=== PATIENT | male | born 1955 | race Caucasian/White ===

== ENCOUNTER 2023-04-18 01:59 | Emergency (ER) | payer MEDICARE, BC, SELFPAY ==
[2023-04-18] VITALS (46 sets, daily range): BP systolic 96–263; BP diastolic 54–153; PULSE 64–107; RESP 8–27; TEMP 36.2; O2SAT 81–100
--- NOTE | 2023-04-18 01:45 | RT.EKG_ITS ---
APPROVED REPORT Exam: Resting ECG Reason for Exam: vomiting Patient Location: E HR:101 bpm ECG Measurements Heart Rate 101 AXIS MN 156 P -4 QRSd 182 QRS -51 QT 424 T -24 QTc 551 Conclusion Sinus tachycardia...rate> 99 Probable left atrial enlargement...P >50mS, <-0.10mV V1 RBBB and LAFB...QRSd >120mS, axis(-40,240) Inferior infarct, old...Q >35mS, II III aVF No ST segment or T wave abnormalities to suggest occlusive FL
[2023-04-18] MEDS: Labetalol 100 MG/20 ML VIAL 10 MG IVP ×2 (02:15→02:25)
--- NOTE | 2023-04-18 02:21 | W.ED.GENAD ---
Discharge Plan Disposition Patient Disposition: Transfer-Acute Inpatient Care Specific Acute Inpt Facility: [facility] Condition: Critical Discharge Details Clinical Impression: Hypertensive emergency, Endotracheally intubated, Vertigo, Intracranial bleed Primary Care Provider: None,None ED Provider: Nayana Garnica General Mode of arrival: ambulatory. Date/Time Provider Initiated Documentation: 04/18/23 02:10. Limitations to Documentation: no limitations. Information obtained by: patient and EMS. HPI Narrative: 67yo M denies prior medical history has not seen a doctor in years present via EMS for nausea, vomiting and vertigo. Normal when he went to bed. Woke up with the room spinning, vomiting, unable to walk. Mild headache. No chest pain, shortness of breath, LE edema, numbness, tingling, weakness, or other concerns. Related Data Allergies Allergy/AdvReac Type Severity Reaction Status Date / Time No Known Allergies Allergy Unverified 04/18/23 03:23 General Stated Complaint: Dizzy/Sync BRYN: 2 Review of Systems Narrative: see HPI Exam Narrative Exam Narrative: General: Alert, vomiting. Head: Normocephalic, atraumatic Neck: Trachea midline, ?Neck supple. ENT: ?MMM.? Cardiac: ?RRR, no murmurs appreciated Resp: No respiratory distress. CTAB. Abd: ?Soft, non-distended, nontender Extremities: ?No deformities.? No peripheral edema. Neuro: ? GCS 15.? PERRL.? EOMI. + nystagums. ? Fluent speech, no dysarthria. Motor- 5/5 strength symmetric bilateral upper extremities. 5/5 RLE. 3/5 LLE. Sensation- ?Intact to light touch and symmetric multiple dermatomes including upper and lower extremities Coordination- + dysmetria on finger to nose on right. CRANIAL NERVES: II: Pupils equal and reactive, III, IV, : EOM intact, no gaze preference or deviation, + nystagmus. V: normal sensation in V1, V2, and V3 segments bilaterally VII: no asymmetry, no nasolabial fold flattening VIII: normal hearing to speech IX, X: normal palatal elevation, no uvular deviation XI: 5/5 head turn and 5/5 shoulder shrug bilaterally XII: midline tongue protrusion Course Vital Signs Vital signs: Vital Signs Temperature 36.2 C L 04/18/23 02:09 Pulse 100 H 04/18/23 02:09 Respiratory Rate 20 04/18/23 02:09 Blood Pressure 230/140 H 04/18/23 02:09 Pulse Oximetry 100 04/18/23 02:09 Temperature 36.2 C L 04/18/23 02:09 Pulse 100 H 04/18/23 02:09 Respiratory Rate 20 04/18/23 02:09 Respiratory Effort Normal, Non-Labored 04/18/23 02:15 Blood Pressure 230/140 H 04/18/23 02:09 Pulse Oximetry 100 04/18/23 02:09 Oxygen Delivery Method Room Air 04/18/23 02:09 Oxygen Flow Rate 0 04/18/23 02:09 Procedures Intubation Time out performed: Yes sedative: other (propofol) Mg Given: 200 paralytic: Succinylcholine Mg Given: 150 Laryngoscope: fiberoptic video scope ET Tube Size: 8 Tube Secured Depth (cm): 22 Tube Secured Location: teeth Tube Placement Confirmation: visualized tube passing through cords, equal breath sounds bilaterally, no breath sounds over epigastrum and confirmation by capnometry Patient Tolerated Procedure: well Intubation Complications: hypoxia Additional Comments: 100mcg fentanyl and 150mg lidocaine given 3 minutes prior to intubation Medical Decision Making 67yo M denies prior medical history has not seen a doctor in years present via EMS for nausea, vomiting and vertigo. Normal when he went to bed at 9pm, no recent trauma. Neuro exam performed while nursing obtained IV access. Markedly hypertensive on arrival 230/140, dysmteria on right on exam with LLE weakness (patient reports this leg is weaker at baseline). High suspicion for posterior stroke; stroke alert activated. No CI for TPA aside from BP; given 10mg IV labatelol and taken to CT with 15 minutes of arrival accompanied by this physician. Plan to start cardene drip if necessary upon completion of CT. Non-con CT with large intracranial hemmoraghe on my view. Given additional 10mg IV labatelol while in CT. Imaging pushed to [facility] and [facility] consult called prior to CTA; pt then completed CTA within 30 minutes of arrival. BP remained unacceptably high, given 20mg IV nicardipene and started on gtt with good effect, BP subsequently at goal SBP <140. HOB maintained at [address] non-con discussed with [facility] reading radiologist; right cerebellar bleed, into ventricle causing moderate hydrocephalus. -Labs reviewed as below, CBC with no actionable abnormalities, CMP with K of 2.6 (IV repletion ordered), hyperglycemia with glucose 197 (suspect undiagnosed DM). Tropoonin 87. -EKG on arrival, no ST segment or T wave abnormalities to suggest occlusive FL. -Repeat neuro exam stable, continued dysmetria, remains alert. -CTA discussed with reading [facility] radiologist; no clear aneurysm identified. -Called [facility] to verify imaging successfully transferred, awaiting consult. 0330 Patient more somnolent but arousable to touch, follows commands, slightly slurred speech. GCS 13 (E3 V4 M6). PERRL. O2 sat high 80's on room air, placed on 2L NC with improvement to mid 90's/ 0340 Awaiting callback from [facility]; imaging pushed to [facility] and [facility] consult placed; awaiting callback. 0350 Discussed with neuro ICU and neurosurgery at [facility]; accepted. [facility] not flying 2/t wind; [facility] ground not available. [facility] agreed to take patient via ground. On reassessment patient more confused, does follow commands with much prompting (asking loudly 5-6 times) no longer oriented. GCS remains 13 however given clinical deterioration concerning for further worsening en route. I am concerned that he may require intubation en route; much safer to perform under controlled conditions in the ED. I do not believe he is stable for transport without intubation at this time; discussed with family at bedside and decision made to intubate. Pre-intubation neuro exam patient follow commands with aggressive prompting, confused, mildly agitated, PERRL, moving all 4 extremities. Lidocaine/fentanyl 3 minutes prior to intubation. Propofol/sux for induction, propofol post sedation. Brief desat to 78% during intubation, increased to 90+% within one minute. Post intubation CXR reviewed, appropriately placed ETT on my view. Initial vent settings 100%FIO2, PIP 22 PEEP 5 RR 12. Weaned off nicardipne and maintained BP & sedation with propofol. [facility] regarding change in [facility] condition[facility]. I discussed with at bedside severity of patient's condition, guarded prognoisis, and potential for deterioration, , and permanent deficits should he survive. Transported to [facility] via [employer]. Lab Data Lab results reviewed: Yes I reviewed the patient's lab results. Labs: Laboratory Tests Range/Units 04/18/23 02:10 WBC (4.4-10.8) 10^3/uL 12.53 H RBC (4.36-5.78) 10^6/uL 5.16 Hgb (13.5-17.5) g/dL 15.6 Hct (40.0-50.0) % 46.5 MCV (80-95) fL 90 MCH (27.0-33.0) pg 30.2 MCHC (32.0-36.0) % 33.5 RDW (11.8-14.1) % 13.2 Plt Count (130-400) 10^3/uL 215 MPV (8.0-11.0) fL 10.4 Immature Gran % 0.4 Neutrophils % 73.0 Lymphocytes % 16.4 Monocytes % 7.9 Eosinophils % 1.6 Basophils % 0.7 Nucleated RBC % (0.0-0.3) % 0.0 Absolute Neutrophils (1.2-6.7) 10^3/uL 9.15 H Absolute Lymphocytes (1.2-3.4) 10^3/uL 2.05 Absolute Monocytes (0.1-0.8) 10^3/uL 0.99 H Absolute Eosinophils (0.0-0.7) 10^3/uL 0.20 Absolute Basophils (0.0-0.2) 10^3/uL 0.09 APTT (23.6-32.8) sec 27.4 Sodium (136-145) mmol/L 138 Potassium (3.5-5.1) mmol/L 2.6 L* Chloride (98-107) mmol/L 98 Carbon Dioxide (21.0-32.0) mmol/L 28.0 Anion Gap (3-11) mmol/L 12.0 H BUN (7-18) mg/dL 14 Creatinine (0.70-1.30) mg/dL 1.2 Est GFR (CKD-EPI 2020) (mL/min/1.73m2) 67.11 Glucose (74-106) mg/dL 197 H Calcium (8.5-10.1) mg/dL 9.6 Total Bilirubin (0.2-1.0) mg/dL 0.5 AST (15-37) U/L 35 ALT (16-63) U/L 34 Alkaline Phosphatase (46-116) U/L 83 Total Protein (6.4-8.2) g/dL 9.5 H Albumin (3.4-5.0) g/dL 3.6 Ethyl Alcohol (<10) mg/dL 3.1 Quality:SDPA Health Related Social Needs: No Data to Display Critical Care Time Critical Care Time Critical Care Time: Yes Total Critical Care Time: 90 Attestation: Due to a high probability of clinically significant, life threatening deterioration, the patient required my highest level of preparedness to intervene emergently and I personally spent this critical care time directly and personally managing the patient. This critical care time included obtaining a history; examining the patient; pulse oximetry; ordering and review of studies; arranging urgent treatment with development of a management plan; evaluation of patient's response to treatment; frequent reassessment; and, discussions with other providers. This critical care time was performed to assess and manage the high probability of imminent, life-threatening deterioration that could result in multi-organ failure. It was exclusive of separately billable procedures [facility] All Active Problems (Updated 04/18/23 @ 05:25 by Nayana Garnica MD) Intracranial bleed (Acute) Vertigo (Acute) Endotracheally intubated (Acute) Hypertensive emergency (Acute) Social History Smoking/Tobacco Use Status: Never Smoking risk assessment performed?: Yes Alcohol Intake: current Alcohol Intake frequency: 3 or more drinks per day Alcohol type: beer and hard liquor Substance use type: does not use Housing: house
[2023-04-18 02:29] LABS: Abs Immature Grans 0.05 10^3/uL (0.0-0.06); Absolute Basophil Count 0.09 10^3/uL (0.0-0.2); Absolute Lymphocyte Count 2.05 10^3/uL (1.2-3.4); Absolute Monocyte Count 0.99 10^3/uL (0.1-0.8); Absolute Neutrophil Count 9.15 10^3/uL (1.2-6.7); Basophils % 0.7; Eosinophils % 1.6; HCT 46.5 % (40.0-50.0); HGB 15.6 g/dL (13.5-17.5); Immature Grans % 0.4; Lymphocytes % 16.4; MCH 30.2 pg (27.0-33.0); MCHC 33.5 % (32.0-36.0); MCV 90 fL (80-95); MPV 10.4 fL (8.0-11.0); Monocytes % 7.9; Platelet Count 215 10^3/uL (130-400); RBC 5.16 10^6/uL (4.36-5.78); RDW 13.2 % (11.8-14.1); WBC 12.53 10^3/uL (4.4-10.8)
[2023-04-18 02:34] LABS: ETHANOL BLOOD 3.1 mg/dL (<10)
[2023-04-18 02:37] LABS: ALT 34 U/L (16-63); AST 35 U/L (15-37); Albumin 3.6 g/dL (3.4-5.0); Alkaline Phosphatase 83 U/L (46-116); BUN 14 mg/dL (7-18); Bilirubin, Total 0.5 mg/dL (0.2-1.0); CREATININE 1.2 mg/dL (0.70-1.30); Calcium 9.6 mg/dL (8.5-10.1); Chloride 98 mmol/L (98-107); Estimated GFR 67.11 (mL/min/1.73m2); Glucose 197 mg/dL (74-106); Sodium 138 mmol/L (136-145); Total Protein 9.5 g/dL (6.4-8.2)
[2023-04-18 02:38] LABS: Potassium 2.6 mmol/L (3.5-5.1)
[2023-04-18 02:40] LABS: PTT Activated 27.4 sec (23.6-32.8)
[2023-04-18] MEDS: niCARdipine 25 MG in Normal Saline 240 ML 50 MG IV (02:45)
--- NOTE | 2023-04-18 02:50 | DI.[facility]AD_ITS ---
Addendum created by Kb Roach MD on 04/18/2023 2:51:30 AM EDT: THIS REPORT CONTAINS FINDINGS THAT MAY BE CRITICAL TO PATIENT CARE. The findings were verbally communicated via telephone conference with DOLORES BLACKWOOD at 2:51 AM EDT on 04/18/2023. The findings were acknowledged and understood. Initial report created on 04/18/2023 2:50:40 AM EDT: PROCEDURE INFORMATION: Exam: CT Head Without Contrast Exam date and time: 04/18/2023 2:18 AM Age: 67 years old Clinical indication: Stroke-like symptoms; Other: Veritgo n/v dysmetria lle weakness; Additional info: Patient moved during exam, best images possible TECHNIQUE: Imaging protocol: Computed tomography of the head without contrast. Radiation optimization: All CT scans at this facility use at least one of these dose optimization techniques: automated exposure control; mA and/or kV adjustment per patient size (includes targeted exams where dose is matched to clinical indication); or iterative reconstruction. Other technique: STROKE PROTOCOL was implemented. COMPARISON: No relevant prior studies available. FINDINGS: Brain: 2.5 cm acute intraparenchymal hematoma centered over the mid right cerebellar hemisphere. Moderate degree of acute intraventricular hemorrhage and acute hydrocephalus. No midline shift. Foster-white matter differentiation is preserved. Cerebral ventricles: See Brain finding. Paranasal sinuses: Unremarkable. No fluid levels. Mastoid air cells: Unremarkable. Bones/joints: No acute calvarial fracture. Soft tissues: Scalp soft tissues are unremarkable. IMPRESSION: 1. 2.5 cm acute intraparenchymal hematoma centered over the mid right cerebellar hemisphere. Recommend neurosurgery consultation. 2. Moderate degree of acute intraventricular hemorrhage and acute hydrocephalus. Dictated and Authenticated by: Kb Roach MD. Ordering:ANN MARIE Kraus MD
[2023-04-18] MEDS: Omnipaque 350 MG/ML 100 ML BTL IJ (02:56)
[2023-04-18] MEDS: POTASSIUM CHLORIDE 20 MEQ/100 ML BAG 50 MEQ IVPB (02:59)
[2023-04-18] MEDS: Normal Saline - Diluent 50 ML VIAL IJ (03:01)
[2023-04-18] MEDS: Normal Saline Flush 10 ML SYR IVP (03:03)
--- NOTE | 2023-04-18 03:04 | DI.CT_ITS ---
Exam(s) CT BRAIN NECK CTA EXAM: CT BRAIN NECK CTA CLINICAL HISTORY: veritgo N/V dysmetria LLE weakness. TECHNIQUE: Imaging Protocol: Axial CT angiography was performed with multi-slice acquisition and mu lti-planar and/or 3D reconstructions. CONTRAST MATERIAL: Intravenous: Omnipaque 350 Contrast volume:structured data in ml COMPARISON: No exams were available for comparison FINDINGS: CTA Neck W: Submitted images are of limited exam with inadequate arterial phase enhancement of the arteries. Del ayed phase acquisition was obtained. Interpretation below is therefore from delayed images Aortic arch anatomy: Cannot comment Anterior circulation: Cannot comment Posterior circulation: Can not comment on the vertebral arteries in the lower neck Both vertebral arteries appear to contribute to the formation of the basilar artery at the skull base . CTA Brain W: Anterior circulation: Both internal carotid arteries are patent in the skull base-carotid canals as well as within the cave rnous sinuses. The supraclinoid aspects of the ICAs are patent. Both A1 segments are patent as are the anterior cer ebral arteries and there is no evidence of obvious aneurysm at the level of the anterior communicatin g artery. Both middle cerebral arteries are patent with no evidence of significant stenosis nor intraluminal th rombus. There also no obvious aneurysms of these vessels. Posterior circulation: Basilar artery ascends with normal luminal diameter. Distally it terminates as patent posterior cerebral arteries. There is no evidence of obvious aneurysm at the tip of the basilar artery. CT BRAIN: As described on the noninfused study there is a 2.5 x 2.5 cm acute intracranial hemorrhage in the med ial aspect of the right cerebellar hemisphere with dissection of blood into the 4th ventricle, aquedu ct of Sylvius, 3rd ventricle, through the foramina of Monro and into the frontal horns of the lateral ventricles. There is symmetrical hydrocephalus. No shift of midline structures.. There are no ring enhancing lesions in the brain. There is no obvious vascular malformation. IMPRESSION: 1. Limited study due to suboptimal arterial bolus timing. 2. Acute right-sided cerebellar hemorrhage with dissection into the ventricular system and hydroceph alus 3. No obvious intracranial aneurysm nor obvious intracranial vascular malformation evident. First read by [facility]. RADIATION DOSE DELIVERED: Total DLP DATA REPOSITORY: All CT scans at this facility are submitted to the National Radiology Data Registry (NRDR) Dose Index Registry (DIR) with the [employer] (ACR). RADIATION OPTIMIZATION: All CT scans at this facility use at least one of these dose optimization te chniques: automated exposure control; mA and/or kV adjustment per patient size (includes targeted exa ms where dose is matched to clinical indication); or iterative reconstruction.
--- NOTE | 2023-04-18 03:05 | DI.CT_ITS ---
Exam(s) CT HEAD - STROKE PROTOCOL EXAM: CT HEAD - STROKE PROTOCOL CLINICAL HISTORY: veritgo N/V dysmetria LLE weakness. TECHNIQUE: Imaging Protocol: Axial computed tomography images with coronal and sagittal reformatted images were created and reviewed COMPARISON: No exams were available for comparison FINDINGS: There are no skull fractures. There is no significant fluid in the visualized paranasal sinuses. There is an area of acute hemorrhage in the medial aspect of the right cerebellar hemisphere which me asures 0.5 by 2.4 x 2.5 cm and which dissects into the adjacent 4th ventricle and is also seen within the aqueduct of Sylvius, 3rd ventricle and both lateral ventricles. There is mild symmetrical hydro cephalus. No shift of midline structures. IMPRESSION: Acute intra-axial hemorrhage in the right cerebellar hemisphere with dissection of blood into the ilsa tricular system with moderate amount of acute intraventricular hemorrhage and symmetrical hydrocephal us. First read by [facility]. RADIATION DOSE DELIVERED: Total DLP DATA REPOSITORY: All CT scans at this facility are submitted to the National Radiology Data Registry (NRDR) Dose Index Registry (DIR) with the [employer] (ACR). RADIATION OPTIMIZATION: All CT scans at this facility use at least one of these dose optimization te chniques: automated exposure control; mA and/or kV adjustment per patient size (includes targeted exa ms where dose is matched to clinical indication); or iterative reconstruction.
--- NOTE | 2023-04-18 03:40 | DI.VRAD_ITS ---
Addendum created by Bentley Panchal MD on 04/18/2023 3:39:57 AM EDT: THIS REPORT CONTAINS FINDINGS THAT MAY BE CRITICAL TO PATIENT CARE. The findings were verbally communicated via telephone conference with DOLORES BLACKWOOD at 3:28 AM EDT on 04/18/2023. The findings were acknowledged and understood. Initial report created on 04/18/2023 3:39:28 AM EDT: PROCEDURE INFORMATION: Exam: CTA Head Without And With Contrast, Arteriography Exam date and time: 04/18/2023 2:24 AM Age: 67 years old Clinical indication: Stroke-like symptoms; Other: Veritgo n/v dysmetria lle weakness; Additional info: Redid non con head under cta order due to motion on first non con per doctors request TECHNIQUE: Imaging protocol: Computed tomographic angiography of the head without and with contrast. Exam focused on the arteries. 3D rendering (Not supervised by radiologist): MIP and/or 3D reconstructed images were created by the technologist. Radiation optimization: All CT scans at this facility use at least one of these dose optimization techniques: automated exposure control; mA and/or kV adjustment per patient size (includes targeted exams where dose is matched to clinical indication); or iterative reconstruction. Contrast material: [id number]; Contrast volume: 85 ml; Contrast route: INTRAVENOUS (IV); Other technique: STROKE PROTOCOL was implemented. COMPARISON: CT HEAD - STROKE PROTOCOL 04/18/2023 2:18 AM FINDINGS: The anticipated arterial phase acquisition is limited, without early contrast opacification of the arteries. A prompt delayed phase acquisition is obtained, with some diagnostic information about the arteries available. An aneurysm is not observed. The anterior communicating artery site is well-visualized on coronal image 42 series 25, and is distant from the intracranial hemorrhage. There is no aneurysm identified at this site. The internal carotid artery termini appear intact, and no aneurysms are observed in the anterior circulation. Moderate plaque is observed in the distal internal carotid arteries. The basilar terminus appears intact, as visualized. The basilar terminus is from the hemorrhage in the 3rd ventricle/hypothalamus. See sales representative leather goods delayed coronal image 51 series 25. Moderate calcifications are present in the distal vertebral arteries bilaterally, and intracranial stenosis is likely. There is no evidence of aneurysm in the posterior circulation on the limited exam. Acute intracranial hemorrhage is present. The hemorrhage is similar to the earlier noncontrast head CT. The hemorrhage is primarily intraventricular, greatest in the 3rd and 4th ventricles, extending into the frontal horns of the lateral ventricles. There is minimal hemorrhage in the occipital horns of the lateral ventricles. The lateral ventricles are mildly distended. The hemorrhage involves the right cerebellar hemisphere; see axial image 43 series 19. Hemorrhage extends through the foramina of Luschka bilaterally. There is minimal subarachnoid hemorrhage. No hemorrhage is appreciated in the interpeduncular cistern. IMPRESSION: 1. Limited exam. 2. Acute intraventricular hemorrhage. 3. Hemorrhage involves the right cerebellum. 4. Early obstructive hydrocephalus. 5. Minimal subarachnoid hemorrhage. 6. No intracranial aneurysm observed. ASSESSMENT: ASPECTS (Isabel Stroke Program Early CT Score) is 10. PROCEDURE INFORMATION: Exam: CTA Neck Without And With Contrast Exam date and time: 04/18/2023 2:24 AM Age: 67 years old Clinical indication: Stroke-like symptoms; Other: Veritgo n/v dysmetria lle weakness; Additional info: Redid non con head under cta order due to motion on first non con per doctors request TECHNIQUE: Imaging protocol: Computed tomographic angiography of the neck without and with contrast. Exam focused on the cervical segments of the vasculature. 3D rendering (Not supervised by radiologist): MIP and/or 3D reconstructed images were created by the technologist. Radiation optimization: All CT scans at this facility use at least one of these dose optimization techniques: automated exposure control; mA and/or kV adjustment per patient size (includes targeted exams where dose is matched to clinical indication); or iterative reconstruction. Contrast material: [id number]; Contrast volume: 85 ml; Contrast route: INTRAVENOUS (IV); COMPARISON: CT HEAD - STROKE PROTOCOL 04/18/2023 2:18 AM FINDINGS: There is minimal arterial contrast, limiting evaluation of the carotid and vertebral arteries. Contrast reflux into the left internal and external jugular veins is observed. Severe stenosis at the left brachiocephalic vein is observed. The aortic arch is mildly aneurysmal, 4.9 cm. Moderate degenerative changes are present in the cervical spine. There is no anterolisthesis or retrolisthesis in the cervical spine. IMPRESSION: 1. Limited evaluation of the carotid and vertebral arteries in the neck. 2. Aneurysmal thoracic aorta. REFERENCES: NASCET CRITERIA. The degree of stenosis in the cervical segment of the internal carotid artery is based on NASCET criteria. Normal is no stenosis. Mild is less than 50% stenosis. Moderate is 50-69% stenosis. Severe is 70% to 99% stenosis. Total occlusion is no detectable patent lumen. Dictated and Authenticated by: Bentley Panchal MD. Ordering:ANN MARIE Kraus MD
[2023-04-18 03:42] LABS: Source Nasopharynx
[2023-04-18 03:53] LABS: Troponin I 87 ng/L (< or =60)
[2023-04-18 04:14] LABS: COVID-19 PCR Negative (Negative)
[2023-04-18] MEDS: fentaNYL 250 MCG/5 ML VIAL (04:15)
[2023-04-18] MEDS: Succinylcholine 100 MG/5 ML SYR 150 MG (04:18)
[2023-04-18] MEDS: Propofol 200 MG/20 ML VIAL (04:18)
[2023-04-18] MEDS: PROPOFOL 1,000 MG/100 ML BTL 10 MG (04:25)
[2023-04-18] MEDS: PROPOFOL 1,000 MG/100 ML BTL 15 MG (04:45)
--- NOTE | 2023-04-18 04:48 | DI.RAD_ITS ---
Exam(s) XR PORTABLE CHEST AP EXAM: XR PORTABLE CHEST AP CLINICAL HISTORY: post line. TECHNIQUE: 2D digital imaging was performed. COMPARISON: No exams were available for comparison FINDINGS: Single AP portable view. The distal tip of the endotracheal tube is above the nichole in satisfactory position. Heart size is upper normal. The mediastinum is not widened. There is infiltrate in left lower lobe-retrocardiac region. Platelike atelectasis in the mid right l ravin. No obvious pleural effusions.. IMPRESSION: Significant left lower lobe infiltrate. ET tube is in satisfactory position. DATA REPOSITORY: RADIATION DOSE DELIVERED:
--- NOTE | 2023-04-18 06:29 | DI.VRAD_ITS ---
PROCEDURE INFORMATION: Exam: XR Chest Exam date and time: 04/18/2023 4:41 AM Age: 67 years old Clinical indication: Device placement; Patient HX: Post line intubation TECHNIQUE: Imaging protocol: Radiologic exam of the chest. Views: 1 view. COMPARISON: No relevant prior studies are available for comparison. FINDINGS: Tubes, catheters and devices: Endotracheal tube terminates approximately 1.5 cm above the nichole. Lungs: Mild pulmonary vascular congestion. Low lung volumes with areas of atelectasis. Left retrocardiac opacity. Pleural spaces: No large pleural effusion seen. Heart/Mediastinum: Enlarged cardiac silhouette. Bones/joints: Grossly unremarkable. IMPRESSION: 1. Endotracheal tube as above. 2. Left retrocardiac opacity, may reflect atelectasis or infection. Follow-up as clinically warranted. 3. Additional findings as above. Dictated and Authenticated by: Yoly Ley MD. Ordering:ANN MARIE Kraus MD
--- NOTE | 2023-04-18 07:51 | NUR.NOTE ---
Accessed pt chart to check his medication orders for the Pharmacy. Nursing Note:
--- NOTE | 2023-04-18 08:35 | NUR.NOTE ---
Pt suffering a hemorrhagic stroke and deteriorating, RSI was requested and initiated by the provider, verbal orders given for Nicardipine boluses as well as Fentanyl Lidocaine propofol and succinylcholine, upon return from [place] [facility] the medication orders were not placedand can not be documented at this time, TICO
== END 2023-04-18 05:09 | disposition short-term general hospital (02) ==
PROVIDERS: Emergency Provider Student in an Organized Health Care Education/Training Program
DX: I16.1 Hypertensive emergency (principal); I10 Essential (primary) hypertension; I61.9 Nontraumatic intracerebral hemorrhage, unspecified; G91.8 Other hydrocephalus; R42 Dizziness and giddiness; Z11.52 Encounter for screening for COVID-19
CPT/HCPCS: 31500; 70496; 70498; 80053; 82962; 87635; 93005; 96365; 96366; 96375; 96376; 99291; 70450; 71045; 80320; 84484; 85025; 85730; 93010; J0330; J1920; J2003; J2404; J2704; J3010; J3480; J3490

== ENCOUNTER → 2023-06-28 10:00 | Outpatient (BNVA) | payer MEDICARE, BC, SELFPAY | PROVIDERS: PCP Student in an Organized Health Care Education/Training Program; Referring Provider Student in an Organized Health Care Education/Training Program; Visit Provider Nurse Practitioner Gerontology | DX: R33.8 Other retention of urine (principal) | CPT/HCPCS: 99215 ==

== ENCOUNTER → 2023-07-17 13:55 | Outpatient (BNVA) | payer MEDICARE, BC, SELFPAY | PROVIDERS: PCP Student in an Organized Health Care Education/Training Program; Referring Provider Student in an Organized Health Care Education/Training Program; Visit Provider Urology | DX: Z46.6 Encounter for fitting and adjustment of urinary device (principal); R33.8 Other retention of urine | CPT/HCPCS: 51702 ==

== ENCOUNTER 2023-08-11 14:19 | Emergency (ER) | payer MEDICARE, BC, SELFPAY ==
[2023-08-11 14:23] VITALS: BP 139/96; PULSE 95; RESP 18; TEMP 37; O2SAT 98
--- NOTE | 2023-08-11 14:45 | RT.EKG_ITS ---
APPROVED REPORT Exam: Resting ECG Reason for Exam: Agitation Patient Location: E HR:72 bpm ECG Measurements Heart Rate 72 AXIS DE 223 P -13 QRSd 172 QRS -5 QT 452 T -10 QTc 496 Conclusion Sinus rhythm...normal P axis, V-rate 60- 99 Prolonged DE interval...DE >220, V-rate 50- 90 Right bundle branch block...QRSd>120, terminal axis(90,270) Inferior infarct, old...Q >35mS, II III aVF normal sinus rhythm at a rate of 72 with right bundle branch block and left axis deviation?bifas cicular block. Left chest wall T wave inversions appear similar to prior dated earlier this year. N o acute injury pattern.
--- NOTE | 2023-08-11 14:53 | ED.GENADUL_ITS ---
Discharge Plan Disposition Patient Disposition: Home Discharge Details Clinical Impression: Agitation, Acute UTI Primary Care Provider: Brien Phillips ED Provider: Narciso Abraham Home Meds and New Rx's Prescriptions: New cefpodoxime 200 mg tablet 200 mg PO Q12H 10 Days Qty: 20 0RF Rx Instructions: must administer with a meal/food Continued meclizine 12.5 mg tablet 12.5 mg PO TID PRN melatonin 3 mg capsule 3 mg PO HS PRN trazodone 50 mg tablet 50 mg PO DAILY bisacodyl 10 mg suppository 10 mg IA DAILY PRN amlodipine 10 mg tablet 10 mg PO DAILY thiamine HCl (vitamin B1) 100 mg tablet 100 mg PO DAILY clonidine HCl 0.2 mg tablet 0.2 mg PO TID polyethylene glycol 3350 [Miralax] 17 gram/dose powder 17 g PO DAILY sennosides-docusate sodium [Senna with Docusate Sodium] 8.6-50 mg tablet 1 tab-cap PO BID aspirin [Adult Low Dose Aspirin] 81 mg tablet,delayed release (DR/EC) 81 mg PO DAILY fluoxetine 20 mg capsule 20 mg PO DAILY terazosin 1 mg capsule 1 mg PO BID ergocalciferol (vitamin D2) 1,250 mcg (50,000 unit) capsule 1,250 mcg PO QWEEK oxybutynin chloride 5 mg tablet 5 - 10 mg PO TID PRN (Reason: bladder spasms) Qty: 60 0RF Discharge Instructions Instructions: Urinary Tract Infection, Adult ED Additional Instructions: You were seen in the emergency department for your increased agitation. You are receiving a prescription for antibiotics that you should take as you are found to have a urinary tract infection. If you develop increased agitation fevers or if you have any other concerns please return to the emergency department. Otherwise please follow-up with your primary care provider. Discharge Data Discharge Date/Time-TO BE ENTERED AT DEPARTURE: 08/11/23 19:55 HPI General Date/Time Provider Initiated Documentation: 08/11/23 14:40 . HPI Narrative: MDM This is an agitated altered 67-year-old DNI DNR male with history of right cerebral intraparenchymal hemorrhage and descending aortic aneurysm concerning for recurrent intraparenchymal hemorrhage versus dissection versus arrhythmia. Will also assess for UTI with urinalysis. Patient's vitals are not consistent with sepsis so I did not order blood cultures check a lactate nor treat empirically with broad-spectrum antibiotics. UTI it is certainly a possibility so we will obtain urinalysis. No fevers to suggest encephalitis. No nuchal rigidity to suggest meningitis I do not feel that the patient requires a lumbar puncture. No tonic-clonic activity to suggest CVA. No vomiting to suggest acute electrolyte abnormalities. Patient is not currently drinking so my suspicion is low for Warnicke's encephalopathy. Not tachycardic nor hypotensive to suggest tamponade. Patient was markedly agitated at the time of his arrival in the emergency department. He received 5 mg of intramuscular haloperidol and 2 mg of intramuscular midazolam to facilitate evaluation. I had previously attempted to give him oral lorazepam which he spit out. He is on outpatient quetiapine. Patient became more calm and ECG was able to be obtained. 4:34 PM Patient metabolic panel showing OVI. No anion gap normal bicarbonate??not consistent with DKA. CBC with mild normocytic anemia. No leukocytosis. No thrombocytopenia negative troponin. Urinalysis with positive nitrites small leuk esterase consistent with UTI for which patient will receive 1 g of ceftriaxone. Creatinine from [facility] [place] July 31, 2023 was 1.72. As a result I am not concerned for OVI. I ordered the patient's quetiapine. 7:20 PM I spoke with Dr. Humble Gaviria from vascular at [facility]. She reviewed the patient's CT scan and reported that looked similar to prior. Neurology advised management of UTI. I met with the patient and his . reported that he was more calm and that she and he both wanted to be discharged. I advised that I spoke with Dr. Serrato who agreed to accept the patient for hospitalization. Patient and his withdrew consent for care and requested to be discharged. Patient had received her vaccine in the emergency department. Will provide 1 p.o. tablet of cefpodoxime for tomorrow and send with a prescription of cefpodoxime for 10 days. I advised patient and his to return for any fevers syncope or increased aggressive behavior. Patient was calm cooperative and reportedly at baseline per on reassessment. Chronic conditions affecting the care of the patient: Altered mental status History obtained from an outside historian: Patient's External record review: [facility] E[place] Diagnostic interpretations performed by me: Per my independent interpretation chest x-ray shows: Per my independent interpretation EKG shows: normal sinus rhythm at a rate of 72 with right bundle branch block and left axis deviation??bifascicular block. Left chest wall T wave inversions appear similar to prior dated earlier this year. No acute injury pattern. ]Medications: Haloperidol midazolam Social determinants of health affecting disposition: N/A Management discussed with: Dr. Serrato, vascular Treatment/interventions considered: Hospitalization but deferred based on patient preference Response to therapies provided: Improved agitation in the ED HPI This is a 67-year-old male with history of descending aortic aneurysm and intraparenchymal hemorrhage prior UTIs arrived to the emergency department with his via private vehicle in the setting of behavioral changes. Patient was hospitalized for 30 days this spring at [facility]. He has been home for approximately 1 month. In the past 4 days she has been increasingly agitated. He became delirious intermittently at [facility]. He takes 25 mg outpatient qu etiapine. His Rebolledo is due to be changed in 6 days. He does not participate in history gathering. reports that he generally is not aware of the year. Exam General: Chronically ill-appearing in no acute distress speaking in complete sentences. Head: Normocephalic, atraumatic. Eye:[Pupils equal, round reactive to light.] Extraocular eye movements intact. No conjunctival injection. No scleral icterus. Ear, nose, mouth, throat: Grossly normal inspection. Normal voice, handling secretions normally. Neck: Trachea midline. Cardiovascular: Well-perfused distal extremities. Respiratory: Nonlabored respiration. Gastrointestinal: Nondistended abdomen. Musculoskeletal: No edema. Moving all 4 extremities spontaneously. Skin: Normal for age and race, grossly normal temperature and turgor. No acute rash. Neurologic: Alert to person but not place or time. Does not participate in neurological assessment. Psychiatric: Intermittently agitated. Not cooperative with care. Related Data Home Medications Medication Instructions Recorded Confirmed amlodipine 10 mg tablet 10 mg PO DAILY 06/22/23 08/11/23 aspirin 81 mg tablet,delayed 81 mg PO DAILY 06/22/23 08/11/23 release (Adult Low Dose Aspirin) bisacodyl 10 mg rectal suppository 10 mg IA DAILY PRN 06/22/23 08/11/23 clonidine HCl 0.2 mg tablet 0.2 mg PO TID 06/22/23 08/11/23 ergocalciferol (vitamin D2) 1,250 1,250 mcg PO QWEEK 06/22/23 08/11/23 mcg (50,000 unit) capsule fluoxetine 20 mg capsule 20 mg PO DAILY 06/22/23 08/11/23 polyethylene glycol 3350 17 17 g PO DAILY 06/22/23 08/11/23 gram/dose oral powder (Miralax) sennosides 8.6 mg-docusate sodium 1 tab-cap PO BID 06/22/23 08/11/23 50 mg tablet (Senna with Docusate Sodium) terazosin 1 mg capsule 1 mg PO BID 06/22/23 08/11/23 thiamine HCl (vitamin B1) 100 mg 100 mg PO DAILY 06/22/23 08/11/23 tablet meclizine 12.5 mg tablet 12.5 mg PO TID PRN 06/28/23 08/11/23 melatonin 3 mg capsule 3 mg PO HS PRN 06/28/23 08/11/23 trazodone 50 mg tablet 50 mg PO DAILY 06/28/23 08/11/23 oxybutynin chloride 5 mg tablet 5 - 10 mg (1 - 2 x 5 mg) PO TID 07/28/23 08/11/23 PRN bladder spasms #60 tabs cefpodoxime 200 mg tablet 200 mg PO Q12H 10 days #20 tabs 08/11/23 Previous Rx's Medication Instructions Recorded oxybutynin chloride 5 mg tablet 5 - 10 mg (1 - 2 x 5 mg) PO TID 07/28/23 PRN bladder spasms #60 tabs cefpodoxime 200 mg tablet 200 mg PO Q12H 10 days #20 tabs 08/11/23 Allergies Allergy/AdvReac Type Severity Reaction Status Date / Time No Known Allergies Allergy Unverified 08/11/23 14:26 General Stated Complaint: Urinary BRYN: 3 Course Vital Signs Vital signs: Vital Signs Temperature 37.0 C 08/11/23 14:23 Pulse 95 H 08/11/23 14:23 Respiratory Rate 18 08/11/23 14:23 Blood Pressure 139/96 H 08/11/23 14:23 Pulse Oximetry 98 08/11/23 14:23 Temperature 37.0 C 08/11/23 14:23 Temperature Source Skin 08/11/23 14:23 Pulse 95 H 08/11/23 14:23 Respiratory Rate 18 08/11/23 14:23 Respiratory Effort Normal 08/11/23 14:26 Blood Pressure 139/96 H 08/11/23 14:23 Blood Pressure Position Sitting 08/11/23 14:23 Pulse Oximetry 98 08/11/23 14:23 Oxygen Delivery Method Room Air 08/11/23 14:23 Oxygen Flow Rate 0 08/11/23 14:23 Medical Decision Making Quality:SDOH Health Related Social Needs: No Data to Display PFSH All Active Problems (Updated 08/11/23 @ 19:41 by Brandon Serrato) CVA (cerebral vascular accident) (Chronic) Acute dehydration (Acute) Dementia with behavioral disturbance (Chronic) Acute UTI (Acute) Agitation (Acute) Urinary retention (Chronic) Social History Smoking/Tobacco Use Status: Never Smoking risk assessment performed?: Yes Alcohol Intake: current Alcohol Intake frequency: 3 or more drinks per day Alcohol type: beer and hard liquor Substance use type: does not use Housing: house
[2023-08-11] MEDS: Haloperidol 5 MG/ML VIAL IM (15:22)
[2023-08-11] MEDS: Midazolam 2 MG/2 ML VIAL IM (15:22)
[2023-08-11 15:46] VITALS: BP 139/96; PULSE 95; RESP 18; TEMP 37; O2SAT 98
[2023-08-11 15:59] LABS: Abs Immature Grans 0.02 10^3/uL (0.0-0.06); Absolute Basophil Count 0.05 10^3/uL (0.0-0.2); Absolute Eosinophil Count 0.22 10^3/uL (0.0-0.7); Absolute Lymphocyte Count 0.91 10^3/uL (1.2-3.4); Absolute Monocyte Count 0.77 10^3/uL (0.1-0.8); Absolute Neutrophil Count 4.51 10^3/uL (1.2-6.7); Basophils % 0.8 %; Eosinophils % 3.4 %; HCT 32.7 % (40.0-50.0); HGB 11.1 g/dL (13.5-17.5); Immature Grans % 0.3 %; MCH 31.4 pg (27.0-33.0); MCHC 33.9 % (32.0-36.0); MCV 92 fL (80-95); MPV 10.4 fL (8.0-11.0); Monocytes % 11.9 %; Neutrophils % 69.6 %; Platelet Count 206 10^3/uL (130-400); RBC 3.54 10^6/uL (4.36-5.78); RDW 12.9 % (11.8-14.1); RDW-SD 43.8 fL; WBC 6.48 10^3/uL (4.4-10.8)
[2023-08-11 16:09] LABS: Anion Gap 10.9 mmol/L (3-11); BUN 12 mg/dL (7-18); CO2 24.1 mmol/L (21.0-32.0); CREATININE 1.9 mg/dL (0.70-1.30); Calcium 9.3 mg/dL (8.5-10.1); Chloride 97 mmol/L (98-107); Estimated GFR 38.66 (mL/min/1.73m2); Glucose 108 mg/dL (74-106); Sodium 132 mmol/L (136-145)
[2023-08-11 16:20] LABS: Troponin I < 50 ng/L (< or =60)
[2023-08-11 16:31] LABS: Bilirubin Negative (Negative); Blood Trace-intact (Negative); Clarity Clear (Clear); Glucose Negative (Negative); Ketones Trace mg/dL (Negative); Leukocyte Esterase Small (Negative); Nitrite Positive (Negative); Specific Gravity 1.015 (1.005-1.025); Urobilinogen 0.2 mg/dL (Up to 0.2)
[2023-08-11 16:46] LABS: C & S Indicated? Yes; WBC >50 HPF (0-5)
[2023-08-11] MEDS: Omnipaque 350 MG/ML 100 ML BTL IJ (16:49)
[2023-08-11] MEDS: Normal Saline - Diluent 50 ML VIAL IJ (16:50)
--- NOTE | 2023-08-11 16:51 | DI.CT_ITS ---
Exam(s) CT HEAD WO EXAM: CT HEAD WO CLINICAL HISTORY: Agitation confusion. TECHNIQUE: Imaging Protocol: Axial computed tomography images with coronal and sagittal reformatted images were created and reviewed COMPARISON: CT CT HEAD - STROKE PROTOCOL from 04/18/[address] BRAIN NECK CTA from 04/18/2023 FINDINGS: Ventricles and Extra axial spaces: Normal in size and morphology for the patient's age. Hemorrhage: There has been complete resolution of the patient's prior intracranial hemorrhage. No ac [place] hemorrhage is identified. Cerebral parenchyma: There is an area of decreased attenuation in the high left parietal lobe in the midline. This may represent an area of encephalomalacia. There is no mass effect. Possibility of a n acute infarct should be considered. There are areas of decreased attenuation in the white matter c onsistent with chronic microvascular ischemic disease. Midline shift: None. Brainstem/Cerebellum: Normal. Calvarium: Normal. There is a right frontal madeline hole. Visualized Paranasal sinuses/Mastoids: There is a fluid level in the left maxillary sinus. There is a small fluid level in the right sphenoid sinus. There is opacification of a few ethmoid air cells. Soft Tissues: Unremarkable. IMPRESSION: 1. New area of decreased attenuation along the midline in the high posterior left parietal lobe. Thi s may represent an area of an acute infarct. MRI should be considered for further evaluation. 2. Areas of decreased attenuation in the white matter consistent with chronic microvascular ischemic disease. 3. Complete resolution of the patient's prior intracranial hemorrhage. There is a right frontal madeline hole in place. No acute hemorrhage is identified. 4. Fluid levels in the visualized paranasal sinuses suggesting acute sinusitis. Please correlate cli nically. RADIATION DOSE DELIVERED: 808.01mGy.cm Total DLP DATA REPOSITORY: All CT scans at this facility are submitted to the National Radiology Data Registry (NRDR) Dose Index Registry (DIR) with the [employer] (ACR). RADIATION OPTIMIZATION: All CT scans at this facility use at least one of these dose optimization te chniques: automated exposure control; mA and/or kV adjustment per patient size (includes targeted exa ms where dose is matched to clinical indication); or iterative reconstruction.
--- NOTE | 2023-08-11 16:53 | DI.CT_ITS ---
Exam(s) CT THORAX ABD/PEL CTA EXAM: CT THORAX ABD/PEL CTA CLINICAL HISTORY: History of dissection. TECHNIQUE: Imaging Protocol: Axial CT angiography was performed with multi-slice acquisition and m ulti-planar and/or 3D reconstructions. CONTRAST MATERIAL: Intravenous: Omnipaque 350 contrast volume:100 mL Oral: No COMPARISON: CT CT BRAIN NECK CTA from 04/18/2023 FINDINGS: The examination is limited due to patient motion artifact. CHEST: Tracheobronchial tree: Patent where visualized. Pulmonary parenchyma: No consolidation or dominant measurable mass. Atelectatic changes are seen in t he lung bases. No focal consolidating infiltrates are present. Pulmonary Arteries: Due to patient motion, segmental and subsegmental pulmonary artery opacification is compromised. No large central pulmonary embolism is seen. Mediastinum and Liset: No dominant adenopathy or fluid collection. The esophagus is unremarkable. Visualized thyroid: Unremarkable. Pleura: No effusion or pneumothorax. Heart: Cardiomegaly. Mild coronary artery calcification is present. No pericardial effusion. Aorta: There is a dissection beginning in the mid descending thoracic aorta and extending into the co mmon iliac arteries. The celiac axis, superior mesenteric artery and right renal arteries arise from the true lumen. The left renal artery arises from the false lumen. Distally the dissection extends into the proximal right external iliac artery. Likewise,, on the left, the dissection extends into the left external iliac artery. Soft Tissues: Unremarkable. Bones: Within normal limits for the patient's age. ABDOMEN AND PELVIS: Abdomen: Celiac axis/mesenteric arteries: No evidence of occlusion or significant stenosis. Renal Arteries: No evidence of occlusion or significant stenosis. The left renal artery arises from the false lumen of the dissection as described above. Aorta: There is a continuation of the dissection from the distal descending thoracic aorta extending inferiorly into the iliac arteries as described above. The infrarenal abdominal aorta measures 3 x 2.9 cm. Pelvis: Iliac Arteries: The dissection extends into the iliac arteries as described above. It extends into both external iliac arteries. There is 50 percent narrowing of the left external iliac artery. Common Femoral Arteries: No evidence of occlusion or significant stenosis. Atherosclerotic calcific ation is present. ABDOMEN: Liver: Normal density. No measurable mass. Gallbladder and Biliary Tract: No radiodense calculus or dilation. Pancreas: Normal density, no abnormal calcifications or inflammatory process. Spleen: Normal. Adrenals: No masses seen. Kidneys: Normal size, contour and axis. No radiodense stones or obstructive uropathy. There are bilat eral renal cysts. No follow-up is recommended. Bowel: No obstruction or bowel wall thickening. There is a moderate amount of stool in the colon sugg esting constipation. No evidence of appendicitis. Peritoneal Cavity: No ascites, collection or mesenteric inflammatory response. No free air. Lymph Nodes: Within normal limits. Bones: Within normal limits for the patient's age. There is L5 spondylolysis and grade 1 spondylolis thesis of L5 on S1. Soft Tissues: Unremarkable. PELVIS: Bladder: Diffuse thickening of the wall of the urinary bladder. There is a catheter in place. There is a small focus of air in the urinary bladder likely reflecting recent catheterization. Reproductive Organs: Unremarkable as visualized. Lymph Nodes: Within normal limits. Bones: Within normal limits for the patient's age. IMPRESSION: 1. 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 The left renal artery arises from the false lumen. The re is 50 percent narrowing of the lumen of the left external iliac artery. 2. Within the limits of the examination, there is no evidence of a pulmonary embolism. 3. Diffuse thickening of the wall of the urinary bladder. This may be due to cystitis, chronic bladd er outlet obstruction or neurogenic bladder. There is a Rebolledo catheter in place. This likely accoun ts for the small focus of air within the urinary bladder. 4. The findings were discussed with Georges Reed at 5:15 p.m. on 08/11/2023. RADIATION DOSE DELIVERED: 1,380.24mGy.cm Total DLP DATA REPOSITORY: All CT scans at this facility are submitted to the National Radiology Data Registry (NRDR) Dose Index Registry (DIR) with the [employer] (ACR). RADIATION OPTIMIZATION: All CT scans at this facility use at least one of these dose optimization te chniques: automated exposure control; mA and/or kV adjustment per patient size (includes targeted exa ms where dose is matched to clinical indication); or iterative reconstruction.
[2023-08-11] MEDS: cefTRIAXone 1 GM/50 ML BAG IVPB (17:11)
[2023-08-11] MEDS: QUEtiapine 25 MG TAB PO (17:49)
--- NOTE | 2023-08-11 19:30 | HPE_ITS ---
Date of service: 08/11/23 Time of Service: 19:30 Assessment and Plan Assessment and plan (1) Acute UTI: Start date: 08/11/23 Status: Acute (2) Dementia with behavioral disturbance: Status: Chronic (3) Urinary retention: Status: Chronic (4) Acute dehydration: Start date: 08/11/23 Status: Acute (5) CVA (cerebral vascular accident): Status: Chronic Qualifiers: CVA mechanism: occlusion Precerebral and cerebral artery: posterior cerebral artery Laterality of affected vessel: left Qualified Code(s): I63.532 - Cerebral infarction due to unspecified occlusion or stenosis of left posterior cerebral artery History of Present Illness History of Present Illness Chief Complaint: Increased confusion and agitation with chronic dementia Narrative: This is a 67-year-old male patient lives with his brought him to the ED because of increased agitation with dementia and multiple vascular medical problems which appear to be stable. He does not appear to be having seizures but is slightly dehydrated with creatinine elevated from his baseline. He did respond to alcohol and Versed on presentation for his acute agitation and chronically does take Seroquel. He does have a probable acute UTI by urinalysis and cultures have been performed with patient receiving IV Rocephin. He also is on IV hydration and will be kept overnight for evaluation and follow-up on abnormal labs as well as urine culture with antibiotics to be adjusted infection. He may need to increase Seroquel for his agitation or the elbow take oral therapy. He is a DNR/DNI. [facility] All Active Problems (Updated 08/11/23 @ 19:41 by Brandon Serrato) CVA (cerebral vascular accident) (Chronic) Acute dehydration (Acute) Dementia with behavioral disturbance (Chronic) Acute UTI (Acute) Agitation (Acute) Urinary retention (Chronic) Social History Smoking/Tobacco Use Status: Never Smoking risk assessment performed?: Yes Alcohol Intake: current Alcohol Intake frequency: 3 or more drinks per day Alcohol type: beer and hard liquor Substance use type: does not use Housing: house Meds Allergies and Home Medications Allergies Allergy/AdvReac Type Severity Reaction Status Date / Time No Known Allergies Allergy Unverified 08/11/23 14:26 Home Medications Medication Instructions Recorded Confirmed Type amlodipine 10 mg tablet 10 mg PO DAILY 06/22/23 08/11/23 History aspirin 81 mg tablet,delayed 81 mg PO DAILY 06/22/23 08/11/23 History release (Adult Low Dose Aspirin) bisacodyl 10 mg rectal suppository 10 mg MA DAILY PRN 06/22/23 08/11/23 History clonidine HCl 0.2 mg tablet 0.2 mg PO TID 06/22/23 08/11/23 History ergocalciferol (vitamin D2) 1,250 1,250 mcg PO QWEEK 06/22/23 08/11/23 History mcg (50,000 unit) capsule fluoxetine 20 mg capsule 20 mg PO DAILY 06/22/23 08/11/23 History polyethylene glycol 3350 17 17 g PO DAILY 06/22/23 08/11/23 History gram/dose oral powder (Miralax) sennosides 8.6 mg-docusate sodium 1 tab-cap PO BID 06/22/23 08/11/23 History 50 mg tablet (Senna with Docusate Sodium) terazosin 1 mg capsule 1 mg PO BID 06/22/23 08/11/23 History thiamine HCl (vitamin B1) 100 mg 100 mg PO DAILY 06/22/23 08/11/23 History tablet meclizine 12.5 mg tablet 12.5 mg PO TID PRN 06/28/23 08/11/23 History melatonin 3 mg capsule 3 mg PO HS PRN 06/28/23 08/11/23 History trazodone 50 mg tablet 50 mg PO DAILY 06/28/23 08/11/23 History oxybutynin chloride 5 mg tablet 5 - 10 mg (1 - 2 x 5 mg) PO TID 07/28/23 08/11/23 Rx PRN bladder spasms #60 tabs Results Imaging Imaging Studies: EXAM: CT THORAX ABD/PEL CTA CLINICAL HISTORY: History of dissection. TECHNIQUE: Imaging Protocol: Axial CT angiography was performed with multi- slice acquisition and multi-planar and/or 3D reconstructions. CONTRAST MATERIAL: Intravenous: Omnipaque 350 contrast volume:100 mL Oral: No COMPARISON: CT CT BRAIN NECK CTA from 04/18/2023 FINDINGS: The examination is limited due to patient motion artifact. CHEST: Tracheobronchial tree: Patent where visualized. Pulmonary parenchyma: No consolidation or dominant measurable mass. Atelectatic changes are seen in the lung bases. No focal consolidating infiltrates are present. Pulmonary Arteries: Due to patient motion, segmental and subsegmental pulmonary artery opacification is compromised. No large central pulmonary embolism is seen. Mediastinum and Liset: No dominant adenopathy or fluid collection. The esophagus is unremarkable. Visualized thyroid: Unremarkable. Pleura: No effusion or pneumothorax. Heart: Cardiomegaly. Mild coronary artery calcification is present. No pericardial effusion. Aorta: There is a dissection beginning in the mid descending thoracic aorta and extending into the common iliac arteries. The celiac axis, superior mesenteric artery and right renal arteries arise from the true lumen. The left renal artery arises from the false lumen. Distally the dissection extends into the proximal right external iliac artery. Likewise,, on the left, the dissection extends into the left external iliac artery. Soft Tissues: Unremarkable. Bones: Within normal limits for the patient's age. ABDOMEN AND PELVIS: Abdomen: Celiac axis/mesenteric arteries: No evidence of occlusion or significant stenosis. Renal Arteries: No evidence of occlusion or significant stenosis. The left renal artery arises from the false lumen of the dissection as described above. Aorta: There is a continuation of the dissection from the distal descending thoracic aorta extending inferiorly into the iliac arteries as described above. The infrarenal abdominal aorta measures 3 x 2.9 cm. Pelvis: Iliac Arteries: The dissection extends into the iliac arteries as described above. It extends into both external iliac arteries. There is 50 percent narrowing of the left external iliac artery. Common Femoral Arteries: No evidence of occlusion or significant stenosis. Atherosclerotic calcification is present. ABDOMEN: Liver: Normal density. No measurable mass. Gallbladder and Biliary Tract: No radiodense calculus or dilation. Pancreas: Normal density, no abnormal calcifications or inflammatory process. Spleen: Normal. Adrenals: No masses seen. Kidneys: Normal size, contour and axis. No radiodense stones or obstructive uropathy. There are bilateral renal cysts. No follow-up is recommended. Bowel: No obstruction or bowel wall thickening. There is a moderate amount of stool in the colon suggesting constipation. No evidence of appendicitis. Peritoneal Cavity: No ascites, collection or mesenteric inflammatory response. No free air. Lymph Nodes: Within normal limits. Bones: Within normal limits for the patient's age. There is L5 spondylolysis and grade 1 spondylolisthesis of L5 on S1. Soft Tissues: Unremarkable. PELVIS: Bladder: Diffuse thickening of the wall of the urinary bladder. There is a catheter in place. There is a small focus of air in the urinary bladder likely reflecting recent catheterization. Reproductive Organs: Unremarkable as visualized. Lymph Nodes: Within normal limits. Bones: Within normal limits for the patient's age. IMPRESSION: 1. 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 The left renal artery arises from the false lumen. There is 50 percent narrowing of the lumen of the left external iliac artery. 2. Within the limits of the examination, there is no evidence of a pulmonary embolism. 3. Diffuse thickening of the wall of the urinary bladder. This may be due to cystitis, chronic bladder outlet obstruction or neurogenic bladder. There is a Rebolledo catheter in place. This likely accounts for the small focus of air within the urinary bladder. EXAM: CT HEAD WO CLINICAL HISTORY: Agitation confusion. TECHNIQUE: Imaging Protocol: Axial computed tomography images with coronal and sagittal reformatted images were created and reviewed COMPARISON: CT CT HEAD - STROKE PROTOCOL from 04/18/[address] BRAIN NECK CTA from 04/18/2023 FINDINGS: Ventricles and Extra axial spaces: Normal in size and morphology for the patient's age. Hemorrhage: There has been complete resolution of the patient's prior intracranial hemorrhage. No acute hemorrhage is identified. Cerebral parenchyma: There is an area of decreased attenuation in the high left parietal lobe in the midline. This may represent an area of encephalomalacia. There is no mass effect. Possibility of an acute infarct should be considered. There are areas of decreased attenuation in the white matter consistent with chronic microvascular ischemic disease. Midline shift: None. Brainstem/Cerebellum: Normal. Calvarium: Normal. There is a right frontal madeline hole. Visualized Paranasal sinuses/Mastoids: There is a fluid level in the left maxillary sinus. There is a small fluid level in the right sphenoid sinus. There is opacification of a few ethmoid air cells. Soft Tissues: Unremarkable. IMPRESSION: 1. New area of decreased attenuation along the midline in the high posterior left parietal lobe. This may represent an area of an acute infarct. MRI should be considered for further evaluation. 2. Areas of decreased attenuation in the white matter consistent with chronic microvascular ischemic disease. 3. Complete resolution of the patient's prior intracranial hemorrhage. There is a right frontal madeline hole in place. No acute hemorrhage is identified. 4. Fluid levels in the visualized paranasal sinuses suggesting acute sinusitis. Please correlate clinically. Labs 08/11/23 15:55 08/11/23 15:55 Labs: Laboratory Results - last 24 hr 08/11/23 08/11/23 15:55 16:15 WBC 6.48 RBC 3.54 L Hgb 11.1 L Hct 32.7 L MCV 92 MCH 31.4 MCHC 33.9 RDW 12.9 Plt Count 206 MPV 10.4 Immature Gran % 0.3 Neutrophils % 69.6 Lymphocytes % 14.0 Monocytes % 11.9 Eosinophils % 3.4 Basophils % 0.8 Nucleated RBC % 0.0 Absolute Neutrophils 4.51 Absolute Lymphocytes 0.91 L Absolute Monocytes 0.77 Absolute Eosinophils 0.22 Absolute Basophils 0.05 Sodium 132 L Potassium 4.0 Chloride 97 L Carbon Dioxide 24.1 Anion Gap 10.9 BUN 12 Creatinine 1.9 H Est GFR (CKD-EPI 2020) 38.66 Glucose 108 H Calcium 9.3 Troponin I < 50 Urine Color Yellow Urine Clarity Clear Urine pH 6.0 Ur Specific Johnson 1.015 Urine Protein Trace Urine Ketones Trace H Urine Blood Trace-intact H Urine Nitrite Positive H Urine Bilirubin Negative Urine Urobilinogen 0.2 Ur Leukocyte Esterase Small H Urine RBC Not Applicable Urine WBC >50 H Ur Epithelial Cells Not Applicable Urine Crystals Not Applicable Urine Bacteria Not Applicable Urine Mucus Not Applicable Ur Culture Indicated? Yes Urine Glucose Negative Last Vital Signs Temp 37.0 C 08/11/23 15:46 Pulse 95 H 08/11/23 15:46 Resp 18 08/11/23 15:46 BP 139/96 H 08/11/23 15:46 Pulse Ox 98 08/11/23 15:46
[2023-08-11] MEDS: Cefpodoxime 200 MG TAB PO (19:54)
[2023-08-11 19:55] VITALS: BP 139/96; PULSE 95; RESP 18; TEMP 37; O2SAT 98
[2023-08-11 20:18] LABS: TSH (W/Ref FT4) 2.42 uIU/mL (0.36-3.74)
--- NOTE | 2023-08-14 08:17 | PT.INNT ---
PT Notes Visit Reasons: Possible UTI Patient admitted to the ED night of 08/11/2023 and was discharged same night. NO PT services were rendered during this episode of care.
== END 2023-08-11 19:55 | disposition home or self-care (01) ==
PROVIDERS: Family Medicine; Emergency Provider Emergency Medicine; PCP Student in an Organized Health Care Education/Training Program
DX: N39.0 Urinary tract infection, site not specified (principal); R41.82 Altered mental status, unspecified; R45.1 Restlessness and agitation; Z66 Do not resuscitate; Z86.73 Personal history of transient ischemic attack (TIA), and cerebral infarction without residual deficits
CPT/HCPCS: 36415; 71275; 80048; 87077; 93005; 96365; 96372; 99285; 70450; 74174; 81003; 81015; 84443; 84484; 85025; 87086; 87186; 93010; J0696; J1630; J2250; J3490

== ENCOUNTER → 2023-08-24 13:28 | Outpatient (BNVA) | payer MEDICARE, BC, SELFPAY | PROVIDERS: PCP Student in an Organized Health Care Education/Training Program; Visit Provider Urology | DX: Z46.6 Encounter for fitting and adjustment of urinary device (principal); R33.8 Other retention of urine | CPT/HCPCS: 51702 ==

== ENCOUNTER → 2023-09-25 09:58 | Outpatient (BNVA) | payer MEDICARE, BC, SELFPAY | PROVIDERS: PCP Student in an Organized Health Care Education/Training Program; Visit Provider Nurse Practitioner Gerontology | DX: R33.8 Other retention of urine (principal) | CPT/HCPCS: 51702 ==

== ENCOUNTER 2023-09-25 16:21 | Outpatient (REF) | payer MEDICARE, SELFPAY ==
[2023-09-25 16:20] LABS: Bilirubin Negative (Negative); Blood Moderate (Negative); Clarity Turbid (Clear); Glucose Negative (Negative); Ketones Negative (Negative); Leukocyte Esterase Small (Negative); Nitrite Positive (Negative); Specific Gravity 1.025 (1.005-1.025); Urobilinogen 0.2 mg/dL (Up to 0.2)
--- OUTSIDE RECORDS SUMMARY | 2023-09-25 16:23 | XMS_ITS | Encounter Summary ---
[place] [address] Care Team Providers Care Finisher Fine Diamond Dies Name Role Phone Brien Phillips Primary Care Provider + Reason for Referral * Consultation (Routine) - Denied Specialty Diagnoses / Procedures Referred By Contgaviota t Referred To [facility] Diagnoses Unilateral primary osteoarthritis, left hip Brien Phillips PA [address] [place] [address] [facility] [place] [address] Referral ID Status Reason Start Date Expiration Date V isits Requested Visits Authorized [id number] Denied Consult, Test & Treat PCP Updated and/or Approved 08/22/2023 08/20/2024 6 0 Encounter Details Date Type Department Care Team (Late st Contact Info) Description 08/31/2023 Transcribe Orders eDH Incoming Referrals [phone] Brien Phillips PA [address] [place], [place] [id number] Unilateral primary osteoarthritis, left hip Social History Tobacco Use Types Packs/Day Years Used Date Smoking Tobacco: Unknown Alcohol Use Standard Drinks/Week Comments Defer 0 (1 standard drink = 0.6 oz pur e alcohol) [facility] Utilities Answer Date Recorded In the past 12 months has th e electric, gas, oil, or water company threatened to shut off services in your home? No 04/20/2023 Hunger Vital Sign Answer Date Recorded Within the past 12 months, y ou worried that your food would run out before you got the money to buy more. Never true 04/20/19 24 Within the past 12 months, t he food you bought just didn't last and you didn't have money to get more. Never true 04/20/2023 PRAPARE - Transportation Answer Date Re corded In the past 12 months, has l ack of transportation kept you from medical appointments or from getting medications? No 04/06 In the past 12 months, has l ack of transportation kept you from meetings, work, or from getting things needed for daily living? No 04/20/2023 Housing Stability Vital Sign Answer Sloan e Recorded In the last 12 months, was t here a time when you were not able to pay the mortgage or rent on time? No 04/20/2023 Number of Places Lived in the Last Year Not on f ile 04/20/2023 In the last 12 months, was t here a time when you did not have a steady place to sleep or slept in a longterm (including now)? No 04/20/2023 Sex and Gender Information Value Date Recorded Sex Assigned at Not on file Gender Identity Not on file Sexual Orientation Not on file documented as of this encounter Plan of Treatment Upcoming Encounters Date Type Department Care Team (Late st Contact Info) Description 10/11/2023 8:00 AM EDT [place] [address] Edna Byrd, [facility] [place] [address] 10/25/2023 11:20 AM EDT Office [place] [phone] Priscilla Blackwell, [facility] [place] [address] Scheduled Referrals Name Type Priority Associated Diagnoses Order Schedule Referral to Pain Management Outpatient Referral Routine Unilateral primary osteoarthritis, left hip Ordered: 08/31/2023 documented as of this encounter Visit Diagnoses Diagnosis Unilateral primary osteoarthritis, left hip documented in this encounter Care Teams Finisher Fine Diamond Dies Relationship Specialty Start Date End Date Brien Phillips PA [address] [place] [address] PCP - General Internal Medicine 08/31/23 documented as of this encounter
--- OUTSIDE RECORDS SUMMARY | 2023-09-25 16:23 | XMS_ITS | Encounter Summary ---
Author Organization [facility] [place] [address] Care Team Providers Care Pediatric Physical Therapist Name Role Phone Fransico Remy MD Primary Care Provider [phone] Encounter Details Date Type Department Care Team (Late st Contact Info) Description 06/21/2023 Orders [place] [phone] Delilah Lyons, RN Dissection of thoracoabdominal aortic aneurysm (TAAA) Social History Tobacco Use Types Packs/Day Years Used Date Smoking Tobacco: Unknown Alcohol Use Standard Drinks/Week Comments Defer 0 (1 standard drink = 0.6 oz pur e alcohol) [facility] Utilities Answer Date Recorded In the [...] place to sleep or slept in a prison (including now)? No 04/20/2023 Sex and Gender Information Value Date Recorded Sex Assigned at Not on file Gender Identity Not on file Sexual Orientation Not on file documented as of this encounter Plan of Treatment Upcoming Encounters Date Type Department Care Team (Late st Contact Info) Description 10/11/2023 8:00 AM EDT [place] [phone] Edna Byrd, [facility] [place] [address] 10/25/2023 11:20 AM EDT Office [place] [phone] Priscilla Blackwell, [facility] [place] [address] documented as of this encounter Results * (ABNORMAL) Creatinine (07/31/2023 1:08 PM EDT) Creatinine 1.72(H) 0.80 - 1.50 mg/dL [facility] Est Glomerular Filtration Rate 44(L) >=60 mL/min/1. 73 m?? [facility] Comment: This patient's estimated GFR was calculated using the 2020 CKD-EPI equation. The estimated GFR can vary from the measured GFR by up to 30% in the absence of rapidly changing kidney function. Assessment of the estimated GFR is not appropriate when creatinine concentrations are rapidly changing. For clinical situations in which a more precise estimate of GFR is necessary, consider alternative methods of GFR estimation such as a 24-hour urine creatinine clearance. Assignment of CKD stage 1-5 for patients with an eGFR near the transition point between stages may be based on clinical assessment of muscle mass and symptoms in addition to eGFR. Blood 07/31/2023 1:08 PM EDT 07/31/2023 1:25 PM EDT Narrative Resulting Agency Comment Spec In Lab Arina Segovia APRN CHEMISTRY ORDERABLES [facility] [place] [address] documented in this encounter Visit Diagnoses Diagnosis Dissection of thoracoabdominal aortic aneurysm (TAAA) documented in this encounter Care Teams Pediatric Physical Therapist Relationship Specialty Start Date End Date Fransico Remy MD [address] [place] [address] PCP - General Emergency Medicine 04/18/23 08/30/23 documented as of this encounter
--- OUTSIDE RECORDS SUMMARY | 2023-09-25 16:23 | XMS_ITS | Encounter Summary ---
Author Organization [facility] [place] [address] Care Team Providers Care Chamber Worker Name Role Phone Fransico Remy MD Primary Care Provider [phone] Encounter Details Date Type Department Care Team (Latest Contact Info) Description 07/31/2023 1:15 PM EDT Laboratory Appointment Lab [address] [place] [phone] Dissection of thoracoabdominal aortic aneurysm (TAAA) Social History Tobacco Use Types Packs/Day Years Used Date Smoking Tobacco: Unknown Alcohol Use Standard Drinks/Week Comments Defer 0 (1 standard drink = 0.6 oz pur e alcohol) [facility] Utilities Answer Date Recorded In the past 12 months has e electric, gas, oil, or water company [...] place to sleep or slept in a assisted (including now)? No 04/20/2023 Sex and Gender Information Value Date Recorded Sex Assigned at Not on file Gender Identity Not on file Sexual Orientation Not on file documented as of this encounter Plan of Treatment Upcoming Encounters Date Type Department Care Team (Late st Contact Info) Description 10/11/2023 8:00 AM EDT Office [place] [phone] Edna Byrd, [facility] [place] [address] 10/25/2023 11:20 AM EDT Office [place] [phone] Priscilla Blackwell, [facility] [place] [address] documented as of this encounter Procedures Procedure Name Priority Date/Time Associated Diagnosis Comments CREATININE STAT 07/31/2023 1:08 PM EDT Dissection of thoracoabdominal aortic aneurysm (TAAA) documented in this encounter Results * (ABNORMAL) Creatinine (07/31/2023 [...] APRN CHEMISTRY ORDERABLES [facility] [place] [address] documented in this encounter Visit Diagnoses Diagnosis Dissection of thoracoabdominal aortic aneurysm (TAAA) documented in this encounter Care Teams Chamber Worker Relationship Specialty Start Date End Date Fransico Remy MD [address] [place] [id number] PCP - General Emergency Medicine 04/18/23 08/30/23 documented as of this encounter
--- OUTSIDE RECORDS SUMMARY | 2023-09-25 16:23 | XMS_ITS | Continuity of Care Document ---
Author Organization [facility] Address [address] [place] [id number] Care Team Providers Care Family Support Worker Name Role Phone JEAN BORJA Primary Care Physician Encounter [facility] NBR [id number] Date(s): 09/14/23 - 09/14/[address] [address] [place] Encounter Diagnosis Pain in left knee(Final) - Discharge Disposition: Home or Self Care Attending Physician: JEAN BORJA Admitting Physician: JEAN BORJA Referring Physician: JEAN BORJA Results Radiology Reports * Exam Date Time Procedure Performing Provider Status 09/14/23 8:35 AM XR Knee 3 Views Left [facility] Notes: (XR Knee 3 Views Left) Reason For Exam: pain in left knee XR Knee 3 Views Left EXAM DESCRIPTION: XR Knee 3 Views Left 09/14/2023 INDICATION: PAIN IN LEFT KNEE COMPARISON: None IMPRESSION: No acute fracture or dislocation No significant arthritic changes. Joint spaces are relatively well maintained No focal lytic or sclerotic lesion. JOB #: [id number] Final Signed by: Mick Farrar MD Signed (Electronic Signature): 09/14/2023 8:49 am Patient Care team information Care Team Personnel Name: JEAN BORJA Position: No Access Member Role: Primary Care Physician Address: Address: [address] [address]
--- OUTSIDE RECORDS SUMMARY | 2023-09-25 16:23 | XMS_ITS | Encounter Summary ---
Author Organization [facility] Address [facility] [place] [address] Care Team Providers Care Medical Physics Teacher Name Role Phone Fransico Remy MD Primary Care Provider [phone] Encounter Details Date Type Department Care Team (Late st Contact Info) Description 07/06/2023 Telephone [place] [phone] Gail Singh MD [facility] [address] Social History Tobacco Use Types Packs/Day Years Used Date Smoking Tobacco: Unknown Alcohol Use Standard Drinks/Week Comments Defer 0 (1 standard drink = 0.6 oz pur e alcohol) [facility] Utilities Answer Date Recorded In the past 12 months has e [employer], gas, oil, or water [employer] threatened to shut off services in your [...] place to sleep or slept in a residential (including now)? No 04/20/2023 Sex and Gender Information Value Date Recorded Sex Assigned at Not on file Gender Identity Not on file Sexual Orientation Not on file documented as of this encounter Miscellaneous Notes * Telephone Encounter - Michelle Rabago COT - 07/06/2023 9:27 AM EDT called back and pt has an appt with Dr Szymanski on 07/09 and asked that we fax note to [phone] Faxed * Telephone Encounter - Michelle Rabago COT - 07/06/2023 8:46 AM EDT Called to let patient know that BBS is sick and cannot see today. Offered to reschedule or advised they could be seen by local eye provider. stated pt has not seen an eye provider in 20+ yrs. was told by DOMINICK that pt needed to see specialist BBS before seeing reg eye provider. Explained that BBS is an tailer out and can recommend prisms but cannot write rx so Melania would needto see eye provider in order to get glasses. Suggested they reach out to [facility] to establish care and we would keep appt with BBS for 07/12 in case they wanted him seen here and/or if they cannot see soon. /pt will call and advise if they want notes faxed to office once they have made an appt. documented in this encounter Plan of Treatment Upcoming Encounters Date Type Department Care Team (Late st Contact Info) Description 10/11/2023 8:00 AM EDT Office [place] [address] Edna Byrd, [facility] [address] 10/25/2023 11:20 AM EDT Office [place] [phone] Priscilla Blackwell, [facility] [place] [address] documented as of this encounter Visit Diagnoses Not on filedocumented in this encounter Care Teams Medical Physics Teacher Relationship Specialty Start Date End Date Fransico Remy MD [address] [place] [address] PCP - General Emergency Medicine 04/18/23 08/30/23 documented as of this encounter
--- OUTSIDE RECORDS SUMMARY | 2023-09-25 16:23 | XMS_ITS | Encounter Summary ---
Author Organization [facility] Address [facility] [place] [address] Care Team Providers Care Coffee Roaster Name Role Phone Fransico Remy MD Primary Care Provider [phone] Reason for Referral * Diagnostic Test (Routine) - Closed Specialty Diagnoses / Procedures Referred By Contac t Referred To Contact Radiology Diagnoses Dissection of aorta, unspecified portion of aorta Procedures CT Angiogram Chest Abdomen Pelvis w Contrast Narayan Alvarez MD [facility] [place] [address] [facility] [place] [address] Referral ID Status Reason Start Date Expiration Date V isits Requested Visits Authorized [id number] Closed Specialty Service Requested 04/25/2023 10/25/2024 1 1 Reason for Visit * Diagnostic Test (Routine) - Closed Specialty Diagnoses / Procedures Referred By Contac t Referred To Contact Radiology Diagnoses Dissection of aorta, unspecified portion of aorta Procedures CT Angiogram Chest Abdomen Pelvis w Contrast Narayan Alvarez MD [facility] [place] [address] [facility] [place] [address] Referral ID Status Reason Start Date Expiration Date V isits Requested Visits Authorized [id number] Closed Specialty Service Requested 04/25/2023 10/25/2024 1 1 Encounter Details Date Type Department Care Team (Latest Contact Info) Description 07/31/2023 2:35 PM EDT - 07/31/2023 11:59 PM EDT Hospital Encounter CT Scan at [facility] [place] [address] Georges Jacob MD [facility] [place] [address] Dissection of aorta, unspecified portion of aorta Discharge Disposition: Home Social History Tobacco Use Types Packs/Day Years Used Date Smoking Tobacco: Unknown Alcohol Use Standard Drinks/Week Comments Defer 0 (1 standard drink = 0.6 oz pur e alcohol) [facility] Utilities Answer Date Recorded In [...] place to sleep or slept in a care home (including now)? No 04/20/2023 Sex and Gender Information Value Date Recorded Sex Assigned at Not on file Gender Identity Not on file Sexual Orientation Not on file documented as of this encounter Medications at Time of Discharge Medication Sig Dispensed Refills Start Date End Date acetaminophen (Tylenol) 325 mg tablet Take 3 tablets by mouth every 6 hours as needed for Pain or Fever. 06/02/2023 amLODIPine (Norvasc) 10 mg tablet Take 1 tablet by mouth daily. 06/02/2023 carboxymethylcellulose (Refresh Plus) 0.5 % Dropperette Place 1 drop into both eyes 3 times daily as needed. 06/02/2023 camphor-methyl salicyl-menthoL (Bengay Ultra Strength) Cream Apply topically 2 times daily as needed (hip pain). 06/02/2023 aspirin 81 mg chewable tablet Take 81 mg by mouth daily. 06/02/2023 chlorthalidone (Hygroton) 25 mg tablet Take 1 tablet by mouth nightly. 06/02/2023 cloNIDine (Catapres) 0.2 mg tablet Take 1 tablet by mouth 3 times daily. 06/02/2023 enoxaparin (Lovenox) 40 mg/0.4 mL Syringe Inject 0.4 mLs subcutaneously nightly. 06/02/2023 ergocalciferoL, vitamin D2, (vitamin D2) 200 mcg/mL (8,000 unit/mL) Drops Take 6.25 mLs by mouth once a week. 06/05/2023 FLUoxetine (PROzac) 20 mg capsule Take 1 capsule by mouth daily. 06/02/2023 ipratropium-albuteroL (Duoneb) 0.5 mg-3 mg(2.5 mg base)/3 mL Solution for Nebulization Take 0.5 mg by nebulization every 4 hours as needed. 06/02/2023 lisinopriL (Zestril) 40 mg tablet Take 1 tablet by mouth daily. 06/02/2023 bisacodyL (Dulcolax) [address] 1 suppository rectally daily as needed. 06/02/2023 bisacodyl EC (Dulcolax) 5 mg Tablet, Delayed Release (E.C.) Take 2 tablets by mouth 2 times daily as needed for Constipation. 06/02/2023 lactulose (Chronulac) 20 gram/30 mL Solution Take 30 mLs by mouth daily as needed. 06/02/2023 polyethylene glycoL (Miralax) 17 gram oral powder packet Take 17 g by mouth daily. 06/02/2023 QUEtiapine (SEROquel) 25 mg tablet Take 3 tablets by mouth nightly. 06/02/2023 senna-docusate (Pericolace) 8.6-50 mg Tablet Take 2 tablets by mouth 2 times daily as needed for Constipation. 06/02/2023 simethicone (Mylicon) 40 mg/0.6 mL Drops, Suspension Take 0.6 mLs by mouth every 6 hours as needed. 06/02/2023 sodium chloride (NebuSal) 3 % Solution for Nebulization Take 4 mLs by nebulization every 4 hours as needed for Cough. 06/02/2023 tamsulosin (Flomax) 0.4 mg capsule Take 1 capsule by mouth daily. 06/02/2023 terazosin (Hytrin) 1 mg capsule Take 1 capsule by mouth 2 times daily. 06/02/2023 documented as of this encounter Plan of Treatment Upcoming Encounters Date Type Department Care Team (Late st Contact Info) Description 10/11/2023 8:00 AM EDT [place] [address] Edna Byrd, [facility] [place] [address] 10/25/2023 11:20 AM EDT Office [place] [address] Priscilla Blackwell, [facility] [place] [address] documented as of this encounter Procedures Procedure Name Priority Date/Time Associated Diagnosis Comments CT ANGIOGRAM CHEST ABDOMEN PELVIS W CONTRAST Routine 07/31/2023 3:45 PM EDT Dissection of aorta, unspecified portion of aorta documented in this encounter Results * CT Angiogram Chest Abdomen Pelvis w Contrast (07/31/2023 3:45 PM EDT) [employer] WORKSTATION ID [id number] RAD Anatomical Region Laterality Modality Abdomen, Chest Computed Tomogra phy Impressions 08/01/2023 9:39 AM EDT 1. ??Unchanged appearance and extent of the known [place] B dissection extending from the origin of the left subclavian to the right common iliac and left common femoral arteries. Maximal diameter of the involved thoracic aorta of 42 mm, similar to prior. 2. ??False lumen continues to supply the two left renal arteries and BRIAN, no interval signs of ischemia. 3. ??New trace pericardial effusion. 4. ??Intermediate attenuation right renal cyst, possibly artifact. Consider renal ultrasound for further evaluation. I have personally reviewed the image(s) and the resident's interpretation and agree with the findings, Nicolette Cuevas MD at 08/01/2023 9:39 AM Thank you for letting us participate in the care of this patient. ??If you are a health care provider and have any questions regarding this report, please contact the number below. ??For patients who have questions please contact the health point of care specialist that requested your imaging first. ? 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 Administered 97.0 ml of OMNIPAQUE 350.00 mg/ml. Maximum intensity projection (MIP) were reformatted. 3-D images were generated on an independent workstation. COMPARISON: CTA chest abdomen and pelvis 05/16/2023, 04/22/2023 FINDINGS: Assessment of the mid ascending aorta is limited by motion. Maximum diameters of the aorta were measured at the following levels on center line reformatted images: * ??Sinuses of Valsalva: 34.5 x 43.0 mm * ??Sinotubular junction: 25.4 x 38.9 mm * ??Mid ascending aorta: 41.9 x 46.5 mm * ??Proximal aortic arch: 38.9 x 42.2 mm * ??Mid aortic arch: 29.9 x 32.9 mm * ??Proximal descending thoracic aorta: 36.9 x 42.0 mm * ??Mid descending aorta: 34.5 x 40.7 mm * ??Aorta at diaphragm: 29.7 x 33.5 mm * ??Abdominal aorta at celiac axis origin: 28.4 x 33.2 mm VASCULAR FINDINGS Heart: Left ventricular hypertrophy. New trace pericardial effusion. No intracardiac filling defect. Severe coronary artery calcifications. Thoracic/abdominal aorta: Stable 46 mm fusiform dilation of the ascending thoracic aorta. Unchanged extent of the known [place] type B dissection extending from the origin of the left subclavian artery through the right common iliac and left common femoral arteries. Interval thrombosis of the proximal-most aspect. Maximal caliber of the involved aorta of 42 mm (descending aorta) similar to prior (44 mm on 05/16/2023). The false lumen continues to supply the two left renal arteries and inferior mesenteric artery. Arch branch vessel origins: Widely patent. Pulmonary arteries: Poorly opacified. Celiac: Widely patent. Dissection flap minimally involves the left ostium, unchanged. Superior mesenteric artery: Widely patent. Right renal artery: Dual right renal arteries, an anatomic variant. Patent. Left renal artery: Dual left renal arteries, an anatomic variant. Supplied by false lumen and patent. Inferior mesenteric artery: Supplied by false lumen, patent. Right: Common iliac artery: Unchanged involvement by dissection, patent true and false lumens. Internal iliac artery: Supplied by true lumen, patent. External iliac artery: Unchanged extension of dissection to the origin, otherwise patent. Common femoral artery: Patent. Left: Common iliac artery: Unchanged involvement by dissection, patent true and false lumens. Internal iliac artery: Supplied by the true lumen, patent. External iliac artery: Unchanged involvement by dissection, patent true and false lumens, though poor opacification of the false lumen present with stenosis of the true lumen, as before. Common femoral artery: Proximally involved by dissection, unchanged. Distally patent. NON-VASCULAR FINDINGS Lungs and large airways: Large airways are patent. No airspace opacity or suspicious pulmonary nodule. Pleura: No pneumothorax or effusion. Mediastinum and jenise: No lymphadenopathy. Chest wall: Unremarkable. Liver: Normal size and attenuation without lesions. Bile ducts: Nondilated. Gallbladder: No calcified gallstones. Normal caliber wall. Pancreas: Normal attenuation without ductal dilatation. Spleen: Normal. Adrenals: Normal. Kidneys: Symmetric nephrograms. No hydronephrosis. Left simple cyst. Intermediate attenuation right 2.0 cm renal lesion. Urinary Bladder: Rebolledo catheter in situ. Lymph Nodes: Left, retroperitoneal periaortic lymph nodes are mildly prominent, stable and likely reactive. Bowel: Nondilated, no wall thickening. Normal appendix. ?? Peritoneum and retroperitoneum: No hemorrhage. No pneumoperitoneum. No fluid collection or mesenteric inflammation. Abdominal wall: Scattered subcutaneous nodules, routinely seen in the setting of medication administration. Reproductive organs: Normal contours. Osseous structures: No acute osseous abnormality. Severe left hip arthropathy. Bilateral L5 pars defects with similar grade 1 anterolisthesis of L5 on S1. 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 Administered 97.0 ml of OZSBAKTDL921.00 mg/ml. Maximum intensity projection (MIP) were reformatted. 3-D imageswere generated on an independent workstation. COMPARISON: CTA chest abdomen and pelvis 05/16/2023, 04/22/2023 FINDINGS: Assessment of the mid ascending aorta is limited by motion. Maximumdiameters of the aorta were measured at the following levels on center linereformatted images: * Sinuses of Valsalva: 34.5 x 43.0 mm * Sinotubular junction: 25.4 x 38.9 mm * Mid ascending aorta: 41.9 x 46.5 mm * Proximal aortic arch: 38.9 x 42.2 mm * Mid aortic arch: 29.9 x 32.9 mm * Proximal descending thoracic aorta: 36.9 x 42.0 mm * Mid descending aorta: 34.5 x 40.7 mm * Aorta at diaphragm: 29.7 x 33.5 mm * Abdominal aorta at celiac axis origin: 28.4 x 33.2 mm VASCULAR FINDINGS Heart: Left ventricular hypertrophy. New trace pericardial effusion. No intracardiac filling defect. Severe coronary artery calcifications. Thoracic/abdominal aorta: Stable 46 mm fusiform dilation of theascending thoracic aorta. Unchanged extent of the known [place] type B dissection extending from the origin of the left subclavian artery through the rightcommon iliac and left common femoral arteries. Interval thrombosis of theproximal-most aspect. Maximal caliber of the involved aorta of 42 mm (descendingaorta) similar to prior (44 mm on 05/16/2023). The false lumen continues to supplythe two left renal arteries and inferior mesenteric artery. Arch branch vessel origins: Widely patent. Pulmonary arteries: Poorly opacified. Celiac: Widely patent. Dissection flap minimally involves the leftostium, unchanged. Superior mesenteric artery: Widely patent. Right renal artery: Dual right renal arteries, an anatomic variant.Patent. Left renal artery: Dual left renal arteries, an anatomic variant. Suppliedby false lumen and patent. Inferior mesenteric artery: Supplied by false lumen, patent. Right: Common iliac artery: Unchanged involvement by dissection, patent true andfalse lumens. Internal iliac artery: Supplied by true lumen, patent. External iliac artery: Unchanged extension of dissection to the origin, otherwise patent. Common femoral artery: Patent. Left: Common iliac artery: Unchanged involvement by dissection, patent true andfalse lumens. Internal iliac artery: Supplied by the true lumen, patent. External iliac artery: Unchanged involvement by dissection, patent trueand false lumens, though poor opacification of the false lumen present withstenosis of the true lumen, as before. Common femoral artery: Proximally involved by dissection, unchanged.Distally patent. NON-VASCULAR FINDINGS Lungs and large airways: Large airways are patent. No airspace opacityor suspicious pulmonary nodule. Pleura: No pneumothorax or effusion. Mediastinum and jenise: No lymphadenopathy. Chest wall: Unremarkable. Liver: Normal size and attenuation without lesions. Bile ducts: Nondilated. Gallbladder: No calcified gallstones. Normal caliber wall. Pancreas: Normal attenuation without ductal dilatation. Spleen: Normal. Adrenals: Normal. Kidneys: Symmetric nephrograms. No hydronephrosis. Left simple cyst. Intermediate attenuation right 2.0 cm renal lesion. Urinary Bladder: Rebolledo catheter in situ. Lymph Nodes: Left, retroperitoneal periaortic lymph nodes are mildlyprominent, stable and likely reactive. Bowel: Nondilated, no wall thickening. Normal appendix. Peritoneum and retroperitoneum: No hemorrhage. No pneumoperitoneum. Nofluid collection or mesenteric inflammation. Abdominal wall: Scattered subcutaneous nodules, routinely seen in thesetting of medication administration. Reproductive organs: Normal contours. Osseous structures: No acute osseous abnormality. Severe left hiparthropathy. Bilateral L5 pars defects with similar grade 1 anterolisthesis of L5 onS1. IMPRESSION 1. Unchanged appearance and extent of the known [place] B dissectionextending from the origin of the left subclavian to the right common iliac and leftcommon femoral arteries. Maximal diameter of the involved thoracic aorta of 42mm, similar to prior. 2. False lumen continues to supply the two left renal arteries and BRIAN,no interval signs of ischemia. 3. New trace pericardial effusion. 4. Intermediate attenuation right renal cyst, possibly artifact. Considerrenal ultrasound for further evaluation. I have personally reviewed the image(s) and the resident's interpretationand agree with the findings, Nicolette Cuevas MD at 08/01/2023 9:39 AM Thank you for letting us participate in the care of this patient. If youare a health care provider and have any questions regarding this report,please contact the number below. For patients who have questions please contactthe health point of care specialist that requested your imaging first. Georges Jacob MD IMG CT ORDERABLES documented in this encounter Visit Diagnoses Diagnosis Dissection of aorta, unspecified portion of aorta documented in this encounter Administered Medications Inactive Administered Medications - up to 3 most recent administrations Medication Order MAR Action Action Date Dose Rate Site iodixanoL (Visipaque) (320 mg/mL) injection solution 0-200 mL 0-200 mL, Intravenous, ONCE PRN, 1 dose, Starting on Mon07/31/23 at 1545, Until Mon07/31/23 at 1545, Per Protocol, Radiology Contrast, Routine Given 07/31/2023 3:45 PM EDT 97 mLs documented in this encounter Care Teams Coffee Roaster Relationship Specialty Start Date End Date Fransico Remy MD [address] [place] [address] PCP - General Emergency Medicine 04/18/23 08/30/23 documented as of this encounter
--- OUTSIDE RECORDS SUMMARY | 2023-09-25 16:23 | XMS_ITS | Encounter Summary ---
Author Organization [facility] [place] [address] Care Team Providers Care Tabular Typist Name Role Phone Fransico Remy MD Primary Care Provider [phone] Encounter Details Date Type Department Care Team (Latest Contact Info) Description 07/30/2023 Travel Social History Tobacco Use Types Packs/Day Years Used Date Smoking Tobacco: Unknown Alcohol Use Standard Drinks/Week Comments Defer 0 (1 standard drink = 0.6 oz pur e alcohol) [facility] Utilities Answer Date Recorded In [...] 8:00 AM EDT [place] [address] Edna Byrd, [facility] [place] [address] 10/25/2023 11:20 AM EDT Office [place] [address] Priscilla Blackwell, [facility] [place] [address] documented as of this encounter Visit Diagnoses Not on filedocumented in this encounter Care Teams Tabular Typist Relationship Specialty Start Date End Date Fransico Remy MD [address] [place] [address] PCP - General Emergency Medicine 04/18/23 08/30/23 documented as of this encounter
--- OUTSIDE RECORDS SUMMARY | 2023-09-25 16:23 | XMS_ITS | Encounter Summary ---
Author Organization [facility] Address [facility] [place] [address] Care Team Providers Care Camera Prototyping Engineer Name Role Phone Fransico Remy MD Primary Care Provider [phone] Encounter Details Date Type Department Care Team (Late st Contact Info) Description 08/11/2023 7:00 PM EDT Ancillary Procedure [place] [address] Tiarra Meredith MD [facility] [place] [address] Social History Tobacco Use Types Packs/Day Years Used Date Smoking Tobacco: Unknown Alcohol Use Standard Drinks/Week Comments Defer 0 (1 standard drink = 0.6 oz pur e alcohol) [facility] Utilities Answer Date Recorded In the past 12 months has [employer], [employer], oil, or water [employer] threatened to shut off services in your [...] medical appointments or from getting medications? No 03/1 05/2023 In the past 12 months, has l [...] place to sleep or slept in a detention (including now)? No 04/20/2023 Sex and Gender Information Value Date Recorded Sex Assigned at Not on file Gender Identity Not on file Sexual Orientation Not on file documented as of this encounter Plan of Treatment Upcoming Encounters Date Type Department Care Team (Late st Contact Info) Description 10/11/2023 8:00 AM EDT [place] [address] Edna Byrd, [facility] [place] [address] 10/25/2023 11:20 AM EDT Office [place] [address] Priscilla Blackwell, [facility] [place] [address] documented as of this encounter Procedures Procedure Name Priority Date/Time Associated Diagnosis Comments FILM LIBRARY STORAGE ONLY CT CHEST ABDOMEN PELVIS Routine 08/11/2023 6:55 PM EDT documented in this encounter Results * Film Library- Storage Only CT Chest Abdomen Pelvis (08/11/2023 6:55 PM EDT) Narrative DAMION - 08/11/2023 6:55 PM EDT This exam is auto-finalizing. It's purpose is for storage only. Tiarra AKINS FILM LIBRARY ORD ERABLES [facility] [place], [place] documented in this encounter Visit Diagnoses Not on filedocumented in this encounter Care Teams Camera Prototyping Engineer Relationship Specialty Start Date End Date Fransico Remy MD [address] [place] [address] PCP - General Emergency Medicine 04/18/23 08/30/23 documented as of this encounter
--- OUTSIDE RECORDS SUMMARY | 2023-09-25 16:23 | XMS_ITS | Encounter Summary ---
Author Organization [facility] [place] [address] Care Team Providers Care Gastroenterology Physician Name Role Phone Fransico Remy MD Primary Care Provider [phone] Encounter Details Date Type Department Care Team (Late st Contact Info) Description 06/22/2023 Telephone [place] [phone] Nahum Sepulveda [facility] [place] [address] Social History Tobacco Use Types Packs/Day Years Used Date Smoking Tobacco: Unknown Alcohol Use Standard Drinks/Week Comments Defer 0 (1 standard drink = 0.6 oz pur e alcohol) [facility] Utilities Answer Date Recorded In the past 12 months has [employer], gas, oil, or water [employer] threatened to shut off services in your [...] encounter Miscellaneous Notes * Telephone Encounter - [place] [facility] - 06/22/2023 3:26 PM EDT Pt's , Tete called in about appt with Yocasta on 08/03/2023. Pt was seen as an in pt bedside by DOC after stroke. Pt is currently patching for diplopia. Tete was asking about a sooner appt so I resched pt to 07/06/2023. I asked her to bring in any glasses that pt uses for distance and/or near so that Yocasta could apply fresnel prism to them as needed. She noted understanding and was happy with sooner appt. documented in this encounter Plan of Treatment Upcoming Encounters Date Type Department Care Team (Late st Contact Info) Description 10/11/2023 8:00 AM EDT [place] [address] [facility] [place] [address] 10/25/2023 11:20 AM EDT Office [place] [phone] [facility] [place] [address] documented as of this encounter Visit Diagnoses Not on filedocumented in this encounter Care Teams Gastroenterology Physician Relationship Specialty Start Date End Date Fransico Remy MD [address] [place] [address] PCP - General Emergency Medicine 04/18/23 08/30/23 documented as of this encounter
--- OUTSIDE RECORDS SUMMARY | 2023-09-25 16:23 | XMS_ITS | Clinical Summary ---
Author Organization [facility] Address [facility] [place] [address] Care Team Providers Care Psychometric Examiner Name Role Phone Brien Phillips Primary Care Provider + Allergies No known active allergies Medications Medication Sig Dispensed Refills Start Date End Date Status acetaminophen (Tylenol) 325 mg tablet Take 3 tablets by mouth every 6 hours as needed for Pain or Fever. 06/02/2023 Active amLODIPine (Norvasc) 10 mg tablet Take 1 tablet by mouth daily. 06/02/2023 Active carboxymethylcellul ose (Refresh Plus) 0.5 % Dropperette Place 1 drop into both eyes 3 times daily as needed. 06/02/2023 Active camphor-methyl salicyl-menthoL (Bengay Ultra Strength) Cream Apply topically 2 times daily as needed (hip pain). 06/02/2023 Active aspirin 81 mg chewable tablet Take 81 mg by mouth daily. 06/02/2023 Active chlorthalidone (Hygroton) 25 mg tablet Take 1 tablet by mouth nightly. 06/02/2023 Active cloNIDine (Catapres) 0.2 mg tablet Take 1 tablet by mouth 3 times daily. 06/02/2023 Active enoxaparin (Lovenox) 40 mg/0.4 mL Syringe Inject 0.4 mLs subcutaneously nightly. 06/02/2023 Active ergocalciferoL, vitamin D2, (vitamin D2) 200 mcg/mL (8,000 unit/mL) Drops Take 6.25 mLs by mouth once a week. 06/05/2023 Active FLUoxetine (PROzac) 20 mg capsule Take 1 capsule by mouth daily. 06/02/2023 Active ipratropium-albuter oL (Duoneb) 0.5 mg-3 mg(2.5 mg base)/3 mL Solution for Nebulization Take 0.5 mg by nebulization every 4 hours as needed. 06/02/2023 Active lisinopriL (Zestril) 40 mg tablet Take 1 tablet by mouth daily. 06/02/2023 Active bisacodyL (Dulcolax) [address] 1 suppository rectally daily as needed. 06/02/2023 Active bisacodyl EC (Dulcolax) 5 mg Tablet, Delayed Release (E.C.) Take 2 tablets by mouth 2 times daily as needed for Constipation. 06/02/2023 Active lactulose (Chronulac) 20 gram/30 mL Solution Take 30 mLs by mouth daily as needed. 06/02/2023 Active polyethylene glycoL (Miralax) 17 gram oral powder packet Take 17 g by mouth daily. 06/02/2023 Active QUEtiapine (SEROquel) 25 mg tablet Take 3 tablets by mouth nightly. 06/02/2023 Active senna-docusate (Pericolace) 8.6-50 mg Tablet Take 2 tablets by mouth 2 times daily as needed for Constipation. 06/02/2023 Active simethicone (Mylicon) 40 mg/0.6 mL Drops, Suspension Take 0.6 mLs by mouth every 6 hours as needed. 06/02/2023 Active sodium chloride (NebuSal) 3 % Solution for Nebulization Take 4 mLs by nebulization every 4 hours as needed for Cough. 06/02/2023 Active tamsulosin (Flomax) 0.4 mg capsule Take 1 capsule by mouth daily. 06/02/2023 Active terazosin (Hytrin) 1 mg capsule Take 1 capsule by mouth 2 times daily. 06/02/2023 Active Active Problems Problem Noted Date Diagnosed Date ICH (intracerebral hemorrhage) 04/18/2023 Overview (05/21/2023): Right cerebellar hemorrhage s/p EVD placement Admitted 04/18/2023 Dx: Antithrombotic stroke prevention Statin therapy Lipid Panel Lab Results Component Value Date CHLPL 220 04/19/2023 HDL 86 04/19/2023 CHOLHDL 2.6 04/19/2023 TRIG 194 05/07/2023 LDLDIRECT 129 04/19/2023 Blood Pressure goals/control Rx SBP> Ideally: Glycemic control Lab Results Component Value Date HA1C 6.0 (H) 04/19/2023 Smoking/tobacco Social History Tobacco Use Smoking Status Unknown Smokeless Tobacco Not on file VTE ppx Fluids Nutrition Puree diet Discharge barriers (eg., guardianship, advance directive, insurance) Meds reconciled? NIHSS (need approx 36 hour post t-PA and intervention) NIH Stroke Scale (from Navigator) NIH Stroke Scale Date 04/18/23 NIH Stroke Scale Time 1050 Level of Consciousness 1 LOC Questions 2 LOC Commands 0 Best Gaze 1 Vision 0 Facial Palsy 0 Motor Arm, Left 0 Motor Arm, Right 0 Motor Leg, Left 0 Motor Leg, Right 0 Limb Ataxia (UT) Sensory (UT) Best Language 3 (intubated) Dysarthria 0 Extinction and Inattention: 0 (UT) NIH Total Score Encounters Date Type Department Care Team Description 09/07/2023 Telephone [place] [phone] Steve Carmona 08/31/2023 Transcribe Orders eDH Incoming Referrals [phone] Brien Phillips PA Unilateral primary osteoarthritis, left hip 08/11/2023 7:05 PM EDT Ancillary [place] [phone] Tiarra Meredith MD 08/11/2023 7:00 PM EDT Ancillary [place] [phone] Tiarra Meredith MD 08/11/2023 6:35 PM EDT Telehealth notes [place] [address] Telehealth, Neurology 08/11/2023 Telephone [place] [phone] Humble Gaviria MD 07/31/2023 4:00 PM EDT Office Visit Vascular Surgery at [place] [phone] Dhaval Kidd MD 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) 07/31/2023 2:35 PM EDT - 07/31/2023 11:59 PM EDT Hospital Encounter CT Scan at [place] [phone] Georges Jacob MD Dissection of aorta, unspecified portion of aorta Discharge Disposition: Home 07/31/2023 1:15 PM EDT Laboratory Appointment Lab [address] [place] [address] Dissection of thoracoabdominal aortic aneurysm (TAAA) 07/30/2023 Travel 07/27/2023 9:25 AM EDT Ancillary Procedure Radiology Library at [place] [phone] Rick Shaw MD 07/27/2023 Interpretation Only Radiology Library at [place] [phone] Rick Shaw MD 07/06/2023 Telephone Ophthalmology at [place] [phone] Gail Singh MD from Last 3 Months Social History Tobacco Use Types Packs/Day Years Used Date Smoking Tobacco: Unknown Tobacco Cessation:Counseling Given: Not Answered Alcohol Use Standard Drinks/Week Comments Defer 0 (1 standard drink = 0.6 oz pur e alcohol) [facility] Utilities Answer Date Recorded In the past 12 months has e electric, gas, oil, or water company threatened to shut off services in your home? No 04/20/2023 Hunger Vital Sign Answer Date Recorded Within the past 12 months, y ou worried that your food would run out before you got the money to buy more. Never true 04/20/19 Within the past 12 months, t he [...] place to sleep or slept in a custodial (including now)? No 04/20/2023 Sex and Gender Information Value Date Recorded Sex Assigned at Not on file Gender Identity Not on file Sexual Orientation Not on file Last Filed Vital Signs Vital Sign Reading Time Taken Comments Blood Pressure 121/82 07/31/2023 3:54 PM EDT Pulse 73 07/31/2023 3:54 PM EDT Temperature 36.6 ??C (97.9 ??F) 06/02/2023 7:48 AM ED T Respiratory Rate 18 06/02/2023 7:48 AM EDT Oxygen Saturation 95% 06/02/2023 7:48 AM EDT Inhaled Oxygen Concentration - - Weight 105.2 kg (232 lb) 07/31/2023 3:54 PM EDT Height 175.3 cm (5' 9) 07/31/2023 3:54 PM EDT Body Mass Index 34.26 07/31/2023 3:54 PM EDT Plan of Treatment Upcoming Encounters Date Type Department Care Team (Late st Contact Info) Description 10/11/2023 8:00 AM EDT [place] [address] Edna Byrd, ALARM INVESTIGATOR [facility] [place] [address] 10/25/2023 11:20 AM EDT Office [place] [address] Priscilla Blackwell APRN [facility] [place] [address] Health Maintenance Due Date Last Done Comments CT Colonography 1957 Colonoscopy 1957 Colorectal Cancer Screening 1957 FIT DNA 1957 FIT 1957 Sigmoidoscopy (10 year) with FIT yearly 1957 Sigmoidoscopy 1957 HIV screen 10/21/1975 Tdap adult 1976 Tetanus vaccine 1976 Zoster vaccine (1 of 2) 10/21/2007 Covid-19 Vaccine ( - 2022-2 4 season) 2022 Pneumoccocal Vaccine: 65+ (1 of 1 - PCV) 2022 Influenza (Flu) vaccine (1 o f 1 - Influenza standard series) 10/08/2023 Diabetes Screening (HgbA1C o r Glucose) 06/01/2026 06/02/2023, 06/01/2023, 05/31/2023, Additional history exists Lipid Screening 04/18/2028 04/19/2023 Hepatitis C Screening Completed 04/28/2023 Procedures Procedure Name Priority Date/Time Associated Diagnosis Comments FILM LIBRARY STORAGE ONLY CT HEAD Routine 08/11/2023 6:55 PM EDT FILM LIBRARY STORAGE ONLY CT CHEST ABDOMEN PELVIS Routine 08/11/2023 6:[address] ANGIOGRAM CHEST ABDOMEN PELVIS W CONTRAST Routine 07/31/2023 3:45 PM EDT Dissection of aorta, unspecified portion of aorta CREATININE STAT 07/31/2023 1:08 PM EDT Dissection of thoracoabdominal aortic aneurysm (TAAA) FILM LIBRARY STORAGE ONLY DX HIP Routine 07/27/2023 9:25 AM EDT DIAGNOSTIC RADIOLOGY SCAN 07/27/2023 12:00 AM EDT DIAGNOSTIC RADIOLOGY SCAN 07/27/2023 12:00 AM EDT BASIC METABOLIC PANEL Routine 06/02/2023 12:59 AM EDT HEPATITIS C ANTIBODY Routine 04/28/2023 6:11 PM EDT HDL/CHOL PROFILE Routine 04/19/2023 12:3 5 AM EDT from Last 3 Months or Most Recently Relevant to Health Maintenance Results * Film Library- Storage Only CT Head (08/11/2023 6:55 PM EDT) Narrative [facility] - 08/11/2023 6:55 PM EDT This exam is auto-finalizing. It's purpose is for storage only. Tiarra Meredith MD [facility] FILM LIBRARY ORD ERABLES Performing Organization Address [facility] de Phone Number [place], [place] * Film Library- Storage Only CT Chest Abdomen Pelvis (08/11/2023 6:55 PM EDT) Narrative [facility] - 08/11/2023 6:55 PM EDT This exam is auto-finalizing. It's purpose is for storage only. Tiarra Meredith MD [facility] FILM LIBRARY ORD ERABLES Performing Organization Address [facility] de Phone Number [place], [place] * CT Angiogram Chest Abdomen Pelvis w Contrast (07/31/2023 3:45 PM EDT) WORKSTATION ID [id number] [facility] Anatomical Region Laterality Modality Abdomen, Chest Computed Tomogra phy Impressions 08/01/2023 9:39 AM EDT 1. ??Unchanged appearance and extent of the known [place] B dissection extending from the origin of [...] who have questions please contact the health acute care occupational therapist that requested your imaging first. ? Electronically signed by: Nicolette Cuevas MD, [facility] ??([phone]), at 08/01/2023 9:39 AM Narrative 08/01/2023 9:39 AM EDT EXAMINATION: CT [...] thoracic aorta. Unchanged extent of the known [place] type B dissection extending from the origin [...] administration of contrast. Administered 97.0 ml of [id number] mg/ml. Maximum intensity projection (MIP) were reformatted. [...] thoracic aorta. Unchanged extent of the known [place] type B dissection extending from the origin [...] patients who have questions please contactthe health acute care occupational therapist that requested your imaging first. Electronically signed by: Nicolette Cuevas MD, [facility]([phone]), at 08/01/2023 9:39 AM Georges Jacob MD IMG CT ORDERABLES * (ABNORMAL) Creatinine (07/31/2023 1:08 PM EDT) Creatinine 1.72(H) 0.80 - 1.50 mg/dL [facility] Est Glomerular Filtration Rate 44(L) >=60 mL/min/1. 73 m?? [facility] Comment: This patient's estimated GFR [...] In Lab Arina Segovia APRN CHEMISTRY ORDERABLES Performing Organization Address City/[facility]/ZIP Co de Phone Number [facility] [place] [place] [address] * Film Library- Storage Only DX Hip (07/27/2023 9:25 AM EDT) 09/20/2023 6:15 AM EDT Narrative [facility] 09/20/2023 6:15 AM EDT This exam is auto-finalizing. It's purpose is for storage only. Rick Shaw MD IMG FILM LIBRARY OR DERABLES Performing Organization Address [facility] de Phone Number [place], [place] * Scan Doc: Diagnostic Radiology (07/27/2023 12:00 AM EDT) Only the most recent of2 resultswithin the time period is included. Anatomical Region Laterality Modality Other Narrative 07/27/2023 12:00 AM EDT Ordered by an unspecified provider. Scanning Provider MEDIA MGR SCAN EXT O RDR/RSLT * (ABNORMAL) Basic Metabolic Panel (non-fasting) (06/02/2023 12:59 AM EDT) Glucose 112 65 - 199 mg/dL [facility] Comment:Diabetes: >=200 mg/d L plus symptoms Blood Urea Nitrogen 36(H) 10 - 20 mg/dL [facility] Creatinine 1.94(H) 0.80 - 1.50 mg/dL [facility] Sodium 139 135 - 145 mmol/L [facility] Potassium 4.0 3.5 - 5.0 mmol/L [facility] Comment: Please note: ??Patients with WBC >100,000 may have falsely elevated Potassium levels. ??For accurate Potassium quantification in these patients send serum separator tube (gold top) for subsequent determinations. ??Contact the Clinical Chemistry Laboratory if there are any questions. Chloride 105 98 - 107 mmol/L [facility] Carbon Dioxide 21(L) 22 - 31 mmol/L [facility] Anion Gap 13 5 - 15 mmol/L [facility] Calcium 9.8 8.5 - 10.5 mg/dL [facility] Est Glomerular Filtration Rate 38(L) >=60 mL/min/1. 73 m?? [facility] Comment: This patient's estimated GFR [...] and symptoms in addition to eGFR. Blood 06/02/2023 12:5 9 AM EDT 06/02/2023 1:07 AM EDT Narrative Resulting Agency Comment Spec In Lab Edna Byrd ALARM INVESTIGATOR CHEMISTRY ORDERABLE S [facility] [place] [place] [address] * Hepatitis C Antibody (04/28/2023 6:11 PM EDT) Hepatitis C Antibody Negative Negative [facility] Blood 04/28/2023 6:11 PM EDT 04/28/2023 6:20 PM EDT Narrative Resulting Agency Comment Spec In Lab Angy Sainz ALARM INVESTIGATOR CHEMISTRY ORDERABLES [facility] [place] [address] * HDL/Cholesterol Profile (04/19/2023 12:35 AM EDT) Cholesterol, Total 220 mg/dL [facility] Comment: Desirable: ? <200 mg/dL Borderline High: 200-239 mg/dL Higher: ?>lh=634 mg/dL HDL Cholesterol 86 mg/dL [facility] Comment: Females: High Risk: <50 mg/dL Males: High Risk: <40 mg/dL Cholesterol/HDL Ratio 2.6 ratio [facility] Lipid Interpretation See Note [facility] Comment: It is important to review the results of ??your lipid panel with your health care provider. You can compare your lipid results to the ranges below and whether they are in the desirable range. These ranges are only meant to be used for people without known cardiac disease, history of stroke, or peripheral vascular disease (blockages in the leg arteries or diabetes). If ??you have one of these conditions, your desirable LDL-C (bad cholesterol) will likely be even lower. ACC/AHA Guidelines (most recently Toni et al. JACC 11/09/21): ?? For individuals with atherosclerotic cardiovascular disease (ASCVD)or LDL >ck=500 mg/dL, use a high-intensity statin (40-80 mg atorvastatin or 20-40 mg rosuvastatin with goal >or=50% LDL reduction) ?? For individuals with diabetes, age 40-75 without ASCVD, moderate-intensity statin (goal 30-49% LDL reduction); consider high intensity statin for those with increased risk. ?? For adults without diabetes or ASCVD, aged 40-75 with LDL 70-189 mg/dL, estimate 10 year ASCVD risk with smarphrase .ASCVDRISK or Dynamed Decisions. If 10 year risk is 7.5%-19.9% (intermediate risk), consider moderate intensity statin based on risk enhancers and patient preference. Consider coronary artery calcium test (CT) if there is concern regarding the benefit of a statin. If ten year risk is >or=20%, initiate high-intensity statin. ?? Evaluate for secondary causes of triglycerides >500 mg/dL or LDL >190 mg/dL. ?? Lifestyle modification is a critical component of ASCVD risk reduction. ?? If not reaching LDL goals on maximally tolerated statin, consider ezetimibe and/or a PCSK9 inhibitor: ?? Target for primary prevention: LDL<100 ?? Target for those with ASCVD or diabetes and 10-year risk >or=20%: LDL<70 ?? Target for thos with very high risk ASCVD: LDL<55 (Very high risk being the presence of 2 or more of: recent acute coronary syndrome, past myocardial infarction, ischemic stroke, symptomatic peripheral artery disease) Blood 04/19/2023 12:3 5 AM EDT 04/19/2023 12:45 AM EDT Narrative Resulting Agency Comment Spec In Lab Nilda Jeronimo ALARM INVESTIGATOR CHEMISTRY ORDERABL ES [facility] [place] [phone] from Last 3 Months or Most Recently Relevant to Health Maintenance Advance Directives Documents on File Type Date Recorded Patient Guidance Services Coordinator Expl anation Advance Directives and Livin g Will 05/29/2023 4:11 PM * Do NOT Attempt CPR - Inpatient (Latest Code Status on File) Date Activated Date Inactivated Comments 05/20/2023 5:31 PM 06/02/2023 2:53 PM Question Answer Comments Code Status decision made by: Healthcare Agent ( DPOA) Name (and relationship if needed): , tete Content of discussion: No escalation of care Independent of Code Status d ecision, are there any PRE Arrest limitations (Intubation, Pressors, Cardioversion / Pacing, etc)? Yes PRE Arrest Intubation Permitted? No * Do NOT Attempt CPR - Inpatient Date Activated Date Inactivated Comments 05/15/2023 9:40 AM 05/20/2023 5:31 PM Question Answer Comments Code Status decision made by: Healthcare Agent ( DPOA) Name (and relationship if needed): , tete Independent of Code Status d ecision, are there any PRE Arrest limitations (Intubation, Pressors, Cardioversion / Pacing, etc)? Yes PRE Arrest Intubation Permitted? No * Attempt Cardiopulmonary Resuscitation - Inpatient Date Activated Date Inactivated Comments 04/18/2023 4:08 AM 05/15/2023 9:40 AM Question Answer Comments Code Status decision made by: Patient Content of discussion: Will verify on arrival Care Teams Psychometric Examiner Relationship Specialty Start Date End Date Brien Phillips [place] [address] PCP - General Internal Medicine 08/31/23
--- OUTSIDE RECORDS SUMMARY | 2023-09-25 16:23 | XMS_ITS | Encounter Summary ---
Author Organization [facility] Address [facility] [place] [address] Care Team Providers Care Cycle Manager Name Role Phone Fransico Remy MD Primary Care Provider Encounter Details Date Type Department Care Team (Late st Contact Info) Description 07/27/2023 9:25 AM EDT Ancillary Procedure [place] [address] Rick Shaw MD [facility] [place] [address] Social History Tobacco Use Types Packs/Day Years Used Date Smoking Tobacco: Unknown Alcohol Use Standard Drinks/Week Comments Defer 0 (1 standard drink = 0.6 oz pur e alcohol) [facility] Utilities Answer Date Recorded In the past 12 months has [facility] [facility], gas, oil, or water [employer] threatened to shut off services in your [...] place to sleep or slept in a halfway (including now)? No 04/20/2023 Sex and Gender Information Value Date Recorded Sex Assigned at Not on file Gender Identity Not on file Sexual Orientation Not on file documented as of this encounter Plan of Treatment Upcoming Encounters Date Type Department Care Team (Late st Contact Info) Description 10/11/2023 8:00 AM EDT [place] [address] Edna Byrd, [facility] [address] 10/25/2023 11:20 AM EDT Office [place] [phone] Priscilla Blackwell, [facility] [place] [address] documented as of this encounter Procedures Procedure Name Priority Date/Time Associated Diagnosis Comments FILM LIBRARY STORAGE ONLY DX HIP Routine 07/27/2023 9:25 AM EDT documented in this encounter Results * Film Library- Storage Only DX Hip (07/27/2023 9:25 AM EDT) 09/20/2023 6:15 AM EDT Narrative RAD - 09/20/2023 6:15 AM EDT This exam is auto-finalizing. It's purpose is for storage only. Rick Shaw MD IMG FILM LIBRARY OR DERABLES [facility] [place], [place] documented in this encounter Visit Diagnoses Not on filedocumented in this encounter Care Teams Cycle Manager Relationship Specialty Start Date End Date Fransico Remy MD [address] [place] [id number] PCP - General Emergency Medicine 04/18/23 08/30/23 documented as of this encounter
--- OUTSIDE RECORDS SUMMARY | 2023-09-25 16:23 | XMS_ITS | Encounter Summary ---
Author Organization [facility] [place] [address] Care Team Providers Care Campus Safety Officer Name Role Phone Fransico Remy MD Primary Care Provider [phone] Reason for Referral * Diagnostic Test (Routine) - New Request Specialty Diagnoses / Procedures Referred By Dannie lozano Referred To Contact Radiology Diagnoses Dissection of thoracoabdominal aortic aneurysm (TAAA) Procedures CT Angiogram Chest Abdomen Pelvis w Contrast Dhaval Kidd MD [facility] [place] [address] [facility] [place] [address] Referral ID Status Reason Start Date Expiration Date Visits Requested Visits Authorized [id number] New Request Specialty Service Requested 07/31/2023 01/29/2025 1 1 Encounter Details Date Type Department Care Team (Latest Contact Info) Description 07/31/2023 4:00 PM EDT Office Visit [place] [address] Dhaval Kidd MD [facility] [place] [address] 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) Social History Tobacco Use Types Packs/Day Years Used Date Smoking Tobacco: Unknown Alcohol Use Standard Drinks/Week Comments Defer 0 (1 standard drink = 0.6 oz pur e alcohol) [facility] Utilities Answer Date Recorded In the [...] place to sleep or slept in a penitentiary (including now)? No 04/20/2023 Sex and Gender Information Value Date Recorded Sex Assigned at Not on file Gender Identity Not on file Sexual Orientation Not on file documented as of this encounter Last Filed Vital Signs Vital Sign Reading Time Taken Comments Blood Pressure 121/82 07/31/2023 3:54 PM EDT Pulse 73 07/31/2023 3:54 PM EDT Temperature - - Respiratory Rate - - Oxygen Saturation - - Inhaled Oxygen Concentration - - Weight 105.2 kg (232 lb) 07/31/2023 3:54 PM EDT Height 175.3 cm (5' 9) 07/31/2023 3:54 PM EDT Body Mass Index 34.26 07/31/2023 3:54 PM EDT documented in this encounter Progress Notes * Dhaval Kidd MD - 07/31/2023 4:00 PM EDT OUTPATIENT VASCULAR SURGERY CONSULTATION Reason for Visit: History of Present Illness: Bello 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 Atherosclerotic Risk Factors: (n) DM (n) HTN (n) CAD (n) CHF (n) Hyperlipidemia (y) CVA has no history on file for tobacco use. Patient Active Problem List Diagnosis Code ICH (intracerebral hemorrhage) I61.9 Current Outpatient Medications: acetaminophen (Tylenol) 325 mg tablet, Take 3 tablets by mouth every 6 hours as needed for Pain or Fever., Disp: , Rfl: amLODIPine (Norvasc) 10 mg tablet, Take 1 tablet by mouth daily., Disp: , Rfl: carboxymethylcellulose (Refresh Plus) 0.5 % Dropperette, Place 1 drop into both eyes 3 times daily as needed., Disp: , Rfl: camphor-methyl salicyl-menthoL (Bengay Ultra Strength) Cream, Apply topically 2 times daily as needed (hip pain)., Disp: , Rfl: aspirin 81 mg chewable tablet, Take 81 mg by mouth daily., Disp: , Rfl: chlorthalidone (Hygroton) 25 mg tablet, Take 1 tablet by mouth nightly., Disp: , Rfl: cloNIDine (Catapres) 0.2 mg tablet, Take 1 tablet by mouth 3 times daily., Disp: , Rfl: enoxaparin (Lovenox) 40 mg/0.4 mL Syringe, Inject 0.4 mLs subcutaneously nightly., Disp: , Rfl: ergocalciferoL, vitamin D2, (vitamin D2) 200 mcg/mL (8,000 unit/mL) Drops, Take 6.25 mLs by mouth once a week., Disp: , Rfl: FLUoxetine (PROzac) 20 mg capsule, Take 1 capsule by mouth daily., Disp: , Rfl: ipratropium-albuteroL (Duoneb) 0.5 mg-3 mg(2.5 mg base)/3 mL Solution for Nebulization, Take 0.5 mgby nebulization every 4 hours as needed., Disp: , Rfl: lisinopriL (Zestril) 40 mg tablet, Take 1 tablet by mouth daily., Disp: , Rfl: bisacodyL (Dulcolax) 10 mg Suppository, Place 1 suppository rectally daily as needed., Disp: , Rfl: bisacodyl EC (Dulcolax) 5 mg Tablet, Delayed Release (E.C.), Take 2 tablets by mouth 2 times daily as needed for Constipation., Disp: , Rfl: lactulose (Chronulac) 20 gram/30 mL Solution, Take 30 mLs by mouth daily as needed., Disp: , Rfl: polyethylene glycoL (Miralax) 17 gram oral powder packet, Take 17 g by mouth daily., Disp: , Rfl: QUEtiapine (SEROquel) 25 mg tablet, Take 3 tablets by mouth nightly., Disp: , Rfl: senna-docusate (Pericolace) 8.6-50 mg Tablet, Take 2 tablets by mouth 2 times daily as needed for Constipation., Disp: , Rfl: simethicone (Mylicon) 40 mg/0.6 mL Drops, Suspension, Take 0.6 mLs by mouth every 6 hours as needed., Disp: , Rfl: sodium chloride (NebuSal) 3 % Solution for Nebulization, Take 4 mLs by nebulization every 4 hours as needed for Cough., Disp: , Rfl: tamsulosin (Flomax) 0.4 mg capsule, Take 1 capsule by mouth daily., Disp: , Rfl: terazosin (Hytrin) 1 mg capsule, Take 1 capsule by mouth 2 times daily., Disp: , Rfl: No current facility-administered medications for this visit. No Known Allergies Physical Exam: BP 121/82 (BP Location (NBP): Right arm, Patient Position: Sitting, BP Cuff Sizes: Adult (25-34 cm)) Pulse 73 Ht 175.3 cm (5' 9) Wt 105.2 kg (232 lb) BMI 34.26 kg/m?? General - NAD, appears stated age, R eye patch Neuro - Alert and Oriented, Motor Sensory grossly intact Skin - No prominent markings or lesions Ear, Nose, Throat - No masses, No lesions Cardiac - RRR, no murmurs Lungs - Clear Abd - Soft, NT, ND, No palpable pulsatile masses Musculoskeletal- full ROM upper and lower extremities Psych- alert oriented X3 Extremities - Warm, pink, no edema, brisk capillary refill Labs: Recent Results (from the past 72 hour(s)) Creatinine Result Value Ref Range Creatinine 1.72 (H) 0.80 - 1.50 mg/dL Estimated GFR 44 (L) >=60 mL/min/1.73 m?? Studies: CTA IMPRESSION 1. 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 Maximal diameter of the involved thoracic aorta of 42 mm, similar to prior. 2. False lumen continues to supply the two left renal arteries and BRIAN, no interval signs of ischemia. 3. New trace pericardial effusion. 4. Intermediate attenuation right renal cyst, possibly artifact. Consider renal ultrasound for further evaluation. 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 F/u CTA CAP in 1 year documented in this encounter Plan of Treatment Upcoming Encounters Date Type Department Care Team (Late st Contact Info) Description 10/11/2023 8:00 AM EDT Office [place] [address] Edna Byrd, [facility] [place] [place] [address] 10/25/2023 11:20 AM EDT Office [place] [address] Priscilla Blackwell, [facility] [place] [address] Scheduled Orders Name Type Priority Associated Diagnoses Orde r Schedule Creatinine Lab Routine Dissection of thoracoabdominal aortic aneurysm (TAAA) Expected: 07/30/2024, Expires: 01/29/2025 CT Angiogram Chest Abdomen Pelvis w Contrast Imaging Routine Dissection of thoracoabdominal aortic aneurysm (TAAA) Expected: 07/30/2024, Expires: 01/29/2025 documented as of this encounter Visit Diagnoses Diagnosis Dissection of thoracoabdominal aortic aneurysm (TAAA)- Primary documented in this encounter Care Teams Campus Safety Officer Relationship Specialty Start Date End Date Fransico Remy MD [address] [place] [address] PCP - General Emergency Medicine 04/18/23 08/30/23 documented as of this encounter
--- OUTSIDE RECORDS SUMMARY | 2023-09-25 16:23 | XMS_ITS | Encounter Summary ---
Author Organization [facility] Address [facility] [place] [address] Care Team Providers Care Flight Crew Time Clerk Name Role Phone Fransico Remy MD Primary Care Provider [phone] Encounter Details Date Type Department Care Team (Late st Contact Info) Description 08/11/2023 6:35 PM EDT Telehealth notes only TeleHealth [facility] [place] [address] Telehealth, Neurology None Social History Tobacco Use Types Packs/Day Years Used Date Smoking Tobacco: Unknown Alcohol Use Standard Drinks/Week Comments Defer 0 (1 standard drink = 0.6 oz pur e alcohol) [facility] Utilities Answer Date Recorded In the [...] place to sleep or slept in a senior living (including now)? No 04/20/2023 Sex and Gender Information Value Date Recorded Sex Assigned at Not on file Gender Identity Not on file Sexual Orientation Not on file documented as of this encounter Plan of Treatment Upcoming Encounters Date Type Department Care Team (Late st Contact Info) Description 10/11/2023 8:00 AM EDT Office [place] [phone] Edna Byrd, [facility] [place] [address] 10/25/2023 11:20 AM EDT Office [place] [address] Priscilla Blackwell, [facility] [place] [address] documented as of this encounter Visit Diagnoses Not on filedocumented in this encounter Care Teams Flight Crew Time Clerk Relationship Specialty Start Date End Date Fransico Remy MD [address] [place] [address] PCP - General Emergency Medicine 04/18/23 08/30/23 documented as of this encounter
--- OUTSIDE RECORDS SUMMARY | 2023-09-25 16:23 | XMS_ITS | Encounter Summary ---
Author Organization [facility] Address [facility] [place] [address] Care Team Providers Care Machine Lay Out Worker Name Role Phone Brien Phillips Primary Care Provider + Encounter Details Date Type Department Care Team (Late st Contact Info) Description 07/27/2023 Interpretation Only [place] [address] Rick Shaw MD [facility] [place] [address] Social History Tobacco Use Types Packs/Day Years Used Date Smoking Tobacco: Unknown Alcohol Use Standard Drinks/Week Comments Defer 0 (1 standard drink = 0.6 oz pur e alcohol) [facility] Utilities Answer Date Recorded In the past 12 months has [employer], gas, oil, or water [employer] threatened to shut off services in your [...] place to sleep or slept in a retirement (including now)? No 04/20/2023 Sex and Gender Information Value Date Recorded Sex Assigned at Not on file Gender Identity Not on file Sexual Orientation Not on file documented as of this encounter Plan of Treatment Upcoming Encounters Date Type Department Care Team (Late st Contact Info) Description 10/11/2023 8:00 AM EDT [place] [address] Edna Byrd, [facility] [place] [address] 10/25/2023 11:20 AM EDT Office [place] [address] Priscilla Blackwell, [facility] [place] [address] documented as of this encounter Procedures Procedure Name Priority Date/Time Associated Diagnosis Comments FILM LIBRARY STORAGE ONLY DX HIP Routine 07/27/2023 9:25 AM EDT documented in this encounter Results * Film Library- Storage Only DX Hip (07/27/2023 9:25 AM EDT) 09/20/2023 6:15 AM EDT Narrative [facility] - 09/20/2023 6:15 AM EDT This exam is auto-finalizing. It's purpose is for storage only. Rick Shaw MD IMG FILM LIBRARY OR DERABLES [facility] RAD [place], [place] documented in this encounter Visit Diagnoses Not on filedocumented in this encounter Care Teams Machine Lay Out Worker Relationship Specialty Start Date End Date Brien Phillips PA [facility] [place] [address] PCP - General Internal Medicine 08/31/23 documented as of this encounter
--- OUTSIDE RECORDS SUMMARY | 2023-09-25 16:23 | XMS_ITS | Encounter Summary ---
Author Organization [facility] Address [facility] [place] [address] Care Team Providers Care Mask Design Engineer Name Role Phone Fransico Rmey MD Primary Care Provider [phone] Encounter Details Date Type Department Care Team (Late st Contact Info) Description 08/11/2023 Telephone [place] [phone] Humble Gaviria MD [facility] [place] [address] Social History Tobacco Use Types Packs/Day Years Used Date Smoking Tobacco: Unknown Alcohol Use Standard Drinks/Week Comments Defer 0 (1 standard drink = 0.6 oz pur e alcohol) [facility] Utilities Answer Date Recorded In the past 12 months has [employer], gas, oil, or water [email or web address] threatened to shut off services in your [...] No 04/20/2023 Housing Stability Vital Sign Answer Lsoan e Recorded In the last 12 months, [...] place to sleep or slept in a [place] facility (including now)? No 04/20/2023 Sex and Gender Information Value Date Recorded Sex Assigned at Not on file Gender Identity Not on file Sexual Orientation Not on file documented as of this encounter Miscellaneous Notes * Telephone Encounter - Humble Gaviria MD - 08/11/2023 7:16 PM EDT Was paged by the transfer center regarding Bello Acosta who presented there with agitation. A CTA was performed which showed a stable type B dissection. The OSH just wanted to compare to our images and I told them it was similar. He will follow up as regularly scheduled. Humble Gaviria MD Vascular Fellow PGY6, pager [phone] documented in this encounter Plan of Treatment Upcoming Encounters Date Type Department Care Team (Late st Contact Info) Description 10/11/2023 8:00 AM EDT [place] [phone] Edna Byrd [facility] [place] [address] 10/25/2023 11:20 AM EDT Office [place] [phone] Priscilla Blackwell [facility] [place] [address] documented as of this encounter Visit Diagnoses Not on filedocumented in this encounter Care Teams Mask Design Engineer Relationship Specialty Start Date End Date Fransico Remy MD [address] [place] [address] PCP - General Emergency Medicine 04/18/23 08/30/23 documented as of this encounter
--- OUTSIDE RECORDS SUMMARY | 2023-09-25 16:23 | XMS_ITS | Encounter Summary ---
Author Organization [facility] Address [facility] [place] [address] Care Team Providers Care Registered Respiratory Technician Name Role Phone Fransico Remy MD Primary Care Provider [phone] Encounter Details Date Type Department Care Team (Late st Contact Info) Description 08/11/2023 7:05 PM EDT Ancillary Procedure [place] [address] Tiarra Meredith MD [facility] [place] [address] Social History Tobacco Use Types Packs/Day Years Used Date Smoking Tobacco: Unknown Alcohol Use Standard Drinks/Week Comments Defer 0 (1 standard drink = 0.6 oz pur e alcohol) [facility] Utilities Answer Date Recorded In the past 12 months has [employer], [employer], oil, or water [employer] threatened to shut off services in your [...] 8:00 AM EDT [place] [address] Edna Byrd, [facility] [place] [address] 10/25/2023 11:20 AM EDT Office [place] [address] Priscilla Blackwell, [facility] [place] [address] documented as of this encounter Procedures Procedure Name Priority Date/Time Associated Diagnosis Comments FILM LIBRARY STORAGE ONLY CT HEAD Routine 08/11/2023 6:55 PM EDT documented in this encounter Results * Film Library- Storage Only CT Head (08/11/2023 6:55 PM EDT) Narrative [facility] - 08/11/2023 6:55 PM EDT This exam is auto-finalizing. It's purpose is for storage only. Tiarra AKINS FILM LIBRARY ORD ERABLES [place], [place] documented in this encounter Visit Diagnoses Not on filedocumented in this encounter Care Teams Registered Respiratory Technician Relationship Specialty Start Date End Date Fransico Remy MD [address] [place] [address] PCP - General Emergency Medicine 04/18/23 08/30/23 documented as of this encounter
--- OUTSIDE RECORDS SUMMARY | 2023-09-25 16:23 | XMS_ITS | Encounter Summary ---
Author Organization [facility] Address [place] [address] Care Team Providers Care Rod Machine Operator Name Role Phone Brien Phillips Primary Care Provider + Encounter Details Date Type Department Care Team (Late st Contact Info) Description 09/07/2023 Telephone [facility] [place] [phone] Steve Carmona Social History Tobacco Use Types Packs/Day Years Used Date Smoking Tobacco: Unknown Alcohol Use Standard Drinks/Week Comments Defer 0 (1 standard drink = 0.6 oz pur e alcohol) [facility] Utilities Answer Date Recorded In the [...] encounter Miscellaneous Notes * Telephone Encounter - Steve Carmona - 09/07/2023 1:49 PM EDT Incoming call from Bello's spouse in regards to a recent referral we received. I sent a secure chatto Smiley to advise. documented in this encounter Plan of Treatment Upcoming Encounters Date Type Department Care Team (Late st Contact Info) Description 10/11/2023 8:00 AM EDT Office Visit [place] [address] Edna Byrd, [facility] [place] [address] 10/25/2023 11:20 AM EDT Office Visit [place] [address] Priscilla Blackwell [facility] [place] [address] documented as of this encounter Visit Diagnoses Not on filedocumented in this encounter Care Teams Rod Machine Operator Relationship Specialty Start Date End Date [place] [address] PCP - General Internal Medicine 08/31/23 documented as of this encounter
--- OUTSIDE RECORDS SUMMARY | 2023-09-25 16:24 | XMS_ITS | Encounter Summary ---
Author Organization [facility] Address [facility] [place] [address] Care Team Providers Care Bench Examiner Name Role Phone Fransico Remy MD Primary Care Provider [phone] Reason for Visit * Auth/Cert (Routine) Specialty Diagnoses / Procedures Referred By Dannie lozano Referred To Contact Diagnoses ICH (intracerebral hemorrhage) ICH Hellen Smith MD [facility] [place] [address] [facility] Referral ID Status Reason Start Date Expiration Date Visits Re quested Visits Authorized [id number] 1 1 Encounter Details Date Type Department Care Team (Late st Contact Info) Description 04/20/2023 3:37 AM EDT Anesthesia Event XRay at [address] [place] [address] Dorina Card MD [facility] [place] [address] Anesthesia Record Procedure Summary Procedure Name Responsible Anesthesiologist Anesthesia Start Time Anesthesia Stop Time XR CHEST ONE VIEW Events Date Time Event Comment 04/20/2023 0327 AN Verify Meds Name Total Propofol 200 mg rocuronium 100 mg * Agents No agents on file. * Blood No blood administrations on file. Lines, Drains, and Airways Type Details Placement Removal External Catheter 05/31/23; 1400; exte rnal catheter applied 05/31/23 1400 by Flakito, Lj S, RN documented in this encounter Social History Tobacco Use Types Packs/Day Years Used Date Smoking Tobacco: Unknown Alcohol Use Standard Drinks/Week Comments Defer 0 (1 standard drink = 0.6 oz pur e alcohol) [facility] Utilities Answer Date Recorded In [...] place to sleep or slept in a group home (including now)? No 04/20/2023 Sex and Gender Information Value Date Recorded Sex Assigned at Not on file Gender Identity Not on file Sexual Orientation Not on file documented as of this encounter OR Notes * Anesthesia Procedure Notes - Dorina Card MD - 04/20/2023 3:39 AM EDT Associated Order(s): Emergent Intubation Emergent Intubation Date/Time: 04/20/2023 3:35 AM Urgency: emergent Reason for Intubation: Procedure Diagnosis: hypoxemia General Information and Staff Patient location during procedure: NSCU Performed by: Resident/DIPPER OPERATOR: Dorina Card MD Other anesthesia staff: Satish Jasso MD Authorized by: Fransico Macdonald MD Pre-Intubation Assessment and Preparation: Time Out Performed: Yes Preoxygenated: yes Sedation Provided: anesthesia Muscle Relaxant Used: Muscle relaxant Cervical Spine Precautions: No Cricoid Pressure Applied: No Mask difficulty assessment: 0 - Not Attempted Airway Instrumentation Bag/Mask (Kheterpal) Classification: 0 - Not Attempted Oral AIrway Used? No Nasal Airway Used? No Number of attempts: 1 Airway not difficult Airway Details Final airway type: endotracheal tube Successful airway: ETT Cuffed: yes Successful intubation technique: video laryngoscopy Endotracheal tube insertion site: oral Blade: Indirect VIDEO Blade size: D-blade. ETT size (mm): 8.0 Placement verified by: chest auscultation and capnometry Measured from: teeth ETT to teeth (cm): 26 Additional Comments 200mg propofol and 100mg rocuronium documented in this encounter Plan of Treatment Upcoming Encounters Date Type Department Care Team (Late st Contact Info) Description 10/11/2023 8:00 AM EDT Office [place] [address] [address]na [address] [facility] [place] [address] 10/25/2023 11:20 AM EDT Office Visit Orthopaedics at [place] [phone] Priscilla Blackwell [facility] [place] [address] documented as of this encounter Procedures Procedure Name Priority Date/Time Associated Diagnosis Comments INTUBATION - ANES ONLY Routine 04/20/2023 3:35 AM EDT documented in this encounter Results * INTUBATION - ANES ONLY (04/20/2023 3:35 AM EDT) Narrative Fransico Macdonald MD - 04/20/2023 3:35 AM EDT Dorina Card MD ? 04/20/2023 ??3:42 AM Emergent Intubation Date/Time: 04/20/2023 3:35 AM Urgency: emergent Reason for Intubation: ?? Procedure Diagnosis: ??hypoxemia General Information and Staff Patient location during procedure: ?? NSCU Performed by: Resident/DIPPER OPERATOR: Dorina Card MD Other anesthesia staff: Satish Jasso MD Authorized by: Fransico Macdonald MD ?? Pre-Intubation Assessment and Preparation: Time Out Performed: ??Yes Preoxygenated: yes Sedation Provided: anesthesia Muscle Relaxant Used: ??Muscle relaxant Cervical Spine Precautions: ??No Cricoid Pressure Applied: ??No Mask difficulty assessment: 0 - Not Attempted Airway Instrumentation Bag/Mask (Kheterpal) Classification: ??0 - Not Attempted Oral AIrway Used? ??No Nasal Airway Used? ??No Number of attempts: 1 Airway not difficult Airway Details Final airway type: endotracheal tube Successful airway: ETT Cuffed: yes Successful intubation technique: video laryngoscopy Endotracheal tube insertion site: oral Blade: Indirect VIDEO Blade size: D-blade. ETT size (mm): 8.0 Placement verified by: chest auscultation and capnometry Measured from: teeth ETT to teeth (cm): 26 Additional Comments 200mg propofol and 100mg rocuronium Franisco Macdonald MD ANES INPUT W LINKED [facility] documented in this encounter Visit Diagnoses Not on filedocumented in this encounter Administered Medications Inactive Administered Medications - up to 3 most recent administrations Medication Order MAR Action Action Date Dose Rate Site propofoL (Diprivan) 10 mg/mL bolus injection (Anesthesia) Intravenous, PRN, Starting on Stacie 04/20/23 at 0334, Until 04/21/23 at 1541, Anesthesia Intra-op Given 04/20/2023 3:34 AM EDT 200 mg rocuronium (Zemuron) (10 mg/mL) multi-dose injection Intravenous, PRN, Starting on Stacie 04/20/23 at 0334, Until 05/20/23 at 0610, Anesthesia Intra-op, Routine Given 04/20/2023 3:34 AM EDT 100 mg documented in this encounter Care Teams Bench Examiner Relationship Specialty Start Date End Date Fransico Remy MD [address] [place] [address] PCP - General Emergency Medicine 04/18/23 08/30/23 documented as of this encounter
--- OUTSIDE RECORDS SUMMARY | 2023-09-25 16:24 | XMS_ITS | Encounter Summary ---
Author Organization [place] [address] Care Team Providers Care Forestry Patrolman Name Role Phone Fransico Remy MD Primary Care Provider [phone] Encounter Details Date Type Department Care Team (Late st Contact Info) Description 04/18/2023 5:45 AM EDT Ancillary Procedure [place] [phone] Nayana Barker MD [facility] [place] [address] Social History Tobacco Use Types Packs/Day Years Used Date Smoking Tobacco: Unknown Alcohol Use Standard Drinks/Week Comments Defer 0 (1 standard drink = 0.6 oz pur e alcohol) Sex and Gender Information Value Date Recorded Sex Assigned at Not on file Gender Identity Not on file Sexual Orientation Not on file documented as of this encounter Plan of Treatment Upcoming Encounters Date Type Department Care Team (Late st Contact Info) Description 10/11/2023 8:00 AM EDT [place] [phone] Edna Byrd APRN [facility] [place] [address] 10/25/2023 11:20 AM EDT Office [place] [phone] Priscilla Blackwell APRN [facility] [place] [address] documented as of this encounter Procedures Procedure Name Priority Date/Time Associated Diagnosis Comments FILM LIBRARY STORAGE ONLY DX CHEST Routine 04/18/2023 5:42 AM EDT documented in this encounter Results * Film Library- Storage Only DX Chest (04/18/2023 5:42 AM EDT) Narrative [facility] - 04/18/2023 5:42 AM EDT This exam is auto-finalizing. It's purpose is for storage only. Nayana Barker MD G FILM LIBRARY ORD ERABLES [place], [place] documented in this encounter Visit Diagnoses Not on filedocumented in this encounter Care Teams Forestry Patrolman Relationship Specialty Start Date End Date Fransico Remy MD [address] [place] [address] PCP - General Emergency Medicine 04/18/23 08/30/23 documented as of this encounter
--- OUTSIDE RECORDS SUMMARY | 2023-09-25 16:24 | XMS_ITS | Encounter Summary ---
Author Organization [facility] Address [facility] [place] [address] Care Team Providers Care Senior Network Administrator Name Role Phone Fransico Remy MD Primary Care Provider [phone] Encounter Details Date Type Department Care Team (Late st Contact Info) Description 04/18/2023 [place] [phone] Chinyere Cruz MD [facility] [place] [address] Social History Tobacco Use Types Packs/Day Years Used Date Smoking Tobacco: Unknown Alcohol Use Standard Drinks/Week Comments Defer 0 (1 standard drink = 0.6 oz pur e alcohol) Sex and Gender Information Value Date Recorded Sex Assigned at Not on file Gender Identity Not on file Sexual Orientation Not on file documented as of this encounter Miscellaneous Notes * Telephone Encounter - Chinyere Cruz MD - 04/18/2023 3:49 AM EDT 67M, undoctored on no medications, presenting to OSH after waking from sleep this morning abruptly with vertigo and emesis. 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 Will be transferred to for further care. documented in this encounter Plan of Treatment Upcoming Encounters Date Type Department Care Team (Late st Contact Info) Description 10/11/2023 8:00 AM EDT [place] [address] Edna Byrd, [facility] [place] [address] 10/25/2023 11:20 AM EDT Office [place] [address] Priscilla Blackwell, [facility] [place] [address] documented as of this encounter Visit Diagnoses Not on filedocumented in this encounter Care Teams Senior Network Administrator Relationship Specialty Start Date End Date Fransico Remy MD [address] [place] [address] PCP - General Emergency Medicine 04/18/23 08/30/23 documented as of this encounter
--- OUTSIDE RECORDS SUMMARY | 2023-09-25 16:24 | XMS_ITS | Encounter Summary ---
Author Organization [facility] [place] [address] Care Team Providers Care Whitewater Rafting Guide Name Role Phone Fransico Remy MD Primary Care Provider [phone] Encounter Details Date Type Department Care Team (Late st Contact Info) Description 04/18/2023 3:05 AM EDT Ancillary Procedure [place] [phone] Nayana Barker MD [facility] [place] [address] Social History Tobacco Use Types Packs/Day Years [...] 8:00 AM EDT Office [place] [phone] Edna Byrd APRN [facility] [place] [address] 10/25/2023 11:20 AM EDT Office [place] [phone] Priscilla Blackwell APRN [facility] DR [place] [address] documented as of this encounter Procedures Procedure Name Priority Date/Time Associated Diagnosis Comments FILM LIBRARY STORAGE ONLY CT HEAD Routine 04/18/2023 3:03 AM EDT documented in this encounter Results * Film Library- Storage Only CT Head (04/18/2023 3:03 AM EDT) Narrative [facility] - 04/18/2023 3:03 AM EDT This exam is auto-finalizing. It's purpose is for storage only. Nayana Barker MD G FILM LIBRARY ORD ERABLES [place], [place] documented in this encounter Visit Diagnoses Not on filedocumented in this encounter Care Teams Whitewater Rafting Guide Relationship Specialty Start Date End Date Fransico Remy MD [address] [place] [address] PCP - General Emergency Medicine 04/18/23 08/30/23 documented as of this encounter
--- OUTSIDE RECORDS SUMMARY | 2023-09-25 16:24 | XMS_ITS | Encounter Summary ---
Author Organization [facility] [place] [address] Care Team Providers Care Track Repair Supervisor Name Role Phone Fransico Remy MD Primary Care Provider [phone] Encounter Details Date Type Department Care Team (Late st Contact Info) Description 05/29/2023 Ophth [place] [address] Nahum Sepulveda [facility] [place] [address] Social History Tobacco Use Types Packs/Day Years Used Date Smoking Tobacco: Unknown Alcohol Use Standard Drinks/Week Comments Defer 0 (1 standard drink = 0.6 oz pur e alcohol) [facility] Utilities Answer Date Recorded In the past 12 months has e [employer], gas, oil, or water [employer] threatened to shut off services in your [...] 8:00 AM EDT Office Visit Neurology at [place] [phone] Edna Byrd, [facility] [address] 10/25/2023 11:20 AM EDT Office [place] [address] Priscilla Blackwell, [facility] [place] [address] documented as of this encounter Visit Diagnoses Not on filedocumented in this encounter Care Teams Track Repair Supervisor Relationship Specialty Start Date End Date Fransico Remy MD [address] [place] [address] PCP - General Emergency Medicine 04/18/23 08/30/23 documented as of this encounter
--- OUTSIDE RECORDS SUMMARY | 2023-09-25 16:24 | XMS_ITS | Encounter Summary ---
Author Organization [facility] [place] [address] Care Team Providers Care Hockey Scout Name Role Phone Fransico Remy MD Primary Care Provider [phone] Encounter Details Date Type Department Care Team (Late st Contact Info) Description 04/18/2023 3:10 AM EDT Ancillary Procedure [place] [phone] Nayana Barker MD [facility] [place] [address] Social History Tobacco Use Types Packs/Day Years [...] 8:00 AM EDT [place] [phone] Edna Byrd APRN [facility] [place] [address] 10/25/2023 11:20 AM EDT Office [place] [phone] Priscilla Blackwell APRN [facility] [place] [address] documented as of this encounter Procedures Procedure Name Priority Date/Time Associated Diagnosis Comments FILM LIBRARY STORAGE ONLY CT HEAD AND SPINE Routine 04/18/2023 3:06 AM EDT documented in this encounter Results * Film Library- Storage Only CT Head And Spine (04/18/2023 3:06 AM EDT) Narrative [facility] - 04/18/2023 3:06 AM EDT This exam is auto-finalizing. It's purpose is for storage only. Nayana Barker MD G FILM LIBRARY ORD ERABLES [place], [place] documented in this encounter Visit Diagnoses Not on filedocumented in this encounter Care Teams Hockey Scout Relationship Specialty Start Date End Date Fransico Remy MD [address] [place] [address] PCP - General Emergency Medicine 04/18/23 08/30/23 documented as of this encounter
--- OUTSIDE RECORDS SUMMARY | 2023-09-25 16:24 | XMS_ITS | Encounter Summary ---
Author Organization [place] [address] Care Team Providers Care Duct Maker Name Role Phone Fransico Remy MD Primary Care Provider [phone] Encounter Details Date Type Department Care Team (Late st Contact Info) Description 04/18/2023 External [place] [phone] Social History Tobacco Use Types Packs/Day Years Used Date Smoking Tobacco: Unknown Alcohol Use Standard Drinks/Week Comments Defer 0 (1 standard drink = 0.6 oz pur e alcohol) [facility] Utilities Answer Date Recorded In the past 12 months has th e electric, gas, oil, or water [employer] threatened to shut off services in your [...] place to sleep or slept in a skilled nursing (including now)? No 04/20/2023 Sex and Gender Information Value Date Recorded Sex Assigned at Not on file Gender Identity Not on file Sexual Orientation Not on file documented as of this encounter Plan of Treatment Upcoming Encounters Date Type Department Care Team (Late st Contact Info) Description 10/11/2023 8:00 AM EDT Office [place] [address] Edna Byrd, [facility] [place] [address] 10/25/2023 11:20 AM EDT Office [place] [phone] Priscilla Blackwell, [facility] [place] [address] documented as of this encounter Procedures Procedure Name Priority Date/Time Associated Diagnosis Comments ECG SCAN Routine 04/18/2023 3:30 AM EDT documented in this encounter Results * Scan Doc: ECG (04/18/2023 3:30 AM EDT) Historical Provider MEDIA MGR SCAN EX T ORDR/RSLT documented in this encounter Visit Diagnoses Not on filedocumented in this encounter Care Teams Duct Maker Relationship Specialty Start Date End Date Fransico Remy MD [address] [place] [address] PCP - General Emergency Medicine 04/18/23 08/30/23 documented as of this encounter
[2023-09-25 16:40] LABS: C & S Indicated? C&S Done As Ordered; WBC >50 HPF (0-5)
== END 2023-09-25 16:22 | disposition home or self-care (01) ==
LOC: LBN 16:21
PROVIDERS: PCP Student in an Organized Health Care Education/Training Program; Visit Provider Urology
DX: N39.0 Urinary tract infection, site not specified (principal); R33.9 Retention of urine, unspecified
CPT/HCPCS: 87077; 81003; 81015; 87086; 87186

== ENCOUNTER → 2023-10-05 15:09 | Outpatient (BNVA) | payer MEDICARE, BC, SELFPAY | PROVIDERS: PCP Student in an Organized Health Care Education/Training Program; Referring Provider Student in an Organized Health Care Education/Training Program; Visit Provider Nurse Practitioner Gerontology | DX: R33.8 Other retention of urine (principal); F03.918 Unspecified dementia, unspecified severity, with other behavioral disturbance | CPT/HCPCS: 99443 ==

== ENCOUNTER 2023-10-19 16:45 | Outpatient (REF) | payer MEDICARE, BC, SELFPAY ==
[2023-10-19 16:43] LABS: Abs Immature Grans 0.01 10^3/uL (0.0-0.06); Absolute Basophil Count 0.05 10^3/uL (0.0-0.2); Absolute Eosinophil Count 0.26 10^3/uL (0.0-0.7); Absolute Lymphocyte Count 0.97 10^3/uL (1.2-3.4); Absolute Monocyte Count 0.69 10^3/uL (0.1-0.8); Absolute Neutrophil Count 3.71 10^3/uL (1.2-6.7); Basophils % 0.9 %; Eosinophils % 4.6 %; HCT 35.4 % (40.0-50.0); HGB 11.7 g/dL (13.5-17.5); Immature Grans % 0.2 %; MCH 30.2 pg (27.0-33.0); MCHC 33.1 % (32.0-36.0); MCV 92 fL (80-95); MPV 11.7 fL (8.0-11.0); Monocytes % 12.1 %; Neutrophils % 65.2 %; Platelet Count 204 10^3/uL (130-400); RBC 3.87 10^6/uL (4.36-5.78); RDW 12.9 % (11.8-14.1); RDW-SD 42.4 fL; WBC 5.69 10^3/uL (4.4-10.8)
--- OUTSIDE RECORDS SUMMARY | 2023-10-19 16:51 | XMS_ITS | Encounter Summary ---
Author Organization [facility] Address [facility] [place] [address] Care Team Providers Care Canoe Maker Name Role Phone Brien Phillips Primary Care Provider + Reason for Visit * Reason Onset Date Comments Appointment 10/16/2023 Encounter Details Date Type Department Care Team (Late st Contact Info) Description 10/16/2023 [place] [address] Edna Byrd APRN [facility] [place] [address] Appointment Social History Tobacco Use Types Packs/Day Years Used Date Smoking Tobacco: Unknown Alcohol Use Standard Drinks/Week Comments Defer 0 (1 standard drink = 0.6 oz pur e alcohol) [facility] Utilities Answer Date Recorded In the past 12 months has [employer], gas, oil, or water [employer] threatened to shut off services in your [...] encounter Miscellaneous Notes * Telephone Encounter - Aminata Holman - 10/16/2023 4:32 PM EDT Auto-booked to next available within the preferred appointment times. * Telephone Encounter - Aminata Holman - 10/16/2023 4:30 PM EDT Copied from CRM #[id number]. Topic: Specialty Dept CRMs - Appointment Needed >> Oct 05, 2023 11:11 AM Ivy Johnson wrote: Appt Needed Specialist Edna Byrd APRN Relationship (if other than patient-full name): Tete Acosta - Appt. Type Needed: Other Reason for Visit: HCK - canceled appointment on 10/11/23 due to appointment being too early to make. States they need an appointment between 11am-2pm. documented in this encounter Plan of Treatment Upcoming Encounters Date Type Department Care Team (Late st Contact Info) Description 10/25/2023 11:20 AM EDT Office [place] [address] Priscilla Blackwell APRN [facility] [place] [address] 04/16/2024 11:00 AM EDT Office [place] [address] Edna Byrd, [facility] [place] [address] documented as of this encounter Visit Diagnoses Not on filedocumented in this encounter Care Teams Canoe Maker Relationship Specialty Start Date End Date Brien Phillips PA [facility] [place] [address] PCP - General Internal Medicine 08/31/23 documented as of this encounter
--- OUTSIDE RECORDS SUMMARY | 2023-10-19 16:51 | XMS_ITS | Encounter Summary ---
Author Organization [facility] Address [facility] [place] [address] Care Team Providers Care Cancellation Clerk Name Role Phone Fransico Remy MD Primary Care Provider [phone] Encounter Details Date Type Department Care Team (Late st Contact Info) Description 07/27/2023 9:25 AM EDT Ancillary Procedure [place] [address] Rick Shaw MD [facility] [place] [address] Social History Tobacco Use Types Packs/Day Years Used Date Smoking Tobacco: Unknown Alcohol Use Standard Drinks/Week Comments Defer 0 (1 standard drink = 0.6 oz pur e alcohol) [facility] Utilities Answer Date Recorded In the past 12 months has [employer], gas, oil, or water [employer] threatened to shut off services in your [...] place to sleep or slept in a alf (including now)? No 04/20/2023 Sex and Gender Information Value Date Recorded Sex Assigned at Not on file Gender Identity Not on file Sexual Orientation Not on file documented as of this encounter Plan of Treatment Upcoming Encounters Date Type Department Care Team (Late st Contact Info) Description 10/25/2023 11:20 AM EDT [place] [address] Priscilla Blackwell, [facility] [place] [address] 04/16/2024 11:00 AM EDT [place] [address] Edna Byrd, [facility] [place] [address] documented as of this encounter Procedures Procedure [...] MD IMG FILM LIBRARY OR DERABLES [facility] [place], [place] documented in this encounter Visit Diagnoses Not on filedocumented in this encounter Care Teams Cancellation Clerk Relationship Specialty Start Date End Date Fransico Remy MD [address] [place] [address] PCP - General Emergency Medicine 04/18/23 08/30/23 documented as of this encounter
--- OUTSIDE RECORDS SUMMARY | 2023-10-19 16:51 | XMS_ITS | Encounter Summary ---
Author Organization [facility] Address [facility] [place] [address] Care Team Providers Care Tax Commissioner Name Role Phone Fransico Remy MD Primary Care Provider [phone] Encounter Details Date Type Department Care Team (Late st Contact Info) Description 08/11/2023 Telephone [place] [address] Humble Gaviria MD [facility] [place] [address] Social History Tobacco Use Types Packs/Day Years Used Date Smoking Tobacco: Unknown Alcohol Use Standard Drinks/Week Comments Defer 0 (1 standard drink = 0.6 oz pur e alcohol) [facility] Utilities Answer Date Recorded In the past 12 months has [employer], gas, oil, or water [employer] threatened to shut off services in [...] place to sleep or slept in a snf (including now)? No 04/20/2023 Sex and Gender [...] Humble Gaviria MD Vascular Fellow PGY6, pager [phone] documented in this encounter Plan of Treatment Upcoming Encounters Date Type Department Care Team (Late st Contact Info) Description 10/25/2023 11:20 AM EDT Office [place] [phone] Priscilla Blackwell [facility] [place] [address] 04/16/2024 11:00 AM EDT Office [place] [address] Edna Byrd [facility] [place] [address] documented as of this encounter Visit Diagnoses Not on filedocumented in this encounter Care Teams Tax Commissioner Relationship Specialty Start Date End Date Fransico Remy MD [address] [place] [address] PCP - General Emergency Medicine 04/18/23 08/30/23 documented as of this encounter
--- OUTSIDE RECORDS SUMMARY | 2023-10-19 16:51 | XMS_ITS | Encounter Summary ---
Author Organization [facility] Address [facility] [place] [address] Care Team Providers Care Trailer Truck Driver Name Role Phone Fransico Remy MD Primary Care Provider [phone] Reason for Referral * Diagnostic Test (Routine) - Closed Specialty Diagnoses / Procedures Referred By Contac t Referred To Contact Radiology Diagnoses Dissection of aorta, unspecified portion of aorta Procedures CT Angiogram Chest Abdomen Pelvis w Contrast Narayan Alvarez MD [facility] [place] [address] [facility] [place] [address] Referral ID Status Reason Start Date Expiration Date V isits Requested Visits Authorized [id number] Closed Specialty Service Requested 04/25/2023 10/25/2024 1 1 Reason for Visit * Diagnostic Test (Routine) - Closed Specialty Diagnoses / Procedures Referred By Contac t Referred To Contact Radiology Diagnoses Dissection of aorta, unspecified portion of aorta Procedures CT Angiogram Chest Abdomen Pelvis w Contrast Narayan Alvarez MD [facility] [place] [address] [facility] [place] [address] Referral ID Status Reason Start Date Expiration Date V isits Requested Visits Authorized [id number] Closed Specialty Service Requested 04/25/2023 10/25/2024 1 1 Encounter Details Date Type Department Care Team (Latest Contact Info) Description 07/31/2023 2:35 PM EDT - 07/31/2023 11:59 PM EDT Hospital Encounter CT Scan at [facility] [place] [address] Georges Jacob MD [facility] [place] [address] Dissection of aorta, unspecified portion of aorta Discharge Disposition: Home Social History Tobacco Use Types Packs/Day Years Used Date Smoking Tobacco: Unknown Alcohol Use Standard Drinks/Week Comments Defer 0 (1 standard drink = 0.6 oz pur e alcohol) [facility] Utilities Answer Date Recorded In the [...] 11:20 AM EDT Office [place] [address] Priscilla Blackwell, [facility] [place] [address] 04/16/2024 11:00 AM EDT Office [place] [address] Edna Byrd, [facility] [place] [address] documented as of this encounter Procedures Procedure Name Priority Date/Time Associated Diagnosis Comments CT ANGIOGRAM CHEST ABDOMEN PELVIS W CONTRAST Routine 07/31/2023 3:45 PM EDT Dissection of aorta, unspecified portion of aorta documented in this encounter Results * CT Angiogram Chest Abdomen Pelvis w Contrast (07/31/2023 3:45 PM EDT) [employer] WORKSTATION ID [id number] RAD Anatomical Region Laterality Modality Abdomen, Chest Computed Tomogra phy Impressions 08/01/2023 9:39 AM EDT 1. ??Unchanged appearance and extent of the known [place] B dissection extending from the origin of [...] who have questions please contact the health home health care physician that requested your imaging first. ? Electronically signed by: Nicolette Cuevas MD, [facility] ??([phone]), at 08/01/2023 9:39 AM Narrative 08/01/2023 9:39 [...] thoracic aorta. Unchanged extent of the known [place] type B dissection extending from the origin [...] administration of contrast. Administered 97.0 ml of [id number] mg/ml. Maximum intensity projection (MIP) were reformatted. [...] thoracic aorta. Unchanged extent of the known [place] type B dissection extending from the origin [...] Unchanged appearance and extent of the known [place] B dissectionextending from the origin of the [...] patients who have questions please contactthe health home health care physician that requested your imaging first. Electronically signed by: Nicolette Cuevas MD, [facility]([phone]), at 08/01/2023 9:39 AM Georges Jacob MD IMG CT ORDERABLES documented [...] mLs documented in this encounter Care Teams Trailer Truck Driver Relationship Specialty Start Date End Date Fransico Remy MD [address] [place] [address] PCP - General Emergency Medicine 04/18/23 08/30/23 documented as of this encounter
--- OUTSIDE RECORDS SUMMARY | 2023-10-19 16:51 | XMS_ITS | Encounter Summary ---
Author Organization [facility] [place] [address] Care Team Providers Care Pulmonary Disease Specialist Name Role Phone Fransico Remy MD Primary Care Provider [phone] Reason for Referral * Diagnostic Test (Routine) - New Request Specialty Diagnoses / Procedures Referred By Dannie lozano Referred To Contact Radiology Diagnoses Dissection of thoracoabdominal aortic aneurysm (TAAA) Procedures CT Angiogram Chest Abdomen Pelvis w Contrast Dhaval Kidd MD [facility] [address] [facility] [place] [address] Referral ID Status Reason Start Date Expiration Date Visits Requested Visits Authorized [id number] New Request Specialty Service Requested 07/31/2023 01/29/2025 1 1 Encounter Details Date Type Department Care Team (Latest Contact Info) Description 07/31/2023 4:00 PM EDT Office Visit [place] [address] Dhaval Kidd MD [facility] [address] 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) Social History Tobacco Use Types Packs/Day Years Used Date Smoking Tobacco: Unknown Alcohol Use Standard Drinks/Week Comments Defer 0 (1 standard drink = 0.6 oz pur e alcohol) [facility] Utilities Answer Date Recorded In the past [...] place to sleep or slept in a mcfp (including now)? No 04/20/2023 Sex and Gender [...] 11:20 AM EDT Office [place] [address] Priscilla Blackwell, [facility] [place] [address] 04/16/2024 11:00 AM EDT Office [place] [address] Edna Byrd, [facility] [place] [address] Scheduled Orders Name Type Priority Associated Diagnoses Orde r Schedule Creatinine Lab Routine Dissection of thoracoabdominal aortic aneurysm (TAAA) Expected: 07/30/2024, Expires: 01/29/2025 CT Angiogram Chest Abdomen Pelvis w Contrast Imaging Routine Dissection of thoracoabdominal aortic aneurysm (TAAA) Expected: 07/30/2024, Expires: 01/29/2025 documented as of this encounter Visit Diagnoses Diagnosis Dissection of thoracoabdominal aortic aneurysm (TAAA)- Primary documented in this encounter Care Teams Pulmonary Disease Specialist Relationship Specialty Start Date End Date Fransico Remy MD [address] [place] [address] PCP - General Emergency Medicine 04/18/23 08/30/23 documented as of this encounter
--- OUTSIDE RECORDS SUMMARY | 2023-10-19 16:51 | XMS_ITS | Encounter Summary ---
Author Organization [place] [address] Care Team Providers Care Fire Captain Name Role Phone Fransico Remy MD Primary Care Provider [phone] Encounter Details Date Type Department Care Team (Latest Contact Info) Description 07/30/2023 Travel Social History Tobacco Use Types Packs/Day Years Used Date Smoking Tobacco: Unknown Alcohol Use Standard Drinks/Week Comments Defer 0 (1 standard drink = 0.6 oz pur e alcohol) [facility] Utilities Answer Date Recorded In the [...] 11:20 AM EDT Office [place] [address] Priscilla Blackwell, [facility] [place] [address] 04/16/2024 11:00 AM EDT [place] [phone] Edna Byrd, [facility] [place] [address] documented as of this encounter Visit Diagnoses Not on filedocumented in this encounter Care Teams Fire Captain Relationship Specialty Start Date End Date Fransico Remy MD [address] [place] [address] PCP - General Emergency Medicine 04/18/23 08/30/23 documented as of this encounter
--- OUTSIDE RECORDS SUMMARY | 2023-10-19 16:51 | XMS_ITS | Encounter Summary ---
Author Organization [facility] Address [facility] [place] [address] Care Team Providers Care Buggy Man Name Role Phone Fransico Remy MD Primary Care Provider [phone] Encounter Details Date Type Department Care Team (Late st Contact Info) Description 08/11/2023 6:35 PM EDT Telehealth notes only TeleHealth [facility] [place] [address] Telehealth, Neurology None Social History Tobacco Use Types Packs/Day Years Used Date Smoking Tobacco: Unknown Alcohol Use Standard Drinks/Week Comments Defer 0 (1 standard drink = 0.6 oz pur e alcohol) [facility] Utilities Answer Date Recorded In [...] place to sleep or slept in a long-term (including now)? No 04/20/2023 Sex and Gender Information Value Date Recorded Sex Assigned at Not on file Gender Identity Not on file Sexual Orientation Not on file documented as of this encounter Plan of Treatment Upcoming Encounters Date Type Department Care Team (Late st Contact Info) Description 10/25/2023 11:20 AM EDT Office [place] [address] Priscilla Blackwell, [facility] [place] [address] 04/16/2024 11:00 AM EDT [place] [address] Edna Byrd, [facility] [place] [address] documented as of this encounter Visit Diagnoses Not on filedocumented in this encounter Care Teams Buggy Man Relationship Specialty Start Date End Date Fransico Remy MD [address] [place] [address] PCP - General Emergency Medicine 04/18/23 08/30/23 documented as of this encounter
--- OUTSIDE RECORDS SUMMARY | 2023-10-19 16:51 | XMS_ITS | Encounter Summary ---
Author Organization [facility] Address [facility] [place] [address] Care Team Providers Care Gps Field Data Collector Name Role Phone Brien Phillips Primary Care Provider + Encounter Details Date Type Department Care Team (Late st Contact Info) Description 07/27/2023 Interpretation [place] [address] Rick Shaw MD [facility] [place] [address] Social History Tobacco Use Types Packs/Day Years Used Date Smoking Tobacco: Unknown Alcohol Use Standard Drinks/Week Comments Defer 0 (1 standard drink = 0.6 oz pur e alcohol) [facility] Utilities Answer Date Recorded In the past 12 months has [employer], gas, oil, or water [employer] threatened to shut off services in your [...] to sleep or slept in a senior care (including now)? No 04/20/2023 Sex and Gender Information Value Date Recorded Sex Assigned at Not on file Gender Identity Not on file Sexual Orientation Not on file documented as of this encounter Plan of Treatment Upcoming Encounters Date Type Department Care Team (Late st Contact Info) Description 10/25/2023 11:20 AM EDT Office [place] [address] Priscilla Blackwell, [facility] [place] [address] 04/16/2024 11:00 AM EDT [place] [address] Edna Byrd, [facility] [place] [address] documented as of this encounter Procedures Procedure [...] IMG FILM LIBRARY OR DERABLES [facility] [place], [place] documented in this encounter Visit Diagnoses Not on filedocumented in this encounter Care Teams Gps Field Data Collector Relationship Specialty Start Date End Date Brien Phillips PA [facility] [place] [address] PCP - General Internal Medicine 08/31/23 documented as of this encounter
--- OUTSIDE RECORDS SUMMARY | 2023-10-19 16:51 | XMS_ITS | Encounter Summary ---
Author Organization [facility] Address [facility] [place] [address] Care Team Providers Care Corporate Development Analyst Name Role Phone Fransico Remy MD Primary Care Provider [phone] Encounter Details Date Type Department Care Team (Late st Contact Info) Description 06/21/2023 Orders Only Vascular [place] [phone] Delilah Lyons, RN Dissection of thoracoabdominal aortic aneurysm (TAAA) Social History Tobacco Use Types Packs/Day Years Used Date Smoking Tobacco: Unknown Alcohol Use Standard Drinks/Week Comments Defer 0 (1 standard drink = 0.6 oz pur e alcohol) [facility] Utilities Answer Date Recorded In the [...] place to sleep or slept in a chcf (including now)? No 04/20/2023 Sex and Gender Information Value Date Recorded Sex Assigned at Not on file Gender Identity Not on file Sexual Orientation Not on file documented as of this encounter Plan of Treatment Upcoming Encounters Date Type Department Care Team (Late st Contact Info) Description 10/25/2023 11:20 AM EDT Office Visit [place] [phone] Priscilla Blackwell, [facility] [place] [address] 04/16/2024 11:00 AM EDT Office Visit [place] [address] Edna Byrd, [facility] [address] documented as of this encounter Results * (ABNORMAL) Creatinine (07/31/2023 1:08 PM EDT) Creatinine 1.72(H) 0.80 - 1.50 mg/dL [facility] Est Glomerular Filtration Rate 44(L) >=60 mL/min/1. 73 m?? [facility] Comment: This patient's estimated GFR [...] In Lab Arina Segovia APRN CHEMISTRY ORDERABLES [facility] [place] [address] documented in this encounter Visit Diagnoses Diagnosis Dissection of thoracoabdominal aortic aneurysm (TAAA) documented in this encounter Care Teams Corporate Development Analyst Relationship Specialty Start Date End Date Fransico Remy MD [address] [place] [address] PCP - General Emergency Medicine 04/18/23 08/30/23 documented as of this encounter
--- OUTSIDE RECORDS SUMMARY | 2023-10-19 16:51 | XMS_ITS | Encounter Summary ---
Author Organization [facility] Address [facility] [place] [address] Care Team Providers Care Sole Leveling Machine Operator Name Role Phone Fransico Remy MD Primary Care Provider [phone] Encounter Details Date Type Department Care Team (Late st Contact Info) Description 08/11/2023 7:05 PM EDT Ancillary Procedure [place] [address] Tiarra Meredith MD [facility] [place] [address] Social History Tobacco Use Types Packs/Day Years Used Date Smoking Tobacco: Unknown Alcohol Use Standard Drinks/Week Comments Defer 0 (1 standard drink = 0.6 oz pur e alcohol) [facility] Utilities Answer Date Recorded In the past 12 months has [employer], [employer], oil, or water [employer] threatened to shut off services in your [...] 11:20 AM EDT Office [place] [address] Priscilla Blackwell, [facility] [address] [place] [address] 04/16/2024 11:00 AM EDT [place] [address] Edna Byrd, [facility] [place] [address] documented as of this encounter Procedures Procedure Name Priority Date/Time Associated Diagnosis Comments FILM LIBRARY STORAGE ONLY CT HEAD Routine 08/11/2023 6:55 PM EDT documented in this encounter Results * Film Library- Storage Only CT Head (08/11/2023 6:55 PM EDT) Narrative [facility] - 08/11/2023 6:55 PM EDT This exam is auto-finalizing. It's purpose is for storage only. Tiarra AKINS FILM LIBRARY ORD ERABLES [place], [place] documented in this encounter Visit Diagnoses Not on filedocumented in this encounter Care Teams Sole Leveling Machine Operator Relationship Specialty Start Date End Date Fransico Remy MD [address] [place] [address] PCP - General Emergency Medicine 04/18/23 08/30/23 documented as of this encounter
--- OUTSIDE RECORDS SUMMARY | 2023-10-19 16:51 | XMS_ITS | Encounter Summary ---
Author Organization [facility] [place] [address] Care Team Providers Care Installment Dealer Name Role Phone Fransico Remy MD Primary Care Provider [phone] Encounter Details Date Type Department Care Team (Latest Contact Info) Description 07/31/2023 1:15 PM EDT Laboratory Appointment Lab [address] [place] [phone] Dissection of thoracoabdominal aortic aneurysm (TAAA) Social History Tobacco Use Types Packs/Day Years Used Date Smoking Tobacco: Unknown Alcohol Use Standard Drinks/Week Comments Defer 0 (1 standard drink = 0.6 oz pur e alcohol) [facility] Utilities Answer Date Recorded In the past [...] 11:20 AM EDT Office [place] [address] Priscilla Blackwell, [facility] [place] [address] 04/16/2024 11:00 AM EDT Office [place] [address] Edna Byrd, [facility] [place] [address] documented as of this encounter Procedures Procedure Name Priority Date/Time Associated Diagnosis Comments CREATININE STAT 07/31/2023 1:08 PM EDT Dissection of thoracoabdominal aortic aneurysm (TAAA) documented in this encounter Results * (ABNORMAL) Creatinine (07/31/2023 1:08 PM EDT) Creatinine 1.72(H) 0.80 - 1.50 mg/dL [facility] Est Glomerular Filtration Rate 44(L) >=60 mL/min/1. 73 m?? [facility] Comment: This patient's estimated GFR [...] In Lab Arina Segovia APRN CHEMISTRY ORDERABLES [facility] [place] [address] documented in this encounter Visit Diagnoses Diagnosis Dissection of thoracoabdominal aortic aneurysm (TAAA) documented in this encounter Care Teams Installment Dealer Relationship Specialty Start Date End Date Fransico Remy MD [address] [place] [address] PCP - General Emergency Medicine 04/18/23 08/30/23 documented as of this encounter
--- OUTSIDE RECORDS SUMMARY | 2023-10-19 16:51 | XMS_ITS | Clinical Summary ---
Author Organization [facility] Address [facility] [place] [address] Care Team Providers Care Cleaner And Polisher Name Role Phone Brien Phillips Primary Care [...] Encounters Date Type Department Care Team Description 10/16/2023 Telephone Neurology at [place] [phone] Edna Byrd, DRAFTER AUTOMOTIVE DESIGN Appointment 09/07/2023 Telephone [facility] at [place] [phone] Steve Carmona 08/31/2023 Transcribe Orders eDH Incoming Referrals [phone] Brien Phillips PA Unilateral primary osteoarthritis, left hip 08/11/2023 7:05 PM EDT Ancillary Procedure [place] [address] Tiarra Meredith MD 08/11/2023 7:00 PM EDT Ancillary Procedure [place] [address] Tiarra Meredith MD 08/11/2023 6:35 PM EDT Telehealth [place] [address] Telehealth, Neurology 08/11/2023 Telephone Vascular Surgery [place] [phone] Humble Gaviria MD 07/31/2023 4:00 PM EDT Office Visit Vascular Surgery at [place] [phone] Dhaval Kidd MD 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) 07/31/2023 2:35 PM EDT - 07/31/2023 11:59 PM EDT Hospital Encounter CT Scan at [place] [phone] Georges Jacob MD Dissection of aorta, unspecified portion of aorta Discharge Disposition: Home 07/31/2023 1:15 PM EDT Laboratory Appointment Lab [address] [place], [place] [phone] Dissection of thoracoabdominal aortic aneurysm (TAAA) 07/30/2023 Travel 07/27/2023 9:25 AM EDT Ancillary Procedure [place] [address] Rick Shaw MD 07/27/2023 Interpretation [place] [address] Rick Shaw MD from Last 3 Months Social History Tobacco Use Types Packs/Day Years Used Date Smoking Tobacco: Unknown Tobacco Cessation:Counseling Given: Not Answered Alcohol Use Standard Drinks/Week Comments Defer 0 (1 standard drink = 0.6 oz pur e alcohol) [facility] Utilities Answer Date Recorded In the past 12 months has [facility] [employer], gas, oil, or water [employer] threatened to shut off services in your [...] 11:20 AM EDT [place] [address] Priscilla Blackwell APRN [facility] [place] [address] 04/16/2024 11:00 AM EDT [place] [address] Edna Byrd, DRAFTER AUTOMOTIVE DESIGN [facility] [place] [address] Health Maintenance Due Date Last Done Comments CT Colonography 1957 Colonoscopy 1957 Colorectal Cancer Screening 1957 FIT DNA 1957 FIT 1957 Sigmoidoscopy (10 year) with FIT yearly 1957 Sigmoidoscopy 1957 HIV screen 10/21/1975 Tdap adult 1976 Tetanus vaccine 1976 Zoster vaccine (1 of 2) 10/21/2007 Pneumoccocal Vaccine: 65+ (1 of 1 - PCV) 2022 Covid-19 Vaccine (1 - 2022-2 4 season) 2023 Influenza (Flu) vaccine (1 o f 1 [...] CT Head (08/11/2023 6:55 PM EDT) Narrative [facility] - 08/11/2023 6:55 PM EDT This exam is auto-finalizing. It's purpose is for storage only. Tiarra Meredith MD [facility] FILM LIBRARY ORD ERABLES Performing Organization Address [facility] de Phone Number [place], [place] * Film Library- Storage Only CT Chest Abdomen Pelvis (08/11/2023 6:55 PM EDT) Narrative [facility] - 08/11/2023 6:55 PM EDT This exam is auto-finalizing. It's purpose is for storage only. Tiarra Meredith MD [facility] FILM LIBRARY ORD ERABLES Performing Organization Address [facility] de Phone Number [place], [place] * CT Angiogram Chest Abdomen Pelvis w Contrast (07/31/2023 3:45 PM EDT) WORKSTATION ID [id number] [facility] Anatomical Region Laterality Modality Abdomen, Chest Computed Tomogra phy Impressions 08/01/2023 9:39 AM EDT 1. ??Unchanged appearance and extent of the known Ammon [...] who have questions please contact the health life care planner that requested your imaging first. ? Electronically signed by: Nicolette Cuevas MD, [facility] ??([phone]), at 08/01/2023 9:39 AM Narrative 08/01/2023 9:39 [...] thoracic aorta. 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 Urinary Bladder: Rbeolledo catheter in situ. Lymph Nodes: Left, retroperitoneal [...] administration of contrast. Administered 97.0 ml of OCFLSWHJC392.00 mg/ml. Maximum intensity projection (MIP) were reformatted. [...] patients who have questions please contactthe health life care planner that requested your imaging first. Electronically signed by: Nicolette Cuevas MD, [facility]([phone]), at 08/01/2023 9:39 AM Georges Jacob MD IMG CT ORDERABLES * (ABNORMAL) Creatinine (07/31/2023 1:08 PM EDT) Creatinine 1.72(H) 0.80 - 1.50 mg/dL [facility] Est Glomerular Filtration Rate 44(L) >=60 mL/min/1. 73 m?? [facility] Comment: This patient's estimated GFR was [...] Segovia APRN CHEMISTRY ORDERABLES Performing Organization Address City/[facility]/ZIP Co de Phone Number [facility] [place] [place] [address] * Film Library- Storage Only DX Hip (07/27/2023 9:25 AM EDT) 09/20/2023 6:15 AM EDT Narrative [facility] 09/20/2023 6:15 AM EDT This exam is auto-finalizing. It's purpose is for storage only. Rick Shaw MD IMG FILM LIBRARY OR DERABLES Performing Organization Address [facility] Co de Phone Number [place], [place] * Scan Doc: Diagnostic Radiology (07/27/2023 12:00 AM EDT) Only the most recent of2 resultswithin the time period is included. Anatomical Region Laterality Modality Other Narrative 07/27/2023 12:00 AM EDT Ordered by an unspecified provider. Scanning Provider MEDIA MGR SCAN EXT O RDR/RSLT * (ABNORMAL) Basic Metabolic Panel (non-fasting) (06/02/2023 12:59 AM EDT) Glucose 112 65 - 199 mg/dL [facility] Comment:Diabetes: >=200 mg/d L plus symptoms Blood Urea Nitrogen 36(H) 10 - 20 mg/dL [facility] Creatinine 1.94(H) 0.80 - 1.50 mg/dL [facility] Sodium 139 135 - 145 mmol/L [facility] Potassium 4.0 3.5 - 5.0 mmol/L [facility] Comment: Please note: ??Patients with WBC >100,000 may have falsely elevated Potassium levels. ??For accurate Potassium quantification in these patients send serum separator tube (gold top) for subsequent determinations. ??Contact the Clinical Chemistry Laboratory if there are any questions. Chloride 105 98 - 107 mmol/L [facility] Carbon Dioxide 21(L) 22 - 31 mmol/L [facility] Anion Gap 13 5 - 15 mmol/L [facility] Calcium 9.8 8.5 - 10.5 mg/dL [facility] Est Glomerular Filtration Rate 38(L) >=60 mL/min/1. 73 m?? [facility] Comment: This patient's estimated GFR was [...] Agency Comment Spec In Lab Edna Byrd DRAFTER AUTOMOTIVE DESIGN CHEMISTRY ORDERABLE S [facility] [place] [address] * Hepatitis C Antibody (04/28/2023 6:11 PM EDT) Hepatitis C Antibody Negative Negative [facility] Blood 04/28/2023 6:11 PM EDT 04/28/2023 6:20 PM EDT Narrative Resulting Agency Comment Spec In Lab Angy Sainz DRAFTER AUTOMOTIVE DESIGN CHEMISTRY ORDERABLES [facility] [place] [address] * HDL/Cholesterol Profile (04/19/2023 12:35 AM EDT) Cholesterol, Total 220 mg/dL [facility] Comment: Desirable: ? <200 mg/dL Borderline High: 200-239 mg/dL Higher: ?>hz=740 mg/dL HDL Cholesterol 86 mg/dL [facility] Comment: Females: High Risk: <50 mg/dL Males: High Risk: <40 mg/dL Cholesterol/HDL Ratio 2.6 ratio [facility] Lipid Interpretation See Note [facility] Comment: It is important to [...] individuals with atherosclerotic cardiovascular disease (ASCVD)or LDL >gf=563 mg/dL, use a high-intensity statin (40-80 mg [...] Agency Comment Spec In Lab Nilda Jeronimo DRAFTER AUTOMOTIVE DESIGN CHEMISTRY ORDERABL ES [place] [phone] from Last 3 Months or Most Recently Relevant to Health Maintenance Advance Directives Documents on File Type Date Recorded Patient Machine Operations Supervisor Expl anation Advance Directives and Livin g [...] discussion: Will verify on arrival Care Teams Cleaner And Polisher Relationship Specialty Start Date End Date Brien Phillips [place] [address] PCP - General Internal Medicine 08/31/23
--- OUTSIDE RECORDS SUMMARY | 2023-10-19 16:51 | XMS_ITS | Encounter Summary ---
Author Organization [facility] Address [facility] [place] [address] Care Team Providers Care Track Machine Operator Repairer Name Role Phone Fransico Remy MD Primary Care Provider [phone] Encounter Details Date Type Department Care Team (Late st Contact Info) Description 08/11/2023 7:00 PM EDT Ancillary Procedure [place] [address] Tiarra Meredith MD [facility] [place] [address] Social History Tobacco Use Types Packs/Day Years Used Date Smoking Tobacco: Unknown Alcohol Use Standard Drinks/Week Comments Defer 0 (1 standard drink = 0.6 oz pur e alcohol) [facility] Utilities Answer Date Recorded In the past 12 months has [employer], [employer], oil, or water [employer] threatened to shut off services in your [...] 11:20 AM EDT [place] [address] Priscilla Blackwell, [facility] [place] [address] 04/16/2024 11:00 AM EDT [place] [address] Edna Byrd, [facility] [address] documented as of this encounter Procedures Procedure [...] Tiarra AKINS FILM LIBRARY ORD ERABLES [facility] [place], [place] documented in this encounter Visit Diagnoses Not on filedocumented in this encounter Care Teams Track Machine Operator Repairer Relationship Specialty Start Date End Date Fransico Remy MD [address] [place] [address] PCP - General Emergency Medicine 04/18/23 08/30/23 documented as of this encounter
--- OUTSIDE RECORDS SUMMARY | 2023-10-19 16:51 | XMS_ITS | Encounter Summary ---
Author Organization [facility] [place] [address] Care Team Providers Care Therapeutic Strategy Lead Name Role Phone Fransico Remy MD Primary Care Provider [phone] Encounter Details Date Type Department Care Team (Late st Contact Info) Description 06/22/2023 Telephone [place] [address] Nahum Sepulveda [facility] [place] [address] Social History Tobacco Use Types Packs/Day Years Used Date Smoking Tobacco: Unknown Alcohol Use Standard Drinks/Week Comments Defer 0 (1 standard drink = 0.6 oz pur e alcohol) [facility] Utilities Answer Date Recorded In the past 12 months has e [employer], gas, oil, or water [employer] threatened to shut off services in your [...] 11:20 AM EDT Office [place] [address] Priscilla Blackwell [facility] [place] [address] 04/16/2024 11:00 AM EDT Office [place] [address] Edna Byrd, [facility] [place] [address] documented as of this encounter Visit Diagnoses Not on filedocumented in this encounter Care Teams Therapeutic Strategy Lead Relationship Specialty Start Date End Date Fransico Remy MD [address] [place] [address] PCP - General Emergency Medicine 04/18/23 08/30/23 documented as of this encounter
--- OUTSIDE RECORDS SUMMARY | 2023-10-19 16:51 | XMS_ITS | Encounter Summary ---
Author Organization [facility] Address [facility] [place] [address] Care Team Providers Care Advanced Manufacturing Engineer Name Role Phone Brien Phillips Primary Care Provider + Encounter Details Date Type Department Care Team (Late st Contact Info) Description 09/07/2023 Telephone [facility] [place] [phone] Steve Carmona Social History Tobacco Use Types Packs/Day Years Used Date Smoking Tobacco: Unknown Alcohol Use Standard Drinks/Week Comments Defer 0 (1 standard drink = 0.6 oz pur e alcohol) [facility] Utilities Answer Date Recorded In the past [...] place to sleep or slept in a correction (including now)? No 04/20/2023 Sex and Gender [...] 11:20 AM EDT Office Visit Orthopaedics at [place] [phone] Priscilla Blackwell, [facility] [place] [address] 04/16/2024 11:00 AM EDT [place] [address] Edna Byrd [facility] [place] [address] documented as of this encounter Visit Diagnoses Not on filedocumented in this encounter Care Teams Advanced Manufacturing Engineer Relationship Specialty Start Date End Date Brien Phillips [place] [facility] [place] [address] PCP - General Internal Medicine 08/31/23 documented as of this encounter
--- OUTSIDE RECORDS SUMMARY | 2023-10-19 16:51 | XMS_ITS | Encounter Summary ---
Author Organization [facility] Address [facility] [place] [address] Care Team Providers Care Healthcare Associate Name Role Phone Fransico Remy MD Primary Care Provider [phone] Encounter Details Date Type Department Care Team (Late st Contact Info) Description 07/06/2023 Telephone [place] [phone] Gail Singh MD [facility] [place] [address] Social History Tobacco Use Types Packs/Day Years Used Date Smoking Tobacco: Unknown Alcohol Use Standard Drinks/Week Comments Defer 0 (1 standard drink = 0.6 oz pur e alcohol) [facility] Utilities Answer Date Recorded In the past 12 months has e [employer], gas, oil, or water [employer] threatened to shut off services in your [...] and asked that we fax note to [phone] Faxed * Telephone Encounter - Michelle Rabago [...] eye provider. Explained that BBS is an subsurface augmentee operator and can recommend prisms but cannot write rx so Melania would needto see eye provider in order to get glasses. Suggested they reach out to [facility] to establish care and we [...] 11:20 AM EDT Office [place] [address] Priscilla Blackwell, [facility] [address] 04/16/2024 11:00 AM EDT [place] [address] Edna Byrd, [facility] [place] [address] documented as of this encounter Visit Diagnoses Not on filedocumented in this encounter Care Teams Healthcare Associate Relationship Specialty Start Date End Date Fransico Remy MD [address] [place] [address] PCP - General Emergency Medicine 04/18/23 08/30/23 documented as of this encounter
--- OUTSIDE RECORDS SUMMARY | 2023-10-19 16:51 | XMS_ITS | Encounter Summary ---
[place] [address] Care Team Providers Care Label Stamper Name Role Phone Brien Phillips Primary Care Provider + Reason for Referral * Consultation (Routine) - Denied Specialty Diagnoses / Procedures Referred By Contgaviota t Referred To Contact [facility] Diagnoses Unilateral primary osteoarthritis, left hip Brien Phillips PA [address] [place] [address] [facility] [place] [place] [address] Referral ID Status Reason Start Date Expiration Date V isits Requested Visits Authorized [id number] Denied Consult, Test & Treat PCP Updated and/or Approved 08/22/2023 08/20/2024 6 0 Encounter Details Date Type Department Care Team (Late st Contact Info) Description 08/31/2023 Transcribe Orders eDH Incoming Referrals [phone] Brien Phillips PA [address] [place], [place] [id number] Unilateral primary osteoarthritis, left hip Social History Tobacco Use Types Packs/Day Years Used Date Smoking Tobacco: Unknown Alcohol Use Standard Drinks/Week Comments Defer 0 (1 standard drink = 0.6 oz pur e alcohol) [facility] Utilities Answer Date Recorded In the [...] 11:20 AM EDT Office [place] [phone] Priscilla Blackwell, [facility] [place] [address] 04/16/2024 11:00 AM EDT [place] [phone] Edna Byrd, [facility] [place] [address] Scheduled Referrals Name Type Priority Associated Diagnoses Order Schedule Referral to Pain Management Outpatient Referral Routine Unilateral primary osteoarthritis, left hip Ordered: 08/31/2023 documented as of this encounter Visit Diagnoses Diagnosis Unilateral primary osteoarthritis, left hip documented in this encounter Care Teams Label Stamper Relationship Specialty Start Date End Date Brien Phillips PA [address] [place] [address] PCP - General Internal Medicine 08/31/23 documented as of this encounter
--- OUTSIDE RECORDS SUMMARY | 2023-10-19 16:52 | XMS_ITS | Encounter Summary ---
Author Organization [facility] [place] [address] Care Team Providers Care Internal Grinding Machine Operator Name Role Phone Fransico Remy MD Primary Care Provider [phone] Encounter Details Date Type Department Care Team (Late st Contact Info) Description 04/18/2023 5:45 AM EDT Ancillary Procedure [place] [phone] Nayana Barker MD [facility] [place] [address] Social History Tobacco Use Types Packs/Day Years [...] 11:20 AM EDT Office [place] [address] Priscilla Blackwell APRN [facility] ORTHOPAEDIC SURGERY [place], [place] [id number] 04/16/2024 11:00 AM EDT [place] [address] Edna Byrd, ZEESHAN [facility] [place] [address] documented as of this encounter Procedures Procedure Name Priority Date/Time Associated Diagnosis Comments FILM LIBRARY STORAGE ONLY DX CHEST Routine 04/18/2023 5:42 AM EDT documented in this encounter Results * Film Library- Storage Only DX Chest (04/18/2023 5:42 AM EDT) Narrative [facility] - 04/18/2023 5:42 AM EDT This exam is auto-finalizing. It's purpose is for storage only. Nayana Barker MD G FILM LIBRARY ORD ERABLES [place], [place] documented in this encounter Visit Diagnoses Not on filedocumented in this encounter Care Teams Internal Grinding Machine Operator Relationship Specialty Start Date End Date Fransico Remy MD [address] [place] [address] PCP - General Emergency Medicine 04/18/23 08/30/23 documented as of this encounter
--- OUTSIDE RECORDS SUMMARY | 2023-10-19 16:52 | XMS_ITS | Encounter Summary ---
Author Organization [facility] [place] [address] Care Team Providers Care Carbon Paper Coating Machine Setter Name Role Phone Fransico Remy MD Primary Care Provider [phone] Encounter Details Date Type Department Care Team (Late st Contact Info) Description 04/18/2023 External [place] [address] Social History Tobacco Use Types Packs/Day Years Used Date Smoking Tobacco: Unknown Alcohol Use Standard Drinks/Week Comments Defer 0 (1 standard drink = 0.6 oz pur e alcohol) [facility] Utilities Answer Date Recorded In [...] 11:20 AM EDT [place] [address] Priscilla Blackwell, [facility] [place] [address] 04/16/2024 11:00 AM EDT [place] [address] Edna Byrd, [facility] [place] [address] documented as of this encounter Procedures Procedure Name Priority Date/Time Associated Diagnosis Comments ECG SCAN Routine 04/18/2023 3:30 AM EDT documented in this encounter Results * Scan Doc: ECG (04/18/2023 3:30 AM EDT) Historical Provider MEDIA MGR SCAN EX T ORDR/RSLT documented in this encounter Visit Diagnoses Not on filedocumented in this encounter Care Teams Carbon Paper Coating Machine Setter Relationship Specialty Start Date End Date Fransico Remy MD [address] [place] [address] PCP - General Emergency Medicine 04/18/23 08/30/23 documented as of this encounter
--- OUTSIDE RECORDS SUMMARY | 2023-10-19 16:52 | XMS_ITS | Encounter Summary ---
Author Organization [facility] [place] [address] Care Team Providers Care Plastic Tubing Insulation Supervisor Name Role Phone Fransico Remy MD Primary Care Provider [phone] Encounter Details Date Type Department Care Team (Late st Contact Info) Description 05/29/2023 Ophth [place] [address] Nahum Sepulveda [facility] [place] [place] [address] Social History Tobacco Use Types Packs/Day Years Used Date Smoking Tobacco: Unknown Alcohol Use Standard Drinks/Week Comments Defer 0 (1 standard drink = 0.6 oz pur e alcohol) [facility] Utilities Answer Date Recorded In the past 12 months has e [employer], gas, oil, or water [employer] threatened to shut off services in your [...] 11:20 AM EDT Office [place] [address] Priscilla Blackwell, [facility] [place] [address] 04/16/2024 11:00 AM EDT [place] [address] Edna Byrd, [facility] [place] [address] documented as of this encounter Visit Diagnoses Not on filedocumented in this encounter Care Teams Plastic Tubing Insulation Supervisor Relationship Specialty Start Date End Date Fransico Remy MD [address] [place] [address] PCP - General Emergency Medicine 04/18/23 08/30/23 documented as of this encounter
--- OUTSIDE RECORDS SUMMARY | 2023-10-19 16:52 | XMS_ITS | Encounter Summary ---
Author Organization [place] [address] Care Team Providers Care Geological Science Teacher Name Role Phone Fransico Remy MD Primary Care Provider [phone] Encounter Details Date Type Department Care Team (Late st Contact Info) Description 04/18/2023 3:05 AM EDT Ancillary Procedure [place] [phone] Nayana Barker MD [facility] [place] [address] Social History Tobacco Use Types [...] 11:20 AM EDT Office [place] [address] Priscilla Blackwell APRN [facility] ORTHOPAEDIC SURGERY [place], [place] [address] 04/16/2024 11:00 AM EDT [place] [address] Edna Byrd, ZEESHAN [facility] [place] [address] documented as of this encounter Procedures Procedure Name Priority Date/Time Associated Diagnosis Comments FILM LIBRARY STORAGE ONLY CT HEAD Routine 04/18/2023 3:03 AM EDT documented in this encounter Results * Film Library- Storage Only CT Head (04/18/2023 3:03 AM EDT) Narrative [facility] - 04/18/2023 3:03 AM EDT This exam is auto-finalizing. It's purpose is for storage only. Nayana Barker MD [facility] FILM LIBRARY ORD ERABLES [place], [place] documented in this encounter Visit Diagnoses Not on filedocumented in this encounter Care Teams Geological Science Teacher Relationship Specialty Start Date End Date Fransico Remy MD [address] [place] [address] PCP - General Emergency Medicine 04/18/23 08/30/23 documented as of this encounter
--- OUTSIDE RECORDS SUMMARY | 2023-10-19 16:52 | XMS_ITS | Encounter Summary ---
Author Organization [facility] Address [facility] [place] [address] Care Team Providers Care Associate Web Developer Name Role Phone Fransico Remy MD Primary Care Provider [phone] Reason for Visit * Auth/Cert (Routine) Specialty Diagnoses / Procedures Referred By Dannie lozano Referred To Contact Diagnoses ICH (intracerebral hemorrhage) ICH Hellen Smith MD [facility] [place] [address] [facility] Referral ID Status Reason Start Date Expiration Date Visits Re quested Visits Authorized [id number] 1 1 Encounter Details Date Type Department Care Team (Late st Contact Info) Description 04/20/2023 3:37 AM EDT Anesthesia Event XRay at [address] [place] [address] Dorina Card MD [facility] [place] [address] Anesthesia Record Procedure Summary Procedure Name Responsible [...] 0.6 oz pur e alcohol) [facility] Utilities Answer Date Recorded In [...] place to sleep or slept in a half-way (including now)? No 04/20/2023 Sex and Gender [...] Patient location during procedure: NSCU Performed by: Resident/COMMERCIAL ART INSTRUCTOR: Dorina Card MD Other anesthesia staff: Satish [...] 11:20 AM EDT Office Visit Orthopaedics at [address] [facility] [place] [address] 04/16/2024 11:00 AM EDT Office Visit Neurology at [place] [phone] [facility] [place] [place] [address] documented as of this encounter Procedures Procedure [...] location during procedure: ?? NSCU Performed by: Resident/COMMERCIAL ART INSTRUCTOR: Dorina Card MD Other anesthesia staff: Satish [...] Additional Comments 200mg propofol and 100mg rocuronium Fransico Macdonald MD ANES INPUT W LINKED CHGS [...] mg documented in this encounter Care Teams Associate Web Developer Relationship Specialty Start Date End Date Fransico Remy MD [address] [place] [address] PCP - General Emergency Medicine 04/18/23 08/30/23 documented as of this encounter
--- OUTSIDE RECORDS SUMMARY | 2023-10-19 16:52 | XMS_ITS | Encounter Summary ---
Author Organization [facility] Address [facility]in [facility] [place] [address] Care Team Providers Care Ship Superintendent Name Role Phone Fransico Remy MD Primary Care Provider [phone] Encounter Details Date Type Department Care Team (Late st Contact Info) Description 04/18/2023 Telephone [place] [phone] Chinyere Cruz MD [facility] [place] [address] Social History Tobacco Use Types Packs/Day Years [...] 11:20 AM EDT Office Visit [place] [address] Priscilla Blackwell, [facility] [place] [address] 04/16/2024 11:00 AM EDT Office [place] [address] Edna Byrd, [facility] [address] documented as of this encounter Visit Diagnoses Not on filedocumented in this encounter Care Teams Ship Superintendent Relationship Specialty Start Date End Date Fransico Remy MD [address] [place] [address] PCP - General Emergency Medicine 04/18/23 08/30/23 documented as of this encounter
--- OUTSIDE RECORDS SUMMARY | 2023-10-19 16:52 | XMS_ITS | Encounter Summary ---
Author Organization [facility] [place] [address] Care Team Providers Care Special Effects Specialist Name Role Phone Fransico Remy MD Primary Care Provider [phone] Encounter Details Date Type Department Care Team (Late st Contact Info) Description 04/18/2023 3:10 AM EDT Ancillary Procedure [place] [address] Nayana Barker MD [facility] [place] [address] Social History Tobacco Use Types [...] 11:20 AM EDT Office [place] [address] Priscilla Blackwell APRN [facility] ORTHOPAEDIC SURGERY [place], [place] [address] 04/16/2024 11:00 AM EDT [place] [address] Edna Byrd, ZEESHAN [facility] [place] [address] documented as of this encounter Procedures Procedure [...] Barker MD G FILM LIBRARY ORD ERABLES Performing Organization Address City/State/[facility] Co de Phone Number [place], [place] documented in this encounter Visit Diagnoses Not on filedocumented in this encounter Care Teams Special Effects Specialist Relationship Specialty Start Date End Date Fransico Remy MD [address] [place] [address] PCP - General Emergency Medicine 04/18/23 08/30/23 documented as of this encounter
[2023-10-19 16:53] LABS: ALT 21 U/L (16-63); AST 19 U/L (15-37); Albumin 3.4 g/dL (3.4-5.0); Alkaline Phosphatase 73 U/L (46-116); Anion Gap 7.2 mmol/L (3-11); BUN 16 mg/dL (7-18); CO2 26.8 mmol/L (21.0-32.0); CREATININE 2.1 mg/dL (0.70-1.30); Calcium 9.1 mg/dL (8.5-10.1); Calculated LDL 144 mg/dL (<100); Chloride 100 mmol/L (98-107); Cholesterol 211 mg/dL (<200); Estimated GFR 34.29 (mL/min/1.73m2); Glucose 92 mg/dL (74-106); HDL Cholesterol 45 mg/dL (40-60); Potassium 4.1 mmol/L (3.5-5.1); Sodium 134 mmol/L (136-145); Total Protein 7.5 g/dL (6.4-8.2); Triglyceride 111 mg/dL (<150)
[2023-10-19 17:29] LABS: Hemoglobin A1C 5.8 % (<5.7)
== END 2023-10-19 16:46 | disposition home or self-care (01) ==
LOC: NCHCN 16:45
PROVIDERS: PCP Student in an Organized Health Care Education/Training Program; Visit Provider Student in an Organized Health Care Education/Training Program
DX: Z13.220 Encounter for screening for lipoid disorders (principal); R73.03 Prediabetes
CPT/HCPCS: 80053; 80061; 83036; 85025

== ENCOUNTER → 2023-10-24 09:30 | Outpatient (BNVA) | payer MEDICARE, BC, SELFPAY | PROVIDERS: PCP Student in an Organized Health Care Education/Training Program; Visit Provider Nurse Practitioner Gerontology | DX: R33.8 Other retention of urine (principal) | CPT/HCPCS: 51702 ==

== ENCOUNTER → 2023-11-23 15:22 | Outpatient (BNVA) | payer MEDICARE, BC, SELFPAY | PROVIDERS: PCP Student in an Organized Health Care Education/Training Program; Visit Provider Urology | DX: R33.9 Retention of urine, unspecified (principal); Z86.73 Personal history of transient ischemic attack (TIA), and cerebral infarction without residual deficits | CPT/HCPCS: 51705 ==

== ENCOUNTER → 2023-12-19 07:59 | Outpatient (BNVA) | payer MEDICARE, BC, SELFPAY | PROVIDERS: PCP Student in an Organized Health Care Education/Training Program; Visit Provider Nurse Practitioner Gerontology | DX: Z46.6 Encounter for fitting and adjustment of urinary device (principal); R33.8 Other retention of urine | CPT/HCPCS: 51702 ==

== ENCOUNTER → 2024-01-16 15:22 | Outpatient (BNVA) | payer MEDICARE, BC, MEDICAID, SELFPAY | PROVIDERS: PCP Student in an Organized Health Care Education/Training Program; Visit Provider Nurse Practitioner Gerontology | DX: R33.8 Other retention of urine (principal) | CPT/HCPCS: 51702 ==

== ENCOUNTER → 2024-02-14 08:00 | Outpatient (BNVA) | payer MEDICARE, BC, MEDICAID, SELFPAY | PROVIDERS: PCP Student in an Organized Health Care Education/Training Program; Referring Provider Student in an Organized Health Care Education/Training Program; Visit Provider Nurse Practitioner Gerontology | DX: R33.8 Other retention of urine (principal) | CPT/HCPCS: 51702; 99213 ==

== ENCOUNTER 2024-02-28 13:26 | Outpatient (REF) | payer MEDICARE, SELFPAY ==
--- OUTSIDE RECORDS SUMMARY | 2024-02-28 13:40 | XMS_ITS | Encounter Summary ---
Author Organization [facility] Address [facility] [place] [address] Care Team Providers Care Drainman Name Role Phone Brien Phillips Primary Care Provider + Encounter Details Date Type Department Care Team (Latest Contact Info) Description 10/23/2023 Travel Social History Tobacco Use Types Packs/Day [...] Care Team (Late st Contact Info) Description 04/16/2024 11:00 AM EDT Office [place] [address] Joie Motley PA [facility] [place] [address] documented as of this encounter Visit Diagnoses Not on filedocumented in this encounter Care Teams Drainman Relationship Specialty Start Date End Date Brien Phillips PA [facility] [address] PCP - General Internal Medicine 08/31/23 documented as of this encounter
--- OUTSIDE RECORDS SUMMARY | 2024-02-28 13:40 | XMS_ITS | Encounter Summary ---
Author Organization [facility] Address [facility] [place] [address] Care Team Providers Care Smoking Tobacco Cutter Operator Name Role Phone Fransico Remy MD Primary Care Provider [phone] Encounter Details Date Type Department Care Team (Late st Contact Info) Description 08/11/2023 7:05 PM EDT Ancillary Procedure Radiology Library at [facility] [place] [address] Tiarra Meredith MD [facility] [place] [address] Social History Tobacco Use Types Packs/Day Years Used Date Smoking Tobacco: Unknown Alcohol Use Standard Drinks/Week Comments Defer 0 (1 standard drink = 0.6 oz pur e alcohol) [facility] Utilities Answer Date Recorded In the past 12 months has e [employer], gas, oil, or water [employer] threatened to shut off services in your [...] 11:00 AM EDT [place] [address] Joie Motley PA [facility] [place] [address] documented as of this encounter Procedures Procedure Name Priority Date/Time Associated Diagnosis Comments FILM LIBRARY STORAGE ONLY CT HEAD Routine 08/11/2023 6:55 PM EDT documented in this encounter Results * Film Library- Storage Only CT Head (08/11/2023 6:55 PM EDT) Narrative [facility] - 08/11/2023 6:55 PM EDT This exam is auto-finalizing. It's purpose is for storage only. Tiarra Meredith MD IM[facility] FILM LIBRARY ORD ERABLES [place], [place] documented in this encounter Visit Diagnoses Not on filedocumented in this encounter Care Teams Smoking Tobacco Cutter Operator Relationship Specialty Start Date End Date Fransico Remy MD [address] [place] [address] PCP - General Emergency Medicine 04/18/23 08/30/23 documented as of this encounter
--- OUTSIDE RECORDS SUMMARY | 2024-02-28 13:40 | XMS_ITS | Encounter Summary ---
Author Organization [facility] Address [facility] [place] [address] Care Team Providers Care Medical Economics Consultant Name Role Phone Brien Phillips Primary Care Provider + Encounter Details Date Type Department Care Team (Late st Contact Info) Description 2023 Orders Only [place] [address] Priscilla Blackwell, ZE[facility]AN [facility] [place] [address] Chronic left hip pain Social History Tobacco Use Types Packs/Day Years Used Date Smoking Tobacco: Unknown Alcohol Use Standard Drinks/Week Comments Defer 0 (1 standard drink = 0.6 oz pur e alcohol) [facility] Utilities Answer Date Recorded In the past 12 months has [employer], gas, oil, or water [employer] threatened to shut off services in your [...] on file documented as of this encounter Progress Notes * Priscilla Blackwell APRN - 2023 4:34 PM EDT Based on my personal review of the patients chart, medical history, available documents and currentimaging it is my assessment the new images will need to be obtained for appropriate clinical decision making. documented in this encounter Plan of Treatment Upcoming Encounters Date Type Department Care Team (Late st Contact Info) Description 04/16/2024 11:00 AM EDT Office [place] [address] Joie Motley PA [facility] [place] [address] Scheduled Orders Name Type Priority Associated Diagnoses Orde r Schedule XR Pelvis and Hip 2 Views Left Imaging Routine Chronic left hip pain Expected: 10/22/2023, Expires: 04/18/2025 documented as of this encounter Visit Diagnoses Diagnosis Chronic left hip pain Pain in joint, pelvic region and thigh documented in this encounter Care Teams Medical Economics Consultant Relationship Specialty Start Date End Date Brien Phillips PA [facility] [place] [address] PCP - General Internal Medicine 08/31/23 documented as of this encounter
--- OUTSIDE RECORDS SUMMARY | 2024-02-28 13:40 | XMS_ITS | Encounter Summary ---
Author Organization [facility] Address [facility] [place] [address] Care Team Providers Care Rehab Aid Name Role Phone Fransico Remy MD Primary Care Provider [phone] Encounter Details Date Type Department Care Team (Late st Contact Info) Description 08/11/2023 Telephone Vascular [place] [address] Humble Gaviria MD [facility] [place] [address] Social History Tobacco Use Types Packs/Day Years Used Date Smoking Tobacco: Unknown Alcohol Use Standard Drinks/Week Comments Defer 0 (1 standard drink = 0.6 oz pur e alcohol) [facility] Utilities Answer Date Recorded In the past 12 months has e [employer], gas, oil, or water [employer] threatened to shut off services in your [...] Humble Gaviria MD Vascular Fellow PGY6, pager [phone] documented in this encounter Plan of Treatment Upcoming Encounters Date Type Department Care Team (Late st Contact Info) Description 04/16/2024 11:00 AM EDT Office [place] [address] Joie Motley PA [facility] [place] [address] documented as of this encounter Visit Diagnoses Not on filedocumented in this encounter Care Teams Rehab Aid Relationship Specialty Start Date End Date Fransico Remy MD [address] [place] [address] PCP - General Emergency Medicine 04/18/23 08/30/23 documented as of this encounter
--- OUTSIDE RECORDS SUMMARY | 2024-02-28 13:40 | XMS_ITS | Encounter Summary ---
Author Organization [facility] Address [facility] [address] Care Team Providers Care Director Cpg Name Role Phone Brien Phillips Primary Care Provider + Encounter Details Date Type Department Care Team (Latest Contact Info) Description 10/25/2023 Travel Social History Tobacco Use Types Packs/Day Years Used Date Smoking Tobacco: Never Alcohol Use Standard Drinks/Week Comments Defer 0 (1 standard drink = 0.6 oz pur e alcohol) [facility] Utilities Answer Date Recorded In [...] 11:00 AM EDT [place] [address] Joie Motley PA [facility] [place] [address] documented as of this encounter Visit Diagnoses Not on filedocumented in this encounter Care Teams Director Cpg Relationship Specialty Start Date End Date Brien Phillips PA [address] [facility] [place] [address] PCP - General Internal Medicine 08/31/23 documented as of this encounter
--- OUTSIDE RECORDS SUMMARY | 2024-02-28 13:40 | XMS_ITS | Clinical Summary ---
Author Organization [facility] Address [facility] [place] [address] Care Team Providers Care Sugar Cane Grower Name Role Phone Brien Phillips Primary Care Provider + Allergies No known active allergies Medications Medication Sig Dispensed Refills Start Date End Date Status acetaminophen (Tylenol) 325 mg tablet Take 3 tablets by mouth every 6 hours as needed for Pain or Fever. 06/02/2023 Active amLODIPine (Norvasc) 10 mg tablet Take 1 tablet by mouth daily. 06/02/2023 Active camphor-methyl salicyl-menthoL (Bengay Ultra Strength) Cream Apply topically 2 times daily as needed (hip pain). 06/02/2023 Active aspirin 81 mg chewable tablet Take 81 mg by mouth daily. 06/02/2023 Active chlorthalidone (Hygroton) 25 mg tablet Take 1 tablet by mouth nightly. 06/02/2023 Active cloNIDine (Catapres) 0.2 mg tablet Take 1 tablet by mouth 3 times daily. 06/02/2023 Active Additional Information Patient taking differently: 0.1 mgOral 3 TIMES DAILY, Reported on 10/25/2023 polyethylene glycoL (Miralax) 17 gram oral powder packet Take 17 g by mouth daily. 06/02/2023 Active QUEtiapine (SEROquel) 25 mg tablet Take 3 tablets by mouth nightly. 06/02/2023 Active Additional Information Patient taking differently: 25 mgOral NIGHTLY, Reported on 10/25/2023 terazosin (Hytrin) 1 mg capsule Take 1 capsule by mouth 2 times daily. 06/02/2023 Active ondansetron (Zofran) 4 mg/5 mL Solution Take 4 mg by mouth 3 times daily. Active meclizine (Antivert) 12.5 mg tablet Take 12.5 mg by mouth 3 times daily. Active DULoxetine [address] (Cymbalta) [address] capsule Take 30 mg by mouth 2 times daily. Active traZODone (Desyrel) 50 mg tablet Take 100 mg by mouth nightly. Active melatonin 5 mg tablet Take 5 mg by mouth daily. Active Active Problems Problem Noted Date Diagnosed Date Hypertension 10/25/2023 Prediabetes 10/25/2023 h/o anemia 10/25/2023 H/O: alcohol abuse 10/25/2023 Primary osteoarthritis of left hip 10/25/2023 ICH (intracerebral hemorrhage) 04/18/2023 Overview (05/21/2023): Right [...] and Inattention: 0 ([place]) NIH Total Score Family History Medical History Relation Comments Diabetes Neg Hx Social History Tobacco Use Types Packs/Day Years Used Date Smoking Tobacco: Never Tobacco Cessation:Counseling Given: Not Answered Alcohol Use Standard Drinks/Week Comments Defer 0 (1 standard drink = 0.6 oz pur e alcohol) [facility] Utilities Answer Date Recorded In [...] - - Weight 105.2 kg (232 lb) 10/25/2023 11:29 AM EDT Height 175.3 cm (5' 9) 10/25/2023 11:29 AM EDT Body Mass Index 34.26 10/25/2023 11:29 AM EDT Plan of Treatment Upcoming Encounters Date Type Department Care Team (Late st Contact Info) Description 04/16/2024 11:00 AM EDT Office [place] [address] Joie Motley PA [facility] [place] [address] Health Maintenance Due Date Last Done Comments CT Colonography 1957 Colonoscopy 1957 Colorectal Cancer Screening 1957 FIT DNA 1957 FIT 1957 Sigmoidoscopy (10 year) with FIT yearly 1957 Sigmoidoscopy 1957 Tetanus/Diphtheria/Pertussis Vaccines (1 - Tdap) 1976 Pneumoccocal Vaccine: 50+ (1 of 1 - PCV) 10/21/2007 Zoster vaccine (1 of 2) 10/21/2007 Covid-19 Vaccine ( - 2023-2 5 season) 2023 Influenza (Flu) vaccine (1 o f 1 - Influenza standard series) 10/08/2023 Pre-DM monitoring (HgbA1C or FBG) 06/01/2024 06/02/2023, 06/01/2023, 05/31/2023, Additional history exists Lipid Screening 04/18/2028 04/19/2023 Hepatitis C Screening Completed 04/28/2023 Diabetes Screening (HgbA1C o r Glucose) Discontinued 06/02/2023, 06/01/2023, 05/31/2023, Additional history exists Procedures Procedure Name Priority Date/Time Associated Diagnosis Comments BASIC METABOLIC PANEL Routine 06/02/2023 12:59 AM EDT HEPATITIS C ANTIBODY Routine 04/28/2023 6:11 PM EDT HDL/CHOL PROFILE Routine 04/19/2023 12:3 5 AM EDT from Last 3 Months or Most Recently Relevant to Health Maintenance Results * (ABNORMAL) Basic Metabolic Panel (non-fasting) (06/02/2023 12:59 AM EDT) Glucose 112 65 - 199 mg/dL [facility] Comment:Diabetes: >=200 mg/d L plus symptoms Blood Urea Nitrogen 36(H) 10 - 20 mg/dL [facility] Creatinine 1.94(H) 0.80 - 1.50 mg/dL [facility] Sodium 139 135 - 145 mmol/L [facility] Potassium 4.0 3.5 - 5.0 mmol/L [facility] Comment: Please note: ??Patients with WBC >100,000 may have falsely elevated Potassium levels. ??For accurate Potassium quantification in these patients send serum separator tube (gold top) for subsequent determinations. ??Contact the Clinical Chemistry Laboratory if there are any questions. Chloride 105 98 - 107 mmol/L [facility] Carbon Dioxide 21(L) 22 - 31 mmol/L [facility] Anion Gap 13 5 - 15 mmol/L [facility] Calcium 9.8 8.5 - 10.5 mg/dL [facility] Est Glomerular Filtration Rate 38(L) >=60 mL/min/1. 73 m?? [facility] [...] Agency Comment Spec In Lab Edna Byrd ENVIRONMENTAL TECHNICIAN CHEMISTRY ORDERABLE S [facility] [place] [address] * Hepatitis C Antibody (04/28/2023 6:11 PM EDT) Hepatitis C Antibody Negative Negative [facility] Blood 04/28/2023 6:11 PM EDT 04/28/2023 6:20 PM EDT Narrative Resulting Agency Comment Spec In Lab Angy Sainz APRN CHEMISTRY ORDERABLES [facility] [place] [address] * HDL/Cholesterol Profile (04/19/2023 12:35 AM EDT) Cholesterol, Total 220 mg/dL [facility] Comment: Desirable: ? <200 mg/dL Borderline High: 200-239 mg/dL Higher: ?>zt=054 mg/dL HDL Cholesterol 86 mg/dL [facility] Comment: Females: High Risk: <50 mg/dL Males: High Risk: <40 mg/dL Cholesterol/HDL Ratio 2.6 ratio [facility] Lipid Interpretation See Note [facility] Comment: It is important to [...] individuals with atherosclerotic cardiovascular disease (ASCVD)or LDL >ul=950 mg/dL, use a high-intensity statin (40-80 mg [...] Agency Comment Spec In Lab Nilda Jeronimo APRN CHEMISTRY ORDERABL ES [facility] [address] from Last 3 Months or Most Recently Relevant to Health Maintenance Advance Directives Documents on File Type Date Recorded Patient Cogeneration Technician Expl anation Advance Directives and Livin g Will 05/29/2023 4:11 PM * Do NOT Attempt CPR - Inpatient (Latest Code Status on File) Date Activated Date Inactivated Comments 05/20/2023 5:31 PM 06/02/2023 2:53 PM Question Answer Comments Code Status decision made by: Healthcare Agent ( DPOA) Name (and relationship if needed): tete pollard Content of discussion: No escalation of care [...] ( DPOA) Name (and relationship if needed): tete pollard Independent of Code Status d ecision, are there any PRE Arrest limitations (Intubation, Pressors, Cardioversion / Pacing, etc)? Yes PRE Arrest Intubation Permitted? No * Attempt Cardiopulmonary Resuscitation - Inpatient Date Activated Date Inactivated Comments 04/18/2023 4:08 AM 05/15/2023 9:40 AM Question Answer Comments Code Status decision made by: Patient Content of discussion: Will verify on arrival Care Teams Sugar Cane Grower Relationship Specialty Start Date End Date [place] [address] [place] [address] PCP - General Internal Medicine 08/31/23
--- OUTSIDE RECORDS SUMMARY | 2024-02-28 13:40 | XMS_ITS | Encounter Summary ---
[place] [address] Care Team Providers Care Gum Mixer Name Role Phone Brien Phillips Primary Care Provider + Reason for Referral * Consultation (Routine) - Denied Specialty Diagnoses / Procedures Referred By Contgaviota t Referred To Contact [facility] Diagnoses Unilateral primary osteoarthritis, left hip Brien Phillips PA [address] [place] [address] [facility] [place] [place] [address] Referral ID Status Reason Start Date Expiration Date V isits Requested Visits Authorized [id number] Denied Consult, Test & Treat PCP Updated and/or Approved 08/22/2023 08/20/2024 6 0 Encounter Details Date Type Department Care Team (Late st Contact Info) Description 08/31/2023 Transcribe Orders eD Incoming Referrals [phone] Brien Phillips PA [address] [place], [place] [id number] Unilateral primary osteoarthritis, left hip Social History Tobacco Use Types Packs/Day Years Used Date Smoking Tobacco: Unknown Alcohol Use Standard Drinks/Week Comments Defer 0 (1 standard drink = 0.6 oz pur e alcohol) [facility] Utilities Answer Date Recorded In the [...] 11:00 AM EDT Office [place] [address] Joie Motley PA [facility] [place] [address] Scheduled Referrals Name Type Priority Associated Diagnoses Order Schedule Referral to Pain Management Outpatient Referral Routine Unilateral primary osteoarthritis, left hip Ordered: 08/31/2023 documented as of this encounter Visit Diagnoses Diagnosis Unilateral primary osteoarthritis, left hip documented in this encounter Care Teams Gum Mixer Relationship Specialty Start Date End Date Brien Phillips PA [address] [place] [address] PCP - General Internal Medicine 08/31/23 documented as of this encounter
--- OUTSIDE RECORDS SUMMARY | 2024-02-28 13:40 | XMS_ITS | Encounter Summary ---
Author Organization [facility] Address [facility] [place] [address] Care Team Providers Care Home Health Lvn Name Role Phone Brien Phillips Primary Care Provider + Reason for Visit * Reason Onset Date Comments Appointment 10/16/2023 Encounter Details Date Type Department Care Team (Late st Contact Info) Description 10/16/2023 [place] [address] Edna Byrd, [facility] [place] [address] Appointment Social History Tobacco Use Types Packs/Day Years Used Date Smoking Tobacco: Unknown Alcohol Use Standard Drinks/Week Comments Defer 0 (1 standard drink = 0.6 oz pur e alcohol) [facility] Utilities Answer Date Recorded In the past 12 months has e [employer], gas, oil, or water [employer] threatened to shut off services in your [...] place to sleep or slept in a usp (including now)? No 04/20/2023 Sex and Gender [...] - 10/16/2023 4:30 PM EDT Copied from [facility] #[id number]. Topic: Specialty Dept CRMs - Appointment Needed [...] 11:00 AM EDT [place] [address] Joie Motley, PA [facility] [place] [address] documented as of this encounter Visit Diagnoses Not on filedocumented in this encounter Care Teams Home Health Lvn Relationship Specialty Start Date End Date [place] [address] PCP - General Internal Medicine 08/31/23 documented as of this encounter
--- OUTSIDE RECORDS SUMMARY | 2024-02-28 13:40 | XMS_ITS | Encounter Summary ---
Author Organization [facility] Address [facility] [place] [address] Care Team Providers Care Bottled Beverage Inspector Name Role Phone Brien Phillips Primary Care Provider + Encounter Details Date Type Department Care Team (Late st Contact Info) Description 09/07/2023 Telephone [facility] [place] [phone] Steve Carmona Social History Tobacco Use Types Packs/Day Years Used Date Smoking Tobacco: Unknown Alcohol Use Standard Drinks/Week Comments Defer 0 (1 standard drink = 0.6 oz pur e alcohol) [facility] Utilities Answer Date Recorded In the [...] 11:00 AM EDT [place] [address] Joie Motley PA [facility] [address] [place] [address] documented as of this encounter Visit Diagnoses Not on filedocumented in this encounter Care Teams Bottled Beverage Inspector Relationship Specialty Start Date End Date Brien Phillips [place] [address] PCP - General Internal Medicine 08/31/23 documented as of this encounter
--- OUTSIDE RECORDS SUMMARY | 2024-02-28 13:40 | XMS_ITS | Encounter Summary ---
Author Organization [facility] [place] [address] Care Team Providers Care Credit Portfolio Manager Name Role Phone Brien Phillips Primary Care Provider + Reason for Referral * Physical Therapy (Routine) - Authorized Specialty Diagnoses / Procedures Referred By Dannie lozano Referred To Contact Physical Therapy Diagnoses Primary osteoarthritis of left hip Physical deconditioning Priscilla Blackwell APRN [facility] [place] [address] Physical Therapy, Brenton Majano RUDDY TRUJILLO,[facility] [address] [place] [address] Referral ID Status Reason Start Date Expiration Date Visits Requested Visits Authorized [id number] Authorized Evaluate and Treat 10/25/2023 04/22/2024 24 24 Reason for Visit * Reason Comments Establish Care L HIP PAIN * Consultation (Routine) - Closed Specialty Diagnoses / Procedures Referred By Dannie lozano Referred To Contact Orthopaedics Diagnoses Unilateral primary osteoarthritis, left hip L Hip Pain Brien Phillips PA [address] [place] [address] [facility] [address] [place] [phone] Referral ID Status Reason Start Date Expiration Date V isits Requested Visits Authorized [id number] Closed Consult, Test & Treat PCP Updated and/or Approved 09/19/2023 09/18/2024 1 1 Encounter Details Date Type Department Care Team (Latest Contact Info) Description 10/25/2023 11:20 AM EDT Office [place] [address] Priscilla Blackwell APRN [facility] [place] [address] Primary osteoarthritis of left hip (Primary Dx); Physical deconditioning Social History Tobacco Use Types Packs/Day Years Used Date Smoking Tobacco: Never Tobacco Cessation:Counseling Given: Not Answered Alcohol Use Standard Drinks/Week Comments Defer 0 (1 standard drink = 0.6 oz pur e alcohol) [facility] Utilities Answer Date Recorded In the past 12 months has th e [employer], gas, oil, or water [employer] threatened to shut off services in your [...] Sign Reading Time Taken Comments Blood Pressure - - Pulse - - Temperature - - Respiratory Rate - - Oxygen Saturation - - Inhaled Oxygen Concentration - - Weight 105.2 kg (232 lb) 10/25/2023 11:29 AM EDT Height 175.3 cm (5' 9) 10/25/2023 11:29 AM EDT Body Mass Index 34.26 10/25/2023 11:29 AM EDT documented in this encounter Progress Notes * Priscilla Blackwell, CHARGE MASTER ANALYST - 10/25/2023 11:20 AM EDT Images from the original note were not included. Arthroplasty History/Previous Hip Surgery: none Chief Complaint: Chief Complaint Patient presents with Establish Care L HIP PAIN This patient was referred from Self mail I.D.: Bello Acosta is a 68 y.o. year old male hx of HTN, hx of (ICH) hemorrhagic stroke, spastic bladder, ataxia, aortic dissection, pre-diabetes (hemoglobin A1c 6.April) who is being seen todayto discuss his left hip. His history and physical exam were reviewed in detail. He states the hip has been symptomatic for chronic duration. Hx of severe hip pain prior to his stroke per PT and report. Pain is too bad now . There was no inciting trauma/injury. Hx of heavyalcohol use by historical medical records yet no report of AVN. He does describe hip pain, does report groin pain, does endorse thigh pain and does feel as if he walks with a limp. There is Some radiation of the pain not below his knee. Aggravating factors include start up can be painful. Yet, he is able to sleep ok. Again, prior to CVA pain was difficult to manage. He reportedly had severe pain while in REHAB for his stroke as he was trying to undergo PT for his CVA. Alleviating factors include relative rest, avoidance of painfulactivity. He can walk short distances and does use assistive devices. He has no stairs in his home.Single level and able to ambulate with assistive device and transfer to bed. He does have difficulty with forward motions with the hip. He can sit comfortably in a chair. He has not had tried injections into the joint. He has tried OTC analgesics. No topical analgesics. Mr. Acosta denies no fevers/chills/headache/chest pain/shortness of breath/abdominal pain/nausea or vomiting/weight changes. + current indwelling catheter due to bladder spasms. Hx of very recent UTI 3 times over the summer most recently early October. He does not endorse a history of DVT/PE or clotting disorder associated with surgery. ASSOCIATED DIAGNOSES: He does not reports problems with the contralateral hip, does report problems with the ipsilateral knee and does not have a history of spine or back issues. ALLERGIES No Known Allergies Allergies to metals: none reported. SOCIAL HISTORY: Alcohol use questions deferred to the physician. Drug use questions deferred to thephysician. 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 SIGNIFICANT MEDICAL CO MORBIDITIES: Patient Active Problem List Diagnosis Code ICH (intracerebral hemorrhage) I61.9 Hypertension I10 Prediabetes R73.03 No surgical history to report. VITALS: BP Readings from Last 1 Encounters: 07/31/23 121/82 Pulse Readings from Last 1 Encounters: 07/31/23 73 There is no height or weight on file to calculate BMI. PHYSICAL EXAM: Constitution: Patient sits in the clinic today in no apparent distress. The patient is alert and oriented x 3. Appearance is age-appropriate, affect is similarly appropriate. Head, ears, eyes, nose, throat: grossly normal. Anicteric, no apparent lymphadenopathy. Chest: Normal chest expansion with re gular inspiratory effort. No audible wheezing with regularly inspiratory effort. Knee exam: mild LEFT knee pain. No effusion. SLR capability intact. I have made the following determinations: Hip Exam: Left Prior surgery on this joint:No Leg Length: Longer leg: right Limb Length discrepancy: 1cm Motion: Total degrees of Flexion: 90 Total degrees of Abduction: 20 Total degrees of Ext Rotation: 20 Total degrees of Internal Rotation: 0 Skin Integrity: Normal Motor/Sensory: Left Distal Motor: Normal Distal Sensory: Normal Hip Abductors: 5 Radiographic evidence of joint damage:[0= normal; 1=minimal ; 2= some osteophytes , some narrowing ; 3= moderate osteophytes, significant narrowing, mild deformity; 4= large osteophytes, marked narrowing, obvious deformity]: 4= large ostophytes, marked narrowing, obvious deformity Questionnaire Responses: 10/23/2023 General Health, Prior Treatments, Preexisting Condition, Health Habits, About You PROMIS-10 General Health Poor PROMIS-10 Quality of Life Poor PROMIS-10 Physical Health Poor PROMIS-10 Mental Health Poor PROMIS-10 Social Activity Poor PROMIS-10 Everyday Activities A little PROMIS-10 Pain 7 PROMIS-10 Fatigue Moderate PROMIS-10 Social Roles Poor PROMIS-10 Anxious or Depressed Often PROMIS PHYSICAL SCORE (range 16-68) 29.6 PROMIS MENTAL SCORE (range 21-68) 25.1 HOOS JR Scores 20.81 PHILOMENA Grade 4 Alzheimer's or dementia No Cirrhosis or liver disease No HIV/AIDS No Pain in more than one joint in legs Yes Back or neck pain No Heart attack No Heart failure No Unclog/bypass leg arteries No Stroke, blood clot, TIA Yes Difficulty moving arm/leg Yes Asthma No Emphysema, chronic bronchitis, or COPD No Stomach ulcers/peptic ulcer disease No Diabetes No Poor kidney function Yes Dialysis No Kidney transplant No Rheumatic conditions Yes Take medications for rheumatic conditions No Cancer No Height (feet) 5 feet Height (Inches) 10 BMI Incomplete Ever used tobacco products No Ever used alcoholic beverages Yes Alcohol frequency Never WHO - Alcohol Advice 0 (You are at low risk of health and other problems from your current pattern of use.) Live Alone No Marital situation Schooling High school graduate or GED # People Supported 2 Bolivian, , No, not Bolivian// Race White Health Literacy Not at all Currently working No Not working because: Retired 10/23/2023 [facility] Response HOOS JR Scores 20.81 10/23/2023 [facility] Response HOOS JR Scores 20.81 ASSESSMENT AND PLAN: Mr. Acosta is a 68 y.o. year old male hx of HTN, hx of (ICH) hemorrhagic stroke, spastic bladder,ataxia, aortic dissection, pre-diabetes (hemoglobin A1c 6.April) Pain is mild at this time with severe physical deconditioning. We reviewed the multiple treatment options available to him for this condition. Both operative and non operative options were discussed as well as the pure elective nature of each. I reviewed the concept of the arthritis ladder with its step-louise approach, rising in invasiveness based on either previous response or symptom severity/impact on lifestyle. Considering the apparent impact on his lifestyle and having explored non- operative treatment options, I indicated that in my opinion, the treatment most likely to restore a more normal, pain-free level of function would be to consider a LEFT hip joint replacement. I discussed how Dr. Donahue would perform the procedure and all of their questions were answered. However, at this time, he feels that his pain is not too bad. Additionally, given his multiple medical co morbidities and physical deconditioning from recent stroke, we agreed to trial a course of PT closer to home Brenton Majano PT. The patient indicates understanding of these issues and agrees withthe plan. PT orders faxed today. OTC APAP, cool packs, topical analgesics topical PRN. Assistive devices as necessary. We agree to be in touch in a few months. If pain changes in quality or character, we can try a fluoro guided steroid injection. If pain persists despite conservative management consider joint arthroplasty. Yet, given medical comorbidities, he would be at higher risk for complications. He would need pre-op clearance from his PCP, and risk stratification with our Hospitalist team. He would benefit from either post op rehab and or in home rehab services that can be coordinated with our Joint Arthroplasty team. In addition, the following is relevant to their care: BMI under 7.0 Non-smoker Hemoglobin A1C ~ 6.0 Mr. Acosta and his are appreciative of our consult today and comfortable with this approach.Based on my personal review of the patients chart, medical history, available documents and currentimaging it is my assessment the new images will need to be obtained for appropriate clinical decision making. F.u by My in a few months with a progress report. PT orders faxed to Brenton Majano and Carolyn. I have already ordered this as a future order in the computer. documented in this encounter Plan of Treatment Upcoming Encounters Date Type Department Care Team (Late st Contact Info) Description 04/16/2024 11:00 AM EDT [place] [address] Joie Motley PA [facility] [place] [address] Scheduled Referrals Name Type Priority Associated Diagnoses Orde r Schedule Referral to Physical Therapy Outpatient Referral Routine Primary osteoarthritis of left hip Physical deconditioning Ordered: 10/25/2023 documented as of this encounter Visit Diagnoses Diagnosis Primary osteoarthritis of left hip- Primary Primary localized osteoarthrosis, pelvic region and thigh Physical deconditioning Debility, unspecified documented in this encounter Care Teams Credit Portfolio Manager Relationship Specialty Start Date End Date Brien Phillips PA [facility] [address] [address] PCP - General Internal Medicine 08/31/23 documented as of this encounter
--- OUTSIDE RECORDS SUMMARY | 2024-02-28 13:41 | XMS_ITS | Encounter Summary ---
[place] [address] Care Team Providers Care Executive Secretary Name Role Phone Fransico Remy MD Primary Care Provider [phone] Encounter Details Date Type Department Care Team (Latest Contact Info) Description 07/31/2023 1:15 PM EDT Laboratory Appointment Lab [address] [place] [phone] Dissection of thoracoabdominal aortic aneurysm (TAAA) Social History Tobacco Use Types Packs/Day Years Used Date Smoking Tobacco: Unknown Alcohol Use Standard Drinks/Week Comments Defer 0 (1 standard drink = 0.6 oz pur e alcohol) [facility] Utilities Answer Date Recorded In [...] 11:00 AM EDT Office [place] [address] Joie Motley PA [facility] [address] [place] [address] documented as of this encounter Procedures Procedure Name Priority Date/Time Associated Diagnosis Comments CREATININE STAT 07/31/2023 1:08 PM EDT Dissection of thoracoabdominal aortic aneurysm (TAAA) documented in this encounter Results * (ABNORMAL) Creatinine (07/31/2023 1:08 PM EDT) Creatinine 1.72(H) 0.80 - 1.50 mg/dL [facility] Est Glomerular Filtration Rate 44(L) >=60 mL/min/1. 73 m?? [facility] Comment: This patient's estimated [...] In Lab Arina Segovia APRN CHEMISTRY ORDERABLES [facility] [place] [address] documented in this encounter Visit Diagnoses Diagnosis Dissection of thoracoabdominal aortic aneurysm (TAAA) documented in this encounter Care Teams Executive Secretary Relationship Specialty Start Date End Date Fransico Remy MD [address] [place] [address] PCP - General Emergency Medicine 04/18/23 08/30/23 documented as of this encounter
--- OUTSIDE RECORDS SUMMARY | 2024-02-28 13:41 | XMS_ITS | Encounter Summary ---
Author Organization [facility] Address [facility] [place] [address] Care Team Providers Care Laser Engineer Name Role Phone Fransico Remy MD Primary Care Provider [phone] Encounter Details Date Type Department Care Team (Late st Contact Info) Description 06/21/2023 Orders Only [place] [phone] EloyDelilah, RN Dissection of thoracoabdominal aortic aneurysm (TAAA) Social History Tobacco Use Types Packs/Day Years Used Date Smoking Tobacco: Unknown Alcohol Use Standard Drinks/Week Comments Defer 0 (1 standard drink = 0.6 oz pur e alcohol) [facility] Utilities Answer Date Recorded In the [...] 11:00 AM EDT Office [place] [phone] Joie Motley PA [facility] [place] [address] documented as of this encounter Results * (ABNORMAL) Creatinine (07/31/2023 1:08 PM EDT) Creatinine 1.72(H) 0.80 - 1.50 mg/dL [facility] Est Glomerular Filtration Rate 44(L) >=60 mL/min/1. 73 m?? [facility] Comment: This patient's estimated GFR [...] In Lab Arina Segovia APRN CHEMISTRY ORDERABLES [facility] [place] [address] documented in this encounter Visit Diagnoses Diagnosis Dissection of thoracoabdominal aortic aneurysm (TAAA) documented in this encounter Care Teams Laser Engineer Relationship Specialty Start Date End Date Fransico Remy MD [address] [place] [address] PCP - General Emergency Medicine 04/18/23 08/30/23 documented as of this encounter
--- OUTSIDE RECORDS SUMMARY | 2024-02-28 13:41 | XMS_ITS | Encounter Summary ---
Author Organization [facility] [place] [address] Care Team Providers Care Game Technician Name Role Phone Fransico Remy MD Primary Care Provider [phone] Encounter Details Date Type Department Care Team (Late st Contact Info) Description 06/22/2023 Telephone [place] [phone] Nahum Sepulveda [facility] [place] [address] Social History Tobacco Use Types Packs/Day Years Used Date Smoking Tobacco: Unknown Alcohol Use Standard Drinks/Week Comments Defer 0 (1 standard drink = 0.6 oz pur e alcohol) [facility] Utilities Answer Date Recorded In the past 12 months has e [employer], gas, oil, or water [employer] threatened to shut off services in your [...] 11:00 AM EDT Office [place] [address] Joie Motley PA [facility] [place] [address] documented as of this encounter Visit Diagnoses Not on filedocumented in this encounter Care Teams Game Technician Relationship Specialty Start Date End Date Fransico Remy MD [address] [place] [address] PCP - General Emergency Medicine 04/18/23 08/30/23 documented as of this encounter
--- OUTSIDE RECORDS SUMMARY | 2024-02-28 13:41 | XMS_ITS | Encounter Summary ---
Author Organization [facility] Address [facility] [place] [address] Care Team Providers Care Logistics Lead Name Role Phone Fransico Remy MD Primary Care Provider [phone] Encounter Details Date Type Department Care Team (Late st Contact Info) Description 08/11/2023 6:35 PM EDT Telehealth notes only TeleHealth [facility] [place] [address] Telehealth, Neurology None Social History Tobacco Use Types Packs/Day Years Used Date Smoking Tobacco: Unknown Alcohol Use Standard Drinks/Week Comments Defer 0 (1 standard drink = 0.6 oz pur e alcohol) [facility] Utilities Answer Date Recorded In the [...] 11:00 AM EDT Office [place] [address] Joie Motley PA [facility] [place] [address] documented as of this encounter Visit Diagnoses Not on filedocumented in this encounter Care Teams Logistics Lead Relationship Specialty Start Date End Date Fransico Remy MD [address] [place] [address] PCP - General Emergency Medicine 04/18/23 08/30/23 documented as of this encounter
--- OUTSIDE RECORDS SUMMARY | 2024-02-28 13:41 | XMS_ITS | Encounter Summary ---
Author Organization [facility] Address [facility] [place] [address] Care Team Providers Care Life Skills Teacher Name Role Phone Fransico Remy MD Primary Care Provider [phone] Reason for Referral * Diagnostic Test (Routine) - Closed Specialty Diagnoses / Procedures Referred By Contac t Referred To Contact Radiology Diagnoses Dissection of aorta, unspecified portion of aorta Procedures CT Angiogram Chest Abdomen Pelvis w Contrast Narayan Alvarez MD [facility] [place] [address] [facility] [place] [address] Referral ID Status Reason Start Date Expiration Date V isits Requested Visits Authorized [id number] Closed Specialty Service Requested 04/25/2023 10/25/2024 1 1 Reason for Visit * Diagnostic Test (Routine) - Closed Specialty Diagnoses / Procedures Referred By Contac t Referred To Contact Radiology Diagnoses Dissection of aorta, unspecified portion of aorta Procedures CT Angiogram Chest Abdomen Pelvis w Contrast Narayan Alvarez MD [facility] [place] [address] [facility] [place] [address] Referral ID Status Reason Start Date Expiration Date V isits Requested Visits Authorized [id number] Closed Specialty Service Requested 04/25/2023 10/25/2024 1 1 Encounter Details Date Type Department Care Team (Latest Contact Info) Description 07/31/2023 2:35 PM EDT - 07/31/2023 11:59 PM EDT Hospital Encounter CT Scan at [facility] [place] [address] Georges Jacob MD [facility] [place] [address] Dissection of aorta, unspecified portion of aorta Discharge Disposition: Home Social History Tobacco Use Types Packs/Day Years Used Date Smoking Tobacco: Unknown Alcohol Use Standard Drinks/Week Comments Defer 0 (1 standard drink = 0.6 oz pur e alcohol) [facility] Utilities Answer Date Recorded In the past [...] Take 1 tablet by mouth daily. 06/02/2023 camphor-methyl salicyl-menthoL (Bengay Ultra Strength) Cream Apply topically 2 times daily as needed (hip pain). 06/02/2023 aspirin 81 mg chewable tablet Take 81 mg by mouth daily. 06/02/2023 chlorthalidone (Hygroton) 25 mg tablet Take 1 tablet by mouth nightly. 06/02/2023 cloNIDine (Catapres) 0.2 mg tablet Take 1 tablet by mouth 3 times daily. 06/02/2023 polyethylene glycoL (Miralax) 17 gram oral powder packet Take 17 g by mouth daily. 06/02/2023 QUEtiapine (SEROquel) 25 mg tablet Take 3 tablets by mouth nightly. 06/02/2023 terazosin (Hytrin) 1 mg capsule Take 1 capsule by mouth 2 times daily. 06/02/2023 carboxymethylcellulose (Refresh Plus) 0.5 % Dropperette Place 1 drop into both eyes 3 times daily as needed. 06/02/2023 10/25/2023 enoxaparin (Lovenox) 40 mg/0.4 mL Syringe Inject 0.4 mLs subcutaneously nightly. 06/02/2023 10/25/19 ergocalciferoL, vitamin D2, (vitamin D2) 200 mcg/mL (8,000 unit/mL) Drops Take 6.25 mLs by mouth once a week. 06/05/2023 10/25/2023 FLUoxetine (PROzac) 20 mg capsule Take 1 capsule by mouth daily. 06/02/2023 10/25/2023 ipratropium-albuteroL (Duoneb) 0.5 mg-3 mg(2.5 mg base)/3 mL Solution for Nebulization Take 0.5 mg by nebulization every 4 hours as needed. 06/02/2023 10/25/2023 lisinopriL (Zestril) 40 mg tablet Take 1 tablet by mouth daily. 06/02/2023 10/25/2023 bisacodyL (Dulcolax) [address] 1 suppository rectally daily as needed. 06/02/2023 10/25/2023 bisacodyl EC (Dulcolax) 5 mg Tablet, Delayed Release (E.C.) Take 2 tablets by mouth 2 times daily as needed for Constipation. 06/02/2023 10/25/2023 lactulose (Chronulac) 20 gram/30 mL Solution Take 30 mLs by mouth daily as needed. 06/02/2023 10/25/2023 senna-docusate (Pericolace) 8.6-50 mg Tablet Take 2 tablets by mouth 2 times daily as needed for Constipation. 06/02/2023 10/25/2023 simethicone (Mylicon) 40 mg/0.6 mL Drops, Suspension Take 0.6 mLs by mouth every 6 hours as needed. 06/02/2023 10/25/2023 sodium chloride (NebuSal) 3 % Solution for Nebulization Take 4 mLs by nebulization every 4 hours as needed for Cough. 06/02/2023 10/25/2023 tamsulosin (Flomax) 0.4 mg capsule Take 1 capsule by mouth daily. 06/02/2023 10/25/2023 documented as of this encounter Plan of Treatment Upcoming Encounters Date Type Department Care Team (Late st Contact Info) Description 04/16/2024 11:00 AM EDT [place] [address] Joie Motley PA [facility] [place] [address] documented as of this encounter Procedures Procedure Name Priority Date/Time Associated Diagnosis Comments CT ANGIOGRAM CHEST ABDOMEN PELVIS W CONTRAST Routine 07/31/2023 3:45 PM EDT Dissection of aorta, unspecified portion of aorta documented in this encounter Results * CT Angiogram Chest Abdomen Pelvis w Contrast (07/31/2023 3:45 PM EDT) [employer] WORKSTATION ID [id number] RAD Anatomical Region Laterality Modality Abdomen, Chest Computed Tomogra phy Impressions 08/01/2023 9:39 AM EDT 1. 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 ? Electronically signed by: Nicolette Cuevas MD, [facility] ??([phone]), at 08/01/2023 9:39 AM Narrative 08/01/2023 9:39 [...] administration of contrast. Administered 97.0 ml of [id number] mg/ml. Maximum intensity projection (MIP) were reformatted. [...] Unchanged appearance and extent of the known Wool[place] B dissectionextending from the origin of the [...] have questions please contactthe health acute care registered nurse that requested your imaging first. Electronically signed by: Nicolette Cuevas MD, [facility]([phone]), at 08/01/2023 9:39 AM Georges Jacob MD [...] mLs documented in this encounter Care Teams Life Skills Teacher Relationship Specialty Start Date End Date Fransico Remy MD [address] [place] [address] PCP - General Emergency Medicine 04/18/23 08/30/23 documented as of this encounter
--- OUTSIDE RECORDS SUMMARY | 2024-02-28 13:41 | XMS_ITS | Encounter Summary ---
[place] [address] Care Team Providers Care Multiple Sclerosis Nurse Name Role Phone Fransico Remy MD Primary Care Provider [phone] Reason for Referral * Diagnostic Test (Routine) - New Request Specialty Diagnoses / Procedures Referred By Dannie lozano Referred To Contact Radiology Diagnoses Dissection of thoracoabdominal aortic aneurysm (TAAA) Procedures CT Angiogram Chest Abdomen Pelvis w Contrast Dhaval Kidd MD [facility] [place] [address] [facility] [place] [address] Referral ID Status Reason Start Date Expiration Date Visits Requested Visits Authorized [id number] New Request Specialty Service Requested 07/31/2023 01/29/2025 1 1 Encounter Details Date Type Department Care Team (Latest Contact Info) Description 07/31/2023 4:00 PM EDT Office Visit [place] [address] Dhaval Kidd MD [facility] [address] 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) Social History Tobacco Use Types Packs/Day Years Used Date Smoking Tobacco: Unknown Alcohol Use Standard Drinks/Week Comments Defer 0 (1 standard drink = 0.6 oz pur e alcohol) [facility] Utilities Answer Date Recorded In the [...] 11:00 AM EDT Office [place] [address] Joie Motley PA [facility] [place] [address] Scheduled Orders Name Type Priority Associated Diagnoses Orde r Schedule Creatinine Lab Routine Dissection of thoracoabdominal aortic aneurysm (TAAA) Expected: 07/30/2024, Expires: 01/29/2025 CT Angiogram Chest Abdomen Pelvis w Contrast Imaging Routine Dissection of thoracoabdominal aortic aneurysm (TAAA) Expected: 07/30/2024, Expires: 01/29/2025 documented as of this encounter Visit Diagnoses Diagnosis Dissection of thoracoabdominal aortic aneurysm (TAAA)- Primary documented in this encounter Care Teams Multiple Sclerosis Nurse Relationship Specialty Start Date End Date Fransico Remy MD [address] [place] [address] PCP - General Emergency Medicine 04/18/23 08/30/23 documented as of this encounter
--- OUTSIDE RECORDS SUMMARY | 2024-02-28 13:41 | XMS_ITS | Encounter Summary ---
Author Organization [facility] Address [facility] [place] [address] Care Team Providers Care Shoe Sticks Repairer Name Role Phone Fransico Remy MD Primary Care Provider [phone] Encounter Details Date Type Department Care Team (Late st Contact Info) Description 08/11/2023 7:00 PM EDT Ancillary Procedure Radiology Library at [facility] [place] [address] Tiarra Meredith MD [facility] [place] [address] Social History Tobacco Use Types Packs/Day Years Used Date Smoking Tobacco: Unknown Alcohol Use Standard Drinks/Week Comments Defer 0 (1 standard drink = 0.6 oz pur e alcohol) [facility] Utilities Answer Date Recorded In the past 12 months has e [employer], gas, oil, or water [employer] threatened to shut off services in your [...] place to sleep or slept in a fdc (including now)? No 04/20/2023 Sex and Gender Information Value Date Recorded Sex Assigned at Not on file Gender Identity Not on file Sexual Orientation Not on file documented as of this encounter Plan of Treatment Upcoming Encounters Date Type Department Care Team (Late st Contact Info) Description 04/16/2024 11:00 AM EDT [place] [address] Joie Moltey PA [facility] [place] [address] documented as of this encounter Procedures Procedure Name Priority Date/Time Associated Diagnosis Comments FILM LIBRARY STORAGE ONLY CT CHEST ABDOMEN PELVIS Routine 08/11/2023 6:55 PM EDT documented in this encounter Results * Film Library- Storage Only CT Chest Abdomen Pelvis (08/11/2023 6:55 PM EDT) Narrative [facility] - 08/11/2023 6:55 PM EDT This exam is auto-finalizing. It's purpose is for storage only. Tiarra Meredith MD IMG FILM LIBRARY ORD ERABLES [place], [place] documented in this encounter Visit Diagnoses Not on filedocumented in this encounter Care Teams Shoe Sticks Repairer Relationship Specialty Start Date End Date Fransico Remy MD [address] [place] [address] PCP - General Emergency Medicine 04/18/23 08/30/23 documented as of this encounter
--- OUTSIDE RECORDS SUMMARY | 2024-02-28 13:41 | XMS_ITS | Encounter Summary ---
Author Organization [facility] Address [facility] [place] [address] Care Team Providers Care Ui Architect Name Role Phone Fransico Remy MD Primary Care Provider [phone] Encounter Details Date Type Department Care Team (Latest Contact Info) Description 07/30/2023 Travel Social History Tobacco Use Types Packs/Day Years Used Date Smoking Tobacco: Unknown Alcohol Use Standard Drinks/Week Comments Defer 0 (1 standard drink = 0.6 oz pur e alcohol) [facility] Utilities Answer Date Recorded In the past [...] 11:00 AM EDT Office [place] [address] Joie Motley PA [facility] [address] [address] documented as of this encounter Visit Diagnoses Not on filedocumented in this encounter Care Teams Ui Architect Relationship Specialty Start Date End Date Fransico Remy MD [address] [place] [address] PCP - General Emergency Medicine 04/18/23 08/30/23 documented as of this encounter
--- OUTSIDE RECORDS SUMMARY | 2024-02-28 13:41 | XMS_ITS | Encounter Summary ---
Author Organization [facility] Address [facility] [place] [address] Care Team Providers Care Web Solutions Architect Name Role Phone Fransico Remy MD Primary Care Provider [phone] Encounter Details Date Type Department Care Team (Late st Contact Info) Description 07/06/2023 Telephone [place] [phone] Gail Singh MD [facility] [place] [address] Social History Tobacco Use Types Packs/Day Years Used Date Smoking Tobacco: Unknown Alcohol Use Standard Drinks/Week Comments Defer 0 (1 standard drink = 0.6 oz pur e alcohol) [facility] Utilities Answer Date Recorded In the past 12 months has e [employer], gas, oil, or water [employer] threatened to shut off services in your [...] and asked that we fax note to [phone] Faxed * Telephone Encounter - Michelle Rabago [...] eye provider. 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 Suggested they reach out to [facility] to establish care and we would keep appt with BBS for 07/12 in case they wanted him seen here and/or if they cannot see soon. /pt will call and advise if they want notes faxed to office once they have made an appt. documented in this encounter Plan of Treatment Upcoming Encounters Date Type Department Care Team (Anh Contact Info) Description 04/16/2024 11:00 AM EDT Office [place] [address] oJie Motley PA [facility] [address] [place] [address] documented as of this encounter Visit Diagnoses Not on filedocumented in this encounter Care Teams Web Solutions Architect Relationship Specialty Start Date End Date Fransico Remy MD [address] [place] [address] PCP - General Emergency Medicine 04/18/23 08/30/23 documented as of this encounter
--- OUTSIDE RECORDS SUMMARY | 2024-02-28 13:41 | XMS_ITS | Encounter Summary ---
Author Organization [facility] Address [facility] [place] [address] Care Team Providers Care Continuous Improvement Coach Name Role Phone Fransico Remy MD Primary Care Provider [phone] Encounter Details Date Type Department Care Team (Late st Contact Info) Description 07/27/2023 9:25 AM EDT Ancillary Procedure Radiology Library at [facility] [address] Rick Shaw MD [facility] [place] [address] Social History Tobacco Use Types Packs/Day Years Used Date Smoking Tobacco: Unknown Alcohol Use Standard Drinks/Week Comments Defer 0 (1 standard drink = 0.6 oz pur e alcohol) [facility] Utilities Answer Date Recorded In the past 12 months has e [employer], gas, oil, or water [employer] threatened to shut off services in your [...] place to sleep or slept in a nursing home (including now)? No 04/20/2023 Sex and Gender Information Value Date Recorded Sex Assigned at Not on file Gender Identity Not on file Sexual Orientation Not on file documented as of this encounter Plan of Treatment Upcoming Encounters Date Type Department Care Team (Late st Contact Info) Description 04/16/2024 11:00 AM EDT [place] [address] Joie Motley PA [facility] [address] [place] [address] documented as of this encounter Procedures Procedure Name Priority Date/Time Associated Diagnosis Comments FILM LIBRARY STORAGE ONLY DX HIP Routine 07/27/2023 9:25 AM EDT documented in this encounter Results * Film Library- Storage Only DX Hip (07/27/2023 9:25 AM EDT) 09/20/2023 6:15 AM EDT Narrative [facility] 09/20/2023 6:15 AM EDT This exam is auto-finalizing. It's purpose is for storage only. Rick Shaw MD IMG FILM LIBRARY OR DERABLES [place], [place] documented in this encounter Visit Diagnoses Not on filedocumented in this encounter Care Teams Continuous Improvement Coach Relationship Specialty Start Date End Date Fransico Remy MD [address] [place] [address] PCP - General Emergency Medicine 04/18/23 08/30/23 documented as of this encounter
--- OUTSIDE RECORDS SUMMARY | 2024-02-28 13:41 | XMS_ITS | Encounter Summary ---
Author Organization [facility] Address [facility] [place] [address] Care Team Providers Care Manager Garage Name Role Phone Brien Phillips Primary Care Provider + Encounter Details Date Type Department Care Team (Late st Contact Info) Description 07/27/2023 Interpretation Only Radiology Library at [facility] [place] [address] Rick Shaw MD [facility] [place] [address] Social History Tobacco Use Types Packs/Day Years Used Date Smoking Tobacco: Unknown Alcohol Use Standard Drinks/Week Comments Defer 0 (1 standard drink = 0.6 oz pur e alcohol) [facility] Utilities Answer Date Recorded In the past 12 months has e [employer], gas, oil, or water [employer] threatened to shut off services in your [...] place to sleep or slept in a fci (including now)? No 04/20/2023 Sex and Gender Information Value Date Recorded Sex Assigned at Not on file Gender Identity Not on file Sexual Orientation Not on file documented as of this encounter Plan of Treatment Upcoming Encounters Date Type Department Care Team (Late st Contact Info) Description 04/16/2024 11:00 AM EDT [place] [address] Joie Motley PA [facility] [place] [address] documented as of this encounter Procedures Procedure Name Priority Date/Time Associated Diagnosis Comments FILM LIBRARY STORAGE ONLY DX HIP Routine 07/27/2023 9:25 AM EDT documented in this encounter Results * Film Library- Storage Only DX Hip (07/27/2023 9:25 AM EDT) 09/20/2023 6:15 AM EDT Narrative [facility] 09/20/2023 6:15 AM EDT This exam is auto-finalizing. It's purpose is for storage only. Rick Shaw MD IMG FILM LIBRARY OR DERABLES [place], [place] documented in this encounter Visit Diagnoses Not on filedocumented in this encounter Care Teams Manager Garage Relationship Specialty Start Date End Date Brien [place] [address] PCP - General Internal Medicine 08/31/23 documented as of this encounter
--- OUTSIDE RECORDS SUMMARY | 2024-02-28 13:45 | XMS_ITS | Encounter Summary ---
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 Name Role Phone Fransico Remy MD Primary Care Provider [phone] Reason for Referral * Diagnostic Test (Routine) - Closed Specialty Diagnoses / Procedures Referred By Dannie lozano Referred To Contact Radiology Diagnoses Dissection of aorta, unspecified portion of aorta Procedures CT Angiogram Chest Abdomen Pelvis w Contrast Narayan Alvarez MD [facility] [place] [address] [facility] [place] [address] Referral ID Status Reason Start Date Expiration Date V isits Requested Visits Authorized [id number] Closed Specialty Service Requested 04/25/2023 10/25/2024 1 1 Reason for Visit * Auth/Cert (Routine) Specialty Diagnoses / Procedures Referred By Dannie lozano Referred To Contact Diagnoses ICH (intracerebral hemorrhage) ICH Tana Smith MD [facility] [place] [address] [facility] Referral ID Status Reason Start Date Expiration Date Visits Re quested Visits Authorized [id number] 1 1 Encounter Details Date Type Department Care Team (Late st Contact Info) Description 04/18/2023 6:34 AM EDT - 06/02/2023 12:47 PM EDT Hospital Encounter Neuro Special Care Unit Level 3 [place] [address] Tana Smith MD [facility] [place] [address] Georges Jacob MD [facility] [place] [address] Edis Skaggs MD [facility] [address] Crystal Mckenna MD [facility] [place] [address] Andi Abbott MD [facility] [place] [address] Nontraumatic intracerebral hemorrhage of cerebellum, unspecified laterality; 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; Dissection of aorta, unspecified portion of aorta; Deep vein thrombosis (DVT) of brachial vein of right upper extremity, unspecified chronicity; Agitation; Hyperkalemia; Cardiorenal syndrome with renal failure; SVT (supraventricular tachycardia) Discharge Disposition: Rehab Center in a Facility Social History Tobacco Use Types Packs/Day Years Used Date Smoking Tobacco: Unknown Tobacco Cessation:Counseling Given: Not Answered Alcohol Use Standard Drinks/Week Comments Defer 0 (1 standard drink = 0.6 oz pur e alcohol) [facility] Utilities Answer Date Recorded In the past 12 months has e [employer], gas, oil, or water [employer] threatened to shut off services in your [...] Sign Reading Time Taken Comments Blood Pressure 114/74 06/02/2023 9:18 AM EDT Pulse 91 06/02/2023 7:48 AM EDT Temperature 36.6 ??C (97.9 ??F) 06/02/2023 7:48 AM ED T Respiratory Rate 18 06/02/2023 7:48 AM EDT Oxygen Saturation 95% 06/02/2023 7:48 AM EDT Inhaled Oxygen Concentration - - Weight 106.8 kg (235 lb 7.2 oz) 06/02/2023 5:53 AM EDT Height 174 cm (5' 8.5) 04/18/2023 12:0 0 PM EDT Body Mass Index 35.28 04/18/2023 12:00 PM EDT documented in this encounter Discharge Summaries * Agustina Garg MD - 06/02/2023 10:23 AM EDT Images from the original note were not included. Discharge Summary Patient Name: Myla Acosta Patient Age: 67 y.o. Language: Telugu Admit date: 04/18/2023 Discharge date and time: 06/01/2409:20 AM Attending Physician: Andi Abbott MD Discharge Physician: Andi Abbott MD Follow-up Recommendations for Providers: - Patient discharged on multidrug hypertensive regimen for blood pressure control in the setting ofhemorrhagic stroke as well as extensive Type B dissection for SBP goal of less than 160. Chlorthalidone 25mg Amlodipine 10mg Lisinopril 40mg Terazosin 1mg BID Tamsulosin 0.4mg daily - Bun and creatinine continued to fluctuate throughout hospital stay most likely in the setting of pre-renal OVI. Please continue to encourage adequate fluid intake with goal of euvolemia. -Follow up with Ophthalmology in 2-3 months with Director Of Teacher Education at -Patient being discharged with Rebolledo catheter in place as he has continued to retain urine on multiple voiding trials. Current rebolledo was placed at 05/30, recommend repeat voiding trial or replacement of rebolledo in 7 days approximately on 06/06.He was also started onTamsulosin 0.4mg which may assist in successful voiding trial on next attempt. -Vascular surgery to arrange 3 month follow up with interval CTA. (~ 07/26/23). -Follow up with Neurology requested day of discharge Modifiable Risk Factors in Secondary Stroke Prevention Risk Factor Treatment Goals Hypertension Neurologically stable patients with cerebrovascular disease benefit from a BP goal of <130/80 mm?Hg Dyslipidemia Atherosclerotic stroke or TIA: low-density lipoprotein (LDL) cholesterol level <70 mg/dl or 50% reduction in LDL cholesterol level from baseline Nonatherosclerotic stroke or TIA: per National Cholesterol Education Program (NCEP) Adult TreatmentPanel III (ATP-III) goals Diabetes Mellitus HgA1c level <7% Cigarette Smoking Complete cessation Alcohol Consumption Men: two or fewer drinks per day Non woman: one or fewer drinks per day Physical Activity At least 30 minutes of moderate intensity physical exercise 1- 3 times per week Diet Low-fat, low-sodium, and Mediterranean or Dietary Approaches to Stop Hypertension diets (diabetic diet when applicable) Obesity Goal body mass index of 18.5-25 kg/m2 Inpatient Provider Contact Information: For questions regarding this document or issues related to this hospitalization on the Neurology Service, please contact . Discharge Diagnoses: Intracerebral hemorrhage Active Hospital Problems Diagnosis ICH (intracerebral hemorrhage) Past medical History: No past medical history on file. Active Non Hospital Problems: There are no active non-hospital problems to display for this patient. History of Presentation: HPI: Myla 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 He is s/p EVD placement on 04/17 and removal on 05/01. 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 He is surrounded by family including his . He is sleepy but arouses quickly to voice. He is joking with family at times but also drifts off to sleep. He appears slightly agitated when awakened but again closes his eyesand quickly falls back asleep. He is moving all extremities. Can not assess him for mental status as he is not responding to my questioning and due to current agitation when awakened, will defer mental status exam to a later time. 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 R frontal EVD placed by NSGY 04/17. HCT and CTA were performedwhich confirmed stability of the bleed and no vascular malformations suggesting that this was a primarily HTN bleed. A posterior medial LEFT parietal lobe infarct was noted on CTH and then verified via MRI. This was thought to be provoked by 3rd ventricle hydrocephalus compressing the VALUE STREAM COACH which resulted in the infarct. EVD removed 05/01. 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 A follow up CTA chest and abdomen further delineated a Hay type B dissection extending from the LEFT subclavian artery to the bilateral external iliac arteries. Tight BP < 120 mm Hg and HR control (< 60 bpm) was initiated pharmacologically and Vascular Surgery was consulted, relaxed to SBP < 140 on 05/09. In addition to pulse pressure control ASA was recommended once safe. There is no surgical intervention unless signs and symptoms of active bleeding are noted. ASA started post EVD removal. Repeat imaging per vascular surgery in 3 months (~ 07/26/23). Unfortunately, on 05/13, pt started to have episodes of profound bradycardia that did evolve at timesinto asystole (~12-14 seconds) with spontaneous resolution. Diltiazem and carvedilol were d/c'd perVascular Medicine. In conversation with at bedside, she has requested to speak with Palliative; family meeting now scheduled for 05/15 at 1:30pm. Pt is also now DNR/DNI. After share decision making meeting with family due to difficulty meeting blood pressure and heart rate goals, elected to repeat imagining which showed stable dissection . Due to this, liberalized blood pressure goals to less than 160mgHG in attempts to get patient off continuous IV infusions to allow his ICU delirium improve to better assess likely rehabilitation potential. # Acute hypoxic respiratory failure # Fluid overload Patient was tolerating minimal ventilatory settings and initially extubated on 04/18. Required diuresis post-extubation given volume status. Night of 04/18, Myla had a hypoxic event as well as c/f Fab was re-intubated. Neurological exam was stable pre- and post-intubation. Given his likely bulbar dysfunction, highest suspicion was for a mucous plugging event which was also noted on CXR. He underwent a diagnostic/therapeutic bronch on 04/19 which showed thick copious secretions mainly in the DAVID and L lingula which was sent for cultures after a BAL was performed. Initial gram stain was negative. BAL with normal upper respiratory pascual. On 04/29, sputum culture was sent as part of fever workup with GPCs/GNRs, decision made given clinical scenario to continue zosyn x 7 days. Pt continued toimprove with decreased support required from vent, and was extubated on 05/04 to 3L NC. He has intermittently tolerated CPAP at night. # Dysphagia TREASURY CONSULTANT following for speech assessment. Pt tolerating Tfs via NGT and modified sips and chips diet when mental status appropriate. Modified Barium Swallow pending clinical stability. # OVI, likely d/t [place], resolved Intermittent Cr elevations # Hyperactive Agitated Delirium # Alcohol Abuse Pt completed phenobarbital taper early on in hospital course. Agitation currently well managed withseroquel, with dosing limitations per QTC. Admission NIH Stroke Scale: NIH Stroke Scale Date 04/18/23 NIH Stroke Scale Time 1050 Level of Consciousness 1 LOC Questions 2 LOC Commands 0 Best Gaze 1 Vision 0 Facial Palsy 0 Motor Arm, Left 0 Motor Arm, Right 0 Motor Leg, Left 0 Motor Leg, Right 0 Limb Ataxia (UT) Sensory (UT) Best Language 3 (intubated) Dysarthria 0 Extinction and Inattention: 0 (UT) NIH Total Score 4 Hospital Course: Myla 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 male who was admitted to the neurology service for further evaluationof cerebellar IPH with ANIL. He is s/p EVD placement on 04/17 and removal on 05/01. # RIGHT Cerebellar IPH with VE Neurological examination on admission was limited as patient was intubated, was withdrawing LUE, LLE, RLE to pain and localizing on the RUE. Patient was monitored with frequent checks of vitals and neurological status. Telemetry monitoring showed NSR. SBP goal was initially set as <140 though remained difficult to maintain. MRI demonstrated recent infarct in posterior medial left parietal as well as right cerebellar intraparenchymal hemorrhage with ANIL. Vascular imaging showed no evidence ofaneurysm or vascular malformation. TTE revealed EF of 74%, moderate increase in LV wall thickness as well as aortic root dilation as well as dilation of ascending aorta. See detailed reports as below. Most likely etiology of stroke was uncontrolled hypertension. #Type B descending aortic dissection As part of the posterior medial LEFT parietal lobe infarct work up a CTA Head and neck was obtainedwhich had an incidental finding which was concerning for descending thoracic aortic dissection. A follow up CTA chest and abdomen further delineated a Hay type B dissection extending from the LEFT subclavian artery to the bilateral external iliac arteries. Tight BP < 120 mm Hg and HR control (< 60 bpm) was initiated pharmacologically and Vascular Surgery was consulted, relaxed to SBP < 140 on 05/09 and further increased to <160 in the following days. In addition to pulse pressurecontrol ASA was recommended once safe. There is no surgical intervention unless signs and symptoms of active bleeding are noted. ASA started post EVD removal. Repeat imaging per vascular surgery in 3months (~ 07/26/23). #Poorly controlled hypertension Patient was found to have symptomatic pauses on carvedilol and Cardiology advised NOT to start betablocker in the future. Patient was on Hydralazine 200mg TID and experienced rebound tachycardia andwe have been slowly been decreasing dose with the goal of complete discontinuation. He was started on amlodipine 10mg and then chlorthalidone 25mg was added per Cardiology recommendation and could increase to 50mg as needed. If patient was to continue to have elevated blood pressures after Chlorthalidone at 50mg, could restart Spironolactone again. # Acute hypoxic respiratory failure # Fluid overload Patient was tolerating minimal ventilatory settings and initially extubated on 04/18. Required diuresis post-extubation given volume status. Night of 04/18, Myla had a hypoxic event as well as c/f Fab was re-intubated. Neurological exam was stable pre- and post-intubation. Given his likely bulbar dysfunction, highest suspicion was for a mucous plugging event which was also noted on CXR. He underwent a diagnostic/therapeutic bronch on 04/19 which showed thick copious secretions mainly in the DAVID and L lingula which was sent for cultures after a BAL was performed. Initial gram stain was negative. BAL with normal upper respiratory pascual. On 04/29, sputum culture was sent as part of fever workup with GPCs/GNRs, decision made given clinical scenario to continue zosyn x 7 days. Pt continued toimprove with decreased support required from vent, and was extubated on 05/04 to 3L NC. He has intermittently tolerated CPAP at night. He was subsequently downgraded to Vascular neurology service. Oneday after downgrade, he developed worsening respiratory status requiring high flow oxygen. After sev eral hours he was placed back on nasal cannula and back to room air. 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 Such an intermittent exodeviation at near (not at distance) may be seen with brain injuries. Recovery dependent on any rebound of brain injury. Otherwise, no gross limitations in EOM's and excellent vision (20/20 OD, 20/25 OS). Ophthalmology recommend continuing monocular patching as needed if subjectively helping. Magnitude of current deviation is too large for prism in glasses and may change. Discussed that diplopia may improve somewhat over the following weeks to months. If so, prism in glasses may be helpful. Patient was evaluated by rehabilitation services and deemed appropriate for acute rehab. Operations & Procedures: EVD placement EVD placed on 04/17 and removed 05/01 Consultations: 1. PT/OT/SL 2. Nephrology 3. Pastoral Care 4. Wound Care 5. Ophthalmology 6. Cardiology 7. Palliative Care 8. Neurosurgery 9. Vascular Surgery Diagnostic Tests & Neuroimaging: Study Results ECG Component Ref Range & Units 12 d ago 13 d ago Ventricular rate BPM 76 72 Atrial Rate BPM 76 72 P-R Interval ms 204 214 QRS Duration ms 166 166 Q-T Interval ms 422 466 QTC Calculated (Bezet) ms 474 510 Calculated P [place] degrees 33 39 Calculated R [place] degrees -25 -37 Calculated T [place] degrees 19 35 INTERPRETATION Normal sinus rhythm Right bundle branch block Abnormal ECG When compared with ECG of 19-MAY-2023 05:28, Normal ECG Confirmed by MD LAN, MARICARMEN ([id number]) on 05/21/2023 12:45:05 PM Sinus rhythm with 1st degree A-V block Left axis deviation Right bundle branch block Septal infarct , age undetermined Abnormal ECG When compared with ECG of 18-MAY-2023 10:20, (unconfirmed) Septal infarct is now Present Confirmed by MD Boo, Dakota ([id number]) on 05/22/2023 1:31:39 PM CXR XR Chest One View Result Date: 05/20/2023 1. Ill-defined left retrocardiac opacity could represent atelectasis, aspiration, or developing infection. 2. Pulmonary vascular congestion with an enlarged cardiac silhouette. Thank you for letting us participate in the care of this patient. If you are a health care provider and have any questionsregarding this report, please contact the number below. For patients who have questions please contact the health manager managed care that requested your imaging first. Electronically signed by: Aileen Ireland MD, [facility] ([phone]), at 05/20/2023 5:43 PM XR Chest One View Result Date: 05/04/2023 Persistently low lung volumes. Continued left lower lobe consolidation consistent with atelectasis.Superimposed infection or inflammation is not excluded. I have personally reviewed the image(s) andthe resident's interpretation and agree with the findings, Meet Anton MD at 05/04/2023 1:54 PM Thank you for letting us participate in the care of this patient. If you are a health care provider andhave any questions regarding this report, please contact the number below. For patients who have questions please contact the health manager managed care that requested your imaging first. Head CT Head wo Contrast (Generic) Result Date: 05/20/2023 1. Interval removal of ventricular catheter. Reduced hyperattenuating blood products layering in the occipital horns No change in ventricular caliber. 2. Evolution of recent right anterior cerebellarhemorrhage without evidence for new bleeding at this location. I have personally reviewed the image(s) and the resident's interpretation and agree with the findings, Michelle Munoz at 05/20/2023 10:31 AM Thank you for letting us participate in the care of this patient. If you are a health care provider and have any questions regarding this report, please contact the number below. For patients who have questions please contact the health manager managed care that requested your imaging first. Head and Neck No results found. MRI BRAIN No results found. CTA Carotids/[place] of [place] No results found. TTE Interpretation Summary Moderate increased LV wall thickness (1.5 cm, mostly concentric) with hyperdynamic systolic function. The LVEF is estimated at 74% using a Hester's biplane. There are no regional wall motion abnormalities. Normal biatrial size. No significant valvular abnormalities. The aortic root is dilated (4.1 cm). The ascending aorta is dilated (4.8 cm). Other details as below. As compared to the prior echo report from 04/19/2023, there is no significant change (prior report estimated the aortic root at 4.2 cm and ascending aorta at 4.5 cm which likely represents minor differences in measurement methods - consider further evaluation with a CT or MRI if clinically indicated). Procedure Limited - 38721. Color Doppler - 61201. Doppler - 76012. Image enhancement Optison was used for both Doppler and ventricular definition. Suboptimal quality. There is sinus tachycardia. Left Ventricle Left ventricle is of normal size. Wall thickness is moderately increased. Left ventricular systolic function is normal. The left ventricular ejection fraction is 74% by Hester's biplane. There are no segmental wall motion abnormalities. Right Ventricle The right ventricle is not well visualized. The right ventricle is probably normal in size. Right ventricular function is probably normal. Left Atrium The left atrium is normal. The interatrial septum is not well visualized. Right Atrium The right atrium is normal. Aortic Valve The aortic valve is not well visualized. The aortic valve is probably trileaflet. The aortic valve is mildly thickened. There is no aortic stenosis. There is no aortic regurgitation. Mitral Valve The mitral valve leaflets are thickened. There is no mitral stenosis. There is trace mitral regurgitation. Tricuspid Valve The tricuspid valve is not well visualized. There is no tricuspid stenosis. The severity of tricuspid regurgitation cannot be determined from the available data. Pulmonic Valve The pulmonic valve appears to be structurally and functionally normal. There is no pulmonic valve regurgitation. Great Arteries The aortic root is dilated. The diameter at the level of the sinuses of Valsalva is 4.1 cm. The ascending aorta is dilated. The maximum diameter of the proximal ascending aorta is 4.8 cm. The main pulmonary artery is not well visualized. Venous Inferior vena cava is not well visualized. Pericardium/Pleural There is no pericardial effusion. Labs: Lipid Panel Lab Results Component Value Date CHLPL 220 04/19/2023 HDL 86 04/19/2023 CHOLHDL 2.6 04/19/2023 TRIG 194 05/07/2023 LDLDIRECT 129 04/19/2023 Lab Results Component Value Date HA1C 6.0 (H) 04/19/2023 Last 3 wbc, hgb, hct plt Recent Labs 06/02/23 0100 06/01/23 0107 05/31/23 0133 WBC 5.9 5.9 5.3 HGB 10.2* 10.2* 9.5* HCT 30.7* 31.2* 29.0* PLATELET 227 221 222 Last 3 Lytes Recent Labs 06/02/23 0059 06/01/23 0106 05/31/23 0133 NA 139 134* 137 K 4.0 4.0 3.7 CL 105 102 104 CO2 21* 20* 21* BUN 36* 36* 34* CREATININE 1.94* 2.02* 1.79* Last 3 LFTs Recent Labs 05/21/23 1027 04/28/23 0120 04/23/23 0024 04/19/23 0035 AST 17 26 28 22 ALT 30 38 26 19 ALKPHOS 94 61 64 66 BILITOT 0.4 0.5 0.4 0.3 BILIDIR -- 0.3 0.2 0.1 Last Ca, Mg, Phos Recent Labs 06/02/23 0059 CALCIUM 9.8 PHOS 3.5 MAGNESIUM 0.79 Last 3 Coags No results for input(s): PT, INR, PTT in the last 168 hours. Last 3 ProBNP, Trop, CK No results for input(s): CK, TROPONINT, PROBNP in the last 168 hours. Last 3 TFT Recent Labs 04/19/23 0035 TSH 0.74 Last 3 Lipids Recent Labs 05/07/23 0110 05/06/23 1050 05/06/23 0030 04/20/23 0110 04/19/23 0035 CHLPL -- -- -- -- 220 HDL -- -- -- -- 86 LDLDIRECT -- -- -- -- 129 TRIG 194 292 1,032 < > 78 < > = values in this interval not displayed. Last 3 HgbA1C Recent Labs 04/19/23 0035 HA1C 6.0* Last CRP, SEDRATENo results for input(s): CRP, SEDRATE in the last 7068 hours. Pending Studies and Lab Data: No current labs PT Eval: AM-PAC Mobility 6 Click Completed?: Yes Turning from your back to your side while in a flat bed w/o using handrails?: 3 - A Little Standing up from a chair using your arms (e.g. wheelchair, or bedside commode)?: 3 - A Little Moving from lying on your back to sitting on the side of a flat bed w/o using bedrails?: 3 - A Little Moving to and from a bed to a chair (including a wheelchair): 3 - A Little To walk in hospital room?: 3 - A Little Climbing 3-5 steps with a railing?*: 1 - Total Anticipated Discharge Disposition (PT): acute rehabilitation facility OT Eval: How much help from another person does the patient currently need putting on and taking off regularlower body clothing?: 2 - A Lot How much help from another person does the patient currently need with bathing (including washing, rinsing, drying)?: 2 - A Lot How much help from another person does the patient currently need with toileting, which includes using toilet, bedpan or urinal?: 2 - A Lot How much help from another person does the patient currently need putting on and taking off regularupper body clothing?: 2 - A Lot How much help from another person does the patient currently need taking care of personal grooming such as brushing teeth?: 2 - A Lot How much help from another person does the patient currently need eathing meals?: 3 - A Little Anticipated Discharge Disposition (OT): acute rehabilitation facility TREASURY CONSULTANT: Diagnosis: Oral and suspected pharyngeal dysphagia 2/2 post-stroke weakness, generalized deconditioning, and altered mental status (improving) Recommendations: Diet: Regular solids, thin liquids PO Medications: whole with liquid Aspiration Precautions: Sit upright for all PO intake Reduce environmental distractions Slow rate; small bites and sips Patient will require feeding assistance and/or cues at mealtimes Excellent oral care to reduce risk of aspiration pneumonia Delirium Precautions: Orientation: Provide visual and hearing aids Utilize cues such as calendars and clocks Encourage communication and reorient patient repeatedly Have familiar objects from patient's home in room Attempt consistency in nursing staff Allow television during the day with daily news Environment: Sleep hygiene (dim light at nighttime, bright during the day) Limit excess noise (staff, equipment, visitors at night) Ambulate or mobilize patient early and often Vital Signs at Discharge: BP: 114/74, Heart Rate: 91, Temp: 36.6 ??C (97.9 ??F), Resp: 18, Height: 174 cm (5' 8.5) (04/18/23 1200) Weight: 106.8 kg (235 lb 7.2 oz) (06/02/23 0553) Physical Exam at Discharge: Gen: Patient of apparent stated age, awake, alert, NAD Neuro Exam: MS: Awake, alert, up in chair. Oriented to person, not place or time. Able to follow simple commands stick out your tongue, show me your thumb. Able to follow cross body command right thumb to left ear. CN: PERRL, no eye patch on today, glasses on No apparent facial asymmetry Hearing intact to voice Motor: RUE/RLE: 5/5 LUE: 4/5 able to sustain antigravity for 10 seconds LLE: 4/5: able to sustain against gravity Sensation: equal sensation in extremities Cerebellum: FTN with dysmetria bilaterally. HTS intact on BLE Discharge NIH Stroke Scale NIH Stroke Scale Date 06/02/23 NIH Stroke Scale Time 0830 Level of Consciousness 0 LOC Questions 2 LOC Commands 0 Best Gaze 0 Vision 0 Facial Palsy 0 Motor Arm, Left 0 Motor Arm, Right 0 Motor Leg, Left 0 Motor Leg, Right 0 Limb Ataxia 2 (may be confounded by vision) Sensory 0 Best Language 0 Dysarthria 0 Extinction and Inattention: 0 NIH Total Score 4 Discharge to: Rehab Updated Allergies/ADRs: No Known Allergies Immunizations Given this Hospitalization: There is no immunization history on file for this patient. Discharge Medications: Your Medications New Medications Dose Details acetaminophen 325 mg tablet Commonly known as: Tylenol Take 3 tablets by mouth every 6 hours as needed for Pain or Fever. 975 mg Refills: 0 amLODIPine 10 mg tablet Commonly known as: Norvasc Take 1 tablet by mouth daily. 10 mg Refills: 0 aspirin 81 mg chewable tablet Take 81 mg by mouth daily. 81 mg Refills: 0 * bisacodyL 10 mg Suppository Commonly known as: Dulcolax Place 1 suppository rectally daily as needed. 10 mg Refills: 0 * bisacodyl EC 5 mg Tablet, Delayed Release (E.C.) Commonly known as: Dulcolax Take 2 tablets by mouth 2 times daily as needed for Constipation. 10 mg Refills: 0 camphor-methyl salicyl-menthoL Cream Commonly known as: Bengay Ultra Strength Apply topically 2 times daily as needed (hip pain). Refills: 0 carboxymethylcellulose 0.5 % Dropperette Commonly known as: Refresh Plus Place 1 drop into both eyes 3 times daily as needed. 1 drop Refills: 0 chlorthalidone 25 mg tablet Commonly known as: Hygroton Take 1 tablet by mouth nightly. 25 mg Refills: 0 cloNIDine 0.2 mg tablet Commonly known as: Catapres Take 1 tablet by mouth 3 times daily. 0.2 mg Refills: 0 enoxaparin 40 mg/0.4 mL Syringe Commonly known as: Lovenox Inject 0.4 mLs subcutaneously nightly. 40 mg Refills: 0 ergocalciferoL (vitamin D2) 200 mcg/mL (8,000 unit/mL) Drops Commonly known as: vitamin D2 Take 6.25 mLs by mouth once a week. Start taking on: June 05, 2023 50,000 Units Refills: 0 FLUoxetine 20 mg capsule Commonly known as: PROzac Take 1 capsule by mouth daily. 20 mg Refills: 0 ipratropium-albuteroL 0.5 mg-3 mg(2.5 mg base)/3 mL Solution for Nebulization Commonly known as: Duoneb Take 0.5 mg by nebulization every 4 hours as needed. 3 mL Refills: 0 lactulose 20 gram/30 mL Solution Commonly known as: Chronulac Take 30 mLs by mouth daily as needed. 20 g Refills: 0 lisinopriL 40 mg tablet Commonly known as: Zestril Take 1 tablet by mouth daily. 40 mg Refills: 0 polyethylene glycoL 17 gram oral powder packet Commonly known as: Miralax Take 17 g by mouth daily. 17 g Refills: 0 QUEtiapine 25 mg tablet Commonly known as: SEROquel Take 3 tablets by mouth nightly. 75 mg Refills: 0 senna-docusate 8.6-50 mg Tablet Commonly known as: Pericolace Take 2 tablets by mouth 2 times daily as needed for Constipation. 2 tablet Refills: 0 simethicone 40 mg/0.6 mL Drops, Suspension Commonly known as: Mylicon Take 0.6 mLs by mouth every 6 hours as needed. 40 mg Refills: 0 sodium chloride 3 % Solution for Nebulization Commonly known as: NebuSal Take 4 mLs by nebulization every 4 hours as needed for Cough. 4 mL Refills: 0 tamsulosin 0.4 mg capsule Commonly known as: Flomax Take 1 capsule by mouth daily. 0.4 mg Refills: 0 terazosin 1 mg capsule Commonly known as: Hytrin Take 1 capsule by mouth 2 times daily. 1 mg Refills: 0 * This list has 2 medication(s) that are the same as other medications prescribed for you. Read thedirections carefully, and ask your doctor or other care provider to review them with you. SECONDARY STROKE PREVENTION: Preventative measure Antithrombotic Therapy Administered within 2 days of admission?: No Reason for not administering Antithrombotic Therapy by end of Day 2:: Patient is high-risk for bleeding Was antithrombotic therapy prescribed at discharge?: Yes Anticoagulation Therapy Prescribed at Discharge?: No Reason not given (anticoagulant):: Therapy not indicated Was statin medication prescribed at discharge?: No Was Guideline Recommended Statin Dose Prescribed at Discharge?: No Has patient had a cigarette within the last 365 days?: Yes Education: Patient/caregiver received written stroke discharge instructions/information?Yes The patient/caregiver accepted education on stroke warning signs and symptoms, personal modifiable stroke risk factors, activation of emergency medical systems for stroke, medications prescribed at discharge for stroke, and education on stroke follow-up. Modified [place] Score (MRS) on discharge Score Description 0 No symptoms at all 1 No significant disability despite symptoms; able to carry out all usual duties and activities 2 Slight disability; unable to carry out all previous activities, but able to look after own affairs without assistance 3 Moderate disability; requiring some help, but able to walk without assistance 4 Moderately severe disability; unable to walk without assistance 5 Severe disability; bedridden, incontinent and requiring constant nursing care and attention 6 Total Score: 4 Instructions Given to Patient at Discharge: There are no outpatient Patient Instructions on file for this admission. General Instructions None Future Appointments and Orders Future Appointments and Orders Future Appointments Provider Department Dept Phone 10/11/2023 8:00 AM Edna Byrd APRN Neurology at [facility] Arrive at: Director Of Cloud Services Area [phone] Future Orders Complete By Expires CT Angiogram Chest Abdomen Pelvis w Contrast [[id number] Custom] 07/26/2023 01/25/2024 Process Instructions: Scheduling Instructions: Questions: Creatinine to be performed prior to the study?: Hydration prep required?: Contrast allergy prep required?: Where will study be performed?: [facility] Radiology Primary Care Provider: Fransico Remy MD [address] [facility] [id number] Discharge References/Attachments None documented in this encounter Medications at Time of Discharge [...] 06/02/2023 10/25/2023 documented as of this encounter Progress Notes * Fransico Marie RN - 06/02/2023 12:46 PM EDT Myla Sinhabasilialupe discharged to [facility] via ambulance. All belongings sent with patient. JONATHAN removed, skin free from pressure ulcers. Report called to [facility] @ . Patient instructed to call with concerns. * Tiarra Vasquez TREASURY CONSULTANT - 06/02/2023 10:48 AM EDT Speech Pathology Contact Note Chart reviewed. Patient is currently preparing for discharge to rehab. Spoke with patient, his , and RN who all reported good tolerance of a regular diet. Overall, dysphagia symptoms appear to have resolved with improvements in mental status. No further TREASURY CONSULTANT services are indicated at this level of care. If willing to participate, patient would benefit from a course of TREASURY CONSULTANT services at the discharge location targeting cognition. Otherwise, we will sign off. Thanks for the opportunity to contribute to Myla' care. Tiarra Vasquez MS, [facility]-TREASURY CONSULTANT Speech-Language Pathologist Inpatient Rehabilitation Pager # [phone] * Agustina Garg MD - 06/02/2023 7:44 AM EDT Images from the original note were not included. Neurology Progress Note Patient name: Myla Acosta Date of : 1955 PCP: Fransico Remy MD CC: R cerebellar IPH with VE HPI: Myla 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 He is s/p EVD placement on 04/17 and removal on 05/01. 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 24 hour / interval Hx: - NAOE, BP significantly improved to BP: (104-142)/(63-82) - Bun and Creatinine slightly improved this morning. Will continue to encourage oral intake. - Last Bowel Movement: 05/30/23 - Current hypertension regimen: Chlorthalidone 25mg Hydralazine 50mg TID Amlodipine 10mg Lisinopril 40mg Terazosin 1mg BID Tamsulosin 0.4mg daily Current Medications: Scheduled Meds: hydrALAZINE 50 mg Oral TID QUEtiapine 75 mg Oral Nightly bisacodyL 10 mg Rectal Daily chlorthalidone 25 mg Oral Nightly cefTRIAXone 1 g Intravenous Q24H amLODIPine 10 mg Oral Daily tamsulosin 0.4 mg Oral Daily thiamine 100 mg Intravenous Daily lisinopriL 40 mg Oral Daily cloNIDine 0.2 mg Oral TID enoxaparin 40 mg Subcutaneous Nightly polyethylene glycoL (MIRALAX) oral powder 17 g Oral Daily senna-docusate 1 tablet Oral BID aspirin 300 mg Rectal Daily Or aspirin 81 mg Oral Daily FLUoxetine 20 mg Oral Daily terazosin 1 mg Oral BID ergocalciferoL (vitamin D2) 50,000 Units Oral Weekly Physical Exam: Vitals: Temp: [36.5 ??C (97.7 ??F)-36.7 ??C (98.1 ??F)] Heart Rate: [84-107] Resp: [16-25] BP: (104-142)/(63-82) SpO2: [92 %-96 %] Heart Rate from SpO2: [84 bpm-107 bpm] Gen: Patient of apparent stated age, awake, alert, NAD Neuro Exam: MS: Awake, alert, up in chair, garbled speech. Able to follow simple commands stick out your tongue, show me your thumb. Able to follow cross body command right thumb to left ear. CN: PERRL, no eye patch on today, glasses on No apparent facial asymmetry Hearing intact to voice Motor: RUE/RLE: 5/5 LUE: 4/5 able to sustain antigravity for 10 seconds LLE: 4/5: able to sustain against gravity Sensation: decreased sensation in LEFT hemibody Cerebellum: FTN intact on RUE. HTS intact on RLE. Labs: Last 3 wbc, hgb, hct plt Recent Labs 06/02/23 0100 06/01/23 0107 05/31/23 0133 WBC 5.9 5.9 5.3 HGB 10.2* 10.2* 9.5* HCT 30.7* 31.2* 29.0* PLATELET 227 221 222 Last 3 Lytes Recent Labs 06/02/23 0059 06/01/23 0106 05/31/23 0133 NA 139 134* 137 K 4.0 4.0 3.7 CL 105 102 104 CO2 21* 20* 21* BUN 36* 36* 34* CREATININE 1.94* 2.02* 1.79* Last 3 LFTs Recent Labs 05/21/23 1027 04/28/23 0120 04/23/23 0024 04/19/23 0035 AST 17 26 28 22 ALT 30 38 26 19 ALKPHOS 94 61 64 66 BILITOT 0.4 0.5 0.4 0.3 BILIDIR -- 0.3 0.2 0.1 Last Ca, Mg, Phos Recent Labs 06/02/23 0059 CALCIUM 9.8 PHOS 3.5 MAGNESIUM 0.79 Last 3 TFT Recent Labs 04/19/23 0035 TSH 0.74 Last 3 Lipids Recent Labs 05/07/23 0110 05/06/23 1050 05/06/23 0030 04/20/23 0110 04/19/23 0035 CHLPL -- -- -- -- 220 HDL -- -- -- -- 86 LDLDIRECT -- -- -- -- 129 TRIG 194 292 1,032 < > 78 < > = values in this interval not displayed. Last 3 HgbA1C Recent Labs 04/19/23 0035 HA1C 6.0* Last CRP, SEDRATENo results for input(s): CRP, SEDRATE in the last 7068 hours. Radiology: CT Head 05/01 No change in ventricular caliber, intraventricular hemorrhage or right cerebellar hemorrhage with moderate surrounding edema. MRI Brain wwo 04/19 Recent infarct involving the posterior medial LEFT parietal lobe. Unchanged size of RIGHT cerebellar intraparenchymal hemorrhage with unchanged volume of intraventricular blood products. Vasogenic edema tracks along the superior right cerebellar peduncle into the right midbrain. Unchanged ventricular caliber with some hyperintense signal along the ventricular surface suggesting some transependymal CSF flow. No abnormal brain parenchymal or meningeal enhancement to suggest underlying malignancy. Small foci of susceptibility related signal loss separate from the areas of hemorrhage, which couldrepresent sequela of small vessel disease versus cerebral amyloid angiopathy. CTA COW 04/17 No evidence of aneurysm or vascular malformation. Bilateral Renal Artery Duplex 04/27 Comment: Limited exam due to time of day (study started at 1600), overlying bowel gas, patient positioning and patient body habitus. Right: Unable to study kidney, renal artery, and renal vein due to limitations listed above. Unableto determine patency. Left: Patent distal main renal artery with no evidence of hemodynamically significant stenosis. Patent main renal vein. Due to limitations listed above unable to study origin and proximal to mid renal artery; cannot exclude higher velocities/ stenosis here. EKG 04/26: TTE 04/18: There is severe concentric left ventricular hypertrophy. Left ventricular systolic function is normal. The left ventricular ejection fraction is 70% by Hester's biplane. There are no segmental wall motion abnormalities. The right ventricle is probably normal in size. Right ventricular function is probably normal. No significant valve disease. The aortic root is dilated. The diameter at the level of the sinuses of Valsalva is 4.2 cm. The ascending aorta is dilated. The maximum diameter of the proximal ascending aorta is 4.5 cm. No comparison study is available. Assessment and Plan: Myla 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 He is s/p EVD placement on 04/17 and removal on 05/01. 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 Pt has required copious anti-hypertensive agents in order to achieve adequate BP control; unfortunately this has been complicated by profound bradycardiaand, at times, episodes of brief asystole (05/13-05/14). Per family request, Palliative has been consulted and family meeting on 05/15. Pt is now DNR/DNI. He was downgraded to step down level to the vascular neurology service on 05/18 for further management of IVH as well as aortic dissection and other medical conditions as below. 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 Per discussion with , reinitiate medical management but without escalation of care. Goals of care have been discussed with the patient's , and she confirms that she would not want intubation or dialysis and further states that she would not want him to return to the ICU under any circumstances. Today's plan: Myla Acosta remains neurologically stable. Discontinuing ceftriaxone for UTI as he has received 7 days of therapy.. Encouraging patient to hydrate with oral hydration. Blood pressure and heart rate have improved significantly. Patient was seen by ophthalmology and did not find any intralocularreasons for his double vision/visual distortion. Continuing to monitor kidney function. Blood pressure within goal, will discontinue Hydralazine. 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 # concern for mediastinal hematoma # HFpEF - maintain SBP < 160mmHg, HR < 80bpm - current anti-hypertensive regimen: - --> d/c'd 2/2 asystole (05/13) - --> d/c'd 2/2 asystole (05/14) - lisinopril 40mg daily-->discontinued 05/19 (OVI)-> restarted at 20mg (05/23) -> increasedto 40mg (05/24) - terazosin 1mg BID - hydralazine 200mg q8h--> 100mg TID (05/27) --> 50mgTID (05/31) --> discontinued 06/01 - -->discontinued on 05/19 (relative hypotension) - aldactone 100mg daily (05/15) - decrease clonidine to 0.2mg q8h (05/14) - Amlodipine 10mg daily 05/25 - Severe bradycardia, prolonged pauses (starting 05/13); likely medication-induced - prefer anticholinergics over pacing - events seemed to have improved throughout today with holding diltiazem and carvedilol - ASA 81mg daily resumed on 05/02 - Discussed metanephrine level with endocrinology - not concerned given barely elevated - Renin:aldosterone ratio #Respiratory failure #Respiratory acidosis 05/19 - extubated 04/18, re-intubated 04/19 d/t agitation/hypoxia, extubated 04/21 , re- intubated 04/26 d/t mental status, now extubated and doing well (05/04) - does not want pt re-intubated under any circumstances or care escalated to ICU - underwent bronch 04/19 with suctioning of mucous plugs L>R - goal O2 sats > 92% - CPAP QHS as tolerated (tolerating 4h QHS) - airway clearance, 3% neb Q4H, Duonebs PRN as per RT # urinary retention # total body fluid overload # hyponatremia, likely diuresis-induced # Concern for ATN iso recent asystole and contrast # UTI, unable to determine if related to f/c - salt tab 3g TID --> decreased to 2g TID --> decreased to 1g TID (05/21) -> discontinued 05/22 - use saline flushes with enteral meds instead of water flushes - Vit D2 50,000 units weekly on Sundays - s/p 500 cc fluid bolus and mIVF, as well as FWB (200 cc TID was ordered) on 05/19; however discontinued fluids per medicine recs given concern for ATN with oliguria and fluid overload - Tamsulosin 0.4mg (05/24) - Voiding trial - 05/29 - failed rebolledo replaced on 05/30 - s/p Ceftriaxone for UTI 05/25-06/01 # right brachial DVT - daily CBC - DVT ppx: SCDs, Lovenox 40mg # right wrist pressure injury - followed by Wound Care # Supportive care - Dysphagia soft -Tylenol PRN -Last Bowel Movement: 05/30/23 # DNR/DNI # NO ESCALATION OF CARE TO ICU Agustina Garg MD Neurology Vascular Neurology Pager [phone] Associated attestation - Andi Abbott MD - 06/02/2023 11:04 AM EDT Neurology Attending Attestation I evaluated the patient with the neurology resident. I have reviewed the medical records and patient's history, as well as the resident???s history and examination findings, and I agree with the details as written. My neurologic examination confirms the resident???s findings. We formulated the assessment and plan after a detailed discussion as documented. Andi Abbott MD Attending Neurologist * Timbo Bunch - 06/01/2023 2:18 PM EDT Office of Care Management/Reed Maker Patient Name: Myla Acosta : 1955 Patient has been offered an acute rehab bed at [facility] for tomorrow, 06/02/23 [facility] arranged for a 1300 transport. Ambulance will need: Medicare ambulance form completed and signed (MD or Advanced Practice Rn RN/HOSPITAL MEDICINE DIRECTOR) Copy of patient demographics [place] or [place] Out of Hospital DNR/DNI order, if active No MD to MD report necessary Please call Nursing Report to , ask for carpenter repair. Info to accompany patient: Copies of Medication Administration Records and IV sheets for past 10 days. Plan: Reed Maker will be available to the patient and Advanced Practice Rn-RN and/or Social Workerfor further assistance. Patient will be discharged to: [facility] Reed Maker * Agustina Garg MD - 06/01/2023 10:56 AM EDT Images from the original note were not included. Neurology Progress Note Patient name: Myla Acosta Date of : 1955 PCP: Fransico Remy MD CC: R cerebellar IPH with VE HPI: Myla 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 He is s/p EVD placement on 04/17 and removal on 05/01. 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 24 hour / interval Hx: - NAOE, BP significantly improved to BP: (97-135)/(62-76) - Bun and Creatinine increased slightly this morning. Will continue to encourage oral intake. - Last Bowel Movement: 05/30/23 - Current hypertension regimen: Chlorthalidone 25mg Hydralazine 50mg TID Amlodipine 10mg Lisinopril 40mg Terazosin 1mg BID Tamsulosin 0.4mg daily Current Medications: Scheduled Meds: QUEtiapine 75 mg Oral Nightly bisacodyL 10 mg Rectal Daily chlorthalidone 25 mg Oral Nightly hydrALAZINE 100 mg Oral TID cefTRIAXone 1 g Intravenous Q24H amLODIPine 10 mg Oral Daily tamsulosin 0.4 mg Oral Daily thiamine 100 mg Intravenous Daily lisinopriL 40 mg Oral Daily cloNIDine 0.2 mg Oral TID enoxaparin 40 mg Subcutaneous Nightly polyethylene glycoL (MIRALAX) oral powder 17 g Oral Daily senna-docusate 1 tablet Oral BID aspirin 300 mg Rectal Daily Or aspirin 81 mg Oral Daily FLUoxetine 20 mg Oral Daily terazosin 1 mg Oral BID ergocalciferoL (vitamin D2) 50,000 Units Oral Weekly Physical Exam: Vitals: Temp: [36.3 ??C (97.3 ??F)-36.8 ??C (98.2 ??F)] Heart Rate: [78-97] Resp: [10-30] BP: (97-135)/(62-76) SpO2: [92 %-97 %] Heart Rate from SpO2: [77 bpm-97 bpm] Gen: Patient of apparent stated age, awake, alert, NAD Neuro Exam: MS: Awake, alert, up in chair, garbled speech. Able to follow simple commands stick out your tongue, show me your thumb. Able to follow cross body command right thumb to left ear. CN: PERRL, no eye patch on today, glasses on No apparent facial asymmetry Hearing intact to voice Motor: RUE/RLE: 06/10 LUE: 4/ able to sustain antigravity for 10 seconds LLE: 04/10: drifts down to bed before 5 seconds Sensation: decreased sensation in LEFT hemibody Cerebellum: FTN intact on RUE. HTS intact on RLE. Labs: Last 3 wbc, hgb, hct plt Recent Labs 06/01/23 0107 05/31/23 0133 05/30/23 0500 WBC 5.9 5.3 6.0 HGB 10.2* 9.5* 9.7* HCT 31.2* 29.0* 29.9* PLATELET 221 222 204 Last 3 Lytes Recent Labs 06/01/23 0106 05/31/23 0133 05/30/23 0501 NA 134* 137 135 K 4.0 3.7 3.7 CL 102 104 102 CO2 20* 21* 21* BUN 36* 34* 34* CREATININE 2.02* 1.79* 1.89* Last 3 LFTs Recent Labs 05/21/23 1027 04/28/23 0120 04/23/23 0024 04/19/23 0035 AST 17 26 28 22 ALT 30 38 26 19 ALKPHOS 94 61 64 66 BILITOT 0.4 0.5 0.4 0.3 BILIDIR -- 0.3 0.2 0.1 Last Ca, Mg, Phos Recent Labs 06/01/23 0106 CALCIUM 9.5 PHOS 3.8 MAGNESIUM 0.78 Last 3 TFT Recent Labs 04/19/23 0035 TSH 0.74 Last 3 Lipids Recent Labs 05/07/23 0110 05/06/23 1050 05/06/23 0030 04/20/23 0110 04/19/23 0035 CHLPL -- -- -- -- 220 HDL -- -- -- -- 86 LDLDIRECT -- -- -- -- 129 TRIG 194 292 1,032 < > 78 < > = values in this interval not displayed. Last 3 HgbA1C Recent Labs 04/19/23 0035 HA1C 6.0* Last CRP, SEDRATENo results for input(s): CRP, SEDRATE in the last 7068 hours. Radiology: CT Head 05/01 No change in ventricular caliber, intraventricular hemorrhage or right cerebellar hemorrhage with moderate surrounding edema. MRI Brain wwo 04/19 Recent infarct involving the posterior medial LEFT parietal lobe. Unchanged size of RIGHT cerebellar intraparenchymal hemorrhage with unchanged volume of intraventricular blood products. Vasogenic edema tracks along the superior right cerebellar peduncle into the right midbrain. Unchanged ventricular caliber with some hyperintense signal along the ventricular surface suggesting some transependymal CSF flow. No abnormal brain parenchymal or meningeal enhancement to suggest underlying malignancy. Small foci of susceptibility related signal loss separate from the areas of hemorrhage, which couldrepresent sequela of small vessel disease versus cerebral amyloid angiopathy. CTA COW 04/17 No evidence of aneurysm or vascular malformation. Bilateral Renal Artery Duplex 04/27 Comment: Limited exam due to time of day (study started at 1600), overlying bowel gas, patient positioning and patient body habitus. Right: Unable to study kidney, renal artery, and renal vein due to limitations listed above. Unableto determine patency. Left: Patent distal main renal artery with no evidence of hemodynamically significant stenosis. Patent main renal vein. Due to limitations listed above unable to study origin and proximal to mid renal artery; cannot exclude higher velocities/ stenosis here. EKG 04/26: TTE 04/18: There is severe concentric left ventricular hypertrophy. Left ventricular systolic function is normal. The left ventricular ejection fraction is 70% by Hester's biplane. There are no segmental wall motion abnormalities. The right ventricle is probably normal in size. Right ventricular function is probably normal. No significant valve disease. The aortic root is dilated. The diameter at the level of the sinuses of Valsalva is 4.2 cm. The ascending aorta is dilated. The maximum diameter of the proximal ascending aorta is 4.5 cm. No comparison study is available. Assessment and Plan: Myla 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 He is s/p EVD placement on 04/17 and removal on 05/01. 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 Pt has required copious anti-hypertensive agents in order to achieve adequate BP control; unfortunately this has been complicated by profound bradycardiaand, at times, episodes of brief asystole (05/13-05/14). Per family request, Palliative has been consulted and family meeting on 05/15. Pt is now DNR/DNI. He was downgraded to step down level to the vascular neurology service on 05/18 for further management of IVH as well as aortic dissection and other medical conditions as below. 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 Per discussion with , reinitiate medical management but without escalation of care. Goals of care have been discussed with the patient's , and she confirms that she would not want intubation or dialysis and further states that she would not want him to return to the ICU under any circumstances. Today's plan: Myla Acosta remains neurologically stable. Continuing ceftriaxone for UTI. Encouraging patientto hydrate with oral hydration. Blood pressure and heart rate have improved significantly. Patient was seen by ophthalmology and did not find any intralocular reasons for his double vision/visual distortion. Was also seen by nephrology for concern of OVI in the setting of known dissection, they osmany mmended continued monitoring of kidney function and fluid intake as this may be as an affect of Lisinopril in conjugation with decreased fluid intake. Continuing to monitor kidney function. Blood pressure within goal, will decrease hydralazine further to 50mg q8h. 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 # concern for mediastinal hematoma # HFpEF - maintain SBP < 160mmHg, HR < 80bpm - current anti-hypertensive regimen: - --> d/c'd 2/2 asystole (05/13) - --> d/c'd /2 asystole (05/14) - lisinopril 40mg daily-->discontinued 05/19 (OVI)-> restarted at 20mg (05/23) -> increasedto 40mg (05/24) - terazosin 1mg BID - hydralazine 200mg q8h--> 100mg TID (05/27) --> 50mgTID (05/31) - -->discontinued on 05/19 (relative hypotension) - aldactone 100mg daily (05/15) - decrease clonidine to 0.2mg q8h (05/14) - Amlodipine 10mg daily 05/25 - Severe bradycardia, prolonged pauses (starting 05/13); likely medication-induced - prefer anticholinergics over pacing - events seemed to have improved throughout today with holding diltiazem and carvedilol - ASA 81mg daily resumed on 05/02 - Discussed metanephrine level with endocrinology - not concerned given barely elevated - Renin:aldosterone ratio #Respiratory failure #Respiratory acidosis 05/19 - extubated 04/18, re-intubated 04/19 d/t agitation/hypoxia, extubated 04/21 , re- intubated 04/26 d/t mental status, now extubated and doing well (05/04) - does not want pt re-intubated under any circumstances or care escalated to ICU - underwent bronch 04/19 with suctioning of mucous plugs L>R - goal O2 sats > 92% - CPAP QHS as tolerated (tolerating 4h QHS) - airway clearance, 3% neb Q4H, Duonebs PRN as per RT # urinary retention # total body fluid overload # hyponatremia, likely diuresis-induced # Concern for ATN iso recent asystole and contrast - salt tab 3g TID --> decreased to 2g TID --> decreased to 1g TID (05/21) -> discontinued 05/22 - use saline flushes with enteral meds instead of water flushes - Vit D2 50,000 units weekly on Sundays - s/p 500 cc fluid bolus and mIVF, as well as FWB (200 cc TID was ordered) on 05/19; however discontinued fluids per medicine recs given concern for ATN with oliguria and fluid overload - Tamsulosin 0.4mg (05/24) - Voiding trial - 05/29 # right brachial DVT - daily CBC - DVT ppx: SCDs, Lovenox 40mg # right wrist pressure injury - followed by Wound Care # Supportive care - Dysphagia soft -Tylenol PRN -Last Bowel Movement: 05/30/23 # DNR/DNI # NO ESCALATION OF CARE TO ICU Agustina Garg MD Neurology Vascular Neurology Pager [phone] Associated attestation - Andi Abbott MD - 06/01/2023 11:06 AM EDT Neurology Attending Attestation I evaluated the patient with the neurology resident. I have reviewed the medical records and patient's history, as well as the resident???s history and examination findings, and I agree with the details as written. My neurologic examination confirms the resident???s findings. We formulated the assessment and plan after a detailed discussion as documented. Andi Abbott MD Attending Neurologist * Qi Dixon, PT - 05/31/2023 4:40 PM EDT Physical Therapy Intervention Note Treatment Number PT: 11 Total duration of encounter: 43 days Patient profile: Myla Acosta is a 67 year old male with unknown pmhx (per chart review, does notappear to have a PCP or follow up within the [facility] system) who presents as a transfer from an OSH for evaluation of a right cerebellar IPH. Per report, he woke up 04/17/23 with c/o vertigo and nausea/vomiting. Subsequent imaging studies revealed a right cerebellar IPH with ANIL. Initial Bps were noted to be in the 200s. Was started on a nicard gtt for BP control. Was subsequently intubated at the OSH for airway protection given worsening somnolence. Presented to [facility] where he was intubated. Brainstem reflexes were preserved. Decision was made to place EVD with NSG. Imaging of carotids and [place] of nugent reveal unexpected finding of type B aortic dissection. CTACA with type B dissection extending from subclav to external iliac. Vascular surgery was consulted.Pt was extubated on 04/23, but has been on the CIWA protocol. 04/18/23 EVD placed-removed on 05/01 & CTH demonstrated improved hydrocephalus 04/19/23 extubated, required reintubation,extubated on 05/04 to 4L NC. Per discussion with , changed from HOSE SUSPENDER CUTTER to reinitiate medical management but without escalation of care. DNR/DNI. Goals of care have been discussed with the patient's , and she confirms that she would not wantintubation or dialysis and further states that she would not want him to return to the ICU under any circumstances. Interval Events: Per Neurology Service: - NAOE, BP significantly improved - Bun and Creatinine improving - Voiding trial - Current hypertension regimen: Chlorthalidone 25mg Hydralazine 100mg TID Amlodipine 10mg Lisinopril 40mg Terazosin 1mg BID Tamsulosin 0.4mg daily Social History: Patient lives with spouse in a single level home, 1 STEP to enter/exit. Walk in shower with grab bars. Spouse works daytime babysitter. 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 Normally independent. Bilateral hip OA/pain butno device used normally. Independent ADLs and shared IADLs. Precautions/Special Considerations: DNR/DNI, SBP <160. Up with assistance Regular diet Mobility and Positioning Recommendations: Pt. to utilize bed/chair positioning with nursing. Pt able to stand-pivot bed>< chair with walker & 2 person assist. Encourage OOB daily; avoid delirium. Subjective: ???I feeling like I'll vomit Objective: Seen in conjunction OT for functional mobility, he demonstrates following: Pain:no c/o's Vital Signs: HR=98 @ rest; 122 w/ gait SpO2=99% RA BP= 135/69(88) Behavior / Mood: Alert, following commands, cooperative but can easily become frustrated/agitated so best if only 1 person speaks. Vision: I can't see; OT tried tape on glasses lens to see affect w/ mob Bed Mobility: Supine > sit: Min A towards L Balance: Static sitting : improving but still leans to R slightly, able to correct to midline when he leans forwards and puts hands on his knee's. Standing: leans to R, gt belt & walker and 2 assist. Transfer: Sit > < stand: Min A x 2 with gait belt from elevated bed to walker. Sat in recliner. Gait: Amb with FWW and Min A x 2 with gait belt as he leans to R and progressed forwards away from bed ~5 ft then sat in recliner (mob tech following with chair). Agreeable to walk again and went another 5 ft before needing to sit d/t nausea. Agreeable to stay up in chair. Gait limited by nausea. He's able to lift both feet. Exercise: Reminded to keep exercising legs in chair: LAQ sitting, marching, ankle pumps. Education: patient reminded of Safety, but with staff assistance, continue to be OOB. Pt left in chair sitting upright at end of session with all needs met, with call hurley in reach, bedalarm active, in room. Assessment: [facility] day #43 s/p right cerebellar IPH. Patient's BP's under bettercontrol, he seems less confused, not agitated today, following simple directions, with encouragement was able to do more than he gave himself credit. He's frustrated by double vision and had nausea today. did state he ate last evening meal & breakfast, first time he's eaten well most of this admit. Generalize weakness in all limbs, weaker R side, falls slightly R/dec postural control/ balance. Tolerated walking today with walker, not far distance before nausea but seated rest able to walk again. Improving strength to help more with sit >< stand. Positioned in recliner @ end of session. present today and supportive. Pt will benefit from skilled therapy services throughout hospitalization to promote safety, independence, and provide developmental support/caregiver education. He is functioning well below his baseline level and would benefit from stay @ rehab facility. Discharge Recommendations: Based on the current findings, Anticipated Discharge Disposition (PT): acute rehabilitation facility when medically ready for hospital discharge. Consult Recommendations: No other consults recommended at this time. Equipment Needs: Anticipated Equipment Needs at Discharge (PT): to be determined (currently using FWW) Inpatient/Acute Care PT Plan: Therapy Frequency (PT): 2-4 times/wk for therapy. Goals: To be achieved by 06/16/23: ONGOING Pt. to consistently perform supine to/from sitting EOB with min A x1 Pt. to perform sit to/from stand transfers with min A x2 and LRAD Pt stand-step transfer bed >< chair with walker & Min A x 1. Pt. to ambulate 10 feet with min A x1 and least restrictive assistive device Pt to sit at EOB, participating in functional task for >5 minutes without LOB, with CG assistance Pt to tolerate use of overhead lift for OOB transfers MET 4/3 Pt to tolerate upright positioning with consistently stable vital signs. Time IN / OUT: 13:40-14:10 Total Minutes, Physical Therapy: 30 (TE-F x 2) Thank you for this consult. QI DIXON, PT Pager: [phone] Physical Therapy Inpatient Rehabilitation Department * Salma Love, OT - 05/31/2023 2:36 PM EDT Occupational Therapy Treatment Note Treatment Number OT: 7 Patient profile: Myla 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 male admitted on 04/18/2023 for R cerebellar hemorrhage with IVH. EVD was placed for hydrocephalus. Pt was intubated at OSH for airway protection. Imaging of carotids and [place] reveal unexpected finding of type B aortic dissection. CTA CA with type B dissection extending from subclav to external iliac. Vascular surgery was consulted. Pt wasextubated on 04/23, but has been on the CIWA protocol. Social History: Patient lives in [place], [place] with his , Tiffany, who still works. They have 2 children 10 and 30 mins away. Home Setup: 1 PATRICIA, 1 level, small thressholds in the house, has a large walk-in shower w/ no seat but grab bar. Per his , he built the house. DME: grab bar, Baseline ADL/Mobility: Pt was independent w/ ADL's. He was somewhat limited because of arthritis inhis hips, but he ambulated w/o a device and his denies h/o falls. He was driving. They share cooking, but Tiffany does most other solderer electronic. 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 He enjoys woodworking and puttering. Hospital Events: 04/18/23: cerebellar hemorrhage and Type B aortic dissection; respiratory failure resulting in intubation and EVD placement 04/19/23; extubation 04/20/23:reintubation 04/22/23: extubation 04/27/23: reintubation 04/30/23: VAP 05/05/23: extubated Precautions/Special Considerations: DNI/DNR; at risk to fall, NGT, SBP< 160, HR<80, R UE PICC, risk for delirium Interval History: non-significant S: I am so nausea Pt reporting when standing O: Patient seen for skilled OT treatment. Pt's Gina was present during session. Pt demonstrated the following: Self-care: Mod A for combing hair while seated in recliner chair Functional Mobility: Received in bed, awake with visiting Supine to sit with min A towards the L with SYSTEM CONFIGURATION SPECIALIST for RUE Pt sat with CGA; noted with occasional lean to the R, but improved seated balance from prior sessions Pt then participated in sit<>stand transfer to FWW from elevated bed, min Ax2 with gait belt FWW noted to be too high Pt sat with min A FWW adjusted Pt then max A for threading underwear in sitting, able to reach for underwear once donned to hike them and then dependent to don once standing Pt reported continued diplopia and difficulty with vision and therapist placed partial occlusion onglasses to assist with decreasing diplopia Pt ambulated ~5 ft and then sat with min Ax2 with FWW and chair follow Pt then ambulated an additional 5 ft and then sat in chair with min Ax2 for hand placement Left up in recliner chair with all needs within reach and chair alarm active Cognition: Behavior / Mood: alert, cooperative, confused, and impaired task initiation; intermittent frustration Alert and oriented to: person, did not formally assess Follows commands: 1-2 step, 100% of the time, requires increased time, and requires repetition Attention: distractible, difficulty attending to task / directions, and requires cues to redirect Safety awareness: decreased insight into deficits and moderate impairment Communication: difficult to understand, mumbling/dysarthric Vision: Pt reporting diplopia at ~1 ft away Pt reporting vertical and horizontal diplopia Pt unable to accurately read clock, but was able to read letters on therapist badge Pt able to track in all planes; glasses 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 Nurse Midwife/Clinical Instructor appointment Endurance: Requires frequent rest breaks Vital Signs: With Activity BP (MAP) Within parameters HR 90-117 bpm Strength/ROM: moving all extremities against gravity Pain: no overt c/o pain this session Education: Pt/family/caregiver education ongoing regarding: Role of occupational therapy/rehabilitation, Transfers, ADL, Exercise, Breathing exercises, Positioning, Safety, Precautions/Protocol, Functional Mobility, Activity pacing/Energy conservation, Balance, Recommendations, Family training, and Discharge planning. Staff Communication: Patient status, treatment, and mobility recommendations discussed with nursing/other staff. ASSESSMENT: Myla was seen for progression of OT per plan of care in conjunction with PT to advancemobility. Pt noted with less confusion today. He is following most simple commands, benefits from less stimulating environment and one person communicating at a time. He was able to ambulate this date. Continue to be at high risk for hospital acquired delirium. Myla will benefit from ongoing therap eutic interventions to achieve pt's and therapy goals Equipment needs at discharge: to be determined Anticipated Discharge Disposition: acute rehabilitation facility Daily schedule / Staff Recommendations: Open shades and turn on lights during the day/lights off at night, Set-up patient with ADL tasks, allow patient to complete ADL tasks as independently as possible Provide choices as able, encourage safe coping skills (such as music, reading, coloring, word search, journaling) Have patient sit up in recliner via lift or bed in chair position during the day as much as possible Sit upright for all meals/meal times Goals: To be achieved within 2 weeks, by 06/16/23: Patient will consistently follow simple one-step commands. Inconsistent each session Patient will consistently be oriented x 4 and CAM (-). Patient will be complete grooming tasks in supported sitting w/ min A. Patient will be mod A with LB dressing. Patient will transfer to the commode with Mod A and least restrictive assistive device. Patient will be mod A w/ a sponge bath in supported sitting. Patient will participate in further vision evaluation. Therapy Frequency (OT): 2-4 times/wk Total Minutes, Occupational Therapy: 30 (1 SC and 1 TEF) Pager: [phone] Salma Love, OT 05/31/2023 Occupational Therapy Rehabilitation Department * Alfred Smiley Diane, OPERATIONS INTERN - 05/31/2023 1:29 PM EDT PATIENT: Myla Acosta : 1955 NEPHROLOGY PROGRESS NOTE Myla 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 male with OVI. Interval History: - No acute events overnight. - Patient seen and evaluated in person at bedside. - Lab and metabolic parameters reviewed. - Without complaints. PE: General: Alert, comfortable. Cooperative with exam. HEENT: Sclera white. Mucous membranes moist. No lymphadenopathy. CV: S1 and S2. HR regular. Resp: Lungs clear anteriorly. Respirations non labored. Abd: Soft. + BS. No bruit. Non tender. Ext: Warm. No cyanosis. No edema. Skin: Warm and dry to touch. No rash. Neuro: Alert and oriented Psych: Mood appropriate Assessment and Recommendations: Myla 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 male OVI. His vision continues to be frustrating for him, no other complaints. Denies pain, shortness of breath, N/V. Creatinine trending down 2.06 > 1.89 > 1.79. HE does not appear volume overloaded. Recommend aiming for slightly positive fluid balance and that he is not retaining urine. MEDICATIONS: QUEtiapine 75 mg Oral Nightly bisacodyL 10 mg Rectal Daily chlorthalidone 25 mg Oral Nightly hydrALAZINE 100 mg Oral TID cefTRIAXone 1 g Intravenous Q24H amLODIPine 10 mg Oral Daily tamsulosin 0.4 mg Oral Daily thiamine 100 mg Intravenous Daily lisinopriL 40 mg Oral Daily cloNIDine 0.2 mg Oral TID enoxaparin 40 mg Subcutaneous Nightly polyethylene glycoL (MIRALAX) oral powder 17 g Oral Daily senna-docusate 1 tablet Oral BID aspirin 300 mg Rectal Daily Or aspirin 81 mg Oral Daily FLUoxetine 20 mg Oral Daily terazosin 1 mg Oral BID ergocalciferoL (vitamin D2) 50,000 Units Oral Weekly No Known Allergies PHYSICAL EXAM: Last value Temperature Temp: 36.8 ??C (98.2 ??F) Heart Rate Heart Rate: 97 Blood Pressure BP: 115/69 Respiratory Rate Resp: 30 SpO2 SpO2: 95 % STUDIES: Labs: CBC: Recent Labs 05/31/23 0133 05/30/23 0500 05/29/23 0410 WBC 5.3 6.0 5.8 HGB 9.5* 9.7* 9.8* PLATELET 222 204 233 Chemistry: Recent Labs 05/31/23 0133 05/30/23 0501 05/29/23 1455 05/29/23 0411 NA 137 135 136 138 K 3.7 3.7 -- 3.9 CL 104 102 -- 103 CO2 21* 21* -- 22 BUN 34* 34* -- 34* CREATININE 1.79* 1.89* -- 2.06* GLUCOSE 95 93 -- 101 Recent Labs 05/31/23 0133 05/30/23 0501 05/29/23 0411 CALCIUM 9.5 9.7 9.9 MAGNESIUM 0.79 0.84 0.86 PHOS 3.4 4.1 4.8* LFT's: Recent Labs 05/21/23 1027 04/28/23 0120 04/23/23 0024 04/19/23 0035 BILITOT 0.4 0.5 0.4 0.3 BILIDIR -- 0.3 0.2 0.1 ALBUMIN 3.9 3.1* 3.5 3.9 ALKPHOS 94 61 64 66 ALT 30 38 26 19 AST 17 26 28 22 Smiley Simon APRN Section of Nephrology Pager [phone] Associated attestation - Costa Tariq MD - 05/31/2023 2:43 PM EDT I saw and discussed the patient with the OPERATIONS INTERN and I agree with the assessment and plan in her note.Creatinine continues to trend down and believes that we are mainly seeing hemodynamic fluctuation at this point. As such would continue to target slightly positive fluid balance as tolerated by cardiopulmonary standpoint and maintain current antihypertensive regimen as directed by cardiology. Renalservice will peripherally follow please call with questions * Tiarra Vasquez SLP - 05/31/2023 10:32 AM EDT Speech Pathology Contact Note Chart reviewed. Spoke with patient and his who reported good PO intake with dinner last night and with breakfast this morning (100%). They denied swallow- specific concerns. We will continue to follow for cognition and dysphagia management. Please secure chat with questions, thanks! Tiarra Vasquez, MS, [facility]-TREASURY CONSULTANT Speech-Language Pathologist Inpatient Rehabilitation Pager # [phone] * Agustina Garg MD - 05/31/2023 8:03 AM EDT Images from the original note were not included. Neurology Progress Note Patient name: Myla Acosta Date of : 1955 PCP: Fransico Remy MD CC: R cerebellar IPH with VE HPI: Myla 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 He is s/p EVD placement on 04/17 and removal on 05/01. 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 24 hour / interval Hx: - NAOE, BP significantly improved to BP: (104-143)/(58-94) - Bun and Creatinine improving - Last Bowel Movement: 05/30/23 - Current hypertension regimen: Chlorthalidone 25mg Hydralazine 100mg TID Amlodipine 10mg Lisinopril 40mg Terazosin 1mg BID Tamsulosin 0.4mg daily - Voiding trial yesterday - Changed to med/surg status with decreased vital checks in order to limit distruptions. Current Medications: Scheduled Meds: QUEtiapine 75 mg Oral Nightly bisacodyL 10 mg Rectal Daily chlorthalidone 25 mg Oral Nightly hydrALAZINE 100 mg Oral TID cefTRIAXone 1 g Intravenous Q24H amLODIPine 10 mg Oral Daily tamsulosin 0.4 mg Oral Daily thiamine 100 mg Intravenous Daily lisinopriL 40 mg Oral Daily cloNIDine 0.2 mg Oral TID enoxaparin 40 mg Subcutaneous Nightly polyethylene glycoL (MIRALAX) oral powder 17 g Oral Daily senna-docusate 1 tablet Oral BID aspirin 300 mg Rectal Daily Or aspirin 81 mg Oral Daily FLUoxetine 20 mg Oral Daily terazosin 1 mg Oral BID ergocalciferoL (vitamin D2) 50,000 Units Oral Weekly Physical Exam: Vitals: Temp: [36.3 ??C (97.3 ??F)-37.3 ??C (99.1 ??F)] Heart Rate: [81-116] Resp: [18-24] BP: (104-143)/(58-94) SpO2: [91 %-98 %] Heart Rate from SpO2: [80 bpm-117 bpm] Gen: Patient of apparent stated age, awake, alert, NAD Neuro Exam: MS: Awake, alert, up in chair, garbled speech. Able to follow simple commands stick out your tongue, show me your thumb. Able to follow cross body command right thumb to left ear. CN: PERRL, no eye patch on today, glasses on No apparent facial asymmetry Hearing intact to voice Motor: RUE/RLE: 5/5 LUE: 4/5 able to sustain antigravity for 10 seconds LLE: 3/5: drifts down to bed before 5 seconds Sensation: decreased sensation in LEFT hemibody Cerebellum: FTN intact on RUE. HTS intact on RLE. Labs: Last 3 wbc, hgb, hct plt Recent Labs 05/31/23 0133 05/30/23 0500 05/29/23 0410 WBC 5.3 6.0 5.8 HGB 9.5* 9.7* 9.8* HCT 29.0* 29.9* 30.2* PLATELET 222 204 233 Last 3 Lytes Recent Labs 05/31/23 0133 05/30/23 0501 05/29/23 1455 05/29/23 0411 NA 137 135 136 138 K 3.7 3.7 -- 3.9 CL 104 102 -- 103 CO2 21* 21* -- 22 BUN 34* 34* -- 34* CREATININE 1.79* 1.89* -- 2.06* Last 3 LFTs Recent Labs 05/21/23 1027 04/28/23 0120 04/23/23 0024 04/19/23 0035 AST 17 26 28 22 ALT 30 38 26 19 ALKPHOS 94 61 64 66 BILITOT 0.4 0.5 0.4 0.3 BILIDIR -- 0.3 0.2 0.1 Last Ca, Mg, Phos Recent Labs 05/31/23 0133 CALCIUM 9.5 PHOS 3.4 MAGNESIUM 0.79 Last 3 TFT Recent Labs 04/19/23 0035 TSH 0.74 Last 3 Lipids Recent Labs 05/07/23 0110 05/06/23 1050 05/06/23 0030 04/20/23 0110 04/19/23 0035 CHLPL -- -- -- -- 220 HDL -- -- -- -- 86 LDLDIRECT -- -- -- -- 129 TRIG 194 292 1,032 < > 78 < > = values in this interval not displayed. Last 3 HgbA1C Recent Labs 04/19/23 0035 HA1C 6.0* Last CRP, SEDRATENo results for input(s): CRP, SEDRATE in the last 7068 hours. Radiology: CT Head 05/01 No change in ventricular caliber, intraventricular hemorrhage or right cerebellar hemorrhage with moderate surrounding edema. MRI Brain wwo 04/19 Recent infarct involving the posterior medial LEFT parietal lobe. Unchanged size of RIGHT cerebellar intraparenchymal hemorrhage with unchanged volume of intraventricular blood products. Vasogenic edema tracks along the superior right cerebellar peduncle into the right midbrain. Unchanged ventricular caliber with some hyperintense signal along the ventricular surface suggesting some transependymal CSF flow. No abnormal brain parenchymal or meningeal enhancement to suggest underlying malignancy. Small foci of susceptibility related signal loss separate from the areas of hemorrhage, which couldrepresent sequela of small vessel disease versus cerebral amyloid angiopathy. CTA COW 04/17 No evidence of aneurysm or vascular malformation. Bilateral Renal Artery Duplex 04/27 Comment: Limited exam due to time of day (study started at 1600), overlying bowel gas, patient positioning and patient body habitus. Right: Unable to study kidney, renal artery, and renal vein due to limitations listed above. Unableto determine patency. Left: Patent distal main renal artery with no evidence of hemodynamically significant stenosis. Patent main renal vein. Due to limitations listed above unable to study origin and proximal to mid renal artery; cannot exclude higher velocities/ stenosis here. EKG 04/26: TTE 04/18: There is severe concentric left ventricular hypertrophy. Left ventricular systolic function is normal. The left ventricular ejection fraction is 70% by Hester's biplane. There are no segmental wall motion abnormalities. The right ventricle is probably normal in size. Right ventricular function is probably normal. No significant valve disease. The aortic root is dilated. The diameter at the level of the sinuses of Valsalva is 4.2 cm. The ascending aorta is dilated. The maximum diameter of the proximal ascending aorta is 4.5 cm. No comparison study is available. Assessment and Plan: Myla 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 He is s/p EVD placement on 04/17 and removal on 05/01. 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 Pt has required copious anti-hypertensive agents in order to achieve adequate BP control; unfortunately this has been complicated by profound bradycardiaand, at times, episodes of brief asystole (05/13-05/14). Per family request, Palliative has been consulted and family meeting on 05/15. Pt is now DNR/DNI. He was downgraded to step down level to the vascular neurology service on 05/18 for further management of IVH as well as aortic dissection and other medical conditions as below. 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 Per discussion with , reinitiate medical management but without escalation of care. Goals of care have been discussed with the patient's , and she confirms that she would not want intubation or dialysis and further states that she would not want him to return to the ICU under any circumstances. Today's plan: Myla Acosta remains neurologically stable. Continuing ceftriaxone for UTI. Encouraging patientto hydrate with oral hydration. Blood pressure and heart rate have improved significantly. Patient was seen by ophthalmology and did not find any intralocular reasons for his double vision/visual distortion. Was also seen by nephrology for concern of OVI in the setting of known dissection, they osmany mmended continued monitoring of kidney function and fluid intake as this may be as an affect of Lisinopril in conjugation with decreased fluid intake. Continuing to monitor kidney function which is improving. Voiding trial started yesterday. Will continue to monitor. 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 # concern for mediastinal hematoma # HFpEF - maintain SBP < 160mmHg, HR < 80bpm - current anti-hypertensive regimen: - --> d/c'd 2/2 asystole (05/13) - --> d/c'd 2/2 asystole (05/14) - lisinopril 40mg daily-->discontinued 05/19 (OVI)-> restarted at 20mg (05/23) -> increasedto 40mg (05/24) - terazosin 1mg BID - hydralazine 200mg q8h--> 100mg TID (05/27) - -->discontinued on 05/19 (relative hypotension) - aldactone 100mg daily (05/15) - decrease clonidine to 0.2mg q8h (05/14) - Amlodipine 10mg daily 05/25 - Severe bradycardia, prolonged pauses (starting 05/13); likely medication-induced - prefer anticholinergics over pacing - events seemed to have improved throughout today with holding diltiazem and carvedilol - ASA 81mg daily resumed on 05/02 - Discussed metanephrine level with endocrinology - not concerned given barely elevated - Renin:aldosterone ratio #Respiratory failure #Respiratory acidosis 05/19 - extubated 04/18, re-intubated 04/19 d/t agitation/hypoxia, extubated 04/21 , re- intubated 04/26 d/t mental status, now extubated and doing well (05/04) - does not want pt re-intubated under any circumstances or care escalated to ICU - underwent bronch 04/19 with suctioning of mucous plugs L>R - goal O2 sats > 92% - CPAP QHS as tolerated (tolerating 4h QHS) - airway clearance, 3% neb Q4H, Duonebs PRN as per RT # urinary retention # total body fluid overload # hyponatremia, likely diuresis-induced # Concern for ATN iso recent asystole and contrast - salt tab 3g TID --> decreased to 2g TID --> decreased to 1g TID (05/21) -> discontinued 05/22 - use saline flushes with enteral meds instead of water flushes - Vit D2 50,000 units weekly on Sundays - s/p 500 cc fluid bolus and mIVF, as well as FWB (200 cc TID was ordered) on 05/19; however discontinued fluids per medicine recs given concern for ATN with oliguria and fluid overload - Tamsulosin 0.4mg (05/24) - Voiding trial - 05/29 # right brachial DVT - daily CBC - DVT ppx: SCDs, Lovenox 40mg # right wrist pressure injury - followed by Wound Care # Supportive care - Dysphagia soft -Tylenol PRN -Last Bowel Movement: 05/30/23 # DNR/DNI # NO ESCALATION OF CARE TO ICU Agustina Garg MD Neurology Vascular Neurology Pager [phone] Associated attestation - Andi Abbott MD - 05/31/2023 2:05 PM EDT Neurology Attending Attestation I evaluated the patient with the neurology resident. I have reviewed the medical records and patient's history, as well as the resident???s history and examination findings, and I agree with the details as written. My neurologic examination confirms the resident???s findings. We formulated the assessment and plan after a detailed discussion as documented. Andi Abbott MD Attending Neurologist * Azul Pizano RN - 05/31/2023 5:03 AM EDT Patient awake, alert and oriented to self and place this morning. Went in to bladder scan him around 0400 and he complained of numbness in both of his hands and his fingers, and also his left foot. This is a change from the previous assessment done at midnight in which he denied any numbness of tingling in his extremities. Paged neurology and spoke to the doctor covering for the team. He explained that to his knowledge, the patient has always had numbness and he didn't think this was new symptoms. He advised that in the absence of other symptoms we should continue to monitor, and if other symptoms start to call back. Also, had to perform an intermittent catheterization x1 for bladder scan volume of 457 and inability to void. 630 Ml output noted. The patient had a fairly good night and is resting quietly in bed. Will continue to monitor. 0600: Patient reassessed. Now denies numbness/tingling. States I don't have numbness or tingling anywhere. States he had a good nap and feels awesome this morning. * Maria Pineda - 05/30/2023 4:00 PM EDT Pouch Maker Encounter Note Patient Name: Myla Acosta : [id number] MR#: [id number] Admit Date: 04/18/2023 6:34 AM Hospital Day 42 days Narrative: Follow up visit. The patient's Tete was with him. Assessment: The patient was much more alert and talking more than the last time I saw him. He is discouraged about his continuing vision problems. Intervention and Outcome: Affirmed that the patient had made a lot of progress since I last saw him. Talked about how he still has a sense of humor and how this is helpful. Wished them well going forward for things getting better little by little. The patient thanked me for coming which I said also showed how he has come quite a ways. Follow-up: Will plan to follow up for continued support. Time in Direct Care: 10 minutes. Maria Pineda 05/30/2023 * Smiley Simon APRN - 05/30/2023 1:02 PM EDT PATIENT: Myla Acosta : 1955 NEPHROLOGY PROGRESS NOTE Myla 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 male seen for OVI. Interval History: - No acute events overnight. - Patient seen and evaluated in person at bedside. - Lab and metabolic parameters reviewed. - Complaining of nausea this morning. PE: General: Alert. Cooperative with exam. HEENT: Sclera white. Mucous membranes moist. CV: S1 and S2. HR regular. Resp: Lungs clear anteriorly. Respirations non labored. Abd: Soft. + BS. Non tender. Ext: Warm. No cyanosis. No edema. Skin: Warm and dry to touch. No rash. Neuro: Alert and oriented x4. Psych: Mood appropriate. Assessment and Recommendations: Myla 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 male with OVI. Complaining of nausea, because of this, currently taking anything by mouth. Creatinine trending down from yesterday. He remains nonoliguric, however urine output is slightly down. He does not show signs of fluid overload. His po intake is limited by his nausea today. Recommend continuing to target slightly positive fluid balance. MEDICATIONS: bisacodyl EC 10 mg Oral BID bisacodyL 10 mg Rectal Daily chlorthalidone 25 mg Oral Nightly hydrALAZINE 100 mg Oral TID cefTRIAXone 1 g Intravenous Q24H amLODIPine 10 mg Oral Daily tamsulosin 0.4 mg Oral Daily thiamine 100 mg Intravenous Daily lisinopriL 40 mg Oral Daily cloNIDine 0.2 mg Oral TID enoxaparin 40 mg Subcutaneous Nightly polyethylene glycoL (MIRALAX) oral powder 17 g Oral Daily senna-docusate 1 tablet Oral BID aspirin 300 mg Rectal Daily Or aspirin 81 mg Oral Daily FLUoxetine 20 mg Oral Daily QUEtiapine 100 mg Oral Nightly terazosin 1 mg Oral BID ergocalciferoL (vitamin D2) 50,000 Units Oral Weekly No Known Allergies PHYSICAL EXAM: Last value Temperature Temp: 36.4 ??C (97.6 ??F) Heart Rate Heart Rate: 91 Blood Pressure BP: 125/76 Respiratory Rate Resp: 22 SpO2 SpO2: 98 % STUDIES: Labs: CBC: Recent Labs 05/30/23 0500 05/29/23 0410 05/28/23 0512 WBC 6.0 5.8 6.9 HGB 9.7* 9.8* 10.3* PLATELET 204 233 234 Chemistry: Recent Labs 05/30/23 0501 05/29/23 1455 05/29/23 0411 05/28/23 0510 NA 135 136 138 137 K 3.7 -- 3.9 3.6 CL 102 -- 103 103 CO2 21* -- 22 20* BUN 34* -- 34* 28* CREATININE 1.89* -- 2.06* 1.53* GLUCOSE 93 -- 101 102 Recent Labs 05/30/23 0501 05/29/23 0411 05/28/23 0510 CALCIUM 9.7 9.9 9.7 MAGNESIUM 0.84 0.86 0.78 PHOS 4.1 4.8* 3.4 LFT's: Recent Labs 05/21/23 1027 04/28/23 0120 04/23/23 0024 04/19/23 0035 BILITOT 0.4 0.5 0.4 0.3 BILIDIR -- 0.3 0.2 0.1 ALBUMIN 3.9 3.1* 3.5 3.9 ALKPHOS 94 61 64 66 ALT 30 38 26 19 AST 17 26 28 22 Smiley Simon APRN Section of Nephrology Pager [phone] Associated attestation - Costa Tariq MD - 05/30/2023 1:30 PM EDT I saw and discussed the patient with the OPERATIONS INTERN and agree with the assessment and plan in his note. Encouraged by downtrending creatinine likely signifies that fluctuation was hemodynamic in nature with reintroduction of antihypertensive regimen plus being slightly behind on fluids. We continue to defer to cardiology for antihypertensive management and recommend targeting even to slightly positive fluid balance as well as ensuring patient not retaining urine. Renal service will continue to peripherally follow in the coming days please call with questions * Agustina Garg MD - 05/30/2023 12:06 PM EDT Images from the original note were not included. Neurology Progress Note Patient name: Myla Acosta Date of : 1955 PCP: Fransico Remy MD CC: R cerebellar IPH with VE HPI: Myla 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 He is s/p EVD placement on 04/17 and removal on 05/01. 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 24 hour / interval Hx: - NAOE, BP significantly improved to BP: (106-152)/(62-76) - Bun and Creatinine improving - Last Bowel Movement: 05/30/23 - Current hypertension regimen: Chlorthalidone 25mg Hydralazine 100mg TID Amlodipine 10mg Lisinopril 40mg Terazosin 1mg BID Tamsulosin 0.4mg daily - Spouse is concerned for ongoing sedation Current Medications: Scheduled Meds: bisacodyl EC 10 mg Oral BID bisacodyL 10 mg Rectal Daily chlorthalidone 25 mg Oral Nightly hydrALAZINE 100 mg Oral TID cefTRIAXone 1 g Intravenous Q24H amLODIPine 10 mg Oral Daily tamsulosin 0.4 mg Oral Daily thiamine 100 mg Intravenous Daily lisinopriL 40 mg Oral Daily cloNIDine 0.2 mg Oral TID enoxaparin 40 mg Subcutaneous Nightly polyethylene glycoL (MIRALAX) oral powder 17 g Oral Daily senna-docusate 1 tablet Oral BID aspirin 300 mg Rectal Daily Or aspirin 81 mg Oral Daily FLUoxetine 20 mg Oral Daily QUEtiapine 100 mg Oral Nightly terazosin 1 mg Oral BID ergocalciferoL (vitamin D2) 50,000 Units Oral Weekly Physical Exam: Vitals: Temp: [36.3 ??C (97.3 ??F)-37.2 ??C (98.9 ??F)] Heart Rate: [84-95] Resp: [13-25] BP: (106-152)/(62-76) SpO2: [86 %-98 %] Heart Rate from SpO2: [84 bpm-95 bpm] Gen: Patient of apparent stated age, awake, alert, NAD Neuro Exam: MS: Awake, alert, up in chair, garbled speech. Able to follow simple commands stick out your tongue, show me your thumb. Able to follow cross body command right thumb to left ear. CN: PERRL, no eye patch on today, glasses on No apparent facial asymmetry Hearing intact to voice Motor: RUE/RLE: 5/5 LUE: 4/5 able to sustain antigravity for 10 seconds LLE: 3/5: drifts down to bed before 5 seconds Sensation: decreased sensation in LEFT hemibody Cerebellum: FTN intact on RUE. HTS intact on RLE. Labs: Last 3 wbc, hgb, hct plt Recent Labs 05/30/23 0500 05/29/23 0410 05/28/23 0512 WBC 6.0 5.8 6.9 HGB 9.7* 9.8* 10.3* HCT 29.9* 30.2* 31.5* PLATELET 204 233 234 Last 3 Lytes Recent Labs 05/30/23 0501 05/29/23 1455 05/29/23 0411 05/28/23 0510 NA 135 136 138 137 K 3.7 -- 3.9 3.6 CL 102 -- 103 103 CO2 21* -- 22 20* BUN 34* -- 34* 28* CREATININE 1.89* -- 2.06* 1.53* Last 3 LFTs Recent Labs 05/21/23 1027 04/28/23 0120 04/23/23 0024 04/19/23 0035 AST 17 26 28 22 ALT 30 38 26 19 ALKPHOS 94 61 64 66 BILITOT 0.4 0.5 0.4 0.3 BILIDIR -- 0.3 0.2 0.1 Last Ca, Mg, Phos Recent Labs 05/30/23 0501 CALCIUM 9.7 PHOS 4.1 MAGNESIUM 0.84 Last 3 TFT Recent Labs 04/19/23 0035 TSH 0.74 Last 3 Lipids Recent Labs 05/07/23 0110 05/06/23 1050 05/06/23 0030 04/20/23 0110 04/19/23 0035 CHLPL -- -- -- -- 220 HDL -- -- -- -- 86 LDLDIRECT -- -- -- -- 129 TRIG 194 292 1,032 < > 78 < > = values in this interval not displayed. Last 3 HgbA1C Recent Labs 04/19/23 0035 HA1C 6.0* Last CRP, SEDRATENo results for input(s): CRP, SEDRATE in the last 7068 hours. Radiology: CT Head 05/01 No change in ventricular caliber, intraventricular hemorrhage or right cerebellar hemorrhage with moderate surrounding edema. MRI Brain wwo 04/19 Recent infarct involving the posterior medial LEFT parietal lobe. Unchanged size of RIGHT cerebellar intraparenchymal hemorrhage with unchanged volume of intraventricular blood products. Vasogenic edema tracks along the superior right cerebellar peduncle into the right midbrain. Unchanged ventricular caliber with some hyperintense signal along the ventricular surface suggesting some transependymal CSF flow. No abnormal brain parenchymal or meningeal enhancement to suggest underlying malignancy. Small foci of susceptibility related signal loss separate from the areas of hemorrhage, which couldrepresent sequela of small vessel disease versus cerebral amyloid angiopathy. CTA COW 04/17 No evidence of aneurysm or vascular malformation. Bilateral Renal Artery Duplex 04/27 Comment: Limited exam due to time of day (study started at 1600), overlying bowel gas, patient positioning and patient body habitus. Right: Unable to study kidney, renal artery, and renal vein due to limitations listed above. Unableto determine patency. Left: Patent distal main renal artery with no evidence of hemodynamically significant stenosis. Patent main renal vein. Due to limitations listed above unable to study origin and proximal to mid renal artery; cannot exclude higher velocities/ stenosis here. EKG 04/26: TTE 04/18: There is severe concentric left ventricular hypertrophy. Left ventricular systolic function is normal. The left ventricular ejection fraction is 70% by Hester's biplane. There are no segmental wall motion abnormalities. The right ventricle is probably normal in size. Right ventricular function is probably normal. No significant valve disease. The aortic root is dilated. The diameter at the level of the sinuses of Valsalva is 4.2 cm. The ascending aorta is dilated. The maximum diameter of the proximal ascending aorta is 4.5 cm. No comparison study is available. Assessment and Plan: Myla 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 He is s/p EVD placement on 04/17 and removal on 05/01. 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 Pt has required copious anti-hypertensive agents in order to achieve adequate BP control; unfortunately this has been complicated by profound bradycardiaand, at times, episodes of brief asystole (05/13-05/14). Per family request, Palliative has been consulted and family meeting on 05/15. Pt is now DNR/DNI. He was downgraded to step down level to the vascular neurology service on 05/18 for further management of IVH as well as aortic dissection and other medical conditions as below. 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 Per discussion with , reinitiate medical management but without escalation of care. Goals of care have been discussed with the patient's , and she confirms that she would not want intubation or dialysis and further states that she would not want him to return to the ICU under any circumstances. Today's plan: Myla Acosta remains neurologically stable. Patient reported visual distortion previously and EEG completed and no discrete seizures, epileptiform discharges, rhythmic or periodic patterns were seen. Continuing ceftriaxone for UTI. Encouraging patient to hydrate with oral hydration. Blood pressure and heart rate have improved significantly. Patient was seen by ophthalmology yesterday and did not find any intralocular reasons for his double vision/visual distortion. Was also seen by nephrology for concern of OVI in the setting of known dissection, they recommended continued monitoring of kidney function and fluid intake as this may be as an affect of Lisinopril in conjugation with decreased fluid intake. 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 # concern for mediastinal hematoma # HFpEF - maintain SBP < 160mmHg, HR < 80bpm - current anti-hypertensive regimen: - --> d/c'd 2/2 asystole (05/13) - --> d/c'd 2/2 asystole (05/14) - lisinopril 40mg daily-->discontinued 05/19 ([facility])-> restarted at 20mg (05/23) -> increasedto 40mg (05/24) - terazosin 1mg BID - hydralazine 200mg q8h--> 150mg TID (05/27) - -->discontinued on 05/19 (relative hypotension) - aldactone 100mg daily (05/15) - decrease clonidine to 0.2mg q8h (05/14) --> held afternoon dose on 05/19 -Amlodipine 10mg daily 05/25 - Severe bradycardia, prolonged pauses (starting 05/13); likely medication-induced - prefer anticholinergics over pacing - events seemed to have improved throughout today with holding diltiazem and carvedilol - ASA 81mg daily resumed on 05/02 - Re-engage cardiology for BP management - Discuss metanephrine level with endocrinology - Renin:aldosterone ratio pending #Respiratory failure #Respiratory acidosis 05/19 - extubated 04/18, re-intubated 04/19 d/t agitation/hypoxia, extubated 04/21 , re- intubated 04/26 d/t mental status, now extubated and doing well (05/04) - does not want pt re-intubated under any circumstances or care escalated to ICU - underwent bronch 04/19 with suctioning of mucous plugs L>R - goal O2 sats > 92% - CPAP QHS as tolerated (tolerating 4h QHS) - airway clearance, 3% neb Q4H, Duonebs PRN as per RT # urinary retention # total body fluid overload # hyponatremia, likely diuresis-induced # Concern for ATN iso recent asystole and contrast - salt tab 3g TID --> decreased to 2g TID --> decreased to 1g TID (05/21) -> discontinued 05/22 - use saline flushes with enteral meds instead of water flushes - Vit D2 50,000 units weekly on Sundays - s/p 500 cc fluid bolus and mIVF, as well as FWB (200 cc TID was ordered) on 05/19; however discontinued fluids per medicine recs given concern for ATN with oliguria and fluid overload - Tamsulosin 0.4mg (05/24) # right brachial DVT - daily CBC - DVT ppx: SCDs, Lovenox 40mg # right wrist pressure injury - followed by Wound Care # Supportive care - Dysphagia soft -Tylenol PRN -Last Bowel Movement: 05/30/23 # DNR/DNI # NO ESCALATION OF CARE TO ICU Agustina Garg MD Neurology Vascular Neurology Pager [phone] Associated attestation - Andi Abbott MD - 05/30/2023 2:43 PM EDT Neurology Attending Attestation I evaluated the patient with the neurology resident. I have reviewed the medical records and patient's history, as well as the resident???s history and examination findings, and I agree with the details as written. My neurologic examination confirms the resident???s findings. We formulated the assessment and plan after a detailed discussion as documented. Andi Abbott MD Attending Neurologist * Malissa Campa, RD - 05/30/2023 11:37 AM EDT Nutrition Progress Note Myla 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 male with unknown pmhx (no PCP or listed medications) who presents asa transfer from an OSH for evaluation of a right cerebellar IPH. Now s/p R EVD placement 04/17 givenhydrocephalus. Reason for Assessment: Follow-up Nutrition Recommendations: Diet advanced to Dysphagia Soft on 05/21. TREASURY CONSULTANT recommends advancement to Regular to broaden food choices. - PO intake/appetite remains poor. Continue [place] Instant Breakfast shakes TID to meals. Tube feeds discontinued on 05/19. Pt/family decline replacement of NGT. Current Nutrition Regimen: Active Orders Diet Regular diet Frequency: Effective Now Number of Occurrences: Until Specified Assessment: Lab Results Component Value Date NA 135 05/30/2023 K 3.7 05/30/2023 CL 102 05/30/2023 CO2 21 (L) 05/30/2023 BUN 34 (H) 05/30/2023 CREATININE 1.89 (H) 05/30/2023 ESTGFR 39 (L) 05/30/2023 MAGNESIUM 0.84 05/30/2023 CALCIUM 9.7 05/30/2023 PHOS 4.1 05/30/2023 AST 17 05/21/2023 ALT 30 05/21/2023 ALKPHOS 94 05/21/2023 BILITOT 0.4 05/21/2023 BILIDIR 0.3 04/28/2023 TRIG 194 05/07/2023 HA1C 6.0 (H) 04/19/2023 [id number] 606 05/22/2023 25OHVITD 13 (L) 04/29/2023 SFOLATE 15.1 05/22/2023 IRON 25 (L) 04/29/2023 No results found for: POCGLU Patient Lines/Drains/Airways Status Active Nutritional LDAs Name Placement date Placement time Site Days PIV 05/25/23 1257 22 gauge;1.75 in length cephalic vein (lateral side of arm), left 05/25/23 1257 -- 5 Urethral Catheter 05/24/231914 14 10 05/24/231914 -- 6 Pressure Injury 05/02/23 other (see comments) Stage 1 05/02/23 -- -- 28 Pressure Injury 05/09/23 other (see comments) suspected deep tissue injury 05/09/23 -- -- 21 Oxygen Therapy / Airway Device: Nasal cannula Shift Pressure Injury Prevention Occiput: No Injury Thoracic Spine: No Injury Sacral: No Injury Ischial - left: No Injury Ischial - right: No Injury Heel - left: No Injury Heel - right: No Injury Elbow - left: No Injury Elbow - right: No Injury Device Sites: BP Cuff, ECG Leads, IV sites, O2 sat monitor Other Sites: ID band Last Bowel Movement: 05/30/23 Intake/Output Summary (Last 24 hours) at 05/30/2023 1137 Last data filed at 05/30/2023 1005 Gross per 24 hour Intake 570 ml Output 1600 ml Net -1030 ml Relevant medications: vitamin D2 50,000 U/week, pericolace, thiamine Anthropometrics: Admit Weight: 111.8 kg Estimated body mass index is 34.98 kg/m?? as calculated from the following: Height as of this encounter: 174 cm (5' 8.5). Weight as of this encounter: 105.9 kg (233 lb 7.5 oz). [place] Body Weight (IBW) (kg): 71.37 Wt Readings from Last 10 Encounters: 05/30/23 105.9 kg (233 lb 7.5 oz) Patient Vitals for the past 168 hrs: Weight 05/30/23 0900 105.9 kg (233 lb 7.5 oz) 05/30/23 0600 105.9 kg (233 lb 7.5 oz) 05/29/23 0534 107.6 kg (237 lb 3.4 oz) 05/26/23 0600 110.7 kg (244 lb 0.8 oz) 05/25/23 0600 112.5 kg (248 lb 0.3 oz) Weight Source: Bed Estimated / Assessed Needs: Fluid Requirements: Estimated Fluid Requirement Method: Weight Based Method Weight Based Method: 30 Weight Based Calculation: 2142 mL Metabolic cart study: 1820 kcals Kcal / K - 1785 Kcal (20 Kcal/Kg - 25 Kcal/Kg) Estimated Protein Needs: 86 g - 107 g (1.2 g/Kg - 1.5 g/Kg) Nutrition intake and intake history / interview: 05/29: Appetite and PO intake remain poor. TREASURY CONSULTANT recommending diet upgrade to regular to allow more food choices. Pt asking for coffee ice cream, however we do not have coffee ice cream anymore. Will offer coffee flavored CIB shake instead. 05/24: Pt refusing a lot of PO. Per chart review, plan remains no escalation of care and no plans for NGT replacement. Will continue to offer oral nutrition supplements and encouragement for PO intake. Weight appears stable. 05/21: Team consulted nutrition for concentrated renal feeds over the weekend, however, patient thenwent HOSE SUSPENDER CUTTER, had NGT removed, then HOSE SUSPENDER CUTTER status was reversed over the weekend. Pt on Puree diet and planis keep NGT out for now and see how patient does with PO intake. 05/18: TF continues at goal. Wt slowly trending down per documentation, receiving lasix prn. Will continue to monitor volume status and adjust TF accordingly. LBM 05/18. 05/14: TF at goal. Sips and chips (give meds) per TREASURY CONSULTANT recs, possible MBS today. Pt tolerating feeds per nsg, no s/s of discomfort. Per palliative note (05/14), does not feel pt would want prolonged feeding tube, possibly considering a comfort-focused approach. LBM 05/15. 05/11: TF at goal. Na wnl today. Continues NPO per TREASURY CONSULTANT recs, has been on TF since 04/18 and has [place] sump in place. 05/09: TF now at goal. Hyponatremic today and volume status trending down. Team requesting to switch to more concentrated TF formula. 05/07: TF switched to trickle today. Per team, c/f aspiration with pt sliding down in bed - requesting to trial intermittent TF. Will increase kcal from TF now that propofol d/c. 05/04: Propofol off. TF at goal. Hyponatremic. Extubated again today. 05/02: Propofol rate decreasing, will increase kcal from TF. 04/30: TF on APR hold. Propofol went up quite a bit. 04/27: Extubated and re-intubated. TF presently off. On small amt of propofol and javon. Multiple BM yesterday. Lasix drip. GFR <60. Met cart study 1820 kcals. 04/25: TF was off/on hold this morning due to TF formula not being available per flowsheet - checkedunit storage - plenty of Pep AF in top drawer. Pt back from CT scan and TF reportedly restarted. NoBM since 04/21. Phos and Na slightly low. 04/23: Consulted again for TF. Prior goal remains appropriate for now - advance to goal. Off propofol. Has small bore feeding tube. Needs to move bowels. NPO per TREASURY CONSULTANT. 04/19: Re-intubated. TF at 25 mL/hr today. On low dose propofol. No BM this admission. 04/17: Consulted for TF recommendations. May extubate tomorrow. On some propofol. On alcohol withdrawal protocol - thiamine, folic acid and Thera M ordered. Nutrition Focused Physical Exam: Not performed Reason NFPE Not Performed: Not indicated. Malnutrition Diagnosis: Not identified (BETHANY Hagen J Parenteral Enteral Nutr. 2011; 36(3): 273-83) Nutrition to continue to follow up while inpatient * Tiarra Vasquez SLP - 05/30/2023 10:36 AM EDT Speech Therapy Note Patient Profile: Myla 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 He was intubated at OSH for airway protection given worsening somnolence and transferred to [facility] on 04/18/2023. Hospital course has been complicated by hypoxic respiratory failure requiring multiple intubations (04/17-04/18, 04/18-04/21, 04/26-05/04; 12 days total). TREASURY CONSULTANT has been following since 04/23 for cognition and dysphagia management. Interval History: Frustrated with vision changes Recent Imaging: XR Abdomen (05/28/2023) IMPRESSION Cannot distinguish ileus from early small bowel obstruction. No perforation. Subjective: Patient was irritable but accepted a bonnie cracker given encouragement. His , Tete, was at the bedside and reported poor appetite and depression leading to minimal PO intake. Objective: Patient seen for dysphagia management and demonstrated the following: Pain: No acute signs of discomfort; reports nausea previously Respiratory Status: Room air, satting 95% Current Diet: Dysphagia soft Feeding / Oral Care Status: Patient requires cues and/or assistance due to a combination of post-stroke visual impairment and altered mental status Cognitive-Linguistic Status: Awake and alert Reduced attention span Easily frustrated Poor memory for recent events Limited insight into functional status Positioning: Pt up to chair Oral Motor Examination: No significant changes Bolus Presentations: Regular solid Oral Preparatory Phase Mastication: Sluggish Oral transit: Sluggish Oral containment: Complete, no anterior loss Oral stasis: Not visualized Pharyngeal Phase Swallow initiation: Appears timely Vocal quality change: None Cough / throat clear: None Pt complaint of food getting stuck: None Fatigue across trials: None Respiratory rate and respiratory swallow pattern: Unlabored and coordinated Esophageal Observations No overt signs of esophageal dysphagia noted. Education: Briefly discussed status and recommendations with patient and his . Patient status and swallow recommendations were discussed with nursing. Paged the primary team re: updated diet recommendations. Assessment: Myla was seen today for dysphagia management. He was awake, alert, and irritable but accepted minimal PO intake when provided space and independence. He seems to be tolerating limited intake well from a swallowing standpoint but frequently refuses to eat, likely related to a combination of poor appetite, nausea, limited food options, and post-stroke cognitive impairment. Recommend upgrading to a regular diet to broaden food choices. Continue providing oral supplements to optimize nutrition. Myla will continue to require physical assistance and/or cues for self-feeding due to post-stroke visual and motor impairments. We will continue to follow. Diagnosis: Oral and suspected pharyngeal dysphagia 2/2 post-stroke weakness, generalized deconditioning, and altered mental status (improving) Recommendations: Diet: Regular solids, thin liquids PO Medications: whole with liquid Aspiration Precautions: Sit upright for all PO intake Reduce environmental distractions Slow rate; small bites and sips Patient will require feeding assistance and/or cues at mealtimes Excellent oral care to reduce risk of aspiration pneumonia Delirium Precautions: Orientation: Provide visual and hearing aids Utilize cues such as calendars and clocks Encourage communication and reorient patient repeatedly Have familiar objects from patient's home in room Attempt consistency in nursing staff Allow television during the day with daily news Environment: Sleep hygiene (dim light at nighttime, bright during the day) Limit excess noise (staff, equipment, visitors at night) Ambulate or mobilize patient early and often Speech Therapy Goals: Pt will tolerate least restrictive diet without further respiratory decompensation. ONGOING Caregiver will be independent with aspiration precautions. ONGOING Pt will maintain hydration / nutrition with optimal safety and efficiency. ONGOING Caregiver will follow anti-delirium precautions with assist from staff as needed. ONGOING Plan: Therapy Frequency (TREASURY CONSULTANT Eval): 2-3 times/wk Patient's is in agreement with the plan of care. Total Minutes (Speech Language Pathology): 15 Tiarra Vasquez MS, [facility]-TREASURY CONSULTANT Speech-Language Pathologist Inpatient Rehabilitation Pager # [phone] * Salma Love, OT - 05/29/2023 1:21 PM EDT Occupational Therapy Treatment Note Treatment Number OT: 6 Patient profile: Myla 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 male admitted on 04/18/2023 for R cerebellar hemorrhage with IVH. EVD was placed for hydrocephalus. Pt was intubated at OSH for airway protection. Imaging of carotids and [place] reveal unexpected finding of type B aortic dissection. CTA CA with type B dissection extending from subclav to external iliac. Vascular surgery was consulted. Pt wasextubated on 04/23, but has been on the CIWA protocol. Social History: Patient lives in [place], [place] with his , Tiffany, who still works. They have 2 children 10 and 30 mins away. Home Setup: 1 PATRICIA, 1 level, small thressholds in the house, has a large walk-in shower w/ no seat but grab bar. Per his , he built the house. DME: grab bar, Baseline ADL/Mobility: Pt was independent w/ ADL's. He was somewhat limited because of arthritis inhis hips, but he ambulated w/o a device and his denies h/o falls. He was driving. They share cooking, but Tiffany does most other solderer electronic. 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 He enjoys woodworking and puttering. Hospital Events: 04/18/23: cerebellar hemorrhage and Type B aortic dissection; respiratory failure resulting in intubation and EVD placement 04/19/23; extubation 04/20/23:reintubation 04/22/23: extubation 04/27/23: reintubation 04/30/23: VAP 05/05/23: extubated Precautions/Special Considerations: DNI/DNR; at risk to fall, NGT, SBP< 160, HR<80, R UE PICC, supplemental 02, rebolledo; risk for delirium Interval History: Per 05/28: - NAOE, BP significantly improved to BP: (104-143)/(51-115) - Bun and Creatinine increased to 43 and 2.06 from 28 and 1.53 - Last Bowel Movement: 05/28/23 - Current hypertension regimen: Chlorthalidone 25mg Hydralazine 100mg TID Amlodipine 10mg Lisinopril 40mg Terazosin 1mg BID Tamsulosin 0.4mg daily S: I will stand one more time Pt reports when therapist prompted Pt to attempt an additional stand after Pt reported fatigue O: Patient seen for skilled OT treatment. Pt's Gina was present during session. Pt demonstrated the following: Self-care: Mod A for combing hair while seated in recliner chair Functional Mobility: Received in recliner chair Chair positioned facing bed rail Pt then participated in 3 sit<>stand transfers, standing for 1-2 minutes each time Pt sat on commode to attempt toileting routine Pt unable to void and requested to return to bed Pt able to perform 3 side steps towards R towards HOB Pt then perform turn with min A x2 towards the L Pt then stood from elevated bed to FWW, noted with R lateral lean Pt min A for sit to supine Pt then min A for boosting Pt left sidelying in bed with all needs within reach . Cognition: Behavior / Mood: alert, cooperative, confused, and impaired task initiation; intermittent frustration Alert and oriented to: person, did not formally assess Follows commands: 1-2 step, 100% of the time, requires increased time, and requires repetition Attention: distractible, difficulty attending to task / directions, and requires cues to redirect Safety awareness: decreased insight into deficits and moderate impairment Communication: difficult to understand, mumbling/dysarthric Vision: Pt reporting diplopia at ~1 ft away Pt reporting vertical and horizontal diplopia Pt unable to accurately read clock, but was able to read letters on therapist badge Will continue to assess Pt able to track in all planes; 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 Staff Communication: Patient status, treatment, and mobility recommendations discussed with nursing/other staff. ASSESSMENT: Myla was seen for progression of OT per plan of care. Pt noted with less confusion today. He is following most simple commands. He was able to perform transfers and grooming tasks. Continue to be at high risk for hospital acquired delirium. Myla will benefit from ongoing therapeutic interventions to achieve pt's and therapy goals Equipment needs at discharge: to be determined Anticipated Discharge Disposition: swing bed rehabilitation facility Daily schedule / Staff Recommendations: Open shades and turn on lights during the day/lights off at night, Set-up patient with ADL tasks, allow patient to complete ADL tasks as independently as possible Provide choices as able, encourage safe coping skills (such as music, reading, coloring, word search, journaling) Have patient sit up in recliner via lift or bed in chair position during the day as much as possible Sit upright for all meals/meal times Goals: To be achieved within 2 weeks, by 05/31/23: Patient will consistently follow simple one-step commands. Inconsistent each session Patient will consistently be oriented x 4 and CAM (-). Patient will be complete grooming tasks in supported sitting w/ min A. Patient will be mod A with LB dressing. Patient will transfer to the commode with Mod A and least restrictive assistive device. Patient will be mod A w/ a sponge bath in supported sitting. Patient will participate in further vision evaluation. Therapy Frequency (OT): 2-4 times/wk Total Minutes, Occupational Therapy: 30 ([id number]) Pager: [phone] Salma Love, JEAN 05/29/2023 Occupational Therapy Rehabilitation Department * Qi Dixon, PT - 05/29/2023 11:48 AM EDT Physical Therapy Intervention Note Treatment Number PT: 10 Total duration of encounter: 41 days Patient profile: Myla Acosta is a 67 year old male with unknown pmhx (per chart review, does notappear to have a PCP or follow up within the [facility] system) who presents as a transfer from an OSH for evaluation of a right cerebellar IPH. Per report, he woke up 04/17/23 with c/o vertigo and nausea/vomiting. Subsequent imaging studies revealed a right cerebellar IPH with ANIL. Initial Bps were noted to be in the 200s. Was started on a nicard gtt for BP control. Was subsequently intubated at the OSH for airway protection given worsening somnolence. Presented to [facility] where he was intubated. Brainstem reflexes were preserved. Decision was made to place EVD with NSG. Imaging of carotids and [place] reveal unexpected finding of type B aortic dissection. CTACA with type B dissection extending from subclav to external iliac. Vascular surgery was consulted.Pt was extubated on 04/23, but has been on the CIWA protocol. 04/18/23 EVD placed-removed on 05/01 & [facility] demonstrated improved hydrocephalus 04/19/23 extubated, required reintubation,extubated on 05/04 to 4L NC. Per discussion with , changed from HOSE SUSPENDER CUTTER to reinitiate medical management but without escalation of care. DNR/DNI. Goals of care have been discussed with the patient's , and she confirms that she would not wantintubation or dialysis and further states that she would not want him to return to the ICU under any circumstances. Interval Events: Per Neurology Service: - NAOE, BP significantly improved to BP: (104-143)/(51-115) - Bun and Creatinine increased to 43 and 2.06 from 28 and 1.53 -Continuing ceftriaxone for UTI. - Current hypertension regimen: Chlorthalidone 25mg Hydralazine 100mg TID Amlodipine 10mg Lisinopril 40mg Terazosin 1mg BID Tamsulosin 0.4mg daily Social History: Patient lives with spouse in a single level home, 1 STEP to enter/exit. Walk in shower with grab bars. Spouse works daytime babysitter. 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 Normally independent. Bilateral hip OA/pain butno device used normally. Independent ADLs and shared IADLs. Precautions/Special Considerations: DNR/DNI, HOB > 30 deg, SBP <160, HR <80, rebolledo catheter. Mobility and Positioning Recommendations: Pt. to utilize bed/chair positioning with nursing. Pt able to stand-pivot bed>< chair with 2 person assist. Encourage OOB daily; avoid delirium. Recommend fidget devices to occupy hands and avoid pulling lines/tubes without restraints Subjective: ???I guess I could stand again. Yes I feel myself leaning. Objective: Pt seen in conjunction with RN and OT for functional mobility & transfer out of chair back to bed to rest; been in chair several hours; initially worked on standing and marching in place. Pain: L hip arthritis. Prior to admit has L hip pain shorter, no shoe lifts. Reports nausea. Vital Signs: HR=87 @ rest in chair SpO2=97% RA BP= 115/58 (75) Behavior / Mood: Alert, following commands, cooperative. Vision: glasses, trialing eye patch R eye for double vision, OT cleared with team to use eye patch (alternate eyes). Bed Mobility: Sit > supine: returned to bed with Min A x 2 Rolling: rolled to L side to position with pillows Min A. Sitting balance: Static : improving but still leans to R slightly, able to correct to midline when cues given. Min Afor safety. Transfer: Sit > < stand: Min A x 2 with gait belt from recliner with bed railing to pull on. Sat on commode and stood from this with 2 assist. Stood few times and marched in placed holding bed rail. Gait: Marched in place twice. Step transfer, side stepped along bed in order to lower bed railing and step turn sat on bed with Mod A x 2 and gait belt, pt holding bed railings (initially lower bed rail and then upper bed rail). Exercise: LAQ sitting, reaching to bed railings, in bed SLR to place pillows, functional activity, rolling in bed. Education: patient reminded of Safety, role of PT, participation, bed mobility, functional activity as exercise and way to strengthen but only with staff assistance. Pt in bed L sidelying w/ pillow supports at end of session with all needs met, with call hurley in reach, bed alarm active. had stepped out for therapy session. Assessment: [facility] day #41 s/p right cerebellar IPH. Patient's vitals under better control (HR & BP), he seems less confused, not agitated like on weekend, able to follow directions to participate with encouragement able to push to get more activity from him. Generalize weakness in all limbs, weaker R side, sitting balance improved but still a challenge for him to maintain midline, falls towards his R. Tolerated standing holding bed railing to march in place. Sat to rest on commode. Positioned back in bed as he'd been in recliner chair for at least 3 hours. He is agreeable to DC to a rehab facility : I know I need to get stronger; acknowledged he feels weak & needs to walk before returning home. Pt will benefit from skilled therapy services throughout hospitalization to promote safety, independence, and provide developmental support/caregiver education. He is functioning well below his baseline level and would benefit from stay @ rehab facility. Discharge Recommendations: Based on the current findings, Anticipated Discharge Disposition (PT): acute rehabilitation facility when medically ready for hospital discharge. Consult Recommendations: No other consults recommended at this time. Equipment Needs: Anticipated Equipment Needs at Discharge (PT): to be determined Inpatient/Acute Care PT Plan: Therapy Frequency (PT): 2-4 times/wk for therapy. Goals: To be achieved by 06/16/23: ONGOING Pt. to consistently perform supine to/from sitting EOB with min A x1 Pt. to perform sit to/from stand transfers with min A x2 and LRAD Pt stand-step transfer bed >< chair with walker & Min A x 1. Pt. to ambulate 10 feet with min A x1 and least restrictive assistive device Pt to sit at EOB, participating in functional task for >5 minutes without LOB, with CG assistance Pt to tolerate use of overhead lift for OOB transfers MET 4/3 Pt to tolerate upright positioning with consistently stable vital signs. Time IN / OUT: 11:17-11:47 Total Minutes, Physical Therapy: 30 (TE-F x 2) Thank you for this consult. QI DIXON, PT Pager: [phone] Physical Therapy Inpatient Rehabilitation Department * Agustina Garg MD - 05/29/2023 7:24 AM EDT Neurology Progress Note Patient name: Myla Acosta Date of : 1955 PCP: Fransico Remy MD CC: R cerebellar IPH with VE HPI: Myla 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 He is s/p EVD placement on 04/17 and removal on 05/01. 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 24 hour / interval Hx: - NAOE, BP significantly improved to BP: (104-143)/(51-115) - Bun and Creatinine increased to 43 and 2.06 from 28 and 1.53 - Last Bowel Movement: 05/28/23 - Current hypertension regimen: Chlorthalidone 25mg Hydralazine 100mg TID Amlodipine 10mg Lisinopril 40mg Terazosin 1mg BID Tamsulosin 0.4mg daily Current Medications: Scheduled Meds: chlorthalidone 25 mg Oral Nightly hydrALAZINE 100 mg Oral TID cefTRIAXone 1 g Intravenous Q24H amLODIPine 10 mg Oral Daily tamsulosin 0.4 mg Oral Daily thiamine 100 mg Intravenous Daily lisinopriL 40 mg Oral Daily cloNIDine 0.2 mg Oral TID enoxaparin 40 mg Subcutaneous Nightly polyethylene glycoL (MIRALAX) oral powder 17 g Oral Daily senna-docusate 1 tablet Oral BID aspirin 300 mg Rectal Daily Or aspirin 81 mg Oral Daily FLUoxetine 20 mg Oral Daily QUEtiapine 100 mg Oral Nightly terazosin 1 mg Oral BID ergocalciferoL (vitamin D2) 50,000 Units Oral Weekly Physical Exam: Vitals: Temp: [36.4 ??C (97.6 ??F)-36.9 ??C (98.5 ??F)] Heart Rate: [82-112] Resp: [15-25] BP: (104-147)/(51-115) SpO2: [84 %-97 %] Heart Rate from SpO2: [78 bpm-114 bpm] Gen: Patient of apparent stated age, awake, alert, NAD Neuro Exam: MS: Awake, alert, up in chair, garbled speech. Able to follow simple commands stick out your tongue, show me your thumb. Able to follow cross body command right thumb to left ear. CN: PERRL, no eye patch on today, glasses on No apparent facial asymmetry Hearing intact to voice Motor: RUE/RLE: 5/5 LUE: 4/5 able to sustain antigravity for 10 seconds LLE: 3/5: drifts down to bed before 5 seconds Sensation: decreased sensation in LEFT hemibody Cerebellum: FTN intact on RUE. HTS intact on RLE. Labs: Last 3 wbc, hgb, hct plt Recent Labs 05/29/23 0410 05/28/23 0512 05/27/23 0620 WBC 5.8 6.9 7.6 HGB 9.8* 10.3* 9.9* HCT 30.2* 31.5* 30.1* PLATELET 233 234 232 Last 3 Lytes Recent Labs 05/29/23 0411 05/28/23 0510 05/27/23 0620 NA 138 137 137 K 3.9 3.6 4.0 CL 103 103 101 CO2 22 20* 23 BUN 34* 28* 27* CREATININE 2.06* 1.53* 1.84* Last 3 LFTs Recent Labs 05/21/23 1027 04/28/23 0120 04/23/23 0024 04/19/23 0035 AST 17 26 28 22 ALT 30 38 26 19 ALKPHOS 94 61 64 66 BILITOT 0.4 0.5 0.4 0.3 BILIDIR -- 0.3 0.2 0.1 Last Ca, Mg, Phos Recent Labs 05/29/23 0411 CALCIUM 9.9 PHOS 4.8* MAGNESIUM 0.86 Last 3 TFT Recent Labs 04/19/23 0035 TSH 0.74 Last 3 Lipids Recent Labs 05/07/23 0110 05/06/23 1050 05/06/23 0030 04/20/23 0110 04/19/23 0035 CHLPL -- -- -- -- 220 HDL -- -- -- -- 86 LDLDIRECT -- -- -- -- 129 TRIG 194 292 1,032 < > 78 < > = values in this interval not displayed. Last 3 HgbA1C Recent Labs 04/19/23 003 HA1C 6.0* Last CRP, SEDRATENo results for input(s): CRP, SEDRATE in the last 7068 hours. Radiology: CT Head 05/01 No change in ventricular caliber, intraventricular hemorrhage or right cerebellar hemorrhage with moderate surrounding edema. MRI Brain wwo 04/19 Recent infarct involving the posterior medial LEFT parietal lobe. Unchanged size of RIGHT cerebellar intraparenchymal hemorrhage with unchanged volume of intraventricular blood products. Vasogenic edema tracks along the superior right cerebellar peduncle into the right midbrain. Unchanged ventricular caliber with some hyperintense signal along the ventricular surface suggesting some transependymal CSF flow. No abnormal brain parenchymal or meningeal enhancement to suggest underlying malignancy. Small foci of susceptibility related signal loss separate from the areas of hemorrhage, which couldrepresent sequela of small vessel disease versus cerebral amyloid angiopathy. CTA COW 04/17 No evidence of aneurysm or vascular malformation. Bilateral Renal Artery Duplex 04/27 Comment: Limited exam due to time of day (study started at 1600), overlying bowel gas, patient positioning and patient body habitus. Right: Unable to study kidney, renal artery, and renal vein due to limitations listed above. Unableto determine patency. Left: Patent distal main renal artery with no evidence of hemodynamically significant stenosis. Patent main renal vein. Due to limitations listed above unable to study origin and proximal to mid renal artery; cannot exclude higher velocities/ stenosis here. EKG 04/26: TTE 04/18: There is severe concentric left ventricular hypertrophy. Left ventricular systolic function is normal. The left ventricular ejection fraction is 70% by Hester's biplane. There are no segmental wall motion abnormalities. The right ventricle is probably normal in size. Right ventricular function is probably normal. No significant valve disease. The aortic root is dilated. The diameter at the level of the sinuses of Valsalva is 4.2 cm. The ascending aorta is dilated. The maximum diameter of the proximal ascending aorta is 4.5 cm. No comparison study is available. Assessment and Plan: Myla 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 He is s/p EVD placement on 04/17 and removal on 05/01. 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 Pt has required copious anti-hypertensive agents in order to achieve adequate BP control; unfortunately this has been complicated by profound bradycardiaand, at times, episodes of brief asystole (05/13-05/14). Per family request, Palliative has been consulted and family meeting on 05/15. Pt is now DNR/DNI. He was downgraded to step down level to the vascular neurology service on 05/18 for further management of IVH as well as aortic dissection and other medical conditions as below. 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 Per discussion with , reinitiate medical management but without escalation of care. Goals of care have been discussed with the patient's , and she confirms that she would not want intubation or dialysis and further states that she would not want him to return to the ICU under any circumstances. Today's plan: Myla Acosta remains neurologically stable. Patient reported visual distortion previously and EEG completed and no discrete seizures, epileptiform discharges, rhythmic or periodic patterns were seen. Continuing ceftriaxone for UTI. Encouraging patient to hydrate with oral hydration. Blood pressure and heart rate have improved significantly since the medication changes made over the weekend. Patient is also continuing to have distorted vision that he has difficulty describing. Will reach out to our ophthalmology colleagues for a possible bedside evaluation. Will also reach out to our nephrology colleagues given the rise in BUN and Creatinine. 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 # concern for mediastinal hematoma # HFpEF - maintain SBP < 160mmHg, HR < 80bpm - current anti-hypertensive regimen: - --> d/c'd 2/2 asystole (05/13) - --> d/c'd 2/2 asystole (05/14) - lisinopril 40mg daily-->discontinued 05/19 (OVI)-> restarted at 20mg (05/23) -> increasedto 40mg (05/24) - terazosin 1mg BID - hydralazine 200mg q8h--> 150mg TID (05/27) - -->discontinued on 05/19 (relative hypotension) - aldactone 100mg daily (05/15) - decrease clonidine to 0.2mg q8h (05/14) --> held afternoon dose on 05/19 -Amlodipine 10mg daily 05/25 - Severe bradycardia, prolonged pauses (starting 05/13); likely medication-induced - prefer anticholinergics over pacing - events seemed to have improved throughout today with holding diltiazem and carvedilol - ASA 81mg daily resumed on 05/02 - Re-engage cardiology for BP management - Discuss metanephrine level with endocrinology - Renin:aldosterone ratio pending #Respiratory failure #Respiratory acidosis 05/19 - extubated 04/18, re-intubated 04/19 d/t agitation/hypoxia, extubated 04/21 , re- intubated 04/26 d/t mental status, now extubated and doing well (05/04) - does not want pt re-intubated under any circumstances or care escalated to ICU - underwent bronch 04/19 with suctioning of mucous plugs L>R - goal O2 sats > 92% - CPAP QHS as tolerated (tolerating 4h QHS) - airway clearance, 3% neb Q4H, Duonebs PRN as per RT # urinary retention # total body fluid overload # hyponatremia, likely diuresis-induced # Concern for ATN iso recent asystole and contrast - salt tab 3g TID --> decreased to 2g TID --> decreased to 1g TID (05/21) -> discontinued 05/22 - use saline flushes with enteral meds instead of water flushes - Vit D2 50,000 units weekly on Sundays - s/p 500 cc fluid bolus and mIVF, as well as FWB (200 cc TID was ordered) on 05/19; however discontinued fluids per medicine recs given concern for ATN with oliguria and fluid overload - Tamsulosin 0.4mg (05/24) # right brachial DVT - daily CBC - DVT ppx: SCDs, Lovenox 40mg # right wrist pressure injury - followed by Wound Care # Supportive care - Dysphagia soft -Tylenol PRN -Last Bowel Movement: 05/28/23 # DNR/DNI # NO ESCALATION OF CARE TO ICU Agustina Garg MD Neurology Vascular Neurology Pager [phone] Associated attestation - Andi Abbott MD - 05/29/2023 12:16 PM EDT Neurology Attending Attestation I evaluated the patient with the neurology resident. I have reviewed the medical records and patient's history, as well as the resident???s history and examination findings, and I agree with the details as written. My neurologic examination confirms the resident???s findings. We formulated the assessment and plan after a detailed discussion as documented. Andi Abbott MD Attending Neurologist * Edna Byrd, ZEESHAN - 05/28/2023 11:37 AM EDT Images from the original note were not included. Neurology Progress Note Patient name: Myla Acosta Date of : 1955 PCP: Fransico Remy MD CC: R cerebellar IPH with VE HPI: Myla 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 He is s/p EVD placement on 04/17 and removal on 05/01. 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 24 hour / interval Hx: - NAOE, continue to be tachycardic overnight - Improved creatinine and BUN --Encourage PO oral hydration -Episode of emesis -Last Bowel Movement: (S) 05/20/23 ---scheduled and PRN medications available -Up in the chair this morning Home Medications: No current facility-administered medications on file prior to encounter. No current outpatient medications on file prior to encounter. Current Medications: Scheduled Meds: hydrALAZINE 150 mg Oral TID cefTRIAXone 1 g Intravenous Q24H amLODIPine 10 mg Oral Daily tamsulosin 0.4 mg Oral Daily thiamine 100 mg Intravenous Daily lisinopriL 40 mg Oral Daily cloNIDine 0.2 mg Oral TID enoxaparin 40 mg Subcutaneous Nightly polyethylene glycoL (MIRALAX) oral powder 17 g Oral Daily senna-docusate 1 tablet Oral BID aspirin 300 mg Rectal Daily Or aspirin 81 mg Oral Daily FLUoxetine 20 mg Oral Daily QUEtiapine 100 mg Oral Nightly terazosin 1 mg Oral BID ergocalciferoL (vitamin D2) 50,000 Units Oral Weekly Physical Exam: Vitals: Temp: [36.4 ??C (97.6 ??F)-36.7 ??C (98.1 ??F)] Heart Rate: [85-134] Resp: [18-20] BP: (114-156)/(59-94) SpO2: [92 %-96 %] Heart Rate from SpO2: [86 bpm-108 bpm] Gen: Patient of apparent stated age, awake, alert, NAD Neuro Exam: MS: Awake, alert, up in chair, garbled speech. Able to follow simple commands stick out your tongue, show me your thumb. Able to follow cross body command right thumb to left ear. CN: PERRL, no eye patch on today, glasses on No apparent facial asymmetry Hearing intact to voice Motor: RUE/RLE: 06/10 LUE: 05/11 able to sustain antigravity for 10 seconds LLE: 04/10: drifts down to bed before 5 seconds Sensation: decreased sensation in LEFT hemibody Cerebellum: FTN intact on RUE. HTS intact on RLE. Labs: Last 3 wbc, hgb, hct plt Recent Labs 05/28/23 0512 05/27/23 0620 05/26/23 0250 WBC 6.9 7.6 6.6 HGB 10.3* 9.9* 9.9* HCT 31.5* 30.1* 30.1* PLATELET 234 232 204 Last 3 Lytes Recent Labs 05/28/23 0510 05/27/23 0620 05/26/23 0249 NA 137 137 138 K 3.6 4.0 3.6 CL 103 101 103 CO2 20* 23 24 BUN 28* 27* 18 CREATININE 1.53* 1.84* 1.37 Last 3 LFTs Recent Labs 05/21/23 1027 04/28/23 0120 04/23/23 0024 04/19/23 0035 AST 17 26 28 22 ALT 30 38 26 19 ALKPHOS 94 61 64 66 BILITOT 0.4 0.5 0.4 0.3 BILIDIR -- 0.3 0.2 0.1 Last Ca, Mg, Phos Recent Labs 05/28/23 0510 CALCIUM 9.7 PHOS 3.4 MAGNESIUM 0.78 Last 3 TFT Recent Labs 04/19/23 0035 TSH 0.74 Last 3 Lipids Recent Labs 05/07/23 0110 05/06/23 1050 05/06/23 0030 04/20/23 0110 04/19/23 0035 CHLPL -- -- -- -- 220 HDL -- -- -- -- 86 LDLDIRECT -- -- -- -- 129 TRIG 194 292 1,032 < > 78 < > = values in this interval not displayed. Last 3 HgbA1C Recent Labs 04/19/23 0035 HA1C 6.0* Last CRP, SEDRATENo results for input(s): CRP, SEDRATE in the last 7068 hours. Radiology: CT Head 05/01 No change in ventricular caliber, intraventricular hemorrhage or right cerebellar hemorrhage with moderate surrounding edema. MRI Brain wwo 04/19 Recent infarct involving the posterior medial LEFT parietal lobe. Unchanged size of RIGHT cerebellar intraparenchymal hemorrhage with unchanged volume of intraventricular blood products. Vasogenic edema tracks along the superior right cerebellar peduncle into the right midbrain. Unchanged ventricular caliber with some hyperintense signal along the ventricular surface suggesting some transependymal CSF flow. No abnormal brain parenchymal or meningeal enhancement to suggest underlying malignancy. Small foci of susceptibility related signal loss separate from the areas of hemorrhage, which couldrepresent sequela of small vessel disease versus cerebral amyloid angiopathy. CTA COW 04/17 No evidence of aneurysm or vascular malformation. Bilateral Renal Artery Duplex 04/27 Comment: Limited exam due to time of day (study started at 1600), overlying bowel gas, patient positioning and patient body habitus. Right: Unable to study kidney, renal artery, and renal vein due to limitations listed above. Unableto determine patency. Left: Patent distal main renal artery with no evidence of hemodynamically significant stenosis. Patent main renal vein. Due to limitations listed above unable to study origin and proximal to mid renal artery; cannot exclude higher velocities/ stenosis here. EKG 04/26: TTE 04/18: There is severe concentric left ventricular hypertrophy. Left ventricular systolic function is normal. The left ventricular ejection fraction is 70% by Hester's biplane. There are no segmental wall motion abnormalities. The right ventricle is probably normal in size. Right ventricular function is probably normal. No significant valve disease. The aortic root is dilated. The diameter at the level of the sinuses of Valsalva is 4.2 cm. The ascending aorta is dilated. The maximum diameter of the proximal ascending aorta is 4.5 cm. No comparison study is available. Assessment and Plan: Myla 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 He is s/p EVD placement on 04/17 and removal on 05/01. 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 Pt has required copious anti-hypertensive agents in order to achieve adequate BP control; unfortunately this has been complicated by profound bradycardiaand, at times, episodes of brief asystole (05/13-05/14). Per family request, Palliative has been consulted and family meeting on 05/15. Pt is now DNR/DNI. He was downgraded to step down level to the vascular neurology service on 05/18 for further management of IVH as well as aortic dissection and other medical conditions as below. 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 Per discussion with , reinitiate medical management but without escalation of care. Goals of care have been discussed with the patient's , and she confirms that she would not want intubation or dialysis and further states that she would not want him to return to the ICU under any circumstances. Today's plan: Myla Acosta remains neurologically stable. Patient reported visual distortion previously and EEG completed and no discrete seizures, epileptiform discharges, rhythmic or periodic patterns were seen. Continuing ceftriaxone for UTI. Encouraging patient to hydrate with oral hydration. Patient is due for a bowel movement as last BM several days ago. He has both scheduled and PRN medications available that need to be given today and discussed with primary RN. Patient had episode of emesis today. Will obtain abdominal xray. Continuing to optimize management of patient's blood pressure and HR with the assistance of Cardiology. His HR continues to be above Cardiology's goal, decreased hydralazi ne today as this can drive tachycardia. Patient is not medically ready at this time. 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 # concern for mediastinal hematoma # HFpEF - maintain SBP < 160mmHg, HR < 80bpm - current anti-hypertensive regimen: - --> d/c'd 2/2 asystole (05/13) - --> d/c'd 2/2 asystole (05/14) - lisinopril 40mg daily-->discontinued 05/19 (OVI)-> restarted at 20mg (05/23) -> increasedto 40mg (05/24) - terazosin 1mg BID - hydralazine 200mg q8h--> 150mg TID (05/27) - -->discontinued on 05/19 (relative hypotension) - aldactone 100mg daily (05/15) - decrease clonidine to 0.2mg q8h (05/14) --> held afternoon dose on 05/19 -Amlodipine 10mg daily 05/25 - Severe bradycardia, prolonged pauses (starting 05/13); likely medication-induced - prefer anticholinergics over pacing - events seemed to have improved throughout today with holding diltiazem and carvedilol - ASA 81mg daily resumed on 05/02 - Re-engage cardiology for BP management - Discuss metanephrine level with endocrinology - Renin:aldosterone ratio pending #Respiratory failure #Respiratory acidosis 05/19 - extubated 04/18, re-intubated 04/19 d/t agitation/hypoxia, extubated 04/21 , re- intubated 04/26 d/t mental status, now extubated and doing well (05/04) - does not want pt re-intubated under any circumstances or care escalated to ICU - underwent bronch 04/19 with suctioning of mucous plugs L>R - goal O2 sats > 92% - CPAP QHS as tolerated (tolerating 4h QHS) - airway clearance, 3% neb Q4H, Duonebs PRN as per RT # urinary retention # total body fluid overload # hyponatremia, likely diuresis-induced # Concern for ATN iso recent asystole and contrast - salt tab 3g TID --> decreased to 2g TID --> decreased to 1g TID (05/21) -> discontinued 05/22 - use saline flushes with enteral meds instead of water flushes - Vit D2 50,000 units weekly on Sundays - s/p 500 cc fluid bolus and mIVF, as well as FWB (200 cc TID was ordered) on 05/19; however discontinued fluids per medicine recs given concern for ATN with oliguria and fluid overload - Tamsulosin 0.4mg (05/24) # right brachial DVT - daily CBC - DVT ppx: SCDs, Lovenox 40mg # right wrist pressure injury - followed by Wound Care # Supportive care - Dysphagia soft -Tylenol PRN -Last Bowel Movement: (S) 05/20/23 # DNR/DNI # NO ESCALATION OF CARE TO ICU Edna Byrd, ZEESHAN Neurology Vascular Neurology Pager [phone] * Ronnie Paulino RN - 05/28/2023 12:25 AM EDT Page Sent Successfully Page Confirmation To Pager number: [phone] From Submitter: Ronnie Paulino Urgency Level: Callback Number: [phone] The following Message was sent: [] - Callback:[phone] [id number] Bussiere: Notifying per order, HR 96-116, not a change, order to notify >80 - Ronnie Paulino The following status was returned from the piano mechanic apprentice: Page for [phone] successfully sent to [phone] having status of Available. * Kiesha Donaldson PTA - 05/27/2023 3:29 PM EDT Physical Therapy Note: Attempted to see patient this afternoon and he was very angry and agitated. Patient adamantly declined therapy. He was focused on his vision and how he could not see anything correctly. PT will continue to follow and see as appropriate. Kiesha Donaldson PTA Pager #[phone] * Edna Byrd APRN - 05/27/2023 8:44 AM EDT Images from the original note were not included. Neurology Progress Note Patient name: Myla Acosta Date of : 1955 PCP: Fransico Remy MD CC: R cerebellar IPH with VE HPI: Myla 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 He is s/p EVD placement on 04/17 and removal on 05/01. 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 - Increased creatinine and BUN --Encourage PO oral hydration - Started on Ceftriaxone yesterday for UTI -Last Bowel Movement: (S) 05/20/23 ---scheduled and PRN medications available Home Medications: No current facility-administered medications on file prior to encounter. No current outpatient medications on file prior to encounter. Current Medications: Scheduled Meds: cefTRIAXone 1 g Intravenous Q24H amLODIPine 10 mg Oral Daily tamsulosin 0.4 mg Oral Daily thiamine 100 mg Intravenous Daily lisinopriL 40 mg Oral Daily cloNIDine 0.2 mg Oral TID enoxaparin 40 mg Subcutaneous Nightly polyethylene glycoL (MIRALAX) oral powder 17 g Oral Daily senna-docusate 1 tablet Oral BID hydrALAZINE 200 mg Oral TID aspirin 300 mg Rectal Daily Or aspirin 81 mg Oral Daily FLUoxetine 20 mg Oral Daily QUEtiapine 100 mg Oral Nightly terazosin 1 mg Oral BID ergocalciferoL (vitamin D2) 50,000 Units Oral Weekly Physical Exam: Vitals: Temp: [36.4 ??C (97.6 ??F)-36.8 ??C (98.2 ??F)] Heart Rate: [85-117] Resp: -- BP: (100-176)/(58-92) SpO2: [86 %-98 %] Heart Rate from SpO2: [86 bpm-118 bpm] Gen: Patient of apparent stated age, awake, alert, NAD Neuro Exam: MS: Awake, alert, garbled speech. Able to follow simple commands stick out your tongue, show me your thumb. Able to follow cross body command right thumb to left ear. CN: Eye patch over right eye No apparent facial asymmetry Hearing intact to voice Motor: RUE/RLE: 5/5 LUE: 4/5 able to sustain antigravity for 10 seconds LLE: 3/5: drifts down to bed before 5 seconds Sensation: decreased sensation in LEFT hemibody Cerebellum: FTN intact on RUE. HTS intact on RLE. Labs: Last 3 wbc, hgb, hct plt Recent Labs 05/27/23 0620 05/26/23 0250 05/25/23 0047 WBC 7.6 6.6 6.4 HGB 9.9* 9.9* 10.1* HCT 30.1* 30.1* 30.0* PLATELET 232 204 209 Last 3 Lytes Recent Labs 05/27/23 0620 05/26/23 0249 05/25/23 0047 NA 137 138 137 K 4.0 3.6 3.7 CL 101 103 102 CO2 23 24 25 BUN 27* 18 18 CREATININE 1.84* 1.37 1.20 Last 3 LFTs Recent Labs 05/21/23 1027 04/28/23 0120 04/23/23 0024 04/19/23 0035 AST 17 26 28 22 ALT 30 38 26 19 ALKPHOS 94 61 64 66 BILITOT 0.4 0.5 0.4 0.3 BILIDIR -- 0.3 0.2 0.1 Last Ca, Mg, Phos Recent Labs 05/27/23 0620 CALCIUM 9.7 PHOS 4.5 MAGNESIUM 0.86 Last 3 TFT Recent Labs 04/19/23 0035 TSH 0.74 Last 3 Lipids Recent Labs 05/07/23 0110 05/06/23 1050 05/06/23 0030 04/20/23 0110 04/19/23 0035 CHLPL -- -- -- -- 220 HDL -- -- -- -- 86 LDLDIRECT -- -- -- -- 129 TRIG 194 292 1,032 < > 78 < > = values in this interval not displayed. Last 3 HgbA1C Recent Labs 04/19/23 003 HA1C 6.0* Last CRP, SEDRATENo results for input(s): CRP, SEDRATE in the last 7068 hours. Radiology: CT Head 05/01 No change in ventricular caliber, intraventricular hemorrhage or right cerebellar hemorrhage with moderate surrounding edema. MRI Brain wwo 04/19 Recent infarct involving the posterior medial LEFT parietal lobe. Unchanged size of RIGHT cerebellar intraparenchymal hemorrhage with unchanged volume of intraventricular blood products. Vasogenic edema tracks along the superior right cerebellar peduncle into the right midbrain. Unchanged ventricular caliber with some hyperintense signal along the ventricular surface suggesting some transependymal CSF flow. No abnormal brain parenchymal or meningeal enhancement to suggest underlying malignancy. Small foci of susceptibility related signal loss separate from the areas of hemorrhage, which couldrepresent sequela of small vessel disease versus cerebral amyloid angiopathy. CTA COW 04/17 No evidence of aneurysm or vascular malformation. Bilateral Renal Artery Duplex 04/27 Comment: Limited exam due to time of day (study started at 1600), overlying bowel gas, patient positioning and patient body habitus. Right: Unable to study kidney, renal artery, and renal vein due to limitations listed above. Unableto determine patency. Left: Patent distal main renal artery with no evidence of hemodynamically significant stenosis. Patent main renal vein. Due to limitations listed above unable to study origin and proximal to mid renal artery; cannot exclude higher velocities/ stenosis here. EKG 04/26: TTE 04/18: There is severe concentric left ventricular hypertrophy. Left ventricular systolic function is normal. The left ventricular ejection fraction is 70% by Hester's biplane. There are no segmental wall motion abnormalities. The right ventricle is probably normal in size. Right ventricular function is probably normal. No significant valve disease. The aortic root is dilated. The diameter at the level of the sinuses of Valsalva is 4.2 cm. The ascending aorta is dilated. The maximum diameter of the proximal ascending aorta is 4.5 cm. No comparison study is available. Assessment and Plan: Myla 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 He is s/p EVD placement on 04/17 and removal on 05/01. 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 Pt has required copious anti-hypertensive agents in order to achieve adequate BP control; unfortunately this has been complicated by profound bradycardiaand, at times, episodes of brief asystole (05/13-05/14). Per family request, Palliative has been consulted and family meeting on 05/15. Pt is now DNR/DNI. He was downgraded to step down level to the vascular neurology service on 05/18 for further management of IVH as well as aortic dissection and other medical conditions as below. 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 Per discussion with , reinitiate medical management but without escalation of care. Goals of care have been discussed with the patient's , and she confirms that she would not want intubation or dialysis and further states that she would not want him to return to the ICU under any circumstances. Today's plan: Myla Acosta remains neurologically stable. Patient reported visual distortion yesterday and EEG was completed yesterday and no discrete seizures, epileptiform discharges, rhythmic or periodic patterns were seen. Reassuringly, patient denies any recurrent diplopia or visual changes today duringassessment. He was started on ceftriaxone for UTI yesterday and is tolerating well. Encouraging patient to hydrate with oral hydration. Patient is due for a bowel movement as last BM several days ago. He has both scheduled and PRN medications available that need to be given today and discussed withprimary RN. Continuing to optimize management of patient's blood pressure with the assistance of Car diology. Patient is not medically ready at this time. 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 # concern for mediastinal hematoma # HFpEF - maintain SBP < 160mmHg, HR < 80bpm - current anti-hypertensive regimen: - --> d/c'd 2/2 asystole (05/13) - --> d/c'd 2/2 asystole (05/14) - lisinopril 40mg daily-->discontinued 05/19 (OVI)-> restarted at 20mg (05/23) -> increasedto 40mg (05/24) - terazosin 1mg BID - hydralazine 200mg q8h - -->discontinued on 05/19 (relative hypotension) - aldactone 100mg daily (05/15) - decrease clonidine to 0.2mg q8h (05/14) --> held afternoon dose on 05/19 -Amlodipine 10mg daily 05/25 - Severe bradycardia, prolonged pauses (starting 05/13); likely medication-induced - prefer anticholinergics over pacing - events seemed to have improved throughout today with holding diltiazem and carvedilol - ASA 81mg daily resumed on 05/02 - Re-engage cardiology for BP management - Discuss metanephrine level with endocrinology - Renin:aldosterone ratio pending #Respiratory failure #Respiratory acidosis 05/19 - extubated 04/18, re-intubated 04/19 d/t agitation/hypoxia, extubated 04/21 , re- intubated 04/26 d/t mental status, now extubated and doing well (05/04) - does not want pt re-intubated under any circumstances or care escalated to ICU - underwent bronch 04/19 with suctioning of mucous plugs L>R - goal O2 sats > 92% - CPAP QHS as tolerated (tolerating 4h QHS) - airway clearance, 3% neb Q4H, Duonebs PRN as per RT # urinary retention # total body fluid overload # hyponatremia, likely diuresis-induced # Concern for ATN iso recent asystole and contrast - salt tab 3g TID --> decreased to 2g TID --> decreased to 1g TID (05/21) -> discontinued 05/22 - use saline flushes with enteral meds instead of water flushes - Vit D2 50,000 units weekly on Sundays - s/p 500 cc fluid bolus and mIVF, as well as FWB (200 cc TID was ordered) on 05/19; however discontinued fluids per medicine recs given concern for ATN with oliguria and fluid overload - Tamsulosin 0.4mg (05/24) # right brachial DVT - daily CBC - DVT ppx: SCDs, Lovenox 40mg # right wrist pressure injury - followed by Wound Care # Supportive care - Dysphagia soft -Tylenol PRN -Last Bowel Movement: (S) 05/20/23 # DNR/DNI # NO ESCALATION OF CARE TO ICU Edna Byrd APRN Neurology Vascular Neurology Pager [phone] * Ronnie Paulino RN - 05/26/2023 9:00 PM EDT Page Sent Successfully Page Confirmation To Pager number: [phone] From Submitter: Ronnie Paulino Urgency Level: FYI Callback Number: [phone] The following Message was sent: [] - Callback:[phone] [id number] [place]ussiere: Pt in and out of trigem, cards involved w/care, HR 95 as well - Ronnie Paulino The following status was returned from the piano mechanic apprentice: Page for [phone] successfully sent to [phone] having status of Available. * Agustina Garg MD - 05/26/2023 11:21 AM EDT Images from the original note were not included. Neurology Progress Note Patient name: Myla Acosta Date of : 1955 PCP: Fransico Remy MD CC: R cerebellar IPH with VE HPI: Myla 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 He is s/p EVD placement on 04/17 and removal on 05/01. 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 - BP: (127-160)/(70-98) - Labs largely unremarkable. - Found to have UTI on UA yesterday - Continuing to complain of distorted vision Home Medications: No current facility-administered medications on file prior to encounter. No current outpatient medications on file prior to encounter. Current Medications: Scheduled Meds: cefTRIAXone 1 g Intravenous Q24H tamsulosin 0.4 mg Oral Daily thiamine 100 mg Intravenous Daily lisinopriL 40 mg Oral Daily cloNIDine 0.2 mg Oral TID enoxaparin 40 mg Subcutaneous Nightly polyethylene glycoL (MIRALAX) oral powder 17 g Oral Daily senna-docusate 1 tablet Oral BID hydrALAZINE 200 mg Oral TID aspirin 300 mg Rectal Daily Or aspirin 81 mg Oral Daily FLUoxetine 20 mg Oral Daily QUEtiapine 100 mg Oral Nightly terazosin 1 mg Oral BID ergocalciferoL (vitamin D2) 50,000 Units Oral Weekly Physical Exam: Vitals: Temp: [36.4 ??C (97.6 ??F)-37.3 ??C (99.1 ??F)] Heart Rate: [95-151] Resp: [30] BP: (127-160)/(70-98) SpO2: [86 %-98 %] Heart Rate from SpO2: [95 bpm-138 bpm] Gen: Patient of apparent stated age, awake, alert, NAD Neuro Exam: MS: Awake, alert, garbled speech but comprehensible at times (states , 's name correctly). Disoriented to time, location, age, reason for hospitalization. Unable to identify that he is in a hospital when given choices. Intermittently following simple commands. CN: PERRL, VOR Intact No apparent facial asymmetry Hearing intact to voice Motor: Purposeful antigravity movement in all 4 extremities Sensation: AVI due to patient being easily distracted; deferred noxious stimuli due to patient previously striking out at staff when agitated Labs: Last 3 wbc, hgb, hct plt Recent Labs 05/26/23 0250 05/25/23 0047 05/24/23 0512 WBC 6.6 6.4 7.4 HGB 9.9* 10.1* 9.7* HCT 30.1* 30.0* 29.1* PLATELET 204 209 218 Last 3 Lytes Recent Labs 05/26/23 0249 05/25/23 0047 05/24/23 0512 NA 138 137 138 K 3.6 3.7 4.0 CL 103 102 102 CO2 24 25 26 BUN 18 18 18 CREATININE 1.37 1.20 1.19 Last 3 LFTs Recent Labs 05/21/23 1027 04/28/23 0120 04/23/23 0024 04/19/23 0035 AST 17 26 28 22 ALT 30 38 26 19 ALKPHOS 94 61 64 66 BILITOT 0.4 0.5 0.4 0.3 BILIDIR -- 0.3 0.2 0.1 Last Ca, Mg, Phos Recent Labs 05/26/23 0249 CALCIUM 9.4 PHOS 3.8 MAGNESIUM 0.81 Last 3 TFT Recent Labs 04/19/23 0035 TSH 0.74 Last 3 Lipids Recent Labs 05/07/23 0110 05/06/23 1050 05/06/23 0030 04/20/23 0110 04/19/23 0035 CHLPL -- -- -- -- 220 HDL -- -- -- -- 86 LDLDIRECT -- -- -- -- 129 TRIG 194 292 1,032 < > 78 < > = values in this interval not displayed. Last 3 HgbA1C Recent Labs 04/19/23 003 HA1C 6.0* Last CRP, SEDRATENo results for input(s): CRP, SEDRATE in the last 7068 hours. Radiology: CT Head 05/01 No change in ventricular caliber, intraventricular hemorrhage or right cerebellar hemorrhage with moderate surrounding edema. MRI Brain wwo 04/19 Recent infarct involving the posterior medial LEFT parietal lobe. Unchanged size of RIGHT cerebellar intraparenchymal hemorrhage with unchanged volume of intraventricular blood products. Vasogenic edema tracks along the superior right cerebellar peduncle into the right midbrain. Unchanged ventricular caliber with some hyperintense signal along the ventricular surface suggesting some transependymal CSF flow. No abnormal brain parenchymal or meningeal enhancement to suggest underlying malignancy. Small foci of susceptibility related signal loss separate from the areas of hemorrhage, which couldrepresent sequela of small vessel disease versus cerebral amyloid angiopathy. CTA COW 04/17 No evidence of aneurysm or vascular malformation. Bilateral Renal Artery Duplex 04/27 Comment: Limited exam due to time of day (study started at 1600), overlying bowel gas, patient positioning and patient body habitus. Right: Unable to study kidney, renal artery, and renal vein due to limitations listed above. Unableto determine patency. Left: Patent distal main renal artery with no evidence of hemodynamically significant stenosis. Patent main renal vein. Due to limitations listed above unable to study origin and proximal to mid renal artery; cannot exclude higher velocities/ stenosis here. EKG 04/26: TTE 04/18: There is severe concentric left ventricular hypertrophy. Left ventricular systolic function is normal. The left ventricular ejection fraction is 70% by Hester's biplane. There are no segmental wall motion abnormalities. The right ventricle is probably normal in size. Right ventricular function is probably normal. No significant valve disease. The aortic root is dilated. The diameter at the level of the sinuses of Valsalva is 4.2 cm. The ascending aorta is dilated. The maximum diameter of the proximal ascending aorta is 4.5 cm. No comparison study is available. Assessment and Plan: Myla 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 He is s/p EVD placement on 04/17 and removal on 05/01. 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 Pt has required copious anti-hypertensive agents in order to achieve adequate BP control; unfortunately this has been complicated by profound bradycardiaand, at times, episodes of brief asystole (05/13-05/14). Per family request, Palliative has been consulted and family meeting on 05/15. Pt is now DNR/DNI. He was downgraded to step down level to the vascular neurology service on 05/18 for further management of IVH as well as aortic dissection and other medical conditions as below. 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 Per discussion with , reinitiate medical management but without escalation of care. Goals of care have been discussed with the patient's , and she confirms that she would not want intubation or dialysis and further states that she would not want him to return to the ICU under any circumstances. No escalation of care, but plan to continue management with conservative measures as able in stepdown. Today's plan: Will continue to monitor blood pressure while aiming for euvolemiua with occasional fluid boluses. Will engage our cardiology colleagues regarding recommendations for blood pressure control given he continues to need high doses of antihypertensives. Will also discuss the significance if elevated met anephrines with out endocrinology colleagues and see if any further workup is recommended. He was also found to have a UTI on UA yesterday. Rebolledo was exchanged and he is being started on Ceftriaxone. Regarding his visual complaints of visual distortion versus double vision, we are obtaining an EEG as he does have prior diffusion restriction in the left occipital lobe. 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 # concern for mediastinal hematoma # HFpEF - maintain SBP < 160mmHg, HR < 80bpm - current anti-hypertensive regimen: - --> d/c'd 2/2 asystole (05/13) - --> d/c'd 2/2 asystole (05/14) - lisinopril 40mg daily-->discontinued 05/19 (OVI)-> restarted at 20mg (05/23) -> increasedto 40mg (05/24) - terazosin 1mg BID - hydralazine 200mg q8h - -->discontinued on 05/19 (relative hypotension) - aldactone 100mg daily (05/15) - decrease clonidine to 0.2mg q8h (05/14) --> held afternoon dose on 05/19 - Severe bradycardia, prolonged pauses (starting 05/13); likely medication-induced - prefer anticholinergics over pacing - events seemed to have improved throughout today with holding diltiazem and carvedilol - ASA 81mg daily resumed on 05/02 - Re-engage cardiology for BP management - Discuss metanephrine level with endocrinology - Renin:aldosterone ratio pending #Respiratory failure #Respiratory acidosis 05/19 - extubated 04/18, re-intubated 04/19 d/t agitation/hypoxia, extubated 04/21 , re- intubated 04/26 d/t mental status, now extubated and doing well (05/04) - does not want pt re-intubated under any circumstances or care escalated to ICU - underwent bronch 04/19 with suctioning of mucous plugs L>R - goal O2 sats > 92% - CPAP QHS as tolerated (tolerating 4h QHS) - airway clearance, 3% neb Q4H, Duonebs PRN as per RT # urinary retention # total body fluid overload # hyponatremia, likely diuresis-induced # Concern for ATN iso recent asystole and contrast - salt tab 3g TID --> decreased to 2g TID --> decreased to 1g TID (05/21) -> discontinued 05/22 - use saline flushes with enteral meds instead of water flushes - Vit D2 50,000 units weekly on Sundays - s/p 500 cc fluid bolus and mIVF, as well as FWB (200 cc TID was ordered) on 05/19; however discontinued fluids per medicine recs given concern for ATN with oliguria and fluid overload - Tamsulosin 0.4mg (05/24) # right brachial DVT - daily CBC - DVT ppx: SCDs, SQH # right wrist pressure injury - followed by Wound Care # Prophylaxis heparin 5000units SC Q8H # Supportive care - Dysphagia soft -Tylenol PRN # DNR/DNI # NO ESCALATION OF CARE TO ICU Agustina Garg MD Neurology Vascular Neurology Pager [phone] Associated attestation - Adni Abbott MD - 05/26/2023 3:21 PM EDT Neurology Attending Attestation I evaluated the patient with the neurology resident. I have reviewed the medical records and patient's history, as well as the resident???s history and examination findings, and I agree with the details as written. My neurologic examination confirms the resident???s findings. We formulated the assessment and plan after a detailed discussion as documented. Andi Abbott MD Attending Neurologist * Floyd Hartley - 05/26/2023 12:33 AM EDT Tech spoke to patient regarding EEG, patient declined twice with the second time becoming agitated. * Tiffany French RN - 05/25/2023 6:42 PM EDT Hrs sustaining 110-119s while resting. Order parameter to page provider for HR >80. paged back. EKG obtained. Waiting for trops to result. * Tiffany French RN - 05/25/2023 5:56 PM EDT 05/25/23 1615 Vital Signs Temp 37.3 ??C (99.1 ??F) Temp src Axillary Heart Rate from SpO2 (!) 123 bpm Heart Rate (!) 119 Heart Rate Source Monitor Cardiac Rhythm ST BP Monitoring Non-Invasive BP 137/86 MAP (NBP) 100 mmHg BP Method Automatic BP Location (NBP) Left arm Patient Position Sitting Resp 30 SpO2 97 % Pulse Oximetry Probe Reposition Probe Placed On (Pulse Ox) Left:;toe Provider was notified of ST-SVT HR 120-155s QTC 600s sustaining for 20minutes while working with PT. Sinus tach was captured on EKG, elevated T wave abnormality. Pt vomitted x2 after therapy session and c/o dizziness. Plan: 1G mag given Trending trops Renin activity and aldosterone labs EKG obtained Zofran given Pt responded well to zofran. Lab Coordinator inquired about changing HR parameters since resting HR is typically 90-100s. Awaiting response. ST-SVT now resolved. HR 98-101, BP 135/84. * Qi Dixon, PT - 05/25/2023 4:28 PM EDT Physical Therapy Intervention Note Treatment Number PT: 9 Total duration of encounter: 37 days Patient profile: Myla Acosta is a 67 year old male with unknown pmhx (per chart review, does notappear to have a PCP or follow up within the [facility] system) who presents as a transfer from an OSH for evaluation of a right cerebellar IPH. Per report, he woke up 04/17/23 with c/o vertigo and nausea/vomiting. Subsequent imaging studies revealed a right cerebellar IPH with ANIL. Initial Bps were noted to be in the 200s. Was started on a nicard gtt for BP control. Was subsequently intubated at the OSH for airway protection given worsening somnolence. Presented to [facility] where he was intubated. Brainstem reflexes were preserved. Decision was made to place EVD with NSG. Imaging of carotids and [place] of nugent reveal unexpected finding of type B aortic dissection. CTACA with type B dissection extending from subclav to external iliac. Vascular surgery was consulted.Pt was extubated on 04/23, but has been on the CIWA protocol. 04/18/23 EVD placed-removed on 05/01 & CTH demonstrated improved hydrocephalus 04/19/23 extubated, required reintubation,extubated on 05/04 to 4L NC. Per discussion with , changed from HOSE SUSPENDER CUTTER to reinitiate medical management but without escalation of care. DNR/DNI. Goals of care have been discussed with the patient's , and she confirms that she would not wantintubation or dialysis and further states that she would not want him to return to the ICU under any circumstances. Interval Events: Per Neurology Service: -NAOE, sleeping comfortably this morning. - started Tamsulosin for urinary retention in hopes of getting his rebolledo out. -Increasing Lisinopril to 40mg. -episodes of tachycardia-Telemetry, 12 lead EKG Per CM note: referral to [facility] Social History: Patient lives with spouse in a single level home, 1 STEP to enter/exit. Walk in shower with grab bars. Spouse works daytime babysitter. 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 Normally independent. Bilateral hip OA/pain butno device used normally. Independent ADLs and shared IADLs. Precautions/Special Considerations: DNR/DNI, HOB > 30 deg, SBP <160, HR <80, rebolledo catheter, PICC in R UE - risk for delirium. Mobility and Positioning Recommendations: Pt. to utilize bed/chair positioning with nursing. Recommend fidget devices to occupy hands and avoid pulling lines/tubes without restraints EPM Level 2: Bed-Chair position, Mechanically lift to chair. Lift to chair daily please Subjective: ???I feel myself leaning that way. I know, I'm trying, give me a minute. I just hadsurgery yesterday right? Objective: Pt seen for with support from his spouse Tete & in conjunction with mobility techfor functional mobility & use of Barivest Pain: L hip arthritis. Reports nausea. Notified RN as HR high as well during activity. Vital Signs: HR=98-152 once with ambulation SpO2=95% RA BP= 137/86 (100) Behavior / Mood: Alert, following commands with extra time to perform, doesn't like to be hurried. Disoriented to time. He's not fully aware of his health for this admission and deficits but with reminders says O not my heart, I had a drain for my brain. Vision: glasses, trialed eye patch R eye for double vision, OT cleared with team to use. Bed Mobility: Assist to don pants in supine, then bridged to help lift pants over hips. Bridged to place Donald-vest and fastened in supine. Sit > supine: HOB raised 20* - moved to L side, mod A but had vest on, leaning to R once sittingwith min A. Sitting balance: Once scooted to edge worked on maintaining midline; R lean and he sates he could feel but seated onair mattress also. Attached donald-vest to overhead lift and encouraged him to do work of standing. Transfer: Sit > stand: from EOB to walker with person each side, lean towards his R, donald- vest accompaniedto stand and until encouraged to get stance of balance on walker. Lowered to sit EOB to rest half way and walked 2nd time to chair. Gait: Amb in donald-vest with FWW forward about 6' then turned and 6' back to sit EOB, staff each side, cues to stay in close to walker, cues to concentrate on placement of R LE, R LE flexed some stepsso donald-vest helping quite a lot. After seated rest, amb another 6' over to recliner chair, high HR so RN came in to get 12 lead EKG. Exercise: Supported sitting in chair he could perform LAQ, ankle circles, & reminded to performas he can while seated. Education: patient reminded of Safety, use of Donald-vest for everyone's safety and allowing him to stand to walk, role of PT, participation, bed mobility, lines/tubes, and plan of care, with reminders. Pt left seated in recliner chair at end of session with all needs met, with call hurley in reach, withseat alarm active,& drinks & needs on bedside table in reach to his R, in room. Nursing can use split-leg sling to lift back to bed later. Assessment: Myla [facility] day #37 s/p right cerebellar IPH. Patient more alert yet confused but able to participate with explanation and encouragement; support of spouse in room which assures him. Cooperative and following simple one step commands, moving all limbs, weaker R side. Tolerated Donald-vest well and helpful to allow him to stand and focus on his steps and balance with use ofwalker. Unfortunately HR high so didn't do more walking. Positioned upright & supported sittingin chair, improved sitting balance, and able to perform LE exercise. He is agreeable to more rehab I know I need more rehab; acknowledged he feels weak. Pt will benefit from skilled therapy services throughout hospitalization to promote safety, independence, and provide developmental support/caregiver education. He is functioning well below his baseline level and would benefit from stay @ rehab facility. Discharge Recommendations: Based on the current findings, Anticipated Discharge Disposition (PT): acute rehabilitation facility when medically ready for hospital discharge. Consult Recommendations: No other consults recommended at this time. Equipment Needs: Anticipated Equipment Needs at Discharge (PT): to be determined Inpatient/Acute Care PT Plan: Therapy Frequency (PT): 2-4 times/wk for therapy. Goals: To be achieved by 06/06/23: ONGOING Pt. to consistently perform supine to/from sitting EOB with min A x1 Pt. to perform sit to/from stand transfers with min A x2 and LRAD Pt. to ambulate 10 feet with min A x1 and least restrictive assistive device Pt to sit at EOB, participating in functional task for >5 minutes without LOB, with CG assistance Pt to tolerate use of overhead lift for OOB transfers MET 4/3 Pt to tolerate upright positioning with consistently stable vital signs. Time IN / OUT: 15:24-16:15 Total Minutes, Physical Therapy: 51 (TE-F x 3) Thank you for this consult. QI DIXON, PT Pager: [phone] Physical Therapy Inpatient Rehabilitation Department * Malissa Campa, RD - 05/25/2023 9:16 AM EDT Nutrition Progress Note Myla 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 male with unknown pmhx (no PCP or listed medications) who presents asa transfer from an OSH for evaluation of a right cerebellar IPH. Now s/p R EVD placement 04/17 givenhydrocephalus. Reason for Assessment: Follow-up Nutrition Recommendations: Diet advanced to Dysphagia Soft on 05/21. Continue [place] Instant Breakfast shakes TID to meals. Tube feeds discontinued on 05/19. Pt/family decline replacement of NGT. Current Nutrition Regimen: Active Orders Diet Dysphagia Soft Diet Frequency: Effective Now Number of Occurrences: Until Specified Assessment: Lab Results Component Value Date NA 137 05/25/2023 K 3.7 05/25/2023 CL 102 05/25/2023 CO2 25 05/25/2023 BUN 18 05/25/2023 CREATININE 1.20 05/25/2023 ESTGFR 67 05/25/2023 MAGNESIUM 0.71 05/25/2023 CALCIUM 9.9 05/25/2023 PHOS 3.6 05/25/2023 AST 17 05/21/2023 ALT 30 05/21/2023 ALKPHOS 94 05/21/2023 BILITOT 0.4 05/21/2023 BILIDIR 0.3 04/28/2023 TRIG 194 05/07/2023 HA1C 6.0 (H) 04/19/2023 [id number] 606 05/22/2023 25OHVITD 13 (L) 04/29/2023 SFOLATE 15.1 05/22/2023 IRON 25 (L) 04/29/2023 Lab Results Component Value Date POCGLU 103 05/25/2023 POCGLU 107 05/24/2023 POCGLU 136 05/24/2023 POCGLU 107 05/24/2023 Patient Lines/Drains/Airways Status Active Nutritional LDAs Name Placement date Placement time Site Days PICC Line 04/20/23 1410 Triple Lumen 5 Fr brachial vein, right 04/20/23 1410 -- 35 Urethral Catheter 05/19/23 1025 10 10 05/19/23 1025 -- 6 Pressure Injury 05/02/23 other (see comments) Stage 1 05/02/23 -- -- 23 Pressure Injury 05/09/23 other (see comments) suspected deep tissue injury 05/09/23 -- -- 16 Oxygen Therapy / Airway Device: None (Room air) Shift Pressure Injury Prevention Occiput: No Injury Thoracic Spine: No Injury Sacral: No Injury Ischial - left: No Injury Ischial - right: No Injury Heel - left: No Injury Heel - right: No Injury Elbow - left: No Injury Elbow - right: No Injury Device Sites: BP Cuff, EEG Leads, IV sites, O2 sat monitor Other Sites: ID band Last Bowel Movement: 05/20/23 Intake/Output Summary (Last 24 hours) at 05/25/2023 0916 Last data filed at 05/25/2023 0800 Gross per 24 hour Intake 720 ml Output 1675 ml Net -955 ml Relevant medications: vitamin D2 50,000 U/week, pericolace Anthropometrics: Admit Weight: 111.8 kg Estimated body mass index is 37.16 kg/m?? as calculated from the following: Height as of this encounter: 174 cm (5' 8.5). Weight as of this encounter: 112.5 kg (248 lb 0.3 oz). [place] Body Weight (IBW) (kg): 71.37 Wt Readings from Last 10 Encounters: 05/25/23 112.5 kg (248 lb 0.3 oz) Patient Vitals for the past 168 hrs: Weight 05/25/23 0600 112.5 kg (248 lb 0.3 oz) 05/23/23 0553 113.6 kg (250 lb 7.1 oz) 05/22/23 0511 114 kg (251 lb 5.2 oz) 05/19/23 0400 113.5 kg (250 lb 3.6 oz) Weight Source: Bed Estimated / Assessed Needs: Fluid Requirements: Estimated Fluid Requirement Method: Weight Based Method Weight Based Method: 30 Weight Based Calculation: 2142 mL Metabolic cart study: 1820 kcals Kcal / K - 1785 Kcal (20 Kcal/Kg - 25 Kcal/Kg) Estimated Protein Needs: 86 g - 107 g (1.2 g/Kg - 1.5 g/Kg) Nutrition intake and intake history / interview: 05/24: Pt refusing a lot of PO. Per chart review, plan remains no escalation of care and no plans for NGT replacement. Will continue to offer oral nutrition supplements and encouragement for PO intake. Weight appears stable. 05/21: Team consulted nutrition for concentrated renal feeds over the weekend, however, patient thenwent HOSE SUSPENDER CUTTER, had NGT removed, then HOSE SUSPENDER CUTTER status was reversed over the weekend. Pt on Puree diet and planis keep NGT out for now and see how patient does with PO intake. 05/18: TF continues at goal. Wt slowly trending down per documentation, receiving lasix prn. Will continue to monitor volume status and adjust TF accordingly. LBM 05/18. 05/14: TF at goal. Sips and chips (give meds) per TREASURY CONSULTANT recs, possible MBS today. Pt tolerating feeds per nsg, no s/s of discomfort. Per palliative note (05/14), does not feel pt would want prolonged feeding tube, possibly considering a comfort-focused approach. LBM 05/15. 05/11: TF at goal. Na wnl today. Continues NPO per TREASURY CONSULTANT recs, has been on TF since 04/18 and has sal[place] sump in place. 05/09: TF now at goal. Hyponatremic today and volume status trending down. Team requesting to switch to more concentrated TF formula. 05/07: TF switched to trickle today. Per team, c/f aspiration with pt sliding down in bed - requesting to trial intermittent TF. Will increase kcal from TF now that propofol d/c. 05/04: Propofol off. TF at goal. Hyponatremic. Extubated again today. 05/02: Propofol rate decreasing, will increase kcal from TF. 04/30: TF on APR hold. Propofol went up quite a bit. 04/27: Extubated and re-intubated. TF presently off. On small amt of propofol and javon. Multiple BM yesterday. Lasix drip. GFR <60. Met cart study 1820 kcals. 04/25: TF was off/on hold this morning due to TF formula not being available per flowsheet - checkedunit storage - plenty of Pep AF in top drawer. Pt back from CT scan and TF reportedly restarted. NoBM since 04/21. Phos and Na slightly low. 04/23: Consulted again for TF. Prior goal remains appropriate for now - advance to goal. Off propofol. Has small bore feeding tube. Needs to move bowels. NPO per TREASURY CONSULTANT. 04/19: Re-intubated. TF at 25 mL/hr today. On low dose propofol. No BM this admission. 04/17: Consulted for TF recommendations. May extubate tomorrow. On some propofol. On alcohol withdrawal protocol - thiamine, folic acid and Thera M ordered. Nutrition Focused Physical Exam: Not performed Reason NFPE Not Performed: Not indicated. Malnutrition Diagnosis: Not identified (BETHANY Hagen J Parenteral Enteral Nutr. 2011; 36(3): 273-83) Nutrition to continue to follow up while inpatient * Agustina Garg MD - 05/25/2023 9:01 AM EDT Images from the original note were not included. Neurology Progress Note Patient name: Myla Acosta Date of : 1955 PCP: Fransico Remy MD CC: R cerebellar IPH with VE HPI: Myla 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 He is s/p EVD placement on 04/17 and removal on 05/01. Was also found to have Hay B dissection with extension L SCV into bilateral external iliac 24 hour / interval Hx: - NAOE, sleeping comfortably this morning. - Overnight blood pressures with single reading of 177/94. Sating well on RA. - 340 am noted to be too drowsy to take night time meds. - Labs largely unremarkable. - Last seen by PT on 05/23 - recommend acute rehab Home Medications: No current facility-administered medications on file prior to encounter. No current outpatient medications on file prior to encounter. Current Medications: Scheduled Meds: lisinopriL 20 mg Oral Daily polyethylene glycoL (MIRALAX) oral powder 17 g Oral Daily senna-docusate 1 tablet Oral BID hydrALAZINE 200 mg Oral TID heparin (porcine) 5,000 Units Subcutaneous Q8H YUSUF insulin lispro 1-4 Units Subcutaneous TID AC aspirin 300 mg Rectal Daily Or aspirin 81 mg Oral Daily cloNIDine 0.2 mg Oral Q8H FLUoxetine 20 mg Oral Daily QUEtiapine 100 mg Oral Nightly simethicone 40 mg Oral 4 Times Daily terazosin 1 mg Oral BID traMADoL 50 mg Oral Q8H ergocalciferoL (vitamin D2) 50,000 Units Oral Weekly camphor-methyl salicyl-menthoL Topical (Top) BID Physical Exam: Vitals: Temp: [36.6 ??C (97.8 ??F)-37.4 ??C (99.3 ??F)] Heart Rate: [75-112] Resp: [18-22] BP: (124-183)/(77-118) SpO2: [94 %-98 %] Heart Rate from SpO2: [73 bpm-112 bpm] Gen: Patient of apparent stated age, awake, alert, NAD Neuro Exam: MS: Awake, alert, garbled speech but comprehensible at times (states , 's name correctly). Disoriented to time, location, age, reason for hospitalization. Unable to identify that he is in a hospital when given choices. Intermittently following simple commands. CN: PERRL, VOR Intact No apparent facial asymmetry Hearing intact to voice Motor: Purposeful antigravity movement in all 4 extremities Sensation: AVI due to patient being easily distracted; deferred noxious stimuli due to patient previously striking out at staff when agitated Labs: Last 3 wbc, hgb, hct plt Recent Labs 05/25/23 0047 05/24/23 0512 05/23/23 0051 WBC 6.4 7.4 6.1 HGB 10.1* 9.7* 9.6* HCT 30.0* 29.1* 29.4* PLATELET 209 218 204 Last 3 Lytes Recent Labs 05/25/23 0047 05/24/23 0512 05/23/23 0048 NA 137 138 142 K 3.7 4.0 4.2 CL 102 102 106 CO2 25 26 27 BUN 18 18 22* CREATININE 1.20 1.19 1.17 Last 3 LFTs Recent Labs 05/21/23 1027 04/28/23 0120 04/23/23 0024 04/19/23 0035 AST 17 26 28 22 ALT 30 38 26 19 ALKPHOS 94 61 64 66 BILITOT 0.4 0.5 0.4 0.3 BILIDIR -- 0.3 0.2 0.1 Last Ca, Mg, Phos Recent Labs 05/25/23 0047 CALCIUM 9.9 PHOS 3.6 MAGNESIUM 0.71 Last 3 TFT Recent Labs 04/19/23 0035 TSH 0.74 Last 3 Lipids Recent Labs 05/07/23 0110 05/06/23 1050 05/06/23 0030 04/20/23 0110 04/19/23 0035 CHLPL -- -- -- -- 220 HDL -- -- -- -- 86 LDLDIRECT -- -- -- -- 129 TRIG 194 292 1,032 < > 78 < > = values in this interval not displayed. Last 3 HgbA1C Recent Labs 04/19/23 0035 HA1C 6.0* Last CRP, SEDRATENo results for input(s): CRP, SEDRATE in the last 7068 hours. Radiology: CT Head 05/01 No change in ventricular caliber, intraventricular hemorrhage or right cerebellar hemorrhage with moderate surrounding edema. MRI Brain wwo 04/19 Recent infarct involving the posterior medial LEFT parietal lobe. Unchanged size of RIGHT cerebellar intraparenchymal hemorrhage with unchanged volume of intraventricular blood products. Vasogenic edema tracks along the superior right cerebellar peduncle into the right midbrain. Unchanged ventricular caliber with some hyperintense signal along the ventricular surface suggesting some transependymal CSF flow. No abnormal brain parenchymal or meningeal enhancement to suggest underlying malignancy. Small foci of susceptibility related signal loss separate from the areas of hemorrhage, which couldrepresent sequela of small vessel disease versus cerebral amyloid angiopathy. CTA COW 04/17 No evidence of aneurysm or vascular malformation. Bilateral Renal Artery Duplex 04/27 Comment: Limited exam due to time of day (study started at 1600), overlying bowel gas, patient positioning and patient body habitus. Right: Unable to study kidney, renal artery, and renal vein due to limitations listed above. Unableto determine patency. Left: Patent distal main renal artery with no evidence of hemodynamically significant stenosis. Patent main renal vein. Due to limitations listed above unable to study origin and proximal to mid renal artery; cannot exclude higher velocities/ stenosis here. EKG 04/26: TTE 04/18: There is severe concentric left ventricular hypertrophy. Left ventricular systolic function is normal. The left ventricular ejection fraction is 70% by Hester's biplane. There are no segmental wall motion abnormalities. The right ventricle is probably normal in size. Right ventricular function is probably normal. No significant valve disease. The aortic root is dilated. The diameter at the level of the sinuses of Valsalva is 4.2 cm. The ascending aorta is dilated. The maximum diameter of the proximal ascending aorta is 4.5 cm. No comparison study is available. Assessment and Plan: Myla 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 He is s/p EVD placement on 04/17 and removal on 05/01. 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 Pt has required copious anti-hypertensive agents in order to achieve adequate BP control; unfortunately this has been complicated by profound bradycardiaand, at times, episodes of brief asystole (05/13-05/14). Per family request, Palliative has been consulted and family meeting on 05/15. Pt is now DNR/DNI. He was downgraded to step down level to the vascular neurology service on 05/18 for further management of IVH as well as aortic dissection and other medical conditions as below. 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 Per discussion with , reinitiate medical management but without escalation of care. Goals of care have been discussed with the patient's , and she confirms that she would not want intubation or dialysis and further states that she would not want him to return to the ICU under any circumstances. No escalation of care, but plan to continue management with conservative measures as able in stepdown. Today's plan: Will continue to monitor blood pressure while aiming for euvolemiua with occasional fluid boluses. Increasing Lisinopril to 40mg . Will also start peripheral line in hopes of removing PICC line. Alsostarted IV thiamine and checking UA as is concerned about the sediment in his urine. We also st arted Tamsulosin for urinary retention in hopes of getting his rebolledo out. 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 # concern for mediastinal hematoma # HFpEF - maintain SBP < 160mmHg, HR < 80bpm - current anti-hypertensive regimen: - --> d/c'd 2/2 asystole (05/13) - --> d/c'd 2/2 asystole (05/14) - lisinopril 40mg daily-->discontinued 05/19 (OVI)-> restarted at 20mg (05/23) -> increasedto 40mg (05/24) - terazosin 1mg BID - hydralazine 200mg q8h - -->discontinued on 05/19 (relative hypotension) - aldactone 100mg daily (05/15) - decrease clonidine to 0.2mg q8h (05/14) --> held afternoon dose on 05/19 - Severe bradycardia, prolonged pauses (starting 05/13); likely medication-induced - prefer anticholinergics over pacing - events seemed to have improved throughout today with holding diltiazem and carvedilol - ASA 81mg daily resumed on 05/02 #Respiratory failure #Respiratory acidosis 05/19 - extubated 04/18, re-intubated 04/19 d/t agitation/hypoxia, extubated 04/21 , re- intubated 04/26 d/t mental status, now extubated and doing well (05/04) - does not want pt re-intubated under any circumstances or care escalated to ICU - underwent bronch 04/19 with suctioning of mucous plugs L>R - goal O2 sats > 92% - CPAP QHS as tolerated (tolerating 4h QHS) - airway clearance, 3% neb Q4H, Duonebs PRN as per RT # urinary retention # total body fluid overload # hyponatremia, likely diuresis-induced # Concern for ATN iso recent asystole and contrast - salt tab 3g TID --> decreased to 2g TID --> decreased to 1g TID (05/21) -> discontinued 05/22 - use saline flushes with enteral meds instead of water flushes - Vit D2 50,000 units weekly on Sundays - s/p 500 cc fluid bolus and mIVF, as well as FWB (200 cc TID was ordered) on 05/19; however discontinued fluids per medicine recs given concern for ATN with oliguria and fluid overload - Tamsulosin 0.4mg (05/24) # right brachial DVT - daily CBC - DVT ppx: SCDs, SQH # right wrist pressure injury - followed by Wound Care # Prophylaxis heparin 5000units SC Q8H # Supportive care - Dysphagia soft -Tylenol PRN # DNR/DNI # NO ESCALATION OF CARE TO ICU Agustina Garg MD Neurology Vascular Neurology Pager [phone] Associated attestation - Andi Abbott MD - 05/25/2023 12:33 PM EDT Neurology Attending Attestation I evaluated the patient with the neurology resident. I have reviewed the medical records and patient's history, as well as the resident???s history and examination findings, and I agree with the details as written. My neurologic examination confirms the resident???s findings. We formulated the assessment and plan after a detailed discussion as documented. Andi Abbott MD Attending Neurologist * Ronnie Paulino RN - 05/25/2023 3:40 AM EDT Page Sent Successfully Page Confirmation To Pager number: [phone] From Submitter: Ronnie Paulino Urgency Level: FYI Callback Number: [phone] The following Message was sent: [FYI] - Callback:[phone] [id number] [place]: Pt too drowsy to safely take BP and pain pills at this time. - Ronnie Paulino The following status was returned from the piano mechanic apprentice: Page for [phone] successfully sent to [phone] having status of Available. * Ronnie Paulino RN - 05/24/2023 10:17 PM EDT Page Sent Successfully Page Confirmation To Pager number: [phone] From Submitter: Ronnie Paulino Urgency Level: Call Me Callback Number: [phone] The following Message was sent: [Call Me] - Callback:[phone] [id number] [id number] [place]: HR elevated, BP elevated, labetalol question. - Ronnie Paulino The following status was returned from the piano mechanic apprentice: Page for [phone] successfully sent to [phone] having status of Available. * Qi Dixon, PT - 05/24/2023 3:16 PM EDT Physical Therapy Intervention Note Treatment Number PT: 8 Total duration of encounter: 36 days Patient profile: Myla Acosta is a 67 year old male with unknown pmhx (per chart review, does notappear to have a PCP or follow up within the [facility] system) who presents as a transfer from an OSH for evaluation of a right cerebellar IPH. Per report, he woke up 04/17/23 with c/o vertigo and nausea/vomiting. Subsequent imaging studies revealed a right cerebellar IPH with ANIL. Initial Bps were noted to be in the 200s. Was started on a nicard gtt for BP control. Was subsequently intubated at the OSH for airway protection given worsening somnolence. Presented to [facility] where he was intubated. Brainstem reflexes were preserved. Decision was made to place EVD with NSG. Imaging of carotids and [place] of nugent reveal unexpected finding of type B aortic dissection. CTACA with type B dissection extending from subclav to external iliac. Vascular surgery was consulted.Pt was extubated on 04/23, but has been on the CIWA protocol. 04/18/23 EVD placed-removed on 05/01 & CTH demonstrated improved hydrocephalus 04/19/23 extubated, required reintubation,extubated on 05/04 to 4L NC. Interval Events: transitioned to HOSE SUSPENDER CUTTER but now significant improvement from days prior. Per discussion with , changed from HOSE SUSPENDER CUTTER to reinitiate medical management but without escalation of care. DNR/DNI. Goals of care have been discussed with the patient's , and she confirms that she would not wantintubation or dialysis and further states that she would not want him to return to the ICU under any circumstances. Social History: Patient lives with spouse in a single level home, 1 STEP to enter/exit. Walk in shower with grab bars. Spouse works daytime babysitter. 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 Normally independent. Bilateral hip OA/pain butno device used normally. Independent ADLs and shared IADLs. Precautions/Special Considerations: DNR/DNI, HOB > 30 deg, SBP <160, HR <80, rebolledo catheter, PICC in R UE - risk for delirium. Mobility and Positioning Recommendations: Pt. to utilize bed/chair positioning with nursing. Recommend fidget devices to occupy hands and avoid pulling lines/tubes without restraints EPM Level 2: Bed-Chair position, Mechanically lift to chair. Lift to chair daily please Subjective: ???I know I need rehab (soft spoken and difficult to understand). Give me a minute Don't sotelo me. Objective: Pt seen for with support from his spouse Tete & in conjunction with OT for functional mobility and presented as follows: Pain: L hip but reports he had this limitation prior to hospitalization she guesses from arthritis. Vital Signs: HR=88 SpO2=95% RA BP= 156/89 (109) Behavior / Mood: Alert, following commands with extra time to perform, doesn't like to be rushed. Eyes open 100% of the time during activity. He seems annoyed by all the wires/lines/ constantly triesto move them. He's aware he's in hospital and it's May 2023. He's not fully aware of his health and deficits from this admission as he declined his medications earlier with RN and once therapists explained that he has parameters and we can't work with him until he has his medications, then willing to have RN pass med's for him to take. Vision: glasses worn, reports double vision, OT mentioned she's get him a patch to alternate over eyes. Bed Mobility: Sit > supine: HOB raised moved to L side, given time, Min A, falling backwards or to his R. Sitting balance: Propped with pillows and support behind is back initially, max A. Once scooted to edge and no back support falling towards his R with Mod A to maintain midline. Transfer: Sit > stand: gait belt from EOB to walker with Mod A x 2, heavily lean towards his R as he triedto move feet requiring him to sit EOB. Bed > chair: Lift pad placed while seated EOB and used overhead lift to move to recliner chair. He was able to scoot hips back in seat of chair. Exercise: Supported sitting in chair he could maintain midline posture to perform LAQ, ankle circles, and hip flexion although L hip pain and mentioned his hips not level before coming here; Lhip pain probably arthritis she felt, he'd limp when pain was bad but didn't use any AD to walk. Education: patient reminded of role of PT, participation, safety, bed mobility, lines/tubes, and plan of care,with reminders. Pt left seated in recliner chair at end of session with all needs met, with call hurley in reach, withseat alarm active,& drinks & needs on bedside table in reach to his R, in room. Assessment: Myla Beatty [facility] hospital day #36 s/p right cerebellar IPH. Patient more alert yet confused but able to participate with explanation and support of in room. Cooperative and followingsimple one step commands slow to respond & didn't want to be rushed, give me a minute. Workedon functional activity - bed mobility, sitting balance, standing, combing hair, reaching for drinks.Able to perform bed mobility almost completely on his own except help for sitting balance. Worked on standing from EOB to walker with gait belt but when tried to step leaned significantly to his R and has to sit back on bed for transfer to chair by mechanical lift. Positioned upright & supported sitting in chair then able to stay midline and perform ADL activities and LE ex's sitting. He is ag reeable to more rehab I know I need more rehab; acknowledged he feels weak. Pt will benefit from skilled therapy services throughout hospitalization to promote safety, independence, and provide developmental support/caregiver education. He is functioning well below his baseline level and would benefit from stay @ rehab facility. Discharge Recommendations: Based on the current findings, Anticipated Discharge Disposition (PT): acute rehabilitation facility when medically ready for hospital discharge. Consult Recommendations: No other consults recommended at this time. Equipment Needs: Anticipated Equipment Needs at Discharge (PT): to be determined Inpatient/Acute Care PT Plan: Therapy Frequency (PT): 2-4 times/wk for therapy. Goals: To be achieved by 06/06/23: ONGOING Pt. to consistently perform supine to/from sitting EOB with min A x1 Pt. to perform sit to/from stand transfers with min A x2 and LRAD Pt. to ambulate 10 feet with min A x1 and least restrictive assistive device Pt to sit at EOB, participating in functional task for >5 minutes without LOB, with CG assistance Pt to tolerate use of overhead lift for OOB transfers MET 4/3 Pt to tolerate upright positioning with consistently stable vital signs. Time IN / OUT: 10:54-11:34 Total Minutes, Physical Therapy: 40 (TE-F x 3) Thank you for this consult. QI DIXON, PT Pager: [phone] Physical Therapy Inpatient Rehabilitation Department * Salma Love, OT - 05/24/2023 1:33 PM EDT Occupational Therapy Treatment Note Treatment Number OT: 5 Patient profile: Myla 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 male admitted on 04/18/2023 for R cerebellar hemorrhage with IVH. EVD was placed for hydrocephalus. Pt was intubated at OSH for airway protection. Imaging of carotids and [place] of nugent reveal unexpected finding of type B aortic dissection. CTA CA with type B dissection extending from subclav to external iliac. Vascular surgery was consulted. Pt wasextubated on 04/23, but has been on the CISC protocol. Social History: Patient lives in [place], [place] with his , Tiffany, who still works. They have 2 children 10 and 30 mins away. Home Setup: 1 PATRICIA, 1 level, small thressholds in the house, has a large walk-in shower w/ no seat but grab bar. Per his , he built the house. DME: grab bar, Baseline ADL/Mobility: Pt was independent w/ ADL's. He was somewhat limited because of arthritis inhis hips, but he ambulated w/o a device and his denies h/o falls. He was driving. They share cooking, but Tiffany does most other solderer electronic. 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 He enjoys woodworking and [employer]. Hospital Events: 04/18/23: cerebellar hemorrhage and Type B aortic dissection; respiratory failure resulting in intubation and EVD placement 04/19/23; extubation 04/20/23:reintubation 04/22/23: extubation 04/27/23: reintubation 04/30/23: VAP 05/05/23: extubated Precautions/Special Considerations: DNI/DNR; at risk to fall, NGT, SBP< 160, HR<80, R UE PICC, supplemental 02, rebolledo; risk for delirium Interval History: Per MD 05/23 - NARPANAY, noted to be agitated several times overnight. BP overnight up to 188/99 - Resting in bed, on the phone at the time of my assessment.in no acute distress. - during group rounds patient was being evaluated by PT. Afterwards he was speaking in full sentences and was oriented to person, place, time and situation. His overall mental status seemed much improved and he was expressing concerns regarding inability to get enough PT while in the hospital. S: I don't know Pt noted with increased confusion from prior session regarding reason for admission O: Patient seen for skilled OT treatment. Pt's Gina was present during session. Pt demonstrated the following: Self-care: Mod A for combing hair while seated in recliner chair Dependent for donning socks; issued sock aid (per Pt made one at home and uses it daily) Functional Mobility: Received supine in bed with visiting; Pt RN reported that he had declined medications earlier;educated Pt on importance of maintaining BP within parameters of recommendations and Pt was grosslyagreeable. RN provided medications due to elevated BP and therapist left and returned later. Pt min A for supine to sit EOB with HOB elevated Pt with significant posterior lean; required max A - CGA for balance; primarily requiring max A; noted with R lateral lean Pt performed sit<>stand to FWW with two person mod assistance Pt noted with R lateral lean and requiring assistance for walker management; Pt unable to take steps Sling pad placed under Pt and he sat with min Ax2 back to the bed Pt mechanically lifted OOB to recliner chair Pt participated in combing hair; supervision Pt left sitting in recliner with spouse present, RN updated. Cognition: Behavior / Mood: alert, cooperative, confused, and impaired task initiation; intermittent frustration Alert and oriented to: person, did not formally assess Follows commands: 1-2 step, 100% of the time, requires increased time, and requires repetition Attention: distractible, difficulty attending to task / directions, and requires cues to redirect Safety awareness: decreased insight into deficits and moderate impairment Communication: difficult to understand, mumbling/dysarthric Vision: Pt reporting diplopia at ~1 ft away Pt reporting vertical and horizontal diplopia Pt unable to accurately read clock, but was able to read letters on therapist badge Will continue to assess Pt able to track in all planes; 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 Spot patch. Awaiting response. Endurance: Requires frequent rest breaks Vital Signs: With Activity BP (MAP) 156/89 HR 87 bpm Strength/ROM: moving all extremities against gravity Pain: no overt c/o pain this session Education: Pt/family/caregiver education ongoing regarding: Role of occupational therapy/rehabilitation, Transfers, ADL, Exercise, Breathing exercises, Positioning, Safety, Precautions/Protocol, Functional Mobility, Activity pacing/Energy conservation, Balance, Recommendations, Family training, and Discharge planning. Staff Communication: Patient status, treatment, and mobility recommendations discussed with nursing/other staff. ASSESSMENT: Myla was seen for progression of OT per plan of care. Pt noted with increased confusion today. He is following most simple commands. He was able to perform transfers and grooming tasks. Continue to be at high risk for hospital acquired delirium. Myla will benefit from ongoing therapeutic interventions to achieve pt's and therapy goals Equipment needs at discharge: to be determined Anticipated Discharge Disposition: detention facility Daily schedule / Staff Recommendations: Open shades and turn on lights during the day/lights off at night, Set-up patient with ADL tasks, allow patient to complete ADL tasks as independently as possible Provide choices as able, encourage safe coping skills (such as music, reading, coloring, word search, journaling) Have patient sit up in recliner via lift or bed in chair position during the day as much as possible Sit upright for all meals/meal times Goals: To be achieved within 2 weeks, by 05/31/23: Patient will consistently follow simple one-step commands. Inconsistent each session Patient will consistently be oriented x 4 and CAM (-). Patient will be complete grooming tasks in supported sitting w/ min A. Patient will be mod A with LB dressing. Patient will transfer to the commode with Mod A and least restrictive assistive device. Patient will be mod A w/ a sponge bath in supported sitting. Patient will participate in further vision evaluation. Therapy Frequency (OT): 2-4 times/wk Total Minutes, Occupational Therapy: 46 (1 SC) Pager: [phone] Salma oLve OT 05/24/2023 Occupational Therapy Rehabilitation Department * Tiarra Vasquez, TREASURY CONSULTANT - 05/24/2023 12:36 PM EDT Speech Therapy Note Patient Profile: Myla 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 He was intubated at OSH for airway protection given worsening somnolence and transferred to [facility] on 04/18/2023. Hospital course has been complicated by hypoxic respiratory failure requiring multiple intubations (04/17-04/18, 04/18-04/21, 04/26-05/04; 12 days total). TREASURY CONSULTANT has been following since 04/23 for cognition and dysphagia management. Interval History: Intermittent agitation Refusing meds this morning Recent Imaging: No new imaging on file. Subjective: Patient was irritable and declined most PO intake. Eventually visualized PO intake fromoutside the room. Objective: Patient seen for dysphagia management and demonstrated the following: Pain: No acute signs of discomfort Respiratory Status: Room air, satting 97% Current Diet: Dysphagia soft Feeding / Oral Care Status: Patient requires cues and/or assistance due to a combination of post-stroke motor limitations (?ataxia), suspected visual impairment, and altered mental status Cognitive-Linguistic Status: Awake and alert Reduced attention span Easily frustrated Poor memory for recent events Limited insight into functional status Positioning: Pt up to chair Oral Motor Examination: No significant changes Bolus Presentations: Thin liquid via straw Soft solid Oral Preparatory Phase Mastication: N/A Oral transit: Sluggish Oral containment: Complete, no anterior loss Oral stasis: Not assessed (seen from outside of room) Pharyngeal Phase Swallow initiation: Appears timely Vocal quality change: None Cough / throat clear: None Pt complaint of food getting stuck: None Fatigue across trials: None Respiratory rate and respiratory swallow pattern: Unlabored and coordinated Esophageal Observations No overt signs of esophageal dysphagia noted. Education: Briefly discussed status and recommendations with patient and his . Patient status and swallow recommendations were discussed with nursing. Paged the primary team with request to cancel MBS order. Assessment: Myla was seen today for dysphagia management. He was awake, alert, and irritable requiring consistent cues to engage in even minimal PO intake. He seems to be tolerating limited intake well from a swallowing standpoint but frequently refuses to eat or take PO medications. He has mostlybeen accepting soda and milk. Given ongoing improvements and family refusal of DHT replacement, recommend continuing present managements including oral supplements to optimize nutrition. Myla will continue to require physical assistance and/or cues for self-feeding due to a combination of suspected visual and motor impairment. We will continue to follow. Diagnosis: Oral and suspected pharyngeal dysphagia 2/2 post-stroke weakness, generalized deconditioning, and altered mental status Recommendations: Diet: Dysphagia soft, thin liquids PO Medications: whole with liquid Aspiration Precautions: Sit upright for all PO intake Reduce environmental distractions Slow rate; small bites and sips Patient will require feeding assistance and/or cues at mealtimes Excellent oral care to reduce risk of aspiration pneumonia Delirium Precautions: Orientation: Provide visual and hearing aids Utilize cues such as calendars and clocks Encourage communication and reorient patient repeatedly Have familiar objects from patient's home in room Attempt consistency in nursing staff Allow television during the day with daily news Environment: Sleep hygiene (dim light at nighttime, bright during the day) Limit excess noise (staff, equipment, visitors at night) Ambulate or mobilize patient early and often Speech Therapy Goals: Pt will tolerate least restrictive diet without further respiratory decompensation. ONGOING Caregiver will be independent with aspiration precautions. ONGOING Pt will maintain hydration / nutrition with optimal safety and efficiency. ONGOING Caregiver will follow anti-delirium precautions with assist from staff as needed. ONGOING Plan: Therapy Frequency (TREASURY CONSULTANT Eval): 2-3 times/wk (decreased from 2-4x due to increased stability) Patient's is in agreement with the plan of care. Total Minutes (Speech Language Pathology): 8 Tiarra Vasquez MS, [facility]-TREASURY CONSULTANT Speech-Language Pathologist Inpatient Rehabilitation Pager # [phone] * Yemi Mckenna RN - 05/24/2023 9:09 AM EDT Pt restless at this time. States that he wants to go home. Refusing to take any PO meds at this time. en route. Will attmept to pass morning meds including anti hypertensive meds when spouse arrives * Tiarra Vasquez SLP - 05/24/2023 8:36 AM EDT Speech Pathology Contact Note Chart reviewed. RN requesting to defer session due to patient agitation, denies swallowing difficulty when patient is accepting of PO. We will continue to follow. Tiarra Vasquez MS, [facility]-TREASURY CONSULTANT Speech-Language Pathologist Inpatient Rehabilitation Pager # [phone] * Agustina Garg MD - 05/24/2023 8:31 AM EDT Images from the original note were not included. Neurology Progress Note Patient name: Myla Acosta Date of : 1955 PCP: Fransico Remy MD CC: R cerebellar IPH with VE HPI: Myla 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 He is s/p EVD placement on 04/17 and removal on 05/01. Was also found to have Hay B dissection with extension L SCV into bilateral external iliac 24 hour / interval Hx: - NAOE, noted to be agitated several times overnight. BP overnight up to 188/99 - Resting in bed, on the phone at the time of my assessment.in no acute distress. - during group rounds patient was being evaluated by PT. Afterwards he was speaking in full sentences and was oriented to person, place, time and situation. His overall mental status seemed much improved and he was expressing concerns regarding inability to get enough PT while in the hospital. Home Medications: No current facility-administered medications on file prior to encounter. No current outpatient medications on file prior to encounter. Current Medications: Scheduled Meds: lisinopriL 20 mg Oral Daily polyethylene glycoL (MIRALAX) oral powder 17 g Oral Daily senna-docusate 1 tablet Oral BID hydrALAZINE 200 mg Oral TID heparin (porcine) 5,000 Units Subcutaneous Q8H [facility] insulin lispro 1-4 Units Subcutaneous TID AC aspirin 300 mg Rectal Daily Or aspirin 81 mg Oral Daily cloNIDine 0.2 mg Oral Q8H FLUoxetine 20 mg Oral Daily QUEtiapine 100 mg Oral Nightly simethicone 40 mg Oral 4 Times Daily terazosin 1 mg Oral BID traMADoL 50 mg Oral Q8H ergocalciferoL (vitamin D2) 50,000 Units Oral Weekly camphor-methyl salicyl-menthoL Topical (Top) BID Physical Exam: Vitals: Temp: [36.4 ??C (97.5 ??F)-37.4 ??C (99.3 ??F)] Heart Rate: [62-98] Resp: [16-20] BP: (130-188)/(70-123) SpO2: [93 %-96 %] Heart Rate from SpO2: [60 bpm-99 bpm] Gen: Patient of apparent stated age, awake, alert, NAD Neuro Exam: MS: Awake, alert, garbled speech but comprehensible at times (states , 's name correctly). Disoriented to time, location, age, reason for hospitalization. Unable to identify that he is in a hospital when given choices. Intermittently following simple commands. CN: PERRL, VOR Intact No apparent facial asymmetry Hearing intact to voice Motor: Purposeful antigravity movement in all 4 extremities Sensation: AVI due to patient being easily distracted; deferred noxious stimuli due to patient previously striking out at staff when agitated Labs: Last 3 wbc, hgb, hct plt Recent Labs 05/24/23 0512 05/23/23 0051 05/22/23 0035 WBC 7.4 6.1 6.7 HGB 9.7* 9.6* 8.9* HCT 29.1* 29.4* 27.2* PLATELET 218 204 190 Last 3 Lytes Recent Labs 05/24/23 0512 05/23/23 0048 05/22/23 0031 NA 138 142 145 K 4.0 4.2 4.0 CL 102 106 108* CO2 26 27 27 BUN 18 22* 28* CREATININE 1.19 1.17 1.20 Last 3 LFTs Recent Labs 05/21/23 1027 04/28/23 0120 04/23/23 0024 04/19/23 0035 AST 17 26 28 22 ALT 30 38 26 19 ALKPHOS 94 61 64 66 BILITOT 0.4 0.5 0.4 0.3 BILIDIR -- 0.3 0.2 0.1 Last Ca, Mg, Phos Recent Labs 05/24/23 0512 CALCIUM 9.8 PHOS 3.9 MAGNESIUM 0.73 Last 3 TFT Recent Labs 04/19/23 0035 TSH 0.74 Last 3 Lipids Recent Labs 05/07/23 0110 05/06/23 1050 05/06/23 0030 04/20/23 0110 04/19/23 0035 CHLPL -- -- -- -- 220 HDL -- -- -- -- 86 LDLDIRECT -- -- -- -- 129 TRIG 194 292 1,032 < > 78 < > = values in this interval not displayed. Last 3 HgbA1C Recent Labs 04/19/23 0035 HA1C 6.0* Last CRP, SEDRATENo results for input(s): CRP, SEDRATE in the last 7068 hours. Radiology: CT Head 05/01 No change in ventricular caliber, intraventricular hemorrhage or right cerebellar hemorrhage with moderate surrounding edema. MRI Brain wwo 04/19 Recent infarct involving the posterior medial LEFT parietal lobe. Unchanged size of RIGHT cerebellar intraparenchymal hemorrhage with unchanged volume of intraventricular blood products. Vasogenic edema tracks along the superior right cerebellar peduncle into the right midbrain. Unchanged ventricular caliber with some hyperintense signal along the ventricular surface suggesting some transependymal CSF flow. No abnormal brain parenchymal or meningeal enhancement to suggest underlying malignancy. Small foci of susceptibility related signal loss separate from the areas of hemorrhage, which couldrepresent sequela of small vessel disease versus cerebral amyloid angiopathy. CTA COW 04/17 No evidence of aneurysm or vascular malformation. Bilateral Renal Artery Duplex 04/27 Comment: Limited exam due to time of day (study started at 1600), overlying bowel gas, patient positioning and patient body habitus. Right: Unable to study kidney, renal artery, and renal vein due to limitations listed above. Unableto determine patency. Left: Patent distal main renal artery with no evidence of hemodynamically significant stenosis. Patent main renal vein. Due to limitations listed above unable to study origin and proximal to mid renal artery; cannot exclude higher velocities/ stenosis here. EKG 04/26: TTE 04/18: There is severe concentric left ventricular hypertrophy. Left ventricular systolic function is normal. The left ventricular ejection fraction is 70% by Hester's biplane. There are no segmental wall motion abnormalities. The right ventricle is probably normal in size. Right ventricular function is probably normal. No significant valve disease. The aortic root is dilated. The diameter at the level of the sinuses of Valsalva is 4.2 cm. The ascending aorta is dilated. The maximum diameter of the proximal ascending aorta is 4.5 cm. No comparison study is available. Assessment and Plan: Myla 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 He is s/p EVD placement on 04/17 and removal on 05/01. 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 Pt has required copious anti-hypertensive agents in order to achieve adequate BP control; unfortunately this has been complicated by profound bradycardiaand, at times, episodes of brief asystole (05/13-05/14). Per family request, Palliative has been consulted and family meeting on 05/15. Pt is now DNR/DNI. He was downgraded to step down level to the vascular neurology service on 05/18 for further management of IVH as well as aortic dissection and other medical conditions as below. 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 Per discussion with , reinitiate medical management but without escalation of care. Goals of care have been discussed with the patient's , and she confirms that she would not want intubation or dialysis and further states that she would not want him to return to the ICU under any circumstances. No escalation of care, but plan to continue management with conservative measures as able in stepdown. Today's plan: Will continue to monitor blood pressure while aiming for euvolemiua with occasional fluid boluses. Adding half dose of Lisinopril at 20mg daily for further blood pressure control. OVI is improving, will continue to monitor. This morning patient's mental status is significantly improved as he is engaging in conversation appropriately and is showing good insight into his current condition and is eager to work with PT/OT in hopes of further improvement. He is oriented to person, place and situation. 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 # concern for mediastinal hematoma # HFpEF - maintain SBP < 160mmHg, HR < 80bpm - current anti-hypertensive regimen: - --> d/c'd 2/2 asystole (05/13) - --> d/c'd 2/2 asystole (05/14) - lisinopril 40mg daily-->discontinued 05/19 (OVI)-> restarted at 20mg (05/23) - terazosin 1mg BID - hydralazine 200mg q8h - -->discontinued on 05/19 (relative hypotension) - aldactone 100mg daily (05/15) - decrease clonidine to 0.2mg q8h (05/14) --> held afternoon dose on 05/19 - Severe bradycardia, prolonged pauses (starting 05/13); likely medication-induced - prefer anticholinergics over pacing - events seemed to have improved throughout today with holding diltiazem and carvedilol - ASA 81mg daily resumed on 05/02 #Respiratory failure #Respiratory acidosis 05/19 - extubated 04/18, re-intubated 04/19 d/t agitation/hypoxia, extubated 04/21 , re- intubated 04/26 d/t mental status, now extubated and doing well (05/04) - does not want pt re-intubated under any circumstances or care escalated to ICU - underwent bronch 04/19 with suctioning of mucous plugs L>R - goal O2 sats > 92% - CPAP QHS as tolerated (tolerating 4h QHS) - airway clearance, 3% neb Q4H, Duonebs PRN as per RT # urinary retention # total body fluid overload # hyponatremia, likely diuresis-induced # Concern for ATN iso recent asystole and contrast - salt tab 3g TID --> decreased to 2g TID --> decreased to 1g TID (05/21) -> discontinued 05/22 - use saline flushes with enteral meds instead of water flushes - Vit D2 50,000 units weekly on Sundays - s/p 500 cc fluid bolus and mIVF, as well as FWB (200 cc TID was ordered) on 05/19; however discontinued fluids per medicine recs given concern for ATN with oliguria and fluid overload # right brachial DVT - daily CBC - DVT ppx: SCDs, SQH # right wrist pressure injury - followed by Wound Care # Prophylaxis heparin 5000units SC Q8H # Supportive care - Dysphagia soft -Tylenol PRN # DNR/DNI # NO ESCALATION OF CARE TO ICU Agustina Garg MD Neurology Vascular Neurology Pager [phone] Associated attestation - Andi Abbott MD - 05/24/2023 2:43 PM EDT Neurology Attending Attestation I evaluated the patient with the neurology resident. I have reviewed the medical records and patient's history, as well as the resident???s history and examination findings, and I agree with the details as written. My neurologic examination confirms the resident???s findings. We formulated the assessment and plan after a detailed discussion as documented. Andi Abbott MD Attending Neurologist * Tiarra Vasquez, ASMITA - 05/23/2023 1:35 PM EDT Speech Pathology Contact Note Chart reviewed. Session deferred as patient had family visiting. Briefly spoke with patient's and RN who both reported good tolerance of PO intake. Patient has been refusing lunch (does not eat lunch at home per ) but participates in breakfast and dinner with encouragement. We will continue to follow. Tiarra Vasquez MS, CCC-TREASURY CONSULTANT Speech-Language Pathologist Inpatient Rehabilitation Pager # [phone] * Agustina Garg MD - 05/23/2023 7:21 AM EDT Images from the original note were not included. Neurology Progress Note Patient name: Myla Acosta Date of : 1955 PCP: Fransico Remy MD CC: R cerebellar IPH with VE HPI: Myla 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 He is s/p EVD placement on 04/17 and removal on 05/01. Was also found to have Hay B dissection with extension L SCV into bilateral external iliac 24 hour / interval Hx: - NAOE, VSS, BP: (129-182)/(60-162) - Hemoglobin 9.6 - This morning he is less talkative, though responding to questions. Not oriented to place or time. - Resting in bed, in no acute distress. Home Medications: No current facility-administered medications on file prior to encounter. No current outpatient medications on file prior to encounter. Current Medications: Scheduled Meds: polyethylene glycoL (MIRALAX) oral powder 17 g Oral Daily senna-docusate 1 tablet Oral BID hydrALAZINE 200 mg Oral TID sodium chloride 0.9% 500 mL IV bolus Intravenous Once heparin (porcine) 5,000 Units Subcutaneous Q8H YUSUF insulin lispro 1-4 Units Subcutaneous TID AC aspirin 300 mg Rectal Daily Or aspirin 81 mg Oral Daily cloNIDine 0.2 mg Oral Q8H FLUoxetine 20 mg Oral Daily QUEtiapine 100 mg Oral Nightly simethicone 40 mg Oral 4 Times Daily terazosin 1 mg Oral BID traMADoL 50 mg Oral Q8H ergocalciferoL (vitamin D2) 50,000 Units Oral Weekly camphor-methyl salicyl-menthoL Topical (Top) BID Past Medical & Surgical History: No past medical history on file. No past surgical history on file. Allergy: No Known Allergies Family History: No family history on file. Social History Socioeconomic History Marital status: Spouse name: Not on file Number of children: Not on file Years of education: Not on file Highest education level: Not on file Occupational History Not on file Tobacco Use Smoking status: Unknown Smokeless tobacco: Not on file Substance and Sexual Activity Alcohol use: Defer Drug use: Defer Sexual activity: Defer Other Topics Concern Not on file Social History Narrative to Tete X 44 years. They have 3 children: all in their 20s. 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 He has a significant alcohol abuse history with daily drinking. Was never one to go to get medical care. Social Determinants of Health Financial Resource Strain: Not on file Food Insecurity: No Food Insecurity (04/20/2023) Hunger Vital Sign Worried About Running Out of Food in the Last Year: Never true Ran Out of Food in the Last Year: Never true Transportation Needs: No Transportation Needs (04/20/2023) PRAPARE - Transportation Lack of Transportation (Medical): No Lack of Transportation (Non-Medical): No Physical Activity: Not on file Intimate Partner Violence: Not on file Housing Stability: Unknown (04/20/2023) Housing Stability Vital Sign Unable to Pay for Housing in the Last Year: No Number of Places Lived in the Last Year: Not on file Unstable Housing in the Last Year: No Physical Exam: Vitals: Temp: [36.6 ??C (97.9 ??F)-36.8 ??C (98.2 ??F)] Heart Rate: [58-98] Resp: [18] BP: (129-182)/(60-162) SpO2: [90 %-97 %] Heart Rate from SpO2: [57 bpm-99 bpm] Gen: Patient of apparent stated age, awake, alert, NAD Neuro Exam: MS: Awake, alert, garbled speech but comprehensible at times (states , 's name correctly). Disoriented to time, location, age, reason for hospitalization. Unable to identify that he is in a hospital when given choices. Intermittently following simple commands. CN: PERRL, VOR Intact No apparent facial asymmetry Hearing intact to voice Motor: Purposeful antigravity movement in all 4 extremities Sensation: AVI due to patient being easily distracted; deferred noxious stimuli due to patient previously striking out at staff when agitated Labs: Last 3 wbc, hgb, hct plt Recent Labs 05/23/23 0051 05/22/23 0035 05/21/23 1027 WBC 6.1 6.7 6.4 HGB 9.6* 8.9* 8.8* HCT 29.4* 27.2* 28.2* PLATELET 204 190 192 Last 3 Lytes Recent Labs 05/23/23 0048 05/22/23 0031 05/21/23 1027 NA 142 145 145 K 4.2 4.0 4.2 CL 106 108* 107 CO2 27 27 29 BUN 22* 28* 38* CREATININE 1.17 1.20 1.81* Last 3 LFTs Recent Labs 05/21/23 1027 04/28/23 0120 04/23/23 0024 04/19/23 0035 AST 17 26 28 22 ALT 30 38 26 19 ALKPHOS 94 61 64 66 BILITOT 0.4 0.5 0.4 0.3 BILIDIR -- 0.3 0.2 0.1 Last Ca, Mg, Phos Recent Labs 05/23/23 0048 CALCIUM 9.6 PHOS 3.6 MAGNESIUM 0.76 Last 3 TFT Recent Labs 04/19/23 0035 TSH 0.74 Last 3 Lipids Recent Labs 05/07/23 0110 05/06/23 1050 05/06/23 0030 04/20/23 0110 04/19/23 0035 CHLPL -- -- -- -- 220 HDL -- -- -- -- 86 LDLDIRECT -- -- -- -- 129 TRIG 194 292 1,032 < > 78 < > = values in this interval not displayed. Last 3 HgbA1C Recent Labs 04/19/23 003 HA1C 6.0* Last CRP, SEDRATENo results for input(s): CRP, SEDRATE in the last 7068 hours. Radiology: CT Head 05/01 No change in ventricular caliber, intraventricular hemorrhage or right cerebellar hemorrhage with moderate surrounding edema. MRI Brain wwo 04/19 Recent infarct involving the posterior medial LEFT parietal lobe. Unchanged size of RIGHT cerebellar intraparenchymal hemorrhage with unchanged volume of intraventricular blood products. Vasogenic edema tracks along the superior right cerebellar peduncle into the right midbrain. Unchanged ventricular caliber with some hyperintense signal along the ventricular surface suggesting some transependymal CSF flow. No abnormal brain parenchymal or meningeal enhancement to suggest underlying malignancy. Small foci of susceptibility related signal loss separate from the areas of hemorrhage, which couldrepresent sequela of small vessel disease versus cerebral amyloid angiopathy. CTA COW 04/17 No evidence of aneurysm or vascular malformation. Bilateral Renal Artery Duplex 04/27 Comment: Limited exam due to time of day (study started at 1600), overlying bowel gas, patient positioning and patient body habitus. Right: Unable to study kidney, renal artery, and renal vein due to limitations listed above. Unableto determine patency. Left: Patent distal main renal artery with no evidence of hemodynamically significant stenosis. Patent main renal vein. Due to limitations listed above unable to study origin and proximal to mid renal artery; cannot exclude higher velocities/ stenosis here. EKG 04/26: TTE 04/18: There is severe concentric left ventricular hypertrophy. Left ventricular systolic function is normal. The left ventricular ejection fraction is 70% by Hester's biplane. There are no segmental wall motion abnormalities. The right ventricle is probably normal in size. Right ventricular function is probably normal. No significant valve disease. The aortic root is dilated. The diameter at the level of the sinuses of Valsalva is 4.2 cm. The ascending aorta is dilated. The maximum diameter of the proximal ascending aorta is 4.5 cm. No comparison study is available. Assessment and Plan: Myla 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 He is s/p EVD placement on 04/17 and removal on 05/01. 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 Pt has required copious anti-hypertensive agents in order to achieve adequate BP control; unfortunately this has been complicated by profound bradycardiaand, at times, episodes of brief asystole (05/13-05/14). Per family request, Palliative has been consulted and family meeting on 05/15. Pt is now DNR/DNI. He was downgraded to step down level to the vascular neurology service on 05/18 for further management of IVH as well as aortic dissection and other medical conditions as below. 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 05/23/2023 Per discussion with , reinitiate medical management but without escalation of care. Declines DHT replacement today. Goals of care have been discussed with the patient's , and she confirms that she would not want intubation or dialysis and further states that she would not want him to returnto the ICU under any circumstances. No escalation of care, but plan to continue management with conservative measures as able in stepdown. Today's plan: Will continue to monitor blood pressure while aiming for euvolemiua with occasional fluid boluses. Hydralazine increased to prior dose if 200mg q8h. No other changes to medication at this time. OVI is improving, will continue to monitor. 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 # concern for mediastinal hematoma # HFpEF - maintain SBP < 160mmHg, HR < 80bpm - current anti-hypertensive regimen: - --> d/c'd 2/2 asystole (05/13) - --> d/c'd 2/2 asystole (05/14) - -->discontinued 05/19 (OVI) - terazosin 1mg BID - hydralazine 200mg q8h - -->discontinued on 05/19 (relative hypotension) - aldactone 100mg daily (05/15) - decrease clonidine to 0.2mg q8h (05/14) --> held afternoon dose on 05/19 - Severe bradycardia, prolonged pauses (starting 05/13); likely medication-induced - prefer anticholinergics over pacing - events seemed to have improved throughout today with holding diltiazem and carvedilol - ASA 81mg daily resumed on 05/02 #Respiratory failure #Respiratory acidosis 05/19 - extubated 04/18, re-intubated 04/19 d/t agitation/hypoxia, extubated 04/21 , re- intubated 04/26 d/t mental status, now extubated and doing well (05/04) - does not want pt re-intubated under any circumstances or care escalated to ICU - underwent bronch 04/19 with suctioning of mucous plugs L>R - goal O2 sats > 92% - CPAP QHS as tolerated (tolerating 4h QHS) - airway clearance, 3% neb Q4H, Duonebs PRN as per RT # urinary retention # total body fluid overload # hyponatremia, likely diuresis-induced # Concern for ATN iso recent asystole and contrast - salt tab 3g TID --> decreased to 2g TID --> decreased to 1g TID (05/21) - use saline flushes with enteral meds instead of water flushes - Vit D2 50,000 units weekly on Sundays - s/p 500 cc fluid bolus and mIVF, as well as FWB (200 cc TID was ordered) on 05/19; however discontinued fluids per medicine recs given concern for ATN with oliguria and fluid overload # right brachial DVT - daily CBC - DVT ppx: SCDs, SQH # right wrist pressure injury - followed by Wound Care # Prophylaxis heparin 5000units SC Q8H # Supportive care - Dysphagia soft -Tylenol PRN # DNR/DNI # NO ESCALATION OF CARE TO ICU Agustina Garg MD Neurology Vascular Neurology Pager [phone] Associated attestation - Crystal Mckenna MD - 05/23/2023 10:59 PM EDT Neurology Staff Note I have reviewed the resident's history during the visit and I agree with the details as written. Myphysical examination confirms the resident's findings. The assessment and plan were formulated in discussion with me at the time of the visit and I agree with them as documented. Reporting diplopia that he didn't discuss before but reluctant to wear a patch. More alert but still is somewhat irritated and mumbling at times. SBP was in the 130s this AM so are carefully adjusting his oral medications now off nicardipine. Can add lisinopril back if needed tomorrow. Will try to match Is/Os for now. Will consider having him assign a DPOA in the near future if able * Tiarra Vasquez, ASMITA - 05/22/2023 2:32 PM EDT Speech Therapy Note Patient Profile: Myla 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 He was intubated at OSH for airway protection given worsening somnolence and transferred to [facility] on 04/18/2023. Hospital course has been complicated by hypoxic respiratory failure requiring multiple intubations (04/17-04/18, 04/18-04/21, 04/26-05/04; 12 days total). TREASURY CONSULTANT has been following since 04/23 for cognition and dysphagia management. Interval History: Intermittent agitation Family declined DHT replacement for now Recent Imaging: XR Chest (05/20/2023) IMPRESSION 1. Ill-defined left retrocardiac opacity could represent atelectasis, aspiration, or developing infection. 2. Pulmonary vascular congestion with an enlarged cardiac silhouette. Subjective: Patient was irritable and declined most PO intake. Objective: Patient seen for dysphagia management and demonstrated the following: Pain: No acute signs of discomfort Respiratory Status: Room air, satting 94% Current Diet: Puree Feeding / Oral Care Status: Patient requires cues and/or assistance due to a combination of post-stroke motor limitations (?ataxia), suspected visual impairment, and altered mental status. Today, he self-administered 100% of trials given verbal, visual, and tactile cues. Cognitive-Linguistic Status: Awake and alert Reduced attention span Responds to simple questions appropriately Follows simple commands with repetition Reports ongoing visual impairment (?double vision) Positioning: Pt up to chair Oral Motor Examination: No significant changes Bolus Presentations: Thin liquid via straw Puree Oral Preparatory Phase Mastication: N/A Oral transit: Sluggish with periodic oral holding Oral containment: Complete, no anterior loss Oral stasis: None post-swallow, occasionally needs cues to swallow what is in his mouth Pharyngeal Phase Swallow initiation: Appears timely Vocal quality change: None Cough / throat clear: None Pt complaint of food getting stuck: None Fatigue across trials: None Respiratory rate and respiratory swallow pattern: Unlabored and coordinated Esophageal Observations No overt signs of esophageal dysphagia noted. Education: Discussed status and recommendations with patient and his . Patient's has declined DHT replacement at this time and would like to see how patient does with more advanced consistencies given his frequent refusal of purees. Agreed that this would be a reasonable next step based onhis current presentation. Also informed patient and family that MBS would NOT be completed at this time given improvements in clinical status and tolerance of PO intake but may be completed in the future should new dysphagia symptoms arise. Patient status and swallow recommendations were discussed with nursing. Paged the primary team with updated diet recommendations and secure chatted RD re: oral supplements. Assessment: Myla was seen today for dysphagia management. He was awake, alert, and irritable requiring consistent cues to engage in even minimal PO intake. He seems to be tolerating limited intake well from a swallowing standpoint but frequently refuses purees. He has mostly been accepting soda and milk. Given ongoing improvements in clinical status and family refusal of DHT replacement, recommend slight upgrade to a dysphagia soft diet to hopefully increase PO intake along with addition of oral supplements for nutrition. Myla will continue to require physical assistance and/or cues for self-feeding due to a combination of suspected visual and motor impairment. We will continue to follow. Diagnosis: Oral and suspected pharyngeal dysphagia 2/2 post-stroke weakness, generalized deconditioning, and altered mental status Recommendations: Diet: Dysphagia soft, thin liquids PO Medications: whole in puree Aspiration Precautions: Sit upright for all PO intake Reduce environmental distractions Slow rate; small bites and sips Patient will require feeding assistance and/or cues at mealtimes Excellent oral care to reduce risk of aspiration pneumonia Delirium Precautions: Orientation: Provide visual and hearing aids Utilize cues such as calendars and clocks Encourage communication and reorient patient repeatedly Have familiar objects from patient's home in room Attempt consistency in nursing staff Allow television during the day with daily news Environment: Sleep hygiene (dim light at nighttime, bright during the day) Limit excess noise (staff, equipment, visitors at night) Ambulate or mobilize patient early and often Speech Therapy Goals: Pt will tolerate least restrictive diet without further respiratory decompensation. ONGOING Caregiver will be independent with aspiration precautions. ONGOING Pt will maintain hydration / nutrition with optimal safety and efficiency. ONGOING Caregiver will follow anti-delirium precautions with assist from staff as needed. ONGOING Plan: Therapy Frequency (TREASURY CONSULTANT Eval): 2-4 times/wk Patient's is in agreement with the plan of care. Total Minutes (Speech Language Pathology): 20 Tiarra Vasquez MS, [facility]-TREASURY CONSULTANT Speech-Language Pathologist Inpatient Rehabilitation Pager # [phone] * Coleman Lemus, PT - 05/22/2023 2:30 PM EDT Physical Therapy Intervention Note Treatment Number PT: 7 Total duration of encounter: 34 days Patient profile: Myla Acosta is a 67 year old male with unknown pmhx (per chart review, does notappear to have a PCP or follow up within the [facility] [facility]) who presents as a transfer from an OSH for evaluation of a right cerebellar IPH. Per report, he woke up 04/17/23 with c/o vertigo and nausea/vomiting. Subsequent imaging studies revealed a right cerebellar IPH with ANIL. Initial Bps were noted to be in the 200s. Was started on a nicard gtt for BP control. Was subsequently intubated at the OSH for airway protection given worsening somnolence. Presented to [facility] where he was intubated. Brainstem reflexes were preserved. Decision was made to place EVD with NSG. Imaging of carotids and [place] of nugent reveal unexpected finding of type B aortic dissection. CTACA with type B dissection extending from subclav to external iliac. Vascular surgery was consulted.Pt was extubated on 04/23, but has been on the CIWA protocol. 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 Vascular surgery was consulted and patient remained under strict BP and HR paraemters (SBP <120, HR <60) -Patient was started on aspirin -Due to difficulty controlling BP nephrology was consulted and patient was started on labetalol, hydralazine, clonidine, lisinopril diltiazem, terazosin, and still required clevidipine gtt and nitro.Urine metanephrines sent abnd pending -Patient had been extubated on 04/18 but required reintubation after a hypoxic event and AMS. He wasextubated on 05/04 to 4L NC and remained on CPAP. -made HOSE SUSPENDER CUTTER 05/21/23 secondary to worsening medical status and reversed later in the day as he improved. Social History: Patient lives with spouse in a single level home, [address]. Walk in shower with grab bars. Spouse works daytime babysitter. 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 Normally independent. Bilateral hip OA/pain but no device usednormally. Independent ADLs and shared IADLs. Precautions/Special Considerations: Code limitations DNR/DNI, HOB > 30 deg, SBP <160, HR <80, rebolledo catheter, PICC - nicardipine, goal spO2 >92%, restraints Mobility and Positioning Recommendations: Pt. to utilize bed/chair positioning with nursing. Recommend fidget devices to occupy hands and avoid pulling lines/tubes without restraints EPM Level 2: Bed-Chair position, Mechanically lift to chair. Lift to chair daily please Subjective: ???I had a drink. Asking for drink on his bedside table. Not much. When asked if he ate lunch. Objective: Pt seen for physical therapy treatment today with support from his spouse Tete and Blurr and presented as follows: Pain: none reported Vital Signs: At Rest Post session SpO2 RA 95% 92% BP (MAP) 131/60 mmHg Behavior / Mood: lethargic, followed commands 100% of the time once awake. Eyes open 100% of the time during activity. Oriented to: person, location, spouse Follows commands: 2 step and 100% of the time Vision: glasses worn, reaches for cloth with R UE with accuracy, wipes face with accuracy, re-dons glasses with accuracy Bed Mobility: sit to supine - supervised, pt self initiated and asked before transitioning Boosting, bridging, scooting in bed - supervised, verbal cues to complete Transfers: Sit to Stand: min A x2 from low recliner chair height, gait belt, up to hand holds Stand to Sit: CGA from standing, reaches back and visualizes chair behind him before sitting Bed to Chair: stand step, min A x2 with increased effort, some antalgia and R leaning, gait belt, verbal cues for technique, minimal repeat cues and directions required to achieve sitting edge of bed Scooting: laterally along edge of bed, supervised, to the L, verbal cues to complete Pre-Gait: Weightshifting R and L in standing with B UE supports, gait belt Stairs: AVI Balance: Sitting Static: good - able to maintain with unilateral UE support, CGA Sitting Dynamic: good - able to maintain with unilateral UE support, CGA Standing Static: fair Standing Dynamic / Gait: fair, requires UE supports Education: patient educated on role of PT, orientation, participation, safety, bed mobility, lines/tubes, and plan of care, with guarded understanding/demonstration. Patient status, treatment, and mobility recommendations discussed with nursing. Pt left seated in bed at end of session with HOB 30 degrees with all needs met, with call hurley in reach, with bed alarm active, restraints off as they were found. Assessment: Myla Acosta was seen today for physical therapy intervention. Patient somewhat lethargic today limiting his session. Effortful to wake from his nap to participate. Cooperative and following multi-step commands without repetition this visit. Slow to respond. Able to stand and transfer with less assistance than previously. This date he tolerated 2 separate therapy sessions (OT in the AM and PT in the PM). Goals updated. Pt will benefit from skilled therapy services throughout hospitalization to promote safety, independence, and provide developmental support/caregiver education. Discharge Recommendations: Based on the current findings, Anticipated Discharge Disposition (PT): other (see comments) (rehab facility) when medically ready for hospital discharge. Acute versus SNF dependent upon command following, cognitive status, and ability to tolerate 3 hours of therapy per day. Consult Recommendations: No other consults recommended at this time. Equipment Needs: Anticipated Equipment Needs at Discharge (PT): to be determined Inpatient/Acute Care PT Plan: Therapy Frequency (PT): 2-4 times/wk for therapy. Goals: To be achieved by 06/01/23: Pt. to consistently perform supine to/from sitting EOB with min A x1 Pt. to perform sit to/from stand transfers with min A x2 and LRAD Pt. to ambulate 10 feet with min A x1 and least restrictive assistive device Pt to sit at EOB, participating in functional task for >5 minutes without LOB, with CG assistance Pt to tolerate use of overhead lift for OOB transfers MET 4/3 Pt to tolerate upright positioning with consistently stable vital signs. Time IN / OUT: 4419-2058 Total Minutes, Physical Therapy: 25 Billing Code: x2 TEF Thank you for this consult. COLEMAN LEMUS, PT Pager: [phone] Physical Therapy Inpatient Rehabilitation Department * Coleman Forbes HOSPITAL MEDICINE DIRECTOR - 05/22/2023 1:29 PM EDT Initial visit or follow-up visit? 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 PALLIATIVE CARE HOSPITAL MEDICINE DIRECTOR ASSESSMENT: HOSPITAL MEDICINE DIRECTOR visited Myla along with palliative care team members. Tete is at bedside. Per Tete,this weekend was a roller coaster of emotions- and Myla more of himself today. Family elected to reverse the HOSE SUSPENDER CUTTER and to see where his body takes him. Palliative will continue to follow Myla. PLAN/RECOMMENDATIONS: HOSPITAL MEDICINE DIRECTOR will continue following for coping support. Palliative continuity provider(s): Coleman Forbes, [facility], pager #[phone] * Ivan Salma Diane, OT - 05/22/2023 12:58 PM EDT Occupational Therapy Treatment Note Treatment Number OT: 5 Patient profile: Myla 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 male admitted on 04/18/2023 for R cerebellar hemorrhage with IVH. EVD was placed for hydrocephalus. Pt was intubated at OSH for airway protection. Imaging of carotids and [place]ug[place] reveal unexpected finding of type B aortic dissection. CTA CA with type B dissection extending from subclav to external iliac. Vascular surgery was consulted. Pt wasextubated on 04/23, but has been on the CIWA protocol. Social History: Patient lives in [place], [place] with his , Tiffany, who still works. They have 2 children 10 and 30 mins away. Home Setup: [address], 1 level, small thressholds in the house, has a large walk-in shower w/ no seat but grab bar. Per his , he built the house. DME: grab bar, Baseline ADL/Mobility: Pt was independent w/ ADL's. He was somewhat limited because of arthritis inhis hips, but he ambulated w/o a device and his denies h/o falls. He was driving. They share cooking, but Tiffayn does most other solderer electronic. 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 He enjoys woodworking and [employer] Hospital Events: 04/18/23: cerebellar hemorrhage and Type B aortic dissection; respiratory failure resulting in intubation and EVD placement 04/19/23; extubation 04/20/23:reintubation 04/22/23: extubation 04/27/23: reintubation 04/30/23: VAP 05/05/23: extubated Precautions/Special Considerations: DNI/DNR; at risk to fall, NGT, SBP< 160, HR<80, R UE PICC, supplemental 02, rebolledo; risk for delirium Interval History: Per 05/21 - NAOE, VSS, BP: (140-203)/(63-118) - Hemoglobin 8.9 from 9.1 - Transitioned to HOSE SUSPENDER CUTTER Monday but reversed yesterday. Now awake, alert, following simple commands. - This morning he continues to appear agitated, though responding to questions. Not oriented to place or time. - Remains in bilateral upper extremity restraints. S: I see two of you Pt reporting diplopia O: Patient seen for skilled OT treatment. Pt's Gina was present during session. Pt demonstrated the following: Self-care: Mod A for combing hair while seated in recliner chair Dependent for donning socks; issued sock aid (per Pt made one at home and uses it daily) Functional Mobility: Received supine in bed; asleep. Pt awoke to auditory stimulus. Boosted with max Ax2 Pt mod A for rolling L and R with mod A,mechanical lift sling placed Pt then mechanically lifted to EOB Once EOB, Pt reported feeling lightheaded and dizzy, therapist elevated legs, BP stable Pt sat with varying levels of assistance at EOB, at times able to sit unsupported Pt mechanically lifted OOB to recliner chair Pt participated in combing hair; min A due to snarls Washed face with RUE without assistance Pt left sitting in recliner with spouse present, R jenaro rosales. RN updated. Cognition: Behavior / Mood: alert, cooperative, confused, and impaired task initiation; intermittent frustration Alert and oriented to: person, did not formally assess Follows commands: 1-2 step, 100% of the time, requires increased time, and requires repetition Attention: distractible, difficulty attending to task / directions, and requires cues to redirect Safety awareness: decreased insight into deficits and moderate impairment Communication: difficult to understand, mumbling/dysarthric Vision: Pt reporting diplopia at ~1 ft away Pt reporting vertical and horizontal diplopia Pt unable to accurately read clock, but was able to read letters on therapist badge Will continue to assess Pt able to track in all planes; 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 Staff Communication: Patient status, treatment, and mobility recommendations discussed with nursing/other staff. ASSESSMENT: Myla was seen for progression of OT per plan of care. He demonstrates good arousal andparticipation with frequent rest breaks. He is following most simple commands. He was able to perform grooming tasks and participate in seated balance tasks. Myla will benefit from ongoing therapeutic interventions to achieve pt's and therapy goals Equipment needs at discharge: to be determined Anticipated Discharge Disposition: detention facility Daily schedule / Staff Recommendations: Open shades and turn on lights during the day/lights off at night, Set-up patient with ADL tasks, allow patient to complete ADL tasks as independently as possible Provide choices as able, encourage safe coping skills (such as music, reading, coloring, word search, journaling) Have patient sit up in recliner via lift or bed in chair position during the day as much as possible Sit upright for all meals/meal times Goals: To be achieved within 2 weeks, by 05/31/23: Patient will consistently follow simple one-step commands. Inconsistent each session Patient will consistently be oriented x 4 and CAM (-). Patient will be complete grooming tasks in supported sitting w/ min A. Patient will be mod A with LB dressing. Patient will transfer to the commode with Mod A and least restrictive assistive device. Patient will be mod A w/ a sponge bath in supported sitting. Patient will participate in further vision evaluation. Therapy Frequency (OT): 2-4 times/wk Total Minutes, Occupational Therapy: 49 (2 TEF 1 SC) Pager: [phone] Salma Love OT 05/22/2023 Occupational Therapy Rehabilitation Department * Timbo Dubose RN - 05/22/2023 12:50 PM EDT Images from the original note were not included. Picc line routine assessment shows slight redness around the insertion site. There is no drainage present, pain or swelling noted. * Malissa Campa, RD - 05/22/2023 12:47 PM EDT Nutrition Progress Note Myla 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 male with unknown pmhx (no PCP or listed medications) who presents asa transfer from an OSH for evaluation of a right cerebellar IPH. Now s/p R EVD placement 04/17 givenhydrocephalus. Reason for Assessment: Follow-up Nutrition Recommendations: Diet advanced to Puree on 05/20. Will add [place] Instant Breakfast shakes TID to meals. Tube feeds discontinued on 05/19. Pt was made NPO and NGT removed. HOSE SUSPENDER CUTTER status reversed yesterday after improvement in status. Per team, no plans to replace DHT at this time, will see how patient does with PO intake. I was able to discuss with MICHELET Peters. Current Nutrition Regimen: Active Orders Diet Puree diet Frequency: Effective Now Number of Occurrences: Until Specified Assessment: Lab Results Component Value Date NA 145 05/22/2023 K 4.0 05/22/2023 CL 108 (H) 05/22/2023 CO2 27 05/22/2023 BUN 28 (H) 05/22/2023 CREATININE 1.20 05/22/2023 ESTGFR 67 05/22/2023 MAGNESIUM 0.73 05/22/2023 CALCIUM 9.4 05/22/2023 PHOS 2.4 (L) 05/22/2023 AST 17 05/21/2023 ALT 30 05/21/2023 ALKPHOS 94 05/21/2023 BILITOT 0.4 05/21/2023 BILIDIR 0.3 04/28/2023 TRIG 194 05/07/2023 HA1C 6.0 (H) 04/19/2023 [id number] 606 05/22/2023 25OHVITD 13 (L) 04/29/2023 SFOLATE 15.1 05/22/2023 IRON 25 (L) 04/29/2023 Lab Results Component Value Date POCGLU 139 05/22/2023 POCGLU 152 05/22/2023 POCGLU 119 05/22/2023 POCGLU 108 05/22/2023 POCGLU 150 05/21/2023 POCGLU 105 05/21/2023 Patient Lines/Drains/Airways Status Active Nutritional LDAs Name Placement date Placement time Site Days PICC Line 04/20/23 1410 Triple Lumen 5 Fr brachial vein, right 04/20/23 1410 -- 32 Urethral Catheter 05/19/23 1025 10 10 05/19/23 1025 -- 3 Pressure Injury 05/02/23 other (see comments) Stage 1 05/02/23 -- -- 20 Pressure Injury 05/09/23 other (see comments) suspected deep tissue injury 05/09/23 -- -- 13 Oxygen Therapy / Airway Device: None (Room air) Shift Pressure Injury Prevention Occiput: No Injury Thoracic Spine: No Injury Sacral: No Injury Ischial - left: No Injury Ischial - right: No Injury Heel - left: No Injury Heel - right: No Injury Elbow - left: No Injury Elbow - right: No Injury Device Sites: BP Cuff, ECG Leads, rebolledo, IV sites, O2 sat monitor, SCD's / venodynes Other Sites: ID band Last Bowel Movement: 05/20/23 Intake/Output Summary (Last 24 hours) at 05/22/2023 1247 Last data filed at 05/22/2023 1149 Gross per 24 hour Intake 1005.46 ml Output 2765 ml Net -1759.54 ml Relevant medications: vitamin D2 50,000 U/week, NaCl TID Anthropometrics: Admit Weight: 111.8 kg Estimated body mass index is 37.65 kg/m?? as calculated from the following: Height as of this encounter: 174 cm (5' 8.5). Weight as of this encounter: 114 kg (251 lb 5.2 oz). [place] Body Weight (IBW) (kg): 71.37 Wt Readings from Last 10 Encounters: 05/22/23 114 kg (251 lb 5.2 oz) Patient Vitals for the past 168 hrs: Weight 05/22/23 0511 114 kg (251 lb 5.2 oz) 05/19/23 0400 113.5 kg (250 lb 3.6 oz) 05/18/23 0600 113 kg (249 lb 1.9 oz) 05/17/23 0600 114.5 kg (252 lb 6.8 oz) 05/16/23 0000 114.2 kg (251 lb 12.3 oz) Weight Source: Bed Estimated / Assessed Needs: Fluid Requirements: Estimated Fluid Requirement Method: Weight Based Method Weight Based Method: 30 Weight Based Calculation: 2142 mL Metabolic cart study: 1820 kcals Kcal / K - 1785 Kcal (20 Kcal/Kg - 25 Kcal/Kg) Estimated Protein Needs: 86 g - 107 g (1.2 g/Kg - 1.5 g/Kg) Nutrition intake and intake history / interview: 05/21: Team consulted nutrition for concentrated renal feeds over the weekend, however, patient thenwent HOSE SUSPENDER CUTTER, had NGT removed, then HOSE SUSPENDER CUTTER status was reversed over the weekend. Pt on Puree diet and planis keep NGT out for now and see how patient does with PO intake. 05/18: TF continues at goal. Wt slowly trending down per documentation, receiving lasix prn. Will continue to monitor volume status and adjust TF accordingly. LBM 05/18. 05/14: TF at goal. Sips and chips (give meds) per TREASURY CONSULTANT recs, possible MBS today. Pt tolerating feeds per nsg, no s/s of discomfort. Per palliative note (05/14), does not feel pt would want prolonged feeding tube, possibly considering a comfort-focused approach. LBM 05/15. 05/11: TF at goal. Na wnl today. Continues NPO per TREASURY CONSULTANT recs, has been on TF since 04/18 and has [place] sump in place. 05/09: TF now at goal. Hyponatremic today and volume status trending down. Team requesting to switch to more concentrated TF formula. 05/07: TF switched to trickle today. Per team, c/f aspiration with pt sliding down in bed - requesting to trial intermittent TF. Will increase kcal from TF now that propofol d/c. 05/04: Propofol off. TF at goal. Hyponatremic. Extubated again today. 05/02: Propofol rate decreasing, will increase kcal from TF. 04/30: TF on APR hold. Propofol went up quite a bit. 04/27: Extubated and re-intubated. TF presently off. On small amt of propofol and javon. Multiple BM yesterday. Lasix drip. GFR <60. Met cart study 1820 kcals. 04/25: TF was off/on hold this morning due to TF formula not being available per flowsheet - checkedunit storage - plenty of Pep AF in top drawer. Pt back from CT scan and TF reportedly restarted. NoBM since 04/21. Phos and Na slightly low. 04/23: Consulted again for TF. Prior goal remains appropriate for now - advance to goal. Off propofol. Has small bore feeding tube. Needs to move bowels. NPO per TREASURY CONSULTANT. 04/19: Re-intubated. TF at 25 mL/hr today. On low dose propofol. No BM this admission. 04/17: Consulted for TF recommendations. May extubate tomorrow. On some propofol. On alcohol withdrawal protocol - thiamine, folic acid and Thera M ordered. Nutrition Focused Physical Exam: Not performed Reason NFPE Not Performed: Not indicated. Malnutrition Diagnosis: Not identified (Hieu, JPEN J Parenteral Enteral Nutr. 2011; 36(3): 273-83) Nutrition to continue to follow up while inpatient * Costa Mendoza MD - 05/22/2023 11:36 AM EDT Images from the original note were not included. Palliative Care Daily Progress Note NAME: Myla Acosta Encounter Date: 05/22/2023 Inpatient Attending: Crystal Mckenna MD PCP: Fransico Remy MD Hospital day: Hospital Day 34 days ID: Myla 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 male with right cerebellar hemorrhage, found also to have quite extensive aortic dissection (subclavian to iliac) who continues to be followed by the Palliative Careservice for goals of care, medical decision making and understanding of illness. Interval History: -a bit of a roller coaster this weekend -was much more delirious on the weekend to the point that family had thought it best to focus on Myla' comfort. Tete at bedside. -Today however, Myla is a bit more himself. He is not able to hold conversation, but is not in distress. Given this, Family elected to give him a bit more time to see where his body takes him -We met latrice Epstein at bedside and assured her of our support and acknowledged the challenging situation and that she is no matter what, obviously making loving decisions for Myla in this journey -Myla/Tete salvadorjulius 2 kids Royal Motta (his Tori) -Myla was a fiercely independent man who didn't like to seek medical attention if at all possible -We continue to see what is possible and Myla is protected from massive interventions if he crashes (Dnr/DNI); full supportive care otherwise at this time. Physical symptoms/ROS: confused, but awake/alert Emotional/coping/counseling: as above Were goals of care discussed?: Yes Counseling /recommendations made: Advance Care Planning: Current code status: Do NOT Attempt CPR - Inpatient Was an advance directive document completed during visit?: Not completed and none already present. Was one discussed? Was not discussed Does the patient have a completed POLST/MOLST?: No POLST/COLST on file. If not, was a POLST/MOLST completed?: No If neither, was the completion of a POLST/MOLST discussed?: No Relevant Palliative Care Medications: Scheduled: hydrALAZINE 100 mg Oral TID sodium chloride 1 g Oral TID heparin (porcine) 5,000 Units Subcutaneous Q8H YUSUF insulin lispro 1-4 Units Subcutaneous TID AC aspirin 300 mg Rectal Daily Or aspirin 81 mg Oral Daily cloNIDine 0.2 mg Oral Q8H FLUoxetine 20 mg Oral Daily QUEtiapine 100 mg Oral Nightly simethicone 40 mg Oral 4 Times Daily terazosin 1 mg Oral BID traMADoL 50 mg Oral Q8H ergocalciferoL (vitamin D2) 50,000 Units Oral Weekly camphor-methyl salicyl-menthoL Topical (Top) BID PRNs (including 24 hour usage): reviewed Social History/Context: Reviewed. No relevant changes Tete, son Royal/Tori, dtr Ángela Physical Examination: Patient Vitals for the past 8 hrs (Last 2 readings): Temp BP 05/22/23 0339 36.6 ??C (97.9 ??F) 162/69 Lying in bed, Awake, alert, confused, answering in very short words Respirations are non labored Extremities ar warm Labs/Radiology: relevant interval data reviewed, pertinent results include: Reviewed Palliative Care Assessment: Myla 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 male with right cerebellar hemorrhage, found also to have quite extensive aortic dissection (subclavian to iliac) who continues to be followed by the Palliative Care service for goals of care, medical decision making and understanding of illness. Plan/Recommendations: -a bit of a roller coaster this weekend -was much more delirious on the weekend to the point that family had thought it best to focus on Myla' comfort. Tete at bedside. -Today however, Myla is a bit more himself. He is not able to hold conversation, but is not in distress. Given this, Family elected to give him a bit more time to see where his body takes him -We met Tete at bedside and assured her of our support and acknowledged the challenging situation and that she is no matter what, obviously making loving decisions for Myla in this journey -Myla/Tete hae 2 kids Ángela Royal (his Tori) -Myla was a fiercely independent man who didn't like to seek medical attention if at all possible -We continue to see what is possible and Myla is protected from massive interventions if he crashes (Dnr/DNI); full supportive care otherwise at this time. Palliative Care follow-up plan: Medical team Nursing team Psychosocial Support Inpatient XXX Outpatient Explicitly offered follow-up?: tbd Follow-up needs?: Time frame for follow-up?: HOSPITAL MEDICINE DIRECTOR joint/separate?: 25 minutes were spent over the course of the day on this patient encounter including time spent in chart review, assessment of and counseling with the patient, counseling with the patient's childcare attendant(s), coordination with the consulting service, coordination with palliative IDT members and in doc umentation. Costa Mendoza MD Palliative care team pager #[phone] * Bentley Riley MD - 05/22/2023 10:26 AM EDT Internal Medicine Inpatient Consult Progress Note Myla 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 Medicine consulted for oliguric OVI. 24 Hour Events: - continues on RA - blood pressure under better control after multiple PRNs (olanzapine, haloperidol, enalaprit, labetalol) and initiation of nicardipine gtt, currently at 7.5 mg/hour - Cr normalized this AM and significant UOP (2.6 L) despite no diuresis Subjective: - seen this AM by this author ( Tete at bedside) - patient calm and OOB to chair - denies any complaints Objective: Vitals: Last value 24hr range T 36.6 ??C (97.9 ??F) Temp: [36.4 ??C (97.5 ??F)-36.8 ??C (98.2 ??F)] HR 76 Heart Rate: [66-91] BP 162/69 BP: (140-203)/(63-118) RR 20 Resp: [20-22] SpO2 96 % SpO2: [93 %-97 %] Physical Exam: General: alert, appropriate, in NAD. HEENT: EOMI, nonicteric. Oropharynx clear w/o erythema, plaques or exudates. No thrush; MMMs Neck: JVD appears normal Cardiac: Normal S1 and S2, Regular rate and rhythm; Systolic murmur best appreciate in the RUSB Respiratory: Nonlabored. Clear to auscultation bilaterally; No wheezes or crackles Abd: + BS; soft, non-tender, non-distended, no masses, no HSM appreciated Ext: No edema, cyanosis, clubbing, Radial and distal pedal pulses 2+ bilaterally Neuro: II-XII grossly intact. Alert and orientated, no-focal deficits Skin: No rashes, lesions or petechiae noted on limited exam Labs: Last 3 Lytes Recent Labs 05/22/23 0031 05/21/23 1027 05/20/23 1800 NA 145 145 149* K 4.0 4.2 5.4* CL 108* 107 111* CO2 27 29 27 BUN 28* 38* 39* CREATININE 1.20 1.81* 2.55* Last 3 LFTs Recent Labs 05/21/23 1027 04/28/23 0120 04/23/23 0024 04/19/23 0035 AST 17 26 28 22 ALT 30 38 26 19 ALKPHOS 94 61 64 66 BILITOT 0.4 0.5 0.4 0.3 BILIDIR -- 0.3 0.2 0.1 Last CBC Lab Results Component Value Date WBC 6.7 05/22/2023 RBC 2.80 (L) 05/22/2023 HGB 8.9 (L) 05/22/2023 HCT 27.2 (L) 05/22/2023 MCV 97.1 (H) 05/22/2023 MCH 31.8 05/22/2023 MCHC 32.7 05/22/2023 PLATELET 190 05/22/2023 RDWCV 14.6 (H) 05/22/2023 Assessment: 67 y.o. 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 Medicine consultedfor oliguric OVI. Patient likely now entering the polyuric phase of ATN recovery and close monitoring of intake/output is necessary to avoid hypovolemia. Patient may also have had cardiorenal syndrome and responded well to diuretics. Would obtain a TTE to help clarify. Recommendations: #Acute renal failure-suspect oliguric transitioning to polyuric phase of acute tubular necrosis caused by asystole and subsequent contrast - at risk for hypovolemia with polyuric phase of ATN - maintain net even intake and output (patientmay need IVF) - start half dose lisinopril 20 mg QD (home dose 40 mg) tomorrow - BMP, mag, phos QD, unless patient experiences respiratory decompensation or other change in status #Acute hypoxic and hypercapneic respiratory failure #Acute Respiratory acidosis with inadequate compensatory metabolic alkalosis - if respiratory decompensation, obtain CXR and consider repeat bolus of furosemide IV if signs of pulmonary vascular congestion #Type B Aortic Dissection - Continue with liberalized BP goals of SBP 160, but consider escalation of care to achieve better blood pressure control - TTE Recommendations conveyed to primary team. Patient was seen and discussed with Dr. Mtz. Consult service will continue to follow patient. x Recommendations are above, please page if further consultation required. Bentley Riley MD Internal Medicine, PGY3 Pager: [phone] Associated attestation - Nir Mtz MD - 05/22/2023 4:53 PM EDT Attending Staff Consult Documentation Please see Dr. Riley' note for details of the patient history of presentation and data. I have discussed, reviewed and agree with the documented history with ROS, social and family history, medication list, physical findings, labs/studies, Assessment and Plan of care. I have examined the patient myself and reviewed all labs and studies personally. Additions to the history, physical, assessment and plan include the following: Issues Acute kidney injury related to recent sinus pauses and contrast exposure, possibly with cardiorenalcomponent Has had a robust recovery in recent days. Would monitor for polyuria and aim for net even fluid balance in coming days, with IVF support as necessary. If renal function remains stable/continues to improve tomorrow, reasonable to re- introduce ALAN-i at decreased dose. Nir Mtz MD [facility] 05/22/2023 * Agustina Garg MD - 05/22/2023 7:16 AM EDT Images from the original note were not included. Neurology Progress Note Patient name: Myla Acosta Date of : 1955 PCP: Fransico Remy MD CC: R cerebellar IPH with VE HPI: Myla 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 He is s/p EVD placement on 04/17 and removal on 05/01. Was also found to have Hay B dissection with extension L SCV into bilateral external iliac 24 hour / interval Hx: - NAOE, VSS, BP: (140-203)/(63-118) - Hemoglobin 8.9 from 9.1 - Transitioned to HOSE SUSPENDER CUTTER Monday but reversed yesterday. Now awake, alert, following simple commands. - This morning he continues to appear agitated, though responding to questions. Not oriented to place or time. - Remains in bilateral upper extremity restraints. Home Medications: No current facility-administered medications on file prior to encounter. No current outpatient medications on file prior to encounter. Current Medications: Scheduled Meds: heparin (porcine) 5,000 Units Subcutaneous Q8H YUSUF insulin lispro 1-4 Units Subcutaneous TID AC aspirin 300 mg Rectal Daily Or aspirin 81 mg Oral Daily cloNIDine 0.2 mg Oral Q8H FLUoxetine 20 mg Oral Daily QUEtiapine 100 mg Oral Nightly simethicone 40 mg Oral 4 Times Daily sodium chloride 2 g Oral TID terazosin 1 mg Oral BID traMADoL 50 mg Oral Q8H hydrALAZINE 10 mg Intravenous Q4H ergocalciferoL (vitamin D2) 50,000 Units Oral Weekly camphor-methyl salicyl-menthoL Topical (Top) BID Past Medical & Surgical History: No past medical history on file. No past surgical history on file. Allergy: No Known Allergies Family History: No family history on file. Social History Socioeconomic History Marital status: Spouse name: Not on file Number of children: Not on file Years of education: Not on file Highest education level: Not on file Occupational History Not on file Tobacco Use Smoking status: Unknown Smokeless tobacco: Not on file Substance and Sexual Activity Alcohol use: Defer Drug use: Defer Sexual activity: Defer Other Topics Concern Not on file Social History Narrative to Kyra X 44 years. They have 3 children: all in their 20s. 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 He has a significant alcohol abuse history with daily drinking. Was never one to go to get medical care. Social Determinants of Health Financial Resource Strain: Not on file Food Insecurity: No Food Insecurity (04/20/2023) Hunger Vital Sign Worried About Running Out of Food in the Last Year: Never true Ran Out of Food in the Last Year: Never true Transportation Needs: No Transportation Needs (04/20/2023) PRAPARE - Transportation Lack of Transportation (Medical): No Lack of Transportation (Non-Medical): No Physical Activity: Not on file Intimate Partner Violence: Not on file Housing Stability: Unknown (04/20/2023) Housing Stability Vital Sign Unable to Pay for Housing in the Last Year: No Number of Places Lived in the Last Year: Not on file Unstable Housing in the Last Year: No Physical Exam: Vitals: Temp: [36.4 ??C (97.5 ??F)-36.8 ??C (98.2 ??F)] Heart Rate: [66-91] Resp: [20-22] BP: (140-203)/(63-118) SpO2: [93 %-97 %] Heart Rate from SpO2: [65 bpm-95 bpm] Gen: Patient of apparent stated age, awake, alert, NAD Neuro Exam: MS: Awake, alert, garbled speech but comprehensible at times (states , 's name correctly). Disoriented to time, location, age, reason for hospitalization. Unable to identify that he is in a hospital when given choices. Intermittently following simple commands. CN: PERRL, VOR Intact No apparent facial asymmetry Hearing intact to voice Motor: Purposeful antigravity movement in all 4 extremities Sensation: AVI due to patient being easily distracted; deferred noxious stimuli due to patient previously striking out at staff when agitated Labs: Last 3 wbc, hgb, hct plt Recent Labs 05/22/23 0035 05/21/23 1027 05/20/23 0342 WBC 6.7 6.4 6.7 HGB 8.9* 8.8* 9.1* HCT 27.2* 28.2* 29.8* PLATELET 190 192 209 Last 3 Lytes Recent Labs 05/22/23 0031 05/21/23 1027 05/20/23 1800 NA 145 145 149* K 4.0 4.2 5.4* CL 108* 107 111* CO2 27 29 27 BUN 28* 38* 39* CREATININE 1.20 1.81* 2.55* Last 3 LFTs Recent Labs 05/21/23 1027 04/28/23 0120 04/23/23 0024 04/19/23 0035 AST 17 26 28 22 ALT 30 38 26 19 ALKPHOS 94 61 64 66 BILITOT 0.4 0.5 0.4 0.3 BILIDIR -- 0.3 0.2 0.1 Last Ca, Mg, Phos Recent Labs 05/22/23 0031 CALCIUM 9.4 PHOS 2.4* MAGNESIUM 0.73 Last 3 TFT Recent Labs 04/19/23 0035 TSH 0.74 Last 3 Lipids Recent Labs 05/07/23 0110 05/06/23 1050 05/06/23 0030 04/20/23 0110 04/19/23 0035 CHLPL -- -- -- -- 220 HDL -- -- -- -- 86 LDLDIRECT -- -- -- -- 129 TRIG 194 292 1,032 < > 78 < > = values in this interval not displayed. Last 3 HgbA1C Recent Labs 04/19/23 0035 HA1C 6.0* Last CRP, SEDRATENo results for input(s): CRP, SEDRATE in the last 7068 hours. Radiology: CT Head 05/01 No change in ventricular caliber, intraventricular hemorrhage or right cerebellar hemorrhage with moderate surrounding edema. MRI Brain wwo 04/19 Recent infarct involving the posterior medial LEFT parietal lobe. Unchanged size of RIGHT cerebellar intraparenchymal hemorrhage with unchanged volume of intraventricular blood products. Vasogenic edema tracks along the superior right cerebellar peduncle into the right midbrain. Unchanged ventricular caliber with some hyperintense signal along the ventricular surface suggesting some transependymal CSF flow. No abnormal brain parenchymal or meningeal enhancement to suggest underlying malignancy. Small foci of susceptibility related signal loss separate from the areas of hemorrhage, which couldrepresent sequela of small vessel disease versus cerebral amyloid angiopathy. CTA COW 04/17 No evidence of aneurysm or vascular malformation. Bilateral Renal Artery Duplex 04/27 Comment: Limited exam due to time of day (study started at 1600), overlying bowel gas, patient positioning and patient body habitus. Right: Unable to study kidney, renal artery, and renal vein due to limitations listed above. Unableto determine patency. Left: Patent distal main renal artery with no evidence of hemodynamically significant stenosis. Patent main renal vein. Due to limitations listed above unable to study origin and proximal to mid renal artery; cannot exclude higher velocities/ stenosis here. EKG 04/26: TTE 04/18: There is severe concentric left ventricular hypertrophy. Left ventricular systolic function is normal. The left ventricular ejection fraction is 70% by Hester's biplane. There are no segmental wall motion abnormalities. The right ventricle is probably normal in size. Right ventricular function is probably normal. No significant valve disease. The aortic root is dilated. The diameter at the level of the sinuses of Valsalva is 4.2 cm. The ascending aorta is dilated. The maximum diameter of the proximal ascending aorta is 4.5 cm. No comparison study is available. Assessment and Plan: Myla 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 He is s/p EVD placement on 04/17 and removal on 05/01. 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 Pt has required copious anti-hypertensive agents in order to achieve adequate BP control; unfortunately this has been complicated by profound bradycardiaand, at times, episodes of brief asystole (05/13-05/14). Per family request, Palliative has been consulted and family meeting on 05/15. Pt is now DNR/DNI. He was downgraded to step down level to the vascular neurology service on 05/18 for further management of IVH as well as aortic dissection and other medical conditions as below. 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 05/22/2023 Per discussion with , reinitiate medical management but without escalation of care. Declines DHT replacement today. Goals of care have been discussed with the patient's , and she confirms that she would not want intubation or dialysis and further states that she would not want him to returnto the ICU under any circumstances. No escalation of care, but plan to continue management with conservative measures as able in stepdown. Medicine team engaged, appreciate recs. Patient has DHT out, has been taking meds PO today. Restarted oral Hydralazine with goal of stopping IV antihypertensives. 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 # concern for mediastinal hematoma # HFpEF - maintain SBP < 160mmHg, HR < 80bpm - current anti-hypertensive regimen: - --> d/c'd 2/2 asystole (05/13) - --> d/c'd /2 asystole (05/14) - -->discontinued 05/19 (OVI) - terazosin 1mg BID - hydralazine 200mg q6h-->reduced to 100 mg q6h on 05/19 (relative hypotension) - -->discontinued on 05/19 (relative hypotension) - aldactone 100mg daily (05/15) - decrease clonidine to 0.2mg q8h (05/14) --> held afternoon dose on 05/19 - severe bradycardia, prolonged pauses (starting 05/13); likely medication-induced - prefer anticholinergics over pacing - events seemed to have improved throughout today with holding diltiazem and carvedilol - ASA 81mg daily resumed on 05/02 #Respiratory failure #Respiratory acidosis 05/19 - extubated 04/18, re-intubated 04/19 d/t agitation/hypoxia, extubated 04/21 , re- intubated 04/26 d/t mental status, now extubated and doing well (05/04) - does not want pt re-intubated under any circumstances or care escalated to ICU - underwent bronch 04/19 with suctioning of mucous plugs L>R - goal O2 sats > 92% - CPAP QHS as tolerated (tolerating 4h QHS) - airway clearance, 3% neb Q4H, Duonebs PRN as per RT # urinary retention # total body fluid overload # hyponatremia, likely diuresis-induced # Concern for ATN iso recent asystole and contrast - salt tab 3g TID --> decreased to 2g TID --> decreased to 1g TID (05/21) - use saline flushes with enteral meds instead of water flushes - Vit D2 50,000 units weekly on Sundays - s/p 500 cc fluid bolus and mIVF, as well as FWB (200 cc TID was ordered) on 05/19; however discontinued fluids per medicine recs given concern for ATN with oliguria and fluid overload # right brachial DVT - daily CBC - DVT ppx: SCDs, SQH # right wrist pressure injury - followed by Wound Care # Prophylaxis heparin 5000units SC Q8H # Supportive care -full liquid diet (NPO if obtunded) -Tylenol PRN # DNR/DNI # NO ESCALATION OF CARE TO ICU Agustina Garg MD Neurology Vascular Neurology Pager [phone] Associated attestation - rCystal Mckenna MD - 05/22/2023 1:58 PM EDT Neurology Staff Note I have reviewed the resident's history during the visit and I agree with the details as written. Myphysical examination confirms the resident's findings. The assessment and plan were formulated in discussion with me at the time of the visit and I agree with them as documented. at bedside and he is drinking some coke. Monitoring BP as we raise his hydralazine. Would keepI/Os close and use intermittent IVFs as needed Resume rehab therapy. Avoid replacing DHT for now, his may agree to this in the future. * Lj Fraga RN - 05/21/2023 5:10 PM EDT Pt family has left bedside. Family understands need for restraints to prevent removal of devices/lines. Restraints applied per provider order. * Tanja-Kianna Tucker, ASMITA - 05/21/2023 3:24 PM EDT Speech Therapy Progress Note Patient Profile: Myla 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 male Myla 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 male with limited known medical history who initially presented to [facility] with nausea and vomiting and was found to have a right cerebellar IPH. He was intubated at OSH for airway protection given worsening somnolence and transferred to [facility] on 04/18/2023. Hospital course has been complicated by hypoxic respiratory failure requiring multiple intubations (04/17-04/18, 04/18-04/21, 04/26-05/04; 12 days total). TREASURY CONSULTANT has been following since 04/23 for cognition anddysphagia management. Interval History: BP 200/100 currently. Starting drip to control. Subjective: Family present and supportive, trying to encourage him to eat. Pt eating a few bites pudding, mostly drinking soda. No DHT in place. Family has refused restraints at this time, understanding and accepting concerns for pulling out lines and pt/staff safety. Objective: Pt seen for dysphagia management today. Pain: Patient in no acute observed discomfort. Respiratory Status: Room air saturating at 95%. Current Diet: Full Liquid Feeding and Oral Care: Pt is dependent Cognitive-Linguistic Status: alert, easily distracted, restless Positioning: HOB at 70 degrees, pt refusing higher Oral Motor Exam: Based on observation during talking and eating, did not formally assess due to AMS. WFL Impaired Comments STRUCTURES Facial Symmetry X Lips X Tongue X Jaw X Palate/Velum Unable to assess Dentition OTHER Phonation X Intelligibility X Volitional Cough Did not participate Sensation X Secretion Management X Bolus Presentation(s) Tested Comments Thin liquids X By by straw [place] thick liquids Honey thick liquids Pureed solids X By spoon Dysphagia soft Mechanical soft Regular solids Pills Other Oral Preparatory Phase Mastication: NA Oral Transit: holding in mouth at times Bolus Cohesion: reduced but adequate for purees Oral Containment: adequate lip seal on straw and spoon Oral Stasis: at times pt needs to be cued to swallow what is in his mouth Pharyngeal Phase Laryngeal Elevation: intermittently delayed Vocal quality change: not noted Cough / throat clear: not noted Pt. complaint of food getting stuck: not noted, though pt's self awareness is limited Fatigue across trials: not noted at this time Respiratory rate and respiratory swallow pattern: no changes noted Esophageal Phase Insufficient trial volume to meaningfully comment. Compensatory Techniques: Pt was unable to return demonstrate use of strategies secondary to current mental status. Education: Patient, Family educated on role of the TREASURY CONSULTANT, findings and plan of care, and aspiration precautions. Patient status, treatment and swallow recommendations were discussed with nursing. Assessment: MD contacted this TREASURY CONSULTANT mid morning, pt no longer HOSE SUSPENDER CUTTER, up w/ family eating ice cream. Requested new order to see pt, as orders were cancelled when pt went HOSE SUSPENDER CUTTER. Order received later in day and pt seen. Family present and supportive, attempting to get pt to eat and drink more. Mostly soda and pudding. RN noting pt will spit out meds if crushed at this point, though in past, pt has also spit out whole meds at times. Family requesting wider variety of foods, agreeable to items like mashedpotatoes and gravies. Pt tolerating puddings and applesauce at this time so cleared for pureed dietand regular liquids. Agree w/ primary TREASURY CONSULTANT who notes that pt's dysphagia is likely multi-factorial, but safety and ability to take adequate intake is highly variable and dependent on his fluctuations in mental status. Diagnosis: oral and suspected pharyngeal dysphagia, AMS Recommendations: Diet: Puree, Thin liquids PO medications: whole in bite of pudding or applesauce Aspiration precautions: One to one direct supervision during all PO intake to ensure feeding strategies are followed Feed only when alert Reduce environmental distractions Needs verbal cues to use recommended strategies Upright position during meals and for at least 30 mins following Small sips and bites while eating Slow rate; swallow between bites Check oral cavity frequently for pocketing Pt will require feeding assistance at meal times Excellent oral care x2/day recommended to prevent oral bacterial growth, oral built up of dried secretions and reduce risk for aspiration pneumonia Pt will benefit from continued TREASURY CONSULTANT services while hospitalized Speech Therapy Goals: (To be met by discharge) Pt will tolerate least restrictive diet without evidence of dysphagia / aspiration. ONGOING Pt / caregiver will be independent with aspiration precautions, diet modifications, and safe swallowing strategies. ONGOING Pt will maintain hydration / nutrition with optimal safety and efficiency. ONGOING Pt will participate in ongoing cognitive-linguistic evaluation/intervention as indicated. ONGOING Pt/caregivers will follow anti-delirium precautions independently with assist from staff as needed ONGOING Plan: Therapy Frequency (TREASURY CONSULTANT Eval): 2-4 times/wk Pt unable to give informed agreement with plan at this time due to decreased MS. Family in agreement. Total Minutes (Speech Language Pathology): 25 Kianna Avery MA, [facility]-TREASURY CONSULTANT Pager: [phone] Speech-Language Pathology Inpatient Rehabilitation Medicine * Lj Fraga RN - 05/21/2023 2:01 PM EDT Call from provider. Advised of hypertension, all PRN BP meds given. Per provider give Zyprexa PRN and continue to monitor BP. * Lj Fraga RN - 05/21/2023 11:09 AM EDT RN to put restraints on as pt agitated and attempting to pull at lines/tubes. Family refuses restraints. told 2x RN's that she would assume responsibility for patient's behavior and potential injury from behaviors. Charge nurse notified and charge nurse verified assuming responsibility. Jere pardo informed family that if pt pulls lines/tubes out he would need to be reassessed for restraints. Family understands. * Bentley Riley MD - 05/21/2023 10:56 AM EDT Internal Medicine Inpatient Consult Progress Note Myla 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 Medicine consulted for oliguric OVI. 24 Hour Events: - received furosemide 120 mg IV at 1633 yesterday with robust UOP (2 L) -decision made yesterday evening to pursue HOSE SUSPENDER CUTTER, but reversed this AM after clinical improvement (awake, alert and on room air) and medicine re-engaged by neurology Subjective: - seen this PM by this author ( Tete at bedside), but patient acutely agitated and history limited apart from patient reporting some difficulty breathing Objective: Vitals: Last value 24hr range T 36.4 ??C (97.5 ??F) Temp: [36.4 ??C (97.5 ??F)-37.8 ??C (100 ??F)] HR 83 Heart Rate: [77-87] BP 188/86 BP: (115-203)/(70-113) RR 22 Resp: [19-22] SpO2 95 % SpO2: [93 %-100 %] Physical Exam: Limited secondary to acute agitation (was taking swings at ) Gen: Acutely agitated Pulm: Breathing comfortably on RA Labs: Last 3 Lytes Recent Labs 05/21/23 1027 05/20/23 1800 05/20/23 1136 NA 145 149* 145 K 4.2 5.4* 4.9 CL 107 111* 113* CO2 29 27 27 BUN 38* 39* 36* CREATININE 1.81* 2.55* 2.55* Last 3 LFTs Recent Labs 05/21/23 1027 04/28/23 0120 04/23/23 0024 04/19/23 0035 AST 17 26 28 22 ALT 30 38 26 19 ALKPHOS 94 61 64 66 BILITOT 0.4 0.5 0.4 0.3 BILIDIR -- 0.3 0.2 0.1 Last CBC Lab Results Component Value Date WBC 6.4 05/21/2023 RBC 2.81 (L) 05/21/2023 HGB 8.8 (L) 05/21/2023 HCT 28.2 (L) 05/21/2023 MCV 100.4 (H) 05/21/2023 MCH 31.3 05/21/2023 MCHC 31.2 (L) 05/21/2023 PLATELET 192 05/21/2023 RDWCV 14.9 (H) 05/21/2023 Other Labs/Studies: 05/20: VBG 7.38/49 Assessment: 67 y.o. 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 Medicine consultedfor oliguric OVI. Patient likely now entering the polyuric phase of ATN recovery and close monitoring of intake/output is necessary to avoid hypovolemia. Patient may also have had cardiorenal syndrome and responded well to diuretics. Would obtain a TTE (not urgent, can obtain tomorrow). If patient has worsened respiratory status, can consider re-dosing furosemide, but would obtain chest x-ray prior. Patient will severely elevated blood pressures and if treatment of agitation does not reduce, would consider escalation of care for delirium and BP management to avoid worsening of dissection. Rest per below Recommendations: #Acute renal failure-suspect oliguric transitioning to polyuric phase of acute tubular necrosis caused by asystole and subsequent contrast - at risk for hypovolemia with polyuric phase of ATN - maintain net even intake and output (patientmay need IVF) - hold lisinopril - stop Sevelamer TID - BMP, mag, phos QD, unless patient experiences respiratory decompensation or other change in status #Acute hypoxic and hypercapneic respiratory failure #Acute Respiratory acidosis with inadequate compensatory metabolic alkalosis - if respiratory decompensation, obtain CXR and consider repeat bolus of furosemide 120 mg IV if signs of pulmonary vascular congestion #Type B Aortic Dissection - Continue with liberalized BP goals of SBP 160, but consider escalation of care to achieve better blood pressure control - TTE Recommendations conveyed to primary team. Patient was seen and discussed with Dr. Mtz. x Consult service will continue to follow patient. Recommendations are above, please page if further consultation required. Bentley Riley MD Internal Medicine, PGY3 Pager: [phone] Associated attestation - Nir Mtz MD - 05/21/2023 2:58 PM EDT Attending Staff Consult Documentation Please see Dr. Riley' note for details of the patient history of presentation and data. I have discussed, reviewed and agree with the documented history with ROS, social and family history, medication list, physical findings, labs/studies, Assessment and Plan of care. I have examined the patient myself and reviewed all labs and studies personally. Additions to the history, physical, assessment and plan include the following: Issues Oliguric acute kidney injury suspect related to sinus pauses and contrast exposure, with possible cardiorenal component Had excellent response to IV diuresis yesterday with subsequent improving renal function on labs today and self-weaned off supplemental oxygen, with blood gas appearing well compensated as well. Would aim for net even fluid balance today, obtain repeat TTE. Continue to hold lisinopril for today, may need IV/drip medications for impulse control in the setting of type B dissection. Nir Mtz MD Hospital Medicine 05/21/2023 * Nayana Mcginnis Diane, OPERATIONS INTERN - 05/21/2023 8:18 AM EDT Images from the original note were not included. Neurology Progress Note Patient name: Myla Acosta Date of : 1955 PCP: Fransico Remy MD CC: R cerebellar IPH with VE HPI: Myla 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 He is s/p EVD placement on 04/17 and removal on 05/01. Was also found to have Hay B dissection with extension L SCV into bilateral external iliac 24 hour / interval Hx: - Transitioned to HOSE SUSPENDER CUTTER overnight. Now awake, alert, following simple commands. - Last Bowel Movement: 05/20/23 Home Medications: No current facility-administered medications on file prior to encounter. No current outpatient medications on file prior to encounter. Current Medications: Scheduled Meds: heparin (porcine) 5,000 Units Subcutaneous Q8H YUSUF insulin lispro 1-4 Units Subcutaneous TID AC aspirin 300 mg Rectal Daily Or aspirin 81 mg Oral Daily cloNIDine 0.2 mg Oral Q8H [START ON 05/24/2023] ergocalciferoL (vitamin D2) 50,000 Units Oral Weekly FLUoxetine 20 mg Oral Daily QUEtiapine 100 mg Oral Nightly simethicone 40 mg Oral 4 Times Daily sodium chloride 2 g Oral TID terazosin 1 mg Oral BID traMADoL 50 mg Oral Q8H hydrALAZINE 10 mg Intravenous Q4H camphor-methyl salicyl-menthoL Topical (Top) BID Past Medical & Surgical History: No past medical history on file. No past surgical history on file. Allergy: No Known Allergies Family History: No family history on file. Social History Socioeconomic History Marital status: Spouse name: Not on file Number of children: Not on file Years of education: Not on file Highest education level: Not on file Occupational History Not on file Tobacco Use Smoking status: Unknown Smokeless tobacco: Not on file Substance and Sexual Activity Alcohol use: Defer Drug use: Defer Sexual activity: Defer Other Topics Concern Not on file Social History Narrative to Kyra X 44 years. They have 3 children: all in their 20s. 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 He has a significant alcohol abuse history with daily drinking. Was never one to go to get medical care. Social Determinants of Health Financial Resource Strain: Not on file Food Insecurity: No Food Insecurity (04/20/2023) Hunger Vital Sign Worried About Running Out of Food in the Last Year: Never true Ran Out of Food in the Last Year: Never true Transportation Needs: No Transportation Needs (04/20/2023) PRAPARE - Transportation Lack of Transportation (Medical): No Lack of Transportation (Non-Medical): No Physical Activity: Not on file Intimate Partner Violence: Not on file Housing Stability: Unknown (04/20/2023) Housing Stability Vital Sign Unable to Pay for Housing in the Last Year: No Number of Places Lived in the Last Year: Not on file Unstable Housing in the Last Year: No Physical Exam: Vitals: Temp: [36.4 ??C (97.5 ??F)-37.4 ??C (99.3 ??F)] Heart Rate: [76-91] Resp: [20-22] BP: (142-203)/(63-118) SpO2: [93 %-96 %] Heart Rate from SpO2: [77 bpm-95 bpm] Gen: Patient of apparent stated age, awake, alert, NAD Neuro Exam: MS: Awake, alert, garbled speech but comprehensible at times (states , 's name correctly). Disoriented to time, location, age, reason for hospitalization. Unable to identify that he is in a hospital when given choices. Intermittently following simple commands. CN: PERRL, VOR Intact No apparent facial asymmetry Hearing intact to voice Motor: Purposeful antigravity movement in all 4 extremities Sensation: AVI due to patient being easily distracted; deferred noxious stimuli due to patient previously striking out at staff when agitated Labs: Last 3 wbc, hgb, hct plt Recent Labs 05/21/23 1027 05/20/23 0342 05/18/23 0037 WBC 6.4 6.7 7.0 HGB 8.8* 9.1* 9.3* HCT 28.2* 29.8* 28.9* PLATELET 192 209 209 Last 3 Lytes Recent Labs 05/21/23 1027 05/20/23 1800 05/20/23 1136 NA 145 149* 145 K 4.2 5.4* 4.9 CL 107 111* 113* CO2 29 27 27 BUN 38* 39* 36* CREATININE 1.81* 2.55* 2.55* Last 3 LFTs Recent Labs 05/21/23 1027 04/28/23 0120 04/23/23 0024 04/19/23 0035 AST 17 26 28 22 ALT 30 38 26 19 ALKPHOS 94 61 64 66 BILITOT 0.4 0.5 0.4 0.3 BILIDIR -- 0.3 0.2 0.1 Last Ca, Mg, Phos Recent Labs 05/21/23 1027 CALCIUM 9.9 PHOS 3.1 MAGNESIUM 0.87 Last 3 TFT Recent Labs 04/19/23 0035 TSH 0.74 Last 3 Lipids Recent Labs 05/07/23 0110 05/06/23 1050 05/06/23 0030 04/20/23 0110 04/19/23 0035 CHLPL -- -- -- -- 220 HDL -- -- -- -- 86 LDLDIRECT -- -- -- -- 129 TRIG 194 292 1,032 < > 78 < > = values in this interval not displayed. Last 3 HgbA1C Recent Labs 04/19/23 0035 HA1C 6.0* Last CRP, SEDRATENo results for input(s): CRP, SEDRATE in the last 7068 hours. Radiology: CT Head 05/01 No change in ventricular caliber, intraventricular hemorrhage or right cerebellar hemorrhage with moderate surrounding edema. MRI Brain wwo 04/19 Recent infarct involving the posterior medial LEFT parietal lobe. Unchanged size of RIGHT cerebellar intraparenchymal hemorrhage with unchanged volume of intraventricular blood products. Vasogenic edema tracks along the superior right cerebellar peduncle into the right midbrain. Unchanged ventricular caliber with some hyperintense signal along the ventricular surface suggesting some transependymal CSF flow. No abnormal brain parenchymal or meningeal enhancement to suggest underlying malignancy. Small foci of susceptibility related signal loss separate from the areas of hemorrhage, which couldrepresent sequela of small vessel disease versus cerebral amyloid angiopathy. CTA COW 04/17 No evidence of aneurysm or vascular malformation. Bilateral Renal Artery Duplex 04/27 Comment: Limited exam due to time of day (study started at 1600), overlying bowel gas, patient positioning and patient body habitus. Right: Unable to study kidney, renal artery, and renal vein due to limitations listed above. Unableto determine patency. Left: Patent distal main renal artery with no evidence of hemodynamically significant stenosis. Patent main renal vein. Due to limitations listed above unable to study origin and proximal to mid renal artery; cannot exclude higher velocities/ stenosis here. EKG 04/26: TTE 04/18: There is severe concentric left ventricular hypertrophy. Left ventricular systolic function is normal. The left ventricular ejection fraction is 70% by Hester's biplane. There are no segmental wall motion abnormalities. The right ventricle is probably normal in size. Right ventricular function is probably normal. No significant valve disease. The aortic root is dilated. The diameter at the level of the sinuses of Valsalva is 4.2 cm. The ascending aorta is dilated. The maximum diameter of the proximal ascending aorta is 4.5 cm. No comparison study is available. Assessment and Plan: Myla 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 He is s/p EVD placement on 04/17 and removal on 05/01. 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 Pt has required copious anti-hypertensive agents in order to achieve adequate BP control; unfortunately this has been complicated by profound bradycardiaand, at times, episodes of brief asystole (05/13-05/14). Per family request, Palliative has been consulted and family meeting on 05/15. Pt is now DNR/DNI. He was downgraded to step down level to the vascular neurology service on 05/18 for further management of IVH as well as aortic dissection and other medical conditions as below. 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 Per discussion with , reinitiate medical management but without escalation of care. Declines DHT replacement today. Goals of care have been discussed with the patient's , and she confirms that she would not want intubation or dialysis and further states that she would not want him to returnto the ICU under any circumstances. No escalation of care, but plan to continue management with conservative measures as able in stepdown. Medicine team engaged, appreciate recs. Patient has DHT out, refusing meds this afternoon. TREASURY CONSULTANT team reengaged for recs. PRN BP meds added. 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 # concern for mediastinal hematoma # HFpEF - maintain SBP < 160mmHg, HR < 80bpm - current anti-hypertensive regimen: - --> d/c'd 2/2 asystole (05/13) - --> d/c'd 2/2 asystole (05/14) - -->discontinued 05/19 (OVI) - terazosin 1mg BID - hydralazine 200mg q6h-->reduced to 100 mg q6h on 05/19 (relative hypotension) - -->discontinued on 05/19 (relative hypotension) - aldactone 100mg daily (05/15) - decrease clonidine to 0.2mg q8h (05/14) --> held afternoon dose on 05/19 - severe bradycardia, prolonged pauses (starting 05/13); likely medication-induced - prefer anticholinergics over pacing - events seemed to have improved throughout today with holding diltiazem and carvedilol - ASA 81mg daily resumed on 05/02 #Respiratory failure #Respiratory acidosis 05/19 - extubated 04/18, re-intubated 04/19 d/t agitation/hypoxia, extubated 04/21 , re- intubated 04/26 d/t mental status, now extubated and doing well (05/04) - does not want pt re-intubated under any circumstances or care escalated to ICU - underwent bronch 04/19 with suctioning of mucous plugs L>R - goal O2 sats > 92% - CPAP QHS as tolerated (tolerating 4h QHS) - airway clearance, 3% neb Q4H, Duonebs PRN as per RT # urinary retention # total body fluid overload # hyponatremia, likely diuresis-induced # Concern for ATN iso recent asystole and contrast - salt tab 3g TID --> decreased to 2g TID - use saline flushes with enteral meds instead of water flushes - Vit D2 50,000 units weekly on Sundays - s/p 500 cc fluid bolus and mIVF, as well as FWB (200 cc TID was ordered) on 05/19; however discontinued fluids per medicine recs given concern for ATN with oliguria and fluid overload # right brachial DVT - daily CBC - DVT ppx: SCDs, SQH # right wrist pressure injury - followed by Wound Care # Prophylaxis heparin 5000units SC Q8H # Supportive care -full liquid diet (NPO if obtunded) -Tylenol PRN # DNR/DNI # NO ESCALATION OF CARE TO ICU Nayana Mcginnis APRN Neurology Vascular Neurology Pager [phone] Associated attestation - Crystal Mckenna MD - 05/22/2023 1:54 PM EDT Images from the original note were not included. Neurology Staff Note R cerebellar hemorrhage 04/17 s/p EVD placement and removal Overall stable, urine outpt good so far today. Eating ice cream Monitoring BP as we resume and raise his hydralazine and can resume his spironolactone but depends on his willingingness to take orally. Using haldol and zyprexa if not aking seroqel Resume rehab therapy and efforts to move eventually to a facility for inpt rehab This patient was seen in conjunction with our associate provider. I performed the majority of this shared visit based on medical decision making.. I independently evaluated the patient. I reviewed the vital signs and the I/Os. Patient Vitals for the past 8 hrs: BP Pulse SpO2 05/22/23 1149 135/73 -- -- 05/22/23 1015 -- 77 96 % Intake/Output Summary (Last 24 hours) at 05/22/2023 1316 Last data filed at 05/22/2023 1149 Gross per 24 hour Intake 965.21 ml Output 2765 ml Net -1799.79 ml Exam findings: Resting now, breathing comfortably. I completed all the Medical Decision Making on this date including:, All problems addressed at the visit and the status of problems, and Reviewed and ordered or supervised ordering of lab /radiology/other tests * Kianna Avery SLP - 05/21/2023 8:13 AM EDT Speech-Language Pathology Consult Note TREASURY CONSULTANT team has been following pt for dysphagia. Pt has now been made HOSE SUSPENDER CUTTER. Liberalize diet as tolerated in accordance w/ pt comfort and family wishes. TREASURY CONSULTANT team will sign off. Please contact us w/ any concerns or questions if needed. Kianna Avery MA [facility]-TREASURY CONSULTANT Inpatient Rehabilitation Medicine pager:# [phone] * Cooper Ferrera DO - 05/20/2023 5:[address] Ashford and myself spoke with the patient's Tete this evening. She confirmed that the patient was not to escalate care to the ICU for any circumstance. If the patient required ICU level care, he would transition to a comfort focused approach. 7:37 PM ADDENDUM: The patient remains encephalopathic and VBG continues to show respiratory acidosis despite a trial of BiPAP. Continued use of BiPAP to correct his acidosis would require ICU level care, and this is confirmed to be against the patient's goals of care. I spoke with Tete and confirmed that the patient would transition to comfort measures only at this time. Palliative care was paged to be aware of this change. HOSE SUSPENDER CUTTER order set was placed. Noninvasive ventilation and enteric tube will be discontinued. All medications that were not for the purposes of comfort were discontinued. Tete will return to bedside early in the morning unless this author is made aware of a clinical deterioration. Overnight nursing staff aware and will page me with any decline. Cooper Ferrera, DO Neurology PGY3 05/20/2023 * Ned Fuentes, RT - 05/20/2023 3:03 PM EDT Respiratory Therapy Heated Humidified High Flow INDICATIONS: Work of breathing HIGH FLOW SETTINGS: Interface: (S) High flow nasal cannula (Per VBG / provider) Flow: 40 L/min FiO2: 40 % VITAL SIGNS: HR: 80 RR: 19 SpO2: 98 % SKIN ASSESSMENT: NIV Skin Assessment WDL: WDL Mepilex Applied: Yes Nares Assessment WDL: WDL CURRENT MEDICATIONS: Duoneb Q4 PRN 3% Hypertonic Saline Q4 PRN BREATH SOUNDS: Diminished bibasilar ASSESSMENT: Received patient on 3L NC, patient obtunded, marlene marie breathing pattern and not following commands. 1143: VBG 7./60/39/23.4 1202: Per VBG / provider, placed on HFNC 40L 40%. 1310: VBG 7./55/38/22.5 1649: Per plan / VBG, placed on Bipap 18/8 21%. Sitter at bedside. Life safety and crit care aware. 1806: VBG 7.23/61/48/25 Patient remained stable on HFNC t/o the afternoon. PLAN: Continue to support patient on HFNC / Bipap. Plausible HOSE SUSPENDER CUTTER. Ned Fuentes RT * Lj Fraga RN - 05/20/2023 9:32 AM EDTSummary: Crit Lab K 6.2 Team paged * Bharathi Ashford DO - 05/20/2023 9:14 AM EDT Images from the original note were not included. Neurology Progress Note Patient name: Myla Acosta Date of : 1955 PCP: Fransico Remy MD Stroke Assessment: Date last well known:: 04/17/23 Time last well known:: 2100 Date of discovery of symptoms:: 04/18/23 Time of discovery of symptoms:: 0000 The time difference from patients last known well to ED arrival OR inpatient stroke alert was (choose one): Greater than 4.5 hours Date acute stroke team was at bedside:: 04/18/23 Time acute stroke team was at bedside:: 1050 CT interpretation date: 04/18/23 CT interpretation time:: 0300 Was dysphagia screen performed?: Yes Did patient pass dysphagia screen?: No Date of Dysphagia Screen: 04/18/23 Time of Dysphagia Screen: 1050 CC: R cerebellar IPH with VE 24 hour / interval Hx: - afebrile, HR in the 70's-80's, O2 sats stable on 2-3L NC, Systolic (24hrs), Av , Min:102 , Max:160 - CBC stable (MCV uptrending, ordered B12/folate), potassium 5.8, BUN / Cr 1.99, phos 5.7 - ordered repeat K+ level and EKG - on exam this AM, appears encephalopathic. Eyes are open spontaneously, PERRLA, not responding to questions or following any commands. Grimaces and withdraws from noxious stim in all 4 extremities HPI: Myla 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 He is s/p EVD placement on 04/17 and removal on 05/01. 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 He is surrounded by family including his . He is sleepy but arouses quickly to voice. He is joking with family at times but also drifts off to sleep. He appears slightly agitated when awakened but again closes his eyesand quickly falls back asleep. He is moving all extremities. Can not assess him for mental status as he is not responding to my questioning and due to current agitation when awakened, will defer mental status exam to a later time. 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 R frontal EVD placed by NSGY 04/17. HCT and CTA were performedwhich confirmed stability of the bleed and no vascular malformations suggesting that this was a primarily HTN bleed. A posterior medial LEFT parietal lobe infarct was noted on CTH and then verified via MRI. This was thought to be provoked by 3rd ventricle hydrocephalus compressing the VALUE STREAM COACH which resulted in the infarct. EVD removed 05/01. 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 A follow up CTA chest and abdomen further delineated a Hay type B dissection extending from the LEFT subclavian artery to the bilateral external iliac arteries. Tight BP < 120 mm Hg and HR control (< 60 bpm) was initiated pharmacologically and Vascular Surgery was consulted, relaxed to SBP < 140 on 05/09. In addition to pulse pressure control ASA was recommended once safe. There is no surgical intervention unless signs and symptoms of active bleeding are noted. ASA started post EVD removal. Repeat imaging per vascular surgery in 3 months (~ 07/26/23). Unfortunately, on 05/13, pt started to have episodes of profound bradycardia that did evolve at timesinto asystole (~12-14 seconds) with spontaneous resolution. Diltiazem and carvedilol were d/c'd perVascular Medicine. In conversation with at bedside, she has requested to speak with Palliative; family meeting now scheduled for 05/15 at 1:30pm. Pt is also now DNR/DNI. After share decision making meeting with family due to difficulty meeting blood pressure and heart rate goals, elected to repeat imagining which showed stable dissection . Due to this, liberalized blood pressure goals to less than 160mgHG in attempts to get patient off continuous IV infusions to allow his ICU delirium improve to better assess likely rehabilitation potential. # Acute hypoxic respiratory failure # Fluid overload Patient was tolerating minimal ventilatory settings and initially extubated on 04/18. Required diuresis post-extubation given volume status. Night of 04/18, Myla had a hypoxic event as well as c/f AMSand was re-intubated. Neurological exam was stable pre- and post-intubation. Given his likely bulbar dysfunction, highest suspicion was for a mucous plugging event which was also noted on CXR. He underwent a diagnostic/therapeutic bronch on 04/19 which showed thick copious secretions mainly in the DAVID and L lingula which was sent for cultures after a BAL was performed. Initial gram stain was negative. BAL with normal upper respiratory pascual. On 04/29, sputum culture was sent as part of fever workup with GPCs/GNRs, decision made given clinical scenario to continue zosyn x 7 days. Pt continued toimprove with decreased support required from vent, and was extubated on 05/04 to 3L NC. He has intermittently tolerated CPAP at night. # Dysphagia TREASURY CONSULTANT following for speech assessment. Pt tolerating Tfs via NGT and modified sips and chips diet when mental status appropriate. Modified Barium Swallow pending clinical stability. # OVI, likely d/t MADISON, resolved Intermittent Cr elevations # Hyperactive Agitated Delirium # Alcohol Abuse Pt completed phenobarbital taper early on in hospital course. Agitation currently well managed withseroquel, with dosing limitations per QTC. Home Medications: No current facility-administered medications on file prior to encounter. No current outpatient medications on file prior to encounter. Current Medications: Scheduled Meds: labetaloL 800 mg Per NG tube Q6H spironolactone (Aldactone) 100 mg in sterile water 10 mL custom oral liquid 100 mg Per NG tube Daily cloNIDine 0.2 mg Per NG tube Q8H sodium chloride 2 g Per NG tube TID QUEtiapine 100 mg Per NG tube Nightly insulin lispro 1-4 Units Subcutaneous Q4H [facility] tube feeding diet 230 mL Per NG tube 4 Times Daily simethicone 40 mg Per NG tube 4 Times Daily hydrALAZINE 200 mg Per NG tube Q6H terazosin 1 mg Per NG tube BID traMADoL 50 mg Per NG tube Q8H FLUoxetine 20 mg Per NG tube Daily aspirin 81 mg Per NG tube Daily lisinopriL 40 mg Per NG tube Daily ergocalciferoL (vitamin D2) 50,000 Units Per NG tube Weekly heparin (porcine) 5,000 Units Subcutaneous Q8H YUSUF camphor-methyl salicyl-menthoL Topical (Top) BID Past Medical & Surgical History: No past medical history on file. No past surgical history on file. Allergy: No Known Allergies Family History: No family history on file. Social History Socioeconomic History Marital status: Spouse name: Not on file Number of children: Not on file Years of education: Not on file Highest education level: Not on file Occupational History Not on file Tobacco Use Smoking status: Unknown Smokeless tobacco: Not on file Substance and Sexual Activity Alcohol use: Defer Drug use: Defer Sexual activity: Defer Other Topics Concern Not on file Social History Narrative to Kyra X 44 years. They have 3 children: all in their 20s. 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 He has a significant alcohol abuse history with daily drinking. Was never one to go to get medical care. Social Determinants of Health Financial Resource Strain: Not on file Food Insecurity: No Food Insecurity (04/20/2023) Hunger Vital Sign Worried About Running Out of Food in the Last Year: Never true Ran Out of Food in the Last Year: Never true Transportation Needs: No Transportation Needs (04/20/2023) PRAPARE - Transportation Lack of Transportation (Medical): No Lack of Transportation (Non-Medical): No Physical Activity: Not on file Intimate Partner Violence: Not on file Housing Stability: Unknown (04/20/2023) Housing Stability Vital Sign Unable to Pay for Housing in the Last Year: No Number of Places Lived in the Last Year: Not on file Unstable Housing in the Last Year: No Review of systems: Neuro: See HPI [x] Review of systems otherwise negative Physical Exam: GCS Scale Vitals: Temp: [36.5 ??C (97.7 ??F)-37.2 ??C (99 ??F)] Heart Rate: [54-78] Resp: [12-28] BP: (102-153)/(52-95) SpO2: [86 %-98 %] Heart Rate from SpO2: [53 bpm-78 bpm] Gen: Patient of apparent stated age, awake, alert, NAD Neuro Exam: MS: Appears obtunded, opens eyes briefly to loud voice but quickly drifts back to sleep. Not following any commands. CN: PERRL, VOR Intact no apparent facial asymmetry Hearing intact to voice Motor: withdraws from noxious stim in all 4 Sensation: AVI NIH Stroke Scale NIH Stroke Scale Date 04/18/23 NIH Stroke Scale Time 1050 Level of Consciousness 1 LOC Questions 2 LOC Commands 0 Best Gaze 1 Vision 0 Facial Palsy 0 Motor Arm, Left 0 Motor Arm, Right 0 Motor Leg, Left 0 Motor Leg, Right 0 Limb Ataxia (UT) Sensory (UT) Best Language 3 (intubated) Dysarthria 0 Extinction and Inattention: 0 (UT) NIH Total Score Your Prescription is Ready Labs: Last 3 wbc, hgb, hct plt Recent Labs 05/18/23 0037 05/16/23 0042 05/15/23 0035 WBC 7.0 7.6 7.6 HGB 9.3* 9.4* 9.4* HCT 28.9* 29.7* 29.2* PLATELET 209 223 206 Last 3 Lytes Recent Labs 05/19/23 0033 05/18/23 0037 05/17/23 0047 NA 142 137 135 K 4.5 4.1 4.2 CL 103 98 99 CO2 28 30 29 BUN 33* 29* 29* CREATININE 1.82* 1.61* 1.41 Last 3 LFTs Recent Labs 04/28/23 0120 04/23/23 0024 04/19/23 0035 AST 26 28 22 ALT 38 26 19 ALKPHOS 61 64 66 BILITOT 0.5 0.4 0.3 BILIDIR 0.3 0.2 0.1 Last Ca, Mg, Phos Recent Labs 05/19/23 003 CALCIUM 9.4 PHOS 4.6* MAGNESIUM 1.02 Last 3 TFT Recent Labs 04/19/23 003 TSH 0.74 Last 3 Lipids Recent Labs 05/07/23 0110 05/06/23 1050 05/06/23 0030 04/20/23 0110 04/19/23 0035 CHLPL -- -- -- -- 220 HDL -- -- -- -- 86 LDLDIRECT -- -- -- -- 129 TRIG 194 292 1,032 < > 78 < > = values in this interval not displayed. Last 3 HgbA1C Recent Labs 04/19/2334 HA1C 6.0* Last CRP, SEDRATENo results for input(s): CRP, SEDRATE in the last 7068 hours. Radiology: CT Head 05/01 No change in ventricular caliber, intraventricular hemorrhage or right cerebellar hemorrhage with moderate surrounding edema. MRI Brain wwo 04/19 Recent infarct involving the posterior medial LEFT parietal lobe. Unchanged size of RIGHT cerebellar intraparenchymal hemorrhage with unchanged volume of intraventricular blood products. Vasogenic edema tracks along the superior right cerebellar peduncle into the right midbrain. Unchanged ventricular caliber with some hyperintense signal along the ventricular surface suggesting some transependymal CSF flow. No abnormal brain parenchymal or meningeal enhancement to suggest underlying malignancy. Small foci of susceptibility related signal loss separate from the areas of hemorrhage, which couldrepresent sequela of small vessel disease versus cerebral amyloid angiopathy. CTA COW 04/17 No evidence of aneurysm or vascular malformation. Bilateral Renal Artery Duplex 04/27 Comment: Limited exam due to time of day (study started at 1600), overlying bowel gas, patient positioning and patient body habitus. Right: Unable to study kidney, renal artery, and renal vein due to limitations listed above. Unableto determine patency. Left: Patent distal main renal artery with no evidence of hemodynamically significant stenosis. Patent main renal vein. Due to limitations listed above unable to study origin and proximal to mid renal artery; cannot exclude higher velocities/ stenosis here. EKG 04/26: TTE 04/18: There is severe concentric left ventricular hypertrophy. Left ventricular systolic function is normal. The left ventricular ejection fraction is 70% by Hester's biplane. There are no segmental wall motion abnormalities. The right ventricle is probably normal in size. Right ventricular function is probably normal. No significant valve disease. The aortic root is dilated. The diameter at the level of the sinuses of Valsalva is 4.2 cm. The ascending aorta is dilated. The maximum diameter of the proximal ascending aorta is 4.5 cm. No comparison study is available. Assessment and Plan: Myla 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 He is s/p EVD placement on 04/17 and removal on 05/01. 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 Pt has required copious anti-hypertensive agents in order to achieve adequate BP control; unfortunately this has been complicated by profound bradycardiaand, at times, episodes of brief asystole (05/13-05/14). Per family request, Palliative has been consulted and plan for family meeting on 05/15. Pt is now DNR/DNI. He was downgraded to step down level to the vascular neurology service on 05/18 for further management of IVH as well as aortic dissection and other medical conditions as below. On presentation today,the patient appears obtunded and is unable to follow any commands. While patient was minimally participatory in exam previously, he was able to direct his attention to the examiner and would verbalize occasionally follow some commands. He was sent for a stat CT head which showed evolution of the recent right anterior cerebellar hemorrhage with no evidence of new bleeding and overall appeared stable. He was noted to have hyperkalemia on labs this morning as well as a worsening OVI. Initially treated with 500 cc fluid bolus and put on maintenance IV fluids in hopes to correct OVI. A VBG was also obtained which showed a pH of 7.2, pCO2 of 60, pO2 of 39, and bicarb of 23 concerning for respiratory acidosis. Also of note, his blood pressures this morning were relatively softer compared to priors and on review of hospital course it appears that patient has had some decompensations with lower blood pressures in the past. As such, discontinued his labetalol and reduced the scheduled hydralazine. His afternoon clonidine was also held. A BMP was repeated this afternoon which showed some improvement of the hyperkalemia, however continued to show worsening of the OVI with a creatinine of 2.55. Repeat VBG continue to show pH of 7.2 and pCO2 of 55. Hospital medicine was engaged for further recommendations on management of his OVI and respiratory acidosis. Hospital medicine feels that his OVI is likely secondary to ATN in the setting of recent asystole events and recent contrast exposure, and that his low urine output this morning is likely in the setting of oliguric phase of ATN. They re commended discontinuing lisinopril, discontinuing free water bolus and further IV hydration given evidence of pulmonary edema on the chest x-ray to avoid fluid overload in the setting of oliguria, giving 120 mg IV Lasix to encourage urine output, addition of Phos binder, and monitoring potassium trend with every 6 hours BMPs. Addition of potassium binder (ie Lokelma) if return of hyperkalemia on recheck. They also recommended a trial of BiPAP and obtain repeat blood gas to monitor pCO2 response. Given his obtundation, a sitter was ordered so that patient could be placed on BiPAP. Goals of care were further discussed with the patient's this evening, and she confirms that she would not want intubation or dialysis, and further states that she would not want him to return to the ICU under any circumstances. Will place no escalation of care order, and continue to manage with conservative measures as able in stepdown. Further, his tube feeds are being held and NG tube set to suction for decompression as necessary for BiPAP. Nutrition consult has been placed for updated TF recommendations given renal injury / hyperkalemia. Rest as below. 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 # concern for mediastinal hematoma # HFpEF - maintain SBP < 160mmHg, HR < 80bpm - current anti-hypertensive regimen: - --> d/c'd 2/2 asystole (05/13) - --> d/c'd 2/2 asystole (05/14) - -->discontinued 05/19 (OVI) - terazosin 1mg BID - hydralazine 200mg q6h-->reduced to 100 mg q6h on 05/19 (relative hypotension) - -->discontinued on 05/19 (relative hypotension) - aldactone 100mg daily (05/15) - decrease clonidine to 0.2mg q8h (05/14) --> held afternoon dose on 05/19 - severe bradycardia, prolonged pauses (starting 05/13); likely medication-induced - prefer anticholinergics over pacing - events seemed to have improved throughout today with holding diltiazem and carvedilol - ASA 81mg daily resumed on 05/02 #Respiratory failure #Respiratory acidosis 05/19 - extubated 04/18, re-intubated 04/19 d/t agitation/hypoxia, extubated 04/21 , re- intubated 04/26 d/t mental status, now extubated and doing well (05/04) - does not want pt re-intubated under any circumstances or care escalated to ICU - trial of BiPAP in the step-down unit for now for management of respiratory acidosis - underwent bronch 04/19 with suctioning of mucous plugs L>R - goal O2 sats > 92% - CPAP QHS as tolerated (tolerating 4h QHS) - airway clearance, 3% neb Q4H, Duonebs PRN as per RT # urinary retention # total body fluid overload # hyponatremia, likely diuresis-induced # Concern for ATN iso recent asystole and contrast - salt tab 3g TID --> decreased to 2g TID - use saline flushes with enteral meds instead of water flushes - Vit D2 50,000 units weekly on Sundays - s/p 500 cc fluid bolus and mIVF, as well as FWB (200 cc TID was ordered) on 05/19; however discontinued fluids per medicine recs given concern for ATN with oliguria and fluid overload # right brachial DVT - daily CBC - DVT ppx: SCDs, SQH # right wrist pressure injury - followed by Wound Care # Prophylaxis heparin 5000units SC Q8H # Supportive care -full liquid diet (NPO if obtunded) -Tylenol PRN # DNR/DNI # NO ESCALATION OF CARE TO ICU Bharathi Ashford DO Neurology Resident, PGY-3 Vascular Neurology Pager [phone] Standard [facility] Swallow Screen: This screen is to be used to document a Swallow Screen prior to ingestion of water and /or oral medications for patients with possible stroke (Ischemic or Hemorrhagic). Exclusion Criteria: A swallow screen is not to be performed on patients who: have a decreased level of consciousness. are not able to follow simple commands. are hypoxic, or have increasing O2 needs or may need to be intubated. have a G/J tube for nutrition. have a recent history of a swallowing disorder *These patients should remain NPO (HOLD MEDS) and the physician notified for further orders. Swallow Screen Using Water: None of the Exclusion Criteria as mentioned above is present? Patient is alert and sitting upright? Able to close lips and tongue is midline? Able to cough, manage oral secretions with dry voice? ONLY IF ABOVE ALL YES, Able to swallow 30 ml of water without coughing, displaying a wet voice or choking? Repeat Twice. If YES to all responses, proceed with water and oral medications as well as diet as medical provider deems appropriate. Consider TREASURY CONSULTANT consult for full evaluation and diet recommendations. If NO to any of the responses, stop immediately, keep patient NPO and notify physician. Associated attestation - Crystal Mckenna MD - 05/20/2023 6:13 PM EDT Neurology Staff Note I have reviewed the resident's history during the visit and I agree with the details as written. Myphysical examination confirms the resident's findings. The assessment and plan were formulated in discussion with me at the time of the visit and I agree with them as documented. CT head today showed no concerning findings. Reviewed findings and plans with his . Hyperkalemia has improved. I believe he was somewhat volume depleted but Medicine was consulted and is helping with complex medical management including ATNand hypoxemia. * Azul Pizano RN - 05/20/2023 7:24 AM EDT Patient drowsy, lethargic most of shift, slept thru. Wakes up to voice and then drifts back to sleep immediately. Low grade temp overnight. Treated with tylenol. Multiple medication ordered and givento maintain SBP < 160 and HR <80. Team was paged once for HR of 88 that sustained for about an hour more or less. PRN medication ordered was discontinued because HR normalized before med could b e given. All other vital signs remain within limits. * Crystal Mckenna MD - 05/19/2023 2:28 PM EDT Neurology Staff Note I have reviewed the resident's history during the visit and I agree with the details as written. Myphysical examination confirms the resident's findings. The assessment and plan were formulated in discussion with me at the time of the visit and I agree with them as documented. I saw him today and spoke to his in the room and reviewed with the NCC team. He is eating someand has a DHT in place. Will need inpt rehab, I see that his has spoken with CM today. * Tiarra Vasquez SLP - 05/19/2023 1:19 PM EDT Speech Pathology Contact Note Upgraded patient to a full liquid diet to trial a full meal at lunchtime. However, upon arrival he was asleep and did not rouse to voice or gentle tactile stimulation. Per RN, he did not sleep well last night and recently experienced O2 desaturation requiring 3L O2 via NC. We will defer our session. Over the weekend: Please maintain diet order but hold PO unless patient is awake, alert, and able to safely participate in the meal. Monitor closely for signs of aspiration (coughing, O2 desaturation, increased RR, wet vocal quality) and maintain a low threshold for return to NPO status. Page the weekend TREASURY CONSULTANT with concerns. We will continue to follow. Tiarra Vasquez MS, CCC-TREASURY CONSULTANT Speech-Language Pathologist Inpatient Rehabilitation Pager # [phone] * Mando Duncan PA - 05/19/2023 12:26 PM EDT Images from the original note were not included. NEUROCRITICAL CARE TRANSFER NOTE 05/19/2023 1:12 PM Date of Admission: 04/18/2023 6:34 AM LOS: 31 ICU LOS: 31d 5h HPI: Myla Acosta is a 67 year old male with unknown pmhx (per chart review, does not appear to have a PCP or follow up within the [facility] system, not on AC/AP) who presented from OSH for evaluation of stroke symptoms, found to have a right cerebellar IPH with ANIL. 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 R frontal EVD placed by NSGY 04/17. HCT and CTA were performedwhich confirmed stability of the bleed and no vascular malformations suggesting that this was a primarily HTN bleed. A posterior medial LEFT parietal lobe infarct was noted on CTH and then verified via MRI. This was thought to be provoked by 3rd ventricle hydrocephalus compressing the VALUE STREAM COACH which resulted in the infarct. EVD removed 05/01. TREASURY CONSULTANT following for post-stroke dysphagia. Pt tolerated TFs via NGT and modified sips and chips diet when mental status appropriate. Modified Barium Swallow recommended, pending clinical ability to participate. Palliative care was engaged for goals of care discussion and complex decision making in setting of ongoing ICU needs with intractable HTN requiring multiple oral and IV medications. They felt Myla would continue to go through this hospitalization if there was hope that he could eventually get home. They feel he would not wish CPR or mechanical ventilation. Tete and family feel that a fdc feeding tube, such as a PEG, would not be something Myla would want. He would accept a time limited trial for now and they wish to await the outcome of the MBS test. # Hyperactive Agitated Delirium # Alcohol Abuse Pt completed phenobarbital taper early on in hospital course. He demonstrated altered mental statusand disorientation through-out his hospital course requiring medication and soft limb restraints. Agitation currently well managed with seroquel 100mg QPM, with dosing limitations per QTC. # Hay type B dissection extending from the L SCV into the BL external iliac arteries, wo bleeding, incidental finding, likely chronic in nature # HTN As part of the posterior medial LEFT parietal lobe infarct work up a CTA Head and neck was obtainedwhich had an incidental finding which was concerning for descending thoracic aortic dissection. A follow up CTA chest and abdomen further delineated a Hay type B dissection extending from the LEFT subclavian artery to the bilateral external iliac arteries. Tight BP < 120 mm Hg and HR control (< 60 bpm) was initiated pharmacologically and Vascular Surgery was consulted. He was not a candidate for surgical intervention. BP control was extremely difficult to maintain to target requiringmultiple agents. He remained clinically stable and SBP target was relaxed to SBP < 140 on 05/09 but continued to require multiple agents to control. ASA started post EVD removal. Unfortunately, on 05/13, pt started to have episodes of profound bradycardia that did evolve at timesinto asystole (~12-14 seconds) with spontaneous resolution. There did not appear to be any block aside from first degree heart block. There are no signs of ischemia with a low/flat troponin and nonischemic EKG. He did have ventricular ectopy including NSVT in the setting of Mg of 0.6. Mg now normalized with improvement of ectopy. Diltiazem and carvedilol were d/c'd per Cardiology Vascular Medicine and episodes did not recur. After shared decision making meeting with family due to difficulty meeting blood pressure and heartrate goals, elected to repeat imagining which showed stable dissection. Due to this, liberalized blood pressure goals to less than 160mgHG in attempts to get patient off continuous IV infusions to allow his ICU delirium improve to better assess likely rehabilitation potential. He was able to be weaned off nitroglycerin gtt on 05/16 and clevidipine gtt on 05/17. Blood pressure remain at target on scheduled meds (See plan below) without the need for prn antihypertensives (prn vasotec, hydralazine available). Per vascular surgery, follow-up plan for aortic dissection is repeat imaging in 3 months (~ 07/26/23). #acute urinary retention Failed multiple voiding trials, most recently 05/17. He required SC x3 with >500mL drained each time # Acute hypoxic respiratory failure # Fluid overload Patient was tolerating minimal ventilatory settings and initially extubated on 04/18. Required diuresis post-extubation given volume status. Night of 04/18, Myla had a hypoxic event as well as c/f AMSand was re-intubated. Neurological exam was stable pre- and post-intubation. Given his likely bulbar dysfunction, highest suspicion was for a mucous plugging event which was also noted on CXR. He underwent a diagnostic/therapeutic bronch on 04/19 which showed thick copious secretions mainly in the DAVID and L lingula which was sent for cultures after a BAL was performed. Initial gram stain was negative. BAL with normal upper respiratory pascual. On 04/29, sputum culture was sent as part of fever workup with GPCs/GNRs, decision made given clinical scenario to continue zosyn x 7 days. Pt continued toimprove with decreased support required from vent, and was extubated on 05/04 to 3L NC. He has intermittently tolerated CPAP at night. # OVI, likely d/t MADISON, resolved Intermittent Cr elevations, presumed due to perfusion fluctuations I/s/o blood pressure control. Active Medications: labetaloL 800 mg Per NG tube Q6H spironolactone (Aldactone) 100 mg in sterile water 10 mL custom oral liquid 100 mg Per NG tube Daily cloNIDine 0.2 mg Per NG tube Q8H sodium chloride 2 g Per NG tube TID QUEtiapine 100 mg Per NG tube Nightly insulin lispro 1-4 Units Subcutaneous Q4H YUSUF tube feeding diet 230 mL Per NG tube 4 Times Daily simethicone 40 mg Per NG tube 4 Times Daily hydrALAZINE 200 mg Per NG tube Q6H terazosin 1 mg Per NG tube BID traMADoL 50 mg Per NG tube Q8H FLUoxetine 20 mg Per NG tube Daily aspirin 81 mg Per NG tube Daily lisinopriL 40 mg Per NG tube Daily ergocalciferoL (vitamin D2) 50,000 Units Per NG tube Weekly heparin (porcine) 5,000 Units Subcutaneous Q8H [facility] camphor-methyl salicyl-menthoL Topical (Top) BID ondansetron, QUEtiapine, carboxymethylcellulose, hydrALAZINE, glucose 40% oral geL OR dextrose OR glucagon, senna-docusate, ipratropium-albuteroL, sodium chloride, oxyCODONE, [id number] DR AND sodium bicarbonate, polyethylene glycoL (MIRALAX) oral powder AND bisacodyL AND bisacodyl EC AND lactulose AND lactulose AND magnesium citrate AND Tap water enema, acetaminophen, potassium chloride ER OR potassium chloride ER, enalaprilat Vital Sign Ranges: Last value Range last 24 hrs Temperature Temp: 37 ??C (98.6 ??F) Temp: [36.3 ??C (97.3 ??F)-37.2 ??C (99 ??F)] Heart Rate Heart Rate: 64 Heart Rate: [54-78] Blood Pressure BP: 120/60 BP: (114-153)/(57-95) Respiratory Rate Resp: 22 Resp: [12-31] SpO2 SpO2: 94 % SpO2: [91 %-98 %] Art BP BP (Arterial Line): 107/51 BP (Arterial Line): -- Intake/Output: I/O 05/15 0705/16 07 P.O. 0 0 75 0 I.V. (mL/kg/hr) 1840.3 (0.7) 1266.4 (0.5) 30 (0) Blood 0 0 0 Other 0 0 0 NG/GT 7279 943 4322 350 IV Piggyback Irrigation 130 260 510 60 Total Intake(mL/kg) 3100.3 (27.1) 2506.4 (22.2) 2144 (18.9) 410 (3.6) Urine (mL/kg/hr) 1855 (0.7) 3270 (1.2) 1300 (0.5) 685 (1.1) Emesis/NG output 0 0 0 Other 0 0 Stool 0 0 0 0 Blood 0 0 Urine/Stool Mixed 0 0 Total Output(mL/kg) 1855 (16.2) 3270 (28.9) 1300 (11.5) 685 (6) Net +1245.3 -763.6 +844 -275 Unmeasured Urine Occurrence 0 x Stool Occurrence 2 x 1 x 2 x 2 x Emesis Occurrence 0 x 0 x 0 x Last BM: Stool Occurrence Min: 0 Max: 2 Last Bowel Movement: 05/19/23 Current Diet: Full Liquid Labs: Recent Results (from the past 24 hour(s)) POCT Glucose Result Value Ref Range POC Glucose 161 65 - 199 mg/dL POCT Glucose Result Value Ref Range POC Glucose 116 65 - 199 mg/dL POCT Glucose Result Value Ref Range POC Glucose 109 65 - 199 mg/dL Basic Metabolic Panel (non-fasting) Result Value Ref Range Glucose Lvl 105 65 - 199 mg/dL BUN 33 (H) 10 - 20 mg/dL Creatinine 1.82 (H) 0.80 - 1.50 mg/dL Sodium 142 135 - 145 mmol/L Potassium 4.5 3.5 - 5.0 mmol/L Chloride 103 98 - 107 mmol/L CO2 28 22 - 31 mmol/L Anion Gap 11 5 - 15 mmol/L Calcium 9.4 8.5 - 10.5 mg/dL Estimated GFR 41 (L) >=60 mL/min/1.73 m?? Magnesium Result Value Ref Range Magnesium 1.02 0.69 - 1.07 mmol/L Phosphorus Result Value Ref Range Phosphorus 4.6 (H) 2.5 - 4.5 mg/dL POCT Glucose Result Value Ref Range POC Glucose 109 65 - 199 mg/dL POCT Glucose Result Value Ref Range POC Glucose 110 65 - 199 mg/dL POCT Glucose Result Value Ref Range POC Glucose 112 65 - 199 mg/dL Imaging: CT Head 05/01 No change in ventricular caliber, intraventricular hemorrhage or right cerebellar hemorrhage with moderate surrounding edema. MRI Brain wwo 04/19 Recent infarct involving the posterior medial LEFT parietal lobe. Unchanged size of RIGHT cerebellar intraparenchymal hemorrhage with unchanged volume of intraventricular blood products. Vasogenic edema tracks along the superior right cerebellar peduncle into the right midbrain. Unchanged ventricular caliber with some hyperintense signal along the ventricular surface suggesting some transependymal CSF flow. No abnormal brain parenchymal or meningeal enhancement to suggest underlying malignancy. Small foci of susceptibility related signal loss separate from the areas of hemorrhage, which couldrepresent sequela of small vessel disease versus cerebral amyloid angiopathy. CTA COW 04/17 No evidence of aneurysm or vascular malformation. Bilateral Renal Artery Duplex 04/27 Comment: Limited exam due to time of day (study started at 1600), overlying bowel gas, patient positioning and patient body habitus. Right: Unable to study kidney, renal artery, and renal vein due to limitations listed above. Unableto determine patency. Left: Patent distal main renal artery with no evidence of hemodynamically significant stenosis. Patent main renal vein. Due to limitations listed above unable to study origin and proximal to mid renal artery; cannot exclude higher velocities/ stenosis here. EKG 04/26: TTE 04/18: There is severe concentric left ventricular hypertrophy. Left ventricular systolic function is normal. The left ventricular ejection fraction is 70% by Hester's biplane. There are no segmental wall motion abnormalities. The right ventricle is probably normal in size. Right ventricular function is probably normal. No significant valve disease. The aortic root is dilated. The diameter at the level of the sinuses of Valsalva is 4.2 cm. The ascending aorta is dilated. The maximum diameter of the proximal ascending aorta is 4.5 cm. No comparison study is available. Physical Exam: GCS 14, alert to self only, hypophonic, speech clear, follows simple commands Opens eyes spontaneously, tracks, PERRL 4mm brisk, EOMI, tongue midline, refuses to smile, sensation intact to light touch on the face, hearing intact to voice BUE 4/5, BLE 4/5 Sensation intact to light touch throughout LS coarse, minimal secretions RRR, S1, S2 Abd distended, soft, no rigidity, hypoactive BS ASSESSMENT & PLAN: Myla Acosta is a 67 year old male with unknown pmhx (no PCP or listed medications) who presents as a transfer from an OSH for evaluation of a right cerebellar IPH s/p EVD placement, removed 05/01. 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 > concern for mediastinal hematoma > HFpEF - maintain SBP < 140mmHg, HR < 80bpm for impulse control per Vascular Surgery - per Vascular Neurology: safe to anticoagulate once repeat CTH, as long as tight BP control, SBP < 140 (for possible dissection repair) - current anti-hypertensive regimen: - --> d/c'd 2/2 asystole (05/13) - --> d/c'd 2/2 asystole (05/14) - lisinopril 40mg daily - terazosin 1mg BID - hydralazine 200mg q6h - Labetolol 800mg q 6 hr (increased 05/17) - aldactone 100mg daily (05/15) - decreased clonidine to 0.2mg q8h (05/14) severe bradycardia, prolonged pauses (starting 05/13); likely medication-induced per Vascular Medicine - prefer anticholinergics over pacing per Vascular Medicine - events seemed to have improved throughout today with holding diltiazem and carvedilol - out of abundance of caution --> d/c'd lidocaine patches - ASA 81mg daily resumed on 05/02 # Pulm - > extubated 04/18, re-intubated 04/19 d/t agitation/hypoxia, extubated 04/21 , re- intubated 04/26 d/t mental status, now extubated and doing well (05/04) > underwent bronch 04/19 with suctioning of mucous plugs L>R - goal O2 sats > 92% - CPAP QHS as tolerated (tolerating 4h QHS) - airway clearance, 3% neb Q4H, Duonebs PRN as per RT # GI - - Full Liquid, bolus TFs 230mL QID - NGT - MBS pending when able to participate - maintain bowel reg, Last Bowel Movement: 05/19/23 # FEN/ - > urinary retention > total body fluid overload > Vit D deficiency > hyponatremia, likely diuresis-induced - daily Mg, PO4 - Q12H BMP - failed multiple voiding trials, 05/17 SC x3, replace rebolledo 05/18 - Nephrology previously consulted, signed off on 05/04 - salt tab 3g TID --> decreased to 2g TID -> wean further per labs - use saline flushes with enteral meds instead of water flushes - Vit D2 50,000 units weekly on Sundays - ICU lyte replacement protocol -Lasix prn for euvolemia # Heme - > right brachial DVT - daily CBC - DVT ppx: SCDs, SQH # Endo - - goal glucose > 180 # Integumentary - > right wrist pressure injury - followed by Wound Care # ID - > presumed VAP now s/p Zosyn x 7 days (04/29-05/06) - noble-culture for temp > 38.3C - Tylenol PRN Code Status: Do NOT Attempt CPR - Inpatient Pending guardianship with (05/07) --> Dispo: [facility] [place] 05/19/2023 [facility] pager [phone] * Erika Lawrence - 05/19/2023 8:31 AM EDT Nutrition Progress Note Myla Aocsta is a 67 y.o. male with unknown pmhx (no PCP or listed medications) who presents asa transfer from an OSH for evaluation of a right cerebellar IPH. Now s/p R EVD placement 04/17 givenhydrocephalus. Reason for Assessment: ICU Tube Feeding, Follow-up Nutrition Recommendations: Full liquid Recommend continuing TF until at least 50% of needs met through PO intake Continue Nutren 2.0 with a goal of 230 mL x 4 daily Monitor hydration status on above TFs as they are concentrated. Pt may need additional fluids depending on IVFs, med flushes, p.o. Intake, etc. Mg and phos with daily labs Monitor BM - goal of 1 [id number] while on TF Monitor BG - goal of 140-180 Daily weights Current Nutrition Regimen: Active Orders Diet Full Liquid Frequency: Effective Now Number of Occurrences: Until Specified All Active TF Orders: Nutren 2.0 with a goal of 230 mL x 4 daily At goal, this will provide 920 mL formula, 1840 calories, 77 grams protein, 637 mL water from formula, and 100% of the RDI's for vitamin and minerals. Average tube feeding provision over the past 2 days; 4 bolus vs daily goal volume of 4 bolus (100% of goal) Tolerance or barriers to meeting needs: none Assessment: Lab Results Component Value Date NA 142 05/19/2023 K 4.5 05/19/2023 CL 103 05/19/2023 CO2 28 05/19/2023 BUN 33 (H) 05/19/2023 CREATININE 1.82 (H) 05/19/2023 ESTGFR 41 (L) 05/19/2023 MAGNESIUM 1.02 05/19/2023 CALCIUM 9.4 05/19/2023 PHOS 4.6 (H) 05/19/2023 AST 26 04/28/2023 ALT 38 04/28/2023 ALKPHOS 61 04/28/2023 BILITOT 0.5 04/28/2023 BILIDIR 0.3 04/28/2023 TRIG 194 05/07/2023 HA1C 6.0 (H) 04/19/2023 25OHVITD 13 (L) 04/29/2023 IRON 25 (L) 04/29/2023 Lab Results Component Value Date POCGLU 112 05/19/2023 POCGLU 110 05/19/2023 POCGLU 109 05/19/2023 POCGLU 109 05/19/2023 POCGLU 116 05/18/2023 POCGLU 161 05/18/2023 Patient Lines/Drains/Airways Status Active Nutritional LDAs Name Placement date Placement time Site Days Naso/Oral Tube 05/17/232242 nasogastric right nostril 04/10/24 2243 right nostril 2 PICC Line 04/20/23 1410 Triple Lumen 5 Fr brachial vein, right 04/20/23 1410 -- 29 Urethral Catheter 05/19/23 1025 10 10 05/19/23 1025 -- less than 1 Pressure Injury 05/02/23 other (see comments) Stage 1 05/02/23 -- -- 17 Pressure Injury 05/09/23 other (see comments) suspected deep tissue injury 05/09/23 -- -- 10 Oxygen Therapy / Airway Device: Nasal cannula Shift Pressure Injury Prevention Occiput: No Injury Thoracic Spine: No Injury Sacral: No Injury Ischial - left: No Injury Ischial - right: No Injury Heel - left: No Injury Heel - right: No Injury Elbow - left: No Injury Elbow - right: No Injury Device Sites: NGT, BP Cuff, ECG Leads, IV sites, SCD's / venodynes, rebolledo, O2 sat monitor, wrist restraints Other Sites: ID band Last Bowel Movement: 05/19/23 Intake/Output Summary (Last 24 hours) at 05/19/2023 1244 Last data filed at 05/19/2023 1200 Gross per 24 hour Intake 1865 ml Output 1760 ml Net 105 ml Continuous Scheduled labetaloL 800 mg Per NG tube Q6H spironolactone (Aldactone) 100 mg in sterile water 10 mL custom oral liquid 100 mg Per NG tube Daily cloNIDine 0.2 mg Per NG tube Q8H sodium chloride 2 g Per NG tube TID QUEtiapine 100 mg Per NG tube Nightly insulin lispro 1-4 Units Subcutaneous Q4H [facility] tube feeding diet 230 mL Per NG tube 4 Times Daily simethicone 40 mg Per NG tube 4 Times Daily hydrALAZINE 200 mg Per NG tube Q6H terazosin 1 mg Per NG tube BID traMADoL 50 mg Per NG tube Q8H FLUoxetine 20 mg Per NG tube Daily aspirin 81 mg Per NG tube Daily lisinopriL 40 mg Per NG tube Daily ergocalciferoL (vitamin D2) 50,000 Units Per NG tube Weekly heparin (porcine) 5,000 Units Subcutaneous Q8H [facility] camphor-methyl salicyl-menthoL Topical (Top) BID PRN ondansetron, QUEtiapine, carboxymethylcellulose, hydrALAZINE, glucose 40% oral geL OR dextrose OR glucagon, senna-docusate, ipratropium-albuteroL, sodium chloride, oxyCODONE, [id number]-[id number] DR AND sodium bicarbonate, polyethylene glycoL (MIRALAX) oral powder AND bisacodyL AND bisacodyl EC AND lactulose AND lactulose AND magnesium citrate AND Tap water enema, acetaminophen, potassium chloride ER OR potassium chloride ER, enalaprilat Anthropometrics: Admit Weight: 111.8 kg Estimated body mass index is 37.49 kg/m?? as calculated from the following: Height as of this encounter: 174 cm (5' 8.5). Weight as of this encounter: 113.5 kg (250 lb 3.6 oz). [place] Body Weight (IBW) (kg): 71.37 Wt Readings from Last 10 Encounters: 05/19/23 113.5 kg (250 lb 3.6 oz) Patient Vitals for the past 168 hrs: Weight 05/19/23 0400 113.5 kg (250 lb 3.6 oz) 05/18/23 0600 113 kg (249 lb 1.9 oz) 05/17/23 0600 114.5 kg (252 lb 6.8 oz) 05/16/23 0000 114.2 kg (251 lb 12.3 oz) 05/15/23 0600 116 kg (255 lb 11.7 oz) 05/14/23 0600 116 kg (255 lb 11.7 oz) Weight Source: Bed Estimated / Assessed Needs: Fluid Requirements: Estimated Fluid Requirement Method: Weight Based Method Weight Based Method: 30 Weight Based Calculation: 2142 mL Metabolic cart study: 1820 kcals Kcal / K - 1785 Kcal (20 Kcal/Kg - 25 Kcal/Kg) Estimated Protein Needs: 86 g - 107 g (1.2 g/Kg - 1.5 g/Kg) Nutrition intake and intake history / interview: 05/18: TF continues at goal. Wt slowly trending down per documentation, receiving lasix prn. Will continue to monitor volume status and adjust TF accordingly. LBM 05/18. 05/14: TF at goal. Sips and chips (give meds) per TREASURY CONSULTANT recs, possible MBS today. Pt tolerating feeds per nsg, no s/s of discomfort. Per palliative note (05/14), does not feel pt would want prolonged feeding tube, possibly considering a comfort-focused approach. LBM 05/15. 05/11: TF at goal. Na wnl today. Continues NPO per TREASURY CONSULTANT recs, has been on TF since 04/18 and has [place] sump in place. 05/09: TF now at goal. Hyponatremic today and volume status trending down. Team requesting to switch to more concentrated TF formula. 05/07: TF switched to trickle today. Per team, c/f aspiration with pt sliding down in bed - requesting to trial intermittent TF. Will increase kcal from TF now that propofol d/c. 05/04: Propofol off. TF at goal. Hyponatremic. Extubated again today. 05/02: Propofol rate decreasing, will increase kcal from TF. 04/30: TF on APR hold. Propofol went up quite a bit. 04/27: Extubated and re-intubated. TF presently off. On small amt of propofol and javon. Multiple BM yesterday. Lasix drip. GFR <60. Met cart study 1820 kcals. 04/25: TF was off/on hold this morning due to TF formula not being available per flowsheet - checkedunit storage - plenty of Pep AF in top drawer. Pt back from CT scan and TF reportedly restarted. NoBM since 04/21. Phos and Na slightly low. 04/23: Consulted again for TF. Prior goal remains appropriate for now - advance to goal. Off propofol. Has small bore feeding tube. Needs to move bowels. NPO per TREASURY CONSULTANT. 04/19: Re-intubated. TF at 25 mL/hr today. On low dose propofol. No BM this admission. 04/17: Consulted for TF recommendations. May extubate tomorrow. On some propofol. On alcohol withdrawal protocol - thiamine, folic acid and Thera M ordered. Nutrition Focused Physical Exam: Not performed Reason NFPE Not Performed: Not indicated. Malnutrition Diagnosis: Not identified (BETHANY Hagen J Parenteral Enteral Nutr. 2011; 36(3): 273-83) Nutrition to continue to follow up while inpatient Thank you, Erika Lawrence Gas Welding Machine Operator * Tiarra Vasquez, ASMITA - 05/18/2023 3:55 PM EDT Speech Therapy Note Patient Profile: Myla 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 He was intubated at OSH for airway protection given worsening somnolence and transferred to [facility] on 04/18/2023. Hospital course has been complicated by hypoxic respiratory failure requiring multiple intubations (04/17-04/18, 04/18-04/21, 04/26-05/04; 12 days total). TREASURY CONSULTANT has been following since 04/23 for cognition and dysphagia management. Interval History: Agitated overnight, removed NGT Recent Imaging: No new imaging on file. Subjective: Patient was in fair spirits with his brother and at the bedside. He reported having double vision, remarking, How many of you are there? Objective: Patient seen for dysphagia management and demonstrated the following: Pain: No acute signs of discomfort Respiratory Status: Room air, satting 90-93% Current Diet: Sips and Chips (Give Meds) Feeding / Oral Care Status: Patient requires cues and/or assistance due to a combination of post-stroke motor limitations (?ataxia), suspected visual impairment, and altered mental status. Today, he self-administered 100% of trials given multimodal cues. He struggled to find my hand to take the spoon from me and benefited from tactile cues (touching his hand with mine) to accept objects. Cognitive-Linguistic Status: Awake and alert Reduced attention span In fair spirits, joking with his brother and Responds to simple questions appropriately Follows simple commands with repetition Reports visual impairments (?double vision), identified correct number of fingers in 2/3 trials Positioning: Pt up to chair Oral Motor Examination: No significant changes Bolus Presentations: Water via straw Puree Soft solids Oral Preparatory Phase Mastication: Sluggish and disorganized Oral transit: Sluggish and disorganized (solids>other) Oral containment: Complete, no anterior loss Oral stasis: None Pharyngeal Phase Swallow initiation: Sluggish Vocal quality change: None Cough / throat clear: Coughing episode x1 with water, x1 delayed with puree Pt complaint of food getting stuck: None Fatigue across trials: None Respiratory rate and respiratory swallow pattern: Unlabored and coordinated Esophageal Observations No overt signs of esophageal dysphagia noted. Education: Discussed patient status and recommendations, including frequent practice with ice chipsand small amounts of water while awake alongside trials of more advanced consistencies during TREASURY CONSULTANT sessions. Explained that patient's frequent fluctuations in behavior and alertness continue to pose abarrier to scheduling and completing a modified barium swallow, and agreed to continue frequent clinical reassessment while awaiting an appropriate window. Patient's asking about timeline for NGT removal; advised her that we would need to see more consistent wakefulness and engagement along with improvements in swallow function prior to discontinuing enteral nutrition. Patient status and swallow recommendations were discussed with nursing and the primary team. Assessment: Myla was seen today for dysphagia management. He was awake, alert, and in fair spiritsthough he continues to present with altered mental status vs. delirium characterized by inattention, disorientation, memory impairment, and executive dysfunction. Myla completed PO trials of thin liquid, puree, and soft solids. His oral phase remains sluggish and disorganized, primarily with solids. He presented with inconsistent signs of aspiration with a large sip of water and one spoonful of puree. His respiratory status remained largely stable throughout the session (slight desaturation from 93 to 90%). Myla continues to require physical assistance and/or cues for self-feeding due to a combination of suspected visual and motor impairment. Suspect dysphagia is multifactorial in the setting of post-stroke motor impairment, generalized deconditioning, and delirium, and will likely continue to evolve with progression of neurological symptoms. Myla's fluctuating mentation and agitation have made it challenging to find an appropriate window to complete a modified barium swallow. We will continue attempts to schedule a study but will also plan for frequent clinical reassessment. If Myla can tolerate PO trials of more advanced consistencies at the bedside without overt signs of aspiration, we will consider starting a diet without the MBS. However, I remain concerned about his ability to take in enough nutrition by mouth to meet his needs given his fluctuating mental status. For now, continue sips and chips for practice when patient is alert and accepting. Please provide frequent oral care (at least 2x/daily) to reduce risk of developing aspiration pneumonia. We will continue to follow. Diagnosis: Oral and suspected pharyngeal dysphagia 2/2 post-stroke weakness, generalized deconditioning, and altered mental status Recommendations: Diet: Sips and chips PO Medications: IV or other alternative means only Aspiration Precautions: Sit upright for all PO intake Slow rate; single ice chips and small sips of water Excellent oral care to reduce risk of aspiration pneumonia Delirium Precautions: Orientation: Provide visual and hearing aids Utilize cues such as calendars and clocks Encourage communication and reorient patient repeatedly Have familiar objects from patient's home in room Attempt consistency in nursing staff Allow television during the day with daily news Environment: Sleep hygiene (dim light at nighttime, bright during the day) Limit excess noise (staff, equipment, visitors at night) Ambulate or mobilize patient early and often Speech Therapy Goals: Pt will tolerate least restrictive diet without further respiratory decompensation. Caregiver will be independent with aspiration precautions. Pt will maintain hydration / nutrition with optimal safety and efficiency. Caregiver will follow anti-delirium precautions with assist from staff as needed. Plan: Therapy Frequency (TREASURY CONSULTANT Eval): 3-5 times/wk Patient's is in agreement with the plan of care. Total Minutes (Speech Language Pathology): 40 Tiarra Vasquez MS, CCC-TREASURY CONSULTANT Speech-Language Pathologist Inpatient Rehabilitation Pager # [phone] * [place] Leal, PT - 05/18/2023 2:02 PM EDT Physical Therapy Intervention Note Treatment Number PT: 6 Total duration of encounter: 30 days Patient profile: Myla Acosta is a 67 year old male with unknown pmhx (per chart review, does notappear to have a PCP or follow up within the [facility] system) who presents as a transfer from an OSH for evaluation of a right cerebellar IPH. Per report, LKN was 04/17/23 at 2100, he woke up c/o vertigo and nausea/vomiting. Subsequent imaging studies revealed a right cerebellar IPH with ANIL. Initial Bps were noted to be in the 200s. Was started on a nicard gtt for BP control. Was subsequently intubated at the OSH for airway protection given worsening somnolence. Presented to [facility] where he was intubated. Brainstem reflexes were preserved. Decision was made to place EVD with NSG. Imaging of carotids and [place] of [place] reveal unexpected finding of type B aortic dissection. CTACA with type B dissection extending from subclav to external iliac. Vascular surgery was consulted.Pt was extubated on 04/23, but has been on the CIWA protocol. 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 Vascular surgery was consulted and patient remained under strict BP and HR paraemters (SBP <120, HR <60) -Patient was started on aspirin -Due to difficulty controlling BP nephrology was consulted and patient was started on labetalol, hydralazine, clonidine, lisinopril diltiazem, terazosin, and still required clevidipine gtt and nitro.Urine metanephrines sent abnd pending -Patient had been extubated on 04/18 but required reintubation after a hypoxic event and AMS. He wasextubated on 05/04 to 4L NC and remained on CPAP 24-hour Events: family GOC given unchanged dissection would be to liberalize SBP goals to get off drips with the goal of leaving ICU to potentially improve ICU delirium Social History: Patient lives with spouse in a [place] level home, [address]. Walk in shower with Gbs. Spouse works fulltime. 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 Normally independent. Bilateral hip OA/pain but no device used normally. Independent ADLs and shared IADLs Precautions/Special Considerations: Code limitations DNR/DNI, HOB > 30 deg, SBP <160, HR <80, rebolledo catheter, PICC, DHT, goal spO2 >92%, supplemental O2 via NC, agitation, restraints Mobility and Positioning Recommendations: Pt. to utilize bed/chair positioning with nursing. Recommend fidget devices to occupy hands and avoid pulling lines/tubes without restraints EPM Level 2: Bed-Chair position, Mechanically lift to chair, Participate in self care Lift to chair daily please Subjective: ???stop running your mouth! Objective: Pt seen for physical therapy treatment today and presented as follows: Pain: No pain endorsed throughout session - generally uncomfortable and restless Vital Signs: At Rest With Activity SpO2 (2LNC -->RA) 93% 92% BP (MAP) 112/81 (89)mmHg HR 70sbpm 70s-80sbpm Behavior / Mood: alert, confused, impaired task initiation, irritable, combative, oppositional, generally frustrated, constantly fidgeting with lines/tubes. Able to re-direct with constant cuing and supervision Oriented to: person. Follows commands: 1 step and 75% of the time, needs repeated verbal and tactile cuing, visual cues helpful Attention: difficulty attending to task/directions, verbal and tactile cuing, distractible Safety awareness: impulsive and bilateral wrist and mitt restraints. Constantly attempting to get restraints off and pull at lines/tubes, combative. Agitated RASS: +1/+2 CAM: N/A Communication: verbal, garbled/mumbled speech at times Vision: glasses worn, appearing WFL Skin: intact but at risk for breakdown Musculoskeletal: ROM: full AROM and PROM appreciated UE and LE based on observation Sensation: AVI Tone: normal Strength: very strong 5/5 bilateral UE attempting to remove restraints and lines/tubes, highly resistance, bilateral LE at least 3/5 Coordination: -difficulty with holding hands together at midline Bed Mobility: Supine to Sit: to R side EOB, x1 mod A, able to initiate and bring LE to EOB with verbal cues, mod A for trunk and positioning in midline Sit to Supine: N/A - left OOB to chair Other: N/A Transfers: Sit to Stand: attempted - x2 max A with FWW but unable to achieve full upright Stand to Sit: AVI Bed to Chair: mechanical lift, dependent, split leg sling Other: N/A Gait: AVI Stairs: AVI Balance: Sitting Static: fair - able to maintain with bilateral UE support, LOB posteriorly after 15 seconds, CGA Sitting Dynamic: poor, without UE support LOB posteriorly, x1 mod A with fatigue and LOB, VC to achieve midline posture Standing Static: AVI Standing Dynamic / Gait: AVI Education: patient educated on role of PT, orientation, participation, safety, bed mobility, lines/tubes, and plan of care, with guarded understanding/demonstration. Patient status, treatment, and mobility recommendations discussed with nursing. Pt left seated in bedside recliner chair, with all needs met, with call hurley in reach, with chair alarm active, restraints re-secured, and lift pad underneath following visit. Team Communication: communication with nursing staff pre/post session regarding readiness and response to therapy intervention. Assessment: Myla Acosta was seen today for physical therapy intervention. Pt continues to be confused, irritable, and with poor command following. More agitated and oppositional today, with decreased participation in activity. Assisted in bed mobility and seated balance, which was slightly worse than previous session. Unable to stand today, therefore lifted out of bed to chair. Pt's cognition continues to be large barrier to progress. VS more stable this date. Based on current presentation, current trajectory remains DC to subacute rehab facility. Pt will benefit from skilled therapy services throughout hospitalization to promote safety, independence, and provide developmental support/caregiver education. Discharge Recommendations: Based on the current findings, Anticipated Discharge Disposition (PT): detention facility, extended care facility / ICF when medically ready for hospital discharge. Discharge recommendation is based on the patient's current physical impairments, prior functional status, potential to return to prior level of function, patient motivation, reported home support, potential for functional gains, current level of endurance, reported home environment and anticipated trajectory of progress and may change based on patient progress during this hospitalization. Consult Recommendations: No other consults recommended at this time. Equipment Needs: Anticipated Equipment Needs at Discharge (PT): to be determined Inpatient/Acute Care PT Plan: Therapy Frequency (PT): 2-4 times/wk for therapy. x Consult service will continue to follow patient. PT signing off. Recommendations above, page if further consultation required. Goals: Goals ongoing as of 05/18/23 unless otherwise noted Goals: To be achieved by 05/25/23: Pt. to demonstrate knowledge of safety limitations and precautions Pt. to demonstrate understanding of appropriate exercises. Pt. to perform supine to/from sitting EOB with mod A x2 MET 10 --> updated to min A x1 with LRAD Pt. to perform sit to/from stand transfers with mod A x2 and LRAD Pt. to ambulate 10 feet with mod A and least restrictive assistive device Pt. to propel WC x50 feet with min A Pt to sit at EOB, participating in functional task for >5 minutes without LOB, with CG assistance Pt to tolerate use of overhead lift for OOB transfers MET 4/3 Pt to tolerate upright positioning with VSS Time IN / OUT: 9896-1662 Total Minutes, Physical Therapy: 26 Billing Code: x2 TEF Thank you for this consult. [place] Leal, PT Pager: [phone] Physical Therapy Inpatient Rehabilitation Department * Tiarra Vasquez, TREASURY CONSULTANT - 05/18/2023 10:51 AM EDT Speech Pathology Contact Note Chart reviewed. Attempted to see patient for dysphagia management; however, he was too lethargic tomeaningfully participate. Will try again in the afternoon. Please secure chat with questions, thanks! Tiarra Vasquez, MS, [facility]-TREASURY CONSULTANT Speech-Language Pathologist Inpatient Rehabilitation Pager # [phone] * Georges Jacob MD - 05/18/2023 9:22 AM EDT Images from the original note were not included. NEUROCRITICAL CARE PROGRESS NOTE Date of Admission: 04/18/2023 6:34 AM LOS: 30 ICU LOS: 30d 2h 24 Hour Events: Total 120 lasix given Agitated overnight, removed NGT, given 25 seroquel, 2 ativan Cleviprex 4 Net -800 Active Medications: clevidipine 6 mg/hr (05/18/23 0644) labetaloL 600 mg Per NG tube Q6H spironolactone (Aldactone) 100 mg in sterile water 10 mL custom oral liquid 100 mg Per NG tube Daily cloNIDine 0.2 mg Per NG tube Q8H sodium chloride 2 g Per NG tube TID QUEtiapine 100 mg Per NG tube Nightly insulin lispro 1-4 Units Subcutaneous Q4H [facility] tube feeding diet 230 mL Per NG tube 4 Times Daily simethicone 40 mg Per NG tube 4 Times Daily hydrALAZINE 200 mg Per NG tube Q6H terazosin 1 mg Per NG tube BID traMADoL 50 mg Per NG tube Q8H FLUoxetine 20 mg Per NG tube Daily aspirin 81 mg Per NG tube Daily lisinopriL 40 mg Per NG tube Daily ergocalciferoL (vitamin D2) 50,000 Units Per NG tube Weekly heparin (porcine) 5,000 Units Subcutaneous Q8H YUSUF camphor-methyl salicyl-menthoL Topical (Top) BID QUEtiapine, carboxymethylcellulose, hydrALAZINE, glucose 40% oral geL OR dextrose OR glucagon, senna-docusate, ipratropium-albuteroL, sodium chloride, oxyCODONE, mzzlvg-rvyzcgiy-jaajnlz DR AND sodium bicarbonate, polyethylene glycoL (MIRALAX) oral powder AND bisacodyL AND bisacodyl EC AND lactulose AND lactulose AND magnesium citrate AND Tap water enema, acetaminophen, potassium chloride ER OR potassium chloride ER, enalaprilat Vitals: Vital Sign Ranges: Last value Range last 24 hrs Temperature Temp: 37.2 ??C (99 ??F) Temp: [36.7 ??C (98.1 ??F)-37.2 ??C (99 ??F)] Heart Rate Heart Rate: 68 Heart Rate: [61-90] Blood Pressure BP: 144/66 BP: (108-160)/(49-77) Respiratory Rate Resp: 23 Resp: [11-29] SpO2 SpO2: 93 % SpO2: [86 %-98 %] Art BP BP (Arterial Line): 107/51 BP (Arterial Line): -- Intake/Output: I/O / 0701 / 0700 05/15 0701 05/16 0700 05/16 0701 05/17 0700 05/17 0701 05/18 0700 P.O. 0 0 I.V. (mL/kg/hr) 3094.9 (1.1) 1840.3 (0.7) 1266.4 (0.5) Blood 0 0 Other 0 0 NG/GT 940 1130 980 IV Piggyback 0.5 Irrigation 260 130 260 Total Intake(mL/kg) 4295.4 (37.6) 3100.3 (27.1) 2506.4 (22.2) Urine (mL/kg/hr) 1765 (0.6) 1855 (0.7) 3270 (1.2) Emesis/NG output 0 0 0 Other 120 0 Stool 20 0 0 Blood 0 Urine/Stool Mixed 0 Total Output(mL/kg) 1905 (16.7) 1855 (16.2) 3270 (28.9) Net +2390.4 +1245.3 -763.6 Stool Occurrence 0 x 2 x 1 x Emesis Occurrence 0 x 0 x 0 x Lines/Drains/Airways: PICC Line 04/20/23 1410 Triple Lumen 5 Fr brachial vein, right (Active) External Catheter Length (cm) 1 05/12/23 1124 Indication/Daily Review of Necessity Medications known to cause phlebitis (vasopressors, concentrated electrolytes, TPN, chemotherapy) 05/16/231999 Site Preparation/Maintenance dressing: dry and intact 05/17/23599 Dressing change due 05/19/23 05/16/231999 Needleless Connector change due 05/21/23 05/16/231999 Securement catheter stabilization device, secured with 05/17/23 0400 Distal (Foster) Patency/Maintenance flushed without difficulty;alcohol impregnated cap applied 05/17/23 0400 Medial (White) Patency/Maintenance flushed without difficulty;alcohol impregnated cap applied 05/17/23 0400 Proximal (Red) Patency/Maintenance flushed without difficulty;infusing 05/17/23 0400 Phlebitis 0-->no symptoms 05/17/23599 Infiltration 0-->no symptoms 05/17/23599 Site Signs/Symptoms no redness;no swelling;no warmth;no pain 05/17/23599 Arm Circumference [place] Between Insertion & Axilla (cm) 35 05/12/23 1124 Interventions other (see comments) 05/01/23 0916 Urethral Catheter 04/24/23 1401 (Active) Indication/Necessity Acute urinary retention or obstruction 05/17/23 08 Securement secured to upper leg with adhesive device 05/17/23 08 Maintenance Closed system maintained;Collection bag maintained below the bladder;Catheter secured to leg;Urine flow is unobstructed;Hand hygiene performed before and after touching catheter and collection system;Collection bag emptied when half full or at least every 4 hours using a separate container for this patient, drainage spigot not allowed to touch container 05/17/23 08 Foreskin circumcised 05/14/23 08 Tolerance no signs/symptoms of discomfort 05/17/23799 Urine Characteristics yellow 05/17/23799 Irrigation/Flush (mL) 0 (mL) 05/16/23 1800 Urine Output (mL) 150 05/17/23 08 Net Catheter Output (mL) 300 (mL) 05/16/23 1800 Naso/Oral Tube 05/14/23 1720 right nostril (Active) Tube Advanced (cm) 65 05/15/23 08 Placement Check Methods distal length tube measured 05/17/23799 Catheter Depth (cm) 65 cm 05/17/23 08 Tolerance no adverse signs/symptoms 05/17/23 08 Securement taped to nostril center 05/17/23799 Clamp Status/Tolerance clamped;no abdominal discomfort;no abdominal distention 05/17/23799 Flush/Irrigation flushed with;water 05/17/23799 Irrigation/Flush (mL) 30 (mL) 05/17/23799 Tube Intake (mL) 30 05/16/23 1800 General Output (mL) 120 05/15/23 08 Net Naso/Oral Volume (mL) 30 (mL) 05/17/23 0800 Pressure Injury 05/02/23 other (see comments) Stage 1 (Active) Dressing Appearance dry;intact 05/16/231999 Pressure Injury Appearance dry;black eschar 05/16/23 1100 Area dry 05/16/23 1100 Wound Length (cm) 0.9 cm 05/09/23 1459 Wound Width (cm) 0.6 cm 05/09/23 1459 Wound Surface Area (cm^2) 0.54 cm^2 05/09/23 1459 Edges fixed 05/11/231999 Stage Stage 2 05/09/23 1459 Drainage Amount none 05/16/231999 Wound Cleaning cleansed with;sterile normal saline 05/10/23 1300 Wound Interventions Dressing changed 05/10/23 1300 Dressing foam 05/16/231999 Output (mL) 0 05/10/23 0800 Wound Image 05/16/23 1100 Pressure Injury 05/09/23 other (see comments) suspected deep tissue injury (Active) Dressing Appearance dry;intact 05/16/231999 Pressure Injury Appearance dry 05/16/23 1101 Area dry 05/16/23 1101 Stage suspected deep tissue injury 05/09/23 1458 Drainage Amount none 05/16/231999 Dressing foam 05/16/231999 Wound Image 05/16/23 1101 Labs: No results found for: PHART, PO2ART, [id number] Recent Labs 05/18/23 0037 WBC 7.0 RBC 2.97* HGB 9.3* HCT 28.9* MCV 97.3* MCH 31.3 MCHC 32.2 PLATELET 209 RDWCV 14.4* Recent Labs 05/18/23 0037 NA 137 K 4.1 CL 98 CO2 30 BUN 29* CREATININE 1.61* GLUCOSE 108 Cr 1.6 from 1.4 Imaging: Physical Exam: NAD, Somnolent more so than yesterday CTAB with tachypnea improved from yesterday, mild suprasternal retractions, moderate air movement, no rales RRR no mgr Neuro: Mumbles in responses to question, occasionally appropriate States no when asked to FC Withdraws to pain x 4 brisk ASSESSMENT & PLAN: 67M R cerebellar hemorrhage with IVH and Type B aortic dissection Neuro: cerebellar hemorrhage s/p EVD CV: Type B aortic dissection - HR <70 - holding coreg and dilt per cards recs for ~ 10 second pauses (some of which have had situational vagal triggers) - SBP < 160 - con't lisinopril 40, aldactone 100, hydral 200 q6h, clonidine 0.2 q8h - labetalol 800 q6h - vascular surgery following, 3 month followup imaging ordered by vascular - ASA - con't seroquel / fluoxetine; seroquel 12.5 prn Pulm: 3 L NC requirement when sleeping only FEN/Renal: - TF - pending MBS - rebolledo for retention 04/23, trial removal - lasix prn euvolemia (trial 40, would give 80 if no response) GI: no acute ID: no acute Endo: no acute Heme: no acute PPx: SQH Tubes/Lines/Drains: PICC 04/19 Code Status: DNR/DNI per discussion with - family GOC given unchanged dissection would be to liberalize SBP goals to get off drips with the goal of leaving ICU to potentially improve ICU delirium; family is well aware after extensive discussion with me on 05/15 that risk of progression of dissection or is higher with this strategy but they are currently prioritizing minimizing intensity of care to limit possible deliriogenic effects Dispo: ICU for hemodynamic management //////////////////////////////////////////////////////////////////////////////// //// Attestation: * Delaney Gray, OT - 05/17/2023 1:24 PM EDT Occupational Therapy Treatment Note Treatment Number OT: 4 Patient profile: Myla 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 male admitted on 04/18/2023 for R cerebellar hemorrhage with IVH. EVD was placed for hydrocephalus. Pt was intubated at OSH for airway protection. Imaging of carotids and [place] reveal unexpected finding of type B aortic dissection. CTA CA with type B dissection extending from subclav to external iliac. Vascular surgery was consulted. Pt wasextubated on 04/23, but has been on the CIWA protocol. Social History: Patient lives in [place], [place] with his , Tiffany, who still works. They have 2 children 10 and 30 mins away. Home Setup: [address], 1 level, small thressholds in the house, has a large walk-in shower w/ no seat but grab bar. Per his , he built the house. DME: grab bar, Baseline ADL/Mobility: Pt was independent w/ ADL's. He was somewhat limited because of arthritis inhis hips, but he ambulated w/o a device and his denies h/o falls. He was driving. They share cooking, but Tiffany does most other solderer electronic. 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 He enjoys woodworking and puttering. Hospital Events: 04/18/23: cerebellar hemorrhage and Type B aortic dissection; respiratory failure resulting in intubation and EVD placement 04/19/23; extubation 04/20/23:reintubation 04/22/23: extubation 04/27/23: reintubation 04/30/23: VAP 05/05/23: extubated Precautions/Special Considerations: DNI/DNR; at risk to fall, NGT, SBP< 120, HR<80, R UE PICC, supplemental 02, rebolledo; risk for delirium Interval History: EVD removed; extubated 05/04 S: What do I have to do? O: Patient seen for skilled OT treatment. Pt's Gina was present during session. Pt demonstrated the following: Self-care: Mod A and brys-iset-[id number] to brush teeth/mouth with suction toothbrush as well as Mod VCs for sequencing; with R hand Same with using washcloth Max A and iesm-snxt-cfeg to hold cup in R hand and bring to mouth as well as bring spoon to mouth with pudding TREASURY CONSULTANT present to assess swallowing and attention Functional Mobility: Received sitting in recliner with R mitt. Boosted back in chair with Mod A and Mod VCs, able to lean forward using arm rests safely and with CGA Pt left sitting in recliner with spouse present, Ko rosales. RN updated. Cognition: Behavior / Mood: alert, cooperative, confused, and impaired task initiation; intermittent frustration Alert and oriented to: person, did not formally assess Follows commands: 1 step, 75% of the time, requires increased time, and requires repetition Attention: distractible, difficulty attending to task / directions, and requires cues to redirect Safety awareness: decreased insight into deficits and moderate impairment (reaching toward nose butnot attempting to pull NGT) Communication: difficult to understand, mumbling/dysarthric Vision: eyes open most of session, tracking to speaker; when cued to visualy track, able to follow speaker to R and L; when shown fingers, appeared to report seeing appropriately (no diplopia noted);will continue to assess; demonstrates poor depth perception when reaching for items. Spouse stated that glasses are a weaker prescription as his other ones are crooked. Endurance: Requires frequent rest breaks Vital Signs: 3L via NC With Activity SpO2 87-92% BP (MAP) 134/71 (87) HR 87 bpm Strength/ROM: moving all extremities against gravity but weak and edematous UE's Pain: no overt c/o pain this session Education: Pt/family/caregiver education ongoing regarding: Role of occupational therapy/rehabilitation, Transfers, ADL, Exercise, Breathing exercises, Positioning, Safety, Precautions/Protocol, Functional Mobility, Activity pacing/Energy conservation, Balance, Recommendations, Family training, and Discharge planning. Staff Communication: Patient status, treatment, and mobility recommendations discussed with nursing/other staff. ASSESSMENT: Myla was seen for progression of OT per plan of care. He demonstrates good arousal andparticipation with frequent rest breaks. He is following most simple commands. Pt was able to brushteeth and wipe his face with Mod A and wzzr-iyke-jhil using R hand for support. Mod A and qggk-hrtf-nswf to hold a cup and spoon to bring to his mouth. Myla will benefit from ongoing therapeutic interventions to achieve pt's and therapy goals Equipment needs at discharge: to be determined Anticipated Discharge Disposition: detention facility Daily schedule / Staff Recommendations: Open shades and turn on lights during the day/lights off at night, Set-up patient with ADL tasks, allow patient to complete ADL tasks as independently as possible Provide choices as able, encourage safe coping skills (such as music, reading, coloring, word search, journaling) Have patient sit up in recliner via lift or bed in chair position during the day as much as possible Sit upright for all meals/meal times Goals: To be achieved within 2 weeks, by 05/31/23: Patient will consistently follow simple one-step commands. Inconsistent each session Patient will consistently be oriented x 4 and CAM (-). Patient will be complete grooming tasks in supported sitting w/ min A. Patient will be mod A with LB dressing. Patient will transfer to the commode with Mod A and least restrictive assistive device. Patient will be mod A w/ a sponge bath in supported sitting. Patient will participate in further vision evaluation. Therapy Frequency (OT): 2-4 times/wk Total Minutes, Occupational Therapy: 19 ([phone] (self care x1)) Pager: [phone] Delaney Gray OT 05/17/2023 Occupational Therapy Rehabilitation Department * Tiarra Vasquez, TREASURY CONSULTANT - 05/17/2023 12:41 PM EDT Speech Therapy Note Patient Profile: Myla 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 He was intubated at OSH for airway protection given worsening somnolence and transferred to [facility] on 04/18/2023. Hospital course has been complicated by hypoxic respiratory failure requiring multiple intubations (04/17-04/18, 04/18-04/21, 04/26-05/04; 12 days total). TREASURY CONSULTANT has been following since 04/23 for cognition and dysphagia management. Interval History: Agitated overnight Recent Imaging: CT Angiogram Chest, Abdomen, & Pelvis (05/16/2023) IMPRESSION 1. Unchanged extent of the Ammon B aortic dissection from the left subclavian artery origin through the external iliac arteries. Unchanged 4.7 cm caliber of the proximal descending thoracic aorta. 2. 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 Remaining vessels arise off the true lumen. 3. Ascending aortic dilation to 4.6 cm. 4. No left renal ischemia, however, a left interpole cyst appears to health partially ruptured in the interim. High density of the lesion can also be seen with solid neoplasm. Nonemergent multiphase CT or MRI is recommended as an outpatient for cyst confirmation. 5. Cardiomegaly with biatrial enlargement and myocardial hypertrophy of the left ventricle. Consider cardiology evaluation. Subjective: Patient seen in conjunction with OT. He was alert and easily frustrated but cooperated with minimal cues. Objective: Patient seen for dysphagia management and demonstrated the following: Pain: No acute signs of discomfort Respiratory Status: Nasal canula 3 L/min, satting 92-94% Current Diet: Sips and Chips (Give Meds) Feeding / Oral Care Status: Patient requires cues and/or assistance due to a combination of post-stroke weakness, generalized deconditioning, and altered mental status. Today, he assisted with superficial oral care (100% assist for thorough cleaning) and self-administered approximately 50% of trials with dakk-oebhi-fgoh assistance. Cognitive-Linguistic Status: Awake and alert Oriented to self only; reports that we are at [facility] Provided frequent reorientation Responding to simple, subjective questions appropriately, though frequently shrugs or says I don'tknow Positioning: Pt up to chair Oral Motor Examination: No significant changes Bolus Presentations: Water via straw x1 Puree via tsp x3 Regular solid (toast; 1 bite) Oral Preparatory Phase Mastication: Minimal attempts with regular, dry solids Oral transit: Sluggish and disorganized with regular solids; patient ultimately spit out the majority of his toast. Subjectively timelier with puree. Bolus cohesion: Suspect reduced Oral containment: Complete, no anterior loss Oral stasis: Diffuse residue with regular solids which patient ultimately spit out Pharyngeal Phase Swallow initiation: Sluggish Vocal quality change: None Cough / throat clear: Extended coughing episode following a liquid wash to clear solids from the oral cavity Pt complaint of food getting stuck: Reports oral stasis with regular solids Fatigue across trials: None Respiratory rate and respiratory swallow pattern: Unlabored and coordinated Esophageal Observations No overt signs of esophageal dysphagia noted. Education: Discussed patient status and recommendations, including frequent practice with ice chipsand small amounts of water while awake alongside trials of more advanced consistencies during TREASURY CONSULTANT sessions. Explained that patient's frequent fluctuations in behavior and alertness have posed a barrier to scheduling and completing a modified barium swallow, and agreed to continue frequent clinical reassessment while awaiting an appropriate window. Patient's asking about timeline for NGT removal; advised her that we would need to see more consistent wakefulness and engagement along with improvements in swallow function prior to discontinuing enteral nutrition. Patient status and swallow recommendations were discussed with nursing and the primary team. Assessment: Myla was seen today for dysphagia management. He was awake, alert, and easily frustrated but redirectable with cues. He responded to simple questions and followed simple commands appropriately. Myla completed PO trials of water, pudding, and a small piece of toast to assess tolerance of solids. His oral phase was sluggish and he ultimately spit out the toast, suspect due to trouble manipulating and swallowing a dry solid. He presented with overt signs of aspiration with a liquid wash. Myla seemed to tolerate small volumes of puree well from a respiratory standpoint. Suspect dysphagia is multifactorial in the setting of post-stroke weakness, generalized deconditioning, and delirium, and will likely continue to evolve with progression of neurological symptoms. Myla's fluctuating mentation and agitation have made it challenging to find an appropriate window to complete a modified barium swallow. We will continue attempts to schedule a study but will also plan for frequent clinical reassessment. If Myla can tolerate PO trials of more advanced consistencies at the bedside without overt signs of aspiration, we will consider starting a diet without the MBS. However, I remain concerned about his ability to take in enough nutrition by mouth to meet his needs given his fluctuating mental status. For now, continue sips and chips for practice when patient is alert and accepting. Please provide frequent oral care (at least 2x/daily) to reduce risk of developing aspiration pneumonia. We will continue to follow. Diagnosis: Oral and suspected pharyngeal dysphagia 2/2 post-stroke weakness, generalized deconditioning, and altered mental status Recommendations: Diet: Sips and chips PO Medications: IV or other alternative means only Aspiration Precautions: Sit upright for all PO intake Slow rate; single ice chips and small sips of water Excellent oral care to reduce risk of aspiration pneumonia Delirium Precautions: Orientation: Provide visual and hearing aids Utilize cues such as calendars and clocks Encourage communication and reorient patient repeatedly Have familiar objects from patient's home in room Attempt consistency in nursing staff Allow television during the day with daily news Environment: Sleep hygiene (dim light at nighttime, bright during the day) Limit excess noise (staff, equipment, visitors at night) Ambulate or mobilize patient early and often Speech Therapy Goals: Pt will tolerate least restrictive diet without further respiratory decompensation. Caregiver will be independent with aspiration precautions. Pt will maintain hydration / nutrition with optimal safety and efficiency. Caregiver will follow anti-delirium precautions with assist from staff as needed. Plan: Therapy Frequency (TREASURY CONSULTANT Eval): 3-5 times/wk Patient's is in agreement with the plan of care. Total Minutes (Speech Language Pathology): 15 Tiarra Vasquez MS, [facility]-TREASURY CONSULTANT Speech-Language Pathologist Inpatient Rehabilitation Pager # [phone] * Maria Pineda - 05/17/2023 11:25 AM EDT Annette Encounter Note Patient Name: Myla Acosta : [id number] MR#: [id number] Admit Date: 04/18/2023 6:34 AM Hospital Day 29 days Narrative: Follow up visit. The patient's Tete was at bedside. He was sitting up in his chair. Assessment: The patient was awake and able to converse a bit. His is doing the best she can to cope. She said she never knows what to expect each day in terms of how the patient is doing. Intervention and Outcome: Provided empathetic listening. Acknowledged that all the ups and downs are like a roller coaster. Told them I would be thinking of them. The patient's expressed thanks. Follow-up: Pouch Maker available for continued support. Time in Direct Care: 10 minutes. Maria Pineda 05/17/2023 * [place] Leal, PT - 05/17/2023 10:15 AM EDT Physical Therapy Intervention Note Treatment Number PT: 5 Total duration of encounter: 29 days Patient profile: Myla Acosta is a 67 year old male with unknown pmhx (per chart review, does notappear to have a PCP or follow up within the [facility] system) who presents as a transfer from an OSH for evaluation of a right cerebellar IPH. Per report, LKN was 04/17/23 at 2100, he woke up c/o vertigo and nausea/vomiting. Subsequent imaging studies revealed a right cerebellar IPH with ANIL. Initial Bps were noted to be in the 200s. Was started on a nicard gtt for BP control. Was subsequently intubated at the OSH for airway protection given worsening somnolence. Presented to [facility] where he was intubated. Brainstem reflexes were preserved. Decision was made to place EVD with NSG. Imaging of carotids and [place] of [place] reveal unexpected finding of type B aortic dissection. CTACA with type B dissection extending from subclav to external iliac. Vascular surgery was consulted.Pt was extubated on 04/23, but has been on the CIWA protocol. 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 Vascular surgery was consulted and patient remained under strict BP and HR paraemters (SBP <120, HR <60) -Patient was started on aspirin -Due to difficulty controlling BP nephrology was consulted and patient was started on labetalol, hydralazine, clonidine, lisinopril diltiazem, terazosin, and still required clevidipine gtt and nitro.Urine metanephrines sent abnd pending -Patient had been extubated on 04/18 but required reintubation after a hypoxic event and AMS. He wasextubated on 05/04 to 4L NC and remained on CPAP 24-hour Events: exploring potential transition to more comfort based care, palliative involved Social History: Patient lives with spouse in a [place] level home, [address]. Walk in shower with Gbs. Spouse works fulltime. 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 Normally independent. Bilateral hip OA/pain but no device used normally. Independent ADLs and shared IADLs Precautions/Special Considerations: HOB > 30 deg, SBP <140, HR <80, rebolledo catheter, PICC, DHT, goal spO2 >92%, supplementalO2 via NC, agitation, restraints Mobility and Positioning Recommendations: Pt. to utilize bed/chair positioning with nursing. Recommend fidget devices to occupy hands and avoid pulling lines/tubes without restraints EP Level 2: Bed-Chair position, Mechanically lift to chair, Participate in self care Lift to chair daily please Subjective: ???you want me to sit here but now want me to sit there??? - pt getting frustrated Objective: Pt seen for physical therapy treatment today and presented as follows: Pain: No pain endorsed throughout session - generally uncomfortable and restless Vital Signs: At Rest With Activity SpO2 (RA) 88-89% 95-97% BP (MAP) 161/59 (89)mmHg 165/65 (93) SBP mmHg RN aware and present to re-assess and medicate HR 70sbpm 70sbpm Behavior / Mood: alert, confused, impaired task initiation, irritable, combative, oppositional, generally frustrated, constantly fidgeting with lines/tubes. Able to re-direct with constant cuing and supervision Oriented to: person. Follows commands: 1 step and 75% of the time, needs repeated verbal and tactile cuing, visual cues helpful Attention: difficulty attending to task/directions, verbal and tactile cuing, distractible Safety awareness: impulsive and bilateral wrist and mitt restraints. Constantly attempting to get restraints off and pull at lines/tubes, combative. Agitated RASS: +1/+2 CAM: N/A Communication: verbal, garbled/mumbled speech at times Vision: glasses worn, appearing WFL Skin: intact but at risk for breakdown Musculoskeletal: ROM: full AROM and PROM appreciated UE and LE based on observation Sensation: AVI Tone: normal Strength: very strong 5/5 bilateral UE attempting to remove restraints and lines/tubes, highly resistance, bilateral LE at least 3/5 Coordination: Ball toss/catch at EOB in sitting - CGA/min A for posterior trunk, poor coordination of bilateral Ue in midline to catch ball - unsuccessful in attempts to catch using bilateral UE, able to with single UE. Able to toss/throw back with fair accuracy Bed Mobility: Supine to Sit: to R side EOB, x1 min A, verbal cues for positioning Sit to Supine: N/A - left OOB to chair Other: N/A Transfers: Sit to Stand: mod A x2 from EOB with walker, cues for task initiation, need for walker and general safety Stand to Sit: mod A x2, poor eccentric control, cuing for positioning and safety Bed to Chair: stand step with mod A x2, third person to stabilize chair and walker, stand step, agitated, decr command following Other: N/A Gait: AVI Stairs: AVI Balance: Sitting Static:good - once cued for midline able to maintain without UE support, SBA Sitting Dynamic: fair - CGA at EOB, posterior lean, min use of UE Standing Static: poor/fair- x2 min A with walker Standing Dynamic / Gait: poor - mod A x2 with walker Interventions: seated balance with head nods horizontally and vertically with SBA. Alternating overhead arm reaches with SBA and verbal cuing for midline. Ball toss and catch at EOB with min A for trunk at times Education: patient educated on role of PT, orientation, participation, safety, bed mobility, transfers, use ofwalker, lines/tubes, and plan of care, with guarded understanding/demonstration. Patient status, treatment, and mobility recommendations discussed with nursing. Pt left seated in bedside recliner chair, with all needs met, with call hurley in reach, with chair alarm active, restraints re-secured, and with family at the bedside following visit. Team Communication: communication with nursing staff pre/post session regarding readiness and response to therapy intervention. Assessment: Myla Acosta was seen today for physical therapy intervention. Pt much more alert and interactive today. Remains irritable and agitated, but more easily re-directable today. Assisted in bed mobility with much improved seated balance and ability to maintain midline posture. Demonstrated improved LE strength, command following and use of bilateral extremities at midline. Continues to have poor coordination as noted with ball toss/catch. Still, able to progress to standing and taking a few steps to chair but needing significant cuing and education for safe use of assistive device. Based on current presentation, current trajectory remains DC to subacute rehab facility. Pt will benefit from skilled therapy services throughout hospitalization to promote safety, independence, and provide developmental support/caregiver education. Discharge Recommendations: Based on the current findings, Anticipated Discharge Disposition (PT): detention facility when medically ready for hospital discharge. Discharge recommendation is based on the patient's current physical impairments, prior functional status, potential to return to prior level of function, patient motivation, reported home support, potential for functional gains, current level of endurance, reported home environment and anticipated trajectory of progress and may change based on patient progress during this hospitalization. Consult Recommendations: No other consults recommended at this time. Equipment Needs: Anticipated Equipment Needs at Discharge (PT): to be determined Inpatient/Acute Care PT Plan: Therapy Frequency (PT): 2-4 times/wk for therapy. x Consult service will continue to follow patient. PT signing off. Recommendations above, page if further consultation required. Goals: Goals ongoing as of 05/17/23 unless otherwise noted Goals: To be achieved by 05/25/23: Pt. to demonstrate knowledge of safety limitations and precautions Pt. to demonstrate understanding of appropriate exercises. Pt. to perform supine to/from sitting EOB with mod A x2 MET 05/16 --> updated to min A x1 with LRAD Pt. to perform sit to/from stand transfers with mod A x2 and LRAD Pt. to ambulate 10 feet with mod A and least restrictive assistive device Pt. to propel WC x50 feet with min A Pt to sit at EOB, participating in functional task for >5 minutes without LOB, with CG assistance Pt to tolerate use of overhead lift for OOB transfers MET 4/3 Pt to tolerate upright positioning with VSS Time IN / OUT: 5175-6236 Total Minutes, Physical Therapy: 28 Billing Code: x2 TEF Thank you for this consult. [place] Leal, PT Pager: [phone] Physical Therapy Inpatient Rehabilitation Department * Georges Jacob MD - 05/17/2023 9:42 AM EDT Images from the original note were not included. NEUROCRITICAL CARE PROGRESS NOTE Date of Admission: 04/18/2023 6:34 AM LOS: 29 ICU LOS: 29d 3h 24 Hour Events: Cleviprex 16 NTG 100 removed restraints without staff knowledge, patient swatted at per staff, staff provided appropriate redirection to ensure safety of both patient and Active Medications: clevidipine 16 mg/hr (05/17/23 0911) nitroGLYcerin 100 mcg/min (05/17/23 0800) spironolactone (Aldactone) 100 mg in sterile water 10 mL custom oral liquid 100 mg Per NG tube Daily labetaloL 300 mg Per NG tube Q8H cloNIDine 0.2 mg Per NG tube Q8H sodium chloride 2 g Per NG tube TID QUEtiapine 100 mg Per NG tube Nightly insulin lispro 1-4 Units Subcutaneous Q4H [facility] tube feeding diet 230 mL Per NG tube 4 Times Daily simethicone 40 mg Per NG tube 4 Times Daily hydrALAZINE 200 mg Per NG tube Q6H terazosin 1 mg Per NG tube BID traMADoL 50 mg Per NG tube Q8H FLUoxetine 20 mg Per NG tube Daily aspirin 81 mg Per NG tube Daily lisinopriL 40 mg Per NG tube Daily ergocalciferoL (vitamin D2) 50,000 Units Per NG tube Weekly heparin (porcine) 5,000 Units Subcutaneous Q8H [facility] camphor-methyl salicyl-menthoL Topical (Top) BID carboxymethylcellulose, hydrALAZINE, glucose 40% oral geL OR dextrose OR glucagon, senna-docusate, ipratropium-albuteroL, sodium chloride, oxyCODONE, woazxw-aruglcou-daatrcn DR AND sodiumbicarbonate, polyethylene glycoL (MIRALAX) oral powder AND bisacodyL AND bisacodyl EC AND lactulose AND lactulose AND magnesium citrate AND Tap water enema, acetaminophen, potassium chloride ER OR potassium chloride ER, enalaprilat Vitals: Vital Sign Ranges: Last value Range last 24 hrs Temperature Temp: 37 ??C (98.6 ??F) Temp: [36.6 ??C (97.8 ??F)-37.1 ??C (98.8 ??F)] Heart Rate Heart Rate: 81 Heart Rate: [64-92] Blood Pressure BP: 151/57 BP: (101-151)/(39-109) Respiratory Rate Resp: 24 Resp: [15-29] SpO2 SpO2: 93 % SpO2: [93 %-100 %] Art BP BP (Arterial Line): 107/51 BP (Arterial Line): -- Intake/Output: I/O 05/13 0705/14 0705/14 0705/16 0705/17 07 P.O. 0 0 0 I.V. (mL/kg/hr) 904 (0.3) 3094.9 (1.1) 1840.3 (0.7) 124 (0.4) Blood 0 0 Other 0 NG/GT 8370 672 3971 0 IV Piggyback 0.5 Irrigation 160 260 130 30 Total Intake(mL/kg) 2064 (17.8) 4295.4 (37.6) 3100.3 (27.1) 154 (1.3) Urine (mL/kg/hr) 2835 (1) 1765 (0.6) 1855 (0.7) 150 (0.5) Emesis/NG output 0 0 0 0 Other 120 0 Stool 0 20 0 0 Blood 0 Urine/Stool Mixed 0 Total Output(mL/kg) 2835 (24.4) 1905 (16.7) 1855 (16.2) 150 (1.3) Net -771 +2390.4 +1245.3 +4 Stool Occurrence 0 x 2 x 0 x Emesis Occurrence 0 x 0 x 0 x 0 x Lines/Drains/Airways: PICC Line 04/20/23 1410 Triple Lumen 5 Fr brachial vein, right (Active) External Catheter Length (cm) 1 05/12/23 1124 Indication/Daily Review of Necessity Medications known to cause phlebitis (vasopressors, concentrated electrolytes, TPN, chemotherapy) 05/16/231999 Site Preparation/Maintenance dressing: dry and intact 05/17/23599 Dressing change due 05/19/23 05/16/231999 Needleless Connector change due 05/21/23 05/16/231999 Securement catheter stabilization device, secured with 05/17/23399 Distal (Foster) Patency/Maintenance flushed without difficulty;alcohol impregnated cap applied 05/17/23399 Medial (White) Patency/Maintenance flushed without difficulty;alcohol impregnated cap applied 05/17/23399 Proximal (Red) Patency/Maintenance flushed without difficulty;infusing 05/17/23399 Phlebitis 0-->no symptoms 05/17/23599 Infiltration 0-->no symptoms 05/17/23599 Site Signs/Symptoms no redness;no swelling;no warmth;no pain 05/17/23599 Arm Circumference [place] Between Insertion & Axilla (cm) 35 05/12/23 1124 Interventions other (see comments) 05/01/23 0916 Urethral Catheter 04/24/23 1401 (Active) Indication/Necessity Acute urinary retention or obstruction 05/17/23799 Securement secured to upper leg with adhesive device 05/17/23799 Maintenance Closed system maintained;Collection bag maintained below the bladder;Catheter secured to leg;Urine flow is unobstructed;Hand hygiene performed before and after touching catheter and collection system;Collection bag emptied when half full or at least every 4 hours using a separate container for this patient, drainage spigot not allowed to touch container 05/17/23799 Foreskin circumcised 05/14/23 08 Tolerance no signs/symptoms of discomfort 05/17/23799 Urine Characteristics yellow 05/17/23799 Irrigation/Flush (mL) 0 (mL) 05/16/23 1800 Urine Output (mL) 150 05/17/23799 Net Catheter Output (mL) 300 (mL) 05/16/23 1800 Naso/Oral Tube 05/14/23 1720 right nostril (Active) Tube Advanced (cm) 65 05/15/23799 Placement Check Methods distal length tube measured 05/17/23799 Catheter Depth (cm) 65 cm 05/17/23799 Tolerance no adverse signs/symptoms 05/17/23799 Securement taped to nostril center 05/17/23 0800 Clamp Status/Tolerance clamped;no abdominal discomfort;no abdominal distention 05/17/23 08 Flush/Irrigation flushed with;water 05/17/23 0800 Irrigation/Flush (mL) 30 (mL) 05/17/23 0800 Tube Intake (mL) 30 05/16/23 1800 General Output (mL) 120 05/15/23 0800 Net Naso/Oral Volume (mL) 30 (mL) 05/17/23 0800 Pressure Injury 05/02/23 other (see comments) Stage 1 (Active) Dressing Appearance dry;intact 05/16/231999 Pressure Injury Appearance dry;black eschar 05/16/23 1100 Area dry 05/16/23 1100 Wound Length (cm) 0.9 cm 05/09/23 1459 Wound Width (cm) 0.6 cm 05/09/23 145 Wound Surface Area (cm^2) 0.54 cm^2 05/09/23 1459 Edges fixed 05/11/231999 Stage Stage 2 05/09/23 1459 Drainage Amount none 05/16/231999 Wound Cleaning cleansed with;sterile normal saline 05/10/23 1300 Wound Interventions Dressing changed 05/10/23 1300 Dressing foam 05/16/23 2000 Output (mL) 0 05/10/23 0800 Wound Image 05/16/23 1100 Pressure Injury 05/09/23 other (see comments) suspected deep tissue injury (Active) Dressing Appearance dry;intact 05/16/231999 Pressure Injury Appearance dry 05/16/23 1101 Area dry 05/16/23 1101 Stage suspected deep tissue injury 05/09/23 1458 Drainage Amount none 05/16/23 2000 Dressing foam 05/16/231999 Wound Image 05/16/23 1101 Labs: No results found for: PHART, PO2ART, [id number] Recent Labs 05/16/23 0042 WBC 7.6 RBC 3.01* HGB 9.4* HCT 29.7* MCV 98.7* MCH 31.2 MCHC 31.6* PLATELET 223 RDWCV 14.4* Recent Labs 05/17/23 0047 NA 135 K 4.2 CL 99 CO2 29 BUN 29* CREATININE 1.41 GLUCOSE 152 Imaging: CTA unchanged dissection, cardiomegaly noted and cards workup suggested - already performed echo 04/2023, will defer repeat Physical Exam: NAD Mild bilat wheezing and tachypnea, good air movement, no rales, no accessory muscle use RRR no mgr Neuro: Awake/alert, much more alert than yesterday Moderate RUE ataxia similar to prior LUE refuses FTN BUE FC with relatively equal handgrip Moves toes bilat to command Overall much more alert than yesterday ASSESSMENT & PLAN: 67M R cerebellar hemorrhage with IVH and Type B aortic dissection Neuro: cerebellar hemorrhage s/p EVD CV: Type B aortic dissection - HR <70 - holding coreg and dilt per cards recs for ~ 10 second pauses (some of which have had situational vagal triggers) - SBP < 160 - con't lisinopril 40, aldactone 100, hydral 200 q6h, clonidine 0.2 q8h - labetalol 600 q6h - cleviprex prn, nitro gtt prn - vascular surgery following, 3 month followup imaging ordered by vascular - ASA - con't seroquel / fluoxetine; add seroquel Pulm: no acute FEN/Renal: - TF - pending MBS - rebolledo for retention 04/23, voiding trial when hemodynamics/asystolic periods stabilized - lasix prn euvolemia (trial 40, would give 80 if no response) GI: no acute ID: no acute Endo: no acute Heme: no acute PPx: SQH Tubes/Lines/Drains: PICC 04/19 Code Status: DNR/DNI per discussion with - family GOC given unchanged dissection would be to liberalize SBP goals to get off drips with the goal of leaving ICU to potentially improve ICU delirium; family is well aware after extensive discussion with me on 05/15 that risk of progression of dissection or is higher with this strategy but they are currently prioritizing minimizing intensity of care to limit possible deliriogenic effects Dispo: ICU for hemodynamic management //////////////////////////////////////////////////////////////////////////////// //// Attestation: * Tiarra Vasquez TREASURY CONSULTANT - 05/17/2023 8:57 AM EDT Speech Pathology Contact Note Radiologist confirmed availability for 11am MBS today. Per RN, patient has been agitated and combative this morning and is not appropriate for safe transfer to radiology. We will continue to monitor patient status and provide further recommendations as indicated. Tiarra Vasquez MS, CCC-TREASURY CONSULTANT Speech-Language Pathologist Inpatient Rehabilitation Pager # [phone] * Coleman Forbes MSW - 05/16/2023 4:43 PM EDT Initial visit or follow-up visit? (select one) Initial Visit Visit with (select all that apply): Patient Reason for visit (select all that apply): Care coordination, Coping related to serious illness, and Grief and bereavement support Patient: Myla Acosta : 1955 Encounter Date: 05/16/2023 Myla Acosta continues to be followed by the Palliative Care service for coping support, goals of care, and medical decision making. PALLIATIVE CARE HOSPITAL MEDICINE DIRECTOR ASSESSMENT: HOSPITAL MEDICINE DIRECTOR joined complex care/family meeting as a support to family and palliative care freight team associate Eugenia Andrade APRN. Myla's family (spouse Tete, son Royal, daughter Ángela, sister Meeta and HELENA Lisa) were present. Neuro team offered updates on Myla's condition, and particularly on his delirium.Processed goals of care, and offered support around family's emotional roller coaster of feelings as Myla's mental status waxes and wanes. Plan is to continue taking things a day at a time with the goal of stepping down from the NCCU. Tete processed that Myla was fiercely independent and tough, and would not want aggressive care. Visited Myla in his room. He was awake and alert, but not orie nted to time or location. Plan is to meet with consulting teams as well. PLAN/RECOMMENDATIONS: HOSPITAL MEDICINE DIRECTOR is available for ongoing emotional support to patient and family. Palliative continuity provider(s): Coleman Forbes, [facility], pager #[phone] * Eugenia Andrade, OPERATIONS INTERN - 05/16/2023 1:30 PM EDT Palliative Care Daily Progress Note NAME: Myla Acosta Encounter Date: 05/16/2023 Inpatient Attending: Georges Jacob MD PCP: Fransico Remy MD Hospital day: Hospital Day 28 days ID: Myla 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 male from [place], [place] who never sought much medical care and who presented 27 days ago initially with a right cerebellar IPH. Subsequent imaging studies revealed aright cerebellar IPH with ANIL. He is s/p EVD and a course complicated by a incidental finding of a large type B Aortic dissection, intractable HTN requiring multiple oral and IV medications and agitated delirium who continues to be followed by the Palliative Care service for goals of care, decisionsupport. Interval History: - Myla remains confused and in restraints. - Ongoing need for NCCU care in the setting intractable HTN requiring multiple oral and IV agents. Physical symptoms/ROS: Patient is awake, confused, disoriented. Denies pain at the time of my visits. Emotional/coping/counseling: Family meeting held today with the NCCU team (Dr. Jacob, Dr. Godoy), Dr. Parsons, LUCIO Smith and I from palliative care, [facility] and Terrell RN Student. From family: , Tete, [id number]: Meeta and Lisa and son, Royal and his S.O., Juanita and daughter, Ángela. Dr. Jacob gave a medical update on Myla' course to date and current medical issues with HTN requiring ICU admission and delirium. He discussed the stroke, the aortic dissection and the delirium. Hediscussed that surgery is not recommended for this type of dissection and medical management is recommended. He discussed the delirium and contributing factors, more likely his environment and current condition than the stroke. He discussed that his prognosis could be good from the stroke if the delirium clears. Family had an opportunity to ask many questions. They discussed Myla as a person and trade offs. They felt Myla would continue to go through this hospitalization if there was hope that he could eventually get home. They feel he would not wish CPR or mechanical ventilation. Tete asked about theidea of tolerating a higher blood pressure so that we can get Myla out of the ICU and moving toward a path of getting out of the hospital. They agreed with the idea of CT scan to see if the dissection has remained stable prior to making changes with the antihypertensive meds. Tete and family feel that a fdc feeding tube, such as a PEG, would not be something Myla would want. He would accept a time limited trial for now and they wish to await the outcome of the MBS test. Were goals of care discussed?: Yes Advance Care Planning: Current code status: Do NOT Attempt CPR - Inpatient Was an advance directive document completed during visit?: Not completed and none already present. Was one discussed? Was not discussed Does the patient have a completed POLST/MOLST?: No POLST/COLST on file. If not, was a POLST/MOLST completed?: No If neither, was the completion of a POLST/MOLST discussed?: No Physical Examination: VSS Frail, elderly man in NAD Lying in bed, restraints :opal and wrist in place. Resp: no increased work of breathing. Skin: warm and dry Neuro: disoriented to person and place. Palliative Care Assessment: 67 y.o. male from [place], [place] who never sought much medical care and who presented 27 days ago initially with a right cerebellar IPH. Subsequent imaging studies revealed a right cerebellar IPH withIVE. He is s/p EVD and a course complicated by a incidental finding of a large type B Aortic dissection, intractable HTN requiring multiple oral and IV medications and agitated delirium who continuesto be followed by the Palliative Care service for goals of care, decision support. Plan/Recommendations: Goals of care and achievability: Continue with DNAR orders and no pre-arrest intubation. Family wish to get Myla the CT scan and if dissection is stable, consider tolerating a higher BP, knowing the risks with the goal of getting him out of the ICU. Understanding of illness and prognostic awareness: Good prognostic and illness awareness. Recommended changes to the care plan: Yes, see above: begin to wean IV antihypertensive meds to facility liberation from the ICU if dissection is stable on CT scan. Minimize sedative medications Ongoing delirium precautions. Palliative Care follow-up plan: Medical team Nursing team Psychosocial Support Inpatient As needed for decision support Outpatient Explicitly offered follow-up?: NO Time-based: 50 minutes were spent over the course of the day on this patient encounter including time spent in chart review, assessment of and counseling with the patient, counseling with the patient's childcare attendant(s), coordination with the consulting service, coordination with palliative IDT members and in doc umentation. EUGENIA ANDRADE APRN Palliative care team pager #[phone] * Tiarra Vasquez SLP - 05/16/2023 12:44 PM EDT Speech Therapy Note Patient Profile: Myla 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 He was intubated at OSH for airway protection given worsening somnolence and transferred to [facility] on 04/18/2023. Hospital course has been complicated by hypoxic respiratory failure requiring multiple intubations (04/17-04/18, 04/18-04/21, 04/26-05/04; 12 days total). TREASURY CONSULTANT has been following since 04/23 for cognition and dysphagia management. Interval History: Family meeting completed today Recent Imaging: No new imaging on file. Subjective: Patient was alert and confused but engaged with care. Objective: Patient seen for dysphagia management and demonstrated the following: Pain: No acute signs of discomfort Respiratory Status: Nasal canula 3 L/min, satting 97-99% Current Diet: Sips and Chips (Give Meds) Feeding / Oral Care Status: Patient requires cues and/or assistance due to a combination of post-stroke weakness, generalized deconditioning, and altered mental status. Today, he assisted with superficial oral care (100% assist for thorough cleaning) and self-administered approximately 50% of trials with efbx-qbsar-[id number] assistance. Cognitive-Linguistic Status: Awake and alert Vaguely oriented to location (A surgical place) Provided frequent reorientation Responding to simple, subjective questions appropriately, though frequently shrugs or says I don'tknow Positioning: HOB at 50 degrees Oral Motor Examination: Provided thorough oral care to remove thick dried secretions from the lips,tongue, teeth, and hard palate. Otherwise, no significant changes. Bolus Presentations: Ice chips x3 Water via teaspoon x3 Ice cream via tsp x4 Oral Preparatory Phase Mastication: N/A Oral transit: Sluggish; brief oral holding with liquids Bolus cohesion: Suspect reduced Oral containment: Complete, no anterior loss Oral stasis: None with small volumes Pharyngeal Phase Swallow initiation: Sluggish Vocal quality change: None Cough / throat clear: None Pt complaint of food getting stuck: None Fatigue across trials: None Respiratory rate and respiratory swallow pattern: Unlabored and coordinated Esophageal Observations No overt signs of esophageal dysphagia noted. Education: Discussed patient status and recommendations, including modified barium swallow scheduled for 1530 today. Returned later to confirm that patient was still appropriate for MBS; however, patient was ultimately unable to complete the study due to needing a CT scan at the same time. Radiology did not have availability to complete MBS afterwards. Patient status and swallow recommendations were discussed with nursing and the primary team. Assessment: Myla was seen today for dysphagia management. He demonstrated interval improvements inmentation from previous observations, maintaining adequate alertness to participate in a 20-minute session with minimal cues. He responded to simple questions and followed simple commands appropriately. Myla completed PO trials of ice chips, water, and ice cream. His swallow was sluggish but he did not present with overt signs of aspiration across trials. He also demonstrated subjectively improved activity tolerance compared to previous observations. Suspect dysphagia is multifactorial in the setting of post-stroke weakness, generalized deconditioning, and delirium, and will likely continue to evolve with progression of neurological symptoms. MBSwas scheduled for today at 1530; however, patient was ultimately unable to complete the study for logistical reasons (arrived late for CT and radiology was unable to accommodate a later slot for MBS). Radiology does not currently have availability for tomorrow but we will reach out in the morning to inquire about any cancellations. In the meantime, continue sips and chips for practice when patient is alert and accepting. Please provide frequent oral care (at least 2x/daily) to reduce risk of developing aspiration pneumonia. We will continue to follow. Diagnosis: Oral and suspected pharyngeal dysphagia 2/2 post-stroke weakness, generalized deconditioning, and altered mental status Recommendations: Diet: Sips and chips PO Medications: IV or other alternative means only Aspiration Precautions: Sit upright for all PO intake Slow rate; single ice chips and small sips of water Excellent oral care to reduce risk of aspiration pneumonia Delirium Precautions: Orientation: Provide visual and hearing aids Utilize cues such as calendars and clocks Encourage communication and reorient patient repeatedly Have familiar objects from patient's home in room Attempt consistency in nursing staff Allow television during the day with daily news Environment: Sleep hygiene (dim light at nighttime, bright during the day) Limit excess noise (staff, equipment, visitors at night) Ambulate or mobilize patient early and often Speech Therapy Goals: Pt will tolerate least restrictive diet without further respiratory decompensation. Caregiver will be independent with aspiration precautions. Pt will maintain hydration / nutrition with optimal safety and efficiency. Caregiver will follow anti-delirium precautions with assist from staff as needed. Plan: Therapy Frequency (TREASURY CONSULTANT Eval): 3-5 times/wk Patient's is in agreement with the plan of care. Total Minutes (Speech Language Pathology): 20 Tiarra Vasquez MS, [facility]TRE[facility] CONSULTANT Speech-Language Pathologist Inpatient Rehabilitation Pager # [phone] * Erika Lawrence - 05/16/2023 11:45 AM EDT Nutrition Progress Note Myla 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 male with unknown pmhx (no PCP or listed medications) who presents asa transfer from an OSH for evaluation of a right cerebellar IPH. Now s/p R EVD placement 04/17 givenhydrocephalus. Reason for Assessment: ICU Tube Feeding, Follow-up Nutrition Recommendations: Sips/chips per TREASURY CONSULTANT recs 4/5 Continue Nutren 2.0 with a goal of 230 mL x 4 daily Monitor hydration status on above TFs as they are concentrated. Pt may need additional fluids depending on IVFs, med flushes, p.o. Intake, etc. Mg and phos with daily labs Monitor BM - goal of 1 s80-40dug while on TF Monitor BG - goal of 140-180 Daily weights I was able to discuss plan with provider [place] [id number] team . Current Nutrition Regimen: Active Orders Diet Sips and Chips (Give Meds) Frequency: Effective Now Number of Occurrences: Until Specified All Active TF Orders: Nutren 2.0 with a goal of 230 mL x 4 daily At goal, this will provide 920 mL formula, 1840 calories, 77 grams protein, 637 mL water from formula, and 100% of the RDI's for vitamin and minerals. Average tube feeding provision over the past 2 days; 4 bolus vs daily goal volume of 4 bolus (100% of goal) Tolerance or barriers to meeting needs: none Assessment: Lab Results Component Value Date NA 139 05/16/2023 K 4.4 05/16/2023 CL 103 05/16/2023 CO2 28 05/16/2023 BUN 26 (H) 05/16/2023 CREATININE 1.23 05/16/2023 ESTGFR 65 05/16/2023 MAGNESIUM 0.87 05/16/2023 CALCIUM 9.6 05/16/2023 PHOS 3.5 05/16/2023 AST 26 04/28/2023 ALT 38 04/28/2023 ALKPHOS 61 04/28/2023 BILITOT 0.5 04/28/2023 BILIDIR 0.3 04/28/2023 TRIG 194 05/07/2023 HA1C 6.0 (H) 04/19/2023 25OHVITD 13 (L) 04/29/2023 IRON 25 (L) 04/29/2023 Lab Results Component Value Date POCGLU 178 05/16/2023 POCGLU 121 05/16/2023 POCGLU 116 05/16/2023 POCGLU 119 05/16/2023 POCGLU 203 (H) 05/15/2023 POCGLU 186 05/15/2023 POCGLU 133 05/15/2023 Patient Lines/Drains/Airways Status Active Nutritional LDAs Name Placement date Placement time Site Days Naso/Oral Tube 05/14/23 1720 right nostril 05/14/23 1720 right nostril 2 PICC Line 04/20/23 1410 Triple Lumen 5 Fr brachial vein, right 04/20/23 1410 -- 26 Urethral Catheter 04/24/23 1401 04/24/23 1401 -- 22 Pressure Injury 05/02/23 other (see comments) Stage 1 05/02/23 -- -- 14 Pressure Injury 04/02/24 other (see comments) suspected deep tissue injury 05/09/23 -- -- 7 Oxygen Therapy / Airway Device: Nasal cannula Shift Pressure Injury Prevention Occiput: No Injury Thoracic Spine: No Injury Sacral: No Injury Ischial - left: No Injury Ischial - right: No Injury Heel - left: No Injury Heel - right: No Injury Elbow - left: No Injury Elbow - right: No Injury Device Sites: BP Cuff, ECG Leads, rebolledo, IV sites, NGT, O2 sat monitor, oxygen tubing, SCD's / venodynes Other Sites: IDB Last Bowel Movement: 05/16/23 Intake/Output Summary (Last 24 hours) at 05/16/2023 1145 Last data filed at 05/16/2023 1000 Gross per 24 hour Intake 3531.5 ml Output 1910 ml Net 1621.5 ml Relevant medications: vitamin D2, lispro (not requiring), simethicone Anthropometrics: Admit Weight: 111.8 kg Estimated body mass index is 37.72 kg/m?? as calculated from the following: Height as of this encounter: 174 cm (5' 8.5). Weight as of this encounter: 114.2 kg (251 lb 12.3 oz). [place] Body Weight (IBW) (kg): 71.37 Wt Readings from Last 10 Encounters: 05/16/23 114.2 kg (251 lb 12.3 oz) Patient Vitals for the past 168 hrs: Weight 05/16/23 0000 114.2 kg (251 lb 12.3 oz) 05/15/23 0600 116 kg (255 lb 11.7 oz) 05/14/23 0600 116 kg (255 lb 11.7 oz) 05/12/23 0600 114.8 kg (253 lb 1.4 oz) 05/11/23 06 116.1 kg (255 lb 15.3 oz) 05/10/23 06 118.9 kg (262 lb 2 oz) Weight Source: Bed Estimated / Assessed Needs: Fluid Requirements: Estimated Fluid Requirement Method: Weight Based Method Weight Based Method: 30 Weight Based Calculation: 2142 mL Metabolic cart study: 1820 kcals Kcal / K - 1785 Kcal (20 Kcal/Kg - 25 Kcal/Kg) Estimated Protein Needs: 86 g - 107 g (1.2 g/Kg - 1.5 g/Kg) Nutrition intake and intake history / interview: 05/14: TF at goal. Sips and chips (give meds) per TREASURY CONSULTANT recs, possible MBS today. Pt tolerating feeds per nsg, no s/s of discomfort. Per palliative note (05/14), does not feel pt would want prolonged feeding tube, possibly considering a comfort-focused approach. LBM 05/15. 05/11: TF at goal. Na wnl today. Continues NPO per TREASURY CONSULTANT recs, has been on TF since 04/18 and has [place] sump in place. 05/09: TF now at goal. Hyponatremic today and volume status trending down. Team requesting to switch to more concentrated TF formula. 05/07: TF switched to trickle today. Per team, c/f aspiration with pt sliding down in bed - requesting to trial intermittent TF. Will increase kcal from TF now that propofol d/c. 05/04: Propofol off. TF at goal. Hyponatremic. Extubated again today. 05/02: Propofol rate decreasing, will increase kcal from TF. 04/30: TF on APR hold. Propofol went up quite a bit. 04/27: Extubated and re-intubated. TF presently off. On small amt of propofol and javon. Multiple BM yesterday. Lasix drip. GFR <60. Met cart study 1820 kcals. 04/25: TF was off/on hold this morning due to TF formula not being available per flowsheet - checkedunit storage - plenty of Pep AF in top drawer. Pt back from CT scan and TF reportedly restarted. NoBM since 04/21. Phos and Na slightly low. 04/23: Consulted again for TF. Prior goal remains appropriate for now - advance to goal. Off propofol. Has small bore feeding tube. Needs to move bowels. NPO per TREASURY CONSULTANT. 04/19: Re-intubated. TF at 25 mL/hr today. On low dose propofol. No BM this admission. 04/17: Consulted for TF recommendations. May extubate tomorrow. On some propofol. On alcohol withdrawal protocol - thiamine, folic acid and Thera M ordered. Nutrition Focused Physical Exam: Not performed Reason NFPE Not Performed: Not indicated. Malnutrition Diagnosis: Not identified (Hieu, JPEN J Parenteral Enteral Nutr. 2012 June; 36(3): 273-83) Nutrition to continue to follow up while inpatient Thank you, Erika Lawrence Gas Welding Machine Operator * Georges Jacob MD - 05/16/2023 10:20 AM EDT Images from the original note were not included. NEUROCRITICAL CARE PROGRESS NOTE Date of Admission: 04/18/2023 6:34 AM LOS: 28 ICU LOS: 28d 3h 24 Hour Events: Net + 1.5L Cleviprex restarted, max SBP 160 Active Medications: clevidipine 16 mg/hr (05/16/23851) nitroGLYcerin 200 mcg/min (05/16/23933) cloNIDine 0.2 mg Per NG tube Q8H sodium chloride 2 g Per NG tube TID QUEtiapine 100 mg Per NG tube Nightly spironolactone (Aldactone) 50 mg in sterile water 10 mL custom oral liquid 50 mg Per NG tube Daily insulin lispro 1-4 Units Subcutaneous Q4H [facility] tube feeding diet 230 mL Per NG tube 4 Times Daily simethicone 40 mg Per NG tube 4 Times Daily hydrALAZINE 200 mg Per NG tube Q6H terazosin 1 mg Per NG tube BID traMADoL 50 mg Per NG tube Q8H FLUoxetine 20 mg Per NG tube Daily aspirin 81 mg Per NG tube Daily lisinopriL 40 mg Per NG tube Daily ergocalciferoL (vitamin D2) 50,000 Units Per NG tube Weekly heparin (porcine) 5,000 Units Subcutaneous Q8H [facility] camphor-methyl salicyl-menthoL Topical (Top) BID carboxymethylcellulose, hydrALAZINE, glucose 40% oral geL OR dextrose OR glucagon, senna-docusate, ipratropium-albuteroL, sodium chloride, oxyCODONE, xudovf-vgyygfws-ovcqexq DR AND sodiumbicarbonate, polyethylene glycoL (MIRALAX) oral powder AND bisacodyL AND bisacodyl EC AND lactulose AND lactulose AND magnesium citrate AND Tap water enema, acetaminophen, potassium chloride ER OR potassium chloride ER, enalaprilat Vitals: Vital Sign Ranges: Last value Range last 24 hrs Temperature Temp: 37.1 ??C (98.7 ??F) Temp: [36.8 ??C (98.2 ??F)-37.1 ??C (98.7 ??F)] Heart Rate Heart Rate: 84 Heart Rate: [69-97] Blood Pressure BP: 161/76 BP: (121-169)/(49-91) Respiratory Rate Resp: 29 Resp: [17-29] SpO2 SpO2: 97 % SpO2: [97 %-99 %] Art BP BP (Arterial Line): 107/51 BP (Arterial Line): -- Intake/Output: I/O 05/12 0701 / 0700 05/13 0701 05/14 0700 05/14 0701 05/15 0700 05/15 0701 05/16 0700 P.O. 30 0 0 I.V. (mL/kg/hr) 1151.6 (0.4) 904 (0.3) 3094.9 (1.1) 179.7 (0.5) Blood 0 Other 0 NG/GT 670 1000 940 IV Piggyback 0.5 Irrigation 400 160 260 Total Intake(mL/kg) 2251.6 (19.4) 2064 (17.8) 4295.4 (37.6) 179.7 (1.6) Urine (mL/kg/hr) 3135 (1.1) 2835 (1) 1765 (0.6) 250 (0.7) Emesis/NG output 0 0 0 0 Other 120 Stool 345 0 20 0 Total Output(mL/kg) 3480 (30) 2835 (24.4) 1905 (16.7) 250 (2.2) Net -1228.4 -771 +2390.4 -70.3 Stool Occurrence 0 x 0 x Emesis Occurrence 0 x 0 x 0 x 0 x Lines/Drains/Airways: PICC Line 04/20/23 1410 Triple Lumen 5 Fr brachial vein, right (Active) External Catheter Length (cm) 1 05/12/23 1124 Indication/Daily Review of Necessity Medications known to cause phlebitis (vasopressors, concentrated electrolytes, TPN, chemotherapy) 05/16/23899 Site Preparation/Maintenance dressing: dry and intact 05/16/23941 Dressing change due 05/19/23 05/16/23899 Needleless Connector change due 05/21/23 05/16/23899 Securement catheter stabilization device, secured with 05/16/23899 Distal (Foster) Patency/Maintenance flushed without difficulty;alcohol impregnated cap applied 05/16/23399 Medial (White) Patency/Maintenance flushed without difficulty;alcohol impregnated cap applied 05/16/23399 Proximal (Red) Patency/Maintenance flushed without difficulty;infusing 05/16/23399 Phlebitis 0-->no symptoms 05/16/23941 Infiltration 0-->no symptoms 05/16/23941 Site Signs/Symptoms no redness;no swelling;no warmth;no pain 05/16/23399 Arm Circumference [place] Between Insertion & Axilla (cm) 35 05/12/23 1124 Interventions other (see comments) 05/01/23915 Urethral Catheter 04/24/23 1401 (Active) Indication/Necessity Q1-2hr UOP in ICU patient without alternative 05/16/23899 Securement secured to upper leg with adhesive device 05/16/23899 Maintenance Closed system maintained;Catheter secured to leg;Collection bag maintained below the bladder;Urine flow is unobstructed;Collection bag emptied when half full or at least every 4 hours using a separate container for this patient, drainage spigot not allowed to touch container;Hand hygiene performed before and after touching catheter and collection system 05/16/23899 Foreskin circumcised 05/14/23799 Tolerance no signs/symptoms of discomfort 05/16/23399 Urine Characteristics yellow 05/16/23799 Irrigation/Flush (mL) 0 (mL) 05/12/23 1800 Urine Output (mL) 250 05/16/23799 Net Catheter Output (mL) 150 (mL) 05/12/23 1800 Naso/Oral Tube 05/14/23 1720 right nostril (Active) Tube Advanced (cm) 65 05/15/23799 Placement Check Methods distal length tube measured 04/09/24 0400 Catheter Depth (cm) 65 cm 05/16/23 0400 Tolerance no adverse signs/symptoms 05/16/23 09 Securement anchored to nostril center with adhesive device 05/16/23899 Clamp Status/Tolerance clamped;no abdominal discomfort;no abdominal distention 05/16/23 040 Flush/Irrigation flushed with;water 05/16/23 0400 Irrigation/Flush (mL) 30 (mL) 05/16/23 0400 Tube Intake (mL) 60 05/15/23 2200 General Output (mL) 120 05/15/23 0800 Net Naso/Oral Volume (mL) 30 (mL) 05/16/23 0400 Pressure Injury 05/02/23 other (see comments) Stage 1 (Active) Dressing Appearance dry;intact 05/16/23 08 Pressure Injury Appearance dressing in place 05/16/23 08 Area dry 05/16/23 08 Wound Length (cm) 0.9 cm 05/09/23 1459 Wound Width (cm) 0.6 cm 05/09/23 1459 Wound Surface Area (cm^2) 0.54 cm^2 05/09/23 1459 Edges fixed 05/11/23 2000 Stage Stage 2 05/09/23 1459 Drainage Amount none 05/16/23 0400 Wound Cleaning cleansed with;sterile normal saline 05/10/23 1300 Wound Interventions Dressing changed 05/10/23 1300 Dressing open to air 05/16/23 0400 Output (mL) 0 05/10/23 0800 Wound Image 05/09/23 1459 Pressure Injury 05/09/23 other (see comments) suspected deep tissue injury (Active) Dressing Appearance dry;intact 05/16/23 08 Pressure Injury Appearance dressing in place 05/16/23 0800 Area dry 05/16/23 0800 Stage suspected deep tissue injury 05/09/23 1458 Drainage Amount none 05/16/23 0400 Dressing open to air 05/16/23 0400 Wound Image 05/09/23 1458 Labs: No results found for: PHART, PO2ART, [id number] Recent Labs 05/16/23 0042 WBC 7.6 RBC 3.01* HGB 9.4* HCT 29.7* MCV 98.7* MCH 31.2 MCHC 31.6* PLATELET 223 RDWCV 14.4* Recent Labs 05/16/23 0042 NA 139 K 4.4 CL 103 CO2 28 BUN 26* CREATININE 1.23 GLUCOSE 121 24h urinary metanephrines with 1/3 mildly elevated for hypertensive reference range, two others wnl; overall inconsistent with diagnosis of pheo Imaging: Physical Exam: NAD Remains moderately delirious MMM CTAB, tachypneic, minimally increased WOB RRR no mgr ASSESSMENT & PLAN: 67M R cerebellar hemorrhage with IVH and Type B aortic dissection Neuro: cerebellar hemorrhage s/p EVD CV: Type B aortic dissection - HR <70 - holding coreg and dilt per cards recs for ~ 10 second pauses (some of which have had situational vagal triggers) - SBP < 120 - con't lisinopril 40, aldactone 100, hydral 200 q6h, clonidine 0.2 q8h, max nitro gtt - labetalol 300 q8h - cleviprex prn - vascular surgery following, 3 month followup imaging ordered by vascular - ASA - con't seroquel / fluoxetine Pulm: no acute FEN/Renal: - TF - rebolledo for retention 04/23, voiding trial when hemodynamics/asystolic periods stabilized GI: no acute ID: no acute Endo: no acute Heme: no acute PPx: SQH Tubes/Lines/Drains: PICC 04/19, likely replace annie after GOC are clarified given ongoing significant hemodynamic requirements Code Status: DNR/DNI per discussion with - family meeting today 1:30p with NCC, palliative, possibly cardiology Dispo: ICU for hemodynamic management //////////////////////////////////////////////////////////////////////////////// //// Attestation: IS PATIENT CRITICALLY ILL ? Is there a high potential of sudden, clinically significant, or life threatening deterioration? YES Is there a need for direct personal assessment and management to treat/prevent multiple vital organfailure/deterioration? YES If this patient is not critically ill, the reason for continued hospitalization is n/a. PATIENT IS CRITICALLY ILL WITH THESE DIAGNOSES BEING MANAGED BY CCS TEAM: Cerebellar hemorrhage HTN Aortic dissection I personally performed 35 minutes of aggregate critical care time exclusive of procedures and teaching. This includes time spent during direct patient evaluation and reassessment, interpreting diagnostic tests, directing life and/or organ supporting interventions and documentation on the unit. * Zarina Herrera OT - 05/15/2023 2:30 PM EDT OT contact note 05/15/23 2620 Evaluation & Treatment Document Type contact Total Minutes, Occupational Therapy 0 Comment, Session Not Performed Per PT, pt was not appropriate for therapy today secondary to cardiac events then agitation. OT will conitnue to follow and intervene as appropriate. ZARINA HERRERA OT [id number] * Jamaica Leal, PT - 05/15/2023 12:53 PM EDT Physical Therapy Contact Note Attempted to visit patient for follow up physical therapy and progression of functional mobility, however per RN patient with multiple episodes of pauses in sinus rhythm - now transitioned to DNR/DNI. Remains agitated and not appropriate for PT interventions this date. Will continue to follow up as appropriate and able during hospital course. Please page with any questions or concerns. Jamaica Leal PT, DPT Pager: [phone] 05/15/23 Inpatient Rehabilitation Department * Tiarra Vasquez SLP - 05/15/2023 11:39 AM EDT Speech Pathology Contact Note Chart reviewed. Patient had two periods of asystole overnight and is now DNR/DNI. Palliative Care has been consulted and plans to speak with patient's today. Deferred TREASURY CONSULTANT intervention per discussion with RN. Patient remains scheduled for an MBS tomorrow at 3:30pm; we will keep this appointmentfor now and continue to monitor for changes in status. Please secure chat with questions, thanks! Tiarra Vasquez, MS, CCC-TREASURY CONSULTANT Speech-Language Pathologist Inpatient Rehabilitation Pager # [phone] * Eugenia Andrade APRN - 05/15/2023 11:00 AM EDT Palliative Care Consult Received. I met briefly with , Tete. Full consult note to follow. In brief, Myla Acosta is a 67 year old man who has not sought much medical care and who presented 27 days ago initially with a right cerebellar IPH. Subsequent imaging studies revealed a right cerebellar IPH with ANIL. He is s/p EVD and a course complicated by a incidental finding of a large typeB Aortic dissection, intractable HTN requiring multiple oral and IV medications and agitated delirium. He has an NG in for feeding and meds and pulled this out recently, now in restraints as he has been aggressive as well. We are asked to meet with his as she is expressing concerns that Myla may not want ongoing aggressive care. I met with his and we discussed Myla as a person. Myla did not seek medical care and was a tough matthew. Myla is a strong and a very intelligent man. He did have a significant alcohol abuse history as well. They have 3 adult children and the 2 oldest are local and close with Myla and Tete. Tete worries that she didn't advocate for Myla sooner. We discussed how she made the best decisions with the information she had at the time. She feels Myla would not want a prolonged feeding tube or mechanical intubation again. He would not want CPR in the event of an arrest. She wonders about transitioning to a more comfort focused approach. Today, I provided emotional and suggested a family meeting tomorrow with the consulting teams if possible (vascular and cards) and the Neuro Critical Care Team to review expectations. We will try to arrange for . Discussed with NCC Team. Eugenia Andrade APRN * Georges Jacob MD - 05/15/2023 9:28 AM EDT Images from the original note were not included. NEUROCRITICAL CARE PROGRESS NOTE Date of Admission: 04/18/2023 6:34 AM LOS: 27 ICU LOS: 27d 2h 24 Hour Events: Weaned off all AVNB agents due to ~ 10 second pause NTG 200 Active Medications: nitroGLYcerin 200 mcg/min (05/15/23 0913) sodium chloride 3 g Per NG tube TID QUEtiapine 100 mg Per NG tube Nightly spironolactone (Aldactone) 50 mg in sterile water 10 mL custom oral liquid 50 mg Per NG tube Daily insulin lispro 1-4 Units Subcutaneous Q4H [facility] tube feeding diet 230 mL Per NG tube 4 Times Daily simethicone 40 mg Per NG tube 4 Times Daily hydrALAZINE 200 mg Per NG tube Q6H terazosin 1 mg Per NG tube BID cloNIDine 0.3 mg Per NG tube Q8H traMADoL 50 mg Per NG tube Q8H FLUoxetine 20 mg Per NG tube Daily aspirin 81 mg Per NG tube Daily lisinopriL 40 mg Per NG tube Daily ergocalciferoL (vitamin D2) 50,000 Units Per NG tube Weekly heparin (porcine) 5,000 Units Subcutaneous Q8H [facility] camphor-methyl salicyl-menthoL Topical (Top) BID carboxymethylcellulose, hydrALAZINE, glucose 40% oral geL OR dextrose OR glucagon, QUEtiapine, senna-docusate, ipratropium-albuteroL, sodium chloride, oxyCODONE, asyjql-jusntufv-dgljzof DR AND sodium bicarbonate, polyethylene glycoL (MIRALAX) oral powder AND bisacodyL AND bisacodyl EC AND lactulose AND lactulose AND magnesium citrate AND Tap water enema, acetaminophen, potassium chloride ER OR potassium chloride ER, enalaprilat Vitals: Vital Sign Ranges: Last value Range last 24 hrs Temperature Temp: 36.9 ??C (98.5 ??F) Temp: [36.4 ??C (97.6 ??F)-37.7 ??C (99.9 ??F)] Heart Rate Heart Rate: (!) 102 Heart Rate: [39-111] Blood Pressure BP: 139/76 BP: (111-161)/(46-108) Respiratory Rate Resp: 25 Resp: [11-29] SpO2 SpO2: 93 % SpO2: [88 %-97 %] Art BP BP (Arterial Line): 107/51 BP (Arterial Line): -- Intake/Output: I/O 05/11 0705/1201 05/13 0705/13 07 P.O. 120 30 0 I.V. (mL/kg/hr) 1858.3 (0.7) 1151.6 (0.4) 904 (0.3) 870.3 (3.1) Blood 0 NG/GT 275 361 0427 260 Irrigation 120 400 160 Total Intake(mL/kg) 2978.3 (25.9) 2251.6 (19.4) 2064 (17.8) 1130.3 (9.7) Urine (mL/kg/hr) 2075 (0.8) 3135 (1.1) 2835 (1) 175 (0.6) Emesis/NG output 0 0 0 0 Other 0 120 Stool 100 345 0 0 Total Output(mL/kg) 2175 (18.9) 3480 (30) 2835 (24.4) 295 (2.5) Net +803.3 -1228.4 -771 +835.3 Stool Occurrence 0 x Emesis Occurrence 0 x 0 x 0 x 0 x Lines/Drains/Airways: PICC Line 04/20/23 1410 Triple Lumen 5 Fr brachial vein, right (Active) External Catheter Length (cm) 1 05/12/23 1124 Indication/Daily Review of Necessity Medications known to cause phlebitis (vasopressors, concentrated electrolytes, TPN, chemotherapy) 05/15/23 08 Site Preparation/Maintenance dressing: dry and intact 05/15/23799 Dressing change due 05/19/23 05/15/23799 Needleless Connector change due 05/19/23 05/15/23799 Securement catheter stabilization device, secured with 05/15/23799 Distal (Foster) Patency/Maintenance needleless connector changed 05/15/23 0200 Medial (White) Patency/Maintenance needleless connector changed 05/15/23 0200 Proximal (Red) Patency/Maintenance needleless connector changed 05/15/23 0200 Phlebitis 0-->no symptoms 05/15/23799 Infiltration 0-->no symptoms 05/15/23799 Site Signs/Symptoms no redness;no swelling;no warmth;no pain 05/14/23 2000 Arm Circumference [place] Between Insertion & Axilla (cm) 35 05/12/23 1124 Interventions other (see comments) 05/01/23 0916 Rectal Tube 05/10/23 1430 fecal management system (Active) Balloon Inflation Volume (mL) 45 05/15/23 08 Reposition taped to right buttock 05/15/23799 Outcome gas expelled 05/15/23799 Tolerance no signs/symptoms of discomfort 05/15/23799 Irrigation/Flush (mL) 0 (mL) 05/14/23 1202 Stool Output (mL) 0 05/15/23799 Net Rectal Tube Output (mL) 0 05/14/23 1202 Urethral Catheter 04/24/23 1401 (Active) Indication/Necessity Q1-2hr UOP in ICU patient without alternative 05/15/23 08 Securement secured to upper leg with adhesive device 05/15/23799 Maintenance Closed system maintained;Collection bag maintained below the bladder;Catheter secured to leg;Urine flow is unobstructed;Hand hygiene performed before and after touching catheter and collection system;Collection bag emptied when half full or at least every 4 hours using a separate container for this patient, drainage spigot not allowed to touch container 05/15/23799 Foreskin circumcised 05/14/23 08 Tolerance no signs/symptoms of discomfort 05/15/23 0000 Urine Characteristics yellow 05/15/23799 Irrigation/Flush (mL) 0 (mL) 05/12/23 1800 Urine Output (mL) 175 05/15/23 08 Net Catheter Output (mL) 150 (mL) 05/12/23 1800 Naso/Oral Tube 05/14/23 1720 right nostril (Active) Tube Advanced (cm) 65 05/15/23799 Placement Check Methods x-ray confirmation;distal length tube measured 05/15/23799 Catheter Depth (cm) 65 cm 05/15/23 0400 Tolerance no adverse signs/symptoms 05/15/23799 Securement taped to nostril center 05/15/23 0800 Clamp Status/Tolerance clamped;no abdominal discomfort;no abdominal distention 05/15/23 040 Flush/Irrigation flushed with;water 05/15/23 0400 Irrigation/Flush (mL) 40 (mL) 05/15/23 0400 Tube Intake (mL) 30 05/15/23 0800 General Output (mL) 120 05/15/23 0800 Net Naso/Oral Volume (mL) -90 (mL) 05/15/23 08 Pressure Injury 05/02/23 other (see comments) Stage 1 (Active) Dressing Appearance dry;intact 05/15/23 08 Pressure Injury Appearance dressing in place 05/14/23 0730 Area dry 05/11/231999 Wound Length (cm) 0.9 cm 05/09/23 145 Wound Width (cm) 0.6 cm 05/09/231458 Wound Surface Area (cm^2) 0.54 cm^2 05/09/23 1459 Edges fixed 05/11/231999 Stage Stage 2 05/09/23 1459 Drainage Amount none 05/15/23 0000 Wound Cleaning cleansed with;sterile normal saline 05/10/23 1300 Wound Interventions Dressing changed 05/10/23 1300 Dressing foam 05/15/23 0800 Output (mL) 0 05/10/23 08 Wound Image 05/09/23 1459 Pressure Injury 05/09/23 other (see comments) suspected deep tissue injury (Active) Dressing Appearance dry;intact 05/15/23 08 Pressure Injury Appearance dressing in place 05/14/23 0730 Area dry 05/12/231999 Stage suspected deep tissue injury 05/09/23 1458 Drainage Amount none 05/15/23 0000 Dressing foam 05/15/23 0800 Wound Image 05/09/23 1458 Labs: No results found for: PHART, PO2ART, [id number] Recent Labs 05/15/23 0035 WBC 7.6 RBC 3.03* HGB 9.4* HCT 29.2* MCV 96.4* MCH 31.0 MCHC 32.2 PLATELET 206 RDWCV 14.6* Recent Labs 05/15/23 0035 NA 141 K 4.3 CL 103 CO2 29 BUN 25* CREATININE 1.16 GLUCOSE 132 Imaging: Physical Exam: Mild agitation/moderate delirium CTAB RRR no mgr appreciated FC x 4 ASSESSMENT & PLAN: 67M R cerebellar hemorrhage with IVH and Type B aortic dissection Neuro: cerebellar hemorrhage s/p EVD CV: Type B aortic dissection - HR <70 - holding coreg and dilt per cards recs for ~ 10 second pauses (some of which have had situational vagal triggers) - SBP < 120 - con't lisinopril, aldactone 50, 40 hydral 200 q6h, clonidine 0.3 q8h, max nitro gtt - cleviprex prn - vascular surgery following, 3 month followup imaging ordered by vascular - ASA - con't seroquel / fluoxetine Pulm: no acute FEN/Renal: - TF - rebolledo for retention 04/23, voiding trial when hemodynamics stabilized GI: no acute ID: no acute Endo: no acute Heme: no acute PPx: SQH Tubes/Lines/Drains: PICC 04/19 Code Status: DNR/DNI per discussion with - palliative consult per discussion with Dispo: ICU for hemodynamic management //////////////////////////////////////////////////////////////////////////////// //// Attestation: IS PATIENT CRITICALLY ILL ? Is there a high potential of sudden, clinically significant, or life threatening deterioration? YES Is there a need for direct personal assessment and management to treat/prevent multiple vital organfailure/deterioration? YES If this patient is not critically ill, the reason for continued hospitalization is n/a. PATIENT IS CRITICALLY ILL WITH THESE DIAGNOSES BEING MANAGED BY CCS TEAM: Type B aortic dissection Hypertension Cerebellar hemorrhage ICU delirium I personally performed 35 minutes of aggregate critical care time exclusive of procedures and teaching. This includes time spent during direct patient evaluation and reassessment, interpreting diagnostic tests, directing life and/or organ supporting interventions and documentation on the unit. * Edis Skaggs MD - 05/14/2023 9:19 AM EDT STAFF PROGRESS NOTE Neurocritical Care Author: EDIS SKAGGS MD Patient seen and examined on neurocritical care rounds. Myla 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 male with the following active issues:: 04/18/23: cerebellar hemorrhage and Type B aortic dissection; respiratory failure resulting in intubation and EVD placement 04/19/23; extubation 04/20/23: reintubation 04/22/23: extubation 04/27/23: reintubation 04/30/23: VAP 05/03/23: EVD removed 05/05/23: extubation ASSESSMENT, MANAGEMENT, and DECISION MAKING: Neuro: PBD 26; delirium continues to be challenging received scheduled seroquel Hemodynamics: SBP goal being met but has had some episodes of bradycardia; cardilogy input appreciated; will hold diltiazem and increase spirololactone; remains on NTG; coreg lisinopril, terazosin, hyralalizine, clonidine Pulmonary: 1L by NC with satisfactory saturation Renal: Na+ 139, Cr stable, net diuresis 2L yesterday GI: TF and sips and chips Heme: SQ heparin Endo:glucose control acceptable ID: no issues EXAM: Physical Exam Awake, says a few words, follows some commands Lungs: clear anteriorly Heart: RRR Abdomen: soft Ext: mild edema Last value Range last 24 hrs Temperature Temp: 36.4 ??C (97.5 ??F) Temp: [36.2 ??C (97.2 ??F)-37.2 ??C (98.9 ??F)] Heart Rate Heart Rate: 62 Heart Rate: [42-87] Blood Pressure BP: 113/65 BP: (98-166)/(39-143) Respiratory Rate Resp: 23 Resp: [12-30] SpO2 SpO2: 93 % SpO2: [92 %-98 %] Art BP BP (Arterial Line): 107/51 BP (Arterial Line): -- Last Ht 04/18/23 174 cm (5' 8.5) Last Wt 05/14/23 116 kg (255 lb 11.7 oz) Body mass index is 38.31 kg/m??. IS PATIENT CRITICALLY ILL ? Is there a high potential of sudden, clinically significant, or life threatening deterioration? No Is there a need for direct personal assessment and management to treat/prevent multiple vital organfailure/deterioration? No EDIS SKAGGS MD 05/14/2023 * Steve Gurrola, RN - 05/13/2023 7:39 PM EDT Pt lethargic most of day. When awake confused, not combative. Reoriented as needed. Able to wean cleviprex off, nitro remains on. Weaned to 2L NC. NAD noted. * Edis Skaggs MD - 05/13/2023 9:49 AM EDT STAFF PROGRESS NOTE Neurocritical Care Author: EDIS SKAGGS MD Patient seen and examined on neurocritical care rounds. Myla 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 male with the following active issues:: 04/18/23: cerebellar hemorrhage and Type B aortic dissection; respiratory failure resulting in intubation and EVD placement 04/19/23; extubation 04/20/23: reintubation 04/22/23: extubation 04/27/23: reintubation 04/30/23: VAP 05/03/23: EVD removed 05/05/23: extubation ASSESSMENT, MANAGEMENT, and DECISION MAKING: Neuro: agitation problematic again and seroquel increased Hemodynamics: cardiology input appreciated plan to increase spironolactone dose; requiring cleviprex and NTG infusions; will ask cardiology to review metanephrine results Pulmonary: 3L by NC and not required CPAP Renal:Cr stable, Na+ 137 Heme:SQ heparin and SCD's Endo:glucose control acceptable ID: no issues EXAM: Physical Exam Eyes open, intermittently fixes gaze, says a few words, inconsistently follows commands Lungs: coarse breath sounds Heart: RRR Abdomen: soft Last value Range last 24 hrs Temperature Temp: 37.2 ??C (98.9 ??F) Temp: [36.6 ??C (97.8 ??F)-37.3 ??C (99.2 ??F)] Heart Rate Heart Rate: 64 Heart Rate: [58-88] Blood Pressure BP: 133/60 BP: (105-166)/(42-88) Respiratory Rate Resp: 16 Resp: [16-29] SpO2 SpO2: 93 % SpO2: [93 %-97 %] Art BP BP (Arterial Line): 107/51 BP (Arterial Line): -- Last Ht 04/18/23 174 cm (5' 8.5) Last Wt 05/12/23 114.8 kg (253 lb 1.4 oz) Body mass index is 37.92 kg/m??. IS PATIENT CRITICALLY ILL ? Is there a high potential of sudden, clinically significant, or life threatening deterioration? No Is there a need for direct personal assessment and management to treat/prevent multiple vital organfailure/deterioration? No EDIS SKAGGS MD 05/13/2023 * Franchesca Osorio RN - 05/13/2023 1:24 AM EDT OUTCOME EVALUATION NOTE: OUTCOME SUMMARY: Received patient awake and restless, oriented to self, disoriented to place, date/time and situation. Noted with visual and auditory hallucinations. B/L mittens in place. As the night progressed, patient became more delirious and hallucinating, attempting to hit RN and kicking, talking to someone not present in room. Patient was reoriented. B/L wrist restraints applied. PRN haldol and scheduled nightly Seroquel dose administered, with minimal to no effect. Safety maintained. Blood pressure elevated- Titrated Clevidipine and Nitro drip to max dose with PRN BP meds(refer to APR). PLAN MOVING FORWARD: Neuro Checks Q shift V/S Q1H I&O Q 4H Accuchecks Q4H SBP goal <140 HR goal <80 INDIVIDUALIZED FALL PREVENTION INTERVENTIONS: Patient-specific fall risk factors per assessment: [current deficits]: Cognitively impaired. Poor safety awareness Assistance [level of assistance required for transfers and ambulation]: Dependent Supervision [direct monitoring required during toileting and ADLs]: Direct supervision Surveillance [continuous indirect monitoring]: ICU monitoring Patient-specific fall prevention interventions for sensory deficits provided, if applicable: [X] N/A * Tiarra Vasquez SLP - 05/12/2023 9:57 AM EDT Speech Therapy Note Patient Profile: Myla 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 He was intubated at OSH for airway protection given worsening somnolence and transferred to [facility] on 04/18/2023. Hospital course has been complicated by hypoxic respiratory failure requiring multiple intubations (04/17-04/18, 04/18-04/21, 04/26-05/04; 12 days total). TREASURY CONSULTANT has been following since 04/23 for cognition and dysphagia management. Interval History: Mentation improved Recent Imaging: No new imaging on file. Subjective: Patient was awake and sluggish but cooperative with care. Objective: Patient seen for dysphagia management and demonstrated the following: Pain: Discomfort with NGT movement Respiratory Status: Nasal canula 3 L/min, satting 93-95% Current Diet: Sips and Chips (Give Meds) Feeding / Oral Care Status: Patient requires cues and/or assistance due to a combination of post-stroke weakness, generalized deconditioning, and altered mental status. Today, he brushed his teeth and self-administered approximately 50% of trials with uplc-oypaw-vtrb assistance. Cognitive-Linguistic Status: Awake and alert Sluggish verbal and motor responses Responding to simple questions appropriately Following simple commands Positioning: HOB at 50 degrees Oral Motor Examination: No significant changes Bolus Presentations: Ice chips x1 Water via straw x5 Ice cream via tsp x4 Oral Preparatory Phase Mastication: N/A Oral transit: Sluggish and disorganized; brief oral holding with liquids Bolus cohesion: Suspect reduced Oral containment: Complete, no anterior loss Oral stasis: None with small volumes Pharyngeal Phase Swallow initiation: Sluggish Vocal quality change: None Cough / throat clear: Intermittent throat clearing after large sips of water Pt complaint of food getting stuck: None Fatigue across trials: Yes, benefited from rest breaks Respiratory rate and respiratory swallow pattern: Shortness of breath and intermittent bradycardia post-swallow Esophageal Observations Intermittent belching post-trials Education: Discussed patient status and recommendations, including frequent practice with ice chipsand small sips of water while awake as well as the need for a modified barium swallow to more objectively characterize post-stroke swallow function and inform further recommendations. Patient's asking about timeline for NGT removal; advised her that we would need to see more consistent wakefulness and engagement along with improvements in swallow function prior to discontinuing enteral nutrition. Patient status and swallow recommendations were discussed with nursing and the primary team. Assessment: Myla was seen today for dysphagia management. He demonstrated interval improvements inmentation from previous observations, maintaining adequate arousal to participate in a 25-minute session with minimal cues. He responded to simple questions and followed simple commands appropriately. Myla completed PO trials of ice chips, water, and ice cream. His swallow was sluggish with intermittent signs of aspiration (increased shortness of breath, intermittent throat clearing) when takinglarge sips of water. He seemed to tolerate ice chips and ice cream well from a respiratory standpoint. Myla presented with decreased activity tolerance and benefited from frequent rest breaks between trials to mitigate fatigue and shortness of breath. Suspect dysphagia is multifactorial in the setting of post-stroke weakness, generalized deconditioning, altered mental status, and potentially delirium, and will likely continue to evolve with progression of neurological symptoms. We have scheduled a modified barium swallow for 05/15 at 3:30pm to more objectively characterize swallow function and inform further recommendations. In the meantime, given improvements in mentation, recommend starting sips and chips for practice when patient is alert and accepting. Continue frequent oral care (at least 2x/daily) to reduce risk of developing aspiration pneumonia. We will continue to follow. Diagnosis: Oral and suspected pharyngeal dysphagia 2/2 post-stroke weakness, generalized deconditioning, and altered mental status Recommendations: Diet: Sips and chips PO Medications: IV or other alternative means only Aspiration Precautions: Sit upright for all PO intake Slow rate; single ice chips and small sips of water Excellent oral care to reduce risk of aspiration pneumonia Delirium Precautions: Orientation: Provide visual and hearing aids Utilize cues such as calendars and clocks Encourage communication and reorient patient repeatedly Have familiar objects from patient's home in room Attempt consistency in nursing staff Allow television during the day with daily news Environment: Sleep hygiene (dim light at nighttime, bright during the day) Limit excess noise (staff, equipment, visitors at night) Ambulate or mobilize patient early and often Speech Therapy Goals: Pt will tolerate least restrictive diet without further respiratory decompensation. Caregiver will be independent with aspiration precautions. Pt will maintain hydration / nutrition with optimal safety and efficiency. Caregiver will follow anti-delirium precautions with assist from staff as needed. Plan: Therapy Frequency (TREASURY CONSULTANT Eval): 3-5 times/wk Patient's is in agreement with the plan of care. Total Minutes (Speech Language Pathology): 25 Tiarra Vasquez MS, CCC-TREASURY CONSULTANT Speech-Language Pathologist Inpatient Rehabilitation Pager # [phone] * Unique Mcghee, RD - 05/12/2023 8:59 AM EDT Nutrition Progress Note Myla 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 male with unknown pmhx (no PCP or listed medications) who presents asa transfer from an OSH for evaluation of a right cerebellar IPH. Now s/p R EVD placement 04/17 givenhydrocephalus. Reason for Assessment: ICU Tube Feeding, Follow-up Nutrition Recommendations: Sips/chips per TREASURY CONSULTANT recs 4/5 If anticipate pt will require nutrition support for >4 weeks consider longer term enteral access Continue Nutren 2.0 with a goal of 230 mL x 4 daily Monitor hydration status on above TFs as they are concentrated. Pt may need additional fluids depending on IVFs, med flushes, p.o. Intake, etc. Mg and phos with daily labs Monitor BM - goal of 1 [id number] while on TF Monitor BG - goal of 140-180 Daily weights I was able to discuss plan with provider [place] [id number] team . Current Nutrition Regimen: Active Orders Diet NPO diet (Give Meds) Frequency: Effective Now Number of Occurrences: Until Specified All Active TF Orders: Nutren 2.0 with a goal of 230 mL x 4 daily At goal, this will provide 920 mL formula, 1840 calories, 77 grams protein, 637 mL water from formula, and 100% of the RDI's for vitamin and minerals. Average tube feeding provision over the past 2 days; 3.5 bolus vs daily goal volume of 4 bolus (88%of goal) Tolerance or barriers to meeting needs: tolerating so far Assessment: Lab Results Component Value Date NA 140 05/12/2023 K 4.2 05/12/2023 CL 104 05/12/2023 CO2 27 05/12/2023 BUN 22 (H) 05/12/2023 CREATININE 1.48 05/12/2023 ESTGFR 52 (L) 05/12/2023 MAGNESIUM 1.04 05/12/2023 CALCIUM 9.4 05/12/2023 PHOS 3.5 05/12/2023 AST 26 04/28/2023 ALT 38 04/28/2023 ALKPHOS 61 04/28/2023 BILITOT 0.5 04/28/2023 BILIDIR 0.3 04/28/2023 TRIG 194 05/07/2023 HA1C 6.0 (H) 04/19/2023 25OHVITD 13 (L) 04/29/2023 IRON 25 (L) 04/29/2023 Lab Results Component Value Date POCGLU 133 05/12/2023 POCGLU 106 05/12/2023 POCGLU 121 05/12/2023 POCGLU 122 05/11/2023 POCGLU 116 05/11/2023 POCGLU 136 05/11/2023 Patient Lines/Drains/Airways Status Active Nutritional LDAs Name Placement date Placement time Site Days Naso/Oral Tube 05/06/23 0318 Falun sump right nostril 05/06/23 0318 right nostril 6 PICC Line 04/20/23 1410 Triple Lumen 5 Fr brachial vein, right 04/20/23 1410 -- 22 Rectal Tube 05/10/23 1430 fecal management system 05/10/23 1430 -- 2 Urethral Catheter 04/24/23 1401 04/24/23 1401 -- 18 Pressure Injury 05/02/23 other (see comments) Stage 1 05/02/23 -- -- 10 Pressure Injury 05/09/23 other (see comments) suspected deep tissue injury 05/09/23 -- -- 3 Oxygen Therapy / Airway Device: Nasal cannula Shift Pressure Injury Prevention Occiput: No Injury Thoracic Spine: No Injury Sacral: No Injury Ischial - left: No Injury Ischial - right: No Injury Heel - left: No Injury Heel - right: No Injury Elbow - left: No Injury Elbow - right: No Injury Device Sites: BP Cuff, ECG Leads, flexiseal, rebolledo, IV sites, O2 sat monitor, oxygen tubing, SCD's / venodynes Other Sites: ID Bands, NGT Last Bowel Movement: 05/11/23 Intake/Output Summary (Last 24 hours) at 05/12/2023 0859 Last data filed at 05/12/2023 0603 Gross per 24 hour Intake 3032 ml Output 5305 ml Net -2273 ml Relevant medications: vitamin D2, lispro (not requiring), simethicone Anthropometrics: Admit Weight: 111.8 kg Estimated body mass index is 37.92 kg/m?? as calculated from the following: Height as of this encounter: 174 cm (5' 8.5). Weight as of this encounter: 114.8 kg (253 lb 1.4 oz). [place] Body Weight (IBW) (kg): 71.37 Wt Readings from Last 10 Encounters: 05/12/23 114.8 kg (253 lb 1.4 oz) Patient Vitals for the past 168 hrs: Weight 05/12/23 0600 114.8 kg (253 lb 1.4 oz) 05/11/23 0600 116.1 kg (255 lb 15.3 oz) 05/10/23 0600 118.9 kg (262 lb 2 oz) 05/09/23 0600 117 kg (257 lb 15 oz) 05/08/23 0542 117.1 kg (258 lb 2.5 oz) 05/07/23 1650 116.4 kg (256 lb 9.9 oz) Weight Source: Bed Estimated / Assessed Needs: Fluid Requirements: Estimated Fluid Requirement Method: Weight Based Method Weight Based Method: 30 Weight Based Calculation: 2142 mL Metabolic cart study: 1820 kcals Kcal / K - 1785 Kcal (20 Kcal/Kg - 25 Kcal/Kg) Estimated Protein Needs: 86 g - 107 g (1.2 g/Kg - 1.5 g/Kg) Nutrition intake and intake history / interview: 05/11: TF at goal. Na wnl today. Continues NPO per TREASURY CONSULTANT recs, has been on TF since 04/18 and has [place] sump in place. 05/09: TF now at goal. Hyponatremic today and volume status trending down. Team requesting to switch to more concentrated TF formula. 05/07: TF switched to trickle today. Per team, c/f aspiration with pt sliding down in bed - requesting to trial intermittent TF. Will increase kcal from TF now that propofol d/c. 05/04: Propofol off. TF at goal. Hyponatremic. Extubated again today. 05/02: Propofol rate decreasing, will increase kcal from TF. 04/30: TF on MAR hold. Propofol went up quite a bit. 04/27: Extubated and re-intubated. TF presently off. On small amt of propofol and javon. Multiple BM yesterday. Lasix drip. GFR <60. Met cart study 1820 kcals. 04/25: TF was off/on hold this morning due to TF formula not being available per flowsheet - checkedunit storage - plenty of Pep AF in top drawer. Pt back from CT scan and TF reportedly restarted. NoBM since 04/21. Phos and Na slightly low. 04/23: Consulted again for TF. Prior goal remains appropriate for now - advance to goal. Off propofol. Has small bore feeding tube. Needs to move bowels. NPO per TREASURY CONSULTANT. 04/19: Re-intubated. TF at 25 mL/hr today. On low dose propofol. No BM this admission. 04/17: Consulted for TF recommendations. May extubate tomorrow. On some propofol. On alcohol withdrawal protocol - thiamine, folic acid and Thera M ordered. Nutrition Focused Physical Exam: Not performed Reason NFPE Not Performed: Not indicated. Malnutrition Diagnosis: Not identified (BETHANY Hagen J Parenteral Enteral Nutr. 2011; 36(3): 273-83) Nutrition to continue to follow up while inpatient Thank you, Unique Mcghee, MS, RD, CNSC, LD Clinical Nutrition * Edis Skaggs MD - 05/12/2023 8:55 AM EDT STAFF PROGRESS NOTE Neurocritical Care Author: EDIS SKAGGS MD Patient seen and examined on neurocritical care rounds. Myla 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 male with the following active issues:: 04/18/23: cerebellar hemorrhage and Type B aortic dissection; respiratory failure resulting in intubation and EVD placement 04/19/23; extubation 04/20/23: reintubation 04/22/23: extubation 04/27/23: reintubation 04/30/23: VAP 05/03/23: EVD removed 05/05/23: extubation ASSESSMENT, MANAGEMENT, and DECISION MAKING: Neuro: delirium is improving on scheduled seroquel and haldol prn Hemodynamics: was off NTG overnight but needed to be restarted this AM; remains on hydralazine, coreg, terazosin, clonidine, diltiazem, spironolactone, lisinopril Pulmonary: 3L by NC with stable saturations Renal: Cr stable; net diuresis 3L/24 GI: TF Heme: SQ heparin Endo: glucose control acceptable ID: no issues EXAM: Physical Exam Eyes open, fixes gaze, says a few words, follows simple commands Lungs: coarse breath sounds Heart: RRR Abdomen: soft Ext: mild edema Last value Range last 24 hrs Temperature Temp: 37.2 ??C (98.9 ??F) Temp: [37 ??C (98.6 ??F)-37.3 ??C (99.2 ??F)] Heart Rate Heart Rate: 52 Heart Rate: [52-83] Blood Pressure BP: 162/76 BP: (99-169)/(53-111) Respiratory Rate Resp: 19 Resp: [16-27] SpO2 SpO2: 95 % SpO2: [88 %-97 %] Art BP BP (Arterial Line): 107/51 BP (Arterial Line): -- Last Ht 04/18/23 174 cm (5' 8.5) Last Wt 05/12/23 114.8 kg (253 lb 1.4 oz) Body mass index is 37.92 kg/m??. IS PATIENT CRITICALLY ILL ? Is there a high potential of sudden, clinically significant, or life threatening deterioration? No Is there a need for direct personal assessment and management to treat/prevent multiple vital organfailure/deterioration? Yes EDIS SKAGGS MD 05/12/2023 * Franchesca Sheehan RN - 05/12/2023 6:30 AM EDT OUTCOME EVALUATION NOTE: OUTCOME SUMMARY: Oriented to person and place at best. Progressed to oriented to self only overnight. Intermittent delirium and hallucinations (reaching for things not present). Appropriately redirectable to situation and maintained safety through the night w/o restraints. Patient's , son and daughter were called and were able to speak with the patient prior to bed. PRN dose of Seroquel x2 administered. Nitroinfusion titrated to off over the shift with intermittent PRNs necessary. Flexiseal, rebolledo, PICC and NGT remain in place. 2 episodes of arrhythmias at the start of the shift with self resolution. Patient complained of a feeling of going to pass out. Vitals signs assessed and stable. No loss of consciousness. OvernightAPRN notified, serum magnesium checked, replacements administered. No further episodes occurred. PLAN MOVING FORWARD: Q shift neuro exam Heart rate <80 SBP <140 Ongoing fluid diuresis by primary team INDIVIDUALIZED FALL PREVENTION INTERVENTIONS: Patient-specific fall risk factors per assessment: [current deficits]: delirium, generalized weakness, lack of safety awareness at times Assistance [level of assistance required for transfers and ambulation]: 2 person assist with turning/repositioning Supervision [direct monitoring required during toileting and ADLs]: Full supervision required for patient activities Surveillance [continuous indirect monitoring]: ICU level monitoring Patient-specific fall prevention interventions for sensory deficits provided, if applicable: [X] Yes CPG GOAL OUTCOME EVALUATION: See documented care plan * Steve Gurrola RN - 05/11/2023 6:15 PM EDT OUTCOME EVALUATION NOTE: OUTCOME SUMMARY: Pt received somnolent and oriented only to self. Awoke in the afternoon, remains confused but calm s/p one prn dose of Seroquel for restlessness and attempting to pull lines out. Spoke with on phone. Able to wean down Nitro to off but had to restart for HTN when patient awake. Denying pain andcalm. Team aware and PRNs given as well. PLAN MOVING FORWARD: Q Shift Neuro SBP <140 Wean gtts as tolerated. Promote sleep Seroquel prn for agitation * Tiarra Vasquez TREASURY CONSULTANT - 05/11/2023 1:46 PM EDT Speech Pathology Contact Note Chart reviewed. Attempted to see patient for cognition and dysphagia management; however, he was too lethargic to participate. We will continue to follow. Please secure chat with questions, thanks! Tiarra Vasquez, MS, [facility]TREASURY CONSULTANT Speech-Language Pathologist Inpatient Rehabilitation Pager # [phone] * Edis Skaggs MD - 05/11/2023 10:07 AM EDT STAFF PROGRESS NOTE Critical Care Medicine Author: EDIS SKAGGS MD Patient seen and examined on critical care rounds. Myla 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 male with the following active issues:: 04/18/23: cerebellar hemorrhage and Type B aortic dissection; respiratory failure resulting in intubation and EVD placement 04/19/23; extubation 04/20/23: reintubation 04/22/23: extubation 04/27/23: reintubation 04/30/23: VAP 05/03/23: EVD removed 05/05/23: extubation ASSESSMENT, MANAGEMENT, and DECISION MAKING: Neuro: agitation and delirium seems better Hemodynamics: self-limited brief run of wide complex tachycardia overnight; will check troponins; new SBP goal of <140; weaned off clevidipine, NTG decreasing dose; remains on spironolactone, terazosin, diltiazem, coreg, lisinopril, hydralazine, clonidine Pulmonary: 3L by NC Renal: Cr stable,will aim for ~1L diuresis per day with lasix GI: TF Heme: SQ heparin Endo: glucose control acceptable ID: no issues EXAM: Physical Exam Eyes closed, attempts to open to voice, says a few words and follows some simple commands, pupils reactive Lungs: coarse breath sounds Heart: RRR Abdomen: soft Ext: mild edems Last value Range last 24 hrs Temperature Temp: 37.2 ??C (99 ??F) Temp: [36.6 ??C (97.9 ??F)-37.2 ??C (99 ??F)] Heart Rate Heart Rate: 57 Heart Rate: [57-87] Blood Pressure BP: 108/55 BP: (88-172)/(50-142) Respiratory Rate Resp: 17 Resp: [14-33] SpO2 SpO2: 98 % SpO2: [91 %-99 %] Art BP BP (Arterial Line): 107/51 BP (Arterial Line): -- Last Ht 04/18/23 174 cm (5' 8.5) Last Wt 05/11/23 116.1 kg (255 lb 15.3 oz) Body mass index is 38.35 kg/m??. IS PATIENT CRITICALLY ILL ? Is there a high potential of sudden, clinically significant, or life threatening deterioration? Yes Is there a need for direct personal assessment and management to treat/prevent multiple vital organfailure/deterioration? Yes PATIENT IS CRITICALLY ILL WITH THESE DIAGNOSES BEING MANAGED BY CCS TEAM: Aortic dissection with hypertension I personally performed 30 minutes of aggregate critical care time exclusive of procedures and teaching. This includes time spent during direct patient evaluation and reassessment, interpreting diagnostic tests, directing life and/or organ supporting interventions and documentation on the unit. EDIS SKAGGS MD 05/11/2023 * Sanjay Arvizu RN - 05/11/2023 3:47 AM EDT 05/11/23 0335 Vital Signs Heart Rate from SpO2 76 bpm Heart Rate 74 BP 109/80 MAP (NBP) 90 mmHg Resp 21 SpO2 99 % Notified ZEESHAN [place], of run of VT. Pt recovered independently, no neuro change. Electrolyte replacement to be ordered. BP stable, no hemodynamic instabilities. * [place] Leal, PT - 05/10/2023 3:10 PM EDT Physical Therapy Intervention Note Treatment Number PT: 4 Total duration of encounter: 22 days Patient profile: Myla Acosta is a 67 year old male with unknown pmhx (per chart review, does notappear to have a PCP or follow up within the [facility] system) who presents as a transfer from an OSH for evaluation of a right cerebellar IPH. Per report, LKN was 04/17/23 at 2100, he woke up c/o vertigo and nausea/vomiting. Subsequent imaging studies revealed a right cerebellar IPH with ANIL. Initial Bps were noted to be in the 200s. Was started on a nicard gtt for BP control. Was subsequently intubated at the OSH for airway protection given worsening somnolence. Presented to [facility] where he was intubated. Brainstem reflexes were preserved. Decision was made to place EVD with NSG. Imaging of carotids and [place] of [place] reveal unexpected finding of type B aortic dissection. CTACA with type B dissection extending from subclav to external iliac. Vascular surgery was consulted.Pt was extubated on 04/23, but has been on the CIWA protocol. 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 Vascular surgery was consulted and patient remained under strict BP and HR paraemters (SBP <120, HR <60) -Patient was started on aspirin -Due to difficulty controlling BP nephrology was consulted and patient was started on labetalol, hydralazine, clonidine, lisinopril diltiazem, terazosin, and still required clevidipine gtt and nitro.Urine metanephrines sent abnd pending -Patient had been extubated on 04/18 but required reintubation after a hypoxic event and AMS. He wasextubated on 05/04 to 4L NC and remained on CPAP 24-hour Events: -HR goal liberalized to <140 SBP Social History: Patient lives with spouse in a [place] level home, [address]. Walk in shower with Gbs. Spouse works fulltime. 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 Normally independent. Bilateral hip OA/pain but no device used normally. Independent ADLs and shared IADLs Precautions/Special Considerations: HOB > 30 deg, SBP <140, HR <80, rebolledo catheter, new flexi seal, PICC, DHT, NPO diet, goal spO2 >92%, supplemental O2 via NC Mobility and Positioning Recommendations: Pt. to utilize bed/chair positioning with nursing. Please encourage up to chair for meal times as able. EPM Level 2: Bed-Chair position, Mechanically lift to chair, Participate in self care Subjective: ???just leave it be, let me sit?? Objective: Pt seen for physical therapy treatment today and presented as follows: Pain: No pain endorsed throughout session - generally uncomfortable and restless Vital Signs: At Rest With Activity SpO2 (3LNC) 96% 95% BP (MAP) Lower leg 131/54 (79)mmHg 160s SBP mmHg RN aware and present to re-assess and medicate HR 70sbpm 80sbpm Behavior / Mood: alert, confused, impaired task initiation, irritable, combative, oppositional, Oriented to: person. Unable/unwilling to answer further orientation questions Follows commands: 1 step and <25% of the time, needs repeated verbal and tactile cuing, visual cues helpful Attention: difficulty attending to task/directions, verbal and tactile cuing Safety awareness: impulsive and bilateral wrist and mitt restraints. Constantly attempting to get restraints off and pull at lines/tubes, combative. Agitated RASS: +1/+2 CAM: N/A Communication: verbal, garbled/mumbled speech at times Vision: glasses worn, appears to have double vision, previous session unable to read whiteboard or correctly state number of fingers (stated double the amount at times). Able to determine color of gloves etc accurately Skin: intact but at risk for breakdown Musculoskeletal: ROM: full AROM and PROM appreciated UE and LE based on observation Sensation: AVI Tone: normal Strength: very strong 5/5 bilateral UE attempting to remove restraints and lines/tubes, highly resistance, bilateral LE at least 3/5 Coordination: N/A this date Bed Mobility: Supine to Sit: dependent via mechanical lift up to chair Sit to Supine: N/A Other: rolled bilaterally for incontinence care, changing linen, placing lift pad, and assisting RNto place rectal tube, with x2 Max A due to agitation, mild combativeness and decr ability to followcommands Transfers: Sit to Stand: unable Stand to Sit: unable Bed to Chair: dependent with mechanical lift full body sling. Other: N/A Gait: AVI Stairs: AVI Balance: Sitting Static: poor - unable to maintain midline posture in bed or chair without external supports Sitting Dynamic: AVI Standing Static: AVI Standing Dynamic / Gait: AVI Education: patient educated on role of PT, orientation, participation, safety, bed mobility and plan of care, with guarded understanding/demonstration. Patient status, treatment, and mobility recommendations discussed with nursing. Pt left seated in bedside recliner chair, with all needs met, with call hurley in reach, with chair alarm active, restraints re-secured, and with family at the bedside following visit. Team Communication: communication with nursing staff pre/post session regarding readiness and response to therapy intervention. Assessment: Myla Acosta was seen today for physical therapy intervention. Pt much more agitated and irritable this date. Reduced ability to follow commands and worsened safety awareness/insight.Pt quite oppositional, making for a challenging therapy session. Overall, assisted in bed mobility,hygiene, and use of mechanical lift to mobilize out of bed. BP continues to be elevated at rest andwith movement intermittently, requiring medication management. Anticipate once cognitively improved, pt mobility will also improve due to current high levels of strength appreciated. Still, expect impaired coordination, balance, and gait due to cerebellar injury. Unfortunately, based on today's session, do not expect pt will be able to tolerate acute level of therapy. Current trajectory is for [facility] subacute rehab facility. Pt will benefit from skilled therapy services throughout hospitalization to promote safety, independence, and provide developmental support/caregiver education. Discharge Recommendations: Based on the current findings, Anticipated Discharge Disposition (PT): detention facility, swing bed rehabilitation facility when medically ready for hospital discharge. Discharge recommendation is based on the patient's current physical impairments, prior functional status, potential to return to prior level of function, patient motivation, reported home support, potential for functional gains, current level of endurance, reported home environment and anticipated trajectory of progress and may change based on patient progress during this hospitalization. Consult Recommendations: No other consults recommended at this time. Equipment Needs: Anticipated Equipment Needs at Discharge (PT): to be determined Inpatient/Acute Care PT Plan: Therapy Frequency (PT): 2-4 times/wk for therapy. x Consult service will continue to follow patient. PT signing off. Recommendations above, page if further consultation required. Goals: Goals ongoing as of 05/10/23 unless otherwise noted Goals: To be achieved by 05/25/23: Pt. to demonstrate knowledge of safety limitations and precautions Pt. to demonstrate understanding of appropriate exercises. Pt. to perform supine to/from sitting EOB with mod A x2 Pt. to perform sit to/from stand transfers with mod A x2 and LRAD Pt. to ambulate 10 feet with mod A and least restrictive assistive device Pt. to propel WC x50 feet with min A Pt to sit at EOB, participating in functional task for >5 minutes without LOB, with CG assistance Pt to tolerate use of overhead lift for OOB transfers MET 4/3 Pt to tolerate upright positioning with VSS Time IN / OUT: 4054-8115 Total Minutes, Physical Therapy: 50 Billing Code: x4 TEF Thank you for this consult. [place] Leal, PT Pager: [phone] Physical Therapy Inpatient Rehabilitation Department * Edis Skaggs MD - 05/10/2023 9:35 AM EDT STAFF PROGRESS NOTE Neurocritical Care Author: EDIS SKAGGS MD Patient seen and examined on neurocritical care rounds. Myla 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 male with the following active issues:: 04/18/23: cerebellar hemorrhage and Type B aortic dissection; respiratory failure resulting in intubation and EVD placement 04/19/23; extubation 04/20/23: reintubation 04/22/23: extubation 04/27/23: reintubation 04/30/23: VAP 05/05/23: extubation ASSESSMENT, MANAGEMENT, and DECISION MAKING: Neuro: halodol and seroquel for agitation Hemodynamics: cardiology input appreciated; joint decision with vascular surgery to liberalize BP goal to <140; will try to titrate clevidipine and NTG; continue with terazosin, diltiazem, coreg, lisinopril, hyralazine, spironolactone and clonidine Pulmonary: overnight on CPAP briefly, now on 3L by NC Renal: Na+ 132; check urine lytes and serum osmolarity; minimal result to Lasix; will try to keep fluid balance at least even GI:TF Heme:ASA, SQ heparin and SCD's Endo: glucose control acceptable ID; no issues EXAM: Physical Exam Awake, intermittently fixes gaze, says a few barely comprehensible words Lungs: clear Heart: RRR Abdomen: soft Ext: moderate edema Last value Range last 24 hrs Temperature Temp: 37.1 ??C (98.7 ??F) Temp: [36.9 ??C (98.4 ??F)-37.7 ??C (99.8 ??F)] Heart Rate Heart Rate: 61 Heart Rate: [60-82] Blood Pressure BP: 115/49 BP: (99-152)/(48-126) Respiratory Rate Resp: 19 Resp: [13-28] SpO2 SpO2: 95 % SpO2: [91 %-98 %] Art BP BP (Arterial Line): 107/51 BP (Arterial Line): -- Last Ht 04/18/23 174 cm (5' 8.5) Last Wt 05/10/23 118.9 kg (262 lb 2 oz) Body mass index is 39.27 kg/m??. IS PATIENT CRITICALLY ILL ? Is there a high potential of sudden, clinically significant, or life threatening deterioration? Yes Is there a need for direct personal assessment and management to treat/prevent multiple vital organfailure/deterioration? Yes PATIENT IS CRITICALLY ILL WITH THESE DIAGNOSES BEING MANAGED BY CCS TEAM: Aortic dissection with hypertension requiring blood pressure control I personally performed 30 minutes of aggregate critical care time exclusive of procedures and teaching. This includes time spent during direct patient evaluation and reassessment, interpreting diagnostic tests, directing life and/or organ supporting interventions and documentation on the unit. EDIS SKAGGS MD 05/10/2023 * Unique Mcghee, RD - 05/10/2023 9:09 AM EDT Nutrition Progress Note Myla 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 male with unknown pmhx (no PCP or listed medications) who presents asa transfer from an OSH for evaluation of a right cerebellar IPH. Now s/p R EVD placement 04/17 givenhydrocephalus. Reason for Assessment: ICU Tube Feeding, Follow-up Nutrition Recommendations: NPO per TREASURY CONSULTANT recs 05/09 Nutren 2.0 with a goal of 230 mL x 4 daily At goal, this will provide 920 mL formula, 1840 calories, 77 grams protein, 637 mL water from formula, and 100% of the RDI's for vitamin and minerals. Monitor hydration status on above TFs as they are concentrated. Pt may need additional fluids depending on IVFs, med flushes, p.o. Intake, etc. Mg and phos with daily labs Monitor BM - goal of 1 t92-77her while on TF Monitor BG - goal of 140-180 Daily weights I was able to discuss plan with provider [place] [id number] team . Current Nutrition Regimen: Active Orders Diet NPO diet (Give Meds) Frequency: Effective Now Number of Occurrences: Until Specified All Active TF Orders: Peptamen 1.5 with a goal of 250 mL x 5 daily At goal, this will provide 1250 mL formula, 1875 calories, 85 grams protein, 965 mL water from formula, and 100% of the RDI's for vitamin and minerals. Average tube feeding provision over the past 2 days; 4.5 bolus vs daily goal volume of 5 bolus (90%of goal) Tolerance or barriers to meeting needs: tolerating so far Assessment: Lab Results Component Value Date NA 132 (L) 05/10/2023 K 4.3 05/10/2023 CL 98 05/10/2023 CO2 22 05/10/2023 BUN 17 05/10/2023 CREATININE 1.74 (H) 05/10/2023 ESTGFR 43 (L) 05/10/2023 MAGNESIUM 0.75 05/10/2023 CALCIUM 9.2 05/10/2023 PHOS 4.0 05/10/2023 AST 26 04/28/2023 ALT 38 04/28/2023 ALKPHOS 61 04/28/2023 BILITOT 0.5 04/28/2023 BILIDIR 0.3 04/28/2023 TRIG 194 05/07/2023 HA1C 6.0 (H) 04/19/2023 25OHVITD 13 (L) 04/29/2023 IRON 25 (L) 04/29/2023 No results found for: POCGLU Patient Lines/Drains/Airways Status Active Nutritional LDAs Name Placement date Placement time Site Days Naso/Oral Tube 05/06/23317 Fal[place] sump right nostril 05/06/23317 right nostril 4 PICC Line 04/20/23 1410 Triple Lumen 5 Fr brachial vein, right 04/20/23 1410 -- 20 Urethral Catheter 04/24/23 1401 04/24/23 1401 -- 16 Pressure Injury 05/02/23 other (see comments) Stage 1 05/02/23 -- -- 8 Pressure Injury 05/09/23 other (see comments) suspected deep tissue injury 05/09/23 -- -- 1 Oxygen Therapy / Airway Device: Nasal cannula Shift Pressure Injury Prevention Occiput: No Injury Thoracic Spine: No Injury Sacral: No Injury Ischial - left: No Injury Ischial - right: No Injury Heel - left: No Injury Heel - right: No Injury Elbow - left: No Injury Elbow - right: No Injury Device Sites: BP Cuff, ECG Leads, rebolledo, IV sites, NGT, O2 sat monitor, oxygen tubing, SCD's / venodynes Other Sites: ID Bands, NGT Last Bowel Movement: 05/10/23 Intake/Output Summary (Last 24 hours) at 05/10/2023 0909 Last data filed at 05/10/2023 0600 Gross per 24 hour Intake 5078.87 ml Output 2075 ml Net 3003.87 ml Relevant medications: Continuous clevidipine 21 mg/hr (05/10/23 0652) nitroGLYcerin 200 mcg/min (05/10/23 0334) Scheduled spironolactone 25 mg Per NG tube Daily QUEtiapine 50 mg Per NG tube Q8H simethicone 40 mg Per NG tube 4 Times Daily hydrALAZINE 200 mg Per NG tube Q6H terazosin 1 mg Per NG tube BID tube feeding diet 250 mL Per NG tube 5 Times Daily carvediloL 50 mg Per NG tube BID cloNIDine 0.3 mg Per NG tube Q8H lidocaine 2 patch Transdermal Q24H traMADoL 50 mg Per NG tube Q8H FLUoxetine 20 mg Per NG tube Daily aspirin 81 mg Per NG tube Daily senna-docusate 2 tablet Per NG tube BID dilTIAZem 120 mg Per NG tube Q6H YUSUF lisinopriL 40 mg Per NG tube Daily ergocalciferoL (vitamin D2) 50,000 Units Per NG tube Weekly heparin (porcine) 5,000 Units Subcutaneous Q8H YUSUF camphor-methyl salicyl-menthoL Topical (Top) BID PRN QUEtiapine, ipratropium-albuteroL, sodium chloride, oxyCODONE, tfcoba-kotyosie-qbxirtb AND sodium bicarbonate, potassium chloride in water OR potassium chloride in water OR potassium chloride in water, haloperidol lactate, polyethylene glycoL (MIRALAX) oral powder AND bisacodyL AND bisacodyl EC AND lactulose AND lactulose AND magnesium citrate AND Tap water enema, acetaminophen, potassium chloride ER OR potassium chloride ER, labetaloL, enalaprilat, glucose 40% oral geL OR dextrose OR glucagon Anthropometrics: Admit Weight: 111.8 kg Estimated body mass index is 39.27 kg/m?? as calculated from the following: Height as of this encounter: 174 cm (5' 8.5). Weight as of this encounter: 118.9 kg (262 lb 2 oz). [place] Body Weight (IBW) (kg): 71.37 Wt Readings from Last 10 Encounters: 05/10/23 118.9 kg (262 lb 2 oz) Patient Vitals for the past 168 hrs: Weight 05/10/23 0600 118.9 kg (262 lb 2 oz) 05/09/23 0600 117 kg (257 lb 15 oz) 05/08/23 0542 117.1 kg (258 lb 2.5 oz) 05/07/23 1650 116.4 kg (256 lb 9.9 oz) Weight Source: Bed Estimated / Assessed Needs: Fluid Requirements: Estimated Fluid Requirement Method: Weight Based Method Weight Based Method: 30 Weight Based Calculation: 2142 mL Metabolic cart study: 1820 kcals Kcal / K - 1785 Kcal (20 Kcal/Kg - 25 Kcal/Kg) Estimated Protein Needs: 86 g - 107 g (1.2 g/Kg - 1.5 g/Kg) Nutrition intake and intake history / interview: 05/09: TF now at goal. Hyponatremic today and volume status trending down. Team requesting to switch to more concentrated TF formula. 05/07: TF switched to trickle today. Per team, c/f aspiration with pt sliding down in bed - requesting to trial intermittent TF. Will increase kcal from TF now that propofol d/c. 05/04: Propofol off. TF at goal. Hyponatremic. Extubated again today. 3/27: Propofol rate decreasing, will increase kcal from TF. 04/30: TF on APR hold. Propofol went up quite a bit. 04/27: Extubated and re-intubated. TF presently off. On small amt of propofol and javon. Multiple BM yesterday. Lasix drip. GFR <60. Met cart study 1820 kcals. 04/25: TF was off/on hold this morning due to TF formula not being available per flowsheet - checkedunit storage - plenty of Pep AF in top drawer. Pt back from CT scan and TF reportedly restarted. NoBM since 04/21. Phos and Na slightly low. 04/23: Consulted again for TF. Prior goal remains appropriate for now - advance to goal. Off propofol. Has small bore feeding tube. Needs to move bowels. NPO per TREASURY CONSULTANT. 04/19: Re-intubated. TF at 25 mL/hr today. On low dose propofol. No BM this admission. 04/17: Consulted for TF recommendations. May extubate tomorrow. On some propofol. On alcohol withdrawal protocol - thiamine, folic acid and Thera M ordered. Nutrition Focused Physical Exam: Not performed Reason NFPE Not Performed: Not indicated. Malnutrition Diagnosis: Not identified (Hieu, JPAMILCAR J Parenteral Enteral Nutr. 2011; 36(3): 273-83) Nutrition to continue to follow up while inpatient Thank you, Unique Mcghee, MS, RD, CNSC, LD Clinical Nutrition * Maynor Loco RN - 05/10/2023 9:07 AM EDTSummary: ROUTINE Images from the original note were not included. VAS Routine rounding assessment done 05/10/23 @ 0900. PICC intact and patent (see flowsheet and imageattached). * Tiarra Vasquez SLP - 05/10/2023 9:02 AM EDT Speech Therapy Note Patient Profile: Myla 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 He was intubated at OSH for airway protection given worsening somnolence and transferred to [facility] on 04/18/2023. Hospital course has been complicated by hypoxic respiratory failure requiring multiple intubations (04/17-04/18, 04/18-04/21, 04/26-05/04; 12 days total). TREASURY CONSULTANT has been following since 04/23 for cognition and dysphagia management. Interval History: Fluctuating mentation Received PRN Seroquel x2, Haldol x1 overnight Recent Imaging: No new imaging on file. Subjective: Patient was lethargic and consisently opened his eyes to command but was otherwise minimally engaged with care. Objective: Patient seen for dysphagia management and demonstrated the following: Pain: No acute signs of discomfort Respiratory Status: Room air, satting 95% Current Diet: NPO diet (Give Meds) Feeding / Oral Care Status: Patient is dependent due to a combination of post- stroke weakness, generalized deconditioning, and altered mental status Cognitive-Linguistic Status: Lethargic with brief periods of eye opening to multimodal stimulation Occasionally mumbling in response to questions or comments Limited command following Positioning: HOB at 50 degrees Oral Motor Examination: No significant changes Bolus Presentations: Ice cream via / tsp x1 Refused all other trials (closed mouth, turned away) Oral Preparatory Phase Mastication: N/A Oral transit: No clear attempts at oral manipulation despite commands Bolus cohesion: N/A Oral containment: N/A Oral stasis: Unable to visualize; limited return on oral suction Pharyngeal Phase Swallow initiation: No clear initiation attempts Vocal quality change: N/A Cough / throat clear: N/A Pt complaint of food getting stuck: N/A Fatigue across trials: Yes Respiratory rate and respiratory swallow pattern: Unlabored and coordinated Esophageal Observations Unable to comment meaningfully with limited observations Education: Deferred direct education due to patient's current mental status. Patient status and swallow recommendations were discussed with nursing. Assessment: Myla was seen today for dysphagia management. He had again received a PRN dose of Seroquel approximately 3 hours prior to our session and was lethargic with altered mental status characterized by poor arousal, inattention, and disorientation. He occasionally mumbled in response to questions or comments but was otherwise minimally engaged with care. PO trials were limited by patient arousal and participation. Myla presented with minimal oral manipulation and no discernable swallow initiation despite verbal, visual, tactile, and thermal cues. He refused all other trials, closing his lips and turning away from the spoon. Suspect dysphagia is currently multifactorial in the setting of post-stroke weakness, generalized deconditioning, altered mental status, and potentially delirium, and will likely continue to evolve with progression of neurological symptoms. For now, recommend continuing NPO status with frequent reassessment for changes in status. Depending on his clinical trajectory, Myla may benefit from further discussions re: longer-term enteral access if aligned with his goals of care. Diagnosis: Oral and suspected pharyngeal dysphagia 2/2 post-stroke weakness, generalized deconditioning, and altered mental status Recommendations: Diet: NPO; may have small amounts of water via swab for comfort and swallow stimulation when alert and accepting PO Medications: IV or other alternative means only Aspiration Precautions: Excellent oral care to reduce risk of aspiration pneumonia Delirium Precautions: Orientation: Provide visual and hearing aids Utilize cues such as calendars and clocks Encourage communication and reorient patient repeatedly Have familiar objects from patient's home in room Attempt consistency in nursing staff Allow television during the day with daily news Environment: Sleep hygiene (dim light at nighttime, bright during the day) Limit excess noise (staff, equipment, visitors at night) Ambulate or mobilize patient early and often Speech Therapy Goals: Pt will tolerate least restrictive diet without further respiratory decompensation. Caregiver will be independent with aspiration precautions. Pt will maintain hydration / nutrition with optimal safety and efficiency. Caregiver will follow anti-delirium precautions with assist from staff as needed. Plan: Therapy Frequency (TREASURY CONSULTANT Eval): 2-4 times/wk Patient unable to indicate agreement with the plan of care due to decreased mental status. Total Minutes (Speech Language Pathology): 8 Tiarra Vasquez MS, [facility]TREASURY CONSULTANT Speech-Language Pathologist Inpatient Rehabilitation Pager # [phone] * Tiarra Vasquez SLP - 05/09/2023 12:15 PM EDT Speech Therapy Clinical Swallow Evaluation Patient Profile: Myla 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 He was intubated at OSH for airway protection given worsening somnolence and transferred to [facility] on 04/18/2023. Hospital course has been complicated by hypoxic respiratory failure requiring multiple intubations (04/17-04/18, 04/18-04/21, 04/26-05/04; 12 days total). TREASURY CONSULTANT has been following since 04/23 for cognition and dysphagia management, now completing a repeat post-extubation swallow evaluation. Prior Level of Function: WNL Relevant Imaging: XR Chest (05/04/2023) IMPRESSION Persistently low lung volumes. Continued left lower lobe consolidation consistent with atelectasis.Superimposed infection or inflammation is not excluded. CT Head (05/02/2023) IMPRESSION No change in ventricular caliber, intraventricular hemorrhage or right cerebellar hemorrhage with moderate surrounding edema. Subjective: Patient was lethargic with intermittent brief eye opening to multimodal stimulation. Per RN, he received an additional dose of Seroquel overnight for agitation. Objective: Patient seen for evaluation today. Pain: No acute signs of discomfort Respiratory Status: Nasal canula 3 L/min, satting 93-95% Vision: aided with glasses Hearing: Functional for evaluation Current Diet: NPO diet (Give Meds) Feeding and Oral Care: Patient is dependent due to a combination of post-stroke weakness, generalized deconditioning, and altered mental status requiring bilateral wrist restraints. Cognitive-Linguistic Status: Lethargic with brief periods of eye opening to multimodal stimulation No clear communication attempts Limited command following Positioning: In bed-chair Oral Motor Examination: Unable to assess due to limited participation in exam. Suspect generalized weakness based on overall presentation. Patient vocalized once with good intensity. Provided oral care for removal of thick secretions from the tongue and palate. Bolus Presentation(s) Ice chips x2 Oral Preparatory Phase Mastication: N/A Oral transit: Limited oral manipulation despite commands; minimal to no response to thermal stimulation Bolus cohesion: Reduced Oral containment: Reduced Oral stasis: Unable to visualize Pharyngeal Phase Swallow initiation: No clear initiation attempts Vocal quality change: N/A Cough / throat clear: N/A Pt complaint of food getting stuck: N/A Fatigue across trials: Yes Respiratory rate and respiratory swallow pattern: Unlabored and coordinated Esophageal Phase Unable to comment meaningfully with limited observations Compensatory Techniques: Patient was unable to return demonstrate effective use of strategies due to current mental status RISK FACTORS FOR ASPIRATION PNEUMONIA X Stroke or other neurological disease + number decayed teeth, poor oral hygiene COPD, CHF X Dependency for oral care and/or feeding GI disease, especially esophageal dysmotility X Reduced mobility, bed bound Active tobacco use X Use of tube feed, especially via NGT/DHT Immunocompromised HOB below 30 degrees X Use of sedating medications or PPI UTI X Reduced level of alertness and/or delirium X Advanced age Education: Discussed effects of weakness, sedation, and altered mental status on swallow function with patient's , Gina, who verbalized understanding. Reviewed plan for continued reassessment and potential for diet advancement as tolerated. Patient status and swallow recommendations were discussed with nursing. Briefly discussed plan for reassessment with the primary team. Assessment: Myla was seen for a clinical swallow evaluation. He was extubated on 05/04 following an8-day intubation for hypoxic respiratory failure. Myla had received a dose of Seroquel approximately 3 hours prior to our session and was lethargic with altered mental status characterized by poor arousal, disorientation, and limited communication attempts. Oral motor examination was limited by patient participation with informal observations revealing generalized weakness and strong vocal quality despite repeated intubations. PO trials were similarly limited. Myla presented with minimal oralmanipulation and no discernable swallow initiation despite verbal, visual, tactile, and thermal cues. Suspect dysphagia is currently multifactorial in the setting of post-stroke weakness, generalized deconditioning, altered mental status, and potentially delirium, and will likely continue to evolve with progression of neurological symptoms. For now, recommend continuing NPO status with frequent reassessment for changes in status. Depending on his clinical trajectory, Myla may benefit from further discussions re: longer-term enteral access if aligned with his goals of care. Diagnosis: Oral and suspected pharyngeal dysphagia 2/2 post-stroke weakness, generalized deconditioning, and altered mental status Recommendations: Diet: NPO; may have small amounts of water via swab for comfort and swallow stimulation when alert and accepting PO Medications: IV or other alternative means only Aspiration Precautions: Excellent oral care to reduce risk of aspiration pneumonia Delirium Precautions: Orientation: Provide visual and hearing aids Utilize cues such as calendars and clocks Encourage communication and reorient patient repeatedly Have familiar objects from patient's home in room Attempt consistency in nursing staff Allow television during the day with daily news Environment: Sleep hygiene (dim light at nighttime, bright during the day) Limit excess noise (staff, equipment, visitors at night) Ambulate or mobilize patient early and often Pt will benefit from continued TREASURY CONSULTANT services while hospitalized. Speech Therapy Goals: (To be met by discharge) Pt will tolerate least restrictive diet without further respiratory decompensation. Caregiver will be independent with aspiration precautions. Pt will maintain hydration / nutrition with optimal safety and efficiency. Caregiver will follow anti-delirium precautions with assist from staff as needed. Plan: Therapy Frequency (TREASURY CONSULTANT Eval): 2-4 times/wk Patient's is in agreement with the plan of care. Total Minutes (Speech Language Pathology): 20 Tiarra Vasquez MS, [facility]TREASURY CONSULTANT Speech-Language Pathologist Inpatient Rehabilitation Pager # [phone] * Edis Skaggs MD - 05/09/2023 10:10 AM EDT STAFF PROGRESS NOTE Neurocritical Care Author: EDIS SKAGGS MD Patient seen and examined on neurocritical care rounds. Myla 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 male with the following active issues:: 04/18/23: cerebellar hemorrhage and Type B aortic dissection; respiratory failure resulting in intubation and EVD placement 04/19/23; extubation 04/20/23: reintubation 04/22/23: extubation 04/27/23: reintubation 04/30/23: VAP 05/05/23: extubated ASSESSMENT, MANAGEMENT, and DECISION MAKING: Neuro: sedation regimen seroquel, tramadol, prozac, given one dose phenobarb yesterday and appears to be less agitated Hemodynamics: impulse control remains a challenge and cardiology input appreciated; clevidipine andnitroglycerine infusions, hydralazine, lisinopril, terazosin, carvedilol, diltiazem, clonidine; following Qtc Pulmonary: CPAP for four hours overnight Renal:Cr stable will aim for diuresis 1-2L/ 24 hours Heme: SCD's, SQ heparin Endo:glucose control acceptable ID: no current issues EXAM: Physical Exam Eyes closed, does not open to voice, pupils reactive, minimal movement in extremities to stimulation Lungs: clear Heart: RRR Abdomen: soft Ext: moderate edema Last value Range last 24 hrs Temperature Temp: 37.6 ??C (99.6 ??F) Temp: [36.5 ??C (97.7 ??F)-37.6 ??C (99.6 ??F)] Heart Rate Heart Rate: 74 Heart Rate: [56-89] Blood Pressure BP: 138/57 BP: (102-163)/(51-101) Respiratory Rate Resp: 17 Resp: [16-30] SpO2 SpO2: 92 % SpO2: [91 %-99 %] Art BP BP (Arterial Line): 107/51 BP (Arterial Line): -- Last Ht 04/18/23 174 cm (5' 8.5) Last Wt 05/09/23 117 kg (257 lb 15 oz) Body mass index is 38.64 kg/m??. IS PATIENT CRITICALLY ILL ? Is there a high potential of sudden, clinically significant, or life threatening deterioration? Yes Is there a need for direct personal assessment and management to treat/prevent multiple vital organfailure/deterioration? Yes PATIENT IS CRITICALLY ILL WITH THESE DIAGNOSES BEING MANAGED BY [facility] TEAM: Aortic dissection with hypertension I personally performed 30 minutes of aggregate critical care time exclusive of procedures and teaching. This includes time spent during direct patient evaluation and reassessment, interpreting diagnostic tests, directing life and/or organ supporting interventions and documentation on the unit. EDIS SKAGGS MD 05/09/2023 * Jamaica Leal, PT - 05/08/2023 6:48 PM EDT Physical Therapy Intervention Note Treatment Number PT: 3 Total duration of encounter: 20 days Patient profile: Myla Acosta is a 67 year old male with unknown pmhx (per chart review, does notappear to have a PCP or follow up within the [facility] system) who presents as a transfer from an OSH for evaluation of a right cerebellar IPH. Per report, LKN was 04/17/23 at 2100, he woke up c/o vertigo and nausea/vomiting. Subsequent imaging studies revealed a right cerebellar IPH with ANIL. Initial Bps were noted to be in the 200s. Was started on a nicard gtt for BP control. Was subsequently intubated at the OSH for airway protection given worsening somnolence. Presented to [facility] where he was intubated. Brainstem reflexes were preserved. Decision was made to place EVD with NSG. Imaging of carotids and [place] reveal unexpected finding of type B aortic dissection. CTACA with type B dissection extending from subclav to external iliac. Vascular surgery was consulted.Pt was extubated on 04/23, but has been on the CIWA protocol. INTERVAL HX/ROS: course c/b failed extubation 2/2 aspiration x 2, fluid overload. EVD removed. Extubated again 05/04. Social History: Patient lives with spouse in a [place] home, [address]. Walk in shower with Gbs. Spouse works fulltime. 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 Normally independent. Bilateral hip OA/pain but no device used normally. Independent ADLs and shared IADLs Precautions/Special Considerations: HOB > 30 deg, SBP <120, HR <80, rebolledo catheter, PICC, DHT, NPO diet, goal spO2 >92%, supplemental O2 via NC Mobility and Positioning Recommendations: Pt. to utilize bed/chair positioning with nursing. Please encourage up to chair for meal times as able. EP Level 2: Bed-Chair position, Mechanically lift to chair, Participate in self care Subjective: ???just leave it be, let me sit?? Objective: Pt seen for physical therapy treatment today and presented as follows: Pain: No pain endorsed throughout session Vital Signs: At Rest With Activity SpO2 (4LNC) 95% 93% BP (MAP) Lower leg 122/85 (97)mmHg 150/64 (86)mmHg RN aware HR 60sbpm 70sbpm Behavior / Mood: alert, confused, impaired task initiation Oriented to: person. Disoriented to situation, place, time. Unable to recall time/date even after re-oriented Follows commands: 1 step and 75% of the time, needs repeated verbal and tactile cuing, visual cues helpful Attention: difficulty attending to task/directions, verbal and tactile cuing Safety awareness: impulsive and bilateral wrist restraints. Cuing and assist needed occasionally due to pulling at lines/tubes RASS: -1/0 CAM: N/A Communication: verbal, garbled/mumbled speech at times Vision: glasses worn, appears to have double vision, unable to read whiteboard or correctly state number of fingers (stated double the amount at times). Able to determine color of gloves etc. Accurately Skin: intact but at risk for breakdown Musculoskeletal: ROM: full AROM and PROM appreciated UE and LE based on observation Sensation: AVI Tone: normal Strength: at least 3/5 bilateral LE Coordination: Significantly impaired - worked on ball toss/pillow toss and catching using bilateral UE in midline(in bed with full back support). Working on clapping hands at midline. Bed Mobility: Supine to Sit: max Ax2 to R side EOB, HOB elevated. Poor task initiation, needing tactile and verbal cues for LE movement Sit to Supine: max A x2 Other: boosted and rolled with x3A and heavy reliance on bed features Able to perform DL bridge with tactile and verbal cuing Transfers: Sit to Stand: max A x2 from elevated bed height, blocking bilateral knees, heavy cuing and assist due to R sided lean, spouse present to offer visual input for midline standing posture. Stood x2 fromhigh surface of bed maintaining static standing <10 seconds Stand to Sit: max A x2 Bed to Chair: dependent with bed features into bed chair positioning; needs mechanical lift to mobilize OOB Other: N/A Gait: AVI Stairs: AVI Balance: Sitting Static: poor - R sided lean, posterior lean and LOB. With use of LUE on bed rail able to maintain balance with CGA. Verbal and visual cuing for midline posture - leans to R side. Improved static sitting balance with visual input - may benefit from mirror therapy Sitting Dynamic: poor LOB posteriorly and to R without constant cuing and without UE support Standing Static: poor - x2 max A Standing Dynamic / Gait: AVI Education: patient educated on role of PT, orientation, participation, safety, bed mobility ,sitting balance, posture, and plan of care, with guarded understanding/demonstration. Patient status, treatment, and mobility recommendations discussed with nursing. Pt left supine in bed, with all needs met, with call hurley in reach, with bed alarm active, and withfamily at the bedside following visit. Team Communication: communication with nursing staff pre/post session regarding readiness and response to therapy intervention. Assessment: Myla Acosta was seen today for physical therapy intervention. Pt with improved affect, participation in therapy, and overall tolerance to activity. Able to partake in bed mobility, with interventions focusing on seated balance at EOB. Pt with poor awareness and insight into deficits, resulting in impaired sense of midline. Benefiting from visual feedback and cues for posture. Briefly attempted standing, but significant assistance needed due to impaired strength and again impaired sense of midline. Continues to be limited by HTN during activity, above parameters. Based on current presentation, anticipate pt would be able to tolerate acute vs swing level of rehab once discharged from hospital care setting. Pt will benefit from skilled therapy services throughout hospitalization to promote safety, independence, and provide developmental support/caregiver education. Discharge Recommendations: Based on the current findings, Anticipated Discharge Disposition (PT): acute rehabilitation facility, swing bed rehabilitation facility when medically ready for hospital discharge. Discharge recommendation is based on the patient's current physical impairments, prior functional status, potential to return to prior level of function, patient motivation, reported home support, potential for functional gains, current level of endurance, reported home environment and anticipated trajectory of progress and may change based on patient progress during this hospitalization. Consult Recommendations: No other consults recommended at this time. Equipment Needs: Anticipated Equipment Needs at Discharge (PT): to be determined Inpatient/Acute Care PT Plan: Therapy Frequency (PT): 2-4 times/wk for therapy. x Consult service will continue to follow patient. PT signing off. Recommendations above, page if further consultation required. Goals: Goals ongoing as of 05/08/23 unless otherwise noted Goals: To be achieved by 05/25/23: Pt. to demonstrate knowledge of safety limitations and precautions Pt. to demonstrate understanding of appropriate exercises. Pt. to perform supine to/from sitting EOB with mod A x2 Pt. to perform sit to/from stand transfers with mod A x2 and LRAD Pt. to ambulate 10 feet with mod A and least restrictive assistive device Pt. to propel WC x50 feet with min A Pt to sit at EOB, participating in functional task for >5 minutes without LOB, with CG assistance Pt to tolerate use of overhead lift for OOB transfers Pt to tolerate upright positioning with VSS Time IN / OUT: 4817-8485 Total Minutes, Physical Therapy: 46 Billing Code: x3 TEF Thank you for this consult. [place] Leal, PT Pager: [phone] Physical Therapy Inpatient Rehabilitation Department * Zarina Herrera, OT - 05/08/2023 6:41 PM EDT Occupational Therapy Treatment Note Treatment Number OT: 3 Patient profile: Myla 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 male admitted on 04/18/2023 for R cerebellar hemorrhage with IVH. EVD was placed for hydrocephalus. Pt was intubated at OSH for airway protection. Imaging of carotids and [place] reveal unexpected finding of type B aortic dissection. CTA CA with type B dissection extending from subclav to external iliac. Vascular surgery was consulted. Pt wasextubated on 04/23, but has been on the CIWA protocol. Social History: Patient lives in [place], [place] with his , Tiffany, who still works. They have 2 children 10 and 30 mins away. Home Setup: 1 PATRICIA, 1 level, small thressholds in the house, has a large walk-in shower w/ no seat but grab bar. Per his , he built the house. DME: grab bar, Baseline ADL/Mobility: Pt was independent w/ ADL's. He was somewhat limited because of arthritis inhis hips, but he ambulated w/o a device and his denies h/o falls. He was driving. They share cooking, but Tiffany does most other solderer electronic. 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 He enjoys woodworking and puttering. Hospital Events: 04/18/23: cerebellar hemorrhage and Type B aortic dissection; respiratory failure resulting in intubation and EVD placement 04/19/23; extubation 04/20/23:reintubation 04/22/23: extubation 04/27/23: reintubation 04/30/23: VAP 05/05/23: extubated Precautions/Special Considerations: at risk to fall, NGT, SBP< 120, HR<80, R UE PICC, supplemental 02, rebolledo Interval History: EVD removed; extubated 05/04 S:6 when shown 3 fingers O: Patient seen for skilled OT treatment. Pt's Gina was present during session. Pt demonstrated the following: Self-care: Able to kick LE's to have socks donned for him sitting EOB (dependent) Remains dependent for self-care tasks Dependent for toileting hygiene Functional Mobility: Supine to Sit: max-dependent x2 A to R side EOB, HOB elevated Sitting EOB: Max A, tending to lean heavily to his right and posteriorly Worked on static sitting balance w/ midline visual targets and max cues--able to adjust his position for brief intervals (~45 seconds) and hold himself for ~20 seconds Sit to stand: attempted x 1 w/ max A x 2; difficulty achieving full upright position but cleared bed; unable to initiate steps/shift weight Sit to Supine: dependent - x3 assist Boosted and rolled with 2 assist for linen change, hygiene and positioning Bed to Chair: dependent with bed features into bed chair positioning Cognition: Behavior / Mood: alert, cooperative, confused, and impaired task initiation Alert and oriented to: person, [facility], not month or year (thought December x despite reorientation) Follows commands: 1 step, 75% of the time, requires increased time, and requires repetition Attention: distractible, difficulty attending to task / directions, and requires cues to redirect Safety awareness: decreased insight into deficits and moderate impairment (reaching toward nose butnot attempting to pull NGT) Communication: difficult to understand, mumbling/dysarthric Vision: eyes open most of session, tracking to speaker inconsistently; when cued to visualy track, able to follow speaker to R and L with increased effort; when shown fingers, appeared to report seeing double; will continue to assess; able to read OT on name badge, but unable to read the whiteboard at ~15' Endurance: poor Vitals: At rest: 95% on 4 L NC BP: 122/85 (97) mmHg HR 62 With activity: 93% on 4 L NC BP: 150/654 (86)* RN aware and increased Nitro HR 70's Strength/ROM: moving all extremities against gravity but weak and edematous UE's Therex: AAROM shoulder flex to visual targets x 5 each side; worked on clapping his hands and clapping his knees in supported sitting; also had him practice throwing/catching a pillow then a mitt (more difficulty w/ mitt); kicked LE's when sitting EOB Pain: no overt c/o pain this session Education: Pt/family/caregiver education ongoing regarding: Role of occupational therapy/rehabilitation, Transfers, ADL, Exercise, Breathing exercises, Positioning, Safety, Precautions/Protocol, Functional Mobility, Activity pacing/Energy conservation, Balance, Recommendations, Family training, and Discharge planning. Staff Communication: Patient status, treatment, and mobility recommendations discussed with nursing/other staff. ASSESSMENT: Myla was seen for progression of OT per plan of care. Since prior OT session, Myla was re-intubated, now extubated with removal of EVD. He demonstrates improved arousal and participation compared to prior session. He is following most simple commands, though remains very deconditionedwith poor balance, variable initiation, and impaired motor control/coordination. He was able to siton the edge of the bed w/ variable sitting balance (CGA to max A ) and stood with max a x 2 (unableto take steps/shift weight or transfer). His HR remained within parameters but he was hypertensive requiring medication titration by RN. He was able to participate in some unilateral and bimanual coor dination activities. Myla will benefit from ongoing therapeutic interventions to achieve pt's and therapy goals Equipment needs at discharge: to be determined Anticipated Discharge Disposition: detention facility, acute rehabilitation facility Daily schedule / Staff Recommendations: Open shades and turn on lights during the day/lights off at night, Set-up patient with ADL tasks, allow patient to complete ADL tasks as independently as possible Provide choices as able, encourage safe coping skills (such as music, reading, coloring, word search, journaling) Have patient sit up in recliner via lift or bed in chair position during the day as much as possible Sit upright for all meals/meal times Goals: To be achieved within 2 weeks, by 05/08/23: extended to 05/17/23 because of medical setbacks Patient will consistently follow simple one-step commands. Patient will consistently be oriented x 4 and CAM (-). Patient will be complete grooming tasks in supported sitting w/ min A. Patient will be mod A with LB dressing. Patient will be mod A toileting. Patient will be mod A w/ a sponge bath in supported sitting. Patient will participate in further vision evaluation. Therapy Frequency (OT): 2-4 times/wk Total Minutes, Occupational Therapy: 46 Pager: [phone] ZARINA HERRERA OT 05/08/2023 Occupational Therapy Rehabilitation Department * Unique Mcghee, RD - 05/08/2023 11:21 AM EDT Nutrition Progress Note Myla 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 male with unknown pmhx (no PCP or listed medications) who presents asa transfer from an OSH for evaluation of a right cerebellar IPH. Now s/p R EVD placement 04/17 givenhydrocephalus. Reason for Assessment: ICU Tube Feeding, Follow-up Nutrition Recommendations: Peptamen 1.5 with a goal of 250 mL x 5 daily At goal, this will provide 1250 mL formula, 1875 calories, 85 grams protein, 965 mL water from formula, and 100% of the RDI's for vitamin and minerals. For intermittent feeds, initiate slowly giving 150 mL over 45-60 minutes and increasing by 50 ml per feed as tolerated until able to reach goal of 250 ml of Peptamen 1.5, 5 times per day. Flush with 60 ml water before and after each feed to maintain patency and for hydration. D/c protein powder Monitor hydration status on above TFs as they are concentrated. Pt may need additional fluids depending on IVFs, med flushes, p.o. Intake, etc. Mg and phos with daily labs Monitor BM - goal of 1 [id number] while on TF Monitor BG - goal of 140-180 Daily weights I was able to discuss plan with provider [place] [id number] team . Current Nutrition Regimen: Active Orders Diet NPO diet (Give Meds) Frequency: Effective Now Number of Occurrences: Until Specified All Active TF Orders: Peptamen 1.5 with a goal rate of 50 mL per hour plus 3 scoop(s) protein powder daily. This rate is calculated to compensate for unplanned time off feedings due to potential procedures, etc. At goal, this will provide 1000 mL formula, 1575 calories, 86 grams protein, 772 mL water from formula + 150 mL water from protein powder administration, and 100% of the RDI's for vitamin and minerals. Average tube feeding provision over the past 3 days; 276mL vs daily goal volume of 1000mL formula (28% of goal) Average protein powder provision over the past 3 days; 2 scoops vs daily goal of 3 scoops (66% of goal) Tolerance or barriers to meeting needs: at [facility] Assessment: Lab Results Component Value Date NA 141 05/08/2023 K 3.8 05/08/2023 CL 108 (H) 05/08/2023 CO2 23 05/08/2023 BUN 21 (H) 05/08/2023 CREATININE 1.43 05/08/2023 ESTGFR 54 (L) 05/08/2023 MAGNESIUM 0.72 05/08/2023 CALCIUM 10.0 05/08/2023 PHOS 3.1 05/08/2023 AST 26 04/28/2023 ALT 38 04/28/2023 ALKPHOS 61 04/28/2023 BILITOT 0.5 04/28/2023 BILIDIR 0.3 04/28/2023 TRIG 194 05/07/2023 HA1C 6.0 (H) 04/19/2023 25OHVITD 13 (L) 04/29/2023 IRON 25 (L) 04/29/2023 No results found for: POCGLU Patient Lines/Drains/Airways Status Active Nutritional LDAs Name Placement date Placement time Site Days Naso/Oral Tube 05/06/23 0318 [place] sump right nostril 05/06/23 0318 right nostril 2 PICC Line 04/20/23 1410 Triple Lumen 5 Fr brachial vein, right 04/20/23 1410 -- 18 Urethral Catheter 04/24/23 1401 04/24/23 1401 -- 14 Pressure Injury 05/02/23 other (see comments) Stage 1 05/02/23 -- -- 6 Oxygen Therapy / Airway Device: Nasal cannula Shift Pressure Injury Prevention Occiput: No Injury Thoracic Spine: No Injury Sacral: No Injury Ischial - left: No Injury Ischial - right: No Injury Heel - left: No Injury Heel - right: No Injury Elbow - left: No Injury Elbow - right: No Injury Device Sites: BP Cuff, ECG Leads, rebolledo, IV sites, NGT, oxygen tubing, SCD's / venodynes, wrist restraints Other Sites: DHT Last Bowel Movement: 05/07/23 Intake/Output Summary (Last 24 hours) at 05/08/2023 1121 Last data filed at 05/08/2023 1040 Gross per 24 hour Intake 3446.8 ml Output 5570 ml Net -2123.2 ml Relevant medications: Continuous tube feeding diet 10 mL/hr at 05/08/23 1040 clevidipine 16 mg/hr (05/08/23 1040) nitroGLYcerin 100 mcg/min (05/08/23 1040) Scheduled simethicone 40 mg Per NG tube 4 Times Daily hydrALAZINE 200 mg Per NG tube Q6H carvediloL 25 mg Per NG tube BID QUEtiapine 100 mg Per NG tube Nightly QUEtiapine 50 mg Per NG tube Daily terazosin 1 mg Per NG tube BID cloNIDine 0.3 mg Per NG tube Q8H lidocaine 2 patch Transdermal Q24H traMADoL 50 mg Per NG tube Q8H FLUoxetine 20 mg Per NG tube Daily aspirin 81 mg Per NG tube Daily senna-docusate 2 tablet Per NG tube BID dilTIAZem 120 mg Per NG tube Q6H YUSUF lisinopriL 40 mg Per NG tube Daily protein powder 1 Scoop Per NG tube TID ergocalciferoL (vitamin D2) 50,000 Units Per NG tube Weekly ipratropium-albuteroL 3 mL Nebulization Q4H sodium chloride 4 mL Nebulization Q4H heparin (porcine) 5,000 Units Subcutaneous Q8H YUSUF camphor-methyl salicyl-menthoL Topical (Top) BID PRN QUEtiapine, oxyCODONE, rxuvip-gwooarmj-sfemhzu DR AND sodium bicarbonate, potassium chloride in water OR potassium chloride in water OR potassium chloride in water, haloperidol lactate, polyethylene glycoL (MIRALAX) oral powder AND bisacodyL AND bisacodyl EC AND lactulose AND lactulose AND magnesium citrate AND Tap water enema, acetaminophen, potassium chloride ER OR potassium chloride ER, labetaloL, enalaprilat, glucose 40% oral geL OR dextrose OR glucagon Anthropometrics: Admit Weight: 111.8 kg Estimated body mass index is 38.68 kg/m?? as calculated from the following: Height as of this encounter: 174 cm (5' 8.5). Weight as of this encounter: 117.1 kg (258 lb 2.5 oz). [place] Body Weight (IBW) (kg): 71.37 Wt Readings from Last 10 Encounters: 05/08/23 117.1 kg (258 lb 2.5 oz) Patient Vitals for the past 168 hrs: Weight 05/08/23 0542 117.1 kg (258 lb 2.5 oz) 05/07/23 1650 116.4 kg (256 lb 9.9 oz) 05/03/23 0600 125.4 kg (276 lb 7.3 oz) 05/02/23 0600 126.3 kg (278 lb 7.1 oz) Weight Source: Bed Estimated / Assessed Needs: Fluid Requirements: Estimated Fluid Requirement Method: Weight Based Method Weight Based Method: 30 Weight Based Calculation: 2142 mL Metabolic cart study: 1820 kcals Kcal / K - 1785 Kcal (20 Kcal/Kg - 25 Kcal/Kg) Estimated Protein Needs: 86 g - 107 g (1.2 g/Kg - 1.5 g/Kg) Nutrition intake and intake history / interview: 05/07: TF switched to trickle today. Per team, c/f aspiration with pt sliding down in bed - requesting to trial intermittent TF. Will increase kcal from TF now that propofol d/c. 05/04: Propofol off. TF at goal. Hyponatremic. Extubated again today. 05/02: Propofol rate decreasing, will increase kcal from TF. 04/30: TF on APR hold. Propofol went up quite a bit. 04/27: Extubated and re-intubated. TF presently off. On small amt of propofol and javon. Multiple BM yesterday. Lasix drip. GFR <60. Met cart study 1820 kcals. 04/25: TF was off/on hold this morning due to TF formula not being available per flowsheet - checkedunit storage - plenty of Pep AF in top drawer. Pt back from CT scan and TF reportedly restarted. NoBM since 04/21. Phos and Na slightly low. 04/23: Consulted again for TF. Prior goal remains appropriate for now - advance to goal. Off propofol. Has small bore feeding tube. Needs to move bowels. NPO per TREASURY CONSULTANT. 04/19: Re-intubated. TF at 25 mL/hr today. On low dose propofol. No BM this admission. 04/17: Consulted for TF recommendations. May extubate tomorrow. On some propofol. On alcohol withdrawal protocol - thiamine, folic acid and Thera M ordered. Nutrition Focused Physical Exam: Not performed Reason NFPE Not Performed: Not indicated. Malnutrition Diagnosis: Not identified (BETHANY Hagen J Parenteral Enteral Nutr. 2011; 36(3): 273-83) Nutrition to continue to follow up while inpatient Thank you, Unique Beatty. Taz, , RD, CNSC, LD Clinical Nutrition * Edis Skaggs MD - 05/08/2023 9:00 AM EDT STAFF PROGRESS NOTE Neurocritical Care Author: EDIS SKAGGS MD Patient seen and examined on neurocritical care rounds. Myla 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 male with the following active issues:: 04/18/23: cerebellar hemorrhage and Type B aortic dissection; respiratory failure resulting in intubation and EVD placement 04/19/23; extubation 04/20/23:reintubation 04/22/23: extubation 04/27/23: reintubation 04/30/23: VAP 05/05/23: extubated ASSESSMENT, MANAGEMENT, and DECISION MAKING: Neuro: challenges remain with agitation;on seroquel, precedex; clonidine, tramadol, oxycodone, tylenol; prozac Hemodynamics: cardiology input appreciated; as noted impulse control remains challenging but vascular surgery continues to recommend goal of SBP <120 and HR <80; currently using clevidipine, nitoglycerine, terazosin, diltiazem, coreg, lisinopril, hydralazine, and clonidine Pulmonary: extubated 05/04 and appears to be tolerating with CPAP at night Renal: Cr continues to trend down c/w resolving OVI GI: TF Heme: SCD, SQ heparin Endo: glucose control acceptable ID: completed course of Zosyn for presumed VAP EXAM: Physical Exam Eyes open, roving eye movements, occasionally fixes gaze, says a few words, does not reliably follow commands Lungs: clear Heart: RRR Abdomen:soft Last value Range last 24 hrs Temperature Temp: 36.8 ??C (98.3 ??F) Temp: [36.8 ??C (98.2 ??F)-37.1 ??C (98.8 ??F)] Heart Rate Heart Rate: 80 Heart Rate: [60-81] Blood Pressure BP: 118/86 BP: (90-172)/(50-133) Respiratory Rate Resp: 27 Resp: [14-31] SpO2 SpO2: 95 % SpO2: [89 %-100 %] Art BP BP (Arterial Line): 107/51 BP (Arterial Line): -- Last Ht 04/18/23 174 cm (5' 8.5) Last Wt 05/08/23 117.1 kg (258 lb 2.5 oz) Body mass index is 38.68 kg/m??. IS PATIENT CRITICALLY ILL ? Is there a high potential of sudden, clinically significant, or life threatening deterioration? Yes Is there a need for direct personal assessment and management to treat/prevent multiple vital organfailure/deterioration? Yes PATIENT IS CRITICALLY ILL WITH THESE DIAGNOSES BEING MANAGED BY CCS TEAM: Aortic dissection requiring impulse control with multiple agents I personally performed 30 minutes of aggregate critical care time exclusive of procedures and teaching. This includes time spent during direct patient evaluation and reassessment, interpreting diagnostic tests, directing life and/or organ supporting interventions and documentation on the unit. EDIS SKAGGS MD 05/08/2023 * Beto Bravo RCP - 05/07/2023 4:57 PM EDT 05/07/23 1544 Oxygen Therapy O2 Device NC O2 Flow Rate (L/min) 4 L/min SpO2 96 % Resp 22 Pt on 4L laurie well Pt wore 10Cpap & 40% overnite Pt receiing duoneb & 3% saline q 4 B/S diminished Treatments laurie well Will continue to monitor pt * Nayana Prakash MSW - 05/07/2023 2:32 PM EDTSummary: unable to complete AD HOSPITAL MEDICINE DIRECTOR unable to obtain AD due to patient's AMS. * Yemi Mckenna RN - 05/07/2023 12:32 PM EDT 24 hr urine collection sent to lab via tranport * Tana Smith MD - 05/07/2023 9:36 AM EDT ICU PROGRESS NOTE DOA: 04/18/2023 Room: [address] [place] [address] Length of Stay: 19 ICU Length of Stay 19d 3h Myla Acosta ( ) is a 67 y.o. male with h/o etoh use, undoctored p/w R cerebellar hemorrhage with intraventricular extension, acute obstructive hydrocephalus s/p EVD placement, course c/b failed extubation 2/2 aspiration x 2, fluid overload. 24hr events: Agitation improved with higher dose Medications: Scheduled Meds: cloNIDine 0.3 mg Per NG tube Q8H oxyCODONE 5 mg Per NG tube Q6H YUSUF labetaloL 800 mg Per NG tube Q8H QUEtiapine 75 mg Per NG tube Nightly QUEtiapine 25 mg Oral Daily hydrALAZINE 100 mg Oral Q6H aspirin 81 mg Per NG tube Daily senna-docusate 2 tablet Per NG tube BID dilTIAZem 120 mg Per NG tube Q6H YUSUF simethicone 40 mg Oral 4 Times Daily terazosin 1 mg Per NG tube Nightly lisinopriL 40 mg Per NG tube Daily protein powder 1 Scoop Per NG tube TID piperacillin-tazobactam 3.375 g Intravenous Q8H ergocalciferoL (vitamin D2) 50,000 Units Per NG tube Weekly ipratropium-albuteroL 3 mL Nebulization Q4H sodium chloride 4 mL Nebulization Q4H heparin (porcine) 5,000 Units Subcutaneous Q8H [facility] lidocaine 1 patch Transdermal Q24H camphor-methyl salicyl-menthoL Topical (Top) BID Continuous Infusions: tube feeding diet 10 mL/hr at 05/07/23 0800 clevidipine 12 mg/hr (05/07/23 0800) dexmedeTOMIDine 1 mcg/kg/hr (05/07/23 0801) nitroGLYcerin 100 mcg/min (05/07/23 0900) PRN Meds:.iokfyn-ydohrzmw-nhcuujj DR AND sodium bicarbonate, potassium chloride in water ORpotassium chloride in water OR potassium chloride in water, haloperidol lactate, QUEtiapine, polyethylene glycoL (MIRALAX) oral powder AND bisacodyL AND bisacodyl EC AND lactulose AND lactulose AND magnesium citrate AND Tap water enema, fentaNYL (PF), acetaminophen, potassium chloride ER OR potassium chloride ER, labetaloL, enalaprilat, glucose 40% oral geL OR dextrose OR glucagon Vitals: Temp: [36.3 ??C (97.3 ??F)-37.5 ??C (99.5 ??F)] Heart Rate: [60-100] Resp: [15-24] BP: (89-154)/(58-103) SpO2: [92 %-100 %] Heart Rate from SpO2: [61 bpm-99 bpm] Physical Exam: Cons: NAD Cardiac: RRR S1S2 Pulm: CTAB, no W/R/R GI: Protuberant but soft, BS+ MSK: WWP, no C/C/E Neuro Exam: MS: AA, disoriented to place and year, language is fluent but confused CN: PERRL, EOMI, blink to threat bilaterally, FS, TM Motor: Normal bulk and tone throughout, 5/5 throughout I/Os: Intake/Output Summary (Last 24 hours) at 05/07/2023 0936 Last data filed at 05/07/2023 0800 Gross per 24 hour Intake 2756.8 ml Output 3900 ml Net -1143.2 ml Labs: Last 3 wbc, hgb, hct plt Recent Labs 05/07/23 0110 05/06/23 0030 05/05/23 0035 WBC 6.4 6.8 7.3 HGB 9.2* 9.6* 9.5* HCT 28.3* 26.3* 26.1* PLATELET 298 263 255 Last 3 Lytes Recent Labs 05/07/23 0110 05/06/23 1444 05/06/23 0030 05/05/23 1340 05/05/23 0525 05/05/23 0035 NA 142 -- 134* -- 130* 131* K 4.0 4.1 3.3* < > 3.3* 3.2* CL 109* -- 100 -- -- 100 CO2 22 -- 18* -- -- 17* BUN 33* -- 51* -- -- 63* CREATININE 1.85* -- 2.16* -- -- 2.56* < > = values in this interval not displayed. Last 3 LFTs Recent Labs 04/28/23 0120 04/23/23 0024 04/19/23 0035 AST 26 28 22 ALT 38 26 19 ALKPHOS 61 64 66 BILITOT 0.5 0.4 0.3 BILIDIR 0.3 0.2 0.1 Last Ca, Mg, Phos Recent Labs 05/07/23 0110 CALCIUM 9.8 PHOS 4.2 MAGNESIUM 0.84 Last 3 TFT Recent Labs 04/19/23 0035 TSH 0.74 Last 3 Lipids Recent Labs 05/07/23 0110 05/06/23 1050 05/06/23 0030 04/20/23 0110 04/19/23 0035 CHLPL -- -- -- -- 220 HDL -- -- -- -- 86 LDLDIRECT -- -- -- -- 129 TRIG 194 292 1,032 < > 78 < > = values in this interval not displayed. Last 3 HgbA1C Recent Labs 04/19/23 003 HA1C 6.0* Micro: - 04/29: Scx NRF Imaging/Studies: - I have reviewed all imaging for this admission. Assessment/Plan: Neuro - R cerebellar hemorrhage, likely HTNive, acute obstructive hydrocephalus s/p R frontal EVD placement now out, etoh use disorder. 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 Schedule 25mg qAM and 75mg qPM - Wean Precedex as tolerated - Tramadol scheduled, Oxy PRN for breakthrough - Fluoxetine 20mg daily CV - Aortic root dilation (4.5cm), aortic dissection uncertain if acute or chronic, resistant HTN - Vascular consult appreciated: strict impulse control for HR < 80, SBP < 120 - Diltiazem 120mg q6, Labetalol 800mg q8, lisinopril 40mg, terazosyn 1mg, Hydralazine uptitrate to 200mg q6. Add clonidine 0.3mg q8. - OP follow-up for aortic root dilation - Aspirin 81mg q12 - RA US negative bilaterally, urine metanephrines Pulm - 4L NC - Goal PaO2 > 60, paCO2 35-45, O2 sats > 92% - Ventilator liberation protocol - VAP precautions - CPAP at night GI - Dysphagia, diarrhea - Advance TF to goal - Resume bowel regimen - GI ppx with H2B FEN/ - Prerenal/MADISON OVI improving - Goal +/- 1L - Goal Na 135-145, K > 4, Mg > 1 - ICU potassium repletion protocol - Rebolledo for retention Heme - - goal Hgb > 7, INR < 1.5, Platelets > 10k - SCDs, SQH - RUE PICC-related thrombosis, repeat RUE duplex in 7 days Endo - - goal glucose 120-180 --> Accuchecks and ISS - A1C 6 - Urine metanephrines ID - afebrile, no leukocytosis - Zosyn day 7 renally dosed. - Reculture q72hr for temp > 101F --> UA, blood cx, sputum cx, CSF cx, CXR - acetaminophen PRN Core: Code status: FULL Dispo - ICU //////////////////////////////////////////////////////////////////////////////// //// Attestation: IS PATIENT CRITICALLY ILL ? Is there a high potential of sudden, clinically significant, or life threatening deterioration? No Is there a need for direct personal assessment and management to treat/prevent multiple vital organfailure/deterioration? No If this patient is not critically ill, the reason for continued hospitalization is n/a Tana Smith MD 05/07/2023 9:36 AM * Hua Hoang, MILLER APPRENTICE - 05/07/2023 5:59 AM EDT Respiratory Therapy NIV Note NIV Settings: NIV Mode: CPAP EPAP (cmH20): 10 PEEP/CPAP (cm H2O): 10 cm H20 FiO2 (%): 40 % O2 Bleed In (LPM): 0 L/min NIV Measurements: Resp: 16 Mve: 10.9 Leak (L/min): 1 L/min Vte: 647 SpO2: 98 % Laboratory: Lab Results Component Value Date/Time PHART 7.36 05/03/2023 12:28 PM HAH1WFA 29 (L) 05/03/2023 12:28 PM PO2ART 62 (L) 05/03/2023 12:28 PM [id number] 16.2 (L) 05/03/2023 12:28 PM BEART -9.2 (L) 05/03/2023 12:28 PM Last Chest X-ray: Results for orders placed during the hospital encounter of 04/18/23 XR Chest One View Narrative EXAMINATION: XR CHEST ONE VIEW CLINICAL HISTORY: volume assessment, considering extubation TECHNIQUE: 1 view of the chest COMPARISON: Chest radiograph 05/02/2023 FINDINGS: Support devices: * Endotracheal tube tip 4 cm from the nichole. * Right upper extremity PICC with tip projecting over the mid SVC. * Enteric tube tip is partially visualized, projecting over the gastric antrum. Persistently low lung volumes. Persistent left lower lobe consolidation. The lungs are otherwise clear. No pneumothorax. No large pleural effusion. Cardiomediastinal contours are largely obscured though appear stable. No interval osseous change. Impression Persistently low lung volumes. Continued left lower lobe consolidation consistent with atelectasis. Superimposed infection or inflammation is not excluded. I have personally reviewed the image(s) and the resident's interpretation and agree with the findings, Meet Anton MD at 05/04/2023 1:54 PM Thank you for letting us participate in the care of this patient. If you are a health care provider and have any questions regarding this report, please contact the number below. For patients who have questions please contact the health manager managed care that requested your imaging first. Current Medications: , Nebulized Medications: Albuterol & Ipratroprium, 3% Hypertonic Saline Skin Assessment: NIV Skin Assessment WDL: WDL Mepilex Applied: No Nares Assessment WDL: WDL Plan: Patient wore CPAP with minimal issues from ~2230 to 0515. Hua Hoang RCP * Beto Bravo RCP - 05/06/2023 4:50 PM EDT 05/06/23 1543 Oxygen Therapy O2 Device NC O2 Flow Rate (L/min) 4 L/min SpO2 96 % Resp 15 Pt on 4L laurie well Pt receives duoneb & 3%saline q4 B/S diminished Treatments laurie well Will continue to monitor pt 05/03 cxr IMPRESSION Persistently low lung volumes. Continued left lower lobe consolidation consistent with atelectasis. Superimposed infection or inflammation is not excluded. * Tana Smith MD - 05/06/2023 10:29 AM EDT ICU PROGRESS NOTE DOA: 04/18/2023 Room: [address] [place] [address] Length of Stay: 18 ICU Length of Stay 18d 3h Myla Acosta ( ) is a 67 y.o. male with h/o etoh use, undoctored p/w R cerebellar hemorrhage with intraventricular extension, acute obstructive hydrocephalus s/p EVD placement, course c/b failed extubation 2/2 aspiration x 2, fluid overload. 24hr events: Continued with agitation and difficulty controlling BP. Agitation improved with oxycodone. Medications: Scheduled Meds: hydrALAZINE 25 mg Per NG tube TID oxyCODONE 5 mg Per NG tube Q6H YUSUF labetaloL 800 mg Per NG tube Q8H QUEtiapine 25 mg Per NG tube Nightly aspirin 81 mg Per NG tube Daily senna-docusate 2 tablet Per NG tube BID dilTIAZem 120 mg Per NG tube Q6H YUSUF simethicone 40 mg Oral 4 Times Daily terazosin 1 mg Per NG tube Nightly lisinopriL 40 mg Per NG tube Daily protein powder 1 Scoop Per NG tube TID piperacillin-tazobactam 3.375 g Intravenous Q8H ergocalciferoL (vitamin D2) 50,000 Units Per NG tube Weekly ipratropium-albuteroL 3 mL Nebulization Q4H sodium chloride 4 mL Nebulization Q4H heparin (porcine) 5,000 Units Subcutaneous Q8H [facility] lidocaine 1 patch Transdermal Q24H camphor-methyl salicyl-menthoL Topical (Top) BID Continuous Infusions: clevidipine 16 mg/hr (05/06/23 1020) tube feeding diet Stopped (05/05/23 0330) dexmedeTOMIDine 0.5 mcg/kg/hr (05/06/23 1000) nitroGLYcerin 200 mcg/min (05/06/23 1000) PRN Meds:.yxpcgx-vjxnwzdr-vvfeiks DR AND sodium bicarbonate, fentaNYL (PF), potassium chloride in water OR potassium chloride in water OR potassium chloride in water, haloperidol lactate,QUEtiapine, polyethylene glycoL (MIRALAX) oral powder AND bisacodyL AND bisacodyl EC AND lactulose AND lactulose AND magnesium citrate AND Tap water enema, fentaNYL (PF), acetaminophen, potassium chloride ER OR potassium chloride ER, labetaloL, enalaprilat, glucose 40% oral geL OR dextrose OR glucagon Vitals: Temp: [36.7 ??C (98.1 ??F)-37.5 ??C (99.5 ??F)] Heart Rate: [60-87] Resp: [17-30] BP: (100-175)/(56-118) SpO2: [92 %-100 %] Heart Rate from SpO2: [60 bpm-86 bpm] Physical Exam: Cons: NAD Cardiac: RRR S1S2 Pulm: CTAB, no W/R/R GI: Protuberant but soft, BS+ MSK: WWP, no C/C/E Neuro Exam: MS: AA, disoriented to place and year, language is fluent but confused CN: PERRL, EOMI, blink to threat bilaterally, FS, TM Motor: Normal bulk and tone throughout, 5/5 throughout I/Os: Intake/Output Summary (Last 24 hours) at 05/06/2023 1029 Last data filed at 05/06/2023 1000 Gross per 24 hour Intake 3446.81 ml Output 9275 ml Net -5828.19 ml Labs: Last 3 wbc, hgb, hct plt Recent Labs 05/06/23 0030 05/05/23 0035 05/04/23 0200 WBC 6.8 7.3 8.2 HGB 9.6* 9.5* 8.6* HCT 26.3* 26.1* 26.3* PLATELET 263 255 238 Last 3 Lytes Recent Labs 05/06/23 0030 05/05/23 1340 05/05/23 0525 05/05/23 0035 05/04/23 0200 NA 134* -- 130* 131* 135 K 3.3* 3.7 3.3* 3.2* 3.6 CL 100 -- -- 100 103 CO2 18* -- -- 17* 18* BUN 51* -- -- 63* 71* CREATININE 2.16* -- -- 2.56* 2.94* Last 3 LFTs Recent Labs 04/28/23 0120 04/23/23 0024 04/19/23 0035 AST 26 28 22 ALT 38 26 19 ALKPHOS 61 64 66 BILITOT 0.5 0.4 0.3 BILIDIR 0.3 0.2 0.1 Last Ca, Mg, Phos Recent Labs 05/06/23 0030 CALCIUM 8.6 PHOS 4.5 MAGNESIUM 0.85 Last 3 TFT Recent Labs 04/19/23 0035 TSH 0.74 Last 3 Lipids Recent Labs 05/06/23 0030 05/03/23 0106 05/01/23 0040 04/20/23 0110 04/19/23 003 CHLPL -- -- -- -- 220 HDL -- -- -- -- 86 LDLDIRECT -- -- -- -- 129 TRIG 1,032 184 184 < > 78 < > = values in this interval not displayed. Last 3 HgbA1C Recent Labs 04/19/23 003 HA1C 6.0* Micro: - 04/29: Scx NRF Imaging/Studies: - I have reviewed all imaging for this admission. Assessment/Plan: Neuro - R cerebellar hemorrhage, likely HTNive, acute obstructive hydrocephalus s/p R frontal EVD placement now out, etoh use disorder. 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 Schedule 25mg qAM and 75mg qPM CV - Aortic root dilation (4.5cm), aortic dissection uncertain if acute or chronic, resistant HTN - Vascular consult appreciated: strict impulse control for HR < 80, SBP < 120 - Diltiazem 120mg q6, Labetalol 800mg q8, lisinopril 40mg, terazosyn, Hydralazine uptitrate to 100mg q8. Add clonidine 0.2mg q8. - OP follow-up for aortic root dilation - Aspirin 81ng q12 - RA US negative bilaterally Pulm - 4L NC - Goal PaO2 > 60, paCO2 35-45, O2 sats > 92% - Ventilator liberation protocol - VAP precautions GI - Dysphagia, diarrhea, elevated triglycerides may be spurious, repeat. Check lipase - TF at goal - Resume bowel regimen, add simethicone - GI ppx with H2B FEN/ - Prerenal/MADISON OVI improving - Goal net negative - Goal Na 135-145, K > 4, Mg > 1 - ICU potassium repletion protocol - Rebolledo for retention Heme - - goal Hgb > 7, INR < 1.5, Platelets > 10k - SCDs, SQH - RUE PICC-related thrombosis, repeat RUE duplex in 7 days Endo - - goal glucose 120-180 --> Accuchecks and ISS - A1C 6 - Urine metanephrines ID - afebrile, no leukocytosis - Zosyn day 6 renally dosed. - Reculture q72hr for temp > 101F --> UA, blood cx, sputum cx, CSF cx, CXR - acetaminophen PRN Core: Code status: FULL Dispo - ICU //////////////////////////////////////////////////////////////////////////////// //// Attestation: IS PATIENT CRITICALLY ILL ? Is there a high potential of sudden, clinically significant, or life threatening deterioration? YES Is there a need for direct personal assessment and management to treat/prevent multiple vital organfailure/deterioration? YES If this patient is not critically ill, the reason for continued hospitalization is n/a. PATIENT IS CRITICALLY ILL WITH THESE DIAGNOSES BEING MANAGED BY CCS TEAM: Mechanical ventilation I personally performed 30 minutes of aggregate critical care time exclusive of procedures and teaching. This includes time spent during direct patient evaluation and reassessment, interpreting diagnostic tests, directing life and/or organ supporting interventions and documentation on the unit. Tana Smith MD 05/06/2023 10:29 AM * Yemi Lora RCP - 05/06/2023 6:23 AM EDT Respiratory Care Non-Invasive Ventilation Note Indication: Other: Multiple failed extubations, keep pt recruited NIV Protocol: Yes NIV Settings: NIV Mode: CPAP EPAP (cmH20): 10 FiO2 (%): 40 % Interface: Mask: Face Mask Size: Large Skin Integrity: WDL Mepilex: No NIV Measurements: Resp: 26 Vte: 903 Mve: 15.9 Leak (L/min): 16 L/min SpO2: 96 % Lung sounds: Coarse Inhaled Medications: Duoneb Q4 3 % Q4 Assessment: PT received on NC 4 L/min, pt extubated during day, Pt compliant with NIV starting @ ~2300 and wore until ~0200. PT awake and on NC remainder of night. * Jaylin Turner RCP - 05/05/2023 3:20 PM EDT Respiratory Care Non-Invasive Ventilation Note Indication: Other: 2 failed extubations; Team wanted to encourage success. NIV Protocol: N/A NIV Settings: NIV Mode: CPAP FiO2 (%): 40 % Interface: Mask: Face Mask Size: Large Skin Integrity: WDL Mepilex: Yes NIV Measurements: Resp: 26 Vte: 463 Leak (L/min): 43 L/min SpO2: 92 % Lung sounds: Rhonchi and Coarse Inhaled Medications: Duoneb/ 3% Assessment: Myla Acotsa was extubated today after passing a modified SBT with a PEEP of 8. Initially extubated Directly to CPAP of 10 and 40%. He has a strong cough and copious secretions. Spenta few hours on CPAP then removed for a procedure. Patient did well on 2 liters oxygen. Is currentlyoff cpap but is ordered to wear it nocturnally to keep up lung recruitment. Patient can be very combative when irritated. Plan: Place on v60 cpap of 10 at night, titrate oxygen to patients needs. Respiratory Pager# [phone] * Angelia Paulino RD - 05/05/2023 3:15 PM EDT Nutrition Progress Note Myla 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 male with unknown pmhx (no PCP or listed medications) who presents asa transfer from an OSH for evaluation of a right cerebellar IPH. Now s/p R EVD placement 04/17 givenhydrocephalus. Reason for Assessment: ICU Tube Feeding, Follow-up Nutrition Recommendations: Peptamen 1.5 with a goal rate of 50 ml per hour plus 3 scoops of protein powder daily. This rate is calculated to compensate for unplanned time off feedings due to potential procedures, etc. At goal, this will provide: Peptamen 1.5 Total Volume Per Day: 1000 mL Scoops of Protein: 3 Calories per Day: 1575 Protein per Day: 86 g Free Water mL per Day: 922 % RDI: 100 % Monitor hydration status on above TFs as they are concentrated. Pt may need additional fluids depending on IVFs, med flushes, p.o. Intake, etc. Daily weights. Mag and Phos on daily labs. BG goal 140-180 in critical care. I was able to discuss plan with provider [place] [id number] team . Current Nutrition Regimen: Active Orders Diet NPO diet (Give Meds) Frequency: Effective Now Number of Occurrences: Until Specified All Active TF Orders: Tubefeeding Orders (From admission, onward) Start Dose/Rate Route Frequency Ordered Stop 05/04/23 1215 tube feeding diet 1,000 mL Small Bore, Weighted Tube CONTINUOUS 05/04/23 1127 Average tube feeding provision over the past 2 days; 868 mL vs daily goal volume of 1000 mL formula(86% of goal) Average protein powder provision over the past 2 days; 3 scoops vs daily goal of 3 scoops (100% of goal) Tolerance or barriers to meeting needs: hyponatremic. Otherwise tolerating fair- good. Held today for extubation Assessment: Lab Results Component Value Date NA 130 (L) 05/05/2023 K 3.7 05/05/2023 CL 100 05/05/2023 CO2 17 (L) 05/05/2023 BUN 63 (H) 05/05/2023 CREATININE 2.56 (H) 05/05/2023 ESTGFR 27 (L) 05/05/2023 MAGNESIUM 0.93 05/05/2023 CALCIUM 8.2 (L) 05/05/2023 PHOS 4.1 05/05/2023 AST 26 04/28/2023 ALT 38 04/28/2023 ALKPHOS 61 04/28/2023 BILITOT 0.5 04/28/2023 BILIDIR 0.3 04/28/2023 TRIG 184 05/03/2023 HA1C 6.0 (H) 04/19/2023 25OHVITD 13 (L) 04/29/2023 IRON 25 (L) 04/29/2023 No results found for: POCGLU Patient Lines/Drains/Airways Status Active Nutritional LDAs Name Placement date Placement time Site Days Naso/Oral Tube 04/23/23 1559 small bore weighted ([place]) right nostril 04/23/23 1559 right nostril 12 PIV 05/02/232053 20 gauge metacarpal vein (top of hand), left 05/02/232053 -- 3 PICC Line 04/20/23 1410 Triple Lumen 5 Fr brachial vein, right 04/20/23 1410 -- 15 Urethral Catheter 04/24/23 1401 04/24/23 1401 -- 11 Pressure Injury 05/02/23 other (see comments) Stage 1 05/02/23 -- -- 3 Oxygen Therapy / Airway Device: Nasal cannula Shift Pressure Injury Prevention Occiput: No Injury Thoracic Spine: No Injury Sacral: No Injury Ischial - left: No Injury Ischial - right: No Injury Heel - left: No Injury Heel - right: No Injury Elbow - left: No Injury Elbow - right: No Injury Device Sites: BP Cuff, ECG Leads, ETT, rebolledo, IV sites, O2 sat monitor, oxygen tubing, SCD's / venodynes, wrist restraints Other Sites: DHT Last Bowel Movement: 05/04/23 Intake/Output Summary (Last 24 hours) at 05/05/2023 1515 Last data filed at 05/05/2023 1400 Gross per 24 hour Intake 4310.88 ml Output 4575 ml Net -264.12 ml Relevant medications: Continuous tube feeding diet Stopped (05/05/23 0330) dexmedeTOMIDine 1.4 mcg/kg/hr (05/05/23 1442) nitroGLYcerin 200 mcg/min (05/05/23 1433) Scheduled aspirin 81 mg Per NG tube Daily QUEtiapine 12.5 mg Per NG tube Nightly senna-docusate 2 tablet Per NG tube BID dilTIAZem 120 mg Per NG tube Q6H YUSUF simethicone 40 mg Oral 4 Times Daily terazosin 1 mg Per NG tube Nightly metoproloL tartrate 50 mg Oral Q6H YUSUF lisinopriL 40 mg Per NG tube Daily protein powder 1 Scoop Per NG tube TID piperacillin-tazobactam 3.375 g Intravenous Q8H ergocalciferoL (vitamin D2) 50,000 Units Per NG tube Weekly ipratropium-albuteroL 3 mL Nebulization Q4H sodium chloride 4 mL Nebulization Q4H heparin (porcine) 5,000 Units Subcutaneous Q8H YUSUF lidocaine 1 patch Transdermal Q24H camphor-methyl salicyl-menthoL Topical (Top) BID PRN QUEtiapine, polyethylene glycoL (MIRALAX) oral powder AND bisacodyL AND bisacodyl EC AND lactulose AND lactulose AND magnesium citrate AND Tap water enema, fentaNYL (PF), acetaminophen, potassium chloride ER OR potassium chloride ER, labetaloL, enalaprilat, glucose 40% oral geL OR dextrose OR glucagon Anthropometrics: Admit Weight: 111.8 kg Estimated body mass index is 41.42 kg/m?? as calculated from the following: Height as of this encounter: 174 cm (5' 8.5). Weight as of this encounter: 125.4 kg (276 lb 7.3 oz). [place] Body Weight (IBW) (kg): 71.37 Wt Readings from Last 10 Encounters: 05/03/23 125.4 kg (276 lb 7.3 oz) Patient Vitals for the past 168 hrs: Weight 05/03/23 0600 125.4 kg (276 lb 7.3 oz) 05/02/23 0600 126.3 kg (278 lb 7.1 oz) 05/01/23 0500 122.7 kg (270 lb 8.1 oz) 04/29/23 0523 118.8 kg (261 lb 14.5 oz) Weight Source: Bed Estimated / Assessed Needs: Fluid Requirements: Estimated Fluid Requirement Method: Weight Based Method Weight Based Method: 30 Weight Based Calculation: 2142 mL Metabolic cart study: 1820 kcals Kcal / K - 1785 Kcal (20 Kcal/Kg - 25 Kcal/Kg) Estimated Protein Needs: 86 g - 107 g (1.2 g/Kg - 1.5 g/Kg) Nutrition intake and intake history / interview: 05/04: Propofol off. TF at goal. Hyponatremic. Extubated again today. 05/02: Propofol rate decreasing, will increase kcal from TF. 04/30: TF on APR hold. Propofol went up quite a bit. 04/27: Extubated and re-intubated. TF presently off. On small amt of propofol and javon. Multiple BM yesterday. Lasix drip. GFR <60. Met cart study 1820 kcals. 04/25: TF was off/on hold this morning due to TF formula not being available per flowsheet - checkedunit storage - plenty of Pep AF in top drawer. Pt back from CT scan and TF reportedly restarted. NoBM since 04/21. Phos and Na slightly low. 04/23: Consulted again for TF. Prior goal remains appropriate for now - advance to goal. Off propofol. Has small bore feeding tube. Needs to move bowels. NPO per TREASURY CONSULTANT. 04/19: Re-intubated. TF at 25 mL/hr today. On low dose propofol. No BM this admission. 04/17: Consulted for TF recommendations. May extubate tomorrow. On some propofol. On alcohol withdrawal protocol - thiamine, folic acid and Thera M ordered. Nutrition Focused Physical Exam: Not performed Reason NFPE Not Performed: Not indicated. Malnutrition Diagnosis: Not identified (Lauryn et al, JPEN J Parenteral Enteral Nutr. 2012 June; 36(3): 273-83) Nutrition to continue to follow up while inpatient Thank you, Angelia Paulino RDN, CNSC, LD Clinical Nutrition * Tana Smith MD - 05/05/2023 11:09 AM EDT ICU PROGRESS NOTE DOA: 04/18/2023 Room: [address] [place] [address]A Length of Stay: 17 ICU Length of Stay 17d 4h Myla Acosta ( ) is a 67 y.o. male with h/o etoh use, undoctored p/w R cerebellar hemorrhage with intraventricular extension, acute obstructive hydrocephalus s/p EVD placement, course c/b failed extubation 2/2 aspiration x 2, fluid overload. 24hr events: Received extra Seroquel for agitation. Medications: Scheduled Meds: aspirin 81 mg Per NG tube Daily QUEtiapine 12.5 mg Per NG tube Nightly senna-docusate 2 tablet Per NG tube BID dilTIAZem 120 mg Per NG tube Q6H YUSUF simethicone 40 mg Oral 4 Times Daily terazosin 1 mg Per NG tube Nightly metoproloL tartrate 50 mg Oral Q6H YUSUF lisinopriL 40 mg Per NG tube Daily protein powder 1 Scoop Per NG tube TID piperacillin-tazobactam 3.375 g Intravenous Q8H ergocalciferoL (vitamin D2) 50,000 Units Per NG tube Weekly ipratropium-albuteroL 3 mL Nebulization Q4H chlorhexidine 15 mL Oral BID famotidine 20 mg Per NG tube BID sodium chloride 4 mL Nebulization Q4H heparin (porcine) 5,000 Units Subcutaneous Q8H YUSUF lidocaine 1 patch Transdermal Q24H camphor-methyl salicyl-menthoL Topical (Top) BID Continuous Infusions: tube feeding diet Stopped (05/05/23 0330) dexmedeTOMIDine 1.7 mcg/kg/hr (05/05/23 1013) nitroGLYcerin 200 mcg/min (05/05/23 1013) propofoL Stopped (05/04/23 0556) PRN Meds:.QUEtiapine, polyethylene glycoL (MIRALAX) oral powder AND bisacodyL AND bisacodylEC AND lactulose AND lactulose AND magnesium citrate AND Tap water enema, fentaNYL (PF), acetaminophen, propofoL AND propofoL, potassium chloride ER OR potassium chloride ER, l abetaloL, enalaprilat, glucose 40% oral geL OR dextrose OR glucagon Vitals: Temp: [37 ??C (98.6 ??F)-37.4 ??C (99.3 ??F)] Heart Rate: [54-83] Resp: [16-29] BP: (105-142)/(55-105) SpO2: [90 %-98 %] Heart Rate from SpO2: [48 bpm-82 bpm] Physical Exam: Cons: NAD, Cardiac: RRR S1S2 Pulm: CTAB, no W/R/R GI: S/NT/ND, BS+ MSK: WWP, no C/C/E Neuro Exam: MS: Eyes open to voice, following commands CN: PERRL, EOMI, blink to threat bilaterally, +c/+g Motor: Normal bulk and tone throughout, 5/5 throughout I/Os: Intake/Output Summary (Last 24 hours) at 05/05/2023 1109 Last data filed at 05/05/2023 1022 Gross per 24 hour Intake 4441.88 ml Output 3200 ml Net 1241.88 ml Labs: Last 3 wbc, hgb, hct plt Recent Labs 05/05/23 0035 05/04/23 0200 05/03/23 0106 WBC 7.3 8.2 9.9* HGB 9.5* 8.6* 9.2* HCT 26.1* 26.3* 27.4* PLATELET 255 238 277 Last 3 Lytes Recent Labs 05/05/23 0525 05/05/23 0035 05/04/23 0200 05/03/23 0106 NA 130* 131* 135 135 K 3.3* 3.2* 3.6 4.4 CL -- 100 103 105 CO2 -- 17* 18* 17* BUN -- 63* 71* 67* CREATININE -- 2.56* 2.94* 2.64* Last 3 LFTs Recent Labs 04/28/23 0120 04/23/23 0024 04/19/23 0035 AST 26 28 22 ALT 38 26 19 ALKPHOS 61 64 66 BILITOT 0.5 0.4 0.3 BILIDIR 0.3 0.2 0.1 Last Ca, Mg, Phos Recent Labs 05/05/23 0035 CALCIUM 8.2* PHOS 4.1 MAGNESIUM 0.93 Last 3 ProBNP, Trop, CK Recent Labs 04/28/23 1811 CK 74 Last 3 TFT Recent Labs 04/19/23 0035 TSH 0.74 Last 3 Lipids Recent Labs 05/03/23 0106 05/01/23 0040 04/28/23 0120 04/20/23 0110 04/19/23 0035 CHLPL -- -- -- -- 220 HDL -- -- -- -- 86 LDLDIRECT -- -- -- -- 129 TRIG 184 184 126 < > 78 < > = values in this interval not displayed. Last 3 HgbA1C Recent Labs 04/19/23 0035 HA1C 6.0* Ventilator settings: PS 5/8 40% Micro: - 04/29: Scx NRF Imaging/Studies: - I have reviewed all imaging for this admission. Assessment/Plan: Neuro - R cerebellar hemorrhage, likely HTNive, acute obstructive hydrocephalus s/p R frontal EVD placement now out, etoh use disorder. 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 Schedule 12.5 seroquel for agitation, PRN 25mg. CV - Aortic root dilation (4.5cm), aortic dissection uncertain if acute or chronic - Vascular consult appreciated: strict impulse control for HR < 80, SBP < 120 - Diltiazem 90mg q6, metoprolol 50mg q6, lisinopril 40mg, terazosyn - OP follow-up for aortic root dilation - Aspirin 81ng q12 Pulm - Re-intubated for hypoxemic respiratory failure, total body fliud overload - Goal PaO2 > 60, paCO2 35-45, O2 sats > 92% - Ventilator liberation protocol - VAP precautions GI - Dysphagia, diarrhea, gaseous distention - TF at goal - Resume bowel regimen, add simethicone - GI ppx with H2B - Pull flexiseal when output < 250cc in 24 hrs FEN/ - Prerenal/[place] OVI improving - Goal net negative - Goal Na 135-145, K > 4, Mg > 1 - ICU potassium repletion protocol - Rebolledo for retention Heme - - goal Hgb > 7, INR < 1.5, Platelets > 10k - SCDs, SQH - RUE duplex for concern for PICC-related thrombosis Endo - - goal glucose 120-180 --> Accuchecks and ISS - A1C 6 ID - afebrile, no leukocytosis - Zosyn day 5 renally dosed. - Reculture q72hr for temp > 101F --> UA, blood cx, sputum cx, CSF cx, CXR - acetaminophen PRN Core: Code status: FULL Dispo - ICU //////////////////////////////////////////////////////////////////////////////// //// Attestation: IS PATIENT CRITICALLY ILL ? Is there a high potential of sudden, clinically significant, or life threatening deterioration? YES Is there a need for direct personal assessment and management to treat/prevent multiple vital organfailure/deterioration? YES If this patient is not critically ill, the reason for continued hospitalization is n/a. PATIENT IS CRITICALLY ILL WITH THESE DIAGNOSES BEING MANAGED BY CCS TEAM: Mechanical ventilation I personally performed 30 minutes of aggregate critical care time exclusive of procedures and teaching. This includes time spent during direct patient evaluation and reassessment, interpreting diagnostic tests, directing life and/or organ supporting interventions and documentation on the unit. Tana Smith MD 05/05/2023 11:09 AM * Chantal Davis RT - 05/04/2023 10:04 PM EDT AMV Protocol: Yes SBT Protocol: Yes SBT: Modified SBT 0/8 (team aware) Vent Settings: Ventilator Mode: PS/CPAP PEEP Set: 8 FiO2: 40 % PSV: (S) 5 Ventilator Measurements: Resp: 23 Vt Spontaneous: 339 Ve: 14.2 SpO2: 94 % EtCO2: 27 mmHg Airway: 8.0 @ 22 cm at the Teeth. Skin Integrity: WDL Nebulized Medications: Albuterol & Ipratroprium, 3% Hypertonic Saline Breath Sounds: Coarse Secretions: Small clear/ pale thin Assessment / Events / Plan of the Day: Received patient intubated and mechanically ventilated on PS8/8 40%. IPV was performed once. Patient was agitated and kept moving head side to side disconnecting IPV. A modified SBT 0/8 was performed and passed. Patient was placed back into settings noted above. Plan: Continue to support patient in AMV protocol. RT José Miguel * Marion Vitale MD - 05/04/2023 1:26 PM EDT Hypertension-Nephrology Inpatient Follow-up Myla Acosta [id number] 1955 ID: 67 y.o. old male seen for OVI. Per Primary team Attending, Dr Tana Smith, BP management will be deferred to vascular surgery and cardiology in setting of his recent aortic dissection. Nephrology to sign off as discussed with Dr. Smith This case was staffed with Dr. Brett Vitale MD Nephrology & Hypertension Fellow * Jaylin Turner, [facility] - 05/04/2023 11:29 AM EDT Respiratory Care Mechanical Ventilation Note Protocol: AMV SBT: Yes Modified SBT Peep 8 Per MD Verbal order. SPO2 Goal: Saturation Goal: > 92% Vent Mode: Pressure Support Circuit: HEATED Vent Mode: Settings: Set PEEP (cm H2O): (S) 8 IP 8 Fi02: 40% Measurements: Tidal Volume Measured Exp.: 406 Mean Airway Pressure (cm H2O): 9.4 Minute Ventilation Total Exhaled(L/min): 10.4 Resp: 24 SpO2: 93 % ETCO2 (mmHg): 30 mmHg Airway: Size: 8.0 ETT Depth: 22 cm @ teeth/gums. Cuff Pressure: MOV mmHg Medications: Duoneb Hypertonic 3% Lung sounds: Clear and Diminished intermittent rhonchi Secretions: Small amount of Thin Clear and White. 24 hr Events: SBT Modified with 0/8, Passed today. Assessment: Myla Acosta has an improved mental status. His oxygenation has been weaned and hasimproved. Weaned from the morning 60% Fi02 and 10 of PEEP to 8 and 40%. IPV performed x2. 3% given with treatments. Myla Acosta demonstrates strong cough. Diuresing him has much improved his oxygenation needs. Plan: if improvements are maintained extubation tomorrow, possibly onto NIV BIPAP. Respiratory Pager# [phone] * Tana Smith MD - 05/04/2023 10:42 AM EDT ICU PROGRESS NOTE DOA: 04/18/2023 Room: [address] [place] [address] Length of Stay: 16 ICU Length of Stay 16d 4h Myla Acosta ( ) is a 67 y.o. male with h/o etoh use, undoctored p/w R cerebellar hemorrhage with intraventricular extension, acute obstructive hydrocephalus s/p EVD placement, course c/b failed extubation 2/2 aspiration x 2, fluid overload. 24hr events: Antihypertensives adjusted per cardiovascular medicine. Medications: Scheduled Meds: simethicone 40 mg Oral 4 Times Daily metOLazone 10 mg Oral Q12H terazosin 1 mg Per NG tube Nightly metoproloL tartrate 50 mg Oral Q6H YUSUF dilTIAZem 90 mg Per NG tube Q6H YUSUF lisinopriL 40 mg Per NG tube Daily aspirin 81 mg Oral Daily protein powder 1 Scoop Per NG tube TID piperacillin-tazobactam 3.375 g Intravenous Q8H ergocalciferoL (vitamin D2) 50,000 Units Per NG tube Weekly ipratropium-albuteroL 3 mL Nebulization Q4H chlorhexidine 15 mL Oral BID famotidine 20 mg Per NG tube BID tamsulosin 0.4 mg Oral Daily sodium chloride 4 mL Nebulization Q4H heparin (porcine) 5,000 Units Subcutaneous Q8H YUSUF lidocaine 1 patch Transdermal Q24H camphor-methyl salicyl-menthoL Topical (Top) BID Continuous Infusions: tube feeding diet 50 mL/hr at 05/04/23 0600 clevidipine 16 mg/hr (05/04/23 0901) dexmedeTOMIDine 1.4 mcg/kg/hr (05/04/23 1009) nitroGLYcerin 50 mcg/min (05/04/23 1023) propofoL Stopped (05/04/23 0556) PRN Meds:.senna-docusate, polyethylene glycoL (MIRALAX) oral powder AND bisacodyL AND bisacodyl EC AND lactulose AND lactulose AND magnesium citrate AND Tap water enema, fentaNYL (PF), acetaminophen, QUEtiapine, propofoL AND propofoL, potassium chloride ER OR potassium chloride ER, labetaloL, enalaprilat, glucose 40% oral geL OR dextrose OR glucagon Vitals: Temp: [37 ??C (98.6 ??F)-37.7 ??C (99.8 ??F)] Heart Rate: [49-66] Resp: [13-25] BP: (98-176)/(49-160) SpO2: [91 %-98 %] Heart Rate from SpO2: [49 bpm-66 bpm] Physical Exam: Cons: NAD, Cardiac: RRR S1S2 Pulm: CTAB, no W/R/R GI: S/NT/ND, BS+ MSK: WWP, no C/C/E Neuro Exam: MS: Eyes open to voice, following commands CN: PERRL, EOMI, blink to threat bilaterally, +c/+g Motor: Normal bulk and tone throughout, 5/5 throughout I/Os: Intake/Output Summary (Last 24 hours) at 05/04/2023 1044 Last data filed at 05/04/2023 1000 Gross per 24 hour Intake 3194.68 ml Output 2900 ml Net 294.68 ml Labs: Last 3 wbc, hgb, hct plt Recent Labs 05/04/23 0200 05/03/23 0106 05/02/23 0105 WBC 8.2 9.9* 8.0 HGB 8.6* 9.2* 9.9* HCT 26.3* 27.4* 30.5* PLATELET 238 277 240 Last 3 Lytes Recent Labs 05/04/23 0200 05/03/23 0106 05/02/23 0105 NA 135 135 137 K 3.6 4.4 4.2 CL 103 105 107 CO2 18* 17* 20* BUN 71* 67* 63* CREATININE 2.94* 2.64* 2.69* Last 3 LFTs Recent Labs 04/28/23 0120 04/23/23 0024 04/19/23 0035 AST 26 28 22 ALT 38 26 19 ALKPHOS 61 64 66 BILITOT 0.5 0.4 0.3 BILIDIR 0.3 0.2 0.1 Last Ca, Mg, Phos Recent Labs 05/04/23 0200 CALCIUM 8.4* PHOS 4.8* MAGNESIUM 1.01 Last 3 ProBNP, Trop, CK Recent Labs 04/28/23 1811 CK 74 Last 3 TFT Recent Labs 04/19/23 0035 TSH 0.74 Last 3 Lipids Recent Labs 05/03/23 0106 05/01/23 0040 04/28/23 0120 04/20/23 0110 04/19/23 0035 CHLPL -- -- -- -- 220 HDL -- -- -- -- 86 LDLDIRECT -- -- -- -- 129 TRIG 184 184 126 < > 78 < > = values in this interval not displayed. Last 3 HgbA1C Recent Labs 04/19/23 0035 HA1C 6.0* Ventilator settings: PS 10/8 45% Micro: - 04/29: Scx NRF Imaging/Studies: - I have reviewed all imaging for this admission. Assessment/Plan: Neuro - R cerebellar hemorrhage, likely HTNive, acute obstructive hydrocephalus s/p R frontal EVD placement now out, etoh use disorder. 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 Schedule 12.5 seroquel for agitation, PRN 25mg. CV - Aortic root dilation (4.5cm), aortic dissection uncertain if acute or chronic - Vascular consult appreciated: strict impulse control for HR < 80, SBP < 120 - Diltiazem 90mg q6, metoprolol 50mg q6, lisinopril 40mg, terazosyn - OP follow-up for aortic root dilation - Aspirin 81ng q12 Pulm - Re-intubated for hypoxemic respiratory failure, total body fliud overload - Goal PaO2 > 60, paCO2 35-45, O2 sats > 92% - Ventilator liberation protocol - VAP precautions GI - Dysphagia, diarrhea, gaseous distention - TF at goal - Resume bowel regimen, add simethicone - GI ppx with H2B - Pull flexiseal when output < 250cc in 24 hrs FEN/ - Prerenal/MADISON OVI improving - Goal net negative - Goal Na 135-145, K > 4, Mg > 1 - ICU potassium repletion protocol - Nephrology consult appreciated Heme - - goal Hgb > 7, INR < 1.5, Platelets > 10k - SCDs, SQH Endo - - goal glucose 120-180 --> Accuchecks and ISS - A1C 6 ID - afebrile, no leukocytosis - Zosyn day 4 renally dosed. - Reculture q72hr for temp > 101F --> UA, blood cx, sputum cx, CSF cx, CXR - acetaminophen PRN Core: Code status: FULL Dispo - ICU //////////////////////////////////////////////////////////////////////////////// //// Attestation: IS PATIENT CRITICALLY ILL ? Is there a high potential of sudden, clinically significant, or life threatening deterioration? YES Is there a need for direct personal assessment and management to treat/prevent multiple vital organfailure/deterioration? YES If this patient is not critically ill, the reason for continued hospitalization is n/a. PATIENT IS CRITICALLY ILL WITH THESE DIAGNOSES BEING MANAGED BY [facility] TEAM: Mechanical ventilation I personally performed 30 minutes of aggregate critical care time exclusive of procedures and teaching. This includes time spent during direct patient evaluation and reassessment, interpreting diagnostic tests, directing life and/or organ supporting interventions and documentation on the unit. Tana Smith MD 05/04/2023 10:44 AM * Franchesca Osorio RN - 05/04/2023 4:07 AM EDT OUTCOME EVALUATION NOTE: OUTCOME SUMMARY: Patient intubated/ sedated. Propofol at 10mcg, Dex at 1mcg/kg/min. Alert, tracking, uncooperative, appears restless and attempting to hit RN. B/L wrist restraints maintained. Flexiseal not draining properly. On assessment, rectal tube dislodged and unable to stay in place, likely d/t patient straining. Rectal tube removed. Incontinence pad in place. Dexmedetomidine dose titrated up as needed. PRNSeroquel and enalapril administered overnight. PLAN MOVING FORWARD: Neuro checks Q4H SBP goal 90-120 VS q 1H Pulse checks Q4hrs INDIVIDUALIZED FALL PREVENTION INTERVENTIONS: Patient-specific fall risk factors per assessment: [current deficits]: Lines/drains/cognitively impaired on IV sedation Assistance [level of assistance required for transfers and ambulation]: Dependent/Bedrest Supervision [direct monitoring required during toileting and ADLs]: Direct supervision Surveillance [continuous indirect monitoring]: ICU monitoring Patient-specific fall prevention interventions for sensory deficits provided, if applicable: [X] N/A * Chantal Davis RT - 05/03/2023 11:18 PM EDT AMV Protocol: Yes SBT Protocol: Yes SBT: Not performed - PEEP 10 Vent Settings: Ventilator Mode: PS/CPAP PEEP Set: 10 FiO2: 59 % PSV: 12 Ventilator Measurements: Resp: 18 Vt Spontaneous: 439 Ve: 10.1 SpO2: 96 % EtCO2: 31 mmHg Airway: 8.0 @ 22 cm at the Teeth. Skin Integrity: WDL Nebulized Medications: Albuterol & Ipratroprium, 3% Hypertonic Saline Breath Sounds: Clear Assessment / Events / Plan of the Day: Received patient intubated and mechanically ventilated on PS12/10 60%. No vent changes were made during this shift. Plan: Continue to support patient in AMV protocol. Wean as tolerated. Airway clearance as needed RT José Miguel * Shawn Joshi MD - 05/03/2023 6:02 PM EDT Images from the original note were not included. CARDIOVASCULAR MEDICINE PROGRESS NOTE Primary Care Provider: Fransico Remy MD Referring: Nayana Blackwood MD [address] [place] [address] [place] [address] Myla 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 male who is here for ICH initally found to have type B dissection on headand neck CTA as an unexpected finding on CT scan. His course has been complicated by acute obstructive hydrocephalus status post EVD placement (removed 05/02/2023). Failed extubation due to aspiration x 2, and acute kidney injury. Given his type B aortic dissection extending from his subclavicular to external iliac of unknown chronicity vascular surgery has recommended a heart rate under 80 bpm and systolic blood pressure under 120 mmHg. Currently the patient is on amlodipine 10 mg daily, diltiazem 60 mg every 6 hours, Ivabradine 7.5 mg twice daily, lisinopril 40 mg daily, Flomax 0.4 mg daily, Lasix 120 mg IV given x 2 today, metolazone 10 mg twice daily and his first dose of carvedilol at 25 mg twice daily was started at noon. He remains on propofol and Precedex. Clevidipine at 16 mg/hr (as of 11:20 am today) Since midnight his systolic blood pressure has ranged from 96-125. His heart rate range has been 55-65 in sinus rhythm with no overt arrhythmias detected. Currently intubated and sedated with his at bedside MEDICATIONS: Scheduled Meds: amLODIPine 10 mg Per NG tube Daily carvediloL 25 mg Per NG tube Q12H simethicone 40 mg Oral 4 Times Daily metOLazone 10 mg Oral Q12H lisinopriL 40 mg Per NG tube Daily dilTIAZem 60 mg Per NG tube Q6H YUSUF aspirin 81 mg Oral Daily protein powder 1 Scoop Per NG tube TID piperacillin-tazobactam 3.375 g Intravenous Q8H ivabradine 7.5 mg Oral BID ergocalciferoL (vitamin D2) 50,000 Units Per NG tube Weekly ipratropium-albuteroL 3 mL Nebulization Q4H chlorhexidine 15 mL Oral BID famotidine 20 mg Per NG tube BID tamsulosin 0.4 mg Oral Daily sodium chloride 4 mL Nebulization Q4H heparin (porcine) 5,000 Units Subcutaneous Q8H YUSUF lidocaine 1 patch Transdermal Q24H camphor-methyl salicyl-menthoL Topical (Top) BID Continuous Infusions: clevidipine 16 mg/hr (05/03/23 1000) dexmedeTOMIDine 1 mcg/kg/hr (05/03/23 1000) nitroGLYcerin Stopped (05/03/23 0945) tube feeding diet 46 mL/hr at 05/03/23 0600 propofoL 30 mcg/kg/min (05/03/23 1000) PRN Meds:.senna-docusate, polyethylene glycoL (MIRALAX) oral powder AND bisacodyL AND bisacodyl EC AND lactulose AND lactulose AND magnesium citrate AND Tap water enema, fentaNYL (PF), acetaminophen, QUEtiapine, propofoL AND propofoL, potassium chloride ER OR potassium chloride ER, labetaloL, enalaprilat, glucose 40% oral geL OR dextrose OR glucagon EXAMINATION: Last value Range last 24 hrs Temperature Temp: 37.4 ??C (99.3 ??F) Temp: [37 ??C (98.6 ??F)-37.4 ??C (99.4 ??F)] Heart Rate Heart Rate: 58 Heart Rate: [54-67] Blood Pressure BP: 124/55 BP: (102-124)/(49-77) Respiratory Rate Resp: 23 Resp: [12-26] SpO2 SpO2: 93 % SpO2: [88 %-98 %] Ill appearing, intubated, Dobbhoff tube in place Skin: warm and dry. HEENT: benign Neck: Carotid upstrokes and amplitudes normal. No JVD. Chest: Coarse Cor: Normal S1 and S2. No murmurs, gallops, rubs, thrills, lifts, heaves. Abdomen: distended, hypoactive bowel sounds Extremities: 2+ bilateral edema. Warm bilaterally. 2+ pedal pulses on right, trace pedal pulse on left observed--dopplerable per nursing this morning. Neuro: sedated, responsive to pain LABS: Lab Results Component Value Date WBC 9.9 (H) 05/03/2023 HGB 9.2 (L) 05/03/2023 HCT 27.4 (L) 05/03/2023 PLATELET 277 05/03/2023 CHLPL 220 04/19/2023 TRIG 184 05/03/2023 HDL 86 04/19/2023 LDLDIRECT 129 04/19/2023 ALT 38 04/28/2023 AST 26 04/28/2023 NA 135 05/03/2023 K 4.4 05/03/2023 CL 105 05/03/2023 CREATININE 2.64 (H) 05/03/2023 BUN 67 (H) 05/03/2023 CO2 17 (L) 05/03/2023 TSH 0.74 04/19/2023 INR 1.1 04/23/2023 GLUCFASTING 125 (H) 04/19/2023 HA1C 6.0 (H) 04/19/2023 MICROALBUR <3.0 04/29/2023 CTA Chest, abdomen, pelvis 04/22/23: IMPRESSION 1. 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 2. No active extravasation, however , there is some apparent high density within a trace left pleural fluid collection possibly hemothorax and raises concern for early aneurysm leak/rupture into the pleural space. 3. Fusiform dilatation of the descending thoracic aorta measuring up to 4.7-4.8 cm. In maximal diameter IMPRESSION: 1. Type B aortic dissection 2. Hypertension and tachycardia--requiring multiple agents for control 3. Thoracic aortic dilation. Otherwise structurally normal heart. 4. Longstanding hypertension given LVH seen on echo PLAN: - Agree with nephrology recommendation to discontinue the amlodipine - Stop the Clevidipine and use diltiazem alone (as too many calcium channel blockers are in use), keep diltiazem and titrate up as needed for HR/BP control within the parameters of SBP under 120 mmHgand HR under 80 bpm. - Change from coreg to metoprolol which will have less alpha antagonist effect, start with metoprolol 50 mg q 6 hours (ok to start at midnight given last dose of coreg was at noon) -Stop Ivabradine (prefer to acheve HR control with metoprolol) - Agree with ongoing diuresis with a goal of being net negative. This patient was seen and examined with Dr. Joshi as a cardiovascular medicine consult. The cardiology consult service will continue to follow. Sarah Beth Hartmann APRN 05/03/2023 Cardiovascular Attending Note I shared this visit with Sarah Beth Hartmann APRN. I performed and supplemented the history, physical examination, and interval ROS with my own assessment and plan of care. My role was to review and update the management of the active cardiovascular issues and to engage the patient in the medical decision-making. I constructed the plan of care, as detailed in the note and addressed the patient's questions. Shawn Joshi M.D. * Marion Vitale MD - 05/03/2023 3:20 PM EDT Hypertension-Nephrology Inpatient Follow-up Myla Acosta [id number] 1955 ID: 67 y.o. old male seen for OVI. Interval History: Patient intubated and sedated in the ICU with at bedside. Today, pt's kidney function remains stable, his urine output is adequate reflecting signs of renal recovery. Patient was started on Clevidipine drip yesterday by primary team and nitro drip was dced and metolazone was resumed. As he is on too many CCB now, we suggested to discontinue norvas and start him onterazosin instead. In setting of worsening acidosis, we suggested repeat VBG Physical Examination: Last value 24 Hour Temperature Range Temp: [37 ??C (98.6 ??F)-37.4 ??C (99.4 ??F)] 12 Hour Heart Rate Range Heart Rate: [49-59] 24 Hour Blood Pressure Range BP: (102-124)/(49-77) Respiratory Rate Resp: 20 SpO2 SpO2: 91 % Body mass index is 41.42 kg/m??. General: Critically ill in ICU. CV: S1 and S2 regular. Faint. Resp: Coarse lung sounds. Intubated. Abd: Distended. Unable to assess for pain. Ext: 2+ edema in the lower extremities/hips. Skin: No rashes or lesions on the exposed skin. Neuro/psych: Sedated, not responsive today. carvediloL 25 mg Per NG tube Q12H simethicone 40 mg Oral 4 Times Daily metOLazone 10 mg Oral Q12H terazosin 1 mg Per NG tube Nightly lisinopriL 40 mg Per NG tube Daily dilTIAZem 60 mg Per NG tube Q6H YUSUF aspirin 81 mg Oral Daily protein powder 1 Scoop Per NG tube TID piperacillin-tazobactam 3.375 g Intravenous Q8H ivabradine 7.5 mg Oral BID ergocalciferoL (vitamin D2) 50,000 Units Per NG tube Weekly ipratropium-albuteroL 3 mL Nebulization Q4H chlorhexidine 15 mL Oral BID famotidine 20 mg Per NG tube BID tamsulosin 0.4 mg Oral Daily sodium chloride 4 mL Nebulization Q4H heparin (porcine) 5,000 Units Subcutaneous Q8H [facility] lidocaine 1 patch Transdermal Q24H camphor-methyl salicyl-menthoL Topical (Top) BID Lab Results Component Value Date CREATININE 2.64 (H) 05/03/2023 CREATININE 2.69 (H) 05/02/2023 CREATININE 3.33 (H) 05/01/2023 CREATININE 3.51 (H) 04/30/2023 CREATININE 3.36 (H) 04/29/2023 ESTGFR 26 (L) 05/03/2023 ESTGFR 25 (L) 05/02/2023 ESTGFR 20 (L) 05/01/2023 ESTGFR 19 (L) 04/30/2023 ESTGFR 20 (L) 04/29/2023 NA 135 05/03/2023 NA 137 05/02/2023 NA 138 05/01/2023 K 4.4 05/03/2023 K 4.2 05/02/2023 K 4.1 05/01/2023 CO2 17 (L) 05/03/2023 CO2 20 (L) 05/02/2023 CO2 20 (L) 05/01/2023 Lab Results Component Value Date CALCIUM 8.7 05/03/2023 CALCIUM 8.9 05/02/2023 CALCIUM 8.8 05/01/2023 PHOS 4.2 05/03/2023 PHOS 4.3 05/02/2023 PHOS 4.0 05/01/2023 PTH 54 04/29/2023 25OHVITD 13 (L) 04/29/2023 TSH 0.74 04/19/2023 CK 74 04/28/2023 LDH 199 04/28/2023 Lab Results Component Value Date HGB 9.2 (L) 05/03/2023 HGB 9.9 (L) 05/02/2023 HGB 10.3 (L) 05/01/2023 FERRITIN 355 04/29/2023 IRONSAT 13 (L) 04/29/2023 Lab Results Component Value Date UMICALBCALC Not Calculated 04/29/2023 UPROTCREAT 0.2 04/29/2023 ALBUMIN 3.1 (L) 04/28/2023 ALBUMIN 3.5 04/23/2023 ALBUMIN 3.9 04/19/2023 Renal duplex 04/27, unable to see right kidney in the setting of bowel gas/positioning. No stenosis in the distal left renal artery but unable to rule out stenosis in the proximal to mid left renal artery. Right kidney adjacent to the true lumen, suggesting it is probably perfused. Urine sediment 04/28 remarkable for granular debris, suggestive of acute tubular damage. Assessment & Plan: Myla 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 male admitted in the setting of type B aortic dissection being seen for evaluation of concomitant OVI. Medical comorbidities include EtOH use disorder. He is s/p contrast with imaging performed on 04/24, urine sediment remarkable for granular debris which might fit withcontrast or hemodynamic injury. OVI like due to MADISON-improving Type B Aortic Dissection Intracranial Hemorrhage Vitamin D deficiency Iron deficiency anemia -Patient showing signs of renal recovery, no urgent need for dialysis -DC Norvasc -Start Terazosin 1 mg QHS -c/w metolazone -c/w lisinopril 40 mg daily -c/w Carvedilol 6.25 BID -VBG for further characterization of metabolic acidosis -Continue ergocalciferol 50,000 units weekly -IV iron sucrose 300 mg every other day x 3 for the iron deficiency anemia. -Please avoid NSAIDs, contrast, nephrotoxins and dose adjust renally toxic medications as able. This case was staffed with Dr. Brett Vitale MD Nephrology & Hypertension Fellow Associated attestation - Quinn West MD - 05/03/2023 4:09 PM EDT Patient was seen and examined in person with the renal fellow Dr. Vitale. Assessment and plan were formulated after discussion with me and I agree with them. Please see her notes for details. Recommend stopping amlodipine that she has been started on Clevidipine. Continue diuretics that he is volume overloaded,and part of his blood pressure is volume mediated. Recommend starting terazosin 1 to 2 mg tonight. * Jaylin Turner, [facility] - 05/03/2023 9:43 AM EDT Respiratory Care Mechanical Ventilation Note Protocol: AMV SBT: Yes SPO2 Goal: Saturation Goal: > 92% Vent Mode: Pressure Support Circuit: HEATED Vent Mode: Settings: Set PEEP (cm H2O): 10 Set FiO2: 40 % Measurements: Tidal Volume Measured Exp.: 559 Mean Airway Pressure (cm H2O): 14 Minute Ventilation Total Exhaled (L/min): 13.1 Resp: 23 SpO2: 93 % ETCO2 (mmHg): 30 mmHg Airway: Size: 8.0 ETT Depth: 22 cm @ teeth/gums. Cuff Pressure: 28 mmHg Medications: Duoneb Lung sounds: Clear and Diminished Secretions: Small amount of Thin Clear and White. Assessment: Weaned Vent settings; Failed SBT because of increased RR more than 33 and low tidal volumes. High RR correlating with Metabolic acidosis shown in recent ABG. Fully compensating. Plan: Wean as tolerated Respiratory Pager# [phone] * Tana Smith MD - 05/03/2023 9:36 AM EDT ICU PROGRESS NOTE DOA: 04/18/2023 Room: [address] [place] [address] Length of Stay: 15 ICU Length of Stay 15d 3h Myla Acosta ( ) is a 67 y.o. male with h/o etoh use, undoctored p/w R cerebellar hemorrhage with intraventricular extension, acute obstructive hydrocephalus s/p EVD placement, course c/b failed extubation 2/2 aspiration x 2, fluid overload. 24hr events: Vancomycin DC'd. Started aspirin. Medications: Scheduled Meds: amLODIPine 10 mg Per NG tube Daily carvediloL 12.5 mg Per NG tube Q12H lisinopriL 40 mg Per NG tube Daily dilTIAZem 60 mg Per NG tube Q6H YUSUF aspirin 81 mg Oral Daily protein powder 1 Scoop Per NG tube TID piperacillin-tazobactam 3.375 g Intravenous Q8H ivabradine 7.5 mg Oral BID ergocalciferoL (vitamin D2) 50,000 Units Per NG tube Weekly iron sucrose 300 mg Intravenous Every Other Day ipratropium-albuteroL 3 mL Nebulization Q4H chlorhexidine 15 mL Oral BID famotidine 20 mg Per NG tube BID tamsulosin 0.4 mg Oral Daily sodium chloride 4 mL Nebulization Q4H heparin (porcine) 5,000 Units Subcutaneous Q8H YUSUF lidocaine 1 patch Transdermal Q24H camphor-methyl salicyl-menthoL Topical (Top) BID Continuous Infusions: clevidipine 16 mg/hr (05/03/23 0854) dexmedeTOMIDine 1 mcg/kg/hr (05/03/23 0744) nitroGLYcerin 25 mcg/min (05/03/23 0928) tube feeding diet 46 mL/hr at 05/03/23 0600 propofoL 30 mcg/kg/min (05/03/23 0823) PRN Meds:.fentaNYL (PF), acetaminophen, QUEtiapine, propofoL AND propofoL, potassium chloride ER OR potassium chloride ER, labetaloL, enalaprilat, glucose 40% oral geL OR dextrose OR glucagon Vitals: Temp: [37 ??C (98.6 ??F)-37.4 ??C (99.4 ??F)] Heart Rate: [54-67] Resp: [12-26] BP: (102-124)/(49-77) SpO2: [86 %-98 %] Heart Rate from SpO2: [54 bpm-67 bpm] Physical Exam: Cons: NAD, Cardiac: RRR S1S2 Pulm: CTAB, no W/R/R GI: S/NT/ND, BS+ MSK: WWP, no C/C/E Neuro Exam: MS: Eyes open to voice, following commands CN: PERRL, EOMI, blink to threat bilaterally, +c/+g Motor: Normal bulk and tone throughout, 5/5 throughout I/Os: Intake/Output Summary (Last 24 hours) at 05/03/2023 0938 Last data filed at 05/03/2023 0600 Gross per 24 hour Intake 3696.27 ml Output 1820 ml Net 1876.27 ml Labs: Last 3 wbc, hgb, hct plt Recent Labs 05/03/23 0106 05/02/23 0105 05/01/23 0040 WBC 9.9* 8.0 9.6* HGB 9.2* 9.9* 10.3* HCT 27.4* 30.5* 31.7* PLATELET 277 240 269 Last 3 Lytes Recent Labs 05/03/23 0106 05/02/23 0105 05/01/23 0040 NA 135 137 138 K 4.4 4.2 4.1 CL 105 107 106 CO2 17* 20* 20* BUN 67* 63* 64* CREATININE 2.64* 2.69* 3.33* Last 3 LFTs Recent Labs 04/28/23 0120 04/23/23 0024 04/19/23 0035 AST 26 28 22 ALT 38 26 19 ALKPHOS 61 64 66 BILITOT 0.5 0.4 0.3 BILIDIR 0.3 0.2 0.1 Last Ca, Mg, Phos Recent Labs 05/03/23 0106 CALCIUM 8.7 PHOS 4.2 MAGNESIUM 1.06 Last 3 ProBNP, Trop, CK Recent Labs 04/28/23 1811 CK 74 Last 3 TFT Recent Labs 04/19/23 0035 TSH 0.74 Last 3 Lipids Recent Labs 05/03/23 0106 05/01/23 0040 04/28/23 0120 04/20/23 0110 04/19/23 0035 CHLPL -- -- -- -- 220 HDL -- -- -- -- 86 LDLDIRECT -- -- -- -- 129 TRIG 184 184 126 < > 78 < > = values in this interval not displayed. Last 3 HgbA1C Recent Labs 04/19/23 0035 HA1C 6.0* Ventilator settings: PS 10/10 40% Micro: - 04/29: Scx GPC/GNR Imaging/Studies: - I have reviewed all imaging for this admission. Assessment/Plan: Neuro - R cerebellar hemorrhage, likely HTNive, acute obstructive hydrocephalus s/p R frontal EVD placement now out, etoh use disorder. 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 PRN seroquel for agitation. CV - Aortic root dilation (4.5cm), aortic dissection uncertain if acute or chronic - Vascular consult appreciated: strict impulse control for HR < 80, SBP < 120 - Ivabradine, diltiazem 60mg q6, lisinopril 40mg daily. Increase coreg to 25mg q12. Start amlodipine. - OP follow-up for aortic root dilation Pulm - Re-intubated for hypoxemic respiratory failure, total body fliud overload - Goal PaO2 > 60, paCO2 35-45, O2 sats > 92% - Ventilator liberation protocol - VAP precautions GI - Dysphagia, diarrhea, gaseous distention - TF at goal - Resume bowel regimen, add simethicone - GI ppx with H2B - Pull flexiseal when output < 250 in 24 hrs FEN/ - Prerenal/MADISON OVI improving - Goal net negative - Goal Na 135-145, K > 4, Mg > 1 - ICU potassium repletion protocol - Nephrology consult appreciated, lasix + metolazone q6 - Flomax Heme - - goal Hgb > 7, INR < 1.5, Platelets > 10k - SCDs, SQH Endo - - goal glucose 120-180 --> Accuchecks and ISS - A1C 6 ID - afebrile, improving leukocytosis - Zosyn day 3 renally dosed. - Reculture q72hr for temp > 101F --> UA, blood cx, sputum cx, CSF cx, CXR - acetaminophen PRN Core: Code status: FULL Dispo - ICU //////////////////////////////////////////////////////////////////////////////// //// Attestation: IS PATIENT CRITICALLY ILL ? Is there a high potential of sudden, clinically significant, or life threatening deterioration? YES Is there a need for direct personal assessment and management to treat/prevent multiple vital organfailure/deterioration? YES If this patient is not critically ill, the reason for continued hospitalization is n/a. PATIENT IS CRITICALLY ILL WITH THESE DIAGNOSES BEING MANAGED BY CCS TEAM: Mechanical ventilation I personally performed 30 minutes of aggregate critical care time exclusive of procedures and teaching. This includes time spent during direct patient evaluation and reassessment, interpreting diagnostic tests, directing life and/or organ supporting interventions and documentation on the unit. Tana Smith MD 05/03/2023 9:38 AM * Unique Mcghee, RD - 05/03/2023 8:44 AM EDT Nutrition Progress Note Myla 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 male with unknown pmhx (no PCP or listed medications) who presents asa transfer from an OSH for evaluation of a right cerebellar IPH. Now s/p R EVD placement 04/17 givenhydrocephalus. Reason for Assessment: ICU Tube Feeding, Follow-up Nutrition Recommendations: Change TF to: Peptamen 1.5 with a goal rate of 50 ml per hour plus 3 scoops of protein powder daily. This rate is calculated to compensate for unplanned time off feedings due to potential procedures, etc. At goal, this will provide: Peptamen 1.5 Total Volume Per Day: 1000 mL Scoops of Protein: 3 Calories per Day: 1575 Protein per Day: 86 g Free Water mL per Day: 922 % RDI: 100 % Propofol at current rate will provide 288 calories from lipid daily, or about 26 grams of fat/day. Monitor TG while on Propofol. Mag and Phos with daily BMP or CMP labs; replenish as indicated. Daily weights. Monitor BG goal 140-180 in ICU. I was able to discuss plan with provider [place] [id number] team . Current Nutrition Regimen: Active Orders Diet NPO diet (Give Meds) Frequency: Effective Now Number of Occurrences: Until Specified All Active TF Orders: Tubefeeding Orders (From admission, onward) Start Dose/Rate Route Frequency Ordered Stop 05/02/23 0030 tube feeding diet 920 mL 46 mL/hr Per NG tube CONTINUOUS 05/01/23 2334 Average tube feeding provision over the past 2 days; 867mL vs daily goal volume of 920mL formula (94% of goal) Average protein powder provision over the past 2 days; 2.5 scoops vs daily goal of 3 scoops (83% ofgoal) Tolerance or barriers to meeting needs: tolerating so far Assessment: Lab Results Component Value Date NA 135 05/03/2023 K 4.4 05/03/2023 CL 105 05/03/2023 CO2 17 (L) 05/03/2023 BUN 67 (H) 05/03/2023 CREATININE 2.64 (H) 05/03/2023 ESTGFR 26 (L) 05/03/2023 MAGNESIUM 1.06 05/03/2023 CALCIUM 8.7 05/03/2023 PHOS 4.2 05/03/2023 AST 26 04/28/2023 ALT 38 04/28/2023 ALKPHOS 61 04/28/2023 BILITOT 0.5 04/28/2023 BILIDIR 0.3 04/28/2023 TRIG 184 05/03/2023 HA1C 6.0 (H) 04/19/2023 25OHVITD 13 (L) 04/29/2023 IRON 25 (L) 04/29/2023 No results found for: POCGLU Patient Lines/Drains/Airways Status Active Nutritional LDAs Name Placement date Placement time Site Days Naso/Oral Tube 04/23/23 1559 small bore weighted ([place]) right nostril 04/23/23 155 right nostril 10 PIV 05/02/232053 20 gauge metacarpal vein (top of hand), left 05/02/232053 -- 1 PICC Line 04/20/23 1410 Triple Lumen 5 Fr brachial vein, right 04/20/23 1410 -- 13 Urethral Catheter 04/24/23 1401 04/24/23 1401 -- 9 Fecal Incontinence Insurance Counselor 05/01/23 0330 05/01/23 0330 -- 2 Pressure Injury 05/02/23 other (see comments) Stage 1 05/02/23 -- -- 1 Oxygen Therapy / Airway Device: Ventilator Shift Pressure Injury Prevention Occiput: No Injury Thoracic Spine: No Injury Sacral: No Injury Ischial - left: No Injury Ischial - right: No Injury Heel - left: No Injury Heel - right: No Injury Elbow - left: No Injury Elbow - right: No Injury Device Sites: A line sites - tubing, A line Board, ECG Leads, IV sites Other Sites: EVD Last Bowel Movement: 05/02/23 Intake/Output Summary (Last 24 hours) at 05/03/2023 1010 Last data filed at 05/03/2023 0800 Gross per 24 hour Intake 3696.27 ml Output 1820 ml Net 1876.27 ml Relevant medications: Continuous clevidipine 16 mg/hr (05/03/23 0854) dexmedeTOMIDine 1 mcg/kg/hr (05/03/23 0744) nitroGLYcerin Stopped (05/03/23 0945) tube feeding diet 46 mL/hr at 05/03/23 0600 propofoL 30 mcg/kg/min (05/03/23 0823) Scheduled amLODIPine 10 mg Per NG tube Daily carvediloL 25 mg Per NG tube Q12H simethicone 40 mg Oral 4 Times Daily metOLazone 10 mg Oral Q12H lisinopriL 40 mg Per NG tube Daily dilTIAZem 60 mg Per NG tube Q6H YUSUF aspirin 81 mg Oral Daily protein powder 1 Scoop Per NG tube TID piperacillin-tazobactam 3.375 g Intravenous Q8H ivabradine 7.5 mg Oral BID ergocalciferoL (vitamin D2) 50,000 Units Per NG tube Weekly iron sucrose 300 mg Intravenous Every Other Day ipratropium-albuteroL 3 mL Nebulization Q4H chlorhexidine 15 mL Oral BID famotidine 20 mg Per NG tube BID tamsulosin 0.4 mg Oral Daily sodium chloride 4 mL Nebulization Q4H heparin (porcine) 5,000 Units Subcutaneous Q8H YUSUF lidocaine 1 patch Transdermal Q24H camphor-methyl salicyl-menthoL Topical (Top) BID PRN senna-docusate, polyethylene glycoL (MIRALAX) oral powder AND bisacodyL AND bisacodyl EC AND lactulose AND lactulose AND magnesium citrate AND Tap water enema, fentaNYL (PF), acetaminophen, QUEtiapine, propofoL AND propofoL, potassium chloride ER OR potassium chloride ER, labetaloL, enalaprilat, glucose 40% oral geL OR dextrose OR glucagon Anthropometrics: Admit Weight: 111.8 kg Estimated body mass index is 41.42 kg/m?? as calculated from the following: Height as of this encounter: 174 cm (5' 8.5). Weight as of this encounter: 125.4 kg (276 lb 7.3 oz). [place] Body Weight (IBW) (kg): 71.37 Wt Readings from Last 10 Encounters: 05/03/23 125.4 kg (276 lb 7.3 oz) Patient Vitals for the past 168 hrs: Weight 05/03/23 0600 125.4 kg (276 lb 7.3 oz) 05/02/23 0600 126.3 kg (278 lb 7.1 oz) 05/01/23 0500 122.7 kg (270 lb 8.1 oz) 04/29/23 0523 118.8 kg (261 lb 14.5 oz) 04/28/23 0530 123.5 kg (272 lb 4.3 oz) 04/27/23 0600 122.7 kg (270 lb 8.1 oz) Weight Source: Bed Estimated / Assessed Needs: Fluid Requirements: Estimated Fluid Requirement Method: Weight Based Method Weight Based Method: 30 Weight Based Calculation: 2142 mL Metabolic cart study: 1820 kcals Kcal / K - 1785 Kcal (20 Kcal/Kg - 25 Kcal/Kg) Estimated Protein Needs: 86 g - 107 g (1.2 g/Kg - 1.5 g/Kg) Nutrition intake and intake history / interview: 05/02: Propofol rate decreasing, will increase kcal from TF. 04/30: TF on APR hold. Propofol went up quite a bit. 04/27: Extubated and re-intubated. TF presently off. On small amt of propofol and javon. Multiple BM yesterday. Lasix drip. GFR <60. Met cart study 1820 kcals. 04/25: TF was off/on hold this morning due to TF formula not being available per flowsheet - checkedunit storage - plenty of Pep AF in top drawer. Pt back from CT scan and TF reportedly restarted. NoBM since 04/21. Phos and Na slightly low. 04/23: Consulted again for TF. Prior goal remains appropriate for now - advance to goal. Off propofol. Has small bore feeding tube. Needs to move bowels. NPO per TREASURY CONSULTANT. 04/19: Re-intubated. TF at 25 mL/hr today. On low dose propofol. No BM this admission. 04/17: Consulted for TF recommendations. May extubate tomorrow. On some propofol. On alcohol withdrawal protocol - thiamine, folic acid and Thera M ordered. Nutrition Focused Physical Exam: Not performed Reason NFPE Not Performed: Not indicated. Malnutrition Diagnosis: Not identified (BETHANY Hagen J Parenteral Enteral Nutr. 2011; 36(3): 273-83) Nutrition to continue to follow up while inpatient Thank you, Unique Mcghee, MS, RD, CNSC, LD Clinical Nutrition * Franchesca Osorio RN - 05/03/2023 7:31 AM EDT OUTCOME EVALUATION NOTE: OUTCOME SUMMARY: Received patient intubated/sedated on propofol and dex. Dex titrated down, patient bradycardic in the 50's. Clevidipine and Nitro drip infusing. Nitro titrated down. SBP goal maintained 90-120. Neuro: PERRLA, follows commands, opens eyes spontaneously. Moving all four extremities. Soft restraints on for safety. Resp: Lungs course, diminished bases. Moderate amount of thick secretions from ETT and mouth. Oral care q2hrs. : Rebolledo in place for 1-2hr output monitoring. Positive fluid status. Lasix x1 dose of 40mg, then 120mg dose x2, Metolazone 10mg administered overnight. Refer to flowsheet for UOP trend. GI: Flexiseal in place, popped out. Replaced and now draining. PLAN MOVING FORWARD: Neuro Q4hrs SBP goal 90-120 VS q 1H Pulse checks q 4hrs INDIVIDUALIZED FALL PREVENTION INTERVENTIONS: Patient-specific fall risk factors per assessment: [current deficits]: Lines/ drains/ sedation on going Assistance [level of assistance required for transfers and ambulation]: Dependent Supervision [direct monitoring required during toileting and ADLs]: Direct supervision Surveillance [continuous indirect monitoring]: ICU monitoring Patient-specific fall prevention interventions for sensory deficits provided, if applicable: [X] N/A * Jovita Douglas MD - 05/03/2023 5:54 AM EDT NEUROSURGERY PROGRESS NOTE ID: Myla 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 male largely without routine medical care and not on any medications, presenting in transfer from OSH for R cerebellar IPH and intraventricular extension. S/p R EVD placement for hydrocephalous HD# 16 POD # INTERVAL HX/ROS: -EVD removed. No concerns for hydrocephalus. MEDICATIONS: Scheduled Meds: simethicone 40 mg Oral 4 Times Daily metOLazone 10 mg Oral Q12H terazosin 1 mg Per NG tube Nightly metoproloL tartrate 50 mg Oral Q6H YUSUF dilTIAZem 90 mg Per NG tube Q6H YUSUF lisinopriL 40 mg Per NG tube Daily aspirin 81 mg Oral Daily protein powder 1 Scoop Per NG tube TID piperacillin-tazobactam 3.375 g Intravenous Q8H ergocalciferoL (vitamin D2) 50,000 Units Per NG tube Weekly ipratropium-albuteroL 3 mL Nebulization Q4H chlorhexidine 15 mL Oral BID famotidine 20 mg Per NG tube BID tamsulosin 0.4 mg Oral Daily sodium chloride 4 mL Nebulization Q4H heparin (porcine) 5,000 Units Subcutaneous Q8H YUSUF lidocaine 1 patch Transdermal Q24H camphor-methyl salicyl-menthoL Topical (Top) BID Continuous Infusions: tube feeding diet 1,000 mL Small Bore, Weighted Tube Continuous ### clevidipine (Cleviprex) (0.5 mg/mL) infusion 0-16 mg/hr Intravenous Continuous ### dexmedeTOMIDine (Precedex) (4 mcg/mL) in sodium chloride 0.9% 100 mL infusion 0- 1.7 mcg/kg/hr (Adjusted) Intravenous Continuous ### nitroGLYcerin (200 mcg/mL) in dextrose 5% 250 mL infusion 0-200 mcg/min Intravenous Continuous ### propofoL (Diprivan) (10 mg/mL) infusion 0-50 mcg/kg/min (Adjusted) Intravenous Continuous ### PRN Meds: senna-docusate, polyethylene glycoL (MIRALAX) oral powder AND bisacodyL AND bisacodyl EC AND lactulose AND lactulose AND magnesium citrate AND Tap water enema, fentaNYL (PF), acetaminophen, QUEtiapine, propofoL AND propofoL, potassium chloride ER OR potassium chloride ER, labetaloL, enalaprilat, glucose 40% oral geL OR dextrose OR glucagon EXAM: Vitals: Temp: [37 ??C (98.6 ??F)-37.7 ??C (99.8 ??F)] Heart Rate: [49-66] Resp: [13-26] BP: (98-176)/(53-160) SpO2: [91 %-98 %] Heart Rate from SpO2: [49 bpm-66 bpm] BMI: Weight: 125.4 kg (276 lb 7.3 oz) (05/03/23 0600) I/O: I/O last 3 completed shifts: In: 5325.2 [I.V.:3460.9; NG/GT:1614.4; IV Piggyback:150] Out: 4010 [Urine:3910; Stool:100] EVD clamped GEN: NEURO: Eyes open to stimulation PERRL, EOMI Intubated No facial asymmetry MOTOR: RUE: Following commands - thumbs up LUE: Following commands - thumbs up RLE: Following commands - Toe wiggle LLE: Following commands - Toe wiggle EVD site CDI LABS: Recent Labs 05/04/23 0200 05/03/23 0106 05/02/23 0105 WBC 8.2 9.9* 8.0 HGB 8.6* 9.2* 9.9* PLATELET 238 277 240 Recent Labs 05/04/23 0200 05/03/23 0106 05/02/23 0105 NA 135 135 137 K 3.6 4.4 4.2 CL 103 105 107 CO2 18* 17* 20* BUN 71* 67* 63* CREATININE 2.94* 2.64* 2.69* No results for input(s): PT, INR in the last 72 hours. IMAGING: CTH 04/26: IMPRESSION Slightly increased intraventricular hemorrhage. No additional significant change. CTH 04/25: IMPRESSION Decreasing volume and density of intraventricular hemorrhage. Decreasing size of ventricular system. Additional findings noted above without acute interval changes. Assessment: Myla 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 male largely without routine medical care and not on any medications, presenting in transfer from OSH for R cerebellar IPH and intraventricular extension. S/p R EVD placement for hydrocephalus. Doing well from neurologic standpoint, MRI done with no evidence of mass lesion. EVD out. No concerns for hydro. Problem List: IPH IVH Hydrocephalous Plan: - Q2HNC for 24 hours then defer to primary team - Pain control - Imaging: No further imaging needed unless there is an exam change. - SBP<160 - EVD removed - DVT ppx: SCDs, please hold SQH. Ok for ASA now that EVD is out. - Current Diet: NPO diet (Give Meds) - Further care per [facility] Neurosurgery will sign off at this time. Please do not hesitate to reach back out with further questions or concerns. PLEASE PAGE [phone] WITH QUESTIONS Active Hospital Problems Diagnosis ICH (intracerebral hemorrhage) Resolved Hospital Problems No resolved problems to display. There are no active non-hospital problems to display for this patient. Jovita Douglas MD 05/04/2023 * Chantal Davis RT - 05/02/2023 11:12 PM EDT AMV Protocol: Yes SBT Protocol: Yes SBT: Not performed/Excluded: PEEP greater than 10 cmH2O Vent Settings: Ventilator Mode: PS/CPAP PEEP Set: 10 FiO2: 61 % PSV: 12 Ventilator Measurements: Resp: 14 Vt Spontaneous: 458 Ve: 13.5 SpO2: 96 % EtCO2: 34 mmHg Airway: 8.0 @ 22 cm at the Teeth. Skin Integrity: WDL Nebulized Medications: Albuterol & Ipratroprium, 3% Hypertonic Saline Breath Sounds: Coarse crackles/ diminished Secretions: Small clear thin Assessment / Events / Plan of the Day: Received patient intubated and mechanically ventilated on PS12/10 70%. Fio2 weaned to 60%. No other changes made during this shift. Plan: Continue to support patient in AMV protocol. Wean as tolerated. RT José Miguel * Beto Bravo, [facility] - 05/02/2023 5:12 PM EDT AMV Protocol: Yes SBT Protocol: Yes SBT: Vent Settings: Ventilator Mode: PS/CPAP PEEP Set: 10 FiO2: 70 % PSV: 12 Ventilator Measurements: Resp: 17 Vt Spontaneous: 563 Ve: 8.8 SpO2: 98 % EtCO2: 30 mmHg Airway: 8.0 @ 22 cm at the Teeth. Skin Integrity: WDL Nebulized Medications: Albuterol & Ipratroprium & 3% saline q4 IPV 3 x d Breath Sounds: diminished Secretions: small creamy Assessment / Events / Plan of the Day: pt required increase in Oxygen to 70% Pt to receive diuresis Treatments given, IPV x 2 Will continue to monitor pt 04/29 cxr IMPRESSION * Right arm PICC terminates in the right atrium. Consider slight retraction. * Apparent widening of the mediastinal silhouette may be artifactual/projectional, however, possibility of a mediastinal hematoma should be considered. Repeat radiograph with better inspiration is recommended. * Mild central pulmonary vascular congestion. * Hazy retrocardiac opacity: Atelectasis versus infiltrate. * Trace left pleural effusion. 05/[address] IMPRESSION No change in ventricular caliber, intraventricular hemorrhage or right cerebellar hemorrhage with moderate surrounding edema. BETO BRAVO RCP * Marion Vitale MD - 05/02/2023 2:36 PM EDT Hypertension-Nephrology Inpatient Follow-up Myla Acosta [id number] ID: 67 y.o. old male seen for OVI. Interval History: Patient intubated and sedated in the ICU with at bedside. Today, pt's kidney function continues to improve, Cr continues down trending, his urine output is adequate reflecting signs of renal recovery. We discussed BP management with his primary team, he still has not reached a target BP of <120 ,we suggested stopping his metolazone and starting patient on lisinopril 40 mg PO daily and carvedilol while weaning him down from his nicardipine drip. Physical Examination: Last value 24 Hour Temperature Range Temp: [36.9 ??C (98.4 ??F)-37.7 ??C (99.8 ??F)] 12 Hour Heart Rate Range Heart Rate: [60-65] 24 Hour Blood Pressure Range BP: -- Respiratory Rate Resp: 17 SpO2 SpO2: 96 % Body mass index is 41.72 kg/m??. General: Critically ill in ICU. CV: S1 and S2 regular. Faint. Resp: Coarse lung sounds. Intubated. Abd: Distended. Unable to assess for pain. Ext: 2+ edema in the lower extremities/hips. Skin: No rashes or lesions on the exposed skin. Neuro/psych: Sedated, not responsive today. vancomycin 1.5 g Intravenous Once carvediloL 12.5 mg Per NG tube Q12H lisinopriL 40 mg Per NG tube Daily protein powder 1 Scoop Per NG tube TID piperacillin-tazobactam 3.375 g Intravenous Q8H ivabradine 7.5 mg Oral BID dilTIAZem 30 mg Per NG tube Q6H YUSUF ergocalciferoL (vitamin D2) 50,000 Units Per NG tube Weekly iron sucrose 300 mg Intravenous Every Other Day ipratropium-albuteroL 3 mL Nebulization Q4H chlorhexidine 15 mL Oral BID famotidine 20 mg Per NG tube BID tamsulosin 0.4 mg Oral Daily sodium chloride 4 mL Nebulization Q4H heparin (porcine) 5,000 Units Subcutaneous Q8H YUSUF lidocaine 1 patch Transdermal Q24H camphor-methyl salicyl-menthoL Topical (Top) BID Lab Results Component Value Date CREATININE 2.69 (H) 05/02/2023 CREATININE 3.33 (H) 05/01/2023 CREATININE 3.51 (H) 04/30/2023 CREATININE 3.36 (H) 04/29/2023 CREATININE 3.19 (H) 04/29/2023 ESTGFR 25 (L) 05/02/2023 ESTGFR 20 (L) 05/01/2023 ESTGFR 19 (L) 04/30/2023 ESTGFR 20 (L) 04/29/2023 ESTGFR 21 (L) 04/29/2023 NA 137 05/02/2023 NA 138 05/01/2023 NA 133 (L) 04/30/2023 K 4.2 05/02/2023 K 4.1 05/01/2023 K 4.2 04/30/2023 CO2 20 (L) 05/02/2023 CO2 20 (L) 05/01/2023 CO2 19 (L) 04/30/2023 Lab Results Component Value Date CALCIUM 8.9 05/02/2023 CALCIUM 8.8 05/01/2023 CALCIUM 8.8 04/30/2023 PHOS 4.3 05/02/2023 PHOS 4.0 05/01/2023 PHOS 5.4 (H) 04/30/2023 PTH 54 04/29/2023 25OHVITD 13 (L) 04/29/2023 TSH 0.74 04/19/2023 CK 74 04/28/2023 LDH 199 04/28/2023 Lab Results Component Value Date HGB 9.9 (L) 05/02/2023 HGB 10.3 (L) 05/01/2023 HGB 11.0 (L) 04/29/2023 FERRITIN 355 04/29/2023 IRONSAT 13 (L) 04/29/2023 Lab Results Component Value Date UMICALBCALC Not Calculated 04/29/2023 UPROTCREAT 0.2 04/29/2023 ALBUMIN 3.1 (L) 04/28/2023 ALBUMIN 3.5 04/23/2023 ALBUMIN 3.9 04/19/2023 Renal duplex 04/27, unable to see right kidney in the setting of bowel gas/positioning. No stenosis in the distal left renal artery but unable to rule out stenosis in the proximal to mid left renal artery. Right kidney adjacent to the true lumen, suggesting it is probably perfused. Urine sediment 04/28 remarkable for granular debris, suggestive of acute tubular damage. Assessment & Plan: Myla 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 male admitted in the setting of type B aortic dissection being seen for evaluation of concomitant OVI. Medical comorbidities include EtOH use disorder. He is s/p contrast with imaging performed on 04/24, urine sediment remarkable for granular debris which might fit withcontrast or hemodynamic injury. OVI like due to [place]ISON-improving Type B Aortic Dissection Intracranial Hemorrhage Vitamin D deficiency Iron deficiency anemia -Patient showing signs of renal recovery, no urgent need for dialysis -Start lisinopril 40 mg daily -Start Carvedilol 6.25 BID -DC Metolazone as pt is in negative balance -Continue ergocalciferol 50,000 units weekly -Agree with IV iron sucrose 300 mg every other day x 3 for the iron deficiency anemia. -Please avoid NSAIDs, contrast, nephrotoxins and dose adjust renally toxic medications as able. This case was staffed with Dr. Brett Vitale MD Nephrology & Hypertension Fellow Associated attestation - Quinn West MD - 05/03/2023 9:24 AM EDT Patient was seen and examined in person with the renal fellow Dr. Vitale. Assessment and plan were formulated after discussion with me and I agree with them. Please see her notes for details. Myla 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 male with right cerebellar hemorrhage with intraventricular extension, and obstructive hydrocephalus status post EVD placement, had OVI in the setting of contrast, with patent lesional arteries even though he has type B aortic dissection. recommend beta-blockade in the setting of aortic dissection and ascending aortic aneurysm. Is reasonable to start lisinopril that his creatinine is improving and is making good urine, and titrate down nicardipine drip. Will continue to follow. * Tana Smith MD - 05/02/2023 10:58 AM EDT ICU PROGRESS NOTE DOA: 04/18/2023 Room: [address] [place] [address] Length of Stay: 14 ICU Length of Stay 14d 4h Myla Acosta ( ) is a 67 y.o. male with h/o etoh use, undoctored p/w R cerebellar hemorrhage with intraventricular extension, acute obstructive hydrocephalus s/p EVD placement, course c/b failed extubation 2/2 aspiration x 2, fluid overload. 24hr events: CTH stable, EVD removed. Nitroglycerin gtt started. Medications: Scheduled Meds: vancomycin 1.5 g Intravenous Once fentaNYL (PF) 50 mcg Intravenous Once protein powder 1 Scoop Per NG tube TID polyethylene glycoL (MIRALAX) oral powder 17 g Per NG tube BID piperacillin-tazobactam 3.375 g Intravenous Q8H ivabradine 7.5 mg Oral BID metOLazone 10 mg Per NG tube Daily dilTIAZem 30 mg Per NG tube Q6H YUSUF ergocalciferoL (vitamin D2) 50,000 Units Per NG tube Weekly iron sucrose 300 mg Intravenous Every Other Day ipratropium-albuteroL 3 mL Nebulization Q4H chlorhexidine 15 mL Oral BID famotidine 20 mg Per NG tube BID tamsulosin 0.4 mg Oral Daily sodium chloride 4 mL Nebulization Q4H heparin (porcine) 5,000 Units Subcutaneous Q8H YUSUF lidocaine 1 patch Transdermal Q24H camphor-methyl salicyl-menthoL Topical (Top) BID Continuous Infusions: niCARdipine 5 mg/hr (05/02/23 1038) dexmedeTOMIDine 1.6 mcg/kg/hr (05/02/23 0942) nitroGLYcerin 200 mcg/min (05/02/23 0838) tube feeding diet 46 mL/hr at 05/02/23 0655 propofoL 30 mcg/kg/min (05/02/23 1100) PRN Meds:.fentaNYL (PF), vancomycin- intermittent dosing per levels, QUEtiapine, [DISCONTINUED] bisacodyl EC AND [DISCONTINUED] lactulose AND [DISCONTINUED] lactulose AND magnesium citrate AND Tap water enema, propofoL AND propofoL, potassium chloride ER OR potassium chloride ER, acetaminophen, labetaloL, enalaprilat, bisacodyL, glucose 40% oral geL OR dextrose OR glucagon Vitals: Temp: [36.7 ??C (98.1 ??F)-37.7 ??C (99.8 ??F)] Heart Rate: [54-68] Resp: [12-22] BP: -- SpO2: [92 %-99 %] Heart Rate from SpO2: [53 bpm-68 bpm] Physical Exam: Cons: NAD, Cardiac: RRR S1S2 Pulm: CTAB, no W/R/R GI: S/NT/ND, BS+ MSK: WWP, no C/C/E Neuro Exam: MS: Eyes open to voice, not CN: PERRL, EOMI, blink to threat bilaterally, +c/g Motor: Normal bulk and tone throughout, 5/5 throughout I/Os: Intake/Output Summary (Last 24 hours) at 05/02/2023 1106 Last data filed at 05/02/2023 1016 Gross per 24 hour Intake 3923.08 ml Output 4589 ml Net -665.92 ml Labs: Last 3 wbc, hgb, hct plt Recent Labs 05/02/23 0105 05/01/23 0040 04/29/23 2315 WBC 8.0 9.6* 10.8* HGB 9.9* 10.3* 11.0* HCT 30.5* 31.7* 33.7* PLATELET 240 269 257 Last 3 Lytes Recent Labs 05/02/23 0105 05/01/23 0040 04/30/23 0515 NA 137 138 133* K 4.2 4.1 4.2 CL 107 106 101 CO2 20* 20* 19* BUN 63* 64* 61* CREATININE 2.69* 3.33* 3.51* Last 3 LFTs Recent Labs 04/28/23 0120 04/23/23 0024 04/19/23 0035 AST 26 28 22 ALT 38 26 19 ALKPHOS 61 64 66 BILITOT 0.5 0.4 0.3 BILIDIR 0.3 0.2 0.1 Last Ca, Mg, Phos Recent Labs 05/02/23 010 CALCIUM 8.9 PHOS 4.3 MAGNESIUM 1.06 Last 3 ProBNP, Trop, CK Recent Labs 04/28/23 1811 CK 74 Last 3 TFT Recent Labs 04/19/23 0035 TSH 0.74 Last 3 Lipids Recent Labs 05/01/23 0040 04/28/23 0120 04/23/23 0024 04/20/23 0110 04/19/23 0035 CHLPL -- -- -- -- 220 HDL -- -- -- -- 86 LDLDIRECT -- -- -- -- 129 TRIG 184 126 144 < > 78 < > = values in this interval not displayed. Last 3 HgbA1C Recent Labs 04/19/2334 HA1C 6.0* Ventilator settings: VC 16 550 60% 10 Micro: - 04/29: Scx GPC/GNR Imaging/Studies: - I have reviewed all imaging for this admission. Assessment/Plan: Neuro - R cerebellar hemorrhage, likely HTNive, acute obstructive hydrocephalus s/p R frontal EVD placement now out, etoh use disorder. 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 PRN seroquel for agitation. CV - Aortic root dilation (4.5cm), aortic dissection uncertain if acute or chronic - Vascular consult appreciated: strict impulse control for HR < 80, SBP < 120 - Ivabradine, diltiazem. Vascular medicine help appreciated for BP management. F/U CTA in 3 months - Aspirin 81mg tomorrow - OP follow-up for aortic root dilation Pulm - Re-intubated for hypoxemic respiratory failure, - Goal PaO2 > 60, paCO2 35-45, O2 sats > 92% - Ventilator liberation protocol - VAP precautions GI - Dysphagia, Diarrhea - Resume TF - Flexiseal - Hold bowel regimen - GI ppx with H2B FEN/ - Prerenal OVI improving - maintain euvolemia, I=O - Goal Na 135-145, K > 4, Mg > 1 - ICU potassium repletion protocol - Continue metolazone, nephrology consult appreciated - Flomax Heme - - goal Hgb > 7, INR < 1.5, Platelets > 10k - SCDs, SQH Endo - - goal glucose 120-180 --> Accuchecks and ISS - A1C 6 ID - afebrile, improving leukocytosis - Vanc/zosyn day 2 renally dosed. Send MRSA PCR - Reculture q72hr for temp > 101F --> UA, blood cx, sputum cx, CSF cx, CXR - acetaminophen PRN Core: Code status: FULL Dispo - ICU //////////////////////////////////////////////////////////////////////////////// //// Attestation: IS PATIENT CRITICALLY ILL ? Is there a high potential of sudden, clinically significant, or life threatening deterioration? YES Is there a need for direct personal assessment and management to treat/prevent multiple vital organfailure/deterioration? YES If this patient is not critically ill, the reason for continued hospitalization is n/a. PATIENT IS CRITICALLY ILL WITH THESE DIAGNOSES BEING MANAGED BY CCS TEAM: Mechanical ventilation I personally performed 30 minutes of aggregate critical care time exclusive of procedures and teaching. This includes time spent during direct patient evaluation and reassessment, interpreting diagnostic tests, directing life and/or organ supporting interventions and documentation on the unit. Tana Smith MD 05/02/2023 11:06 AM * Maria Pineda - 05/02/2023 10:21 AM EDT Pouch Maker Encounter Note Patient Name: Myla Acosta : [id number] MR#: [id number] Admit Date: 04/18/2023 6:34 AM Hospital Day 14 days Narrative: Follow up visit. The patient was not responsive. The patient's Gina was at bedside. Assessment: The patient's was tearful and is doing the best she can to get through each day. Intervention and Outcome: Checked in with the patient's to provide emotional/spiritual support. Acknowledged that it hasbeen a long haul. Encouraged her to take care of herself. She expressed thanks for the visit. Follow-up: Will plan to follow up for continued support. Time in Direct Care: 10 minutes. Maria Pineda 05/02/2023 * Jovita Douglas MD - 05/02/2023 7:44 AM EDT NEUROSURGERY PROGRESS NOTE ID: Myla 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 male largely without routine medical care and not on any medications, presenting in transfer from OSH for R cerebellar IPH and intraventricular extension. S/p R EVD placement for hydrocephalous HD# 14 POD # INTERVAL HX/ROS: -No neurosurgical issues overnight. EVD clamped. Some documented elevated ICPs that self resolved and were thought to be agitation related as sedation was being weaned throughout the day. -head CT this morning demonstrated no significant change from yesterday before EVD clamped. Will follow up final read. MEDICATIONS: Scheduled Meds: lidocaine 10 mL Subcutaneous Once protein powder 1 Scoop Per NG tube TID polyethylene glycoL (MIRALAX) oral powder 17 g Per NG tube BID piperacillin-tazobactam 3.375 g Intravenous Q8H ivabradine 7.5 mg Oral BID metOLazone 10 mg Per NG tube Daily dilTIAZem 30 mg Per NG tube Q6H YUSUF magnesium hydroxide 30 mL Per NG tube Daily ergocalciferoL (vitamin D2) 50,000 Units Per NG tube Weekly iron sucrose 300 mg Intravenous Every Other Day senna-docusate 2 tablet Per NG tube BID ipratropium-albuteroL 3 mL Nebulization Q4H chlorhexidine 15 mL Oral BID famotidine 20 mg Per NG tube BID tamsulosin 0.4 mg Oral Daily sodium chloride 4 mL Nebulization Q4H heparin (porcine) 5,000 Units Subcutaneous Q8H YUSUF lidocaine 1 patch Transdermal Q24H camphor-methyl salicyl-menthoL Topical (Top) BID Continuous Infusions: dexmedeTOMIDine (Precedex) (4 mcg/mL) in sodium chloride 0.9% 100 mL infusion 0- 1.7 mcg/kg/hr (Adjusted) Intravenous Continuous ### nitroGLYcerin (200 mcg/mL) in dextrose 5% 250 mL infusion 0-200 mcg/min Intravenous Continuous ### tube feeding diet 920 mL Per NG tube Continuous ### propofoL (Diprivan) (10 mg/mL) infusion 0-50 mcg/kg/min (Adjusted) Intravenous Continuous ### PRN Meds: fentaNYL (PF), vancomycin- intermittent dosing per levels, QUEtiapine, [DISCONTINUED] bisacodyl EC AND [DISCONTINUED] lactulose AND [DISCONTINUED] lactulose AND magnesium citrate AND Tap water enema, propofoL AND propofoL, potassium chloride ER OR potassium chloride ER, acetaminophen, labetaloL, enalaprilat, bisacodyL, glucose 40% oral geL OR dextrose OR glucagon EXAM: Vitals: Temp: [36.7 ??C (98.1 ??F)-37.7 ??C (99.8 ??F)] Heart Rate: [54-68] Resp: [12-22] BP: -- SpO2: [92 %-99 %] Heart Rate from SpO2: [53 bpm-68 bpm] BMI: Weight: 126.3 kg (278 lb 7.1 oz) (05/02/23 0600) I/O: I/O last 3 completed shifts: In: 4954.7 [I.V.:2905.7; NG/GT:1799; IV Piggyback:100] Out: 6288 [Urine:4560; Other:103; Stool:1625] EVD clamped GEN: NEURO: Eyes open to stimulation PERRL, EOMI Intubated No facial asymmetry MOTOR: RUE: Following commands - thumbs up LUE: Following commands - thumbs up RLE: Following commands - Toe wiggle LLE: Following commands - Toe wiggle EVD site CDI LABS: Recent Labs 05/02/23 0105 05/01/23 0040 04/29/23 2315 WBC 8.0 9.6* 10.8* HGB 9.9* 10.3* 11.0* PLATELET 240 269 257 Recent Labs 05/02/23 0105 05/01/23 0040 04/30/23 0515 NA 137 138 133* K 4.2 4.1 4.2 CL 107 106 101 CO2 20* 20* 19* BUN 63* 64* 61* CREATININE 2.69* 3.33* 3.51* No results for input(s): PT, INR in the last 72 hours. IMAGING: CTH 04/26: IMPRESSION Slightly increased intraventricular hemorrhage. No additional significant change. CTH 04/25: IMPRESSION Decreasing volume and density of intraventricular hemorrhage. Decreasing size of ventricular system. Additional findings noted above without acute interval changes. Assessment: Myla 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 male largely without routine medical care and not on any medications, presenting in transfer from OSH for R cerebellar IPH and intraventricular extension. S/p R EVD placement for hydrocephalus. Doing well from neurologic standpoint, MRI done with no evidence of mass lesion. Likely will DC EVD today pending head CT final read. Once EVD removed, ok for ASA to start 24 hoursafterwards. Problem List: IPH IVH Hydrocephalous Plan: - Q2HNC - Pain control - Imaging: CTH this morning was appropriate. No further imaging needed unless there is an exam change. - SBP<160 - Monitor EVD/ICP per protocol, clamped - DVT ppx: SCDs, please hold SQH. Hold ASA for now - Current Diet: NPO diet (Give Meds) - Further care per NCCU PLEASE PAGE [phone] WITH QUESTIONS Active Hospital Problems Diagnosis ICH (intracerebral hemorrhage) Resolved Hospital Problems No resolved problems to display. There are no active non-hospital problems to display for this patient. Jovita Douglas MD 05/02/2023 Associated attestation - Nayana Barker MD - 05/03/2023 4:49 PM EDT I was the attending physician supervising the resident in the above care. For the purposes of billing, the resident provided the care. * Hua Hoang RCP - 05/02/2023 5:06 AM EDT AMV Protocol: Yes SBT Protocol: Yes SBT: Fail: RR > 35, Vt < 5 mL/kg Vent Settings: CPAP 10, PS 12, FIO2 50 Airway: 8.0 @ 22 cm at the Teeth. Skin Integrity: WDL Nebulized Medications: Albuterol & Ipratroprium Breath Sounds: Coarse Secretions: Moderate clear thin Assessment / Events / Plan of the Day: [facility] Tolerating above settings well. Hua Hoang RCP * Marion Vitale MD - 05/01/2023 3:10 PM EDT Hypertension-Nephrology Inpatient Follow-up Myla Acosta [id number] ID: 67 y.o. old male seen for OVI. Interval History: Overnight pt spiked a fever Patient intubated and sedated in the ICU with at bedside. discussed how dialysis was initially proposed but happy that he did not need it eventually as she was told his kidney function is improving. He remains quite edematous and his blood pressure seems to be very labile. He dropped to asystolic BP of 80 this morning following precedex administration. Today, pt's kidney function continues to improve, Cr continues down trending, his urine output is adequate reflecting signs of renal recovery. Physical Examination: Last value 24 Hour Temperature Range Temp: [36.7 ??C (98.1 ??F)-38.1 ??C (100.6 ??F)] 12 Hour Heart Rate Range Heart Rate: [54-67] 24 Hour Blood Pressure Range BP: -- Respiratory Rate Resp: 16 SpO2 SpO2: 94 % Body mass index is 40.53 kg/m??. General: Critically ill in ICU. CV: S1 and S2 regular. Faint. Resp: Coarse lung sounds. Intubated. Abd: Distended. Unable to assess for pain. Ext: 2+ edema in the lower extremities/hips. Skin: No rashes or lesions on the exposed skin. Neuro/psych: Sedated, not responsive today. protein powder 1 Scoop Per NG tube TID polyethylene glycoL (MIRALAX) oral powder 17 g Per NG tube BID piperacillin-tazobactam 3.375 g Intravenous Q8H ivabradine 7.5 mg Oral BID metOLazone 10 mg Per NG tube Daily dilTIAZem 30 mg Per NG tube Q6H YUSUF magnesium hydroxide 30 mL Per NG tube Daily ergocalciferoL (vitamin D2) 50,000 Units Per NG tube Weekly iron sucrose 300 mg Intravenous Every Other Day senna-docusate 2 tablet Per NG tube BID ipratropium-albuteroL 3 mL Nebulization Q4H chlorhexidine 15 mL Oral BID famotidine 20 mg Per NG tube BID tamsulosin 0.4 mg Oral Daily sodium chloride 4 mL Nebulization Q4H heparin (porcine) 5,000 Units Subcutaneous Q8H YUSUF lidocaine 1 patch Transdermal Q24H camphor-methyl salicyl-menthoL Topical (Top) BID Lab Results Component Value Date CREATININE 3.33 (H) 05/01/2023 CREATININE 3.51 (H) 04/30/2023 CREATININE 3.36 (H) 04/29/2023 CREATININE 3.19 (H) 04/29/2023 CREATININE 2.73 (H) 04/29/2023 ESTGFR 20 (L) 05/01/2023 ESTGFR 19 (L) 04/30/2023 ESTGFR 20 (L) 04/29/2023 ESTGFR 21 (L) 04/29/2023 ESTGFR 25 (L) 04/29/2023 NA 138 05/01/2023 NA 133 (L) 04/30/2023 NA 136 04/29/2023 K 4.1 05/01/2023 K 4.2 04/30/2023 K 4.0 04/29/2023 CO2 20 (L) 05/01/2023 CO2 19 (L) 04/30/2023 CO2 20 (L) 04/29/2023 Lab Results Component Value Date CALCIUM 8.8 05/01/2023 CALCIUM 8.8 04/30/2023 CALCIUM 8.7 04/29/2023 PHOS 4.0 05/01/2023 PHOS 5.4 (H) 04/30/2023 PHOS 5.0 (H) 04/29/2023 PTH 54 04/29/2023 25OHVITD 13 (L) 04/29/2023 TSH 0.74 04/19/2023 CK 74 04/28/2023 LDH 199 04/28/2023 Lab Results Component Value Date HGB 10.3 (L) 05/01/2023 HGB 11.0 (L) 04/29/2023 HGB 11.4 (L) 04/29/2023 FERRITIN 355 04/29/2023 IRONSAT 13 (L) 04/29/2023 Lab Results Component Value Date UMICALBCALC Not Calculated 04/29/2023 UPROTCREAT 0.2 04/29/2023 ALBUMIN 3.1 (L) 04/28/2023 ALBUMIN 3.5 04/23/2023 ALBUMIN 3.9 04/19/2023 Renal duplex 04/27, unable to see right kidney in the setting of bowel gas/positioning. No stenosis in the distal left renal artery but unable to rule out stenosis in the proximal to mid left renal artery. Right kidney adjacent to the true lumen, suggesting it is probably perfused. Urine sediment 04/28 remarkable for granular debris, suggestive of acute tubular damage. Assessment & Plan: Myla 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 male admitted in the setting of type B aortic dissection being seen for evaluation of concomitant OVI. Medical comorbidities include EtOH use disorder. He is s/p contrast with imaging performed on 04/24, urine sediment remarkable for granular debris which might fit withcontrast or hemodynamic injury. OVI like due to [place]-improving Type B Aortic Dissection Intracranial Hemorrhage Vitamin D deficiency Iron deficiency anemia -Patient showing signs of renal recovery, no urgent need for dialysis -Continue ergocalciferol 50,000 units weekly -Agree with IV iron sucrose 300 mg every other day x 3 for the iron deficiency anemia. -Please avoid NSAIDs, contrast, nephrotoxins and dose adjust renally toxic medications as able. This case was staffed with Dr. Brett Vitale MD Nephrology & Hypertension Fellow Associated attestation - Quinn West MD - 05/01/2023 11:34 PM EDT Patient was seen and examined in person with the renal fellow Dr. Vitale. Assessment and plan were formulated after discussion with me and I agree with them. Please see her notes for details. * Hanna Vela RCP - 05/01/2023 2:37 PM EDT AMV Protocol: Yes SBT Protocol: Yes Vent Settings: Ventilator Mode: VC Tidal Volume Set: 550 Resp Rate Set: 16 PEEP Set: 10 FiO2: 60 % Ventilator Measurements: Resp: 20 Vt Exhaled: 570 PIP: 26 MAP: 13.4 Plateau Press: 23 Ve: 9.2 PEEP: 10 cmH20 SpO2: 94 % EtCO2: 30 mmHg Airway: 8.0 @ 22 cm at the Teeth. Skin Integrity: WDL Nebulized Medications: 3% Hypertonic Saline Breath Sounds: Coarse. Secretions: Mod clear/white thin. Assessment / Events / Plan of the Day: Pt receive on the above VCV settings. No changes made today and will continue to wean per protocol and monitor closely. Hanna Vela RCP * Tana Smith MD - 05/01/2023 10:48 AM EDT ICU PROGRESS NOTE DOA: 04/18/2023 Room: [address] [place] [address]A Length of Stay: 13 ICU Length of Stay 13d 5h Myla Acosta ( ) is a 67 y.o. male with h/o etoh use, undoctored p/w R cerebellar hemorrhage with intraventricular extension, acute obstructive hydrocephalus s/p EVD placement, course c/b failed extubation 2/2 aspiration x 2, fluid overload. 24hr events: EVD clamped. EVD output: 226, ICP: 8-18. Medications: Scheduled Meds: vancomycin 1.5 g Intravenous Once polyethylene glycoL (MIRALAX) oral powder 17 g Per NG tube BID piperacillin-tazobactam 3.375 g Intravenous Q8H sodium chloride 2 g Per NG tube TID ivabradine 7.5 mg Oral BID metOLazone 10 mg Per NG tube Daily dilTIAZem 30 mg Per NG tube Q6H YUSUF magnesium hydroxide 30 mL Per NG tube Daily simethicone 40 mg Per NG tube Q6H ergocalciferoL (vitamin D2) 50,000 Units Per NG tube Weekly iron sucrose 300 mg Intravenous Every Other Day senna-docusate 2 tablet Per NG tube BID ipratropium-albuteroL 3 mL Nebulization Q4H chlorhexidine 15 mL Oral BID famotidine 20 mg Per NG tube BID shift total and Settings verification 1 each Intravenous 2 Times Daily - Shift Total tamsulosin 0.4 mg Oral Daily sodium chloride 4 mL Nebulization Q4H heparin (porcine) 5,000 Units Subcutaneous Q8H YUSUF lidocaine 1 patch Transdermal Q24H camphor-methyl salicyl-menthoL Topical (Top) BID thiamine 100 mg Intravenous Daily folic acid 1,000 mcg Per NG tube Daily multivitamin with minerals 1 tablet Per NG tube Daily Continuous Infusions: [MAR Hold] tube feeding diet Stopped (05/01/23 0006) PHENYLephrine Stopped (04/30/23 2154) propofoL 40 mcg/kg/min (05/01/23 1130) fentaNYL 25 mcg/hr (05/01/23 1000) PRN Meds:.vancomycin- intermittent dosing per levels, QUEtiapine, [DISCONTINUED] bisacodyl EC AND [DISCONTINUED] lactulose AND [DISCONTINUED] lactulose AND magnesium citrate AND Tap water enema, propofoL AND propofoL, fentaNYL AND [COMPLETED] fentaNYL AND fentaNYL AND shift total and Settings verification AND Assess, potassium chloride ER OR potassium chloride ER, acetaminophen, labetaloL, enalaprilat, bisacodyL, glucose 40% oral geL OR dextrose OR glucagon Vitals: Temp: [36.8 ??C (98.2 ??F)-38.1 ??C (100.6 ??F)] Heart Rate: [57-74] Resp: [15-22] BP: -- SpO2: [92 %-98 %] Heart Rate from SpO2: [57 bpm-74 bpm] Physical Exam: Cons: NAD, Cardiac: RRR S1S2 Pulm: CTAB, no W/R/R GI: S/NT/ND, BS+ MSK: WWP, no C/C/E Neuro Exam: MS: Eyes open to voice, tracking, following commands, disoriented to place and circumstances CN: PERRL, EOMI, blink to threat bilaterally, +c/g Motor: Normal bulk and tone throughout, 5/5 throughout Coord: RUE dysmetria I/Os: Intake/Output Summary (Last 24 hours) at 05/01/2023 1152 Last data filed at 05/01/2023 1000 Gross per 24 hour Intake 2738.21 ml Output 2508 ml Net 230.21 ml Labs: Last 3 wbc, hgb, hct plt Recent Labs 05/01/23 0040 04/29/23 2315 04/29/23 0105 WBC 9.6* 10.8* 11.4* HGB 10.3* 11.0* 11.4* HCT 31.7* 33.7* 34.1* PLATELET 269 257 229 Last 3 Lytes Recent Labs 05/01/23 0040 04/30/23 0515 04/29/23 2315 NA 138 133* 136 K 4.1 4.2 4.0 CL 106 101 103 CO2 20* 19* 20* BUN 64* 61* 58* CREATININE 3.33* 3.51* 3.36* Last 3 LFTs Recent Labs 04/28/23 0120 04/23/23 0024 04/19/23 0035 AST 26 28 22 ALT 38 26 19 ALKPHOS 61 64 66 BILITOT 0.5 0.4 0.3 BILIDIR 0.3 0.2 0.1 Last Ca, Mg, Phos Recent Labs 05/01/23 0040 CALCIUM 8.8 PHOS 4.0 MAGNESIUM 1.07 Last 3 Coags No results for input(s): PT, INR, PTT in the last 168 hours. Last 3 ProBNP, Trop, CK Recent Labs 04/28/23 1811 CK 74 Last 3 TFT Recent Labs 04/19/23 0035 TSH 0.74 Last 3 Lipids Recent Labs 05/01/23 0040 04/28/23 0120 04/23/23 0024 04/20/23 0110 04/19/23 0035 CHLPL -- -- -- -- 220 HDL -- -- -- -- 86 LDLDIRECT -- -- -- -- 129 TRIG 184 126 144 < > 78 < > = values in this interval not displayed. Last 3 HgbA1C Recent Labs 04/19/23 0035 HA1C 6.0* Ventilator settings: VC 16 550 60% 10 Micro: - 04/29: Scx NGTD Imaging/Studies: - I have reviewed all imaging for this admission. Assessment/Plan: Neuro - R cerebellar hemorrhage, likely HTNive, acute obstructive hydrocephalus s/p R frontal EVD placement, etoh use disorder. 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 CTH in AM - Analgesia: Tylenol - Precedex for agitation, wean as tolerated. PRN seroquel for agitation. CV - Aortic root dilation (4.5cm), aortic dissection uncertain if acute or chronic - Vascular consult appreciated: strict impulse control for HR < 80, SBP < 120 - Ivabradine, diltiazem. Vascular medicine help appreciated for BP management - Aspirin 81mg once EVD comes out - OP follow-up for aortic root dilation Pulm - Re-intubated for hypoxemic respiratory failure - Goal PaO2 > 60, paCO2 35-45, O2 sats > 92% - Ventilator liberation protocol - VAP precautions - WTE GI - Dysphagia - Resume TF - GI ppx with H2B FEN/ - Prerenal OVI - maintain euvolemia, I=O - Goal Na 135-145, K > 4, Mg > 1 - ICU potassium repletion protocol - Continue metolazone, nephrology consult appreciated - Flomax Heme - - goal Hgb > 7, INR < 1.5, Platelets > 10k - SCDs, SQH Endo - - goal glucose 120-180 --> Accuchecks and ISS - A1C 6 ID - afebrile, improving leukocytosis - Vanc/zosyn day 1 renally dosed - Reculture q72hr for temp > 101F --> UA, blood cx, sputum cx, CSF cx, CXR - acetaminophen PRN Core: Code status: FULL Dispo - ICU //////////////////////////////////////////////////////////////////////////////// //// Attestation: IS PATIENT CRITICALLY ILL ? Is there a high potential of sudden, clinically significant, or life threatening deterioration? YES Is there a need for direct personal assessment and management to treat/prevent multiple vital organfailure/deterioration? YES If this patient is not critically ill, the reason for continued hospitalization is n/a. PATIENT IS CRITICALLY ILL WITH THESE DIAGNOSES BEING MANAGED BY CCS TEAM: Mechanical ventilation I personally performed 30 minutes of aggregate critical care time exclusive of procedures and teaching. This includes time spent during direct patient evaluation and reassessment, interpreting diagnostic tests, directing life and/or organ supporting interventions and documentation on the unit. Tana Smith MD 05/01/2023 3:47 PM * Angelia Paulino, RD - 05/01/2023 10:06 AM EDT Nutrition Progress Note Myla 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 male with unknown pmhx (no PCP or listed medications) who presents asa transfer from an OSH for evaluation of a right cerebellar IPH. Now s/p R EVD placement 04/17 givenhydrocephalus. Reason for Assessment: ICU Tube Feeding, Follow-up Nutrition Recommendations: Adjust TF rate to compensate for propofol calories. Enteral Nutrition: Peptamen AF with a goal rate of 46 ml per hour plus 3 scoops protein powder daily. This rate is calculated to compensate for unplanned time off feedings due to potential procedures, etc. At goal, this will provide: Peptamen AF Total Volume Per Day: 920 mL Scoops of Protein: 3 Calories per Day: 1179 Protein per Day: 88 g Free Water mL per Day: 897 % RDI: 74 % Monitor hydration status on above TFs as they are concentrated. Pt may need additional fluids depending on IVFs, med flushes, etc. Mag and Phos with daily BMP or CMP labs; replenish as indicated. Daily weights. BG goal 140-180 in ICU. Propofol at current rate will provide 718 calories from lipid daily, or about 65 grams of fat/day. Monitor TG while on Propofol. VDE score <12, low risk for vasopressor related TF intolerance. I was able to discuss plan with provider [place] [id number] team . Current Nutrition Regimen: Active Orders Diet NPO diet (Give Meds) Frequency: Effective Now Number of Occurrences: Until Specified All Active TF Orders: Tubefeeding Orders (From admission, onward) Start Dose/Rate Route Frequency Ordered Stop 04/29/23 1115 [MAR Hold] tube feeding diet (MAR Hold since Mon05/01/2023 at 0007 by Eulalia Blakely RN.) 1,400 mL Per NG tube CONTINUOUS 04/29/23 1028 Average tube feeding provision over past 2 days; 1051 mL vs daily goal volume of 1400 mL formula (75% of goal) Tolerance or barriers to meeting needs: Holds Assessment: Lab Results Component Value Date NA 138 05/01/2023 K 4.1 05/01/2023 CL 106 05/01/2023 CO2 20 (L) 05/01/2023 BUN 64 (H) 05/01/2023 CREATININE 3.33 (H) 05/01/2023 ESTGFR 20 (L) 05/01/2023 MAGNESIUM 1.07 05/01/2023 CALCIUM 8.8 05/01/2023 PHOS 4.0 05/01/2023 AST 26 04/28/2023 ALT 38 04/28/2023 ALKPHOS 61 04/28/2023 BILITOT 0.5 04/28/2023 BILIDIR 0.3 04/28/2023 TRIG 126 04/28/2023 HA1C 6.0 (H) 04/19/2023 25OHVITD 13 (L) 04/29/2023 IRON 25 (L) 04/29/2023 No results found for: POCGLU Patient Lines/Drains/Airways Status Active Nutritional LDAs Name Placement date Placement time Site Days Naso/Oral Tube 04/23/23 1559 small bore weighted ([place]) right nostril 04/23/23 1559 right nostril 8 PIV 04/19/23 1416 20 gauge;1.75 in length cephalic vein (lateral side of arm), left 04/19/23 1416 -- 12 PICC Line 04/20/23 1410 Triple Lumen 5 Fr brachial vein, right 04/20/23 1410 -- 11 Urethral Catheter 04/24/23 1401 04/24/23 1401 -- 7 EVD (External Ventricular Drain) 04/18/23 0730 04/18/23 0730 -- 13 Fecal Incontinence Insurance Counselor 05/01/23 0330 05/01/23 0330 -- less than 1 Oxygen Therapy / Airway Device: Ventilator Shift Pressure Injury Prevention Occiput: No Injury Thoracic Spine: No Injury Sacral: No Injury Ischial - left: No Injury Ischial - right: No Injury Heel - left: No Injury Heel - right: No Injury Elbow - left: No Injury Elbow - right: No Injury Device Sites: BP Cuff, ECG Leads, rebolledo, IV sites, NGT, O2 sat monitor, SCD's / venodynes, wrist restraints Other Sites: EVD Last Bowel Movement: 05/01/23 Intake/Output Summary (Last 24 hours) at 05/01/2023 1057 Last data filed at 05/01/2023 1000 Gross per 24 hour Intake 2801.71 ml Output 2648 ml Net 153.71 ml Relevant medications: Continuous [MAR Hold] tube feeding diet Stopped (05/01/23 0006) PHENYLephrine Stopped (04/30/23 2154) propofoL 50 mcg/kg/min (05/01/23 1000) fentaNYL 25 mcg/hr (05/01/23 1000) Scheduled vancomycin 1.5 g Intravenous Once polyethylene glycoL (MIRALAX) oral powder 17 g Per NG tube BID piperacillin-tazobactam 3.375 g Intravenous Q8H sodium chloride 2 g Per NG tube TID ivabradine 7.5 mg Oral BID metOLazone 10 mg Per NG tube Daily dilTIAZem 30 mg Per NG tube Q6H YUSUF magnesium hydroxide 30 mL Per NG tube Daily simethicone 40 mg Per NG tube Q6H ergocalciferoL (vitamin D2) 50,000 Units Per NG tube Weekly iron sucrose 300 mg Intravenous Every Other Day senna-docusate 2 tablet Per NG tube BID ipratropium-albuteroL 3 mL Nebulization Q4H chlorhexidine 15 mL Oral BID famotidine 20 mg Per NG tube BID shift total and Settings verification 1 each Intravenous 2 Times Daily - Shift Total tamsulosin 0.4 mg Oral Daily sodium chloride 4 mL Nebulization Q4H heparin (porcine) 5,000 Units Subcutaneous Q8H YUSUF lidocaine 1 patch Transdermal Q24H camphor-methyl salicyl-menthoL Topical (Top) BID thiamine 100 mg Intravenous Daily folic acid 1,000 mcg Per NG tube Daily multivitamin with minerals 1 tablet Per NG tube Daily PRN vancomycin- intermittent dosing per levels, QUEtiapine, [DISCONTINUED] bisacodyl EC AND [DISCONTINUED] lactulose AND [DISCONTINUED] lactulose AND magnesium citrate AND Tap water enema, propofoL AND propofoL, fentaNYL AND [COMPLETED] fentaNYL AND fentaNYL AND shift total and Settings verification AND Assess, potassium chloride ER OR potassium chloride ER, acetaminophen, labetaloL, enalaprilat, bisacodyL, glucose 40% oral geL OR dextrose OR glucagon Anthropometrics: Admit Weight: 111.8 kg Estimated body mass index is 40.53 kg/m?? as calculated from the following: Height as of this encounter: 174 cm (5' 8.5). Weight as of this encounter: 122.7 kg (270 lb 8.1 oz). [place] Body Weight (IBW) (kg): 71.37 Wt Readings from Last 10 Encounters: 05/01/23 122.7 kg (270 lb 8.1 oz) Patient Vitals for the past 168 hrs: Weight 05/01/23 0500 122.7 kg (270 lb 8.1 oz) 04/29/23 0523 118.8 kg (261 lb 14.5 oz) 04/28/23 0530 123.5 kg (272 lb 4.3 oz) 04/27/23 0600 122.7 kg (270 lb 8.1 oz) 04/26/23 0300 121.8 kg (268 lb 8.3 oz) 04/25/23 0600 119.9 kg (264 lb 5.3 oz) Weight Source: Bed Estimated / Assessed Needs: Fluid Requirements: Estimated Fluid Requirement Method: Weight Based Method Weight Based Method: 30 Weight Based Calculation: 2142 mL Metabolic cart study: 1820 kcals Kcal / K - 1785 Kcal (20 Kcal/Kg - 25 Kcal/Kg) Estimated Protein Needs: 86 g - 107 g (1.2 g/Kg - 1.5 g/Kg) Nutrition intake and intake history / interview: 04/30: TF on APR hold. Propofol went up quite a bit. 04/27: Extubated and re-intubated. TF presently off. On small amt of propofol and javon. Multiple BM yesterday. Lasix drip. GFR <60. Met cart study 1820 kcals. 04/25: TF was off/on hold this morning due to TF formula not being available per flowsheet - checkedunit storage - plenty of Pep AF in top drawer. Pt back from CT scan and TF reportedly restarted. NoBM since 04/21. Phos and Na slightly low. 04/23: Consulted again for TF. Prior goal remains appropriate for now - advance to goal. Off propofol. Has small bore feeding tube. Needs to move bowels. NPO per TREASURY CONSULTANT. 04/19: Re-intubated. TF at 25 mL/hr today. On low dose propofol. No BM this admission. 04/17: Consulted for TF recommendations. May extubate tomorrow. On some propofol. On alcohol withdrawal protocol - thiamine, folic acid and Thera M ordered. Nutrition Focused Physical Exam: Not performed Reason NFPE Not Performed: Not indicated. Malnutrition Diagnosis: Not identified (Hieu, BETHANY J Parenteral Enteral Nutr. 2011; 36(3): 273-83) Nutrition to continue to follow up while inpatient Thank you, Angelia Paulino RDN, CNSC, LD Clinical Nutrition * Jovita Douglas MD - 05/01/2023 7:42 AM EDT NEUROSURGERY PROGRESS NOTE ID: Myla 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 male largely without routine medical care and not on any medications, presenting in transfer from OSH for R cerebellar IPH and intraventricular extension. S/p R EVD placement for hydrocephalous HD# 14 POD # INTERVAL HX/ROS: -No neurosurgical issues overnight. EVD remains open at 20. No ICP issues. -head CT this morning completed for baseline. Shows improvement in IVH burden. -Sedation being weaned as able per primary team. MEDICATIONS: Scheduled Meds: lidocaine 10 mL Subcutaneous Once protein powder 1 Scoop Per NG tube TID polyethylene glycoL (MIRALAX) oral powder 17 g Per NG tube BID piperacillin-tazobactam 3.375 g Intravenous Q8H ivabradine 7.5 mg Oral BID metOLazone 10 mg Per NG tube Daily dilTIAZem 30 mg Per NG tube Q6H YUSUF magnesium hydroxide 30 mL Per NG tube Daily ergocalciferoL (vitamin D2) 50,000 Units Per NG tube Weekly iron sucrose 300 mg Intravenous Every Other Day senna-docusate 2 tablet Per NG tube BID ipratropium-albuteroL 3 mL Nebulization Q4H chlorhexidine 15 mL Oral BID famotidine 20 mg Per NG tube BID tamsulosin 0.4 mg Oral Daily sodium chloride 4 mL Nebulization Q4H heparin (porcine) 5,000 Units Subcutaneous Q8H YUSUF lidocaine 1 patch Transdermal Q24H camphor-methyl salicyl-menthoL Topical (Top) BID Continuous Infusions: dexmedeTOMIDine (Precedex) (4 mcg/mL) in sodium chloride 0.9% 100 mL infusion 0- 1.7 mcg/kg/hr (Adjusted) Intravenous Continuous ### nitroGLYcerin (200 mcg/mL) in dextrose 5% 250 mL infusion 0-200 mcg/min Intravenous Continuous ### tube feeding diet 920 mL Per NG tube Continuous ### propofoL (Diprivan) (10 mg/mL) infusion 0-50 mcg/kg/min (Adjusted) Intravenous Continuous ### PRN Meds: fentaNYL (PF), vancomycin- intermittent dosing per levels, QUEtiapine, [DISCONTINUED] bisacodyl EC AND [DISCONTINUED] lactulose AND [DISCONTINUED] lactulose AND magnesium citrate AND Tap water enema, propofoL AND propofoL, potassium chloride ER OR potassium chloride ER, acetaminophen, labetaloL, enalaprilat, bisacodyL, glucose 40% oral geL OR dextrose OR glucagon EXAM: Vitals: Temp: [36.7 ??C (98.1 ??F)-37.7 ??C (99.8 ??F)] Heart Rate: [54-68] Resp: [12-22] BP: -- SpO2: [92 %-99 %] Heart Rate from SpO2: [53 bpm-68 bpm] BMI: Weight: 126.3 kg (278 lb 7.1 oz) (05/02/23 0600) I/O: I/O last 3 completed shifts: In: 4954.7 [I.V.:2905.7; NG/GT:1799; IV Piggyback:100] Out: 6288 [Urine:4560; Other:103; Stool:1625] EVD @ 01rmL7V, ICP WNL GEN: NEURO: Eyes open to stimulation PERRL, gaze conjugate Intubated, on prop 50 MOTOR: RUE: localizing LUE: localizing RLE: withdraw LLE: withdraw EVD site CDI LABS: Recent Labs 05/02/23 0105 05/01/23 0040 04/29/23 2315 WBC 8.0 9.6* 10.8* HGB 9.9* 10.3* 11.0* PLATELET 240 269 257 Recent Labs 05/02/23 0105 05/01/23 0040 04/30/23 0515 NA 137 138 133* K 4.2 4.1 4.2 CL 107 106 101 CO2 20* 20* 19* BUN 63* 64* 61* CREATININE 2.69* 3.33* 3.51* No results for input(s): PT, INR in the last 72 hours. IMAGING: CTH 04/26: IMPRESSION Slightly increased intraventricular hemorrhage. No additional significant change. CTH 04/25: IMPRESSION Decreasing volume and density of intraventricular hemorrhage. Decreasing size of ventricular system. Additional findings noted above without acute interval changes. Assessment: Myla 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 male largely without routine medical care and not on any medications, presenting in transfer from OSH for R cerebellar IPH and intraventricular extension. S/p R EVD placement for hydrocephalus. Doing well from neurologic standpoint, MRI done with no evidence of mass lesion. Weaning EVD as safely able. Head CT this morning complete, demonstrating improvement in IVH. Will clamp EVD and plan for repeat head CT tomorrow morning. Please hold [facility] in anticipation of EVD removal tomorrow. Problem List: IPH IVH Hydrocephalous Plan: - Q2HNC - Pain control - Imaging: CTH tomorrow morning - SBP<160 - Monitor EVD/ICP per protocol, clamped - DVT ppx: SCDs, please hold SQH. Hold ASA for now - Current Diet: NPO diet (Give Meds) - Further care per NCCU PLEASE PAGE [phone] WITH QUESTIONS Active Hospital Problems Diagnosis ICH (intracerebral hemorrhage) Resolved Hospital Problems No resolved problems to display. There are no active non-hospital problems to display for this patient. Jovita Douglas MD 05/02/2023 * Hua Hoang RCP - 05/01/2023 5:29 AM EDT AMV Protocol: Yes SBT Protocol: Yes SBT: Not performed/Excluded: PEEP greater than 10 cmH2O Vent Settings: AC 16, Vt 550, FiO2 60, +10 Airway: 8.0 @ 22 cm at the Teeth. Skin Integrity: WDL Nebulized Medications: Albuterol & Ipratroprium, 3% Hypertonic Saline Breath Sounds: Coarse Secretions: Copious thick yellowish white Assessment / Events / Plan of the Day: Patient currently on above ventilator settings. SPO2 96% at this time but told to wean FiO2 slowly. With turns (with left side up), patient known to desaturate. Hua Hoang RCP * Eliana Townsend RN - 04/30/2023 7:11 PM EDT OUTCOME EVALUATION NOTE: OUTCOME SUMMARY: Pt sedated, Propofol at 50mcg/kg/hr, intermittently follows commands. EVD in place @ 20 cmH2O, withlight pink drainage. Fent 50mcg/ml IV drip, Pt with ETT size 8, 22 at teeth, on ACVC 16/550/75/10 .Pt on NSR with 1 degree heart block, on Javon 25mcg/min. Last BM 04/27/23. Rebolledo in place with AUOP. PLAN MOVING FORWARD: Neuro checks q 4 VS/ICP q 1 EVD at [id number] SBP goal <120 HR goal<80 MAP>65 BLE NV assess Q4 Hold TF at midnight for CTH at 4am CPG GOAL OUTCOME EVALUATION: Problem: Restraint, Nonbehavioral (Nonviolent) Goal: Discontinuation Criteria Achieved 04/30/20231426 by Eliana Townsend, CARSON Outcome: Ongoing (Interventions Implemented as Appropriate) 04/30/2023 142 by Eliana Townsend, RN Outcome: Ongoing (Interventions Implemented as Appropriate) Problem: Adjustment to Illness (Stroke, Hemorrhagic) Goal: Optimal Coping 04/30/2023 142 by Eliana Townsend, RN Outcome: Ongoing (Interventions Implemented as Appropriate) 04/30/2023 142 by Eliana Townsend, RN Outcome: Ongoing (Interventions Implemented as Appropriate) Problem: Bowel Elimination Impaired (Stroke, Hemorrhagic) Goal: Effective Bowel Elimination 04/30/2023 142 by Eliana Townsend, CARSON Outcome: Ongoing (Interventions Implemented as Appropriate) 04/30/2023 142 by Eliana Townsend, RN Outcome: Ongoing (Interventions Implemented as Appropriate) Problem: Cerebral Tissue Perfusion (Stroke, Hemorrhagic) Goal: Optimal Cerebral Tissue Perfusion 04/30/2023 142 by Eliana Townsend, CARSON Outcome: Ongoing (Interventions Implemented as Appropriate) 04/30/2023 142 by Eliana Townsend, RN Outcome: Ongoing (Interventions Implemented as Appropriate) Problem: Cognitive Impairment (Stroke, Hemorrhagic) Goal: Optimal Cognitive Function 04/30/20231426 by Eliana Townsend, CARSON Outcome: Ongoing (Interventions Implemented as Appropriate) 04/30/2023 142 by Eliana Townsend, RN Outcome: Ongoing (Interventions Implemented as Appropriate) Problem: Communication Impairment (Stroke, Hemorrhagic) Goal: Effective Communication Skills 04/30/20231426 by Eliana Townsend, CARSON Outcome: Ongoing (Interventions Implemented as Appropriate) 04/30/2023 142 by Eliana Townsend, CARSON Outcome: Ongoing (Interventions Implemented as Appropriate) Problem: Functional Ability Impaired (Stroke, Hemorrhagic) Goal: Optimal Functional Ability 04/30/20231426 by Eliana Townsend, CARSON Outcome: Ongoing (Interventions Implemented as Appropriate) 04/30/2023 1427 by Eliana Townsend, CARSON Outcome: Ongoing (Interventions Implemented as Appropriate) Problem: Pain (Stroke, Hemorrhagic) Goal: Acceptable Pain Control 04/30/2023 1427 by Eliana Townsend, RN Outcome: Ongoing (Interventions Implemented as Appropriate) 04/30/2023 1427 by Eliana Townsend, RN Outcome: Ongoing (Interventions Implemented as Appropriate) Problem: Respiratory Compromise (Stroke, Hemorrhagic) Goal: Effective Oxygenation and Ventilation 04/30/2023 142 by Eliana Townsend, RN Outcome: Ongoing (Interventions Implemented as Appropriate) 04/30/2023 142 by Eliana Townsend, RN Outcome: Ongoing (Interventions Implemented as Appropriate) Problem: Sensorimotor Impairment (Stroke, Hemorrhagic) Goal: Improved Sensorimotor Function 04/30/2023 1427 by Eliana Townsend, RN Outcome: Ongoing (Interventions Implemented as Appropriate) 04/30/2023 1427 by Eliana Townsend, RN Outcome: Ongoing (Interventions Implemented as Appropriate) Problem: Swallowing Impairment (Stroke, Hemorrhagic) Goal: Oral Intake without Aspiration 04/30/2023 1427 by Eliana Townsend, CARSON Outcome: Ongoing (Interventions Implemented as Appropriate) 04/30/2023 1427 by Eliana Townsend, RN Outcome: Ongoing (Interventions Implemented as Appropriate) Problem: Urinary Elimination Impaired (Stroke, Hemorrhagic) Goal: Effective Urinary Elimination 04/30/2023 1427 by Eliana Townsend, RN Outcome: Ongoing (Interventions Implemented as Appropriate) 04/30/2023 1427 by Eliana Townsend, RN Outcome: Ongoing (Interventions Implemented as Appropriate) Problem: Fall Injury Risk Goal: Absence of Fall and Fall-Related Injury 04/30/2023 142 by Eliana Townsend, RN Outcome: Ongoing (Interventions Implemented as Appropriate) 04/30/2023 142 by Eliana Townsend, RN Outcome: Ongoing (Interventions Implemented as Appropriate) Problem: Adult Inpatient Plan of Care Goal: Plan of Care Review 04/30/2023 1427 by Eliana Townsend RN Outcome: Ongoing (Interventions Implemented as Appropriate) 04/30/2023 1427 by Eliana Townsend RN Outcome: Ongoing (Interventions Implemented as Appropriate) Goal: Patient-Specific Goal (Individualized) 04/30/2023 1427 by Eliana Townsend, CARSON Outcome: Ongoing (Interventions Implemented as Appropriate) 04/30/2023 1427 by Eliana Townsend, RN Outcome: Ongoing (Interventions Implemented as Appropriate) Goal: Absence of Hospital-Acquired Illness or Injury 04/30/2023 1427 by Eliana Townsend, RN Outcome: Ongoing (Interventions Implemented as Appropriate) 04/30/2023 1427 by Eliana Townsend RN Outcome: Ongoing (Interventions Implemented as Appropriate) Goal: Optimal Comfort and Wellbeing 04/30/2023 142 by Eliana Townsend RN Outcome: Ongoing (Interventions Implemented as Appropriate) 04/30/2023 1427 by Eliana Townsend RN Outcome: Ongoing (Interventions Implemented as Appropriate) Goal: Readiness for Transition of Care 04/30/2023 1427 by Eliana Townsend RN Outcome: Ongoing (Interventions Implemented as Appropriate) 04/30/2023 1427 by Eliana Townsend RN Outcome: Ongoing (Interventions Implemented as Appropriate) * Beto Bravo [facility] - 04/30/2023 4:56 PM EDT AMV Protocol: Yes SBT Protocol: Yes SBT: Vent Settings: Ventilator Mode: VC Tidal Volume Set: 550 Resp Rate Set: 16 PEEP Set: 10 FiO2: 75 % Ventilator Measurements: Resp: 21 Vt Exhaled: 556 PIP: 33 MAP: 15 Plateau Press: 27 Ve: 9.2 PEEP: 10 cmH20 SpO2: 95 % EtCO2:34 mmHg Airway: 8.0 @ 22 cm at the Teeth. Skin Integrity: WDL Nebulized Medications: Albuterol & Ipratropriumq4 3% saline q 4 IPV 3 x d Breath Sounds: coarse Secretions: large pale yellow Assessment / Events / Plan of the Day: pt remains in VC laurie well Pt still requiring high O2 Treatments given ET armstrong changed Sputem sample sent Will continue to monitor pt 04/29 sputem Value Gram Stain Abnormal Many Neutrophils seen No squamous epithelial cells seen Many Gram Positive Cocci seen 04/29 cxr IMPRESSION * Right arm PICC terminates in the right atrium. Consider slight retraction. * Apparent widening of the mediastinal silhouette may be artifactual/projectional, however, possibility of a mediastinal hematoma should be considered. Repeat radiograph with better inspiration is recommended. * Mild central pulmonary vascular congestion. * Hazy retrocardiac opacity: Atelectasis versus infiltrate. * Trace left pleural effusion. BETO BRAVO RCP * Edis Skaggs MD - 04/30/2023 9:50 AM EDT STAFF PROGRESS NOTE Neurocritical Care Author: EDIS SKAGGS MD Patient seen and examined on neurocritical care rounds. Myla 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 male with the following active issues:: Cerebellar hemorrhage Aortic dissection Respiratory failure ASSESSMENT, MANAGEMENT, and DECISION MAKING: Neuro: propofol for sedation and fentanyl for pain Hemodynamics: cardiology input appreciated; management of impulse control while maintaining perfusion remains challenging; on ivabradine, metoprolol and javon Pulmonary: desaturation episode with turning; has required increase in level of support; CXR with retrocardiac haziness will send sputum for culture Renal:Na+ 133; Cr increasing but urine output ~30cc/H; GI: TF at goal Heme: SQ heparin Endo:glucose control acceptable ID: await sputum Gr stain and culture EXAM: Physical Exam Eyes open, appears to fix gaze, does not reliably follow commands Lungs: coarse breath sounds Heart: RRR Abdomen: distended Ext: moderate edema Last value Range last 24 hrs Temperature Temp: 37.4 ??C (99.3 ??F) Temp: [37.4 ??C (99.3 ??F)-37.5 ??C (99.5 ??F)] Heart Rate Heart Rate: 73 Heart Rate: [57-73] Blood Pressure BP: (S) 108/61 BP: (102-108)/(48-61) Respiratory Rate Resp: 19 Resp: [11-21] SpO2 SpO2: 96 % SpO2: [92 %-96 %] Art BP BP (Arterial Line): 105/40 BP (Arterial Line): (93-121)/(35-56) Last Ht 04/18/23 174 cm (5' 8.5) Last Wt 04/29/23 118.8 kg (261 lb 14.5 oz) Body mass index is 39.24 kg/m??. IS PATIENT CRITICALLY ILL ? Is there a high potential of sudden, clinically significant, or life threatening deterioration? Yes Is there a need for direct personal assessment and management to treat/prevent multiple vital organfailure/deterioration? Yes PATIENT IS CRITICALLY ILL WITH THESE DIAGNOSES BEING MANAGED BY CCS TEAM: Hypoxemic respiratory failure Aortic dissection I personally performed 30 minutes of aggregate critical care time exclusive of procedures and teaching. This includes time spent during direct patient evaluation and reassessment, interpreting diagnostic tests, directing life and/or organ supporting interventions and documentation on the unit. EDIS SKAGGS MD 04/30/2023 * Jovita Douglas MD - 04/30/2023 9:30 AM EDT NEUROSURGERY PROGRESS NOTE ID: Myla 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 male largely without routine medical care and not on any medications, presenting in transfer from OSH for R cerebellar IPH and intraventricular extension. S/p R EVD placement for hydrocephalous HD# 12 POD # INTERVAL HX/ROS: -No neurosurgical issues overnight. EVD remains open at 20. No ICP issues. MEDICATIONS: Scheduled Meds: sodium chloride 2 g Per NG tube TID ivabradine 7.5 mg Oral BID metOLazone 10 mg Per NG tube Daily dilTIAZem 30 mg Per NG tube Q6H YUSUF magnesium hydroxide 30 mL Per NG tube Daily polyethylene glycoL (MIRALAX) oral powder 17 g Per NG tube Daily simethicone 40 mg Per NG tube Q6H ergocalciferoL (vitamin D2) 50,000 Units Per NG tube Weekly iron sucrose 300 mg Intravenous Every Other Day senna-docusate 2 tablet Per NG tube BID ipratropium-albuteroL 3 mL Nebulization Q4H chlorhexidine 15 mL Oral BID famotidine 20 mg Per NG tube BID shift total and Settings verification 1 each Intravenous 2 Times Daily - Shift Total tamsulosin 0.4 mg Oral Daily sodium chloride 4 mL Nebulization Q4H heparin (porcine) 5,000 Units Subcutaneous Q8H YUSUF lidocaine 1 patch Transdermal Q24H camphor-methyl salicyl-menthoL Topical (Top) BID thiamine 100 mg Intravenous Daily folic acid 1,000 mcg Per NG tube Daily multivitamin with minerals 1 tablet Per NG tube Daily Continuous Infusions: tube feeding diet 1,400 mL Per NG tube Continuous ### PHENYLephrine (Javon-Synephrine) (80 mcg/mL) in sodium chloride 0.9% 250 mL infusion 0-180 mcg/min Intravenous Continuous ### propofoL (Diprivan) (10 mg/mL) infusion 0-50 mcg/kg/min (Adjusted) Intravenous Continuous ### fentaNYL (PF) (50 mcg/mL) infusion syringe 50 mL 0-100 mcg/hr Intravenous Continuous ### PRN Meds: QUEtiapine, [DISCONTINUED] bisacodyl EC AND lactulose AND lactulose AND magnesium citrate AND Tap water enema, propofoL AND propofoL, fentaNYL AND [COMPLETED] fentaNYL AND fentaNYL AND shift total and Settings verification AND Assess, potassium chlorideER OR potassium chloride ER, acetaminophen, labetaloL, enalaprilat, bisacodyL, glucose 40% oralgeL OR dextrose OR glucagon EXAM: Vitals: Temp: [37.4 ??C (99.3 ??F)-37.5 ??C (99.5 ??F)] Heart Rate: [57-73] Resp: [11-21] BP: (102-108)/(48-61) SpO2: [92 %-96 %] Heart Rate from SpO2: [57 bpm-73 bpm] BMI: Weight: 118.8 kg (261 lb 14.5 oz) (04/29/23522) I/O: I/O last 3 completed shifts: In: 6289.8 [I.V.:3755.8; NG/GT:2339; IV Piggyback:115] Out: 2706 [Urine:2424; Other:282] EVD @ 34xgP5X, ICP WNL GEN: NEURO: Eyes open to stimulation PERRL, gaze conjugate Does not answer orientation questions, but yells when stimulated No facial asymmetry Very [place] MOTOR: RUE: M5 LUE: M5 RLE: Wiggles toes to command LLE: Wiggles toes to command EVD site CDI LABS: Recent Labs 04/29/23 2315 04/29/23 0105 04/28/23 0120 WBC 10.8* 11.4* 11.7* HGB 11.0* 11.4* 11.5* PLATELET 257 229 244 Recent Labs 04/30/23 0515 04/29/23 2315 04/29/23 1750 NA 133* 136 137 K 4.2 4.0 4.1 CL 101 103 104 CO2 19* 20* 20* BUN 61* 58* 56* CREATININE 3.51* 3.36* 3.19* No results for input(s): PT, INR in the last 72 hours. IMAGING: CTH 04/26: IMPRESSION Slightly increased intraventricular hemorrhage. No additional significant change. CTH 04/25: IMPRESSION Decreasing volume and density of intraventricular hemorrhage. Decreasing size of ventricular system. Additional findings noted above without acute interval changes. Assessment: Myla 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 male largely without routine medical care and not on any medications, presenting in transfer from OSH for R cerebellar IPH and intraventricular extension. S/p R EVD placement for hydrocephalus. Doing well from neurologic standpoint, MRI done with no evidence of mass lesion. Weaning EVD as safely able. Will plan to get a repeat head CT tomorrow and consideration of reattempting clamp trial. If dialysis needs to be initiated from the cardiorenal standpoint, just recommendno heparin boluses. Problem List: IPH IVH Hydrocephalous Plan: - Q2HNC - Pain control - Imaging: CTH Monday AM - SBP<160 - Monitor EVD/ICP per protocol, open at 20, - DVT ppx: SCDs, Ok SQH. Hold ASA for now - Current Diet: NPO diet (Give Meds) - Further care per NCCU PLEASE PAGE [phone] WITH QUESTIONS Active Hospital Problems Diagnosis ICH (intracerebral hemorrhage) Resolved Hospital Problems No resolved problems to display. There are no active non-hospital problems to display for this patient. Jovita Douglas MD 04/30/2023 * Peewee Chu MD - 04/30/2023 7:20 AM EDT Hypertension-Nephrology Inpatient Follow-up Myla Acosta [id number] 1955 ID: 67 y.o. old male seen for OVI. Interval History: Remains in ICU, intubated, not responsive. Abdomen subjectively more distended today. Bladder pressure overnight was 16. Not responsive to voice. Urine output dropped over the past 24 hours, creatinine continues to uptrend. Physical Examination: Last value 24 Hour Temperature Range Temp: [37.4 ??C (99.3 ??F)-37.8 ??C (100 ??F)] 12 Hour Heart Rate Range Heart Rate: [60-70] 24 Hour Blood Pressure Range BP: (102-108)/(48-61) Respiratory Rate Resp: 16 SpO2 SpO2: 93 % Body mass index is 39.24 kg/m??. General: Critically ill in ICU. CV: S1 and S2 regular. Faint. Resp: Coarse lung sounds. Intubated. Abd: Distended. Unable to assess for pain. Ext: 2+ edema in the lower extremities/hips. Skin: No rashes or lesions on the exposed skin. Neuro/psych: Sedated, not responsive today. sodium chloride 2 g Per NG tube TID ivabradine 7.5 mg Oral BID metOLazone 10 mg Per NG tube Daily dilTIAZem 30 mg Per NG tube Q6H [facility] magnesium hydroxide 30 mL Per NG tube Daily polyethylene glycoL (MIRALAX) oral powder 17 g Per NG tube Daily simethicone 40 mg Per NG tube Q6H ergocalciferoL (vitamin D2) 50,000 Units Per NG tube Weekly iron sucrose 300 mg Intravenous Every Other Day senna-docusate 2 tablet Per NG tube BID ipratropium-albuteroL 3 mL Nebulization Q4H chlorhexidine 15 mL Oral BID famotidine 20 mg Per NG tube BID shift total and Settings verification 1 each Intravenous 2 Times Daily - Shift Total tamsulosin 0.4 mg Oral Daily sodium chloride 4 mL Nebulization Q4H heparin (porcine) 5,000 Units Subcutaneous Q8H YUSUF lidocaine 1 patch Transdermal Q24H camphor-methyl salicyl-menthoL Topical (Top) BID thiamine 100 mg Intravenous Daily folic acid 1,000 mcg Per NG tube Daily multivitamin with minerals 1 tablet Per NG tube Daily Lab Results Component Value Date CREATININE 3.51 (H) 04/30/2023 CREATININE 3.36 (H) 04/29/2023 CREATININE 3.19 (H) 04/29/2023 CREATININE 2.73 (H) 04/29/2023 CREATININE 2.30 (H) 04/29/2023 ESTGFR 19 (L) 04/30/2023 ESTGFR 20 (L) 04/29/2023 ESTGFR 21 (L) 04/29/2023 ESTGFR 25 (L) 04/29/2023 ESTGFR 31 (L) 04/29/2023 NA 133 (L) 04/30/2023 NA 136 04/29/2023 NA 137 04/29/2023 K 4.2 04/30/2023 K 4.0 04/29/2023 K 4.1 04/29/2023 CO2 19 (L) 04/30/2023 CO2 20 (L) 04/29/2023 CO2 20 (L) 04/29/2023 Lab Results Component Value Date CALCIUM 8.8 04/30/2023 CALCIUM 8.7 04/29/2023 CALCIUM 8.7 04/29/2023 PHOS 5.4 (H) 04/30/2023 PHOS 5.0 (H) 04/29/2023 PHOS 4.8 (H) 04/29/2023 PTH 54 04/29/2023 25OHVITD 13 (L) 04/29/2023 TSH 0.74 04/19/2023 CK 74 04/28/2023 LDH 199 04/28/2023 Lab Results Component Value Date HGB 11.0 (L) 04/29/2023 HGB 11.4 (L) 04/29/2023 HGB 11.5 (L) 04/28/2023 FERRITIN 355 04/29/2023 IRONSAT 13 (L) 04/29/2023 Lab Results Component Value Date UMICALBCALC Not Calculated 04/29/2023 UPROTCREAT 0.2 04/29/2023 ALBUMIN 3.1 (L) 04/28/2023 ALBUMIN 3.5 04/23/2023 ALBUMIN 3.9 04/19/2023 Renal duplex 04/27, unable to see right kidney in the setting of bowel gas/positioning. No stenosis in the distal left renal artery but unable to rule out stenosis in the proximal to mid left renal artery. Right kidney adjacent to the true lumen, suggesting it is probably perfused. Urine sediment 04/28 remarkable for granular debris, suggestive of acute tubular damage. Assessment & Plan: Myla 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 male admitted in the setting of type B aortic dissection being seen for evaluation of concomitant OVI. Medical comorbidities include EtOH use disorder. He is s/p contrast with imaging performed on 04/24, urine sediment remarkable for granular debris which might fit withcontrast or hemodynamic injury. Uptrending creatinine today fits with the timeline for either. Remains oliguric, creatinine increasing, net +7.2 L this admission. No urgent need indication for renal replacement therapy, though we suspect renal function may get worse before it gets better. Discussed possibility of CVVH in the coming days with primary team today. They will bring this possibility up again with family, as it is unclear if they want to consent to this if it were needed. OVI Type B Aortic Dissection Intracranial Hemorrhage Vitamin D deficiency Iron deficiency anemia -Recommend repeat bladder pressure today if able. -Continue ergocalciferol 50,000 units weekly -Agree with IV iron sucrose 300 mg every other day x 3 for the iron deficiency anemia. Please avoid NSAIDs, contrast, nephrotoxins and dose adjust renally toxic medications as able. This case was staffed with Dr. Snyder and discussed with primary team. We will continue to follow closely. Peewee Chu MD Nephrology & Hypertension Fellow Associated attestation - Ekaterina Snyder MD - 04/30/2023 7:26 PM EDT I have seen and examined M , reviewed the relevant clinical and laboratory data and images, and discussed the case with Dr Chu. His note accurately reflects our jointly formulated assessment and recommendations for management. I agree that there is no clinical or metabolic indication for urgent or emergent renal replacement therapy at this time Next planned dialysis treatment tomorrow. I have seen and examined Teetee on CRRT and discussed the case with Dr Chu and the [facility] team. The CRRT orders, data, and labs were reviewed. Tolerating CRRT with net ultrafiltration ml/hour. No current access or filter issues. Electrolytes, acid/base, calcium, and phophate reviewed: No changes made to current CRRT orders. I have seen and examined Mr Acosta on hemodialysis in the acute dialysis unit, reviewed the relevant clinical and laboratory data and images and discussed the case with Dr Chu. 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 Oligoanuric acute kidney injury likely hemodynamic. Renal duplex shows patent right renal artery, left could not be visualized. I agree multiple indications for initiation of continuous renal replacement therapy including hemodynamic instability, volume overload, +12.4 L since admission, metabolic acidosis, and rising serum BUN and creatinine Thank you for this consult. We will continue to follow. * Hua Hoang RCP - 04/30/2023 3:57 AM EDT AMV Protocol: Yes SBT Protocol: Yes SBT: Fail: RR > 35, Vt < 5 mL /kg Vent Settings: AC 16, Vt 550, FiO2 75, PEEP 10 Airway: 8.0 @ 22 cm at the Teeth. Skin Integrity: WDL Nebulized Medications: 3% Hypertonic Saline, Albuterol & Ipratroprium Breath Sounds: Coarse Secretions: Moderate thick white Assessment / Events / Plan of the Day: Patient tolerated settings CPAP 10, PS 15 50% all night until ~550. After a patient turn, SPO2 decreased to 86%. Increased FIO2 to 75. PA aware. Hua Hoang RCP * Toribio Shen RCP - 04/29/2023 6:10 PM EDT AMV Protocol: Yes SBT Protocol: Yes Vent Settings: Ventilator Mode: PS/CPAP Tidal Volume Set: 550 Resp Rate Set: 14 PEEP Set: 10 FiO2: 56 % Ventilator Measurements: Resp: 15 Vt Exhaled: 509 PIP: 26 MAP: 15.1 Plateau Press: 21 Ve: 6.4 PEEP: 8 cmH20 SpO2: 94 % EtCO2: 37 mmHg Airway: 8.0 @ 22 cm at the Teeth. Skin Integrity: WDL Nebulized Medications: 3% Hypertonic Saline Breath Sounds: Coarse/Diminished bilaterally Secretions: Moderate clear/white with red streaks, thick Assessment / Events / Plan of the Day: PS increased to 16 due to low tidal volumes on PSV. ABG on settings: 7.32/38/69/19. Treatments remain duoneb/3% Q4 Toribio Shen RCP * Maliha Bennett MD - 04/29/2023 9:44 AM EDT NEUROSURGERY PROGRESS NOTE ID: Myla 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 male largely without routine medical care and not on any medications, presenting in transfer from OSH for R cerebellar IPH and intraventricular extension. S/p R EVD placement for hydrocephalous HD# 11 POD # INTERVAL HX/ROS: -No neurological issues -EVD remains at 20 -Intubated MEDICATIONS: Scheduled Meds: sodium chloride 2 g Per NG tube TID ergocalciferoL (vitamin D2) 800 Units Oral Daily ivabradine 7.5 mg Oral BID dilTIAZem 60 mg Per NG tube Q6H [facility] metOLazone 10 mg Per NG tube Daily ivabradine 2.5 mg Oral Once carvediloL 6.25 mg Per NG tube Q12H senna-docusate 2 tablet Per NG tube BID ipratropium-albuteroL 3 mL Nebulization Q4H chlorhexidine 15 mL Oral BID famotidine 20 mg Per NG tube BID shift total and Settings verification 1 each Intravenous 2 Times Daily - Shift Total magnesium hydroxide 30 mL Oral Daily tamsulosin 0.4 mg Oral Daily polyethylene glycoL (MIRALAX) oral powder 17 g Oral Daily sodium chloride 4 mL Nebulization Q4H heparin (porcine) 5,000 Units Subcutaneous Q8H YUSUF lidocaine 1 patch Transdermal Q24H camphor-methyl salicyl-menthoL Topical (Top) BID thiamine 100 mg Intravenous Daily folic acid 1,000 mcg Per NG tube Daily multivitamin with minerals 1 tablet Per NG tube Daily Continuous Infusions: tube feeding diet 1,400 mL Per NG tube Continuous ### furosemide (Lasix) (1 mg/mL) infusion 100 mg vial attached to sodium chloride 0.9% 100 mL Mini-Bag Plus 20 mg/hr Intravenous Continuous ### PHENYLephrine (Javon-Synephrine) (80 mcg/mL) in sodium chloride 0.9% 250 mL infusion 0-180 mcg/min Intravenous Continuous ### propofoL (Diprivan) (10 mg/mL) infusion 0-50 mcg/kg/min (Adjusted) Intravenous Continuous ### fentaNYL (PF) (50 mcg/mL) infusion syringe 50 mL 0-100 mcg/hr Intravenous Continuous ### PRN Meds: [DISCONTINUED] bisacodyl EC AND lactulose AND lactulose AND magnesium citrateAND Tap water enema, propofoL AND propofoL, fentaNYL AND [COMPLETED] fentaNYL AND fentaNYL AND shift total and Settings verification AND Assess, potassium chloride ER OR potassium chloride ER, QUEtiapine, acetaminophen, labetaloL, enalaprilat, bisacodyL, glucose 40% oralgeL OR dextrose OR glucagon EXAM: Vitals: Temp: [37.2 ??C (98.9 ??F)-37.9 ??C (100.2 ??F)] Heart Rate: [54-77] Resp: [12-23] BP: (105-120)/(40-63) SpO2: [90 %-98 %] Heart Rate from SpO2: [49 bpm-75 bpm] BMI: Weight: 118.8 kg (261 lb 14.5 oz) (04/29/23 2567) I/O: I/O last 3 completed shifts: In: 5155.1 [I.V.:3786.1; NG/GT:1339] Out: 5252 [Urine:4983; Other:269] EVD @ 10zoA5E, ICP WNL GEN: NEURO: Eyes open to stimulation PERRL, gaze conjugate Does not answer orientation questions, but yells when stimulated No facial asymmetry Very [employer] [employer]: RUE: M5 LUE: M5 RLE: Wiggles toes to command LLE: Wiggles toes to command EVD site CDI LABS: Recent Labs 04/29/23 0105 04/28/23 0120 WBC 11.4* 11.7* HGB 11.4* 11.5* PLATELET 229 244 Recent Labs 04/29/23 0507 04/29/23 0105 04/28/23 1811 NA 134* 136 134* K 3.8 3.7 3.7 CL 101 102 101 CO2 20* 21* 20* BUN 49* 45* 41* CREATININE 2.30* 2.16* 1.93* No results for input(s): PT, INR in the last 72 hours. IMAGING: CTH 04/26: IMPRESSION Slightly increased intraventricular hemorrhage. No additional significant change. CTH 04/25: IMPRESSION Decreasing volume and density of intraventricular hemorrhage. Decreasing size of ventricular system. Additional findings noted above without acute interval changes. Assessment: Myla 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 male largely without routine medical care and not on any medications, presenting in transfer from OSH for R cerebellar IPH and intraventricular extension. S/p R EVD placement for hydrocephalus. Doing well from neurologic standpoint, MRI done with no evidence of mass lesion. Weaning EVD as safely able. Plan for CTH on Monday and will discuss clamp trial at that point. Problem List: IPH IVH Hydrocephalous Plan: - Q2HNC - Pain control - Imaging: CTH Monday AM - SBP<160 - Monitor EVD/ICP per protocol, open at 20, - DVT ppx: SCDs, Ok SQH. Hold ASA for now - Current Diet: NPO diet (Give Meds) - Further care per NCCU PLEASE PAGE [phone] WITH QUESTIONS Active Hospital Problems Diagnosis ICH (intracerebral hemorrhage) Resolved Hospital Problems No resolved problems to display. There are no active non-hospital problems to display for this patient. Maliha Bennett MD 04/29/2023 Associated attestation - Nayana Barker MD - 05/03/2023 4:47 PM EDT I was the attending physician supervising the resident in the above care. For the purposes of billing, the resident provided the care. * Edis Skaggs MD - 04/29/2023 9:35 AM EDT STAFF PROGRESS NOTE Neurocritical Care Author: EDIS SKAGGS MD Patient seen and examined on neurocritical care rounds. Myla 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 male with the following active issues:: Cerebellar hemorrhage Respiratory failure ASSESSMENT, MANAGEMENT, and DECISION MAKING: Neuro: PBD 11; EVD at 10 with 180 cc/24 hours; propofol for sedation and fentalnyl for pain Hemodynamics: managing impulse control has been challenging; vascular surgery and cardiology input appreciated; goals of SBP< 120 and HR <80 Pulmonary: has failed two extubation trials; FIO2 55% and increase in PEEP to 10 PSV 16 Renal: nephrology input appreciated; net 1L diuresis yesterday with Lasix; metolazone; BUN and Cr continue to increase GI: TF Heme: SQ heparin Endo: no issues ID: WBC stable, afebrile EXAM: Physical Exam Intubated, opens eyes to voice, follows some simple commands Lungs: clear Heart: RRR Abdomen: soft Ext: moderate edema Last value Range last 24 hrs Temperature Temp: 37.9 ??C (100.2 ??F) Temp: [37.2 ??C (98.9 ??F)-37.9 ??C (100.2 ??F)] Heart Rate Heart Rate: 66 Heart Rate: [54-77] Blood Pressure BP: 106/53 BP: (105-120)/(40-63) Respiratory Rate Resp: 19 Resp: [12-23] SpO2 SpO2: 93 % SpO2: [90 %-98 %] Art BP BP (Arterial Line): 100/50 BP (Arterial Line): (89-157)/(35-110) Last Ht 04/18/23 174 cm (5' 8.5) Last Wt 04/29/23 118.8 kg (261 lb 14.5 oz) Body mass index is 39.24 kg/m??. IS PATIENT CRITICALLY ILL ? Is there a high potential of sudden, clinically significant, or life threatening deterioration? Yes Is there a need for direct personal assessment and management to treat/prevent multiple vital organfailure/deterioration? Yes PATIENT IS CRITICALLY ILL WITH THESE DIAGNOSES BEING MANAGED BY CCS TEAM: Cerebellar hemorrhage Hypoxemic Respiratory failure I personally performed 30 minutes of aggregate critical care time exclusive of procedures and teaching. This includes time spent during direct patient evaluation and reassessment, interpreting diagnostic tests, directing life and/or organ supporting interventions and documentation on the unit. EDIS SKAGGS MD 04/29/2023 * Trang Echeverria MD - 04/29/2023 8:02 AM EDT CARDIOVASCULAR MEDICINE PROGRESS NOTE Primary Care Provider: Fransico Remy MD Referring: Nayana Blackwood MD [address] [place] [address] [place] [address] Myla 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 male who is here for ICH found to have type B dissection. HR goal <60 initially achieved on ivabradine. BP <120 achieved but on phenylephrine still . Over the past day, he has had no chest pain, dyspnea, orthopnea, or PND. There have been no significant new findings on telemetry. MEDICATIONS: Scheduled Meds: sodium chloride 2 g Per NG tube TID ergocalciferoL (vitamin D2) 800 Units Oral Daily dilTIAZem 90 mg Per NG tube Q6H YUSUF metOLazone 10 mg Per NG tube Daily carvediloL 6.25 mg Per NG tube Q12H senna-docusate 2 tablet Per NG tube BID ipratropium-albuteroL 3 mL Nebulization Q4H chlorhexidine 15 mL Oral BID famotidine 20 mg Per NG tube BID shift total and Settings verification 1 each Intravenous 2 Times Daily - Shift Total ivabradine 5 mg Oral BID magnesium hydroxide 30 mL Oral Daily tamsulosin 0.4 mg Oral Daily polyethylene glycoL (MIRALAX) oral powder 17 g Oral Daily sodium chloride 4 mL Nebulization Q4H heparin (porcine) 5,000 Units Subcutaneous Q8H YUSUF lidocaine 1 patch Transdermal Q24H camphor-methyl salicyl-menthoL Topical (Top) BID thiamine 100 mg Intravenous Daily folic acid 1,000 mcg Per NG tube Daily multivitamin with minerals 1 tablet Per NG tube Daily Continuous Infusions: tube feeding diet furosemide 20 mg/hr (04/29/23 0652) PHENYLephrine 125 mcg/min (04/29/23 0745) propofoL 30 mcg/kg/min (04/29/23 0200) fentaNYL 25 mcg/hr (04/29/23 0100) PRN Meds:.[DISCONTINUED] bisacodyl EC AND lactulose AND lactulose AND magnesium citrateAND Tap water enema, propofoL AND propofoL, fentaNYL AND [COMPLETED] fentaNYL AND fentaNYL AND shift total and Settings verification AND Assess, potassium chloride ER OR potassium chloride ER, QUEtiapine, acetaminophen, labetaloL, enalaprilat, bisacodyL, glucose 40% oralgeL OR dextrose OR glucagon EXAMINATION: Last value Range last 24 hrs Temperature Temp: 37.9 ??C (100.2 ??F) Temp: [37.2 ??C (98.9 ??F)-37.9 ??C (100.2 ??F)] Heart Rate Heart Rate: 63 Heart Rate: [54-77] Blood Pressure BP: 119/63 BP: (105-120)/(40-63) Respiratory Rate Resp: 21 Resp: [12-21] SpO2 SpO2: 93 % SpO2: [90 %-98 %] Ill appearing, nasal cannula, NGT, EVT Skin: warm and dry. HEENT: benign Neck: Carotid upstrokes and amplitudes normal. No JVD. Chest: Coarse Cor: Normal S1 and S2. No murmurs, gallops, rubs, thrills, lifts, heaves. Abdomen: distended, hypoactive bowel sounds Extremities: 1+ bilateral edema. Warm. Neuro: grossly nonfocal. LABS: Lab Results Component Value Date WBC 11.4 (H) 04/29/2023 HGB 11.4 (L) 04/29/2023 HCT 34.1 (L) 04/29/2023 PLATELET 229 04/29/2023 CHLPL 220 04/19/2023 TRIG 126 04/28/2023 HDL 86 04/19/2023 LDLDIRECT 129 04/19/2023 ALT 38 04/28/2023 AST 26 04/28/2023 NA 134 (L) 04/29/2023 K 3.8 04/29/2023 CL 101 04/29/2023 CREATININE 2.30 (H) 04/29/2023 BUN 49 (H) 04/29/2023 CO2 20 (L) 04/29/2023 TSH 0.74 04/19/2023 INR 1.1 04/23/2023 GLUCFASTING 125 (H) 04/19/2023 HA1C 6.0 (H) 04/19/2023 MICROALBUR <3.0 04/29/2023 IMPRESSION: 1. Type B aortic dissection and ICH 2. Hypertension and tachycardia 3. Thoracic aortic dilation. Otherwise structurally normal heart. PLAN: - Increase ivabradine to 7.5mg and decrease diltiazem to 60mg q6hr for this morning. If still requiring phenylephrine and HR <60bpm decrease phenylephrine today. - Downtitrate diltiazem as needed to wean phenylephrine while maintain MAP goal. Can downtitrate diltiazem to 30mg q6hr later today. - Continue co-reg 6.25mg BID while downtitrating diltiazem but if maintains a need for phenylephrine for augmentation of BP while on rate controlling agents that affect the blood pressure consider decrease of co-reg to 3.125mg BID later today as well. -I/O goal negative -monitor for infection given phenylephrine requirement and rising WBC count/Cr. LFTs being normal suggests against hypoperfusion. Abdominal exam noted to be distended and primary team working on bowel regimen. . * Franchesca Sheehan RN - 04/29/2023 7:32 AM EDT OUTCOME EVALUATION NOTE: OUTCOME SUMMARY: Fluctuating vasopressor needs over night to maintain hemodynamic status. Stable neuro exam with EVD+20. ETT suction requirements approximately every 4 hours with shirley secretions. TF at goal. Rebolledo catheter maintained for hourly I/O. Lasix infusion continued. Q6 hour labs continued with PRN potassium chloride replacements as needed per order. Propofol and fentanyl infusions continued for restlessness. Restraints continue to be required. Mildly decreased left pedal pulse on doppler audible. NCCU overnight provider aware. PLAN MOVING FORWARD: Q4 hour NC Q1 hour I/O MAP >60 SBP <120 Heart rate <70 Q6 hour electrolytes w/ potassium replacements * Peewee Chu MD - 04/29/2023 7:02 AM EDT Hypertension-Nephrology Inpatient Follow-up Myla Acosta [id number] 1955 ID: 67 y.o. old male seen for OVI. Interval History: Remains in ICU, intubated, not responsive. at bedside. I was able to answer questions this morning. Physical Examination: Last value 24 Hour Temperature Range Temp: [37.2 ??C (99 ??F)-37.9 ??C (100.2 ??F)] 12 Hour Heart Rate Range Heart Rate: [57-71] 24 Hour Blood Pressure Range BP: (102-120)/(40-63) Respiratory Rate Resp: 17 SpO2 SpO2: 94 % Body mass index is 39.24 kg/m??. General: Critically ill in ICU. CV: S1 and S2 regular. Faint. Resp: Coarse lung sounds. Intubated. Abd: Distended. Unable to assess for pain. Ext: 1+ edema in the lower extremities/hips. Skin: No rashes or lesions on the exposed skin. Neuro/psych: Sedated, not responsive today. sodium chloride 2 g Per NG tube TID ergocalciferoL (vitamin D2) 800 Units Oral Daily ivabradine 7.5 mg Oral BID metOLazone 10 mg Per NG tube Daily dilTIAZem 30 mg Per NG tube Q6H YUSUF [START ON 04/30/2023] magnesium hydroxide 30 mL Per NG tube Daily [START ON 04/30/2023] polyethylene glycoL (MIRALAX) oral powder 17 g Per NG tube Daily senna-docusate 2 tablet Per NG tube BID ipratropium-albuteroL 3 mL Nebulization Q4H chlorhexidine 15 mL Oral BID famotidine 20 mg Per NG tube BID shift total and Settings verification 1 each Intravenous 2 Times Daily - Shift Total tamsulosin 0.4 mg Oral Daily sodium chloride 4 mL Nebulization Q4H heparin (porcine) 5,000 Units Subcutaneous Q8H YUSUF lidocaine 1 patch Transdermal Q24H camphor-methyl salicyl-menthoL Topical (Top) BID thiamine 100 mg Intravenous Daily folic acid 1,000 mcg Per NG tube Daily multivitamin with minerals 1 tablet Per NG tube Daily Lab Results Component Value Date CREATININE 2.73 (H) 04/29/2023 CREATININE 2.30 (H) 04/29/2023 CREATININE 2.16 (H) 04/29/2023 CREATININE 1.93 (H) 04/28/2023 CREATININE 1.77 (H) 04/28/2023 ESTGFR 25 (L) 04/29/2023 ESTGFR 31 (L) 04/29/2023 ESTGFR 33 (L) 04/29/2023 ESTGFR 38 (L) 04/28/2023 ESTGFR 42 (L) 04/28/2023 NA 135 04/29/2023 NA 134 (L) 04/29/2023 NA 136 04/29/2023 K 4.2 04/29/2023 K 3.8 04/29/2023 K 3.7 04/29/2023 CO2 20 (L) 04/29/2023 CO2 20 (L) 04/29/2023 CO2 21 (L) 04/29/2023 Lab Results Component Value Date CALCIUM 8.8 04/29/2023 CALCIUM 9.1 04/29/2023 CALCIUM 8.7 04/29/2023 PHOS 4.3 04/29/2023 PHOS 4.0 04/29/2023 PHOS 4.2 04/29/2023 PTH 54 04/29/2023 25OHVITD 13 (L) 04/29/2023 TSH 0.74 04/19/2023 CK 74 04/28/2023 LDH 199 04/28/2023 Lab Results Component Value Date HGB 11.4 (L) 04/29/2023 HGB 11.5 (L) 04/28/2023 HGB 12.2 (L) 04/26/2023 FERRITIN 355 04/29/2023 IRONSAT 13 (L) 04/29/2023 Lab Results Component Value Date UMICALBCALC Not Calculated 04/29/2023 UPROTCREAT 0.2 04/29/2023 ALBUMIN 3.1 (L) 04/28/2023 ALBUMIN 3.5 04/23/2023 ALBUMIN 3.9 04/19/2023 Renal duplex 04/27, unable to see right kidney in the setting of bowel gas/positioning. No stenosis in the distal left renal artery but unable to rule out stenosis in the proximal to mid left renal artery. Urine sediment 04/28 remarkable for granular debris, suggestive of acute tubular damage. Assessment & Plan: Myla 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 male admitted in the setting of type B aortic dissection being seen for evaluation of concomitant OVI. Medical comorbidities include EtOH use disorder. He is s/p contrast with imaging performed on 04/24, urine sediment remarkable for granular debris which might fit withcontrast or hemodynamic injury. Uptrending creatinine today fits with the timeline for either. Diuresed yesterday, UOP now dropping off this morning despite the furosemide infusion, which we would expect with ATN or compromised renal perfusion. Difficult to say at this time with certainty whatthe cause of his OVI is, but agree with vascular surgery that we would not pursue additional imaging with contrast without intervention in mind we will to offer. OVI Type B Aortic Dissection Intracranial Hemorrhage Vitamin D deficiency Iron deficiency anemia -Recommend stopping furosemide infusion today and watching UOP/labs. -Recommend obtaining bladder pressure if able given the abdominal distention today given concern for abdominal compartment syndrome. -Please increase dose of ergocalciferol to 50,000 units weekly given the severity of vitamin D deficiency. -Recommend IV iron sucrose 300 mg every other day x 3 for the iron deficiency anemia. Please avoid NSAIDs, contrast, nephrotoxins and dose adjust renally toxic medications as able. This case was staffed with Dr. Snyder. Please contact me at phone: [phone] or pager: [phone] with any questions. Peewee Chu MD Nephrology & Hypertension Fellow Associated attestation - Ekaterina Snyder MD - 04/30/2023 6:09 AM EDT I have seen and examined Mr Karla, reviewed the relevant clinical and laboratory data and images, and discussed the case with the primary team and with Dr Chu. His note accurately reflects our jointly formulated assessment and recommendations for management. Oligoanuric acute kidney injury in the setting of type B aortic dissection complicated by intracranial hemorrhage, hypertension.. At this time unclear whether OVI is secondary to ATN or to interrupted renal perfusion. Urine microscopy in 2M renal lab is consistent with acute tubular injury but doesnot identify an etiology. Renal duplex is equivocal. Agree with recommendation to discontinue diuretics at this time I agree that there is no clinical or metabolic indication for urgent or emergent renal replacement therapy currently, however he likely will require initiation of CRRT within the next 24 to 48 hours Thank you for this consult. We will continue to follow. * Hua Hoang RCP - 04/29/2023 5:14 AM EDT AMV Protocol: Yes SBT Protocol: Yes SBT: Not performed/Excluded: Predefined weaning plan Vent Settings: CPAP 10, PS 14, FiO2 55% Airway: 8.0 @ 22 cm at the Teeth. Skin Integrity: WDL Nebulized Medications: 3% Hypertonic Saline, Albuterol & Ipratroprium Breath Sounds: Rhonchi Secretions: Moderate thick white Assessment / Events / Plan of the Day: Patient started shift on CPAP 8, PS 14, FIO2 35%. Periodically during the night, SPO2 decreased to 86%. Required gradual increase in FiO2 to 55% and PEEP to 10. Hua Hoang RCP * Georges Jacob MD - 04/28/2023 10:03 AM EDT NEUROCRITICAL CARE PROGRESS NOTE Date of Admission: 04/18/2023 6:34 AM LOS: 10 ICU LOS: 10d 3h 24 Hour Events: Lasix gtt 20 1 mg bumex UOP 2L / 24h Net + 2L Javon 100 EVD 20: 208 out over 24h PSV 14/8/30% Active Medications: furosemide 20 mg/hr (04/28/23 0914) clevidipine Stopped (04/27/23 1150) PHENYLephrine 100 mcg/min (04/28/23 0947) propofoL 20 mcg/kg/min (04/28/23 0800) esmoloL in sodium chloride 0.9% Stopped (04/27/23 2246) fentaNYL 25 mcg/hr (04/28/23 0700) tube feeding diet Stopped (04/27/23 1150) carvediloL 25 mg Per NG tube Q12H senna-docusate 2 tablet Per NG tube BID ipratropium-albuteroL 3 mL Nebulization Q4H chlorhexidine 15 mL Oral BID famotidine 20 mg Per NG tube BID shift total and Settings verification 1 each Intravenous 2 Times Daily - Shift Total ivabradine 5 mg Oral BID magnesium hydroxide 30 mL Oral Daily dilTIAZem 120 mg Per NG tube Q6H YUSUF tamsulosin 0.4 mg Oral Daily polyethylene glycoL (MIRALAX) oral powder 17 g Oral Daily sodium chloride 4 mL Nebulization Q4H heparin (porcine) 5,000 Units Subcutaneous Q8H YUSUF lidocaine 1 patch Transdermal Q24H camphor-methyl salicyl-menthoL Topical (Top) BID thiamine 100 mg Intravenous Daily folic acid 1,000 mcg Per NG tube Daily multivitamin with minerals 1 tablet Per NG tube Daily [DISCONTINUED] bisacodyl EC AND lactulose AND lactulose AND magnesium citrate AND Tap water enema, propofoL AND propofoL, fentaNYL AND [COMPLETED] fentaNYL AND fentaNYL AND shift total and Settings verification AND Assess, potassium chloride ER OR potassium chloride ER, QUEtiapine, acetaminophen, labetaloL, enalaprilat, bisacodyL, glucose 40% oral geL OR dextrose OR glucagon Vitals: Vital Sign Ranges: Last value Range last 24 hrs Temperature Temp: 37.1 ??C (98.7 ??F) Temp: [36.6 ??C (97.8 ??F)-37.2 ??C (99 ??F)] Heart Rate Heart Rate: 54 Heart Rate: [43-74] Blood Pressure BP: 107/50 BP: (107)/(50) Respiratory Rate Resp: 12 Resp: [11-30] SpO2 SpO2: 95 % SpO2: [88 %-100 %] Art BP BP (Arterial Line): 96/39 BP (Arterial Line): (92-126)/(38-61) Intake/Output: I/O 04/24 0704/25 0704/25 0704/26 0704/26 0704/27 0704/27 0704/28 07 P.O. 0 0 0 I.V. (mL/kg/hr) 3183.6 (1.1) 3069.5 (1) 3371.3 (1.1) 134.5 (0.4) Blood 0 Other 0 NG/GT 2171 2339 811 150 Irrigation 150 30 Total Intake(mL/kg) 5504.6 (45.2) 5408.5 (44.1) 4212.3 (34.1) 284.5 (2.3) Urine (mL/kg/hr) 3980 (1.4) 4170 (1.4) 2073 (0.7) 225 (0.6) Emesis/NG output 0 0 0 0 Other 261 230 208 38 Stool 0 0 0 0 Total Output(mL/kg) 4241 (34.8) 4400 (35.9) 2281 (18.5) 263 (2.1) Net +1263.6 +1008.5 +1931.3 +21.5 Stool Occurrence 0 x 0 x 1 x 0 x Emesis Occurrence 0 x 0 x 0 x 0 x Lines/Drains/Airways: PICC Line 04/20/23 1410 Triple Lumen 5 Fr brachial vein, right (Active) External Catheter Length (cm) 0 04/27/23 0928 Indication/Daily Review of Necessity Medications known to cause phlebitis (vasopressors, concentrated electrolytes, TPN, chemotherapy) 04/28/23 08 Site Preparation/Maintenance dressing: dry and intact 04/28/23799 Dressing change due 05/04/23 04/27/232099 Needleless Connector change due 04/30/23 04/27/232099 Securement catheter stabilization device, secured with 04/28/23 08 Distal (Foster) Patency/Maintenance flushed without difficulty;blood return, able to obtain;infusing 04/28/23799 Medial (White) Patency/Maintenance flushed without difficulty;blood return, able to obtain;[id number]/22/24 08 Proximal (Red) Patency/Maintenance flushed without difficulty;blood return, able to obtain;[id number] Phlebitis 0-->no symptoms 04/28/23799 Infiltration 0-->no symptoms 04/28/23799 Site Signs/Symptoms no drainage;no streak formation;no palpable cord;no pain;no warmth;no swelling;no redness 04/28/23799 Arm Circumference [place] Between Insertion & Axilla (cm) 37 04/27/23 0928 PIV 04/19/23 1416 20 gauge;1.75 in length cephalic vein (lateral side of arm), left (Active) Indication/Daily Review of Necessity fluid therapy intermittent;medication therapy intermittent 04/28/23799 Site Preparation/Maintenance dressing: dry and intact 04/28/23799 Securement catheter stabilization device, secured with 04/28/23799 Patency/Maintenance flushed without difficulty;blood return, unable to obtain 04/28/23799 Dressing change due 04/26/23 04/25/23 2200 Phlebitis 0-->no symptoms 04/28/23799 Infiltration 0-->no symptoms 04/28/23799 Site Signs/Symptoms no drainage;no streak formation;no palpable cord;no pain;no warmth;no swelling;no redness 04/28/23799 Urethral Catheter 04/24/23 1401 (Active) Indication/Necessity Acute urinary retention or obstruction 04/28/23799 Securement secured to upper leg with adhesive device 04/28/23799 Maintenance Closed system maintained;Catheter secured to leg;Collection bag maintained below the bladder;Urine flow is unobstructed;Collection bag emptied when half full or at least every 4 hours using a separate container for this patient, drainage spigot not allowed to touch container;Hand hygiene performed before and after touching catheter and collection system 04/28/23799 Foreskin circumcised 04/28/23799 Tolerance no signs/symptoms of discomfort 04/28/23799 Urine Characteristics yellow 04/28/23799 Urine Output (mL) 225 04/28/23799 Naso/Oral Tube 04/23/23 1559 small bore weighted (Dobhoff) right nostril (Active) Placement Check Methods distal length tube measured 04/28/23799 Catheter Depth (cm) 70 cm 04/28/23 08 Tolerance no adverse signs/symptoms 04/28/23799 Securement taped to nostril center 04/28/23799 Clamp Status/Tolerance clamped 04/28/23 08 Insertion Site Appearance no skin breakdown;no tenderness;no warmth;no redness 04/28/23799 Flush/Irrigation flushed with;water;flushed with ease 04/28/23 08 Tubing Change 04/24/23 04/24/23 2200 Irrigation/Flush (mL) 30 (mL) 04/27/231999 Tube Intake (mL) 150 04/28/23 08 Net Naso/Oral Volume (mL) 150 (mL) 04/28/23 08 EVD (External Ventricular Drain) 04/18/23 0730 (Active) Distance Above Site (cm H2O) 0.2 m (7.87) 04/28/23799 Ventricular Drainage clear 04/28/23799 Insertion Site dressing dry and intact 04/28/23799 Insertion Site Drainage none 04/28/23 08 Interventions open 04/28/23799 General Output (mL) 38 04/28/23 08 ETT Airway 04/27/23 1320 (Active) Airway Size Verification 8 mm 04/28/23 08 Site Changed to: left side of mouth 04/28/23 08 Appearance clean;dry 04/28/23813 Tube Securement endotracheal (ET) tube armstrong 04/28/23813 Tube Reference Point teeth 04/28/23813 Airway Tube Secured At (cm) 22 04/28/23 08 Cuff Pressure (cm H2O/mLH2O) 30 04/28/23 08 Tube Securement Date 04/27/23 04/28/23 08 Bite Block none 04/28/23813 Manual Resuscitator at bedside Yes 04/28/23 08 Arterial Line 04/22/23 2100 radial artery, right (Active) Daily Review Of Necessity completed 04/28/23 08 Dressing dressing dry and intact 04/28/23799 Arterial Catheter Securement arm board 04/28/23799 Lumen Patency/Care flushed without difficulty;blood return present 04/28/23 0800 Waveform normal 04/28/23 08 Phlebitis 0-->no symptoms 04/28/23 0800 Infiltration 0-->no symptoms 04/28/23 08 Site Signs/Symptoms no drainage;no streak formation;no palpable cord;no pain;no warmth;no swelling 04/28/23 08 Pressure Catheter Interventions system flushed;line leveled/zeroed 04/28/23 08 Labs: Lab Results Component Value Date pH Art 7.28 (CRIT) 04/27/2023 pH Art 7.29 (CRIT) 04/27/2023 pO2 Art 68 (L) 04/27/2023 pO2 Art 88 04/27/2023 pCO2 Art 45 04/27/2023 pCO2 Art 42 04/27/2023 Recent Labs 04/28/23 0120 WBC 11.7* RBC 3.64* HGB 11.5* HCT 34.9* MCV 95.9* MCH 31.6 MCHC 33.0 PLATELET 244 RDWCV 13.8 Recent Labs 04/28/23 0512 NA 134* K 3.8 CL 103 CO2 19* BUN 37* CREATININE 1.74* GLUCOSE 113 Cr 1.74 from 1.33 Imaging: CT slightly increased IVH without increased cerebellar hemorrhage or hydrocephalus Physical Exam: NAD Diminished bilat breath sounds, no rales RRR no mgr 1+ BLE edema ASSESSMENT & PLAN: 67M R cerebellar hemorrhage with IVH and Type B aortic dissection Neuro: cerebellar hemorrhage s/p EVD - EVD @ 20 - prop/fent prn - DDx decreasing alertness includes increasing clonidine, edema from hyponatremia, ICU delirium CV: Type B aortic dissection - HR < 60 on esmolol; d/w pharmacy in [place] to limit hyponatremia - enteral dilt 90 q6h - con't carvedilol 12.5 bid - (both decreased to limit hypotension as ivabridine has been quite effective) - ivabridine per cards rec - SBP < 120, MAP > 65 - javon prn - vascular surgery following - images reviewed and L renal artery appears to originate from false lumen, given difficulty diuresing will discuss with vascular to see if any intervention may be possible - repeat imaging in 3 months per vascular / already ordered by vascular - ASA once EVD removed Pulm: reintubated 04/26 for airway protection given worsening mental status and acute hypoxic respiratory failure attributed to volume overload - PSV as tolerated FEN/Renal: - TF - rebolledo for retention 04/23, I&O - lasix gtt for goal net net 1L/24h - add metolazone 5 daily GI: no acute ID: no acute Endo: no acute Heme: no acute PPx: SQH Tubes/Lines/Drains: a-line 04/21, PICC 04/19 Code Status: Attempt Cardiopulmonary Resuscitation - Inpatient Dispo: ICU for EVD wean and hemodynamic management //////////////////////////////////////////////////////////////////////////////// //// Attestation: IS PATIENT CRITICALLY ILL ? Is there a high potential of sudden, clinically significant, or life threatening deterioration? YES Is there a need for direct personal assessment and management to treat/prevent multiple vital organfailure/deterioration? YES If this patient is not critically ill, the reason for continued hospitalization is n/a. PATIENT IS CRITICALLY ILL WITH THESE DIAGNOSES BEING MANAGED BY [facility] TEAM: Type B aortic dissection OVI Volume overload Cerebellar hemorrhage IVH Obstructive hydrocephalus HTN I personally performed 40 minutes of aggregate critical care time exclusive of procedures and teaching. This includes time spent during direct patient evaluation and reassessment, interpreting diagnostic tests, directing life and/or organ supporting interventions and documentation on the unit. * Angelia Paulino RD - 04/28/2023 8:49 AM EDT Nutrition Progress Note Myla 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 male with unknown pmhx (no PCP or listed medications) who presents asa transfer from an OSH for evaluation of a right cerebellar IPH. Now s/p R EVD placement 04/17 givenhydrocephalus. Reason for Assessment: ICU Tube Feeding, Follow-up Nutrition Recommendations: Enteral Nutrition: Metabolic cart study 04/27: 1820 kcals - adjust TF Peptamen AF with a goal rate of 70 ml per hour This rate is calculated to compensate for unplanned time off feedings due to potential procedures, etc. At goal, this will provide: Peptamen AF Total Volume Per Day: 1400 mL Scoops of Protein: 0 Calories per Day: 1680 Protein per Day: 106 g Free Water mL per Day: 1137 % RDI: 112 % Monitor hydration status on above TFs as they are concentrated. Pt may need additional fluids depending on IVFs, med flushes, etc. Mag and Phos with daily BMP or CMP labs; replenish as indicated. Daily weights. BG goal 140-180 in ICU. Propofol at current rate will provide 287 calories from lipid daily, or about 26 grams of fat/day. Monitor TG while on Propofol. VDE score <12, low risk for vasopressor related TF intolerance. I was able to discuss plan with provider [place] [id number] team . Current Nutrition Regimen: Active Orders Diet NPO diet (Give Meds) Frequency: Effective Now Number of Occurrences: Until Specified All Active TF Orders: Tubefeeding Orders (From admission, onward) Start Dose/Rate Route Frequency Ordered Stop 04/24/23 1030 tube feeding diet 1,300 mL Per NG tube CONTINUOUS 04/24/23 0941 Average tube feeding provision over past 3 days; 1060 mL vs daily goal volume of 1300 mL formula (81% of goal) Tolerance or barriers to meeting needs: Holds, extubation/reintubation Assessment: Lab Results Component Value Date NA 135 04/28/2023 K 3.9 04/28/2023 CL 103 04/28/2023 CO2 20 (L) 04/28/2023 BUN 39 (H) 04/28/2023 CREATININE 1.77 (H) 04/28/2023 ESTGFR 42 (L) 04/28/2023 MAGNESIUM 0.93 04/28/2023 CALCIUM 8.7 04/28/2023 PHOS 5.1 (H) 04/28/2023 AST 26 04/28/2023 ALT 38 04/28/2023 ALKPHOS 61 04/28/2023 BILITOT 0.5 04/28/2023 BILIDIR 0.3 04/28/2023 TRIG 126 04/28/2023 HA1C 6.0 (H) 04/19/2023 No results found for: POCGLU Patient Lines/Drains/Airways Status Active Nutritional LDAs Name Placement date Placement time Site Days Naso/Oral Tube 04/23/23 1559 small bore weighted (Dobhoff) right nostril 04/23/23 1559 right nostril 5 PIV 04/19/23 1416 20 gauge;1.75 in length cephalic vein (lateral side of arm), left 04/19/23 1416 -- 9 PICC Line 04/20/23 1410 Triple Lumen 5 Fr brachial vein, right 04/20/23 1410 -- 8 Urethral Catheter 04/24/23 1401 04/24/23 1401 -- 4 EVD (External Ventricular Drain) 04/18/23 0730 04/18/23 0730 -- 10 Oxygen Therapy / Airway Device: Ventilator Shift Pressure Injury Prevention Occiput: No Injury Thoracic Spine: No Injury Sacral: No Injury Ischial - left: No Injury Ischial - right: No Injury Heel - left: No Injury Heel - right: No Injury Elbow - left: No Injury Elbow - right: No Injury Device Sites: A line sites - tubing, A line Board, BP Cuff, ECG Leads, rebolledo, IV sites, O2 sat monitor, SCD's / venodynes, wrist restraints Other Sites: EVD Last Bowel Movement: 04/27/23 Intake/Output Summary (Last 24 hours) at 04/28/2023 1511 Last data filed at 04/28/2023 1400 Gross per 24 hour Intake 3268.51 ml Output 2415 ml Net 853.51 ml Relevant medications: Continuous furosemide 20 mg/hr (04/28/23 1421) clevidipine Stopped (04/27/23 1150) PHENYLephrine 50 mcg/min (04/28/23 1400) propofoL 20 mcg/kg/min (04/28/23 1200) esmoloL in sodium chloride 0.9% Stopped (04/27/23 2246) fentaNYL 25 mcg/hr (04/28/23 0700) tube feeding diet Stopped (04/27/23 1150) Scheduled dilTIAZem 90 mg Per NG tube Q6H YUSUF carvediloL 12.5 mg Per NG tube Q12H sodium chloride 1 g Per NG tube TID metOLazone 5 mg Oral Once senna-docusate 2 tablet Per NG tube BID ipratropium-albuteroL 3 mL Nebulization Q4H chlorhexidine 15 mL Oral BID famotidine 20 mg Per NG tube BID shift total and Settings verification 1 each Intravenous 2 Times Daily - Shift Total ivabradine 5 mg Oral BID magnesium hydroxide 30 mL Oral Daily tamsulosin 0.4 mg Oral Daily polyethylene glycoL (MIRALAX) oral powder 17 g Oral Daily sodium chloride 4 mL Nebulization Q4H heparin (porcine) 5,000 Units Subcutaneous Q8H YUSUF lidocaine 1 patch Transdermal Q24H camphor-methyl salicyl-menthoL Topical (Top) BID thiamine 100 mg Intravenous Daily folic acid 1,000 mcg Per NG tube Daily multivitamin with minerals 1 tablet Per NG tube Daily PRN [DISCONTINUED] bisacodyl EC AND lactulose AND lactulose AND magnesium citrate AND Tap water enema, propofoL AND propofoL, fentaNYL AND [COMPLETED] fentaNYL AND fentaNYL AND shift total and Settings verification AND Assess, potassium chloride ER OR potassium chloride ER, QUEtiapine, acetaminophen, labetaloL, enalaprilat, bisacodyL, glucose 40% oral geL OR dextrose OR glucagon Anthropometrics: Admit Weight: 111.8 kg Estimated body mass index is 40.79 kg/m?? as calculated from the following: Height as of this encounter: 174 cm (5' 8.5). Weight as of this encounter: 123.5 kg (272 lb 4.3 oz). [place] Body Weight (IBW) (kg): 71.37 Wt Readings from Last 10 Encounters: 04/28/23 123.5 kg (272 lb 4.3 oz) Patient Vitals for the past 168 hrs: Weight 04/28/23 0530 123.5 kg (272 lb 4.3 oz) 04/27/23 0600 122.7 kg (270 lb 8.1 oz) 04/26/23 0300 121.8 kg (268 lb 8.3 oz) 04/25/23 0600 119.9 kg (264 lb 5.3 oz) 04/23/23 0154 112 kg (246 lb 14.6 oz) Weight Source: Bed Estimated / Assessed Needs: Fluid Requirements: Estimated Fluid Requirement Method: Weight Based Method Weight Based Method: 30 Weight Based Calculation: 2142 mL Metabolic cart study: 1820 kcals Kcal / K - 1785 Kcal (20 Kcal/Kg - 25 Kcal/Kg) Estimated Protein Needs: 86 g - 107 g (1.2 g/Kg - 1.5 g/Kg) Nutrition intake and intake history / interview: 04/27: Extubated and re-intubated. TF presently off. On small amt of propofol and javon. Multiple BM yesterday. Lasix drip. GFR <60. Met cart study 1820 kcals. 04/25: TF was off/on hold this morning due to TF formula not being available per flowsheet - checkedunit storage - plenty of Pep AF in top drawer. Pt back from CT scan and TF reportedly restarted. NoBM since 04/21. Phos and Na slightly low. 04/23: Consulted again for TF. Prior goal remains appropriate for now - advance to goal. Off propofol. Has small bore feeding tube. Needs to move bowels. NPO per T[employer]ASURY CONSULTANT. 04/19: Re-intubated. TF at 25 mL/hr today. On low dose propofol. No BM this admission. 04/17: Consulted for TF recommendations. May extubate tomorrow. On some propofol. On alcohol withdrawal protocol - thiamine, folic acid and Thera M ordered. Nutrition Focused Physical Exam: Not performed Reason NFPE Not Performed: Not indicated. Malnutrition Diagnosis: Not identified (BETHANY Hagen J Parenteral Enteral Nutr. 2011; 36(3): 273-83) Nutrition to continue to follow up while inpatient Thank you, Angelia Paulino RDN, CNSC, LD Clinical Nutrition * Senthil Kulkarni MD - 04/28/2023 8:37 AM EDT CARDIOLOGY CONSULT NOTE Patient Name: Myla Acosta Service: Neuro ICU Team Responsible Attending: Georges Jacob MD PCP: Fransico Remy MD PCP phone #: [phone] ID/Chief Complaint: Myla 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 male with a limited pmhx due to lack of contact with medical system and no active outpatient medications who is presenting for R cerebellar IPH and intraventricular extension s/p R EVD placement on 04/17 who on CTA 04/21 was incidentally noted to have Type B aortic dissection. Medical Co-morbidities: R cerebellar IPH Type B aortic dissection (L subclavian to b/l external iliac) Interval events: - Intubated yesterday for worsening hypoxic respiratory failure - Started on Ivabradine 5 mg BID - HR range 43-55 s/p first dose ivabradine - Esmolol and Clevidipine titrated off - Net+ 2 L past 24 hours - Creatinine 1.33->1.54->1.75 - failed SBT this AM 03/10 poor tidal volumes Meds: Scheduled Meds: carvediloL 25 mg Per NG tube Q12H senna-docusate 2 tablet Per NG tube BID ipratropium-albuteroL 3 mL Nebulization Q4H chlorhexidine 15 mL Oral BID famotidine 20 mg Per NG tube BID shift total and Settings verification 1 each Intravenous 2 Times Daily - Shift Total ivabradine 5 mg Oral BID magnesium hydroxide 30 mL Oral Daily dilTIAZem 120 mg Per NG tube Q6H YUSUF tamsulosin 0.4 mg Oral Daily polyethylene glycoL (MIRALAX) oral powder 17 g Oral Daily sodium chloride 4 mL Nebulization Q4H heparin (porcine) 5,000 Units Subcutaneous Q8H YUSUF lidocaine 1 patch Transdermal Q24H camphor-methyl salicyl-menthoL Topical (Top) BID thiamine 100 mg Intravenous Daily folic acid 1,000 mcg Per NG tube Daily multivitamin with minerals 1 tablet Per NG tube Daily Continuous Infusions: furosemide 20 mg/hr (04/28/23 0700) clevidipine Stopped (04/27/23 1150) PHENYLephrine 50 mcg/min (04/28/23 0730) propofoL 20 mcg/kg/min (04/28/23 0700) esmoloL in sodium chloride 0.9% Stopped (04/27/23 2246) fentaNYL 25 mcg/hr (04/28/23 0700) tube feeding diet Stopped (04/27/23 1150) PRN Meds:.[DISCONTINUED] bisacodyl EC AND lactulose AND lactulose AND magnesium citrateAND Tap water enema, propofoL AND propofoL, fentaNYL AND [COMPLETED] fentaNYL AND fentaNYL AND shift total and Settings verification AND Assess, potassium chloride ER OR potassium chloride ER, QUEtiapine, acetaminophen, labetaloL, enalaprilat, bisacodyL, glucose 40% oralgeL OR dextrose OR glucagon Allergies: No Known Allergies Vitals: Last value Range last 24 hrs Temperature Temp: 37.1 ??C (98.8 ??F) Temp: [36.6 ??C (97.8 ??F)-37.2 ??C (99 ??F)] Heart Rate Heart Rate: 55 Heart Rate: [43-74] Blood Pressure BP: 107/50 BP: (107)/(50) Respiratory Rate Resp: 13 Resp: [11-30] SpO2 SpO2: 95 % SpO2: [88 %-100 %] Examination: General - Intubated and sedated, Comfortable, following commands HEENT - EOMI not assessed. No scleral icterus. Noninjected. Moist membranes. Respiratory: Labored respirations, on ventilator (FiO2 30%, PEEP 7.5) Cardiac - bradycardic, regular rhythm, normal S1/S2, no audible murmur, gallop or rubs. No JVD. No KATIE. Abdomen - Soft, nontender/nondistended Extremities - Warm. No clubbing or cyanosis. Edematous UE and LE. Radial Pulses: 2+ b/l Laboratory: CBC: Recent Labs 04/28/23 0120 04/26/23 0020 04/25/23 0110 WBC 11.7* 6.5 6.8 HGB 11.5* 12.2* 12.3* PLATELET 244 186 184 Chemistry: Recent Labs 04/28/23 0512 04/27/23 2300 04/27/23 1621 NA 134* 134* 132* K 3.8 3.8 4.2 CL 103 103 101 CO2 19* 21* 21* BUN 37* 35* 33* CREATININE 1.74* 1.54* 1.33 GLUCOSE 113 114 135 Recent Labs 04/28/23 0512 04/28/23 0120 04/27/23 2300 04/27/23 1621 04/26/23 1250 04/26/23 0020 04/25/23 0110 CALCIUM 8.6 -- 8.4* 8.6 -- 8.4* 8.6 MAGNESIUM 0.92 -- 0.90 0.95 < > 0.71 0.75 PHOS -- 5.0* -- -- -- 2.4* 2.6 < > = values in this interval not displayed. LFT's: Recent Labs 04/28/23 0120 04/23/23 0024 04/19/23 0035 BILITOT 0.5 0.4 0.3 BILIDIR 0.3 0.2 0.1 ALBUMIN 3.1* 3.5 3.9 ALKPHOS 61 64 66 ALT 38 26 19 AST 26 28 22 Coags: Recent Labs 04/23/23 0024 PT 12.7* INR 1.1 PTT 36 Most Recent TTE 04/19/23 TTE 04/19/23 Interpretation Summary -There is severe concentric left ventricular hypertrophy. Left ventricular systolic function is normal. The left ventricular ejection fraction is 70% by Hester's biplane. There are no segmental wall motion abnormalities. -The right ventricle is probably normal in size. Right ventricular function is probably normal. -No significant valve disease. -The aortic root is dilated. The diameter at the level of the sinuses of Valsalva is 4.2 cm. The ascending aorta is dilated. The maximum diameter of the proximal ascending aorta is 4.5 cm. -No comparison study is available. CTA 04/22/23 IMPRESSION 1. 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 2. No active extravasation, however , there is some apparent high density within a trace left pleural fluid collection possibly hemothorax and raises concern for early aneurysm leak/rupture into the pleural space. 3. Fusiform dilatation of the descending thoracic aorta measuring up to 4.7-4.8 cm. In maximal diameter ASSESSMENT: Myla 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 male with a limited pmhx due to lack of contact with medical system and no active outpatient medications who is presenting for R cerebellar IPH and intraventricular extension s/p R EVD placement on 04/17 who on CTA 04/21 was incidentally noted to have Type B aortic dissection. Ivabradine started 04/26 for SA elpidio blockade with notable drop in HR as low as 43 bpm overnight. Esmolol and clevidipine titrated off. Phenylephrine on since yesterday for BP control. Intubated yesterday iso worsening respiratory status. Likely 2/2 volume overload from IV medications. Worsening creatinine is likely cardiorenal from volume overload. Would continue ivabradine at 5 mg BID. Given concurrent beta marty and phenylephrine use, would wean carvedilol as tolerated to decrease use of phenylephrine for hypotension. Cardiology will continue to follow. Recommendations - Ivabradine 5 mg BID, for SA elpidio blockade - Target systolic BP <120, HR <60 iso Type B dissection - continue lasix gtt for management of volume overload and suspected cardiorenal OVI - Wean carvedilol to 6.25 mg BID this afternoon and continue as tolerated until off of phenylephrine. Senthil Kulkarni MD Internal Medicine, PGY-1 04/28/2023 Associated attestation - Trang Echeverria MD - 04/28/2023 2:19 PM EDT Cardiology Attending Addendum: I have personally interviewed and examined the patient and reviewed appropriate data, including labs, ECGs and other diagnostic studies. I agree with the principal findings documented herein. The assessment and plan were formulated in discussion with me. Cardiology consulted for assistance with HR and BP control iso type B aortic dissection and intracranial hemorrhage. Robust response to ivabradine. Now off esmolol and clevidipine. Phenylephrine initiation noted. Plan: -ivabradine 5mg BID for heart rate -carvedilol and diltiazem can both be weaned if ivabradine alone is managing the heart rate to allow this patient to come off of phenylephrine -continue lasix gtt for volume overload -Wean carvedilol to 6.25mg in the afternoon and again tomorrow AM to 3.125mg as tolerated to allow this patient to come off the phenylephrine. * Royal Rothman MD - 04/28/2023 8:01 AM EDT NEUROSURGERY PROGRESS NOTE ID: Myla 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 male largely without routine medical care and not on any medications, presenting in transfer from OSH for R cerebellar IPH and intraventricular extension. S/p R EVD placement for hydrocephalous HD# 10 POD # INTERVAL HX/ROS: Re intubated for respiratory decline RCTH stable No ICP issues MEDICATIONS: Scheduled Meds: carvediloL 25 mg Per NG tube Q12H senna-docusate 2 tablet Per NG tube BID ipratropium-albuteroL 3 mL Nebulization Q4H chlorhexidine 15 mL Oral BID famotidine 20 mg Per NG tube BID shift total and Settings verification 1 each Intravenous 2 Times Daily - Shift Total ivabradine 5 mg Oral BID magnesium hydroxide 30 mL Oral Daily dilTIAZem 120 mg Per NG tube Q6H YUSUF tamsulosin 0.4 mg Oral Daily polyethylene glycoL (MIRALAX) oral powder 17 g Oral Daily sodium chloride 4 mL Nebulization Q4H heparin (porcine) 5,000 Units Subcutaneous Q8H YUSUF lidocaine 1 patch Transdermal Q24H camphor-methyl salicyl-menthoL Topical (Top) BID thiamine 100 mg Intravenous Daily folic acid 1,000 mcg Per NG tube Daily multivitamin with minerals 1 tablet Per NG tube Daily Continuous Infusions: furosemide (Lasix) (1 mg/mL) infusion 100 mg vial attached to sodium chloride 0.9% 100 mL Mini-Bag Plus 20 mg/hr Intravenous Continuous ### clevidipine (Cleviprex) (0.5 mg/mL) infusion 0-16 mg/hr Intravenous Continuous ### PHENYLephrine (Javon-Synephrine) (80 mcg/mL) in sodium chloride 0.9% 250 mL infusion 0-180 mcg/min Intravenous Continuous ### propofoL (Diprivan) (10 mg/mL) infusion 0-50 mcg/kg/min (Adjusted) Intravenous Continuous ### esmoloL 10 mg/mL (Brevibloc) in sodium chloride 0.9% 250 mL infusion 0-200 mcg/kg/min Intravenous Continuous ### fentaNYL (PF) (50 mcg/mL) infusion syringe 50 mL 0-100 mcg/hr Intravenous Continuous ### tube feeding diet 1,300 mL Per NG tube Continuous ### PRN Meds: [DISCONTINUED] bisacodyl EC AND lactulose AND lactulose AND magnesium citrateAND Tap water enema, propofoL AND propofoL, fentaNYL AND [COMPLETED] fentaNYL AND fentaNYL AND shift total and Settings verification AND Assess, potassium chloride ER OR potassium chloride ER, QUEtiapine, acetaminophen, labetaloL, enalaprilat, bisacodyL, glucose 40% oralgeL OR dextrose OR glucagon EXAM: Vitals: Temp: [36.6 ??C (97.8 ??F)-37.2 ??C (99 ??F)] Heart Rate: [43-74] Resp: [11-30] BP: -- SpO2: [88 %-100 %] Heart Rate from SpO2: [43 bpm-74 bpm] BMI: Weight: 123.5 kg (272 lb 4.3 oz) (04/28/23 05) I/O: I/O last 3 completed shifts: In: 6904.3 [I.V.:5016.3; NG/GT:1858] Out: 4336 [Urine:3993; Other:343] EVD @ 20H2O =208cc output, ICP 12-17 GEN: NEURO:GCS [id number] Does not participate in EOM exam pupils 5mm and reactive No facial asymmetry Very [employer] [employer]: RUE:Loc LUE: Loc RLE: wiggles toes to command LLE: wiggles toes to command LABS: Recent Labs 04/28/23 0120 04/26/23 0020 WBC 11.7* 6.5 HGB 11.5* 12.2* PLATELET 244 186 Recent Labs 04/28/23 0512 04/27/23 2300 04/27/23 1621 NA 134* 134* 132* K 3.8 3.8 4.2 CL 103 103 101 CO2 19* 21* 21* BUN 37* 35* 33* CREATININE 1.74* 1.54* 1.33 No results for input(s): PT, INR in the last 72 hours. IMAGING: CTH 04/26: IMPRESSION Slightly increased intraventricular hemorrhage. No additional significant change. CTH 04/25: IMPRESSION Decreasing volume and density of intraventricular hemorrhage. Decreasing size of ventricular system. Additional findings noted above without acute interval changes. Assessment: Myla 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 male largely without routine medical care and not on any medications, presenting in transfer from OSH for R cerebellar IPH and intraventricular extension. S/p R EVD placement for hydrocephalus. Doing well from neurologic standpoint, MRI done with no evidence of mass lesion. Hemorrhagic strokeworkup per NCCU/Neurology. Problem List: IPH IVH Hydrocephalous Plan: - Q2HNC - Pain control - Imaging: CTH complete - SBP<160 - Monitor EVD/ICP per protocol, open at 20, - DVT ppx: SCDs, Ok SQH. Hold ASA for now - Current Diet: NPO diet (Give Meds) - Further care per NCCU PLEASE PAGE [phone] WITH QUESTIONS Active Hospital Problems Diagnosis ICH (intracerebral hemorrhage) Resolved Hospital Problems No resolved problems to display. There are no active non-hospital problems to display for this patient. Royal Rothman MD 04/28/2023 * Rg Hayes RCP - 04/28/2023 2:41 AM EDT RT Ventilation Progress Report: Ventilator settings: PS Above PEEP (cm H2O): 14 Set PEEP (cm H2O): 8 Set FiO2: 30 % Ventilator measurements: Resp: 13 Tidal Volume Measured Exp.: 491 Minute Ventilation Total Exhaled (L/min): 7.2 Assessment: Re-intubated yesterday 04/26 for general respiratory decline. Requiring moderate amountsof PS to keep tidal volumes in normal range (7-9/kg) and actively weaning O2. Down to 30% at time of this note, although, unable to wean PS without marked loss of Vt. ETT Airway 04/27/23 1320 (Active) Airway Size Verification 8 mm 04/28/23 0018 Site Changed to: center of mouth 04/28/23 0018 Appearance clean 04/28/23 0018 Tube Securement endotracheal (ET) tube armstrong 04/28/23 001 Tube Reference Point teeth 04/28/23 0018 Airway Tube Secured At (cm) 22 04/28/23 0018 Tube Securement Date 04/27/23 04/27/23 1336 Bite Block none 04/27/23 1336 Manual Resuscitator at bedside Yes 04/28/23 0018 * Toribio Shen RCP - 04/27/2023 4:45 PM EDT AMV Protocol: Yes SBT Protocol: Yes Vent Settings: Ventilator Mode: (S) PS/CPAP PEEP Set: 8 FiO2: (S) 40 % Ventilator Measurements: Resp: 16 Vt Exhaled: 393 PIP: 23 MAP: 11.8 Plateau Press: 21 Ve: 7.6 PEEP: 8 cmH20 SpO2: 98 % EtCO2: 36 mmHg Airway: 8.0 @ 22 cm at the Gum. Skin Integrity: WDL Nebulized Medications: 3% Hypertonic Saline and Duoneb Q4 Breath Sounds: Diminished Bilaterally Secretions: Moderate clear/white Assessment / Events / Plan of the Day: Pt was placed on NIV due to being obtunded with hypotension.Bilevel attempted at first, then CPAP. No change in patient respiratory status with NIV lead to patient being intubated for airway protection. Intubated with 8.0 at 24 (gum) without complication and placed on AMV protocol. Taken to CT scan and returned without issue. Upon return, placed on PSV, patient had a desaturation episode to 70's at which point Fio2 increased to 50 and PEEP increased to 8.Vent circuit changed to heated circuit in order to deliver scheduled nebs via aerogen. Toribio Shen RCP * Jamaica Leal PT - 04/27/2023 2:00 PM EDT Physical Therapy Contact Note Patient re-intubated for airway protection this date. Not appropriate for PT interventions at this time. Will continue to monitor and follow up as appropriate during hospital course. Please page with any questions or concerns. Jamaica Leal PT, DPT Pager: [phone] 04/27/23 Inpatient Rehabilitation Department * Tiarra Vasquez TREASURY CONSULTANT - 04/27/2023 1:41 PM EDT Speech Pathology Contact Note Chart reviewed. Attempted to see patient for cognition and dysphagia management; however, he was being re-intubated for airway protection. We will place patient on our monitor list and reassess upon extubation. Please secure chat with questions, thanks! Tiarra Vasquez, MS, CCC-TREASURY CONSULTANT Speech-Language Pathologist Inpatient Rehabilitation Pager # [phone] * Georges Jacob MD - 04/27/2023 10:28 AM EDT NEUROCRITICAL CARE PROGRESS NOTE Date of Admission: 04/18/2023 6:34 AM LOS: 9 ICU LOS: 9d 3h 24 Hour Events: Increased agitation, precedex increased Coreg to 25 bid Started lasix gtt 3am for net positive Afebrile Net + 1L SBP well-controlled off cleviprex ICP 12-16, 230 cc out over 24h, EVD @ 20 Active Medications: furosemide 5 mg/hr (04/27/23 0800) esmoloL 150 mcg/kg/min (04/27/23 1024) tube feeding diet 65 mL/hr at 04/27/23 0800 clevidipine Stopped (04/26/23 2131) dexmedeTOMIDine Stopped (04/27/23 1015) cloNIDine 0.3 mg Per G Tube Q8H YUSUF carvediloL 25 mg Per NG tube Q12H magnesium hydroxide 30 mL Oral Daily QUEtiapine 12.5 mg Per NG tube BID dilTIAZem 120 mg Per NG tube Q6H YUSUF tamsulosin 0.4 mg Oral Daily polyethylene glycoL (MIRALAX) oral powder 17 g Oral Daily sodium chloride 4 mL Nebulization Q4H heparin (porcine) 5,000 Units Subcutaneous Q8H YUSUF lidocaine 1 patch Transdermal Q24H camphor-methyl salicyl-menthoL Topical (Top) BID senna-docusate 2 tablet Per NG tube BID thiamine 100 mg Intravenous Daily folic acid 1,000 mcg Per NG tube Daily multivitamin with minerals 1 tablet Per NG tube Daily potassium chloride ER OR potassium chloride ER, QUEtiapine, LORazepam OR LORazepam OR LORazepam OR LORazepam OR LORazepam OR LORazepam OR LORazepam OR LORazepam ORLORazepam, fentaNYL (PF), acetaminophen, labetaloL, enalaprilat, bisacodyL, glucose 40% oral geL OR dextrose OR glucagon Vitals: Vital Sign Ranges: Last value Range last 24 hrs Temperature Temp: 37.1 ??C (98.8 ??F) Temp: [36.8 ??C (98.3 ??F)-37.4 ??C (99.4 ??F)] Heart Rate Heart Rate: 72 Heart Rate: [54-79] Blood Pressure BP: 106/55 BP: (91-126)/(43-55) Respiratory Rate Resp: 28 Resp: [19-31] SpO2 SpO2: 94 % SpO2: [88 %-100 %] Art BP BP (Arterial Line): 101/45 BP (Arterial Line): (86-128)/(43-66) Intake/Output: I/O 04/23 0701 04/24 0700 04/24 0701 04/25 0700 04/25 0701 04/26 0700 04/26 0701 / 0700 P.O. 30 0 0 I.V. (mL/kg/hr) 4586.2 (1.6) 3183.6 (1.1) 3069.5 (1) 549.3 (1.3) NG/GT 1859.8 2171 2339 511.8 Irrigation 100 150 Total Intake(mL/kg) 6576.1 (54.8) 5504.6 (45.2) 5408.5 (44.1) 1061.1 (8.6) Urine (mL/kg/hr) 3695 (1.3) 3980 (1.4) 4170 (1.4) 450 (1.1) Emesis/NG output 0 0 0 0 Other 367 261 230 55 Stool 0 0 0 Total Output(mL/kg) 4062 (33.9) 4241 (34.8) 4400 (35.9) 505 (4.1) Net +2514.1 +1263.6 +1008.5 +556.1 Stool Occurrence 0 x 0 x 0 x Emesis Occurrence 0 x 0 x 0 x 0 x Lines/Drains/Airways: PICC Line 04/20/23 1410 Triple Lumen 5 Fr brachial vein, right (Active) External Catheter Length (cm) 0 04/27/23 0928 Indication/Daily Review of Necessity Inadequate peripheral IV access (see comment) 04/27/23 0800 Site Preparation/Maintenance dressing: dry and intact 04/27/23 1000 Dressing change due 04/27/23 04/26/23 2100 Needleless Connector change due 04/30/23 04/27/23 0000 Securement catheter stabilization device, secured with 04/27/23927 Distal (Foster) Patency/Maintenance infusing 04/27/23927 Medial (White) Patency/Maintenance infusing 04/27/23927 Proximal (Red) Patency/Maintenance flushed without difficulty;blood return, able to obtain;alcohol impregnated cap applied 04/27/23927 Phlebitis 0-->no symptoms 04/27/23 1000 Infiltration 0-->no symptoms 04/27/23 1000 Site Signs/Symptoms no redness;no swelling;no warmth;no pain;no palpable cord;no streak formation 04/27/23927 Arm Circumference [place] Between Insertion & Axilla (cm) 37 04/27/23 0928 PIV 04/19/23 1416 20 gauge;1.75 in length cephalic vein (lateral side of arm), left (Active) Indication/Daily Review of Necessity medication therapy intermittent 04/27/23 08 Site Preparation/Maintenance dressing: dry and intact 04/27/23 1000 Securement catheter stabilization device, secured with 04/27/23 08 Patency/Maintenance flushed without difficulty;alcohol impregnated cap applied 04/27/23 08 Dressing change due 04/26/23 04/25/23 2200 Phlebitis 0-->no symptoms 04/27/23 1000 Infiltration 0-->no symptoms 04/27/23 1000 Site Signs/Symptoms no redness;no swelling;no warmth;no pain;no palpable cord;no streak formation;no drainage 04/27/23 08 Urethral Catheter 04/24/23 1401 (Active) Indication/Necessity Acute urinary retention or obstruction 04/27/23 08 Securement secured to upper leg with adhesive device 04/27/23 08 Maintenance Closed system maintained;Catheter secured to leg;Collection bag maintained below the bladder;Urine flow is unobstructed;Collection bag emptied when half full or at least every 4 hours using a separate container for this patient, drainage spigot not allowed to touch container;Hand hygiene performed before and after touching catheter and collection system 04/27/23 08 Foreskin circumcised 04/27/23 08 Tolerance no signs/symptoms of discomfort 04/27/23 08 Urine Characteristics clear yellow 04/27/23 1000 Urine Output (mL) 300 04/27/23 1000 Naso/Oral Tube 04/23/23 1559 small bore weighted (Dobhoff) right nostril (Active) Placement Check Methods distal length tube measured 04/27/23799 Catheter Depth (cm) 70 cm 04/27/23799 Tolerance no adverse signs/symptoms 04/27/23799 Securement taped to nostril center 04/27/23799 Clamp Status/Tolerance unclamped;no abdominal discomfort;no emesis;no nausea;no residual;no restlessness 04/27/23799 Insertion Site Appearance no redness;no warmth;no tenderness;no skin breakdown;no drainage 800 Flush/Irrigation flushed with ease;water 04/27/23 08 Tubing Change 04/24/23 04/24/23 2200 Irrigation/Flush (mL) 50 (mL) 04/25/23 1800 Tube Intake (mL) 65 04/26/23 0700 Net Naso/Oral Volume (mL) 65 (mL) 04/26/23 0700 EVD (External Ventricular Drain) 04/18/23 0730 (Active) Distance Above Site (cm H2O) 0.2 m (7.87) 04/27/23 1003 Ventricular Drainage clear;pink 04/27/23 1003 Insertion Site dressing dry and intact 04/27/23 1003 Insertion Site Drainage none 04/27/23 1003 Interventions open 04/27/23 1003 General Output (mL) 35 04/27/23 1003 Arterial Line 04/22/23 2100 radial artery, right (Active) Daily Review Of Necessity completed 04/27/23 08 Dressing dressing dry and intact 04/27/23 1000 Arterial Catheter Securement catheter securement device utilized;hand board utilized;secured with sterile tape strips 04/27/23799 Lumen Patency/Care flushed without difficulty;blood return present 04/27/23 0800 Waveform normal 04/27/23 0800 Phlebitis 0-->no symptoms 04/27/23 1000 Infiltration 0-->no symptoms 04/27/23 1000 Site Signs/Symptoms no redness;no swelling;no warmth;no pain;no palpable cord;no streak formation;no drainage 04/27/23 0800 Pressure Catheter Interventions line leveled/zeroed;system flushed 04/27/23 08 Labs: No results found for: PHART, PO2ART, HXQ4TBL Recent Labs 04/26/23 0020 WBC 6.5 RBC 3.87* HGB 12.2* HCT 36.3* MCV 93.8* MCH 31.5 MCHC 33.6 PLATELET 186 RDWCV 13.0 Recent Labs 04/27/23 0557 04/26/23 0626 04/26/23 0020 NA 129* < > 134* K 4.2 < > 4.2 CL 100 < > 103 CO2 20* < > 23 BUN -- -- 24* CREATININE -- -- 1.07 GLUCOSE -- -- 149 < > = values in this interval not displayed. Na 129 from 134 Imaging: Physical Exam: NAD, mildly labored breathing, denies dyspnea Answers questions at times, largely unintelligible Much more sluggish and weak to FC BUE and will not FC BLE CTAB but tachypneic and mildly labored RRR no mgr Tense, distended, no rigid, no tenderness ASSESSMENT & PLAN: 67M R cerebellar hemorrhage with IVH and Type B aortic dissection Neuro: cerebellar hemorrhage s/p EVD - EVD @ 20 - CIWA/ativan prn w/d - precedex prn - seroquel 12.5 bid - clonidine 0.3 q8h - DDx decreasing alertness includes increasing clonidine, edema from hyponatremia, ICU delirium - 3% for eunatremia and will discuss higher HR goal with vascular surgery to limit systemic complications of high dose esmolol therapy - CT exclude worsening infratentorial space occupying lesion CV: Type B aortic dissection - HR < 60 on esmolol; d/w pharmacy in [place] to limit hyponatremia - enteral dilt 120 q6h limit total volume load of esmolol in - SBP < 120 on cleviprex - con't carvedilol 25 bid - d/w cardiovascular medicine for additional vs alternate AVNB agents - vascular surgery following - repeat imaging in 3 months per vascular / already ordered by vascular - ASA once EVD removed Pulm: 1 L NC requirement likely residual atelectasis vs mild volume overload; wean as tolerated FEN/Renal: - TF - rebolledo for retention 04/23, I&O - lasix gtt for goal net net 1L/24h - anticipate possible need for diamox addition if developing contraction alkalosis GI: no acute ID: no acute Endo: no acute Heme: no acute PPx: SQH Tubes/Lines/Drains: a-line 04/21, PICC 04/19 Code Status: Attempt Cardiopulmonary Resuscitation - Inpatient Dispo: ICU for EVD wean and hemodynamic management //////////////////////////////////////////////////////////////////////////////// //// Attestation: IS PATIENT CRITICALLY ILL ? Is there a high potential of sudden, clinically significant, or life threatening deterioration? YES Is there a need for direct personal assessment and management to treat/prevent multiple vital organfailure/deterioration? YES If this patient is not critically ill, the reason for continued hospitalization is n/a. PATIENT IS CRITICALLY ILL WITH THESE DIAGNOSES BEING MANAGED BY [facility] TEAM: Cerebellar hemorrhage Obstructive hydrocephalus IVH Volume overload Hyponatremia Type B dissection HTN I personally performed 30 minutes of aggregate critical care time exclusive of procedures and teaching. This includes time spent during direct patient evaluation and reassessment, interpreting diagnostic tests, directing life and/or organ supporting interventions and documentation on the unit. Addendum: Patient developed worsening mental status and escalating respiratory support needs. Given 100 iv lasix without about 40 cc out over next 30 minutes. Requiring 6 L NC for SaO2 low 90s. Supervised trial of BiPAP initiated and multiple ABGs demonstrated not hypercarbic either during or after this trial. Lasix + NIPPV resulted in hypotension with MAP mid 50s and therefore esmolol was held with HR 70 and MAP 75, SBP 122. Mental status continued to decline and in the absence of any overtly reversiblecause patient was intubated for airway protection pending CT scan to exclude worsening posterior fossa edema (although supratentorial ICP remained wnl this does not adequately exclude worsening infratentorial space-occupying lesion. Procedure note: Critical Care Time Due to ongoing life-th decompensation of neurological, cardiovascular, and respiratory systems, this patient required an additional 50 minutes of my undivided attention. This included continuous bedside presence, adjusting lasix dosing, interpretation of multiple arterial blood gasses, NIPPV management including transition from BiPAP to CPAP to facilitate more stable mean airway pressures (highs were causing hypotension and lows pulmonary edema), chest x-ray interpretation, and frequent reevaluations of mental status and work of breathing. This was exclusive of separately billable procedures and teaching time. * Royal Rothman MD - 04/27/2023 7:05 AM EDT NEUROSURGERY PROGRESS NOTE ID: Myla 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 male largely without routine medical care and not on any medications, presenting in transfer from OSH for R cerebellar IPH and intraventricular extension. S/p R EVD placement for hydrocephalous HD# 9 POD # INTERVAL HX/ROS: Neuro stable (encephalopathic) CTH demonstrates continued hemorrhage burden with interval evolution No ICP issues MEDICATIONS: Scheduled Meds: metoprolol 5 mg Intravenous Once cloNIDine 0.3 mg Per G Tube Q8H YUSUF carvediloL 25 mg Per NG tube Q12H magnesium hydroxide 30 mL Oral Daily QUEtiapine 12.5 mg Per NG tube BID dilTIAZem 120 mg Per NG tube Q6H YUSUF tamsulosin 0.4 mg Oral Daily polyethylene glycoL (MIRALAX) oral powder 17 g Oral Daily sodium chloride 4 mL Nebulization Q4H heparin (porcine) 5,000 Units Subcutaneous Q8H YUSUF lidocaine 1 patch Transdermal Q24H camphor-methyl salicyl-menthoL Topical (Top) BID senna-docusate 2 tablet Per NG tube BID thiamine 100 mg Intravenous Daily folic acid 1,000 mcg Per NG tube Daily multivitamin with minerals 1 tablet Per NG tube Daily Continuous Infusions: furosemide (Lasix) (1 mg/mL) infusion 100 mg vial attached to sodium chloride 0.9% 100 mL Mini-Bag Plus 5 mg/hr Intravenous Continuous ### esmoloL (Brevibloc) (10 mg/mL) in sterile water 250 mL infusion 0-200 mcg/kg/min Intravenous Continuous ### tube feeding diet 1,300 mL Per NG tube Continuous ### clevidipine (Cleviprex) (0.5 mg/mL) infusion 1-16 mg/hr Intravenous Continuous ### dexmedeTOMIDine (Precedex) (4 mcg/mL) in sodium chloride 0.9% 100 mL infusion 0- 1.7 mcg/kg/hr (Adjusted) Intravenous Continuous ### PRN Meds: potassium chloride ER OR potassium chloride ER, QUEtiapine, LORazepam OR LORazepam OR LORazepam OR LORazepam OR LORazepam OR LORazepam OR LORazepam OR LORazepam OR LORazepam, fentaNYL (PF), acetaminophen, labetaloL, enalaprilat, bisacodyL, glucose 40% oral geL OR dextrose OR glucagon EXAM: Vitals: Temp: [36.5 ??C (97.7 ??F)-37.4 ??C (99.4 ??F)] Heart Rate: [54-79] Resp: [16-31] BP: (91-126)/(43-61) SpO2: [88 %-99 %] Heart Rate from SpO2: [51 bpm-78 bpm] BMI: Weight: 122.7 kg (270 lb 8.1 oz) (04/27/23 0600) I/O: I/O last 3 completed shifts: In: 8241.3 [I.V.:4342.3; NG/GT:3899] Out: 6846 [Urine:6500; Other:346] EVD @ 20H2O =230cc output, ICP 12-16 GEN: NEURO:GCS E2V1M5 Ox0 Does not participate in EOM exam pupils 5mm and reactive No facial asymmetry Very [employer] [employer]: RUE:Loc LUE: Loc RLE: withdraw LLE: withdraw LABS: Recent Labs 04/26/23 0020 04/25/23 0110 WBC 6.5 6.8 HGB 12.2* 12.3* PLATELET 186 184 Recent Labs 04/27/23 0557 04/27/23 0045 04/26/23 1830 04/26/23 0626 04/26/23 0020 04/25/23 1221 04/25/23 0110 NA 129* 133* 135 < > 134* < > 136 K 4.2 3.8 4.1 < > 4.2 < > 4.1 CL 100 102 104 < > 103 < > 105 CO2 20* 22 21* < > 23 < > 23 BUN -- -- -- -- 24* -- 17 CREATININE -- -- -- -- 1.07 -- 0.93 < > = values in this interval not displayed. No results for input(s): PT, INR in the last 72 hours. IMAGING: CTH 04/25: IMPRESSION Decreasing volume and density of intraventricular hemorrhage. Decreasing size of ventricular system. Additional findings noted above without acute interval changes. Assessment: Myla 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 male largely without routine medical care and not on any medications, presenting in transfer from OSH for R cerebellar IPH and intraventricular extension. S/p R EVD placement for hydrocephalus. Doing well from neurologic standpoint, MRI done with no evidence of mass lesion. Hemorrhagic strokeworkup per NCCU/Neurology. Problem List: IPH IVH Hydrocephalous Plan: - Q2HNC - Pain control - Imaging: CTH complete - SBP<160 - Monitor EVD/ICP per protocol, open at 20, - DVT ppx: SCDs, Ok SQH. Hold ASA for now - Current Diet: Sips and Chips (Give Meds) - Further care per NCCU PLEASE PAGE [phone] WITH QUESTIONS Active Hospital Problems Diagnosis ICH (intracerebral hemorrhage) Resolved Hospital Problems No resolved problems to display. There are no active non-hospital problems to display for this patient. Royal Rothman MD 04/27/2023 Associated attestation - Nayana Barker MD - 05/03/2023 4:46 PM EDT I was the attending physician supervising the resident in the above care. For the purposes of billing, the resident provided the care. * Franchesca Sheehan, RN - 04/27/2023 6:48 AM EDT Junior TAFOYA aware unable to maintain CPP goal due to tight heart rate and SBP goals. Plan to continuing to monitor neuro exam and ICP. Per NCCU team request during change of shift report, decrease precedex infusion by 25% with each clonidine administration. After discussion with Junior TAFOYA, PRN daily seroquel okay to be administeredafter scheduled dose administered to facilitate wean. If unable to wean infusion, okay to maintain.Unable to wean infusion due to increased agitation which also increased heart rate/BP. Infusion titrated back up to facilitate medical management of goals throughout rest of shift. Difficult achieving heart rate goal despite scheduled medications. Additional coreg dose given and scheduled dose increased. Cardizem noted to be effective at getting closer to heart rate goal, but decreases BP significantly. Discussed with MICHELET Bustos possibility of splitting dose to be administered more frequently. 60 mg IV lasix administered for a net negative 1L fluid goal. Difficult to achieve with continuous medication infusions. Lasix infusion later ordered. Potassium replaced on midnight check. Continuing Q6 hour electrolyte panel. Akash TAFOYA notified on day shift 04/26 of temp 99.4 axillary. Continue to monitor. Also notifiedof down titration of esmolol due to SBP and MAP below goals even though heart rate not within goal.Okay to down titrate to for MAP >/= 60. Rediscuss with team if heart rate hits 70. * Tiarra Vasquez SLP - 04/26/2023 2:45 PM EDT Speech Therapy Note Patient Profile: Myla 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 He was intubated at OSH for airway protection given worsening somnolence and transferred to [facility] on 04/18/2023. Patient was extubated on 04/18 and then re-intubated later that day for hypoxic respiratory failure with secretion involvement (extubated successfully on 04/21; 4 days total). TREASURY CONSULTANT has been following since 04/22 for cognition and dysphagia management. Interval History: Fluctuating arousal Recent Imaging: No new imaging on file. Subjective: Patient was lethargic, requiring continuous encouragement to participate. Objective: Patient seen for dysphagia management and demonstrated the following: Pain: No acute signs of discomfort Respiratory Status: Nasal canula 1 L/min, satting 93-96% Current Diet: Sips and Chips (Give Meds) Feeding / Oral Care Status: Patient is dependent due to a combination of post- stroke weakness, generalized deconditioning, and altered mental status requiring bilateral wrist restraints. He was intermittently receptive to feeding attempts from his and the clinician. Cognitive-Linguistic Status: Lethargic Reduced attention span Poor initiation requiring consistent cues Intermittently frustrated but easily redirected Minimal communication attempts Confusion Assessment Method (CAM) Adapted from Shannan et al., 1990 Acute Onset: Yes Inattention: Did the patient have difficulty focusing attention?: Present at some time during interview, in marked form (If present or abnormal) Did this behavior fluctuate during the interview?: No (If present or abnormal) Please describe this behavior: Fluctuating arousal, poor focus requiring cues to attend to speaker Disorganized Thinking: Yes (Rambling or irrelevant conversation, unclear or illogical flow of ideas, or unpredictable, switching from subject to subject) Altered Level of Consciousness: Lethargic (drowsy, easily aroused) Scoring For diagnosis of delirium, Pt must display: Presence of acute onset and fluctuating discourse AND 2. Inattention AND EITHER 3. Disorganized thinking OR 4. Altered level of consciousness [x] [x] [x] [x] Additional/Supplemental Scoring: Disorientation: Yes Memory Impairment: Yes Perceptual Disturbances: Uncertain (Hallucinations, illusions or misinterpretations). Psychomotor Agitation: No (Restlessness, picking at bedclothes, tapping fingers or making frequent, sudden changes in position). Psychomotor Slowing: Yes (Sluggishness, staring into space, staying in one position for a long time, or moving very slowly?) Altered Sleep-Wake Cycle: Yes (Excessive daytime sleepiness with insomnia at night) Command Following: Does not follow commands accurately Positioning: HOB at 50 degrees (RN adjusted EVD) Oral Motor Examination: Unable to assess due to limited command following. Suspect generalized weakness based on overall presentation. Provided oral care for removal of thick secretions from the anterior oral cavity, teeth, tongue, and palate. Bolus Presentations: Ice chips x3 Water via straw x1 Jello via 1/2 tsp x3 Oral Preparatory Phase Mastication: Minimal attempts with ice chips Oral transit: Sluggish and disorganized, typically required cues to initiate Bolus cohesion: Reduced Oral containment: Reduced; patient spit out 2/3 ice chips and 1/3 spoonfuls of Jell-O Oral stasis: None post-swallow Pharyngeal Phase Swallow initiation: Sluggish, delay suspected Vocal quality change: None Cough / throat clear: None Pt complaint of food getting stuck: N/A Fatigue across trials: Yes Respiratory rate and respiratory swallow pattern: Intermittently increased WOB between trials, benefited from rest breaks Esophageal Observations Unable to comment meaningfully with limited trials Education: Provided patient's with ongoing education re: ICU delirium, including a written handout. Discussed strategies for mitigating delirium such as playing preferred music and bringing in familiar objects. Patient's verbalized understanding and appreciation for this information. Patient status and swallow recommendations were discussed with nursing. Assessment: Myla was seen today for cognition and dysphagia management. His overall presentation was largely unchanged from previous observations with altered mental status characterized by fluctuating arousal, inattention, disorientation, poor initiation, and limited insight into his functional status. Limited oral motor examination revealed a moderate amount of dried secretions within the oralcavity which required moistening to clear. Completed PO trials of single ice chips, a sip of water,and half teaspoons of Jell-O. Patient required consistent encouragement to participate and often spit out foods that he did not want. When accepting of PO, yMla presented with sluggish and disorganized oral manipulation and subjectively delayed swallow initiation. He seemed to tolerate ice chips and small volumes of water well from a respiratory standpoint. Suspect dysphagia is currently multifactorial in the setting of post-stroke weakness, generalized deconditioning, altered mental status, and potentially delirium, and will likely continue to evolve with progression of neurological symptoms. For now, recommend continuing sips and chips when patient is alert and accepting with consistent use of aspiration precautions below. Myla will continue to require alternative nutrition via DHT. We will continue to follow for frequent reassessment. Diagnosis: Oral and suspected pharyngeal dysphagia 2/2 post-stroke weakness, generalized deconditioning, and altered mental status Recommendations: Diet: Sips / chips (only when alert and accepting) PO Medications: IV or other alternative means only Aspiration Precautions: Sit upright for PO intake Small sips, single ice chips Excellent oral care to reduce risk of aspiration pneumonia Delirium Precautions: Orientation: Provide visual and hearing aids Utilize cues such as calendars and clocks Encourage communication and reorient patient repeatedly Have familiar objects from patient's home in room Attempt consistency in nursing staff Allow television during the day with daily news Environment: Sleep hygiene (dim light at nighttime, bright during the day) Limit excess noise (staff, equipment, visitors at night) Ambulate or mobilize patient early and often Speech Therapy Goals: Pt will tolerate least restrictive diet without further respiratory decompensation. Caregiver will be independent with aspiration precautions. Pt will maintain hydration / nutrition with optimal safety and efficiency. Caregiver will follow anti-delirium precautions with assist from staff as needed. Plan: Therapy Frequency (TREASURY CONSULTANT Eval): 3-5 times/wk Patient's is in agreement with the plan of care. Total Minutes (Speech Language Pathology): 30 Tiarra Vasquez MS, CCC-TREASURY CONSULTANT Speech-Language Pathologist Inpatient Rehabilitation Pager # [phone] * [place] Leal, PT - 04/26/2023 11:45 AM EDT Physical Therapy Intervention Note Treatment Number PT: 2 Total duration of encounter: 8 days Patient profile: Myla Acosta is a 67 year old male with unknown pmhx (per chart review, does notappear to have a PCP or follow up within the [facility] system) who presents as a transfer from an OSH for evaluation of a right cerebellar IPH. Per report, LKN was 04/17/23 at 2100, he woke up c/o vertigo and nausea/vomiting. Subsequent imaging studies revealed a right cerebellar IPH with ANIL. Initial Bps were noted to be in the 200s. Was started on a nicard gtt for BP control. Was subsequently intubated at the OSH for airway protection given worsening somnolence. Presented to [facility] where he was intubated. Brainstem reflexes were preserved. Decision was made to place EVD with NSG. Imaging of carotids and [place] of nugent reveal unexpected finding of type B aortic dissection. CTACA with type B dissection extending from subclav to external iliac. Vascular surgery was consulted.Pt was extubated on 04/23, but has been on the CIWA protocol. INTERVAL HX/ROS: per neurosurgery Remains extubated Neuro stable Failed flat trial again for CTH Social History: Patient lives with spouse in a [place]le level home, [address]. Walk in shower with Gbs. Spouse works fulltime. 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 Normally independent. Bilateral hip OA/pain but no device used normally. Independent ADLs and shared IADLs Precautions/Special Considerations: HOB > 30 deg, SBP <120, HR <60, R EVD can be clamped x15 mins, rebolledo catheter, PICC, arterial line, DHT, sips and chips diet, goal spO2 >92%, supplemental O2, bilateral wrist restraints Mobility and Positioning Recommendations: Pt. to utilize bed/chair positioning with nursing. Please encourage up to chair for meal times as able. [facility] Level 2: Bed-Chair position, Mechanically lift to chair, Participate in self care Subjective: ???just leave it be, let me sit?? Objective: Pt seen for physical therapy treatment today and presented as follows: Pain: Number Location At rest FACES 0 With activity FACES 5 ow When sat up EOB - unable to specify where pain was located - stated everywhere when asked Vital Signs: At Rest With Activity SpO2 (1LNC) 94% 96% BP (MAP) 100s/50s (60s)mmHg 100s/50s (70s)mmHg HR 51bpm 57bpm Behavior / Mood: agitated, irritable, oppositional, confused, impaired task initiation, and lethargic Oriented to: person, not month or date when given choices. State February and thought [place] was [place] Follows commands: 1 step and 25% of the time, needs repeated verbal and tactile cuing Attention: difficulty attending to task/directions, verbal and tactile cuing to maintain arousal/participation Safety awareness: impulsive and bilateral wrist restraints. Cuing and assist needed constantly due to pt frequently pulling at lines/tubes RASS: -1 --> +1 CAM: N/A Communication: verbal, garbled/mumbled speech at times Vision: glasses worn Skin: intact but at risk for breakdown. Some pressure from glasses on nasal bridge L > R Musculoskeletal: ROM: full AROM and PROM appreciated UE and LE based on observation Sensation: AVI Tone: normal Strength: at least 3/5 bilateral LE but unable to participate in formal MMT due to irritability when requested Bed Mobility: Supine to Sit: max-dependent x2 A to R side EOB, HOB elevated Sit to Supine: dependent - x3 A from EOB Other: boosted and rolled with x3-4A and heavy reliance on bed features Transfers: Sit to Stand: unable Stand to Sit: unable Bed to Chair: dependent with bed features into bed chair positioning Other: N/A Gait: AVI Stairs: AVI Balance: Sitting Static: poor - R sided lean, posterior lean and LOB. Unable to maintain midline and uprightwithout max A x1 for posterior trunk. Able to use LUE to hold bed rail intermittently when cued/assisted Sitting Dynamic: very poor Standing Static: AVI Standing Dynamic / Gait: AVI Education: patient educated on role of PT, orientation, participation, safety, and plan of care, with poor/guarded understanding/demonstration. Patient status, treatment, and mobility recommendations discussed with nursing. Pt left supine in bed, with all needs met, with call hurley in reach, with bed alarm active, with restraints secured, and with family at the bedside following visit. Team Communication: communication with nursing staff pre/post session regarding readiness and response to therapy intervention. Assessment: Myla Acosta was seen today for physical therapy intervention. Pt with much better BP and HR control this date, allowing for increased activity. Assisted in bed mobility and sitting at EOB, however pt with poor sense of midline, requiring heavy assistance to maintain upright. Able to follow more commands and participate more in exam today. Continues to demonstrate adequate strength to all extremities. Remains easily irritated and agitated, with impaired cognition/orientation. Based on current presentation, anticipate pt would be able to tolerate acute vs swing level of rehab once discharged from hospital care setting. Pt will benefit from skilled therapy services throughout hospitalization to promote safety, independence, and provide developmental support/caregiver education. Discharge Recommendations: Based on the current findings, Anticipated Discharge Disposition (PT): acute rehabilitation facility, swing bed rehabilitation facility when medically ready for hospital discharge. Discharge recommendation is based on the patient's current physical impairments, prior functional status, potential to return to prior level of function, patient motivation, reported home support, potential for functional gains, current level of endurance, reported home environment and anticipated trajectory of progress and may change based on patient progress during this hospitalization. Consult Recommendations: No other consults recommended at this time. Equipment Needs: Anticipated Equipment Needs at Discharge (PT): to be determined Inpatient/Acute Care PT Plan: Therapy Frequency (PT): 2-4 times/wk for therapy. x Consult service will continue to follow patient. PT signing off. Recommendations above, page if further consultation required. Goals: Goals ongoing as of 04/26/23 unless otherwise noted Goals: To be achieved by 05/25/23: Pt. to demonstrate knowledge of safety limitations and precautions Pt. to demonstrate understanding of appropriate exercises. Pt. to perform supine to/from sitting EOB with mod A x2 Pt. to perform sit to/from stand transfers with mod A x2 and LRAD Pt. to ambulate 10 feet with mod A and least restrictive assistive device Pt. to propel WC x50 feet with min A Pt to sit at EOB, participating in functional task for >5 minutes without LOB, with CG assistance Pt to tolerate use of overhead lift for OOB transfers Pt to tolerate upright positioning with VSS Time IN / OUT: 9996-2990 Total Minutes, Physical Therapy: 28 Billing Code: x2 TEF Thank you for this consult. [place] Leal, PT Pager: [phone] Physical Therapy Inpatient Rehabilitation Department * Angelia Paulino, RD - 04/26/2023 11:12 AM EDT Nutrition Progress Note Myla 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 male with unknown pmhx (no PCP or listed medications) who presents asa transfer from an OSH for evaluation of a right cerebellar IPH. Now s/p R EVD placement 04/17 givenhydrocephalus. Reason for Assessment: ICU Tube Feeding, Follow-up Nutrition Recommendations: Enteral Nutrition: Average tube feeding provision over past 3 days; 890 mL vs daily goal volume of 1300 mL formula (68% of goal) Goal below remains appropriate Monitor BM - goal of one every 24-48 hrs while on TF - last BM 04/21 - adjust bowel meds. Peptamen AF with a goal rate of 65 ml per hour plus 0 scoops of protein powder daily. This rate is calculated to compensate for unplanned time off feedings due to potential procedures, etc. At goal, this will provide: Peptamen AF Total Volume Per Day: 1300 mL Scoops of Protein: 0 Calories per Day: 1560 Protein per Day: 99 g Free Water mL per Day: 1056 % RDI: 104 % Monitor hydration status on above TFs as they are concentrated. Pt may need additional fluids depending on IVFs, med flushes, p.o. Intake, etc. Mag and Phos with daily BMP or CMP labs; replenish as indicated. Daily weights. BG goal 140-180 in ICU. I was able to discuss plan with provider [place] [id number] team . Current Nutrition Regimen: Active Orders Diet Sips and Chips (Give Meds) Frequency: Effective Now Number of Occurrences: Until Specified All Active TF Orders: Tubefeeding Orders (From admission, onward) Start Dose/Rate Route Frequency Ordered Stop 04/24/23 1030 tube feeding diet 1,300 mL Per NG tube CONTINUOUS 04/24/23 0941 Average tube feeding provision over past 3 days; 890 mL vs daily goal volume of 1300 mL formula (68% of goal) Tolerance or barriers to meeting needs: Holds - constipation, etc. Assessment: Lab Results Component Value Date NA 135 04/26/2023 K 3.8 04/26/2023 CL 103 04/26/2023 CO2 23 04/26/2023 BUN 24 (H) 04/26/2023 CREATININE 1.07 04/26/2023 ESTGFR 77 04/26/2023 MAGNESIUM 0.71 04/26/2023 CALCIUM 8.4 (L) 04/26/2023 PHOS 2.4 (L) 04/26/2023 AST 28 04/23/2023 ALT 26 04/23/2023 ALKPHOS 64 04/23/2023 BILITOT 0.4 04/23/2023 BILIDIR 0.2 04/23/2023 TRIG 144 04/23/2023 HA1C 6.0 (H) 04/19/2023 Lab Results Component Value Date POCGLU 126 04/26/2023 POCGLU 124 04/26/2023 POCGLU 145 04/26/2023 POCGLU 126 04/25/2023 POCGLU 132 04/25/2023 POCGLU 131 04/25/2023 Patient Lines/Drains/Airways Status Active Nutritional LDAs Name Placement date Placement time Site Days Naso/Oral Tube 04/23/23 1559 small bore weighted ([place]) right nostril 04/23/23 1559 right nostril 3 PIV 04/19/23 1416 20 gauge;1.75 in length cephalic vein (lateral side of arm), left 04/19/23 1416 -- 7 PICC Line 04/20/23 1410 Triple Lumen 5 Fr brachial vein, right 04/20/23 1410 -- 6 Urethral Catheter 04/24/23 1401 04/24/23 1401 -- 2 EVD (External Ventricular Drain) 04/18/23 0730 04/18/23 0730 -- 8 Oxygen Therapy / Airway Device: Nasal cannula Shift Pressure Injury Prevention Occiput: No Injury Thoracic Spine: No Injury Sacral: No Injury Ischial - left: No Injury Ischial - right: No Injury Heel - left: No Injury Heel - right: No Injury Elbow - left: No Injury Elbow - right: No Injury Device Sites: A line sites - tubing, A line Board, BP Cuff, ECG Leads, rebolledo, IV sites, NGT, O2 satmonitor, oxygen tubing, SCD's / venodynes, wrist restraints Other Sites: IDB, EVD, Ext cath Last Bowel Movement: 04/22/23 Intake/Output Summary (Last 24 hours) at 04/26/2023 1112 Last data filed at 04/26/2023 0953 Gross per 24 hour Intake 5180.3 ml Output 4819 ml Net 361.3 ml Relevant medications: Continuous esmoloL 50 mcg/kg/min (04/26/23 1046) furosemide tube feeding diet 0 mL (04/26/23 0830) clevidipine 2 mg/hr (04/26/23 1045) dexmedeTOMIDine 1.2 mcg/kg/hr (04/26/23 1000) Scheduled cloNIDine 0.2 mg Per G Tube Q8H YUSUF magnesium hydroxide 30 mL Oral Daily QUEtiapine 12.5 mg Per NG tube BID dilTIAZem 120 mg Per NG tube Q6H YUSUF carvediloL 12.5 mg Per NG tube BID tamsulosin 0.4 mg Oral Daily polyethylene glycoL (MIRALAX) oral powder 17 g Oral Daily sodium chloride 4 mL Nebulization Q4H heparin (porcine) 5,000 Units Subcutaneous Q8H YUSUF lidocaine 1 patch Transdermal Q24H camphor-methyl salicyl-menthoL Topical (Top) BID senna-docusate 2 tablet Per NG tube BID thiamine 100 mg Intravenous Daily folic acid 1,000 mcg Per NG tube Daily multivitamin with minerals 1 tablet Per NG tube Daily PRN QUEtiapine, potassium chloride in water OR potassium chloride in water OR potassium chloride in water, LORazepam OR LORazepam OR LORazepam OR LORazepam OR LORazepam ORLORazepam OR LORazepam OR LORazepam OR LORazepam, fentaNYL (PF), acetaminophen, labetaloL, enalaprilat, bisacodyL, glucose 40% oral geL OR dextrose OR glucagon Anthropometrics: Admit Weight: 111.8 kg Estimated body mass index is 40.23 kg/m?? as calculated from the following: Height as of this encounter: 174 cm (5' 8.5). Weight as of this encounter: 121.8 kg (268 lb 8.3 oz). [place] Body Weight (IBW) (kg): 71.37 Wt Readings from Last 10 Encounters: 04/26/23 (S) 121.8 kg (268 lb 8.3 oz) Patient Vitals for the past 168 hrs: Weight 04/26/23 0300 121.8 kg (268 lb 8.3 oz) 04/25/23 0600 119.9 kg (264 lb 5.3 oz) 04/23/23 0154 112 kg (246 lb 14.6 oz) 04/21/23 0000 115.3 kg (254 lb 3.1 oz) 04/20/23 0600 117.2 kg (258 lb 6.1 oz) Weight Source: (S) Bed Estimated / Assessed Needs: Fluid Requirements: Estimated Fluid Requirement Method: Weight Based Method Weight Based Method: 30 Weight Based Calculation: 2142 mL Kcal / K - 1785 Kcal (20 Kcal/Kg - 25 Kcal/Kg) Estimated Protein Needs: 86 g - 107 g (1.2 g/Kg - 1.5 g/Kg) Nutrition intake and intake history / interview: 04/25: TF was off/on hold this morning due to TF formula not being available per flowsheet - checkedunit storage - plenty of Pep AF in top drawer. Pt back from CT scan and TF reportedly restarted. NoBM since 04/21. Phos and Na slightly low. 04/23: Consulted again for TF. Prior goal remains appropriate for now - advance to goal. Off propofol. Has small bore feeding tube. Needs to move bowels. NPO per TREASURY CONSULTANT. 04/19: Re-intubated. TF at 25 mL/hr today. On low dose propofol. No BM this admission. 04/17: Consulted for TF recommendations. May extubate tomorrow. On some propofol. On alcohol withdrawal protocol - thiamine, folic acid and Thera M ordered. Nutrition Focused Physical Exam: Not performed Reason NFPE Not Performed: Not indicated. Malnutrition Diagnosis: Not identified (Lauryn et al, JPEN J Parenteral Enteral Nutr. 2011; 36(3): 273-83) Nutrition to continue to follow up while inpatient Thank you, Angelia Paulino RDN, CNSC, LD Clinical Nutrition * Delaney Gray OT - 04/26/2023 11:06 AM EDT Occupational Therapy Treatment Note Treatment Number OT: 2 Patient profile: Myla 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 male admitted on 04/18/2023 for R cerebellar hemorrhage with IVH. EVD was placed for hydrocephalus. Pt was intubated at OSH for airway protection. Imaging of carotids and [place] of [place] reveal unexpected finding of type B aortic dissection. CTA CA with type B dissection extending from subclav to external iliac. Vascular surgery was consulted. Pt wasextubated on 04/23, but has been on the CIWA protocol. Social History: Patient lives in [place], [place] with his , Tiffany, who still works. They have 2 children 10 and 30 mins away. Home Setup: 1 [address], 1 level, small thressholds in the house, has a large walk-in shower w/ no seat but grab bar. Per his , he built the house. DME: grab bar, Baseline ADL/Mobility: Pt was independent w/ ADL's. He was somewhat limited because of arthritis inhis hips, but he ambulated w/o a device and his denies h/o falls. He was driving. They share cooking, but Tiffany does most other solderer electronic. 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 He enjoys woodworking and puttering. Precautions/Special Considerations: at risk to fall, EVD (RN must clamp EVD to change position of head, can be clamped x15 mins), DHT, SBP< 120, sips n chips, HR<60, R UE PICC, R radial a-line,Sp02>92%, supplemental 02 Interval History: EVD continues to be present S: Just let me be. O: Patient seen for skilled OT treatment, and demonstrated the following: Self-care: Max VCs and CGA to wash face sitting EOB, pt attempting to pull on NG tube Dependent to don socks Functional Mobility: Supine to Sit: max-dependent x2 A to R side EOB, HOB elevated Sitting EOB: Max A with R-sided and posterior Sit to Supine: dependent - x3 A from EOB Boosted and rolled with x3-4A and heavy reliance on bed features Sit to Stand: unable Stand to Sit: unable Bed to Chair: dependent with bed features into bed chair positioning Cognition: Behavior / Mood: cooperative, agitated, impaired task initiation, and lethargic Alert and oriented to: person, [place], reoriented to place, time and situation Follows commands: 1 step, requires increased time, and requires repetition Attention: distractible, difficulty attending to task / directions, and requires cues to redirect Safety awareness: decreased insight into deficits and severe impairment [place] Vision: Mod VCs to open eyes, able to track, attends with Min VCs Endurance: poor, limited by EVD clamping of 15 minutes Vitals: At rest: O2 on 1L- 94% BP: 101/50 HR 56 With activity: O2 on 1L- 97% BP: 105/53 HR 56 Strength/ROM: grossly weak, able to complete gross grasp with each hand Pain: it all hurts Education: Pt/family/caregiver education ongoing regarding: Role of occupational therapy/rehabilitation, Transfers, ADL, Exercise, Breathing exercises, Positioning, Safety, Precautions/Protocol, Functional Mobility, Activity pacing/Energy conservation, Balance, Recommendations, Family training, and Discharge planning. Staff Communication: Patient status, treatment, and mobility recommendations discussed with nursing/other staff. ASSESSMENT: Myla was seen for progression for OT. Max A x2 to transfer from supine to sit and Max A to stay sitting EOB. Patient required Max VCs for safety and sequencing. CGA and Max VCs to wash face with pt requiring VCs to not pull on lines. Pt will benefit from ongoing therapeutic interventions to achieve pt's and therapy goals Equipment needs at discharge: to be determined Anticipated Discharge Disposition: acute rehabilitation facility Daily schedule / Staff Recommendations: Open shades and turn on lights during the day/lights off at night, Set-up patient with ADL tasks, allow patient to complete ADL tasks as independently as possible Provide choices as able, encourage safe coping skills (such as music, reading, coloring, word search, journaling) Have patient sit up in recliner via lift or bed in chair position during the day as much as possible Sit upright for all meals/meal times Goals: To be achieved within 2 weeks, by 05/08/23: Patient will consistently follow simple one-step commands. Patient will consistently be oriented x 4 and CAM (-). Patient will be complete grooming tasks in supported sitting w/ min A. Patient will be mod A with LB dressing. Patient will be mod A toileting. Patient will be mod A w/ a sponge bath in supported sitting. Patient will participate in further vision evaluation. Therapy Frequency (OT): 2-4 times/wk Total Minutes, Occupational Therapy: 19 ([phone] (self care x1)) Pager: [phone] Delaney Gray OT 04/26/2023 Occupational Therapy Rehabilitation Department * Georges Jacob MD - 04/26/2023 10:44 AM EDT NEUROCRITICAL CARE PROGRESS NOTE Date of Admission: 04/18/2023 6:34 AM LOS: 8 ICU LOS: 8d 4h 24 Hour Events: Net + 1.2L ICP 15-23, > 200 cc/24h out EVD Active Medications: esmoloL 100 mcg/kg/min (04/26/23 1031) tube feeding diet Stopped (04/26/23 0830) clevidipine 4 mg/hr (04/26/23 1027) dexmedeTOMIDine 1.7 mcg/kg/hr (04/26/23 0936) magnesium hydroxide 30 mL Oral Daily QUEtiapine 12.5 mg Per NG tube BID dilTIAZem 120 mg Per NG tube Q6H YUSUF carvediloL 12.5 mg Per NG tube BID tamsulosin 0.4 mg Oral Daily furosemide 40 mg Intravenous Q6H polyethylene glycoL (MIRALAX) oral powder 17 g Oral Daily sodium chloride 4 mL Nebulization Q4H heparin (porcine) 5,000 Units Subcutaneous Q8H YUSUF lisinopriL 40 mg Per NG tube Daily lidocaine 1 patch Transdermal Q24H camphor-methyl salicyl-menthoL Topical (Top) BID insulin lispro 1-6 Units Subcutaneous Q4H YUSFU senna-docusate 2 tablet Per NG tube BID thiamine 100 mg Intravenous Daily folic acid 1,000 mcg Per NG tube Daily multivitamin with minerals 1 tablet Per NG tube Daily QUEtiapine, potassium chloride in water OR potassium chloride in water OR potassium chloride in water, LORazepam OR LORazepam OR LORazepam OR LORazepam OR LORazepam OR LORazepam OR LORazepam OR LORazepam OR LORazepam, fentaNYL (PF), acetaminophen, labetaloL, e nalaprilat, bisacodyL, glucose 40% oral geL OR dextrose OR glucagon Vitals: Vital Sign Ranges: Last value Range last 24 hrs Temperature Temp: 36.6 ??C (97.8 ??F) Temp: [36.5 ??C (97.7 ??F)-37.6 ??C (99.6 ??F)] Heart Rate Heart Rate: 61 Heart Rate: [53-83] Blood Pressure BP: 119/61 BP: (102-126)/(51-61) Respiratory Rate Resp: 26 Resp: [16-28] SpO2 SpO2: 97 % SpO2: [92 %-100 %] Art BP BP (Arterial Line): 100/54 BP (Arterial Line): (94-130)/(52-73) Intake/Output: I/O 04/22 0701 04/23 0700 04/23 0701 04/24 0704/24 0704/25 0704/25 0701 03/21 0700 P.O. 0 30 0 I.V. (mL/kg/hr) 5633 (2.1) 4586.2 (1.6) 3164 (1.1) 227.8 (0.5) Blood NG/GT 239 1859.8 2171 142 Irrigation 160 100 150 Total Intake(mL/kg) 6032 (53.9) 6576.1 (54.8) 5485 (45) 369.8 (3) Urine (mL/kg/hr) 1680 (0.6) 3695 (1.3) 3980 (1.4) 1150 (2.5) Emesis/NG output 0 0 0 Other 254 367 261 23 Stool 0 0 0 Total Output(mL/kg) 1934 (17.3) 4062 (33.9) 4241 (34.8) 1173 (9.6) Net +4098 +2514.1 +1244 -803.2 Unmeasured Urine Occurrence 0 x Stool Occurrence 0 x 0 x 0 x Emesis Occurrence 0 x 0 x 0 x Lines/Drains/Airways: PICC Line 04/20/23 1410 Triple Lumen 5 Fr brachial vein, right (Active) External Catheter Length (cm) 0 04/25/23 1300 Indication/Daily Review of Necessity Medications known to cause phlebitis (vasopressors, concentrated electrolytes, TPN, chemotherapy) 04/26/23 08 Site Preparation/Maintenance dressing: dry and intact 04/26/23 08 Dressing change due 04/27/23 04/26/23 0400 Needleless Connector change due 04/24/23 04/25/23 2100 Securement catheter stabilization device, secured with 04/26/23799 Distal (Foster) Patency/Maintenance flushed without difficulty 04/26/23 08 Medial (White) Patency/Maintenance flushed without difficulty 04/26/23 08 Proximal (Red) Patency/Maintenance flushed without difficulty 04/26/23 08 Phlebitis 0-->no symptoms 04/26/23 08 Infiltration 0-->no symptoms 04/26/23 08 Site Signs/Symptoms no redness;no swelling;no warmth;no pain;no palpable cord;no streak formation;no drainage 04/26/23 08 Arm Circumference [place] Between Insertion & Axilla (cm) 38 04/25/23 1300 PIV 04/19/23 1416 20 gauge;1.75 in length cephalic vein (lateral side of arm), left (Active) Indication/Daily Review of Necessity medication therapy continuous 04/25/23 2100 Site Preparation/Maintenance dressing: dry and intact 04/26/23 06 Securement catheter stabilization device, secured with 04/26/23 0400 Patency/Maintenance flushed without difficulty 04/25/23 220 Dressing change due 04/26/23 04/25/23 220 Phlebitis 0-->no symptoms 04/26/23 06 Infiltration 0-->no symptoms 04/26/23 06 Site Signs/Symptoms no redness;no swelling;no warmth;no pain 04/26/23 040 Urethral Catheter 04/24/23 1401 (Active) Indication/Necessity Acute urinary retention or obstruction 04/26/23 075 Securement secured to upper leg with adhesive device 04/26/23 075 Maintenance Closed system maintained;Catheter secured to leg;Collection bag maintained below the bladder;Urine flow is unobstructed;Collection bag emptied when half full or at least every 4 hours using a separate container for this patient, drainage spigot not allowed to touch container;Hand hygiene performed before and after touching catheter and collection system 04/26/23 075 Foreskin circumcised 04/25/23 08 Tolerance no signs/symptoms of discomfort 04/26/23 075 Urine Characteristics clear yellow 04/26/23 0953 Urine Output (mL) 550 04/26/23 0953 Naso/Oral Tube 04/23/23 1559 small bore weighted (Dobhoff) right nostril (Active) Placement Check Methods distal length tube measured 04/26/23 0753 Catheter Depth (cm) 70 cm 04/26/23 0753 Tolerance no adverse signs/symptoms 04/26/23 075 Securement taped to nostril center 04/26/23 075 Clamp Status/Tolerance unclamped;no abdominal discomfort;no abdominal distention;no emesis;no nausea;no residual;no restlessness 04/26/23 075 Insertion Site Appearance no tenderness;no redness 04/24/23 08 Flush/Irrigation flushed with;water 04/25/232199 Tubing Change 04/24/23 04/24/23 220 Irrigation/Flush (mL) 50 (mL) 04/25/23 1800 Tube Intake (mL) 65 04/26/23 0700 Net Naso/Oral Volume (mL) 65 (mL) 04/26/23 0700 EVD (External Ventricular Drain) 04/18/23 0730 (Active) Distance Above Site (cm H2O) 0.2 m (7.87) 04/26/23 0949 Ventricular Drainage pink 04/26/23 0949 Insertion Site dressing dry and intact 04/26/23 09 Insertion Site Drainage none 04/26/23 0949 Interventions open 04/26/23 09 General Output (mL) 15 04/26/23 0949 Arterial Line 04/22/23 2100 radial artery, right (Active) Daily Review Of Necessity completed 04/26/23 08 Dressing dressing dry and intact 04/26/23 08 Arterial Catheter Securement catheter securement device utilized;arm board 04/26/23 08 Lumen Patency/Care flushed without difficulty;blood return present 04/26/23 08 Waveform normal 04/26/23799 Phlebitis 0-->no symptoms 04/26/23 08 Infiltration 0-->no symptoms 04/26/23 08 Site Signs/Symptoms no redness;no swelling;no warmth;no pain;no streak formation;no drainage;no palpable cord 04/26/23 08 Pressure Catheter Interventions line leveled/zeroed;system flushed 04/26/23 08 Labs: No results found for: PHART, PO2ART, [id number] Recent Labs 04/26/23 0020 WBC 6.5 RBC 3.87* HGB 12.2* HCT 36.3* MCV 93.8* MCH 31.5 MCHC 33.6 PLATELET 186 RDWCV 13.0 Recent Labs 04/26/23 0626 04/26/23 0020 NA 135 134* K 3.8 4.2 CL 103 103 CO2 23 23 BUN -- 24* CREATININE -- 1.07 GLUCOSE -- 149 Imaging: Physical Exam: Somnolent (EVD just clamped for CT, appeared much more alert prior to this) Eyes to voice FC at times, moderate to severe RUE ataxia, ? RUE weakness vs poor effort Answers some questions appropriately Minimal diffuse rhonchi Bradycardic, regular, no mgr 1+ peripheral edema ASSESSMENT & PLAN: 67M R cerebellar hemorrhage with IVH and Type B aortic dissection Neuro: cerebellar hemorrhage s/p EVD - EVD @ 20 - CIWA/ativan prn w/d - precedex prn - seroquel 12.5 bid - clonidine 0.2 q8h CV: Type B aortic dissection - HR < 60 on esmolol - enteral dilt 120 q6h limit total volume load of esmolol in - SBP < 120 on cleviprex - con't carvedilol 12.5 - vascular surgery following - repeat imaging in 3 months per vascular / already ordered by vascular - ASA once EVD removed Pulm: 1 L NC requirement likely residual atelectasis vs mild volume overload; wean as tolerated FEN/Renal: - TF - rebolledo for retention 04/23 - lasix gtt 10/hr and titrate for goal net negative -50 cc/hr; anticipate possible need for diamox addition if developing contraction alkalosis GI: no acute ID: no acute Endo: no acute Heme: no acute PPx: SQH Tubes/Lines/Drains: a-line 04/21, PICC 04/19 Code Status: Attempt Cardiopulmonary Resuscitation - Inpatient Dispo: ICU for EVD wean and hemodynamic management //////////////////////////////////////////////////////////////////////////////// //// Attestation: IS PATIENT CRITICALLY ILL ? Is there a high potential of sudden, clinically significant, or life threatening deterioration? YES Is there a need for direct personal assessment and management to treat/prevent multiple vital organfailure/deterioration? YES If this patient is not critically ill, the reason for continued hospitalization is n/a. PATIENT IS CRITICALLY ILL WITH THESE DIAGNOSES BEING MANAGED BY [facility] TEAM: Type B aortic dissection Cerebellar hemorrhage IVH Obstructive hydrocephalus HTN Volume overload I personally performed 35 minutes of aggregate critical care time exclusive of procedures and teaching. This includes time spent during direct patient evaluation and reassessment, interpreting diagnostic tests, directing life and/or organ supporting interventions and documentation on the unit. * Royal Rothman MD - 04/26/2023 6:57 AM EDT NEUROSURGERY PROGRESS NOTE ID: Myla 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 male largely without routine medical care and not on any medications, presenting in transfer from OSH for R cerebellar IPH and intraventricular extension. S/p R EVD placement for hydrocephalous HD# 8 POD # INTERVAL HX/ROS: Remains extubated Neuro stable Failed flat trial again for CTH MEDICATIONS: Scheduled Meds: QUEtiapine 12.5 mg Per NG tube BID dilTIAZem 120 mg Per NG tube Q6H YUSUF carvediloL 12.5 mg Per NG tube BID tamsulosin 0.4 mg Oral Daily furosemide 40 mg Intravenous Q6H polyethylene glycoL (MIRALAX) oral powder 17 g Oral Daily sodium chloride 4 mL Nebulization Q4H heparin (porcine) 5,000 Units Subcutaneous Q8H YUSUF lisinopriL 40 mg Per NG tube Daily lidocaine 1 patch Transdermal Q24H camphor-methyl salicyl-menthoL Topical (Top) BID insulin lispro 1-6 Units Subcutaneous Q4H YUSUF senna-docusate 2 tablet Per NG tube BID thiamine 100 mg Intravenous Daily folic acid 1,000 mcg Per NG tube Daily multivitamin with minerals 1 tablet Per NG tube Daily Continuous Infusions: tube feeding diet 1,300 mL Per NG tube Continuous ### esmoloL (Brevibloc) (10 mg/mL) in sterile water 250 mL infusion 0-200 mcg/kg/min Intravenous Continuous ### clevidipine (Cleviprex) (0.5 mg/mL) infusion 1-16 mg/hr Intravenous Continuous ### dexmedeTOMIDine (Precedex) (4 mcg/mL) in sodium chloride 0.9% 100 mL infusion 0- 1.7 mcg/kg/hr (Adjusted) Intravenous Continuous ### PRN Meds: QUEtiapine, potassium chloride in water OR potassium chloride in water OR potassium chloride in water, LORazepam OR LORazepam OR LORazepam OR LORazepam OR LORazepam OR LORazepam OR LORazepam OR LORazepam OR LORazepam, fentaNYL (PF), acetaminophen, labetaloL, enalaprilat, bisacodyL, magnesium hydroxide, glucose 40% oral geL OR dextrose OR glucagon EXAM: Vitals: Temp: [36.6 ??C (97.9 ??F)-37.6 ??C (99.6 ??F)] Heart Rate: [53-83] Resp: [16-30] BP: (102-126)/(51-60) SpO2: [92 %-100 %] Heart Rate from SpO2: [53 bpm-73 bpm] BMI: Weight: (S) 121.8 kg (268 lb 8.3 oz) (04/26/23 0300) I/O: I/O last 3 completed shifts: In: 9248 [P.O.:30; I.V.:6497.1; NG/GT:2470.8] Out: 5857 [Urine:5345; Other:512] EVD @ 20H2O =261cc output, ICP 15-23 (nonsustained) GEN: NEURO:GCS [id number] Ox0 Does not participate in EOM exam pupils 5mm and reactive No facial asymmetry Very [place] [employer]: RUE:Loc LUE: Loc RLE: withdraw LLE: withdraw LABS: Recent Labs 04/26/23 0020 04/25/23 0110 04/24/23 0020 WBC 6.5 6.8 7.7 HGB 12.2* 12.3* 12.3* PLATELET 186 184 181 Recent Labs 04/26/23 0020 04/25/23 1839 04/25/23 1221 04/25/23 0110 04/24/23 0020 NA 134* 131* 133* 136 139 K 4.2 4.0 3.9 4.1 4.5 CL 103 102 102 105 107 CO2 23 22 22 23 21* BUN 24* -- -- 17 24* CREATININE 1.07 -- -- 0.93 0.93 No results for input(s): PT, INR in the last 72 hours. IMAGING: -None new Assessment: Myla 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 male largely without routine medical care and not on any medications, presenting in transfer from OSH for R cerebellar IPH and intraventricular extension. S/p R EVD placement for hydrocephalus. Doing well from neurologic standpoint, MRI done with no evidence of mass lesion. Hemorrhagic strokeworkup per [facility]/Neurology. Problem List: IPH IVH Hydrocephalous Plan: - Q1HNC - Pain control - Imaging: CTH when able to assess hemorrhage burden - SBP<160 - Monitor EVD/ICP per protocol, open at 20, - DVT ppx: SCDs, Ok SQH. Hold ASA for now - Current Diet: Sips and Chips (Give Meds) - Further care per [facility] PLEASE PAGE [phone] WITH QUESTIONS Active Hospital Problems Diagnosis ICH (intracerebral hemorrhage) Resolved Hospital Problems No resolved problems to display. There are no active non-hospital problems to display for this patient. Royal Rothman MD 04/26/2023 Associated attestation - Nayana Barker MD - 05/03/2023 4:44 PM EDT I was the attending physician supervising the resident in the above care. For the purposes of billing, the resident provided the care. * Eliana Townsend RN - 04/25/2023 6:42 PM EDT OUTCOME EVALUATION NOTE: OUTCOME SUMMARY: Pt currently oriented to self only, follows commands. EVD in place @ [id number], with pink drainage. Precedex currently at 1.7mcg/kg/hr, Fent 75mcg IV push given x 1. Pt on 1L NC. Pt on NSR with 1 degree heart block, on Cleviprex 16mg/hr, Esmolol 200mcg/hr. Last BM 04/22/23.Re[address] in place with AUOP. Lasix 40mg given x 2. PLAN MOVING FORWARD: VS q 1 Neuro checks q 4 Neurovascular checks q 4H SBP goal <120 HR goal<60 Lytes q 6H Problem: Restraint, Nonbehavioral (Nonviolent) Goal: Discontinuation Criteria Achieved Outcome: Ongoing (Interventions Implemented as Appropriate) Problem: Adjustment to Illness (Stroke, Hemorrhagic) Goal: Optimal Coping Outcome: Ongoing (Interventions Implemented as Appropriate) Problem: Bowel Elimination Impaired (Stroke, Hemorrhagic) Goal: Effective Bowel Elimination Outcome: Ongoing (Interventions Implemented as Appropriate) Problem: Cerebral Tissue Perfusion (Stroke, Hemorrhagic) Goal: Optimal Cerebral Tissue Perfusion Outcome: Ongoing (Interventions Implemented as Appropriate) Problem: Cognitive Impairment (Stroke, Hemorrhagic) Goal: Optimal Cognitive Function Outcome: Ongoing (Interventions Implemented as Appropriate) Problem: Communication Impairment (Stroke, Hemorrhagic) Goal: Effective Communication Skills Outcome: Ongoing (Interventions Implemented as Appropriate) Problem: Functional Ability Impaired (Stroke, Hemorrhagic) Goal: Optimal Functional Ability Outcome: Ongoing (Interventions Implemented as Appropriate) Problem: Pain (Stroke, Hemorrhagic) Goal: Acceptable Pain Control Outcome: Ongoing (Interventions Implemented as Appropriate) Problem: Respiratory Compromise (Stroke, Hemorrhagic) Goal: Effective Oxygenation and Ventilation Outcome: Ongoing (Interventions Implemented as Appropriate) Problem: Sensorimotor Impairment (Stroke, Hemorrhagic) Goal: Improved Sensorimotor Function Outcome: Ongoing (Interventions Implemented as Appropriate) Problem: Swallowing Impairment (Stroke, Hemorrhagic) Goal: Oral Intake without Aspiration Outcome: Ongoing (Interventions Implemented as Appropriate) Problem: Urinary Elimination Impaired (Stroke, Hemorrhagic) Goal: Effective Urinary Elimination Outcome: Ongoing (Interventions Implemented as Appropriate) Problem: Fall Injury Risk Goal: Absence of Fall and Fall-Related Injury Outcome: Ongoing (Interventions Implemented as Appropriate) Problem: Adult Inpatient Plan of Care Goal: Plan of Care Review Outcome: Ongoing (Interventions Implemented as Appropriate) Goal: Patient-Specific Goal (Individualized) Outcome: Ongoing (Interventions Implemented as Appropriate) Goal: Absence of Hospital-Acquired Illness or Injury Outcome: Ongoing (Interventions Implemented as Appropriate) Goal: Optimal Comfort and Wellbeing Outcome: Ongoing (Interventions Implemented as Appropriate) Goal: Readiness for Transition of Care Outcome: Ongoing (Interventions Implemented as Appropriate) * Tiarra Vasquez SLP - 04/25/2023 2:17 PM EDT Speech Therapy Note Patient Profile: Myla 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 He was intubated at OSH for airway protection given worsening somnolence and transferred to [facility] on 04/18/2023. Patient was extubated on 04/18 and then re-intubated later that day for hypoxic respiratory failure with secretion involvement (extubated successfully on 04/21; 4 days total). TREASURY CONSULTANT has been following since 04/22 for cognition and dysphagia management. Interval History: EVD clamp trial failed Somnolent this morning Recent Imaging: No new imaging on file. Subjective: Patient was lethargic but participated for approximately 20 minutes with consistent encouragement before falling asleep. Objective: Patient seen for dysphagia management and demonstrated the following: Pain: Reports headache Respiratory Status: Nasal canula 1 L/min, satting 93-96% Current Diet: Sips and Chips (Give Meds) Feeding / Oral Care Status: Patient is dependent due to a combination of post- stroke weakness, generalized deconditioning, and altered mental status requiring bilateral wrist restraints. He toleratedfeeding attempts well today. Cognitive-Linguistic Status: Lethargic Reduced attention span Intermittently frustrated but easily redirected Minimal communication attempts Command Following: Unable to / difficult to assess at this time due to lethargy Positioning: HOB at 50 degrees (RN adjusted EVD), listing to the right requiring frequent repositioning Oral Motor Examination: Unable to assess due to limited command following. Suspect generalized weakness based on overall presentation. Provided oral care for removal of thick secretions from the anterior oral cavity, tongue, and palate. Bolus Presentations: Ice chips x3 Water via straw x3 Oral Preparatory Phase Mastication: Minimal attempts with ice chips Oral transit: Sluggish and disorganized with frequent pauses Bolus cohesion: Reduced Oral containment: Reduced with right-sided anterior loss of water Oral stasis: Some pooling in the R buccal cavity which cleared with suction Pharyngeal Phase Swallow initiation: Sluggish, delay suspected Vocal quality change: Briefly wet following coughing episode Cough / throat clear: Cough x1 with water Pt complaint of food getting stuck: N/A Fatigue across trials: Yes Respiratory rate and respiratory swallow pattern: Unlabored and coordinated with slow rate Esophageal Observations Unable to comment meaningfully with limited trials Education: Discussed effects of weakness, sedation, and altered mental status on swallow function with patient's , Gina, who verbalized understanding. Reviewed plan for continued reassessment and potential for diet advancement as tolerated. Patient status and swallow recommendations were discussed with nursing. Assessment: Myla was seen today for cognition and dysphagia management. He continues to present with altered mental status characterized by fluctuating arousal, inattention, disorientation, and poorinsight into his functional limitations. Limited oral motor examination revealed a moderate amount of dried secretions within the oral cavity which required moistening to clear. PO trials were limited to single ice chips and small sips of water due to lethargy. Myla presented with sluggish and disorganized oral manipulation, reduced oral containment, and inconsistent signs of aspiration with water. He seemed to tolerate ice chips well from a respiratory standpoint. Suspect dysphagia is currently multifactorial in the setting of post-stroke weakness, generalized deconditioning, altered mental status, and potentially delirium, and will likely continue to evolve with progression of neurological symptoms. For now, recommend continuing sips and chips when patient is alert and accepting with consistent use of aspiration precautions below. Myla will continue to require alternative nutrition via DHT. We will continue to follow for frequent reassessment. Diagnosis: Oral and suspected pharyngeal dysphagia 2/2 post-stroke weakness, generalized deconditioning, and altered mental status Recommendations: Diet: Sips / chips (only when alert and accepting) PO Medications: IV or other alternative means only Aspiration Precautions: Sit upright for PO intake Small sips, single ice chips Excellent oral care to reduce risk of aspiration pneumonia Delirium Precautions: Orientation: Provide visual and hearing aids Utilize cues such as calendars and clocks Encourage communication and reorient patient repeatedly Have familiar objects from patient's home in room Attempt consistency in nursing staff Allow television during the day with daily news Environment: Sleep hygiene (dim light at nighttime, bright during the day) Limit excess noise (staff, equipment, visitors at night) Ambulate or mobilize patient early and often Speech Therapy Goals: Pt will tolerate least restrictive diet without further respiratory decompensation. Caregiver will be independent with aspiration precautions. Pt will maintain hydration / nutrition with optimal safety and efficiency. Caregiver will follow anti-delirium precautions with assist from staff as needed. Plan: Therapy Frequency (TREASURY CONSULTANT Eval): 3-5 times/wk Patient's is in agreement with the plan of care. Total Minutes (Speech Language Pathology): 25 Tiarra Vasquez MS, [facility]-TREASURY CONSULTANT Speech-Language Pathologist Inpatient Rehabilitation Pager # [phone] * Georges Jacob MD - 04/25/2023 11:04 AM EDT NEUROCRITICAL CARE PROGRESS NOTE Date of Admission: 04/18/2023 6:34 AM LOS: 7 ICU LOS: 7d 4h 24 Hour Events: Net + 2.5 L/day EVD clamp trial failed Active Medications: tube feeding diet 65 mL/hr at 04/25/23 0945 esmoloL 200 mcg/kg/min (04/25/23 1043) clevidipine 4 mg/hr (04/25/23 1043) dexmedeTOMIDine 0.8 mcg/kg/hr (04/25/23 1054) QUEtiapine 12.5 mg Per NG tube BID dilTIAZem 120 mg Per NG tube Q6H YUSUF polyethylene glycoL (MIRALAX) oral powder 17 g Oral Daily carvediloL 6.25 mg Per NG tube BID sodium chloride 4 mL Nebulization Q4H heparin (porcine) 5,000 Units Subcutaneous Q8H YUSUF lisinopriL 40 mg Per NG tube Daily lidocaine 1 patch Transdermal Q24H camphor-methyl salicyl-menthoL Topical (Top) BID insulin lispro 1-6 Units Subcutaneous Q4H YUSUF senna-docusate 2 tablet Per NG tube BID thiamine 100 mg Intravenous Daily folic acid 1,000 mcg Per NG tube Daily multivitamin with minerals 1 tablet Per NG tube Daily QUEtiapine, potassium chloride in water OR potassium chloride in water OR potassium chloride in water, LORazepam OR LORazepam OR LORazepam OR LORazepam OR LORazepam OR LORazepam OR LORazepam OR LORazepam OR LORazepam, fentaNYL (PF), acetaminophen, labetaloL, e nalaprilat, bisacodyL, magnesium hydroxide, glucose 40% oral geL OR dextrose OR glucagon Vitals: Vital Sign Ranges: Last value Range last 24 hrs Temperature Temp: 37.1 ??C (98.8 ??F) Temp: [36.8 ??C (98.2 ??F)-37.2 ??C (98.9 ??F)] Heart Rate Heart Rate: 61 Heart Rate: [57-69] Blood Pressure BP: 111/58 BP: (110-125)/(58-67) Respiratory Rate Resp: 23 Resp: [19-33] SpO2 SpO2: 94 % SpO2: [90 %-99 %] Art BP BP (Arterial Line): 112/65 BP (Arterial Line): (89-133)/(54-81) Intake/Output: I/O 04/21 0704/22 0704/22 0704/23 0704/23 0701 04/24 0704/24 0704/25 0700 P.O. 0 0 30 I.V. (mL/kg/hr) 3912.2 (1.5) 5633 (2.1) 4586.2 (1.6) 462.5 (0.9) Blood 0 NG/GT 072 787 8723.8 162 IV Piggyback Irrigation 30 160 100 Total Intake(mL/kg) 4262.2 (38.1) 6032 (53.9) 6576.1 (54.8) 624.5 (5.2) Urine (mL/kg/hr) 3995 (1.5) 1680 (0.6) 3695 (1.3) 550 (1.1) Emesis/NG output 0 0 0 0 Other 293 254 367 45 Stool 0 0 0 0 Total Output(mL/kg) 4288 (38.3) 1934 (17.3) 4062 (33.9) 595 (5) Net -25.8 +4098 +2514.1 +29.5 Unmeasured Urine Occurrence 0 x Stool Occurrence 1 x 0 x 0 x 0 x Emesis Occurrence 0 x 0 x 0 x 0 x Lines/Drains/Airways: PICC Line 04/20/23 1410 Triple Lumen 5 Fr brachial vein, right (Active) External Catheter Length (cm) 0 04/20/23 1415 Indication/Daily Review of Necessity Medications known to cause phlebitis (vasopressors, concentrated electrolytes, TPN, chemotherapy) 04/25/23 0600 Site Preparation/Maintenance dressing: dry and intact 04/25/23 06 Dressing change due 04/27/23 04/25/23 0000 Needleless Connector change due 04/24/23 04/24/23 2100 Securement catheter stabilization device, secured with 04/25/23 0600 Distal (Foster) Patency/Maintenance flushed without difficulty 04/25/23 0400 Medial (White) Patency/Maintenance flushed without difficulty 04/25/23 0400 Proximal (Red) Patency/Maintenance infusing 04/25/23599 Phlebitis 0-->no symptoms 04/25/23599 Infiltration 0-->no symptoms 04/25/23599 Site Signs/Symptoms no redness;no swelling;no warmth;no pain 04/25/23599 Arm Circumference [place] Between Insertion & Axilla (cm) 37 04/20/23 1415 PIV 04/19/23 1416 20 gauge;1.75 in length cephalic vein (lateral side of arm), left (Active) Indication/Daily Review of Necessity fluid therapy intermittent;medication therapy continuous 04/24/232099 Site Preparation/Maintenance dressing: dry and intact 04/25/23599 Securement catheter stabilization device, secured with 04/25/23599 Patency/Maintenance flushed without difficulty 04/25/23599 Dressing change due 04/26/23 04/22/231999 Phlebitis 0-->no symptoms 04/25/23599 Infiltration 0-->no symptoms 04/25/23599 Site Signs/Symptoms no redness;no swelling;no warmth;no pain 04/25/23599 Urethral Catheter 04/24/23 140 (Active) Indication/Necessity Acute urinary retention or obstruction;Q1-2hr UOP in ICU patient without alternative 04/25/23599 Securement secured to upper leg with adhesive device 04/25/23599 Maintenance Collection bag maintained below the bladder 04/25/23599 Foreskin circumcised 04/24/23 1401 Tolerance no signs/symptoms of discomfort 04/24/23 1401 Urine Characteristics clear yellow 04/25/23 0945 Urine Output (mL) 325 04/25/23 0945 Naso/Oral Tube 04/23/23 1559 small bore weighted (Dobhoff) right nostril (Active) Placement Check Methods distal length tube measured 04/24/23799 Catheter Depth (cm) 70 cm 04/25/23599 Tolerance no adverse signs/symptoms 04/25/23599 Securement taped to nostril center 04/25/23599 Clamp Status/Tolerance unclamped;no abdominal discomfort;no emesis;no nausea;no residual;no restlessness 04/25/23599 Insertion Site Appearance no tenderness;no redness 03/18/24 0800 Flush/Irrigation flushed with;water 04/24/23 1736 Tubing Change 04/24/23 04/24/23 2200 Irrigation/Flush (mL) 50 (mL) 04/24/23 1736 Tube Intake (mL) 65 04/25/23 0700 Net Naso/Oral Volume (mL) 65 (mL) 04/25/23 0700 EVD (External Ventricular Drain) 04/18/23 0730 (Active) Distance Above Site (cm H2O) 0.2 m (7.87) 04/25/23 0945 Ventricular Drainage pink 04/25/23 0945 Insertion Site dressing dry and intact 04/25/23944 Insertion Site Drainage none 04/25/23944 Interventions open 04/25/23944 General Output (mL) 31 04/25/23 0945 Arterial Line 04/22/23 2100 radial artery, right (Active) Daily Review Of Necessity completed 04/24/23 2100 Dressing dressing dry and intact 04/25/23 06 Arterial Catheter Securement arm board;catheter securement device utilized 04/25/23 06 Lumen Patency/Care flushed without difficulty;blood return present 04/24/23 220 Waveform normal 04/25/23 06 Phlebitis 0-->no symptoms 04/25/23599 Infiltration 0-->no symptoms 04/25/23 06 Site Signs/Symptoms no redness;no swelling;no warmth;no pain 04/25/23 06 Pressure Catheter Interventions line leveled/zeroed;system flushed 04/24/23 0800 Labs: No results found for: PHART, PO2ART, SBH0BLC Recent Labs 04/25/23 0110 WBC 6.8 RBC 3.95* HGB 12.3* HCT 37.0* MCV 93.7* MCH 31.1 MCHC 33.2 PLATELET 184 RDWCV 13.0 Recent Labs 04/25/23 0110 NA 136 K 4.1 CL 105 CO2 23 BUN 17 CREATININE 0.93 GLUCOSE 142 Imaging: Physical Exam: NAD, more somnolent than yesterday, awakens to voice but quickly drifts back to sleep Anicteric/noninjected, gaze midline, will not follow for EOMs Dry MM CTAB RRR no mgr Soft, distended, nontender 1+ BLE pulses, 1+ BLE edema Neuro: FC BUE, sluggish BLE w/d briskly Not alert enough for ataxia testing ASSESSMENT & PLAN: 67M R cerebellar hemorrhage with IVH and Type B aortic dissection Neuro: cerebellar hemorrhage s/p EVD - EVD @ 20 - CIWA/ativan prn w/d - precedex 1.7 - seroquel 12.5 bid CV: Type B aortic dissection - HR < 60 on esmolol - add enteral dilt 120 q6h limit total volume load of esmolol in - SBP < 120 on cleviprex - con't carvedilol 12.5, lisinopril 40 - vascular surgery following - repeat imaging in 3 months per vascular / already ordered by vascular - ASA once EVD removed Pulm: 1 L NC requirement likely residual atelectasis vs mild volume overload; wean as tolerated FEN/Renal: - TF - rebolledo for retention 04/23 - diuresis for goal net even (trail 40 q6h and f/u I&Os) GI: no acute ID: no acute Endo: SSI until TF at goal Heme: no acute PPx: SQH Tubes/Lines/Drains: a-line 04/21, PICC 04/19 Code Status: Attempt Cardiopulmonary Resuscitation - Inpatient Dispo: ICU for EVD wean and hemodynamic management //////////////////////////////////////////////////////////////////////////////// //// Attestation: IS PATIENT CRITICALLY ILL ? Is there a high potential of sudden, clinically significant, or life threatening deterioration? YES Is there a need for direct personal assessment and management to treat/prevent multiple vital organfailure/deterioration? YES If this patient is not critically ill, the reason for continued hospitalization is n/a. PATIENT IS CRITICALLY ILL WITH THESE DIAGNOSES BEING MANAGED BY [facility] TEAM: ICH Obstructive hydrocephalus Type B aortic dissection Volume overload I personally performed 30 minutes of aggregate critical care time exclusive of procedures and teaching. This includes time spent during direct patient evaluation and reassessment, interpreting diagnostic tests, directing life and/or organ supporting interventions and documentation on the unit. * Maria Pineda - 04/25/2023 11:01 AM EDT Annette Encounter Note Patient Name: Myla Acosta : [id number] MR#: [id number] Admit Date: 04/18/2023 6:34 AM Hospital Day 7 days Narrative: Visited with patient's Gina on unit rounds. The patient was sleeping. Assessment: The patient's is doing the best she can to cope with the situation. She said that she feels better today than she did yesterday. They have been for 44 years and last night was the first time she has been alone. She said that patient has not taken care of his health and she plans to be insistent about this in the future. 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 They have three children, two of whom live in the area, and many friends who are supportive. Gina said they have joy--they were Anabaptist--and many people are praying for them. Intervention and Outcome: Provided emotional/spiritual support. Explored what helps the patient's cope. Acknowledged thedifficulty of the situation and how this came out of nowhere. Told her I would keep them in my prayers. The patient's thanked me for coming by. Follow-up: Will plan to follow up for continued support. Time in Direct Care: 15 minutes. Maria Pineda 04/25/2023 * Tiarra Vasquez SLP - 04/25/2023 10:23 AM EDT Speech Pathology Contact Note Chart reviewed. Patient was lethargic this morning due to recent adjustments in sedating medications. We will plan to follow up this afternoon in the hopes that patient will be more awake and able toparticipate. Please secure chat with questions, thanks! Tiarra Vasquez, MS, CCC-TREASURY CONSULTANT Speech-Language Pathologist Inpatient Rehabilitation Pager # [phone] * Royal Rothman MD - 04/25/2023 6:39 AM EDT NEUROSURGERY PROGRESS NOTE ID: Myla 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 male largely without routine medical care and not on any medications, presenting in transfer from OSH for R cerebellar IPH and intraventricular extension. S/p R EVD placement for hydrocephalous HD# 7 POD # INTERVAL HX/ROS: Remains extubated Neuro stable Failed flat trial for CTH MEDICATIONS: Scheduled Meds: dilTIAZem 90 mg Per NG tube Q6H YUSUF polyethylene glycoL (MIRALAX) oral powder 17 g Oral Daily carvediloL 6.25 mg Per NG tube BID sodium chloride 4 mL Nebulization Q4H heparin (porcine) 5,000 Units Subcutaneous Q8H YUSUF lisinopriL 40 mg Per NG tube Daily lidocaine 1 patch Transdermal Q24H camphor-methyl salicyl-menthoL Topical (Top) BID insulin lispro 1-6 Units Subcutaneous Q4H YUSUF senna-docusate 2 tablet Per NG tube BID thiamine 100 mg Intravenous Daily folic acid 1,000 mcg Per NG tube Daily multivitamin with minerals 1 tablet Per NG tube Daily Continuous Infusions: tube feeding diet 1,300 mL Per NG tube Continuous ### esmoloL (Brevibloc) (10 mg/mL) in sterile water 250 mL infusion 0-200 mcg/kg/min Intravenous Continuous ### clevidipine (Cleviprex) (0.5 mg/mL) infusion 1-16 mg/hr Intravenous Continuous ### dexmedeTOMIDine (Precedex) (4 mcg/mL) in sodium chloride 0.9% 100 mL infusion 0- 1.7 mcg/kg/hr (Adjusted) Intravenous Continuous ### PRN Meds: QUEtiapine, potassium chloride in water OR potassium chloride in water OR potassium chloride in water, LORazepam OR LORazepam OR LORazepam OR LORazepam OR LORazepam OR LORazepam OR LORazepam OR LORazepam OR LORazepam, fentaNYL (PF), acetaminophen, labetaloL, enalaprilat, bisacodyL, magnesium hydroxide, glucose 40% oral geL OR dextrose OR glucagon EXAM: Vitals: Temp: [36.6 ??C (97.8 ??F)-37.2 ??C (98.9 ??F)] Heart Rate: [57-69] Resp: [17-33] BP: (110-125)/(58-67) SpO2: [90 %-99 %] Heart Rate from SpO2: [57 bpm-69 bpm] BMI: Weight: 119.9 kg (264 lb 5.3 oz) (04/25/23 0600) I/O: I/O last 3 completed shifts: In: 8637.4 [P.O.:30; I.V.:7692.6; NG/GT:654.8] Out: 4046 [Urine:3605; Other:441] EVD @ 20H2O =342cc output, ICP 16-22 GEN: NEURO:GCS E2V1M6 Ox0 Does not aprticipate in EOM exam pupils 5mm and reactive No facial asymmetry Very [place] [employer]OR: RUE:Loc LUE: Loc RLE: withdraw LLE: withdraw LABS: Recent Labs 04/25/23 0110 04/24/23 0020 04/23/23 0024 WBC 6.8 7.7 8.4 HGB 12.3* 12.3* 13.0* PLATELET 184 181 190 Recent Labs 04/25/23 0110 04/24/23 0020 04/23/23 0024 NA 136 139 142 K 4.1 4.5 3.8 CL 105 107 106 CO2 23 21* 25 BUN 17 24* 29* CREATININE 0.93 0.93 1.04 Recent Labs 04/23/23 0024 PT 12.7* INR 1.1 IMAGING: -None new Assessment: Myla 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 male largely without routine medical care and not on any medications, presenting in transfer from OSH for R cerebellar IPH and intraventricular extension. S/p R EVD placement for hydrocephalus. Doing well from neurologic standpoint, MRI done with no evidence of mass lesion. Hemorrhagic strokeworkup per [facility]/Neurology. Problem List: IPH IVH Hydrocephalous Plan: - Q1HNC - Pain control - Imaging: CTH when able to assess hemorrhage burden - SBP<160 - Monitor EVD/ICP per protocol, open at 20, - DVT ppx: SCDs, Ok SQH. Hold ASA for now - Current Diet: Sips and Chips (Give Meds) - Further care per [facility] PLEASE PAGE [phone] WITH QUESTIONS Active Hospital Problems Diagnosis ICH (intracerebral hemorrhage) Resolved Hospital Problems No resolved problems to display. There are no active non-hospital problems to display for this patient. Royal Rothman MD 04/25/2023 * Eliana Townsend RN - 04/24/2023 6:32 PM EDT OUTCOME EVALUATION NOTE: OUTCOME SUMMARY: Pt currently oriented to self only, follows commands. EVD in place @ 68jbS2P, with pink drainage, Precedex at 1.4mcg/kg/hr. Pt on 2L NC. Pt on NSR with 1 degree heart block, on Cleviprex 2mg/hr, Esmolol 200mcg/hr. Last BM 04/22/23. Reinserted rebolledo around 1400 for urinary retention, Lasix 20mg givenx 1. PLAN MOVING FORWARD: VS q 1 Neuro checks q 2 Neurovascular checks q 4H SBP goal <120 HR goal<60 Increase TF at 2100 CPG GOAL OUTCOME EVALUATION: roblem: Restraint, Nonbehavioral (Nonviolent) Goal: Discontinuation Criteria Achieved Outcome: Ongoing (Interventions Implemented as Appropriate) Problem: Adjustment to Illness (Stroke, Hemorrhagic) Goal: Optimal Coping Outcome: Ongoing (Interventions Implemented as Appropriate) Problem: Bowel Elimination Impaired (Stroke, Hemorrhagic) Goal: Effective Bowel Elimination Outcome: Ongoing (Interventions Implemented as Appropriate) Problem: Cerebral Tissue Perfusion (Stroke, Hemorrhagic) Goal: Optimal Cerebral Tissue Perfusion Outcome: Ongoing (Interventions Implemented as Appropriate) Problem: Cognitive Impairment (Stroke, Hemorrhagic) Goal: Optimal Cognitive Function Outcome: Ongoing (Interventions Implemented as Appropriate) Problem: Communication Impairment (Stroke, Hemorrhagic) Goal: Effective Communication Skills Outcome: Ongoing (Interventions Implemented as Appropriate) Problem: Functional Ability Impaired (Stroke, Hemorrhagic) Goal: Optimal Functional Ability Outcome: Ongoing (Interventions Implemented as Appropriate) Problem: Pain (Stroke, Hemorrhagic) Goal: Acceptable Pain Control Outcome: Ongoing (Interventions Implemented as Appropriate) Problem: Respiratory Compromise (Stroke, Hemorrhagic) Goal: Effective Oxygenation and Ventilation Outcome: Ongoing (Interventions Implemented as Appropriate) Problem: Sensorimotor Impairment (Stroke, Hemorrhagic) Goal: Improved Sensorimotor Function Outcome: Ongoing (Interventions Implemented as Appropriate) Problem: Swallowing Impairment (Stroke, Hemorrhagic) Goal: Oral Intake without Aspiration Outcome: Ongoing (Interventions Implemented as Appropriate) Problem: Urinary Elimination Impaired (Stroke, Hemorrhagic) Goal: Effective Urinary Elimination Outcome: Ongoing (Interventions Implemented as Appropriate) Problem: Fall Injury Risk Goal: Absence of Fall and Fall-Related Injury Outcome: Ongoing (Interventions Implemented as Appropriate) Problem: Adult Inpatient Plan of Care Goal: Plan of Care Review Outcome: Ongoing (Interventions Implemented as Appropriate) Goal: Patient-Specific Goal (Individualized) Outcome: Ongoing (Interventions Implemented as Appropriate) Goal: Absence of Hospital-Acquired Illness or Injury Outcome: Ongoing (Interventions Implemented as Appropriate) Goal: Optimal Comfort and Wellbeing Outcome: Ongoing (Interventions Implemented as Appropriate) Goal: Readiness for Transition of Care Outcome: Ongoing (Interventions Implemented as Appropriate) * Zarina Herrera OT - 04/24/2023 1:58 PM EDT Occupational Therapy Evaluation Patient profile: Myla 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 male admitted on 04/18/2023 for R cerebellar hemorrhage with IVH. EVD was placed for hydrocephalus. Pt was intubated at OSH for airway protection. Imaging of carotids and [place] reveal unexpected finding of type B aortic dissection. CTA CA with type B dissection extending from subclav to external iliac. Vascular surgery was consulted. Pt wasextubated on 04/23, but has been on the CIWA protocol. No past medical history on file. No past surgical history on file. Social History: Patient lives in [place], [place] with his , Tiffany, who still works. They have 2 children 10 and 30 mins away. Home Setup: 1 PATRICIA, 1 level, small thressholds in the house, has a large walk-in shower w/ no seat but grab bar. Per his , he built the house. DME: grab bar, Baseline ADL/Mobility: Pt was independent w/ ADL's. He was somewhat limited because of arthritis inhis hips, but he ambulated w/o a device and his denies h/o falls. He was driving. They share cooking, but Tiffany does most other solderer electronic. 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 He enjoys woodworking and puttering. Precautions/Special Considerations: at risk to fall, EVD (RN must clamp EVD to change position of head, can be clamped x15 mins), DHT, SBP< 120, sips n chips, HR<60, R UE PICC, R radial a-line,Sp02>92%, supplemental 02 Subjective: Will you stop? Objective: Seen today for OT evaluation in collaboration with PT. Pt's Tiffany was present. 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 Left inattention/right gaze preference; able to accurately ID # fingers to the R and midline, butnot to the L this session Able to recognize his Communication: dysarthria, garbled, unclear consistent understanding Range of motion, strength, coordination: Hand dominance: left UE status: moving UE's spontaneously, but inconsistently to command, antigravity movement observed bilaterally, but poor sustained attention LE limitations: moving spontaneously and inconsistently to command, appears grossly intact but may be symmetrically weak Sensation: unable to assess Activities of Daily Living: Self-feeding: sips and chips-not obseved this session (too lethargic) Grooming: max A, poor attention to task Dressing: dependent Bathing: dependent Toileting: dependent Functional Mobility: RN clamped EVD Gradually progressed to upright position w/ bed chair Pulled forward w/ max A x 2 (able to welding tester bed rails briefly) Allowed for active and AAROM of UE's and LE's Wrist restraints applied at end of session. Pt was left in partial upright chair position. RN re-opened the EVD Balance: Sitting balance: poor Standing balance:unable Vitals: HR: 62, Sp02: 97% on 2 L NC, BP: 121/66 (81), 112/63 (79) Pain: reports hip pain from arthrits, difficult to assess this session Education: patient and his were educated on Role of occupational therapy/rehabilitation, Exercise, Positioning, Safety, Precautions/Protocol, Functional Mobility, Balance, Recommendations, and Discharge planning and pt needs reinforcement. His verbalized understanding. Patient status, treatment, and mobility recommendations discussed with nursing. Assessment: Pt was seen for occupational therapy evaluation. Myla Acosta presents with the following performance skill deficits and client factors: decreased activity tolerance, decreased flexibility/ROM, decreased strength, decreased sitting balance, hemodynamic instability with tight parameters, visual deficits with poor visual attention/fixation, cognitive deficits with poor sustained attention and impaired ability to consistently follow commands, communication deficits, decreased motorcontrol, decreased postural control, and compromised mobility status. Pt was receiving Precedex forintermittent agitation/restlessness. Progressed to upright position and attempted to engage in functional tasks and movement, though was limited by tolerance, participation and attention. He is moving all extremities antigravity, though does appear diffusely weak with poor sustained muscular endurance. At this time, anticipate he will benefit from rehab when medically cleared. Pt will benefit from further inpatient OT interventions to address performance deficits and maximize participation and independence with occupations of daily living. Equipment Recommendations: Equipment Needs Upon Discharge (OT): to be determined Anticipated Discharge Disposition (OT): acute rehabilitation facility EP Level 2: Bed-Chair position, Mechanically lift to chair, Participate in self care Other Recommendations: Utilize upright chair position using bed features or transfer to recliner chair as appropriate withmechanical lift. Encourage participation in ADL's by providing set up A on tray table and physical assist only as needed. Other Recommendations: Social Work consult-support for his Goals: To be achieved within 2 weeks, by 05/08/23: Patient will consistently follow simple one-step commands. Patient will consistently be oriented x 4 and CAM (-). Patient will be complete grooming tasks in supported sitting w/ min A. Patient will be mod A with LB dressing. Patient will be mod A toileting. Patient will be mod A w/ a sponge bath in supported sitting. Patient will participate in further vision evaluation. Plan: OT: Therapy Frequency (OT): 2-4 times/wk Planned OT interventions: Role of occupational therapy/rehabilitation, Transfers, ADL, Exercise, Breathing exercises, Positioning, Safety, Precautions/Protocol, Functional Mobility, Activity pacing/Energy conservation, Balance, Recommendations, Family training, and Discharge planning. Total Minutes, Occupational Therapy: 27 (initial evaluation, 13:58-14:25) OT Evaluation Code Rationale: Diagnosis & Pertinent Co-Morbidities affecting Plan of Care: see PMHx Occupational Profile & Client History: Brief Expanded Extensive x Assessment of Occupational Performance: 1-3 performance deficits 3-5 performance deficits 5 + performance deficits x Clinical Decision Making: Low Moderate High x Clinical decision making of high complexity using standardized patient assessment instrument and measurable assessment of functional outcome. Pager: [phone] ZARINA HERRERA OT 04/24/2023 Occupational Therapy Rehabilitation Department * Georges Jacob MD - 04/24/2023 10:38 AM EDT NEUROCRITICAL CARE PROGRESS NOTE Date of Admission: 04/18/2023 6:34 AM LOS: 6 ICU LOS: 6d 4h 24 Hour Events: Net + 4L yesterday EVD 20, 254/24h Denies CP, SALVADOR, n/v Active Medications: tube feeding diet 1,300 mL (04/24/23 1000) esmoloL 200 mcg/kg/min (04/24/23 0955) clevidipine 6 mg/hr (04/24/23 0952) dexmedeTOMIDine 1.7 mcg/kg/hr (04/24/23 0952) carvediloL 6.25 mg Per NG tube BID sodium chloride 4 mL Nebulization Q4H heparin (porcine) 5,000 Units Subcutaneous Q8H YUSUF lisinopriL 40 mg Per NG tube Daily amLODIPine 10 mg Per NG tube Daily lidocaine 1 patch Transdermal Q24H camphor-methyl salicyl-menthoL Topical (Top) BID insulin lispro 1-6 Units Subcutaneous Q4H YUSUF senna-docusate 2 tablet Per NG tube BID thiamine 100 mg Intravenous Daily folic acid 1,000 mcg Per NG tube Daily multivitamin with minerals 1 tablet Per NG tube Daily potassium chloride in water OR potassium chloride in water OR potassium chloride in water, LORazepam OR LORazepam OR LORazepam OR LORazepam OR LORazepam OR LORazepam OR LORazepam OR LORazepam OR LORazepam, fentaNYL (PF), acetaminophen, labetaloL, enalaprilat,bisacodyL, magnesium hydroxide, glucose 40% oral geL OR dextrose OR glucagon, polyethylene glycoL (MIRALAX) oral powder Vitals: Vital Sign Ranges: Last value Range last 24 hrs Temperature Temp: 36.6 ??C (97.8 ??F) Temp: [36.5 ??C (97.7 ??F)-37.1 ??C (98.8 ??F)] Heart Rate Heart Rate: 63 Heart Rate: [60-68] Blood Pressure BP: 115/53 BP: -- Respiratory Rate Resp: 25 Resp: [14-30] SpO2 SpO2: 93 % SpO2: [92 %-100 %] Art BP BP (Arterial Line): 113/66 BP (Arterial Line): (93-122)/(49-66) Intake/Output: I/O / 0701 /16 0700 /16 0701 / 0700 / 0701 /18 0700 /18 0701 / 0700 P.O. 0 0 0 30 I.V. (mL/kg/hr) 538.4 (0.2) 3912.2 (1.5) 5633 (2.1) 646 (1.6) Blood 0 NG/GT 1341 320 239 187.3 IV Piggyback 100 Irrigation 30 30 160 Total Intake(mL/kg) 2009.4 (17.4) 4262.2 (38.1) 6032 (53.9) 863.3 (7.7) Urine (mL/kg/hr) 3335 (1.2) 3995 (1.5) 1680 (0.6) 0 (0) Emesis/NG output 0 0 0 Other 294 293 254 54 Stool 0 0 0 Total Output(mL/kg) 3629 (31.5) 4288 (38.3) 1934 (17.3) 54 (0.5) Net -1619.6 -25.8 +4098 +809.3 Unmeasured Urine Occurrence 0 x Stool Occurrence 1 x 0 x 0 x Emesis Occurrence 0 x 0 x 0 x Lines/Drains/Airways: PICC Line 04/20/23 1410 Triple Lumen 5 Fr brachial vein, right (Active) External Catheter Length (cm) 0 04/20/23 1415 Indication/Daily Review of Necessity Inadequate peripheral IV access (see comment) 04/23/231999 Site Preparation/Maintenance dressing: dry and intact 04/24/23799 Dressing change due 04/27/23 04/23/231999 Needleless Connector change due 04/24/23 04/23/231999 Securement catheter stabilization device, secured with 04/24/23799 Distal (Foster) Patency/Maintenance flushed without difficulty;blood return, able to obtain 04/24/23 0800 Medial (White) Patency/Maintenance flushed without difficulty;blood return, able to obtain Proximal (Red) Patency/Maintenance flushed without difficulty;blood return, able to obtain [id number] Phlebitis 0-->no symptoms 04/24/23799 Infiltration 0-->no symptoms 04/24/23799 Site Signs/Symptoms no redness;no swelling;no pain 04/24/23799 Arm Circumference [place] Between Insertion & Axilla (cm) 37 04/20/23 1415 PIV 04/19/23 1416 20 gauge;1.75 in length cephalic vein (lateral side of arm), left (Active) Indication/Daily Review of Necessity medication therapy continuous 04/23/231999 Site Preparation/Maintenance dressing: dry and intact 04/24/23799 Securement catheter stabilization device, secured with 04/24/23799 Patency/Maintenance flushed without difficulty 04/24/23799 Dressing change due 04/26/23 04/22/231999 Phlebitis 0-->no symptoms 04/24/23 08 Infiltration 0-->no symptoms 04/24/23799 Site Signs/Symptoms no swelling;no redness;no warmth;no pain 03/18/24 0800 External Catheter 04/23/23 1700 (Active) Securement secured to upper leg with adhesive device 04/24/23 1000 Skin no redness;no breakdown 04/24/23 1000 Tolerance no signs/symptoms of discomfort 04/24/23 1000 Urine Output (mL) 0 04/24/23 1000 Naso/Oral Tube 04/23/23 1559 small bore weighted (Dobhoff) right nostril (Active) Placement Check Methods x-ray confirmation 04/23/231999 Catheter Depth (cm) 70 cm 04/24/23799 Tolerance no adverse signs/symptoms 04/24/23799 Securement taped to nostril center 04/24/23799 Clamp Status/Tolerance unclamped;no abdominal distention;no abdominal discomfort;no emesis 800 Insertion Site Appearance no tenderness;no redness 04/24/23799 Flush/Irrigation flushed with;water 04/24/23799 Irrigation/Flush (mL) 30 (mL) 04/24/23 0400 Tube Intake (mL) 30 04/24/23 0955 Net Naso/Oral Volume (mL) 30 (mL) 04/24/23 0955 EVD (External Ventricular Drain) 04/18/23 0730 (Active) Distance Above Site (cm H2O) 0.2 m (7.87) 04/24/23 0952 Ventricular Drainage pink 04/24/23 0952 Insertion Site dressing dry and intact 04/24/23 0952 Insertion Site Drainage none 04/24/23 0952 Interventions open 04/24/23 0952 General Output (mL) 18 04/24/23 0952 Arterial Line 04/22/23 2100 radial artery, right (Active) Daily Review Of Necessity completed 04/24/23799 Dressing dressing dry and intact 04/24/23799 Arterial Catheter Securement arm board;catheter securement device utilized 04/24/23799 Lumen Patency/Care flushed without difficulty;blood return present 04/24/23799 Waveform normal 04/24/23799 Phlebitis 0-->no symptoms 04/24/23799 Infiltration 0-->no symptoms 04/24/23799 Site Signs/Symptoms no redness;no swelling;no pain;no palpable cord 04/24/23799 Pressure Catheter Interventions line leveled/zeroed;system flushed 04/24/23 0800 Labs: No results found for: PHART, PO2ART, UNS7IHE Recent Labs 04/24/23 0020 WBC 7.7 RBC 3.93* HGB 12.3* HCT 37.0* MCV 94.1* MCH 31.3 MCHC 33.2 PLATELET 181 RDWCV 13.2 Recent Labs 04/24/23 0020 NA 139 K 4.5 CL 107 CO2 21* BUN 24* CREATININE 0.93 GLUCOSE 124 Imaging: Physical Exam: NAD, not currently agitated PERRL, moves up and right without nystagmus, will not look to left to command or following fingers MMM CTAB RRR no mgr Soft NT mild distension NABS 1+ BLE edema Neuro: RUE severe ataxia although difficult as relatively inattentive to exam and requiring multiple prompts LUE not adequately reaching finger but smooth motions No overt motor deficits x 4 but very poor attention/effort diffusely ASSESSMENT & PLAN: 67M R cerebellar hemorrhage with IVH and Type B aortic dissection Neuro: cerebellar hemorrhage s/p EVD - EVD @ 20 - CIWA/ativan prn w/d - precedex 1.7 - seroquel trial CV: Type B aortic dissection - HR < 60 on esmolol - add enteral dilt 90 q6h limit total volume load of esmolol in - SBP < 120 on cleviprex - con't carvedilol 6.25, lisinopril 40 - vascular surgery following - ASA once EVD removed Pulm: 2 L NC requirement likely residual atelectasis vs mild volume overload; wean as tolerated FEN/Renal: - TF - bladder scan and likely will require rebolledo for retention - begin gentle diuresis GI: no acute ID: no acute Endo: SSI until TF at goal Heme: no acute PPx: SQH Tubes/Lines/Drains: a-line 04/21, PICC 04/19 Code Status: Attempt Cardiopulmonary Resuscitation - Inpatient Dispo: ICU for EVD wean and hemodynamic management //////////////////////////////////////////////////////////////////////////////// //// Attestation: IS PATIENT CRITICALLY ILL ? Is there a high potential of sudden, clinically significant, or life threatening deterioration? YES Is there a need for direct personal assessment and management to treat/prevent multiple vital organfailure/deterioration? YES If this patient is not critically ill, the reason for continued hospitalization is n/a. PATIENT IS CRITICALLY ILL WITH THESE DIAGNOSES BEING MANAGED BY [facility] TEAM: Type B aortic dissection Cerebellar IPH IVH Obstructive hydrocephalus HTN Agitation requiring sedation protocol I personally performed 35 minutes of aggregate critical care time exclusive of procedures and teaching. This includes time spent during direct patient evaluation and reassessment, interpreting diagnostic tests, directing life and/or organ supporting interventions and documentation on the unit. * Angelia Paulino, RD - 04/24/2023 9:25 AM EDT Nutrition Progress Note Myla 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 male with unknown pmhx (no PCP or listed medications) who presents asa transfer from an OSH for evaluation of a right cerebellar IPH. Now s/p R EVD placement 04/17 givenhydrocephalus. Reason for Assessment: ICU Tube Feeding, Follow-up Nutrition Recommendations: Enteral Nutrition: Goal below remains appropriate - advance to goal. Monitor BM - goal of one every 24-48 hrs while on TF - last BM 04/21 - adjust bowel meds. Peptamen AF with a goal rate of 65 ml per hour plus 0 scoops of protein powder daily. This rate is calculated to compensate for unplanned time off feedings due to potential procedures, etc. At goal, this will provide: Peptamen AF Total Volume Per Day: 1300 mL Scoops of Protein: 0 Calories per Day: 1560 Protein per Day: 99 g Free Water mL per Day: 1056 % RDI: 104 % Monitor hydration status on above TFs as they are concentrated. Pt may need additional fluids depending on IVFs, med flushes, p.o. Intake, etc. Mag and Phos with daily BMP or CMP labs; replenish as indicated. Daily weights. BG goal 140-180 in ICU. I was able to discuss plan with provider [place] [id number] team . Current Nutrition Regimen: Active Orders Diet NPO diet (Give Meds) Frequency: Effective Now Number of Occurrences: Until Specified All Active TF Orders: Tubefeeding Orders (From admission, onward) Start Dose/Rate Route Frequency Ordered Stop 04/23/232029 tube feeding diet 1,000 mL Per NG tube CONTINUOUS 04/23/231943 Average tube feeding provision over past 3 days; 580 mL vs daily goal volume of 1300 mL formula (44% of goal) Tolerance or barriers to meeting needs: Holds - constipation, extubation, etc. Assessment: Lab Results Component Value Date NA 139 04/24/2023 K 4.5 04/24/2023 CL 107 04/24/2023 CO2 21 (L) 04/24/2023 BUN 24 (H) 04/24/2023 CREATININE 0.93 04/24/2023 ESTGFR 91 04/24/2023 MAGNESIUM 0.75 04/24/2023 CALCIUM 8.4 (L) 04/24/2023 PHOS 3.0 04/24/2023 AST 28 04/23/2023 ALT 26 04/23/2023 ALKPHOS 64 04/23/2023 BILITOT 0.4 04/23/2023 BILIDIR 0.2 04/23/2023 TRIG 144 04/23/2023 HA1C 6.0 (H) 04/19/2023 Lab Results Component Value Date POCGLU 117 04/24/2023 POCGLU 122 04/24/2023 POCGLU 126 04/24/2023 POCGLU 105 04/23/2023 POCGLU 112 04/23/2023 POCGLU 119 04/23/2023 Patient Lines/Drains/Airways Status Active Nutritional LDAs Name Placement date Placement time Site Days Naso/Oral Tube 04/23/23 1559 small bore weighted (Dobhoff) right nostril 04/23/23 1559 right nostril 1 PIV 04/19/23 1416 20 gauge;1.75 in length cephalic vein (lateral side of arm), left 04/19/23 1416 -- 5 PICC Line 04/20/23 1410 Triple Lumen 5 Fr brachial vein, right 04/20/23 1410 -- 4 External Catheter 04/23/23 1700 04/23/23 1700 -- 1 EVD (External Ventricular Drain) 04/18/23 0730 04/18/23 0730 -- 6 Oxygen Therapy / Airway Device: Nasal cannula Shift Pressure Injury Prevention Occiput: No Injury Thoracic Spine: No Injury Sacral: No Injury Ischial - left: No Injury Ischial - right: No Injury Heel - left: No Injury Heel - right: No Injury Elbow - left: No Injury Elbow - right: No Injury Device Sites: A line sites - tubing, A line Board, ECG Leads, IV sites, NGT, O2 sat monitor, oxygentubing, SCD's / venodynes, wrist restraints Other Sites: IDB, EVD, Ext cath Last Bowel Movement: 04/22/23 Intake/Output Summary (Last 24 hours) at 04/24/2023 0926 Last data filed at 04/24/2023 0800 Gross per 24 hour Intake 6106.6 ml Output 1880 ml Net 4226.6 ml Relevant medications: Continuous tube feeding diet 20 mL/hr at 04/23/232029 esmoloL 200 mcg/kg/min (04/24/23 0600) clevidipine 4 mg/hr (04/24/23 0830) dexmedeTOMIDine 1.7 mcg/kg/hr (04/24/23 0817) Scheduled carvediloL 6.25 mg Per NG tube BID sodium chloride 4 mL Nebulization Q4H heparin (porcine) 5,000 Units Subcutaneous Q8H YUSUF lisinopriL 40 mg Per NG tube Daily amLODIPine 10 mg Per NG tube Daily lidocaine 1 patch Transdermal Q24H camphor-methyl salicyl-menthoL Topical (Top) BID insulin lispro 1-6 Units Subcutaneous Q4H YUSUF senna-docusate 2 tablet Per NG tube BID thiamine 100 mg Intravenous Daily folic acid 1,000 mcg Per NG tube Daily multivitamin with minerals 1 tablet Per NG tube Daily PRN potassium chloride in water OR potassium chloride in water OR potassium chloride in water, LORazepam OR LORazepam OR LORazepam OR LORazepam OR LORazepam OR LORazepam OR LORazepam OR LORazepam OR LORazepam, fentaNYL (PF), acetaminophen, labetaloL, enalaprilat, bisacodyL, magnesium hydroxide, glucose 40% oral geL OR dextrose OR glucagon, polyethylene glycoL (MIRALAX) oral powder Anthropometrics: Admit Weight: 111.8 kg Estimated body mass index is 36.99 kg/m?? as calculated from the following: Height as of this encounter: 174 cm (5' 8.5). Weight as of this encounter: 112 kg (246 lb 14.6 oz). [place] Body Weight (IBW) (kg): 71.37 Wt Readings from Last 10 Encounters: 04/23/23 (S) 112 kg (246 lb 14.6 oz) Patient Vitals for the past 168 hrs: Weight 04/23/23 0154 112 kg (246 lb 14.6 oz) 04/21/23 0000 115.3 kg (254 lb 3.1 oz) 04/20/23 0600 117.2 kg (258 lb 6.1 oz) 04/19/23 0600 116.7 kg (257 lb 4.4 oz) 04/18/23 0645 111.8 kg (246 lb 7.6 oz) Weight Source: Bed Estimated / Assessed Needs: Fluid Requirements: Estimated Fluid Requirement Method: Weight Based Method Weight Based Method: 30 Weight Based Calculation: 2142 mL Kcal / K - 1785 Kcal (20 Kcal/Kg - 25 Kcal/Kg) Estimated Protein Needs: 86 g - 107 g (1.2 g/Kg - 1.5 g/Kg) Nutrition intake and intake history / interview: 04/23: Consulted again for TF. Prior goal remains appropriate for now - advance to goal. Off propofol. Has small bore feeding tube. Needs to move bowels. NPO per [employer]. 04/19: Re-intubated. TF at 25 mL/hr today. On low dose propofol. No BM this admission. 04/17: Consulted for TF recommendations. May extubate tomorrow. On some propofol. On alcohol withdrawal protocol - thiamine, folic acid and Thera M ordered. Nutrition Focused Physical Exam: Not performed Reason NFPE Not Performed: Not indicated. Malnutrition Diagnosis: Not identified (BETHANY Hagen J Parenteral Enteral Nutr. 2011; 36(3): 273-83) Nutrition to continue to follow up while inpatient Thank you, Angelia Paulino RDN, CNSC, LD Clinical Nutrition * [place] Leal Jennifer, PT - 04/24/2023 7:33 AM EDT Physical Therapy Evaluation Total duration of encounter: 6 days Patient profile: Myla Acosta is a 67 year old male with unknown pmhx (per chart review, does notappear to have a PCP or follow up within the [facility] system) who presents as a transfer from an OSH for evaluation of a right cerebellar IPH. Per report, LKN was 04/17/23 at 2100, he woke up c/o vertigo and nausea/vomiting. Subsequent imaging studies revealed a right cerebellar IPH with ANIL. Initial Bps were noted to be in the 200s. Was started on a nicard gtt for BP control. Was subsequently intubated at the OSH for airway protection given worsening somnolence. Presented to [facility] where he was intubated. Brainstem reflexes were preserved. Decision was made to place EVD with NSG. Imaging of carotids and [place] reveal unexpected finding of type B aortic dissection. CTACA with type B dissection extending from subclav to external iliac. Vascular surgery was consulted.Pt was extubated on 04/23, but has been on the CIWA protocol. Patient with the following active problems: No past medical history on file. No past surgical history on file. Social History: Patient lives with spouse in a [place] level home, 1 [address]. Walk in shower with Gbs. Spouse works fulltime. 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 Normally independent. Bilateral hip OA/pain but no device used normally. Independent ADLs and shared IADLs Precautions/Special Considerations: HOB > 30 deg, SBP <120, HR <60, R EVD can be clamped x15 mins, rebolledo catheter, PICC, arterial line, DHT, NPO, goal spO2 >92%, supplemental O2 Mobility and Positioning Recommendations: Pt. to utilize bed/chair positioning with nursing. Please encourage up to chair for meal times as able. EPM Level 2: Bed-Chair position, Mechanically lift to chair, Participate in self care Subjective: ???will you stop?? - otherwise patient with mostly garbled speech Objective: Pt seen for initial evaluation today. Pain: Number Location At rest FACES 0 With activity FACES 6 With pulling forward into long sit - unable to state exact location Vital Signs: At Rest With Activity SpO2 (2LNC) 97% 94% BP (MAP) 110S/60s(80s)mmHg 120s/60s (80s)mmHg HR 61bpm 63bpm Behavior / Mood: agitated, confused, impaired task initiation, and lethargic Oriented to: person - responsive to date. Otherwise unable to answer orientation questions Follows commands: 1 step and 25% of the time, needs repeated cuing to maintain eyes open and arousal during commands Attention: difficulty attending to task/directions and fatigued, verbal and tactile cuing to maintain arousal/participation Safety awareness: impulsive and bilateral wrist restraints RASS: -2/-1 (per RN has been difficult fluctuating between sedated and agitated) CAM: N/A Vision: glasses worn Skin: intact but at risk for breakdown Musculoskeletal: ROM: moving bilateral UE and LE against gravity with full appearing ROM but unable to formally assess due to reduced command following Sensation: unable to assess Tone: appearing normal Strength: at least 3/5 bilateral LE and UE with repeated commands and stimulation. Unable to apply resistance due to reduced command following and understanding of directions Bed Mobility: Supine to Sit: dependent with bed features Sit to Supine: dependent Transfers: Sit to Stand: unable Stand to Sit: unable Bed to Chair: dependent with bed features into bed chair positioning Other: pulling forward using bed rails in bed into long sitting - > max A x2 but able to hold rails Gait: AVI Stairs: AVI Balance: Sitting Static: AVI - difficulty maintaining midline sitting posture with back support of bed Sitting Dynamic: AVI Standing Static: AVI Standing Dynamic / Gait: AVI Self Care: N/A Education: patient educated on role of PT, orientation, participation, safety, and plan of care, with poor/guarded understanding/demonstration. Patient status, treatment, and mobility recommendations discussed with nursing. Assessment: Myla Acosta was seen today for physical therapy evaluation. Pt presented with impairments of cognition, communication, participation, activity tolerance, strength, and arousal, whichare currently contributing to functional limitations. Pt lethargic, needing constant verbal and tactile cuing to maintain level of arousal for command following. Still, only able to follow ~25% of sim ple, one-step commands. Irritated after prolonged activity and command requests. Assisted in modified bed chair position, with vital signs remaining below parameters. Session overall limited by current lethargy and mental status. Expect he will have some apraxia, ataxia, and/or balance impairment but unable to appreciate at this time due to inability to achieve full upright positioning. Anticipate pt will need acute inpatient rehab at time of discharge from hospital setting. Pt will benefit from skilled therapy services throughout hospitalization to promote safety, independence, and provide developmental support/caregiver education. Discharge Recommendations: Based on the current findings, Anticipated Discharge Disposition (PT): acute rehabilitation facility when medically ready for hospital discharge. Discharge recommendation is based on the patient's current physical impairments, prior functional status, potential to return to prior level of function, patient motivation, reported home support, potential for functional gains, current level of endurance, reported home environment and anticipated trajectory of progress and may change based on patient progress during this hospitalization. Consult Recommendations: No other consults recommended at this time. Equipment Needs: Anticipated Equipment Needs at Discharge (PT): to be determined Inpatient/Acute Care PT Plan: Therapy Frequency (PT): 2-4 times/wk for therapy including balance training, bed mobility training, gait training, home exercise program, neuromuscular re-education, patient/family education, range of motion, stair training, strengthening, transfer training, and wheelchair managment/propulsion training. X Consult service will continue to follow patient. PT signing off. Recommendations above, page if further consultation required. Goals: To be achieved by 05/25/23: Pt. to demonstrate knowledge of safety limitations and precautions Pt. to demonstrate understanding of appropriate exercises. Pt. to perform supine to/from sitting EOB with mod A x2 Pt. to perform sit to/from stand transfers with mod A x2 and LRAD Pt. to ambulate 10 feet with mod A and least restrictive assistive device Pt. to propel WC x50 feet with min A Pt to sit at EOB, participating in functional task for >5 minutes without LOB, with CG assistance Pt to tolerate use of overhead lift for OOB transfers Pt to tolerate upright positioning with VSS 2017 PT Evaluation Code Rationale: Diagnosis & Pertinent Co-Morbidities, personal factors, and present illness affecting Plan of Care: (see above); Additional personal factors or co- morbidities that impact plan: Total # of Factors: 0 1-2 3+ x Examination of body system impairments, functional limitations and behaviors, and/or participation restrictions. Addressing 1-2 elements Addressing 3 + elements Addressing 4 + elements x Clinical presentation: See assessment above. Stable/Uncomplicated Evolving/Fluctuating Symptoms Unstable/Unpredictable x Clinical decision making of high complexity based on pt's functional performance as outlined in this evaluation. Time IN / OUT: 9598-0217 Total Minutes, Physical Therapy: 30 Billing Code: x1 high eval Thank you for this consult. [place] Leal, PT Pager: [phone] Physical Therapy Inpatient Rehabilitation Department * Royal Rothman MD - 04/24/2023 6:53 AM EDT NEUROSURGERY PROGRESS NOTE ID: Myla 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 male largely without routine medical care and not on any medications, presenting in transfer from OSH for R cerebellar IPH and intraventricular extension. S/p R EVD placement for hydrocephalous HD# 6 POD # INTERVAL HX/ROS: Remains extubated Neuro stable MEDICATIONS: Scheduled Meds: carvediloL 6.25 mg Per NG tube BID sodium chloride 4 mL Nebulization Q4H heparin (porcine) 5,000 Units Subcutaneous Q8H YUSUF lisinopriL 40 mg Per NG tube Daily amLODIPine 10 mg Per NG tube Daily lidocaine 1 patch Transdermal Q24H camphor-methyl salicyl-menthoL Topical (Top) BID insulin lispro 1-6 Units Subcutaneous Q4H YUSUF senna-docusate 2 tablet Per NG tube BID thiamine 100 mg Intravenous Daily folic acid 1,000 mcg Per NG tube Daily multivitamin with minerals 1 tablet Per NG tube Daily Continuous Infusions: tube feeding diet 1,000 mL Per NG tube Continuous ### esmoloL (Brevibloc) (10 mg/mL) in sterile water 250 mL infusion 0-200 mcg/kg/min Intravenous Continuous ### clevidipine (Cleviprex) (0.5 mg/mL) infusion 1-16 mg/hr Intravenous Continuous ### dexmedeTOMIDine (Precedex) (4 mcg/mL) in sodium chloride 0.9% 100 mL infusion 0- 1.7 mcg/kg/hr (Adjusted) Intravenous Continuous ### PRN Meds: potassium chloride in water OR potassium chloride in water OR potassium chloride in water, LORazepam OR LORazepam OR LORazepam OR LORazepam OR LORazepam OR LORazepam OR LORazepam OR LORazepam OR LORazepam, fentaNYL (PF), acetaminophen, labetaloL, enalaprilat, bisacodyL, magnesium hydroxide, glucose 40% oral geL OR dextrose OR glucagon, polyethylene glycoL (MIRALAX) oral powder EXAM: Vitals: Temp: [36.6 ??C (97.9 ??F)-37.1 ??C (98.8 ??F)] Heart Rate: [60-68] Resp: [14-30] BP: -- SpO2: [93 %-100 %] Heart Rate from SpO2: [60 bpm-105 bpm] BMI: Weight: (S) 112 kg (246 lb 14.6 oz) (04/23/23 0154) I/O: I/O last 3 completed shifts: In: 7234.2 [I.V.:6834.2; NG/GT:370] Out: 4966 [Urine:4550; Other:416] EVD @ 20H2O =235cc output, ICP 10-16 GEN: NEURO:GCS E2V1M6 Ox0 Does not aprticipate in EOM exam pupils 5mm and reactive No facial asymmetry Very [place] [employer]: RUE:FC thumbs up LUE: FC thumbs up RLE: wiggles toes LLE: wiggles toes LABS: Recent Labs 04/24/23 0020 04/23/23 0024 04/22/23 0139 WBC 7.7 8.4 8.1 HGB 12.3* 13.0* 12.5* PLATELET 181 190 170 Recent Labs 04/24/23 0020 04/23/23 0024 04/22/23 0300 04/22/23 0139 NA 139 142 -- 140 K 4.5 3.8 4.4 Not Perf CL 107 106 -- 107 CO2 21* 25 -- 25 BUN 24* 29* -- 27* CREATININE 0.93 1.04 -- 1.06 Recent Labs 04/23/23 0024 PT 12.7* INR 1.1 IMAGING: -None new Assessment: Myla 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 male largely without routine medical care and not on any medications, presenting in transfer from OSH for R cerebellar IPH and intraventricular extension. S/p R EVD placement for hydrocephalus. Doing well from neurologic standpoint, MRI done with no evidence of mass lesion. Hemorrhagic strokeworkup per [facility]/Neurology. Problem List: IPH IVH Hydrocephalous Plan: - Q1HNC - Pain control - Imaging: complete - SBP<160 - Monitor EVD/ICP per protocol, open at 20, possible clamp trial today - DVT ppx: SCDs, Ok SQH. Hold ASA for now\ - Current Diet: NPO diet (Give Meds) - Further care per [facility] PLEASE PAGE [phone] WITH QUESTIONS Active Hospital Problems Diagnosis ICH (intracerebral hemorrhage) Resolved Hospital Problems No resolved problems to display. There are no active non-hospital problems to display for this patient. Royal Rothman MD 04/24/2023 * Eliana Townsend RN - 04/23/2023 7:07 PM EDT OUTCOME EVALUATION NOTE: OUTCOME SUMMARY: Pt currently oriented to self only, follows commands. EVD in place now @ [id number], with pink drainage, Precedex at 1.7mcg/kg/hr, restraint in place. Pt on 3L NC. Pt on NSR with 1 degree heart block, on Cleviprex 6mg/hr, Esmolol 200mcg/hr. Last BM 04/22/23. Rebolledo out around 1630. PLAN MOVING FORWARD: VS q 1 Neuro checks q 2 Neurovascular checks q 4H SBP goal <120 HR goal<60 due to void at 20:30 CPG GOAL OUTCOME EVALUATION: roblem: Restraint, Nonbehavioral (Nonviolent) Goal: Discontinuation Criteria Achieved Outcome: Ongoing (Interventions Implemented as Appropriate) Problem: Adjustment to Illness (Stroke, Hemorrhagic) Goal: Optimal Coping Outcome: Ongoing (Interventions Implemented as Appropriate) Problem: Bowel Elimination Impaired (Stroke, Hemorrhagic) Goal: Effective Bowel Elimination Outcome: Ongoing (Interventions Implemented as Appropriate) Problem: Cerebral Tissue Perfusion (Stroke, Hemorrhagic) Goal: Optimal Cerebral Tissue Perfusion Outcome: Ongoing (Interventions Implemented as Appropriate) Problem: Cognitive Impairment (Stroke, Hemorrhagic) Goal: Optimal Cognitive Function Outcome: Ongoing (Interventions Implemented as Appropriate) Problem: Communication Impairment (Stroke, Hemorrhagic) Goal: Effective Communication Skills Outcome: Ongoing (Interventions Implemented as Appropriate) Problem: Functional Ability Impaired (Stroke, Hemorrhagic) Goal: Optimal Functional Ability Outcome: Ongoing (Interventions Implemented as Appropriate) Problem: Pain (Stroke, Hemorrhagic) Goal: Acceptable Pain Control Outcome: Ongoing (Interventions Implemented as Appropriate) Problem: Respiratory Compromise (Stroke, Hemorrhagic) Goal: Effective Oxygenation and Ventilation Outcome: Ongoing (Interventions Implemented as Appropriate) Problem: Sensorimotor Impairment (Stroke, Hemorrhagic) Goal: Improved Sensorimotor Function Outcome: Ongoing (Interventions Implemented as Appropriate) Problem: Swallowing Impairment (Stroke, Hemorrhagic) Goal: Oral Intake without Aspiration Outcome: Ongoing (Interventions Implemented as Appropriate) Problem: Urinary Elimination Impaired (Stroke, Hemorrhagic) Goal: Effective Urinary Elimination Outcome: Ongoing (Interventions Implemented as Appropriate) Problem: Fall Injury Risk Goal: Absence of Fall and Fall-Related Injury Outcome: Ongoing (Interventions Implemented as Appropriate) Problem: Adult Inpatient Plan of Care Goal: Plan of Care Review Outcome: Ongoing (Interventions Implemented as Appropriate) Goal: Patient-Specific Goal (Individualized) Outcome: Ongoing (Interventions Implemented as Appropriate) Goal: Absence of Hospital-Acquired Illness or Injury Outcome: Ongoing (Interventions Implemented as Appropriate) Goal: Optimal Comfort and Wellbeing Outcome: Ongoing (Interventions Implemented as Appropriate) Goal: Readiness for Transition of Care Outcome: Ongoing (Interventions Implemented as Appropriate) * Tana Smith MD - 04/23/2023 10:50 AM EDT ICU PROGRESS NOTE DOA: 04/18/2023 Room: [facility] Length of Stay: 5 ICU Length of Stay 5d 7h Myla Acosta ( ) is a 67 y.o. male with h/o etoh use, undoctored p/w R cerebellar hemorrhage with intraventricular extension, acute obstructive hydrocephalus s/p EVD placement, course c/b failed extubation 2/2 aspiration. 24hr events: No events. ICP 7-13 output 293cc. Ativan x 2 over night for agitation. Medications: Scheduled Meds: lidocaine Topical (Top) Once carvediloL 6.25 mg Per NG tube BID potassium, sodium phosphates 3 g Per NG tube 4 Times Daily sodium chloride 4 mL Nebulization Q4H heparin (porcine) 5,000 Units Subcutaneous Q8H YUSUF lisinopriL 40 mg Per NG tube Daily amLODIPine 10 mg Per NG tube Daily lidocaine 1 patch Transdermal Q24H camphor-methyl salicyl-menthoL Topical (Top) BID insulin lispro 1-6 Units Subcutaneous Q4H [facility] senna-docusate 2 tablet Per NG tube BID thiamine 100 mg Intravenous Daily folic acid 1,000 mcg Per NG tube Daily multivitamin with minerals 1 tablet Per NG tube Daily Continuous Infusions: sodium chloride 0.9% 100 mL/hr (04/23/23 133) esmoloL 200 mcg/kg/min (04/23/23 1356) clevidipine 5 mg/hr (04/23/23 133) dexmedeTOMIDine 1.7 mcg/kg/hr (04/23/231335) PRN Meds:.LORazepam OR LORazepam OR LORazepam OR LORazepam OR LORazepam OR LORazepam OR LORazepam OR LORazepam OR LORazepam, potassium chloride ER, fentaNYL (PF), acetaminophen, labetaloL, enalaprilat, bisacodyL, magnesium hydroxide, glucose 40% oral geL OR dextrose OR glucagon, polyethylene glycoL (MIRALAX) oral powder Vitals: Temp: [36.5 ??C (97.7 ??F)-37.4 ??C (99.3 ??F)] Heart Rate: [61-85] Resp: [15-32] BP: (113-183)/(51-116) SpO2: [90 %-99 %] Heart Rate from SpO2: [61 bpm-85 bpm] Physical Exam: Cons: NAD, Cardiac: RRR S1S2 Pulm: CTAB, no W/R/R GI: S/NT/ND, BS+ MSK: WWP, no C/C/E Neuro Exam: MS: Eyes open to voice, tracking, following commands, disoriented to place and circumstances CN: PERRL, EOMI, blink to threat bilaterally, +c/g Motor: Normal bulk and tone throughout, 5/5 throughout Coord: RUE dysmetria I/Os: Intake/Output Summary (Last 24 hours) at 04/23/2023 1412 Last data filed at 04/23/2023 1336 Gross per 24 hour Intake 5411.67 ml Output 4154 ml Net 1257.67 ml Labs: Last 3 wbc, hgb, hct plt Recent Labs 04/23/23 0024 04/22/23 0139 04/21/23 003 WBC 8.4 8.1 10.3* HGB 13.0* 12.5* 13.5* HCT 39.7* 37.9* 40.5 PLATELET 190 170 174 Last 3 Lytes Recent Labs 04/23/23 0024 04/22/23 0300 04/22/239 04/21/23 0520 04/21/23 0036 NA 142 -- 140 -- 141 K 3.8 4.4 Not Perf < > 3.6 CL 106 -- 107 -- 104 CO2 25 -- 25 -- 26 BUN 29* -- 27* -- 26* CREATININE 1.04 -- 1.06 -- 1.28 < > = values in this interval not displayed. Last 3 LFTs Recent Labs 04/23/23 0024 04/19/23 0035 04/18/23 0650 AST 28 22 32 ALT 26 19 26 ALKPHOS 64 66 74 BILITOT 0.4 0.3 0.5 BILIDIR 0.2 0.1 -- Last Ca, Mg, Phos Recent Labs 04/23/2323 CALCIUM 8.7 PHOS 3.2 MAGNESIUM 0.80 Last 3 Coags Recent Labs 04/23/23 0024 04/19/23 0035 04/18/23 0650 PT 12.7* 12.2 12.4 INR 1.1 1.1 1.1 PTT 36 -- 38* Last 3 ProBNP, Trop, CK No results for input(s): CK, TROPONINT, PROBNP in the last 168 hours. Last 3 TFT Recent Labs 04/19/2334 TSH 0.74 Last 3 Lipids Recent Labs 04/23/23 0024 04/20/23 0110 04/19/2334 CHLPL -- -- 220 HDL -- -- 86 LDLDIRECT -- -- 129 TRIG 144 82 78 Last 3 HgbA1C Recent Labs 03/13/24 0035 HA1C 6.0* Micro: - 04/19: BAL NRF Imaging/Studies: - I have reviewed all imaging for this admission. Assessment/Plan: Neuro - R cerebellar hemorrhage, likely HTNive, acute obstructive hydrocephalus s/p R frontal EVD placement, etoh use disorder. 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 Start carvedilol 6.25 q12 - Wean cleviprex and esmolol as tolerated - OP follow-up for aortic root dilation Pulm - 4L NC - Goal PaO2 > 60, paCO2 35-45, O2 sats > 92% - Wean O2 as tolerated GI - Constipation, dysphagia - Coughing with bedside dysphagia; T[employer]ULTANT eval, NPO except meds, place DHT - Escalate bowel reg - GI ppx with H2B FEN/ - - maintain euvolemia, I=O - Goal Na 135-145, K > 4, Mg > 1 - ICU potassium repletion protocol - DC Rebolledo Heme - - goal Hgb > 7, INR < 1.5, Platelets > 10k - SCDs, SQH Endo - - goal glucose 120-180 --> Accuchecks and ISS - A1C 6 ID - afebrile, no leukocytosis - Monitor off antibiotics - Reculture q72hr for temp > 101F --> UA, blood cx, sputum cx, CSF cx, CXR - acetaminophen PRN Core: Code status: FULL Dispo - ICU //////////////////////////////////////////////////////////////////////////////// //////////////////// /////////////////////////////////////////////////Attestation: IS PATIENT CRITICALLY ILL ? Is there a high potential of sudden, clinically significant, or life threatening deterioration? No Is there a need for direct personal assessment and management to treat/prevent multiple vital organfailure/deterioration? No If this patient is not critically ill, the reason for continued hospitalization is EVD wean, rehab placement. Tana Smith MD 04/23/2023 2:12 PM * Royal Rothman MD - 04/23/2023 7:17 AM EDT NEUROSURGERY PROGRESS NOTE ID: Myla 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 male largely without routine medical care and not on any medications, presenting in transfer from OSH for R cerebellar IPH and intraventricular extension. S/p R EVD placement for hydrocephalous HD# 5 POD # INTERVAL HX/ROS: Now extubated Neuro stable Large aortic dissection discovered on vascular imaging. Vascular surgery recommending BP/HR controland ASA when able MEDICATIONS: Scheduled Meds: metoprolol 10 mg Intravenous Q6H potassium, sodium phosphates 3 g Per NG tube 4 Times Daily lidocaine 5 mL Subcutaneous Once sodium chloride 4 mL Nebulization Q4H heparin (porcine) 5,000 Units Subcutaneous Q8H YUSUF lisinopriL 40 mg Per NG tube Daily amLODIPine 10 mg Per NG tube Daily lidocaine 1 patch Transdermal Q24H camphor-methyl salicyl-menthoL Topical (Top) BID insulin lispro 1-6 Units Subcutaneous Q4H YUSUF senna-docusate 2 tablet Per NG tube BID thiamine 100 mg Intravenous Daily folic acid 1,000 mcg Per NG tube Daily multivitamin with minerals 1 tablet Per NG tube Daily Continuous Infusions: tube feeding diet 1,300 mL Per NG tube Continuous ### esmoloL (Brevibloc) (10 mg/mL) in sterile water 250 mL infusion 0-200 mcg/kg/min Intravenous Continuous ### clevidipine (Cleviprex) (0.5 mg/mL) infusion 1-16 mg/hr Intravenous Continuous ### dexmedeTOMIDine (Precedex) (4 mcg/mL) in sodium chloride 0.9% 100 mL infusion 0- 1.7 mcg/kg/hr (Adjusted) Intravenous Continuous ### PRN Meds: LORazepam OR LORazepam OR LORazepam OR LORazepam OR LORazepam OR LORazepam OR LORazepam OR LORazepam OR LORazepam, potassium chloride ER, fentaNYL (PF), acetaminophen, labetaloL, enalaprilat, bisacodyL, magnesium hydroxide, glucose 40% oral geL OR dextrose OR glucagon, polyethylene glycoL (MIRALAX) oral powder EXAM: Vitals: Temp: [36.5 ??C (97.7 ??F)-37.5 ??C (99.5 ??F)] Heart Rate: [63-85] Resp: [15-32] BP: (113-183)/(51-116) SpO2: [90 %-98 %] Heart Rate from SpO2: [61 bpm-85 bpm] BMI: Weight: (S) 112 kg (246 lb 14.6 oz) (04/23/23 0154) I/O: I/O last 3 completed shifts: In: 5562.7 [I.V.:4252.7; NG/GT:1150; IV Piggyback:100] Out: 5235 [Urine:4820; Other:415] EVD @ 15H2O = 293cc output, ICP 8-13 GEN: NEURO:GCS [id number] Does not aprticipate in EOM exam pupils 5mm and reactive No facial asymmetry Very [place] MOTOR: RUE:FC thumbs up LUE: FC thumbs up RLE: wiggles toes LLE: wiggles toes LABS: Recent Labs 04/23/23 0024 04/22/23 0139 04/21/23 0036 WBC 8.4 8.1 10.3* HGB 13.0* 12.5* 13.5* PLATELET 190 170 174 Recent Labs 04/23/23 0024 04/22/23 0300 04/22/23 0139 04/21/23 0520 04/21/23 0036 NA 142 -- 140 -- 141 K 3.8 4.4 Not Perf < > 3.6 CL 106 -- 107 -- 104 CO2 25 -- 25 -- 26 BUN 29* -- 27* -- 26* CREATININE 1.04 -- 1.06 -- 1.28 < > = values in this interval not displayed. Recent Labs 04/23/23 0024 PT 12.7* INR 1.1 IMAGING: -None new Assessment: Myla 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 male largely without routine medical care and not on any medications, presenting in transfer from OSH for R cerebellar IPH and intraventricular extension. S/p R EVD placement for hydrocephalus. Doing well from neurologic standpoint, MRI done with no evidence of mass lesion. Hemorrhagic strokeworkup per NCCU/Neurology. Problem List: IPH IVH Hydrocephalous Plan: - Q1HNC - Pain control - Imaging: complete - SBP<160 - Monitor EVD/ICP per protocol, open at 15 - DVT ppx: SCDs, Ok SQH. Will discuss with attending timing of ASA for aortic disection - Current Diet: NPO diet (Give Meds) - Further care per NCCU PLEASE PAGE [id number] WITH QUESTIONS Active Hospital Problems Diagnosis ICH (intracerebral hemorrhage) Resolved Hospital Problems No resolved problems to display. There are no active non-hospital problems to display for this patient. Royal Rothman MD 04/23/2023 Associated attestation - Nayana Barker MD - 04/24/2023 9:21 AM EDT I was the attending physician supervising the resident in the above care. For the purposes of billing, the resident provided the care. * Yemi Lora RCP - 04/23/2023 5:05 AM EDT PT received on NC 2 L/mi post extubation, previously on HFNC post extubation and weaned to NC during day. Flow increased to 4 L/min overnight and pt remains not following commands at this time with restraints in place. Airway clearance ordered with IPV trial but pt does not follow commands and willnot cooperate with IPV. Plan to continue 3% hypertonic to assist with airway clearance and encouragement for coughing. * Dorina Decker PA - 04/23/2023 12:43 AM EDT NCCU update progress note: CTA H/N w/ concern for partially visualized thoracic aorta dissection, for which CT chest w/ contrast was done. CT chest w/ dissection from L subclavian to bilateral iliacs. On exam pt with intact/ equal distal pulses, no clinical signs of malperfusion. EKG w/out ischemic changes. Vascular surgery consulted, note pending but plan for medical management for now with interval follow up imaging, HR/SBP control, pain management. Plan- RRAL placed Target HR less than 60 (currently in the 70's/high 60's w/ esmolol/ precedex max'ed adding metop), SBP < 120 (currently at goal w/ cleviprex) 48hr follow up CT ordered, low threshold for repeat imaging if signs of malperfusion, increasing pain, worsening O2 requirements, etc. Continued vascular surgery follow up Q 4 pulses checks Agitation control with precedex, ativan scale given hemodynamic effects Pain management with IV fentanyl (currently not reporting pain) Vascular surgery follow up Baseline LFT's, LA, coags, updated type and screen ordered updated over the phone NCCU attending updated on all of the above MICHELET Avelar * Hali Ayers, RT - 04/22/2023 5:45 PM EDT Current Settings: 2L NC Airway: 8.0 at 24 cm at the Teeth. Skin Integrity: WDL Ambu bag setup at HOB Breath Sounds: diminished Secretions: small yellow thin Assessment / Events: Received patient on PS8 cmH2O / +5 cmH2O PEEP 30 % FiO2 with RR~ 23 bpm Ve~ 8.6 L/min Sating 93 % Vt~ 330 ml EtCo2 35 mmHg Passed SBT SBT for ~30min on CPAP 0/+5 30% Start SBT End of SBT Initiated ~730am with RASS -3 RR 21 20 Vt 320 427 Ve 6.9 9.4 SpO2 92 93 EtCo2 39 36 HR 70 72 BP 163/105 162/99 Sat sustained 91 titrated to 35% In rounds MD performed cuff leak test. +Cuff leak on CPAP 14 Extubated to HFNC ~1220 30lpm 30% Periods of agitaiton/pulling at tubes. Not following or refusing direction for IPV. Given hypertonic neb via mask, tolerated well. Transitioned to low flow NC Plan: Inhaled Medications: 3% Q4 ACT SpO2 goal >92% Encourage deep breath and cough Ambulate/up to chair as able * Tana Smtih MD - 04/22/2023 9:46 AM EDT ICU PROGRESS NOTE DOA: 04/18/2023 Room: [address] [place], [place] [id number] Length of Stay: 4 ICU Length of Stay 4d 3h Myla Acosta ( ) is a 67 y.o. male with h/o etoh use, undoctored p/w R cerebellar hemorrhage with intraventricular extension, acute obstructive hydrocephalus s/p EVD placement, course c/b failed extubation 2/2 aspiration. 24hr events: No events. ICP 6-10, output 294cc. Medications: Scheduled Meds: potassium, sodium phosphates 3 g Per NG tube 4 Times Daily sodium chloride 4 mL Nebulization Q4H chlorhexidine 15 mL Oral BID famotidine 20 mg Per OG Tube BID heparin (porcine) 5,000 Units Subcutaneous Q8H YUSUF lisinopriL 40 mg Per NG tube Daily amLODIPine 10 mg Per NG tube Daily lidocaine 1 patch Transdermal Q24H camphor-methyl salicyl-menthoL Topical (Top) BID insulin lispro 1-6 Units Subcutaneous Q4H YUSUF senna-docusate 2 tablet Per NG tube BID thiamine 100 mg Intravenous Daily folic acid 1,000 mcg Per NG tube Daily multivitamin with minerals 1 tablet Per NG tube Daily Continuous Infusions: tube feeding diet 65 mL/hr at 04/22/23 0800 propofoL 20 mcg/kg/min (04/22/23 0809) clevidipine Stopped (04/20/23 0726) dexmedeTOMIDine 1.2 mcg/kg/hr (04/22/23 0800) PRN Meds:.fentaNYL (PF) OR fentaNYL (PF), propofoL AND propofoL, potassium chloride in water OR potassium chloride in water OR potassium chloride in water, PHENobarbitaL, acetaminophen, labetaloL, enalaprilat, bisacodyL, magnesium hydroxide, glucose 40% oral geL OR dextrose OR glucagon, polyethylene glycoL (MIRALAX) oral powder Vitals: Temp: [37.2 ??C (99 ??F)-37.9 ??C (100.2 ??F)] Heart Rate: [66-87] Resp: [13-28] BP: (122-166)/(73-107) SpO2: [89 %-96 %] Heart Rate from SpO2: [66 bpm-89 bpm] Ventilator Settings: PS 10/5 30% Physical Exam: Cons: NAD, intubated with sedation paused Cardiac: RRR S1S2 Pulm: CTAB, no W/R/R GI: S/NT/ND, BS+ MSK: WWP, no C/C/E Neuro Exam: MS: Eyes open to voice, tracking, following commands CN: PERRL, midline gaze, blink to threat bilaterally, +c/g Motor: Normal bulk and tone throughout, 5/5 throughout Coord: RUE dysmetria I/Os: Intake/Output Summary (Last 24 hours) at 04/22/2023 0946 Last data filed at 04/22/2023 0800 Gross per 24 hour Intake 2110.92 ml Output 3660 ml Net -1549.08 ml Labs: Last 3 wbc, hgb, hct plt Recent Labs 04/22/23 0139 04/21/23 0036 04/20/23 0110 WBC 8.1 10.3* 10.6* HGB 12.5* 13.5* 13.5* HCT 37.9* 40.5 39.6* PLATELET 170 174 168 Last 3 Lytes Recent Labs 04/22/23 0300 04/22/23 0139 04/21/23 1611 04/21/23 0520 04/21/23 0036 04/20/23 0110 NA -- 140 -- -- 141 136 K 4.4 Not Perf 3.8 < > 3.6 3.4* CL -- 107 -- -- 104 101 CO2 -- 25 -- -- 26 27 BUN -- 27* -- -- 26* 18 CREATININE -- 1.06 -- -- 1.28 1.03 < > = values in this interval not displayed. Last 3 LFTs Recent Labs 04/19/23 0035 04/18/23 0650 AST 22 32 ALT 19 26 ALKPHOS 66 74 BILITOT 0.3 0.5 BILIDIR 0.1 -- Last Ca, Mg, Phos Recent Labs 04/22/23 0139 CALCIUM 8.7 PHOS 2.0* MAGNESIUM 0.92 Last 3 Coags Recent Labs 04/19/23 0035 04/18/23 0650 PT 12.2 12.4 INR 1.1 1.1 PTT -- 38* Last 3 ProBNP, Trop, CK No results for input(s): CK, TROPONINT, PROBNP in the last 168 hours. Last 3 TFT Recent Labs 04/19/23 0035 TSH 0.74 Last 3 Lipids Recent Labs 04/20/23 0110 04/19/23 0035 CHLPL -- 220 HDL -- 86 LDLDIRECT -- 129 TRIG 82 78 Last 3 HgbA1C Recent Labs 04/19/23 0035 HA1C 6.0* Micro: - 04/19: BAL NRF Imaging/Studies: - I have reviewed all imaging for this admission. Assessment/Plan: Neuro - R cerebellar hemorrhage, likely HTNive, acute obstructive hydrocephalus s/p R frontal EVD placement, etoh use disorder. 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 stroke likely 2/2 to compression by distended third ventricle - q1 neurochecks - KEISHA, PRN ativan - EVD open at 10, mgmnt per NSGY - Thiamine, folate, multiv - Analgesia: Tylenol - Precedex for agitation CV - Aortic root dilation (4.5cm) - SBP goal < 160, MAP > 65 - labetalol, hydralazine for SBP > 160 - if MAP sustained < 65, IVF, consider pressors - TTE with WNL - c/w lisinopril 40mg, amlodipine 10mg - OP follow-up for aortic root dilation Pulm - Acute hypoxemic respiratory failure 2/2 aspiration s/p reintubation - Goal PaO2 > 60, paCO2 35-45, O2 sats > 92% - s/p bronchoscopy - Continue chest PT/pulm toilet - Ventilator liberation protocol - VAP precautions - Airway clearance protocol GI - Constipation - Hold TF - Escalate bowel reg - GI ppx with H2B FEN/ - Anion gap metabolic acidosis likely alcoholic vs starvation ketosis - maintain euvolemia, I=O - Goal Na 135-145, K > 4, Mg > 1 - ICU potassium repletion protocol - Rebolledo for I/Os Heme - - goal Hgb > 7, INR < 1.5, Platelets > 10k - SCDs, SQH Endo - - goal glucose 120-180 --> Accuchecks and ISS - A1C 6 ID - afebrile, no leukocytosis - Monitor off antibiotics - Reculture q72hr for temp > 101F --> UA, blood cx, sputum cx, CSF cx, CXR - acetaminophen PRN Core: Code status: FULL Dispo - ICU //////////////////////////////////////////////////////////////////////////////// //////////////////// /////////////////////////////////////////////////Attestation: IS PATIENT CRITICALLY ILL ? Is there a high potential of sudden, clinically significant, or life threatening deterioration? YES Is there a need for direct personal assessment and management to treat/prevent multiple vital organfailure/deterioration? YES If this patient is not critically ill, the reason for continued hospitalization is n/a. PATIENT IS CRITICALLY ILL WITH THESE DIAGNOSES BEING MANAGED BY [facility] TEAM: Mechanical ventilation I personally performed 35 minutes of aggregate critical care time exclusive of procedures and teaching. This includes time spent during direct patient evaluation and reassessment, interpreting diagnostic tests, directing life and/or organ supporting interventions and documentation on the unit. Tana Smith MD 04/22/2023 9:46 AM * Chinyere Cruz MD - 04/22/2023 7:28 AM EDT NEUROSURGERY PROGRESS NOTE ID: Myla 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 male largely without routine medical care and not on any medications, presenting in transfer from OSH for R cerebellar IPH and intraventricular extension. S/p R EVD placement for hydrocephalous HD# 4 POD # INTERVAL HX/ROS: -DANIEL -Neuro stable -Left intubated, did not tolerate attempt at PS wean overnight, no SBT attempted -Awake and watching television this morning, on Precedex and Propofol, Phenobarb taper for EtOH MEDICATIONS: Scheduled Meds: potassium, sodium phosphates 3 g Per NG tube 4 Times Daily sodium chloride 4 mL Nebulization Q4H chlorhexidine 15 mL Oral BID famotidine 20 mg Per OG Tube BID heparin (porcine) 5,000 Units Subcutaneous Q8H YUSUF lisinopriL 40 mg Per NG tube Daily amLODIPine 10 mg Per NG tube Daily lidocaine 1 patch Transdermal Q24H camphor-methyl salicyl-menthoL Topical (Top) BID insulin lispro 1-6 Units Subcutaneous Q4H YUSUF senna-docusate 2 tablet Per NG tube BID thiamine 100 mg Intravenous Daily folic acid 1,000 mcg Per NG tube Daily multivitamin with minerals 1 tablet Per NG tube Daily Continuous Infusions: tube feeding diet 1,300 mL Per NG tube Continuous ### propofoL (Diprivan) (10 mg/mL) infusion 0-50 mcg/kg/min (Adjusted) Intravenous Continuous ### clevidipine (Cleviprex) (0.5 mg/mL) infusion 0-16 mg/hr Intravenous Continuous ### dexmedeTOMIDine (Precedex) (4 mcg/mL) in sodium chloride 0.9% 100 mL infusion 0- 1.7 mcg/kg/hr (Adjusted) Intravenous Continuous ### PRN Meds: fentaNYL (PF) OR fentaNYL (PF), propofoL AND propofoL, potassium chloride in water OR potassium chloride in water OR potassium chloride in water, PHENobarbitaL, acetaminophen, labetaloL, enalaprilat, bisacodyL, magnesium hydroxide, glucose 40% oral geL OR dextrose OR glucagon, polyethylene glycoL (MIRALAX) oral powder EXAM: Vitals: Temp: [37.3 ??C (99.2 ??F)-37.9 ??C (100.2 ??F)] Heart Rate: [66-87] Resp: [12-28] BP: (122-166)/(73-107) SpO2: [89 %-96 %] Heart Rate from SpO2: [66 bpm-89 bpm] BMI: Weight: 115.3 kg (254 lb 3.1 oz) (04/21/23 0000) I/O: I/O last 3 completed shifts: In: 2474.9 [I.V.:733.9; NG/GT:1551; IV Piggyback:100] Out: 4627 [Urine:4185; Other:442] EVD @ 10H2O = 294cc output, ICP 5-11 GEN: NEURO:GCS [id number] Intubated, sedated EOMI, pupils 3mm and reactive No facial asymmetry, sticks out tongue to command MOTOR: RUE:FC thumbs up LUE: FC thumbs up RLE: wiggles toes LLE: wiggles toes LABS: Recent Labs 04/22/23 0139 04/21/23 0036 04/20/23 0110 WBC 8.1 10.3* 10.6* HGB 12.5* 13.5* 13.5* PLATELET 170 174 168 Recent Labs 04/22/23 0300 04/22/23 0139 04/21/23 1611 04/21/23 0520 04/21/23 0036 04/20/23 0110 NA -- 140 -- -- 141 136 K 4.4 Not Perf 3.8 < > 3.6 3.4* CL -- 107 -- -- 104 101 CO2 -- 25 -- -- 26 27 BUN -- 27* -- -- 26* 18 CREATININE -- 1.06 -- -- 1.28 1.03 < > = values in this interval not displayed. No results for input(s): PT, INR in the last 72 hours. IMAGING: -None new Assessment: Myla 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 male largely without routine medical care and not on any medications, presenting in transfer from OSH for R cerebellar IPH and intraventricular extension. S/p R EVD placement for hydrocephalus. Doing well from neurologic standpoint, MRI done with no evidence of mass lesion. Hemorrhagic strokeworkup per NCCU/Neurology. He remains intubated for respiratory reasons only. Will attempt to raiseEVD today. Problem List: IPH IVH Hydrocephalous Plan: - Q1HNC - Pain control - Imaging: complete - SBP<160 - Monitor EVD/ICP per protocol, open at 20 - DVT ppx: SCDs, Ok SQH - Current Diet: NPO diet (Give Meds) - Further care per NCCU PLEASE PAGE [phone] WITH QUESTIONS Active Hospital Problems Diagnosis ICH (intracerebral hemorrhage) Resolved Hospital Problems No resolved problems to display. There are no active non-hospital problems to display for this patient. Chinyere Cruz MD 04/22/2023 Associated attestation - Nayana Barker MD - 04/24/2023 9:21 AM EDT I was the attending physician supervising the resident in the above care. For the purposes of billing, the resident provided the care. * Chantal Davis, RT - 04/21/2023 9:00 PM EDT AMV Protocol: Yes SBT Protocol: Yes SBT: Not performed Vent Settings: Ventilator Mode: PS/CPAP PEEP Set: 5 FiO2: 30 % PSV: 8 Ventilator Measurements: Resp: 20 Vt Spontaneous: 408 Ve: 7 SpO2: 93 % EtCO2: 36 mmHg Airway: 8.0 @ 24 cm at the Teeth. Skin Integrity: WDL Nebulized Medications: 3% Hypertonic Saline Breath Sounds: Dim. Secretions: Small thick pale yellow/white Assessment / Events / Plan of the Day: Received patient intubated and mechanically ventilated in PS10/5 30%. PS weaned to 8. Attempted to wean PS to 5 but vt would drop to 3-4 cc/kg. SBT not performed due to drop in vt and increase in rr with less support. IPV performed once this AM with 3% for 8 min and tolerated well. Small amounts of pale secretions suctioned. Plan: Continue to support patient in AMV protocol. Wean as tolerated. Chantal Davis, RT * Brian Fonseca, LUBRICATION WORKER - 04/21/2023 5:22 PM EDT AMV Protocol: Yes SBT Protocol: Yes Vent Settings: Ventilator Mode: PS/CPAP PEEP Set: 5 FiO2: 30 % PSV: 10 Ventilator Measurements: Resp: 15 Vt Spontaneous: 494 Ve: 10.6 SpO2: 94 % EtCO2: 39 mmHg Airway: 8.0 @ 24 cm at the Teeth. Skin Integrity: WDL PEEP decreased from 8 to 5 FIO2 decreased from 0.35 to 0.3 Pt received scheduled 3% nebs Pt received IPV Suctioning moderate amount of thick yellow secretions from ETT * Maliha Haley OT - 04/21/2023 1:44 PM EDT Occupational Therapy Note: 04/21/23 1343 Evaluation & Treatment Document Type contact Total Minutes, Occupational Therapy 0 Comment, Session Not Performed OT is following, checked in today and pt continues to be not yet ready for OT evaluation. Will re-attempt early next week. Maliha Haley OT Pager [phone] Occupational Therapy Rehabilitation Department * Royal Rothman MD - 04/21/2023 9:38 AM EDT NEUROSURGERY PROGRESS NOTE ID: Myla 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 male largely without routine medical care and not on any medications, presenting in transfer from OSH for R cerebellar IPH and intraventricular extension. S/p R EVD placement for hydrocephalous HD# 3 POD # INTERVAL HX/ROS: DANIEL Neuro stable MEDICATIONS: Scheduled Meds: sodium chloride 4 mL Nebulization Q4H furosemide 40 mg Intravenous Once chlorhexidine 15 mL Oral BID famotidine 20 mg Per OG Tube BID heparin (porcine) 5,000 Units Subcutaneous Q8H YUSUF lisinopriL 40 mg Per NG tube Daily amLODIPine 10 mg Per NG tube Daily lidocaine 1 patch Transdermal Q24H camphor-methyl salicyl-menthoL Topical (Top) BID insulin lispro 1-6 Units Subcutaneous Q4H YUSUF senna-docusate 2 tablet Per NG tube BID thiamine 100 mg Intravenous Daily folic acid 1,000 mcg Per NG tube Daily multivitamin with minerals 1 tablet Per NG tube Daily PHENobarbitaL 0.12 mg/kg/dose ([place]) Oral BID Continuous Infusions: tube feeding diet 1,300 mL Per NG tube Continuous ### clevidipine (Cleviprex) (0.5 mg/mL) infusion 0-16 mg/hr Intravenous Continuous ### dexmedeTOMIDine (Precedex) (4 mcg/mL) in sodium chloride 0.9% 100 mL infusion 0- 1.7 mcg/kg/hr (Adjusted) Intravenous Continuous ### PRN Meds: potassium chloride ER OR potassium chloride ER, fentaNYL (PF) OR fentaNYL (PF), PHENobarbitaL, acetaminophen, labetaloL, enalaprilat, bisacodyL, magnesium hydroxide, glucose 40% oral geL OR dextrose OR glucagon, polyethylene glycoL (MIRALAX) oral powder EXAM: Vitals: Temp: [37.1 ??C (98.8 ??F)-37.8 ??C (100 ??F)] Heart Rate: [62-96] Resp: [12-26] BP: (96-196)/(64-110) SpO2: [86 %-100 %] Heart Rate from SpO2: [59 bpm-93 bpm] BMI: Weight: 115.3 kg (254 lb 3.1 oz) (04/21/23 0000) I/O: I/O last 3 completed shifts: In: 3814 [I.V.:2300.5; NG/GT:627.5; IV Piggyback:656] Out: 3652 [Urine:3110; Other:542] EVD @ 10H2O = 305cc output, ICP 11-18 GEN: NEURO:GCS [id number] EOMI No facial asymmetry MOTOR: RUE:FC thumbs up LUE: FC thumbs up RLE: Purposeful withdrawal LLE: purposeful withdrawal LABS: Recent Labs 04/21/23 0036 04/20/23 0110 04/19/23 0035 WBC 10.3* 10.6* 12.0* HGB 13.5* 13.5* 14.3 PLATELET 174 168 184 Recent Labs 04/21/23 0520 04/21/23 0036 04/20/23 0110 04/19/23 1200 04/19/23 0035 NA -- 141 136 -- 142 K 3.7 3.6 3.4* < > 3.8 CL -- 104 101 -- 103 CO2 -- 26 27 -- 20* BUN -- 26* 18 -- 17 CREATININE -- 1.28 1.03 -- 1.09 < > = values in this interval not displayed. Recent Labs 04/19/2334 PT 12.2 INR 1.1 IMAGING: CT 04/18: IMPRESSION 1. Interval decompression of the right lateral ventricle with persistent enlargement of the left lateral ventricle and resulting left to right subfalcine shift. 2. Stable size of the right cerebellar hemisphere parenchymal hemorrhage in the region of the dentate nucleus. Assessment: Myla 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 male largely without routine medical care and not on any medications, presenting in transfer from OSH for R cerebellar IPH and intraventricular extension. S/p R EVD placement for hydrocephalous. Problem List: IPH IVH Hydrocephalous Plan: - Q1HNC - Pain control - Imaging: complete - SBP<160 - Monitor EVD/ICP per protocol - DVT ppx: SCDs, Ok SQH today - Current Diet: NPO diet (Give Meds) - Further care per NCCU PLEASE PAGE [phone] WITH QUESTIONS Active Hospital Problems Diagnosis ICH (intracerebral hemorrhage) Resolved Hospital Problems No resolved problems to display. There are no active non-hospital problems to display for this patient. Royal Rothman MD 04/21/2023 * Tana Smith MD - 04/21/2023 9:00 AM EDT ICU PROGRESS NOTE DOA: 04/18/2023 Room: [address] [place] [address] Length of Stay: 3 ICU Length of Stay 3d 2h Myla Acosta ( ) is a 67 y.o. male with h/o etoh use, undoctored p/w R cerebellar hemorrhage with intraventricular extension, acute obstructive hydrocephalus s/p EVD placement, course c/b failed extubation 2/2 aspiration. 24hr events: No events. ICP 7-17, output 339cc. Medications: Scheduled Meds: sodium chloride 4 mL Nebulization Q4H chlorhexidine 15 mL Oral BID famotidine 20 mg Per OG Tube BID heparin (porcine) 5,000 Units Subcutaneous Q8H YUSUF lisinopriL 40 mg Per NG tube Daily amLODIPine 10 mg Per NG tube Daily lidocaine 1 patch Transdermal Q24H camphor-methyl salicyl-menthoL Topical (Top) BID insulin lispro 1-6 Units Subcutaneous Q4H YUSUF senna-docusate 2 tablet Per NG tube BID thiamine 100 mg Intravenous Daily folic acid 1,000 mcg Per NG tube Daily multivitamin with minerals 1 tablet Per NG tube Daily PHENobarbitaL 0.12 mg/kg/dose ([place]) Oral BID Continuous Infusions: propofoL 20 mcg/kg/min (04/21/23748) clevidipine Stopped (04/20/23725) tube feeding diet 25 mL/hr at 04/21/23748 dexmedeTOMIDine Stopped (04/20/23725) PRN Meds:.potassium chloride ER OR potassium chloride ER, fentaNYL (PF) OR fentaNYL (PF), PHENobarbitaL, propofoL AND propofoL, acetaminophen, labetaloL, enalaprilat, bisacodyL, magnesiumhydroxide, glucose 40% oral geL OR dextrose OR glucagon, polyethylene glycoL (MIRALAX) oralpowder Vitals: Temp: [37.1 ??C (98.8 ??F)-37.8 ??C (100 ??F)] Heart Rate: [62-96] Resp: [12-26] BP: (96-196)/(64-110) SpO2: [86 %-100 %] Heart Rate from SpO2: [59 bpm-93 bpm] Ventilator Settings: PS 10/5 30% Physical Exam: Cons: NAD, intubated with sedation paused Cardiac: RRR S1S2 Pulm: CTAB, no W/R/R GI: S/NT/ND, BS+ MSK: WWP, no C/C/E Neuro Exam: MS: Eyes open to voice, not tracking, following commands CN: PERRL, midline gaze, blink to threat bilaterally, +c/g Motor: Normal bulk and tone throughout, 5/5 throughout Coord: RUE dysmetria I/Os: Intake/Output Summary (Last 24 hours) at 04/21/2023 0900 Last data filed at 04/21/2023 0749 Gross per 24 hour Intake 873 ml Output 1761 ml Net -888 ml Labs: Last 3 wbc, hgb, hct plt Recent Labs 04/21/23 0036 04/20/23 0110 04/19/23 003 WBC 10.3* 10.6* 12.0* HGB 13.5* 13.5* 14.3 HCT 40.5 39.6* 41.7 PLATELET 174 168 184 Last 3 Lytes Recent Labs 04/21/23 0520 04/21/23 0036 04/20/23 0110 04/19/23 1200 04/19/23 0035 NA -- 141 136 -- 142 K 3.7 3.6 3.4* < > 3.8 CL -- 104 101 -- 103 CO2 -- 26 27 -- 20* BUN -- 26* 18 -- 17 CREATININE -- 1.28 1.03 -- 1.09 < > = values in this interval not displayed. Last 3 LFTs Recent Labs 04/19/23 0035 04/18/23 0650 AST 22 32 ALT 19 26 ALKPHOS 66 74 BILITOT 0.3 0.5 BILIDIR 0.1 -- Last Ca, Mg, Phos Recent Labs 04/21/23 003 CALCIUM 8.6 PHOS 3.5 MAGNESIUM 1.10* Last 3 Coags Recent Labs 04/19/23 0035 04/18/23 0650 PT 12.2 12.4 INR 1.1 1.1 PTT -- 38* Last 3 ProBNP, Trop, CK No results for input(s): CK, TROPONINT, PROBNP in the last 168 hours. Last 3 TFT Recent Labs 04/19/23 0035 TSH 0.74 Last 3 Lipids Recent Labs 04/20/23 0110 04/19/23 0035 CHLPL -- 220 HDL -- 86 LDLDIRECT -- 129 TRIG 82 78 Last 3 HgbA1C Recent Labs 04/19/23 0035 HA1C 6.0* Micro: - None Imaging/Studies: - I have reviewed all imaging for this admission. Assessment/Plan: Neuro - R cerebellar hemorrhage, likely HTNive, acute obstructive hydrocephalus s/p R frontal EVD placement, etoh use disorder - q1 neurochecks - Phenobarbital protocol for etoh withdrawal - EVD open at 10, mgmnt per NSGY - Thiamine, folate, multiv - Analgesia: Tylenol - Precedex for agitation CV - Aortic root dilation (4.5cm) - SBP goal < 160, MAP > 65 - labetalol, hydralazine for SBP > 160 - if MAP sustained < 65, IVF, consider pressors - TTE with WNL - c/w lisinopril 40mg, amlodipine 10mg - OP follow-up for aortic root dilation Pulm - Acute hypoxemic respiratory failure 2/2 aspiration s/p reintubation - Goal PaO2 > 60, paCO2 35-45, O2 sats > 92% - s/p bronchoscopy - Continue chest PT/pulm toilet - Ventilator liberation protocol - VAP precautions - Airway clearance protocol GI - - Tolerating TF - maintain bowel reg - GI ppx with H2B FEN/ - Anion gap metabolic acidosis likely alcoholic vs starvation ketosis - maintain euvolemia, I=O - Goal Na 135-145, K > 4, Mg > 1 - ICU potassium repletion protocol - Rebolledo for I/Os Heme - - goal Hgb > 7, INR < 1.5, Platelets > 10k - SCDs, SQH Endo - - goal glucose 120-180 --> Accuchecks and ISS - A1C 6 ID - afebrile, no leukocytosis - Monitor off antibiotics - Reculture q72hr for temp > 101F --> UA, blood cx, sputum cx, CSF cx, CXR - acetaminophen PRN Core: Code status: FULL Dispo - ICU //////////////////////////////////////////////////////////////////////////////// //////////////////// /////////////////////////////////////////////////Attestation: IS PATIENT CRITICALLY ILL ? Is there a high potential of sudden, clinically significant, or life threatening deterioration? YES Is there a need for direct personal assessment and management to treat/prevent multiple vital organfailure/deterioration? YES If this patient is not critically ill, the reason for continued hospitalization is n/a. PATIENT IS CRITICALLY ILL WITH THESE DIAGNOSES BEING MANAGED BY [facility] TEAM: Mechanical ventilation I personally performed 35 minutes of aggregate critical care time exclusive of procedures and teaching. This includes time spent during direct patient evaluation and reassessment, interpreting diagnostic tests, directing life and/or organ supporting interventions and documentation on the unit. Tana Smith MD 04/21/2023 9:00 AM * Chantal Davis, RT - 04/20/2023 11:07 PM EDT AMV Protocol: Yes SBT Protocol: Yes SBT: Not performed Vent Settings: Ventilator Mode: PS/CPAP PEEP Set: 8 FiO2: 30 % PSV: (S) 10 Ventilator Measurements: Resp: 26 Vt Spontaneous: 609 Ve: 9.3 SpO2: 93 % EtCO2: 57 mmHg Airway: 8.0 @ 24 cm at the Teeth. Skin Integrity: WDL Breath Sounds: Coarse Secretions: Small thick pale yellow/shirley Assessment / Events / Plan of the Day: Received patient on VCV 550 x 12 + 10 30%. Patient was transitioned to PS 12/8 30%. Patient went to MRI and was reported to have desat requiring 100% but the pleth. Was not consistent. Patient was lavaged and had small amounts of thick pale yellow/shirley secretions.PS weaned to 10. Etco2 in 50s team aware. VBG @ 0507 - 7.34 49.9 41.1 26.8. Patient placed on heated circuit to receive 3%. Plan: Continue to support patient. Airway clearance order placed. RT José Miguel * Olga Angela D, [facility] - 04/20/2023 5:46 PM EDT Respiratory Care Mechanical Ventilation Note Protocol: AMV SBT: Yes SPO2 Goal: Saturation Goal: > 92% Vent Mode: Volume Control Circuit: HME Vent Mode: Settings: Tidal Volume Set: 550 Resp. Rate Set: 12 Set PEEP (cm H2O): 10 Set FiO2: 30 % VT/K.9 Inspiratory Time: 1 Sec(s) Measurements: Tidal Volume Measured Exp.: 526 Resp: 17 Peak Inspiratory Pressure: 22 Mean Airway Pressure (cm H2O): 13.7 Minute Ventilation Total Exhaled (L/min): 6.3 Plateau Pressure (cm H2O): 21 SpO2: 97 % ETCO2 (mmHg): 44 mmHg Airway: Size: 8.0 ETT Depth: 24 cm @ teeth/gums. Cuff Pressure: MOV Medications: None Lung sounds: Coarse Secretions: Moderate amount of Thick Yellow and shirley. Assessment: Received on VC 550 x 18 +10, 50% RR decreased to 12. Attempted PSV, but pt was not consistently breathing. Bronch done at bedside. Moderate amount of thick yellow secretions seen with bronch. Sample sent tolab. FiO2 weaned to 30% ANGELA BOURGEOIS RCP * Jefferson Angelia S, RD - 04/20/2023 10:14 AM EDT Nutrition Progress Note Myla 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 male with unknown pmhx (no PCP or listed medications) who presents asa transfer from an OSH for evaluation of a right cerebellar IPH. Now s/p R EVD placement 04/17 givenhydrocephalus. Reason for Assessment: ICU Tube Feeding, Follow-up Nutrition Recommendations: Increase to goal rate. Enteral Nutrition: Peptamen AF with a goal rate of 65 ml per hour plus 0 scoops of protein powder daily. This rate is calculated to compensate for unplanned time off feedings due to potential procedures, etc. At goal, this will provide: Peptamen AF Total Volume Per Day: 1300 mL Scoops of Protein: 0 Calories per Day: 1560 Protein per Day: 99 g Free Water mL per Day: 1056 % RDI: 104 % Monitor hydration status on above TFs as they are concentrated. Pt may need additional fluids depending on IVFs, med flushes, p.o. Intake, etc. Mag and Phos with daily BMP or CMP labs; replenish as indicated. Daily weights. BG goal 140-180 in ICU. Propofol at current rate will provide 140 calories from lipid daily, or about 13 grams of fat/day. Monitor BM - goal of 1 every 24-48 hrs while on TF. I was able to discuss plan with provider [facility] 56 team . Current Nutrition Regimen: Active Orders Diet NPO diet (Give Meds) Frequency: Effective Now Number of Occurrences: Until Specified All Active TF Orders: Tubefeeding Orders (From admission, onward) Start Dose/Rate Route Frequency Ordered Stop 04/19/23 1400 tube feeding diet 1,300 mL Per NG tube CONTINUOUS 04/19/23 1313 Average tube feeding provision over past 1 days; 397mL vs daily goal volume of 1300 mL formula (30%of goal) Tolerance or barriers to meeting needs: Holds - extubation and/or re-intubation Assessment: Lab Results Component Value Date NA 136 04/20/2023 K 3.4 (L) 04/20/2023 CL 101 04/20/2023 CO2 27 04/20/2023 BUN 18 04/20/2023 CREATININE 1.03 04/20/2023 ESTGFR 81 04/20/2023 MAGNESIUM 0.75 04/20/2023 CALCIUM 8.5 04/20/2023 PHOS 2.4 (L) 04/20/2023 AST 22 04/19/2023 ALT 19 04/19/2023 ALKPHOS 66 04/19/2023 BILITOT 0.3 04/19/2023 BILIDIR 0.1 04/19/2023 TRIG 82 04/20/2023 HA1C 6.0 (H) 04/19/2023 Lab Results Component Value Date POCGLU 137 04/20/2023 POCGLU 133 04/20/2023 POCGLU 163 04/20/2023 POCGLU 128 04/19/2023 POCGLU 147 04/19/2023 POCGLU 134 04/19/2023 Patient Lines/Drains/Airways Status Active Nutritional LDAs Name Placement date Placement time Site Days Naso/Oral Tube 04/18/23 1145 small bore left nostril 04/18/23 1145 left nostril 2 PIV 04/19/23 0300 22 gauge dorsal arch vein (top of hand), left 04/19/23 0300 -- 1 PIV 04/19/23 1416 20 gauge;1.75 in length cephalic vein (lateral side of arm), left 04/19/23 1416 -- 1 PIV 04/20/23 0115 16 gauge;14 gauge cephalic vein (lateral side of arm), right 04/20/23 0115 -- less than 1 Urethral Catheter 04/20/23 0030 10 10 04/20/23 0030 -- less than 1 EVD (External Ventricular Drain) 04/18/23 0730 04/18/23 0730 -- 2 Oxygen Therapy / Airway Device: Ventilator Shift Pressure Injury Prevention Occiput: No Injury Thoracic Spine: No Injury Sacral: No Injury Ischial - left: No Injury Ischial - right: No Injury Heel - left: No Injury Heel - right: No Injury Elbow - left: No Injury Elbow - right: No Injury Device Sites: BP Cuff, ECG Leads, IV sites, O2 sat monitor Other Sites: right EVD Last Bowel Movement: (UNDERWRITING ASSISTANT) Intake/Output Summary (Last 24 hours) at 04/20/2023 1034 Last data filed at 04/20/2023 1000 Gross per 24 hour Intake 4661.73 ml Output 3985 ml Net 676.73 ml Relevant medications: Continuous propofoL 10 mcg/kg/min (04/20/23 0811) clevidipine 4 mg/hr (04/20/23225) tube feeding diet 25 mL/hr at 04/19/23 2339 dexmedeTOMIDine 1.7 mcg/kg/hr (04/20/23225) Scheduled potassium phosphate 15 mmol Intravenous Once NORepinephrine chlorhexidine 15 mL Oral BID famotidine 20 mg Per OG Tube BID heparin (porcine) 5,000 Units Subcutaneous Q8H YUSUF lisinopriL 40 mg Per NG tube Daily amLODIPine 10 mg Per NG tube Daily lidocaine 1 patch Transdermal Q24H camphor-methyl salicyl-menthoL Topical (Top) BID insulin lispro 1-6 Units Subcutaneous Q4H YUSUF senna-docusate 2 tablet Per NG tube BID thiamine 100 mg Intravenous Daily folic acid 1,000 mcg Per NG tube Daily multivitamin with minerals 1 tablet Per NG tube Daily PHENobarbitaL 0.24 mg/kg/dose ([place]) Oral BID Followed by [START ON 04/21/2023] PHENobarbitaL 0.12 mg/kg/dose ([place]) Oral BID PRN PHENobarbitaL, NORepinephrine, propofoL AND propofoL, acetaminophen, labetaloL, enalaprilat, bisacodyL, magnesium hydroxide, glucose 40% oral geL OR dextrose OR glucagon, polyethyleneglycoL (MIRALAX) oral powder, potassium chloride in water OR potassium chloride in water ORpotassium chloride in water Anthropometrics: Admit Weight: 111.8 kg Estimated body mass index is 38.71 kg/m?? as calculated from the following: Height as of this encounter: 174 cm (5' 8.5). Weight as of this encounter: 117.2 kg (258 lb 6.1 oz). [place] Body Weight (IBW) (kg): 71.37 Wt Readings from Last 10 Encounters: 04/20/23 117.2 kg (258 lb 6.1 oz) Patient Vitals for the past 168 hrs: Weight 04/20/23 0600 117.2 kg (258 lb 6.1 oz) 04/19/23 0600 116.7 kg (257 lb 4.4 oz) 04/18/23 0645 111.8 kg (246 lb 7.6 oz) Weight Source: Bed Estimated / Assessed Needs: Fluid Requirements: Estimated Fluid Requirement Method: Weight Based Method Weight Based Method: 30 Weight Based Calculation: 2142 mL Kcal / K - 1785 Kcal (20 Kcal/Kg - 25 Kcal/Kg) Estimated Protein Needs: 86 g - 107 g (1.2 g/Kg - 1.5 g/Kg) Nutrition intake and intake history / interview: 04/19: Re-intubated. TF at 25 mL/hr today. On low dose propofol. No BM this admission. 04/17: Consulted for TF recommendations. May extubate tomorrow. On some propofol. On alcohol withdrawal protocol - thiamine, folic acid and Thera M ordered. Nutrition Focused Physical Exam: Not performed Reason NFPE Not Performed: Not indicated. Malnutrition Diagnosis: Not identified (Hieu JPEN J Parenteral Enteral Nutr. 2011; 36(3): 273-83) Nutrition to continue to follow up while inpatient Thank you, Angelia Paulino RDN, CNSC, LD Clinical Nutrition * Tana Smith MD - 04/20/2023 9:22 AM EDT ICU PROGRESS NOTE DOA: 04/18/2023 Room: 336/[facility] Length of Stay: 2 ICU Length of Stay 2d 2h Myla Acosta ( ) is a 67 y.o. male with h/o etoh use, undoctored p/w R cerebellar hemorrhage with intraventricular extension, acute obstructive hydrocephalus s/p EVD placement. 24hr events: Hypoxemic to 80s, reintubated. CTH repeated with stable cerebellar hematoma, improvement in IVH burden and ventricular decompression on the left, left medial parietal hypodensity c/f infarction. EVD 400cc, ICP 7-10. Medications: Scheduled Meds: potassium phosphate 15 mmol Intravenous Once NORepinephrine chlorhexidine 15 mL Oral BID famotidine 20 mg Per OG Tube BID heparin (porcine) 5,000 Units Subcutaneous Q8H YUSUF lisinopriL 40 mg Per NG tube Daily amLODIPine 10 mg Per NG tube Daily lidocaine 1 patch Transdermal Q24H camphor-methyl salicyl-menthoL Topical (Top) BID insulin lispro 1-6 Units Subcutaneous Q4H YUSUF senna-docusate 2 tablet Per NG tube BID thiamine 100 mg Intravenous Daily folic acid 1,000 mcg Per NG tube Daily multivitamin with minerals 1 tablet Per NG tube Daily PHENobarbitaL 0.24 mg/kg/dose ([place]) Oral BID Followed by [START ON 04/21/2023] PHENobarbitaL 0.12 mg/kg/dose ([place]) Oral BID Continuous Infusions: propofoL 10 mcg/kg/min (04/20/23 0811) clevidipine 4 mg/hr (04/20/23225) tube feeding diet 25 mL/hr at 04/19/23 2339 dexmedeTOMIDine 1.7 mcg/kg/hr (04/20/23225) PRN Meds:.PHENobarbitaL, NORepinephrine, propofoL AND propofoL, acetaminophen, labetaloL, enalaprilat, bisacodyL, magnesium hydroxide, glucose 40% oral geL OR dextrose OR glucagon, polyethylene glycoL (MIRALAX) oral powder, potassium chloride in water OR potassium chloride in water OR potassium chloride in water Vitals: Temp: [36.5 ??C (97.7 ??F)-37.9 ??C (100.2 ??F)] Heart Rate: [64-113] Resp: [12-37] BP: (102-174)/(75-143) SpO2: [83 %-99 %] Heart Rate from SpO2: [64 bpm-111 bpm] Ventilator Settings: VC 12 550 50% 10 Physical Exam: Cons: NAD, intubated with sedation paused Cardiac: RRR S1S2 Pulm: CTAB, no W/R/R GI: S/NT/ND, BS+ MSK: WWP, no C/C/E Neuro Exam: MS: Eyes open to voice, tracking, following commands CN: PERRL, EOMI, blink to threat bilaterally, +c/g Motor: Normal bulk and tone throughout, 5/5 throughout Coord: RUE dysmetria I/Os: Intake/Output Summary (Last 24 hours) at 04/20/2023 0929 Last data filed at 04/20/2023 0800 Gross per 24 hour Intake 4886.63 ml Output 4110 ml Net 776.63 ml Labs: Last 3 wbc, hgb, hct plt Recent Labs 04/20/23 0110 04/19/23 0035 04/18/23 0650 WBC 10.6* 12.0* 10.6* HGB 13.5* 14.3 14.7 HCT 39.6* 41.7 42.9 PLATELET 168 184 214 Last 3 Lytes Recent Labs 04/20/23 0110 04/19/23 1200 04/19/23 0035 04/18/23 0650 NA 136 -- 142 136 K 3.4* 3.3* 3.8 3.2* CL 101 -- 103 96* CO2 27 -- 20* 28 BUN 18 -- 17 16 CREATININE 1.03 -- 1.09 1.29 Last 3 LFTs Recent Labs 04/19/23 0035 04/18/23 0650 AST 22 32 ALT 19 26 ALKPHOS 66 74 BILITOT 0.3 0.5 BILIDIR 0.1 -- Last Ca, Mg, Phos Recent Labs 04/20/23 011 CALCIUM 8.5 PHOS 2.4* MAGNESIUM 0.75 Last 3 Coags Recent Labs 04/19/23 0035 04/18/23 0650 PT 12.2 12.4 INR 1.1 1.1 PTT -- 38* Last 3 ProBNP, Trop, CK No results for input(s): CK, TROPONINT, PROBNP in the last 168 hours. Last 3 TFT Recent Labs 04/19/23 0035 TSH 0.74 Last 3 Lipids Recent Labs 04/20/23 0110 04/19/23 0035 CHLPL -- 220 HDL -- 86 LDLDIRECT -- 129 TRIG 82 78 Last 3 HgbA1C Recent Labs 04/19/23 003 HA1C 6.0* Micro: - None Imaging/Studies: - I have reviewed all imaging for this admission. Assessment/Plan: Neuro - R cerebellar hemorrhage, likely HTNive, acute obstructive hydrocephalus s/p R frontal EVD placement, etoh use disorder - q1 neurochecks - Phenobarbital protocol for etoh withdrawal - EVD open at 10, mgmnt per NSGY - MRI brain w/wo pending - Thiamine, folate, multiv - Analgesia: Tylenol - Precedex for agitation - DC Seroquel CV - Aortic root dilation (4.5cm) - SBP goal < 160, MAP > 65 - labetalol, hydralazine for SBP > 160 - if MAP sustained < 65, IVF, consider pressors - TTE with WNL - c/w lisinopril 40mg, amlodipine 10mg - OP follow-up for aortic root dilation Pulm - Acute hypoxemic respiratory failure 2/2 aspiration s/p reintubation - Goal PaO2 > 60, paCO2 35-45, O2 sats > 92% - Continue chest PT/pulm toilet - Ventilator liberation protocol - VAP precautions - Airway clearance protocol - Bronch today for mucus plugging GI - - NPO. Start TF after bronch - maintain bowel reg - GI ppx with H2B FEN/ - Anion gap metabolic acidosis likely alcoholic vs starvation ketosis - maintain euvolemia, I=O - Goal Na 135-145, K > 4, Mg > 1 - ICU potassium repletion protocol - Rebolledo for I/Os Heme - - goal Hgb > 7, INR < 1.5, Platelets > 10k - SCDs, chemoppx per NSGY Endo - - goal glucose 120-180 --> Accuchecks and ISS - A1C 6 ID - afebrile, no leukocytosis - Monitor off antibiotics - Reculture q72hr for temp > 101F --> UA, blood cx, sputum cx, CSF cx, CXR - acetaminophen PRN Core: Code status: FULL Dispo - ICU //////////////////////////////////////////////////////////////////////////////// //////////////////// /////////////////////////////////////////////////Attestation: IS PATIENT CRITICALLY ILL ? Is there a high potential of sudden, clinically significant, or life threatening deterioration? YES Is there a need for direct personal assessment and management to treat/prevent multiple vital organfailure/deterioration? YES If this patient is not critically ill, the reason for continued hospitalization is n/a. PATIENT IS CRITICALLY ILL WITH THESE DIAGNOSES BEING MANAGED BY CCS TEAM: Mechanical ventilation I personally performed 35 minutes of aggregate critical care time exclusive of procedures and teaching. This includes time spent during direct patient evaluation and reassessment, interpreting diagnostic tests, directing life and/or organ supporting interventions and documentation on the unit. Tana Smith MD 04/20/2023 9:29 AM * Delaney Gray OT - 04/20/2023 9:17 AM EDT Occupational Therapy Note Document Type: (P) contact Total Minutes, Occupational Therapy: (P) 0 Reason: Chart reviewed. Patient reintubated this morning and not medically ready for therapy this morning. OT to follow-up at a later time. Pager: [phone] Delaney Gray OT 04/20/2023 Occupational Therapy Rehabilitation Department * Aylin Castano, PT - 04/20/2023 9:15 AM EDT Images from the original note were not included. 04/20/23 0915 Evaluation & Treatment Document Type contact Total Minutes, Physical Therapy 0 Comment, Session Not Performed Checked to see patient for PT evaluation; however, patient was emergently re-intubated last night and is currently sedated. PT will follow and initiate when ready. Aylin Castano DPT Board-Certified Clinical Specialist in Geriatric Physical Therapy Board-Certified Clinical Specialist in Neurologic Physical Therapy Inpatient/outpatient Rehab [facility] * Tiarra Vasquez SLP - 04/20/2023 9:01 AM EDT Speech Pathology Contact Note Chart reviewed. Patient was re-intubated overnight for hypoxic respiratory failure with secretion involvement (see imaging below). He is not currently appropriate for TREASURY CONSULTANT intervention. We will continue to follow with plan for swallow evaluation post-extubation. XR Chest (04/20/2023) IMPRESSION 1. Endotracheal tube tip projects over the lower trachea 2 cm from the nichole. 2. Nonspecific left retrocardiac opacity with truncation of the bronchial air column suspicious formucous plugging versus aspiration. 3. Left lower lobe opacity either lobar atelectasis versus pneumonia. 4. Nonspecific peribronchial thickening/cuffing may represent interstitial edema versus infectious/inflammatory bronchiolitis. CT Head (04/20/2023) IMPRESSION 1. Similar quantity of moderate volume intraventricular blood products allowing for redistribution. 2. Unchanged size of right cerebellar intraparenchymal hemorrhage in the region of the dentate nucleus. 3. Unchanged caliber of the ventricular system. 4. Infarct-related change involving the posterior medial left parietal lobe. Suggest brain MRI for further characterization. Please secure chat with questions, thanks! Tiarra Vasquez, , CCC-TREASURY CONSULTANT Speech-Language Pathologist Inpatient Rehabilitation Pager # [phone] * Jovita Douglas MD - 04/20/2023 6:31 AM EDT NEUROSURGERY PROGRESS NOTE ID: Myla 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 male largely without routine medical care and not on any medications, presenting in transfer from OSH for R cerebellar IPH and intraventricular extension. S/p R EVD placement for hydrocephalous HD# 2 POD # INTERVAL HX/ROS: Re-intubated overnight emergently suspected for inability to clear thick secretions, though was noted to be following commands briskly just prior to paralytic administration for intubation. Post-intubation head CT, done with concern for underlying neurologic decline resulting in need for re-intubation, demonstrating improved ventricular caliber, though also some signs of infarct in the left medial parietal region that does not appear new compared to head Cts done earlier in this hospital course. Patient returned to following commands after paralytic wore off. Left EVD placement not warranted. MEDICATIONS: Scheduled Meds: magnesium sulfate 2 g Intravenous Q2H potassium phosphate 15 mmol Intravenous Once NORepinephrine chlorhexidine 15 mL Oral BID famotidine 20 mg Per OG Tube BID lisinopriL 40 mg Per NG tube Daily amLODIPine 10 mg Per NG tube Daily QUEtiapine 50 mg Per NG tube BID lidocaine 1 patch Transdermal Q24H camphor-methyl salicyl-menthoL Topical (Top) BID insulin lispro 1-6 Units Subcutaneous Q4H YUSUF senna-docusate 2 tablet Per NG tube BID thiamine 100 mg Intravenous Daily folic acid 1,000 mcg Per NG tube Daily multivitamin with minerals 1 tablet Per NG tube Daily PHENobarbitaL 0.24 mg/kg/dose ([place]) Oral BID Followed by [START ON 04/21/2023] PHENobarbitaL 0.12 mg/kg/dose ([place]) Oral BID Continuous Infusions: propofoL (Diprivan) (10 mg/mL) infusion 0-50 mcg/kg/min (Adjusted) Intravenous Continuous ### clevidipine (Cleviprex) (0.5 mg/mL) infusion 0-16 mg/hr Intravenous Continuous ### tube feeding diet 1,300 mL Per NG tube Continuous ### dexmedeTOMIDine (Precedex) (4 mcg/mL) in sodium chloride 0.9% 100 mL infusion 0- 1.7 mcg/kg/hr (Adjusted) Intravenous Continuous ### PRN Meds: PHENobarbitaL, NORepinephrine, propofoL AND propofoL, acetaminophen, labetaloL, enalaprilat, bisacodyL, magnesium hydroxide, glucose 40% oral geL OR dextrose OR glucagon, polyethylene glycoL (MIRALAX) oral powder, potassium chloride in water OR potassium chloride in water OR potassium chloride in water EXAM: Vitals: Temp: [36.5 ??C (97.7 ??F)-37.9 ??C (100.2 ??F)] Heart Rate: [67-113] Resp: [13-37] BP: (102-174)/(73-143) SpO2: [83 %-99 %] Heart Rate from SpO2: [67 bpm-111 bpm] BMI: Weight: 117.2 kg (258 lb 6.1 oz) (04/20/23 0600) I/O: I/O last 3 completed shifts: In: 5910.6 [I.V.:5130.6; NG/GT:270; IV Piggyback:300] Out: 4710 [Urine:4120; Other:590] EVD @ 10H2O = 352cc output, ICP 8-12 GEN: NEURO:GCS [id number] Forced downward gaze No facial asymmetry MOTOR: RUE:FC thumbs up LUE: Purposeful movement, localizing to tube briskly RLE: FC wiggles toes LLE: FC wiggles toes LABS: Recent Labs 04/20/23 0110 04/19/23 0035 04/18/23 0650 WBC 10.6* 12.0* 10.6* HGB 13.5* 14.3 14.7 PLATELET 168 184 214 Recent Labs 04/20/23 0110 04/19/23 1200 04/19/23 0035 04/18/23 0650 NA 136 -- 142 136 K 3.4* 3.3* 3.8 3.2* CL 101 -- 103 96* CO2 27 -- 20* 28 BUN 18 -- 17 16 CREATININE 1.03 -- 1.09 1.29 Recent Labs 04/19/23 0035 04/18/23 0650 PT 12.2 12.4 INR 1.1 1.1 IMAGING: [facility] 04/18: IMPRESSION 1. Interval decompression of the right lateral ventricle with persistent enlargement of the left lateral ventricle and resulting left to right subfalcine shift. 2. Stable size of the right cerebellar hemisphere parenchymal hemorrhage in the region of the dentate nucleus. Assessment: Myla 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 male largely without routine medical care and not on any medications, presenting in transfer from OSH for R cerebellar IPH and intraventricular extension. S/p R EVD placement for hydrocephalous. Problem List: IPH IVH Hydrocephalous Plan: - Q1HNC - Pain control - Imaging: complete - SBP<160 - Monitor EVD/ICP per protocol - DVT ppx: SCDs, Ok for SQH today - Current Diet: NPO diet (Give Meds) - Further care per NCCU PLEASE PAGE [phone] WITH QUESTIONS Active Hospital Problems Diagnosis ICH (intracerebral hemorrhage) Resolved Hospital Problems No resolved problems to display. There are no active non-hospital problems to display for this patient. Jovita Douglas MD 04/20/2023 * Royal Manzano, MILLER APPRENTICE - 04/20/2023 2:16 AM EDT AMV Protocol: Yes SBT Protocol: Yes Vent Settings: Ventilator Mode: VC Tidal Volume Set: 550 Resp Rate Set: 18 PEEP Set: (S) 10 FiO2: 50 % Ventilator Measurements: Resp: 18 Vt Exhaled: 527 PIP: 27 MAP: 16.1 Plateau Press: 24 Ve: 9.3 PEEP: 12 cmH20 SpO2: 97 % EtCO2: 36 mmHg Airway: 8.0 @ 26 cm at the Teeth. Skin Integrity: WDL Last Chest X-ray: Results for orders placed during the hospital encounter of 04/18/23 XR Chest One View Narrative EXAMINATION: XR CHEST ONE VIEW CLINICAL HISTORY: confirm ETT TECHNIQUE: 1 view of the chest COMPARISON: 04/18/2023 FINDINGS: Support devices: Endotracheal tube is 1.1 cm above the nichole. New enteric tube courses into the stomach although distally is excluded. The cardiac silhouette is stable. Low lung volumes and bibasilar atelectasis. No pneumothorax. Impression Endotracheal tube is 1.1 cm above the nichole. Recommend retraction 2-3 cm for optimal positioning. Breath Sounds: Diminished Secretions: Small, Shirley, White, Thin ASSESSMENT: Patient received on NC 4L, Patient intermittently desalting overnight 2353: Patient placed on HFM 30L 40% 0320: Patient WOB elevated with frequent desats to the (80's-70's) VBG 7.42 0300: Stat airway called due to hypoxic respiratory failure with secretion involvement, Patient intubated @ 0333 with an 8.0 tube 26@ T. Chest X-ray ordered. 0356: Stat CT transport. 0449: Fio2 weaned to 50% with sat of 95%. 0456: PEEP weaned to 10 (ABG to bne drawn @ 0530) 0540: ABG 7.46/36/65/26 PLAN: continue to monitor and support within AMV/SBT protocol. Wean patient as tolerated. Royal Manznao RCP * Hanna Vela RCP - 04/19/2023 3:16 PM EDT 04/19/23 1446 Oxygen Therapy O2 Device NC O2 Flow Rate (L/min) 6 L/min SpO2 95 % Resp 13 Received Pt on PSV this morning and had passed his morning SBT. Pt extubated to 6l NC, then placed on HFNC for sat 88%. Lasix given and was able to place back on the above low flow NC. Will continue to monitor closely. * Tiarra Vasquez TREASURY CONSULTANT - 04/19/2023 3:13 PM EDT Speech Pathology Contact Note Chart reviewed. Patient is currently agitated and being worked up for potential changes in mental status. We will defer our evaluation to tomorrow morning. In the meantime, patient may have small volumes of water via oral swab or single ice chips for comfort following oral care. Please secure chat with questions, thanks! Tiarra Vasquez MS, [facility]-TREASURY CONSULTANT Speech-Language Pathologist Inpatient Rehabilitation Pager # [phone] * Delaney Gray OT - 04/19/2023 1:51 PM EDT Occupational Therapy Note Document Type: (P) contact Total Minutes, Occupational Therapy: (P) 0 Reason: Chart reviewed. Attempted to see at 914 but patient planned to be extubated shortly. Attempted again at 1351 but not medically ready at this time. OT to follow-up tomorrow. Pager: [phone] Delaney Gray OT 04/19/2023 Occupational Therapy Rehabilitation Department * Aylin Castano, PT - 04/19/2023 9:15 AM EDT Images from the original note were not included. 04/19/23 0915 Evaluation & Treatment Document Type contact Total Minutes, Physical Therapy 0 Comment, Session Not Performed PT consult received, chart reviewed. Checked on patient x 2 today; however, per RN patient not ready. Will check back tomorrow morning. Thank you for the consult! Aylin Castano DPT Board-Certified Clinical Specialist in Geriatric Physical Therapy Board-Certified Clinical Specialist in Neurologic Physical Therapy Inpatient/outpatient Rehab [facility] * Tana Smith MD - 04/19/2023 8:57 AM EDT ICU PROGRESS NOTE DOA: 04/18/2023 Room: [address] [place] [address] Length of Stay: 1 ICU Length of Stay 1d 2h Myla Acosta ( ) is a 67 y.o. male with h/o etoh use, undoctored p/w R cerebellar hemorrhage with intraventricular extension, acute obstructive hydrocephalus s/p EVD placement. 24hr events: CTH completed for lethargy, decompressed ventricles on the right, stable hematoma. Medications: Scheduled Meds: sodium chloride 0.9 % (flush) 5 mL Intravenous BID chlorhexidine 15 mL Oral BID insulin lispro 1-6 Units Subcutaneous Q4H YUSUF lisinopriL 20 mg Per NG tube Daily senna-docusate 2 tablet Per NG tube BID famotidine 20 mg Per NG tube BID thiamine 100 mg Intravenous Daily folic acid 1,000 mcg Per NG tube Daily multivitamin with minerals 1 tablet Per NG tube Daily PHENobarbitaL 0.48 mg/kg/dose ([place]) Oral BID Followed by [START ON 04/20/2023] PHENobarbitaL 0.24 mg/kg/dose ([place]) Oral BID Followed by [START ON 04/21/2023] PHENobarbitaL 0.12 mg/kg/dose ([place]) Oral BID Continuous Infusions: niCARdipine 5 mg/hr (04/19/23 0838) sodium chloride 0.9% 1,000 mL (04/19/23 0730) propofoL 30 mcg/kg/min (04/19/23 8045) PRN Meds:.fentaNYL (PF), sodium chloride 0.9 % (flush), lidocaine, labetaloL, enalaprilat, bisacodyL, magnesium hydroxide, glucose 40% oral geL OR dextrose OR glucagon, polyethylene glycoL (MIRALAX) oral powder, propofoL AND propofoL, potassium chloride in water OR potassium chloride in water OR potassium chloride in water, acetaminophen OR [DISCONTINUED] acetaminophen OR [DISCONTINUED] acetaminophen, PHENobarbitaL Vitals: Temp: [36.5 ??C (97.7 ??F)-37.4 ??C (99.3 ??F)] Heart Rate: [74-106] Resp: [14-26] BP: (117-169)/(66-102) SpO2: [91 %-98 %] Heart Rate from SpO2: [74 bpm-107 bpm] Ventilator Settings: PS 5/5 35% Physical Exam: Cons: NAD, intubated with sedation paused Cardiac: RRR S1S2 Pulm: CTAB, no W/R/R GI: S/NT/ND, BS+ MSK: WWP, no C/C/E Neuro Exam: MS: Eyes open to voice, tracking, following commands CN: PERRL, EOMI, blink to threat bilaterally, +c/g Motor: Normal bulk and tone throughout, 5/5 throughout Coord: RUE dysmetria I/Os: Intake/Output Summary (Last 24 hours) at 04/19/2023 0857 Last data filed at 04/19/2023 0800 Gross per 24 hour Intake 3490.19 ml Output 1678 ml Net 1812.19 ml Labs: Last 3 wbc, hgb, hct plt Recent Labs 04/19/23 0035 04/18/23 0650 WBC 12.0* 10.6* HGB 14.3 14.7 HCT 41.7 42.9 PLATELET 184 214 Last 3 Lytes Recent Labs 04/19/23 0035 04/18/23 0650 NA 142 136 K 3.8 3.2* CL 103 96* CO2 20* 28 BUN 17 16 CREATININE 1.09 1.29 Last 3 LFTs Recent Labs 04/19/23 0035 04/18/23 0650 AST 22 32 ALT 19 26 ALKPHOS 66 74 BILITOT 0.3 0.5 BILIDIR 0.1 -- Last Ca, Mg, Phos Recent Labs 04/19/2334 CALCIUM 8.8 PHOS 3.5 MAGNESIUM 0.66* Last 3 Coags Recent Labs 04/19/23 0035 04/18/23 0650 PT 12.2 12.4 INR 1.1 1.1 PTT -- 38* Last 3 ProBNP, Trop, CK No results for input(s): CK, TROPONINT, PROBNP in the last 168 hours. Last 3 TFT Recent Labs 04/19/2334 TSH 0.74 Last 3 Lipids Recent Labs 04/19/2334 CHLPL 220 HDL 86 LDLDIRECT 129 TRIG 78 Last 3 HgbA1C Recent Labs 04/19/23 003 HA1C 6.0* Micro: - None Imaging/Studies: - I have reviewed all imaging for this admission. Assessment/Plan: Neuro - R cerebellar hemorrhage, likely HTNive, acute obstructive hydrocephalus s/p R frontal EVD placement, etoh use disorder - q1 neurochecks - Phenobarbital protocol - EVD open at 10, mgmnt per NSGY - Thiamine, folate, multiv - Analgesia: Tylenol CV - - SBP goal < 160, MAP > 65 - labetalol, hydralazine for SBP > 160 - if MAP sustained < 65, IVF, consider pressors - TTE scheduled Pulm - - Goal PaO2 > 60, paCO2 35-45, O2 sats > 92% - Continue chest PT/pulm toilet - Ventilator liberation protocol - VAP precautions - Nebs PRN - Extubate GI - - NPO, TREASURY CONSULTANT ordered. - maintain bowel reg - GI ppx with H2B FEN/ - Anion gap metabolic acidosis likely alcoholic vs starvation ketosis - maintain euvolemia, I=O - Goal Na 135-145, K > 4, Mg > 1 - ICU potassium repletion protocol - DC rebolledo Heme - - goal Hgb > 7, INR < 1.5, Platelets > 10k - SCDs, chemoppx per NSGY Endo - - goal glucose 120-180 --> Accuchecks and ISS - A1C 6 ID - - Monitor off antibiotics - Reculture q72hr for temp > 101F --> UA, blood cx, sputum cx, CSF cx, CXR - acetaminophen PRN Core: Code status: FULL Dispo - ICU //////////////////////////////////////////////////////////////////////////////// //////////////////// /////////////////////////////////////////////////Attestation: IS PATIENT CRITICALLY ILL ? Is there a high potential of sudden, clinically significant, or life threatening deterioration? YES Is there a need for direct personal assessment and management to treat/prevent multiple vital organfailure/deterioration? YES If this patient is not critically ill, the reason for continued hospitalization is n/a. PATIENT IS CRITICALLY ILL WITH THESE DIAGNOSES BEING MANAGED BY CCS TEAM: Mechanical ventilation I personally performed 35 minutes of aggregate critical care time exclusive of procedures and teaching. This includes time spent during direct patient evaluation and reassessment, interpreting diagnostic tests, directing life and/or organ supporting interventions and documentation on the unit. Tana Smith MD 04/19/2023 8:57 AM * Royal Rothman MD - 04/19/2023 7:01 AM EDT NEUROSURGERY PROGRESS NOTE ID: Myla 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 male largely without routine medical care and not on any medications, presenting in transfer from OSH for R cerebellar IPH and intraventricular extension. S/p R EVD placement for hydrocephalous HD# 1 POD # INTERVAL HX/ROS: Remains intubated CTH with appropriate placement. L lateral ventricle remains enlarged MEDICATIONS: Scheduled Meds: sodium chloride 0.9 % (flush) 5 mL Intravenous BID chlorhexidine 15 mL Oral BID insulin lispro 1-6 Units Subcutaneous Q4H YUSUF lisinopriL 20 mg Per NG tube Daily senna-docusate 2 tablet Per NG tube BID famotidine 20 mg Per NG tube BID thiamine 100 mg Intravenous Daily folic acid 1,000 mcg Per NG tube Daily multivitamin with minerals 1 tablet Per NG tube Daily PHENobarbitaL 0.48 mg/kg/dose ([place]) Oral BID Followed by [START ON 04/20/2023] PHENobarbitaL 0.24 mg/kg/dose ([place]) Oral BID Followed by [START ON 04/21/2023] PHENobarbitaL 0.12 mg/kg/dose ([place]) Oral BID Continuous Infusions: niCARdipine (Cardene) (0.2 mg/mL) in sodium chloride 200 mL infusion 0-15 mg/hr Intravenous Continuous ### sodium chloride 0.9% infusion 1,000 mL Intravenous Continuous ### propofoL (Diprivan) (10 mg/mL) infusion 0-50 mcg/kg/min Intravenous Continuous ### PRN Meds: sodium chloride 0.9 % (flush), lidocaine, labetaloL, enalaprilat, bisacodyL, magnesium hydroxide, glucose 40% oral geL OR dextrose OR glucagon, polyethylene glycoL (MIRALAX) oral powder, propofoL AND propofoL, potassium chloride in water OR potassium chloride in water OR potassium chloride in water, acetaminophen OR [DISCONTINUED] acetaminophen OR [DISCONTINUED] acetaminophen, PHENobarbitaL EXAM: Vitals: Temp: [36.3 ??C (97.3 ??F)-37.4 ??C (99.3 ??F)] Heart Rate: [68-96] Resp: [12-26] BP: (117-169)/(66-102) SpO2: [91 %-100 %] Heart Rate from SpO2: [63 bpm-95 bpm] BMI: Weight: 116.7 kg (257 lb 4.4 oz) (04/19/23 0600) I/O: I/O last 3 completed shifts: In: 3678.1 [I.V.:3528.1; NG/GT:60] Out: 2443 [Urine:2054; Other:388] EVD @ 10H2O = 352cc output, ICP 5-13 GEN: NEURO:GCS E3VtM6 PERRL. Does not participate in EOM exam No facial asymmetry MOTOR: RUE:FC thumbs up LUE:FC thumbs up RLE: FC wiggles toes LLE: FC wiggles toes No pronator drift LABS: Recent Labs 04/19/23 0035 04/18/23 0650 WBC 12.0* 10.6* HGB 14.3 14.7 PLATELET 184 214 Recent Labs 04/19/235 04/18/23 0650 NA 142 136 K 3.8 3.2* CL 103 96* CO2 20* 28 BUN 17 16 CREATININE 1.09 1.29 Recent Labs 04/19/23 0035 04/18/23 0650 PT 12.2 12.4 INR 1.1 1.1 IMAGING: [facility] 04/18: IMPRESSION 1. Interval decompression of the right lateral ventricle with persistent enlargement of the left lateral ventricle and resulting left to right subfalcine shift. 2. Stable size of the right cerebellar hemisphere parenchymal hemorrhage in the region of the dentate nucleus. Assessment: Myla 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 male largely without routine medical care and not on any medications, presenting in transfer from OSH for R cerebellar IPH and intraventricular extension. S/p R EVD placement for hydrocephalous Problem List: IPH IVH Hydrocephalous Plan: - Q1HNC - Pain control - Imaging: complete - SBP<140 - Monitor EVD/ICP per protocol - DVT ppx: SCDs, Hold anticoagulation/antiplatelet - Current Diet: NPO diet (Give Meds) - Further care per NCCU PLEASE PAGE [phone] WITH QUESTIONS Active Hospital Problems Diagnosis ICH (intracerebral hemorrhage) Resolved Hospital Problems No resolved problems to display. There are no active non-hospital problems to display for this patient. Royal Rothman MD 04/19/2023 * Steve Gurrola RN - 04/19/2023 4:38 AM EDT OUTCOME EVALUATION NOTE: OUTCOME SUMMARY: Pt received intubated and sedated. Sedation weaned and patient woke following x4. Whenever pt awakept attempting to pull ETT. Safety maintained. L eye noted to be deviated up. NCCU team aware and neurosurg notified. Taken to CT without problems. Per neurosurg ctm neuro exam. PLAN MOVING FORWARD: Neuro q1 ICP q1 VS q1 SBP <140 * Royal Manzano MILLER APPRENTICE - 04/19/2023 2:01 AM EDT AMV Protocol: Yes SBT Protocol: Yes SBT: PASSED Vent Settings: Ventilator Mode: PS/CPAP PEEP Set: 5 FiO2: 25 % PSV: (S) 8 Ventilator Measurements: Resp: 20 Vt Spontaneous: 310 Ve: 7.9 SpO2: 91 % EtCO2: 50 mmHg Airway: 8.0 @ 26 cm at the Teeth. Skin Integrity: WDL Breath Sounds: Diminished Secretions: Small, clear, thin. Assessment: Myla Acosta is a 67 year old male with unknown pmhx (per chart review, does not appear to have a PCP or follow up within the [facility] system) who presents as a transfer from an OSH for evaluation of a right cerebellar IPH. Per report, LKN was 04/17/23 at 2100, he woke up c/o vertigo and nausea/vomiting. Subsequent imaging studies revealed a right cerebellar IPH with ANIL. Initial Bps were noted to be in the 200s. Was started on a nicard gtt for BP control. Was subsequently intubated atthe OSH for airway protection given worsening somnolence. Patient Received on PSV 5/5 30%. 2026: Patient PS elevated to 8 due to Tv's of 4ml/kg. 0030: Patient nuro change Stat CT vent transport. Per Radiologist Potential herniation. 0546: SBT Assessment RASS (Ann Agitation-Sedation Scale): -2-->light sedation: Initial Measurements: HR:89 RR: 21 VT: 401 MV: 8.1 SpO2: 93 ETCO2: 39 0606: HR of 100 for less than 1 minute. SBT Vent Settings: FiO2: 35%, PSV: 0, and PEEP: 5 0616: 30 minute measurements: HR: 97 RR: 26 VT: 452 MV: 10.9 SpO2: 92 ETCO2: 38 Plan: holding on on SBT due to instability of patient. Royal Manzano RCP * Sugar Hurley RN - 04/18/2023 6:40 PM EDT OUTCOME EVALUATION NOTE: OUTCOME SUMMARY: Patient remains intubated and sedated on prop gtt. EVD placed bedside this morning. CTH obtained. Nicard gtt titrated to maintain SBP<140. Phenobarb taper started. AUOP with rebolledo in place. DHT placed and placement verified. K repleted per order set. VSS. Safety maintained. PLAN MOVING FORWARD: Q1 Neuro checks. Q1 VS. Q2 I&Os. Q4 BSG. SBP<140. Recheck K @2049. CTH @0500 04/18. Problem: Restraint, Nonbehavioral (Nonviolent) Goal: Discontinuation Criteria Achieved Outcome: Ongoing (Interventions Implemented as Appropriate) Problem: Adjustment to Illness (Stroke, Hemorrhagic) Goal: Optimal Coping Outcome: Ongoing (Interventions Implemented as Appropriate) Problem: Bowel Elimination Impaired (Stroke, Hemorrhagic) Goal: Effective Bowel Elimination Outcome: Ongoing (Interventions Implemented as Appropriate) Problem: Cerebral Tissue Perfusion (Stroke, Hemorrhagic) Goal: Optimal Cerebral Tissue Perfusion Outcome: Ongoing (Interventions Implemented as Appropriate) Problem: Cognitive Impairment (Stroke, Hemorrhagic) Goal: Optimal Cognitive Function Outcome: Ongoing (Interventions Implemented as Appropriate) Problem: Communication Impairment (Stroke, Hemorrhagic) Goal: Effective Communication Skills Outcome: Ongoing (Interventions Implemented as Appropriate) Problem: Functional Ability Impaired (Stroke, Hemorrhagic) Goal: Optimal Functional Ability Outcome: Ongoing (Interventions Implemented as Appropriate) Problem: Pain (Stroke, Hemorrhagic) Goal: Acceptable Pain Control Outcome: Ongoing (Interventions Implemented as Appropriate) Problem: Respiratory Compromise (Stroke, Hemorrhagic) Goal: Effective Oxygenation and Ventilation Outcome: Ongoing (Interventions Implemented as Appropriate) Problem: Sensorimotor Impairment (Stroke, Hemorrhagic) Goal: Improved Sensorimotor Function Outcome: Ongoing (Interventions Implemented as Appropriate) Problem: Swallowing Impairment (Stroke, Hemorrhagic) Goal: Oral Intake without Aspiration Outcome: Ongoing (Interventions Implemented as Appropriate) Problem: Urinary Elimination Impaired (Stroke, Hemorrhagic) Goal: Effective Urinary Elimination Outcome: Ongoing (Interventions Implemented as Appropriate) Problem: Fall Injury Risk Goal: Absence of Fall and Fall-Related Injury Outcome: Ongoing (Interventions Implemented as Appropriate) * Angelia Paulino, RD - 04/18/2023 4:56 PM EDT Nutrition Consult Note Myla 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 male with unknown pmhx (no PCP or listed medications) who presents asa transfer from an OSH for evaluation of a right cerebellar IPH. Now s/p R EVD placement 04/17 givenhydrocephalus. Reason for Assessment: ICU Tube Feeding, Consult Nutrition Recommendations: Below pended Enteral Nutrition: Peptamen AF with a goal rate of 65 ml per hour plus 0 scoops of protein powder daily. This rate is calculated to compensate for unplanned time off feedings due to potential procedures, etc. At goal, this will provide: Peptamen AF Total Volume Per Day: 1300 mL Scoops of Protein: 0 Calories per Day: 1560 Protein per Day: 99 g Free Water mL per Day: 1056 % RDI: 104 % Monitor hydration status on above TFs as they are concentrated. Pt may need additional fluids depending on IVFs, med flushes, p.o. Intake, etc. Mag and Phos with daily BMP or CMP labs. Daily weights. BG goal 140-180 in ICU. Propofol at current rate will provide 353 calories from lipid daily, or about 32 grams of fat/day. Monitor TG while on Propofol. I was able to discuss plan with provider [place] [id number] team . Current Nutrition Regimen: Active Orders Diet NPO diet (Hold Meds) Frequency: Effective Now Number of Occurrences: Until Specified Assessment: Lab Results Component Value Date NA 136 04/18/2023 K 3.2 (L) 04/18/2023 CL 96 (L) 04/18/2023 CO2 28 04/18/2023 BUN 16 04/18/2023 CREATININE 1.29 04/18/2023 ESTGFR 62 04/18/2023 CALCIUM 9.4 04/18/2023 AST 32 04/18/2023 ALT 26 04/18/2023 ALKPHOS 74 04/18/2023 BILITOT 0.5 04/18/2023 Lab Results Component Value Date POCGLU 152 04/18/2023 POCGLU 172 04/18/2023 POCGLU 215 (H) 04/18/2023 POCGLU 179 04/18/2023 Patient Lines/Drains/Airways Status Active Nutritional LDAs Name Placement date Placement time Site Days Naso/Oral Tube 04/18/23 1145 small bore left nostril 04/18/23 1145 left nostril less than 1 PIV 04/18/23 0630 18 gauge basilic vein (medial side of arm), right 04/18/23 0630 -- less than 1 PIV 04/18/23 0640 20 gauge basilic vein (medial side of arm), left 04/18/23 0640 -- less than 1 Urethral Catheter 04/18/23 0630 04/18/23 0630 -- less than 1 EVD (External Ventricular Drain) 04/18/23 0730 04/18/23 0730 -- less than 1 Oxygen Therapy / Airway Device: Ventilator Shift Pressure Injury Prevention Occiput: No Injury Thoracic Spine: No Injury Sacral: No Injury Ischial - left: No Injury Ischial - right: No Injury Heel - left: No Injury Heel - right: No Injury Elbow - left: No Injury Elbow - right: No Injury Device Sites: BP Cuff, ECG Leads, ETT, rebolledo, IV sites, O2 sat monitor, SCD's / venodynes Other Sites: EVD Intake/Output Summary (Last 24 hours) at 04/18/2023 1656 Last data filed at 04/18/2023 1616 Gross per 24 hour Intake 1145.77 ml Output 1664 ml Net -518.23 ml Relevant medications: Continuous niCARdipine 5 mg/hr (04/18/23 1600) sodium chloride 0.9% 100 mL/hr at 04/18/23 1600 propofoL 20 mcg/kg/min (04/18/23 1600) Scheduled sodium chloride 0.9 % (flush) 5 mL Intravenous BID chlorhexidine 15 mL Oral BID insulin lispro 1-6 Units Subcutaneous Q4H YUSUF lisinopriL 20 mg Per NG tube Daily [START ON 04/19/2023] senna-docusate 2 tablet Per NG tube BID famotidine 20 mg Per NG tube BID thiamine 100 mg Intravenous Daily folic acid 1,000 mcg Per NG tube Daily multivitamin with minerals 1 tablet Per NG tube Daily PHENobarbitaL 1.8 mg/kg/dose ([place]) Intravenous Q3H [START ON 04/19/2023] PHENobarbitaL 0.48 mg/kg/dose ([place]) Oral BID Followed by [START ON 04/20/2023] PHENobarbitaL 0.24 mg/kg/dose ([place]) Oral BID Followed by [START ON 04/21/2023] PHENobarbitaL 0.12 mg/kg/dose ([place]) Oral BID PRN sodium chloride 0.9 % (flush), lidocaine, labetaloL, enalaprilat, bisacodyL, magnesium hydroxide, glucose 40% oral geL OR dextrose OR glucagon, polyethylene glycoL (MIRALAX) oral powder, propofoL AND propofoL, potassium chloride in water OR potassium chloride in water OR potassium chloride in water, acetaminophen OR [DISCONTINUED] acetaminophen OR [DISCONTINUED] acetaminophen, PHENobarbitaL Anthropometrics: Admit Weight: 111.8 kg Estimated body mass index is 36.93 kg/m?? as calculated from the following: Height as of this encounter: 174 cm (5' 8.5). Weight as of this encounter: 111.8 kg (246 lb 7.6 oz). [place] Body Weight (IBW) (kg): 71.37 Wt Readings from Last 10 Encounters: 04/18/23 111.8 kg (246 lb 7.6 oz) Patient Vitals for the past 168 hrs: Weight 04/18/23 0645 111.8 kg (246 lb 7.6 oz) Weight Source: Bed Estimated / Assessed Needs: Fluid Requirements: Estimated Fluid Requirement Method: Weight Based Method Weight Based Method: 30 Weight Based Calculation: 2142 mL Kcal / K - 1785 Kcal (20 Kcal/Kg - 25 Kcal/Kg) Estimated Protein Needs: 86 g - 107 g (1.2 g/Kg - 1.5 g/Kg) Nutrition intake and intake history / interview: 04/17: Consulted for TF recommendations. May extubate tomorrow. On some propofol. On alcohol withdrawal protocol - thiamine, folic acid and Thera M ordered. Nutrition Focused Physical Exam: Not performed Reason NFPE Not Performed: Not indicated. Malnutrition Diagnosis: Not identified (Hieu, BETHANY J Parenteral Enteral Nutr. 2011; 36(3): 273-83) Nutrition to continue to follow up while inpatient Thank you, Angelia Paulino RDN, CNSC, LD Clinical Nutrition * Elkin Hager RCP - 04/18/2023 4:41 PM EDT AMV Protocol: Yes SBT Protocol: Yes Vent Settings: Ventilator Mode: PS/CPAP Tidal Volume Set: 620 Resp Rate Set: 12 PEEP Set: 5 FiO2: 30 % Ventilator Measurements: Resp: 22 Vt Exhaled: 334 PIP: 11 MAP: 7.2 Plateau Press: Ve: 8 PEEP: SpO2: 95 % EtCO2: 51 mmHg Airway: 8.0 @ 26 cm at the Teeth. Skin Integrity: WDL Breath Sounds: clear Secretions: small, thick, shirley Assessment: Received patient in intubated and mechanically ventilated in volume control, sedation weaned, FiO2 weaned to 30%. 10:32-patient transitioned to PSV 5/5, FiO2-30%, patient breathing full spontaneous breaths but agitated and reaching for the ET tube. SBT and extubation held off until tomorrow (Monday) Patient brought for CT of head today, no other changes. Elkin Hager RCP * Tiarra Vasquez SLP - 04/18/2023 3:16 PM EDT Speech Pathology Contact Note Consult received. Patient remains intubated. We will plan to see him for a clinical swallow evaluation post-extubation, likely tomorrow. Please secure chat with questions, thanks! Tiarra Vasquez, MS, [facility]-TREASURY CONSULTANT Speech-Language Pathologist Inpatient Rehabilitation Pager # [phone] * Eulalia Blakely RN - 04/18/2023 7:29 AM EDT Myla 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 male admitted on 04/18/2023 with R frontal IPH with IVH involvement. Patient Active Problem List Diagnosis Date Noted ICH (intracerebral hemorrhage) 04/18/2023 No past medical history on file. No past surgical history on file. Arrival to NCCU at: 0640 via [facility] ground Upon arrival: Prop at 15, turned off for 15 minutes for neuro exam, noted + cough, spontaneous RUE/RLE movement. Prop at 20 for EVD placement Imaging/labs: trop 87 UNDERWRITING ASSISTANT, rainbow labs collected-pending results P Tubed-VC C SBPs >140, Cardene 5 started rebolledo placed H NS infusing at 100 ID Cefzolin 2g infusing prior to incision LD PIV x2 Family: Gina bedside, led to conference room, NCCU/NSGY aware and present for EVD consent Plan: NSGY bedside for EVD placement, CTH-S, Annie, ongoing neuro and supportive care. documented in this encounter H&P Notes * Agustina Garg MD - 05/19/2023 11:57 AM EDT Images from the original note were not included. Neurology Admission History and Physical Patient name: Myla Acosta Date of : 1955 PCP: Fransico Remy MD Stroke Assessment: Date last well known:: 04/17/23 Time last well known:: 2100 Date of discovery of symptoms:: 04/18/23 Time of discovery of symptoms:: 0000 The time difference from patients last known well to ED arrival OR inpatient stroke alert was (choose one): Greater than 4.5 hours Date acute stroke team was at bedside:: 04/18/23 Time acute stroke team was at bedside:: 1050 CT interpretation date: 04/18/23 CT interpretation time:: 0300 Was dysphagia screen performed?: Yes Did patient pass dysphagia screen?: No Date of Dysphagia Screen: 04/18/23 Time of Dysphagia Screen: 1050 CC: R cerebellar IPH with VE HPI: Myla J Bussiere is a 67 y.o. 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 He is s/p EVD placement on 04/17 and removal on 05/01. 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 He is surrounded by family including his . He is sleepy but arouses quickly to voice. He is joking with family at times but also drifts off to sleep. He appears slightly agitated when awakened but again closes his eyesand quickly falls back asleep. He is moving all extremities. Can not assess him for mental status as he is not responding to my questioning and due to current agitation when awakened, will defer mental status exam to a later time. 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 R frontal EVD placed by NSGY 04/17. HCT and CTA were performedwhich confirmed stability of the bleed and no vascular malformations suggesting that this was a primarily HTN bleed. A posterior medial LEFT parietal lobe infarct was noted on CTH and then verified via MRI. This was thought to be provoked by 3rd ventricle hydrocephalus compressing the VALUE STREAM COACH which resulted in the infarct. EVD removed 05/01. 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 A follow up CTA chest and abdomen further delineated a Hay type B dissection extending from the LEFT subclavian artery to the bilateral external iliac arteries. Tight BP < 120 mm Hg and HR control (< 60 bpm) was initiated pharmacologically and Vascular Surgery was consulted, relaxed to SBP < 140 on 05/09. In addition to pulse pressure control ASA was recommended once safe. There is no surgical intervention unless signs and symptoms of active bleeding are noted. ASA started post EVD removal. Repeat imaging per vascular surgery in 3 months (~ 07/26/23). Unfortunately, on 05/13, pt started to have episodes of profound bradycardia that did evolve at timesinto asystole (~12-14 seconds) with spontaneous resolution. Diltiazem and carvedilol were d/c'd perVascular Medicine. In conversation with at bedside, she has requested to speak with Palliative; family meeting now scheduled for 05/15 at 1:30pm. Pt is also now DNR/DNI. After share decision making meeting with family due to difficulty meeting blood pressure and heart rate goals, elected to repeat imagining which showed stable dissection . Due to this, liberalized blood pressure goals to less than 160mgHG in attempts to get patient off continuous IV infusions to allow his ICU delirium improve to better assess likely rehabilitation potential. # Acute hypoxic respiratory failure # Fluid overload Patient was tolerating minimal ventilatory settings and initially extubated on 04/18. Required diuresis post-extubation given volume status. Night of 04/18, Myla had a hypoxic event as well as c/f AMSand was re-intubated. Neurological exam was stable pre- and post-intubation. Given his likely bulbar dysfunction, highest suspicion was for a mucous plugging event which was also noted on CXR. He underwent a diagnostic/therapeutic bronch on 04/19 which showed thick copious secretions mainly in the DAVID and L lingula which was sent for cultures after a BAL was performed. Initial gram stain was negative. BAL with normal upper respiratory pascual. On 04/29, sputum culture was sent as part of fever workup with GPCs/GNRs, decision made given clinical scenario to continue zosyn x 7 days. Pt continued toimprove with decreased support required from vent, and was extubated on 05/04 to 3L NC. He has intermittently tolerated CPAP at night. # Dysphagia TREASURY CONSULTANT following for speech assessment. Pt tolerating Tfs via NGT and modified sips and chips diet when mental status appropriate. Modified Barium Swallow pending clinical stability. # OVI, likely d/t [place], resolved Intermittent Cr elevations # Hyperactive Agitated Delirium # Alcohol Abuse Pt completed phenobarbital taper early on in hospital course. Agitation currently well managed withseroquel, with dosing limitations per QTC. Home Medications: No current facility-administered medications on file prior to encounter. No current outpatient medications on file prior to encounter. Current Medications: Scheduled Meds: labetaloL 800 mg Per NG tube Q6H spironolactone (Aldactone) 100 mg in sterile water 10 mL custom oral liquid 100 mg Per NG tube Daily cloNIDine 0.2 mg Per NG tube Q8H sodium chloride 2 g Per NG tube TID QUEtiapine 100 mg Per NG tube Nightly insulin lispro 1-4 Units Subcutaneous Q4H [facility] tube feeding diet 230 mL Per NG tube 4 Times Daily simethicone 40 mg Per NG tube 4 Times Daily hydrALAZINE 200 mg Per NG tube Q6H terazosin 1 mg Per NG tube BID traMADoL 50 mg Per NG tube Q8H FLUoxetine 20 mg Per NG tube Daily aspirin 81 mg Per NG tube Daily lisinopriL 40 mg Per NG tube Daily ergocalciferoL (vitamin D2) 50,000 Units Per NG tube Weekly heparin (porcine) 5,000 Units Subcutaneous Q8H [facility] camphor-methyl salicyl-menthoL Topical (Top) BID Past Medical & Surgical History: No past medical history on file. No past surgical history on file. Allergy: No Known Allergies Family History: No family history on file. Social History Socioeconomic History Marital status: Spouse name: Not on file Number of children: Not on file Years of education: Not on file Highest education level: Not on file Occupational History Not on file Tobacco Use Smoking status: Unknown Smokeless tobacco: Not on file Substance and Sexual Activity Alcohol use: Defer Drug use: Defer Sexual activity: Defer Other Topics Concern Not on file Social History Narrative to Kyra X 44 years. They have 3 children: all in their 20s. 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 He has a significant alcohol abuse history with daily drinking. Was never one to go to get medical care. Social Determinants of Health Financial Resource Strain: Not on file Food Insecurity: No Food Insecurity (04/20/2023) Hunger Vital Sign Worried About Running Out of Food in the Last Year: Never true Ran Out of Food in the Last Year: Never true Transportation Needs: No Transportation Needs (04/20/2023) PRAPARE - Transportation Lack of Transportation (Medical): No Lack of Transportation (Non-Medical): No Physical Activity: Not on file Intimate Partner Violence: Not on file Housing Stability: Unknown (04/20/2023) Housing Stability Vital Sign Unable to Pay for Housing in the Last Year: No Number of Places Lived in the Last Year: Not on file Unstable Housing in the Last Year: No Review of systems: Neuro: See HPI [x] Review of systems otherwise negative Physical Exam: GCS Scale Vitals: Temp: [36.3 ??C (97.3 ??F)-37.2 ??C (99 ??F)] Heart Rate: [54-78] Resp: [12-31] BP: (114-153)/(57-95) SpO2: [91 %-98 %] Heart Rate from SpO2: [53 bpm-78 bpm] Gen: Patient of apparent stated age, awake, alert, NAD Neuro Exam: MS: Opens eyes to voice. Not engaging in exam. Speaking to family once in a while but quickly drifts back to sleep CN: PERRL, EOMI, no facial asymmetry Hearing intact to voice Motor: Moving all extremities spontaneously Sensation: not tested as patient agitated NIH Stroke Scale NIH Stroke Scale Date 04/18/23 NIH Stroke Scale Time 1050 Level of Consciousness 1 LOC Questions 2 LOC Commands 0 Best Gaze 1 Vision 0 Facial Palsy 0 Motor Arm, Left 0 Motor Arm, Right 0 Motor Leg, Left 0 Motor Leg, Right 0 Limb Ataxia (UT) Sensory (UT) Best Language 3 (intubated) Dysarthria 0 Extinction and Inattention: 0 (UT) NIH Total Score Your Prescription is Ready Labs: Last 3 wbc, hgb, hct plt Recent Labs 05/18/23 0037 05/16/23 0042 05/15/23 0035 WBC 7.0 7.6 7.6 HGB 9.3* 9.4* 9.4* HCT 28.9* 29.7* 29.2* PLATELET 209 223 206 Last 3 Lytes Recent Labs 05/19/23 0033 05/18/23 0037 05/17/23 0047 NA 142 137 135 K 4.5 4.1 4.2 CL 103 98 99 CO2 28 30 29 BUN 33* 29* 29* CREATININE 1.82* 1.61* 1.41 Last 3 LFTs Recent Labs 04/28/23 0120 04/23/23 0024 04/19/23 0035 AST 26 28 22 ALT 38 26 19 ALKPHOS 61 64 66 BILITOT 0.5 0.4 0.3 BILIDIR 0.3 0.2 0.1 Last Ca, Mg, Phos Recent Labs 05/19/23 0033 CALCIUM 9.4 PHOS 4.6* MAGNESIUM 1.02 Last 3 TFT Recent Labs 04/19/23 0035 TSH 0.74 Last 3 Lipids Recent Labs 05/07/23 0110 05/06/23 1050 05/06/23 0030 04/20/23 0110 04/19/23 0035 CHLPL -- -- -- -- 220 HDL -- -- -- -- 86 LDLDIRECT -- -- -- -- 129 TRIG 194 292 1,032 < > 78 < > = values in this interval not displayed. Last 3 HgbA1C Recent Labs 04/19/2334 HA1C 6.0* Last CRP, SEDRATENo results for input(s): CRP, SEDRATE in the last 7068 hours. Radiology: CT Head 05/01 No change in ventricular caliber, intraventricular hemorrhage or right cerebellar hemorrhage with moderate surrounding edema. MRI Brain wwo 04/19 Recent infarct involving the posterior medial LEFT parietal lobe. Unchanged size of RIGHT cerebellar intraparenchymal hemorrhage with unchanged volume of intraventricular blood products. Vasogenic edema tracks along the superior right cerebellar peduncle into the right midbrain. Unchanged ventricular caliber with some hyperintense signal along the ventricular surface suggesting some transependymal CSF flow. No abnormal brain parenchymal or meningeal enhancement to suggest underlying malignancy. Small foci of susceptibility related signal loss separate from the areas of hemorrhage, which couldrepresent sequela of small vessel disease versus cerebral amyloid angiopathy. CTA COW 04/17 No evidence of aneurysm or vascular malformation. Bilateral Renal Artery Duplex 04/27 Comment: Limited exam due to time of day (study started at 1600), overlying bowel gas, patient positioning and patient body habitus. Right: Unable to study kidney, renal artery, and renal vein due to limitations listed above. Unableto determine patency. Left: Patent distal main renal artery with no evidence of hemodynamically significant stenosis. Patent main renal vein. Due to limitations listed above unable to study origin and proximal to mid renal artery; cannot exclude higher velocities/ stenosis here. EKG 04/26: TTE 04/18: There is severe concentric left ventricular hypertrophy. Left ventricular systolic function is normal. The left ventricular ejection fraction is 70% by Hester's biplane. There are no segmental wall motion abnormalities. The right ventricle is probably normal in size. Right ventricular function is probably normal. No significant valve disease. The aortic root is dilated. The diameter at the level of the sinuses of Valsalva is 4.2 cm. The ascending aorta is dilated. The maximum diameter of the proximal ascending aorta is 4.5 cm. No comparison study is available. Assessment and Plan: Myla 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 He is s/p EVD placement on 04/17 and removal on 05/01. 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 Pt has required copious anti-hypertensive agents in order to achieve adequate BP control; unfortunately this has been complicated by profound bradycardia and, at times, episodes of asystole (05/13-05/14). Per family request, Palliative has been consulted and plan for family meeting on 05/15. Pt is now DNR/DNI. He was downgraded to step down level to the vascular neurology service on 05/18 for further management of IVH as well as aortic dissection and other medical conditions as below. # R Cerebellar ICH, suspected 2/2 HTN crisis (ICH Score 2 (IVH, Infratentorial)) # Posterior medial LEFT parietal lobe infarct (VALUE STREAM COACH compression) # R Cerebellar IPH with ANIL. 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 into the bilateral external iliac arteries # concern for mediastinal hematoma # HFpEF - maintain SBP < 160mmHg, HR < 70bpm - current anti-hypertensive regimen: - --> d/c'd 2/2 asystole (05/13) - --> d/c'd 2/2 asystole (05/14) - lisinopril 40mg daily - terazosin 1mg BID - hydralazine 200mg q6h - Labetolol 800mg q 6 hr (increased 05/17) - aldactone 100mg daily (05/15) - decrease clonidine to 0.2mg q8h (05/14) - severe bradycardia, prolonged pauses (starting 05/13); likely medication-induced - prefer anticholinergics over pacing - events seemed to have improved throughout today with holding diltiazem and carvedilol - ASA 81mg daily resumed on 05/02 #Respiratory failure - extubated 04/18, re-intubated 04/19 d/t agitation/hypoxia, extubated 04/21 , re- intubated 04/26 d/t mental status, now extubated and doing well (05/04) - underwent bronch 04/19 with suctioning of mucous plugs L>R - goal O2 sats > 92% - CPAP QHS as tolerated (tolerating 4h QHS) - airway clearance, 3% neb Q4H, Duonebs PRN as per RT # urinary retention # total body fluid overload # hyponatremia, likely diuresis-induced - salt tab 3g TID --> decreased to 2g TID - use saline flushes with enteral meds instead of water flushes - Vit D2 50,000 units weekly on Sundays # right brachial DVT - daily CBC - DVT ppx: SCDs, SQH # right wrist pressure injury - followed by Wound Care # Prophylaxis heparin 5000units SC Q8H # Supportive care -full liquid diet -Tylenol PRN # DNR/DNI Agustina Garg MD Vascular Neurology Pager [phone] Standard [facility] Swallow Screen: This screen is to be used to document a Swallow Screen prior to ingestion of water and /or oral medications for patients with possible stroke (Ischemic or Hemorrhagic). Exclusion Criteria: A swallow screen is not to be performed on patients who: have a decreased level of consciousness. are not able to follow simple commands. are hypoxic, or have increasing O2 needs or may need to be intubated. have a G/J tube for nutrition. have a recent history of a swallowing disorder *These patients should remain NPO (HOLD MEDS) and the physician notified for further orders. Swallow Screen Using Water: None of the Exclusion Criteria as mentioned above is present? Patient is alert and sitting upright? Able to close lips and tongue is midline? Able to cough, manage oral secretions with dry voice? ONLY IF ABOVE ALL YES, Able to swallow 30 ml of water without coughing, displaying a wet voice or choking? Repeat Twice. If YES to all responses, proceed with water and oral medications as well as diet as medical provider deems appropriate. Consider TREASURY CONSULTANT consult for full evaluation and diet recommendations. If NO to any of the responses, stop immediately, keep patient NPO and notify physician. * Mari Durham MD - 04/18/2023 4:11 AM EDT NEUROCRITICAL CARE HISTORY & PHYSICAL Date of Admission: No admission date for patient encounter. HPI: Myla Acosta is a 67 year old male with unknown pmhx (per chart review, does not appear to have a PCP or follow up within the [facility] system) who presents as a transfer from an OSH for evaluationof a right cerebellar IPH. Per report, LKN was 04/17/23 at 2100, he woke up c/o vertigo and nausea/vomiting. Subsequent imaging studies revealed a right cerebellar IPH with ANIL. Initial Bps were noted to be in the 200s. Was started on a nicard gtt for BP control. Was subsequently intubated at the OSH for airway protection given worsening somnolence. Presented to [facility] where he was intubated. Brainstem reflexes were preserved. Decision was made to place EVD with NSG. Not known to be on any AC/AP ROS: Unable to assess given mental status. No past medical history on file. No past surgical history on file. Social History Tobacco Use Smoking status: Not on file Smokeless tobacco: Not on file Substance Use Topics Alcohol use: Not on file No medications prior to admission. Vital Sign Ranges: Last value Range last 24 hrs Temperature Temp: -- Heart Rate Heart Rate: -- Blood Pressure BP: -- Respiratory Rate Resp: -- SpO2 SpO2: -- Art BP BP (Arterial Line): -- Lines/Drains/Airways: ETT R Frontal EVD Labs: No results found for this or any previous visit (from the past 24 hour(s)). Imaging: HCT and CTA pending final read EKG: Pending Physical Exam: PHYSICAL EXAM: General: Appears documented age, eyes closed, on the ventilator HEENT: Normocephalic Cards: RRR on monitor Pulmonary: Ventilated, CTAB Neuro: E1VTM5 + Pupils/+Cough/+Gag RUE: Localizes LUE: Withdraws RLE: Withdraws LLE: Withdraws DH NIH STROKE SCALE ASSESSMENT & PLAN: Myla Acosta is a 67 year old male with unknown pmhx (no PCP or listed medications) who presents as a transfer from an OSH for evaluation of a right cerebellar IPH. Now s/p R EVD placement 04/17 given hydrocephalus. ICH Score (2 - IVH, Infratentorial) # Neuro- > R Cerebellar ICH, suspected 2/2 HTN crisis - q1h neuro checks, VS - HOB > 30 deg - S/p EVD, open @ 10cm H2O - repeat NCHCT post-EVD - Repeat CTA on arrival per NSGY request for evaluation of any vascular abnormality - MRI brain w/wo to evaluate for underlying lesion - no indication for seizure prophylaxis # CV - - maintain SBP < 140 - PRN/cardene gtt as needed - TTE pending - CXR and EKG with signs of atrial and ventricular enlargement # Pulm - - goal O2 sats > 92% - IS at bedside - VC, wean to PS - consider extubation given FC after EVD # GI - - NPO until bedside swallow screen v formal swallow eval - bowel reg - Famotidine - Will place DHT # FEN/ - - daily BMP, Mg, PO4 - NS while NPO - c/f CKD or OVI, consider baseline given weight of 111kg - maintain rebolledo # Heme - - daily CBC - hold SQH pending NSGY approval - hold antithrombotics/APAs # Endo - - goal glucose > 180 - Sensitive SSI # ID - - for temp > 38.4 C --> UA, CXR, blood cx, sputum cx - tylenol PRN LTD R Frontal EVD ETT Code Status - Attempt Cardiopulmonary Resuscitation - Inpatient Dispo - NCCU Associated attestation - Tana Smith MD - 04/18/2023 11:38 AM EDT Attending Addendum I have reviewed the above resident's note and I agree with the history, assessment and plan as detailed below. My physical examination confirms the resident's findings. The assessment and plan were formulated in discussion with me at the time of the visit and I agree with them as documented. //////////////////////////////////////////////////////////////////////////////// //// Attestation: IS PATIENT CRITICALLY ILL ? Is there a high potential of sudden, clinically significant, or life threatening deterioration? YES Is there a need for direct personal assessment and management to treat/prevent multiple vital organfailure/deterioration? YES If this patient is not critically ill, the reason for continued hospitalization is n/a. PATIENT IS CRITICALLY ILL WITH THESE DIAGNOSES BEING MANAGED BY CCS TEAM: Mechanical ventilation Acute obstructive hydrocephalus requiring CSF diversion I personally performed 30 minutes of aggregate critical care time exclusive of procedures and teaching. This includes time spent during direct patient evaluation and reassessment, interpreting diagnostic tests, directing life and/or organ supporting interventions and documentation on the unit. Tana Smith MD 04/18/2023 11:37 AM documented in this encounter Procedure Notes * Mel Amaya MD - 05/26/2023 9:54 AM EDTAssociated Order(s): EEG [facility] Department of Neurology Inpatient Routine EEG Report Name of the Patient: Myla Acosta Date of : 1955 Date of Service: 05/26/2023 Referring physician: Cooper Ferrera DO. Reading Resident/Fellow: Florin Vasquez MD Reading Attending: Mel Amaya MD Routine EEG start time: 09:30 Routine EEG end time: 10:34 Total time recorded: 60 minutes Indication for EEG: Other (hallucinatory palinopsia) BRIEF HISTORY: Myla 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 male MEDICATIONS: No relevant medications PRIOR EEG(s): No prior EEG available. METHODS: A 21 channel digitized electroencephalogram was performed in the [facility] Clinical Neurophysiology Laboratory. The 10/20 international system of electrode placement was used and bipolar and referential electrode montages were recorded. In addition to EEG the patient was monitored for EKGand lateral/vertical eye movements. Video was recorded during the session. GEOTECHNICAL INTERN'S REPORT: Performed by: ELVIS/HebertP Patient was not sleep deprived. Sleep was not attained. Photic stimulation was performed. Hyperventilation was not performed. Effort not applicable. Movement and other artifact was significant. Comments: ELECTROENCEPHALOGRAPHER'S REPORT Background: The background was continuous and spontaneously reactive composed of normal voltage, with well organized anterior to posterior gradient with frontally predominant beta and posterior alpha frequencies. There was a 8-9 Hz posterior dominant rhythm that attenuated with eye opening. Focal Asymmetries: Intermittent slowing and attenuation of R temporo-occipital region Sleep: Drowsiness and sleep was not seen during this recording. Interictal Activity: There were no epileptiform discharges or abnormal movement patterns. Patient Events or Seizures: No patient events or electrographic seizures were recorded. Provocative Maneuvers: Photic stimulation was performed however no driving response was observed. EKG: Single lead EKG was regular Technical Limitations: None INTERPRETATION: This 60-minute inpatient routine EEG was abnormal due to the presence of: Interictal: 1)Slowing and attenuation of R temporo-occipital region 2)No epileptiform discharges, rhythmic or periodic patterns were seen Ictal: 1)No discrete seizures were seen CLINICAL CORRELATION: This EEG demonstrates focal dysfunction of the R temporo-occipital region likely correlating with underlying structural abnormality in this region. No discrete seizures, epileptiform discharges, rhythmic or periodic patterns were seen. Florin Vasquez MD 05/26/2023 Attending attestation I was the attending physician supervising the fellow the above care. The EEG was reviewed in its entirety by me with the fellow and I agree with above report. Mel Amaya MD Professor of Neurology Chair, Department of Neurology * Bentley Glasgow APRN - 05/02/2023 10:17 AM EDT Neurosurgery Procedure Note - per physician order, Patient tolerated EVD clamping trial and is appropriate to be removed at bedside - Myla Beatty Ernestinenaldo informed drain to be removed and is amenable, procedure explained -The area around the entry site was cleansed with chloraprep. - Local anesthetic was administered prior to the procedure - The tack up suture was removed. - The EVD was removed; drain tip visualized and intact - The drain site was closed with a single absorbable suture. - The patient tolerated the procedure well and there were no issues. - All drain related orders have been discontinued. Please page [phone] with questions regarding this patient. Bentley Glasgow APRN * Michelle Crawford PA - 04/27/2023 1:42 PM EDTAssociated Order(s): INTUBATION Intubation Procedure Note Reason for Intubation: Airway protection and Hypoxemia. Procedure Diagnosis: acute respiratory failure Location of Procedure: NCCU . Risks and Benefits: The risks and benefits of this procedure were reviewed and informed consent was obtained obtained. Time Out: Prior to the start of the procedure, the patient's identity, intended procedure, site/side, correct patient positioning and presence of the site shawn was confirmed as applicable. The medical history and chart were reviewed to rule out potential contraindications to the planned procedure. Intubation Assessment: Additional Intubation Assessment: Preoxygenation was administered. Laryngoscope Blade and Size: CMAC D Blade The endotracheal tube size was 8 mm. The tube was cuffed. Common Adjuvant Equipment: A stylet was used. Rigid stylet An oral airway was not used. A nasal airway was not used. Additional Adjuvant Equipment: Type scope: Video laryngoscope [place] Intubation Catheter: no Combitube:no Intubating Laryngeal Mask Airway:none Laryngeal Mask Airway: none Other: n/a Intubation Method: other: video laryngoscopy IV Medications: 40 mg Etomidate 100 mg Rocuronium Other Medications: Other: none Insertion Attempts: There was 1 attempt Intubation Procedure Attempt 1: Provider name:Michelle Crawford PA-C A C-Mac Laryngoscopy with direct visualization using a D blade size Intubation was performed. A size 8.0 was utilized. The endotracheal tube was cuffed. A Stylet was utilized. Intubation was successful.. Visualization of Vocal Chords: A Grade I view of the vocal cords was observed. Confirmation of Tube Placement: Chest X-ray ordered end tidal CO2 bilateral breath sounds Status Post Intubation: The patient was hemodynamically stable. Tube secured (at lip or nares): 24 cm at teeth Other post intubation status comments: Dr. Mark Jacob was health unit supervisor and present. MICHELET Bergman 04/27/2023 Associated attestation - Georges Jacob MD - 04/28/2023 6:23 PM EDT I was the supervising physician for this procedure. I was present for the entire procedure. * Dorina Decker PA - 04/22/2023 8:38 PM EDTProcedure(s): PROCDOC EMPTY; PROCDOC EMPTY; INSERT ARTERIAL LINE Arterial Line Placement Procedure Note Indication for Procedure: Arterial line was placed for invasive blood pressure monitoring. Procedure Diagnosis: Type B aortic dissection Location of Procedure: Critical Care. Risks and Benefits: The risks and benefits of this procedure were not reviewed and informed consentwas not obtained. Procedure was done under urgent/ emergent consent Time Out: Prior to the start of the procedure, the patient's identity, intended procedure, site/side, correct patient positioning and presence of the site shawn was confirmed as applicable. The medical history and chart were reviewed to rule out potential contraindications to the planned procedure. Hand Hygiene: The supervisor travel information center did perform hand hygiene prior to arterial line insertion. Procedure Prep: Sterile draping was applied. Skin was prepped with chlorhexidine. 3 ml of 1% Lidocaine was used for local anesthesia. Procedure Details: A 20 gauge, 1.5inch catheter was placed in the right radial artery and secured with steri-strips. Tegaderm was applied. Ultrasound was used for guidance.. There were 3 attempts. Prior to insertion, ulnar patency was confirmed via US Findings: There were no procedure complications. Blood was drawn with ease. Good wave form. Procedure Comments: None [facility] P[phone] * Mari Durham MD - 04/20/2023 3:30 PM EDT ICU Bronchoscopy Procedure Note Bronchoscopist: Mari Durham MD Attending / Mold Hoister: Tana Smith MD Location: [facility] Indication: hypoxemia Procedure Diagnosis: L mucous plug Anesthesia: propofol infusion, fentanyl 100mg x1 Endotracheal Medications: none Procedure: A time out was performed confirming the patient???s identity and the procedure to be performed. Consent was obtained. A fiberoptic bronchoscope was inserted via the endotracheal tube and tube placement was confirmed at 2-5 cm above the main nichole. The airway was inspected in its entirety to the segmental level and anatomy and mucosa were normal with the following exceptions: none. There were secretions present. Secretions were thick, copius, yellow, occasionally blood tinged and present mainly in the DAVID, Lingula. Secretions were removed by suction and were sent for culture. Interventions: A Bronchoalveolar lavage was performed in the Lingula. 20 cc were instilled with a 10 cc return which was clear. Sequential lavage was not performed. After performing the above interventions the bronchoscope was removed. Sample: The bronchoalveolar lavage were sent for bacterial stain and culture, cell count. Complications: None Mari Durham MD Associated attestation - Tana Smith MD - 04/20/2023 4:01 PM EDT I was present for the entirety of this exam and agree with the findings as documented. Tana Smith MD 04/20/2023 4:01 PM * Jazmin Reyes RN - 04/20/2023 2:00 PM EDTAssociated Order(s): PLACE BEDSIDE PICC LINE PICC/Midline Insertion Procedure Note Indications: Access This insertion was not to replace a malfunctioning catheter. This insertion was not due to a suspected line-associated infection. Location of Procedure: Neuro Critical Care Risks and Benefits: The risks and benefits of this procedure were reviewed and informed consent was obtained obtained. Time Out: Prior to the start of the procedure, the patient's identity, intended procedure, site/side, correctpatient positioning and presence of the site shawn was confirmed as applicable. The medical history and chart were reviewed to rule out potential contraindications to the planned procedure. Hand Hygiene: The supervisor travel information center did perform hand hygiene prior to line insertion. Catheter type: PICC Lot number: [id number] Procedure Technique: Skin was prepped with chlorhexidine. Skin preparation agent was completely dry at the time of first skin puncture. The following barrier precaution methods were used:large sterile drape, maske/eye shield, large sterile gown, sterile gloves, and cap. 3 ml of 1% Lidocaine was used for skin wheal. Ultrasound was used for guidance. Radiographic contrast agent was not injected for vein identification. Procedure Details: Order received for catheter placement. A 5 Fr. triple lumen Bard Power catheter was placed into theright brachial vein over a 0.018 inch guidewire using modified seldinger technique and fluoroscopy.Arm circumference was 37 cm at 2 cm above the insertion site. Final catheter length (with trimming): 50 cm Internal: 50 cm External: 0 cm Tip in SVC per Killam. The line was not placed over a guidewire. Post Procedure: Diagnosis: ICH Blood return noted on aspiration of line after placement confirmed. 3 mls of normal saline infused free flowing to gravity via PICC after insertion. Sterile dressing applied: CHG Impregnated Tegaderm. Findings: The patient did tolerate the procedure well. No Complications. Procedure Comments: Successful bedside PICC insertion performed by CARSON Rivera RN 04/20/2023 * Mari Durham MD - 04/18/2023 8:23 AM EDT [facility] NEUROSURGERY EVD PROCEDURE NOTE PATIENT: Myla Acosta : 1955 DATE OF PROCEDURE: 04/18/2023 NAME OF OPERATION/PROCEDURE: RIGHT frontal twist drill darell hole for placement of ventriculostomy (external ventricular drain [EVD]) PREOPERATIVE DIAGNOSIS: IVH POSTOPERATIVE DIAGNOSIS: Same ATTENDING SURGEON(S): Nayana Barker MD RESIDENT SURGEONS(S): Mari Durham MD, Chinyere Cruz MD ANESTHESIA: Local anesthetic with lidocaine and epinephrine OPERATIVE FINDINGS: 1. Successful placement of ventricular catheter 2. 1 pass(es) INDICATIONS FOR PROCEDURE: After risks, benefits, and alternatives were discussed with the patient's family at length, a written consent was obtained. Risks discussed included but are not limited to infection, bleeding, CSF leak, injury to surrounding structures, weakness, paralysis, pain, scar, failure to improve symptoms, need for further surgery, coma, and . DESCRIPTION OF PROCEDURE: Informed consent was obtained as above. A standard timeout was performed confirming the correct patient, procedure, and laterality. Prophylactic ancef 2g was administered. The patient's head was positioned in the neutral position at 30 degrees of elevation. Hair around the area of of interest was clipped with electric clippers on the right side. Based on pre-procedure imaging, Phyllis's point was measured and marked at 10.5 cm posterior from the nasion along the midline sagittal plane and 3 cm laterally along the mid-pupillary line. Great care was taken to be at least 2 cm anterior to the coronal suture. The right frontal aspect of the head was prepped with chloraprep x2 and infiltrated with 5 cc of 1%lidocaine with 1:100,000 epinephrine for local anesthesia. The surgical field was draped in the usual sterile fashion. A 1 cm incision was made straight down to bone with a #15 blade at Phyllis's point. The periosteum was scrapped aside. A twist drill craniostomy was carefully fashioned. Bone chips were then removed with Adson's. The dura was opened with the sharp end of the trochar. The EVD catheter was carefully ad vanced to 6.5 cm at the skin. The stylette was then removed with clear appearing CSF obtained after1 pass at an opening pressure of approximately 15-18mmHg based on rise of CSF in the stylette. The EVD was tunneled out postero-medially via a separate skin incision using a trochar and secured with marco antonio. The skin incision was closed with marco antonio. Excellent hemostasis was obtained. The catheter was secured to the skin with a nylon suture and connected to the drainage chamber. Scalp was cleanedwith Guaze. A Chlorhexidine-impregnated Tegaderm dressing was applied. Drapes were removed. CSF wasnoted to be draining into the drainage chamber appropriately at the end of the procedure. The patient tolerated the procedure well with no complications. INITIAL ICP: 12mmHg ESTIMATED BLOOD LOSS: Minimal COMPLICATIONS: None SPECIMENS: None IMPLANTS: EVD TYPE: Codman Bactiseal ventricular catheter ANTIBIOTIC IMED CATHETER: Yes INSTRUMENT COUNT: All instrument counts were correct at the end of the procedure. PLAN: -EVD open at 10cm H20 -Transduce and record ICP q1 hour -Call if ICP > 22 mmHg for 15 mins w/o stimulation -HOB > 30 degrees -Non-contrast CT head Mari Durham MD 04/18/2023 8:23 AM PGY-1 [facility] Neurosurgery documented in this encounter Miscellaneous Notes * Care Management Discharge - Melchor Frazier RN - 06/02/2023 10:19 AM EDT CARE MANAGEMENT FINAL DISCHARGE NOTE Chart reviewed, care reviewed with primary team and at interdisciplinary rounds. Patient is medically ready for discharge today. Needs for Transition of Care: Plan for discharge is: Acute Rehab Agency Referrals & Follow-up Care: Contact information for follow-up [facility] Admissions - [address] [address] Transportation: ambulance Ambulance Finance Conversation Completed: 06/01/2023 Spoke to: spouse Verbalized Understanding: Yes [facility] 06/01 @ 1300 confirmed for transport Functional status prior to admission: Independent Home Environment: Others in the home: spouse. Current Living Arrangements: home/apartment/condo. Accessibility Concerns:0 PATRICIA,. Current Functional Ability: Assistive Person and Equipment DME used at home: (has grab bars available) DME Needed at Discharge: none for dc to rehab Patient is insured through: Primary Insurance: MEDICARE Payor: MEDICARE / Plan: MEDICARE PART A & B / Product Type: *No Product type* / Secondary Insurance: [facility] Prescription Coverage: Yes This plan was formulated with input from patient's spouse and team. All are in agreement with plan. I have reviewed the Important Message from Medicare ([facility]) with patient. Patient verbalizes understanding of right to appeal this discharge if feeling not medically ready. Offered a copy of this letter. I have reviewed the Important Message from Medicare ([facility]) with patient's spouse. Patient's spouse, Gina verbalizes understanding of right to appeal this discharge if feeling not medically ready. Offered a copy of this letter. Melchor Frazier RN RN/CM - Cellphone: [phone] Pager: [phone] Covering Service RN/CM * Plan of Care - Wilmer Sung RN - 06/01/2023 9:43 PM EDT Received patient stable hemodynamically. 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 He is s/p EVD placement on 04/17 and removal on 05/01. 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 Q6 Neuro and Vitals. Rehab on 06/02/2023 Problem: Adjustment to Illness (Stroke, Hemorrhagic) Goal: Optimal Coping Outcome: Ongoing (Interventions Implemented as Appropriate) Problem: Bowel Elimination Impaired (Stroke, Hemorrhagic) Goal: Effective Bowel Elimination Outcome: Ongoing (Interventions Implemented as Appropriate) Problem: Cerebral Tissue Perfusion (Stroke, Hemorrhagic) Goal: Optimal Cerebral Tissue Perfusion Outcome: Ongoing (Interventions Implemented as Appropriate) Problem: Sensorimotor Impairment (Stroke, Hemorrhagic) Goal: Improved Sensorimotor Function Outcome: Ongoing (Interventions Implemented as Appropriate) Problem: Swallowing Impairment (Stroke, Hemorrhagic) Goal: Oral Intake without Aspiration Outcome: Ongoing (Interventions Implemented as Appropriate) Vitals: Patient Vitals for the past 24 hrs: Temp Heart Rate From SP02 Pulse Resp BP SpO2 O2 Device 05/31/23 2200 -- 83 bpm 82 18 -- 97 % -- 05/31/23 2300 -- 80 bpm 80 18 -- 96 % -- 06/01/23 0000 -- 77 bpm 78 14 -- 95 % -- 06/01/23 0100 -- 84 bpm 85 19 -- 96 % -- 06/01/23 0200 -- 87 bpm 86 14 -- 96 % -- 06/01/23 0300 -- 82 bpm 82 19 -- 96 % -- 06/01/23 0400 36.7 ??C (98.1 ??F) 80 bpm 81 19 97/62 96 % -- 06/01/23 0500 -- 80 bpm 79 19 -- 96 % -- 06/01/23 0729 36.4 ??C (97.5 ??F) 78 bpm 78 10 105/68 96 % -- 06/01/23 0800 36.3 ??C (97.3 ??F) 94 bpm 95 23 128/76 92 % -- 06/01/23 0917 -- -- -- -- 107/67 -- -- 06/01/23 1346 36.7 ??C (98.1 ??F) (!) 107 bpm (!) 107 25 104/63 96 % RA 06/01/231999 36.5 ??C (97.7 ??F) 99 bpm 100 21 142/74 95 % RA * Plan of Care - Fransico Marie RN - 06/01/2023 6:42 PM EDT OUTCOME EVALUATION NOTE: OUTCOME SUMMARY: Patient is neurologically unchanged with known waxing and waning on orientation. Vision problems persist, which the patient endorses frustration over. VSS on RA in NSR. Up to chair for lunch. Safety maintained. PLAN MOVING FORWARD: Floor status Discharge planning Q6h assessments INDIVIDUALIZED FALL PREVENTION INTERVENTIONS: Patient-specific fall risk factors per assessment: Vision disturbance Assistance: 2 assist, FWW Supervision: Hands on Surveillance: Bed locked in low position, call hurley within reach, purposeful hourly rounding, clutter free environment, bed/chair alarm on, family at bedside Patient-specific fall prevention interventions for sensory deficits provided: Yes CPG GOAL OUTCOME EVALUATION: Continue care plan as documented. Problem: Adjustment to Illness (Stroke, Hemorrhagic) Goal: Optimal Coping Outcome: Ongoing (Interventions Implemented as Appropriate) Problem: Bowel Elimination Impaired (Stroke, Hemorrhagic) Goal: Effective Bowel Elimination Outcome: Ongoing (Interventions Implemented as Appropriate) Problem: Cerebral Tissue Perfusion (Stroke, Hemorrhagic) Goal: Optimal Cerebral Tissue Perfusion Outcome: Ongoing (Interventions Implemented as Appropriate) Problem: Cognitive Impairment (Stroke, Hemorrhagic) Goal: Optimal Cognitive Function Outcome: Ongoing (Interventions Implemented as Appropriate) Problem: Communication Impairment (Stroke, Hemorrhagic) Goal: Effective Communication Skills Outcome: Ongoing (Interventions Implemented as Appropriate) Problem: Functional Ability Impaired (Stroke, Hemorrhagic) Goal: Optimal Functional Ability Outcome: Ongoing (Interventions Implemented as Appropriate) Problem: Pain (Stroke, Hemorrhagic) Goal: Acceptable Pain Control Outcome: Ongoing (Interventions Implemented as Appropriate) Problem: Respiratory Compromise (Stroke, Hemorrhagic) Goal: Effective Oxygenation and Ventilation Outcome: Ongoing (Interventions Implemented as Appropriate) Problem: Sensorimotor Impairment (Stroke, Hemorrhagic) Goal: Improved Sensorimotor Function Outcome: Ongoing (Interventions Implemented as Appropriate) Problem: Swallowing Impairment (Stroke, Hemorrhagic) Goal: Oral Intake without Aspiration Outcome: Ongoing (Interventions Implemented as Appropriate) Problem: Urinary Elimination Impaired (Stroke, Hemorrhagic) Goal: Effective Urinary Elimination Outcome: Ongoing (Interventions Implemented as Appropriate) Problem: Fall Injury Risk Goal: Absence of Fall and Fall-Related Injury Outcome: Ongoing (Interventions Implemented as Appropriate) Problem: Adult Inpatient Plan of Care Goal: Plan of Care Review Outcome: Ongoing (Interventions Implemented as Appropriate) Goal: Patient-Specific Goal (Individualized) Outcome: Ongoing (Interventions Implemented as Appropriate) Goal: Absence of Hospital-Acquired Illness or Injury Outcome: Ongoing (Interventions Implemented as Appropriate) Goal: Optimal Comfort and Wellbeing Outcome: Ongoing (Interventions Implemented as Appropriate) Goal: Readiness for Transition of Care Outcome: Ongoing (Interventions Implemented as Appropriate) Problem: Adjustment to Illness (Delirium) Goal: Optimal Coping Outcome: Ongoing (Interventions Implemented as Appropriate) Problem: Altered Behavior (Delirium) Goal: Improved Behavioral Control Outcome: Ongoing (Interventions Implemented as Appropriate) Problem: Attention and Thought Clarity Impairment (Delirium) Goal: Improved Attention and Thought Clarity Outcome: Ongoing (Interventions Implemented as Appropriate) Problem: Sleep Disturbance (Delirium) Goal: Improved Sleep Outcome: Ongoing (Interventions Implemented as Appropriate) * Care Management - Melchor Frazier RN - 06/01/2023 1:23 PM EDT Physician Certification Statement for Non-Emergency Ambulance Services Section I - General Information Myla Acosta 1955 Medicare Number: [id number] Transport Date: 06/02/2023 (PCS is valid for round trips on this date and for all repetitive trips in the 60-day range as noted below.) Origin: [facility] Destination: [facility] PHONE: [phone] FAX: [phone] Nurse to Nurse report: [phone] [address] [place] [id number] Is the patient's stay covered under Medicare Part A (PPS/DRG)?: Yes Closest appropriate facility? Yes Transfer Type: N/A Section II - Medical Necessity Questionnaire Ambulance Transportation is medically necessary only if other means of transport are contraindicated or would be potentially harmful to the patient. To meet this requirement, the patient must be either bed confined or suffer from a condition such that transport by means other than ambulance is contraindicated by the patient's condition. 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 2) Is the patient bed confined as defined below? No To be bed confined the patient must satisfy all three of the following conditions: - unable to get up from bed without assistance AND unable to ambulate AND unable to sit in a chair or wheelchair. 3) Can this patient safely be transported by car or wheelchair van (i.e. seated during transport, without medical research associate or monitoring?): No 4) In addition to complete questions 1-3 above, please select any of the following conditions that apply: *Note: supporting documentation for any boxes checked must be maintained in the patient's medical records Unable to tolerate seated position for time needed to transport Section III - Signature of Physician or Healthcare Professional I certify that the above information is true and correct based on my evaluation of this patient, and represent that the patient requires transport by ambulance and that other forms of transport are contraindicated. I understand that this information will be used by the Centers of Medicare and Medicaid Services (CMS) to support the determination of medical necessity for ambulance services, and I represent that I have personal knowledge of the patient's condition at the time of transport. Melchor Frazier RN 06/01/23 Form was electronically signed and dated by the patient's Physician or Healthcare Professional *Form must be signed only by patient's attending physician for scheduled, repetitive transports. For non-repetitive, unscheduled ambulance transports, when unable to obtain the signature of the attending physician, this form was signed by Registered Nurse * Care Management - Melchor Frazier RN - 06/01/2023 1:22 PM EDT RN/CM received communication by [facility]. They have spoken to patient and spouse. They are accepting bed offer for [facility]. [facility] referral has been cancelled. Will work with [facility] for the timing of the BLS transport for 06/02/2023. No CD needed; No COVID test needed. Provider team updated. Melchor Frazier RN RN/CM - Cellphone: [phone] Pager: [phone] Covering Service RN/LINA * Care Management - Melchor Frazier RN - 06/01/2023 10:04 AM EDT RN/CM updated by provider team and patient is medically ready for discharge and recommendations continue for Acute Rehab. Tete Acosta (Spouse) - [phone] (M) RN/CM has spoken with spouse. His behavior has taken a turn and he is more amendable to working with the therapy teams and sitting up in chair. He is more clear thinking than ever. ~~~~~~~~~~~~~~~~~~~~~~~~~~~~~~~~~~~~~~~~~~~~~~~~~~~~~~~~~~~~~~~ Based on discussions with the multi-disciplinary healthcare team, the patient would benefit from Acute Rehab level of care at discharge. I have met with the floor representative to: discuss discharge planning needs. provide the [facility], Office of Care Management letter from the Analytics Senior Manager pertaining to rehab referrals. provide a letter describing our affiliations within the [facility] and educate about their right to choose where referrals are sent. provide the [facility] Star Quality Rating handout. review the different levels of rehab including SNF, swing, and acute. provide a list of facilities within their preferred geographic area. request that they provide at least three choices for referral. They have requested referrals to: [facility] Acute Rehabilitation and Sub-Acute (Swing) Rehab Levels of Care [address] [place] [address] [facility] PHONE: [phone] FAX: [phone] Nurse to Nurse report: [phone] [address] [place] [address] Anticipated discharge date: medically ready Note routed to a Reed Maker who will communicate referrals to facilities and provide any required information. Transportation: Ambulance transportation is medically necessary at discharge related to inability to sit for distance. I have discussed Medicare/Private Insurance reimbursement guidelines for ambulance transport. Patient's spouse, Tete, verbalized understanding of their potential financial obligation and agree with ambulance transport. DC planning post-rehab: Family will have /; she has earned time, can supervisor rework at times. Will work on private AD signed; ATTY coming to notary the FPOA. They had started guardianship but now has AD pending FPOA. Melchor Frazier RN RN/CM - Cellphone: [phone] Pager: [phone] Covering Service RN/CM * Plan of Care - Wilmer Sung RN - 05/31/2023 11:10 PM EDT Received patient stable hemodynamically. 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 He is s/p EVD placement on 04/17 and removal on 05/01. 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 Q6 Neuro and Vitals. Problem: Adjustment to Illness (Stroke, Hemorrhagic) Goal: Optimal Coping Outcome: Ongoing (Interventions Implemented as Appropriate) Problem: Bowel Elimination Impaired (Stroke, Hemorrhagic) Goal: Effective Bowel Elimination Outcome: Ongoing (Interventions Implemented as Appropriate) Problem: Cerebral Tissue Perfusion (Stroke, Hemorrhagic) Goal: Optimal Cerebral Tissue Perfusion Outcome: Ongoing (Interventions Implemented as Appropriate) Problem: Cognitive Impairment (Stroke, Hemorrhagic) Goal: Optimal Cognitive Function Outcome: Ongoing (Interventions Implemented as Appropriate) Problem: Communication Impairment (Stroke, Hemorrhagic) Goal: Effective Communication Skills Outcome: Ongoing (Interventions Implemented as Appropriate) Problem: Functional Ability Impaired (Stroke, Hemorrhagic) Goal: Optimal Functional Ability Outcome: Ongoing (Interventions Implemented as Appropriate) Problem: Swallowing Impairment (Stroke, Hemorrhagic) Goal: Oral Intake without Aspiration Outcome: Ongoing (Interventions Implemented as Appropriate) Problem: Adult Inpatient Plan of Care Goal: Plan of Care Review Outcome: Ongoing (Interventions Implemented as Appropriate) Goal: Patient-Specific Goal (Individualized) Outcome: Ongoing (Interventions Implemented as Appropriate) Goal: Absence of Hospital-Acquired Illness or Injury Outcome: Ongoing (Interventions Implemented as Appropriate) Goal: Optimal Comfort and Wellbeing Outcome: Ongoing (Interventions Implemented as Appropriate) Goal: Readiness for Transition of Care Outcome: Ongoing (Interventions Implemented as Appropriate) Problem: Sleep Disturbance (Delirium) Goal: Improved Sleep Outcome: Ongoing (Interventions Implemented as Appropriate) Vitals: Patient Vitals for the past 24 hrs: Temp Heart Rate From SP02 Pulse Resp BP SpO2 O2 Flow Rate (L/min) O2 Device 05/30/23 2330 -- 88 bpm 88 22 -- 95 % -- -- 05/31/23 0000 -- 94 bpm 91 19 115/63 91 % 2 L/min NC 05/31/23 0200 -- 93 bpm 93 19 -- 97 % -- -- 05/31/23 0400 36.4 ??C (97.5 ??F) 99 bpm (!) 101 23 (!) 143/94 98 % 2 L/min NC 05/31/23 0610 -- 91 bpm 92 18 113/77 95 % -- -- 05/31/23 0800 36.8 ??C (98.3 ??F) 90 bpm 89 20 113/74 95 % -- -- 05/31/23 1154 -- -- -- -- -- -- -- RA 05/31/23 1200 36.8 ??C (98.2 ??F) 97 bpm 97 30 115/69 95 % -- RA 05/31/23 1340 -- 94 bpm 94 12 -- 94 % -- -- 05/31/23 1523 -- -- -- -- 135/69 -- -- -- 05/31/23 1800 -- 90 bpm 90 19 111/64 96 % -- -- 05/31/23 2000 36.5 ??C (97.7 ??F) 84 bpm 84 18 104/63 97 % 2 L/min RA 05/31/232036 -- -- -- -- 104/63 -- -- -- * Plan of Care - Lj Fraga RN - 05/31/2023 6:30 PM EDTSummary: Shift Report OUTCOME EVALUATION NOTE: OUTCOME SUMMARY: Pt alert, orientation fluctuates, at times disoriented to situation and/or time. No other changes. VSS stable. Up to chair with PT. Reg diet tolerated well. Pt continues to struggle with voiding, bladder scan returns 230cc. PLAN MOVING FORWARD: Continue to bladder scan/cath PRN Pending rehab, needs Medicaid approval INDIVIDUALIZED FALL PREVENTION INTERVENTIONS: Patient-specific fall risk factors per assessment: [current deficits]: Lines, weakness, unsteady gait Assistance [level of assistance required for transfers and ambulation]: 2 Assist, hands on Supervision [direct monitoring required during toileting and ADLs]: Bed alarm on CPG GOAL OUTCOME EVALUATION: Problem: Adjustment to Illness (Stroke, Hemorrhagic) Goal: Optimal Coping Outcome: Ongoing (Interventions Implemented as Appropriate) Problem: Bowel Elimination Impaired (Stroke, Hemorrhagic) Goal: Effective Bowel Elimination Outcome: Ongoing (Interventions Implemented as Appropriate) Problem: Cerebral Tissue Perfusion (Stroke, Hemorrhagic) Goal: Optimal Cerebral Tissue Perfusion Outcome: Ongoing (Interventions Implemented as Appropriate) Problem: Cognitive Impairment (Stroke, Hemorrhagic) Goal: Optimal Cognitive Function Outcome: Ongoing (Interventions Implemented as Appropriate) Problem: Communication Impairment (Stroke, Hemorrhagic) Goal: Effective Communication Skills Outcome: Ongoing (Interventions Implemented as Appropriate) Problem: Functional Ability Impaired (Stroke, Hemorrhagic) Goal: Optimal Functional Ability Outcome: Ongoing (Interventions Implemented as Appropriate) Problem: Pain (Stroke, Hemorrhagic) Goal: Acceptable Pain Control Outcome: Ongoing (Interventions Implemented as Appropriate) Problem: Respiratory Compromise (Stroke, Hemorrhagic) Goal: Effective Oxygenation and Ventilation Outcome: Ongoing (Interventions Implemented as Appropriate) Problem: Sensorimotor Impairment (Stroke, Hemorrhagic) Goal: Improved Sensorimotor Function Outcome: Ongoing (Interventions Implemented as Appropriate) Problem: Swallowing Impairment (Stroke, Hemorrhagic) Goal: Oral Intake without Aspiration Outcome: Ongoing (Interventions Implemented as Appropriate) Problem: Urinary Elimination Impaired (Stroke, Hemorrhagic) Goal: Effective Urinary Elimination Outcome: Ongoing (Interventions Implemented as Appropriate) Problem: Fall Injury Risk Goal: Absence of Fall and Fall-Related Injury Outcome: Ongoing (Interventions Implemented as Appropriate) Problem: Adult Inpatient Plan of Care Goal: Plan of Care Review Outcome: Ongoing (Interventions Implemented as Appropriate) Goal: Patient-Specific Goal (Individualized) Outcome: Ongoing (Interventions Implemented as Appropriate) Goal: Absence of Hospital-Acquired Illness or Injury Outcome: Ongoing (Interventions Implemented as Appropriate) Goal: Optimal Comfort and Wellbeing Outcome: Ongoing (Interventions Implemented as Appropriate) Goal: Readiness for Transition of Care Outcome: Ongoing (Interventions Implemented as Appropriate) Problem: Adjustment to Illness (Delirium) Goal: Optimal Coping Outcome: Ongoing (Interventions Implemented as Appropriate) Problem: Altered Behavior (Delirium) Goal: Improved Behavioral Control Outcome: Ongoing (Interventions Implemented as Appropriate) Problem: Attention and Thought Clarity Impairment (Delirium) Goal: Improved Attention and Thought Clarity Outcome: Ongoing (Interventions Implemented as Appropriate) Problem: Sleep Disturbance (Delirium) Goal: Improved Sleep Outcome: Ongoing (Interventions Implemented as Appropriate) * Plan of Care - Michelle Morales RN - 05/30/2023 6:58 PM EDT Problem: Adjustment to Illness (Stroke, Hemorrhagic) Goal: Optimal Coping Outcome: Ongoing (Interventions Implemented as Appropriate) Problem: Bowel Elimination Impaired (Stroke, Hemorrhagic) Goal: Effective Bowel Elimination Outcome: Ongoing (Interventions Implemented as Appropriate) Problem: Cerebral Tissue Perfusion (Stroke, Hemorrhagic) Goal: Optimal Cerebral Tissue Perfusion Outcome: Ongoing (Interventions Implemented as Appropriate) Problem: Cognitive Impairment (Stroke, Hemorrhagic) Goal: Optimal Cognitive Function Outcome: Ongoing (Interventions Implemented as Appropriate) Problem: Communication Impairment (Stroke, Hemorrhagic) Goal: Effective Communication Skills Outcome: Ongoing (Interventions Implemented as Appropriate) Problem: Functional Ability Impaired (Stroke, Hemorrhagic) Goal: Optimal Functional Ability Outcome: Ongoing (Interventions Implemented as Appropriate) Problem: Pain (Stroke, Hemorrhagic) Goal: Acceptable Pain Control Outcome: Ongoing (Interventions Implemented as Appropriate) Problem: Respiratory Compromise (Stroke, Hemorrhagic) Goal: Effective Oxygenation and Ventilation Outcome: Ongoing (Interventions Implemented as Appropriate) Problem: Sensorimotor Impairment (Stroke, Hemorrhagic) Goal: Improved Sensorimotor Function Outcome: Ongoing (Interventions Implemented as Appropriate) Problem: Swallowing Impairment (Stroke, Hemorrhagic) Goal: Oral Intake without Aspiration Outcome: Ongoing (Interventions Implemented as Appropriate) Problem: Urinary Elimination Impaired (Stroke, Hemorrhagic) Goal: Effective Urinary Elimination Outcome: Ongoing (Interventions Implemented as Appropriate) Problem: Fall Injury Risk Goal: Absence of Fall and Fall-Related Injury Outcome: Ongoing (Interventions Implemented as Appropriate) Problem: Adult Inpatient Plan of Care Goal: Plan of Care Review Outcome: Ongoing (Interventions Implemented as Appropriate) Goal: Patient-Specific Goal (Individualized) Outcome: Ongoing (Interventions Implemented as Appropriate) Goal: Absence of Hospital-Acquired Illness or Injury Outcome: Ongoing (Interventions Implemented as Appropriate) Goal: Optimal Comfort and Wellbeing Outcome: Ongoing (Interventions Implemented as Appropriate) Goal: Readiness for Transition of Care Outcome: Ongoing (Interventions Implemented as Appropriate) Problem: Adjustment to Illness (Delirium) Goal: Optimal Coping Outcome: Ongoing (Interventions Implemented as Appropriate) Problem: Altered Behavior (Delirium) Goal: Improved Behavioral Control Outcome: Ongoing (Interventions Implemented as Appropriate) Problem: Attention and Thought Clarity Impairment (Delirium) Goal: Improved Attention and Thought Clarity Outcome: Ongoing (Interventions Implemented as Appropriate) Problem: Sleep Disturbance (Delirium) Goal: Improved Sleep Outcome: Ongoing (Interventions Implemented as Appropriate) * Consult Note - Coleman Orosco RN - 05/30/2023 11:40 AM EDT Images from the original note were not included. Wound Care Nurse Note Situation: Follow-up to see Myla Acosta for re-evaluation of right index finger and 4th fingerHAPIs Background: eD-H notes reviewed for history, admitting diagnosis and active problem list. Per MD note: 67 y.o. without significant PMH transferred for [facility]. Right arterial line was placed on 04/21 and removed on 05/02. Pressure injury to the right index finger from the A-line wrist board strap noted on 05/01. Wound Assessment and Care Provided: Patient seen this morning in room 342 in the chair, reason for visit explained to patient, permission received to assess skin. Anatomical location: Right index finger Dressing removed: Open to air Wound: new epithelial tissue Dressing applied: left open to air Photos taken: Anatomical location: Right fourth finger Dressing removed: Open to air Wound: new epithelial tissue and small amount of dry superficial crust Dressing applied: left open to air Photos taken: Nutritional Status Wt Readings from Last 1 Encounters: 05/30/23 105.9 kg (233 lb 7.5 oz) Body mass index is 34.98 kg/m??. Labs Lab Results Component Value Date ALBUMIN 3.9 05/21/2023 ALBUMIN 3.1 (L) 04/28/2023 ALBUMIN 3.5 04/23/2023 HA1C 6.0 (H) 04/19/2023 WBC 6.0 05/30/2023 WBC 5.8 05/29/2023 WBC 6.9 05/28/2023 HGB 9.7 (L) 05/30/2023 HGB 9.8 (L) 05/29/2023 HGB 10.3 (L) 05/28/2023 HCT 29.9 (L) 05/30/2023 HCT 30.2 (L) 05/29/2023 HCT 31.5 (L) 05/28/2023 PLATELET 204 05/30/2023 PLATELET 233 05/29/2023 PLATELET 234 05/28/2023 INR 1.1 04/23/2023 INR 1.1 04/19/2023 INR 1.1 04/18/2023 PT 12.7 (H) 04/23/2023 PT 12.2 04/19/2023 PT 12.4 04/18/2023 Assessment: The injuries to the right index and small fingers are with new epithelial tissue and are consideredresolved at this time. Wound Treatment Recommendations: Right index and small fingers can be left open to air Follow hospital standard for pressure injury prevention and skin care. Refer to adult/pediatric pressure injury prevention job aid in the clinical policy library. Wound Care will complete the consult at this time. If there are further issues please re-consult via eD-H. Please contact Coleman Orosco RN on pager [phone] or the wound care team at [phone] or pager [phone] with skin and wound care concerns or questions. * Plan of Care - Catrachita Chávez RN - 05/30/2023 3:43 AM EDT Problem: Adjustment to Illness (Stroke, Hemorrhagic) Goal: Optimal Coping Outcome: Ongoing (Interventions Implemented as Appropriate) Problem: Bowel Elimination Impaired (Stroke, Hemorrhagic) Goal: Effective Bowel Elimination Outcome: Ongoing (Interventions Implemented as Appropriate) Problem: Cerebral Tissue Perfusion (Stroke, Hemorrhagic) Goal: Optimal Cerebral Tissue Perfusion Outcome: Ongoing (Interventions Implemented as Appropriate) Problem: Cognitive Impairment (Stroke, Hemorrhagic) Goal: Optimal Cognitive Function Outcome: Ongoing (Interventions Implemented as Appropriate) Problem: Communication Impairment (Stroke, Hemorrhagic) Goal: Effective Communication Skills Outcome: Ongoing (Interventions Implemented as Appropriate) Problem: Functional Ability Impaired (Stroke, Hemorrhagic) Goal: Optimal Functional Ability Outcome: Ongoing (Interventions Implemented as Appropriate) Problem: Pain (Stroke, Hemorrhagic) Goal: Acceptable Pain Control Outcome: Ongoing (Interventions Implemented as Appropriate) Problem: Respiratory Compromise (Stroke, Hemorrhagic) Goal: Effective Oxygenation and Ventilation Outcome: Ongoing (Interventions Implemented as Appropriate) Problem: Sensorimotor Impairment (Stroke, Hemorrhagic) Goal: Improved Sensorimotor Function Outcome: Ongoing (Interventions Implemented as Appropriate) Problem: Swallowing Impairment (Stroke, Hemorrhagic) Goal: Oral Intake without Aspiration Outcome: Ongoing (Interventions Implemented as Appropriate) Problem: Urinary Elimination Impaired (Stroke, Hemorrhagic) Goal: Effective Urinary Elimination Outcome: Ongoing (Interventions Implemented as Appropriate) Problem: Fall Injury Risk Goal: Absence of Fall and Fall-Related Injury Outcome: Ongoing (Interventions Implemented as Appropriate) Problem: Adult Inpatient Plan of Care Goal: Plan of Care Review Outcome: Ongoing (Interventions Implemented as Appropriate) Goal: Patient-Specific Goal (Individualized) Outcome: Ongoing (Interventions Implemented as Appropriate) Goal: Absence of Hospital-Acquired Illness or Injury Outcome: Ongoing (Interventions Implemented as Appropriate) Goal: Optimal Comfort and Wellbeing Outcome: Ongoing (Interventions Implemented as Appropriate) Goal: Readiness for Transition of Care Outcome: Ongoing (Interventions Implemented as Appropriate) Problem: Adjustment to Illness (Delirium) Goal: Optimal Coping Outcome: Ongoing (Interventions Implemented as Appropriate) Problem: Altered Behavior (Delirium) Goal: Improved Behavioral Control Outcome: Ongoing (Interventions Implemented as Appropriate) Problem: Attention and Thought Clarity Impairment (Delirium) Goal: Improved Attention and Thought Clarity Outcome: Ongoing (Interventions Implemented as Appropriate) Problem: Sleep Disturbance (Delirium) Goal: Improved Sleep Outcome: Ongoing (Interventions Implemented as Appropriate) * Care Management - Angelia Thomas MSW - 05/29/2023 4:00 PM EDT This HOSPITAL MEDICINE DIRECTOR called by team as pt is appropriate for completing AD at this time, per Andi Abbott MD and Edna Byrd APRN. HOSPITAL MEDICINE DIRECTOR met with pt and . Pt verbalized that he would like Tete to make medical decisions, and son Royal and dtr Ángela to make together if cannot. Pt completed AD; original provided to pt, electronic copy uploaded to chart. Tete asking about Financial POA. Info given to her for local notaries who can do F-DPOAs. This HOSPITAL MEDICINE DIRECTOR to continue to follow. LUCIO Mercado [facility] Pager [phone] 05/29/23 4:02 PM * Consult Note - Smiley Simon APRN - 05/29/2023 2:52 PM EDT PATIENT: Myla Acosta : 1955 NEPHROLOGY CONSULT NOTE Myla 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 male with past medical history significant for right cerebellar intraparenchymal hemorrhage, with SBP noted to be in 200s. 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 Interval History: - No acute events overnight. - Patient seen and evaluated in person at bedside. - Lab and metabolic parameters reviewed. - Frustrated with changes in vision. PE: General: Alert, comfortable. Cooperative with exam. HEENT: Sclera white. Mucous membranes moist. No lymphadenopathy. CV: S1 and S2. HR regular. Resp: Lungs clear with no crackles or wheezes. Respirations non labored. Abd: Soft. + BS. No bruit. Non tender. Ext: Warm. No cyanosis. No edema. Skin: Warm and dry to touch. No rash. Neuro: Alert and oriented x4, no focal deficit. Psych: Mood appropriate Assessment and Recommendations: Myla 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 male consulted for OVI. Feeling frustrated with vision changes, wearing an eye patch helps some. Denies pain, shortness of breath, N/V. States he feels thirsty. Most recently, creatinine has trended up to 2.06 (today) from 1.17 (05/23/23), he is nonoliguric producing 850cc of urine last 24 hours. He does not appear volume overloaded with no edema and feeling thirsty. His oral intake is decreased over last 24 hours. He also had an uptrend in his creatinine 05/18/23 - 05/21/23, peaking at 2.55 in the setting of sinuspauses as well as contrast exposure. Lisinopril was held on 05/20/23. Lisinopril was reintroduced at 20mg (half dose) on 05/24/23 and increased to 40mg on 05/25/23. The most recent increase in creatinine may be a combination of restarting the ALAN inhibitor and its' dilating effect on the efferent arteriole combined with his relative hypotension contributing to decreasing renal perfusion. With his decrease in po intake, would match intake with output with IVF to ensure euvolemia. Recommend trending creatinine over next 24 hours with these changes. MEDICATIONS: bisacodyl EC 10 mg Oral BID bisacodyL 10 mg Rectal Daily chlorthalidone 25 mg Oral Nightly hydrALAZINE 100 mg Oral TID cefTRIAXone 1 g Intravenous Q24H amLODIPine 10 mg Oral Daily tamsulosin 0.4 mg Oral Daily thiamine 100 mg Intravenous Daily lisinopriL 40 mg Oral Daily cloNIDine 0.2 mg Oral TID enoxaparin 40 mg Subcutaneous Nightly polyethylene glycoL (MIRALAX) oral powder 17 g Oral Daily senna-docusate 1 tablet Oral BID aspirin 300 mg Rectal Daily Or aspirin 81 mg Oral Daily FLUoxetine 20 mg Oral Daily QUEtiapine 100 mg Oral Nightly terazosin 1 mg Oral BID ergocalciferoL (vitamin D2) 50,000 Units Oral Weekly No Known Allergies PHYSICAL EXAM: Last value Temperature Temp: 36.8 ??C (98.2 ??F) Heart Rate Heart Rate: 91 Blood Pressure BP: 106/74 Respiratory Rate Resp: 28 SpO2 SpO2: 97 % STUDIES: Labs: CBC: Recent Labs 05/29/23 0410 05/28/23 0512 05/27/23 0620 WBC 5.8 6.9 7.6 HGB 9.8* 10.3* 9.9* PLATELET 233 234 232 Chemistry: Recent Labs 05/29/23 0411 05/28/23 0510 05/27/23 0620 NA 138 137 137 K 3.9 3.6 4.0 CL 103 103 101 CO2 22 20* 23 BUN 34* 28* 27* CREATININE 2.06* 1.53* 1.84* GLUCOSE 101 102 100 Recent Labs 05/29/23 0411 05/28/23 0510 05/27/23 0620 CALCIUM 9.9 9.7 9.7 MAGNESIUM 0.86 0.78 0.86 PHOS 4.8* 3.4 4.5 LFT's: Recent Labs 05/21/23 1027 04/28/23 0120 04/23/23 0024 04/19/23 0035 BILITOT 0.4 0.5 0.4 0.3 BILIDIR -- 0.3 0.2 0.1 ALBUMIN 3.9 3.1* 3.5 3.9 ALKPHOS 94 61 64 66 ALT 30 38 26 19 AST 17 26 28 22 Smiley Simon APRN Section of Nephrology Pager [phone] Associated attestation - Costa Tariq MD - 05/29/2023 8:45 PM EDT I saw and discussed the patient with the OPERATIONS INTERN and agree with the assessment and plan in her note. Patient's predominant complaint today revolves around his vision. Kidney service reconsulted in the setting of again rising creatinine. Unclear at this point whether this constitutes predictable hemodynamic trend with titration of antihypertensives (particularly RAAS inhibition) and diuretics with significant improvement in achieved blood pressure. Patient has net negative volume over the past several days and FE urea consistent with prerenal picture. Patient is nonoliguric but urine output is down. Does not appear to be in heart failure picture and as such believe that we should target slightly positive fluid balance over the next 24 hours. He is status post dissection and unclear whether weare seeing some degree of malperfusion, but he is not currently demonstrating alarm features of renovascular compromise such as severe hypertension or flash pulmonary edema. Furthermore with his regimen including RAAS inhibition which would be targeted medical therapy in the setting. Would continueto follow the dissection per vascular's guidance * Consult Note - Gail Singh MD - 05/29/2023 2:33 PM EDT Images from the original note were not included. Ophthalmology Inpatient - Consultation Note Date of Consultation: 05/29/2023 Consult Service: Ophthalmology Place of Service: Inpatient Unit Reason for Consult: I am seeing Myla Acosta at the request of neurology. I have personally reviewed the available records, interviewed, and examined the patient. History of Present Illness: HPI per Dr. Garg on 05/29/23: Myla 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 He is s/p EVD placement on 04/17 and removal on 05/01. 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 Pt has required copious anti-hypertensive agents in order to achieve adequate BP control; unfortunately this has been complicated by profound bradycardia and, at times, episodes of brief asystole (05/13-05/14). Per family request, Palliative has been consulted and family meeting on 05/15. Pt is now DNR/DNI. Patient with history of multiple intracranial hemorrhages and complex recovery, admitted for ~1 month with some improvement in cognition, now complaining of vague vision changes in both eyes. States lines and faces appear distorted. Lines straighten out when covering one eye. Vision not great at distance. Has not seen eye doctor in ~20 years, no significant history. He's noticed this as he is waking up. Limited cognitive ability but cooperative. No eye pain. Hx HTN but no DM2. POHx: High myopia OU Active Problem List: Active Hospital Problems Diagnosis ICH (intracerebral hemorrhage) Resolved Hospital Problems No resolved problems to display. There are no active non-hospital problems to display for this patient. Review of Systems: Review of Systems Past Medical and Surgical History: No past medical history on file. No past surgical history on file. Medications: Current Facility-Administered Medications Ordered in [employer] Medication Dose Route Frequency Provider Last Rate Last Admin bisacodyl EC (Dulcolax) tablet 10 mg 10 mg Oral BID Edna Byrd OPERATIONS INTERN 10 mg at 05/29/23 1053 bisacodyL (Dulcolax) suppository 10 mg 10 mg Rectal Daily Edna Byrd OPERATIONS INTERN ondansetron (pf) (Zofran) (2 mg/mL) injection 4 mg 4 mg Intravenous Q8H PRN Edna Byrd OPERATIONS INTERN 4 mg at 05/29/23 0857 chlorthalidone (Hygroton) tablet 25 mg 25 mg Oral Nightly Edna Byrd OPERATIONS INTERN 25 mg at 05/28/232032 hydrALAZINE (Apresoline) tablet 100 mg 100 mg Oral TID Edna Byrd OPERATIONS INTERN 100 mg at 05/29/23 1448 cefTRIAXone (Rocephin) 1 g vial attach to sodium chloride 0.9% 50 mL Mini-Bag Plus 1 g Intravenous Q24H Agustina Garg MD Stopped at 05/29/23 0926 amLODIPine (Norvasc) tablet 10 mg 10 mg Oral Daily Agustina Garg MD 10 mg at 05/29/23 0856 tamsulosin (Flomax) capsule 0.4 mg 0.4 mg Oral Daily Agustina Garg MD 0.4 mg at 05/29/23 0856 thiamine (Vitamin B-1) (100 mg/mL) injection 100 mg 100 mg Intravenous Daily Agustina Garg MD 100 mg at 05/29/23 0902 lisinopriL (Zestril) tablet 40 mg 40 mg Oral Daily Agustina Garg MD 40 mg at 05/29/23 0856 cloNIDine (Catapres) tablet 0.2 mg 0.2 mg Oral TID Agustina Garg MD 0.2 mg at 05/29/23 1448 traMADoL (Ultram) tablet 50 mg 50 mg Oral Q8H PRN Agustina Garg MD simethicone (Mylicon) (40 mg/0.6mL) oral liquid 40 mg 40 mg Oral Q6H PRN Mando Duncan PA camphor-methyl salicyl-menthoL (Bengay Ultra Strength) 4-30-10 % cream Topical (Top) BID PRN Mando Duncan PA enoxaparin (Lovenox) (40 mg/0.4 mL) subcutaneous injection 40 mg 40 mg Subcutaneous Nightly Mando Duncan PA 40 mg at 05/28/232033 polyethylene glycoL (Miralax) packet 17 g 17 g Oral Daily Mando Duncan PA 17 g at 05/29/23 0857 senna-docusate (Pericolace) 8.6-50 mg per tablet 1 tablet 1 tablet Oral BID Mando Duncan PA 1 tablet at 05/28/232032 QUEtiapine (SEROquel) tablet 12.5 mg 12.5 mg Oral TID PRN Nayana Mcginnis APRN 12.5 mg at 05/27/23 1530 enalaprilat (Vasotec) (1.25 mg/mL) injection 1.25 mg 1.25 mg Intravenous Q6H PRN Nayana Mcginnis APRN 1.25 mg at 05/25/23 0611 polyethylene glycoL (Miralax) packet 17 g 17 g Oral Daily PRN Nayana Mcginnis APRN And bisacodyL (Dulcolax) suppository 10 mg 10 mg Rectal Daily PRN Nayana Mcginnis APRN And bisacodyl EC (Dulcolax) tablet 10 mg 10 mg Oral BID PRN Nayana Mcginnis APRN 10 mg at 05/28/23 0855 And lactulose (Chronulac) (0.67 gram/mL) oral liquid 20 g 20 g Oral Daily PRN Nayana Mcginnis APRN And lactulose (Chronulac) (0.67 gram/mL) oral liquid 20 g 20 g Oral Daily PRN Nayana Mcginnis APRN 20 g at 05/27/232050 And magnesium citrate oral liquid 296 mL 296 mL Oral Once PRN Nayana Mcginnis APRN aspirin suppository 300 mg 300 mg Rectal Daily Nayana Mcginnis APRN Or aspirin chewable tablet 81 mg 81 mg Oral Daily Nayana Mcginnis APRN 81 mg at 05/29/23 0856 FLUoxetine (PROzac) capsule 20 mg 20 mg Oral Daily Nayana Mcginnis APRN 20 mg at 05/29/23 0856 QUEtiapine (SEROquel) tablet 100 mg 100 mg Oral Nightly Nayana Mcginnis APRN 100 mg at 05/28/23 1817 terazosin (Hytrin) capsule 1 mg 1 mg Oral BID Nayana Mcginnis APRN 1 mg at 05/29/23 0902 acetaminophen (Tylenol) tablet 975 mg 975 mg Oral Q6H PRN Nayana Mcginnis APRN 975 mg at 05/21/23 1202 oxyCODONE (Roxicodone) tablet 5 mg 5 mg Oral Q6H PRN Agustina Garg MD potassium chloride ER (Klor-Con M) crystal tablet 40 mEq 40 mEq Oral Q4H PRN Nayana Mcginnis APRN Or potassium chloride ER (Klor-Con M) crystal tablet 20 mEq 20 mEq Per NG tube Q4H PRN Aidan Mcginnis APRN senna-docusate (Pericolace) 8.6-50 mg per tablet 2 tablet 2 tablet Oral BID PRN Nayana Mcginnis APRN haloperidoL lactate (Haldol) (5 mg/mL) injection 2 mg 2 mg Intravenous Q6H PRN Nayana Mcginnis OPERATIONS INTERN 2 mg at 05/21/23 1302 OLANZapine (ZyPREXA) (5 mg/mL) injection 5 mg 5 mg Intramuscular Once PRN Nayana Mcginnis APRN niCARdipine (Cardene) (0.2 mg/mL) in sodium chloride 200 mL infusion 0-15 mg/hr Intravenous Continuous PRN Nayana Mcginnis APRN 0 mL/hr at 05/22/23 1441 0 mg/hr at 05/22/23 1441 ergocalciferoL (vitamin D2) (8,000 units/mL) oral liquid 50,000 Units 50,000 Units Oral Weekly Nayana Mcginnis APRN 50,000 Units at 05/29/23 1053 carboxymethylcellulose (Refresh Plus) 0.5 % ophthalmic drops 1 drop 1 drop Both Eyes TID PRN Bharathi Ashford T, DO 1 drop at 05/14/23 1203 ipratropium-albuteroL (Duoneb) 0.5 mg-3 mg(2.5 mg base)/3 mL nebulizer solution 3 mL 3 mL Nebulization Q4H PRN Bharathi Ashford T, DO sodium chloride (NebuSal) 3 % nebulizer solution 4 mL 4 mL Nebulization Q4H PRN Bharathi Ashford T, DO No current [facility]-ordered outpatient medications on file. Prior To Admission Medications: No medications prior to admission. Allergies: No Known Allergies Family History: No family history on file. Social History and Habits: Social History Socioeconomic History Marital status: Spouse name: Not on file Number of children: Not on file Years of education: Not on file Highest education level: Not on file Occupational History Not on file Tobacco Use Smoking status: Unknown Smokeless tobacco: Not on file Substance and Sexual Activity Alcohol use: Defer Drug use: Defer Sexual activity: Defer Other Topics Concern Not on file Social History Narrative to Tete X 44 years. They have 3 children: all in their 20s. 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 He has a significant alcohol abuse history with daily drinking. Was never one to go to get medical care. Social Determinants of Health Financial Resource Strain: Not on file Food Insecurity: No Food Insecurity (04/20/2023) Hunger Vital Sign Worried About Running Out of Food in the Last Year: Never true Ran Out of Food in the Last Year: Never true Transportation Needs: No Transportation Needs (04/20/2023) PRAPARE - Transportation Lack of Transportation (Medical): No Lack of Transportation (Non-Medical): No Physical Activity: Not on file Intimate Partner Violence: Not on file Housing Stability: Unknown (04/20/2023) Housing Stability Vital Sign Unable to Pay for Housing in the Last Year: No Number of Places Lived in the Last Year: Not on file Unstable Housing in the Last Year: No Exam: Base Eye Exam Visual Acuity Right Left Near sc 20/25 20/20 Tonometry (Tonopen, 2:31 PM) Right Left Pressure 15 19 Pupils Dark Light Shape React APD Right 5 3 Round Brisk None Left 5 3 Round Brisk None Visual Rodriguez Left Right Full Full Neuro/Psych Mood/Affect: Cooperative but disoriented Dilation Both eyes: 1.0% Mydriacyl, 2.5% Phenylephrine @ 2:31 PM Strabismus Exam Method: Alternate Cover, Cover-Uncover Distance Near Near +3DS N Bifocals Ortho X(T)' 20-30 0 0 0 0 0 0 0 0 0 0 0 0 0 0 0 0 Slit Lamp and Fundus Exam External Exam Right Left External Normal Normal Slit Lamp Exam Right Left Lids/Lashes Normal Normal Conjunctiva/Sclera White and quiet White and quiet Cornea Clear Clear Anterior Chamber Deep and quiet Deep and quiet Iris Round and reactive Round and reactive Lens 1-2+ NS 1-2+ NS Anterior Vitreous Normal Normal Patient's pupils were pharmacologically dilated at 230pm. Pupils will not be a reliable indicator of neurologic status for 24 hours. 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 Such an intermittent exodeviation at near (not at distance) may be seen with brain injuries. Recovery dependent on anyrebound of brain injury. -Otherwise, no gross limitations in EOM's and excellent vision (20/20 OD, 20/25 OS). -Recommend continuing monocular patching as needed if subjectively helping. Magnitude of current deviation is too large for prism in glasses and may change. Discussed that diplopia may improve somewhat over the following weeks to months. If so, prism in glasses may be helpful. -No further recommendations from an ophthalmology perspective -Otherwise, structurally normal eye exam. Myla exhibits excellent visual acuity with best correction, normal pupillary reaction without rAPD, normal intraocular pressures, full confrontational visual rodriguez, and full ocular motility. On slit lamp exam today, he had grossly normal anterior and posterior ocular structures without signs of anterior segment issues, retinal pathology, or optic nerve e chary/atrophy. -We will plan to follow up in 2-3 months with brim and crown presser at High Myopia OU -Has not seen eye doctor in 20 years. Likely needs updated prescription for improved distance vision -Recommend establishing with local aviation electronic warfare operator for routine eye exams and refraction Nahum Sepulveda DO PGY-2, Ophthalmology Service Pager #[phone] I saw the patient with the following level of supervision from the attending: Direct Thank you for the interesting consult. Recommendations are above, please page if further consultation required. I saw and evaluated the patient with Dr. Sepulveda. I have reviewed the history during the visit and agree with the details as written. My ophthalmologic exam confirms the findings. The assessment and plan were formulated in discussion with me at the time of the visit and I agree with them as documented. 05/29/2023 Gail Singh MD Coloring Machine Operator, Pediatric Ophthalmology Section of Ophthalmology, Department of Surgery [facility] * Care Management - Melchor Frazier RN - 05/29/2023 7:11 AM EDT OFFICE OF CARE MANAGEMENT PROGRESS NOTE LOS: Hospital Day 41 days Chart reviewed, care reviewed with primary team and at interdisciplinary rounds. Patient continues to meet inpatient level of care related to: SD and remains in the hospital related to provider note of 05/28/2023: Today's plan: Myla Acosta remains neurologically stable. Patient reported visual distortion previously and EEG completed and no discrete seizures, epileptiform discharges, rhythmic or periodic patterns were seen. Continuing ceftriaxone for UTI. Encouraging patient to hydrate with oral hydration. Patient is due for a bowel movement as last BM several days ago. He has both scheduled and PRN medications available that need to be given today and discussed with primary RN. Patient had episode of emesis today. Will obtain abdominal xray. Continuing to optimize management of patient's blood pressure and HR with the assistance of Cardiology. His HR continues to be above Cardiology's goal, decreased hydralazi ne today as this can drive tachycardia. Patient is not medically ready at this time Functional status prior to admission: Independent Home Environment: Others in the home: spouse. Current Living Arrangements: home/apartment/condo. Accessibility Concerns: 0 PATRICIA,. Current Functional Ability: Assistive Person and Equipment DME used at home: (has grab bars available) DME Needed at Discharge: Pending PT / OT Recommendations Last Physical Therapy Recommendation: acute rehabilitation facility with to be determined Last Occupational Therapy Recommendation: detention facility with to be determined Patient is insured through: Primary Insurance: MEDICARE Payor: MEDICARE / Plan: MEDICARE PART A & B / Product Type: *No Product type* / Secondary Insurance: [employer] [facility] Prescription Coverage: Yes Preferred Pharmacy: [id number] [address] Plan for discharge is: Pending Hospital Course and PT/OT Recommendations Agency Referrals & Follow-up Care: Pending Hospital Course and PT/OT Recommendations [facility] Acute Rehabilitation and Sub-Acute (Swing) Rehab Levels of Care [address] [place] [address] *Has declined x 2 Will follow with PT/OT and family and expand closer to discharge Transportation: pending needs closer to discharge Barriers to discharge: Discharge planning Psych: Adjustment to diagnosis/illness, Decision-making, Coping/stress, Grief/loss, Cognitive/perceptual Supports: Caregiver support RN/CM will need to follow PT/OT recommendations and discuss with spouse closer to discharge for rehab placement needs. Pending Guardianship - HOSPITAL MEDICINE DIRECTOR following after it was started 05/08/2023 Pending LTC review - LTC-RS to follow up once Guardianship completed RN/CM following with HOSPITAL MEDICINE DIRECTOR and LTC-RS: Advance Directives: none per spouse Guardianship discussion with HOSPITAL MEDICINE DIRECTOR and application process started - 05/05/2023 LTC referral sent to [facility]: 05/01/2023 Plan going forward: Service Care Management will continue to follow and assist with discharge planning and coordination of care as indicated. Anticipated Date of Discharge: to be determined Melchor Frazier RN RN/CM - Cellphone: [phone] Pager: [phone] Covering Service RN/CM * Plan of Care - Catrachita Chávez RN - 05/29/2023 5:00 AM EDT Problem: Adjustment to Illness (Stroke, Hemorrhagic) Goal: Optimal Coping Outcome: Ongoing (Interventions Implemented as Appropriate) Problem: Bowel Elimination Impaired (Stroke, Hemorrhagic) Goal: Effective Bowel Elimination Outcome: Ongoing (Interventions Implemented as Appropriate) Problem: Cerebral Tissue Perfusion (Stroke, Hemorrhagic) Goal: Optimal Cerebral Tissue Perfusion Outcome: Ongoing (Interventions Implemented as Appropriate) Problem: Cognitive Impairment (Stroke, Hemorrhagic) Goal: Optimal Cognitive Function Outcome: Ongoing (Interventions Implemented as Appropriate) Problem: Communication Impairment (Stroke, Hemorrhagic) Goal: Effective Communication Skills Outcome: Ongoing (Interventions Implemented as Appropriate) Problem: Functional Ability Impaired (Stroke, Hemorrhagic) Goal: Optimal Functional Ability Outcome: Ongoing (Interventions Implemented as Appropriate) Problem: Pain (Stroke, Hemorrhagic) Goal: Acceptable Pain Control Outcome: Ongoing (Interventions Implemented as Appropriate) Problem: Respiratory Compromise (Stroke, Hemorrhagic) Goal: Effective Oxygenation and Ventilation Outcome: Ongoing (Interventions Implemented as Appropriate) Problem: Sensorimotor Impairment (Stroke, Hemorrhagic) Goal: Improved Sensorimotor Function Outcome: Ongoing (Interventions Implemented as Appropriate) Problem: Swallowing Impairment (Stroke, Hemorrhagic) Goal: Oral Intake without Aspiration Outcome: Ongoing (Interventions Implemented as Appropriate) Problem: Urinary Elimination Impaired (Stroke, Hemorrhagic) Goal: Effective Urinary Elimination Outcome: Ongoing (Interventions Implemented as Appropriate) Problem: Fall Injury Risk Goal: Absence of Fall and Fall-Related Injury Outcome: Ongoing (Interventions Implemented as Appropriate) Problem: Adult Inpatient Plan of Care Goal: Plan of Care Review Outcome: Ongoing (Interventions Implemented as Appropriate) Goal: Patient-Specific Goal (Individualized) Outcome: Ongoing (Interventions Implemented as Appropriate) Goal: Absence of Hospital-Acquired Illness or Injury Outcome: Ongoing (Interventions Implemented as Appropriate) Goal: Optimal Comfort and Wellbeing Outcome: Ongoing (Interventions Implemented as Appropriate) Goal: Readiness for Transition of Care Outcome: Ongoing (Interventions Implemented as Appropriate) Problem: Adjustment to Illness (Delirium) Goal: Optimal Coping Outcome: Ongoing (Interventions Implemented as Appropriate) Problem: Altered Behavior (Delirium) Goal: Improved Behavioral Control Outcome: Ongoing (Interventions Implemented as Appropriate) Problem: Attention and Thought Clarity Impairment (Delirium) Goal: Improved Attention and Thought Clarity Outcome: Ongoing (Interventions Implemented as Appropriate) Problem: Sleep Disturbance (Delirium) Goal: Improved Sleep Outcome: Ongoing (Interventions Implemented as Appropriate) * Plan of Care - Rachael Galindo RN - 05/28/2023 11:46 AM EDT Problem: Adjustment to Illness (Stroke, Hemorrhagic) Goal: Optimal Coping Outcome: Ongoing (Interventions Implemented as Appropriate) Problem: Bowel Elimination Impaired (Stroke, Hemorrhagic) Goal: Effective Bowel Elimination Outcome: Ongoing (Interventions Implemented as Appropriate) Problem: Cerebral Tissue Perfusion (Stroke, Hemorrhagic) Goal: Optimal Cerebral Tissue Perfusion Outcome: Ongoing (Interventions Implemented as Appropriate) Problem: Cognitive Impairment (Stroke, Hemorrhagic) Goal: Optimal Cognitive Function Outcome: Ongoing (Interventions Implemented as Appropriate) Problem: Communication Impairment (Stroke, Hemorrhagic) Goal: Effective Communication Skills Outcome: Ongoing (Interventions Implemented as Appropriate) Problem: Functional Ability Impaired (Stroke, Hemorrhagic) Goal: Optimal Functional Ability Outcome: Ongoing (Interventions Implemented as Appropriate) Problem: Pain (Stroke, Hemorrhagic) Goal: Acceptable Pain Control Outcome: Ongoing (Interventions Implemented as Appropriate) Problem: Respiratory Compromise (Stroke, Hemorrhagic) Goal: Effective Oxygenation and Ventilation Outcome: Ongoing (Interventions Implemented as Appropriate) Problem: Sensorimotor Impairment (Stroke, Hemorrhagic) Goal: Improved Sensorimotor Function Outcome: Ongoing (Interventions Implemented as Appropriate) Problem: Swallowing Impairment (Stroke, Hemorrhagic) Goal: Oral Intake without Aspiration Outcome: Ongoing (Interventions Implemented as Appropriate) Problem: Urinary Elimination Impaired (Stroke, Hemorrhagic) Goal: Effective Urinary Elimination Outcome: Ongoing (Interventions Implemented as Appropriate) Problem: Fall Injury Risk Goal: Absence of Fall and Fall-Related Injury Outcome: Ongoing (Interventions Implemented as Appropriate) Problem: Adult Inpatient Plan of Care Goal: Plan of Care Review Outcome: Ongoing (Interventions Implemented as Appropriate) Goal: Patient-Specific Goal (Individualized) Outcome: Ongoing (Interventions Implemented as Appropriate) Goal: Absence of Hospital-Acquired Illness or Injury Outcome: Ongoing (Interventions Implemented as Appropriate) Goal: Optimal Comfort and Wellbeing Outcome: Ongoing (Interventions Implemented as Appropriate) Goal: Readiness for Transition of Care Outcome: Ongoing (Interventions Implemented as Appropriate) Problem: Adjustment to Illness (Delirium) Goal: Optimal Coping Outcome: Ongoing (Interventions Implemented as Appropriate) Problem: Altered Behavior (Delirium) Goal: Improved Behavioral Control Outcome: Ongoing (Interventions Implemented as Appropriate) Problem: Attention and Thought Clarity Impairment (Delirium) Goal: Improved Attention and Thought Clarity Outcome: Ongoing (Interventions Implemented as Appropriate) Problem: Sleep Disturbance (Delirium) Goal: Improved Sleep Outcome: Ongoing (Interventions Implemented as Appropriate) * Plan of Care - Lilibeth Collazo RN - 05/27/2023 6:33 PM EDT Patient displayed increased agitation as compared to recent previous shifts. Patient was uncooperative and hostile at times. I attempted multiple times throughout the shift to get the patient up to the chair, but he strongly refused each time. I also tried many time to get the patient to take lactose for his constipation, however the patient again strongly refused. Problem: Adjustment to Illness (Stroke, Hemorrhagic) Goal: Optimal Coping Outcome: Ongoing (Interventions Implemented as Appropriate) Problem: Bowel Elimination Impaired (Stroke, Hemorrhagic) Goal: Effective Bowel Elimination Outcome: Ongoing (Interventions Implemented as Appropriate) Problem: Cerebral Tissue Perfusion (Stroke, Hemorrhagic) Goal: Optimal Cerebral Tissue Perfusion Outcome: Ongoing (Interventions Implemented as Appropriate) Problem: Cognitive Impairment (Stroke, Hemorrhagic) Goal: Optimal Cognitive Function Outcome: Ongoing (Interventions Implemented as Appropriate) Problem: Communication Impairment (Stroke, Hemorrhagic) Goal: Effective Communication Skills Outcome: Ongoing (Interventions Implemented as Appropriate) Problem: Functional Ability Impaired (Stroke, Hemorrhagic) Goal: Optimal Functional Ability Outcome: Ongoing (Interventions Implemented as Appropriate) Problem: Pain (Stroke, Hemorrhagic) Goal: Acceptable Pain Control Outcome: Ongoing (Interventions Implemented as Appropriate) Problem: Respiratory Compromise (Stroke, Hemorrhagic) Goal: Effective Oxygenation and Ventilation Outcome: Ongoing (Interventions Implemented as Appropriate) Problem: Sensorimotor Impairment (Stroke, Hemorrhagic) Goal: Improved Sensorimotor Function Outcome: Ongoing (Interventions Implemented as Appropriate) Problem: Swallowing Impairment (Stroke, Hemorrhagic) Goal: Oral Intake without Aspiration Outcome: Ongoing (Interventions Implemented as Appropriate) Problem: Urinary Elimination Impaired (Stroke, Hemorrhagic) Goal: Effective Urinary Elimination Outcome: Ongoing (Interventions Implemented as Appropriate) Problem: Fall Injury Risk Goal: Absence of Fall and Fall-Related Injury Outcome: Ongoing (Interventions Implemented as Appropriate) Problem: Adult Inpatient Plan of Care Goal: Plan of Care Review Outcome: Ongoing (Interventions Implemented as Appropriate) Goal: Patient-Specific Goal (Individualized) Outcome: Ongoing (Interventions Implemented as Appropriate) Goal: Absence of Hospital-Acquired Illness or Injury Outcome: Ongoing (Interventions Implemented as Appropriate) Goal: Optimal Comfort and Wellbeing Outcome: Ongoing (Interventions Implemented as Appropriate) Goal: Readiness for Transition of Care Outcome: Ongoing (Interventions Implemented as Appropriate) Problem: Adjustment to Illness (Delirium) Goal: Optimal Coping Outcome: Ongoing (Interventions Implemented as Appropriate) Problem: Altered Behavior (Delirium) Goal: Improved Behavioral Control Outcome: Ongoing (Interventions Implemented as Appropriate) Problem: Attention and Thought Clarity Impairment (Delirium) Goal: Improved Attention and Thought Clarity Outcome: Ongoing (Interventions Implemented as Appropriate) Problem: Sleep Disturbance (Delirium) Goal: Improved Sleep Outcome: Ongoing (Interventions Implemented as Appropriate) * Consult Note - Jay Jay Cannon MD - 05/26/2023 1:36 PM EDT [facility] Department of Cardiology Consult Progress Note Reason for consult: hypertension Brief Course: Myla 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 Cardiology and Vascular Medicine have been consulted on numerous occasions for assistance with blood pressure management. S: - Nauseated - No CP, SOB, palpitations EXAM/ DATA Vitals reviewed. Exam notable for sitting in chair no distress, chroncially ill appearing, no eelvated JVP, s1 and s2 without s3 or s4. No rales. No edema. Labs reviewed. EKG reviewed. Echocardiogram from 05/22/2023 reviewed. ASSESSMENT AND PLAN Myla 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 male with history as noted above for whom cardiology is re-consulted for assistance with blood pressure management. Hydralazine 200mg TID is an excessively high dose to use in this patient and will drive tachycardia, as such this should be reduced as we add therapies. He should be started on amlodipine 10mg. After 2 days amlodipine (it will take time for this to workso please be patient), start chlorthalidone 25mg and increase to 50mg as needed. If additional therapy is needed, please start Spironolactone again. #Poorly Controlled Hypertension Recommendations: -Start Amlodipine 10mg -If not controlled after 2 days, start chlorthalidone 25mg then uptitrate to 50mg daily if additional control is needed -If not controlled after 2 additional days, start Spironolactone 25mg then increase to 50mg if additional control is needed -Wean hydralazine 200mg as these other therapies start to work -Do not use carvedilol given his prior pauses Case was discussed with Dr. Joshi who agrees with recommendations as documented above. Consult service will continue to follow patient. Recommendations are above, please page if further consultation required. Jay Jay Cannon MD Branding Machine Operator [id number] * Care Management - Melchor Frazier RN - 05/26/2023 11:20 AM EDT RN/CM has received decline from [facility] - again. [facility] - 11:12 AM We are going to decline at this point. Concerns about tolerance, dispo, lack of capacity/AD/guardian, continued declining/refusing of interventions at times. Seems he needs a longer stay than we provide, still pretty low functional status as well. Decline reason: Does Not Meet Admission Criteria RN/CM following clinical course and rehab recommendations and will follow up with spouse next week. Melchor Frazier RN RN/CM - Cellphone: [phone] Pager: [phone] Covering Service RN/CM * Care Management - Melchor Frazier RN - 05/25/2023 1:49 PM EDT RN/CM will ask RS to reopen ACUTE referral to: [facility] Acute Rehabilitation and Sub-Acute (Swing) Rehab Levels of Care [address] [place] [address] Pt doing better and spouse wanting him to go to [facility] for rehab. Melchor Frazier RN RN/CM - Cellphone: [phone] Pager: [phone] Covering Service RN/CM * Consult Note - Di Hernandez RN - 05/25/2023 1:09 PM EDT Picc Catheter Removal: PICC Removal Catheter Removal: Date: 05/25/23 [ x ] Catheter removed intact with 50 cm removed from right arm, per MD order. Reason for removal: [ x ] End of Therapy [ ] Phlebitis [ ] Cellulitis [ ] Catheter-related infection: [ ] Suspected [ ] Documented [ ] Thrombus: [ ] Suspected [ ] Documented [ ] Infiltration [ ] Other Description of insertion/exit site: [x ] no signs of infection, no bleeding at site [ ] other (see narrative below) Patient Education: [ ] Patient instructed to observe site for redness, swelling, discomfort and /or exudates and call a Healthcare Provider if any of these signs/symptoms present. Comments: * Care Management - Angelia Thomas MSW - 05/24/2023 12:25 PM EDT HOSPITAL MEDICINE DIRECTOR notified by PA that pt appropriate for AD at this time. HOSPITAL MEDICINE DIRECTOR met with pt and in room. Pt refusing to complete AD at this time. Copy of AD provided to as well as HOSPITAL MEDICINE DIRECTOR ph#; to call if pt wants to complete AD and if team still feels he is appropriate. HOSPITAL MEDICINE DIRECTOR to continue to follow. LUCIO Mercado [facility] SW Pager [phone] 05/24/23 12:26 PM * Care Management - Angelia Thomas HOSPITAL MEDICINE DIRECTOR - 05/23/2023 1:12 PM EDT This HOSPITAL MEDICINE DIRECTOR met with pt and today for check in. Pt somewhat participatory in conversation with much help from Tete. Tete hopeful that pt continues to do better, endorsees difficult weekend with lots of ups and downs. Tete talking to pt about DPOA, hopeful he will be able to completeone prior to guardianship court hearing. No updates on guardianship hearing at this time. HOSPITAL MEDICINE DIRECTOR to continue to follow. [facility] Merc[facility] Pager [phone] Ext [phone] 05/23/23 1:13 PM * Consult Note - Hali Cleveland RN - 05/23/2023 10:54 AM EDT Images from the original note were not included. Wound Care Nurse Note Situation: Follow-up to see Myla Acosta for re-evaluation of right index finger and 4th fingerHAPIs Background: eD-H notes reviewed for history, admitting diagnosis and active problem list. Per MD note: 67 y.o. without significant PMH transferred for [facility]. Right arterial line was placed on 04/21 and removed on 05/02. Pressure injury to the right index finger from the A-line wrist board strap noted on 05/01. Wound Assessment and Care Provided: Patient seen this morning in room 342 in bed, reason for visit explained to patient, permission received to assess skin. Anatomical location: Right index finger Dressing removed: Open to air Wound: Reabsorbed blister with the beginnings of epidermal lifting Dressing applied: left open to air Photos taken: Anatomical location: Right fourth finger Dressing removed: Open to air Wound: Dry reabsorbing blisters with the beginnings of epidermal lifting Dressing applied: left open to air Photos taken: Munir Score: 15 Nutritional Status Wt Readings from Last 1 Encounters: 05/23/23 113.6 kg (250 lb 7.1 oz) Body mass index is 37.52 kg/m??. Labs Lab Results Component Value Date ALBUMIN 3.9 05/21/2023 ALBUMIN 3.1 (L) 04/28/2023 ALBUMIN 3.5 04/23/2023 HA1C 6.0 (H) 04/19/2023 WBC 6.1 05/23/2023 WBC 6.7 05/22/2023 WBC 6.4 05/21/2023 HGB 9.6 (L) 05/23/2023 HGB 8.9 (L) 05/22/2023 HGB 8.8 (L) 05/21/2023 HCT 29.4 (L) 05/23/2023 HCT 27.2 (L) 05/22/2023 HCT 28.2 (L) 05/21/2023 PLATELET 204 05/23/2023 PLATELET 190 05/22/2023 PLATELET 192 05/21/2023 INR 1.1 04/23/2023 INR 1.1 04/19/2023 INR 1.1 04/18/2023 PT 12.7 (H) 04/23/2023 PT 12.2 04/19/2023 PT 12.4 04/18/2023 Assessment: The reabsorbing blisters of the right index and small fingers are considered resorbed with the beginnings of epidermal lifting. To date, no full thickness tissue damage has been appreciated. Wound Care Recommendations: Right Index finger and fourth finger: Mepilex Border dressing or left open to air-nursing to changeevery 3 days and as needed for dressing with 50% or greater strike though drainage. 1. Cleanse wound with dermal wound cleanser and gauze. 2. Apply Mepilex Border dressing Wound care will follow up weekly Please contact Hali Cleveland RN on secure chat or the wound care team at [phone] or pager [phone] with skin and wound care concerns or questions. * Plan of Care - Wilmer Sung RN - 05/22/2023 10:25 PM EDT Received patient on RA Stable hemodynamically, Cardene kassi on standby Patient was made HOSE SUSPENDER CUTTER on 05/20,but revised on 05/21. Currently Zuri gtt keep BP Systolic>160 on standby Patient was admitted for IPH with ANIL s/p EVD found to have Type B dissection, downgraded to neurology after 30 days in [facility] ICU with worsening OVI. Plan. Q4 neuro. Q2 Vitals. Problem: Restraint, Nonbehavioral (Nonviolent) Goal: Discontinuation Criteria Achieved Outcome: Ongoing (Interventions Implemented as Appropriate) Problem: Adjustment to Illness (Stroke, Hemorrhagic) Goal: Optimal Coping Outcome: Ongoing (Interventions Implemented as Appropriate) Problem: Bowel Elimination Impaired (Stroke, Hemorrhagic) Goal: Effective Bowel Elimination Outcome: Ongoing (Interventions Implemented as Appropriate) Problem: Cerebral Tissue Perfusion (Stroke, Hemorrhagic) Goal: Optimal Cerebral Tissue Perfusion Outcome: Ongoing (Interventions Implemented as Appropriate) Problem: Cognitive Impairment (Stroke, Hemorrhagic) Goal: Optimal Cognitive Function Outcome: Ongoing (Interventions Implemented as Appropriate) Problem: Communication Impairment (Stroke, Hemorrhagic) Goal: Effective Communication Skills Outcome: Ongoing (Interventions Implemented as Appropriate) * Care Management - Melchor Frazier RN - 05/22/2023 7:29 AM EDT OFFICE OF CARE MANAGEMENT PROGRESS NOTE LOS: Hospital Day 34 days Chart reviewed, care reviewed with primary team and at interdisciplinary rounds. Patient continues to meet inpatient level of care related to: SD and remains in the hospital related to provider note of 05/21/2023: 67 y.o. male with unknown pmhx (per chart review, does not appear to have a PCP or [facility], not on AC/AP) who presented from [facility] for evaluation of stroke symptoms, found to have a right cerebellar IPH with ANIL. He is s/p EVD placement on 04/17 and removal on 05/01. Was also found to have Hay B dissection with extension L SCV into bilateral external iliac 24 hour / interval Hx: - Transitioned to HOSE SUSPENDER CUTTER overnight. Now awake, alert, following simple commands. - Last Bowel Movement: 05/20/23 Functional status prior to admission: Independent Home Environment: Others in the home: spouse. Current Living Arrangements: home/apartment/condo. Accessibility Concerns: 0 PATRICIA,. Current Functional Ability: Assistive Person and Equipment DME used at home: (has grab bars available) DME Needed at Discharge: Pending PT / OT Recommendations Last Physical Therapy Recommendation: detention facility, extended care facility / ICF with to be determined Last Occupational Therapy Recommendation: detention facility with to be determined Patient is insured through: Primary Insurance: MEDICARE Payor: MEDICARE / Plan: MEDICARE PART A & B / Product Type: *No Product type* / Secondary Insurance: Thirsty [facility] Prescription Coverage: Yes Preferred Pharmacy: [id number] - [facility] [place] - [address] [facility] [address] Plan for discharge is: Pending Hospital Course and PT/OT Recommendations Agency Referrals & Follow-up Care: pending new PT/OT assessments Transportation: pending needs closer to discharge Barriers to discharge: Discharge planning Psych: Adjustment to diagnosis/illness, Decision-making, Coping/stress, Grief/loss, Cognitive/perceptual Supports: Caregiver support Spouse still hopeful he can make it to [facility] for rehab. Pending updated PT/OT assessments. Pending Guardianship Pending LTC compliance review specialist/CM following with HOSPITAL MEDICINE DIRECTOR and LTC-RS: Advance Directives: none per spouse Guardianship discussion with HOSPITAL MEDICINE DIRECTOR and application process started - 05/05/2023 LTC referral sent to [facility]-LTC: 05/01/2023 Plan going forward: Service Care Management will continue to follow and assist with discharge planning and coordination of care as indicated. Anticipated Date of Discharge: 06/06/2023 Melchor Frazier RN RN/CM - Cellphone: [phone] Pager: [phone] Covering Service RN/CM * Plan of Care - Wilmer Sung RN - 05/22/2023 2:46 AM EDT Images from the original note were not included. Received patient on Bipap for respiratory acidosis correction, which wast improving. Physician consulted, at bedside patients called. Patient made HOSE SUSPENDER CUTTER on 05/20,but revised on 05/21. Currently RA. On Cardene gtt keep BP Systolic>160 Patient was admitted for IPH with ANIL s/p EVD found to have Type B dissection, downgraded to neurology after 30 days in [facility] with worsening OVI. Problem: Restraint, Nonbehavioral (Nonviolent) Goal: Discontinuation Criteria Achieved Outcome: Ongoing (Interventions Implemented as Appropriate) Problem: Adjustment to Illness (Stroke, Hemorrhagic) Goal: Optimal Coping Outcome: Ongoing (Interventions Implemented as Appropriate) Problem: Cerebral Tissue Perfusion (Stroke, Hemorrhagic) Goal: Optimal Cerebral Tissue Perfusion Outcome: Ongoing (Interventions Implemented as Appropriate) Problem: Cognitive Impairment (Stroke, Hemorrhagic) Goal: Optimal Cognitive Function Outcome: Ongoing (Interventions Implemented as Appropriate) Problem: Communication Impairment (Stroke, Hemorrhagic) Goal: Effective Communication Skills Outcome: Ongoing (Interventions Implemented as Appropriate) Problem: Swallowing Impairment (Stroke, Hemorrhagic) Goal: Oral Intake without Aspiration Outcome: Ongoing (Interventions Implemented as Appropriate) Problem: Adult Inpatient Plan of Care Goal: Plan of Care Review Outcome: Ongoing (Interventions Implemented as Appropriate) Goal: Patient-Specific Goal (Individualized) Outcome: Ongoing (Interventions Implemented as Appropriate) Goal: Absence of Hospital-Acquired Illness or Injury Outcome: Ongoing (Interventions Implemented as Appropriate) Goal: Optimal Comfort and Wellbeing Outcome: Ongoing (Interventions Implemented as Appropriate) Goal: Readiness for Transition of Care Outcome: Ongoing (Interventions Implemented as Appropriate) Problem: Attention and Thought Clarity Impairment (Delirium) Goal: Improved Attention and Thought Clarity Outcome: Ongoing (Interventions Implemented as Appropriate) Problem: Sleep Disturbance (Delirium) Goal: Improved Sleep Outcome: Ongoing (Interventions Implemented as Appropriate) Vitals: Patient Vitals for the past 24 hrs: Temp Heart Rate From SP02 Pulse Resp BP SpO2 O2 Device 05/21/23 0605 36.8 ??C (98.2 ??F) -- 87 -- -- -- -- 05/21/23 0700 37.4 ??C (99.3 ??F) -- -- -- -- -- -- 05/21/23 1220 36.4 ??C (97.5 ??F) 87 bpm 85 22 (!) 203/91 95 % RA 05/21/23 1230 -- 83 bpm 83 -- 188/86 95 % -- 05/21/23 1239 -- -- -- -- (!) 200/91 -- -- 05/21/23 1255 -- 83 bpm 83 -- (!) 189/97 95 % -- 05/21/23 1328 -- 82 bpm 82 -- (!) 195/95 95 % -- 05/21/23 1353 -- 77 bpm 76 -- 195/90 93 % -- 05/21/23 1400 36.5 ??C (97.7 ??F) 83 bpm 82 -- (!) 193/96 94 % -- 05/21/23 1506 -- 78 bpm 78 -- (!) 200/100 96 % -- 05/21/23 1605 -- 79 bpm 79 -- (!) 201/115 96 % -- 05/21/23 1636 -- 95 bpm 81 -- (!) 203/92 -- -- 05/21/23 1650 -- 84 bpm 82 -- 187/87 -- -- 05/21/23 1700 -- 78 bpm 77 22 180/84 94 % -- 05/21/23 1715 -- 77 bpm 79 -- 164/74 95 % -- 05/21/23 1730 -- 86 bpm 85 -- 159/83 95 % -- 05/21/23 1745 -- -- 83 -- 152/63 -- -- 05/21/23 1800 -- 86 bpm 85 -- (!) 153/118 93 % -- 05/21/23 1808 -- 87 bpm 78 -- (!) 145/97 94 % -- 05/21/23 1819 -- 88 bpm 91 -- 152/65 94 % -- 05/21/23 1830 -- 91 bpm 90 -- 142/85 94 % -- 05/21/23 1845 -- 86 bpm 84 -- 164/76 95 % -- 05/21/23 1847 -- 82 bpm 86 -- 162/80 95 % -- 05/21/23 1848 -- 82 bpm 81 -- 162/80 -- -- 05/21/23 1900 -- 91 bpm 89 20 157/82 93 % -- 05/21/23 1947 -- -- -- -- 180/87 -- -- 05/21/23 2000 36.7 ??C (98.1 ??F) 89 bpm 86 -- 189/72 94 % -- 05/21/23 2130 -- 84 bpm 87 -- 145/74 96 % -- 05/21/23 2145 -- 70 bpm 69 -- -- 95 % -- 05/21/23 2200 -- 65 bpm 66 -- 155/68 96 % -- 05/21/23 2215 -- 71 bpm 71 -- -- 95 % -- 05/21/23 2230 -- 86 bpm 81 -- -- 95 % -- 05/21/23 2245 -- 81 bpm 80 -- -- 97 % -- 05/21/23 2300 36.6 ??C (97.9 ??F) 84 bpm 81 -- (!) 140/116 96 % -- 05/21/23 2315 -- 81 bpm 82 -- -- 95 % -- 05/21/23 2330 -- 82 bpm 82 -- -- 94 % -- * Plan of Care - Lj Fraga RN - 05/21/2023 6:31 PM EDT OUTCOME EVALUATION NOTE: OUTCOME SUMMARY: Pt began day on comfort measures only, removed from comfort measures by team around 1100 due to improved condition. Pt confused, refuses care and aggressive with family and staff. Restraints ordered,not applied as family refused and assumed responsibility during day. PRN Haldol given without effect, PRN Zyprexa given and effective. Soft restraints applied when family left for day. Pt hypertensive to low 200's/100, did not respond to PRN labetalol and hydralazine. Pt placed on nicardipine drip and BP stabilized to goal of 140-160 systolic. Rebolledo maintained for urinary retention. Patient on puree diet, meds crushed in pudding but pt has been spitting out some PO medications, team aware. Wifehas requested team contact her prior to reinserting NG tube. PLAN MOVING FORWARD: q2hr neuro and vitals Maintain between 140-160 BP Maintain restraints INDIVIDUALIZED FALL PREVENTION INTERVENTIONS: Patient-specific fall risk factors per assessment: [current deficits]: Impulsive, generalized weakness, lines, tubes Assistance [level of assistance required for transfers and ambulation]: 3 assist Supervision [direct monitoring required during toileting and ADLs]: Hands on CPG GOAL OUTCOME EVALUATION: Problem: Adjustment to Illness (Stroke, Hemorrhagic) Goal: Optimal Coping 05/21/20231830 by Lj Fraga RN Outcome: Ongoing (Interventions Implemented as Appropriate) 05/21/20231820 by Lj Fraga RN Outcome: Ongoing (Interventions Implemented as Appropriate) Problem: Bowel Elimination Impaired (Stroke, Hemorrhagic) Goal: Effective Bowel Elimination 05/21/20231830 by Lj Fraga RN Outcome: Ongoing (Interventions Implemented as Appropriate) 05/21/20231820 by Lj Fraga RN Outcome: Ongoing (Interventions Implemented as Appropriate) Problem: Cerebral Tissue Perfusion (Stroke, Hemorrhagic) Goal: Optimal Cerebral Tissue Perfusion 05/21/20231830 by Lj Fraga RN Outcome: Ongoing (Interventions Implemented as Appropriate) 05/21/20231820 by Lj Fraga RN Outcome: Ongoing (Interventions Implemented as Appropriate) Problem: Cognitive Impairment (Stroke, Hemorrhagic) Goal: Optimal Cognitive Function 05/21/20231830 by Lj Fraga RN Outcome: Ongoing (Interventions Implemented as Appropriate) 05/21/20231820 by Lj Fraga RN Outcome: Ongoing (Interventions Implemented as Appropriate) Problem: Communication Impairment (Stroke, Hemorrhagic) Goal: Effective Communication Skills 05/21/20231830 by Lj Fraga RN Outcome: Ongoing (Interventions Implemented as Appropriate) 05/21/20231820 by Lj Fraga RN Outcome: Ongoing (Interventions Implemented as Appropriate) Problem: Functional Ability Impaired (Stroke, Hemorrhagic) Goal: Optimal Functional Ability 05/21/20231830 by Lj Fraga RN Outcome: Ongoing (Interventions Implemented as Appropriate) 05/21/20231820 by Lj Frgaa RN Outcome: Ongoing (Interventions Implemented as Appropriate) Problem: Pain (Stroke, Hemorrhagic) Goal: Acceptable Pain Control 05/21/20231830 by Lj Fraga RN Outcome: Ongoing (Interventions Implemented as Appropriate) 05/21/20231820 by Lj Fraga RN Outcome: Ongoing (Interventions Implemented as Appropriate) Problem: Respiratory Compromise (Stroke, Hemorrhagic) Goal: Effective Oxygenation and Ventilation 05/21/20231830 by Lj Fraga RN Outcome: Ongoing (Interventions Implemented as Appropriate) 05/21/20231820 by Lj Fraga RN Outcome: Ongoing (Interventions Implemented as Appropriate) Problem: Sensorimotor Impairment (Stroke, Hemorrhagic) Goal: Improved Sensorimotor Function 05/21/20231830 by Lj Fraga RN Outcome: Ongoing (Interventions Implemented as Appropriate) 05/21/20231820 by Lj Fraga RN Outcome: Ongoing (Interventions Implemented as Appropriate) Problem: Swallowing Impairment (Stroke, Hemorrhagic) Goal: Oral Intake without Aspiration 05/21/20231830 by Lj Fraga RN Outcome: Ongoing (Interventions Implemented as Appropriate) 05/21/20231820 by Lj Fraga RN Outcome: Ongoing (Interventions Implemented as Appropriate) Problem: Urinary Elimination Impaired (Stroke, Hemorrhagic) Goal: Effective Urinary Elimination 05/21/20231830 by Lj Fraga RN Outcome: Ongoing (Interventions Implemented as Appropriate) 05/21/20231820 by Lj Fraga RN Outcome: Ongoing (Interventions Implemented as Appropriate) Problem: Fall Injury Risk Goal: Absence of Fall and Fall-Related Injury 05/21/20231830 by Lj Fraga RN Outcome: Ongoing (Interventions Implemented as Appropriate) 05/21/20231820 by Lj Fraga RN Outcome: Ongoing (Interventions Implemented as Appropriate) Problem: Adult Inpatient Plan of Care Goal: Plan of Care Review 05/21/20231830 by Lj Fraga RN Outcome: Ongoing (Interventions Implemented as Appropriate) 05/21/20231820 by Lj Fraga RN Outcome: Ongoing (Interventions Implemented as Appropriate) Goal: Patient-Specific Goal (Individualized) 05/21/20231830 by Lj Fraga RN Outcome: Ongoing (Interventions Implemented as Appropriate) 05/21/20231820 by Lj Fraga RN Outcome: Ongoing (Interventions Implemented as Appropriate) Goal: Absence of Hospital-Acquired Illness or Injury 05/21/20231830 by Lj Fraga RN Outcome: Ongoing (Interventions Implemented as Appropriate) 05/21/20231820 by Lj Fraga RN Outcome: Ongoing (Interventions Implemented as Appropriate) Goal: Optimal Comfort and Wellbeing 05/21/20231830 by Lj Fraga RN Outcome: Ongoing (Interventions Implemented as Appropriate) 05/21/20231820 by Lj Fraga RN Outcome: Ongoing (Interventions Implemented as Appropriate) Goal: Readiness for Transition of Care 05/21/20231830 by Lj Fraga RN Outcome: Ongoing (Interventions Implemented as Appropriate) 05/21/20231820 by Lj Fraga RN Outcome: Ongoing (Interventions Implemented as Appropriate) Problem: Adjustment to Illness (Delirium) Goal: Optimal Coping 05/21/20231830 by Lj Fraga RN Outcome: Ongoing (Interventions Implemented as Appropriate) 05/21/20231820 by Lj Fraga RN Outcome: Ongoing (Interventions Implemented as Appropriate) Problem: Altered Behavior (Delirium) Goal: Improved Behavioral Control 05/21/20231830 by Lj Fraga RN Outcome: Ongoing (Interventions Implemented as Appropriate) 05/21/20231820 by Lj Fraga RN Outcome: Ongoing (Interventions Implemented as Appropriate) Problem: Attention and Thought Clarity Impairment (Delirium) Goal: Improved Attention and Thought Clarity 05/21/20231830 by Lj Fraga RN Outcome: Ongoing (Interventions Implemented as Appropriate) 05/21/20231820 by Lj Fraga RN Outcome: Ongoing (Interventions Implemented as Appropriate) Problem: Sleep Disturbance (Delirium) Goal: Improved Sleep 05/21/20231830 by Lj Fraga RN Outcome: Ongoing (Interventions Implemented as Appropriate) 05/21/20231820 by Lj Fraga RN Outcome: Ongoing (Interventions Implemented as Appropriate) Problem: Restraint, Nonbehavioral (Nonviolent) Goal: Discontinuation Criteria Achieved 05/21/20231830 by Lj Fraga RN Outcome: Ongoing (Interventions Implemented as Appropriate) 05/21/20231820 by Lj Fraga RN Outcome: Ongoing (Interventions Implemented as Appropriate) * Plan of Care - Wilmer Sung RN - 05/20/2023 8:45 PM EDT Received patient on Bipap for redpitory acidosis correction, which wast improving. Physician consulted, at bedside patients called. Patient made HOSE SUSPENDER CUTTER. Bipap, and NG Discontinued. Patient was admitted for IPH with ANIL s/p EVD found to have Type B dissection, downgraded to neurology after 30 days in [facility] ICU with worsening OVI. Problem: Restraint, Nonbehavioral (Nonviolent) Goal: Discontinuation Criteria Achieved Outcome: Ongoing (Interventions Implemented as Appropriate) Problem: Adjustment to Illness (Stroke, Hemorrhagic) Goal: Optimal Coping Outcome: Ongoing (Interventions Implemented as Appropriate) Problem: Bowel Elimination Impaired (Stroke, Hemorrhagic) Goal: Effective Bowel Elimination Outcome: Ongoing (Interventions Implemented as Appropriate) Problem: Cerebral Tissue Perfusion (Stroke, Hemorrhagic) Goal: Optimal Cerebral Tissue Perfusion Outcome: Ongoing (Interventions Implemented as Appropriate) Problem: Cognitive Impairment (Stroke, Hemorrhagic) Goal: Optimal Cognitive Function Outcome: Ongoing (Interventions Implemented as Appropriate) Problem: Communication Impairment (Stroke, Hemorrhagic) Goal: Effective Communication Skills Outcome: Ongoing (Interventions Implemented as Appropriate) Vitals: Patient Vitals for the past 24 hrs: Temp Heart Rate From SP02 Pulse Resp BP SpO2 FiO2 (%) O2 Flow Rate (L/min) O2 Device 05/19/23 2255 -- 79 bpm 79 22 -- 96 % -- -- -- 05/19/23 2300 -- 79 bpm 79 25 -- 94 % -- -- -- 05/19/23 2305 -- 81 bpm 81 24 -- 97 % -- -- -- 05/19/23 2310 -- 79 bpm 80 22 -- 96 % -- -- -- 05/19/23 2315 -- 80 bpm 81 22 -- 95 % -- -- -- 05/19/23 2320 -- 81 bpm 81 25 -- 96 % -- -- -- 05/19/23 2325 -- 83 bpm 83 22 -- 95 % -- -- -- 05/19/23 2330 -- 80 bpm 82 21 -- 95 % -- -- -- 05/19/23 2335 -- 86 bpm 85 22 -- 96 % -- -- -- 05/19/23 2340 -- 85 bpm 85 21 -- 95 % -- -- -- 05/19/23 2345 -- 83 bpm 84 28 -- 96 % -- -- -- 05/19/23 2350 -- 90 bpm 85 22 -- 96 % -- -- -- 05/19/23 2355 -- 84 bpm 84 24 -- 97 % -- -- -- 05/20/23 0000 37.1 ??C (98.8 ??F) 85 bpm 86 23 160/82 95 % -- 2 L/min NC 05/20/23 0005 -- 83 bpm 87 15 -- 95 % -- -- -- 05/20/23 0010 -- 86 bpm 86 24 -- 94 % -- -- -- 05/20/23 0015 -- 85 bpm 85 23 -- 94 % -- -- -- 05/20/23 0020 -- 85 bpm 85 21 -- 93 % -- -- -- 05/20/23 0025 -- 83 bpm 83 21 143/67 94 % -- -- -- 05/20/23 0030 -- 83 bpm 84 20 -- 95 % -- -- -- 05/20/23 0035 -- 84 bpm 84 21 -- 95 % -- -- -- 05/20/23 0040 -- 83 bpm 83 20 -- 94 % -- -- -- 05/20/23 0100 -- 81 bpm 81 21 -- 96 % -- -- -- 05/20/23 0200 -- 82 bpm 83 22 133/63 94 % -- 2 L/min NC 05/20/23 0205 -- 82 bpm 82 21 -- 98 % -- -- -- 05/20/23 0210 -- 83 bpm 83 21 -- 95 % -- -- -- 05/20/23 0215 -- 83 bpm 83 17 -- 94 % -- -- -- 05/20/23 0220 -- 83 bpm 83 22 -- 95 % -- -- -- 05/20/23 0225 -- 84 bpm 84 22 -- 94 % -- -- -- 05/20/23 0230 -- 83 bpm 83 21 -- 94 % -- -- -- 05/20/23 0235 -- 83 bpm 83 19 -- 95 % -- -- -- 04/13/24 0240 -- 84 bpm 84 22 -- 95 % -- -- -- 05/20/23244 -- 82 bpm 83 19 -- 96 % -- -- -- 05/20/23249 -- 80 bpm 81 24 -- 96 % -- -- -- 05/20/23254 -- 84 bpm 84 25 -- 95 % -- -- -- 05/20/23299 -- 84 bpm 84 21 -- 95 % -- -- -- 05/20/23304 -- 84 bpm 84 21 -- 95 % -- -- -- 05/20/23309 -- 84 bpm 84 24 -- 95 % -- -- -- 05/20/23314 -- 84 bpm 84 23 -- 96 % -- -- -- 05/20/23319 -- 84 bpm 84 21 -- 95 % -- -- -- 05/20/23324 -- 86 bpm 86 17 -- 94 % -- -- -- 05/20/23 033 -- 84 bpm 84 22 -- 96 % -- -- -- 05/20/23 033 -- 85 bpm 85 21 -- 95 % -- -- -- 05/20/23 0340 -- 86 bpm 86 23 -- 91 % -- -- -- 05/20/23340 37.8 ??C (100 ??F) 85 bpm 85 22 -- 92 % -- -- -- 05/20/23344 -- 88 bpm 87 23 -- 96 % -- -- -- 05/20/23 0350 -- 85 bpm 85 24 -- 93 % -- -- -- 05/20/23 0355 -- 83 bpm 83 21 -- 93 % -- -- -- 05/20/23 0400 -- 82 bpm 82 21 118/60 93 % -- -- -- 05/20/23 040 -- 81 bpm 81 22 -- 93 % -- -- -- 05/20/23 0410 -- 80 bpm 80 22 -- 92 % -- -- -- 05/20/235 -- 79 bpm 80 20 -- 93 % -- -- -- 05/20/23 042 -- 79 bpm 79 21 -- 93 % -- -- -- 05/20/23 0425 -- 80 bpm 80 19 -- 93 % -- -- -- 05/20/23 0430 -- 80 bpm 80 23 -- 93 % -- -- -- 05/20/23 0435 -- 78 bpm 79 20 -- 94 % -- -- -- 05/20/23 0440 -- 79 bpm 79 21 -- 95 % -- -- -- 05/20/23 0445 -- 79 bpm 79 21 -- 94 % -- -- -- 05/20/23 0450 -- 79 bpm 79 24 -- 95 % -- -- -- 05/20/23 0455 -- 79 bpm 79 22 -- 95 % -- -- -- 05/20/23 0500 -- 79 bpm 79 22 -- 96 % -- -- -- 05/20/23 0505 -- 80 bpm 80 22 -- 96 % -- -- -- 05/20/23 0510 -- 78 bpm 78 21 -- 97 % -- -- -- 05/20/23 0515 -- 79 bpm 79 20 -- 96 % -- -- -- 05/20/23 0520 -- 80 bpm 80 23 -- 96 % -- -- -- 05/20/23 0525 -- 80 bpm 80 22 -- 96 % -- -- -- 05/20/23 0530 -- 80 bpm 80 22 -- 96 % -- -- -- 05/20/23 0535 -- 80 bpm 80 19 -- 97 % -- -- -- 05/20/23 0540 37.9 ??C (100.2 ??F) 80 bpm 80 21 131/66 97 % -- 3 L/min NC 05/20/23 0545 -- 81 bpm 81 24 -- 95 % -- -- -- 05/20/23 0550 -- 79 bpm 80 22 -- 96 % -- -- -- 05/20/23 0555 -- 80 bpm 80 20 -- 96 % -- -- -- 05/20/23 0800 37.8 ??C (100 ??F) 77 bpm 78 24 107/70 96 % -- -- -- 05/20/23 1000 37.9 ??C (100.2 ??F) 76 bpm 76 22 106/56 94 % -- 2 L/min NC 05/20/23 1200 -- 78 bpm 79 22 119/55 96 % -- -- -- 05/20/23 1202 -- -- -- 23 -- 91 % 40 % 40 L/min High flow nasal cannula 05/20/23 1400 -- 85 bpm 83 20 (!) 115/100 100 % -- -- -- 05/20/23 1600 37.8 ??C (100 ??F) 80 bpm 80 19 151/70 96 % -- -- -- 05/20/23 1649 -- -- -- 19 -- 98 % -- -- -- 05/20/23 1800 -- 83 bpm 80 22 (!) 146/113 100 % -- -- -- 05/20/23 1933 -- -- -- -- -- -- -- -- Bi-PAP 05/20/231935 -- -- -- -- -- -- -- 2 L/min NC 05/20/231999 36.8 ??C (98.2 ??F) 79 bpm 77 22 (!) 167/103 93 % -- 2 L/min NC * Plan of Care - Lj Fraga RN - 05/20/2023 7:23 PM EDT OUTCOME EVALUATION NOTE: OUTCOME SUMMARY: Pt somnolent in AM, stat CT scan ordered. Pt with new onset tachypnea with desaturation to 89% on 2L NC. VBG drawn, pt acidotic. Bipap, restraints removed/sitter bedside, no change in 1800 VBG. Pt with less than 30mL urine output in AM, creatinine increased over day. BP meds discontinued and modified, IV Lasix given and pt with good response. Per provider, pt moving to comfort measures. PLAN MOVING FORWARD: Comfort care per provider orders [facility] GOAL OUTCOME EVALUATION: Problem: Adjustment to Illness (Stroke, Hemorrhagic) Goal: Optimal Coping Outcome: Ongoing (Interventions Implemented as Appropriate) Problem: Bowel Elimination Impaired (Stroke, Hemorrhagic) Goal: Effective Bowel Elimination Outcome: Ongoing (Interventions Implemented as Appropriate) Problem: Cerebral Tissue Perfusion (Stroke, Hemorrhagic) Goal: Optimal Cerebral Tissue Perfusion Outcome: Ongoing (Interventions Implemented as Appropriate) Problem: Cognitive Impairment (Stroke, Hemorrhagic) Goal: Optimal Cognitive Function Outcome: Ongoing (Interventions Implemented as Appropriate) Problem: Communication Impairment (Stroke, Hemorrhagic) Goal: Effective Communication Skills Outcome: Ongoing (Interventions Implemented as Appropriate) Problem: Functional Ability Impaired (Stroke, Hemorrhagic) Goal: Optimal Functional Ability Outcome: Ongoing (Interventions Implemented as Appropriate) Problem: Pain (Stroke, Hemorrhagic) Goal: Acceptable Pain Control Outcome: Ongoing (Interventions Implemented as Appropriate) Problem: Respiratory Compromise (Stroke, Hemorrhagic) Goal: Effective Oxygenation and Ventilation Outcome: Ongoing (Interventions Implemented as Appropriate) Problem: Sensorimotor Impairment (Stroke, Hemorrhagic) Goal: Improved Sensorimotor Function Outcome: Ongoing (Interventions Implemented as Appropriate) Problem: Swallowing Impairment (Stroke, Hemorrhagic) Goal: Oral Intake without Aspiration Outcome: Ongoing (Interventions Implemented as Appropriate) Problem: Urinary Elimination Impaired (Stroke, Hemorrhagic) Goal: Effective Urinary Elimination Outcome: Ongoing (Interventions Implemented as Appropriate) Problem: Fall Injury Risk Goal: Absence of Fall and Fall-Related Injury Outcome: Ongoing (Interventions Implemented as Appropriate) Problem: Adult Inpatient Plan of Care Goal: Plan of Care Review Outcome: Ongoing (Interventions Implemented as Appropriate) Goal: Patient-Specific Goal (Individualized) Outcome: Ongoing (Interventions Implemented as Appropriate) Goal: Absence of Hospital-Acquired Illness or Injury Outcome: Ongoing (Interventions Implemented as Appropriate) Goal: Optimal Comfort and Wellbeing Outcome: Ongoing (Interventions Implemented as Appropriate) Goal: Readiness for Transition of Care Outcome: Ongoing (Interventions Implemented as Appropriate) Problem: Adjustment to Illness (Delirium) Goal: Optimal Coping Outcome: Ongoing (Interventions Implemented as Appropriate) Problem: Altered Behavior (Delirium) Goal: Improved Behavioral Control Outcome: Ongoing (Interventions Implemented as Appropriate) Problem: Attention and Thought Clarity Impairment (Delirium) Goal: Improved Attention and Thought Clarity Outcome: Ongoing (Interventions Implemented as Appropriate) Problem: Sleep Disturbance (Delirium) Goal: Improved Sleep Outcome: Ongoing (Interventions Implemented as Appropriate) Problem: Restraint, Nonbehavioral (Nonviolent) Goal: Discontinuation Criteria Achieved Outcome: Ongoing (Interventions Implemented as Appropriate) * Consult Note - Sheldon Franco MD - 05/20/2023 1:09 PM EDT Images from the original note were not included. Internal Medicine Initial Consult Note Admit date: Hospital day: Service: Primary Attending Consult Attending 04/18/2023 32 Neurology MD Smith Carson MD Reason for Consult: OVI HPI: Myla 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 Medicine consulted for oliguric OVI. He had a complicated course outside of his primary neurologic problem and intubation (04/16-04/21). These course complications included hypoxic respiratory failure requiring reintubation with oliguric renal failure (04/26-05/04) and Type B dissection (treatment further complicated by prolonged pauses/asystole 05/13) all prior to his downgrade to neurology yesterday (05/18). He was noted to have a type B/descending aortic dissection with renal involvement found on imaging.He was seen by both vascular surgery and cardiology and was medically managed with impulse/blood pressure and rate control. Possibly related to strict blood pressure goals as well as repeat contrast loads his course was further complicated by all oliguric renal injury (04/26-05/04 last month which resolved without requiring renal placement therapy. His creatinine and BUN began to rise again starting 05/13 following asystole in setting of dual rate control (carvedilol/diltiazem) as well as a subsequent contrasted CT scan on 05/15. His initial strict blood pressure/heart rate goals for his dissection were liberalized from 120 systolic to 160 systolic. This was in part due to shared decision-making with family close main goal was to get him out of the ICU. It is not within his goals of care to be reinstated or to undergo renalreplacement therapy. Today, (following his downgrade 05/18), his blood pressures were low on the transferred regimen so his labetalol was stopped and hydralazine dose was decreased. He has made only 60 mL of urine today and received fluid boluses for hyperkalemia. Over this past week his creatinine has climbed from 1.1 to 2.5 with his BUN rising from 25 to 36. Further complicating matters is he now had increasing oxygen requirements from local nasal cannula 3 L to high flow nasal cannula at .4 Fi02. He was reportedly more alert 2 days prior and has gotten more somnolent and obtunded over the past 48 hours. Blood gas demonstrates hypercapneic respiratory failure with pco2 in 60's. Past Medical History/Problem List Patient Active Problem List Diagnosis Code ICH (intracerebral hemorrhage) I61.9 Meds: Scheduled Meds: free water bolus 200 mL Per NG tube TID hydrALAZINE 100 mg Per NG tube Q6H cloNIDine 0.2 mg Per NG tube Q8H sodium chloride 2 g Per NG tube TID QUEtiapine 100 mg Per NG tube Nightly insulin lispro 1-4 Units Subcutaneous Q4H YUSUF tube feeding diet 230 mL Per NG tube 4 Times Daily simethicone 40 mg Per NG tube 4 Times Daily terazosin 1 mg Per NG tube BID traMADoL 50 mg Per NG tube Q8H FLUoxetine 20 mg Per NG tube Daily aspirin 81 mg Per NG tube Daily lisinopriL 40 mg Per NG tube Daily ergocalciferoL (vitamin D2) 50,000 Units Per NG tube Weekly heparin (porcine) 5,000 Units Subcutaneous Q8H YUSUF camphor-methyl salicyl-menthoL Topical (Top) BID Continuous Infusions: sodium chloride 0.9% 75 mL/hr (05/20/23 1006) PRN Meds:.ondansetron, QUEtiapine, carboxymethylcellulose, hydrALAZINE, glucose 40% oral geL ORdextrose OR glucagon, senna-docusate, ipratropium- albuteroL, sodium chloride, oxyCODONE, qdcuhv-cmnmkhiy-cdqdzge DR AND sodium bicarbonate, polyethylene glycoL (MIRALAX) oral powder AND bisacodyL AND bisacodyl EC AND lactulose AND lactulose AND magnesium citrate AND Tap water enema, acetaminophen, potassium chloride ER OR potassium chloride ER, enalaprilat Allergies: No Known Allergies Past Surgical History No past surgical history on file. Family History: No family history on file. Social History: Social History Tobacco Use Smoking status: Unknown Substance Use Topics Alcohol use: Defer Drug use: Defer Social History Social History Narrative to Kyra X 44 years. They have 3 children: all in their 20s. 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 He has a significant alcohol abuse history with daily drinking. Was never one to go to get medical care. Vitals: Last value Range last 24 hrs Temperature Temp: 37.8 ??C (100 ??F) Temp: [36.6 ??C (97.9 ??F)-37.9 ??C (100.2 ??F)] Heart Rate Heart Rate: 78 Heart Rate: [64-87] Blood Pressure BP: 107/70 BP: (104-160)/(53-105) Respiratory Rate Resp: 23 Resp: [13-29] SpO2 SpO2: 91 % SpO2: [91 %-100 %] I/O last 3 completed shifts: In: 2390 [NG/GT:2150] Out: 2810 [Urine:2810] Examination: Gen: NAD, Obtunded, on HFNC CVS: RRR with normal S1/S2, no appreciable m/r/g Pulm: inspiratory crackles on HFNC 0.4 Fio2 Abd: NABS, soft, NT, ND Ext: WWP, 1+ edema, no clubbing, no cyanosis. Chest/Back: no spinal tenderness, no CVAT Skin: Intact with no rashes, petechiae, or ecchymoses Laboratory: Recent Labs 05/20/2334105/18/23 0037 05/16/23 0042 WBC 6.7 7.0 7.6 HGB 9.1* 9.3* 9.4* HCT 29.8* 28.9* 29.7* PLATELET 209 209 223 Recent Labs 05/20/23113505/20/23 0840 05/20/23 0342 05/19/23 0033 NA 145 -- 143 142 K 4.9 6.2* 5.8* 4.5 CL 113* -- 107 103 CO2 27 -- 29 28 BUN 36* -- 34* 33* CREATININE 2.55* -- 1.99* 1.82* Recent Labs 05/20/23 1136 05/20/23 0342 05/19/23 0033 05/18/23 0037 CALCIUM 8.7 9.8 9.4 9.6 MAGNESIUM -- 1.06 1.02 0.73 PHOS -- 5.7* 4.6* 4.4 Recent Labs 05/20/23 0912 05/20/23 0341 05/20/23 0005 05/19/23201205/19/23 1635 05/19/23 1118 POCGLU 114 122 126 124 122 112 Microbiology: Microbiology Results (Last 30 days) Procedure Component Value Units Date/Time MRSA PCR Screen ([facility]/APD/[facility]) [[id number]] Collected: 05/02/23 1224 Lab Status: Final result Specimen: Nasopharyngeal Swab Updated: 05/02/231951 MRSA Result Negative MRSA Interp -- Methicillin-resistant Staphylococcus aureus (MRSA) is NOT DETECTED The MRSA target DNA sequences (mec and SCC) were not detected within the acceptable ranges using the Xpert MRSA NxG on the GeneXpert Dx System ([employer]). This suggests the absence of MRSA in the patient specimen submitted for testing. This test is cleared by the U.S. Food and Drug Administration for clinical use and its performance characteristics have been verified by the [facility] at [facility]. This result does not rule out the presence of any other organisms. Rare false negative results may occur if MRSA is present at low concentrations with much higher concentrations of other organisms including MRSE or S. aureus with an empty SCC cassette. Comment: [VERIFIED DATE]05.02.23 Verified By:Liz Pinto (Electronic Signature) Lower Respiratory Culture Tracheal Aspirate [[id number]] (Abnormal) Collected: 04/30/23 1245 Lab Status: Final result Specimen: Tracheal Aspirate Updated: 05/02/23 0942 Lower Respiratory Culture -- Many mixed bacterial morphotypes suggestive of normal upper respiratory pascual including Rare Gram Negative Rods Gram Stain -- Many Neutrophils seen No squamous epithelial cells seen Many Gram Positive Cocci seen Lower Respiratory Culture Bronchial Alveolar Lavage [[id number]] Collected: 04/20/23 1550 Lab Status: Final result Specimen: Bronchial Alveolar Lavage Updated: 04/22/23 0835 Lower Respiratory Culture Rare mixed bacterial morphotypes suggestive of normal upper respiratory pascual Gram Stain -- Many Neutrophils seen No squamous epithelial cells seen No microorganisms seen. Diagnostic Studies: CT head without acute change this AM CXR with pulmonary edema, low lung volumes CTA 05/15 Unchanged Camanche B aortic dissection left subclavian artery origin through the external iliac arteries. Left renal artery arises from false lumen with moderate narrowing. Assessment: This is a complex 67M admitted initially for IPH s/p EVD course complicated by ammon B dissection now with acute hypercarbic and hypoxic respiratory failure with associated acidosis and acute oliguric renal failure likely due to ATN. I anticipate that the urine studies will demonstrate a level effective circulating volume. This is likely a prerenal kidney injury which has led to ATN with multiple contributing factors. 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 It is possible that the renal artery involvement of the dissection is inhibiting flow to a certainextent. The ongoing relative hypotension and rate control may also have been decreasing renal perfusion although I do not see any significant bradycardia or hypotension today. It was felt that he washypovolemia and was given IV fluid boluses earlier today. No eosinophilia or obvious new culprit medication to suspect AIN. I think his now worsening oxygen requirements and evidence of pulmonary edema on chest x-ray is likely due to the fact that his acute tubular necrosis has resulted oliguria. Th e fact that renal replacement therapy is not in his goals of care is worrying. We will likely be able to control his electrolytes through binders and shifting therapy for several days however of his urine output continues to drop off it will be difficult to control his volume without renal replacement. He has already progressed to high flow nasal cannula requirements and intubation is not within his goals of care. I feel due to the severity of his oliguric renal injury and that the limitations of support we would be able to provide to due to his goals of care, If this continues to worsen then discussing his case with nephrology in the coming days to see if they have any further recommendations to control this renal injury would be helpful. With regards to his blood pressure management for his dissection, I don't think that the blood pressures or heart rates he's been having today have been compromising his renal flow and that he is likely having adequate renal perfusion at this time, we are simply seeing progression of injury while in the critical care unit. Would stop ALAN to allow for more renal perfusion. As for his somnolence, I think that his hypercapneic respiratory failure is likely contributing. His acidosis is primarily respiratory so despite his relative somnolence I think we need to try to seeif we can ventilate him with BiPAP. The hypoxic nature of interrogatory failure is likely due to pulmonary edema in the setting of his Oliguria-I would try to diuresis them however I fear he is not going to respond and therefore primary management of this will be minimizing fluid intake. I would speak with nutrition and see if there is concentrated, low potassium tube feeds. . Recommendations: #Acute renal failure-suspect oliguric phase of acute tubular necrosis caused by asystole subsequentcontrast - no more water boluses/ IV fluids - DC salt tabs - Stop lisinopril - Sevelamer tid - Plan for K binder (lokelma) if hyperkalemia recurs overnight/no response to lasix - BMP q6 - Daily phos #Acute hypoxic and hypercapneic respiratory failure #Acute Respiratory acidosis with inadequate compensatory metabolic alkalosis - BiPAP trial - lasix 120 boluses for goal negative 1 L #Type B Aortic Dissection - Continue with liberalized BP goals of SBP 160 - Stop lisinopril as above Case was discussed with medicine consult attending, Dr. Mtz. X Consult service will continue to follow patient. Recommendations are above, please page if further consultation required. Sheldon Franco MD Internal Medicine, PGY3 [facility] Pager # [phone] Associated attestation - Nir Mtz MD - 05/20/2023 4:35 PM EDT Attending Staff New Consult Documentation We have been asked to see this patient in consultation by Dr. Mckenna from Neurology/Stroke Please see Dr. Franco's note for details of the patient history of presentation and data. I have discussed, reviewed and agree with the documented history with ROS, social and family history, medication list, physical findings, labs/studies, Assessment and Plan of care. I have examined the patientmyself and reviewed all labs and studies personally. Additions to the history, physical, assessment and plan include the following: Issues OVI, suspected oliguric phase of ATN in the setting of recent sinus pauses/low flow state as well as contrast exposure Acute hypoxic respiratory failure Acute respiratory acidosis Type B aortic dissection Recommendations Discontinue lisinopril Add phos binder Monitor K trend, consider potassium binder (Lokelma) if recurs in addition to usual shifting and elimination therapies Would defer further IV hydration for now given evidence of pulmonary edema on CXR, unclear yet if responsive to diuretics, and the fact that both renal replacement therapy and rescue intubation are NOT within his goals of care IV diuresis and monitor response; if responsive then may consider fluids+diuretic flush as part of elimination therapy should hyperkalemia recur Trial of BiPAP if alert enough to tolerate, obtain repeat gas to monitor pCO2 response Nir Mtz MD [facility] 05/20/2023 * Care Management - Melchor Frazier RN - 05/19/2023 12:21 PM EDT RN/CM has received a call from spouse to follow up on discharge planning as spouse will be moving out of the NCCU. Tete Acosta (Spouse) - [phone] (M) Pending Guardianship - started 05/05/2023 Review rehab options as well one of the LTC RS for [facility] will be reviewing with her, once Guardianship is in place, and see if he qualifies for not. She is still hopeful he can get to go to Acute rehab. Reviewed at this time that he has been evaluated for SNF rehab. RN/CM following along and available to assist with discharge planning when more appropriate. Melchor Frazier RN RN/CM - Cellphone: [phone] Pager: [phone] Covering Service RN/CM * Plan of Care - Arina Saenz RN - 05/19/2023 6:00 AM EDT OUTCOME EVALUATION NOTE: OUTCOME SUMMARY: Assumed care of patient at 1900. Patient A&O X1, speech garbled. CAM(+). Tolerating room air. Remains off vasoactive drips. Unable to void, required straight cath X2. PLAN MOVING FORWARD: Q1 VS SBP<160 Q4 bladder scan/prn straight cath INDIVIDUALIZED FALL PREVENTION INTERVENTIONS: Patient-specific fall risk factors per assessment: ICU environment [current deficits] Assistance: 2 assist, Bedrest w/ Q2hr turns Supervision: Hands on Surveillance: ICU monitoring, purposeful hourly rounding, alarms on audible, pt room near nurses station, ambu bag set up, bed alarm on and bed locked in low position, call hurley within reach, clutterfree environment. CPG GOAL OUTCOME EVALUATION: Continue care plan as documented. Problem: Adjustment to Illness (Stroke, Hemorrhagic) Goal: Optimal Coping Outcome: Ongoing (Interventions Implemented as Appropriate) Problem: Bowel Elimination Impaired (Stroke, Hemorrhagic) Goal: Effective Bowel Elimination Outcome: Ongoing (Interventions Implemented as Appropriate) Problem: Cerebral Tissue Perfusion (Stroke, Hemorrhagic) Goal: Optimal Cerebral Tissue Perfusion Outcome: Ongoing (Interventions Implemented as Appropriate) Problem: Cognitive Impairment (Stroke, Hemorrhagic) Goal: Optimal Cognitive Function Outcome: Ongoing (Interventions Implemented as Appropriate) Problem: Communication Impairment (Stroke, Hemorrhagic) Goal: Effective Communication Skills Outcome: Ongoing (Interventions Implemented as Appropriate) Problem: Functional Ability Impaired (Stroke, Hemorrhagic) Goal: Optimal Functional Ability Outcome: Ongoing (Interventions Implemented as Appropriate) Problem: Pain (Stroke, Hemorrhagic) Goal: Acceptable Pain Control Outcome: Ongoing (Interventions Implemented as Appropriate) Problem: Respiratory Compromise (Stroke, Hemorrhagic) Goal: Effective Oxygenation and Ventilation Outcome: Ongoing (Interventions Implemented as Appropriate) Problem: Sensorimotor Impairment (Stroke, Hemorrhagic) Goal: Improved Sensorimotor Function Outcome: Ongoing (Interventions Implemented as Appropriate) Problem: Swallowing Impairment (Stroke, Hemorrhagic) Goal: Oral Intake without Aspiration Outcome: Ongoing (Interventions Implemented as Appropriate) Problem: Urinary Elimination Impaired (Stroke, Hemorrhagic) Goal: Effective Urinary Elimination Outcome: Ongoing (Interventions Implemented as Appropriate) Problem: Fall Injury Risk Goal: Absence of Fall and Fall-Related Injury Outcome: Ongoing (Interventions Implemented as Appropriate) Problem: Adult Inpatient Plan of Care Goal: Plan of Care Review Outcome: Ongoing (Interventions Implemented as Appropriate) Goal: Patient-Specific Goal (Individualized) Outcome: Ongoing (Interventions Implemented as Appropriate) Goal: Absence of Hospital-Acquired Illness or Injury Outcome: Ongoing (Interventions Implemented as Appropriate) Goal: Optimal Comfort and Wellbeing Outcome: Ongoing (Interventions Implemented as Appropriate) Goal: Readiness for Transition of Care Outcome: Ongoing (Interventions Implemented as Appropriate) Problem: Adjustment to Illness (Delirium) Goal: Optimal Coping Outcome: Ongoing (Interventions Implemented as Appropriate) Problem: Altered Behavior (Delirium) Goal: Improved Behavioral Control Outcome: Ongoing (Interventions Implemented as Appropriate) Problem: Attention and Thought Clarity Impairment (Delirium) Goal: Improved Attention and Thought Clarity Outcome: Ongoing (Interventions Implemented as Appropriate) Problem: Sleep Disturbance (Delirium) Goal: Improved Sleep Outcome: Ongoing (Interventions Implemented as Appropriate) Problem: Restraint, Nonbehavioral (Nonviolent) Goal: Discontinuation Criteria Achieved Outcome: Ongoing (Interventions Implemented as Appropriate) * Plan of Care - Neema Noble RN - 05/18/2023 6:50 PM EDT OUTCOME EVALUATION NOTE: OUTCOME SUMMARY: Patient oriented only to self this shift, intermittently willing to participate in exam and follow commands, PERRLA. VSS on RA, NSR w/ RBBB, afebrile. SBP goal maintained w/ cleviprex. Cleviprex weaned to off this shift- SBP maintained without intervention following d/c. Indwelling cath discontinued this shift, see I/O for bladder scans. BM x 1. TF boluses continued via NGT @ 65. Patient tolerating well. TREASURY CONSULTANT at bedside this shift- see note for assessment. Patient lifted OOB with PT this shift. Tolerating chair well for several hours, engaged in conversation with family and primarily appropriate although gentle reminders required intermittently. PLAN MOVING FORWARD: Q1 VS SBP <160 Q4 FS Bolus TF Frequent Reorientation Mobilize at tolerated INDIVIDUALIZED FALL PREVENTION INTERVENTIONS: Patient-specific fall risk factors per assessment: [current deficits]: Continuous ICU Monitoring, lines/drains, generalized weakness, delirium, changes to functional screen Assistance [level of assistance required for transfers and ambulation]: Team Lift Asst Supervision [direct monitoring required during toileting and ADLs]: Hands On Surveillance [continuous indirect monitoring]: Continuous ICU Monitoring, purposeful rounding, roomnear unit station, bed alarm in use, bilateral wrist restraints Problem: Adjustment to Illness (Stroke, Hemorrhagic) Goal: Optimal Coping Outcome: Ongoing (Interventions Implemented as Appropriate) Problem: Bowel Elimination Impaired (Stroke, Hemorrhagic) Goal: Effective Bowel Elimination Outcome: Ongoing (Interventions Implemented as Appropriate) Problem: Cerebral Tissue Perfusion (Stroke, Hemorrhagic) Goal: Optimal Cerebral Tissue Perfusion Outcome: Ongoing (Interventions Implemented as Appropriate) Problem: Cognitive Impairment (Stroke, Hemorrhagic) Goal: Optimal Cognitive Function Outcome: Ongoing (Interventions Implemented as Appropriate) Problem: Communication Impairment (Stroke, Hemorrhagic) Goal: Effective Communication Skills Outcome: Ongoing (Interventions Implemented as Appropriate) Problem: Functional Ability Impaired (Stroke, Hemorrhagic) Goal: Optimal Functional Ability Outcome: Ongoing (Interventions Implemented as Appropriate) Problem: Pain (Stroke, Hemorrhagic) Goal: Acceptable Pain Control Outcome: Ongoing (Interventions Implemented as Appropriate) Problem: Respiratory Compromise (Stroke, Hemorrhagic) Goal: Effective Oxygenation and Ventilation Outcome: Ongoing (Interventions Implemented as Appropriate) Problem: Sensorimotor Impairment (Stroke, Hemorrhagic) Goal: Improved Sensorimotor Function Outcome: Ongoing (Interventions Implemented as Appropriate) Problem: Swallowing Impairment (Stroke, Hemorrhagic) Goal: Oral Intake without Aspiration Outcome: Ongoing (Interventions Implemented as Appropriate) Problem: Urinary Elimination Impaired (Stroke, Hemorrhagic) Goal: Effective Urinary Elimination Outcome: Ongoing (Interventions Implemented as Appropriate) Problem: Fall Injury Risk Goal: Absence of Fall and Fall-Related Injury Outcome: Ongoing (Interventions Implemented as Appropriate) Problem: Adult Inpatient Plan of Care Goal: Plan of Care Review Outcome: Ongoing (Interventions Implemented as Appropriate) Goal: Patient-Specific Goal (Individualized) Outcome: Ongoing (Interventions Implemented as Appropriate) Goal: Absence of Hospital-Acquired Illness or Injury Outcome: Ongoing (Interventions Implemented as Appropriate) Goal: Optimal Comfort and Wellbeing Outcome: Ongoing (Interventions Implemented as Appropriate) Goal: Readiness for Transition of Care Outcome: Ongoing (Interventions Implemented as Appropriate) Problem: Adjustment to Illness (Delirium) Goal: Optimal Coping Outcome: Ongoing (Interventions Implemented as Appropriate) Problem: Altered Behavior (Delirium) Goal: Improved Behavioral Control Outcome: Ongoing (Interventions Implemented as Appropriate) Problem: Attention and Thought Clarity Impairment (Delirium) Goal: Improved Attention and Thought Clarity Outcome: Ongoing (Interventions Implemented as Appropriate) Problem: Sleep Disturbance (Delirium) Goal: Improved Sleep Outcome: Ongoing (Interventions Implemented as Appropriate) Problem: Restraint, Nonbehavioral (Nonviolent) Goal: Discontinuation Criteria Achieved Outcome: Ongoing (Interventions Implemented as Appropriate) * Care Management - Angelia Thomas MSW - 05/18/2023 2:32 PM EDT HOSPITAL MEDICINE DIRECTOR met with pt and pt's Tete. Pt's brother also present in room visiting. Pt more alert today, told this HOSPITAL MEDICINE DIRECTOR that he was feeling good today. HOSPITAL MEDICINE DIRECTOR updated Tete as to new affidavit being sent to tax associate attorney for guardianship petition. Tete hopeful that guardianship will not be necessary as pt is improving. HOSPITAL MEDICINE DIRECTOR to continue to follow. LUCIO Mercado [facility] SW Pager [phone] 05/18/23 2:34 PM * Consult Note - Jazmin Reyes RN - 05/18/2023 10:02 AM EDTSummary: VAS Rounding PICC Assessment Images from the original note were not included. PICC dressing is clean, dry, and intact. Slight bloody drainage noted at insertion site but it is contained within the CHG gel. Plan is for routine dressing change tomorrow. Please see flowsheet for details and photo below for reference. * Care Management - Melchor Frazier RN - 05/18/2023 7:27 AM EDT OFFICE OF CARE MANAGEMENT PROGRESS NOTE LOS: Hospital Day 30 days Chart reviewed, care reviewed with primary team and at interdisciplinary rounds. Patient continues to meet inpatient level of care related to: vasoactive medication and Q 1 hour interventions and remains in the hospital related to provider note of 05/17/2023: 24 Hour Events: Cleviprex 16 NTG 100 removed restraints without staff knowledge, patient swatted at per staff, staff provided appropriate redirection to ensure safety of both patient and ICU Needs: Q1 hour interventions, ICU specific devices / therapies, vasoactive medications Functional status prior to admission: Independent Home Environment: Others in the home: spouse. Current Living Arrangements: home/apartment/condo. Accessibility Concerns: 0 PATRICIA,. Current Functional Ability: Assistive Person and Equipment DME used at home: (has grab bars available) DME Needed at Discharge: Pending PT / OT Recommendations Last Physical Therapy Recommendation: detention facility with to be determined Last Occupational Therapy Recommendation: detention facility with to be determined Patient is insured through: Primary Insurance: MEDICARE Payor: MEDICARE / Plan: MEDICARE PART A & B / Product Type: *No Product type* / Secondary Insurance: [place] [facility] Prescription Coverage: Yes Preferred Pharmacy: [id number] - [place], [place] - [address] [place] [address] [place] [id number] Plan for discharge is: Pending Hospital Course and PT/OT Recommendations Agency Referrals & Follow-up Care: Pending Hospital Course and PT/OT Recommendations Transportation: pending needs closer to discharge Barriers to discharge: Discharge planning, ICU Needs Psych: Adjustment to diagnosis/illness, Decision-making, Coping/stress, Grief/loss, Cognitive/perceptual Supports: Caregiver support RN/CM following with HOSPITAL MEDICINE DIRECTOR and LTC-RS: Advance Directives: none per spouse Guardianship discussion with HOSPITAL MEDICINE DIRECTOR and application process started - 05/05/2023 LTC referral sent to [facility]TC: 05/01/2023 Plan going forward: Service Care Management will continue to follow and assist with discharge planning and coordination of care as indicated. Anticipated Date of Discharge: tbd Melchor Frazier RN RN/CM - Cellphone: [phone] Pager: [phone] Covering Service RN/CM * Plan of Care - Yuli Boyer RN - 05/18/2023 3:04 AM EDT OUTCOME EVALUATION NOTE: OUTCOME SUMMARY: Patient became agitated, restless, and yelling around 2230 on 05/16 (ripped out ng tube). Given 2mg ativan. New ng tube placed and confirmed with x ray. NCCU PA aware and was at bedside. One time doseof 25 mg seroquel given after ng tube placed. Patient in 4 point restraints and mitts. Magnesium sulfate replacement. Patient oriented to self, garbled and incoherent speech, FC x4. Cleviprex infusing. NC placed on 3L around 2am for desaturation to 86. PLAN MOVING FORWARD: Q shift neuro, q1 VS, q4 I&O, systolic <140, FSG q4 INDIVIDUALIZED FALL PREVENTION INTERVENTIONS: Patient-specific fall risk factors per assessment: [current deficits]: IV lines, restraints, NC Assistance [level of assistance required for transfers and ambulation]: dependent, x2 Supervision [direct monitoring required during toileting and ADLs]: hands on Surveillance [continuous indirect monitoring]: ICU monitoring and bed alarm Patient-specific fall prevention interventions for sensory deficits provided, if applicable: [X] N/A CARE PLAN GOAL OUTCOME EVALUATION: Problem: Adjustment to Illness (Stroke, Hemorrhagic) Goal: Optimal Coping 05/18/2023303 by Yuli Boyer RN Outcome: Ongoing (Interventions Implemented as Appropriate) 05/18/2023303 by Yuli Boyer RN Outcome: Ongoing (Interventions Implemented as Appropriate) 05/18/2023302 by Yuli Boyer RN Outcome: Ongoing (Interventions Implemented as Appropriate) Problem: Cerebral Tissue Perfusion (Stroke, Hemorrhagic) Goal: Optimal Cerebral Tissue Perfusion 05/18/2023303 by Yuli Boyer RN Outcome: Ongoing (Interventions Implemented as Appropriate) 05/18/2023303 by Yuli Boyer RN Outcome: Ongoing (Interventions Implemented as Appropriate) 05/18/2023302 by Yuli Boyer RN Outcome: Ongoing (Interventions Implemented as Appropriate) Problem: Cognitive Impairment (Stroke, Hemorrhagic) Goal: Optimal Cognitive Function 05/18/2023303 by Yuli Boyer RN Outcome: Ongoing (Interventions Implemented as Appropriate) 05/18/2023303 by Yuli Boyer RN Outcome: Ongoing (Interventions Implemented as Appropriate) 05/18/2023302 by Yuli Boyer RN Outcome: Ongoing (Interventions Implemented as Appropriate) Problem: Pain (Stroke, Hemorrhagic) Goal: Acceptable Pain Control 05/18/2023303 by Yuli Boyer RN Outcome: Ongoing (Interventions Implemented as Appropriate) 05/18/2023303 by Yuli Boyer RN Outcome: Ongoing (Interventions Implemented as Appropriate) 05/18/2023302 by Zouboukos, Yuli G, RN Outcome: Ongoing (Interventions Implemented as Appropriate) Problem: Respiratory Compromise (Stroke, Hemorrhagic) Goal: Effective Oxygenation and Ventilation 05/18/2023303 by Yuli Boyer RN Outcome: Ongoing (Interventions Implemented as Appropriate) 05/18/2023303 by Yuli Boyer RN Outcome: Ongoing (Interventions Implemented as Appropriate) 05/18/2023 030 by Yuli Boyer, RN Outcome: Ongoing (Interventions Implemented as Appropriate) Problem: Sensorimotor Impairment (Stroke, Hemorrhagic) Goal: Improved Sensorimotor Function 05/18/2023303 by Yuli Boyer, RN Outcome: Ongoing (Interventions Implemented as Appropriate) 05/18/2023303 by Yuli Boyer, RN Outcome: Ongoing (Interventions Implemented as Appropriate) 05/18/2023 030 by Yuli Boyer, RN Outcome: Ongoing (Interventions Implemented as Appropriate) Problem: Urinary Elimination Impaired (Stroke, Hemorrhagic) Goal: Effective Urinary Elimination 05/18/2023303 by Yuli Boyer RN Outcome: Ongoing (Interventions Implemented as Appropriate) 05/18/2023303 by Yuli Boyer, RN Outcome: Ongoing (Interventions Implemented as Appropriate) 05/18/2023 030 by Yuli Boyer, RN Outcome: Ongoing (Interventions Implemented as Appropriate) Problem: Fall Injury Risk Goal: Absence of Fall and Fall-Related Injury 05/18/2023303 by Yuli Boyer RN Outcome: Ongoing (Interventions Implemented as Appropriate) 05/18/2023303 by Yuli Boyer RN Outcome: Ongoing (Interventions Implemented as Appropriate) 05/18/2023 030 by Yuli Boyer RN Outcome: Ongoing (Interventions Implemented as Appropriate) Problem: Adult Inpatient Plan of Care Goal: Plan of Care Review 05/18/2023303 by Yuli Boyer RN Outcome: Ongoing (Interventions Implemented as Appropriate) 05/18/2023303 by Yuli Boyer, RN Outcome: Ongoing (Interventions Implemented as Appropriate) 05/18/2023 030 by Yuli Boyer RN Outcome: Ongoing (Interventions Implemented as Appropriate) Problem: Adult Inpatient Plan of Care Goal: Patient-Specific Goal (Individualized) 05/18/2023303 by Yuli Boyer RN Outcome: Ongoing (Interventions Implemented as Appropriate) 05/18/2023303 by Yuli Boyer RN Outcome: Ongoing (Interventions Implemented as Appropriate) 05/18/2023 030 by Yuli Boyer, RN Outcome: Ongoing (Interventions Implemented as Appropriate) Problem: Adult Inpatient Plan of Care Goal: Optimal Comfort and Wellbeing 05/18/2023303 by Yuli Boyer RN Outcome: Ongoing (Interventions Implemented as Appropriate) 05/18/2023303 by Yuli Boyer RN Outcome: Ongoing (Interventions Implemented as Appropriate) 05/18/2023 030 by Yuli Boyer RN Outcome: Ongoing (Interventions Implemented as Appropriate) Problem: Altered Behavior (Delirium) Goal: Improved Behavioral Control 05/18/2023303 by Yuli Boyer RN Outcome: Ongoing (Interventions Implemented as Appropriate) 05/18/2023303 by Yuli Boyer, CARSON Outcome: Ongoing (Interventions Implemented as Appropriate) 05/18/2023 030 by Yuli Boyer, RN Outcome: Ongoing (Interventions Implemented as Appropriate) Problem: Sleep Disturbance (Delirium) Goal: Improved Sleep 05/18/2023303 by Yuli Boyer RN Outcome: Ongoing (Interventions Implemented as Appropriate) 05/18/2023303 by Yuli Boyer, RN Outcome: Ongoing (Interventions Implemented as Appropriate) 05/18/2023302 by Yuli Boyer, CARSON Outcome: Ongoing (Interventions Implemented as Appropriate) Problem: Restraint, Nonbehavioral (Nonviolent) Goal: Discontinuation Criteria Achieved 05/18/2023303 by Yuli Boyer, RN Outcome: Ongoing (Interventions Implemented as Appropriate) 05/18/2023303 by Yuli Boyer RN Outcome: Ongoing (Interventions Implemented as Appropriate) * Plan of Care - Shani Parker RN - 05/17/2023 6:21 PM EDT Problem: Adjustment to Illness (Stroke, Hemorrhagic) Goal: Optimal Coping Outcome: Ongoing (Interventions Implemented as Appropriate) Problem: Bowel Elimination Impaired (Stroke, Hemorrhagic) Goal: Effective Bowel Elimination Outcome: Ongoing (Interventions Implemented as Appropriate) Problem: Cerebral Tissue Perfusion (Stroke, Hemorrhagic) Goal: Optimal Cerebral Tissue Perfusion Outcome: Ongoing (Interventions Implemented as Appropriate) Problem: Cognitive Impairment (Stroke, Hemorrhagic) Goal: Optimal Cognitive Function Outcome: Ongoing (Interventions Implemented as Appropriate) Problem: Communication Impairment (Stroke, Hemorrhagic) Goal: Effective Communication Skills Outcome: Ongoing (Interventions Implemented as Appropriate) Problem: Functional Ability Impaired (Stroke, Hemorrhagic) Goal: Optimal Functional Ability Outcome: Ongoing (Interventions Implemented as Appropriate) Problem: Pain (Stroke, Hemorrhagic) Goal: Acceptable Pain Control Outcome: Ongoing (Interventions Implemented as Appropriate) Problem: Respiratory Compromise (Stroke, Hemorrhagic) Goal: Effective Oxygenation and Ventilation Outcome: Ongoing (Interventions Implemented as Appropriate) Problem: Sensorimotor Impairment (Stroke, Hemorrhagic) Goal: Improved Sensorimotor Function Outcome: Ongoing (Interventions Implemented as Appropriate) Problem: Swallowing Impairment (Stroke, Hemorrhagic) Goal: Oral Intake without Aspiration Outcome: Ongoing (Interventions Implemented as Appropriate) Problem: Urinary Elimination Impaired (Stroke, Hemorrhagic) Goal: Effective Urinary Elimination Outcome: Ongoing (Interventions Implemented as Appropriate) Problem: Fall Injury Risk Goal: Absence of Fall and Fall-Related Injury Outcome: Ongoing (Interventions Implemented as Appropriate) Problem: Adult Inpatient Plan of Care Goal: Plan of Care Review Outcome: Ongoing (Interventions Implemented as Appropriate) Goal: Patient-Specific Goal (Individualized) Outcome: Ongoing (Interventions Implemented as Appropriate) Goal: Absence of Hospital-Acquired Illness or Injury Outcome: Ongoing (Interventions Implemented as Appropriate) Goal: Optimal Comfort and Wellbeing Outcome: Ongoing (Interventions Implemented as Appropriate) Goal: Readiness for Transition of Care Outcome: Ongoing (Interventions Implemented as Appropriate) Problem: Adjustment to Illness (Delirium) Goal: Optimal Coping Outcome: Ongoing (Interventions Implemented as Appropriate) Problem: Altered Behavior (Delirium) Goal: Improved Behavioral Control Outcome: Ongoing (Interventions Implemented as Appropriate) Problem: Attention and Thought Clarity Impairment (Delirium) Goal: Improved Attention and Thought Clarity Outcome: Ongoing (Interventions Implemented as Appropriate) Problem: Sleep Disturbance (Delirium) Goal: Improved Sleep Outcome: Ongoing (Interventions Implemented as Appropriate) * Care Management - Angelia Thomas MSW - 05/17/2023 3:54 PM EDT This HOSPITAL MEDICINE DIRECTOR checked in with pt and . Pt able to engage minimally with this HOSPITAL MEDICINE DIRECTOR, reports feeling like sh*t. Tete asking about MyDH access; HOSPITAL MEDICINE DIRECTOR sent link to phone via eDH for her. asking about guardianship updates; no updates at this time. HOSPITAL MEDICINE DIRECTOR to continue to follow. LUCIO Mercado [facility]U [facility] SW Pager [phone] Ext [phone] 05/17/23 3:55 PM * Plan of Care - Yuli Boyer RN - 05/17/2023 7:35 AM EDT OUTCOME EVALUATION NOTE: OUTCOME SUMMARY: Patient asleep during q shift neuro, woke up around 4am and progressively getting more agitated, continued nitroglycerin and cleviprex infusions, given PRN vasotec x1, pending CT results from 05/15 PLAN MOVING FORWARD: q1 shift neuro, q1 VS, q4 I&O, syst <140 INDIVIDUALIZED FALL PREVENTION INTERVENTIONS: Patient-specific fall risk factors per assessment: [current deficits]: IV lines, restraints, NC Assistance [level of assistance required for transfers and ambulation]: dependent, x2 Supervision [direct monitoring required during toileting and ADLs]: hands on Surveillance [continuous indirect monitoring]: ICU monitoring and bed alarm Patient-specific fall prevention interventions for sensory deficits provided, if applicable: [X] N/A CARE PLAN GOAL OUTCOME EVALUATION: Problem: Adjustment to Illness (Stroke, Hemorrhagic) Goal: Optimal Coping Outcome: Ongoing (Interventions Implemented as Appropriate) Problem: Bowel Elimination Impaired (Stroke, Hemorrhagic) Goal: Effective Bowel Elimination Outcome: Ongoing (Interventions Implemented as Appropriate) Problem: Cerebral Tissue Perfusion (Stroke, Hemorrhagic) Goal: Optimal Cerebral Tissue Perfusion Outcome: Ongoing (Interventions Implemented as Appropriate) Problem: Cognitive Impairment (Stroke, Hemorrhagic) Goal: Optimal Cognitive Function Outcome: Ongoing (Interventions Implemented as Appropriate) Problem: Pain (Stroke, Hemorrhagic) Goal: Acceptable Pain Control Outcome: Ongoing (Interventions Implemented as Appropriate) Problem: Respiratory Compromise (Stroke, Hemorrhagic) Goal: Effective Oxygenation and Ventilation Outcome: Ongoing (Interventions Implemented as Appropriate) Problem: Sensorimotor Impairment (Stroke, Hemorrhagic) Goal: Improved Sensorimotor Function Outcome: Ongoing (Interventions Implemented as Appropriate) Problem: Urinary Elimination Impaired (Stroke, Hemorrhagic) Goal: Effective Urinary Elimination Outcome: Ongoing (Interventions Implemented as Appropriate) Problem: Fall Injury Risk Goal: Absence of Fall and Fall-Related Injury Outcome: Ongoing (Interventions Implemented as Appropriate) Problem: Adult Inpatient Plan of Care Goal: Plan of Care Review Outcome: Ongoing (Interventions Implemented as Appropriate) Problem: Adult Inpatient Plan of Care Goal: Patient-Specific Goal (Individualized) Outcome: Ongoing (Interventions Implemented as Appropriate) Problem: Adult Inpatient Plan of Care Goal: Optimal Comfort and Wellbeing Outcome: Ongoing (Interventions Implemented as Appropriate) Problem: Adjustment to Illness (Delirium) Goal: Optimal Coping Outcome: Ongoing (Interventions Implemented as Appropriate) Problem: Sleep Disturbance (Delirium) Goal: Improved Sleep Outcome: Ongoing (Interventions Implemented as Appropriate) Problem: Altered Behavior (Delirium) Goal: Improved Behavioral Control Outcome: Ongoing (Interventions Implemented as Appropriate) Problem: Attention and Thought Clarity Impairment (Delirium) Goal: Improved Attention and Thought Clarity Outcome: Ongoing (Interventions Implemented as Appropriate) * Consult Note - Brigitte Irvin RN - 05/16/2023 11:02 AM EDT Images from the original note were not included. Wound Care Nurse Note Situation: Follow-up to see Myla Acosta for re-evaluation of right index finger and 4th fingerHAPIs Background: eD-H notes reviewed for history, admitting diagnosis and active problem list. Per MD note: 67 y.o. without significant PMH transferred for cerebellar [facility]. Right arterial line was placed on 04/21 and removed on 05/02. Pressure injury to the right index finger from the A-line wrist board strap noted on 05/01. Wound Assessment and Care Provided: Patient seen this morning in room 336 in bed, reason for visit explained to patient, permission received to assess skin. Primary RN and TREASURY CONSULTANT at bedside. Anatomical location: Right index finger Dressing removed: Open to air Wound: Dry adherent black eschar Dressing applied: Mepilex border Photos taken: Anatomical location: Right fourth finger Dressing removed: Open to air Wound: Dry reabsorbing blisters Dressing applied: Mepilex foam border Photos taken: Munir Score: 13 Last Pressure Ulcer Prevention assessment: Shift Pressure Injury Prevention Occiput: No Injury Thoracic Spine: No Injury Sacral: No Injury Ischial - left: No Injury Ischial - right: No Injury Heel - left: No Injury Heel - right: No Injury Elbow - left: No Injury Elbow - right: No Injury Device Sites: BP Cuff, ECG Leads, rebolledo, IV sites, NGT, O2 sat monitor, oxygen tubing, SCD's / venodynes Other Sites: IDB Existing Wounds: Pressure Injury 05/02/23 other (see comments) Stage 1 (Active) Dressing Appearance open to air 05/16/23 1100 Pressure Injury Appearance dry;black eschar 05/16/23 1100 Area dry 05/16/23 1100 Dressing foam 05/16/23 1100 Wound Image 05/16/23 1100 Pressure Injury 05/09/23 other (see comments) suspected deep tissue injury (Active) Dressing Appearance dry 05/16/23 1101 Pressure Injury Appearance dry 05/16/23 1101 Area dry 05/16/23 1101 Dressing foam 05/16/23 1101 Wound Image 05/16/23 1101 Nutritional Status Wt Readings from Last 1 Encounters: 05/16/23 114.2 kg (251 lb 12.3 oz) Body mass index is 37.72 kg/m??. Labs Lab Results Component Value Date ALBUMIN 3.1 (L) 04/28/2023 ALBUMIN 3.5 04/23/2023 ALBUMIN 3.9 04/19/2023 HA1C 6.0 (H) 04/19/2023 WBC 7.6 05/16/2023 WBC 7.6 05/15/2023 WBC 9.6 (H) 05/14/2023 HGB 9.4 (L) 05/16/2023 HGB 9.4 (L) 05/15/2023 HGB 9.2 (L) 05/14/2023 HCT 29.7 (L) 05/16/2023 HCT 29.2 (L) 05/15/2023 HCT 28.2 (L) 05/14/2023 PLATELET 223 05/16/2023 PLATELET 206 05/15/2023 PLATELET 191 05/14/2023 INR 1.1 04/23/2023 INR 1.1 04/19/2023 INR 1.1 04/18/2023 PT 12.7 (H) 04/23/2023 PT 12.2 04/19/2023 PT 12.4 04/18/2023 Nutritional Intake Nutrition Diet/Nutrition Received: NPO, tube feeding Diet/Feeding Assistance: total feed Diet/Feeding Tolerance: good Nutrition Risk Screen: tube feeding or parenteral nutrition Nutrition Interventions Fluid/Electrolyte Management: electrolyte-binding therapy initiated, electrolyte supplement adjusted Nutrition Support Management: weight trending reviewed Swallowing Interventions: Dysphagia: monitored for cough during intake, monitored for fatigue Current bed: Progressa Assessment: The right index finger has dry adherent eschar. Stable with no signs of infection. Covered with a Mepilex border, but can leave open to air if it will not stay on. Right fourth finger hasreabsorbing blisters, dry and stable. Covered with Mepilex border but can leave open to air. Wound Care Recommendations: Right Index finger and fourth finger: Mepilex Border dressing or left open to air-nursing to changeevery 3 days and as needed for dressing with 50% or greater strike though drainage. 1. Cleanse wound with dermal wound cleanser and gauze. 2. Apply Mepilex Border dressing Wound care will follow up weekly Please contact Brigitte Irvin RN on secure chat or the wound care team at [phone] or pager [phone] with skin and wound care concerns or questions. * Plan of Care - Yuli Boyer RN - 05/16/2023 6:45 AM EDT OUTCOME EVALUATION NOTE: OUTCOME SUMMARY: Follows commands, confused, less agitated, restarted cleviprex, continued nitroglycerin drip (max),PRN vasotec x2, PRN hydralazine x1, flexiseal removed PLAN MOVING FORWARD: q shift neuro, q1 VS, q4 I&O, syst <140 INDIVIDUALIZED FALL PREVENTION INTERVENTIONS: Patient-specific fall risk factors per assessment: [current deficits]: IV lines, restraints Assistance [level of assistance required for transfers and ambulation]: dependent, x2 Supervision [direct monitoring required during toileting and ADLs]: hands on Surveillance [continuous indirect monitoring]: ICU monitoring and bed alarm Patient-specific fall prevention interventions for sensory deficits provided, if applicable: [X] N/A CARE PLAN GOAL OUTCOME EVALUATION: Problem: Adjustment to Illness (Stroke, Hemorrhagic) Goal: Optimal Coping Outcome: Ongoing (Interventions Implemented as Appropriate) Problem: Bowel Elimination Impaired (Stroke, Hemorrhagic) Goal: Effective Bowel Elimination Outcome: Ongoing (Interventions Implemented as Appropriate) Problem: Cerebral Tissue Perfusion (Stroke, Hemorrhagic) Goal: Optimal Cerebral Tissue Perfusion Outcome: Ongoing (Interventions Implemented as Appropriate) Problem: Functional Ability Impaired (Stroke, Hemorrhagic) Goal: Optimal Functional Ability Outcome: Ongoing (Interventions Implemented as Appropriate) Problem: Pain (Stroke, Hemorrhagic) Goal: Acceptable Pain Control Outcome: Ongoing (Interventions Implemented as Appropriate) Problem: Respiratory Compromise (Stroke, Hemorrhagic) Goal: Effective Oxygenation and Ventilation Outcome: Ongoing (Interventions Implemented as Appropriate) Problem: Urinary Elimination Impaired (Stroke, Hemorrhagic) Goal: Effective Urinary Elimination Outcome: Ongoing (Interventions Implemented as Appropriate) Problem: Fall Injury Risk Goal: Absence of Fall and Fall-Related Injury Outcome: Ongoing (Interventions Implemented as Appropriate) Problem: Adult Inpatient Plan of Care Goal: Plan of Care Review Outcome: Ongoing (Interventions Implemented as Appropriate) Problem: Altered Behavior (Delirium) Goal: Improved Behavioral Control Outcome: Ongoing (Interventions Implemented as Appropriate) Problem: Sleep Disturbance (Delirium) Goal: Improved Sleep Outcome: Ongoing (Interventions Implemented as Appropriate) * Plan of Care - Luca Lee RN - 05/15/2023 5:07 PM EDT OUTCOME EVALUATION NOTE: OUTCOME SUMMARY: -this AM, pts cuff adjusted, SBP in [id number] started after rounds -pt following commands this AM, remained agitated with incomprehensible speech -pt made DNR/DNI, palliative consulted -SBP goal <140 still -only one asystole pause today lasting approx 5 seconds, providers aware PLAN MOVING FORWARD: -Palliative/Neuro CC/Vascular Surg meeting with Tete (spouse) at 1330 on 05/16/23 -Q shift neuros/delirum precautions in place INDIVIDUALIZED FALL PREVENTION INTERVENTIONS: Patient-specific fall risk factors per assessment: [current deficits]: post- cerebellar hemorrhage Assistance [level of assistance required for transfers and ambulation]: x2 assist Supervision [direct monitoring required during toileting and ADLs]: x2 assist Surveillance [continuous indirect monitoring]: ICU monitoring CARE PLAN GOAL OUTCOME EVALUATION: Problem: Adjustment to Illness (Stroke, Hemorrhagic) Goal: Optimal Coping Outcome: Ongoing (Interventions Implemented as Appropriate) Problem: Bowel Elimination Impaired (Stroke, Hemorrhagic) Goal: Effective Bowel Elimination Outcome: Ongoing (Interventions Implemented as Appropriate) Problem: Cerebral Tissue Perfusion (Stroke, Hemorrhagic) Goal: Optimal Cerebral Tissue Perfusion Outcome: Ongoing (Interventions Implemented as Appropriate) Problem: Cognitive Impairment (Stroke, Hemorrhagic) Goal: Optimal Cognitive Function Outcome: Ongoing (Interventions Implemented as Appropriate) Problem: Communication Impairment (Stroke, Hemorrhagic) Goal: Effective Communication Skills Outcome: Ongoing (Interventions Implemented as Appropriate) Problem: Functional Ability Impaired (Stroke, Hemorrhagic) Goal: Optimal Functional Ability Outcome: Ongoing (Interventions Implemented as Appropriate) Problem: Pain (Stroke, Hemorrhagic) Goal: Acceptable Pain Control Outcome: Ongoing (Interventions Implemented as Appropriate) Problem: Respiratory Compromise (Stroke, Hemorrhagic) Goal: Effective Oxygenation and Ventilation Outcome: Ongoing (Interventions Implemented as Appropriate) Problem: Sensorimotor Impairment (Stroke, Hemorrhagic) Goal: Improved Sensorimotor Function Outcome: Ongoing (Interventions Implemented as Appropriate) Problem: Swallowing Impairment (Stroke, Hemorrhagic) Goal: Oral Intake without Aspiration Outcome: Ongoing (Interventions Implemented as Appropriate) Problem: Urinary Elimination Impaired (Stroke, Hemorrhagic) Goal: Effective Urinary Elimination Outcome: Ongoing (Interventions Implemented as Appropriate) Problem: Fall Injury Risk Goal: Absence of Fall and Fall-Related Injury Outcome: Ongoing (Interventions Implemented as Appropriate) Problem: Adult Inpatient Plan of Care Goal: Plan of Care Review Outcome: Ongoing (Interventions Implemented as Appropriate) Goal: Patient-Specific Goal (Individualized) Outcome: Ongoing (Interventions Implemented as Appropriate) Goal: Absence of Hospital-Acquired Illness or Injury Outcome: Ongoing (Interventions Implemented as Appropriate) Goal: Optimal Comfort and Wellbeing Outcome: Ongoing (Interventions Implemented as Appropriate) Goal: Readiness for Transition of Care Outcome: Ongoing (Interventions Implemented as Appropriate) Problem: Adjustment to Illness (Delirium) Goal: Optimal Coping Outcome: Ongoing (Interventions Implemented as Appropriate) Problem: Altered Behavior (Delirium) Goal: Improved Behavioral Control Outcome: Ongoing (Interventions Implemented as Appropriate) Problem: Attention and Thought Clarity Impairment (Delirium) Goal: Improved Attention and Thought Clarity Outcome: Ongoing (Interventions Implemented as Appropriate) Problem: Sleep Disturbance (Delirium) Goal: Improved Sleep Outcome: Ongoing (Interventions Implemented as Appropriate) * Consult Note - Eugenia Andrade APRN - 05/15/2023 1:03 PM EDT Palliative Medicine Consultation NAME: Myla Acosta DATE: 05/15/2023 ATTENDING: Georges Jacob MD PCP: Fransico Remy MD Hospital day: Hospital Day 27 days The Palliative Care Service is asked by Dr. Georges Jacob MD to see this patient for: Decision Making: including discussion and assessment of goals of care, advance planning , etc. History of Present Illness: Myla Acosta is a(n) 67 y.o. male from [place], [place] who never sought much medical care and who presented 27 days ago initially with a right cerebellar IPH. Subsequentimaging studies revealed a right cerebellar IPH with ANIL. He is s/p EVD and a course complicated bya incidental finding of a large type B Aortic dissection, intractable HTN requiring multiple oral and IV medications and agitated delirium. He has an NG in for feeding and meds and pulled this out recently, now in restraints as he has been aggressive as well. We are asked to meet with his as she is expressing concerns that Myla may not want ongoing aggressive care. Background Psychosocial Context: Social History Social History Narrative to Tete X 44 years. They have 3 children: all in their 20s. 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 He has a significant alcohol abuse history with daily drinking. Was never one to go to get medical care. Current Emotional Context & Counseling Provided: Met with Tete and we discussed Myla as a person. Myla did not seek medical care and was a tough matthew. Myla is a strong and a very intelligent man. He did have a significant alcohol abuse history as well. They have 3 adult children and the 2 oldest are local and close with Myla and Tete. Tete worries that she didn't advocate for Myla sooner. We discussed how she made the best decisio ns with the information she had at the time. She feels Myla would not want a prolonged feeding tube or mechanical intubation again. He would not want CPR in the event of an arrest. She wonders abouttransitioning to a more comfort focused approach. Today, I provided emotional and suggested a family meeting tomorrow with the consulting teams if possible (vascular and cards) and the Neuro Critical Care Team to review expectations. Physical symptoms/ROS: Physical symptoms were not the primary focus of today's encounter, patient unable to give ROS Current physical function: 30% Pre-admission physical function, functional changes, and PPS: 100% Medications: reviewed in eDH Scheduled: cloNIDine 0.2 mg Per NG tube Q8H sodium chloride 2 g Per NG tube TID QUEtiapine 100 mg Per NG tube Nightly spironolactone (Aldactone) 50 mg in sterile water 10 mL custom oral liquid 50 mg Per NG tube Daily insulin lispro 1-4 Units Subcutaneous Q4H [facility] tube feeding diet 230 mL Per NG tube 4 Times Daily simethicone 40 mg Per NG tube 4 Times Daily hydrALAZINE 200 mg Per NG tube Q6H terazosin 1 mg Per NG tube BID traMADoL 50 mg Per NG tube Q8H FLUoxetine 20 mg Per NG tube Daily aspirin 81 mg Per NG tube Daily lisinopriL 40 mg Per NG tube Daily ergocalciferoL (vitamin D2) 50,000 Units Per NG tube Weekly heparin (porcine) 5,000 Units Subcutaneous Q8H YUSUF camphor-methyl salicyl-menthoL Topical (Top) BID clevidipine 8 mg/hr (05/15/23 1054) nitroGLYcerin 200 mcg/min (05/15/23 1301) Allergies as of 04/18/2023 (Not on File) PHYSICAL EXAMINATION Last value Range last 24 hrs Temperature Temp: 36.8 ??C (98.2 ??F) Temp: [36.4 ??C (97.6 ??F)-37.7 ??C (99.9 ??F)] Heart Rate Heart Rate: (!) 102 Heart Rate: [77-111] Blood Pressure BP: 139/76 BP: (111-161)/(46-108) Respiratory Rate Resp: 25 Resp: [11-29] SpO2 SpO2: 93 % SpO2: [88 %-97 %] General: Frail, elderly man lying in bed. In NAD Neuro: Confused. Diagnostic Studies: The following studies were reviewed, relevant results noted below: MRI Brain 04/19: IMPRESSION 1. Recent infarct involving the posterior medial LEFT parietal lobe. 2. Unchanged size of RIGHT cerebellar intraparenchymal hemorrhage with unchanged volume of intraventricular blood products. 3. Vasogenic edema tracks along the superior right cerebellar peduncle into the right midbrain. 4. Unchanged ventricular caliber with some hyperintense signal along the ventricular surface suggesting some transependymal CSF flow. 5. No abnormal brain parenchymal or meningeal enhancement to suggest underlying malignancy. 6. Small foci of susceptibility related signal loss separate from the areas of hemorrhage, which could represent sequela of small vessel disease versus cerebral amyloid angiopathy. CT Angiogram Chest from 04/21 IMPRESSION 1. 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 2. No active extravasation, however , there is some apparent high density within a trace left pleural fluid collection possibly hemothorax and raises concern for early aneurysm leak/rupture into the pleural space. 3. Fusiform dilatation of the descending thoracic aorta measuring up to 4.7-4.8 cm. In maximal diameter Palliative Care Assessment: Myla Acosta is a(n) 67 y.o. male from [place], [place] who never sought much medical care and whopresented 27 days ago initially with a right cerebellar IPH. Subsequent imaging studies revealed a right cerebellar IPH with ANIL. He is s/p EVD and a course complicated by a incidental finding of a large type B Aortic dissection, intractable HTN requiring multiple oral and IV medications and agitated delirium. Regarding goals of care, please see full details of our discussion above. Plan will be for family meeting tomorrow for further discussion of goals. Regarding coping, will ask our HOSPITAL MEDICINE DIRECTOR to join the meeting as well. Recommendations: #Goals of care, serious illness conversation -AD, DPOA/Surrogate & Code status in summary table below -Family meeting planned for tomorrow to further outline goals of care. - DNAR and no pre-arrest intubation order in place. Was an advance directive completed during consult?: Not completed and none already present. Was onediscussed? Was not discussed [] Recommend AD completion Surrogate Decision Maker: Surrogate/MDPA Identified and Documented, , Tete by [place] Surrogacy law Current code status: Do NOT Attempt CPR - Inpatient Pre-arrest intubation permitted?: [] Yes; [x] No, DNI Other pre-arrest preferences discussed?: Tube feeding Does patient have a POLST/MOLST: No POLST/COLST on file. If not, was a POLST/MOLST completed: No If neither, POLST/MOLST discussed: No [] Recommend POLST prior to discharge #Serious illness coping support recommendations -Screened for spiritual care needs? No -Primary childcare attendant: Spouse or partner -Interdisciplinary Team members engaged: [x] Palliative HOSPITAL MEDICINE DIRECTOR; [] BIT involved; [] Healing Arts; [] Creative Arts; [] Spiritual Care; [] Volunteers Palliative Care follow-up plan: Medical team Nursing team Psychosocial Support Inpatient Anticipate ongoing engagement for for decision support HOSPITAL MEDICINE DIRECTOR Outpatient Explicitly offered follow-up?: unlikely. Time-based: 60 minutes were spent over the course of the day on this patient encounter including time spent in chart review, assessment of and counseling with the patient, counseling with the patient's childcare attendant(s), coordination with the consulting service, coordination with palliative IDT members and in doc umentation. EUGENIA ANDRADE APRN Palliative care team pager #[phone] * Care Management - Melchor Frazier RN - 05/15/2023 8:13 AM EDT OFFICE OF CARE MANAGEMENT PROGRESS NOTE LOS: Hospital Day 27 days Chart reviewed, care reviewed with primary team and at interdisciplinary rounds. Patient continues to meet inpatient level of care related to: IV medications; Q 1 hour interventions and remains in the hospital related to provider note of 05/14/2023: 67 y.o. male with the following active issues:: 04/18/23: cerebellar hemorrhage and Type B aortic dissection; respiratory failure resulting in intubation and EVD placement 04/19/23; extubation 04/20/23: reintubation 04/22/23: extubation 04/27/23: reintubation 04/30/23: VAP 05/03/23: EVD removed 05/05/23: extubation Pt continues to be followed by Cardiology services: 67 y.o. male who is here for ICH, incidentally found to have type B dissection on head and neck CTA. Cardiology is consulted for impulse control recommendations. 24-hour Events: -BP in the 110s-150s/70s-90s -HR dropped into the 20's intermittently this morning, appears to be sinus bradycardia ICU Needs: Q1 hour interventions, ICU specific devices / therapies, vasoactive medications Functional status prior to admission: Independent Home Environment: Others in the home: spouse. Current Living Arrangements: home/apartment/condo. Accessibility Concerns: 0 PATRICIA,. Current Functional Ability: Assistive Person and Equipment DME used at home: (has grab bars available) DME Needed at Discharge: Pending PT / OT Recommendations Last Physical Therapy Recommendation: detention facility, swing bed rehabilitation facility with to be determined Last Occupational Therapy Recommendation: detention facility, acute rehabilitation facility with to be determined Patient is insured through: Primary Insurance: MEDICARE Payor: MEDICARE / Plan: MEDICARE PART A & B / Product Type: *No Product type* / Secondary Insurance: [employer] [facility] Prescription Coverage: Yes Preferred Pharmacy: [id number] [address] Plan for discharge is: Pending Hospital Course and PT/OT Recommendations Agency Referrals & Follow-up Care: Pending Hospital Course and PT/OT Recommendations Transportation: pending needs closer to discharge Barriers to discharge: Discharge planning, ICU Needs Psych: Adjustment to diagnosis/illness, Decision-making, Coping/stress, Grief/loss, Cognitive/perceptual Supports: Caregiver support RN/CM following with HOSPITAL MEDICINE DIRECTOR and LTC-[facility]: Advance Directives: none per spouse Guardianship discussion with HOSPITAL MEDICINE DIRECTOR and application process started - 05/05/2023 LTC referral sent to [facility]: 05/01/2023 Plan going forward: Service Care Management will continue to follow and assist with discharge planning and coordination of care as indicated. Anticipated Date of Discharge: 06/06/2023 Melchor Frazier RN RN/CM - Cellphone: [phone] Pager: [phone] Covering Service RN/CM * Plan of Care - Yemi Gonzalez MD - 05/15/2023 6:51 AM EDT Images from the original note were not included. Brief Cardiology Note Please see Dr. Crowe's note from 05/14/23. In brief, patient had intermittent sinus pauses and recommended to hold diltiazem and continue coreg 50mg BID. At 18:45 he had the following rhythm and recommended holding coreg. At 2AM he received 50mg coreg. At 5:20 he had the following rhythm with ~11 second pause before recovery. This was in the setting of the patient being laid flat and being in reverse trendelenburg. At this point recommended holding coreg. If these rhythm abnormalities persist can consider hyoscamine. Yemi Gonzalez, PGY-6 Branding Machine Operator [id number] * Plan of Care - Yuli Boyer RN - 05/15/2023 5:56 AM EDT OUTCOME EVALUATION NOTE: OUTCOME SUMMARY: Patient's HR has been fluctuating from SB to NSR to ST (OPERATIONS INTERN aware/notified). Around 5:20am, patient was being cleaned up, laid flat, then put into trendelenburg in order to be pulled up. Patient then went into asystole for a couple of seconds then HR increased without any intervention (strips uploaded in the chart)- OPERATIONS INTERN notified and at bedside, pacing pads on patient. EKG was obtained prior to this. Around 6:30am patient had another couple of seconds of asystole. HR increased again without any intervention. OPERATIONS INTERN notified and cards has been notified (at the bedside). Per cards, less is more and no intervention at this time. Patient continues to be agitated requiring PRN Seroquel. Does not seem to work on patient. Speech is garbled. Nitroglycerin still infusing. PLAN MOVING FORWARD: Neuro checks q shift, VS q1, I&O q 4. Syst <140 INDIVIDUALIZED FALL PREVENTION INTERVENTIONS: Patient-specific fall risk factors per assessment: [current deficits]: IV lines, restraints Assistance [level of assistance required for transfers and ambulation]: dependent; x2 Supervision [direct monitoring required during toileting and ADLs]: hands on Surveillance [continuous indirect monitoring]: ICU monitoring and bed alarm Patient-specific fall prevention interventions for sensory deficits provided, if applicable: [X] N/A CARE PLAN GOAL OUTCOME EVALUATION: Problem: Adjustment to Illness (Stroke, Hemorrhagic) Goal: Optimal Coping Outcome: Ongoing (Interventions Implemented as Appropriate) Problem: Cognitive Impairment (Stroke, Hemorrhagic) Goal: Optimal Cognitive Function Outcome: Ongoing (Interventions Implemented as Appropriate) Problem: Communication Impairment (Stroke, Hemorrhagic) Goal: Effective Communication Skills Outcome: Ongoing (Interventions Implemented as Appropriate) Problem: Functional Ability Impaired (Stroke, Hemorrhagic) Goal: Optimal Functional Ability Outcome: Ongoing (Interventions Implemented as Appropriate) Problem: Sensorimotor Impairment (Stroke, Hemorrhagic) Goal: Improved Sensorimotor Function Outcome: Ongoing (Interventions Implemented as Appropriate) Problem: Swallowing Impairment (Stroke, Hemorrhagic) Goal: Oral Intake without Aspiration Outcome: Ongoing (Interventions Implemented as Appropriate) Problem: Urinary Elimination Impaired (Stroke, Hemorrhagic) Goal: Effective Urinary Elimination Outcome: Ongoing (Interventions Implemented as Appropriate) Problem: Fall Injury Risk Goal: Absence of Fall and Fall-Related Injury Outcome: Ongoing (Interventions Implemented as Appropriate) Problem: Adult Inpatient Plan of Care Goal: Plan of Care Review Outcome: Ongoing (Interventions Implemented as Appropriate) Problem: Altered Behavior (Delirium) Goal: Improved Behavioral Control Outcome: Ongoing (Interventions Implemented as Appropriate) Problem: Attention and Thought Clarity Impairment (Delirium) Goal: Improved Attention and Thought Clarity Outcome: Ongoing (Interventions Implemented as Appropriate) Problem: Sleep Disturbance (Delirium) Goal: Improved Sleep Outcome: Ongoing (Interventions Implemented as Appropriate) * Plan of Care - Maurice Toussaint RN - 05/14/2023 6:53 PM EDT OUTCOME EVALUATION NOTE: OUTCOME SUMMARY: Received pt on RA, VSS ex intermittent SB (low 27s, captured on EKG) team aware, SBP <140 w/ ordered meds, Nitro gtt titrated per orders. Pt oriented to self only. . BG monitored per orders, morning TF bolus given, 1300 TF stopped after ~15 mins d/t lose of access, TF restarted as scheduled @~1800. Pt removed NGT ~1315 inadvertently, team aware, new NGT attempted to place x2, pt agitated swing & spit at Rns & family at bedside, PRNs for agitation given. Pt remains agitated RASS +2 to +3. Pt continues to be agitated, using disgruntel language, swing at RN & family and refusing cares (NGT placement, 1600 POCT BG) while in restraints, Team aware. Versed given. NGT placed confirmed via XR, ok to use from providers. Pt HR >80 intermittently during agitated periods ~[id number] team aware. PLAN MOVING FORWARD: Q1 VS Q shift Neuro INDIVIDUALIZED FALL PREVENTION INTERVENTIONS: Patient-specific fall risk factors per assessment: [current deficits]: IV tubing, SCDs Assistance [level of assistance required for transfers and ambulation]: x2 assist when OOB/repositioning Supervision [direct monitoring required during toileting and ADLs]: Hands on Surveillance [continuous indirect monitoring]: Patricia Monitor, call hurley within reach at all times Patient-specific fall prevention interventions for sensory deficits provided, if applicable: N/A CPG GOAL OUTCOME EVALUATION: * Consult Note - Owen Swenson MD - 05/14/2023 11:04 AM EDT Images from the original note were not included. [facility] [place] [id number] INPATIENT CARDIOLOGY CONSULT FOLLOW-UP NOTE Hospital Day 26 days Reason for Consult: Impulse control ID: Myla 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 male who is here for ICH, incidentally found to have type B dissection on head and neck CTA. Cardiology is consulted for impulse control recommendations. 24-hour Events: -BP in the 110s-150s/70s-90s -HR dropped into the 20's intermittently this morning, appears to be sinus bradycardia Subjective: -Patient not able to provide Out-Patient Medications: No medications prior to admission. In-Patient Medications: sodium chloride 3 g Per NG tube TID QUEtiapine 100 mg Per NG tube Nightly spironolactone (Aldactone) 50 mg in sterile water 10 mL custom oral liquid 50 mg Per NG tube Daily insulin lispro 1-4 Units Subcutaneous Q4H YUSUF tube feeding diet 230 mL Per NG tube 4 Times Daily simethicone 40 mg Per NG tube 4 Times Daily hydrALAZINE 200 mg Per NG tube Q6H terazosin 1 mg Per NG tube BID carvediloL 50 mg Per NG tube BID cloNIDine 0.3 mg Per NG tube Q8H lidocaine 2 patch Transdermal Q24H traMADoL 50 mg Per NG tube Q8H FLUoxetine 20 mg Per NG tube Daily aspirin 81 mg Per NG tube Daily dilTIAZem 120 mg Per NG tube Q6H YUSUF lisinopriL 40 mg Per NG tube Daily ergocalciferoL (vitamin D2) 50,000 Units Per NG tube Weekly heparin (porcine) 5,000 Units Subcutaneous Q8H YUSUF camphor-methyl salicyl-menthoL Topical (Top) BID Review of Systems: 11 point ROS is either negative or per HPI Physical Exam: Last value Range last 8 hrs Temperature Temp: 36.4 ??C (97.5 ??F) Temp: [36.4 ??C (97.5 ??F)] Heart Rate Heart Rate: 51 Heart Rate: [39-87] Blood Pressure BP: 114/85 BP: (113-150)/(65-93) Respiratory Rate Resp: 23 Resp: [12-23] SpO2 SpO2: 96 % SpO2: [90 %-96 %] Intake/Output Summary (Last 24 hours) at 05/14/2023 1104 Last data filed at 05/14/2023 0800 Gross per 24 hour Intake 1400.89 ml Output 3305 ml Net -1904.11 ml Wt & BMI By Encounter Date Flowsheet Row Admission (Current) from 04/18/2023 in Neuro Critical Care Unit Level 3 Wing C at [facility] Weight 116 kg (255 lb 11.7 oz) 1 05/14/2023 0600 Skin: warm and dry. HEENT: benign Neck: Carotid upstrokes and amplitudes normal. No JVD. Chest: Coarse Cor: Normal S1 and S2. No murmurs, gallops, rubs, thrills, lifts, heaves. Abdomen: distended, hypoactive bowel sounds Extremities: 2+ bilateral edema. Warm bilaterally. 2+ pedal pulses on right, trace pedal pulse on left observed--dopplerable per nursing. Neuro: somnolent, not oriented to person, place, or time CTA Chest, abdomen, pelvis 04/22/23: IMPRESSION 1. 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 2. No active extravasation, however , there is some apparent high density within a trace left pleural fluid collection possibly hemothorax and raises concern for early aneurysm leak/rupture into the pleural space. 3. Fusiform dilatation of the descending thoracic aorta measuring up to 4.7-4.8 cm. In maximal diameter IMPRESSION: 1. Type B aortic dissection 2. Hypertension and tachycardia--requiring multiple agents for control 3. Thoracic aortic dilation. Otherwise structurally normal heart. 4. Longstanding hypertension given LVH seen on echo TTE 04/19/2023: Interpretation Summary -There is severe concentric left ventricular hypertrophy. Left ventricular systolic function is normal. The left ventricular ejection fraction is 70% by Hester's biplane. There are no segmental wall motion abnormalities. -The right ventricle is probably normal in size. Right ventricular function is probably normal. -No significant valve disease. -The aortic root is dilated. The diameter at the level of the sinuses of Valsalva is 4.2 cm. The ascending aorta is dilated. The maximum diameter of the proximal ascending aorta is 4.5 cm. -No comparison study is available. Recent Labs 05/14/23 0130 05/13/23 0457 05/12/23 0004 WBC 9.6* 10.5* 6.2 HGB 9.2* 9.6* 9.7* HCT 28.2* 28.6* 29.9* PLATELET 191 211 227 Recent Labs 05/14/23 0130 05/13/23 1252 05/13/23 0457 NA 139 137 137 K 4.5 3.8 4.0 CL 102 99 101 CO2 29 29 26 BUN 31* 28* 28* CREATININE 1.42 1.43 1.42 No results for input(s): AST, ALT, ALKPHOS, BILITOT, BILIDIR in the last 168 hours. Recent Labs 05/14/23 0130 05/13/23 1252 05/13/23 0457 05/12/23 0004 CALCIUM 9.4 9.3 9.5 9.4 MAGNESIUM 0.76 -- 0.82 1.04 PHOS 3.6 -- 3.5 3.5 No results for input(s): INR, PT, PTT in the last 168 hours. No results for input(s): CK, TROPONINT in the last 168 hours. No results found for: PROBNP Assessment/Recommendations: Myla 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 male who is here for ICH, incidentally found to have type B dissection on head and neck CTA. Cardiology is consulted for impulse control recommendations. Goals of SBP <120 and HR <80 as initially put forth by Vascular Surgery proved extremely challenging to meet.The patient has long- standing HTN as evidenced by severe LVH on TTE. We feel as though his dissection is likely chronic in nature given this as well as its incidentally discovered nature. As such, wediscussed this with Vascular Surgery (Dr. Sampson) and have agreed to increase SBP goal to 140 mmHg. Continue IV diuresis as needed for both volume status and BP control. He did have ventricular ectopy including NSVT in the setting of Mg of 0.6. Mg now normalized with improvement of ectopy. This morning he did have sinus bradycardia with rates into the 20's. There did not appear to be any block aside from first degree heart block. Given the bradycardia will hold diltiazem for now. If he remains bradycardic will decrease beta-blockade but will not do so at this time as we do not want rebound tachycardia in the setting of extensive type B dissection but decreasing beta blockade is a reasonablenext step in no improvement after stopping diltiazem. There are no signs of ischemia with a low/flat troponin and nonischemic EKG. Overnight, he has had what appears to be blocked PACs on telemetry. Would continue to follow without change in plan below.Duplex US today showed acute non-occlusive upper extremity DVT (brachial vein) and superficial veinthrombus. While anticoagulation is indicated for the DVT, would hold off for the time being in the setting of intracranial hemorrhage. #Type B aortic dissection #HTN #Thoracic aortic dilation #Blocked PACs -Continue liberalized SBP goal of 140 mmHg -Increase spironolactone to 50 mg daily -Continue terazosin 1 mg BID, wean as able -Continue clonidine 0.3 mg BID, wean as able -Continue Coreg 50 mg BID -Continue hydralazine 200 mg q6h -Continue lisinopril 40 mg daily -Continue IV Lasix as able for diuresis -HOLD diltiazem 120 mg q6h -Give 2 g magnesium Case discussed with Dr. Dennison. We will continue to follow Owen Swenson MD Branding Machine Operator * Plan of Care - Eulalia Blakely RN - 05/13/2023 9:04 PM EDT Summary of hospitalization: Myla 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 male admitted on 04/18/2023 with Patient Active Problem List Diagnosis Date Noted ICH (intracerebral hemorrhage) 04/18/2023 No past medical history on file. No past surgical history on file. Subjective/Objective: 0030, just 30 minutes after pleasantly turning and repositioning and cooperative with medications, pt witness to have peeled all sheets off self, stated he wasn't cold and attempting to grab something above and just out his reach with his R hand. Pt stated he was trying to turn the lights on and called for his eyewear. Eyewear provided and conversation had regarding contents in room and situation at hand. Gently redirected and reaffirmed that the priority was to sleep. CTM delirium/safety. Assessment: see DocFlow for details, otherwise significant highlights include the following: N/pain: Orients to self only, overwhelmed with reorientation to time and situation. SAWYER. Denies pain but restlessness not quelled by scheduled and prn seroquel. APAP/oxy given and pt was noted to rest in long periods ovn. P: LSCDTAL. Weaned from 2L to RA, noted small periods of desats will shallow positional breathing, which would self resolve to mid 90s. Mucosal intact, dry. Pulmonary toileting ongoing. Oral care frequent whilst upright and alert. C: Continued ICU monitoring. SBP goals <140, team continuing to optimize BP regimen. NTG gtt titrated to goal. 1AVB with R BBB, HR mostly <80 GI: Nutren bolus TF, tolerating, no emesis. DHT secured and taped at 65. Pt frequently reminded to leave necessary medical lines alone.Flexiseal output 200 total. : Rebolledo maintained, +UOP, strict I/O's, see DocFlow for details. Goal euvolemia. H: daily labs, WNL Skin/PV: Heels offloaded/sacral mepilex in place. Generalized edema. 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 +rp/pp Endo: FSBS q4h, coverage via standing/SSI, see eMAR. ID: Normothermic. Abx/virals: N/A LD: see Avatar. Act: T&R q2h whilst in bed, cooperative. Social: Spouse Gina calling overnight. Asking questions appropriately and understanding of treatment plan. Plan/Recommendation: BP control Enact delirium protocols. Continued interdisciplinary interventions in alterations in N/C/GI//Sk CVA/Medication education Notify team of acute changes Maintain safety Emotional support Infection prevention Problem: Adjustment to Illness (Stroke, Hemorrhagic) Goal: Optimal Coping 05/13/20232103 by Eulalia Blakely RN Outcome: Ongoing (Interventions Implemented as Appropriate) 05/13/20232103 by Eulalia Blakely RN Outcome: Ongoing (Interventions Implemented as Appropriate) Problem: Bowel Elimination Impaired (Stroke, Hemorrhagic) Goal: Effective Bowel Elimination 05/13/20232103 by Eulalia Blakely RN Outcome: Ongoing (Interventions Implemented as Appropriate) 05/13/20232103 by Eulalia Blakely RN Outcome: Ongoing (Interventions Implemented as Appropriate) Problem: Cerebral Tissue Perfusion (Stroke, Hemorrhagic) Goal: Optimal Cerebral Tissue Perfusion 05/13/20232103 by Eulalia Blakely RN Outcome: Ongoing (Interventions Implemented as Appropriate) 05/13/20232103 by Eulalia Blakely RN Outcome: Ongoing (Interventions Implemented as Appropriate) Problem: Cognitive Impairment (Stroke, Hemorrhagic) Goal: Optimal Cognitive Function 05/13/20232103 by Eulalia Blakely RN Outcome: Ongoing (Interventions Implemented as Appropriate) 05/13/20232103 by Eulalia Blakely RN Outcome: Ongoing (Interventions Implemented as Appropriate) Problem: Communication Impairment (Stroke, Hemorrhagic) Goal: Effective Communication Skills 05/13/20232103 by Eulalia Blakely RN Outcome: Ongoing (Interventions Implemented as Appropriate) 05/13/20232103 by Eulalia Blakely RN Outcome: Ongoing (Interventions Implemented as Appropriate) Problem: Functional Ability Impaired (Stroke, Hemorrhagic) Goal: Optimal Functional Ability 05/13/20232103 by Eulalia Blakely RN Outcome: Ongoing (Interventions Implemented as Appropriate) 05/13/20232103 by Eulalia Blakely RN Outcome: Ongoing (Interventions Implemented as Appropriate) Problem: Pain (Stroke, Hemorrhagic) Goal: Acceptable Pain Control 05/13/20232103 by Eulalia Blakely RN Outcome: Ongoing (Interventions Implemented as Appropriate) 05/13/20232103 by Eulalia Blakely RN Outcome: Ongoing (Interventions Implemented as Appropriate) Problem: Respiratory Compromise (Stroke, Hemorrhagic) Goal: Effective Oxygenation and Ventilation 05/13/20232103 by Eulalia Blakely RN Outcome: Ongoing (Interventions Implemented as Appropriate) 05/13/20232103 by Eulalia Blakely RN Outcome: Ongoing (Interventions Implemented as Appropriate) Problem: Sensorimotor Impairment (Stroke, Hemorrhagic) Goal: Improved Sensorimotor Function 05/13/20232103 by Eulalia Blakely RN Outcome: Ongoing (Interventions Implemented as Appropriate) 05/13/20232103 by Eulalia Blakely RN Outcome: Ongoing (Interventions Implemented as Appropriate) Problem: Swallowing Impairment (Stroke, Hemorrhagic) Goal: Oral Intake without Aspiration 05/13/20232103 by Eulalia Blakely RN Outcome: Ongoing (Interventions Implemented as Appropriate) 05/13/20232103 by Eulalia Blakely RN Outcome: Ongoing (Interventions Implemented as Appropriate) Problem: Urinary Elimination Impaired (Stroke, Hemorrhagic) Goal: Effective Urinary Elimination 05/13/20232103 by Eulalia Blakely RN Outcome: Ongoing (Interventions Implemented as Appropriate) 05/13/20232103 by Eulalia Blakely RN Outcome: Ongoing (Interventions Implemented as Appropriate) Problem: Fall Injury Risk Goal: Absence of Fall and Fall-Related Injury 05/13/20232103 by Eulalia Blakely RN Outcome: Ongoing (Interventions Implemented as Appropriate) 05/13/20232103 by Eulalia Blakely RN Outcome: Ongoing (Interventions Implemented as Appropriate) Problem: Adult Inpatient Plan of Care Goal: Plan of Care Review 05/13/20232103 by Eulalia Blakely RN Outcome: Ongoing (Interventions Implemented as Appropriate) 05/13/20232103 by Eulalia Blakely RN Outcome: Ongoing (Interventions Implemented as Appropriate) Goal: Patient-Specific Goal (Individualized) 05/13/20232103 by Eulalia Blakely RN Outcome: Ongoing (Interventions Implemented as Appropriate) 05/13/20232103 by Eulalia Blakely RN Outcome: Ongoing (Interventions Implemented as Appropriate) Goal: Absence of Hospital-Acquired Illness or Injury 05/13/20232103 by Eulalia Blakely RN Outcome: Ongoing (Interventions Implemented as Appropriate) 05/13/20232103 by Eulalia Blakely RN Outcome: Ongoing (Interventions Implemented as Appropriate) Goal: Optimal Comfort and Wellbeing 05/13/20232103 by Eulalia Blakely RN Outcome: Ongoing (Interventions Implemented as Appropriate) 05/13/20232103 by Eulalia Blakely RN Outcome: Ongoing (Interventions Implemented as Appropriate) Goal: Readiness for Transition of Care 05/13/20232103 by Eulalia Blakely RN Outcome: Ongoing (Interventions Implemented as Appropriate) 05/13/20232103 by Eulalia Blakely RN Outcome: Ongoing (Interventions Implemented as Appropriate) Problem: Adjustment to Illness (Delirium) Goal: Optimal Coping Outcome: Ongoing (Interventions Implemented as Appropriate) Problem: Altered Behavior (Delirium) Goal: Improved Behavioral Control Outcome: Ongoing (Interventions Implemented as Appropriate) Problem: Attention and Thought Clarity Impairment (Delirium) Goal: Improved Attention and Thought Clarity Outcome: Ongoing (Interventions Implemented as Appropriate) Problem: Sleep Disturbance (Delirium) Goal: Improved Sleep Outcome: Ongoing (Interventions Implemented as Appropriate) * Plan of Care - Charito Rodriguez - 05/12/2023 6:46 PM EDT OUTCOME EVALUATION NOTE: OUTCOME SUMMARY: Pt had frequent episodes of blood pressure over current SBP goals. Pt received PRN labetalol and hydralazine. The team made aware and reordered nitro and cleviprex. Pt was cooperative throughout the day. was at beside. Pt started to become agitated around 1730. PLAN MOVING FORWARD: Qshift Neuro Q4H VS Strict I&O's Q2H Q2H turn SBP goal <140 INDIVIDUALIZED FALL PREVENTION INTERVENTIONS: Patient-specific fall risk factors per assessment: [current deficits]: generalized weakness, ICH Assistance [level of assistance required for transfers and ambulation]: dependent, assist x 2 Supervision [direct monitoring required during toileting and ADLs]: dependent, assist x2 Surveillance [continuous indirect monitoring]: ICU monitoring, tele, pulse ox Patient-specific fall prevention interventions for sensory deficits provided, if applicable: [X] Yes CARE PLAN GOAL OUTCOME EVALUATION: Problem: Adjustment to Illness (Stroke, Hemorrhagic) Goal: Optimal Coping Outcome: Ongoing (Interventions Implemented as Appropriate) Problem: Bowel Elimination Impaired (Stroke, Hemorrhagic) Goal: Effective Bowel Elimination Outcome: Ongoing (Interventions Implemented as Appropriate) Problem: Cerebral Tissue Perfusion (Stroke, Hemorrhagic) Goal: Optimal Cerebral Tissue Perfusion Outcome: Ongoing (Interventions Implemented as Appropriate) Problem: Cognitive Impairment (Stroke, Hemorrhagic) Goal: Optimal Cognitive Function Outcome: Ongoing (Interventions Implemented as Appropriate) Problem: Communication Impairment (Stroke, Hemorrhagic) Goal: Effective Communication Skills Outcome: Ongoing (Interventions Implemented as Appropriate) Problem: Functional Ability Impaired (Stroke, Hemorrhagic) Goal: Optimal Functional Ability Outcome: Ongoing (Interventions Implemented as Appropriate) Problem: Pain (Stroke, Hemorrhagic) Goal: Acceptable Pain Control Outcome: Ongoing (Interventions Implemented as Appropriate) Problem: Respiratory Compromise (Stroke, Hemorrhagic) Goal: Effective Oxygenation and Ventilation Outcome: Ongoing (Interventions Implemented as Appropriate) Problem: Sensorimotor Impairment (Stroke, Hemorrhagic) Goal: Improved Sensorimotor Function Outcome: Ongoing (Interventions Implemented as Appropriate) Problem: Swallowing Impairment (Stroke, Hemorrhagic) Goal: Oral Intake without Aspiration Outcome: Ongoing (Interventions Implemented as Appropriate) Problem: Urinary Elimination Impaired (Stroke, Hemorrhagic) Goal: Effective Urinary Elimination Outcome: Ongoing (Interventions Implemented as Appropriate) Problem: Fall Injury Risk Goal: Absence of Fall and Fall-Related Injury Outcome: Ongoing (Interventions Implemented as Appropriate) Problem: Adult Inpatient Plan of Care Goal: Plan of Care Review Outcome: Ongoing (Interventions Implemented as Appropriate) Goal: Patient-Specific Goal (Individualized) Outcome: Ongoing (Interventions Implemented as Appropriate) Goal: Absence of Hospital-Acquired Illness or Injury Outcome: Ongoing (Interventions Implemented as Appropriate) Goal: Optimal Comfort and Wellbeing Outcome: Ongoing (Interventions Implemented as Appropriate) Goal: Readiness for Transition of Care Outcome: Ongoing (Interventions Implemented as Appropriate) * Consult Note - Floyd Renner MD - 05/12/2023 7:05 AM EDT Images from the original note were not included. [facility] [place] [address] [place] [id number] INPATIENT CARDIOLOGY CONSULT FOLLOW-UP NOTE Hospital Day 24 days Reason for Consult: Impulse control ID: Myla 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 male who is here for ICH, incidentally found to have type B dissection on head and neck CTA. Cardiology is consulted for impulse control recommendations. 24-hour Events: -BP in the 110s-150s/70s-90s -HR in the 70s-80s -Tele with rare NSVT -Lasix 120 IV given x 1 -Given one dose of amlodipine 10 mg -Clevidipine gtt weaned off -Nitroglycerin gtt weaned off Subjective: -Patient not able to provide Out-Patient Medications: No medications prior to admission. In-Patient Medications: sodium chloride 2 g Per NG tube TID insulin lispro 1-4 Units Subcutaneous Q4H YUSUF QUEtiapine 50 mg Per NG tube Nightly tube feeding diet 230 mL Per NG tube 4 Times Daily simethicone 40 mg Per NG tube 4 Times Daily hydrALAZINE 200 mg Per NG tube Q6H terazosin 1 mg Per NG tube BID carvediloL 50 mg Per NG tube BID cloNIDine 0.3 mg Per NG tube Q8H lidocaine 2 patch Transdermal Q24H traMADoL 50 mg Per NG tube Q8H FLUoxetine 20 mg Per NG tube Daily aspirin 81 mg Per NG tube Daily dilTIAZem 120 mg Per NG tube Q6H YUSUF lisinopriL 40 mg Per NG tube Daily ergocalciferoL (vitamin D2) 50,000 Units Per NG tube Weekly heparin (porcine) 5,000 Units Subcutaneous Q8H YUSUF camphor-methyl salicyl-menthoL Topical (Top) BID Review of Systems: 11 point ROS is either negative or per HPI Physical Exam: Last value Range last 8 hrs Temperature Temp: 37.2 ??C (98.9 ??F) Temp: [37.2 ??C (98.9 ??F)-37.3 ??C (99.2 ??F)] Heart Rate Heart Rate: 78 Heart Rate: [69-82] Blood Pressure BP: (!) 151/91 BP: (100-151)/(54-102) Respiratory Rate Resp: 20 Resp: [17-27] SpO2 SpO2: 97 % SpO2: [88 %-97 %] Intake/Output Summary (Last 24 hours) at 05/12/2023 0705 Last data filed at 05/12/2023 0603 Gross per 24 hour Intake 3032 ml Output 5305 ml Net -2273 ml Wt & BMI By Encounter Date Flowsheet Row Admission (Current) from 04/18/2023 in Neuro Critical Care Unit Level 3 [place] [facility] at [facility] Weight 116.1 kg (255 lb 15.3 oz) 1 05/11/2023 0600 Skin: warm and dry. HEENT: benign Neck: Carotid upstrokes and amplitudes normal. No JVD. Chest: Coarse Cor: Normal S1 and S2. No murmurs, gallops, rubs, thrills, lifts, heaves. Abdomen: distended, hypoactive bowel sounds Extremities: 2+ bilateral edema. Warm bilaterally. 2+ pedal pulses on right, trace pedal pulse on left observed--dopplerable per nursing. Neuro: somnolent, not oriented to person, place, or time CTA Chest, abdomen, pelvis 04/22/23: IMPRESSION 1. 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 2. No active extravasation, however , there is some apparent high density within a trace left pleural fluid collection possibly hemothorax and raises concern for early aneurysm leak/rupture into the pleural space. 3. Fusiform dilatation of the descending thoracic aorta measuring up to 4.7-4.8 cm. In maximal diameter IMPRESSION: 1. Type B aortic dissection 2. Hypertension and tachycardia--requiring multiple agents for control 3. Thoracic aortic dilation. Otherwise structurally normal heart. 4. Longstanding hypertension given LVH seen on echo TTE 04/19/2023: Interpretation Summary -There is severe concentric left ventricular hypertrophy. Left ventricular systolic function is normal. The left ventricular ejection fraction is 70% by Hester's biplane. There are no segmental wall motion abnormalities. -The right ventricle is probably normal in size. Right ventricular function is probably normal. -No significant valve disease. -The aortic root is dilated. The diameter at the level of the sinuses of Valsalva is 4.2 cm. The ascending aorta is dilated. The maximum diameter of the proximal ascending aorta is 4.5 cm. -No comparison study is available. Recent Labs 05/12/23 0004 05/11/23 0153 05/10/23 0250 WBC 6.2 5.6 6.1 HGB 9.7* 10.1* 10.4* HCT 29.9* 28.7* 27.7* PLATELET 227 209 225 Recent Labs 05/12/23 0004 05/11/23 1749 05/11/23 1043 NA 140 139 126* K 4.2 4.0 4.9 CL 104 103 94* CO2 27 28 24 BUN 22* 21* 18 CREATININE 1.48 1.46 1.50 No results for input(s): AST, ALT, ALKPHOS, BILITOT, BILIDIR in the last 168 hours. Recent Labs 05/12/23305/11/23 17405/11/23 1043 05/11/23 0153 05/10/23 0810 05/10/23 0250 CALCIUM 9.4 9.7 9.0 9.2 < > 9.2 MAGNESIUM 1.04 0.83 -- 0.64* -- 0.75 PHOS 3.5 -- -- 3.9 -- 4.0 < > = values in this interval not displayed. No results for input(s): INR, PT, PTT in the last 168 hours. No results for input(s): CK, TROPONINT in the last 168 hours. No results found for: PROBNP Assessment/Recommendations: Myla 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 male who is here for ICH, incidentally found to have type B dissection on head and neck CTA. Cardiology is consulted for impulse control recommendations. Goals of SBP <120 and HR <80 as initially put forth by Vascular Surgery proved extremely challenging to meet.The patient has long- standing HTN as evidenced by severe LVH on TTE. We feel as though his dissection is likely chronic in nature given this as well as its incidentally discovered nature. As such, wediscussed this with Vascular Surgery (Dr. Sampson) and have agreed to increase SBP goal to 140 mmHg.Would preferentially wean clevidipine gtt first as he is on dual CCB, followed by nitroglycerin gttnext. Continue IV diuresis as needed for both volume status and BP control. He did have ventricularectopy including NSVT in the setting of Mg of 0.6. Mg now normalized with improvement of ectopy. There are no signs of ischemia with a low/flat troponin and nonischemic EKG. Overnight, he has had what appears to be blocked PACs on telemetry. Would continue to follow without change in plan below. Duplex US today showed acute non-occlusive upper extremity DVT (brachial vein) and superficial vein thrombus. While anticoagulation is indicated for the DVT, would hold off for the time being in the setting of intracranial hemorrhage. #Type B aortic dissection #HTN #Thoracic aortic dilation #Blocked PACs -Continue liberalized SBP goal of 140 mmHg -Increase spironolactone to 50 mg daily -Continue terazosin 1 mg BID, wean as able -Continue clonidine 0.3 mg BID, wean as able -Continue Coreg 50 mg BID -Continue hydralazine 200 mg q6h -Continue lisinopril 40 mg daily -Continue IV Lasix as able for diuresis -Continue diltiazem 120 mg q6h Case discussed with Shawn Joshi MD. We will continue to follow. Floyd Renner MD Branding Machine Operator PGY4 * Consult Note - Floyd Renner MD - 05/11/2023 7:14 AM EDT Images from the original note were not included. [facility] [address] [place], [place] [id number] INPATIENT CARDIOLOGY CONSULT FOLLOW-UP NOTE Hospital Day 23 days Reason for Consult: Impulse control ID: Myla 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 male who is here for ICH, incidentally found to have type B dissection on head and neck CTA. Cardiology is consulted for impulse control recommendations. 24-hour Events: -SBP goal decreased to 140 mmHg -BP in the 80s-140s/50s-80s -HR in the 70s-80s -Anti-hypertensive regimen: Coreg 50 mg BID Clonidine 0.3 mg q8h Diltiazem 120 mg q6h Hydralazine 200 mg q6h Lisinopril 40 mg daily Spironolactone 25 mg daily Terazosin 1 mg BID Lasix 120 mg IV x 1 Clevidipine gtt, being weaned Nitroglycerin gtt, 200 Labetalol push x 7 Subjective: -Altered, cannot provide Out-Patient Medications: No medications prior to admission. In-Patient Medications: sodium chloride 2 g Per NG tube TID magnesium sulfate 2 g Intravenous Q1H tube feeding diet 230 mL Per NG tube 4 Times Daily spironolactone 25 mg Per NG tube Daily QUEtiapine 50 mg Per NG tube Q8H simethicone 40 mg Per NG tube 4 Times Daily hydrALAZINE 200 mg Per NG tube Q6H terazosin 1 mg Per NG tube BID carvediloL 50 mg Per NG tube BID cloNIDine 0.3 mg Per NG tube Q8H lidocaine 2 patch Transdermal Q24H traMADoL 50 mg Per NG tube Q8H FLUoxetine 20 mg Per NG tube Daily aspirin 81 mg Per NG tube Daily dilTIAZem 120 mg Per NG tube Q6H YUSUF lisinopriL 40 mg Per NG tube Daily ergocalciferoL (vitamin D2) 50,000 Units Per NG tube Weekly heparin (porcine) 5,000 Units Subcutaneous Q8H [facility] camphor-methyl salicyl-menthoL Topical (Top) BID clevidipine Stopped (05/11/23 033) nitroGLYcerin 200 mcg/min (05/11/23 05) Review of Systems: 11 point ROS is either negative or per HPI Physical Exam: Last value Range last 8 hrs Temperature Temp: 37.2 ??C (99 ??F) Temp: [36.9 ??C (98.4 ??F)-37.2 ??C (99 ??F)] Heart Rate Heart Rate: 69 Heart Rate: [69-87] Blood Pressure BP: 143/65 BP: (88-172)/(57-112) Respiratory Rate Resp: 22 Resp: [14-30] SpO2 SpO2: 96 % SpO2: [92 %-99 %] Intake/Output Summary (Last 24 hours) at 05/11/2023 0714 Last data filed at 05/11/2023 0600 Gross per 24 hour Intake 4724.94 ml Output 6215 ml Net -1490.06 ml Wt & BMI By Encounter Date Flowsheet Row Admission (Current) from 04/18/2023 in Neuro Critical Care Unit Level 3 [facility] C at [facility] Weight 116.1 kg (255 lb 15.3 oz) 1 05/11/2023 0600 Skin: warm and dry. HEENT: benign Neck: Carotid upstrokes and amplitudes normal. No JVD. Chest: Coarse Cor: Normal S1 and S2. No murmurs, gallops, rubs, thrills, lifts, heaves. Abdomen: distended, hypoactive bowel sounds Extremities: 2+ bilateral edema. Warm bilaterally. 2+ pedal pulses on right, trace pedal pulse on left observed--dopplerable per nursing. Neuro: somnolent, not oriented to person, place, or time CTA Chest, abdomen, pelvis 04/22/23: IMPRESSION 1. 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 2. No active extravasation, however , there is some apparent high density within a trace left pleural fluid collection possibly hemothorax and raises concern for early aneurysm leak/rupture into the pleural space. 3. Fusiform dilatation of the descending thoracic aorta measuring up to 4.7-4.8 cm. In maximal diameter IMPRESSION: 1. Type B aortic dissection 2. Hypertension and tachycardia--requiring multiple agents for control 3. Thoracic aortic dilation. Otherwise structurally normal heart. 4. Longstanding hypertension given LVH seen on echo TTE 04/19/2023: Interpretation Summary -There is severe concentric left ventricular hypertrophy. Left ventricular systolic function is normal. The left ventricular ejection fraction is 70% by Hseter's biplane. There are no segmental wall motion abnormalities. -The right ventricle is probably normal in size. Right ventricular function is probably normal. -No significant valve disease. -The aortic root is dilated. The diameter at the level of the sinuses of Valsalva is 4.2 cm. The ascending aorta is dilated. The maximum diameter of the proximal ascending aorta is 4.5 cm. -No comparison study is available. Recent Labs 05/11/2315205/10/23 02505/09/23 0102 WBC 5.6 6.1 6.0 HGB 10.1* 10.4* 10.1* HCT 28.7* 27.7* 28.5* PLATELET 209 225 258 Recent Labs 05/11/2315205/10/23 1950 05/10/23 11205/10/23 0810 NA 133* -- 135 132* K 3.9 4.1 4.4 3.9 CL 98 -- 101 100 CO2 24 -- 24 BUN 17 -- 17 17 CREATININE 1.47 -- 1.88* 1.83* No results for input(s): AST, ALT, ALKPHOS, BILITOT, BILIDIR in the last 168 hours. Recent Labs 05/11/2315205/10/23111905/10/23 0810 05/10/23 02505/09/23 0102 CALCIUM 9.2 10.0 9.6 9.2 9.2 MAGNESIUM 0.64* -- -- 0.75 0.87 PHOS 3.9 -- -- 4.0 3.2 No results for input(s): INR, PT, PTT in the last 168 hours. No results for input(s): CK, TROPONINT in the last 168 hours. No results found for: PROBNP Assessment/Recommendations: Myla 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 male who is here for ICH, incidentally found to have type B dissection on head and neck CTA. Cardiology is consulted for impulse control recommendations. Goals of SBP <120 and HR <80 as initially put forth by Vascular Surgery proved extremely challenging to meet.The patient has long- standing HTN as evidenced by severe LVH on TTE. We feel as though his dissection is likely chronic in nature given this as well as its incidentally discovered nature. As such, wediscussed this with Vascular Surgery (Dr. Sampson) and have agreed to increase SBP goal to 140 mmHg.Would preferentially wean clevidipine gtt first as he is on dual CCB, followed by nitroglycerin gttnext. Continue IV diuresis as needed for both volume status and BP control. #Type B aortic dissection #HTN #Thoracic aortic dilation -Continue liberalized SBP goal of 140 mmHg -Wean clonidine gtt -Wean nitroglycerin gtt -Wean terazosin 1 mg BID -Wean clonidine 0.3 mg BID -Continue Coreg 50 mg BID -Continue lisinopril 40 mg daily -Continue spironolactone 25 mg daily -Continue IV Lasix as able for diuresis -Continue diltiazem 120 mg q6h Case discussed with Shawn Joshi MD. We will continue to follow. Floyd Renner MD Branding Machine Operator PGY4 * Care Management - Melchor Frazier RN - 05/11/2023 6:39 AM EDT OFFICE OF CARE MANAGEMENT PROGRESS NOTE LOS: Hospital Day 23 days Chart reviewed, care reviewed with primary team and at interdisciplinary rounds. Patient continues to meet inpatient level of care related to: sedated, vasoactive medication, and Q 1 hour interventions and remains in the hospital related to provider notes of 05/11/2023: 67 y.o. without significant PMH transferred for R cerebellar IPH with ANIL. 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 Vascular surgery was consulted and patient remained under strict BP and HR paraemters (SBP <120, HR <60) -Patient was started on aspirin -Due to difficulty controlling BP nephrology was consulted and patient was started on labetalol, hydralazine, clonidine, lisinopril diltiazem, terazosin, and still required clevidipine gtt and nitro.Urine metanephrines sent abnd pending -Patient had been extubated on 04/18 but required reintubation after a hypoxic event and AMS. He wasextubated on 05/04 to 4L NC and remained on CPAP 67 y.o. male who is here for ICH, incidentally found to have type B dissection on head and neck CTA. Cardiology is consulted for impulse control recommendations. Followed by Neurology and Cardiology ICU Needs: Q1 hour interventions, ICU specific devices / therapies, vasoactive medications Functional status prior to admission: Independent Home Environment: Others in the home: spouse. Current Living Arrangements: home/apartment/condo. Accessibility Concerns: 0 PATRICIA,. Current Functional Ability: Assistive Person and Equipment DME used at home: (has grab bars available) DME Needed at Discharge: Pending PT / OT Recommendations Last Physical Therapy Recommendation: detention facility, swing bed rehabilitation facility with to be determined Last Occupational Therapy Recommendation: detention facility, acute rehabilitation facility with to be determined Patient is insured through: Primary Insurance: MEDICARE Payor: MEDICARE / Plan: MEDICARE PART A & B / Product Type: *No Product type* / Secondary Insurance: [employer] [place] Prescription Coverage: Yes Preferred Pharmacy: [id number] - [place], [place] - [address] [facility] [address] [place] [id number] Plan for discharge is: Pending Hospital Course and PT/OT Recommendations Agency Referrals & Follow-up Care: Pending Guardianship and review for LTC ZACH Transportation: pending needs closer to discharge Barriers to discharge: Discharge planning, ICU Needs Psych: Adjustment to diagnosis/illness, Decision-making, Coping/stress, Grief/loss, Cognitive/perceptual Supports: Caregiver support Cerebellar hemorrhage Aortic dissection Respiratory failure RN/CM following with HOSPITAL MEDICINE DIRECTOR and LTC-RS: Advance Directives: none per spouse Guardianship discussion with HOSPITAL MEDICINE DIRECTOR and application process started - 05/05/2023 LTC referral sent to [facility]-LTC: 05/01/2023 Plan going forward: Service Care Management will continue to follow and assist with discharge planning and coordination of care as indicated. Anticipated Date of Discharge: 06/06/2023 Melchor Frazier RN RN/CM - Cellphone: [phone] Pager: [phone] Covering Service RN/CM * Plan of Care - Sanjay Arvizu RN - 05/11/2023 6:38 AM EDT OUTCOME EVALUATION NOTE: OUTCOME SUMMARY: Pt confused and appears delirious during shift, reaching for sheryl and speaking nonsense, but appropriate behavior during shift. Pt given PRN haldol and seroquel x1 during shift. Pt on 3L NC during shift, tolerating. Pt had one episode of VT unsustained and self-resolved during shift, team aware, elec trolytes replaced. Otherwise NSR. Pt given labetalol multiple times during shift, and titrated off of cleviprex gtt. Nitro gtt remains. Pt has rebolledo in place with AUOP, and flexiseal in place. Catheter care provided. called, given updates. PLAN MOVING FORWARD: Q-shift neuro SBP <140 q2 VS q2 I+Os INDIVIDUALIZED FALL PREVENTION INTERVENTIONS: Patient-specific fall risk factors per assessment: [current deficits]: icu environment, AMS, generalized weakness, lines/tubing Assistance [level of assistance required for transfers and ambulation]: 2-3x assist Supervision [direct monitoring required during toileting and ADLs]: hands-on Surveillance [continuous indirect monitoring]: icu monitoring, purposeful hourly rounding CARE PLAN GOAL OUTCOME EVALUATION: Problem: Adjustment to Illness (Stroke, Hemorrhagic) Goal: Optimal Coping Outcome: Ongoing (Interventions Implemented as Appropriate) Problem: Bowel Elimination Impaired (Stroke, Hemorrhagic) Goal: Effective Bowel Elimination Outcome: Ongoing (Interventions Implemented as Appropriate) Problem: Cerebral Tissue Perfusion (Stroke, Hemorrhagic) Goal: Optimal Cerebral Tissue Perfusion Outcome: Ongoing (Interventions Implemented as Appropriate) Problem: Cognitive Impairment (Stroke, Hemorrhagic) Goal: Optimal Cognitive Function Outcome: Ongoing (Interventions Implemented as Appropriate) Problem: Communication Impairment (Stroke, Hemorrhagic) Goal: Effective Communication Skills Outcome: Ongoing (Interventions Implemented as Appropriate) Problem: Functional Ability Impaired (Stroke, Hemorrhagic) Goal: Optimal Functional Ability Outcome: Ongoing (Interventions Implemented as Appropriate) Problem: Pain (Stroke, Hemorrhagic) Goal: Acceptable Pain Control Outcome: Ongoing (Interventions Implemented as Appropriate) Problem: Respiratory Compromise (Stroke, Hemorrhagic) Goal: Effective Oxygenation and Ventilation Outcome: Ongoing (Interventions Implemented as Appropriate) Problem: Sensorimotor Impairment (Stroke, Hemorrhagic) Goal: Improved Sensorimotor Function Outcome: Ongoing (Interventions Implemented as Appropriate) Problem: Swallowing Impairment (Stroke, Hemorrhagic) Goal: Oral Intake without Aspiration Outcome: Ongoing (Interventions Implemented as Appropriate) Problem: Urinary Elimination Impaired (Stroke, Hemorrhagic) Goal: Effective Urinary Elimination Outcome: Ongoing (Interventions Implemented as Appropriate) Problem: Fall Injury Risk Goal: Absence of Fall and Fall-Related Injury Outcome: Ongoing (Interventions Implemented as Appropriate) Problem: Adult Inpatient Plan of Care Goal: Plan of Care Review Outcome: Ongoing (Interventions Implemented as Appropriate) Goal: Patient-Specific Goal (Individualized) Outcome: Ongoing (Interventions Implemented as Appropriate) Goal: Absence of Hospital-Acquired Illness or Injury Outcome: Ongoing (Interventions Implemented as Appropriate) Goal: Optimal Comfort and Wellbeing Outcome: Ongoing (Interventions Implemented as Appropriate) Goal: Readiness for Transition of Care Outcome: Ongoing (Interventions Implemented as Appropriate) * Plan of Care - Anoop Arias RN - 05/10/2023 6:44 PM EDT OUTCOME EVALUATION NOTE: OUTCOME SUMMARY: Pt alert to self and place on this shift; agitated and restless throughout; followed commands on all extremities; denies pain. On 3L NC. SBP goal changed to <140; managed with cleviprex/Nitro gtts; PRN lebatol and vasotec w/scheduled HTN meds; SBP goal met intermittently. Rebolledo in place, adequate draining; One time lasix given with large diuretic effect. Multiple loose BM; flexiseal placed per order. Up to chair w/lift. PLAN MOVING FORWARD: Qshift neuro SBP <140 HR <80 q1 VS CPG GOAL OUTCOME EVALUATION: Problem: Adjustment to Illness (Stroke, Hemorrhagic) Goal: Optimal Coping Outcome: Ongoing (Interventions Implemented as Appropriate) Problem: Bowel Elimination Impaired (Stroke, Hemorrhagic) Goal: Effective Bowel Elimination Outcome: Ongoing (Interventions Implemented as Appropriate) Problem: Cerebral Tissue Perfusion (Stroke, Hemorrhagic) Goal: Optimal Cerebral Tissue Perfusion Outcome: Ongoing (Interventions Implemented as Appropriate) Problem: Cognitive Impairment (Stroke, Hemorrhagic) Goal: Optimal Cognitive Function Outcome: Ongoing (Interventions Implemented as Appropriate) Problem: Communication Impairment (Stroke, Hemorrhagic) Goal: Effective Communication Skills Outcome: Ongoing (Interventions Implemented as Appropriate) Problem: Functional Ability Impaired (Stroke, Hemorrhagic) Goal: Optimal Functional Ability Outcome: Ongoing (Interventions Implemented as Appropriate) Problem: Pain (Stroke, Hemorrhagic) Goal: Acceptable Pain Control Outcome: Ongoing (Interventions Implemented as Appropriate) Problem: Respiratory Compromise (Stroke, Hemorrhagic) Goal: Effective Oxygenation and Ventilation Outcome: Ongoing (Interventions Implemented as Appropriate) Problem: Sensorimotor Impairment (Stroke, Hemorrhagic) Goal: Improved Sensorimotor Function Outcome: Ongoing (Interventions Implemented as Appropriate) Problem: Swallowing Impairment (Stroke, Hemorrhagic) Goal: Oral Intake without Aspiration Outcome: Ongoing (Interventions Implemented as Appropriate) Problem: Urinary Elimination Impaired (Stroke, Hemorrhagic) Goal: Effective Urinary Elimination Outcome: Ongoing (Interventions Implemented as Appropriate) Problem: Fall Injury Risk Goal: Absence of Fall and Fall-Related Injury Outcome: Ongoing (Interventions Implemented as Appropriate) Problem: Adult Inpatient Plan of Care Goal: Plan of Care Review Outcome: Ongoing (Interventions Implemented as Appropriate) Goal: Patient-Specific Goal (Individualized) Outcome: Ongoing (Interventions Implemented as Appropriate) Goal: Absence of Hospital-Acquired Illness or Injury Outcome: Ongoing (Interventions Implemented as Appropriate) Goal: Optimal Comfort and Wellbeing Outcome: Ongoing (Interventions Implemented as Appropriate) Goal: Readiness for Transition of Care Outcome: Ongoing (Interventions Implemented as Appropriate) * Consult Note - Floyd Renner MD - 05/10/2023 8:18 AM EDT Images from the original note were not included. [facility] [place] [address] [place] [id number] INPATIENT CARDIOLOGY CONSULT FOLLOW-UP NOTE Hospital Day 22 days Reason for Consult: Impulse control ID: Myla 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 male who is here for ICH, incidentally found to have type B dissection on head and neck CTA. Cardiology is consulted for impulse control recommendations. 24-hour Events: -HR in the 60s-70s -BP in the 110s-130s/50s-60s -Spironolactone 25 mg daily started -Lasix 60 mg IV given along with metolazone 10 mg -Enalaprilat given x 3 -Labetalol given x 9 Subjective: -Confused, unable to provide Out-Patient Medications: No medications prior to admission. In-Patient Medications: spironolactone 25 mg Per NG tube Daily QUEtiapine 50 mg Per NG tube Q8H simethicone 40 mg Per NG tube 4 Times Daily hydrALAZINE 200 mg Per NG tube Q6H terazosin 1 mg Per NG tube BID tube feeding diet 250 mL Per NG tube 5 Times Daily carvediloL 50 mg Per NG tube BID cloNIDine 0.3 mg Per NG tube Q8H lidocaine 2 patch Transdermal Q24H traMADoL 50 mg Per NG tube Q8H FLUoxetine 20 mg Per NG tube Daily aspirin 81 mg Per NG tube Daily senna-docusate 2 tablet Per NG tube BID dilTIAZem 120 mg Per NG tube Q6H YUSUF lisinopriL 40 mg Per NG tube Daily ergocalciferoL (vitamin D2) 50,000 Units Per NG tube Weekly heparin (porcine) 5,000 Units Subcutaneous Q8H YUSUF camphor-methyl salicyl-menthoL Topical (Top) BID clevidipine 21 mg/hr (05/10/23 0652) nitroGLYcerin 200 mcg/min (05/10/23 0334) Review of Systems: 11 point ROS is either negative or per HPI Physical Exam: Last value Range last 8 hrs Temperature Temp: 37.1 ??C (98.7 ??F) Temp: [37.1 ??C (98.7 ??F)-37.3 ??C (99.1 ??F)] Heart Rate Heart Rate: 65 Heart Rate: [65-81] Blood Pressure BP: 133/57 BP: (116-151)/(57-126) Respiratory Rate Resp: 20 Resp: [13-26] SpO2 SpO2: 95 % SpO2: [93 %-98 %] Intake/Output Summary (Last 24 hours) at 05/10/2023 0819 Last data filed at 05/10/2023 0600 Gross per 24 hour Intake 5078.87 ml Output 2075 ml Net 3003.87 ml Wt & BMI By Encounter Date Flowsheet Row Admission (Current) from 04/18/2023 in Neuro Critical Care Unit Level 3 Wing C at [facility] Weight 118.9 kg (262 lb 2 oz) 1 05/10/2023 0600 Skin: warm and dry. HEENT: benign Neck: Carotid upstrokes and amplitudes normal. No JVD. Chest: Coarse Cor: Normal S1 and S2. No murmurs, gallops, rubs, thrills, lifts, heaves. Abdomen: distended, hypoactive bowel sounds Extremities: 2+ bilateral edema. Warm bilaterally. 2+ pedal pulses on right, trace pedal pulse on left observed--dopplerable per nursing. Neuro: somnolent, not oriented to person, place, or time CTA Chest, abdomen, pelvis 04/22/23: IMPRESSION 1. 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 2. No active extravasation, however , there is some apparent high density within a trace left pleural fluid collection possibly hemothorax and raises concern for early aneurysm leak/rupture into the pleural space. 3. Fusiform dilatation of the descending thoracic aorta measuring up to 4.7-4.8 cm. In maximal diameter IMPRESSION: 1. Type B aortic dissection 2. Hypertension and tachycardia--requiring multiple agents for control 3. Thoracic aortic dilation. Otherwise structurally normal heart. 4. Longstanding hypertension given LVH seen on echo TTE 04/19/2023: Interpretation Summary -There is severe concentric left ventricular hypertrophy. Left ventricular systolic function is normal. The left ventricular ejection fraction is 70% by Hester's biplane. There are no segmental wall motion abnormalities. -The right ventricle is probably normal in size. Right ventricular function is probably normal. -No significant valve disease. -The aortic root is dilated. The diameter at the level of the sinuses of Valsalva is 4.2 cm. The ascending aorta is dilated. The maximum diameter of the proximal ascending aorta is 4.5 cm. -No comparison study is available. Recent Labs 05/10/23 0250 05/09/23 0102 05/08/23 0136 WBC 6.1 6.0 6.4 HGB 10.4* 10.1* 10.3* HCT 27.7* 28.5* 31.3* PLATELET 225 258 258 Recent Labs 05/10/23 0250 05/09/23 1832 05/09/23 1254 05/09/23 0102 05/08/23 1230 05/08/23 0136 NA 132* -- -- 138 -- 141 K 4.3 4.6 3.9 3.7 < > 3.8 CL 98 -- -- 104 -- 108* CO2 22 -- -- 23 -- 23 BUN 17 -- -- 15 -- 21* CREATININE 1.74* -- -- 1.38 -- 1.43 < > = values in this interval not displayed. No results for input(s): AST, ALT, ALKPHOS, BILITOT, BILIDIR in the last 168 hours. Recent Labs 05/10/23 0250 05/09/23 0102 05/08/23 0136 CALCIUM 9.2 9.2 10.0 MAGNESIUM 0.75 0.87 0.72 PHOS 4.0 3.2 3.1 No results for input(s): INR, PT, PTT in the last 168 hours. No results for input(s): CK, TROPONINT in the last 168 hours. No results found for: PROBNP Assessment/Recommendations: Myla 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 male who is here for ICH, incidentally found to have type B dissection on head and neck CTA. Cardiology is consulted for impulse control recommendations. Goals of SBP <120 and HR <80 as initially put forth by Vascular Surgery proved extremely challenging to meet.The patient has long- standing HTN as evidenced by severe LVH on TTE. We feel as though his dissection is likely chronic in nature given this as well as its incidentally discovered nature. As such, wediscussed this with Vascular Surgery (Dr. Sampson) and have agreed to increase SBP goal to 140 mmHg.Would preferentially wean clevidipine gtt first as he is on dual CCB, followed by nitroglycerin gttnext. Continue IV diuresis as needed for both volume status and BP control. #Type B aortic dissection #HTN #Thoracic aortic dilation -Liberalize SBP goal to 140 mmHg -Wean clevidipine gtt followed by nitroglycerin gtt -Continue spironolactone 25 mg daily -Diurese with IV Lasix as able -Continue terazosin 1 mg BID, wean as able -Continue diltiazem 120 mg q6h -Continue Coreg 50 mg BID -Continue lisinopril 40 mg daily -Continue hydralazine 200 mg q6h -Continue clonidine 0.3 mg q8h, wean as able Case discussed with Shawn Joshi MD. We will continue to follow. Floyd Renner MD Branding Machine Operator PGY4 * Consult Note - Narciso Wilks DO - 05/10/2023 7:47 AM EDT Neurology Consult Note Patient name:Myla Acosta Date of :1955 Admit date: 04/18/2023 Attending: Scar CC: ICH Date last well known:: 04/17/23 Time last well known:: 2099 Date of discovery of symptoms:: 04/18/23 Time of discovery of symptoms:: 0000 Was IV Thrombolytics given?: No Other (specify) Was dysphagia screen performed?: Yes Date of Dysphagia Screen: 04/18/23 Time of Dysphagia Screen: 1050 Did patient pass dysphagia screen?: No NIH Stroke Scale NIH Stroke Scale Date 04/18/23 NIH Stroke Scale Time 1050 Level of Consciousness 1 LOC Questions 2 LOC Commands 0 Best Gaze 1 Vision 0 Facial Palsy 0 Motor Arm, Left 0 Motor Arm, Right 0 Motor Leg, Left 0 Motor Leg, Right 0 Limb Ataxia (UT) Sensory (UT) Best Language 3 (intubated) Dysarthria 0 Extinction and Inattention: 0 (UT) NIH Total Score We have been asked to see Myla Acosta by [facility]. ID: Myla 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 without significant PMH transferred for R cerebellar IPH with ANIL. 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 Vascular surgery was consulted and patient remained under strict BP and HR paraemters (SBP <120, HR <60) -Patient was started on aspirin -Due to difficulty controlling BP nephrology was consulted and patient was started on labetalol, hydralazine, clonidine, lisinopril diltiazem, terazosin, and still required clevidipine gtt and nitro.Urine metanephrines sent abnd pending -Patient had been extubated on 04/18 but required reintubation after a hypoxic event and AMS. He wasextubated on 05/04 to 4L NC and remained on CPAP Past Medical History: Patient Active Problem List Diagnosis Code ICH (intracerebral hemorrhage) I61.9 Medications: Allergies: No Known Allergies Family history: No family history on file. Social history: As above Physical Exam: Patient Vitals for the past 8 hrs: BP Temp Temp src Pulse Resp SpO2 Weight 05/10/23 0625 118/62 -- -- 67 24 93 % -- 05/10/23 0600 -- 37.2 ??C (99 ??F) Oral -- -- 95 % 118.9 kg (262 lb 2 oz) 05/10/23 0530 133/58 -- -- 74 21 93 % -- 05/10/23 0500 (!) 126/102 -- -- 77 21 93 % -- 05/10/23 0430 -- -- -- 74 23 93 % -- 05/10/23 0400 (!) 116/100 37.2 ??C (99 ??F) Oral 76 15 94 % -- 05/10/23 0330 -- -- -- 76 25 94 % -- 05/10/23 0300 (!) 151/126 -- -- 74 26 96 % -- 05/10/23 0230 147/70 -- -- 81 17 94 % -- 05/10/23 0200 142/57 37.3 ??C (99.1 ??F) -- 81 23 94 % -- 05/10/23 0130 134/62 -- -- 76 25 95 % -- 05/10/23 0100 128/71 -- -- 79 13 97 % -- 05/10/23 0030 126/57 -- -- 78 26 98 % -- 05/10/23 0015 -- -- -- 82 19 94 % -- 05/10/23 0000 135/57 -- -- 81 21 94 % -- Patient appears confused, restless, agitated, follows minimal commands EOMI, BTT, Moves all 4 extremities Labs: I/O 24 Hours: 05/08 0701 - 05/09 07 In: 5578.9 [I.V.:3068.9] Out: 2124 [Urine:2125] No intake/output data recorded. Recent Labs 05/10/23 0250 05/09/23 0102 05/08/23 0136 05/07/23 0110 05/06/23 0030 WBC 6.1 6.0 6.4 6.4 6.8 HGB 10.4* 10.1* 10.3* 9.2* 9.6* HCT 27.7* 28.5* 31.3* 28.3* 26.3* PLATELET 225 258 258 298 263 NEUTROABS 3.60 3.94 4.21 4.04 4.81 Recent Labs 05/10/23 0250 05/09/23 1832 05/09/23 1254 05/09/23 0102 05/08/23 1230 05/08/23 0136 05/07/23 0110 05/06/23 1444 05/06/23 0030 NA 132* -- -- 138 -- 141 142 -- 134* K 4.3 4.6 3.9 3.7 < > 3.8 4.0 < > 3.3* CL 98 -- -- 104 -- 108* 109* -- 100 CO2 22 -- -- 23 -- 23 22 -- 18* BUN 17 -- -- 15 -- 21* 33* -- 51* CREATININE 1.74* -- -- 1.38 -- 1.43 1.85* -- 2.16* GLUCOSE 151 -- -- 164 -- 137 108 -- 279* < > = values in this interval not displayed. Recent Labs 05/10/23 0250 05/09/23 0102 05/08/23 0136 CALCIUM 9.2 9.2 10.0 MAGNESIUM 0.75 0.87 0.72 PHOS 4.0 3.2 3.1 No results for input(s): AST, ALT, ALKPHOS, BILITOT, BILIDIR, LDH in the last 168 hours. No results for input(s): TROPONINT, CK in the last 168 hours. Recent Labs 05/03/23 1228 PHART 7.36 [id number] 29* PO2ART 62* [id number] 16.2* No results for input(s): INR in the last 72 hours. Lipid Panel Lab Results Component Value Date CHLPL 220 04/19/2023 HDL 86 04/19/2023 CHOLHDL 2.6 04/19/2023 TRIG 194 05/07/2023 LDLDIRECT 129 04/19/2023 Recent Labs 04/19/23 0035 HA1C 6.0* Diagnostic Tests and Imaging: Results for orders placed or performed during the hospital encounter of 04/18/23 MRI Brain wwo Contrast (Generic) (Exam End: 04/20/2023 9:39 PM) Impression 1. Recent infarct involving the posterior medial LEFT parietal lobe. 2. Unchanged size of RIGHT cerebellar intraparenchymal hemorrhage with unchanged volume of intraventricular blood products. 3. Vasogenic edema tracks along the superior right cerebellar peduncle into the right midbrain. 4. Unchanged ventricular caliber with some hyperintense signal along the ventricular surface suggesting some transependymal CSF flow. 5. No abnormal brain parenchymal or meningeal enhancement to suggest underlying malignancy. 6. Small foci of susceptibility related signal loss separate from the areas of hemorrhage, which could represent sequela of small vessel disease versus cerebral amyloid angiopathy. Thank you for letting us participate in the care of this patient. If you are a health care provider and have any questions regarding this report, please contact the number below. For patients who have questions please contact the health manager managed care that requested your imaging first. Electronically signed by: Brien Durán MD, [facility] ([phone]), at 04/20/2023 11:[address] Angiogram [place] [facility] [place] (Exam End: 04/18/2023 9:45 AM) Impression No evidence of aneurysm or vascular malformation. Thank you for letting us participate in the care of this patient. If you are a health care provider and have any questions regarding this report, please contact the number below. For patients who have questions please contact the health manager managed care that requested your imaging first. Head wo Contrast (Generic) (Exam End: 04/18/2023 9:45 AM) Impression 1. Expected postoperative changes following placement of a right frontal extraventricular drain with stable hydrocephalus. 2. No additional significant change. Thank you for letting us participate in the care of this patient. If you are a health care provider and have any questions regarding this report, please contact the number below. For patients who have questions please contact the health manager managed care that requested your imaging first. Abdomen 1 view (Generic) (Exam End: 04/18/2023 12:17 PM) Impression 1. Weighted enteric catheter projects over the expected position of the stomach. 2. Left basilar nonspecific opacity may represent atelectasis, infectious or inflammatory etiology in the correct clinical context. I have personally reviewed the image(s) and the resident's interpretation and agree with the findings, Cooper Jones MD at 04/18/2023 2:03 PM Thank you for letting us participate in the care of this patient. If you are a health care provider and have any questions regarding this report, please contact the number below. For patients who have questions please contact the health manager managed care that requested your imaging first. Electronically signed by: Cooper Jones MD, [facility] ([phone]), at 04/18/2023 2:03 PM XR Chest One View (Exam End: 04/18/2023 12:17 PM) Impression Endotracheal tube is 1.1 cm above the nichole. Recommend retraction 2-3 cm for optimal positioning. Thank you for letting us participate in the care of this patient. If you are a health care provider and have any questions regarding this report, please contact the number below. For patients who have questions please contact the health manager managed care that requested your imaging first. Electronically signed by: Brien Avery MD, [facility] ([phone]), at 04/18/2023 3:[address] Head wo Contrast (Generic) (Exam End: 04/19/2023 1:05 AM) Impression 1. Interval decompression of the right lateral ventricle with persistent enlargement of the left lateral ventricle and resulting left to right subfalcine shift. 2. Stable size of the right cerebellar hemisphere parenchymal hemorrhage in the region of the dentate nucleus. I Narciso Gonzales MD discussed the results with neuro critical care, pager [phone] NILDA JERONIMO on 04/19/2023 1:42 AM and verified that the results were understood. Thank you for letting us participate in the care of this patient. If you are a health care provider and have any questions regarding this report, please contact the number below. For patients who have questions please contact the health manager managed care that requested your imaging first. Electronically signed by: Narciso Gonzales MD, [facility] ([phone]), at 04/19/2023 1:[address] Head wo Contrast (Generic) (Exam End: 04/19/2023 4:26 PM) Impression Further decreased caliber of the supratentorial ventricles. Similar volume of right cerebellar and intraventricular hemorrhage. Persistent expansion of the third ventricle, cerebral aqueduct and fourth ventricle. Thank you for letting us participate in the care of this patient. If you are a health care provider and have any questions regarding this report, please contact the number below. For patients who have questions please contact the health manager managed care that requested your imaging first. Chest One View (Exam End: 04/20/2023 4:32 AM) Impression 1. Endotracheal tube tip projects over the lower trachea 2 cm from the nichole. 2. Nonspecific left retrocardiac opacity with truncation of the bronchial air column suspicious for mucous plugging versus aspiration. 3. Left lower lobe opacity either lobar atelectasis versus pneumonia. 4. Nonspecific peribronchial thickening/cuffing may represent interstitial edema versus infectious/inflammatory bronchiolitis. Preliminary report signed by: Steve Paredes MD at 04/20/2023 4:52 AM I have personally reviewed the image(s) and the resident's interpretation and agree with the findings, Brien Durán MD at 04/20/2023 5:02 AM Thank you for letting us participate in the care of this patient. If you are a health care provider and have any questions regarding this report, please contact the number below. For patients who have questions please contact the health manager managed care that requested your imaging first. Electronically signed by: Brien Durán MD, [facility] ([phone]), at 04/20/2023 5:[address] Head wo Contrast (Generic) (Exam End: 04/20/2023 4:18 AM) Impression 1. Similar quantity of moderate volume intraventricular blood products allowing for redistribution. 2. Unchanged size of right cerebellar intraparenchymal hemorrhage in the region of the dentate nucleus. 3. Unchanged caliber of the ventricular system. 4. Infarct-related change involving the posterior medial left parietal lobe. Suggest brain MRI for further characterization. Thank you for letting us participate in the care of this patient. If you are a health care provider and have any questions regarding this report, please contact the number below. For patients who have questions please contact the health manager managed care that requested your imaging first. Electronically signed by: Brien Durán MD, [facility] ([phone]), at 04/20/2023 4:38 AM XR Chest for Verifying Vascular Access PICC Placement At Bedside (Exam End: 04/20/2023 2:12 PM) Impression 1. Right upper extremity PICC in satisfactory position. 2. Persistent left lower lobe opacity silhouetting the diaphragm suggestive atelectasis and/or pleural effusion. Left lower lobe pneumonia could also have this appearance I have personally reviewed the image(s) and the resident's interpretation and agree with the findings, Brien Avery MD at 04/20/2023 2:55 PM Thank you for letting us participate in the care of this patient. If you are a health care provider and have any questions regarding this report, please contact the number below. For patients who have questions please contact the health manager managed care that requested your imaging first. Electronically signed by: Brien Avery MD, [facility] ([phone]), at 04/20/2023 2:55 PM XR Chest One View (Exam End: 04/21/2023 7:08 AM) Impression Retrocardiac left lower lobe collapse versus consolidation. Right upper extremity PICC line catheter tip positioned at the right atrium. Thank you for letting us participate in the care of this patient. If you are a health care provider and have any questions regarding this report, please contact the number below. For patients who have questions please contact the health manager managed care that requested your imaging first. Electronically signed by: Amanda Smith MD, [facility] ([phone]), at 04/21/2023 8:[address] Angiogram [place] [facility] [place] [facility] [place] (Exam End: 04/21/2023 5:49 PM) Impression 1. Unexpected finding. Partially visualized descending thoracic aorta demonstrates crescentic hypoattenuation with luminal narrowing concerning for dissection versus significant mural thrombus. CTA chest/abdomen recommended for further evaluation. Discussed with Filiberto Epstein NP by Dr. Michelle Munoz over the telephone at 04/22/2023 5:12 PM and verified that the results were understood. 2. Recommend retracting endotracheal tube by inch of the terminates near the origin of the right mainstem bronchus. 3. Possible mild irregularity of the left P2 VALUE STREAM COACH segment. Mild irregularity of the intradural vertebral arteries. No central branch occlusion. 4. Similar volume of intracranial hemorrhage. Unchanged caliber of the ventricles. Thank you for letting us participate in the care of this patient. If you are a health care provider and have any questions regarding this report, please contact the number below. For patients who have questions please contact the health manager managed care that requested your imaging first. Electronically signed by: Michelle Munoz, [facility] ([phone]), at 04/22/2023 5:[address] Angiogram Chest Abdomen w Contrast (Exam End: 04/22/2023 6:40 PM) Impression 1. 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 2. No active extravasation, however , there is some apparent high density within a trace left pleural fluid collection possibly hemothorax and raises concern for early aneurysm leak/rupture into the pleural space. 3. Fusiform dilatation of the descending thoracic aorta measuring up to 4.7-4.8 cm. In maximal diameter I Hali Llamas discussed the results (Impression #1) with Vignesh Epstein APRN on 04/22/2023 6:45 PM and verified that the results were understood. I have personally reviewed the image(s) and the resident's interpretation and agree with the findings, Royal Michael MD at 04/22/2023 7:55 PM Thank you for letting us participate in the care of this patient. If you are a health care provider and have any questions regarding this report, please contact the number below. For patients who have questions please contact the health manager managed care that requested your imaging first. Electronically signed by: Royal Michael MD, [facility] ([phone]), at 04/22/2023 7:55 PM XR Abdomen 1 view (Generic) (Exam End: 04/23/2023 5:15 PM) Impression 1. Enteric tube tip terminates in the distal stomach. Thank you for letting us participate in the care of this patient. If you are a health care provider and have any questions regarding this report, please contact the number below. For patients who have questions please contact the health manager managed care that requested your imaging first. Electronically signed by: Royal Michael MD, [facility] ([phone]), at 04/23/2023 5:[address] Head wo Contrast (Generic) (Exam End: 04/26/2023 10:25 AM) Impression Decreasing volume and density of intraventricular hemorrhage. Decreasing size of ventricular system. Additional findings noted above without acute interval changes. Thank you for letting us participate in the care of this patient. If you are a health care provider and have any questions regarding this report, please contact the number below. For patients who have questions please contact the health manager managed care that requested your imaging first. Head wo Contrast (Generic) (Exam End: 04/27/2023 3:41 PM) Impression Slightly increased intraventricular hemorrhage. No additional significant change. Thank you for letting us participate in the care of this patient. If you are a health care provider and have any questions regarding this report, please contact the number below. For patients who have questions please contact the health manager managed care that requested your imaging first. Chest One View (Exam End: 04/27/2023 1:45 PM) Impression Endotracheal tube tip location difficult to visualize, suspected 1.5 cm proximal to nichole. Left lower lobe atelectasis. Small left pleural effusion. I have personally reviewed the image(s) and the resident's interpretation and agree with the findings, Amanda Smith MD at 04/27/2023 4:40 PM Thank you for letting us participate in the care of this patient. If you are a health care provider and have any questions regarding this report, please contact the number below. For patients who have questions please contact the health manager managed care that requested your imaging first. Electronically signed by: Amanda Smith MD, [facility] ([phone]), at 04/27/2023 4:40 PM XR Abdomen 1 view (Generic) (Exam End: 04/29/2023 4:50 PM) Impression Satisfactorily positioned weighted enteric tube. Air-filled distended upper abdominal large bowel. Thank you for letting us participate in the care of this patient. If you are a health care provider and have any questions regarding this report, please contact the number below. For patients who have questions please contact the health manager managed care that requested your imaging first. Electronically signed by: Amanda Smith MD, [facility] ([phone]), at 04/29/2023 4:55 PM XR Chest One View (Exam End: 04/30/2023 6:21 AM) Impression * Right arm PICC terminates in the right atrium. Consider slight retraction. * Apparent widening of the mediastinal silhouette may be artifactual/projectional, however, possibility of a mediastinal hematoma should be considered. Repeat radiograph with better inspiration is recommended. * Mild central pulmonary vascular congestion. * Hazy retrocardiac opacity: Atelectasis versus infiltrate. * Trace left pleural effusion. Thank you for letting us participate in the care of this patient. If you are a health care provider and have any questions regarding this report, please contact the number below. For patients who have questions please contact the health manager managed care that requested your imaging first. Electronically signed by: Skylar Harrington MD, [facility] ([phone]), at 04/30/2023 6:[address] Head wo Contrast (Generic) (Exam End: 05/01/2023 4:04 AM) Impression Mild interval increase in size of lateral and third ventricles. Expected evolution of intracerebral and intraventricular hemorrhage. Thank you for letting us participate in the care of this patient. If you are a health care provider and have any questions regarding this report, please contact the number below. For patients who have questions please contact the health manager managed care that requested your imaging first. Electronically signed by: Jadiel Jeff MD, [facility] ([phone]), at 05/01/2023 8:[address] Head wo Contrast (Generic) (Exam End: 05/02/2023 4:00 AM) Impression No change in ventricular caliber, intraventricular hemorrhage or right cerebellar hemorrhage with moderate surrounding edema. Thank you for letting us participate in the care of this patient. If you are a health care provider and have any questions regarding this report, please contact the number below. For patients who have questions please contact the health manager managed care that requested your imaging first. Electronically signed by: Elissa Thompson MD, [facility] ([phone]), at 05/02/2023 10:59 AM XR Abdomen 1 view (Generic) (Exam End: 05/02/2023 8:00 PM) Impression 1. The colon is distended likely with a combination of solid and liquid stool and air however it does not appear obstructed. 2. Severe degenerative change at the LEFT hip, moderate in the RIGHT. There is degenerative change in the spine. Thank you for letting us participate in the care of this patient. If you are a health care provider and have any questions regarding this report, please contact the number below. For patients who have questions please contact the health manager managed care that requested your imaging first. Electronically signed by: Radha Smith MD, [facility] ([phone]), at 05/03/2023 8:27 AM XR Chest One View (Exam End: 05/02/2023 8:00 PM) Impression 1. Persistent left retrocardiac opacity for which considerations include atelectasis and/or small pleural effusion 2. Right upper extremity PICC terminates in the right atrium. Consider repositioning/replacement. I have personally reviewed the image(s) and the resident's interpretation and agree with the findings, Brien Avery MD at 05/03/2023 9:12 AM Thank you for letting us participate in the care of this patient. If you are a health care provider and have any questions regarding this report, please contact the number below. For patients who have questions please contact the health manager managed care that requested your imaging first. Electronically signed by: Brien Avery MD, [facility] ([phone]), at 05/03/2023 9:12 AM XR Chest One View (Exam End: 05/04/2023 11:20 AM) Impression Persistently low lung volumes. Continued left lower lobe consolidation consistent with atelectasis. Superimposed infection or inflammation is not excluded. I have personally reviewed the image(s) and the resident's interpretation and agree with the findings, Meet Anton MD at 05/04/2023 1:54 PM Thank you for letting us participate in the care of this patient. If you are a health care provider and have any questions regarding this report, please contact the number below. For patients who have questions please contact the health manager managed care that requested your imaging first. Abdomen 1 view (Generic) (Exam End: 05/05/2023 12:20 PM) Impression 1. Stable position of enteric tube, projecting within the gastric lumen. 2. Partially visualized distended, gas-filled colon. Unchanged compared with radiograph 05/02/2023. I have personally reviewed the image(s) and the resident's interpretation and agree with the findings, Radha Smith MD at 05/05/2023 2:19 PM Thank you for letting us participate in the care of this patient. If you are a health care provider and have any questions regarding this report, please contact the number below. For patients who have questions please contact the health manager managed care that requested your imaging first. Electronically signed by: Radha Smith MD, [facility] ([phone]), at 05/05/2023 2:19 PM XR Abdomen 1 view (Generic) (Exam End: 05/06/2023 3:38 AM) Impression Strict tube in stomach Thank you for letting us participate in the care of this patient. If you are a health care provider and have any questions regarding this report, please contact the number below. For patients who have questions please contact the health manager managed care that requested your imaging first. Electronically signed by: Lisset Brooks MD, [facility] ([phone]), at 05/06/2023 10:16 AM Assessment and Plan: 67 y.o. male without significant PMH transferred for R cerebellar IPH with ANIL s/p EVD placement and removal. Patient was found to have aortic dissection for which vascular surgery was consulted. Further patient has had significant difficulty with agitation, restlessness requiring multiple therapies to remain in range including clonidine, diltiazem, hyddralazine, lisinopril, terazosin for blood pressure control and seroquel 50mg QAM and 100mg QPM for agitation. With regards to starting anticoagulation, we would recommend getting a head CT to evaluate for further evidence of blood before starting anticoagulation. 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 For stroke risk prevention recommend continuing aspirin. #Neuro: -c/w aspirin -[facility] Narciso Wilks, DO Please page Vascular Neurology at #[phone] with any questions. Department of Neurology [place] [phone] Associated attestation - Andi Abbott MD - 05/10/2023 10:56 AM EDT Neurology Attending Attestation I evaluated the patient with the neurology resident. I have reviewed the medical records and patient's history, as well as the resident???s history and examination findings, and I agree with the details as written. My neurologic examination confirms the resident???s findings. We formulated the assessment and plan after a detailed discussion as documented. Andi Abbott MD Attending Neurologist * Plan of Care - Sanjay Arvizu RN - 05/10/2023 4:37 AM EDT OUTCOME EVALUATION NOTE: OUTCOME SUMMARY: Pt A+Ox4 at start of shift, progressively more delirious as night went on, reaching for sheryl and worsening restlessness. NCC team at bedside, aware. Scheduled seroquel given, PRN given x2 per MD order, haldol given x1. Recovered in early AM with reorientation. Pt tolerated BIPAP for ~1hr, otherwise on 3L NC during shift, tolerating. Pt NSR during shift, BP requiring interventions. Labetalol given x3, vasotec given x1. Nitro and cleviprex gtt remain at max. Pt had 1 BM during shift. Rebolledo remainsin place, catheter care provided. Lasix given, pt has had AUOP. called at start of shift, given updates. PLAN MOVING FORWARD: Q-shift neuro q2 vs q2 I+Os SBP 90-120 HR <80 INDIVIDUALIZED FALL PREVENTION INTERVENTIONS: Patient-specific fall risk factors per assessment: [current deficits]: ICU environment, confusion, restraints, lines/tubing Assistance [level of assistance required for transfers and ambulation]: 2-3x assist Supervision [direct monitoring required during toileting and ADLs]: hands-on Surveillance [continuous indirect monitoring]: ICU monitoring, purposeful hourly rounding CARE PLAN GOAL OUTCOME EVALUATION: Problem: Adjustment to Illness (Stroke, Hemorrhagic) Goal: Optimal Coping Outcome: Ongoing (Interventions Implemented as Appropriate) Problem: Bowel Elimination Impaired (Stroke, Hemorrhagic) Goal: Effective Bowel Elimination Outcome: Ongoing (Interventions Implemented as Appropriate) Problem: Cerebral Tissue Perfusion (Stroke, Hemorrhagic) Goal: Optimal Cerebral Tissue Perfusion Outcome: Ongoing (Interventions Implemented as Appropriate) Problem: Cognitive Impairment (Stroke, Hemorrhagic) Goal: Optimal Cognitive Function Outcome: Ongoing (Interventions Implemented as Appropriate) Problem: Communication Impairment (Stroke, Hemorrhagic) Goal: Effective Communication Skills Outcome: Ongoing (Interventions Implemented as Appropriate) Problem: Functional Ability Impaired (Stroke, Hemorrhagic) Goal: Optimal Functional Ability Outcome: Ongoing (Interventions Implemented as Appropriate) Problem: Pain (Stroke, Hemorrhagic) Goal: Acceptable Pain Control Outcome: Ongoing (Interventions Implemented as Appropriate) Problem: Respiratory Compromise (Stroke, Hemorrhagic) Goal: Effective Oxygenation and Ventilation Outcome: Ongoing (Interventions Implemented as Appropriate) Problem: Sensorimotor Impairment (Stroke, Hemorrhagic) Goal: Improved Sensorimotor Function Outcome: Ongoing (Interventions Implemented as Appropriate) Problem: Swallowing Impairment (Stroke, Hemorrhagic) Goal: Oral Intake without Aspiration Outcome: Ongoing (Interventions Implemented as Appropriate) Problem: Urinary Elimination Impaired (Stroke, Hemorrhagic) Goal: Effective Urinary Elimination Outcome: Ongoing (Interventions Implemented as Appropriate) Problem: Fall Injury Risk Goal: Absence of Fall and Fall-Related Injury Outcome: Ongoing (Interventions Implemented as Appropriate) Problem: Adult Inpatient Plan of Care Goal: Plan of Care Review Outcome: Ongoing (Interventions Implemented as Appropriate) Goal: Patient-Specific Goal (Individualized) Outcome: Ongoing (Interventions Implemented as Appropriate) Goal: Absence of Hospital-Acquired Illness or Injury Outcome: Ongoing (Interventions Implemented as Appropriate) Goal: Optimal Comfort and Wellbeing Outcome: Ongoing (Interventions Implemented as Appropriate) Goal: Readiness for Transition of Care Outcome: Ongoing (Interventions Implemented as Appropriate) * Plan of Care - Anoop Arias RN - 05/09/2023 7:30 PM EDT OUTCOME EVALUATION NOTE: OUTCOME SUMMARY: Pt alert to self and place on this shift; following commands on all extremities; denies pain. On 3LNC. Unable to meet SBP goal of <120 at the beginning of shift; cleviprex gtt titated to max 21mcg, Nitro 200mcg; PRN lebatol given x4, vasotec x2 with scheduled Antihypertensive meds; SBP goal met. Electrolyte replaced.Rebolledo in place; inadequate draining; trouble shoot rebolledo; flushed and [place] x2; provider aware; One time lasix given followed by by multiple diuretic; large dose lasix planned for tonight. One BM this shift. PLAN MOVING FORWARD: Qshift neuro SBP 90-120 HR <80 q1 VS CPG GOAL OUTCOME EVALUATION: Problem: Adjustment to Illness (Stroke, Hemorrhagic) Goal: Optimal Coping Outcome: Ongoing (Interventions Implemented as Appropriate) Problem: Bowel Elimination Impaired (Stroke, Hemorrhagic) Goal: Effective Bowel Elimination Outcome: Ongoing (Interventions Implemented as Appropriate) Problem: Cerebral Tissue Perfusion (Stroke, Hemorrhagic) Goal: Optimal Cerebral Tissue Perfusion Outcome: Ongoing (Interventions Implemented as Appropriate) Problem: Cognitive Impairment (Stroke, Hemorrhagic) Goal: Optimal Cognitive Function Outcome: Ongoing (Interventions Implemented as Appropriate) Problem: Communication Impairment (Stroke, Hemorrhagic) Goal: Effective Communication Skills Outcome: Ongoing (Interventions Implemented as Appropriate) Problem: Functional Ability Impaired (Stroke, Hemorrhagic) Goal: Optimal Functional Ability Outcome: Ongoing (Interventions Implemented as Appropriate) Problem: Pain (Stroke, Hemorrhagic) Goal: Acceptable Pain Control Outcome: Ongoing (Interventions Implemented as Appropriate) Problem: Respiratory Compromise (Stroke, Hemorrhagic) Goal: Effective Oxygenation and Ventilation Outcome: Ongoing (Interventions Implemented as Appropriate) Problem: Sensorimotor Impairment (Stroke, Hemorrhagic) Goal: Improved Sensorimotor Function Outcome: Ongoing (Interventions Implemented as Appropriate) Problem: Swallowing Impairment (Stroke, Hemorrhagic) Goal: Oral Intake without Aspiration Outcome: Ongoing (Interventions Implemented as Appropriate) Problem: Urinary Elimination Impaired (Stroke, Hemorrhagic) Goal: Effective Urinary Elimination Outcome: Ongoing (Interventions Implemented as Appropriate) Problem: Fall Injury Risk Goal: Absence of Fall and Fall-Related Injury Outcome: Ongoing (Interventions Implemented as Appropriate) Problem: Adult Inpatient Plan of Care Goal: Plan of Care Review Outcome: Ongoing (Interventions Implemented as Appropriate) Goal: Patient-Specific Goal (Individualized) Outcome: Ongoing (Interventions Implemented as Appropriate) Goal: Absence of Hospital-Acquired Illness or Injury Outcome: Ongoing (Interventions Implemented as Appropriate) Goal: Optimal Comfort and Wellbeing Outcome: Ongoing (Interventions Implemented as Appropriate) Goal: Readiness for Transition of Care Outcome: Ongoing (Interventions Implemented as Appropriate) * Consult Note - Coleman Orosco RN - 05/09/2023 3:00 PM EDT Images from the original note were not included. Certified Wound Care Nurse Note Situation: Follow-up to see Myla Acosta for re-evaluation of right index finger HAPI. Informedby patient's that there are new injuries on the right small finger. Background: eD-H notes reviewed for history, admitting diagnosis and active problem list. Per MD note: 67 y.o. without significant PMH transferred for [facility]. Right arterial line was placed on 04/21 and removed on 05/02. Pressure injury to the right index finger from the A-line wrist board strap noted on 05/01. Wound Assessment and Care Provided: Patient seen this morning in room 336-A in bed, reason for visit explained to patient, permission received to assess skin. at bedside. Anatomical location: Right index finger Dressing removed: none, open to air Cleansed with: wound cleanser and gauze Wound: dry, red base Periwound: intact Dressing applied: mepilex border Photos taken: Anatomical location: Right small finger Dressing removed: none, open to air Wound: two separate intact serosanguinous filled blisters Periwound: intact Dressing applied: left open to air Photos taken: Munir Score: 15 Existing Wounds: Pressure Injury 05/02/23 other (see comments) Stage 1 (Active) Dressing Appearance open to air 05/09/23 1459 Pressure Injury Appearance dry;maroon 05/09/23 1459 Wound Length (cm) 0.9 cm 05/09/23 1459 Wound Width (cm) 0.6 cm 05/09/23 1459 Wound Surface Area (cm^2) 0.54 cm^2 05/09/23 1459 Edges open 05/09/23 1459 Stage Stage 2 05/09/23 1459 Drainage Amount none 05/09/23 1459 Dressing foam 05/09/23 1459 Wound Image 05/09/23 1459 Pressure Injury 05/09/23 other (see comments) suspected deep tissue injury (Active) Pressure Injury Appearance blistered 05/09/23 1458 Stage suspected deep tissue injury 05/09/23 1458 Drainage Amount none 05/09/23 1458 Wound Image 05/09/23 1458 Nutritional Status Wt Readings from Last 1 Encounters: 05/09/23 117 kg (257 lb 15 oz) Body mass index is 38.64 kg/m??. Labs Lab Results Component Value Date ALBUMIN 3.1 (L) 04/28/2023 ALBUMIN 3.5 04/23/2023 ALBUMIN 3.9 04/19/2023 HA1C 6.0 (H) 04/19/2023 WBC 6.0 05/09/2023 WBC 6.4 05/08/2023 WBC 6.4 05/07/2023 HGB 10.1 (L) 05/09/2023 HGB 10.3 (L) 05/08/2023 HGB 9.2 (L) 05/07/2023 HCT 28.5 (L) 05/09/2023 HCT 31.3 (L) 05/08/2023 HCT 28.3 (L) 05/07/2023 PLATELET 258 05/09/2023 PLATELET 258 05/08/2023 PLATELET 298 05/07/2023 INR 1.1 04/23/2023 INR 1.1 04/19/2023 INR 1.1 04/18/2023 PT 12.7 (H) 04/23/2023 PT 12.2 04/19/2023 PT 12.4 04/18/2023 Current bed: Progressa Assessment: The right index finger HAPI is now an open wound. The base is dry due to not being covered with a dressing and is now considered a stage 2 pressure injury. There are two new maroon colored blisters on the right small finger that are also likely pressure injuries from the A-line board strap, as the A-line was removed on 05/02 and it takes 3-5 days for deep tissue injuries to present on the skin. These are considered hospital-acquired deep tissue injuries. Wound Treatment Recommendations: Right Index finger: Mepilex Border dressing-nursing to change every 3 days and as needed for dressing with 50% or greater strike though drainage. 1. Cleanse wound with dermal wound cleanser and gauze. 2. Apply Mepilex Border dressing Right small finger: Can be left open to air while blisters are intact. If blisters rupture can cover with Mepilex Border dressing-nursing to change every 3 days and as needed for dressing with 50% orgreater strike though drainage. 1. Cleanse wound with dermal wound cleanser and gauze. 2. Apply Mepilex Border dressing Follow hospital standard for pressure injury prevention and skin care. Refer to adult/pediatric pressure injury prevention job aid in the clinical policy library. Wound care will follow weekly. Discussed plan with: RN: Linda/Cris Please contact Coleman Orosco RN on pager [phone] or the wound care team at [phone] or pager [phone] with skin and wound care concerns or questions. * Consult Note - Floyd Renner MD - 05/09/2023 7:16 AM EDT Images from the original note were not included. [facility] [place] [id number] INPATIENT CARDIOLOGY CONSULT FOLLOW-UP NOTE Hospital Day 21 days Reason for Consult: Impulse control ID: Myla 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 male who is here for ICH, incidentally found to have type B dissection on head and neck CTA. Goal SBP <120, goal HR <80 per Vascular Surgery recommendations. Cardiology is consulted for impulse control recommendations. 24-hour Events: -HR in the 70s -BP in the 130s-140s/50s-70s -Current regimen: Carvedilol 50 mg twice daily (increased from 25 mg twice daily) Clonidine 0.3 mg every 8 hours Diltiazem 120 mg every 6 hours Hydralazine 200 mg every 6 hours Lisinopril 40 mg daily Terazosin 1 mg twice daily (increased from daily) Clevidipine drip at 21 (increased from 16) Nitroglycerin drip at 200 As needed labetalol (received X3) -Vascular surgery recommending ongoing systolic blood pressure goal less than 120 Subjective: -Somnolent/confused; cannot provide Out-Patient Medications: No medications prior to admission. In-Patient Medications: simethicone 40 mg Per NG tube 4 Times Daily hydrALAZINE 200 mg Per NG tube Q6H QUEtiapine 100 mg Per NG tube Nightly QUEtiapine 50 mg Per NG tube Daily terazosin 1 mg Per NG tube BID tube feeding diet 250 mL Per NG tube 5 Times Daily carvediloL 50 mg Per NG tube BID cloNIDine 0.3 mg Per NG tube Q8H lidocaine 2 patch Transdermal Q24H traMADoL 50 mg Per NG tube Q8H FLUoxetine 20 mg Per NG tube Daily aspirin 81 mg Per NG tube Daily senna-docusate 2 tablet Per NG tube BID dilTIAZem 120 mg Per NG tube Q6H YUSUF lisinopriL 40 mg Per NG tube Daily ergocalciferoL (vitamin D2) 50,000 Units Per NG tube Weekly heparin (porcine) 5,000 Units Subcutaneous Q8H YUSUF camphor-methyl salicyl-menthoL Topical (Top) BID clevidipine 16 mg/hr (05/09/23512) nitroGLYcerin 200 mcg/min (05/09/23512) Review of Systems: 11 point ROS is either negative or per HPI Physical Exam: Last value Range last 8 hrs Temperature Temp: 37.4 ??C (99.3 ??F) Temp: [37.4 ??C (99.3 ??F)-37.5 ??C (99.5 ??F)] Heart Rate Heart Rate: 74 Heart Rate: [70-89] Blood Pressure BP: 140/70 BP: (124-156)/(51-70) Respiratory Rate Resp: 17 Resp: [17-27] SpO2 SpO2: 92 % SpO2: [92 %-97 %] Intake/Output Summary (Last 24 hours) at 05/09/2023 0716 Last data filed at 05/09/2023 0606 Gross per 24 hour Intake 3027.7 ml Output 3225 ml Net -197.3 ml Wt & BMI By Encounter Date Flowsheet Row Admission (Current) from 04/18/2023 in Neuro Critical Care Unit Level 3 Wing C at [facility] Weight 117 kg (257 lb 15 oz) 1 05/09/2023 0600 Skin: warm and dry. HEENT: benign Neck: Carotid upstrokes and amplitudes normal. No JVD. Chest: Coarse Cor: Normal S1 and S2. No murmurs, gallops, rubs, thrills, lifts, heaves. Abdomen: distended, hypoactive bowel sounds Extremities: 2+ bilateral edema. Warm bilaterally. 2+ pedal pulses on right, trace pedal pulse on left observed--dopplerable per nursing. Neuro: somnolent, not oriented to person, place, or time CTA Chest, abdomen, pelvis 04/22/23: IMPRESSION 1. 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 2. No active extravasation, however , there is some apparent high density within a trace left pleural fluid collection possibly hemothorax and raises concern for early aneurysm leak/rupture into the pleural space. 3. Fusiform dilatation of the descending thoracic aorta measuring up to 4.7-4.8 cm. In maximal diameter IMPRESSION: 1. Type B aortic dissection 2. Hypertension and tachycardia--requiring multiple agents for control 3. Thoracic aortic dilation. Otherwise structurally normal heart. 4. Longstanding hypertension given LVH seen on echo TTE 04/19/2023: Interpretation Summary -There is severe concentric left ventricular hypertrophy. Left ventricular systolic function is normal. The left ventricular ejection fraction is 70% by Hester's biplane. There are no segmental wall motion abnormalities. -The right ventricle is probably normal in size. Right ventricular function is probably normal. -No significant valve disease. -The aortic root is dilated. The diameter at the level of the sinuses of Valsalva is 4.2 cm. The ascending aorta is dilated. The maximum diameter of the proximal ascending aorta is 4.5 cm. -No comparison study is available. Recent Labs 05/09/23 0102 05/08/23 0136 05/07/23 0110 WBC 6.0 6.4 6.4 HGB 10.1* 10.3* 9.2* HCT 28.5* 31.3* 28.3* PLATELET 258 258 298 Recent Labs 05/09/23 0102 05/08/23202605/08/23 1230 05/08/23 0136 05/07/23 0110 NA 138 -- -- 141 142 K 3.7 4.0 3.8 3.8 4.0 CL 104 -- -- 108* 109* CO2 23 -- -- 23 22 BUN 15 -- -- 21* 33* CREATININE 1.38 -- -- 1.43 1.85* No results for input(s): AST, ALT, ALKPHOS, BILITOT, BILIDIR in the last 168 hours. Recent Labs 05/09/23 01005/08/23 0136 05/07/23 0110 CALCIUM 9.2 10.0 9.8 MAGNESIUM 0.87 0.72 0.84 PHOS 3.2 3.1 4.2 No results for input(s): INR, PT, PTT in the last 168 hours. No results for input(s): CK, TROPONINT in the last 168 hours. No results found for: PROBNP Assessment/Recommendations: Myla 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 male who is here for ICH, incidentally found to have type B dissection on head and neck CTA. Cardiology is consulted for impulse control recommendations. Goals of SBP <120 and HR <80 as put forth by Vascular Surgery are proving extremely challenging to meet. The patient has long-standing HTN as evidenced by severe LVH on TTE. He has been on numerous agents as below (including some duplicate agents from the same class - CCB, alpha antagonists) with systolic BPconsistently above 120 mmHg. We believe that his dissection likely represents a chronic process given its nature of being incidentally discovered and his longstanding HTN. Given a lack of temporary or durable means by which to achieve the current BP goals, we favor an approach of more liberalized targets. In the meantime, would add on spironolactone 25 mg daily as he is not on an MRA as of yet. Continue IV diuresis as able for volume status and BP control. #Type B aortic dissection #HTN #Thoracic aortic dilation -Start spironolactone 25 mg daily -Consider reduction in SBP goal to 140 mmHg -Diurese with IV Lasix -Taper clevidipine gtt and assess response -Continue terazosin 1 mg BID -Continue diltiazem 120 mg q6h -Continue Coreg 50 mg BID -Continue lisinopril 40 mg daily -Continue hydralazine 200 mg q6h -Continue clonidine 0.3 mg q8h -Continue nitroglycerin gtt and wean as able Case discussed with Shawn Joshi MD. We will continue to follow. Floyd Renner MD Branding Machine Operator PGY4 * Plan of Care - Sanjay Arvizu RN - 05/09/2023 4:39 AM EDT OUTCOME EVALUATION NOTE: OUTCOME SUMMARY: Pt remains confused during shift, 5/5 strength x4. See neuro flowsheet for exam. Pt tolerated bipapfor approx. 2 hours, otherwise tolerating 3L NC during shift. Pt NSR during shift, Bps unable to remain in goal area. Labetalol given x1, vasotec given x1. Nitro and cleviprex gtt at max. Team is aware. Pt had no BM during shift. Rebolledo still in place with AUOP. Catheter care provided. Pt restless when awake. Given seroquel and haldol x1. Sitter at bedside. called, given updates. PLAN MOVING FORWARD: Qshift neuro SBP 90-120 HR <80 q1 VS INDIVIDUALIZED FALL PREVENTION INTERVENTIONS: Patient-specific fall risk factors per assessment: [current deficits]: ICU environment, lines/tubing, generalized weakness, AMS Assistance [level of assistance required for transfers and ambulation]: 2-3x assist Supervision [direct monitoring required during toileting and ADLs]: hands-on, sitter at bedside Surveillance [continuous indirect monitoring]: ICU monitoring, purposeful hourly rounding CARE PLAN GOAL OUTCOME EVALUATION: Problem: Adjustment to Illness (Stroke, Hemorrhagic) Goal: Optimal Coping Outcome: Ongoing (Interventions Implemented as Appropriate) Problem: Bowel Elimination Impaired (Stroke, Hemorrhagic) Goal: Effective Bowel Elimination Outcome: Ongoing (Interventions Implemented as Appropriate) Problem: Cerebral Tissue Perfusion (Stroke, Hemorrhagic) Goal: Optimal Cerebral Tissue Perfusion Outcome: Ongoing (Interventions Implemented as Appropriate) Problem: Cognitive Impairment (Stroke, Hemorrhagic) Goal: Optimal Cognitive Function Outcome: Ongoing (Interventions Implemented as Appropriate) Problem: Communication Impairment (Stroke, Hemorrhagic) Goal: Effective Communication Skills Outcome: Ongoing (Interventions Implemented as Appropriate) Problem: Functional Ability Impaired (Stroke, Hemorrhagic) Goal: Optimal Functional Ability Outcome: Ongoing (Interventions Implemented as Appropriate) Problem: Pain (Stroke, Hemorrhagic) Goal: Acceptable Pain Control Outcome: Ongoing (Interventions Implemented as Appropriate) Problem: Respiratory Compromise (Stroke, Hemorrhagic) Goal: Effective Oxygenation and Ventilation Outcome: Ongoing (Interventions Implemented as Appropriate) Problem: Sensorimotor Impairment (Stroke, Hemorrhagic) Goal: Improved Sensorimotor Function Outcome: Ongoing (Interventions Implemented as Appropriate) Problem: Swallowing Impairment (Stroke, Hemorrhagic) Goal: Oral Intake without Aspiration Outcome: Ongoing (Interventions Implemented as Appropriate) Problem: Urinary Elimination Impaired (Stroke, Hemorrhagic) Goal: Effective Urinary Elimination Outcome: Ongoing (Interventions Implemented as Appropriate) Problem: Fall Injury Risk Goal: Absence of Fall and Fall-Related Injury Outcome: Ongoing (Interventions Implemented as Appropriate) Problem: Adult Inpatient Plan of Care Goal: Plan of Care Review Outcome: Ongoing (Interventions Implemented as Appropriate) Goal: Patient-Specific Goal (Individualized) Outcome: Ongoing (Interventions Implemented as Appropriate) Goal: Absence of Hospital-Acquired Illness or Injury Outcome: Ongoing (Interventions Implemented as Appropriate) Goal: Optimal Comfort and Wellbeing Outcome: Ongoing (Interventions Implemented as Appropriate) Goal: Readiness for Transition of Care Outcome: Ongoing (Interventions Implemented as Appropriate) * Care Management - Angelia Thomas MSW - 05/08/2023 10:47 AM EDT This HOSPITAL MEDICINE DIRECTOR met with pt and this AM to finalize guardianship petition. Pt still altered and unable to participate in any meaningful communication. Guardianship petition for [place] submitted. This HOSPITAL MEDICINE DIRECTOR to continue to follow. LUCIO Mercado [facility] Pager [phone] 05/08/23 10:48 AM * Consult Note - Shawn Joshi MD - 05/08/2023 7:12 AM EDT Images from the original note were not included. [facility] [place] [id number] INPATIENT CARDIOLOGY CONSULT FOLLOW-UP NOTE Hospital Day 20 days Reason for Consult: Impulse control ID: Myla 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 male who is here for ICH, incidentally found to have type B dissection on head and neck CTA. Goal SBP <120, goal HR <80 per Vascular Surgery recommendations. Cardiology is consulted for impulse control recommendations. 24-hour Events: -HR in the 60s-70s, BP in the 120s-140s/70s-90s -Current regimen: Diltiazem 120 mg q6h Labetalol 800 mg q8h -> switched to Coreg 25 mg BID this AM Lisinopril 40 mg daily Terazosin 1 mg daily Hydralazine 200 mg q6h Clonidine 0.3 mg q8h Clevidipine gtt at 16 Nitroglycerin gtt at 75 Precedex gtt Subjective: -Disoriented, unable to meaningfully interact Out-Patient Medications: No medications prior to admission. In-Patient Medications: magnesium sulfate 2 g Intravenous Q2H QUEtiapine 25 mg Per NG tube Daily simethicone 40 mg Per NG tube 4 Times Daily hydrALAZINE 200 mg Per NG tube Q6H cloNIDine 0.3 mg Per NG tube Q8H lidocaine 2 patch Transdermal Q24H traMADoL 50 mg Per NG tube Q8H FLUoxetine 20 mg Per NG tube Daily labetaloL 800 mg Per NG tube Q8H QUEtiapine 75 mg Per NG tube Nightly aspirin 81 mg Per NG tube Daily senna-docusate 2 tablet Per NG tube BID dilTIAZem 120 mg Per NG tube Q6H YUSUF terazosin 1 mg Per NG tube Nightly lisinopriL 40 mg Per NG tube Daily protein powder 1 Scoop Per NG tube TID ergocalciferoL (vitamin D2) 50,000 Units Per NG tube Weekly ipratropium-albuteroL 3 mL Nebulization Q4H sodium chloride 4 mL Nebulization Q4H heparin (porcine) 5,000 Units Subcutaneous Q8H YUSUF camphor-methyl salicyl-menthoL Topical (Top) BID tube feeding diet 1,000 mL (05/08/23 0600) clevidipine 16 mg/hr (05/08/23605) dexmedeTOMIDine 1.7 mcg/kg/hr (05/08/23605) nitroGLYcerin 75 mcg/min (05/08/23599) Review of Systems: 11 point ROS is either negative or per HPI Physical Exam: Last value Range last 8 hrs Temperature Temp: 36.8 ??C (98.3 ??F) Temp: [36.8 ??C (98.2 ??F)-36.9 ??C (98.5 ??F)] Heart Rate Heart Rate: 72 Heart Rate: [62-80] Blood Pressure BP: 121/75 BP: (97-154)/(54-121) Respiratory Rate Resp: 22 Resp: [14-27] SpO2 SpO2: 95 % SpO2: [89 %-99 %] Intake/Output Summary (Last 24 hours) at 05/08/2023 0712 Last data filed at 05/08/2023 0600 Gross per 24 hour Intake 3200.3 ml Output 4745 ml Net -1544.7 ml Wt & BMI By Encounter Date Flowsheet Row Admission (Current) from 04/18/2023 in Neuro Critical Care Unit Level 3 [place] [facility] at [facility] Weight 117.1 kg (258 lb 2.5 oz) 1 05/08/2023 0542 Skin: warm and dry. HEENT: benign Neck: Carotid upstrokes and amplitudes normal. No JVD. Chest: Coarse Cor: Normal S1 and S2. No murmurs, gallops, rubs, thrills, lifts, heaves. Abdomen: distended, hypoactive bowel sounds Extremities: 2+ bilateral edema. Warm bilaterally. 2+ pedal pulses on right, trace pedal pulse on left observed--dopplerable per nursing. Neuro: somnolent, not oriented to person, place, or time CTA Chest, abdomen, pelvis 04/22/23: IMPRESSION 1. 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 2. No active extravasation, however , there is some apparent high density within a trace left pleural fluid collection possibly hemothorax and raises concern for early aneurysm leak/rupture into the pleural space. 3. Fusiform dilatation of the descending thoracic aorta measuring up to 4.7-4.8 cm. In maximal diameter IMPRESSION: 1. Type B aortic dissection 2. Hypertension and tachycardia--requiring multiple agents for control 3. Thoracic aortic dilation. Otherwise structurally normal heart. 4. Longstanding hypertension given LVH seen on echo TTE 04/19/2023: Interpretation Summary -There is severe concentric left ventricular hypertrophy. Left ventricular systolic function is normal. The left ventricular ejection fraction is 70% by Hester's biplane. There are no segmental wall motion abnormalities. -The right ventricle is probably normal in size. Right ventricular function is probably normal. -No significant valve disease. -The aortic root is dilated. The diameter at the level of the sinuses of Valsalva is 4.2 cm. The ascending aorta is dilated. The maximum diameter of the proximal ascending aorta is 4.5 cm. -No comparison study is available. Recent Labs 05/08/2313505/07/23 0110 05/06/23 0030 WBC 6.4 6.4 6.8 HGB 10.3* 9.2* 9.6* HCT 31.3* 28.3* 26.3* PLATELET 258 298 263 Recent Labs 05/08/23 0136 05/07/23 0110 05/06/23 1444 05/06/23 0030 NA 141 142 -- 134* K 3.8 4.0 4.1 3.3* CL 108* 109* -- 100 CO2 23 22 -- 18* BUN 21* 33* -- 51* CREATININE 1.43 1.85* -- 2.16* No results for input(s): AST, ALT, ALKPHOS, BILITOT, BILIDIR in the last 168 hours. Recent Labs 05/08/2313505/07/23 0110 05/06/23 0030 CALCIUM 10.0 9.8 8.6 MAGNESIUM 0.72 0.84 0.85 PHOS 3.1 4.2 4.5 No results for input(s): INR, PT, PTT in the last 168 hours. No results for input(s): CK, TROPONINT in the last 168 hours. No results found for: PROBNP Assessment/Recommendations: Myla 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 male who is here for ICH, incidentally found to have type B dissection on head and neck CTA. Goal SBP <120, goal HR <80 per Vascular Surgery recommendations. Cardiology is consulted for impulse control recommendations. Current goals of SBP <120 and HR <80 are not able to be met with numerous agents as below. We suspect the dissection might be chronic in paras gordillo and he certainly has long-standing, severe HTN as evidenced by severe LVH on TTE. Would recommend liberalizing his SBP goal in this setting to 140 mmHg. He is on dual CCB (clevidipine and diltiazem) as well as dual alpha antagonists (terazosin and clonidine) currently. He continues to appear volume overloaded and would recommend diuresing with IV Lasix for both this and BP control. Would taper clevidipine today and otherwise maintain the present regimen. #Type B aortic dissection #HTN #Thoracic aortic dilation -Consider liberalizing SBP goal to 140 mmHg -Diurese with IV Lasix -Taper clevidipine gtt today and assess response -Continue terazosin 1 mg daily -Continue diltiazem 120 mg q6h -Continue Coreg 25 mg BID -Continue lisinopril 40 mg daily -Continue hydralazine 200 mg q6h -Continue clonidine 0.3 mg q8h -Wean nitroglycerin gtt as able Case discussed with Shawn Joshi MD. We will continue to follow. Floyd Renner MD Branding Machine Operator PGY4 * Care Management - Melchor Frazier RN - 05/08/2023 7:03 AM EDT OFFICE OF CARE MANAGEMENT PROGRESS NOTE LOS: Hospital Day 20 days Chart reviewed, care reviewed with primary team and at interdisciplinary rounds. Patient continues to meet inpatient level of care related to: vasoactive medication and Q 1 hour interventions and remains in the hospital related to provider note of 05/07/2023: 67 y.o. male with h/o etoh use, undoctored p/w R cerebellar hemorrhage with intraventricular extension, acute obstructive hydrocephalus s/p EVD placement, course c/b failed extubation 2/2 aspiration x 2, fluid overload. 24hr events: Agitation improved with higher dose ICU Needs: Q1 hour interventions, ICU specific devices / therapies, vasoactive medications Nephrology and Cardiology following for: OVI and Aortic dissection Functional status prior to admission: Independent Home Environment: Others in the home: spouse. Current Living Arrangements: home/apartment/condo. Accessibility Concerns: 0 PATRICIA,. Current Functional Ability: Assistive Person and Equipment DME used at home: (has grab bars available) DME Needed at Discharge: Pending PT / OT Recommendations Last Physical Therapy Recommendation: acute rehabilitation facility, swing bed rehabilitation facility with to be determined Last Occupational Therapy Recommendation: acute rehabilitation facility with to be determined Patient is insured through: Primary Insurance: MEDICARE Payor: MEDICARE / Plan: MEDICARE PART A & B / Product Type: *No Product type* / Secondary Insurance: [employer] [place] Prescription Coverage: Yes Preferred Pharmacy: [id number] - [facility], [place] - [address] [place] [address] Plan for discharge is: Pending Hospital Course and PT/OT Recommendations Agency Referrals & Follow-up Care: Pending Hospital Course and PT/OT Recommendations Transportation: pending needs closer to discharge Barriers to discharge: Discharge planning, ICU Needs Psych: Adjustment to diagnosis/illness, Decision-making, Coping/stress, Grief/loss, Cognitive/perceptual Supports: Caregiver support Cerebellar hemorrhage Aortic dissection Respiratory failure RN/CM following with HOSPITAL MEDICINE DIRECTOR and LTC-: Advance Directives: none per spouse Guardianship discussion with HOSPITAL MEDICINE DIRECTOR and application process started - 05/05/2023 LTC referral sent to [facility]: 05/01/2023 Plan going forward: Service Care Management will continue to follow and assist with discharge planning and coordination of care as indicated. Anticipated Date of Discharge: to be determined Melchor Frazier RN RN/CM - Cellphone: [phone] Pager: [phone] Covering Service RN/CM Update: 2:00 PM RN/CM has followed up with: HOSPITAL MEDICINE DIRECTOR Advance Directives on file: none per spouse Guardianship discussion with HOSPITAL MEDICINE DIRECTOR and application process started: 05/05/2023 Guardianship on file: 05/08/2023 LTC referral sent to [facility]: 05/01/2023 * Consult Note - Gisell Nguyen MD - 05/08/2023 6:50 AM EDT Neurology Consult Note Patient name:Myla Acosta Date of :1955 Admit date: 04/18/2023 Attending: Scar CC: ICH Date last well known:: 04/17/23 Time last well known:: 2100 Date of discovery of symptoms:: 04/18/23 Time of discovery of symptoms:: 0000 Was IV Thrombolytics given?: No Other (specify) Was dysphagia screen performed?: Yes Date of Dysphagia Screen: 04/18/23 Time of Dysphagia Screen: 1050 Did patient pass dysphagia screen?: No NIH Stroke Scale NIH Stroke Scale Date 04/18/23 NIH Stroke Scale Time 1050 Level of Consciousness 1 LOC Questions 2 LOC Commands 0 Best Gaze 1 Vision 0 Facial Palsy 0 Motor Arm, Left 0 Motor Arm, Right 0 Motor Leg, Left 0 Motor Leg, Right 0 Limb Ataxia (UT) Sensory (UT) Best Language 3 (intubated) Dysarthria 0 Extinction and Inattention: 0 (UT) NIH Total Score We have been asked to see Myla Acosta by [facility]. ID: Myla 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 without significant PMH transferred for R cerebellar IPH with ANIL. 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 Vascular surgery was consulted and patient remained under strict BP and HR paraemters (SBP <120, HR <60) -Patient was started on aspirin -Due to difficulty controlling BP nephrology was consulted and patient was started on labetalol, hydralazine, clonidine, lisinopril diltiazem, terazosin, and still required clevidipine gtt and nitro.Urine metanephrines sent abnd pending -Patient had been extubated on 04/18 but required reintubation after a hypoxic event and AMS. He wasextubated on 05/04 to 4L NC and remained on CPAP Past Medical History: Patient Active Problem List Diagnosis Code ICH (intracerebral hemorrhage) I61.9 Medications: Allergies: No Known Allergies Family history: No family history on file. Social history: As above Physical Exam: Patient Vitals for the past 8 hrs: BP Temp Temp src Pulse Resp SpO2 Weight 05/08/23 0615 121/75 -- -- 72 22 95 % -- 05/08/23 0600 138/84 36.8 ??C (98.3 ??F) Axillary 72 23 96 % -- 05/08/23 0545 154/78 -- -- 68 14 99 % -- 05/08/23 0542 -- -- -- -- -- -- 117.1 kg (258 lb 2.5 oz) 05/08/23 0533 145/90 -- -- -- -- -- -- 05/08/23 0530 145/90 -- -- 73 23 98 % -- 05/08/23 0515 130/82 -- -- 69 18 93 % -- 05/08/23 0500 132/87 -- -- 69 25 94 % -- 05/08/23 0445 124/76 -- -- 70 20 93 % -- 05/08/23 0430 120/71 -- -- 68 19 95 % -- 05/08/23 0415 119/72 -- -- 64 22 95 % -- 05/08/23 0400 109/62 36.9 ??C (98.5 ??F) Axillary 62 17 96 % -- 05/08/23 0346 -- -- -- 62 -- -- -- 05/08/23 0345 97/61 -- -- 62 22 96 % -- 05/08/23 0330 101/55 -- -- 64 21 95 % -- 05/08/23 0315 101/54 -- -- 67 17 95 % -- 05/08/23 0300 99/59 -- -- 68 20 96 % -- 05/08/23 0245 109/58 -- -- 70 27 95 % -- 05/08/23 0230 129/78 -- -- 69 19 91 % -- 05/08/23 0225 -- -- -- 73 23 (!) 89 % -- 05/08/23 0215 109/75 -- -- 76 19 93 % -- 05/08/23 0200 (!) 128/96 36.9 ??C (98.4 ??F) Axillary 80 18 94 % -- 05/08/23 0145 133/85 -- -- 79 22 95 % -- 05/08/23 0130 124/72 -- -- 78 27 95 % -- 05/08/23 0119 148/78 -- -- 80 26 95 % -- 05/08/23 0117 148/78 -- -- 78 -- -- -- 05/08/23 0115 153/82 -- -- 75 22 95 % -- 05/08/23 0100 138/81 -- -- 78 22 96 % -- 05/08/23 0045 127/84 -- -- 79 24 94 % -- 05/08/23 0030 130/80 -- -- 79 18 94 % -- 05/08/23 0015 131/78 -- -- 77 19 95 % -- 05/08/23 0000 130/79 36.8 ??C (98.2 ??F) Axillary 79 27 96 % -- 05/07/23 2345 (!) 134/121 -- -- 78 19 95 % -- 05/07/23 2330 138/83 -- -- 77 24 95 % -- 05/07/23 2315 130/79 -- -- 80 24 96 % -- 05/07/23 2300 (!) 172/102 -- -- 76 23 95 % -- Patient confused, restless, agitated GEN- Awakens to tactile stimulation, eyes open spontaneously, follows simple commands CN- PERRL, no clear facial asymmetry MOTOR- in restraints moves all 4 extremities spontaneously SENSATION -deferred CEREBELLUM -deferred CV/PULM - RRR, no murmurs; LCBTA Labs: I/O 24 Hours: 05/06 0701 - 05/07 0700 In: 3200.3 [I.V.:1969.6] Out: 4745 [Urine:4745] I/O this shift: In: 1922.7 [I.V.:1037.1; NG/GT:885.7] Out: 2770 [Urine:2770] Recent Labs 05/08/23 0136 05/07/23 0110 05/06/23 0030 05/05/23 0035 05/04/23 0200 WBC 6.4 6.4 6.8 7.3 8.2 HGB 10.3* 9.2* 9.6* 9.5* 8.6* HCT 31.3* 28.3* 26.3* 26.1* 26.3* PLATELET 258 298 263 255 238 NEUTROABS 4.21 4.04 4.81 5.09 5.78 Recent Labs 05/08/23 0136 05/07/23 0110 05/06/23 1444 05/06/23 0030 05/05/23 0525 05/05/23 0035 05/04/23 0200 NA 141 142 -- 134* < > 131* 135 K 3.8 4.0 4.1 3.3* < > 3.2* 3.6 CL 108* 109* -- 100 -- 100 103 CO2 23 22 -- 18* -- 17* 18* BUN 21* 33* -- 51* -- 63* 71* CREATININE 1.43 1.85* -- 2.16* -- 2.56* 2.94* GLUCOSE 137 108 -- 279* -- 253* 144 < > = values in this interval not displayed. Recent Labs 05/08/23 0136 05/07/23 0110 05/06/23 0030 CALCIUM 10.0 9.8 8.6 MAGNESIUM 0.72 0.84 0.85 PHOS 3.1 4.2 4.5 No results for input(s): AST, ALT, ALKPHOS, BILITOT, BILIDIR, LDH in the last 168 hours. No results for input(s): TROPONINT, CK in the last 168 hours. Recent Labs 05/03/23 1228 PHART 7.36 [id number] 29* PO2ART 62* [id number] 16.2* No results for input(s): INR in the last 72 hours. Lipid Panel Lab Results Component Value Date CHLPL 220 04/19/2023 HDL 86 04/19/2023 CHOLHDL 2.6 04/19/2023 TRIG 194 05/07/2023 LDLDIRECT 129 04/19/2023 Recent Labs 04/19/23 0035 HA1C 6.0* Diagnostic Tests and Imaging: Results for orders placed or performed during the hospital encounter of 04/18/23 MRI Brain wwo Contrast (Generic) (Exam End: 04/20/2023 9:39 PM) Impression 1. Recent infarct involving the posterior medial LEFT parietal lobe. 2. Unchanged size of RIGHT cerebellar intraparenchymal hemorrhage with unchanged volume of intraventricular blood products. 3. Vasogenic edema tracks along the superior right cerebellar peduncle into the right midbrain. 4. Unchanged ventricular caliber with some hyperintense signal along the ventricular surface suggesting some transependymal CSF flow. 5. No abnormal brain parenchymal or meningeal enhancement to suggest underlying malignancy. 6. Small foci of susceptibility related signal loss separate from the areas of hemorrhage, which could represent sequela of small vessel disease versus cerebral amyloid angiopathy. Thank you for letting us participate in the care of this patient. If you are a health care provider and have any questions regarding this report, please contact the number below. For patients who have questions please contact the health manager managed care that requested your imaging first. Electronically signed by: Brien Durán MD, [facility] ([phone]), at 04/20/2023 11:[address] Angiogram [place] [facility] [place] (Exam End: 04/18/2023 9:45 AM) Impression No evidence of aneurysm or vascular malformation. Thank you for letting us participate in the care of this patient. If you are a health care provider and have any questions regarding this report, please contact the number below. For patients who have questions please contact the health manager managed care that requested your imaging first. Head wo Contrast (Generic) (Exam End: 04/18/2023 9:45 AM) Impression 1. Expected postoperative changes following placement of a right frontal extraventricular drain with stable hydrocephalus. 2. No additional significant change. Thank you for letting us participate in the care of this patient. If you are a health care provider and have any questions regarding this report, please contact the number below. For patients who have questions please contact the health manager managed care that requested your imaging first. Abdomen 1 view (Generic) (Exam End: 04/18/2023 12:17 PM) Impression 1. Weighted enteric catheter projects over the expected position of the stomach. 2. Left basilar nonspecific opacity may represent atelectasis, infectious or inflammatory etiology in the correct clinical context. I have personally reviewed the image(s) and the resident's interpretation and agree with the findings, Cooper Jones MD at 04/18/2023 2:03 PM Thank you for letting us participate in the care of this patient. If you are a health care provider and have any questions regarding this report, please contact the number below. For patients who have questions please contact the health manager managed care that requested your imaging first. Electronically signed by: Cooper Jones MD, [facility] ([phone]), at 04/18/2023 2:03 PM XR Chest One View (Exam End: 04/18/2023 12:17 PM) Impression Endotracheal tube is 1.1 cm above the nichole. Recommend retraction 2-3 cm for optimal positioning. Thank you for letting us participate in the care of this patient. If you are a health care provider and have any questions regarding this report, please contact the number below. For patients who have questions please contact the health manager managed care that requested your imaging first. Electronically signed by: Brien Avery MD, [facility] ([phone]), at 04/18/2023 3:[address] Head wo Contrast (Generic) (Exam End: 04/19/2023 1:05 AM) Impression 1. Interval decompression of the right lateral ventricle with persistent enlargement of the left lateral ventricle and resulting left to right subfalcine shift. 2. Stable size of the right cerebellar hemisphere parenchymal hemorrhage in the region of the dentate nucleus. I Narciso Gonzales MD discussed the results with neuro critical care, pager [phone] NILDA JERONIMO on 04/19/2023 1:42 AM and verified that the results were understood. Thank you for letting us participate in the care of this patient. If you are a health care provider and have any questions regarding this report, please contact the number below. For patients who have questions please contact the health manager managed care that requested your imaging first. Electronically signed by: Narciso Gonzales MD, [facility] ([phone]), at 04/19/2023 1:[address] Head wo Contrast (Generic) (Exam End: 04/19/2023 4:26 PM) Impression Further decreased caliber of the supratentorial ventricles. Similar volume of right cerebellar and intraventricular hemorrhage. Persistent expansion of the third ventricle, cerebral aqueduct and fourth ventricle. Thank you for letting us participate in the care of this patient. If you are a health care provider and have any questions regarding this report, please contact the number below. For patients who have questions please contact the health manager managed care that requested your imaging first. Chest One View (Exam End: 04/20/2023 4:32 AM) Impression 1. Endotracheal tube tip projects over the lower trachea 2 cm from the nichole. 2. Nonspecific left retrocardiac opacity with truncation of the bronchial air column suspicious for mucous plugging versus aspiration. 3. Left lower lobe opacity either lobar atelectasis versus pneumonia. 4. Nonspecific peribronchial thickening/cuffing may represent interstitial edema versus infectious/inflammatory bronchiolitis. Preliminary report signed by: Steve Paredes MD at 04/20/2023 4:52 AM I have personally reviewed the image(s) and the resident's interpretation and agree with the findings, Brien Durán MD at 04/20/2023 5:02 AM Thank you for letting us participate in the care of this patient. If you are a health care provider and have any questions regarding this report, please contact the number below. For patients who have questions please contact the health manager managed care that requested your imaging first. Electronically signed by: Brien Durán MD, [facility] ([phone]), at 04/20/2023 5:[address] Head wo Contrast (Generic) (Exam End: 04/20/2023 4:18 AM) Impression 1. Similar quantity of moderate volume intraventricular blood products allowing for redistribution. 2. Unchanged size of right cerebellar intraparenchymal hemorrhage in the region of the dentate nucleus. 3. Unchanged caliber of the ventricular system. 4. Infarct-related change involving the posterior medial left parietal lobe. Suggest brain MRI for further characterization. Thank you for letting us participate in the care of this patient. If you are a health care provider and have any questions regarding this report, please contact the number below. For patients who have questions please contact the health manager managed care that requested your imaging first. Electronically signed by: Brien Durán MD, [facility] ([phone]), at 04/20/2023 4:38 AM XR Chest for Verifying Vascular Access PICC Placement At Bedside (Exam End: 04/20/2023 2:12 PM) Impression 1. Right upper extremity PICC in satisfactory position. 2. Persistent left lower lobe opacity silhouetting the diaphragm suggestive atelectasis and/or pleural effusion. Left lower lobe pneumonia could also have this appearance I have personally reviewed the image(s) and the resident's interpretation and agree with the findings, Brien Avery MD at 04/20/2023 2:55 PM Thank you for letting us participate in the care of this patient. If you are a health care provider and have any questions regarding this report, please contact the number below. For patients who have questions please contact the health manager managed care that requested your imaging first. Electronically signed by: Brien Avery MD, [facility] ([phone]), at 04/20/2023 2:55 PM XR Chest One View (Exam End: 04/21/2023 7:08 AM) Impression Retrocardiac left lower lobe collapse versus consolidation. Right upper extremity PICC line catheter tip positioned at the right atrium. Thank you for letting us participate in the care of this patient. If you are a health care provider and have any questions regarding this report, please contact the number below. For patients who have questions please contact the health manager managed care that requested your imaging first. Electronically signed by: Amanda Smith MD, [facility] ([phone]), at 04/21/2023 8:[address] Angiogram Carot[place] & [place] (Exam End: 04/21/2023 5:49 PM) Impression 1. Unexpected finding. Partially visualized descending thoracic aorta demonstrates crescentic hypoattenuation with luminal narrowing concerning for dissection versus significant mural thrombus. CTA chest/abdomen recommended for further evaluation. Discussed with Filiberto Epstein NP by Dr. Michelle Munoz over the telephone at 04/22/2023 5:12 PM and verified that the results were understood. 2. Recommend retracting endotracheal tube by inch of the terminates near the origin of the right mainstem bronchus. 3. Possible mild irregularity of the left P2 VALUE STREAM COACH segment. Mild irregularity of the intradural vertebral arteries. No central branch occlusion. 4. Similar volume of intracranial hemorrhage. Unchanged caliber of the ventricles. Thank you for letting us participate in the care of this patient. If you are a health care provider and have any questions regarding this report, please contact the number below. For patients who have questions please contact the health manager managed care that requested your imaging first. Electronically signed by: Michelle Munoz, [facility] ([phone]), at 04/22/2023 5:[address] Angiogram Chest Abdomen w Contrast (Exam End: 04/22/2023 6:40 PM) Impression 1. 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 2. No active extravasation, however , there is some apparent high density within a trace left pleural fluid collection possibly hemothorax and raises concern for early aneurysm leak/rupture into the pleural space. 3. Fusiform dilatation of the descending thoracic aorta measuring up to 4.7-4.8 cm. In maximal diameter I Hali Llamas discussed the results (Impression #1) with Vignesh Epstein APRN on 04/22/2023 6:45 PM and verified that the results were understood. I have personally reviewed the image(s) and the resident's interpretation and agree with the findings, Royal Michael MD at 04/22/2023 7:55 PM Thank you for letting us participate in the care of this patient. If you are a health care provider and have any questions regarding this report, please contact the number below. For patients who have questions please contact the health manager managed care that requested your imaging first. Electronically signed by: Royal Michael MD, [facility] ([phone]), at 04/22/2023 7:55 PM XR Abdomen 1 view (Generic) (Exam End: 04/23/2023 5:15 PM) Impression 1. Enteric tube tip terminates in the distal stomach. Thank you for letting us participate in the care of this patient. If you are a health care provider and have any questions regarding this report, please contact the number below. For patients who have questions please contact the health manager managed care that requested your imaging first. Electronically signed by: Royal Michael MD, [facility] ([phone]), at 04/23/2023 5:[address] Head wo Contrast (Generic) (Exam End: 04/26/2023 10:25 AM) Impression Decreasing volume and density of intraventricular hemorrhage. Decreasing size of ventricular system. Additional findings noted above without acute interval changes. Thank you for letting us participate in the care of this patient. If you are a health care provider and have any questions regarding this report, please contact the number below. For patients who have questions please contact the health manager managed care that requested your imaging first. Head wo Contrast (Generic) (Exam End: 04/27/2023 3:41 PM) Impression Slightly increased intraventricular hemorrhage. No additional significant change. Thank you for letting us participate in the care of this patient. If you are a health care provider and have any questions regarding this report, please contact the number below. For patients who have questions please contact the health manager managed care that requested your imaging first. Chest One View (Exam End: 04/27/2023 1:45 PM) Impression Endotracheal tube tip location difficult to visualize, suspected 1.5 cm proximal to nichole. Left lower lobe atelectasis. Small left pleural effusion. I have personally reviewed the image(s) and the resident's interpretation and agree with the findings, Amanda Smith MD at 04/27/2023 4:40 PM Thank you for letting us participate in the care of this patient. If you are a health care provider and have any questions regarding this report, please contact the number below. For patients who have questions please contact the health manager managed care that requested your imaging first. Electronically signed by: Amanda Smith MD, [facility] ([phone]), at 04/27/2023 4:40 PM XR Abdomen 1 view (Generic) (Exam End: 04/29/2023 4:50 PM) Impression Satisfactorily positioned weighted enteric tube. Air-filled distended upper abdominal large bowel. Thank you for letting us participate in the care of this patient. If you are a health care provider and have any questions regarding this report, please contact the number below. For patients who have questions please contact the health manager managed care that requested your imaging first. Electronically signed by: Amanda Smith MD, [facility] ([phone]), at 04/29/2023 4:55 PM XR Chest One View (Exam End: 04/30/2023 6:21 AM) Impression * Right arm PICC terminates in the right atrium. Consider slight retraction. * Apparent widening of the mediastinal silhouette may be artifactual/projectional, however, possibility of a mediastinal hematoma should be considered. Repeat radiograph with better inspiration is recommended. * Mild central pulmonary vascular congestion. * Hazy retrocardiac opacity: Atelectasis versus infiltrate. * Trace left pleural effusion. Thank you for letting us participate in the care of this patient. If you are a health care provider and have any questions regarding this report, please contact the number below. For patients who have questions please contact the health manager managed care that requested your imaging first. Electronically signed by: Skylar Harrington MD, [facility] ([phone]), at 04/30/2023 6:[address] Head wo Contrast (Generic) (Exam End: 05/01/2023 4:04 AM) Impression Mild interval increase in size of lateral and third ventricles. Expected evolution of intracerebral and intraventricular hemorrhage. Thank you for letting us participate in the care of this patient. If you are a health care provider and have any questions regarding this report, please contact the number below. For patients who have questions please contact the health manager managed care that requested your imaging first. Electronically signed by: Jadiel Jeff MD, [facility] ([phone]), at 05/01/2023 8:[address] Head wo Contrast (Generic) (Exam End: 05/02/2023 4:00 AM) Impression No change in ventricular caliber, intraventricular hemorrhage or right cerebellar hemorrhage with moderate surrounding edema. Thank you for letting us participate in the care of this patient. If you are a health care provider and have any questions regarding this report, please contact the number below. For patients who have questions please contact the health manager managed care that requested your imaging first. Electronically signed by: Elissa Thompson MD, [facility] ([phone]), at 05/02/2023 10:59 AM XR Abdomen 1 view (Generic) (Exam End: 05/02/2023 8:00 PM) Impression 1. The colon is distended likely with a combination of solid and liquid stool and air however it does not appear obstructed. 2. Severe degenerative change at the LEFT hip, moderate in the RIGHT. There is degenerative change in the spine. Thank you for letting us participate in the care of this patient. If you are a health care provider and have any questions regarding this report, please contact the number below. For patients who have questions please contact the health manager managed care that requested your imaging first. Electronically signed by: Radha Smith MD, [facility] ([phone]), at 05/03/2023 8:27 AM XR Chest One View (Exam End: 05/02/2023 8:00 PM) Impression 1. Persistent left retrocardiac opacity for which considerations include atelectasis and/or small pleural effusion 2. Right upper extremity PICC terminates in the right atrium. Consider repositioning/replacement. I have personally reviewed the image(s) and the resident's interpretation and agree with the findings, Brien Avery MD at 05/03/2023 9:12 AM Thank you for letting us participate in the care of this patient. If you are a health care provider and have any questions regarding this report, please contact the number below. For patients who have questions please contact the health manager managed care that requested your imaging first. Electronically signed by: Brien Avery MD, [facility] ([phone]), at 05/03/2023 9:12 AM XR Chest One View (Exam End: 05/04/2023 11:20 AM) Impression Persistently low lung volumes. Continued left lower lobe consolidation consistent with atelectasis. Superimposed infection or inflammation is not excluded. I have personally reviewed the image(s) and the resident's interpretation and agree with the findings, Meet Anton MD at 05/04/2023 1:54 PM Thank you for letting us participate in the care of this patient. If you are a health care provider and have any questions regarding this report, please contact the number below. For patients who have questions please contact the health manager managed care that requested your imaging first. Abdomen 1 view (Generic) (Exam End: 05/05/2023 12:20 PM) Impression 1. Stable position of enteric tube, projecting within the gastric lumen. 2. Partially visualized distended, gas-filled colon. Unchanged compared with radiograph 05/02/2023. I have personally reviewed the image(s) and the resident's interpretation and agree with the findings, Radha Smith MD at 05/05/2023 2:19 PM Thank you for letting us participate in the care of this patient. If you are a health care provider and have any questions regarding this report, please contact the number below. For patients who have questions please contact the health manager managed care that requested your imaging first. Electronically signed by: Radha Smith MD, [facility] ([phone]), at 05/05/2023 2:19 PM XR Abdomen 1 view (Generic) (Exam End: 05/06/2023 3:38 AM) Impression Strict tube in stomach Thank you for letting us participate in the care of this patient. If you are a health care provider and have any questions regarding this report, please contact the number below. For patients who have questions please contact the health manager managed care that requested your imaging first. Electronically signed by: Lisset Brooks MD, [facility] ([phone]), at 05/06/2023 10:16 AM Assessment and Plan: 67 y.o. male without significant PMH transferred for R cerebellar IPH with ANIL s/p EVD placement and removal. Patient was found to have aortic dissection for which vascular surgery was consulted. Further patient has had significant difficulty with agitation, restlessness requiring multiple therapies to remain in range including clonidine, diltiazem, hyddralazine, lisinopril, terazosin for blood pressure control and seroquel 50mg QAM and 100mg QPM for agitation. Would consider adding depakote tohelp with behavioral issues. 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 For stroke risk prevention recommend continuing aspirin. #Neuro: -c/w aspirin -consider addition of depakote for agitation Narciso Wilks, DO Please page Vascular Neurology at #[phone] with any questions. [place] [address] Neurology Attending Attestation I evaluated the patient with the Stroke Team during bedside rounds. I have reviewed the medical records and patient's history, as well as the resident???s history and examination findings and I agreewith the details as written. My neurologic examination confirms the resident???s findings. We formulated the assessment and plan after a detailed discussion, as documented. Gisell Nguyen MD Vascular Neurology * Plan of Care - Yemi Mckenna RN - 05/07/2023 6:58 PM EDT Problem: Bowel Elimination Impaired (Stroke, Hemorrhagic) Goal: Effective Bowel Elimination Outcome: Ongoing (Interventions Implemented as Appropriate) Problem: Cerebral Tissue Perfusion (Stroke, Hemorrhagic) Goal: Optimal Cerebral Tissue Perfusion Outcome: Ongoing (Interventions Implemented as Appropriate) Problem: Cognitive Impairment (Stroke, Hemorrhagic) Goal: Optimal Cognitive Function Outcome: Ongoing (Interventions Implemented as Appropriate) Problem: Communication Impairment (Stroke, Hemorrhagic) Goal: Effective Communication Skills Outcome: Ongoing (Interventions Implemented as Appropriate) Problem: Adjustment to Illness (Stroke, Hemorrhagic) Goal: Optimal Coping Outcome: Ongoing (Interventions Implemented as Appropriate) Problem: Pain (Stroke, Hemorrhagic) Goal: Acceptable Pain Control Outcome: Ongoing (Interventions Implemented as Appropriate) Problem: Respiratory Compromise (Stroke, Hemorrhagic) Goal: Effective Oxygenation and Ventilation Outcome: Ongoing (Interventions Implemented as Appropriate) * Plan of Care - Marta Hester RN - 05/07/2023 3:51 AM EDT OUTCOME EVALUATION NOTE: OUTCOME SUMMARY: Patient placed on bipap and restraints removed. Slept well overnight. PLAN MOVING FORWARD: Wean b/p medications as heart rate and b/p tolerate. 24 hour urine collection in progress. TF at 10mL per hour via NG tube. Heart rate <80, Systolic <120 CPG GOAL OUTCOME EVALUATION: Problem: Adjustment to Illness (Stroke, Hemorrhagic) Goal: Optimal Coping Outcome: Ongoing (Interventions Implemented as Appropriate) Problem: Bowel Elimination Impaired (Stroke, Hemorrhagic) Goal: Effective Bowel Elimination Outcome: Ongoing (Interventions Implemented as Appropriate) Problem: Cerebral Tissue Perfusion (Stroke, Hemorrhagic) Goal: Optimal Cerebral Tissue Perfusion Outcome: Ongoing (Interventions Implemented as Appropriate) Problem: Cognitive Impairment (Stroke, Hemorrhagic) Goal: Optimal Cognitive Function Outcome: Ongoing (Interventions Implemented as Appropriate) Problem: Communication Impairment (Stroke, Hemorrhagic) Goal: Effective Communication Skills Outcome: Ongoing (Interventions Implemented as Appropriate) Problem: Functional Ability Impaired (Stroke, Hemorrhagic) Goal: Optimal Functional Ability Outcome: Ongoing (Interventions Implemented as Appropriate) Problem: Pain (Stroke, Hemorrhagic) Goal: Acceptable Pain Control Outcome: Ongoing (Interventions Implemented as Appropriate) Problem: Respiratory Compromise (Stroke, Hemorrhagic) Goal: Effective Oxygenation and Ventilation Outcome: Ongoing (Interventions Implemented as Appropriate) Problem: Sensorimotor Impairment (Stroke, Hemorrhagic) Goal: Improved Sensorimotor Function Outcome: Ongoing (Interventions Implemented as Appropriate) Problem: Swallowing Impairment (Stroke, Hemorrhagic) Goal: Oral Intake without Aspiration Outcome: Ongoing (Interventions Implemented as Appropriate) Problem: Urinary Elimination Impaired (Stroke, Hemorrhagic) Goal: Effective Urinary Elimination Outcome: Ongoing (Interventions Implemented as Appropriate) Problem: Fall Injury Risk Goal: Absence of Fall and Fall-Related Injury Outcome: Ongoing (Interventions Implemented as Appropriate) Problem: Adult Inpatient Plan of Care Goal: Plan of Care Review Outcome: Ongoing (Interventions Implemented as Appropriate) Goal: Patient-Specific Goal (Individualized) Outcome: Ongoing (Interventions Implemented as Appropriate) Goal: Absence of Hospital-Acquired Illness or Injury Outcome: Ongoing (Interventions Implemented as Appropriate) Goal: Optimal Comfort and Wellbeing Outcome: Ongoing (Interventions Implemented as Appropriate) Goal: Readiness for Transition of Care Outcome: Ongoing (Interventions Implemented as Appropriate) * Plan of Care - Shani Parker RN - 05/06/2023 4:30 AM EDT OUTCOME EVALUATION NOTE: OUTCOME SUMMARY: Patient neuro unchanged throughout shift, see flowsheet for full assessments. Patient requiring PRNs for blood pressure management as well as agitation throughout shift, see EMAR. Patients DHT clogged and unable to use, taken out and NGT placed to right nare. Xray confirmed and ok to use from provider. [place] with adequate urine output and patient has small BM this shift. Catheter care and bath completed, Q2 turns and mouth care provided. PLAN MOVING FORWARD: Q4 neuro's Q1 VS SBP 90-120 HR <80 Q4 BLE neurovasc assessment ? Restart TF CPG GOAL OUTCOME EVALUATION: Problem: Restraint, Nonbehavioral (Nonviolent) Goal: Discontinuation Criteria Achieved Outcome: Ongoing (Interventions Implemented as Appropriate) Problem: Adjustment to Illness (Stroke, Hemorrhagic) Goal: Optimal Coping Outcome: Ongoing (Interventions Implemented as Appropriate) Problem: Bowel Elimination Impaired (Stroke, Hemorrhagic) Goal: Effective Bowel Elimination Outcome: Ongoing (Interventions Implemented as Appropriate) Problem: Cerebral Tissue Perfusion (Stroke, Hemorrhagic) Goal: Optimal Cerebral Tissue Perfusion Outcome: Ongoing (Interventions Implemented as Appropriate) Problem: Cognitive Impairment (Stroke, Hemorrhagic) Goal: Optimal Cognitive Function Outcome: Ongoing (Interventions Implemented as Appropriate) Problem: Communication Impairment (Stroke, Hemorrhagic) Goal: Effective Communication Skills Outcome: Ongoing (Interventions Implemented as Appropriate) Problem: Functional Ability Impaired (Stroke, Hemorrhagic) Goal: Optimal Functional Ability Outcome: Ongoing (Interventions Implemented as Appropriate) Problem: Pain (Stroke, Hemorrhagic) Goal: Acceptable Pain Control Outcome: Ongoing (Interventions Implemented as Appropriate) Problem: Respiratory Compromise (Stroke, Hemorrhagic) Goal: Effective Oxygenation and Ventilation Outcome: Ongoing (Interventions Implemented as Appropriate) Problem: Sensorimotor Impairment (Stroke, Hemorrhagic) Goal: Improved Sensorimotor Function Outcome: Ongoing (Interventions Implemented as Appropriate) Problem: Swallowing Impairment (Stroke, Hemorrhagic) Goal: Oral Intake without Aspiration Outcome: Ongoing (Interventions Implemented as Appropriate) Problem: Urinary Elimination Impaired (Stroke, Hemorrhagic) Goal: Effective Urinary Elimination Outcome: Ongoing (Interventions Implemented as Appropriate) Problem: Fall Injury Risk Goal: Absence of Fall and Fall-Related Injury Outcome: Ongoing (Interventions Implemented as Appropriate) Problem: Adult Inpatient Plan of Care Goal: Plan of Care Review Outcome: Ongoing (Interventions Implemented as Appropriate) Goal: Patient-Specific Goal (Individualized) Outcome: Ongoing (Interventions Implemented as Appropriate) Goal: Absence of Hospital-Acquired Illness or Injury Outcome: Ongoing (Interventions Implemented as Appropriate) Goal: Optimal Comfort and Wellbeing Outcome: Ongoing (Interventions Implemented as Appropriate) Goal: Readiness for Transition of Care Outcome: Ongoing (Interventions Implemented as Appropriate) * Plan of Care - Sanjay Arvizu RN - 05/05/2023 6:27 PM EDT OUTCOME EVALUATION NOTE: OUTCOME SUMMARY: Pt neuro unchanged during shift. See flowsheets. Pt extubated at ~1130 to BiPAP, now currently on NC 2L, BiPAP ordered for night per MD. Pt NSR during shift, BP requiring interventions during shift. Vasotec given x2, labetalol given x2, cleviprex restarted, and nitro gtt continued. Dex gtt continued as well. DHT remains in place, bridled. Pt given lasix x1, pt has had AUOP in [place]. Catheter careprovided, CHG bath given. Pt had 2 large BM during shift. Family at bedside during shift. Pt remains restless, swinging towards nurses, being aggressive. Haldol given x1, seroquel given x1. PLAN MOVING FORWARD: q4 Neuro q1 VS SBP 90-120 BiPAP at night q2 I+Os INDIVIDUALIZED FALL PREVENTION INTERVENTIONS: Patient-specific fall risk factors per assessment: [current deficits]: icu environment, generalizedweakness, confusion, lines/tubing Assistance [level of assistance required for transfers and ambulation]: 2-3x assist Supervision [direct monitoring required during toileting and ADLs]: hands-on Surveillance [continuous indirect monitoring]: icu monitoring, purposeful hourly rounding CARE PLAN GOAL OUTCOME EVALUATION: Problem: Restraint, Nonbehavioral (Nonviolent) Goal: Discontinuation Criteria Achieved Outcome: Ongoing (Interventions Implemented as Appropriate) Problem: Adjustment to Illness (Stroke, Hemorrhagic) Goal: Optimal Coping Outcome: Ongoing (Interventions Implemented as Appropriate) Problem: Bowel Elimination Impaired (Stroke, Hemorrhagic) Goal: Effective Bowel Elimination Outcome: Ongoing (Interventions Implemented as Appropriate) Problem: Cerebral Tissue Perfusion (Stroke, Hemorrhagic) Goal: Optimal Cerebral Tissue Perfusion Outcome: Ongoing (Interventions Implemented as Appropriate) Problem: Cognitive Impairment (Stroke, Hemorrhagic) Goal: Optimal Cognitive Function Outcome: Ongoing (Interventions Implemented as Appropriate) Problem: Communication Impairment (Stroke, Hemorrhagic) Goal: Effective Communication Skills Outcome: Ongoing (Interventions Implemented as Appropriate) Problem: Functional Ability Impaired (Stroke, Hemorrhagic) Goal: Optimal Functional Ability Outcome: Ongoing (Interventions Implemented as Appropriate) Problem: Pain (Stroke, Hemorrhagic) Goal: Acceptable Pain Control Outcome: Ongoing (Interventions Implemented as Appropriate) Problem: Respiratory Compromise (Stroke, Hemorrhagic) Goal: Effective Oxygenation and Ventilation Outcome: Ongoing (Interventions Implemented as Appropriate) Problem: Sensorimotor Impairment (Stroke, Hemorrhagic) Goal: Improved Sensorimotor Function Outcome: Ongoing (Interventions Implemented as Appropriate) Problem: Swallowing Impairment (Stroke, Hemorrhagic) Goal: Oral Intake without Aspiration Outcome: Ongoing (Interventions Implemented as Appropriate) Problem: Urinary Elimination Impaired (Stroke, Hemorrhagic) Goal: Effective Urinary Elimination Outcome: Ongoing (Interventions Implemented as Appropriate) Problem: Fall Injury Risk Goal: Absence of Fall and Fall-Related Injury Outcome: Ongoing (Interventions Implemented as Appropriate) Problem: Adult Inpatient Plan of Care Goal: Plan of Care Review Outcome: Ongoing (Interventions Implemented as Appropriate) Goal: Patient-Specific Goal (Individualized) Outcome: Ongoing (Interventions Implemented as Appropriate) Goal: Absence of Hospital-Acquired Illness or Injury Outcome: Ongoing (Interventions Implemented as Appropriate) Goal: Optimal Comfort and Wellbeing Outcome: Ongoing (Interventions Implemented as Appropriate) Goal: Readiness for Transition of Care Outcome: Ongoing (Interventions Implemented as Appropriate) * Care Management - Angelia Thomas MSW - 05/05/2023 4:00 PM EDT HOSPITAL MEDICINE DIRECTOR met with pt's Tete to discuss guardianship given pt's unstable status in ICU and lack of POA documents. Tete interested in pursuing guardianship; petition started. HOSPITAL MEDICINE DIRECTOR to complete petition Monday with Tete. [facility] Mercado [facility] Pager [phone] 05/05/23 4:00 PM * Consult Note - Linnea Best RN - 05/05/2023 9:44 AM EDT Images from the original note were not included. PICC Dressing Change [ ] 24 hour [ X] Weekly [ ] PRN PICC dressing change completed as per [facility] protocol. Mid arm circumference: [ 41 ] cm at [ 7.5 ] cm above the insertion site. Mid arm circumference: [ 39.5 ] cm at [ 2 ] cm above the insertion site. External catheter measurement: [ 1 ] cm. Internal catheter measurement (per insertion note): [49 ] cm. Dressing type: [ X ] Transparent with CHG [ ] Transparent with biopatch [ ] Other Site condition: [ ] Site is without redness, drainage, edema and pain/tenderness. [ X ] Other: Slight redness at insertion site. No drainage, edema, pain. Arm Circumference increased 2.5 cm since last measurement, recommending duplex study to r/o DVT, ZEESHAN Romero alerted. Procedure was tolerated: [X ] Well [ ] Other * Consult Note - Floyd Renner MD - 05/05/2023 7:23 AM EDT Images from the original note were not included. [facility] [place] [address] [id number] INPATIENT CARDIOLOGY CONSULT FOLLOW-UP NOTE Hospital Day 17 days Reason for Consult: Impulse control ID: Myla 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 male who is here for ICH, incidentally found to have type B dissection on head and neck CTA. Goal SBP <120, goal HR <80 per Vascular Surgery recommendations. Cardiology is consulted for impulse control recommendations. 24-hour Events: -BP labile; current regimen is as below: Clevidipine gtt at max dose Nitro gtt (at 50 currently) Lisinopril 40 mg daily Metoprolol tartrate 50 mg q6h Terazosin 1 mg daily Diltiazem 120 mg q6h -HR 60s-70s -BP 110s-130s systolic Subjective: -Intubated, sedated Out-Patient Medications: No medications prior to admission. In-Patient Medications: aspirin 81 mg Per NG tube Daily QUEtiapine 12.5 mg Per NG tube Nightly senna-docusate 2 tablet Per NG tube BID dilTIAZem 120 mg Per NG tube Q6H YUSUF simethicone 40 mg Oral 4 Times Daily terazosin 1 mg Per NG tube Nightly metoproloL tartrate 50 mg Oral Q6H YUSUF lisinopriL 40 mg Per NG tube Daily protein powder 1 Scoop Per NG tube TID piperacillin-tazobactam 3.375 g Intravenous Q8H ergocalciferoL (vitamin D2) 50,000 Units Per NG tube Weekly ipratropium-albuteroL 3 mL Nebulization Q4H chlorhexidine 15 mL Oral BID famotidine 20 mg Per NG tube BID sodium chloride 4 mL Nebulization Q4H heparin (porcine) 5,000 Units Subcutaneous Q8H YUSUF lidocaine 1 patch Transdermal Q24H camphor-methyl salicyl-menthoL Topical (Top) BID tube feeding diet Stopped (05/05/23 0330) clevidipine 16 mg/hr (05/05/23 0611) dexmedeTOMIDine 1.7 mcg/kg/hr (05/05/23 0600) nitroGLYcerin 200 mcg/min (05/05/23 0600) propofoL Stopped (05/04/23 0556) Review of Systems: 11 point ROS is either negative or per HPI Physical Exam: Last value Range last 8 hrs Temperature Temp: 37.1 ??C (98.8 ??F) Temp: [37 ??C (98.6 ??F)-37.3 ??C (99.1 ??F)] Heart Rate Heart Rate: 62 Heart Rate: [62-83] Blood Pressure BP: 113/62 BP: (110-141)/(61-95) Respiratory Rate Resp: 23 Resp: [16-25] SpO2 SpO2: 94 % SpO2: [92 %-98 %] Intake/Output Summary (Last 24 hours) at 05/05/2023 0723 Last data filed at 05/05/2023 0600 Gross per 24 hour Intake 4470.38 ml Output 3250 ml Net 1220.38 ml Wt & BMI By Encounter Date Flowsheet Row Admission (Current) from 04/18/2023 in Neuro Critical Care Unit Level 3 Wing C at [facility] Weight 125.4 kg (276 lb 7.3 oz) 1 05/03/2023 0600 Ill appearing, intubated, Dobbhoff tube in place Skin: warm and dry. HEENT: benign Neck: Carotid upstrokes and amplitudes normal. No JVD. Chest: Coarse Cor: Normal S1 and S2. No murmurs, gallops, rubs, thrills, lifts, heaves. Abdomen: distended, hypoactive bowel sounds Extremities: 2+ bilateral edema. Warm bilaterally. 2+ pedal pulses on right, trace pedal pulse on left observed--dopplerable per nursing this morning. Neuro: sedated, responsive to pain CTA Chest, abdomen, pelvis 04/22/23: IMPRESSION 1. 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 2. No active extravasation, however , there is some apparent high density within a trace left pleural fluid collection possibly hemothorax and raises concern for early aneurysm leak/rupture into the pleural space. 3. Fusiform dilatation of the descending thoracic aorta measuring up to 4.7-4.8 cm. In maximal diameter IMPRESSION: 1. Type B aortic dissection 2. Hypertension and tachycardia--requiring multiple agents for control 3. Thoracic aortic dilation. Otherwise structurally normal heart. 4. Longstanding hypertension given LVH seen on echo TTE 04/19/2023: Interpretation Summary -There is severe concentric left ventricular hypertrophy. Left ventricular systolic function is normal. The left ventricular ejection fraction is 70% by Hester's biplane. There are no segmental wall motion abnormalities. -The right ventricle is probably normal in size. Right ventricular function is probably normal. -No significant valve disease. -The aortic root is dilated. The diameter at the level of the sinuses of Valsalva is 4.2 cm. The ascending aorta is dilated. The maximum diameter of the proximal ascending aorta is 4.5 cm. -No comparison study is available. Recent Labs 05/05/23 0035 05/04/23 0200 05/03/23 0106 WBC 7.3 8.2 9.9* HGB 9.5* 8.6* 9.2* HCT 26.1* 26.3* 27.4* PLATELET 255 238 277 Recent Labs 05/05/23 0525 05/05/23 0035 05/04/23 0200 05/03/23 0106 NA 130* 131* 135 135 K 3.3* 3.2* 3.6 4.4 CL -- 100 103 105 CO2 -- 17* 18* 17* BUN -- 63* 71* 67* CREATININE -- 2.56* 2.94* 2.64* No results for input(s): AST, ALT, ALKPHOS, BILITOT, BILIDIR in the last 168 hours. Recent Labs 05/05/23 0035 05/04/23 0200 05/03/23 0106 CALCIUM 8.2* 8.4* 8.7 MAGNESIUM 0.93 1.01 1.06 PHOS 4.1 4.8* 4.2 No results for input(s): INR, PT, PTT in the last 168 hours. Recent Labs 04/28/23 1811 CK 74 No results found for: PROBNP Assessment/Recommendations: Myla 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 male who is here for ICH, incidentally found to have type B dissection on head and neck CTA. Goal SBP <120, goal HR <80 per Vascular Surgery recommendations. Cardiology is consulted for impulse control recommendations. He is currently on two dihydropiridine CCB and clevidipine is apparently on shortage in the hospital. Will plan to taper clevidipine using IV hydralazine pushes and labetalol PRN. In the meantime, will switch metoprolol to carvedilol and continue to follow. #Type B aortic dissection #HTN #Thoracic aortic dilation -Wean clevidipine gtt, utilizing IV hydralazine and/or labetalol PRN -Metoprolol tartrate 50 mg q6h > Coreg 25 mg BID -Continue lisinopril 40 mg daily -Continue diltiazem 120 mg q6h -Continue terazosin 1 mg daily -Continue nitro gtt, titrate PRN Case discussed with Shawn Joshi MD. We will continue to follow. Floyd Renner MD Branding Machine Operator PGY4 * Plan of Care - Shani Parker RN - 05/05/2023 4:00 AM EDT OUTCOME EVALUATION NOTE: OUTCOME SUMMARY: Patient neuro unchanged throughout shift, see flowsheet for full assessments. Patient asleep and calm at start of shift, pt had a BM and needed to be repositioned and patient became agitated and uncooperative. Patients blood pressure also increased at this time and required increasing nitro gtt and utilizing PRNs. See EMAR for drip changes and PRNs given. TF held at 0400, patient making good urine output, 1 BM this shift. Catheter care and CHG bath completed, patient repositioned and mouth careprovided Q2 hours. PLAN MOVING FORWARD: Q4 neuros Q1 VS SBP goal 90-120 HR <80 Q4 BLE Neurovasc assessment Plan to extubate if patient appropriate CPG GOAL OUTCOME EVALUATION: Problem: Restraint, Nonbehavioral (Nonviolent) Goal: Discontinuation Criteria Achieved Outcome: Ongoing (Interventions Implemented as Appropriate) Problem: Adjustment to Illness (Stroke, Hemorrhagic) Goal: Optimal Coping Outcome: Ongoing (Interventions Implemented as Appropriate) Problem: Bowel Elimination Impaired (Stroke, Hemorrhagic) Goal: Effective Bowel Elimination Outcome: Ongoing (Interventions Implemented as Appropriate) Problem: Cerebral Tissue Perfusion (Stroke, Hemorrhagic) Goal: Optimal Cerebral Tissue Perfusion Outcome: Ongoing (Interventions Implemented as Appropriate) Problem: Cognitive Impairment (Stroke, Hemorrhagic) Goal: Optimal Cognitive Function Outcome: Ongoing (Interventions Implemented as Appropriate) Problem: Communication Impairment (Stroke, Hemorrhagic) Goal: Effective Communication Skills Outcome: Ongoing (Interventions Implemented as Appropriate) Problem: Functional Ability Impaired (Stroke, Hemorrhagic) Goal: Optimal Functional Ability Outcome: Ongoing (Interventions Implemented as Appropriate) * Plan of Care - Sanjay Arvizu RN - 05/04/2023 5:01 PM EDT OUTCOME EVALUATION NOTE: OUTCOME SUMMARY: Pt neuro unchanged during shift. See flowsheets for full neuro exam. Remains agitated and swinging,reaching for ETT. Dex gtt remains, Fent given x2, seroquel given x1. Pt on PS 8/5 40%. Pt NSR/SB during shift, cleviprex at max dose, restarted nitro and titrated as needed for BP goal. Vasotec givenx2. Neurovasc exams unchanged. TF running at goal of 50ml/hr. Hold TF at 0400. 2 BM during shift. Rebolledo in place, catheter care provided. at bedside most of shift. PLAN MOVING FORWARD: Q4 Neuro Q1VS SBP goal 90-120 HR <80 Q4 BLE neurovasc assessments Hold TF at 0400 INDIVIDUALIZED FALL PREVENTION INTERVENTIONS: Patient-specific fall risk factors per assessment: [current deficits]: ICU environment, lines/tubes, restraints, generalized weakness, Assistance [level of assistance required for transfers and ambulation]: 2-3x assist Supervision [direct monitoring required during toileting and ADLs]: hands-on Surveillance [continuous indirect monitoring]: ICU monitoring, purposeful hourly rounding CARE PLAN GOAL OUTCOME EVALUATION: Problem: Restraint, Nonbehavioral (Nonviolent) Goal: Discontinuation Criteria Achieved Outcome: Ongoing (Interventions Implemented as Appropriate) Problem: Bowel Elimination Impaired (Stroke, Hemorrhagic) Goal: Effective Bowel Elimination Outcome: Ongoing (Interventions Implemented as Appropriate) Problem: Functional Ability Impaired (Stroke, Hemorrhagic) Goal: Optimal Functional Ability Outcome: Ongoing (Interventions Implemented as Appropriate) Problem: Respiratory Compromise (Stroke, Hemorrhagic) Goal: Effective Oxygenation and Ventilation Outcome: Ongoing (Interventions Implemented as Appropriate) Problem: Sensorimotor Impairment (Stroke, Hemorrhagic) Goal: Improved Sensorimotor Function Outcome: Ongoing (Interventions Implemented as Appropriate) Problem: Swallowing Impairment (Stroke, Hemorrhagic) Goal: Oral Intake without Aspiration Outcome: Ongoing (Interventions Implemented as Appropriate) * Care Management - Melchor Frazier RN - 05/04/2023 7:00 AM EDT OFFICE OF CARE MANAGEMENT PROGRESS NOTE LOS: Hospital Day 16 days Chart reviewed, care reviewed with primary team and at interdisciplinary rounds. Patient continues to meet inpatient level of care related to: intubated, sedated, vasoactive medication, and Q 1 hour interventions and remains in the hospital related to provider note: 05/03/2023 67 y.o. male largely without routine medical care and not on any medications, presenting in transfer from OSH for R cerebellar IPH and intraventricular extension. S/p R EVD placement for hydrocephalus. Doing well from neurologic standpoint, MRI done with no evidence of mass lesion. EVD out. No concerns for hydro. Nephrology and Cardiology following for: OVI and Aortic dissection ICU Needs: Q1 hour interventions, ICU specific devices / therapies, mechanically ventilated, vasoactive medications Functional status prior to admission: Independent Home Environment: Others in the home: spouse. Current Living Arrangements: home/apartment/condo. Accessibility Concerns: 0 PATRICIA,. Current Functional Ability: Assistive Person and Equipment DME used at home: (has grab bars available) DME Needed at Discharge: Pending PT / OT Recommendations Last Physical Therapy Recommendation: acute rehabilitation facility, swing bed rehabilitation facility with to be determined Last Occupational Therapy Recommendation: acute rehabilitation facility with to be determined Patient is insured through: Primary Insurance: MEDICARE Payor: MEDICARE / Plan: MEDICARE PART A & B / Product Type: *No Product type* / Secondary Insurance: [employer] [place] Prescription Coverage: Yes Preferred Pharmacy: [id number] - [place], [place] - [address] [place] [id number] Plan for discharge is: Pending Hospital Course and PT/OT Recommendations Agency Referrals & Follow-up Care: Pending Hospital Course and PT/OT Recommendations Transportation: pending needs closer to discharge Barriers to discharge: Discharge planning, ICU Needs Psych: Adjustment to diagnosis/illness, Decision-making, Coping/stress, Grief/loss, Cognitive/perceptual Supports: Caregiver support Cerebellar hemorrhage Aortic dissection Respiratory failure RN/CM following with HOSPITAL MEDICINE DIRECTOR and LTC-RS: Advance Directives: none per spouse Guardianship discussion with HOSPITAL MEDICINE DIRECTOR and application process started - pending. LTC referral sent to -LTC: 05/01/2023 Plan going forward: Service Care Management will continue to follow and assist with discharge planning and coordination of care as indicated. Anticipated Date of Discharge: to be determined Melchor Frazier RN RN/CM - Cellphone: [phone] Pager: [phone] Covering Service RN/CM * Consult Note - Coleman Orosco RN - 05/02/2023 2:27 PM EDT Images from the original note were not included. Certified Wound Care Nurse Note Situation: Asked to see Myla Acosta by nursing for right second finger. Wound found under wrist block for annie. Background: eD-H notes reviewed for history, admitting diagnosis and active problem list. Wound Assessment and Care Provided: Patient seen this morning in room 336-A in bed, reason for visit explained to patient, permission received to assess skin. Anatomical location: Right Index Finger Dressing removed: mepilex border peeled back for assessment Wound: well defined area of non-blanchable erythema on the medial aspect of the proximal metacarpophalangeal joint measures approximately 1 cm x 1 cm Dressing applied: mepilex border placed back down Photos taken: Munir Score: 12 Existing Wounds: Pressure Injury 05/02/23 other (see comments) Stage 1 (Active) Dressing Appearance intact 05/02/23 1426 Pressure Injury Appearance reddened 05/02/23 1426 Area intact 05/02/23 1426 Stage Stage 1 05/02/23 1426 Dressing foam 05/02/23 1426 Wound Image 05/02/23 1426 Nutritional Status Wt Readings from Last 1 Encounters: 05/02/23 126.3 kg (278 lb 7.1 oz) Body mass index is 41.72 kg/m??. Labs Lab Results Component Value Date ALBUMIN 3.1 (L) 04/28/2023 ALBUMIN 3.5 04/23/2023 ALBUMIN 3.9 04/19/2023 HA1C 6.0 (H) 04/19/2023 WBC 8.0 05/02/2023 WBC 9.6 (H) 05/01/2023 WBC 10.8 (H) 04/29/2023 HGB 9.9 (L) 05/02/2023 HGB 10.3 (L) 05/01/2023 HGB 11.0 (L) 04/29/2023 HCT 30.5 (L) 05/02/2023 HCT 31.7 (L) 05/01/2023 HCT 33.7 (L) 04/29/2023 PLATELET 240 05/02/2023 PLATELET 269 05/01/2023 PLATELET 257 04/29/2023 INR 1.1 04/23/2023 INR 1.1 04/19/2023 INR 1.1 04/18/2023 PT 12.7 (H) 04/23/2023 PT 12.2 04/19/2023 PT 12.4 04/18/2023 Current bed: Progressa Assessment: The medial aspect of the right proximal metacarpophalangeal joint is with a well-defined area of non-blanchable erythema that is consistent with a stage 1 pressure injury from the strap of the A-linewrist block. This is considered hospital-acquired. Wound Treatment Recommendations: Keep right index finger injury offloaded and ensure straps from A-line block are not applied too tightly Right Index Finger: Mepilex Border dressing-nursing to change every 3 days and as needed for dressing with 50% or greater strike though drainage. 1. Cleanse wound with dermal wound cleanser and gauze. 2. Apply Mepilex Border dressing Follow hospital standard for pressure injury prevention and skin care. Refer to adult/pediatric pressure injury prevention job aid in the clinical policy library. Wound care will follow. Discussed plan with: RN: Basilio Please contact Coleman Orosco RN on pager [phone] or the wound care team at [phone] or pager [phone] with skin and wound care concerns or questions. * Care Management - Angelia Thomas MSW - 05/02/2023 11:24 AM EDT This HOSPITAL MEDICINE DIRECTOR met with pt's Tete for support. Tete reports that pt has not been in ICU for 2 weeks and that she has not been able to have a conversation with him in that time. Emotional supportprovided. HOSPITAL MEDICINE DIRECTOR to continue to follow for support. LUC[facility] Mercado [facility] Pager [phone] 05/02/23 11:24 AM * Plan of Care - Eulalia Blakely RN - 05/02/2023 7:23 AM EDT Summary of hospitalization: Myla 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 male admitted on 04/18/2023 with PMH h/o etoh use, undoctored p/w R cerebellar hemorrhage with intraventricular extension, acute obstructive hydrocephalus s/p EVD placement, course c/b failed extubation 2/2 aspiration x 2, fluid overload. Patient Active Problem List Diagnosis Date Noted ICH (intracerebral hemorrhage) 04/18/2023 No past medical history on file. No past surgical history on file. Subjective/Objective: nods head no Assessment: see DocFlow for details, otherwise significant highlights include the following: N/pain: GCS 11. Sedated on Dex 1.6 and prop 10. PERRLA. +cough/gag/corneals. SAWYER. Selectively following all commands. Reoriented to time and situation. Pain management to posterior neck and b.l hips with lidoderm and bengay. R frontal EVD clamped at 20. ICP <20. 05/01 0400 CTH completed. P: 8ETT22 @ teeth, PS setting on 01/15/50%, pulling 550VT, PIP <20. LSCDTAL, inline suctioning moderate malodorous secretions, oral moderate clear, + VAP. Pulmonary toileting ongoing C: Continued ICU monitoring. SBP goals <120 and HR <80 given Type B dissection, refractory toprn labetalol and vasotec, NTG gtt maxed at 200. Scheduled dilt given with mild effect, ZE made aware, advise to utilize prop until more affirmative antiHTN modalities ordered. NSR/SB with 1AVB and Bifasciular block. CTM GI: Peptamen AF diet via R nare DHT at 74 at goal 46. Tolerating well. Abd rounded, more tympanic upper quadrants, continued BM regimen. LBM: 05/01 loose, flexiseal without skin breakdown : Rebolledo maintained, strict I/O's, see DocFlow for details. H: daily labs, WNL, creat downtrending Skin/PV: Heels offloaded/sacral mepilex in place. Edema to LE/b/l hands, elevated. q4h vascular check, extremities warm to touch. Endo: N/A ID: Normothermic. Abx/virals: Zosyn/Vanco (VAP) LD: see Avatar. Act: T&R q2h whilst in bed. PT/OT ordered. Social: Spouse Gina calling overnight, asking questions appropriately and understanding of treatment plan. All concerns fielded by ICU team. Plan/Recommendation: CTH completed, pending official result. NSGY preround indicating EVD potention for removal today 05/01 Wean vent and maximize pulm recruitment Blood pressure control Continued interdisciplinary interventions in alterations in N/P/C/GI//Sk/ID CVA/ Medication education Notify team of acute changes Maintain safety Emotional support Infection prevention Problem: Restraint, Nonbehavioral (Nonviolent) Goal: Discontinuation Criteria Achieved Outcome: Ongoing (Interventions Implemented as Appropriate) Problem: Adjustment to Illness (Stroke, Hemorrhagic) Goal: Optimal Coping Outcome: Ongoing (Interventions Implemented as Appropriate) Problem: Bowel Elimination Impaired (Stroke, Hemorrhagic) Goal: Effective Bowel Elimination Outcome: Ongoing (Interventions Implemented as Appropriate) Problem: Cerebral Tissue Perfusion (Stroke, Hemorrhagic) Goal: Optimal Cerebral Tissue Perfusion Outcome: Ongoing (Interventions Implemented as Appropriate) Problem: Cognitive Impairment (Stroke, Hemorrhagic) Goal: Optimal Cognitive Function Outcome: Ongoing (Interventions Implemented as Appropriate) Problem: Communication Impairment (Stroke, Hemorrhagic) Goal: Effective Communication Skills Outcome: Ongoing (Interventions Implemented as Appropriate) Problem: Functional Ability Impaired (Stroke, Hemorrhagic) Goal: Optimal Functional Ability Outcome: Ongoing (Interventions Implemented as Appropriate) Problem: Pain (Stroke, Hemorrhagic) Goal: Acceptable Pain Control Outcome: Ongoing (Interventions Implemented as Appropriate) Problem: Respiratory Compromise (Stroke, Hemorrhagic) Goal: Effective Oxygenation and Ventilation Outcome: Ongoing (Interventions Implemented as Appropriate) Problem: Sensorimotor Impairment (Stroke, Hemorrhagic) Goal: Improved Sensorimotor Function Outcome: Ongoing (Interventions Implemented as Appropriate) Problem: Swallowing Impairment (Stroke, Hemorrhagic) Goal: Oral Intake without Aspiration Outcome: Ongoing (Interventions Implemented as Appropriate) Problem: Urinary Elimination Impaired (Stroke, Hemorrhagic) Goal: Effective Urinary Elimination Outcome: Ongoing (Interventions Implemented as Appropriate) Problem: Fall Injury Risk Goal: Absence of Fall and Fall-Related Injury Outcome: Ongoing (Interventions Implemented as Appropriate) Problem: Adult Inpatient Plan of Care Goal: Plan of Care Review Outcome: Ongoing (Interventions Implemented as Appropriate) Goal: Patient-Specific Goal (Individualized) Outcome: Ongoing (Interventions Implemented as Appropriate) Goal: Absence of Hospital-Acquired Illness or Injury Outcome: Ongoing (Interventions Implemented as Appropriate) Goal: Optimal Comfort and Wellbeing Outcome: Ongoing (Interventions Implemented as Appropriate) Goal: Readiness for Transition of Care Outcome: Ongoing (Interventions Implemented as Appropriate) * Plan of Care - Nayana Pressley RN - 05/01/2023 7:09 PM EDT OUTCOME EVALUATION NOTE: OUTCOME SUMMARY: Remains intubated, transitioned from VC to PS 12/10 60%. Lung sounds are diminished. EVD clamped at09:00. ICPs 13-20. Follows commands intermittently on lower extremities. Withdraws to pain on upperextremities. Pupils equal, round, reactive. Sedated on propofol, fentanyl gtt stopped. Trialed precedex without success. SB to NSR, SBP goal <120, labetalol given x3, vasotec x1, PRN fentanyl 25mcgs x2. Per cardiology, start nitro gtt if unable to maintain SBP goal with PRNs. TF restarted. Flexiin place with 625cc of output, abdomen distended. Rebolledo in place with adequate urine output. 40mg of lasix given with good effect. Wound found on right second finger and knuckle from annie arm block. Wound care consult placed. PLAN MOVING FORWARD: SBP <120 HR <[address] at 04:00 * Consult Note - Narayan Alvarez MD - 05/01/2023 9:09 AM EDT Vascular Surgery Inpatient Consult Note ID: Myla 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 male with AUD, otherwise unknown PMHx who was admitted for right cerebellar IPH and type B dissection extending from subclav to external iliac of unknown chronicity. Interval history/ 24 hour events - NAEON - Low grade temp to 38.6 - On and off 25 mcg Javon - VCV - 1.4L UOP, creatinine down to 3.33 from peak of 3.51 - EVD remains in place - Unable to elicit meaningful exam PMH: No past medical history on file. Patient Active Problem List Diagnosis Code ICH (intracerebral hemorrhage) I61.9 PSH: No past surgical history on file. Review of Systems: As stated above, otherwise ten system review negative Vitals: Last Value Range last 24 hrs Temperature Temp: 36.9 ??C (98.4 ??F) Temp: [36.9 ??C (98.4 ??F)-38.1 ??C (100.6 ??F)] Heart Rate Heart Rate: 58 Heart Rate from SpO2: 58 bpm Heart Rate: [58-76] Heart Rate From SP02 Min: 58 bpm Max: 75 bpm Blood Pressure BP: (S) 108/61 BP: -- BP (Arterial Line): (89-133)/(36-62) Respiratory Rate Resp: 16 Resp: [15-22] SpO2 SpO2: 95 % SpO2: [92 %-98 %] O2 Device O2 Device: Ventilator Weight/BMI Weight: 122.7 kg (270 lb 8.1 oz) Body mass index is 40.53 kg/m??. Intake/Output Summary (Last 24 hours) at 05/01/2023 0909 Last data filed at 05/01/2023 0800 Gross per 24 hour Intake 2799.71 ml Output 2438 ml Net 361.71 ml NPO diet (Give Meds) Physical Exam: GEN: intubated and sedated HEENT: normocephalic, atraumatic CHEST: ventilated CV: regular rate, well perfused ABD: soft, moderately distended, no grimace to palpation EXTR: moving all extremities spontaneously VASC: BL femoral pulses 2+; palpable pulses in all four extremities 2+ NEURO: unable to assess Data Reviewed: Labs: Recent Labs 05/01/23 0040 04/29/23 2315 04/29/23 0105 WBC 9.6* 10.8* 11.4* HGB 10.3* 11.0* 11.4* HCT 31.7* 33.7* 34.1* PLATELET 269 257 229 Recent Labs 05/01/23 0040 04/30/23 0515 04/29/23 2315 04/29/23 1750 04/29/23 1153 NA 138 133* 136 137 135 K 4.1 4.2 4.0 4.1 4.2 CL 106 101 103 104 102 CO2 20* 19* 20* 20* 20* BUN 64* 61* 58* 56* 52* CREATININE 3.33* 3.51* 3.36* 3.19* 2.73* GLUCOSE 140 136 123 126 149 CALCIUM 8.8 8.8 8.7 8.7 8.8 MAGNESIUM 1.07 1.04 1.03 1.03 1.03 PHOS 4.0 5.4* 5.0* 4.8* 4.3 No results for input(s): PROT, ALBUMIN, BILITOT, BILIDIR, ALKPHOS, AST, ALT in the last 72 hours. Recent Labs 04/29/23 1705 LACTATEVEN 0.7 Recent Labs 04/29/23 1705 PHART 7.32* [id number] 38 PO2ART 69* [id number] 19.0* Studies: CTA CAP 04/22/23- IMPRESSION 1. 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 2. No active extravasation, however , there is some apparent high density within a trace left pleural fluid collection possibly hemothorax and raises concern for early aneurysm leak/rupture into the pleural space. 3. Fusiform dilatation of the descending thoracic aorta measuring up to 4.7-4.8 cm. In maximal diameter Renal Duplex 04/28/23 Findings: Right Patent Renal Artery Ostium No Vis Renal Artery Proximal No Vis Renal Artery Mid No Vis Renal Artery Distal No Vis Left PSV (cm/s) EDV (cm/s) RI AT (ms) Patent Renal Artery Ostium No Vis Renal Artery Proximal No Vis Renal Artery Mid No Vis Renal Artery Distal 73 11 0.84 [place] Renal Parenchyma 26 9 0.64 Renal Hilum 41 11 60 Renal Vein Patent Interpretation: Comment: Limited exam due to time of day ( study started at 1600), overlying bowel gas, patient positioning and patient body habitus. Right: Unable to study kidney, renal artery, and renal vein due to limitations listed above. Unableto determine patency. Left: Patent distal main renal artery with no evidence of hemodynamically significant stenosis. Patent main renal vein. Due to limitations listed above unable to study origin and proximal to mid renal artery; cannot exclude higher velocities/ stenosis here. Renal Duplex 05/01/23 Findings: Renal Artery Distal, Right PSV (cm/s): 78 EDV (cm/s): 17 RI: 0.79 [place] Renal Parenchyma, Right PSV (cm/s): 38 EDV (cm/s): 11 RI: 0.71 Renal Hilum, Right AT (ms): 80 Kidney Length, Right Length (cm): 12.2 Renal Vein, Right Patent: Patent Renal Artery Distal, Left PSV (cm/s): 99 EDV (cm/s): 17 RI: 0.83 [place] Renal Parenchyma, Left PSV (cm/s): 39 EDV (cm/s): 10 RI: 0.74 Renal Hilum, Left AT (ms): 50 Kidney Length, Left Length (cm): 12.5 Renal Vein, Left Patent: Patent Interpretation: Right: Proximal to mid renal artery not visualized due to body habitus. Patent distal main renal artery with no evidence of hemodynamically significant stenosis. Patent main renal vein. Normal flow in the kidneys. No identifiable change when compared to the previous exam. Left: Proximal to mid renal artery not visualized due to body habitus. Patent distal main renal artery with no evidence of hemodynamically significant stenosis. Patent main renal vein. Normal flow in the kidneys. No identifiable change when compared to the previous exam. Impression and Recommendations: Myla 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 male with AUD, otherwise unknown PMHx who was admitted for right cerebellar IPH ISO hypertension emergency. 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 On review of CT the Mesenteric branches extend from the true lumen, the right renal from the true lumen and the left renal from the false lumen. He is being managed with strict impulse control. In the interim his renal function has significantly worsened, however appears to have peaked and isdown trending. The etiology remains unclear and it is possible that he has less renal perfusion in the setting of his dissection however unlikely. Repeat renal duplex demonstrates patent renal arteries without hemodynamically significant stenoses or compromised renal parenchymal flow. On CXR he has a possible worsening mediastinal hematoma which could be due to the dissection and would argue for a more acute dissection as opposed to chronic. In acute dissections intramural hematomas are common and they can be associated with reactive airspace disease. Again there are limitationson the ability to treat and also additional imaging to confirm these findings, which are treated supportively, would be low yield. Recommendations: - No vascular surgery intervention indicated; no further imaging needed at this time - Repeat renal duplex demonstrates patent renal arteries without hemodynamically significant stenoses or compromised renal parenchymal flow - Impulse control with the following parameters: SBP < 120 and HR<80 - Agree with Cardiology (Vascular medicine) consult for management of anti- hypertensives inpatient and outpatient follow up - start ASA 81 when safe to do so from a neuro perspective - all other care per primary - We have arranged ~3 month follow up with interval CTA (ordered) Vascular surgery will continue to peripherally Discussed with Dr. Camilla Alvarez MD 05/01/2023 Vascular Surgery Service [phone] * Care Management - Melchor Frazier RN - 05/01/2023 7:57 AM EDT OFFICE OF CARE MANAGEMENT PROGRESS NOTE LOS: Hospital Day 13 days Chart reviewed, care reviewed with primary team and at interdisciplinary rounds. Patient continues to meet inpatient level of care related to: intubated, sedated, and Q 1 hour interventions and remains in the hospital related to provider notes of 04/30/2023: 67 y.o. male with AUD, otherwise unknown PMHx who was admitted for right cerebellar IPH and type B dissection extending from subclav to external iliac of unknown chronicity. Interval history/ 24 hour events - unable to elicit him following commands - Worsening kidney function overnight - CXR with concern for worsening mediastinal hematoma - EVD remains in place Consulted services: Vascular; Nephrology, Cardiology Tolerating CRRT with net ultrafiltration ICU Needs: Q1 hour interventions, ICU specific devices / therapies, mechanically ventilated, vasoactive medications; Tolerating CRRT Functional status prior to admission: Independent Home Environment: Others in the home: spouse. Current Living Arrangements: home/apartment/condo. Accessibility Concerns: 0 PATRICIA,. Current Functional Ability: Assistive Person and Equipment DME used at home: (has grab bars available) DME Needed at Discharge: Pending PT / OT Recommendations Last Physical Therapy Recommendation: acute rehabilitation facility, swing bed rehabilitation facility with to be determined Last Occupational Therapy Recommendation: acute rehabilitation facility with to be determined Patient is insured through: Primary Insurance: MEDICARE Payor: MEDICARE / Plan: MEDICARE PART A & B / Product Type: *No Product type* / Secondary Insurance: [employer] [facility] Prescription Coverage: Yes Preferred Pharmacy: [id number] - [place], [place] - [address] [place] [address] [address] [facility] [id number] Plan for discharge is: Acute Rehab Agency Referrals & Follow-up Care: [facility] and Sub-Acute (Swing) Rehab Levels of Care [address] [place] [address] Transportation: pending needs closer to discharge Barriers to discharge: Discharge planning, ICU Needs Psych: Adjustment to diagnosis/illness, Decision-making, Coping/stress, Grief/loss, Cognitive/perceptual Supports: Caregiver support Cerebellar hemorrhage Aortic dissection Respiratory failure Following for HD needs at time of director search marketing strategies/CM following with HOSPITAL MEDICINE DIRECTOR and LTC-[facility]: Advance Directives: none per spouse Guardianship discussion with HOSPITAL MEDICINE DIRECTOR and application process started - pending. LTC referral sent to [facility]: 05/01/2023 Plan going forward: Service Care Management will continue to follow and assist with discharge planning and coordination of care as indicated. Anticipated Date of Discharge: cam Frazier RN RN/CM - Cellphone: [phone] Pager: [phone] Covering Service RN/CM * Plan of Care - Eulalia Blakely RN - 04/30/2023 9:44 PM EDT Problem: Restraint, Nonbehavioral (Nonviolent) Goal: Discontinuation Criteria Achieved 04/30/20232143 by Eulalia Blakely RN Outcome: Ongoing (Interventions Implemented as Appropriate) 04/30/2023 0745 by Eulalia Blakely RN Outcome: Ongoing (Interventions Implemented as Appropriate) Problem: Adjustment to Illness (Stroke, Hemorrhagic) Goal: Optimal Coping 04/30/20232143 by Eulalia Blakely RN Outcome: Ongoing (Interventions Implemented as Appropriate) 04/30/2023 0745 by Eulalia Blakely RN Outcome: Ongoing (Interventions Implemented as Appropriate) Problem: Bowel Elimination Impaired (Stroke, Hemorrhagic) Goal: Effective Bowel Elimination 04/30/20232143 by Eulalia Blakely RN Outcome: Ongoing (Interventions Implemented as Appropriate) 04/30/2023 0745 by Eulalia Blakely RN Outcome: Ongoing (Interventions Implemented as Appropriate) Problem: Cerebral Tissue Perfusion (Stroke, Hemorrhagic) Goal: Optimal Cerebral Tissue Perfusion 04/30/20232143 by Eulalia Blakely RN Outcome: Ongoing (Interventions Implemented as Appropriate) 04/30/2023 07 by Eulalia Blakely RN Outcome: Ongoing (Interventions Implemented as Appropriate) Problem: Cognitive Impairment (Stroke, Hemorrhagic) Goal: Optimal Cognitive Function 04/30/20232143 by Eulalia Blakely RN Outcome: Ongoing (Interventions Implemented as Appropriate) 04/30/2023 07 by Eulalia Blakely RN Outcome: Ongoing (Interventions Implemented as Appropriate) Problem: Communication Impairment (Stroke, Hemorrhagic) Goal: Effective Communication Skills 04/30/20232143 by Eulalia Blakely RN Outcome: Ongoing (Interventions Implemented as Appropriate) 04/30/2023744 by Eulalia Blakely RN Outcome: Ongoing (Interventions Implemented as Appropriate) Problem: Functional Ability Impaired (Stroke, Hemorrhagic) Goal: Optimal Functional Ability 04/30/20232143 by Eulalia Blakely RN Outcome: Ongoing (Interventions Implemented as Appropriate) 04/30/2023 07 by Eulalia Blakely RN Outcome: Ongoing (Interventions Implemented as Appropriate) Problem: Pain (Stroke, Hemorrhagic) Goal: Acceptable Pain Control 04/30/20232143 by Eulalia Blakely RN Outcome: Ongoing (Interventions Implemented as Appropriate) 04/30/2023 07 by Eulalia Blakely RN Outcome: Ongoing (Interventions Implemented as Appropriate) Problem: Respiratory Compromise (Stroke, Hemorrhagic) Goal: Effective Oxygenation and Ventilation 04/30/20232143 by Eulalia Blakely RN Outcome: Ongoing (Interventions Implemented as Appropriate) 04/30/2023 07 by Eulalia Blakely RN Outcome: Ongoing (Interventions Implemented as Appropriate) Problem: Sensorimotor Impairment (Stroke, Hemorrhagic) Goal: Improved Sensorimotor Function 04/30/20232143 by Eulalia Blakely RN Outcome: Ongoing (Interventions Implemented as Appropriate) 04/30/2023 07 by Eulalia Blakely RN Outcome: Ongoing (Interventions Implemented as Appropriate) Problem: Swallowing Impairment (Stroke, Hemorrhagic) Goal: Oral Intake without Aspiration 04/30/20232143 by Eulalia Blakely RN Outcome: Ongoing (Interventions Implemented as Appropriate) 04/30/2023 07 by Eulalia Blakely RN Outcome: Ongoing (Interventions Implemented as Appropriate) Problem: Urinary Elimination Impaired (Stroke, Hemorrhagic) Goal: Effective Urinary Elimination 04/30/20232143 by Eulalia Blakely RN Outcome: Ongoing (Interventions Implemented as Appropriate) 04/30/2023 07 by Eulalia Blakely RN Outcome: Ongoing (Interventions Implemented as Appropriate) Problem: Fall Injury Risk Goal: Absence of Fall and Fall-Related Injury 04/30/20232143 by Eulalia Blakely RN Outcome: Ongoing (Interventions Implemented as Appropriate) 04/30/2023744 by Eulalia Blakely RN Outcome: Ongoing (Interventions Implemented as Appropriate) Problem: Adult Inpatient Plan of Care Goal: Plan of Care Review 04/30/20232143 by Eulalia Blakely RN Outcome: Ongoing (Interventions Implemented as Appropriate) 04/30/2023744 by Eulalia Blakely RN Outcome: Ongoing (Interventions Implemented as Appropriate) Goal: Patient-Specific Goal (Individualized) 04/30/20232143 by Eulalia Blakely RN Outcome: Ongoing (Interventions Implemented as Appropriate) 04/30/2023744 by Eulalia Blakely RN Outcome: Ongoing (Interventions Implemented as Appropriate) Goal: Absence of Hospital-Acquired Illness or Injury 04/30/20232143 by Eulalia Blakely RN Outcome: Ongoing (Interventions Implemented as Appropriate) 04/30/2023744 by Eulalia Blakely RN Outcome: Ongoing (Interventions Implemented as Appropriate) Goal: Optimal Comfort and Wellbeing 04/30/20232143 by Eulalia Blakely RN Outcome: Ongoing (Interventions Implemented as Appropriate) 04/30/2023744 by Eulalia Blakely RN Outcome: Ongoing (Interventions Implemented as Appropriate) Goal: Readiness for Transition of Care 04/30/20232143 by Eulalia Blakely RN Outcome: Ongoing (Interventions Implemented as Appropriate) 04/30/2023 07 by Eulalia Blakely RN Outcome: Ongoing (Interventions Implemented as Appropriate) * Consult Note - Humble Gaviria MD - 04/30/2023 10:24 AM EDT Vascular Surgery Inpatient Consult Note ID: Myla 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 male with AUD, otherwise unknown PMHx who was admitted for right cerebellar IPH and type B dissection extending from subclav to external iliac of unknown chronicity. Interval history/ 24 hour events - unable to elicit him following commands - Worsening kidney function overnight - CXR with concern for worsening mediastinal hematoma - EVD remains in place PMH: No past medical history on file. Patient Active Problem List Diagnosis Code ICH (intracerebral hemorrhage) I61.9 PSH: No past surgical history on file. Review of Systems: As stated above, otherwise ten system review negative Vitals: Last Value Range last 24 hrs Temperature Temp: 37.4 ??C (99.3 ??F) Temp: [37.4 ??C (99.3 ??F)-37.5 ??C (99.5 ??F)] Heart Rate Heart Rate: 73 Heart Rate from SpO2: 73 bpm Heart Rate: [57-73] Heart Rate From SP02 Min: 57 bpm Max: 73 bpm Blood Pressure BP: (S) 108/61 BP: (102-108)/(48-61) BP (Arterial Line): (93-121)/(35-56) Respiratory Rate Resp: 19 Resp: [11-21] SpO2 SpO2: 96 % SpO2: [92 %-96 %] O2 Device O2 Device: Ventilator Weight/BMI Weight: -- Body mass index is 39.24 kg/m??. Intake/Output Summary (Last 24 hours) at 04/30/2023 1024 Last data filed at 04/30/2023 0900 Gross per 24 hour Intake 3600.93 ml Output 711 ml Net 2889.93 ml NPO diet (Give Meds) Physical Exam: GEN: intubated and sedated HEENT: normocephalic, atraumatic CHEST: ventilated CV: regular rate, well perfused ABD: soft, moderately distended, no grimace to palpation EXTR: moving all extremities spontaneously VASC: BL femoral pulses 2+; palpable pulses in all four extremities 2+ NEURO: unable to assess Data Reviewed: Labs: Recent Labs 04/29/23 2315 04/29/23 0105 04/28/23 0120 WBC 10.8* 11.4* 11.7* HGB 11.0* 11.4* 11.5* HCT 33.7* 34.1* 34.9* PLATELET 257 229 244 Recent Labs 04/30/23 0515 04/29/23 2315 04/29/23 1750 04/29/23 1153 04/29/23 0507 NA 133* 136 137 135 134* K 4.2 4.0 4.1 4.2 3.8 CL 101 103 104 102 101 CO2 19* 20* 20* 20* 20* BUN 61* 58* 56* 52* 49* CREATININE 3.51* 3.36* 3.19* 2.73* 2.30* GLUCOSE 136 123 126 149 132 CALCIUM 8.8 8.7 8.7 8.8 9.1 MAGNESIUM 1.04 1.03 1.03 1.03 0.95 PHOS 5.4* 5.0* 4.8* 4.3 4.0 Recent Labs 04/28/23 0120 PROT 6.7 ALBUMIN 3.1* BILITOT 0.5 BILIDIR 0.3 ALKPHOS 61 AST 26 ALT 38 Recent Labs 04/29/23 1705 04/27/23 1249 04/27/23 1221 LACTATEVEN 0.7 0.6 0.5 Recent Labs 04/29/23 1705 04/27/23 2336 04/27/23 1249 04/27/23 1221 PHART 7.32* 7.28* 7.29* 7.29* [id number] 38 45 42 37 PO2ART 69* 68* 88 72* [id number] 19.0* 21.0 19.8* 17.3* Studies: CTA CAP 04/22/23- IMPRESSION 1. 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 2. No active extravasation, however , there is some apparent high density within a trace left pleural fluid collection possibly hemothorax and raises concern for early aneurysm leak/rupture into the pleural space. 3. Fusiform dilatation of the descending thoracic aorta measuring up to 4.7-4.8 cm. In maximal diameter Renal Duplex 04/28/23 Findings: Right Patent Renal Artery Ostium No Vis Renal Artery Proximal No Vis Renal Artery Mid No Vis Renal Artery Distal No Vis Left PSV (cm/s) EDV (cm/s) RI AT (ms) Patent Renal Artery Ostium No Vis Renal Artery Proximal No Vis Renal Artery Mid No Vis Renal Artery Distal 73 11 0.84 [place] Renal Parenchyma 26 9 0.64 Renal Hilum 41 11 60 Renal Vein Patent Interpretation: Comment: Limited exam due to time of day ( study started at 1600), overlying bowel gas, patient positioning and patient body habitus. Right: Unable to study kidney, renal artery, and renal vein due to limitations listed above. Unableto determine patency. Left: Patent distal main renal artery with no evidence of hemodynamically significant stenosis. Patent main renal vein. Due to limitations listed above unable to study origin and proximal to mid renal artery; cannot exclude higher velocities/ stenosis here. Impression and Recommendations: Myla 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 male with AUD, otherwise unknown PMHx who was admitted for right cerebellar IPH ISO hypertension emergency. 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 Mesenteric branches extend from the true lumen. He is being managed with strict impulse control. His renal function is significantly worsening and it is possible that he has less renal perfusion in the setting of his dissection. However at this point we would need a CT scan to identify this and even if identified we wouldn't be able to treat given his IPH and EVD. Thus would hold off on contrast to try and preserve some kidney function. Will order repeat renal duplex tomorrow which could possible provide some further information. On CXR he has a possible worsening mediastinal hematoma which could be due to the dissection and would argue for a more acute dissection as opposed to chronic. In acute dissections intramural hematomas are common and they can have reactive airspace disease. Again with the limitations on the abilityto treat re imaging to confirm these findings which are treated supportively would be low yield. Recommendations: - No vascular surgery intervention indicated; no further imaging needed at this time - Repeat renal duplex on Monday - Impulse control with the following parameters: SBP < 120 and HR<80 - Agree with Cardiology (Vascular medicine) consult for management of anti- hypertensives inpatient and outpatient follow up - start ASA 81 when safe to do so from a neuro perspective - all other care per primary - We have arranged ~3 month follow up with interval CTA (ordered) Vascular surgery will continue to follow Discussed with Dr. Camilla Gaviria MD 04/30/2023 Vascular Surgery Service [phone] * Plan of Care - Trang Echeverria MD - 04/30/2023 10:13 AM EDT Cardiology reviewing HR/BP recommendations HR: -manage physiologic stress: pain, anxiety, bowel regimen etc -ivabradine 7.5mg q 12 hr -switch carvedilol to metoprolol tartrate 12.5mg q6 hr and as needed (this has less alpha effect and will address the relative hypotension) -if heart rates are still 60s on maximum tolerated ivabradine/metoprolol this may be the best able to be achieved with his current physiologic stress BP: -wean diltiazem -wean off phenylephrine -continue lasix * Plan of Care - Eulalia Blakely RN - 04/30/2023 6:00 AM EDT Problem: Restraint, Nonbehavioral (Nonviolent) Goal: Discontinuation Criteria Achieved Outcome: Ongoing (Interventions Implemented as Appropriate) Problem: Adjustment to Illness (Stroke, Hemorrhagic) Goal: Optimal Coping Outcome: Ongoing (Interventions Implemented as Appropriate) Problem: Bowel Elimination Impaired (Stroke, Hemorrhagic) Goal: Effective Bowel Elimination Outcome: Ongoing (Interventions Implemented as Appropriate) Problem: Cerebral Tissue Perfusion (Stroke, Hemorrhagic) Goal: Optimal Cerebral Tissue Perfusion Outcome: Ongoing (Interventions Implemented as Appropriate) Problem: Cognitive Impairment (Stroke, Hemorrhagic) Goal: Optimal Cognitive Function Outcome: Ongoing (Interventions Implemented as Appropriate) Problem: Communication Impairment (Stroke, Hemorrhagic) Goal: Effective Communication Skills Outcome: Ongoing (Interventions Implemented as Appropriate) Problem: Functional Ability Impaired (Stroke, Hemorrhagic) Goal: Optimal Functional Ability Outcome: Ongoing (Interventions Implemented as Appropriate) Problem: Pain (Stroke, Hemorrhagic) Goal: Acceptable Pain Control Outcome: Ongoing (Interventions Implemented as Appropriate) Problem: Respiratory Compromise (Stroke, Hemorrhagic) Goal: Effective Oxygenation and Ventilation Outcome: Ongoing (Interventions Implemented as Appropriate) Problem: Sensorimotor Impairment (Stroke, Hemorrhagic) Goal: Improved Sensorimotor Function Outcome: Ongoing (Interventions Implemented as Appropriate) Problem: Swallowing Impairment (Stroke, Hemorrhagic) Goal: Oral Intake without Aspiration Outcome: Ongoing (Interventions Implemented as Appropriate) Problem: Urinary Elimination Impaired (Stroke, Hemorrhagic) Goal: Effective Urinary Elimination Outcome: Ongoing (Interventions Implemented as Appropriate) Problem: Fall Injury Risk Goal: Absence of Fall and Fall-Related Injury Outcome: Ongoing (Interventions Implemented as Appropriate) Problem: Adult Inpatient Plan of Care Goal: Plan of Care Review Outcome: Ongoing (Interventions Implemented as Appropriate) Goal: Patient-Specific Goal (Individualized) Outcome: Ongoing (Interventions Implemented as Appropriate) Goal: Absence of Hospital-Acquired Illness or Injury Outcome: Ongoing (Interventions Implemented as Appropriate) Goal: Optimal Comfort and Wellbeing Outcome: Ongoing (Interventions Implemented as Appropriate) Goal: Readiness for Transition of Care Outcome: Ongoing (Interventions Implemented as Appropriate) * Consult Note - Humble Gaviria MD - 04/29/2023 10:21 AM EDT Vascular Surgery Inpatient Consult Note ID: Myla 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 male with AUD, otherwise unknown PMHx who was admitted for right cerebellar IPH and type B dissection extending from subclav to external iliac of unknown chronicity. Interval history/ 24 hour events - neuro exam waxing and waning in terms of patient following commands - Worsening kidney function overnight, renal ultrasound performed yesterday - EVD remains in place PMH: No past medical history on file. Patient Active Problem List Diagnosis Code ICH (intracerebral hemorrhage) I61.9 PSH: No past surgical history on file. Review of Systems: As stated above, otherwise ten system review negative Vitals: Last Value Range last 24 hrs Temperature Temp: 37.8 ??C (100 ??F) Temp: [37.2 ??C (98.9 ??F)-37.9 ??C (100.2 ??F)] Heart Rate Heart Rate: 66 Heart Rate from SpO2: 66 bpm Heart Rate: [54-77] Heart Rate From SP02 Min: 49 bpm Max: 75 bpm Blood Pressure BP: 106/53 BP: (105-120)/(40-63) BP (Arterial Line): (89-157)/(35-110) Respiratory Rate Resp: 19 Resp: [13-23] SpO2 SpO2: 93 % SpO2: [90 %-98 %] O2 Device O2 Device: Ventilator Weight/BMI Weight: 118.8 kg (261 lb 14.5 oz) Body mass index is 39.24 kg/m??. Intake/Output Summary (Last 24 hours) at 04/29/2023 1021 Last data filed at 04/29/2023 0900 Gross per 24 hour Intake 3354.12 ml Output 4110 ml Net -755.88 ml NPO diet (Give Meds) Physical Exam: GEN: intubated and sedated HEENT: normocephalic, atraumatic CHEST: ventilated CV: regular rate, well perfused ABD: soft, moderately distended, no grimace to palpation EXTR: moving all extremities spontaneously VASC: BL femoral pulses 2+; palpable pulses in all four extremities 2+ NEURO: unable to assess Data Reviewed: Labs: Recent Labs 04/29/23 0105 04/28/23 0120 WBC 11.4* 11.7* HGB 11.4* 11.5* HCT 34.1* 34.9* PLATELET 229 244 Recent Labs 04/29/23 0507 04/29/23 0105 04/28/23 1811 04/28/23 1142 04/28/23 0512 04/28/23 0120 NA 134* 136 134* 135 134* -- K 3.8 3.7 3.7 3.9 3.8 -- CL 101 102 101 103 103 -- CO2 20* 21* 20* 20* 19* -- BUN 49* 45* 41* 39* 37* -- CREATININE 2.30* 2.16* 1.93* 1.77* 1.74* -- GLUCOSE 132 120 103 112 113 -- CALCIUM 9.1 8.7 8.9 8.7 8.6 -- MAGNESIUM 0.95 0.93 0.93 0.93 0.92 -- PHOS 4.0 4.2 5.1* 5.1* -- 5.0* Recent Labs 04/28/23 0120 PROT 6.7 ALBUMIN 3.1* BILITOT 0.5 BILIDIR 0.3 ALKPHOS 61 AST 26 ALT 38 Recent Labs 04/27/23 1249 04/27/23 1221 LACTATEVEN 0.6 0.5 Recent Labs 04/27/23 2336 04/27/23 1249 04/27/23 1221 PHART 7.28* 7.29* 7.29* [id number] 45 42 37 PO2ART 68* 88 72* [id number] 21.0 19.8* 17.3* Studies: CTA CAP 04/22/23- IMPRESSION 1. 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 2. No active extravasation, however , there is some apparent high density within a trace left pleural fluid collection possibly hemothorax and raises concern for early aneurysm leak/rupture into the pleural space. 3. Fusiform dilatation of the descending thoracic aorta measuring up to 4.7-4.8 cm. In maximal diameter Renal Duplex 04/28/23 Findings: Right Patent Renal Artery Ostium No Vis Renal Artery Proximal No Vis Renal Artery Mid No Vis Renal Artery Distal No Vis Left PSV (cm/s) EDV (cm/s) RI AT (ms) Patent Renal Artery Ostium No Vis Renal Artery Proximal No Vis Renal Artery Mid No Vis Renal Artery Distal 73 11 0.84 [place] Renal Parenchyma 26 9 0.64 Renal Hilum 41 11 60 Renal Vein Patent Interpretation: Comment: Limited exam due to time of day ( study started at 1600), overlying bowel gas, patient positioning and patient body habitus. Right: Unable to study kidney, renal artery, and renal vein due to limitations listed above. Unableto determine patency. Left: Patent distal main renal artery with no evidence of hemodynamically significant stenosis. Patent main renal vein. Due to limitations listed above unable to study origin and proximal to mid renal artery; cannot exclude higher velocities/ stenosis here. Impression and Recommendations: Myla 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 male with AUD, otherwise unknown PMHx who was admitted for right cerebellar IPH ISO hypertension emergency. 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 Mesenteric branches extend from the true lumen. He is being managed with strict impulse control and has no signs or symptoms of malperfusion of complicated dissection. As such there is no role for vascular surgery intervention. In addition he is unable to be heparinized at this time given his IPH and EVD. Given OVI and concern for left renal perfusion given that it arises from the false lumen, vascular surgery was re-engaged. A renal duplex demonstrates a patent left distal renal artery, as such perfusion to the left kidney is unlikely the the explanation. Although the right renal artery was not well visualized on duplex, it arises from the true lumen thus is receiving systemic perfusion Recommendations: - No vascular surgery intervention indicated; no further imaging needed at this time - Could consider repeat renal duplex on Monday - Impulse control with the following parameters: SBP < 120 and HR<80 - Agree with Cardiology (Vascular medicine) consult for management of anti- hypertensives inpatient and outpatient follow up - start ASA 81 when safe to do so from a neuro perspective - all other care per primary - We have arranged ~3 month follow up with interval CTA (ordered) Vascular surgery will continue to follow Discussed with Dr. Camilla Gaviria MD 04/29/2023 Vascular Surgery Service [phone] * Consult Note - Narayan Alvarez MD - 04/28/2023 5:27 PM EDT Vascular Surgery Inpatient Consult Note History of Present Illness: Myla 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 male with AUD, otherwise unknown PMHx who was admitted for right cerebellar IPH. Initial Bps were noted to be in the 200s. Was started on a nicard gtt for BP control. Was subsequently intubated at the OSH for airway protection given worsening somnolence. Imaging of carotids and [place] reveal unexpected finding of aortic dissection. CTA CA with type B dissection extending from subclav to external iliac. Thus vascular surgery was called. Patient extubated today, though continues on CIWA protocol. He is unable to participate in an exam. Interval history/ 24 hour events - In the interim has been intubated for volume overload and on a lasix gtt - PSV 19/09; 30% - HR paramter expanded to < 70 to liberalize from Esmolol which is now off, remains on Javon at 50 - EVD remains in place PMH: No past medical history on file. Patient Active Problem List Diagnosis Code ICH (intracerebral hemorrhage) I61.9 PSH: No past surgical history on file. Review of Systems: As stated above, otherwise ten system review negative Vitals: Last Value Range last 24 hrs Temperature Temp: 37.2 ??C (98.9 ??F) Temp: [37 ??C (98.6 ??F)-37.2 ??C (99 ??F)] Heart Rate Heart Rate: 58 Heart Rate from SpO2: 58 bpm Heart Rate: [43-66] Heart Rate From SP02 Min: 43 bpm Max: 66 bpm Blood Pressure BP: 111/45 BP: (107-111)/(45-50) BP (Arterial Line): (89-157)/(35-110) Respiratory Rate Resp: 14 Resp: [11-19] SpO2 SpO2: 98 % SpO2: [91 %-100 %] O2 Device O2 Device: Ventilator Weight/BMI Weight: 123.5 kg (272 lb 4.3 oz) Body mass index is 40.79 kg/m??. Intake/Output Summary (Last 24 hours) at 04/28/2023 1530 Last data filed at 04/28/2023 1400 Gross per 24 hour Intake 3268.51 ml Output 2415 ml Net 853.51 ml NPO diet (Give Meds) Physical Exam: GEN: intubated and sedated HEENT: normocephalic, atraumatic CHEST: ventilated CV: regular rate, well perfused ABD: soft, moderately distended, no grimace to palpation EXTR: moving all extremities spontaneously VASC: BL femoral pulses 2+; palpable pulses in all four extremities 2+ NEURO: unable to assess Data Reviewed: Labs: Recent Labs 04/28/23 0120 04/26/23 0020 WBC 11.7* 6.5 HGB 11.5* 12.2* HCT 34.9* 36.3* PLATELET 244 186 Recent Labs 04/28/23 1142 04/28/23 0512 04/28/23 0120 04/27/23 2300 04/27/23 1621 04/27/23 1213 04/26/23 0626 04/26/23 0020 NA 135 134* -- 134* 132* 132* < > 134* K 3.9 3.8 -- 3.8 4.2 4.1 < > 4.2 CL 103 103 -- 103 101 101 < > 103 CO2 20* 19* -- 21* 21* 22 < > 23 BUN 39* 37* -- 35* 33* -- -- 24* CREATININE 1.77* 1.74* -- 1.54* 1.33 -- -- 1.07 GLUCOSE 112 113 -- 114 135 -- -- 149 CALCIUM 8.7 8.6 -- 8.4* 8.6 -- -- 8.4* MAGNESIUM 0.93 0.92 -- 0.90 0.95 0.93 < > 0.71 PHOS 5.1* -- 5.0* -- -- -- -- 2.4* < > = values in this interval not displayed. Recent Labs 04/28/23 0120 PROT 6.7 ALBUMIN 3.1* BILITOT 0.5 BILIDIR 0.3 ALKPHOS 61 AST 26 ALT 38 Recent Labs 04/27/23 1249 04/27/23 1221 LACTATEVEN 0.6 0.5 Recent Labs 04/27/23 2336 04/27/23 1249 04/27/23 1221 PHART 7.28* 7.29* 7.29* [id number] 45 42 37 PO2ART 68* 88 72* [id number] 21.0 19.8* 17.3* Studies: CTA CAP 04/22/23- IMPRESSION 1. 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 2. No active extravasation, however , there is some apparent high density within a trace left pleural fluid collection possibly hemothorax and raises concern for early aneurysm leak/rupture into the pleural space. 3. Fusiform dilatation of the descending thoracic aorta measuring up to 4.7-4.8 cm. In maximal diameter Renal Duplex 04/28/23 Findings: Right Patent Renal Artery Ostium No Vis Renal Artery Proximal No Vis Renal Artery Mid No Vis Renal Artery Distal No Vis Left PSV (cm/s) EDV (cm/s) RI AT (ms) Patent Renal Artery Ostium No Vis Renal Artery Proximal No Vis Renal Artery Mid No Vis Renal Artery Distal 73 11 0.84 [place] Renal Parenchyma 26 9 0.64 Renal Hilum 41 11 60 Renal Vein Patent Interpretation: Comment: Limited exam due to time of day ( study started at 1600), overlying bowel gas, patient positioning and patient body habitus. Right: Unable to study kidney, renal artery, and renal vein due to limitations listed above. Unable to determine patency. Left: Patent distal main renal artery with no evidence of hemodynamically significant stenosis. Patent main renal vein. Due to limitations listed above unable to study origin and proximal to mid renal artery; cannot exclude higher velocities/ stenosis here. Impression and Recommendations: Myla 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 male with AUD, otherwise unknown PMHx who was admitted for right cerebellar IPH ISO hypertension emergency. 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 Mesenteric branches extend from the true lumen. He is being managed with strict impulse control and has nosigns or symptoms of malperfusion of complicated dissection. As such there is no role for vascular surgery intervention. Given OVI and concern for left renal perfusion given that it arises from the false lumen, vascular surgery was re-engaged. A renal duplex demonstrates a patent left distal renal artery, as such perfusion to the left kidney is unlikely the the explanation. Although the right renal artery was not well visualized on duplex, it arises from the true lumen thus is receiving systemic perfusion Recommendations: - No vascular surgery intervention indicated; no further imaging needed at this time - Agree with nephrology consult - suspect element of intrinsic renal parenchymal disease given resistive index of 0.84 - Impulse control with the following parameters: SBP < 120 and HR<70 - Agree with Cardiology (Vascular medicine) consult for management of anti- hypertensives inpatient and outpatient follow up - start ASA 81 when safe to do so from a neuro perspective - all other care per primary - We have arranged ~3 month follow up with interval CTA (ordered) Vascular surgery will continue to follow Discussed with Dr. Enoch Alvarez MD 04/28/2023 Vascular Surgery Service [phone] * Consult Note - Tio Bravo MD - 04/28/2023 3:21 PM EDT Renal Attending Inpatient Consult We are asked to evaluate Myla Acosta regarding acute kidney injury in the context of a type B aortic dissection complicated by intracranial hemorrhage. Myla Acosta was seen and examined and discussed with the referring team and the data and chartwere reviewed. Patient is intubated and unable to provide history, although he is awake and appears to comprehend and interact. Unfortunately, there is no real information regarding his past medical history. According to the record he presented on April 17 with severe vertigo, emesis, lethargy, hypertension to systolic of 230, and then declined in terms of mental status resulting in intubation. Imaging demonstrated a right cerebellar intraparenchymal hemorrhage with intraventricular extension. Initial creatinine 1.29. Initial glucose 218 in our record. The intraparenchymal hemorrhage led to a CTA of the carotids and [place] demonstrating an unexpected finding of aortic dissection type B extendingfrom the left subclavian to bilateral external iliacs; both kidneys have dual renal arteries. The left kidney comes off the false lumen. There are bilateral renal cysts in both kidneys enhance symmetrically, although the lower pole of the left kidney perhaps not quite as much. Patient subsequently treated with esmolol to control heart rate and blood pressure. This was converted to diltiazem, ivabradine and carvedilol to reduce fluid load. Over the course of the admission, the patient has been nonoliguric, but is 10.2 L positive and has gained approximately 7 kg. Patient achieved extubation but required intubation again for hypoxemia and increased work of breathing that was thought to relateto the fluid overload. Chest x-ray yesterday showed low lung volumes and bronchovascular crowding and small left pleural effusion/left basilar opacity, but did not show overt pulmonary edema. He has not had BNP measurement or echocardiography. He has been treated with furosemide infusion and metolazone was added to augment diuresis to address the positive fluid balance. Yesterday he was 2 L positive but today he is approximately 400 cc negative so far today he is on phenylephrine blood pressuresupport but also receiving carvedilol and the ivabradine. Creatinine nadired at less than 1 on April 24 but subsequently has increased steadily to current value of 1.77. Iit is of note that he received contrast for CT scanning on April 20 and but subsequent imaging has been without contrast. There are no urine studies available. A renal duplex to assess renal perfusion is planned for later today. Latest Reference Range & Units 04/18/23 06:50 04/19/23 00:35 04/20/23 01:10 04/21/23 00:36 04/22/23 01:39 04/23/23 00:24 04/24/23 00:20 04/25/23 01:10 04/26/23 00:20 04/27/23 16:21 04/27/23 23: 05:12 04/28/23 11:42 Creatinine 0.80 - 1.50 mg/dL 1.29 1.09 1.03 1.28 1.06 1.04 0.93 0.93 1.07 1.33 1.54 (H) 1.74 (H) 1.77 (H) Patient Active Problem List Diagnosis Code ICH (intracerebral hemorrhage) I61.9 Scheduled Meds: dilTIAZem 90 mg Per NG tube Q6H YUSUF carvediloL 12.5 mg Per NG tube Q12H sodium chloride 1 g Per NG tube TID metOLazone 5 mg Oral Once senna-docusate 2 tablet Per NG tube BID ipratropium-albuteroL 3 mL Nebulization Q4H chlorhexidine 15 mL Oral BID famotidine 20 mg Per NG tube BID shift total and Settings verification 1 each Intravenous 2 Times Daily - Shift Total ivabradine 5 mg Oral BID magnesium hydroxide 30 mL Oral Daily tamsulosin 0.4 mg Oral Daily polyethylene glycoL (MIRALAX) oral powder 17 g Oral Daily sodium chloride 4 mL Nebulization Q4H heparin (porcine) 5,000 Units Subcutaneous Q8H YUSUF lidocaine 1 patch Transdermal Q24H camphor-methyl salicyl-menthoL Topical (Top) BID thiamine 100 mg Intravenous Daily folic acid 1,000 mcg Per NG tube Daily multivitamin with minerals 1 tablet Per NG tube Daily Continuous Infusions: furosemide 20 mg/hr (04/28/23 1421) clevidipine Stopped (04/27/23 1150) PHENYLephrine 50 mcg/min (04/28/23 1400) propofoL 20 mcg/kg/min (04/28/23 1200) esmoloL in sodium chloride 0.9% Stopped (04/27/23 2246) fentaNYL 25 mcg/hr (04/28/23 0700) tube feeding diet Stopped (04/27/23 1150) PRN Meds:.[DISCONTINUED] bisacodyl EC AND lactulose AND lactulose AND magnesium citrateAND Tap water enema, propofoL AND propofoL, fentaNYL AND [COMPLETED] fentaNYL AND fentaNYL AND shift total and Settings verification AND Assess, potassium chloride ER OR potassium chloride ER, QUEtiapine, acetaminophen, labetaloL, enalaprilat, bisacodyL, glucose 40% oralgeL OR dextrose OR glucagon ON EXAMINATION Blood pressure 111/45, pulse 58, temperature 37.2 ??C (98.9 ??F), temperature source Axillary, resp. rate 14, height 174 cm (5' 8.5), weight 123.5 kg (272 lb 4.3 oz), SpO2 98%. I/O last 3 completed shifts: In: 6964.3 [I.V.:5016.3; NG/GT:1918] Out: 4336 [Urine:3993; Other:343] I/O this shift: In: 838.8 [I.V.:688.8; NG/GT:150] Out: 1220 [Urine:1150; Other:70] A CSF drain is present. CSF pressure is 15 and cerebral perfusion pressure about 41 at the time of my examination. Large, intubated man appears comfortable on ventilator. He opens eyes to examination and appeared to nod. There is moderate generalized edema, slightly more on the left foot and leg than the right. Chest remarkably clear anteriorly. Heart bradycardic and regular (sinus bradycardia by monitor) without audible murmur, rub, or gallop. The abdomen is protuberant and somewhat tympanitic. Bowel sounds are present but the abdomen does seem distended to me. There are no obvious abdominal or flank ecchymoses. Pedal pulses are palpable. The left foot is warmer than the right foot. Imaging as above Lab Results Component Value Date WBC 11.7 (H) 04/28/2023 Hemoglobin 11.5 (L) 04/28/2023 Hematocrit 34.9 (L) 04/28/2023 Platelets 244 04/28/2023 Recent Labs 04/28/23 1142 NA 135 K 3.9 CL 103 CO2 20* BUN 39* CREATININE 1.77* GLUCOSE 112 Lab Results Component Value Date PHOS 5.1 (H) 04/28/2023 Urinalysis and microscopy in 2M renal lab demonstrates a specific gravity 1.010, pH 5, trace protein. The sediment demonstrates small to moderate numbers of hyaline casts and scant amorphous debris. ASSESSMENT AND RECOMMENDATIONS Acute kidney injury in the context of aortic dissection. Patient nonoliguric but relatively oliguric compared to intake and has had complications of fluid overload (or at least suspected in part due to fluid overload) and that he required reintubation for oxygenation. The urine sediment is somewhatbland and suggest renal hypoperfusion, but this is unlikely to tell the whole story. It is possiblethat either kidney is hypoperfused (or both) related to the dissection and thrombosis or thromboembolic phenomenon to the kidneys. The kidney off the false lumen would presumably be at the greatest risk. Hopefully the duplex examination will be helpful in this regard. It is possible that his kidneys have poor autoregulation. Most patients to experience dissection we do not have a genetic predisposition have underlying chronic poorly controlled hypertension. Therefore, it is possible the patienthas chronic hypertension and impaired autoregulation such that at this low normal blood pressure hedoes not perfuse well. Radiocontrast associated nephropathy is another possibility although we do not see urine findings of ATN. Increased abdominal pressure could be playing a role and would monitorfor increasing abdominal distention. Aortic dissection can result in retroperitoneal hematoma formation, but the patient's hemoglobin has been relatively stable and this seems unlikely at present. Finally, it is possible that the patient has underlying CKD. His initial creatinine was generous and he has cysts in both kidneys that sometimes suggests chronic kidney impairment. For now, would managehim with diuresis to try to achieve -1 to 2 L/day. Consider measuring BNP as an index of his degreeof fluid overload. Consider echocardiogram to make sure there is not occult impairment of cardiac function if this has not previously been done. Check urine protein to creatinine ratio and send formal urinalysis to the lab. Note that combination diuretics often result in metabolic alkalosis, but atpresent there is a mild nongap acidosis so he should tolerate furosemide/metolazone adequately for at least a couple of days. However, would trend labs closely. Mild hyperphosphatemia somewhat surprising given the modest rise in creatinine so far. This can be due to tissue damage. Consider checkingLDH and CK. Mild hyponatremia appears to have resolved. Would target normal natremia to minimize any tendency towards cerebral edema. Initial albumin to total protein abnormal with elevated total protein. This is nonspecific but can suggest an underlying paraprotein. Summary of recommendations: Okay to continue with diuresis targeting -1 to 2 L daily. Furosemide infusion can be titrated up to40 mg/h if necessary. Metolazone 10 mg daily reasonable. If alkalosis ensues, acetazolamide can be added. If poorly responsive and pulmonary congestion persists or progresses, renal replacement therapy would be indicated. Agree with workup for renal perfusion Check urine protein to creatinine ratio, urine albumin to creatinine ratio, and urinalysis Check free light chain ratio, SPEP, and UPEP Check LDH and CK to look for source of phosphorus Dose adjust medications for severe impairment of renal function. With rising creatinine, true GFR will be less than the estimated GFR Avoid nephrotoxins Blood pressure target per vascular surgery and neuro ICU team. In general control of heart rate to around 60 and normal MAP is the best target for aortic dissection, but again, this could compromise renal perfusion. Check hepatitis B and C profile in case patient ultimately requires renal replacement therapy. We need to know the serologies for infection control purposes. Thank you for this consultation. Discussed with neurocritical care staff. No clinical or metabolic indication for emergent dialysis at this time. No evidence volume overloadnot responsive to diuretics, acidosis or hyperkalemia not responsive to medical management, uremic encephalopathy,uremic pericarditis, or uremic bleeding. If opiates are indicated, Morphine, codeine, oxycodone, accumulate and have toxic metabolites in CKD stage 5 and dialysis patients. Fentanyl, methadone, dilaudid, are preferable. Tramadol dose shouldbe reduced by 50% We will continue to follow. Thank you for involving us in the care of this patient * Plan of Care - Eulalia Blakely RN - 04/28/2023 6:00 AM EDT Summary of hospitalization: Myla 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 male admitted on 04/18/2023 with Patient Active Problem List Diagnosis Date Noted ICH (intracerebral hemorrhage) 04/18/2023 No past medical history on file. No past surgical history on file. Subjective/Objective: not participatory in neuro assessment, unless persistently prompted Assessment: see DocFlow for details, otherwise significant highlights include the following: N/pain: Q4h neuro checks. Sedated on prop 20/Fent 25. Through sedation, opens eyes to loud voices. GCS8. Will not thumbs up squeeze this writers hands, but with withdraw to nailbed pressure. Will notwiggle toes to commands, but rotates ankles around to light sole pressure/nailbed. PERRLA. +cough/gag/corneals. Doesn't shake head yes/no to simple phrases. Fent bolus 25 x1 for facial grimicing, otherwise appears comfortable in bed when undisturbed. R frontal EVD open at 20, ICP <20, outputs clear and ranging 11-30. CTM as per NSGY orders. P: 8ETT22 teeth, PS setting on 19/09 at 30% pulling 560 VT, PIP <20. LSCDTAL, inline suctioning scant, oral thick moderate amounts. VAP prevention adhered. Pulmonary toileting ongoing. C: Continued ICU monitoring. SBP goals <120, HR <70. Esmolol off by 0. Javon titrated to goal. Clevoprex not utilized this shift. SB lowest to 42, OVN ZE aware, ?polypharmacy d/t scheduled meds, team continuing to adjust med regimen/parameters. Bifasicular block. Type 2 dissection known, CTM. GI: NPO/give. R DHT taped at 70. Abd rounded, taut but soft. BS tympanic. LBM: 04/26, multiple : Rebol[place]o maintained, several oliguric hours-ZE aware, strict hourly I/O's, see DocFlow for details, Lasix gtt at 20. Trending fluid shifts, goal net negative, uptrending wts. Team aware. H: trending q6h BMPs, OVN ABG unchanged Skin/PV: Heels offloaded/sacral mepilex in place. +2 edema to UE and ?abd taut, no edema LE/thighs.Dopplerable pedals, toes cool to touch, Endo: N/A ID: Normothermic. Abx/virals: N/A LD: see Avatar. Act: T&R via bed rotation module given pulmonary decomp. Social: Gina (spouse) updated via phone by ovn ZE Plan/Recommendation: Ongoing supportive management Continued interdisciplinary interventions in alterations in N/P/C/GI//H/Sk/pain CVA/Medication education Notify team of acute changes Maintain safety Emotional support Infection prevention Problem: Restraint, Nonbehavioral (Nonviolent) Goal: Discontinuation Criteria Achieved Outcome: Ongoing (Interventions Implemented as Appropriate) Problem: Adjustment to Illness (Stroke, Hemorrhagic) Goal: Optimal Coping Outcome: Ongoing (Interventions Implemented as Appropriate) Problem: Bowel Elimination Impaired (Stroke, Hemorrhagic) Goal: Effective Bowel Elimination Outcome: Ongoing (Interventions Implemented as Appropriate) Problem: Cerebral Tissue Perfusion (Stroke, Hemorrhagic) Goal: Optimal Cerebral Tissue Perfusion Outcome: Ongoing (Interventions Implemented as Appropriate) Problem: Cognitive Impairment (Stroke, Hemorrhagic) Goal: Optimal Cognitive Function Outcome: Ongoing (Interventions Implemented as Appropriate) Problem: Communication Impairment (Stroke, Hemorrhagic) Goal: Effective Communication Skills Outcome: Ongoing (Interventions Implemented as Appropriate) Problem: Functional Ability Impaired (Stroke, Hemorrhagic) Goal: Optimal Functional Ability Outcome: Ongoing (Interventions Implemented as Appropriate) Problem: Pain (Stroke, Hemorrhagic) Goal: Acceptable Pain Control Outcome: Ongoing (Interventions Implemented as Appropriate) Problem: Respiratory Compromise (Stroke, Hemorrhagic) Goal: Effective Oxygenation and Ventilation Outcome: Ongoing (Interventions Implemented as Appropriate) Problem: Sensorimotor Impairment (Stroke, Hemorrhagic) Goal: Improved Sensorimotor Function Outcome: Ongoing (Interventions Implemented as Appropriate) Problem: Swallowing Impairment (Stroke, Hemorrhagic) Goal: Oral Intake without Aspiration Outcome: Ongoing (Interventions Implemented as Appropriate) Problem: Urinary Elimination Impaired (Stroke, Hemorrhagic) Goal: Effective Urinary Elimination Outcome: Ongoing (Interventions Implemented as Appropriate) Problem: Fall Injury Risk Goal: Absence of Fall and Fall-Related Injury Outcome: Ongoing (Interventions Implemented as Appropriate) Problem: Adult Inpatient Plan of Care Goal: Plan of Care Review Outcome: Ongoing (Interventions Implemented as Appropriate) Goal: Patient-Specific Goal (Individualized) Outcome: Ongoing (Interventions Implemented as Appropriate) Goal: Absence of Hospital-Acquired Illness or Injury Outcome: Ongoing (Interventions Implemented as Appropriate) Goal: Optimal Comfort and Wellbeing Outcome: Ongoing (Interventions Implemented as Appropriate) Goal: Readiness for Transition of Care Outcome: Ongoing (Interventions Implemented as Appropriate) * Plan of Care - Anoop Arias RN - 04/27/2023 7:46 PM EDT OUTCOME EVALUATION NOTE: OUTCOME SUMMARY: At the beginning of shift , pt was following command intermittently on all extremities, oriented toonly self. R EVD still in place open @ [id number], with clear pink drainage ranging 12-20 Q2, ICP 7-16. Unable to meet CPP goal of >60 d/t HR and SBP parameters; team aware. ~1000 marketing project manager consulted at bedside. First 1 degree heart block; Esmolol titrated to meet HR goals. Continuous Lasix drip. ~1300 pt became more lethargic, breathing shallow, placed on 4L NC, desating to 80s, provider at bedside to assess. PRN laxis given x2. Bilevel attempted then CPAP for awhile, still unable to manage airway, intubated at ~1330 team at bedside, placed on vent; VC , Xray done. ~1600 CT Head done , pt coughing on Vent, transitioned shortly to PS, desaturated to 78%, bagged and transitioned back on VC. Currently sedated on Propofol and fentanyl; withdraws to pain on all extremities. Javon running at 75mcg for MAP goal >60. PLAN MOVING FORWARD: VS Q1 ICP Q1 SBP goal <120 HR goal 50-60 NC Q4 Pulse check Q4 I/O Q4 Electrolyte q6 CPG GOAL OUTCOME EVALUATION: Problem: Restraint, Nonbehavioral (Nonviolent) Goal: Discontinuation Criteria Achieved Outcome: Ongoing (Interventions Implemented as Appropriate) Problem: Adjustment to Illness (Stroke, Hemorrhagic) Goal: Optimal Coping Outcome: Ongoing (Interventions Implemented as Appropriate) Problem: Bowel Elimination Impaired (Stroke, Hemorrhagic) Goal: Effective Bowel Elimination Outcome: Ongoing (Interventions Implemented as Appropriate) Problem: Cerebral Tissue Perfusion (Stroke, Hemorrhagic) Goal: Optimal Cerebral Tissue Perfusion Outcome: Ongoing (Interventions Implemented as Appropriate) Problem: Cognitive Impairment (Stroke, Hemorrhagic) Goal: Optimal Cognitive Function Outcome: Ongoing (Interventions Implemented as Appropriate) Problem: Communication Impairment (Stroke, Hemorrhagic) Goal: Effective Communication Skills Outcome: Ongoing (Interventions Implemented as Appropriate) Problem: Functional Ability Impaired (Stroke, Hemorrhagic) Goal: Optimal Functional Ability Outcome: Ongoing (Interventions Implemented as Appropriate) Problem: Pain (Stroke, Hemorrhagic) Goal: Acceptable Pain Control Outcome: Ongoing (Interventions Implemented as Appropriate) Problem: Respiratory Compromise (Stroke, Hemorrhagic) Goal: Effective Oxygenation and Ventilation Outcome: Ongoing (Interventions Implemented as Appropriate) Problem: Sensorimotor Impairment (Stroke, Hemorrhagic) Goal: Improved Sensorimotor Function Outcome: Ongoing (Interventions Implemented as Appropriate) Problem: Swallowing Impairment (Stroke, Hemorrhagic) Goal: Oral Intake without Aspiration Outcome: Ongoing (Interventions Implemented as Appropriate) Problem: Urinary Elimination Impaired (Stroke, Hemorrhagic) Goal: Effective Urinary Elimination Outcome: Ongoing (Interventions Implemented as Appropriate) Problem: Fall Injury Risk Goal: Absence of Fall and Fall-Related Injury Outcome: Ongoing (Interventions Implemented as Appropriate) Problem: Adult Inpatient Plan of Care Goal: Plan of Care Review Outcome: Ongoing (Interventions Implemented as Appropriate) Goal: Patient-Specific Goal (Individualized) Outcome: Ongoing (Interventions Implemented as Appropriate) Goal: Absence of Hospital-Acquired Illness or Injury Outcome: Ongoing (Interventions Implemented as Appropriate) Goal: Optimal Comfort and Wellbeing Outcome: Ongoing (Interventions Implemented as Appropriate) Goal: Readiness for Transition of Care Outcome: Ongoing (Interventions Implemented as Appropriate) * Care Management - Angelia Thomas MSW - 04/27/2023 2:59 PM EDT This HOSPITAL MEDICINE DIRECTOR provided support to Tete as pt was emergently reintubated. Tete expressed fearsas pt was much more interactive yesterday. Tete expressed hope for CT scan to yield positive results. This HOSPITAL MEDICINE DIRECTOR provided emotional support and validation. LUCIO Mercado [facility] Pager [phone] 04/27/23 3:03 PM * Consult Note - Angelia Salmon RN - 04/27/2023 9:30 AM EDTSummary: VAS consult Routine PICC dressing change, see image below and docflowsheet * Consult Note - Senthil Kulkarni MD - 04/27/2023 9:02 AM EDT Cardiology Consult Note Date of Consultation: 04/27/2023 Admit Date: 04/18/2023 Hospital Day 9 days Reason for Consult: Active Problems: Active Hospital Problems Diagnosis ICH (intracerebral hemorrhage) Resolved Hospital Problems No resolved problems to display. HPI: Myla 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 male with a limited pmhx due to lack of contact with medical system and no active outpatient medications who is presenting for R cerebellar IPH and intraventricular extension s/p R EVD placement on 04/17 who on CTA 04/21 was incidentally noted to have Type B aortic dissection. Patient is unable to provide significant history of interview. He is able to follow commands, however is minimal conversational. CTA 04/21 showed Type B aortic dissection with extension from L subclavian artery through to bilateral external iliac arteries. Vascular surgery consulted and following. BP currently at goal <120 with extensive double beta blockade, CCB, and additional clonidine. HR stably >60 despite beta blockade. Cardiology consulted for further recommendations regarding slowing HR iso Type B dissection to goal <60. Cardiac Medications: Carvedilol 25 mg BID Esmolol 200 mcg/kg/hr Diltiazem 120 mg Q6H Clevidipine 2 mg/hr Furosemide 5mg/hr Clonidine 0.3 mg Q8H Tamsulosin 0.4 mg daily Out-Patient Medications: No medications prior to admission. In-Patient Medications: cloNIDine 0.3 mg Per G Tube Q8H YUSUF carvediloL 25 mg Per NG tube Q12H magnesium hydroxide 30 mL Oral Daily QUEtiapine 12.5 mg Per NG tube BID dilTIAZem 120 mg Per NG tube Q6H YUSUF tamsulosin 0.4 mg Oral Daily polyethylene glycoL (MIRALAX) oral powder 17 g Oral Daily sodium chloride 4 mL Nebulization Q4H heparin (porcine) 5,000 Units Subcutaneous Q8H YUSUF lidocaine 1 patch Transdermal Q24H camphor-methyl salicyl-menthoL Topical (Top) BID senna-docusate 2 tablet Per NG tube BID thiamine 100 mg Intravenous Daily folic acid 1,000 mcg Per NG tube Daily multivitamin with minerals 1 tablet Per NG tube Daily furosemide 5 mg/hr (04/27/23 0800) esmoloL 200 mcg/kg/min (04/27/23 0813) tube feeding diet 65 mL/hr at 04/27/23 0800 clevidipine Stopped (04/26/232130) dexmedeTOMIDine 0.4 mcg/kg/hr (04/27/23 0800) Family History: No family history on file. Social History: Social History Socioeconomic History Marital status: Declines to List Spouse name: Not on file Number of children: Not on file Years of education: Not on file Highest education level: Not on file Occupational History Not on file Tobacco Use Smoking status: Unknown Smokeless tobacco: Not on file Substance and Sexual Activity Alcohol use: Defer Drug use: Defer Sexual activity: Defer Other Topics Concern Not on file Social History Narrative Not on file Social Determinants of Health Financial Resource Strain: Not on file Food Insecurity: No Food Insecurity (04/20/2023) Hunger Vital Sign Worried About Running Out of Food in the Last Year: Never true Ran Out of Food in the Last Year: Never true Transportation Needs: No Transportation Needs (04/20/2023) PRAPARE - Transportation Lack of Transportation (Medical): No Lack of Transportation (Non-Medical): No Physical Activity: Not on file Intimate Partner Violence: Not on file Housing Stability: Unknown (04/20/2023) Housing Stability Vital Sign Unable to Pay for Housing in the Last Year: No Number of Places Lived in the Last Year: Not on file Unstable Housing in the Last Year: No Review of Systems: 11 point ROS is either negative or as described in HPI Physical Exam: Last value Range last 8 hrs Temperature Temp: 37.4 ??C (99.3 ??F) Temp: [37.4 ??C (99.3 ??F)-37.4 ??C (99.4 ??F)] Heart Rate Heart Rate: 67 Heart Rate: [61-73] Blood Pressure BP: 106/55 BP: -- Respiratory Rate Resp: 24 Resp: [19-30] SpO2 SpO2: 95 % SpO2: [93 %-100 %] Intake/Output Summary (Last 24 hours) at 04/27/2023 0902 Last data filed at 04/27/2023 0800 Gross per 24 hour Intake 5719.14 ml Output 3962 ml Net 1757.14 ml Wt & BMI By Encounter Date Flowsheet Row Admission (Current) from 04/18/2023 in Neuro Critical Care Unit Level 3 [place] [facility] at [facility] Weight 122.7 kg (270 lb 8.1 oz) 1 04/27/2023 0600 General: Pleasant male in NAD Cardiac: RRR, S1/S2 of normal character and amplitude, no m/r/g. Respiratory: Adequate air entry throughout. No adventitious sounds Abdominal: Soft and non-tender with no organomegaly. Normal bowel sounds Extremities: No atrophy, no clubbing/cyanosis, LE edema. Neurology: Without focal deficit EC04/22 Suspected arm lead reversal, QTC 495, however obscured by RBBB, vent rate 80 ECHO: TTE 04/19/23 Interpretation Summary -There is severe concentric left ventricular hypertrophy. Left ventricular systolic function is normal. The left ventricular ejection fraction is 70% by Hester's biplane. There are no segmental wall motion abnormalities. -The right ventricle is probably normal in size. Right ventricular function is probably normal. -No significant valve disease. -The aortic root is dilated. The diameter at the level of the sinuses of Valsalva is 4.2 cm. The ascending aorta is dilated. The maximum diameter of the proximal ascending aorta is 4.5 cm. -No comparison study is available. Right Heart Cath Numbers: Earliest set: Most recent set: CTA 04/22/23 IMPRESSION 1. 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 2. No active extravasation, however , there is some apparent high density within a trace left pleural fluid collection possibly hemothorax and raises concern for early aneurysm leak/rupture into the pleural space. 3. Fusiform dilatation of the descending thoracic aorta measuring up to 4.7-4.8 cm. In maximal diameter Recent Labs 04/26/23 0020 04/25/23 0110 04/24/23 0020 WBC 6.5 6.8 7.7 HGB 12.2* 12.3* 12.3* HCT 36.3* 37.0* 37.0* PLATELET 186 184 181 Recent Labs 04/27/23 0557 04/27/23 0045 04/26/23 1830 04/26/23 0626 04/26/23 0020 04/25/23 1221 04/25/23 0110 04/24/23 0020 NA 129* 133* 135 < > 134* < > 136 139 K 4.2 3.8 4.1 < > 4.2 < > 4.1 4.5 CL 100 102 104 < > 103 < > 105 107 CO2 20* 22 21* < > 23 < > 23 21* BUN -- -- -- -- 24* -- 17 24* CREATININE -- -- -- -- 1.07 -- 0.93 0.93 < > = values in this interval not displayed. Recent Labs 04/23/23 0024 AST 28 ALT 26 ALKPHOS 64 BILITOT 0.4 BILIDIR 0.2 Recent Labs 04/27/23 0557 04/27/23 0045 04/26/23 1830 04/26/23 1250 04/26/23 0020 04/25/23 0110 04/24/23 0020 CALCIUM -- -- -- -- 8.4* 8.6 8.4* MAGNESIUM 0.92 0.97 1.11* < > 0.71 0.75 0.75 PHOS -- -- -- -- 2.4* 2.6 3.0 < > = values in this interval not displayed. Recent Labs 04/23/23 0024 INR 1.1 PT 12.7* PTT 36 No results for input(s): CK, TROPONINT in the last 168 hours. No results found for: PROBNP Assessment/Recommendations: Myla 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 male with a limited pmhx due to lack of contact with medical system and no active outpatient medications who is presenting for R cerebellar IPH and intraventricular extension s/p R EVD placement on 04/17 who on CTA 04/21 was incidentally noted to have Type B aortic dissection. Patient has been medically managed for Type B dissection to date with goal systolic BP <120 and goal HR <60. Currently on AV elpidio blockade/CCB with good reduction in BP to below 120 systolic (currently 90s-110s via art line). HR is not yet at goal and maintaining rate of 70s-80s. To further reduce shear stress iso Type B dissection, would introduce Ivabradine which selectively inhibits If current on SA node. Given pharmacodynamics of medication, would likely see impact after 1-2 hours ofinitiation. Relevant side effects of medication are bradycardia (intended effect), hypertension (monitoring), atrial fibrillation (monitoring). May increase to 7.5 mg BID for further reduction in HR. Cardiology will continue to follow. Recommendations - Ivabradine 5 mg BID, for SA elpidio blockade - Target systolic BP <120, HR <60 iso Type B dissection Senthil Kulkarni MD Internal Medicine, PGY-1 04/27/2023 Associated attestation - Trang Echeverria MD - 04/27/2023 6:03 PM EDT Cardiology Attending Addendum: I have personally interviewed and examined the patient and reviewed appropriate data, including labs, ECGs and other diagnostic studies. I agree with the principal findings documented herein. The assessment and plan were formulated in discussion with me. Cardiology consulted for assistance with HR and BP control iso type B aortic dissection and intracranial hemorrhage. Plan: -Add ivabradine 5mg BID, can uptitrate to 7.5mg BID to achieve HR < 60bpm as desired -Wean esmolol as tolerated. -Carvedilol could also be increased to 50mg BID if needed given patient size Trang Echeverria MD Pager [phone] Clinic: [phone] 04/27/23 6:02 PM * Care Management - Melchor Frazier RN - 04/27/2023 7:25 AM EDT OFFICE OF CARE MANAGEMENT PROGRESS NOTE LOS: Hospital Day 9 days Chart reviewed, care reviewed with primary team and at interdisciplinary rounds. Patient continues to meet inpatient level of care related to: Q 1 hour interventions and remains in the hospital related to provider note of 04/27/2023: INTERVAL HX/ROS: Neuro stable (encephalopathic) CTH demonstrates continued hemorrhage burden with interval evolution No ICP issues Doing well from neurologic standpoint, MRI done with no evidence of mass lesion. Hemorrhagic strokeworkup per NCCU/Neurology. ICU Needs: Q1 hour interventions, ICU specific devices / therapies, mechanically ventilated, vasoactive medications Functional status prior to admission: Independent Home Environment: Others in the home: spouse. Current Living Arrangements: home/apartment/condo. Accessibility Concerns: 0 PATRICIA,. Current Functional Ability: Assistive Person and Equipment DME used at home: (has grab bars available) DME Needed at Discharge: Pending PT / OT Recommendations Last Physical Therapy Recommendation: acute rehabilitation facility, swing bed rehabilitation facility with to be determined Last Occupational Therapy Recommendation: acute rehabilitation facility with to be determined Patient is insured through: Primary Insurance: MEDICARE Payor: MEDICARE / Plan: MEDICARE PART A & B / Product Type: *No Product type* / Secondary Insurance: BLUE CROSS BLUE [facility] Prescription Coverage: Yes Preferred Pharmacy: [id number] - [place], [place] - [address] [id number] Plan for discharge is: Acute Rehab Agency Referrals & Follow-up Care: [facility] Acute Rehabilitation and Sub-Acute (Swing) Rehab Levels of Care [address] [place] [address] Transportation: pending needs closer to discharge Barriers to discharge: Discharge planning, ICU Needs Psych: Adjustment to diagnosis/illness, Decision-making, Coping/stress, Grief/loss, Cognitive/perceptual Supports: Caregiver support RN/CM following with HOSPITAL MEDICINE DIRECTOR. Pending need for AD once clear vs guardianship needs Spouse has found pt PCP (in her provider office) for him Plan going forward: Service Care Management will continue to follow and assist with discharge planning and coordination of care as indicated. Anticipated Date of Discharge: 05/01/2023 Melchor Frazier RN RN/CM - Cellphone: [phone] Pager: [phone] Covering Service RN/CM * Plan of Care - Anoop Arias RN - 04/26/2023 6:51 PM EDT OUTCOME EVALUATION NOTE: OUTCOME SUMMARY: Pt remain on sedation; restless RASS +1, follows command on all extremities, oriented to only self,R EVD in place open @ [id number], with pink drainage ranging 8-25 Q2, ICP 13-16. CT scan done per order. SB with 1 degree heart block; Cleviprex and Esmolol titrated to meet HR (50-60) and SBP (<120)goals; PRN lopressor given x1. Lasix given x1. On NC 1L. Electrolyte replaced. [place] draining adequate UOP. Family at bedside. PLAN MOVING FORWARD: VS Q1 ICP Q1 SBP goal <120 HR goal 50-60 NC Q4 Pulse check Q4 I/O Q4 Electrolyte q6 CPG GOAL OUTCOME EVALUATION: Problem: Restraint, Nonbehavioral (Nonviolent) Goal: Discontinuation Criteria Achieved Outcome: Ongoing (Interventions Implemented as Appropriate) Problem: Adjustment to Illness (Stroke, Hemorrhagic) Goal: Optimal Coping Outcome: Ongoing (Interventions Implemented as Appropriate) Problem: Bowel Elimination Impaired (Stroke, Hemorrhagic) Goal: Effective Bowel Elimination Outcome: Ongoing (Interventions Implemented as Appropriate) Problem: Cerebral Tissue Perfusion (Stroke, Hemorrhagic) Goal: Optimal Cerebral Tissue Perfusion Outcome: Ongoing (Interventions Implemented as Appropriate) Problem: Cognitive Impairment (Stroke, Hemorrhagic) Goal: Optimal Cognitive Function Outcome: Ongoing (Interventions Implemented as Appropriate) Problem: Communication Impairment (Stroke, Hemorrhagic) Goal: Effective Communication Skills Outcome: Ongoing (Interventions Implemented as Appropriate) Problem: Functional Ability Impaired (Stroke, Hemorrhagic) Goal: Optimal Functional Ability Outcome: Ongoing (Interventions Implemented as Appropriate) Problem: Pain (Stroke, Hemorrhagic) Goal: Acceptable Pain Control Outcome: Ongoing (Interventions Implemented as Appropriate) Problem: Respiratory Compromise (Stroke, Hemorrhagic) Goal: Effective Oxygenation and Ventilation Outcome: Ongoing (Interventions Implemented as Appropriate) Problem: Sensorimotor Impairment (Stroke, Hemorrhagic) Goal: Improved Sensorimotor Function Outcome: Ongoing (Interventions Implemented as Appropriate) Problem: Swallowing Impairment (Stroke, Hemorrhagic) Goal: Oral Intake without Aspiration Outcome: Ongoing (Interventions Implemented as Appropriate) Problem: Urinary Elimination Impaired (Stroke, Hemorrhagic) Goal: Effective Urinary Elimination Outcome: Ongoing (Interventions Implemented as Appropriate) Problem: Fall Injury Risk Goal: Absence of Fall and Fall-Related Injury Outcome: Ongoing (Interventions Implemented as Appropriate) Problem: Adult Inpatient Plan of Care Goal: Plan of Care Review Outcome: Ongoing (Interventions Implemented as Appropriate) Goal: Patient-Specific Goal (Individualized) Outcome: Ongoing (Interventions Implemented as Appropriate) Goal: Absence of Hospital-Acquired Illness or Injury Outcome: Ongoing (Interventions Implemented as Appropriate) Goal: Optimal Comfort and Wellbeing Outcome: Ongoing (Interventions Implemented as Appropriate) Goal: Readiness for Transition of Care Outcome: Ongoing (Interventions Implemented as Appropriate) * Plan of Care - Marta Hester RN - 04/26/2023 6:57 AM EDT OUTCOME EVALUATION NOTE: OUTCOME SUMMARY: Patient continued to wean down on Esmolol and is now off, restarted Cleviprex d/t increase of SBP>120. Dose of Diltiazem held due to bradycardia 53 per PA Akash D. TF remain at goal. Patient has nothad a BM, despite giving bowel Regimen. Patient remains in restraints due to impulsivity and confusion. PLAN MOVING FORWARD: Continue to wean Precedex as tolerated. Plan for Head CT when ICP's improve. INDIVIDUALIZED FALL PREVENTION INTERVENTIONS: Patient-specific fall risk factors per assessment: [current deficits]: Confuse and unaware of limitations. Assistance [level of assistance required for transfers and ambulation]: Max assist. Supervision [direct monitoring required during toileting and ADLs]: Patient is max assist Surveillance [continuous indirect monitoring]: patient remains in bilateral wrist restraints. Patient-specific fall prevention interventions for sensory deficits provided, if applicable: [X] Yes CARE PLAN GOAL OUTCOME EVALUATION: Problem: Restraint, Nonbehavioral (Nonviolent) Goal: Discontinuation Criteria Achieved Outcome: Ongoing (Interventions Implemented as Appropriate) Problem: Adjustment to Illness (Stroke, Hemorrhagic) Goal: Optimal Coping Outcome: Ongoing (Interventions Implemented as Appropriate) Problem: Bowel Elimination Impaired (Stroke, Hemorrhagic) Goal: Effective Bowel Elimination Outcome: Ongoing (Interventions Implemented as Appropriate) Problem: Cerebral Tissue Perfusion (Stroke, Hemorrhagic) Goal: Optimal Cerebral Tissue Perfusion Outcome: Ongoing (Interventions Implemented as Appropriate) Problem: Cognitive Impairment (Stroke, Hemorrhagic) Goal: Optimal Cognitive Function Outcome: Ongoing (Interventions Implemented as Appropriate) Problem: Communication Impairment (Stroke, Hemorrhagic) Goal: Effective Communication Skills Outcome: Ongoing (Interventions Implemented as Appropriate) Problem: Functional Ability Impaired (Stroke, Hemorrhagic) Goal: Optimal Functional Ability Outcome: Ongoing (Interventions Implemented as Appropriate) Problem: Pain (Stroke, Hemorrhagic) Goal: Acceptable Pain Control Outcome: Ongoing (Interventions Implemented as Appropriate) Problem: Respiratory Compromise (Stroke, Hemorrhagic) Goal: Effective Oxygenation and Ventilation Outcome: Ongoing (Interventions Implemented as Appropriate) Problem: Sensorimotor Impairment (Stroke, Hemorrhagic) Goal: Improved Sensorimotor Function Outcome: Ongoing (Interventions Implemented as Appropriate) Problem: Swallowing Impairment (Stroke, Hemorrhagic) Goal: Oral Intake without Aspiration Outcome: Ongoing (Interventions Implemented as Appropriate) Problem: Urinary Elimination Impaired (Stroke, Hemorrhagic) Goal: Effective Urinary Elimination Outcome: Ongoing (Interventions Implemented as Appropriate) Problem: Fall Injury Risk Goal: Absence of Fall and Fall-Related Injury Outcome: Ongoing (Interventions Implemented as Appropriate) Problem: Adult Inpatient Plan of Care Goal: Plan of Care Review Outcome: Ongoing (Interventions Implemented as Appropriate) Goal: Patient-Specific Goal (Individualized) Outcome: Ongoing (Interventions Implemented as Appropriate) Goal: Absence of Hospital-Acquired Illness or Injury Outcome: Ongoing (Interventions Implemented as Appropriate) Goal: Optimal Comfort and Wellbeing Outcome: Ongoing (Interventions Implemented as Appropriate) Goal: Readiness for Transition of Care Outcome: Ongoing (Interventions Implemented as Appropriate) * Care Management - Melchor Frazier RN - 04/25/2023 1:29 PM EDT RN/CM spoke with Gina Acosta (Spouse) - [phone] (M) She will follow up with her provider to see if they'll accept her spouse as a patient. If so, she'll call me with that information so that a PCP can be added for his post-hospital and post-rehab needs. She would like for him to have AD completed once he is medically stable to do so. ~~~~~~~~~~~~~~~~~~~~~~~~~~~~~~~~~~~~~~~~~~~~~~~~~~~~~~~~~~~~~~~~~~~~~~~~ Based on discussions with the multi-disciplinary healthcare team, the patient would benefit from Acute Rehab level of care at discharge. I have met with the floor representative to: discuss discharge planning needs. provide the [facility], Office of Care Management letter from the Analytics Senior Manager pertaining to rehab referrals. provide a letter describing our affiliations within the [facility] and educate about their right to choose where referrals are sent. provide the CMS Star Quality Rating handout. review the different levels of rehab including SNF, swing, and acute. provide a list of facilities within their preferred geographic area. request that they provide at least three choices for referral. They have requested referrals to: [facility] and Sub-Acute (Swing) Rehab Levels of Care [address] [place] [address] Anticipated discharge date: 05/01/2023 Note routed to a Reed Maker who will communicate referrals to facilities and provide any required information. Transportation: to be determined closer to discharge DC planning post-rehab: return home; Spouse works in tax associate attorney's office - she'll discuss with them to see if she can supervisor rework vs FMLA. She'll be following up with family as well for additional assistance at home. Melchor Frazier RN RN/CM - Cellphone: [phone] Pager: [phone] Covering Service RN/CM Update: 3:18 PM Spouse has called back: [facility] Provider: Brien Remy APRN Information sent to Sree to add. * Care Management - Melchor Frazier RN - 04/25/2023 1:10 PM EDT RN/CM has LVM with Gina Acosta (Spouse) - [phone] ([phone]) to discuss discharge planning for rehab needs. Pending call back. Melchor Frazier RN RN/CM - Cellphone: [phone] Pager: [phone] Covering Service RN/CM * Care Management - Angelia Thomas MSW - 04/25/2023 10:24 AM EDT This HOSPITAL MEDICINE DIRECTOR notified that pt's had some questions. This HOSPITAL MEDICINE DIRECTOR met with pt's at bedside. Pt unable to meaningfully participate in conversation at this time. reports that pt has been drinking for years but that it has gotten worse since covid as pt has been home and isolated more. Pt's reports that he will not admit he has a problem and that he does not drink in front of her. HOSPITAL MEDICINE DIRECTOR notified her that this HOSPITAL MEDICINE DIRECTOR did plan to do EtOH consultonce appropriate; reports pt will deny drinking problem. also expressing concern over pt's depression, asking if pt can be prescribed antidepressants here. This HOSPITAL MEDICINE DIRECTOR explained that psych/BIT is voluntary here and that if pt would like to speak to them once appropriate, we can ask team for referral. also asking about PCP as pt has never seen a doctor. States that pt would prefer a male likely. sees PCP through [facility]; she would like pt's PCP to be there as well if possible. reports concern that pt will run out of meds between hospital dc and first PCP appt; this HOSPITAL MEDICINE DIRECTOR to make team aware of possible gap in care. also asking about post-dc rehab facility and transportation there. This HOSPITAL MEDICINE DIRECTOR explained facilityprocess and transportation process and explained RN CM role. reports no other questions at this time. HOSPITAL MEDICINE DIRECTOR to remain available. [facility] Merc[facility] Pager [phone] 04/25/23 10:35 AM * Consult Note - Narayan Alvarez MD - 04/25/2023 4:59 AM EDT Vascular Surgery Inpatient Consult Note History of Present Illness: Myla 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 male with AUD, otherwise unknown PMHx who was admitted for right cerebellar IPH. Initial Bps were noted to be in the 200s. Was started on a nicard gtt for BP control. Was subsequently intubated at the OSH for airway protection given worsening somnolence. Imaging of carotids and [place] reveal unexpected finding of aortic dissection. CTA CA with type B dissection extending from subclav to external iliac. Thus vascular surgery was called. Patient extubated today, though continues on CIWA protocol. He is unable to participate in an exam. Interval history/ 24 hour events - NAEON relayed to vascular - Maintaining impulse control parameters, 200 Esmolol, Clevidipine 8, and 1.7 dex. Scoring on CIWA - no s/s malperfusion of complicated dissection - On 2L NC, ICPs 10-15 - Voiding, having BMs PMH: No past medical history on file. Patient Active Problem List Diagnosis Code ICH (intracerebral hemorrhage) I61.9 PSH: No past surgical history on file. Review of Systems: As stated above, otherwise ten system review negative Vitals: Last Value Range last 24 hrs Temperature Temp: 36.8 ??C (98.3 ??F) Temp: [36.5 ??C (97.7 ??F)-37.2 ??C (98.9 ??F)] Heart Rate Heart Rate: 61 Heart Rate from SpO2: 61 bpm Heart Rate: [57-69] Heart Rate From SP02 Min: 57 bpm Max: 69 bpm Blood Pressure BP: 110/58 BP: (110-125)/(58-67) BP (Arterial Line): (88-133)/(53-81) Respiratory Rate Resp: 23 Resp: [17-33] SpO2 SpO2: 98 % SpO2: [90 %-98 %] O2 Device O2 Device: Nasal cannula Weight/BMI Weight: -- Body mass index is 36.99 kg/m??. Intake/Output Summary (Last 24 hours) at 04/25/2023 0459 Last data filed at 04/25/2023 0400 Gross per 24 hour Intake 6089.55 ml Output 3861 ml Net 2228.55 ml Sips and Chips (Give Meds) Physical Exam: GEN: resting comfortably in bed, pleasant, conversant, NAD HEENT: normocephalic, atraumatic CHEST: comfortable work of breathing on NC CV: regular rate, well perfused ABD: soft, moderately distended, no grimace to palpation EXTR: moving all extremities spontaneously VASC: BL femoral pulses 2+; palpable pulses in all four extremities 2+ NEURO: awake, nonfocal, moves all extremities spontaneously Data Reviewed: Labs: Recent Labs 04/25/2310904/24/230 04/23/23 002 WBC 6.8 7.7 8.4 HGB 12.3* 12.3* 13.0* HCT 37.0* 37.0* 39.7* PLATELET 184 181 190 PT -- -- 12.7* INR -- -- 1.1 PTT -- -- 36 Recent Labs 04/25/23 0110 04/24/230 04/23/23 002 NA 136 139 142 K 4.1 4.5 3.8 CL 105 107 106 CO2 23 21* 25 BUN 17 24* 29* CREATININE 0.93 0.93 1.04 GLUCOSE 142 124 134 CALCIUM 8.6 8.4* 8.7 MAGNESIUM 0.75 0.75 0.80 PHOS 2.6 3.0 3.2 Recent Labs 04/23/23 0024 PROT 7.5 ALBUMIN 3.5 BILITOT 0.4 BILIDIR 0.2 ALKPHOS 64 AST 28 ALT 26 Recent Labs 04/23/23 0024 LACTATEVEN 1.4 No results for input(s): PHART, CKH4JUS, PO2ART, UYG2DFI in the last 72 hours. Studies: CTA CAP 04/22/23- IMPRESSION 1. 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 2. No active extravasation, however , there is some apparent high density within a trace left pleural fluid collection possibly hemothorax and raises concern for early aneurysm leak/rupture into the pleural space. 3. Fusiform dilatation of the descending thoracic aorta measuring up to 4.7-4.8 cm. In maximal diameter Impression and Recommendations: Myla 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 male with AUD, otherwise unknown PMHx who was admitted for right cerebellar IPH ISO hypertension emergency. 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 Mesenteric branches extend from the true lumen. He is being managed with strict impulse control and has nosigns or symptoms of malperfusion of complicated dissection. As such there is no role for vascular surgery intervention Recommendations: - No vascular surgery intervention indicated - Strict Impulse control with the following parameters: SBP < 120 and HR<60 - Consider Cardiology (Vascular medicine) consult for management of anti- hypertensives inpatient and outpatient follow up - start ASA 81 when safe to do so from a neuro perspective - all other care per primary - We have arranged ~3 month follow up with interval CTA (ordered) Vascular surgery service will sign off. Please reach out with further questions or concerns Discussed with Dr. Enoch Alvarez MD 04/25/2023 Vascular Surgery Service [phone] * Plan of Care - Marta Hester RN - 04/25/2023 2:42 AM EDT OUTCOME EVALUATION NOTE: OUTCOME SUMMARY: Patient started on prn seroquel, helps with agitation. CIWA scoring. Continue on Dex, esmolol and cleviprex. TF at Goal PLAN MOVING FORWARD: Use prn seroquel BID for agitation. Repeat CT head when ICP's are stable INDIVIDUALIZED FALL PREVENTION INTERVENTIONS: Patient-specific fall risk factors per assessment: [current deficits]: Confused and does not know his limitations. Assistance [level of assistance required for transfers and ambulation]: max assist Supervision [direct monitoring required during toileting and ADLs]: Direct monitoring and max assistance Surveillance [continuous indirect monitoring]: Q1 icp checks/neuro Patient-specific fall prevention interventions for sensory deficits provided, if applicable: [X] Yes CARE PLAN GOAL OUTCOME EVALUATION: Problem: Restraint, Nonbehavioral (Nonviolent) Goal: Discontinuation Criteria Achieved Outcome: Ongoing (Interventions Implemented as Appropriate) Problem: Adjustment to Illness (Stroke, Hemorrhagic) Goal: Optimal Coping Outcome: Ongoing (Interventions Implemented as Appropriate) Problem: Bowel Elimination Impaired (Stroke, Hemorrhagic) Goal: Effective Bowel Elimination Outcome: Ongoing (Interventions Implemented as Appropriate) Problem: Cerebral Tissue Perfusion (Stroke, Hemorrhagic) Goal: Optimal Cerebral Tissue Perfusion Outcome: Ongoing (Interventions Implemented as Appropriate) Problem: Cognitive Impairment (Stroke, Hemorrhagic) Goal: Optimal Cognitive Function Outcome: Ongoing (Interventions Implemented as Appropriate) Problem: Communication Impairment (Stroke, Hemorrhagic) Goal: Effective Communication Skills Outcome: Ongoing (Interventions Implemented as Appropriate) Problem: Functional Ability Impaired (Stroke, Hemorrhagic) Goal: Optimal Functional Ability Outcome: Ongoing (Interventions Implemented as Appropriate) Problem: Pain (Stroke, Hemorrhagic) Goal: Acceptable Pain Control Outcome: Ongoing (Interventions Implemented as Appropriate) Problem: Respiratory Compromise (Stroke, Hemorrhagic) Goal: Effective Oxygenation and Ventilation Outcome: Ongoing (Interventions Implemented as Appropriate) Problem: Sensorimotor Impairment (Stroke, Hemorrhagic) Goal: Improved Sensorimotor Function Outcome: Ongoing (Interventions Implemented as Appropriate) Problem: Swallowing Impairment (Stroke, Hemorrhagic) Goal: Oral Intake without Aspiration Outcome: Ongoing (Interventions Implemented as Appropriate) Problem: Urinary Elimination Impaired (Stroke, Hemorrhagic) Goal: Effective Urinary Elimination Outcome: Ongoing (Interventions Implemented as Appropriate) Problem: Fall Injury Risk Goal: Absence of Fall and Fall-Related Injury Outcome: Ongoing (Interventions Implemented as Appropriate) Problem: Adult Inpatient Plan of Care Goal: Plan of Care Review Outcome: Ongoing (Interventions Implemented as Appropriate) Goal: Patient-Specific Goal (Individualized) Outcome: Ongoing (Interventions Implemented as Appropriate) Goal: Absence of Hospital-Acquired Illness or Injury Outcome: Ongoing (Interventions Implemented as Appropriate) Goal: Optimal Comfort and Wellbeing Outcome: Ongoing (Interventions Implemented as Appropriate) Goal: Readiness for Transition of Care Outcome: Ongoing (Interventions Implemented as Appropriate) * Care Management - Angelia Thomas MSW - 04/24/2023 4:06 PM EDT This HOSPITAL MEDICINE DIRECTOR met with pt and for adjustment to illness/emotional support. Pt alert to self and unable to meaningfully interact. Pt's Tete expressed difficulty with hospitalization, reports she and pt have been 40+ years. Tete denies needs at this time, reports her kids are helping her at home and that she returns home each night to sleep and eat. HOSPITAL MEDICINE DIRECTOR to remain available for support as appropriate. [facility] Merc[facility] SW Pager [phone] 04/24/23 4:09 PM * Initial Assessments - Tiarra Vasquez, TREASURY CONSULTANT - 04/24/2023 10:12 AM EDT Speech Therapy Clinical Swallow Evaluation Patient Profile: Myla 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 He was intubated at OSH for airway protection given worsening somnolence and transferred to [facility] on 04/18/2023. Patient was extubated on 04/18 and then re-intubated later that day for hypoxic respiratory failure with secretion involvement (extubated successfully on 04/21; 4 days total). TREASURY CONSULTANT was consulted on 04/22 for a post-extubation clinical swallow evaluation. Prior Level of Function: Patient was unable to provide relevant history due to altered mental status. His , Gina, denied any history of dysphagia prior to this admission. Per Gina, patient is a my way or the highway kind of matthew. Relevant Imaging: CT Angiogram [place] & [place] (04/21/2023) IMPRESSION 1. Unexpected finding. Partially visualized descending thoracic aorta demonstrates crescentic hypoattenuation with luminal narrowing concerning for dissection versus significant mural thrombus. CTA chest/abdomen recommended for further evaluation. Discussed with Filiberto Epstein NP by Dr. Michelle Munoz over the telephone at 04/22/2023 5:12 PM and verified that the results were understood. 2. Recommend retracting endotracheal tube by inch of the terminates near the origin of the right mainstem bronchus. 3. Possible mild irregularity of the left P2 VALUE STREAM COACH segment. Mild irregularity of the intradural vertebral arteries. No central branch occlusion. 4. Similar volume of intracranial hemorrhage. Unchanged caliber of the ventricles. Subjective: Patient was agitated and frequently swearing, requiring consistent redirection for evenminimal participation in the evaluation. Objective: Patient seen for evaluation today. Pain: No acute signs of discomfort Respiratory Status: Nasal canula 2 L/min, satting 92-95% Vision: aided with glasses Hearing: Functional for evaluation Current Diet: NPO diet (Give Meds) Feeding and Oral Care: Patient is dependent due to a combination of post-stroke weakness, generalized deconditioning, and altered mental status requiring bilateral wrist restraints. He quickly becameagitated during feeding attempts. With wrist restraints removed, he self-fed a limited amount of POgiven intermittent cues and/or physical assistance. Cognitive-Linguistic Status: A&Ox1 (self only) Reduced attention span Irritable, easily frustrated Poor insight into functional limitations Sluggish verbal and motor responses Occasionally verbalized basic wants and needs Follows Commands: Unable to / difficult to assess at this time; challenging to differentiate between physical and cognitive ability and behavioral factors Positioning: HOB at 50 degrees (RN adjusted EVD), listing to the right requiring frequent repositioning Oral Motor Examination: Unable to assess due to limited cooperation in exam. Suspect generalized weakness based on overall presentation. Patient's voice was clear with good intensity and his cough was productive. Provided oral care for removal of thick secretions from the tongue and palate. Bolus Presentation(s) Ice chips x1 Thin liquid via straw x3, via cup (does not like straws) x1 Puree via 1/2 tsp x2 Oral Preparatory Phase Mastication: N/A Oral transit: Prolonged and sluggish with puree Oral containment: Incomplete labial seal during oral suction, adequate with PO intake Oral stasis: Unable to visualize due to patient cooperation Pharyngeal Phase Swallow initiation: Sluggish Vocal quality change: Yes, delayed wet vocal quality with puree Cough / throat clear: Yes, delayed coughing with puree; none with water Pt complaint of food getting stuck: Unable to report Fatigue across trials: Yes Respiratory rate and respiratory swallow pattern: Intermittent shortness of breath between trials Esophageal Phase Unable to comment meaningfully with limited trials Compensatory Techniques: Patient was unable to return demonstrate effective use of strategies secondary to current mental status. RISK FACTORS FOR ASPIRATION PNEUMONIA X Stroke or other neurological disease + number decayed teeth, poor oral hygiene COPD, CHF X Dependency for oral care and/or feeding GI disease, especially esophageal dysmotility X Reduced mobility, bed bound Active tobacco use X Use of tube feed, especially via NGT/DHT Immunocompromised HOB below 30 degrees X Use of sedating medications or PPI UTI X Reduced level of alertness and/or delirium X Advanced age Education: Discussed effects of weakness, sedation, and altered mental status on swallow function with patient's , Gina, who verbalized understanding. Reviewed plan for continued reassessment and potential for diet advancement as tolerated. Patient status and swallow recommendations were discussed with nursing. Paged the primary team with updated diet recommendations. Assessment: Myla Acosta was seen for a clinical swallow evaluation. He was agitated and presented with altered mental status characterized by inattention, disorientation, and poor insight into hisfunctional limitations. Oral motor examination was limited by patient participation with informal observations revealing generalized weakness, a productive cough, and strong vocal quality. PO trials were similarly limited by patient participation. Myla became agitated with feeding attempts and ultimately self-administered trials given intermittent cues and/or physical assistance to prevent spilling. Over the course of an hour, he accepted approximately five sips of water and two teaspoons of pudding. Myla presented with sluggish oral manipulation and overt signs of aspiration with puree. Heseemed to tolerate ice chips and small sips of water well from a respiratory standpoint. Suspect dysphagia is currently multifactorial in the setting of post-stroke weakness, generalized deconditioning, altered mental status, and potentially delirium, and will likely continue to evolve with progression of neurological symptoms. For now, recommend starting sips and chips with consistentuse of aspiration precautions below. Myla will continue to require alternative nutrition via DHT. We will continue to follow for frequent reassessment. Diagnosis: Oral and suspected pharyngeal dysphagia 2/2 post-stroke weakness, generalized deconditioning, and altered mental status Recommendations: Diet: Sips / chips PO Medications: IV or other alternative means only Aspiration Precautions: Sit upright for PO intake Small sips, single ice chips Excellent oral care to reduce risk of aspiration pneumonia Delirium Precautions: Orientation: Provide visual and hearing aids Utilize cues such as calendars and clocks Encourage communication and reorient patient repeatedly Have familiar objects from patient's home in room Attempt consistency in nursing staff Allow television during the day with daily news Environment: Sleep hygiene (dim light at nighttime, bright during the day) Limit excess noise (staff, equipment, visitors at night) Ambulate or mobilize patient early and often Pt will benefit from continued TREASURY CONSULTANT services while hospitalized. Speech Therapy Goals: (To be met by discharge) Pt will tolerate least restrictive diet without further respiratory decompensation. Caregiver will be independent with aspiration precautions. Pt will maintain hydration / nutrition with optimal safety and efficiency. Caregiver will follow anti-delirium precautions with assist from staff as needed. Plan: Therapy Frequency (TREASURY CONSULTANT Eval): 3-5 times/wk Patient's is in agreement with the plan of care. Total Minutes (Speech Language Pathology): 60 Thanks for the opportunity to contribute to this patient's care. Please feel free to page me with any questions or concerns. Tiarra Vasquez MS, [facility]-TREASURY CONSULTANT Speech-Language Pathologist Inpatient Rehabilitation Pager # [phone] * Consult Note - Narayan Alvarez MD - 04/24/2023 9:11 AM EDT Vascular Surgery Inpatient Consult Note History of Present Illness: Myla 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 male with AUD, otherwise unknown PMHx who was admitted for right cerebellar IPH. Initial Bps were noted to be in the 200s. Was started on a nicard gtt for BP control. Was subsequently intubated at the OSH for airway protection given worsening somnolence. Imaging of carotids and [place] reveal unexpected finding of aortic dissection. CTA CA with type B dissection extending from subclav to external iliac. Thus vascular surgery was called. Patient extubated today, though continues on CIWA protocol. He is unable to participate in an exam. Interval history/ 24 hour events - NAEON relayed to vascular - DHT placed yesterday for enteral access - Maintaining impulse control parameters, 200 Esmolol, Clevidipine 8, and 1.5- 1.7 dex - On Norvaac, Coreg, Lisinopril - increased doses; also has needed use of PRNs - On 2L NC, ICPs 10-15 - Voiding, having BMs PMH: No past medical history on file. Patient Active Problem List Diagnosis Code ICH (intracerebral hemorrhage) I61.9 PSH: No past surgical history on file. Review of Systems: As stated above, otherwise ten system review negative Vitals: Last Value Range last 24 hrs Temperature Temp: 36.6 ??C (97.8 ??F) Temp: [36.5 ??C (97.7 ??F)-37.1 ??C (98.8 ??F)] Heart Rate Heart Rate: 63 Heart Rate from SpO2: 65 bpm Heart Rate: [60-68] Heart Rate From SP02 Min: 58 bpm Max: 105 bpm Blood Pressure BP: 115/53 BP: -- BP (Arterial Line): (93-122)/(49-66) Respiratory Rate Resp: 25 Resp: [14-30] SpO2 SpO2: 93 % SpO2: [92 %-100 %] O2 Device O2 Device: Nasal cannula Weight/BMI Weight: -- Body mass index is 36.99 kg/m??. Intake/Output Summary (Last 24 hours) at 04/24/2023 0911 Last data filed at 04/24/2023 0800 Gross per 24 hour Intake 6106.6 ml Output 1880 ml Net 4226.6 ml NPO diet (Give Meds) Physical Exam: GEN: resting comfortably in bed, pleasant, conversant, NAD HEENT: normocephalic, atraumatic CHEST: comfortable work of breathing on NC CV: regular rate, well perfused ABD: soft, moderately distended, no grimace to palpation EXTR: moving all extremities spontaneously VASC: BL femoral pulses 2+; palpable pulses in all four extremities 2+ NEURO: awake, nonfocal, moves all extremities spontaneously Data Reviewed: Labs: Recent Labs 04/24/23 0020 04/23/23 00204/22/23 0139 WBC 7.7 8.4 8.1 HGB 12.3* 13.0* 12.5* HCT 37.0* 39.7* 37.9* PLATELET 181 190 170 PT -- 12.7* -- INR -- 1.1 -- PTT -- 36 -- Recent Labs 04/24/23 0020 04/23/23 0024 04/22/23 0300 04/22/23 0139 04/21/23 1611 NA 139 142 -- 140 -- K 4.5 3.8 4.4 Not Perf 3.8 CL 107 106 -- 107 -- CO2 21* 25 -- 25 -- BUN 24* 29* -- 27* -- CREATININE 0.93 1.04 -- 1.06 -- GLUCOSE 124 134 -- 142 -- CALCIUM 8.4* 8.7 -- 8.7 -- MAGNESIUM 0.75 0.80 -- 0.92 -- PHOS 3.0 3.2 -- 2.0* -- Recent Labs 04/23/2323 PROT 7.5 ALBUMIN 3.5 BILITOT 0.4 BILIDIR 0.2 ALKPHOS 64 AST 28 ALT 26 Recent Labs 04/23/23 0024 04/21/23 1042 LACTATEVEN 1.4 1.2 No results for input(s): PHART, FPG2DDZ, PO2ART, HGN3HRS in the last 72 hours. Studies: CTA CAP 04/22/23- IMPRESSION 1. 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 2. No active extravasation, however , there is some apparent high density within a trace left pleural fluid collection possibly hemothorax and raises concern for early aneurysm leak/rupture into the pleural space. 3. Fusiform dilatation of the descending thoracic aorta measuring up to 4.7-4.8 cm. In maximal diameter Impression and Recommendations: Myla 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 male with AUD, otherwise unknown PMHx who was admitted for right cerebellar IPH ISO hypertension emergency. 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 Mesenteric branches extend from the true lumen. Recommendations: - Strict Impulse control with the following parameters: SBP < 120 and HR<60 - Consider Cardiology (Vascular medicine) consult for management of anti- hypertensives inpatient and outpatient follow up - start ASA 81 when safe to do so from a neuro perspective - all other care per primary Vascular surgery service will follow. Please reach out with further questions or concerns Discussed with Dr. Enoch Alvarez MD 04/24/2023 Vascular Surgery Service [phone] * Care Management - Melchor Frazier RN - 04/24/2023 8:35 AM EDT OFFICE OF CARE MANAGEMENT PROGRESS NOTE LOS: Hospital Day 6 days Chart reviewed, care reviewed with primary team and at interdisciplinary rounds. Patient continues to meet inpatient level of care related to: Q 1 hour interventions and remains in the hospital related to: Provider note 04/24/2023: 67 y.o. male largely without routine medical care and not on any medications, presenting in transfer from OSH for R cerebellar IPH and intraventricular extension. S/p R EVD placement for hydrocephalus. Doing well from neurologic standpoint, MRI done with no evidence of mass lesion. Hemorrhagic strokeworkup per NCCU/Neurology. Problem List: IPH IVH Hydrocephalous Plan: - Q1HNC - Pain control - Imaging: complete - SBP<160 - Monitor EVD/ICP per protocol, open at 20, possible clamp trial today - DVT ppx: SCDs, Ok SQH. Hold ASA for now\ - Current Diet: NPO diet (Give Meds) - Further care per NCCU Per Vascular provider note: 04/23/2023: 67 y.o. male with AUD, otherwise unknown PMHx who was admitted for right cerebellar IPH ISO hypertension emergency. Incidentally found to have aortic dissection on imaging. CTA CAP with dissection extending from subclavian to the ext iliac arteries. Abdominal arterial branches off the aorta appear to be exiting from the true lumen. Recommend strict impulse control. When safe to do so from a neurostandpoint, would recommend starting ASA 81. Recommendations: -esmolol gtt to titrate HR<60 - nicard gtt to titrate SBP <120 - start ASA 81 when safe to do so from a neuro perspective -all other care per primary ICU Needs: Q1 hour interventions, ICU specific devices / therapies, mechanically ventilated Functional status prior to admission: Independent Home Environment: Others in the home: spouse. Current Living Arrangements: home/apartment/condo. Accessibility Concerns: 0 PATRICIA,. Current Functional Ability: DME used at home: (has grab bars available) DME Needed at Discharge: Pending PT / OT Recommendations Last Physical Therapy Recommendation: with Last Occupational Therapy Recommendation: with Patient is insured through: Primary Insurance: MEDICARE Payor: MEDICARE / Plan: MEDICARE PART A & B / Product Type: *No Product type* / Secondary Insurance: [employer] [place] Prescription Coverage: Yes Preferred Pharmacy: No Pharmacies Listed Plan for discharge is: Pending Hospital Course and PT/OT Recommendations Agency Referrals & Follow-up Care: Pending Hospital Course and PT/OT Recommendations Transportation: pending needs closer to discharge Barriers to discharge: Discharge planning, ICU Needs Psych: Adjustment to diagnosis/illness, Decision-making, Coping/stress, Grief/loss, Cognitive/perceptual Supports: Caregiver support Admit Dx: ICH (intracerebral hemorrhage) Referring Location: [facility] Surgery: 04/18: S/p R EVD placement for hydrocephalous; 04/19: s/p Broncoscopy; Type B aortic dissection 04/19: Triple Lumen PICC placed 04/21: Extubated Decision Maker, if not pt: SDM latrice Fuentes [phone] Pending PT/OT plant and instrument engineer/CM and HOSPITAL MEDICINE DIRECTOR following patient for appropriateness of ETOH and AD review. Pt without PCP and provider team encouraged to plan GIM consult to assist in finding him a PCP for his ongoing post-hospitalization needs. Plan going forward: Service Care Management will continue to follow and assist with discharge planning and coordination of care as indicated. Anticipated Date of Discharge: 04/28/2023 Melchor Frazier RN RN/CM - Cellphone: [phone] Pager: [phone] Covering Service RN/CM * Plan of Care - Ned Del Valle RN - 04/24/2023 5:37 AM EDT OUTCOME EVALUATION NOTE: OUTCOME SUMMARY: Patient sedated on Precedex at 1.4, EVD open at 20, arouses to voice, d/o to place/time/sit, speechslurred, follows commands, moves all 4 extremities, sensation/reflexes intact. PRN ativan 3mg x1 for CIWA protocol. VSS on 2 lpm NC. NSR on monitor, currently on 200 of Esmolol and 8 of Cleviprex forHR <60 and SBP<120 goals. TF at goal and tolerated, unable to bridle DH tube. Patient has yetto void following removal of indwelling catheter, straight cathed once for 650 mL. Q2 turns performed and bony prominences offloaded. PLAN MOVING FORWARD: Q1 vitals, Q2 neuro INDIVIDUALIZED FALL PREVENTION INTERVENTIONS: Patient-specific fall risk factors per assessment: [current deficits]: AMS, gen weakness. Assistance [level of assistance required for transfers and ambulation]: Dependent. Supervision [direct monitoring required during toileting and ADLs]: Hands on. Surveillance [continuous indirect monitoring]: ICU monitoring. Patient-specific fall prevention interventions for sensory deficits provided, if applicable: [X] Yes CARE PLAN GOAL OUTCOME EVALUATION: * Consult Note - Brooke Galvez RN - 04/23/2023 3:59 PM EDT Called to see Myla Acosta who is a 67 y.o. male by Attending MD for a small bore insertion team consult. Admission Date/Time: 04/18/2023 6:34 AM Hospital Day: 5 Admitting Diagnosis: R cerebellar hemorrhage with intraventricular extension, acute obstructive hydrocephalus s/p EVD placement, course c/b failed extubation 2/2 aspiration Ordering Provider: Vignesh Epstein, APR Indication: medication/feeding Weighted or Not Weighted: weighted Ordered destination: stomach Attempted to place DHT in Left and Right nares pt immediately started to gag despite using lidocaine and other interventions. Spoke to provider due to difficulty placement. 2mg versed given DHT was easily advanced without gagging in Right nares to 70cm. KUB for conformation. Tube was taped for securement. Primary team notified for follow up. Kub confirmed, wire removed, OK to use. Attempted to secure tube with nasal bridle, unable to secure due to magnets not connecting. Taped for securement. Brooek Galvez, CARSON April 23, 2023 * Care Management - Alexa Quiñones MSW - 04/23/2023 10:18 AM EDTSummary: SW Consult Response Social Work Response to Consult Consult: Nursing consult to Social Work Ordered at: 04/20/23 0652 Reason for Consult: Substance / alcohol abuse Social Work Response: After reviewing patient's chart, HOSPITAL MEDICINE DIRECTOR reached out to patient's bedside nurse to clarify if patient was appropriate for SW intervention pertaining to this LUJAN consult. RN informed HOSPITAL MEDICINE DIRECTOR that patient is lethargic and oriented to self. Follow Up Needed: Patient not appropriate for SW intervention at this time. Please reactivate consult when patient is able to engage. LUCIO Mayorga Balancer Scale Office of Care Management * Plan of Care - Marta Hesetr RN - 04/23/2023 4:27 AM EDT OUTCOME EVALUATION NOTE: OUTCOME SUMMARY: Patient went for CT abd prior to start of shift. Noted for Abdominal Aortic Aneurysm. PLAN MOVING FORWARD: Maintain HR 60-70, Sytolic B/P <120. Initiated Esmolol and Cleviprex. INDIVIDUALIZED FALL PREVENTION INTERVENTIONS: Patient-specific fall risk factors per assessment: [current deficits]: Confused to place, time and situation. Assistance [level of assistance required for transfers and ambulation]: Max assist/lift Supervision [direct monitoring required during toileting and ADLs]: Complete Care Surveillance [continuous indirect monitoring]: Hourly safety monitoring Patient-specific fall prevention interventions for sensory deficits provided, if applicable: [X] Yes CARE PLAN GOAL OUTCOME EVALUATION: Problem: Restraint, Nonbehavioral (Nonviolent) Goal: Discontinuation Criteria Achieved Outcome: Ongoing (Interventions Implemented as Appropriate) Problem: Adjustment to Illness (Stroke, Hemorrhagic) Goal: Optimal Coping Outcome: Ongoing (Interventions Implemented as Appropriate) Problem: Bowel Elimination Impaired (Stroke, Hemorrhagic) Goal: Effective Bowel Elimination Outcome: Ongoing (Interventions Implemented as Appropriate) Problem: Cerebral Tissue Perfusion (Stroke, Hemorrhagic) Goal: Optimal Cerebral Tissue Perfusion Outcome: Ongoing (Interventions Implemented as Appropriate) Problem: Cognitive Impairment (Stroke, Hemorrhagic) Goal: Optimal Cognitive Function Outcome: Ongoing (Interventions Implemented as Appropriate) Problem: Communication Impairment (Stroke, Hemorrhagic) Goal: Effective Communication Skills Outcome: Ongoing (Interventions Implemented as Appropriate) Problem: Functional Ability Impaired (Stroke, Hemorrhagic) Goal: Optimal Functional Ability Outcome: Ongoing (Interventions Implemented as Appropriate) Problem: Pain (Stroke, Hemorrhagic) Goal: Acceptable Pain Control Outcome: Ongoing (Interventions Implemented as Appropriate) Problem: Respiratory Compromise (Stroke, Hemorrhagic) Goal: Effective Oxygenation and Ventilation Outcome: Ongoing (Interventions Implemented as Appropriate) Problem: Sensorimotor Impairment (Stroke, Hemorrhagic) Goal: Improved Sensorimotor Function Outcome: Ongoing (Interventions Implemented as Appropriate) Problem: Swallowing Impairment (Stroke, Hemorrhagic) Goal: Oral Intake without Aspiration Outcome: Ongoing (Interventions Implemented as Appropriate) Problem: Urinary Elimination Impaired (Stroke, Hemorrhagic) Goal: Effective Urinary Elimination Outcome: Ongoing (Interventions Implemented as Appropriate) Problem: Fall Injury Risk Goal: Absence of Fall and Fall-Related Injury Outcome: Ongoing (Interventions Implemented as Appropriate) Problem: Adult Inpatient Plan of Care Goal: Plan of Care Review Outcome: Ongoing (Interventions Implemented as Appropriate) Goal: Patient-Specific Goal (Individualized) Outcome: Ongoing (Interventions Implemented as Appropriate) Goal: Absence of Hospital-Acquired Illness or Injury Outcome: Ongoing (Interventions Implemented as Appropriate) Goal: Optimal Comfort and Wellbeing Outcome: Ongoing (Interventions Implemented as Appropriate) Goal: Readiness for Transition of Care Outcome: Ongoing (Interventions Implemented as Appropriate) * Consult Note - Brittany Kendall MD - 04/23/2023 2:12 AM EDT Vascular Surgery Inpatient Consult Note Patient Name: Myla Acosta MR#: [id number] : 1955 Admission Date: 04/18/2023 Primary Team: NCCU Consult Requested by: Tana Smith MD Reason for Consult: aortic dissection History of Present Illness: Myla 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 male with AUD, otherwise unknown PMHx who was admitted for right cerebellar IPH. Initial Bps were noted to be in the 200s. Was started on a nicard gtt for BP control. Was subsequently intubated at the OSH for airway protection given worsening somnolence. Imaging of carotids and [place] reveal unexpected finding of aortic dissection. CTA CA with type B dissection extending from subclav to external iliac. Thus vascular surgery was called. Patient extubated today, though continues on CIWA protocol. He is unable to participate in an exam. PMH: No past medical history on file. Patient Active Problem List Diagnosis Code ICH (intracerebral hemorrhage) I61.9 PSH: No past surgical history on file. Home Medications: No current outpatient medications Allergies No Known Allergies Family History: No family history on file. Social History: Social History Tobacco Use Smoking status: Unknown Substance Use Topics Alcohol use: Defer Drug use: Defer Review of Systems: As stated above, otherwise ten system review negative Vitals: Last Value Range last 24 hrs Temperature Temp: 36.5 ??C (97.7 ??F) Temp: [36.5 ??C (97.7 ??F)-37.5 ??C (99.5 ??F)] Heart Rate Heart Rate: 67 Heart Rate from SpO2: 66 bpm Heart Rate: [66-85] Heart Rate From SP02 Min: 61 bpm Max: 85 bpm Blood Pressure BP: 114/51 BP: (113-183)/(51-116) BP (Arterial Line): (104-123)/(51-60) Respiratory Rate Resp: 26 Resp: [15-32] SpO2 SpO2: 94 % SpO2: [89 %-98 %] O2 Device O2 Device: Nasal cannula Weight/BMI Weight: 112 kg (246 lb 14.6 oz) Body mass index is 36.99 kg/m??. Intake/Output Summary (Last 24 hours) at 04/23/2023 0212 Last data filed at 04/23/2023 0200 Gross per 24 hour Intake 3437.74 ml Output 4289 ml Net -851.26 ml NPO diet (Give Meds) Physical Exam: GEN: resting comfortably in bed, pleasant, conversant, NAD HEENT: normocephalic, atraumatic CHEST: comfortable work of breathing on 4L NC CV: regular rate, well perfused ABD: soft, moderately distended, no grimace to palpation EXTR: moving all extremities spontaneously, robust palpable pulses in all four extremities, BL femoral pulses present NEURO: awake, nonfocal, moves all extremities spontaneously Data Reviewed: Labs: Recent Labs 04/23/23 0024 04/22/23 0139 04/21/23 0036 WBC 8.4 8.1 10.3* HGB 13.0* 12.5* 13.5* HCT 39.7* 37.9* 40.5 PLATELET 190 170 174 PT 12.7* -- -- INR 1.1 -- -- PTT 36 -- -- Recent Labs 04/23/23 0024 04/22/23 0300 04/22/23 0139 04/21/23 1611 04/21/23 1041 04/21/23 0520 04/21/23 0036 NA 142 -- 140 -- -- -- 141 K 3.8 4.4 Not Perf 3.8 3.7 < > 3.6 CL 106 -- 107 -- -- -- 104 CO2 25 -- 25 -- -- -- 26 BUN 29* -- 27* -- -- -- 26* CREATININE 1.04 -- 1.06 -- -- -- 1.28 GLUCOSE 134 -- 142 -- -- -- 104 CALCIUM 8.7 -- 8.7 -- -- -- 8.6 MAGNESIUM 0.80 -- 0.92 -- -- -- 1.10* PHOS 3.2 -- 2.0* -- -- -- 3.5 < > = values in this interval not displayed. Recent Labs 04/23/2323 PROT 7.5 ALBUMIN 3.5 BILITOT 0.4 BILIDIR 0.2 ALKPHOS 64 AST 28 ALT 26 Recent Labs 04/23/23 0024 04/21/23 0515 04/20/23 0540 04/20/23 0320 LACTATEVEN 1.4 1.5 1.2 1.5 Recent Labs 04/20/23 0540 PHART 7.46* PMC4KEH 36 PO2ART 65* WWU2LCF 25.2 Studies: CTA CAP 04/22/23- IMPRESSION 1. 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 2. No active extravasation, however , there is some apparent high density within a trace left pleural fluid collection possibly hemothorax and raises concern for early aneurysm leak/rupture into the pleural space. 3. Fusiform dilatation of the descending thoracic aorta measuring up to 4.7-4.8 cm. In maximal diameter Impression and Recommendations: Myla 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 male with AUD, otherwise unknown PMHx who was admitted for right cerebellar IPH ISO hypertension emergency. Incidentally found to have aortic dissection on imaging. CTA CAP with dissection extending from subclavian to the ext iliac arteries. Abdominal arterial branchesoff the aorta appear to be exiting from the true lumen. Recommend strict impulse control. When safeto do so from a neuro standpoint, would recommend starting ASA 81. Recommendations: -esmolol gtt to titrate HR<60 - nicard gtt to titrate SBP <120 - start ASA 81 when safe to do so from a neuro perspective -all other care per primary Above recommendations discussed with primary team. All plans formulated in discussion with and directed by fellow Dr. Roldan. Thank you for this consult. If you have any questions, please page [phone]. Consult service will continue to follow Ann Michaud MD 04/23/2023 Vascular Surgery Service [phone] Attending Addendum: Agree with note and plan. No evidence of malperfusion. Chronicity of dissectionremains uncertain. Aspirin when able given cerebral bleed. * Plan of Care - Ned Jeronimo RN - 04/22/2023 8:43 PM EDT OUTCOME EVALUATION NOTE: OUTCOME SUMMARY: AOx2, PERRLA, HTN 150-180s see flowsheet, PRN's administered, NSR Extubated to HFNC 35/35, titrated to humidified NC 2L Abd CT at 1800 EVD output from 15-20 Q2H Cleviprex started, Esmolol started HR<70, SBP<120 Ativan administeredx1 for CIWA protocol, see MAR PLAN MOVING FORWARD: Q1 NC Q1 VS Q1 ICP Q2 I/O CARE PLAN GOAL OUTCOME EVALUATION: Problem: Restraint, Nonbehavioral (Nonviolent) Goal: Discontinuation Criteria Achieved Outcome: Ongoing (Interventions Implemented as Appropriate) Problem: Adjustment to Illness (Stroke, Hemorrhagic) Goal: Optimal Coping Outcome: Ongoing (Interventions Implemented as Appropriate) Problem: Bowel Elimination Impaired (Stroke, Hemorrhagic) Goal: Effective Bowel Elimination Outcome: Ongoing (Interventions Implemented as Appropriate) Problem: Cerebral Tissue Perfusion (Stroke, Hemorrhagic) Goal: Optimal Cerebral Tissue Perfusion Outcome: Ongoing (Interventions Implemented as Appropriate) Problem: Cognitive Impairment (Stroke, Hemorrhagic) Goal: Optimal Cognitive Function Outcome: Ongoing (Interventions Implemented as Appropriate) Problem: Communication Impairment (Stroke, Hemorrhagic) Goal: Effective Communication Skills Outcome: Ongoing (Interventions Implemented as Appropriate) Problem: Functional Ability Impaired (Stroke, Hemorrhagic) Goal: Optimal Functional Ability Outcome: Ongoing (Interventions Implemented as Appropriate) Problem: Pain (Stroke, Hemorrhagic) Goal: Acceptable Pain Control Outcome: Ongoing (Interventions Implemented as Appropriate) Problem: Respiratory Compromise (Stroke, Hemorrhagic) Goal: Effective Oxygenation and Ventilation Outcome: Ongoing (Interventions Implemented as Appropriate) Problem: Sensorimotor Impairment (Stroke, Hemorrhagic) Goal: Improved Sensorimotor Function Outcome: Ongoing (Interventions Implemented as Appropriate) Problem: Swallowing Impairment (Stroke, Hemorrhagic) Goal: Oral Intake without Aspiration Outcome: Ongoing (Interventions Implemented as Appropriate) Problem: Urinary Elimination Impaired (Stroke, Hemorrhagic) Goal: Effective Urinary Elimination Outcome: Ongoing (Interventions Implemented as Appropriate) Problem: Fall Injury Risk Goal: Absence of Fall and Fall-Related Injury Outcome: Ongoing (Interventions Implemented as Appropriate) Problem: Adult Inpatient Plan of Care Goal: Plan of Care Review Outcome: Ongoing (Interventions Implemented as Appropriate) Goal: Patient-Specific Goal (Individualized) Outcome: Ongoing (Interventions Implemented as Appropriate) Goal: Absence of Hospital-Acquired Illness or Injury Outcome: Ongoing (Interventions Implemented as Appropriate) Goal: Optimal Comfort and Wellbeing Outcome: Ongoing (Interventions Implemented as Appropriate) Goal: Readiness for Transition of Care Outcome: Ongoing (Interventions Implemented as Appropriate) * Plan of Care - Dorina Klein RN - 04/21/2023 4:50 AM EDT OUTCOME EVALUATION NOTE: OUTCOME SUMMARY: Pt remains intubated and sedated. Follows commands, able to show thumbs up, and opens eyes spontaneously or to voice. R frontal EVD intact. ICPs 10-18 this shift, output 20-25 Q2 hrs. Labetalol givenx2 to maintain SBP <160. Rebol[address] in place, AUOP. MRI obtained, see results. TF restarted. PLAN MOVING FORWARD: Q1 HR neuro Q1 HR VS Pulm hygiene Increase TF INDIVIDUALIZED FALL PREVENTION INTERVENTIONS: Patient-specific fall risk factors per assessment: [current deficits]: lines/drains, generalized weakness, sedation Assistance [level of assistance required for transfers and ambulation]: 2A, bedrest Supervision [direct monitoring required during toileting and ADLs]: hands on Surveillance [continuous indirect monitoring]: ICU Patricia monitor, purposeful rounding, room near unit station Patient-specific fall prevention interventions for sensory deficits provided, if applicable: [X] N/A CPG GOAL OUTCOME EVALUATION: Ongoing * Plan of Care - Sanjay Arvizu RN - 04/20/2023 4:45 PM EDT OUTCOME EVALUATION NOTE: OUTCOME SUMMARY: Pt neuro exam fluctuated throughout day with sedation, intermittently following commands with welding tester strength, thumbs-up, and eye opening, but also intermittently just withdrawing to pain, 1-2/5 strength in all extremities. Right frontal EVD intact, open at 10, ICPs 7-10 during shift, output ~20-40 q2hr. Pt remains vented on VC FiO2 30% PEEP 10 and rate of 12, tolerating. Pt on propofol for sedation. Pt NSR during shift. Pt DHT still remains at 65 in L nare bridled. TF off during shift. Rebolledo catheter in place for retention, catheter care provided. Pt had 4 loose liquid Bms during shift. Pt had PICC placed at 1330 for central access, XR confirmed placement. Broncoscopy procedure done at 1500, propofol titrated as needed for procedure toleration. Fentanyl given x1. Levo started briefly for MAP <65. Shut off post- procedure. BP has remained in goal during shift without interventions otherwise. PLAN MOVING FORWARD: Q1 Neuro Q1 VS Q1 ICP Q2 EVD MAP >65 SBP <160 MRI @ 2030 INDIVIDUALIZED FALL PREVENTION INTERVENTIONS: Patient-specific fall risk factors per assessment: [current deficits]: Intubated/sedated, EVD, lines/drains/tubing, stroke patient Assistance [level of assistance required for transfers and ambulation]: 2x assist Supervision [direct monitoring required during toileting and ADLs]: hands-on Surveillance [continuous indirect monitoring]: ICU monitoring, purposeful hourly rounding CARE PLAN GOAL OUTCOME EVALUATION: Problem: Restraint, Nonbehavioral (Nonviolent) Goal: Discontinuation Criteria Achieved Outcome: Ongoing (Interventions Implemented as Appropriate) Problem: Adjustment to Illness (Stroke, Hemorrhagic) Goal: Optimal Coping Outcome: Ongoing (Interventions Implemented as Appropriate) Problem: Bowel Elimination Impaired (Stroke, Hemorrhagic) Goal: Effective Bowel Elimination Outcome: Ongoing (Interventions Implemented as Appropriate) Problem: Cerebral Tissue Perfusion (Stroke, Hemorrhagic) Goal: Optimal Cerebral Tissue Perfusion Outcome: Ongoing (Interventions Implemented as Appropriate) Problem: Cognitive Impairment (Stroke, Hemorrhagic) Goal: Optimal Cognitive Function Outcome: Ongoing (Interventions Implemented as Appropriate) Problem: Communication Impairment (Stroke, Hemorrhagic) Goal: Effective Communication Skills Outcome: Ongoing (Interventions Implemented as Appropriate) Problem: Functional Ability Impaired (Stroke, Hemorrhagic) Goal: Optimal Functional Ability Outcome: Ongoing (Interventions Implemented as Appropriate) Problem: Pain (Stroke, Hemorrhagic) Goal: Acceptable Pain Control Outcome: Ongoing (Interventions Implemented as Appropriate) Problem: Respiratory Compromise (Stroke, Hemorrhagic) Goal: Effective Oxygenation and Ventilation Outcome: Ongoing (Interventions Implemented as Appropriate) Problem: Sensorimotor Impairment (Stroke, Hemorrhagic) Goal: Improved Sensorimotor Function Outcome: Ongoing (Interventions Implemented as Appropriate) Problem: Swallowing Impairment (Stroke, Hemorrhagic) Goal: Oral Intake without Aspiration Outcome: Ongoing (Interventions Implemented as Appropriate) Problem: Urinary Elimination Impaired (Stroke, Hemorrhagic) Goal: Effective Urinary Elimination Outcome: Ongoing (Interventions Implemented as Appropriate) Problem: Fall Injury Risk Goal: Absence of Fall and Fall-Related Injury Outcome: Ongoing (Interventions Implemented as Appropriate) Problem: Adult Inpatient Plan of Care Goal: Plan of Care Review Outcome: Ongoing (Interventions Implemented as Appropriate) Goal: Patient-Specific Goal (Individualized) Outcome: Ongoing (Interventions Implemented as Appropriate) Goal: Absence of Hospital-Acquired Illness or Injury Outcome: Ongoing (Interventions Implemented as Appropriate) Goal: Optimal Comfort and Wellbeing Outcome: Ongoing (Interventions Implemented as Appropriate) Goal: Readiness for Transition of Care Outcome: Ongoing (Interventions Implemented as Appropriate) * Plan of Care - Jazmin Reyes RN - 04/20/2023 2:00 PM EDT Images from the [place] [address] [facility] Vascular Access Service Peripherally Inserted Central Catheter (PICC) Teaching Sheet Peripherally inserted central catheters (rbyo-ra-wpyc) (PICC) are used when you need IV (intravenous) medicines and fluids. A catheter is a small flexible plastic tube. The catheter is put in througha vein under your skin. A vein is a tube inside your body that carries blood from the body to the heart. The catheter is usually put into a vein on the inside of your upper arm. Then it is threaded up this vein and ends in the blood vessel near your heart. The PICC catheter may be used for taking blood for laboratory tests. You may also get IV fluids andmedicines quickly and easily. Having the catheter may keep your arm from being stuck many times with a needle. The catheter will have 1-3 small tails (tubes) coming from your arm where the catheter was put in. Why do I need a PICC line or midline catheter? PICC lines are used for intermediate project manager treatments. PICC lines may be used for up to a year. They are often put in to give you IV medicines at home. You may need a PICC catheter because caregivers cannot use smaller veins in your body. Smaller veins may be damaged, or they may have poor blood flow. Catheters are also used in case of emergency when you would need medicines or fluids very quickly. The following are medicines and treatments you may get when you have a PICC line. ?? Antibiotics. These are medicines to prevent infection. ?? Frequent blood sample collection. ?? IV medicines that would make your smaller veins sore or damaged. ?? Receiving IV fluids for a long period of time. ?? Pain medicine. ?? Total Parenteral Nutrition: This is also called TPN. TPN is a special liquid food that goes directly into your veins. ?? Blood ?? Chemotherapy (Medicine for cancer) What are the benefits of having a PICC line put in? Having a PICC line may keep your arm from being stuck many times with a needle to draw blood or start an IV (intravenous catheter) . Through a PICC catheter, you may have blood taken for tests. You may also get IV fluids and medicines quickly and easily. Small veins can be damaged or irritated by certain drugs or nutritional solutions. A PICC line helps to decrease vein irritation from antibiotics, IV pain drugs, or IV cancer drugs. A PICC line can be left in place when you go home. If you go home with a PICC line in place, home care can be set up via the nurse Advanced Practice Rn to help you. What are possible complications of having a PICC line put in? Some possible complications are: bruising, swelling, or infection in the arm with the PICC line mal-positioned catheter (catheter tip in wrong place) occlusion (blocked catheter) mechanical phlebitis (vein irritation) and thrombosis (clot) Your doctor is the person you should talk to if you have questions about what would happen if you do not choose to have a PICC line put in. Your doctor can talk to you about other choices you may have. What should I expect when it is put in? A written consent that gives you're ok to have it put in needs to be signed after you understand that you are going to have a PICC put in, and all your questions about the procedure have been answered to your satisfaction. This is a safety feature that the hospital practices before doing procedures. An experienced nurse who has been through special training and education will be putting this catheter in. The procedure is done in a specially equipped room in Interventional Radiology on the third floor. The PICC nurse will first talk to you about any questions that you may have. The PICC nurse will explain to you what is going to be done before starting. Once you arrive in the procedure room in Interventional Radiology, the PICC nurse will then set up for the procedure. She will unwrap the sterile kit and open the needed supplies. A gown and mask andgloves will be worn while putting it in. An ultrasound machine will be used to help guide the catheter in the right place. This machine uses a handle with sound waves to find the vein. The area on your arm where the catheter will be put in is then numbed with a medicine put under your skin with a tiny needle. The nurse will then put in the catheter using fluoroscopy (a type of x-ray) as a guide. Once the catheter is in your vein, it will be threaded up your arm to the area beforeyour heart. While it is being threaded, you may be asked to turn your head. When the catheter is in, the nurse will place a small dressing on the site along with a little armstrong which will help keep the catheter in place. After the procedure is done, a radiologist (doctor in x-ray department) will look at your x-ray to make sure that the end of the catheter is in proper position to give your fluids and/or medications. What should I expect in the care of my PICC? A dressing that is specially made to prevent infections will be put on. After this, the dressing will only be changed once a week unless it needs it sooner. If you go home with the catheter in, you may take a shower as long as you keep the site dry. You can do this by wearing a specially fitted PICC protector that will be provided to you before dischargefrom the hospital. The dressing at the site must be kept clean and dry. It is important that you watch for signs of infection at the site. Your healthcare provider should be notified if these occur: Redness Swelling Pus Pain at the site Other reasons to notify your healthcare provider are: Catheter becomes partially or totally removed Unable to infuse medication/fluid Unable to draw back blood from the catheter. This may be an early sign that a clot is forming on the end of the catheter. If this occurs, a medicine called Cathflo may be used to dissolve this clot. Ask the PICC nurse or your doctor, any questions you may have so you feel secure in consenting to having a PICC line. References: Vascular Access Device Selection, Insertion, and Management, [employer] 11/10. A Review of the Efficacy, Safety, Use, and Administration of Cathflo, [employer] 2005 * Care Management - Melchor Frazier RN - 04/20/2023 1:50 PM EDT RN/CM notes pt is intubated/sedated with propofol. Admit Dx: ICH (intracerebral hemorrhage) Surgery: 04/18: S/p R EVD placement for hydrocephalous 04/19: Triple Lumen PICC placed RN/CM following closely his critical care needs and address with HOSPITAL MEDICINE DIRECTOR. No AD on file (at this time) Medicare A/B only with part D for prescriptions noted. NO PCP listed at this time. Per NS note when he came in: largely without routine medical care and not on any medications HOSPITAL MEDICINE DIRECTOR consult in place for ETOH. Pt not appropriate at this time for interventions and resources. RN/CM sent email to Sree to follow up for additional insurance, PCP information as well as following up if he would qualify for [place] ZACH. Melchor Frazier RN RN/CM - Cellphone: [phone] Pager: [phone] Covering Service RN/CM * Initial Assessments - Beata Ramon RN - 04/20/2023 1:26 PM EDT Office of Care Management Initial Assessment Beata Ramon RN reviewed record and discussed patient with Care Team. Source of Information: Team, bedside nurse, medical record, and Spouse Tete Introduced self/reviewed role; services accepted. Admitted From: Home Reason for Hospitalization: ICH Covid Vaccination Status: 1st, 2nd & booster Last COVID test: Past medical History: No past medical history on file. Hospitalizations Within the Past 30 Days: no previous admission in last 30 days Current Decision-Making Capacity: Self If AD's have not been completed the following surrogate would be surrogate decision maker per [place] surrogate decision making law. (Only good for 180 days) Tete Any patient receiving care in [place] must abide by [place] law. The hierarchy for surrogate decision making is: (a) Patient???s spouse or civil union partner unless there is a divorce proceeding, separation agreement, or restraining order limiting that person???s relationship with the patient. (b) Any adult son or daughter of the patient. (c) Either parent of the patient. (d) Any adult brother or sister of the patient. (e) Any adult grandchild of the patient. (f) Any grandparent of the patient. (g) Any adult aunt, uncle, niece, or nephew of the patient. (h) A close friend of the patient. (i) The agent with financial power of tax associate attorney or a conservator appointed in accordance with RSA 464-A. (j) The guardian of the patient???s estate. Advance Care Planning: Attempt Cardiopulmonary Resuscitation - Inpatient <no information> -Advanced Directive: No, need to discuss Current Coping/Education/Information Needs: Current Functional Ability: Completely Dependent Functional Status Prior to Admission: Independent Prior ADLs & IADLs: Independent with all ADLs & IADLs Home Environment: Others in the home: spouse. Current Living Arrangements: home/apartment/condo. Accessibility Concerns:0 PATRICIA,. In the last 12 months, was there a time when you were not able to pay the mortgage or rent on time?: No In the last 12 months, was there a time when you did not have a steady place to sleep or slept in ashelter (including now)?: No In the past 12 months has the electric, gas, oil, or water [employer] threatened to shut off services in your home?: No Within the past 12 months, you worried that your food would run out before you got the money to buymore.: Never true Within the past 12 months, the food you bought just didn't last and you didn't have money to get more.: Never true Resource / Environmental Concerns: Resource/Environmental Concerns: none In the past 12 months, has lack of transportation kept you from medical appointments or from getting medications?: No In the past 12 months, has lack of transportation kept you from meetings, work, or from getting things needed for daily living?: No Current DME: (has grab bars available) Home Address confirmed as: [address] [place] [id number] Social & Family Supports: All names listed below confirmed with patient as current and correct Extended Emergency Contact Information Primary Emergency Contact: Gina Acosta Mobile Relation: Spouse Secondary Emergency Contact: Royal Acosta Mobile Relation: Child Current Care Provided by: self Provides Primary Care For: no one Caregiver if needed: child(lizzeth), adult, spouse Quality of Family relationships: supportive Community Resources being provided currently: none Behavioral Health History: Substance Use/Abuse listed: Social History Tobacco Use Smoking Status Unknown Smokeless Tobacco Not on file 0 No problems reported 1-2 Low level 3-5 Moderate level 6-8 Substantial level 9- 10 Severe level 0 to 7 points: Low risk 8 to 15 points: Medium risk 16 to 19 points: High risk 20 to 40 points: Addiction likely Other Pertinent/Service Specific Information: Health/Prescription Coverage: Primary Insurance: MEDICARE Payor: MEDICARE / Plan: MEDICARE PART A & B / Product Type: *No Product type* / Secondary Insurance: N/A ; Prescription Coverage: Yes Preferred Pharmacy: No Pharmacies Listed [place] Status: Patient is a : No Primary Care Provider listed: None None Patient/Caregiver Goals of Treatment: Potential Needs for Transition of Care: home health care Agency Referrals: I have met with the floor representative Tete to: discuss discharge planning needs. provide the [facility], Office of Care Management letter from the Analytics Senior Manager pertaining to rehab referrals. provide a letter describing our affiliations within the [facility] and educate about their right to choose where referrals are sent. provide a list of Home Health Agencies / Durable Medical Equipment vendors which serve their preferred geographic area. provided patient with [facility] Star Quality Rating handout. They have requested referrals to: [facility]. [address] [place] [id number] Note routed to a Reed Maker who will communicate referrals to facilities and provide any required information. Transportation: no concerns Transportation Anticipated: family or friend will provide Concerns to be Addressed: discharge planning Assessment: Patient is admitted to [facility] service for ICH Plan: Interview conducted with pt's . 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 Per Tete, prior to admission pt was IADL/ADL and mobility in dependent, working and driving self. She anticipates that they may benefit from VNA services at discharge; choice provided and referral routed. Further needs pending course and recommendations. A member of the Care Management team will continue to monitor progress, follow for continuity of care andassist with transition of care planning. Beata Ramon RNCM Office of Care Management * Consult Note - Gisell Nguyen MD - 04/20/2023 9:58 AM EDT Neurology Consult Note Patient name:Myla Acosta Date of :1955 Admit date: 04/18/2023 Attending: Scar CC: ICH Date last well known:: 04/17/23 Time last well known:: 2099 Date of discovery of symptoms:: 04/18/23 Time of discovery of symptoms:: 0000 Was IV Thrombolytics given?: No Other (specify) Was dysphagia screen performed?: Yes Date of Dysphagia Screen: 04/18/23 Time of Dysphagia Screen: 1050 Did patient pass dysphagia screen?: No NIH Stroke Scale NIH Stroke Scale Date 04/18/23 NIH Stroke Scale Time 1050 Level of Consciousness 1 LOC Questions 2 LOC Commands 0 Best Gaze 1 Vision 0 Facial Palsy 0 Motor Arm, Left 0 Motor Arm, Right 0 Motor Leg, Left 0 Motor Leg, Right 0 Limb Ataxia (UT) Sensory (UT) Best Language 3 (intubated) Dysarthria 0 Extinction and Inattention: 0 (UT) NIH Total Score We have been asked to see Myla Acosta by [facility]. ID: Myla 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 without significant PMH transferred for R cerebellar IPH with ANIL. Per chart review patient LKW 2100. Patient went to bed normal. No recent trauma. When he woke up hehad vertigo and emesis. He presented to OSH and was reportedly awake, following commands. BP was noted to be in the 230/140, dysmetria on the R and LLE weakness (reportde to have some left leg weakness). and he was started on nicardipine with a systolic goal of less than 140. Intubated due to somnol ence. CTH demonstrated cerebellar IPH with IVH with casting of the fourth and third ventricles. Labs notable for K of 2.6, BG 197. EKG sinus tachy, NSG initial eval with GCS of 7. Subsequently EVD placed. EVD currently at 7mmHg. Social 3 drinks per day. No tobacco use. Interval Hx: -CTH on 04/18 showed left occipital lobe infarct in addition to prior R cerebellar and IVH in the third ventricle, cerebral aqueduct, and fourth ventricle -patient extubated yesterday -patient reintubated overnight due to inability to clear secretions Past Medical History: Patient Active Problem List Diagnosis Code ICH (intracerebral hemorrhage) I61.9 Medications: Allergies: No Known Allergies Family history: No family history on file. Social history: As above Physical Exam: Patient Vitals for the past 8 hrs: BP Temp Temp src Pulse Resp SpO2 Weight 04/20/23 0900 114/76 -- -- 67 12 98 % -- 04/20/23 0841 -- -- -- 70 19 98 % -- 04/20/23 0818 -- -- -- 64 12 95 % -- 04/20/23 0800 108/75 37.2 ??C (99 ??F) Axillary 64 18 96 % -- 04/20/23 0759 108/75 -- -- 64 18 96 % -- 04/20/23 0730 125/88 -- -- 74 18 97 % -- 04/20/23 0726 -- -- -- 66 18 96 % -- 04/20/23 0715 118/80 -- -- 65 18 96 % -- 04/20/23 0700 (!) 129/92 -- -- 74 18 95 % -- 04/20/23 0645 120/82 -- -- 66 18 96 % -- 04/20/23 0630 123/88 -- -- 69 18 94 % -- 04/20/23 0615 120/86 -- -- 66 18 96 % -- 04/20/23 0600 124/88 -- -- 67 18 96 % 117.2 kg (258 lb 6.1 oz) 04/20/23 0545 125/89 -- -- 68 18 96 % -- 04/20/23 0530 125/90 -- -- 69 18 95 % -- 04/20/23 0515 127/89 -- -- 69 18 95 % -- 04/20/23 0500 (!) 126/91 -- -- 70 18 95 % -- 04/20/23 0445 (!) 128/94 -- -- 72 18 97 % -- 04/20/23 0441 -- -- -- -- 17 98 % -- 04/20/23 0435 (!) 131/ 37.9 ??C (100.2 ??F) Axillary 74 20 -- -- 04/20/23 0430 -- -- -- 74 20 97 % -- 04/20/23 0425 (!) 131/92 -- -- -- -- -- -- 04/20/23 035 (!) 145/96 -- -- 79 20 94 % -- 04/20/23349 (!) 147/100 -- -- 79 19 95 % -- 04/20/23344 (!) 138/104 -- -- 78 20 98 % -- 04/20/23339 (!) 147/101 -- -- 80 20 96 % -- 04/20/23334 (!) 145/97 -- -- 80 15 93 % -- 04/20/23329 (!) 152/102 -- -- 80 29 95 % -- 04/20/23324 -- -- -- 80 30 92 % -- 04/20/23319 -- -- -- 79 30 (!) 83 % -- 04/20/23314 (!) 148/104 -- -- 84 30 97 % -- 04/20/23309 -- -- -- 82 (!) 37 91 % -- 04/20/23304 -- -- -- 75 28 99 % -- 04/20/23 030 (!) 142/94 -- -- 76 29 98 % -- 04/20/23 0226 (!) 164/111 -- -- 81 (!) 36 94 % -- 04/20/23 0215 (!) 166/110 -- -- 82 (!) 31 94 % -- 04/20/23 0200 (!) 167/113 -- -- 82 (!) 31 94 % -- EVD in place, sedated on propofol GEN- Awakens to tactile stimulation, eyes open spontaneously, follows simple commands CN- PERRL, no clear facial asymmetry MOTOR- in restraints moves all 4 extremities spontaneously SENSATION -deferred CEREBELLUM -deferred CV/PULM - RRR, no murmurs; LCBTA Labs: I/O 24 Hours: 04/18 0701 - 04/19 0700 In: 4830 [I.V.:3367.5] Out: 4185 [Urine:3770] I/O this shift: In: 425 [I.V.:15; NG/GT:80; IV Piggyback:250] Out: 100 [Urine:75; Other:25] Recent Labs 04/20/23 0110 04/19/23 0035 04/18/23 0650 WBC 10.6* 12.0* 10.6* HGB 13.5* 14.3 14.7 HCT 39.6* 41.7 42.9 PLATELET 168 184 214 NEUTROABS 8.75* 6.77* 9.33* Recent Labs 04/20/23 0110 04/19/23 1200 04/19/23 0035 04/18/23 0650 NA 136 -- 142 136 K 3.4* 3.3* 3.8 3.2* CL 101 -- 103 96* CO2 27 -- 20* 28 BUN 18 -- 17 16 CREATININE 1.03 -- 1.09 1.29 GLUCOSE 168 -- -- 218* Recent Labs 04/20/23 0110 04/19/23 0035 04/18/23 0650 CALCIUM 8.5 8.8 9.4 MAGNESIUM 0.75 0.66* -- PHOS 2.4* 3.5 -- Recent Labs 04/19/23 0035 04/18/23 0650 AST 22 32 ALT 19 26 ALKPHOS 66 74 BILITOT 0.3 0.5 BILIDIR 0.1 -- No results for input(s): TROPONINT, CK in the last 168 hours. Recent Labs 04/20/23 0540 PHART 7.46* [id number] 36 PO2ART 65* UXL1LLQ 25.2 Recent Labs 04/19/23 0035 04/18/23 0650 INR 1.1 1.1 Lipid Panel Lab Results Component Value Date CHLPL 220 04/19/2023 HDL 86 04/19/2023 CHOLHDL 2.6 04/19/2023 TRIG 82 04/20/2023 LDLDIRECT 129 04/19/2023 Recent Labs 04/19/2334 HA1C 6.0* Diagnostic Tests and Imaging: Results for orders placed or performed during the hospital encounter of 04/18/23 CT Angiogram [place] [facility] [place] (Exam End: 04/18/2023 9:45 AM) Impression No evidence of aneurysm or vascular malformation. Thank you for letting us participate in the care of this patient. If you are a health care provider and have any questions regarding this report, please contact the number below. For patients who have questions please contact the health manager managed care that requested your imaging first. Head wo Contrast (Generic) (Exam End: 04/18/2023 9:45 AM) Impression 1. Expected postoperative changes following placement of a right frontal extraventricular drain with stable hydrocephalus. 2. No additional significant change. Thank you for letting us participate in the care of this patient. If you are a health care provider and have any questions regarding this report, please contact the number below. For patients who have questions please contact the health manager managed care that requested your imaging first. Abdomen 1 view (Generic) (Exam End: 04/18/2023 12:17 PM) Impression 1. Weighted enteric catheter projects over the expected position of the stomach. 2. Left basilar nonspecific opacity may represent atelectasis, infectious or inflammatory etiology in the correct clinical context. I have personally reviewed the image(s) and the resident's interpretation and agree with the findings, Cooper Jones MD at 04/18/2023 2:03 PM Thank you for letting us participate in the care of this patient. If you are a health care provider and have any questions regarding this report, please contact the number below. For patients who have questions please contact the health manager managed care that requested your imaging first. Electronically signed by: Cooper Jones MD, [facility] ([phone]), at 04/18/2023 2:03 PM XR Chest One View (Exam End: 04/18/2023 12:17 PM) Impression Endotracheal tube is 1.1 cm above the nichole. Recommend retraction 2-3 cm for optimal positioning. Thank you for letting us participate in the care of this patient. If you are a health care provider and have any questions regarding this report, please contact the number below. For patients who have questions please contact the health manager managed care that requested your imaging first. Electronically signed by: Brien Avery MD, [facility] ([phone]), at 04/18/2023 3:[address] Head wo Contrast (Generic) (Exam End: 04/19/2023 1:05 AM) Impression 1. Interval decompression of the right lateral ventricle with persistent enlargement of the left lateral ventricle and resulting left to right subfalcine shift. 2. Stable size of the right cerebellar hemisphere parenchymal hemorrhage in the region of the dentate nucleus. I Narciso Gonzales MD discussed the results with neuro critical care, pager [phone] NILDA JERONIMO on 04/19/2023 1:42 AM and verified that the results were understood. Thank you for letting us participate in the care of this patient. If you are a health care provider and have any questions regarding this report, please contact the number below. For patients who have questions please contact the health manager managed care that requested your imaging first. Electronically signed by: Narciso Gonzales MD, [facility] ([phone]), at 04/19/2023 1:[address] Head wo Contrast (Generic) (Exam End: 04/19/2023 4:26 PM) Impression Further decreased caliber of the supratentorial ventricles. Similar volume of right cerebellar and intraventricular hemorrhage. Persistent expansion of the third ventricle, cerebral aqueduct and fourth ventricle. Thank you for letting us participate in the care of this patient. If you are a health care provider and have any questions regarding this report, please contact the number below. For patients who have questions please contact the health manager managed care that requested your imaging first. Chest One View (Exam End: 04/20/2023 4:32 AM) Impression 1. Endotracheal tube tip projects over the lower trachea 2 cm from the nichole. 2. Nonspecific left retrocardiac opacity with truncation of the bronchial air column suspicious for mucous plugging versus aspiration. 3. Left lower lobe opacity either lobar atelectasis versus pneumonia. 4. Nonspecific peribronchial thickening/cuffing may represent interstitial edema versus infectious/inflammatory bronchiolitis. Preliminary report signed by: Steve Paredes MD at 04/20/2023 4:52 AM I have personally reviewed the image(s) and the resident's interpretation and agree with the findings, Brien Durán MD at 04/20/2023 5:02 AM Thank you for letting us participate in the care of this patient. If you are a health care provider and have any questions regarding this report, please contact the number below. For patients who have questions please contact the health manager managed care that requested your imaging first. Electronically signed by: Brien Durán MD, [facility] ([phone]), at 04/20/2023 5:[address] Head wo Contrast (Generic) (Exam End: 04/20/2023 4:18 AM) Impression 1. Similar quantity of moderate volume intraventricular blood products allowing for redistribution. 2. Unchanged size of right cerebellar intraparenchymal hemorrhage in the region of the dentate nucleus. 3. Unchanged caliber of the ventricular system. 4. Infarct-related change involving the posterior medial left parietal lobe. Suggest brain MRI for further characterization. Thank you for letting us participate in the care of this patient. If you are a health care provider and have any questions regarding this report, please contact the number below. For patients who have questions please contact the health manager managed care that requested your imaging first. Electronically signed by: Brien Durán MD, [facility] ([phone]), at 04/20/2023 4:38 AM Assessment and Plan: 67 y.o. male without significant PMH transferred for R cerebellar IPH with ANIL. Per chart review patient seems to have improved with the EVD. Limited exam due to agitation, and restraints at this time. Suspected etiology is hypertensive given initial blood pressure, would recommend obtaining utox, LFTs, and non- urgent MRI brain wwo and completing remainder of stroke work up with A1c, LDL, TTE,, and monitoring on telemetry. Agree with SBP goal of < 140. 04/20/2023 Patient re intubated after difficulty clearing his secretions. No change in recommendations at thistime. #Neuro: -MRI brain wwo -Utox, A1c, LDL -TTE -telemetry -SBP goal <140. Narciso Wilks, DO Please page Vascular Neurology at #[phone] with any questions. Department [place] [address] Neurology Attending Attestation I evaluated the patient with the Stroke Team during bedside rounds. I have reviewed the medical records and patient's history, as well as the resident???s history and examination findings and I agreewith the details as written. My neurologic examination confirms the resident???s findings. We formulated the assessment and plan after a detailed discussion, as documented. Gisell Nguyen MD Vascular Neurology * Plan of Care - Reynold Coles RN - 04/20/2023 6:57 AM EDT Nursing Progress Note: Neuro: - Patient follows commands, he was intubated around 0330 (paralytic agent used) he withdraws to painful stimuli only after intubation. - At beginning of shift eyes gazing downwards (team aware) . After intubation his eyes are centered. - Pupils are equal, but sluggish to light. - Patient is on bedrest. - Pt c/o of pain (tylenol provided) prior to intubation. Integumentary: - EVD present in R side of head. Drain monitored as ordered. - No wounds encountered. Respiratory: - During beginning of shift patient was on NC @ 4 liters. Around 1130pm patient was tachypnic, shallow breathing and SPo2 borderline 90's. Provider at bedside (lasix, and HFNC ordered). RT placed patient back on HFNC - Lungs were diminished throughout (some rhonchi heard) - Scant secretions present. - Around 0330 patient was tachypnic and SPO2 decreasing into the low 80's (RT and provider notified), RT suctioned patient without improvement. Intubation performed (RT, supercharge repair supervisor and provider at bedside). CT head performed pot intubation as ordered. Cardiac: - NSR - Pulses palpable on all extremities. GI: - Patient is NPO on TF. (TF on hold after intubation) - DH present at 65cm - No BM tonight. : - Patient has not voided since 1530 today. Bladder scan showed 325 ml around 2100 (provider notified). - Around midnight bladder scan showed 452 ml. Provider notified and rebolledo catheter was ordered and placed (lasix was given per orders.) Social: - updated post intubation by provider. Drips: - Propofol on hold (assessing neuro status), pt was paralyzed during intubation. - KVO Lines: - x3 PIV Important events overnight: - Around 0330 patient was tachypnic and SPO2 decreasing into the 80's (RT and provider notified), RT suctioned patient but not improvement. Intubation performed (RT, supercharge repair supervisor and provider at bedside). CT head performed per orders. Problem: Adult Inpatient Plan of Care Goal: Optimal Comfort and Wellbeing Outcome: Ongoing (Interventions Implemented as Appropriate) Problem: Adult Inpatient Plan of Care Goal: Absence of Hospital-Acquired Illness or Injury Outcome: Ongoing (Interventions Implemented as Appropriate) Problem: Fall Injury Risk Goal: Absence of Fall and Fall-Related Injury Outcome: Ongoing (Interventions Implemented as Appropriate) * Plan of Care - Anoop Arias RN - 04/19/2023 6:50 PM EDT OUTCOME EVALUATION NOTE: OUTCOME SUMMARY: Pt received intubated and sedated. Extubated @0940, remained restless throughout the shift; Prn meds given for agitation; poor outcome, restrained D/C, sitter at bedside. Patient received on vent, transitioned to high flow and then NC 4L at the end of shift. NSR with occasional PVCs; potassium repleted per order. ICP Q1 8-12 ranging; R frontal EVD in place; draining 30-40. ~1500 changes in neuro;eye deviation downward, provider assessed at bedside, STAT CT scan done . TF initiated running @15mL; next advance at 2300. PRN lasix. given x2 per order, Rebolledo removed; urinal provided; adequate UOP. Family at bedside. PLAN MOVING FORWARD: Neuro q1 ICP q1 VS q1 EVD Q2 SBP <160 CPG GOAL OUTCOME EVALUATION: Problem: Restraint, Nonbehavioral (Nonviolent) Goal: Discontinuation Criteria Achieved Outcome: Ongoing (Interventions Implemented as Appropriate) Problem: Adjustment to Illness (Stroke, Hemorrhagic) Goal: Optimal Coping Outcome: Ongoing (Interventions Implemented as Appropriate) Problem: Bowel Elimination Impaired (Stroke, Hemorrhagic) Goal: Effective Bowel Elimination Outcome: Ongoing (Interventions Implemented as Appropriate) Problem: Cerebral Tissue Perfusion (Stroke, Hemorrhagic) Goal: Optimal Cerebral Tissue Perfusion Outcome: Ongoing (Interventions Implemented as Appropriate) Problem: Cognitive Impairment (Stroke, Hemorrhagic) Goal: Optimal Cognitive Function Outcome: Ongoing (Interventions Implemented as Appropriate) Problem: Communication Impairment (Stroke, Hemorrhagic) Goal: Effective Communication Skills Outcome: Ongoing (Interventions Implemented as Appropriate) Problem: Functional Ability Impaired (Stroke, Hemorrhagic) Goal: Optimal Functional Ability Outcome: Ongoing (Interventions Implemented as Appropriate) Problem: Pain (Stroke, Hemorrhagic) Goal: Acceptable Pain Control Outcome: Ongoing (Interventions Implemented as Appropriate) Problem: Respiratory Compromise (Stroke, Hemorrhagic) Goal: Effective Oxygenation and Ventilation Outcome: Ongoing (Interventions Implemented as Appropriate) Problem: Sensorimotor Impairment (Stroke, Hemorrhagic) Goal: Improved Sensorimotor Function Outcome: Ongoing (Interventions Implemented as Appropriate) Problem: Swallowing Impairment (Stroke, Hemorrhagic) Goal: Oral Intake without Aspiration Outcome: Ongoing (Interventions Implemented as Appropriate) Problem: Urinary Elimination Impaired (Stroke, Hemorrhagic) Goal: Effective Urinary Elimination Outcome: Ongoing (Interventions Implemented as Appropriate) Problem: Fall Injury Risk Goal: Absence of Fall and Fall-Related Injury Outcome: Ongoing (Interventions Implemented as Appropriate) Problem: Adult Inpatient Plan of Care Goal: Plan of Care Review Outcome: Ongoing (Interventions Implemented as Appropriate) Goal: Patient-Specific Goal (Individualized) Outcome: Ongoing (Interventions Implemented as Appropriate) Goal: Absence of Hospital-Acquired Illness or Injury Outcome: Ongoing (Interventions Implemented as Appropriate) Goal: Optimal Comfort and Wellbeing Outcome: Ongoing (Interventions Implemented as Appropriate) Goal: Readiness for Transition of Care Outcome: Ongoing (Interventions Implemented as Appropriate) * Consult Note - Angelia Salmon RN - 04/19/2023 2:08 PM EDT Images from the original note were not included. Infiltration/Extravasation Scale Instructions: Strikeout non-applicable grades, highlight the grade which applies to this patient byBOLD lettering and COLOR RED 2. Skin blanched Edema 1 to 6 inches (2.5 to 15 cm) in any direction Or 6 -25% of limb affected Specific details of infiltration/extravasation Medication infiltrated Precedex Measurement in cm of length and width of affected area---Affected extremity 3 x 3.5 cm Measurement of Circumference in cm of Infiltrated area of affected extremity 35.5 cm Medicated treatment given per policy/ order n/a, (no treatment needed per policy) Plan for continued monitoring of infiltration/extravasation Name of MD keyla Ramirez (04/18 2140) HERB DOCTOR CARING FOR THIS PATIENT WILL CONTINUE TO MONITOR AND WILL ASSUME CARE, VASCULAR ACCESS WILL NOT FOLLOW THIS EVENT AT THE SIGNING OF THIS NOTE. * Consult Note - Andi Abbott MD - 04/18/2023 10:16 AM EDT Neurology Consult Note Patient name:Myla Acosta Date of :1955 Admit date: 04/18/2023 Attending: Scar CC: ICH Date last well known:: 04/17/23 Time last well known:: 2099 Date of discovery of symptoms:: 04/18/23 Time of discovery of symptoms:: 0000 Was IV Thrombolytics given?: No Other (specify) Was dysphagia screen performed?: Yes Date of Dysphagia Screen: 04/18/23 Time of Dysphagia Screen: 1050 Did patient pass dysphagia screen?: No NIH Stroke Scale NIH Stroke Scale Date 04/18/23 NIH Stroke Scale Time 1050 Level of Consciousness 1 LOC Questions 2 LOC Commands 0 Best Gaze 1 Vision 0 Facial Palsy 0 Motor Arm, Left 0 Motor Arm, Right 0 Motor Leg, Left 0 Motor Leg, Right 0 Limb Ataxia (UT) Sensory (UT) Best Language 3 (intubated) Dysarthria 0 Extinction and Inattention: 0 (UT) NIH Total Score We have been asked to see Myla Acosta by NCCU. ID: Myla 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 without significant PMH transferred for R cerebellar [facility] with ANIL. Per chart review patient LKW 2100. Patient went to bed normal. No recent trauma. When he woke up hehad vertigo and emesis. He presented to OSH and was reportedly awake, following commands. BP was noted to be in the 230/140, dysmetria on the R and LLE weakness (reportde to have some left leg weakness). and he was started on nicardipine with a systolic goal of less than 140. Intubated due to somnol ence. CTH demonstrated cerebellar IPH with IVH with casting of the fourth and third ventricles. Labs notable for K of 2.6, BG 197. EKG sinus tachy, NSG initial eval with GCS of 7. Subsequently EVD placed. EVD currently at 7mmHg. Social 3 drinks per day. No tobacco use. Interval Hx: Past Medical History: Patient Active Problem List Diagnosis Code ICH (intracerebral hemorrhage) I61.9 Medications: Allergies: Not on File Family history: No family history on file. Social history: As above Physical Exam: Patient Vitals for the past 8 hrs: BP Temp Temp src Pulse Resp SpO2 Weight 04/18/23 1100 131/72 36.5 ??C (97.7 ??F) -- 81 18 95 % -- 04/18/23 1000 122/66 36.5 ??C (97.7 ??F) Bladder 74 15 95 % -- 04/18/23 0905 169/78 36.5 ??C (97.7 ??F) -- 90 14 95 % -- 04/18/23 0900 (!) 165/92 36.5 ??C (97.7 ??F) -- 75 24 96 % -- 04/18/23 0855 -- -- -- -- 13 97 % -- 04/18/23 0854 -- -- -- -- 13 98 % -- 04/18/23 0800 132/77 36.3 ??C (97.3 ??F) Bladder 70 14 100 % -- 04/18/23 0758 -- -- -- 69 12 99 % -- 04/18/23 0735 127/73 -- -- 69 12 99 % -- 04/18/23 0730 131/75 -- -- 69 12 99 % -- 04/18/23 0725 132/74 -- -- 69 12 99 % -- 04/18/23 0720 130/77 -- -- 69 12 99 % -- 04/18/23 0715 138/77 -- -- 68 12 99 % -- 04/18/23 0700 (!) 142/93 -- -- 74 12 97 % -- 04/18/23 0651 -- -- -- -- 16 -- -- 04/18/23 0645 155/88 -- -- 74 17 95 % 111.8 kg (246 lb 7.6 oz) EVD in place, sedated on propofol GEN- Awakens to tactile stimulation, eyes open spontaneously, follows simple commands CN- PERRL, no clear facial asymmetry MOTOR- in restraints moves all 4 extremities spontaneously SENSATION -deferred CEREBELLUM -deferred CV/PULM - RRR, no murmurs; LCBTA Labs: I/O 24 Hours: No intake/output data recorded. I/O this shift: In: 455.9 [I.V.:455.9] Out: 1206 [Urine:1175; Other:31] Recent Labs 04/18/23 0650 WBC 10.6* HGB 14.7 HCT 42.9 PLATELET 214 NEUTROABS 9.33* Recent Labs 04/18/23 0650 NA 136 K 3.2* CL 96* CO2 28 BUN 16 CREATININE 1.29 GLUCOSE 218* Recent Labs 04/18/23 0650 CALCIUM 9.4 Recent Labs 04/18/23 0650 AST 32 ALT 26 ALKPHOS 74 BILITOT 0.5 No results for input(s): TROPONINT, CK in the last 168 hours. No results for input(s): PHART, BMI4GBI, PO2ART, UFE4ZCQ in the last 168 hours. Recent Labs 04/18/23 0650 INR 1.1 Lipid Panel No results for input(s): HA1C in the last 7068 hours. Diagnostic Tests and Imaging: Results for orders placed or performed during the hospital encounter of 04/18/23 CT Angiogram [place] [facility] [place] (Exam End: 04/18/2023 9:45 AM) Impression No evidence of aneurysm or vascular malformation. Thank you for letting us participate in the care of this patient. If you are a health care provider and have any questions regarding this report, please contact the number below. For patients who have questions please contact the health manager managed care that requested your imaging first. Head wo Contrast (Generic) (Exam End: 04/18/2023 9:45 AM) Impression 1. Expected postoperative changes following placement of a right frontal extraventricular drain with stable hydrocephalus. 2. No additional significant change. Thank you for letting us participate in the care of this patient. If you are a health care provider and have any questions regarding this report, please contact the number below. For patients who have questions please contact the health manager managed care that requested your imaging first. Assessment and Plan: 67 y.o. male without significant PMH transferred for R cerebellar IPH with ANIL. Per chart review patient seems to have improved with the EVD. Limited exam due to agitation, and restraints at this time. Suspected etiology is hypertensive given initial blood pressure, would recommend obtaining utox, LFTs, and non- urgent MRI brain wwo and completing remainder of stroke work up with A1c, LDL, TTE,, and monitoring on telemetry. Agree with SBP goal of < 140. #Neuro: -MRI brain wwo -Utox, A1c, LDL -TTE -telemetry -SBP goal <140. Narciso Wilks, DO Please page Vascular Neurology at #[phone] with any questions. [place] [address] Neurology Attending Attestation I evaluated the patient with the neurology resident. I have reviewed the medical records and patient's history, as well as the resident???s history and examination findings, and I agree with the details as written. My neurologic examination confirms the resident???s findings. We formulated the assessment and plan after a detailed discussion as documented. Patient interviewed and examined together with neuology resident. Data from [facility] and PACS reviewed. Deep R CB bleed with ANIL, now s/p EVD for obstructive hydrocephalus. Hypertensive etiology is most likely (please get EKG and echocardiogram looking evidence of LVH). No obvious coagulopathy. UDS should be sent to exclude substance-induced (cocaine, methamphetamine). MRI to exclude underlying tumor. Andi Abbott MD Attending Neurologist * Consult Note - Chinyere Cruz MD - 04/18/2023 7:00 AM EDT [facility] NEUROSURGERY Consult Date: 04/18/2023 ID: Myla Acosta, 67 y.o. male : 1955 Admission Date: 04/18/2023 PCP: None Consult information: Referring Service: NCCU Consulting Attending: Tana Smith MD Neurosurgery Attending: Nayana Barker MD Place of Consult: [facility] ED CC/Reason for consult: Cerebellar IPH with IVH History of Present Illness: Myla 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 male, largely without routine medical care and not on any medications, presenting in transfer from OSH for R cerebellar IPH and intraventricular extension. Per report, the patient went to bed around 2100 last night, and then was awoken from sleep early this morning with severe vertigo and emesis. At OSH he was reportedly awake and arousable to voice butsomewhat lethargic, able to follow commands briskly x 4. He was hypertensive on arrival there to the 230s systolic so was started on a Nicardipine gtt with goal <140. Coags and platelets within normal range at OSH. Unfortunately the patient became more somnolent just prior to transfer out of OSHso he was intubated with succinylcholine. On arrival to the NCCU, patient is off sedation with exam as below. Past Medical History: No past medical history on file. Patient Active Problem List Diagnosis Code ICH (intracerebral hemorrhage) I61.9 Past Surgical History: No past surgical history on file. Medications: No current facility-administered medications on file prior to encounter. No current outpatient medications on file prior to encounter. Scheduled Meds: Continuous Infusions: PRN Meds: Allergies: Not on File Social History: Social History Socioeconomic History Marital status: Not on file Spouse name: Not on file Number of children: Not on file Years of education: Not on file Highest education level: Not on file Occupational History Not on file Tobacco Use Smoking status: Not on file Smokeless tobacco: Not on file Substance and Sexual Activity Alcohol use: Not on file Drug use: Not on file Sexual activity: Not on file Other Topics Concern Not on file Social History Narrative Not on file Social Determinants of Health Financial Resource Strain: Not on file Food Insecurity: Not on file Transportation Needs: Not on file Physical Activity: Not on file Intimate Partner Violence: Not on file Housing Stability: Not on file Family History: No family history on file. Review of Systems: Please see HPI for pertinent details. 12 point ROS is otherwise negative. Vital Signs: Visit Vitals BP 132/77 (BP Location (NBP): Left arm, Patient Position: Lying) Pulse 70 Temp 36.3 ??C (97.3 ??F) (Bladder) Resp 14 Wt 111.8 kg (246 lb 7.6 oz) SpO2 100% Physical Exam: General: Obese elderly male. Intubated, off sedation. HEENT: Atraumatic, normocephalic. Cardiovascular: Regular rate and rhythm. Respiratory: In volume control on ventilator Extremities: WWP. Neurological: Mental Status/Cognitive: GCS [id number] Eyes closed Grimace, biting tube to noxious (+) corneal, cough/gag Pupils 2mm BL and reactive MOTOR: RUE: localize LUE: nonspecific withdrawal RLE: weak withdrawal LLE: weak withdrawal Labs: Recent Labs 04/18/23 0650 WBC 10.6* HGB 14.7 PLATELET 214 Recent Labs 04/18/23 0650 NA 136 K 3.2* CL 96* CO2 28 BUN 16 CREATININE 1.29 GLUCOSE 218* Recent Labs 04/18/23 0650 PT 12.4 INR 1.1 Recent Labs 04/18/23 0650 AST 32 ALT 26 BILITOT 0.5 ALKPHOS 74 PROT 8.7* Imaging: CTH: 2.5cm R cerebellar IPH with intraventricular extension casting the fourth and third ventriclesup to the frontal horns bilaterally. CTA poor quality not useful Imaging independently reviewed. Assessment: Myla 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 male, largely without routine medical care and not on anymedications, presenting in transfer from OSH for R cerebellar IPH with intraventricular extension and hydrocephalus. Exam and decline prior to arrival consistent with hydrocephalus seen on CT secondary to extensive IVH. present on patient's arrival and consented to R frontal EVD at bedside. Will obtain CTH andCTA after procedure is complete for assessment of drain and to r/o vascular cause of hemorrhage. Problem List: IPH, IVH Hydrocephalus Plan/Recommendations: -Admit to NCCU, Dr. Smith -R frontal EVD at bedside -Q1H neuro checks -BP control, keep SBP 90-140 -DVT ppx with SCDs, hold antiplatelets/anticoagulants -NPO -Repeat CTH/CTA CACO after EVD -MRI brain wwo when able -Rest per NCCU Today's plan of care was discussed with attending neurosurgeon, Nayana Barker MD. Chinyere Cruz MD 04/18/2023 8:06 AM [facility] Neurosurgery Inpatient Pager: [phone] Personal Pager: [phone] Active Hospital Problems Diagnosis ICH (intracerebral hemorrhage) Resolved Hospital Problems No resolved problems to display. There are no active non-hospital problems to display for this patient. Associated attestation - Nayana Barker MD - 04/27/2023 3:33 PM EDT I have seen and examined the patient, providing grande components as outlined below. I have reviewed the resident???s note; my evaluation of the patient is below: 67 y.o. gentleman presenting to the ED after being transferred for spontaneous right cerebellar IPHwith intraventricular extension. On exam, he is intubated. Off of sedation he is localizing with the Right and withdrawing on the left. His cranial nerves are intact. We will place an EVD for CSF diversion and ICP management in the setting of IVH with poor neurologic exam,. His family was consentedfor this procedure. documented in this encounter Plan of Treatment Upcoming Encounters Date Type Department Care Team (Late st Contact Info) Description 04/16/2024 11:00 AM EDT [place] [address] Joie Motley PA [facility] [address] [place] [address] Pending Results Name Type Priority Associated Diagnoses Date /Time EKG 12 Lead ECG Routine 05/09/2023 10 :57 AM EDT EKG 12 Lead ECG Routine 05/09/2023 10 :57 AM EDT EKG 12 Lead ECG Routine 05/16/2023 4: 46 PM EDT EKG 12 Lead ECG Routine 05/16/2023 4: 46 PM EDT EKG 12 Lead ECG Routine 05/16/2023 4: 46 PM EDT EKG 12 Lead ECG Routine 05/19/2023 5: 28 AM EDT documented as of this encounter Procedures Procedure Name Priority Date/Time Associated Diagnosis Comments HEMOGRAM Routine 06/02/2023 1:00 AM EDT DIFFERENTIAL, AUTOMATED Routine 06/02/19 1:00 AM EDT CBC (WITH DIFF) Routine 06/02/2023 12:59 AM EDT PHOSPHORUS Timed 06/02/2023 12:59 AM EDT MAGNESIUM Timed 06/02/2023 12:59 AM EDT BASIC METABOLIC PANEL Routine 06/02/2023 12:59 AM EDT HEMOGRAM Routine 06/01/2023 1:07 AM EDT DIFFERENTIAL, AUTOMATED Routine 06/01/19 1:07 AM EDT CBC (WITH DIFF) Routine 06/01/2023 1:06 AM EDT PHOSPHORUS Timed 06/01/2023 1:06 AM EDT MAGNESIUM Timed 06/01/2023 1:06 AM EDT BASIC METABOLIC PANEL Routine 06/01/2023 1:06 AM EDT HEMOGRAM Routine 05/31/2023 1:33 AM EDT DIFFERENTIAL, AUTOMATED Routine 05/31/19 1:33 AM EDT CBC (WITH DIFF) Routine 05/31/2023 1:33 AM EDT PHOSPHORUS Timed 05/31/2023 1:33 AM EDT MAGNESIUM Timed 05/31/2023 1:33 AM EDT BASIC METABOLIC PANEL Routine 05/31/2023 1:33 AM EDT XR ABDOMEN FLAT AND UPRIGHT Routine 05/30/2023 10:00 PM EDT CBC (WITH DIFF) Routine 05/30/2023 5:01 AM EDT PHOSPHORUS Timed 05/30/2023 5:01 AM EDT MAGNESIUM Timed 05/30/2023 5:01 AM EDT BASIC METABOLIC PANEL Routine 05/30/2023 5:01 AM EDT HEMOGRAM Routine 05/30/2023 5:00 AM EDT DIFFERENTIAL, AUTOMATED Routine 05/30/19 5:00 AM EDT UREA NITROGEN, URINE, RANDOM Routine 05/29/2023 2:55 PM EDT SODIUM, URINE, RANDOM Routine 05/29/2023 2:55 PM EDT CREATININE, URINE, RANDOM Routine 05/29/2023 2:55 PM EDT SODIUM Routine 05/29/2023 2:55 PM EDT CBC (WITH DIFF) Routine 05/29/2023 4:11 AM EDT PHOSPHORUS Timed 05/29/2023 4:11 AM EDT MAGNESIUM Timed 05/29/2023 4:11 AM EDT BASIC METABOLIC PANEL Routine 05/29/2023 4:11 AM EDT HEMOGRAM Routine 05/29/2023 4:10 AM EDT DIFFERENTIAL, AUTOMATED Routine 05/29/19 4:10 AM EDT XR ABDOMEN FLAT AND UPRIGHT Routine 05/28/2023 4:03 PM EDT POCT GLUCOSE Routine 05/28/2023 7:57 AM EDT HEMOGRAM Routine 05/28/2023 5:12 AM EDT DIFFERENTIAL, AUTOMATED Routine 05/28/19 5:12 AM EDT CBC (WITH DIFF) Routine 05/28/2023 5:10 AM EDT PHOSPHORUS Timed 05/28/2023 5:10 AM EDT MAGNESIUM Timed 05/28/2023 5:10 AM EDT BASIC METABOLIC PANEL Routine 05/28/2023 5:10 AM EDT HEMOGRAM Routine 05/27/2023 6:20 AM EDT DIFFERENTIAL, AUTOMATED Routine 05/27/19 6:20 AM EDT CBC (WITH DIFF) Routine 05/27/2023 6:20 AM EDT PHOSPHORUS Timed 05/27/2023 6:20 AM EDT MAGNESIUM Timed 05/27/2023 6:20 AM EDT BASIC METABOLIC PANEL Routine 05/27/2023 6:20 AM EDT EEG Routine 05/26/2023 9:54 AM EDT HEMOGRAM Routine 05/26/2023 2:50 AM EDT DIFFERENTIAL, AUTOMATED Routine 05/26/19 2:50 AM EDT CBC (WITH DIFF) Routine 05/26/2023 2:49 AM EDT PHOSPHORUS Timed 05/26/2023 2:49 AM EDT MAGNESIUM Timed 05/26/2023 2:49 AM EDT BASIC METABOLIC PANEL Routine 05/26/2023 2:49 AM EDT HC TROPONIN T STAT 05/25/2023 7:52 PM EDT POCT GLUCOSE Routine 05/25/2023 7:52 PM EDT EKG 12-LEAD Routine 05/25/2023 6:43 PM EDT Nontraumatic intracerebral hemorrhage of cerebellum, unspecified laterality POCT GLUCOSE Routine 05/25/2023 6:01 PM EDT ALDOSTERONE Routine 05/25/2023 5:06 PM EDT RENIN ACTIVITY Routine 05/25/2023 5:06 PM EDT HC TROPONIN T STAT 05/25/2023 4:55 PM EDT URINALYSIS MICROSCOPIC EXAM Routine 05/25/2023 4:47 PM EDT URINE CULTURE Routine 05/25/2023 4:47 PM EDT EKG 12-LEAD Routine 05/25/2023 4:07 PM EDT SVT (supraventricular tachycardia) URINALYSIS WITH REFLEX CULTURE Routine 05/25/2023 2:53 PM EDT POCT GLUCOSE Routine 05/25/2023 12:15 PM EDT POCT GLUCOSE Routine 05/25/2023 11:25 AM EDT POCT GLUCOSE Routine 05/25/2023 8:37 AM EDT HEMOGRAM Routine 05/25/2023 12:47 AM EDT DIFFERENTIAL, AUTOMATED Routine 05/25/19 12:47 AM EDT CBC (WITH DIFF) Routine 05/25/2023 12:47 AM EDT PHOSPHORUS Timed 05/25/2023 12:47 AM EDT MAGNESIUM Timed 05/25/2023 12:47 AM EDT BASIC METABOLIC PANEL Routine 05/25/2023 12:47 AM EDT POCT GLUCOSE Routine 05/24/2023 9:55 PM EDT POCT GLUCOSE Routine 05/24/2023 4:09 PM EDT POCT GLUCOSE Routine 05/24/2023 11:55 AM EDT HEMOGRAM Routine 05/24/2023 5:12 AM EDT DIFFERENTIAL, AUTOMATED Routine 05/24/19 5:12 AM EDT CBC (WITH DIFF) Routine 05/24/2023 5:12 AM EDT PHOSPHORUS Timed 05/24/2023 5:12 AM EDT MAGNESIUM Timed 05/24/2023 5:12 AM EDT BASIC METABOLIC PANEL Routine 05/24/2023 5:12 AM EDT POCT GLUCOSE Routine 05/23/2023 5:13 PM EDT POCT GLUCOSE Routine 05/23/2023 11:13 AM EDT POCT GLUCOSE Routine 05/23/2023 8:33 AM EDT POCT GLUCOSE Routine 05/23/2023 6:13 AM EDT POCT GLUCOSE Routine 05/23/2023 4:12 AM EDT POCT GLUCOSE Routine 05/23/2023 12:55 AM EDT HEMOGRAM Routine 05/23/2023 12:51 AM EDT DIFFERENTIAL, AUTOMATED Routine 05/23/19 12:51 AM EDT CBC (WITH DIFF) Routine 05/23/2023 12:48 AM EDT PHOSPHORUS Timed 05/23/2023 12:48 AM EDT MAGNESIUM Timed 05/23/2023 12:48 AM EDT BASIC METABOLIC PANEL Routine 05/23/2023 12:48 AM EDT POCT GLUCOSE Routine 05/22/2023 7:45 PM EDT POCT GLUCOSE Routine 05/22/2023 4:21 PM EDT ECHO LMTD W CONTRAST W LMTD SPEC DOPP COLOR DOPP Routine 05/22/2023 2:21 PM EDT Cardiorenal syndrome with renal failure POCT GLUCOSE Routine 05/22/2023 11:44 AM EDT POCT GLUCOSE Routine 05/22/2023 7:41 AM EDT POCT GLUCOSE Routine 05/22/2023 6:21 AM EDT HEMOGRAM Routine 05/22/2023 12:35 AM EDT DIFFERENTIAL, AUTOMATED Routine 05/22/19 12:35 AM EDT POCT GLUCOSE Routine 05/22/2023 12:33 AM EDT CBC (WITH DIFF) Routine 05/22/2023 12:31 AM EDT PHOSPHORUS Timed 05/22/2023 12:31 AM EDT MAGNESIUM Timed 05/22/2023 12:31 AM EDT FOLATE, SERUM Routine 05/22/2023 12:31 AM EDT VITAMIN B12 Routine 05/22/2023 12:31 AM EDT BASIC METABOLIC PANEL Routine 05/22/2023 12:31 AM EDT POCT GLUCOSE Routine 05/21/2023 8:22 PM EDT POCT GLUCOSE Routine 05/21/2023 4:57 PM EDT BLOOD GAS VENOUS POC Routine 05/21/2023 10:56 AM EDT HEMOGRAM Routine 05/21/2023 10:27 AM EDT DIFFERENTIAL, AUTOMATED Routine 05/21/19 10:27 AM EDT CBC (WITH DIFF) Routine 05/21/2023 10:27 AM EDT PHOSPHORUS Routine 05/21/2023 10:27 AM EDT MAGNESIUM Routine 05/21/2023 10:27 AM EDT COMPREHENSIVE METABOLIC PANEL Routine 05/21/2023 10:27 AM EDT BLOOD GAS VENOUS POC Routine 05/20/2023 6:06 PM EDT BASIC METABOLIC PANEL Routine 05/20/2023 6:00 PM EDT POCT GLUCOSE Routine 05/20/2023 4:25 PM EDT ELECTROLYTES, URINE, RANDOM Routine 05/20/2023 1:37 PM EDT OSMOLALITY, URINE, RANDOM Routine 05/20/2023 1:37 PM EDT BLOOD GAS VENOUS POC Routine 05/20/2023 1:10 PM EDT XR CHEST ONE VIEW Routine 05/20/2023 12: 34 PM EDT BLOOD GAS VENOUS POC Routine 05/20/2023 11:43 AM EDT BASIC METABOLIC PANEL Timed 05/20/2023 11:36 AM EDT POCT GLUCOSE Routine 05/20/2023 9:[address] HEAD WO CONTRAST (GENERIC) STAT 05/20/2023 8:59 AM EDT POTASSIUM Timed 05/20/2023 8:40 AM EDT EKG 12-LEAD Routine 05/20/2023 8:27 AM EDT Hyperkalemia SCAN, PERIPHERAL BLOOD Routine 3:42 AM EDT HEMOGRAM Routine 05/20/2023 3:42 AM EDT DIFFERENTIAL, AUTOMATED Routine 05/20/19 3:42 AM EDT CBC (WITH DIFF) Routine 05/20/2023 3:42 AM EDT PHOSPHORUS Timed 05/20/2023 3:42 AM EDT MAGNESIUM Timed 05/20/2023 3:42 AM EDT BASIC METABOLIC PANEL Timed 05/20/2023 3:42 AM EDT POCT GLUCOSE Routine 05/20/2023 3:41 AM EDT POCT GLUCOSE Routine 05/20/2023 12:05 AM EDT POCT GLUCOSE Routine 05/19/2023 8:13 PM EDT POCT GLUCOSE Routine 05/19/2023 4:35 PM EDT POCT GLUCOSE Routine 05/19/2023 11:18 AM EDT POCT GLUCOSE Routine 05/19/2023 7:41 AM EDT EKG 12-LEAD Routine 05/19/2023 5:28 AM EDT EKG 12-LEAD Routine 05/19/2023 5:28 AM EDT POCT GLUCOSE Routine 05/19/2023 3:04 AM EDT PHOSPHORUS Timed 05/19/2023 12:33 AM EDT MAGNESIUM Timed 05/19/2023 12:33 AM EDT BASIC METABOLIC PANEL Timed 05/19/2023 12:33 AM EDT POCT GLUCOSE Routine 05/19/2023 12:23 AM EDT POCT GLUCOSE Routine 05/18/2023 7:34 PM EDT POCT GLUCOSE Routine 05/18/2023 4:03 PM EDT POCT GLUCOSE Routine 05/18/2023 11:49 AM EDT POCT GLUCOSE Routine 05/18/2023 8:03 AM EDT POCT GLUCOSE Routine 05/18/2023 4:29 AM EDT HEMOGRAM Routine 05/18/2023 12:37 AM EDT DIFFERENTIAL, AUTOMATED Routine 05/18/19 24 12:37 AM EDT CBC (WITH DIFF) Routine 05/18/2023 12:37 AM EDT PHOSPHORUS Timed 05/18/2023 12:37 AM EDT MAGNESIUM Timed 05/18/2023 12:37 AM EDT BASIC METABOLIC PANEL Timed 05/18/2023 12:37 AM EDT POCT GLUCOSE Routine 05/18/2023 12:35 AM EDT XR ABDOMEN 1 VIEW Routine 05/17/2023 10: 43 PM EDT POCT GLUCOSE Routine 05/17/2023 8:12 PM EDT POCT GLUCOSE Routine 05/17/2023 4:29 PM EDT EKG 12-LEAD Routine 05/17/2023 2:33 PM EDT Agitation POCT GLUCOSE Routine 05/17/2023 12:20 PM EDT POCT GLUCOSE Routine 05/17/2023 7:50 AM EDT POCT GLUCOSE Routine 05/17/2023 4:11 AM EDT PHOSPHORUS Timed 05/17/2023 12:47 AM EDT MAGNESIUM Timed 05/17/2023 12:47 AM EDT BASIC METABOLIC PANEL Timed 05/17/2023 12:47 AM EDT POCT GLUCOSE Routine 05/17/2023 12:41 AM EDT POCT GLUCOSE Routine 05/16/2023 7:41 PM EDT EKG 12-LEAD Routine 05/16/2023 4:46 PM EDT EKG 12-LEAD Routine 05/16/2023 4:46 PM EDT EKG 12-LEAD Routine 05/16/2023 4:46 PM EDT EKG 12-LEAD Routine 05/16/2023 4:[address] ANGIOGRAM CHEST ABDOMEN PELVIS WWO CONTRAST Routine 05/16/2023 4:16 PM EDT POCT GLUCOSE Routine 05/16/2023 3:10 PM EDT POCT GLUCOSE Routine 05/16/2023 11:06 AM EDT POCT GLUCOSE Routine 05/16/2023 7:40 AM EDT POCT GLUCOSE Routine 05/16/2023 4:22 AM EDT HEMOGRAM Routine 05/16/2023 12:42 AM EDT DIFFERENTIAL, AUTOMATED Routine 05/16/19 24 12:42 AM EDT CBC (WITH DIFF) Routine 05/16/2023 12:42 AM EDT PHOSPHORUS Timed 05/16/2023 12:42 AM EDT MAGNESIUM Timed 05/16/2023 12:42 AM EDT BASIC METABOLIC PANEL Timed 05/16/2023 12:42 AM EDT POCT GLUCOSE Routine 05/16/2023 12:41 AM EDT POCT GLUCOSE Routine 05/15/2023 7:26 PM EDT POCT GLUCOSE Routine 05/15/2023 3:51 PM EDT POCT GLUCOSE Routine 05/15/2023 12:05 PM EDT POCT GLUCOSE Routine 05/15/2023 7:53 AM EDT POCT GLUCOSE Routine 05/15/2023 4:21 AM EDT HEMOGRAM Routine 05/15/2023 12:35 AM EDT DIFFERENTIAL, AUTOMATED Routine 05/15/19 24 12:35 AM EDT CBC (WITH DIFF) Routine 05/15/2023 12:35 AM EDT PHOSPHORUS Timed 05/15/2023 12:35 AM EDT MAGNESIUM Timed 05/15/2023 12:35 AM EDT BASIC METABOLIC PANEL Timed 05/15/2023 12:35 AM EDT POCT GLUCOSE Routine 05/15/2023 12:33 AM EDT POCT GLUCOSE Routine 05/14/2023 8:33 PM EDT XR ABDOMEN 1 VIEW Routine 05/14/2023 5:4 9 PM EDT POCT GLUCOSE Routine 05/14/2023 5:48 PM EDT POCT GLUCOSE Routine 05/14/2023 12:10 PM EDT POCT GLUCOSE Routine 05/14/2023 8:00 AM EDT HEMOGRAM Routine 05/14/2023 1:30 AM EDT DIFFERENTIAL, AUTOMATED Routine 05/14/19 1:30 AM EDT CBC (WITH DIFF) Routine 05/14/2023 1:30 AM EDT PHOSPHORUS Timed 05/14/2023 1:30 AM EDT MAGNESIUM Timed 05/14/2023 1:30 AM EDT BASIC METABOLIC PANEL Timed 05/14/2023 1:30 AM EDT POCT GLUCOSE Routine 05/13/2023 11:53 PM EDT POCT GLUCOSE Routine 05/13/2023 9:25 PM EDT POCT GLUCOSE Routine 05/13/2023 3:37 PM EDT BASIC METABOLIC PANEL Routine 05/13/2023 12:52 PM EDT POCT GLUCOSE Routine 05/13/2023 11:19 AM EDT POCT GLUCOSE Routine 05/13/2023 8:59 AM EDT HEMOGRAM Routine 05/13/2023 4:57 AM EDT DIFFERENTIAL, AUTOMATED Routine 05/13/19 4:57 AM EDT CBC (WITH DIFF) Routine 05/13/2023 4:57 AM EDT PHOSPHORUS Routine 05/13/2023 4:57 AM EDT MAGNESIUM Routine 05/13/2023 4:57 AM EDT BASIC METABOLIC PANEL Routine 05/13/2023 4:57 AM EDT POCT GLUCOSE Routine 05/13/2023 3:38 AM EDT POCT GLUCOSE Routine 05/12/2023 11:13 PM EDT POCT GLUCOSE Routine 05/12/2023 8:45 PM EDT POCT GLUCOSE Routine 05/12/2023 3:45 PM EDT POCT GLUCOSE Routine 05/12/2023 11:55 AM EDT DUPLEX FOR DVT, ARM, UNILAT Routine 05/12/2023 10:35 AM EDT Deep vein thrombosis (DVT) of brachial vein of right upper extremity, unspecified chronicity POCT GLUCOSE Routine 05/12/2023 8:53 AM EDT POCT GLUCOSE Routine 05/12/2023 6:03 AM EDT POCT GLUCOSE Routine 05/12/2023 12:12 AM EDT HEMOGRAM Routine 05/12/2023 12:04 AM EDT DIFFERENTIAL, AUTOMATED Routine 05/12/19 12:04 AM EDT CBC (WITH DIFF) Routine 05/12/2023 12:04 AM EDT PHOSPHORUS Timed 05/12/2023 12:04 AM EDT MAGNESIUM Timed 05/12/2023 12:04 AM EDT BASIC METABOLIC PANEL Timed 05/12/2023 12:04 AM EDT POCT GLUCOSE Routine 05/11/2023 7:36 PM EDT MAGNESIUM Routine 05/11/2023 5:49 PM EDT BASIC METABOLIC PANEL Routine 05/11/2023 5:49 PM EDT POCT GLUCOSE Routine 05/11/2023 4:57 PM EDT HC TROPONIN T STAT 05/11/2023 1:45 PM EDT POCT GLUCOSE Routine 05/11/2023 12:17 PM EDT HC TROPONIN T STAT 05/11/2023 10:43 AM EDT BASIC METABOLIC PANEL STAT 05/11/2023 10:43 AM EDT TROPONIN - SERIES Timed 05/11/2023 1:5 3 AM EDT HEMOGRAM Routine 05/11/2023 1:53 AM EDT DIFFERENTIAL, AUTOMATED Routine 05/11/19 1:53 AM EDT CBC (WITH DIFF) Routine 05/11/2023 1:53 AM EDT PHOSPHORUS Timed 05/11/2023 1:53 AM EDT OSMOLALITY Timed 05/11/2023 1:53 AM EDT MAGNESIUM Timed 05/11/2023 1:53 AM EDT BASIC METABOLIC PANEL Timed 05/11/2023 1:53 AM EDT POTASSIUM Routine 05/10/2023 7:50 PM EDT SPECIFIC GRAVITY, URINE Routine 05/10/19 11:34 AM EDT SODIUM, URINE, RANDOM Routine 05/10/2023 11:34 AM EDT OSMOLALITY, URINE, RANDOM Routine 05/10/2023 11:34 AM EDT CHLORIDE, URINE, RANDOM Routine 05/10/19 11:34 AM EDT BASIC METABOLIC PANEL Timed 05/10/2023 11:20 AM EDT DUPLEX FOR DVT, ARM, UNILAT Routine 05/10/2023 10:20 AM EDT Deep vein thrombosis (DVT) of brachial vein of right upper extremity, unspecified chronicity BASIC METABOLIC PANEL Routine 05/10/2023 8:10 AM EDT EKG 12-LEAD Routine 05/10/2023 6:07 AM EDT 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 HEMOGRAM Routine 05/10/2023 2:50 AM EDT DIFFERENTIAL, AUTOMATED Routine 05/10/19 2:50 AM EDT CBC (WITH DIFF) Routine 05/10/2023 2:50 AM EDT PHOSPHORUS Timed 05/10/2023 2:50 AM EDT MAGNESIUM Timed 05/10/2023 2:50 AM EDT BASIC METABOLIC PANEL Timed 05/10/2023 2:50 AM EDT POTASSIUM Routine 05/09/2023 6:32 PM EDT POTASSIUM Routine 05/09/2023 12:54 PM EDT EKG 12-LEAD Routine 05/09/2023 10:57 AM EDT EKG 12-LEAD Routine 05/09/2023 10:57 AM EDT EKG 12-LEAD Routine 05/09/2023 10:57 AM EDT 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 HEMOGRAM Routine 05/09/2023 1:02 AM EDT DIFFERENTIAL, AUTOMATED Routine 05/09/19 24 1:02 AM EDT CBC (WITH DIFF) Routine 05/09/2023 1:02 AM EDT PHOSPHORUS Timed 05/09/2023 1:02 AM EDT MAGNESIUM Timed 05/09/2023 1:02 AM EDT BASIC METABOLIC PANEL Timed 05/09/2023 1:02 AM EDT POTASSIUM Routine 05/08/2023 8:27 PM EDT POTASSIUM Routine 05/08/2023 12:30 PM EDT EKG 12-LEAD Routine 05/08/2023 11:03 AM EDT Dissection of aorta, unspecified portion of aorta HEMOGRAM Routine 05/08/2023 1:36 AM EDT DIFFERENTIAL, AUTOMATED Routine 05/08/19 24 1:36 AM EDT CBC (WITH DIFF) Routine 05/08/2023 1:36 AM EDT PHOSPHORUS Timed 05/08/2023 1:36 AM EDT MAGNESIUM Timed 05/08/2023 1:36 AM EDT BASIC METABOLIC PANEL Timed 05/08/2023 1:36 AM EDT U24 HRS AND VOLUME Routine 05/07/2023 12 :30 PM EDT METANEPHRINES, FRACTIONATED, URINE, 24 HOUR Routine 05/07/2023 12:30 PM EDT HEMOGRAM Routine 05/07/2023 1:10 AM EDT DIFFERENTIAL, AUTOMATED Routine 05/07/19 24 1:10 AM EDT CBC (WITH DIFF) Routine 05/07/2023 1:10 AM EDT TRIGLYCERIDE Timed 05/07/2023 1:10 AM EDT PHOSPHORUS Timed 05/07/2023 1:10 AM EDT MAGNESIUM Timed 05/07/2023 1:10 AM EDT BASIC METABOLIC PANEL Timed 05/07/2023 1:10 AM EDT POTASSIUM Routine 05/06/2023 2:44 PM EDT TRIGLYCERIDE STAT 05/06/2023 10:50 AM EDT LIPASE STAT 05/06/2023 10:50 AM EDT XR ABDOMEN 1 VIEW Routine 05/06/2023 3:3 8 AM EDT LACTATE, WHOLE BLOOD Routine 05/06/2023 2:00 AM EDT HEMOGRAM Routine 05/06/2023 12:30 AM EDT DIFFERENTIAL, AUTOMATED Routine 05/06/19 24 12:30 AM EDT BETA HYDROXYBUTYRATE Timed 05/06/2023 12:30 AM EDT CBC (WITH DIFF) Routine 05/06/2023 12:30 AM EDT TRIGLYCERIDE Routine 05/06/2023 12:30 AM EDT PHOSPHORUS Timed 05/06/2023 12:30 AM EDT MAGNESIUM Timed 05/06/2023 12:30 AM EDT BASIC METABOLIC PANEL Timed 05/06/2023 12:30 AM EDT POTASSIUM Routine 05/05/2023 1:40 PM EDT XR ABDOMEN 1 VIEW Routine 05/05/2023 12: 20 PM EDT DUPLEX FOR DVT, ARM, UNILAT Routine 05/05/2023 11:24 AM EDT 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 EXTUBATE Routine 05/05/2023 11:16 AM EDT SODIUM Routine 05/05/2023 5:25 AM EDT POTASSIUM Routine 05/05/2023 5:25 AM EDT HEMOGRAM Routine 05/05/2023 12:35 AM EDT DIFFERENTIAL, AUTOMATED Routine 05/05/19 12:35 AM EDT CBC (WITH DIFF) Routine 05/05/2023 12:35 AM EDT PHOSPHORUS Timed 05/05/2023 12:35 AM EDT MAGNESIUM Timed 05/05/2023 12:35 AM EDT BASIC METABOLIC PANEL Timed 05/05/2023 12:35 AM EDT XR CHEST ONE VIEW Routine 05/04/2023 11: 20 AM EDT HEMOGRAM Routine 05/04/2023 2:00 AM EDT DIFFERENTIAL, AUTOMATED Routine 05/04/19 2:00 AM EDT CBC (WITH DIFF) Routine 05/04/2023 2:00 AM EDT PHOSPHORUS Timed 05/04/2023 2:00 AM EDT MAGNESIUM Timed 05/04/2023 2:00 AM EDT BASIC METABOLIC PANEL Timed 05/04/2023 2:00 AM EDT BLOOD GAS ARTERIAL POC Routine 12:28 PM EDT HEMOGRAM Routine 05/03/2023 1:06 AM EDT DIFFERENTIAL, AUTOMATED Routine 05/03/19 1:06 AM EDT CBC (WITH DIFF) Routine 05/03/2023 1:06 AM EDT TRIGLYCERIDE Routine 05/03/2023 1:06 AM EDT PHOSPHORUS Timed 05/03/2023 1:06 AM EDT MAGNESIUM Timed 05/03/2023 1:06 AM EDT BASIC METABOLIC PANEL Timed 05/03/2023 1:06 AM EDT XR CHEST ONE VIEW Routine 05/02/2023 8:0 0 PM EDT XR ABDOMEN 1 VIEW Routine 05/02/2023 8:0 0 PM EDT MRSA PCR SCREEN Routine 05/02/2023 12:24 PM EDT VANCOMYCIN LEVEL, RANDOM Timed 05/02/2023 7:[address] HEAD WO CONTRAST (GENERIC) Routine 05/02/2023 4:00 AM EDT HEMOGRAM Routine 05/02/2023 1:05 AM EDT DIFFERENTIAL, AUTOMATED Routine 05/02/19 1:05 AM EDT CBC (WITH DIFF) Routine 05/02/2023 1:05 AM EDT PHOSPHORUS Timed 05/02/2023 1:05 AM EDT MAGNESIUM Timed 05/02/2023 1:05 AM EDT BASIC METABOLIC PANEL Timed 05/02/2023 1:05 AM EDT RENAL DUPLEX COMPLETE Routine 05/01/2023 10:28 AM EDT Dissection of aorta, unspecified portion of aorta VANCOMYCIN LEVEL, RANDOM Timed 05/01/2023 7:[address] HEAD WO CONTRAST (GENERIC) Routine 05/01/2023 4:04 AM EDT HEMOGRAM Routine 05/01/2023 12:40 AM EDT DIFFERENTIAL, AUTOMATED Routine 05/01/19 12:40 AM EDT CBC (WITH DIFF) Routine 05/01/2023 12:40 AM EDT TRIGLYCERIDE Timed 05/01/2023 12:40 AM EDT PHOSPHORUS Timed 05/01/2023 12:40 AM EDT MAGNESIUM Timed 05/01/2023 12:40 AM EDT BASIC METABOLIC PANEL Timed 05/01/2023 12:40 AM EDT LOWER RESPIRATORY CULTURE Routine 04/30/2023 12:45 PM EDT XR CHEST ONE VIEW STAT 04/30/2023 6:2 1 AM EDT PHOSPHORUS Timed 04/30/2023 5:15 AM EDT MAGNESIUM Timed 04/30/2023 5:15 AM EDT BASIC METABOLIC PANEL Timed 04/30/2023 5:15 AM EDT HEMOGRAM Routine 04/29/2023 11:15 PM EDT DIFFERENTIAL, AUTOMATED Routine 04/29/19 11:15 PM EDT CBC (WITH DIFF) Routine 04/29/2023 11:15 PM EDT PHOSPHORUS Timed 04/29/2023 11:15 PM EDT MAGNESIUM Timed 04/29/2023 11:15 PM EDT BASIC METABOLIC PANEL Timed 04/29/2023 11:15 PM EDT PHOSPHORUS Timed 04/29/2023 5:50 PM EDT MAGNESIUM Timed 04/29/2023 5:50 PM EDT BASIC METABOLIC PANEL Timed 04/29/2023 5:50 PM EDT BLOOD GAS ARTERIAL POC Routine 5:05 PM EDT XR ABDOMEN 1 VIEW Routine 04/29/2023 4:5 0 PM EDT PHOSPHORUS Timed 04/29/2023 11:53 AM EDT MAGNESIUM Timed 04/29/2023 11:53 AM EDT BASIC METABOLIC PANEL Timed 04/29/2023 11:53 AM EDT PHOSPHORUS Timed 04/29/2023 5:07 AM EDT MAGNESIUM Timed 04/29/2023 5:07 AM EDT BASIC METABOLIC PANEL Timed 04/29/2023 5:07 AM EDT HC URINALYSIS ROUTINE Routine 04/29/2023 4:00 AM EDT PROTEIN/CREATININE RATIO, URINE Routine 04/29/2023 4:00 AM EDT U ALBUMIN/CRE RATIO Routine 04/29/2023 4 :00 AM EDT PROTEIN ELECTROPHORESIS, URINE, RANDOM Routine 04/29/2023 4:00 AM EDT PTH Routine 04/29/2023 1:05 AM EDT HEMOGRAM Routine 04/29/2023 1:05 AM EDT DIFFERENTIAL, AUTOMATED Routine 04/29/19 1:05 AM EDT IRON AND TIBC Routine 04/29/2023 1:05 AM EDT VITAMIN D, 25-HYDROXY Routine 04/29/2023 1:05 AM EDT CBC (WITH DIFF) Routine 04/29/2023 1:05 AM EDT PHOSPHORUS Timed 04/29/2023 1:05 AM EDT MAGNESIUM Timed 04/29/2023 1:05 AM EDT FERRITIN Routine 04/29/2023 1:05 AM EDT BASIC METABOLIC PANEL Timed 04/29/2023 1:05 AM EDT IMMUNOGLOBULIN FREE LIGHT CHAINS, SERUM Routine 04/28/2023 6:11 PM EDT HEPATITIS C ANTIBODY Routine 04/28/2023 6:11 PM EDT HEPATITIS B CORE ANTIBODY, TOTAL Routine 04/28/2023 6:11 PM EDT HEPATITIS B SURFACE ANTIBODY Routine 04/28/2023 6:11 PM EDT HEPATITIS B SURFACE ANTIGEN Routine 04/28/2023 6:11 PM EDT HC SERUM PROT. ELECTROPHORESIS Routine 04/28/2023 6:11 PM EDT PHOSPHORUS Timed 04/28/2023 6:11 PM EDT MAGNESIUM Timed 04/28/2023 6:11 PM EDT LACTATE DEHYDROGENASE Routine 04/28/2023 6:11 PM EDT CK Routine 04/28/2023 6:11 PM EDT BASIC METABOLIC PANEL Timed 04/28/2023 6:11 PM EDT RENAL DUPLEX COMPLETE Routine 04/28/2023 2:24 PM EDT Dissection of aorta, unspecified portion of aorta PHOSPHORUS Timed 04/28/2023 11:42 AM EDT MAGNESIUM Timed 04/28/2023 11:42 AM EDT BASIC METABOLIC PANEL Timed 04/28/2023 11:42 AM EDT METABOLIC STUDY BY MILLER APPRENTICE Routine 9:42 AM EDT MAGNESIUM STAT 04/28/2023 5:12 AM EDT BASIC METABOLIC PANEL STAT 04/28/2023 5:12 AM EDT SCAN, PERIPHERAL BLOOD Routine 1:20 AM EDT HEMOGRAM Routine 04/28/2023 1:20 AM EDT DIFFERENTIAL, AUTOMATED Routine 04/28/19 1:20 AM EDT CBC (WITH DIFF) Routine 04/28/2023 1:20 AM EDT TRIGLYCERIDE Routine 04/28/2023 1:20 AM EDT PHOSPHORUS Routine 04/28/2023 1:20 AM EDT HEPATIC FUNCTION PANEL Routine 4 1:20 AM EDT BLOOD GAS ARTERIAL ([facility]) Timed 04/27/2023 11:36 PM EDT MAGNESIUM STAT 04/27/2023 11:00 PM EDT BASIC METABOLIC PANEL STAT 04/27/2023 11:00 PM EDT ENDOTRACHEAL TUBE POSITION CHANGE Routine 04/27/2023 4:50 PM EDT MAGNESIUM STAT 04/27/2023 4:21 PM EDT BASIC METABOLIC PANEL STAT 04/27/2023 4:21 PM EDT EKG 12-LEAD Routine 04/27/2023 4:00 PM EDT 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 CT HEAD WO CONTRAST (GENERIC) STAT 04/27/2023 3:41 PM EDT XR CHEST ONE VIEW Routine 04/27/2023 1:4 5 PM EDT INTUBATION Routine 04/27/2023 1:42 PM EDT BLOOD GAS ARTERIAL POC Routine 4 12:49 PM EDT BLOOD GAS ARTERIAL POC Routine 4 12:21 PM EDT MAGNESIUM Routine 04/27/2023 12:13 PM EDT ELECTROLYTES PANEL Routine 04/27/2023 12 :13 PM EDT MAGNESIUM Routine 04/27/2023 5:57 AM EDT ELECTROLYTES PANEL Routine 04/27/2023 5: 57 AM EDT MAGNESIUM Routine 04/27/2023 12:45 AM EDT ELECTROLYTES PANEL Routine 04/27/2023 12 :45 AM EDT MAGNESIUM Routine 04/26/2023 6:30 PM EDT ELECTROLYTES PANEL Routine 04/26/2023 6: 30 PM EDT MAGNESIUM Routine 04/26/2023 12:50 PM EDT ELECTROLYTES PANEL Routine 04/26/2023 12 :[address] HEAD WO CONTRAST (GENERIC) Routine 04/26/2023 10:25 AM EDT POCT GLUCOSE Routine 04/26/2023 7:55 AM EDT ELECTROLYTES PANEL Routine 04/26/2023 6: 26 AM EDT POCT GLUCOSE Routine 04/26/2023 4:35 AM EDT HEMOGRAM Routine 04/26/2023 12:20 AM EDT DIFFERENTIAL, AUTOMATED Routine 04/26/19 12:20 AM EDT CBC (WITH DIFF) Routine 04/26/2023 12:20 AM EDT PHOSPHORUS Routine 04/26/2023 12:20 AM EDT MAGNESIUM Routine 04/26/2023 12:20 AM EDT BASIC METABOLIC PANEL Routine 04/26/2023 12:20 AM EDT POCT GLUCOSE Routine 04/26/2023 12:16 AM EDT POCT GLUCOSE Routine 04/25/2023 7:55 PM EDT ELECTROLYTES PANEL Routine 04/25/2023 6: 39 PM EDT POCT GLUCOSE Routine 04/25/2023 3:13 PM EDT ELECTROLYTES PANEL Routine 04/25/2023 12 :21 PM EDT POCT GLUCOSE Routine 04/25/2023 11:36 AM EDT POCT GLUCOSE Routine 04/25/2023 7:53 AM EDT POCT GLUCOSE Routine 04/25/2023 4:46 AM EDT HEMOGRAM Routine 04/25/2023 1:10 AM EDT DIFFERENTIAL, AUTOMATED Routine 04/25/19 1:10 AM EDT CBC (WITH DIFF) Routine 04/25/2023 1:10 AM EDT PHOSPHORUS Routine 04/25/2023 1:10 AM EDT MAGNESIUM Routine 04/25/2023 1:10 AM EDT BASIC METABOLIC PANEL Routine 04/25/2023 1:10 AM EDT POCT GLUCOSE Routine 04/25/2023 12:50 AM EDT POCT GLUCOSE Routine 04/24/2023 8:10 PM EDT POCT GLUCOSE Routine 04/24/2023 3:30 PM EDT POCT GLUCOSE Routine 04/24/2023 11:17 AM EDT POCT GLUCOSE Routine 04/24/2023 7:32 AM EDT POCT GLUCOSE Routine 04/24/2023 4:05 AM EDT HEMOGRAM Routine 04/24/2023 12:20 AM EDT DIFFERENTIAL, AUTOMATED Routine 04/24/19 12:20 AM EDT CBC (WITH DIFF) Routine 04/24/2023 12:20 AM EDT PHOSPHORUS Routine 04/24/2023 12:20 AM EDT MAGNESIUM Routine 04/24/2023 12:20 AM EDT BASIC METABOLIC PANEL Routine 04/24/2023 12:20 AM EDT POCT GLUCOSE Routine 04/24/2023 12:14 AM EDT POCT GLUCOSE Routine 04/23/2023 8:03 PM EDT XR ABDOMEN 1 VIEW STAT 04/23/2023 5:1 5 PM EDT POCT GLUCOSE Routine 04/23/2023 3:46 PM EDT POCT GLUCOSE Routine 04/23/2023 11:34 AM EDT POCT GLUCOSE Routine 04/23/2023 8:00 AM EDT POCT GLUCOSE Routine 04/23/2023 4:00 AM EDT ABORH RECHECK STATUS Routine 04/23/2023 12:24 AM EDT ABORH TYPE MANUAL Routine 04/23/2023 12: 24 AM EDT HEMOGRAM Routine 04/23/2023 12:24 AM EDT DIFFERENTIAL, AUTOMATED Routine 04/23/19 12:24 AM EDT LACTATE, WHOLE BLOOD Routine 04/23/2023 12:24 AM EDT HC PARTIAL THROMBOPLASTIN TIME Routine 04/23/2023 12:24 AM EDT PROTHROMBIN TIME Routine 04/23/2023 12:2 4 AM EDT CBC (WITH DIFF) Routine 04/23/2023 12:24 AM EDT TYPE AND SCREEN ([facility]/CGP/ISMAEL) Routine 04/23/2023 12:24 AM EDT TRIGLYCERIDE Routine 04/23/2023 12:24 AM EDT PHOSPHORUS Routine 04/23/2023 12:24 AM EDT MAGNESIUM Routine 04/23/2023 12:24 AM EDT HEPATIC FUNCTION PANEL Routine 12:24 AM EDT BASIC METABOLIC PANEL Routine 04/23/2023 12:24 AM EDT POCT GLUCOSE Routine 04/22/2023 11:42 PM EDT POCT GLUCOSE Routine 04/22/2023 9:[address] ANGIOGRAM OF CHEST AND ABDOMEN W CONTRAST STAT 04/22/2023 6:40 PM EDT EKG 12-LEAD Routine 04/22/2023 5:42 PM EDT 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 POCT GLUCOSE Routine 04/22/2023 5:06 PM EDT POCT GLUCOSE Routine 04/22/2023 2:52 PM EDT EXTUBATE Routine 04/22/2023 12:03 PM EDT POCT GLUCOSE Routine 04/22/2023 8:59 AM EDT POCT GLUCOSE Routine 04/22/2023 3:53 AM EDT POTASSIUM Routine 04/22/2023 3:00 AM EDT HEMOGRAM Routine 04/22/2023 1:39 AM EDT DIFFERENTIAL, AUTOMATED Routine 04/22/19 1:39 AM EDT CBC (WITH DIFF) Routine 04/22/2023 1:39 AM EDT PHOSPHORUS Routine 04/22/2023 1:39 AM EDT MAGNESIUM Routine 04/22/2023 1:39 AM EDT BASIC METABOLIC PANEL Routine 04/22/2023 1:39 AM EDT POCT GLUCOSE Routine 04/22/2023 12:17 AM EDT POCT GLUCOSE Routine 04/21/2023 8:[address] CAROTIDS AND [facility] [employer] [place] W CONTRAST Routine 04/21/2023 5:49 PM EDT POTASSIUM Routine 04/21/2023 4:11 PM EDT POCT GLUCOSE Routine 04/21/2023 3:36 PM EDT POCT GLUCOSE Routine 04/21/2023 12:05 PM EDT BLOOD GAS VENOUS POC Routine 04/21/2023 10:42 AM EDT POTASSIUM Routine 04/21/2023 10:41 AM EDT POCT GLUCOSE Routine 04/21/2023 7:49 AM EDT XR CHEST ONE VIEW Routine 04/21/2023 7:0 8 AM EDT AIRWAY CLEARANCE PER RT PROTOCOL Routine 04/21/2023 5:23 AM EDT POTASSIUM Routine 04/21/2023 5:20 AM EDT BLOOD GAS VENOUS POC Routine 04/21/2023 5:15 AM EDT POCT GLUCOSE Routine 04/21/2023 4:13 AM EDT HEMOGRAM Routine 04/21/2023 12:36 AM EDT DIFFERENTIAL, AUTOMATED Routine 04/21/19 12:36 AM EDT CBC (WITH DIFF) Routine 04/21/2023 12:36 AM EDT PHOSPHORUS Routine 04/21/2023 12:36 AM EDT MAGNESIUM Routine 04/21/2023 12:36 AM EDT BASIC METABOLIC PANEL Routine 04/21/2023 12:36 AM EDT POCT GLUCOSE Routine 04/21/2023 12:35 AM EDT MRI BRAIN WWO CONTRAST (GENERIC) Routine 04/20/2023 9:39 PM EDT POCT GLUCOSE Routine 04/20/2023 8:05 PM EDT POCT GLUCOSE Routine 04/20/2023 3:51 PM EDT LOWER RESPIRATORY CULTURE Routine 04/20/2023 3:50 PM EDT XR CHEST FOR VERIFYING VASCULAR ACCESS PICC PLACEMENT AT BEDSIDE Routine 04/20/2023 2:[address] BEDSIDE PICC LINE Routine 04/20/19 2:00 PM EDT POCT GLUCOSE Routine 04/20/2023 12:04 PM EDT POCT GLUCOSE Routine 04/20/2023 7:59 AM EDT BLOOD GAS ARTERIAL POC Routine 5:40 AM EDT POCT GLUCOSE Routine 04/20/2023 4:42 AM EDT XR CHEST ONE VIEW STAT 04/20/2023 4:[address] HEAD WO CONTRAST (GENERIC) STAT 04/20/2023 4:18 AM EDT BLOOD GAS VENOUS POC Routine 04/20/2023 3:20 AM EDT HEMOGRAM Routine 04/20/2023 1:10 AM EDT DIFFERENTIAL, AUTOMATED Routine 04/20/19 1:10 AM EDT CBC (WITH DIFF) Routine 04/20/2023 1:10 AM EDT TRIGLYCERIDE Routine 04/20/2023 1:10 AM EDT PHOSPHORUS Routine 04/20/2023 1:10 AM EDT MAGNESIUM Routine 04/20/2023 1:10 AM EDT BASIC METABOLIC PANEL Routine 04/20/2023 1:10 AM EDT POCT GLUCOSE Routine 04/20/2023 12:08 AM EDT POCT GLUCOSE Routine 04/19/2023 8:[address] HEAD WO CONTRAST (GENERIC) STAT 04/19/2023 4:26 PM EDT POCT GLUCOSE Routine 04/19/2023 3:15 PM EDT ECHO COMPLETE W CONTRAST Routine 04/19/2023 12:38 PM EDT Nontraumatic intracerebral hemorrhage of cerebellum, unspecified laterality POTASSIUM Routine 04/19/2023 12:00 PM EDT POCT GLUCOSE Routine 04/19/2023 11:07 AM EDT POCT GLUCOSE Routine 04/19/2023 7:45 AM EDT POCT GLUCOSE Routine 04/19/2023 4:13 AM EDT LACTATE, WHOLE BLOOD Routine 04/19/2023 2:[address] HEAD WO CONTRAST (GENERIC) STAT 04/19/2023 1:05 AM EDT BMP W/FASTING GLUCOSE Routine 04/19/2023 12:35 AM EDT SCAN, PERIPHERAL BLOOD Routine 12:35 AM EDT HEMOGRAM Routine 04/19/2023 12:35 AM EDT DIFFERENTIAL, AUTOMATED Routine 04/19/19 12:35 AM EDT BETA HYDROXYBUTYRATE Routine 04/19/2023 12:35 AM EDT PROTHROMBIN TIME Routine 04/19/2023 12:3 5 AM EDT CBC (WITH DIFF) Routine 04/19/2023 12:35 AM EDT TRIGLYCERIDE Routine 04/19/2023 12:35 AM EDT TSH Routine 04/19/2023 12:35 AM EDT PHOSPHORUS Routine 04/19/2023 12:35 AM EDT MAGNESIUM Routine 04/19/2023 12:35 AM EDT LDL CHOLESTEROL, DIRECT Routine 04/19/19 24 12:35 AM EDT HDL/CHOL PROFILE Routine 04/19/2023 12:3 5 AM EDT HEMOGLOBIN A1C Routine 04/19/2023 12:35 AM EDT HEPATIC FUNCTION PANEL Routine 12:35 AM EDT POCT GLUCOSE Routine 04/19/2023 12:21 AM EDT POCT GLUCOSE Routine 04/18/2023 7:54 PM EDT POCT GLUCOSE Routine 04/18/2023 3:46 PM EDT XR CHEST ONE VIEW Routine 04/18/2023 12: 17 PM EDT XR ABDOMEN 1 VIEW Routine 04/18/2023 12: 17 PM EDT POCT GLUCOSE Routine 04/18/2023 11:56 AM EDT POCT GLUCOSE Routine 04/18/2023 11:04 AM EDT HC TROPONIN T STAT 04/18/2023 10:[address] [facility] [employer] [place] W CONTRAST STAT 04/18/2023 9:[address] HEAD WO CONTRAST (GENERIC) STAT 04/18/2023 9:45 AM EDT POCT GLUCOSE Routine 04/18/2023 8:05 AM EDT HC TROPONIN T STAT 04/18/2023 6:55 AM EDT ABORH RECHECK STATUS STAT 04/18/2023 6:55 AM EDT TYPE AND SCREEN ([facility]) STAT 04/18/2023 6:55 AM EDT HEMOGRAM STAT 04/18/2023 6:50 AM EDT DIFFERENTIAL, AUTOMATED STAT 04/18/19 6:50 AM EDT HC PARTIAL THROMBOPLASTIN TIME STAT 04/18/2023 6:50 AM EDT PROTHROMBIN TIME STAT 04/18/2023 6:50 AM EDT CBC (WITH DIFF) STAT 04/18/2023 6:50 AM EDT COMPREHENSIVE METABOLIC PANEL STAT 04/18/2023 6:50 AM EDT documented in this encounter Results * CT Angiogram Chest Abdomen Pelvis w Contrast (07/31/2023 3:45 PM EDT) [employer] WORKSTATION ID [id number] RAD Anatomical Region Laterality Modality Abdomen, Chest Computed Tomogra phy Impressions 08/01/2023 9:39 AM EDT 1. 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 ? Electronically signed by: Nicolette Cuevas MD, [facility] ??([phone]), at 08/01/2023 9:39 AM Narrative 08/01/2023 9:39 [...] thoracic aorta. 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 Administered 97.0 ml of [id number] mg/ml. Maximum intensity projection (MIP) were reformatted. [...] Unchanged appearance and extent of the known Camanche B dissectionextending from the origin of the [...] patients who have questions please contactthe health manager managed care that requested your imaging first. Electronically signed by: Nicolette Cuevas MD, [facility]([phone]), at 08/01/2023 9:39 AM Georges Jacob MD IMG CT ORDERABLES * Differential, Automated (06/02/2023 1:00 AM EDT) Neutrophil % 56.6 % [facility] Neutrophil Absolute 3.33 1.70 - 6.10 x10(3)/[facility] Lymph % 25.0 % [facility] Lymphocytes Abs 1.5 0.9 - 3.2 x10(3)/[facility] Monocyte % 11.5 % [facility] Monocyte Abs 0.7 0.3 - 0.9 x10(3)/[facility] Eos % 6.1 % [facility] Eosinophils Abs 0.4 0.0 - 0.4 x10(3)/[facility] Basophil % 0.5 % [facility] Baso Absolute 0.0 0.0 - 0.1 x10(3)/[facility] Immature Gran % 0.30 % [facility] Comment: Immature granulocytes(IG's)percentage and absolute count will include metamyelocytes, myelocytes, and promyelocytes. Blood smears from CBCs yielding IG's will be scanned manually for concordance. If this scan disagrees with the automated IG or if promyelocytes are noted, a manual differential will be performed. Immature Gran Absolute 0.02 0.00 - 0.04 x10(3)/[facility] Blood 06/02/2023 1:00 AM EDT 06/02/2023 1:07 AM EDT Narrative Resulting Agency Comment Spec In Lab Edna Ira Rochelle NIXN HEMATOLOGY ORDERABL ES Performing Organization Address City/[facility]/ZIP Co de Phone Number [facility] [place] [place] [address] * (ABNORMAL) Hemogram (06/02/2023 1:00 AM EDT) White Blood Cell 5.9 4.0 - 9.5 x10(3)/mc L [facility] Red Blood Cell 3.27(L) 4.58 - 5.54 x10(6)/mc L [facility] Hemoglobin 10.2(L) 13.7 - 16.5 g/dL [facility] Hematocrit 30.7(L) 40.5 - 48.5 % [facility] Mean Cell Volume 93.9(H) 82.9 - 93.1 [facility] Mean Cell Hemoglobin 31.2 27.5 - 32.1 [facility] Mean Cell Hemoglobin Concentration 33.2 32.0 - 35.7 g/dL [facility] Platelet 227 145 - 357 x10(3)/mc L [facility] RDW Standard Deviation 49.3(H) 36.0 - 45.0 [facility] RDW coefficient of variation 14.2(H) 11.4 - 13.8 % [facility] Mean Platelet Volume 10.7 7.6 - 12.9 [facility] NRBC% auto 0.0 % [facility] NRBC Absolute 0.000 0.000 - 0.000 x10(3)/ L [facility] Blood 06/02/2023 1:00 AM EDT 06/02/2023 1:07 AM EDT Narrative Resulting Agency Comment Spec In Lab Edna Byrd APRN HEMATOLOGY ORDERABL ES [facility] [place] [place] [address] * (ABNORMAL) Basic Metabolic Panel (non-fasting) (06/02/2023 12:59 AM EDT) Glucose 112 65 - 199 mg/dL [facility] Comment:Diabetes: >=200 mg/d L plus symptoms Blood Urea Nitrogen 36(H) 10 - 20 mg/dL [facility] Creatinine 1.94(H) 0.80 - 1.50 mg/dL [facility] Sodium 139 135 - 145 mmol/L [facility] Potassium 4.0 3.5 - 5.0 mmol/L [facility] Comment: Please note: ??Patients with WBC >100,000 may have falsely elevated Potassium levels. ??For accurate Potassium quantification in these patients send serum separator tube (gold top) for subsequent determinations. ??Contact the Clinical Chemistry Laboratory if there are any questions. Chloride 105 98 - 107 mmol/L [facility] Carbon Dioxide 21(L) 22 - 31 mmol/L [facility] Anion Gap 13 5 - 15 mmol/L [facility] Calcium 9.8 8.5 - 10.5 mg/dL [facility] Est Glomerular Filtration Rate 38(L) >=60 mL/min/1. 73 m?? [facility] Comment: This patient's estimated [...] Agency Comment Spec In Lab Edna Byrd OPERATIONS INTERN CHEMISTRY ORDERABLE S [facility] [place] [place] [address] * Phosphorus (06/02/2023 12:59 AM EDT) [facility] Phosphorus 3.5 2.5 - 4.5 mg/dL [facility] Blood 06/02/2023 12:5 9 AM EDT 06/02/2023 1:07 AM EDT Narrative Resulting Agency Comment Spec In Lab Edna Byrd OPERATIONS INTERN CHEMISTRY ORDERABLE S Performing Organization Address City/[facility]/ZIP Co de Phone Number [facility] [place] [place] [address] * Magnesium (06/02/2023 12:59 AM EDT) [facility] Magnesium 0.79 0.69 - 1.07 mmol/L [facility] Blood 06/02/2023 12:5 9 AM EDT 06/02/2023 1:07 AM EDT Narrative Resulting Agency Comment Spec In Lab Edna Byrd OPERATIONS INTERN CHEMISTRY ORDERABLE S [facility] [place] [place] [address] * Differential, Automated (06/01/2023 1:07 AM EDT) [facility] Neutrophil % 51.6 % [facility] Neutrophil Absolute 3.03 1.70 - 6.10 x10(3)/[facility] Lymph % 29.1 % [facility] Lymphocytes Abs 1.7 0.9 - 3.2 x10(3)/[facility] Monocyte % 12.8 % [facility] Monocyte Abs 0.8 0.3 - 0.9 x10(3)/[facility] Eos % 5.3 % [facility] Eosinophils Abs 0.3 0.0 - 0.4 x10(3)/[facility] Basophil % 0.7 % [facility] Baso Absolute 0.0 0.0 - 0.1 x10(3)/[facility] Immature Gran % 0.50 % [facility] Comment: Immature granulocytes(IG's)percentage and absolute count will include metamyelocytes, myelocytes, and promyelocytes. Blood smears from CBCs yielding IG's will be scanned manually for concordance. If this scan disagrees with the automated IG or if promyelocytes are noted, a manual differential will be performed. Immature Gran Absolute 0.03 0.00 - 0.04 x10(3)/[facility] Blood 06/01/2023 1:07 AM EDT 06/01/2023 1:23 AM EDT Narrative Resulting Agency Comment Spec In Lab Edna Byrd APRN HEMATOLOGY ORDERABL ES [facility] [place] [place] [address] * (ABNORMAL) Hemogram (06/01/2023 1:07 AM EDT) White Blood Cell 5.9 4.0 - 9.5 x10(3)/mc L [facility] Red Blood Cell 3.26(L) 4.58 - 5.54 x10(6)/mc L [facility] Hemoglobin 10.2(L) 13.7 - 16.5 g/dL [facility] Hematocrit 31.2(L) 40.5 - 48.5 % [facility] Mean Cell Volume 95.7(H) 82.9 - 93.1 fL [facility] Mean Cell Hemoglobin 31.3 27.5 - 32.1 pg [facility] Mean Cell Hemoglobin Concentration 32.7 32.0 - 35.7 g/dL [facility] Platelet 221 145 - 357 x10(3)/mc L [facility] RDW Standard Deviation 50.2(H) 36.0 - 45.0 fL [facility] RDW coefficient of variation 14.2(H) 11.4 - 13.8 % [facility] Mean Platelet Volume 11.2 7.6 - 12.9 fL [facility] NRBC% auto 0.0 % [facility] NRBC Absolute 0.000 0.000 - 0.000 x10(3)/mc L [facility] Blood 06/01/2023 1:07 AM EDT 06/01/2023 1:23 AM EDT Narrative Resulting Agency Comment Spec In Lab Edna Byrd OPERATIONS INTERN HEMATOLOGY ORDERABL ES [facility] [place] [place] [address] * (ABNORMAL) Basic Metabolic Panel (non-fasting) (06/01/2023 1:06 AM EDT) Glucose 99 65 - 199 mg/dL [facility] Comment:Diabetes: >=200 mg/d L plus symptoms Blood Urea Nitrogen 36(H) 10 - 20 mg/dL [facility] Creatinine 2.02(H) 0.80 - 1.50 mg/dL [facility] Sodium 134(L) 135 - 145 mmol/L [facility] Potassium 4.0 3.5 - 5.0 mmol/L [facility] Comment: Please note: ??Patients with WBC >100,000 may have falsely elevated Potassium levels. ??For accurate Potassium quantification in these patients send serum separator tube (gold top) for subsequent determinations. ??Contact the Clinical Chemistry Laboratory if there are any questions. Chloride 102 98 - 107 mmol/L [facility] Carbon Dioxide 20(L) 22 - 31 mmol/L [facility] Anion Gap 12 5 - 15 mmol/L [facility] Calcium 9.5 8.5 - 10.5 mg/dL [facility] Est Glomerular Filtration Rate 36(L) >=60 mL/min/1. 73 m?? [facility] Comment: This patient's estimated [...] and symptoms in addition to eGFR. Blood 06/01/2023 1:06 AM EDT 06/01/2023 1:23 AM EDT Narrative Resulting Agency Comment Spec In Lab Edna Byrd OPERATIONS INTERN CHEMISTRY ORDERABLE S Performing Organization Address [facility]/ZIP Co de Phone Number [facility] [place] [place] [address] * Phosphorus (06/01/2023 1:06 AM EDT) Phosphorus 3.8 2.5 - 4.5 mg/dL [facility] Blood 06/01/2023 1:06 AM EDT 06/01/2023 1:23 AM EDT Narrative Resulting Agency Comment Spec In Lab Edna Byrd OPERATIONS INTERN CHEMISTRY ORDERABLE S [facility] [place] [place] [address] * Magnesium (06/01/2023 1:06 AM EDT) Magnesium 0.78 0.69 - 1.07 mmol/L [facility] Blood 06/01/2023 1:06 AM EDT 06/01/2023 1:23 AM EDT Narrative Resulting Agency Comment Spec In Lab Edna Byrd APRN CHEMISTRY ORDERABLE S Performing Organization Address City/[facility]/ZIP Co de Phone Number [facility] [place] [place] [address] * Differential, Automated (05/31/2023 1:33 AM EDT) Neutrophil % 56.0 % [facility] Neutrophil Absolute 2.97 1.70 - 6.10 x10(3)/[facility] Lymph % 23.8 % [facility] Lymphocytes Abs 1.3 0.9 - 3.2 x10(3)/[facility] Monocyte % 12.8 % [facility] Monocyte Abs 0.7 0.3 - 0.9 x10(3)/[facility] Eos % 6.2 % [facility] Eosinophils Abs 0.3 0.0 - 0.4 x10(3)/[facility] Basophil % 0.8 % [facility] Baso Absolute 0.0 0.0 - 0.1 x10(3)/[facility] Immature Gran % 0.40 % [facility] Comment: Immature granulocytes(IG's)percentage and absolute count will include metamyelocytes, myelocytes, and promyelocytes. Blood smears from CBCs yielding IG's will be scanned manually for concordance. If this scan disagrees with the automated IG or if promyelocytes are noted, a manual differential will be performed. Immature Gran Absolute 0.02 0.00 - 0.04 x10(3)/[facility] Blood 05/31/2023 1:33 AM EDT 05/31/2023 1:45 AM EDT Narrative Resulting Agency Comment Spec In Lab Edna Byrd APRN HEMATOLOGY ORDERABL ES Performing Organization Address City/[facility]/ZIP Co de Phone Number [facility] [place] [place] [address] * (ABNORMAL) Hemogram (05/31/2023 1:33 AM EDT) White Blood Cell 5.3 4.0 - 9.5 x10(3)/[facility] Red Blood Cell 3.05(L) 4.58 - 5.54 x10(6)/mc L [facility] Hemoglobin 9.5(L) 13.7 - 16.5 g/dL [facility] Hematocrit 29.0(L) 40.5 - 48.5 % [facility] Mean Cell Volume 95.1(H) 82.9 - 93.1 [facility] Mean Cell Hemoglobin 31.1 27.5 - 32.1 pg [facility] Mean Cell Hemoglobin Concentration 32.8 32.0 - 35.7 g/dL [facility] Platelet 222 145 - 357 x10(3)/[facility] RDW Standard Deviation 49.0(H) 36.0 - 45.0 [facility] RDW coefficient of variation 14.0(H) 11.4 - 13.8 % [facility] Mean Platelet Volume 10.5 7.6 - 12.9 [facility] NRBC% auto 0.0 % [facility] NRBC Absolute 0.000 0.000 - 0.000 x10(3)/[facility] Blood 05/31/2023 1:33 AM EDT 05/31/2023 1:45 AM EDT Narrative Resulting Agency Comment Spec In Lab Edna Byrd APRN HEMATOLOGY ORDERABL ES [facility] [place] [place] [address] * (ABNORMAL) Basic Metabolic Panel (non-fasting) (05/31/2023 1:33 AM EDT) Pathologist [facility] Glucose 95 65 - 199 mg/dL [facility] Comment:Diabetes: >=200 mg/d L plus symptoms Blood Urea Nitrogen 34(H) 10 - 20 mg/dL [facility] Creatinine 1.79(H) 0.80 - 1.50 mg/dL [facility] Sodium 137 135 - 145 mmol/L [facility] Potassium 3.7 3.5 - 5.0 mmol/L [facility] Comment: Please note: ??Patients with WBC >100,000 may have falsely elevated Potassium levels. ??For accurate Potassium quantification in these patients send serum separator tube (gold top) for subsequent determinations. ??Contact the Clinical Chemistry Laboratory if there are any questions. Chloride 104 98 - 107 mmol/L [facility] Carbon Dioxide 21(L) 22 - 31 mmol/L [facility] Anion Gap 12 5 - 15 mmol/L [facility] Calcium 9.5 8.5 - 10.5 mg/dL [facility] Est Glomerular Filtration Rate 42(L) >=60 mL/min/1. 73 m?? [facility] Comment: This patient's estimated [...] and symptoms in addition to eGFR. Blood 05/31/2023 1:33 AM EDT 05/31/2023 1:45 AM EDT Narrative Resulting Agency Comment Spec In Lab Edna Byrd OPERATIONS INTERN CHEMISTRY ORDERABLE S [facility] [place] [place] [address] * Phosphorus (05/31/2023 1:33 AM EDT) Phosphorus 3.4 2.5 - 4.5 mg/dL [facility] Blood 05/31/2023 1:33 AM EDT 05/31/2023 1:45 AM EDT Narrative Resulting Agency Comment Spec In Lab Edna Byrd OPERATIONS INTERN CHEMISTRY ORDERABLE S Performing Organization Address [facility] Co de Phone Number [facility] [place] [place] [address] * Magnesium (05/31/2023 1:33 AM EDT) [facility] Magnesium 0.79 0.69 - 1.07 mmol/L [facility] Blood 05/31/2023 1:33 AM EDT 05/31/2023 1:45 AM EDT Narrative Resulting Agency Comment Spec In Lab Edna Byrd OPERATIONS INTERN CHEMISTRY ORDERABLE S Performing Organization Address [facility] de Phone Number [facility] [place] [place] [address] * XR Abdomen Flat & Upright (05/30/2023 10:00 PM EDT) [facility] Signature WORKSTATION ID [id number] RAD Anatomical Region Laterality Modality Abdomen N/A Digital Radiogra phy Impressions 05/31/2023 10:09 AM EDT 1. ??Improving bowel gas pattern, no evidence of obstruction. Air is visible distally at the rectum. I have personally reviewed the image(s) and the resident's interpretation and agree with the findings, Robert Beck MD at 05/31/2023 10:09 AM Thank you for letting us participate in the care of this patient. ??If you are a health care provider and have any questions regarding this report, please contact the number below. ??For patients who have questions please contact the health manager managed care that requested your imaging first. ? Electronically signed by: Robert Beck MD, [facility] ([phone]), at 05/31/2023 10:09 AM Narrative 05/31/2023 10:09 AM EDT EXAMINATION: XR ABDOMEN FLAT AND UPRIGHT CLINICAL HISTORY: concern for obstruction TECHNIQUE: AP supine and PA and left lateral decubitus abdominal radiographs COMPARISON: Abdominal radiographs 05/28/2023, 05/17/2023 FINDINGS: A loop of bowel in the right upper quadrant remains dilated to approximately 10.4 cm. Otherwise, the abdomen is filled with nondilated loops of bowel. No differential air-fluid levels. There is no upstream dilation of small bowel. There is no significant appreciable stool burden. There is air in the rectum. No pneumatosis or intra-abdominal free air is appreciated. The visualized lung bases are clear. Procedure Note Robert Beck MD - 05/31/2023 EXAMINATION: XR ABDOMEN FLAT AND UPRIGHT CLINICAL HISTORY: concern for obstruction TECHNIQUE: AP supine and PA and left lateral decubitus abdominal radiographs COMPARISON: Abdominal radiographs 05/28/2023, 05/17/2023 FINDINGS: A loop of bowel in the right upper quadrant remains dilated toapproximately 10.4 cm. Otherwise, the abdomen is filled with nondilated loops of bowel.No differential air-fluid levels. There is no upstream dilation of smallbowel. There is no significant appreciable stool burden. There is air in therectum. No pneumatosis or intra-abdominal free air is appreciated. The visualized lung bases are clear. IMPRESSION 1. Improving bowel gas pattern, no evidence of obstruction. Air isvisible distally at the rectum. I have personally reviewed the image(s) and the resident's interpretationand agree with the findings, Robert Beck MD at 05/31/2023 10:09 AM Thank you for letting us participate in the care of this patient. If youare a health care provider and have any questions regarding this report,please contact the number below. For patients who have questions please contactthe health manager managed care that requested your imaging first. Andi Abbott MD IMG DX ORDERABLES * (ABNORMAL) Basic Metabolic Panel (non-fasting) (05/30/2023 5:01 AM EDT) Glucose 93 65 - 199 mg/dL [facility] Comment:Diabetes: >=200 mg/d L plus symptoms Blood Urea Nitrogen 34(H) 10 - 20 mg/dL [facility] Creatinine 1.89(H) 0.80 - 1.50 mg/dL [facility] Sodium 135 135 - 145 mmol/L [facility] Potassium 3.7 3.5 - 5.0 mmol/L [facility] Comment: Please note: ??Patients with WBC >100,000 may have falsely elevated Potassium levels. ??For accurate Potassium quantification in these patients send serum separator tube (gold top) for subsequent determinations. ??Contact the Clinical Chemistry Laboratory if there are any questions. Chloride 102 98 - 107 mmol/L [facility] Carbon Dioxide 21(L) 22 - 31 mmol/L [facility] Anion Gap 12 5 - 15 mmol/L [facility] Calcium 9.7 8.5 - 10.5 mg/dL [facility] Est Glomerular Filtration Rate 39(L) >=60 mL/min/1. 73 m?? [facility] Comment: This patient's estimated [...] and symptoms in addition to eGFR. Blood 05/30/2023 5:01 AM EDT 05/30/2023 5:17 AM EDT Narrative Resulting Agency Comment Spec In Lab Edna Byrd OPERATIONS INTERN CHEMISTRY ORDERABLE S Performing Organization Address City/[facility]/ZIP Co de Phone Number [facility] [place] [place] [address] * Phosphorus (05/30/2023 5:01 AM EDT) Phosphorus 4.1 2.5 - 4.5 mg/dL [facility] Blood 05/30/2023 5:01 AM EDT 05/30/2023 5:17 AM EDT Narrative Resulting Agency Comment Spec In Lab Edna Byrd OPERATIONS INTERN CHEMISTRY ORDERABLE S Performing Organization Address [facility]/ZIP Co de Phone Number [facility] [place] [place] [address] * Magnesium (05/30/2023 5:01 AM EDT) Magnesium 0.84 0.69 - 1.07 mmol/L [facility] Blood 05/30/2023 5:01 AM EDT 05/30/2023 5:17 AM EDT Narrative Resulting Agency Comment Spec In Lab Edna Byrd OPERATIONS INTERN CHEMISTRY ORDERABLE S Performing Organization Address City/[facility]/ZIP Co de Phone Number [facility] [place] [place] [address] * Differential, Automated (05/30/2023 5:00 AM EDT) Neutrophil % 56.9 % [facility] Neutrophil Absolute 3.45 1.70 - 6.10 x10(3)/[facility] LAB[facility] Lymph % 22.3 % [facility] Lymphocytes Abs 1.4 0.9 - 3.2 x10(3)/[facility] Monocyte % 13.6 % [facility] Monocyte Abs 0.8 0.3 - 0.9 x10(3)/[facility] Eos % 6.0 % [facility] Eosinophils Abs 0.4 0.0 - 0.4 x10(3)/[facility] Basophil % 0.7 % [facility] Baso Absolute 0.0 0.0 - 0.1 x10(3)/[facility] Immature Gran % 0.50 % [facility] Comment: Immature granulocytes(IG's)percentage and absolute count will include metamyelocytes, myelocytes, and promyelocytes. Blood smears from CBCs yielding IG's will be scanned manually for concordance. If this scan disagrees with the automated IG or if promyelocytes are noted, a manual differential will be performed. Immature Gran Absolute 0.03 0.00 - 0.04 x10(3)/[facility] Blood 05/30/2023 5:00 AM EDT 05/30/2023 5:17 AM EDT Narrative Resulting Agency Comment Spec In Lab Nayana Mcginnis APRN HEMATOLOGY ORDERAB LES [facility] [place] [address] * (ABNORMAL) Hemogram (05/30/2023 5:00 AM EDT) White Blood Cell 6.0 4.0 - 9.5 x10(3)/ L [facility] Red Blood Cell 3.09(L) 4.58 - 5.54 x10(6)/[facility] LAB[facility] Hemoglobin 9.7(L) 13.7 - 16.5 g/dL [facility] Hematocrit 29.9(L) 40.5 - 48.5 % [facility] Mean Cell Volume 96.8(H) 82.9 - 93.1 fL [facility] Mean Cell Hemoglobin 31.4 27.5 - 32.1 pg [facility] Mean Cell Hemoglobin Concentration 32.4 32.0 - 35.7 g/dL [facility] Platelet 204 145 - 357 x10(3)/mc L [facility] RDW Standard Deviation 50.1(H) 36.0 - 45.0 fL [facility] RDW coefficient of variation 14.2(H) 11.4 - 13.8 % [facility] Mean Platelet Volume 11.3 7.6 - 12.9 fL [facility] NRBC% auto 0.0 % [facility] NRBC Absolute 0.000 0.000 - 0.000 x10(3)/mc L [facility] Blood 05/30/2023 5:00 AM EDT 05/30/2023 5:17 AM EDT Narrative Resulting Agency Comment Spec In Lab Nayana Mcginnis APRN HEMATOLOGY ORDERAB LES [facility] [place] [place] [address] * Creatinine, urine, random (05/29/2023 2:55 PM EDT) Creatinine, Urine 170 mg/dL [facility] [facility] Urine Urine / Unknown 05/29/2023 2 :55 PM EDT 05/29/2023 4:14 PM EDT Narrative Resulting Agency Comment Spec In Lab Costa Tariq MD URINE ORDERABLES [facility] [place] [place] [address] * Urea nitrogen, urine, random (05/29/2023 2:55 PM EDT) Urea Nitrogen, Urine 531 mg/dL [facility] Urine 05/29/2023 2:55 PM EDT 05/29/2023 4:07 PM EDT Narrative Resulting Agency Comment Spec In Lab Andi Abbott MD URINE ORDERABLES Performing Organization Address [facility] Co de Phone Number [facility] [place] [place] [address] * Sodium, urine, random (05/29/2023 2:55 PM EDT) Sodium, Urine 64 mmol/L [facility] Urine 05/29/2023 2:55 PM EDT 05/29/2023 4:07 PM EDT Narrative Resulting Agency Comment Spec In Lab Andi Abbott MD URINE ORDERABLES Performing Organization Address [facility] de Phone Number [facility] [place] [address] * Sodium (05/29/2023 2:55 PM EDT) Sodium 136 135 - 145 mmol/L [facility] Blood 05/29/2023 2:55 PM EDT 05/29/2023 4:06 PM EDT Narrative Resulting Agency Comment Spec In Lab Andi Abbott MD CHEMISTRY ORDERABL ES Performing Organization Address [facility] de Phone Number [facility] [place] [place] [address] * (ABNORMAL) Basic Metabolic Panel (non-fasting) (05/29/2023 4:11 AM EDT) Glucose 101 65 - 199 mg/dL [facility] Comment:Diabetes: >=200 mg/d L plus symptoms Blood Urea Nitrogen 34(H) 10 - 20 mg/dL [facility] Creatinine 2.06(H) 0.80 - 1.50 mg/dL [facility] Sodium 138 135 - 145 mmol/L [facility] Potassium 3.9 3.5 - 5.0 mmol/L [facility] Comment: Please note: ??Patients with WBC >100,000 may have falsely elevated Potassium levels. ??For accurate Potassium quantification in these patients send serum separator tube (gold top) for subsequent determinations. ??Contact the Clinical Chemistry Laboratory if there are any questions. Chloride 103 98 - 107 mmol/L [facility] Carbon Dioxide 22 22 - 31 mmol/L [facility] Anion Gap 13 5 - 15 mmol/L [facility] Calcium 9.9 8.5 - 10.5 mg/dL [facility] Est Glomerular Filtration Rate 35(L) >=60 mL/min/1. 73 m?? [facility] Comment: This patient's estimated [...] and symptoms in addition to eGFR. Blood 05/29/2023 4:11 AM EDT 05/29/2023 4:23 AM EDT Narrative Resulting Agency Comment Spec In Lab Edna Byrd APRN CHEMISTRY ORDERABLE S [facility] [place] [place] [address] * (ABNORMAL) Phosphorus (05/29/2023 4:11 AM EDT) Phosphorus 4.8(H) 2.5 - 4.5 mg/dL [facility] Blood 05/29/2023 4:11 AM EDT 05/29/2023 4:23 AM EDT Narrative Resulting Agency Comment Spec In Lab Edna Byrd APRN CHEMISTRY ORDERABLE S [facility] [place] [place] [address] * Magnesium (05/29/2023 4:11 AM EDT) Magnesium 0.86 0.69 - 1.07 mmol/L [facility] Blood 05/29/2023 4:11 AM EDT 05/29/2023 4:23 AM EDT Narrative Resulting Agency Comment Spec In Lab Ednaterra Byrd OPERATIONS INTERN CHEMISTRY ORDERABLE S [facility] [place] [place] [address] * Differential, Automated (05/29/2023 4:10 AM EDT) Pathologist [facility] Neutrophil % 56.8 % [facility] Neutrophil Absolute 3.27 1.70 - 6.10 x10(3)/[facility] LABORATORY Lymph % 20.7 % [facility] Lymphocytes Abs 1.2 0.9 - 3.2 x10(3)/[facility] LABORATORY Monocyte % 14.9 % [facility] Monocyte Abs 0.9 0.3 - 0.9 x10(3)/[facility] LABORATORY Eos % 6.4 % [facility] Eosinophils Abs 0.4 0.0 - 0.4 x10(3)/[facility] LABORATORY Basophil % 0.5 % [facility] Baso Absolute 0.0 0.0 - 0.1 x10(3)/[facility] LABORATORY Immature Gran % 0.70 % [facility] Comment: Immature granulocytes(IG's)percentage and absolute count will include metamyelocytes, myelocytes, and promyelocytes. Blood smears from CBCs yielding IG's will be scanned manually for concordance. If this scan disagrees with the automated IG or if promyelocytes are noted, a manual differential will be performed. Immature Gran Absolute 0.04 0.00 - 0.04 x10(3)/[facility] LABORATORY Blood 05/29/2023 4:10 AM EDT 05/29/2023 4:23 AM EDT Narrative Resulting Agency Comment Spec In Lab Nayana Mcginnis APRN HEMATOLOGY ORDERAB LES [facility] [place] [place] [address] * (ABNORMAL) Hemogram (05/29/2023 4:10 AM EDT) White Blood Cell 5.8 4.0 - 9.5 x10(3)/[facility] LABORATORY Red Blood Cell 3.11(L) 4.58 - 5.54 x10(6)/[facility] LAB[facility]ORY Hemoglobin 9.8(L) 13.7 - 16.5 g/dL [facility] Hematocrit 30.2(L) 40.5 - 48.5 % [facility] Mean Cell Volume 97.1(H) 82.9 - 93.1 [facility] LAB[facility]ATORY Mean Cell Hemoglobin 31.5 27.5 - 32.1 pg [facility] Mean Cell Hemoglobin Concentration 32.5 32.0 - 35.7 g/dL [facility] Platelet 233 145 - 357 x10(3)/[facility] LABORATORY RDW Standard Deviation 51.3(H) 36.0 - 45.0 [facility] LAB[facility] RDW coefficient of variation 14.5(H) 11.4 - 13.8 % [facility] Mean Platelet Volume 10.8 7.6 - 12.9 [facility] LAB[facility]ORY NRBC% auto 0.0 % [facility] NRBC Absolute 0.000 0.000 - 0.000 x10(3)/[facility] LAB[facility] Blood 05/29/2023 4:10 AM EDT 05/29/2023 4:23 AM EDT Narrative Resulting Agency Comment Spec In Lab Nayana Mcginnis OPERATIONS INTERN HEMATOLOGY ORDERAB LES [facility] [place] [address] * XR Abdomen Flat & Upright (05/28/2023 4:03 PM EDT) WORKSTATION ID [id number] RAD Anatomical Region Laterality Modality Abdomen N/A Digital Radiogra phy Impressions 05/28/2023 6:10 PM EDT Cannot distinguish ileus from early small bowel obstruction. No perforation. Thank you for letting us participate in the care of this patient. ??If you are a health care provider and have any questions regarding this report, please contact the number below. ??For patients who have questions please contact the health manager managed care that requested your imaging first. ? Narrative 05/28/2023 6:10 PM EDT EXAMINATION: XR ABDOMEN FLAT AND UPRIGHT CLINICAL HISTORY: constipation, emesis x1 TECHNIQUE: Lateral decubitus and supine views of the abdomen COMPARISON: Limited abdomen May 17, 2023 FINDINGS: Air-filled transverse colon to 10.4 cm. Paucity of mid and distal small bowel gas. Air-filled right abdominal small bowel segments with air-fluid levels. No free air. No portal venous gas. Procedure Note Amanda Smith MD - 05/28/2023 EXAMINATION: XR ABDOMEN FLAT AND UPRIGHT CLINICAL HISTORY: constipation, emesis x1 TECHNIQUE: Lateral decubitus and supine views of the abdomen COMPARISON: Limited abdomen May 17, 2023 FINDINGS: Air-filled transverse colon to 10.4 cm. Paucity of mid and distal smallbowel gas. Air-filled right abdominal small bowel segments with air-fluidlevels. No free air. No portal venous gas. IMPRESSION Cannot distinguish ileus from early small bowel obstruction. Noperforation. Thank you for letting us participate in the care of this patient. If youare a health care provider and have any questions regarding this report,please contact the number below. For patients who have questions please contactthe health manager managed care that requested your imaging first. Edna Byrd APRN IMG DX ORDERABLES * POCT Glucose (05/28/2023 7:57 AM EDT) [facility] Glucose, POC 97 65 - 199 mg/dL [facility] Comment: Supplemental ranges: <140 mg/dL before meals <180 mg/dL all other times of the day Blood 05/28/2023 7:57 AM EDT 05/28/2023 7:57 AM EDT Andi Abbott MD POINT OF CARE TEST ORDERABLES Performing Organization Address City/State/[facility] Co de Phone Number [facility] [place] [address] * (ABNORMAL) Differential, Automated (05/28/2023 5:12 AM EDT) [facility] Neutrophil % 65.2 % [facility] Neutrophil Absolute 4.51 1.70 - 6.10 x10(3)/mc L [facility] Lymph % 15.1 % [facility] Lymphocytes Abs 1.0 0.9 - 3.2 x10(3)/mc L [facility] Monocyte % 13.7 % [facility] Monocyte Abs 1.0(H) 0.3 - 0.9 x10(3)/mc L [facility] Eos % 4.8 % [facility] Eosinophils Abs 0.3 0.0 - 0.4 x10(3)/[facility] LABORATORY Basophil % 0.6 % [facility] Baso Absolute 0.0 0.0 - 0.1 x10(3)/[facility] LABORATORY Immature Gran % 0.60 % [facility] Comment: Immature granulocytes(IG's)percentage and absolute count will include metamyelocytes, myelocytes, and promyelocytes. Blood smears from CBCs yielding IG's will be scanned manually for concordance. If this scan disagrees with the automated IG or if promyelocytes are noted, a manual differential will be performed. Immature Gran Absolute 0.04 0.00 - 0.04 x10(3)/[facility] LABOR[facility]ORY Blood 05/28/2023 5:12 AM EDT 05/28/2023 5:19 AM EDT Narrative Resulting Agency Comment Spec In Lab Nayana Mcginnis APRN HEMATOLOGY ORDERAB LES [facility] [place] [place] [address] * (ABNORMAL) Hemogram (05/28/2023 5:12 AM EDT) White Blood Cell 6.9 4.0 - 9.5 x10(3)/[facility] LABOR[facility]ORY Red Blood Cell 3.28(L) 4.58 - 5.54 x10(6)/[facility] LABOR[facility]ORY Hemoglobin 10.3(L) 13.7 - 16.5 g/dL [facility] Hematocrit 31.5(L) 40.5 - 48.5 % [facility] Mean Cell Volume 96.0(H) 82.9 - 93.1 fL [facility] Mean Cell Hemoglobin 31.4 27.5 - 32.1 pg [facility] Mean Cell Hemoglobin Concentration 32.7 32.0 - 35.7 g/dL [facility] Platelet 234 145 - 357 x10(3)/mc L [facility] RDW Standard Deviation 49.4(H) 36.0 - 45.0 fL [facility] RDW coefficient of variation 14.2(H) 11.4 - 13.8 % [facility] Mean Platelet Volume 10.9 7.6 - 12.9 fL [facility] NRBC% auto 0.0 % [facility] NRBC Absolute 0.000 0.000 - 0.000 x10(3)/mc L [facility] Blood 05/28/2023 5:12 AM EDT 05/28/2023 5:19 AM EDT Narrative Resulting Agency Comment Spec In Lab Nayana Mcginnis APRN HEMATOLOGY ORDERAB LES [facility] [place] [place] [address] * (ABNORMAL) Basic Metabolic Panel (non-fasting) (05/28/2023 5:10 AM EDT) Glucose 102 65 - 199 mg/dL [facility] Comment:Diabetes: >=200 mg/d L plus symptoms Blood Urea Nitrogen 28(H) 10 - 20 mg/dL [facility] Creatinine 1.53(H) 0.80 - 1.50 mg/dL [facility] Sodium 137 135 - 145 mmol/L [facility] Potassium 3.6 3.5 - 5.0 mmol/L [facility] Comment: Please note: ??Patients with WBC >100,000 may have falsely elevated Potassium levels. ??For accurate Potassium quantification in these patients send serum separator tube (gold top) for subsequent determinations. ??Contact the Clinical Chemistry Laboratory if there are any questions. Chloride 103 98 - 107 mmol/L [facility] Carbon Dioxide 20(L) 22 - 31 mmol/L [facility] Anion Gap 14 5 - 15 mmol/L [facility] Calcium 9.7 8.5 - 10.5 mg/dL [facility] Est Glomerular Filtration Rate 50(L) >=60 mL/min/1. 73 m?? [facility] Comment: This patient's estimated [...] and symptoms in addition to eGFR. Blood 05/28/2023 5:10 AM EDT 05/28/2023 5:19 AM EDT Narrative Resulting Agency Comment Spec In Lab Edna Byrd OPERATIONS INTERN CHEMISTRY ORDERABLE S Performing Organization Address City/[facility]/ZIP Co de Phone Number [facility] [place] [place] [address] * Phosphorus (05/28/2023 5:10 AM EDT) Phosphorus 3.4 2.5 - 4.5 mg/dL [facility] Blood 05/28/2023 5:10 AM EDT 05/28/2023 5:19 AM EDT Narrative Resulting Agency Comment Spec In Lab Edna Byrd OPERATIONS INTERN CHEMISTRY ORDERABLE S [facility] [place] [place] [address] * Magnesium (05/28/2023 5:10 AM EDT) Magnesium 0.78 0.69 - 1.07 mmol/L [facility] Blood 05/28/2023 5:10 AM EDT 05/28/2023 5:19 AM EDT Narrative Resulting Agency Comment Spec In Lab Edna Byrd OPERATIONS INTERN CHEMISTRY ORDERABLE S Performing Organization Address City/[facility]/[place] [address] * (ABNORMAL) Differential, Automated (05/27/2023 6:20 AM EDT) Neutrophil % 63.2 % [facility] Neutrophil Absolute 4.81 1.70 - 6.10 x10(3)/ L [facility] Lymph % 15.6 % [facility] Lymphocytes Abs 1.2 0.9 - 3.2 x10(3)/[facility] LABORATORY Monocyte % 14.6 % [facility] Monocyte Abs 1.1(H) 0.3 - 0.9 x10(3)/[facility] LABORATORY Eos % 5.4 % [facility] Eosinophils Abs 0.4 0.0 - 0.4 x10(3)/[facility] LABORATORY Basophil % 0.7 % [facility] Baso Absolute 0.0 0.0 - 0.1 x10(3)/[facility] LABORATORY Immature Gran % 0.50 % [facility] Comment: Immature granulocytes(IG's)percentage and absolute count will include metamyelocytes, myelocytes, and promyelocytes. Blood smears from CBCs yielding IG's will be scanned manually for concordance. If this scan disagrees with the automated IG or if promyelocytes are noted, a manual differential will be performed. Immature Gran Absolute 0.04 0.00 - 0.04 x10(3)/ L [facility] Blood 05/27/2023 6:20 AM EDT 05/27/2023 6:32 AM EDT Narrative Resulting Agency Comment Spec In Lab Nayana Mcginnis OPERATIONS INTERN HEMATOLOGY ORDERAB LES Performing Organization Address City/[facility]/ZIP Co de Phone Number [facility] [place] [address] * (ABNORMAL) Hemogram (05/27/2023 6:20 AM EDT) [facility] White Blood Cell 7.6 4.0 - 9.5 x10(3)/[facility] LABORAT[facility] Red Blood Cell 3.13(L) 4.58 - 5.54 x10(6)/[facility] LAB[facility]ORY Hemoglobin 9.9(L) 13.7 - 16.5 g/dL [facility] Hematocrit 30.1(L) 40.5 - 48.5 % [facility] Mean Cell Volume 96.2(H) 82.9 - 93.1 [facility] LAB[facility]AT[facility] Mean Cell Hemoglobin 31.6 27.5 - 32.1 pg [facility] Mean Cell Hemoglobin Concentration 32.9 32.0 - 35.7 g/dL [facility] Platelet 232 145 - 357 x10(3)/[facility] LABORATORY RDW Standard Deviation 49.8(H) 36.0 - 45.0 [facility]ORY RDW coefficient of variation 14.2(H) 11.4 - 13.8 % [facility] Mean Platelet Volume 11.2 7.6 - 12.9 [facility] LAB[facility]ATORY NRBC% auto 0.0 % [facility] NRBC Absolute 0.000 0.000 - 0.000 x10(3)/[facility] LABOR[facility]ORY Blood 05/27/2023 6:20 AM EDT 05/27/2023 6:32 AM EDT Narrative Resulting Agency Comment Spec In Lab Nayana Mcginnis APRN HEMATOLOGY ORDERAB LES [facility] [place] [place] [address] * (ABNORMAL) Basic Metabolic Panel (non-fasting) (05/27/2023 6:20 AM EDT) [facility] Glucose 100 65 - 199 mg/dL [facility] Comment:Diabetes: >=200 mg/d L plus symptoms Blood Urea Nitrogen 27(H) 10 - 20 mg/dL [facility] Creatinine 1.84(H) 0.80 - 1.50 mg/dL [facility] Sodium 137 135 - 145 mmol/L [facility] Potassium 4.0 3.5 - 5.0 mmol/L [facility] Comment: Please note: ??Patients with WBC >100,000 may have falsely elevated Potassium levels. ??For accurate Potassium quantification in these patients send serum separator tube (gold top) for subsequent determinations. ??Contact the Clinical Chemistry Laboratory if there are any questions. Chloride 101 98 - 107 mmol/L [facility] Carbon Dioxide 23 22 - 31 mmol/L [facility] Anion Gap 13 5 - 15 mmol/L [facility] Calcium 9.7 8.5 - 10.5 mg/dL [facility] Est Glomerular Filtration Rate 40(L) >=60 mL/min/1. 73 m?? [facility] Comment: This patient's estimated [...] and symptoms in addition to eGFR. Blood 05/27/2023 6:20 AM EDT 05/27/2023 6:32 AM EDT Narrative Resulting Agency Comment Spec In Lab Edna Byrd OPERATIONS INTERN CHEMISTRY ORDERABLE S [facility] [place] [place] [address] * Phosphorus (05/27/2023 6:20 AM EDT) Phosphorus 4.5 2.5 - 4.5 mg/dL [facility] Blood 05/27/2023 6:20 AM EDT 05/27/2023 6:32 AM EDT Narrative Resulting Agency Comment Spec In Lab Edna Byrd OPERATIONS INTERN CHEMISTRY ORDERABLE S Performing Organization Address [facility]/ZIP Co de Phone Number [facility] [place] [address] * Magnesium (05/27/2023 6:20 AM EDT) Magnesium 0.86 0.69 - 1.07 mmol/L [facility] Blood 05/27/2023 6:20 AM EDT 05/27/2023 6:32 AM EDT Narrative Resulting Agency Comment Spec In Lab Edna Byrd OPERATIONS INTERN CHEMISTRY ORDERABLE S Performing Organization Address [facility] Co de Phone Number [facility] [place] [address] * EEG (05/26/2023 9:54 AM EDT) Narrative Mel Amaya MD - 05/26/2023 9:54 AM EDT Mel Amaya MD ? 05/26/2023 ??4:08 PM [facility] Department of Neurology Inpatient Routine EEG Report Name of the Patient: ??Myla Acosta Date of : ?1955 Date of Service: ?05/26/2023 Referring physician: ?Cooper Ferrera DO. Reading Resident/Fellow: ??Florin Vasquez MD Reading Attending: Mel Amaya MD Routine EEG start time: 09:30 Routine EEG end time: 10:34 Total time recorded: 60 minutes Indication for EEG: Other (hallucinatory palinopsia) BRIEF HISTORY: Myla 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 male MEDICATIONS: No relevant medications PRIOR EEG(s): No prior EEG available. ?? METHODS: A 21 channel digitized electroencephalogram was performed in the [facility] Clinical Neurophysiology Laboratory. The 10/20 international system of electrode placement was used and bipolar and referential electrode montages were recorded. ??In addition to EEG the patient was monitored for EKG and lateral/vertical eye movements. Video was recorded during the session. GEOTECHNICAL INTERN'S REPORT: Performed by: ELVIS/HOLLIS Patient was not sleep deprived. Sleep was not attained. Photic stimulation was performed. Hyperventilation was not performed. Effort not applicable. Movement and other artifact was significant. Comments: ELECTROENCEPHALOGRAPHER'S REPORT Background: The background was continuous and spontaneously reactive composed of normal voltage, with well organized anterior to posterior gradient with frontally predominant beta and posterior alpha frequencies. ??There was a 8-9 Hz posterior dominant rhythm that attenuated with eye opening. Focal Asymmetries: Intermittent slowing and attenuation of R temporo-occipital region Sleep: Drowsiness and sleep was not seen during this recording. Interictal Activity: There were no epileptiform discharges or abnormal movement patterns. Patient Events or Seizures: No patient events or electrographic seizures were recorded. Provocative Maneuvers: Photic stimulation was performed however no driving response was observed. EKG: Single lead EKG was regular Technical Limitations: None INTERPRETATION: This 60-minute inpatient routine EEG was abnormal due to the presence of: Interictal: 1)Slowing and attenuation of R temporo-occipital region 2)No epileptiform discharges, rhythmic or periodic patterns were seen Ictal: 1)No discrete seizures were seen CLINICAL CORRELATION: This EEG demonstrates focal dysfunction of the R temporo-occipital region likely correlating with underlying structural abnormality in this region. No discrete seizures, epileptiform discharges, rhythmic or periodic patterns were seen. Florin Vasquez MD 05/26/2023 Attending attestation I was the attending physician supervising the fellow the above care. The EEG was reviewed in its entirety by me with the fellow and I agree with above report. ?? Mel Amaya MD Professor of Neurology Chair, Department of Neurology Andi Abbott MD NEUROLOGY ORDERABL ES * (ABNORMAL) Differential, Automated (05/26/2023 2:50 AM EDT) Pathologist [facility] Neutrophil % 61.9 % [facility] Neutrophil Absolute 4.06 1.70 - 6.10 x10(3)/ L [facility] Lymph % 14.6 % [facility] Lymphocytes Abs 1.0 0.9 - 3.2 x10(3)/ L [facility] Monocyte % 17.5 % [facility] Monocyte Abs 1.2(H) 0.3 - 0.9 x10(3)/ L [facility] Eos % 4.9 % [facility] Eosinophils Abs 0.3 0.0 - 0.4 x10(3)/[facility] LABORATORY Basophil % 0.5 % [facility] Baso Absolute 0.0 0.0 - 0.1 x10(3)/[facility] LABORATORY Immature Gran % 0.60 % [facility] Comment: Immature granulocytes(IG's)percentage and absolute count will include metamyelocytes, myelocytes, and promyelocytes. Blood smears from CBCs yielding IG's will be scanned manually for concordance. If this scan disagrees with the automated IG or if promyelocytes are noted, a manual differential will be performed. Immature Gran Absolute 0.04 0.00 - 0.04 x10(3)/ L [facility] Blood 05/26/2023 2:50 AM EDT 05/26/2023 3:01 AM EDT Narrative Resulting Agency Comment Spec In Lab Nayana Mcginnis APRN HEMATOLOGY ORDERAB LES [facility] [place] [place] [address] * (ABNORMAL) Hemogram (05/26/2023 2:50 AM EDT) [facility] White Blood Cell 6.6 4.0 - 9.5 x10(3)/ L [facility] Red Blood Cell 3.17(L) 4.58 - 5.54 x10(6)/mc L [facility] Hemoglobin 9.9(L) 13.7 - 16.5 g/dL [facility] Hematocrit 30.1(L) 40.5 - 48.5 % [facility] Mean Cell Volume 95.0(H) 82.9 - 93.1 fL [facility] Mean Cell Hemoglobin 31.2 27.5 - 32.1 pg [facility] Mean Cell Hemoglobin Concentration 32.9 32.0 - 35.7 g/dL [facility] Platelet 204 145 - 357 x10(3)/mc L [facility] RDW Standard Deviation 49.3(H) 36.0 - 45.0 [facility] LABORATORY RDW coefficient of variation 14.2(H) 11.4 - 13.8 % [facility] Mean Platelet Volume 10.4 7.6 - 12.9 [facility] LABORATORY NRBC% auto 0.0 % [facility] NRBC Absolute 0.000 0.000 - 0.000 x10(3)/mc L [facility] Blood 05/26/2023 2:50 AM EDT 05/26/2023 3:01 AM EDT Narrative Resulting Agency Comment Spec In Lab Nayana Mcginnis APRN HEMATOLOGY ORDERAB LES [facility] [place] [address] * (ABNORMAL) Basic Metabolic Panel (non-fasting) (05/26/2023 2:49 AM EDT) Glucose 106 65 - 199 mg/dL [facility] Comment:Diabetes: >=200 mg/d L plus symptoms Blood Urea Nitrogen 18 10 - 20 mg/dL [facility] Creatinine 1.37 0.80 - 1.50 mg/dL [facility] Sodium 138 135 - 145 mmol/L [facility] Potassium 3.6 3.5 - 5.0 mmol/L [facility] Comment: Please note: ??Patients with WBC >100,000 may have falsely elevated Potassium levels. ??For accurate Potassium quantification in these patients send serum separator tube (gold top) for subsequent determinations. ??Contact the Clinical Chemistry Laboratory if there are any questions. Chloride 103 98 - 107 mmol/L [facility] Carbon Dioxide 24 22 - 31 mmol/L [facility] Anion Gap 11 5 - 15 mmol/L [facility] Calcium 9.4 8.5 - 10.5 mg/dL [facility] Est Glomerular Filtration Rate 57(L) >=60 mL/min/1. 73 m?? [facility] Comment: This patient's estimated [...] and symptoms in addition to eGFR. Blood 05/26/2023 2:49 AM EDT 05/26/2023 3:01 AM EDT Narrative Resulting Agency Comment Spec In Lab Edna Byrd APRN CHEMISTRY ORDERABLE S [facility] [place] [address] * Phosphorus (05/26/2023 2:49 AM EDT) Phosphorus 3.8 2.5 - 4.5 mg/dL [facility] Blood 05/26/2023 2:49 AM EDT 05/26/2023 3:01 AM EDT Narrative Resulting Agency Comment Spec In Lab Edna T Gorecki OPERATIONS INTERN CHEMISTRY ORDERABLE S [facility] [place] [address] * Magnesium (05/26/2023 2:49 AM EDT) [facility] Magnesium 0.81 0.69 - 1.07 mmol/L [facility] Blood 05/26/2023 2:49 AM EDT 05/26/2023 3:01 AM EDT Narrative Resulting Agency Comment Spec In Lab Edna Wolfei OPERATIONS INTERN CHEMISTRY ORDERABLE S Performing Organization Address City/[facility]/ZIP Co de Phone Number [facility] [place] [place] [address] * POCT Glucose (05/25/2023 7:52 PM EDT) [facility] Glucose, POC 113 65 - 199 mg/dL [facility] Comment: Supplemental ranges: <140 mg/dL before meals <180 mg/dL all other times of the day Blood 05/25/2023 7:52 PM EDT 05/25/2023 7:52 PM EDT Andi Abbott MD POINT OF CARE TEST ORDERABLES Performing Organization Address City/[facility]/ZIP Co de Phone Number [facility] [place] [place] [address] * (ABNORMAL) Troponin (05/25/2023 7:52 PM EDT) [facility] Troponin-T, High Sensitivity 29(H) <=22 ng/L [facility] Comment: This patient's troponin T concentration was determined using the Scott 5th Generation troponin T assay. The 99th percentile for Troponin T for this test is 14 ng/L for females, and 22 ng/L for males. According to the fourth universal definition of myocardial infarction, the term acute myocardial infarction should be used when there is acute myocardial injury with clinical evidence of acute myocardial ischemia and with detection of a rise and/or fall of cardiac troponin values with at least one value above the 99th percentile and at least one of the following: - Symptoms of myocardial ischemia; - New ischemic ECG changes; - Development of pathological Q waves; - Imaging evidence of new loss of viable myocardium or new regional wall motion abnormality in a pattern consistent with an ischemic etiology; - Identification of a coronary thrombus by angiography or autopsy (not for type 2 or 3 MIs) Serial measurement of troponin and the change in troponin concentration over time (delta) is crucial for the diagnosis of acute myocardial infarction. Guidance on the interpretation of the new 5th Generation Troponin T values and the delta troponin value can be found in the [facility] Laboratory Test Catalog Troponin - [facility] Laboratory Test Catalog Reference: Fourth [place] Definition of Myocardial Infarction. Journal of the [place] [employer] 2018;72:0539-0410 Blood 05/25/2023 7:52 PM EDT 05/25/2023 8:00 PM EDT Narrative Resulting Agency Comment Spec In Lab Andi Abbott MD CHEMISTRY ORDERABL ES Performing Organization Address [facility] Co de Phone Number [facility] [place] [place] [address] * EKG 12 Lead (05/25/2023 6:43 PM EDT) Ventricular rate 105 BPM MUSE SYSTEM Atrial Rate 105 BPM MUSE SYSTEM P-R Interval 186 ms MUSE SYSTEM QRS Duration 158 ms MUSE SYSTEM Q-T Interval 380 ms MUSE SYSTEM QTC Calculated (Bezet) 502 ms MUSE SYSTEM Calculated P Phoenix 13 degrees MUSE SYSTEM Calculated R [place] -33 degrees MUSE SYSTEM Calculated T [place] -14 degrees MUSE SYSTEM INTERPRETATION Sinus tachycardia with Premature ventricular complexes or Fusion complexes Possible Left atrial enlargement Left axis deviation Right bundle branch block Abnormal ECG When compared with ECG of 25-MAY-2023 16:07, (unconfirmed) Fusion complexes are now Present Premature ventricular complexes are now Present Confirmed by MD Brown Katharine (Abdi) on 05/29/2023 5:29:59 AM MUSE SYSTEM 05/25/2023 6:43 PM EDT 05/29/2023 5:29 AM EDT Andi Abbott MD ECG ORDERABLES Performing Organization Address [facility]/ZIP Co de Phone Number MUSE SYSTEM * POCT Glucose (05/25/2023 6:01 PM EDT) [facility] Glucose, POC 117 65 - 199 mg/dL [facility] Comment: Supplemental ranges: <140 mg/dL before meals <180 mg/dL all other times of the day Blood 05/25/2023 6:01 PM EDT 05/25/2023 6:01 PM EDT Andi Abbott MD POINT OF CARE TEST ORDERABLES Performing Organization Address [facility] Co de Phone Number [facility] [place] [place] [address] * Aldosterone (05/25/2023 5:06 PM EDT) [facility] Aldosterone (JUNE) <4.0 <=21 ng/dL [facility] Comment: ADDITIONAL INFORMATION Reference range for patients 11 years and older is based on upright A.M. collection from subjects without sodium restrictions. This test was developed and its performance characteristics determined by [facility] in a manner consistent with CLIA requirements. This test has not been cleared or approved by the U.S. Food and Drug Administration. Test Performed by: [facility] [place] [address] [employer] Tester Engine: Ned Mixon M.D. Ph.D.; CLIA# [id number] Blood 05/25/2023 5:06 PM EDT 05/26/2023 8:12 AM EDT Narrative Resulting Agency Comment Spec In Lab Andi Abbott MD LAB SEND OUT ORDER KHANG Performing Organization Address [facility] Co de Phone Number [facility] [place] [address] * Renin Activity (05/25/2023 5:06 PM EDT) Renin Activity (JUNE) 6.6 ng/ml/hr [facility] Comment: REFERENCE VALUE (Peripheral vein specimen) Na-deplete, upright: ??Mean: 5.9 ??Range: 2.9-10.8 Na-replete, upright: ??Mean: 1.0 ??Range: < or =0.6-3.0 ADDITIONAL INFORMATION Testing performed by Liquid Chromatography-Tandem Mass Spectrometry (LC-MS/MS). This test was developed and its performance characteristics determined by [facility] in a manner consistent with CLIA requirements. This test has not been cleared or approved by the U.S. Food and Drug Administration. Test Performed by: [place] [address] [employer] T[employer] Engine: Ned Mixon M.D. Ph.D.; CLIA# [id number] Blood 05/25/2023 5:06 PM EDT 05/26/2023 9:04 AM EDT Narrative Resulting Agency Comment Spec In Lab Andi Abbott MD LAB SEND OUT ORDER KHANG [facility] [place] [place] [address] * (ABNORMAL) Troponin (05/25/2023 4:55 PM EDT) Pathologist [facility] Troponin-T, High Sensitivity 28(H) <=22 ng/L [facility] Comment: This patient's troponin T concentration was determined using the Scott 5th Generation troponin T assay. The 99th percentile for Troponin T for this test is 14 ng/L for females, and 22 ng/L for males. According to the fourth universal definition of myocardial infarction, the term acute myocardial infarction should be used when there is acute myocardial injury with clinical evidence of acute myocardial ischemia and with detection of a rise and/or fall of cardiac troponin values with at least one value above the 99th percentile and at least one of the following: - Symptoms of myocardial ischemia; - New ischemic ECG changes; - Development of pathological Q waves; - Imaging evidence of new loss of viable myocardium or new regional wall motion abnormality in a pattern consistent with an ischemic etiology; - Identification of a coronary thrombus by angiography or autopsy (not for type 2 or 3 MIs) Serial measurement of troponin and the change in troponin concentration over time (delta) is crucial for the diagnosis of acute myocardial infarction. Guidance on the interpretation of the new 5th Generation Troponin T values and the delta troponin value can be found in the [facility] Laboratory Test Catalog Troponin - [facility] Laboratory Test Catalog Reference: Fourth [place] Definition of Myocardial Infarction. Journal of the [place] [employer] 2018;72:5734-6453 Blood 05/25/2023 4:55 PM EDT 05/25/2023 5:08 PM EDT Narrative Resulting Agency Comment Spec In Lab Andi Abbott MD CHEMISTRY ORDERABL ES [facility] [place] [id number] * (ABNORMAL) Urine culture (05/25/2023 4:47 PM EDT) Urine Culture 50,000-99,000 cfu/ml Escherichia coli(A) [facility] Organism Escherichia coli(A) [facility] Indwelling Catheter Urine 05/25/2023 4:47 PM EDT 05/25/2023 6:05 PM EDT Narrative Resulting Agency Comment Spec In Lab Organism Antibiotic Method Susceptibility Escherichia coli Amikacin VITEK 2 METHOD Sensitive Escherichia coli Ampicillin + Sulbactam VITEK 2 METHOD Sensitive Escherichia coli Aztreonam VITEK 2 METHOD Sensitive Escherichia coli Cefazolin VITEK 2 METHOD Sensitive Escherichia coli Cefepime VITEK 2 METHOD <=1: Sensitive Escherichia coli Ceftazidime VITEK 2 METHOD <=1: Sensitive Escherichia coli Ceftriaxone VITEK 2 METHOD Sensitive Escherichia coli Ertapenem VITEK 2 METHOD Sensitive Escherichia coli Gentamicin VITEK 2 METHOD Sensitive Escherichia coli Levofloxacin VITEK 2 METHOD Sensitive Comment: Levofloxacin and Ciprofloxacin may not adequately treat infections in critically ill patients even when isolates test susceptible in the laboratory. Contact Infectious Disease before using in critically ill patients. Escherichia coli Meropenem VITEK 2 METHOD <=0.25: Sensitive Escherichia coli Nitrofurantoin VITEK 2 METHOD Sensitive Escherichia coli Piperacillin/Tazobactam VITEK 2 METHO D <=4: Sensitive Escherichia coli Tetracycline VITEK 2 METHOD Sensitive Escherichia coli Tobramycin VITEK 2 METHOD Sensitive Escherichia coli Trimethoprim/Sulfa VITEK 2 METHOD Sensitive Agustina Garg MD MICROBIOLOGY - [facility] AL ORDERABLES Performing Organization Address [facility] Co de Phone Number [facility] [place] [place] [address] * (ABNORMAL) Urinalysis Microscopic Exam (05/25/2023 4:47 PM EDT) Pathologist [facility] RBC, Urine <1 0 - 3 /HPF [facility] Comment:Interpret with cauti on, manual microscopic results are from an unspun specimen WBC, Urine >100(H) 0 - 3 /HPF [facility] WBC Clumps, Urine Few(A) None /HPF [facility] Comment:Interpret with cauti on, manual microscopic results are from an unspun specimen Bacteria, Urine Many(A) None /HPF [facility] Squamous Epithelial Cells Raw Data, Urine 1 <=4 /HPF [facility] Hyaline Casts, Urine 2 0 - 2 /LPF [facility] Indwelling Catheter Urine 05/25/2023 4:47 PM EDT 05/25/2023 5:00 PM EDT Narrative Resulting Agency Comment Spec In Lab Agustina Garg MD URINE ORDERABLES Performing Organization Address [facility] Co de Phone Number [facility] [place] [place] [address] * EKG 12 Lead (05/25/2023 4:07 PM EDT) Ventricular rate 128 BPM MUSE SYSTEM Atrial Rate 128 BPM MUSE SYSTEM P-R Interval 158 ms MUSE SYSTEM QRS Duration 148 ms MUSE SYSTEM Q-T Interval 372 ms MUSE SYSTEM QTC Calculated (Bezet) 543 ms MUSE SYSTEM Calculated P Phoenix 31 degrees MUSE SYSTEM Calculated R Phoenix -7 degrees MUSE SYSTEM Calculated T [place] -11 degrees MUSE SYSTEM INTERPRETATION Sinus tachycardia Right bundle branch block T wave abnormality, consider inferolateral ischemia Abnormal ECG When compared with ECG of 20-MAY-2023 08:27, Vent. rate has increased BY ??52 BPM T wave inversion more evident in Anterior leads Confirmed by MD Kevin, Angelic ([id number]) on 05/29/2023 5:29:41 AM MUSE SYSTEM 05/25/2023 4:07 PM EDT 05/29/2023 5:29 AM EDT Andi Abbott MD ECG ORDERABLES MUSE SYSTEM * (ABNORMAL) Urinalysis with reflex Culture (05/25/2023 2:53 PM EDT) Glucose, Urine Dipstick Negative Negative mg/dL [facility] Protein, Urine Dipstick 100(A) Negative mg/dL [facility] Bilirubin, Urine Dipstick Negative Negative mg/dL [facility] Comment: Clinical correlation required for positive Urine Bilirubin results as false positive may occur with some drugs and drug related products. If a false positive is suspected a serum total bilirubin should be considered if clinically indicated. Urobilinogen, Urine Dipstick Normal Normal mg/dL [facility] pH, Urn (dipstick) 6.0 5.0 - 8.0 [facility] Blood, Urine Dipstick Negative Negative mg/dL [facility] Ketone, Urine Dipstick Negative Negative mg/dL [facility] Nitrite, Urine Dipstick Positive(A) Negative [facility] Leukocytes, Urine Dipstick Large(A) Negative [facility] Appearance, Urine Dipstick Cloudy(A) Clear [facility] Specific [place] Urine Automated 1.020 1.005 - 1.030 [facility] Color, Urine Dipstick Dark Yellow Yellow [facility] Reflex to Culture Yes [facility] Indwelling Catheter Urine 05/25/2023 2:53 PM EDT 05/25/2023 5:00 PM EDT Narrative Resulting Agency Comment Spec In Lab Andi Abbott MD URINE ORDERABLES [facility] [place] [place] [address] * POCT Glucose (05/25/2023 12:15 PM EDT) Glucose, POC 115 65 - 199 mg/dL [facility] Comment: Supplemental ranges: <140 mg/dL before meals <180 mg/dL all other times of the day Blood 05/25/2023 12:1 5 PM EDT 05/25/2023 12:15 PM EDT Andi Abbott MD POINT OF CARE TEST ORDERABLES Performing Organization Address City/[facility]/ZIP Co de Phone Number [facility] [place] [place] [address] * POCT Glucose (05/25/2023 11:25 AM EDT) Glucose, POC 141 65 - 199 mg/dL [facility] Comment: Supplemental ranges: <140 mg/dL before meals <180 mg/dL all other times of the day Blood 05/25/2023 11:2 5 AM EDT 05/25/2023 11:25 AM EDT Andi Abbott MD POINT OF CARE TEST ORDERABLES [facility] [place] [place] [address] * POCT Glucose (05/25/2023 8:37 AM EDT) Glucose, POC 103 65 - 199 mg/dL [facility] Comment: Supplemental ranges: <140 mg/dL before meals <180 mg/dL all other times of the day Blood 05/25/2023 8:37 AM EDT 05/25/2023 8:37 AM EDT Andi Abbott MD POINT OF CARE TEST ORDERABLES [facility] [place] [place] [address] * (ABNORMAL) Differential, Automated (05/25/2023 12:47 AM EDT) Neutrophil % 68.0 % [facility] Neutrophil Absolute 4.32 1.70 - 6.10 x10(3)/mc L [facility] Lymph % 12.9 % [facility] Lymphocytes Abs 0.8(L) 0.9 - 3.2 x10(3)/mc L [facility] Monocyte % 12.8 % [facility] Monocyte Abs 0.8 0.3 - 0.9 x10(3)/mc L [facility] Eos % 5.2 % [facility] Eosinophils Abs 0.3 0.0 - 0.4 x10(3)/mc L [facility] Basophil % 0.5 % [facility] Baso Absolute 0.0 0.0 - 0.1 x10(3)/mc L [facility] Immature Gran % 0.60 % [facility] Comment: Immature granulocytes(IG's)percentage and absolute count will include metamyelocytes, myelocytes, and promyelocytes. Blood smears from CBCs yielding IG's will be scanned manually for concordance. If this scan disagrees with the automated IG or if promyelocytes are noted, a manual differential will be performed. Immature Gran Absolute 0.04 0.00 - 0.04 x10(3)/mc L [facility] Blood 05/25/2023 12:4 7 AM EDT 05/25/2023 12:54 AM EDT Narrative Resulting Agency Comment Spec In Lab Nayana Mcginnis OPERATIONS INTERN HEMATOLOGY ORDERAB LES [facility] [place] [place] [address] * (ABNORMAL) Hemogram (05/25/2023 12:47 AM EDT) White Blood Cell 6.4 4.0 - 9.5 x10(3)/mc L [facility] Red Blood Cell 3.20(L) 4.58 - 5.54 x10(6)/mc L [facility] Hemoglobin 10.1(L) 13.7 - 16.5 g/dL [facility] Hematocrit 30.0(L) 40.5 - 48.5 % [facility] Mean Cell Volume 93.8(H) 82.9 - 93.1 [facility] Mean Cell Hemoglobin 31.6 27.5 - 32.1 [facility] Mean Cell Hemoglobin Concentration 33.7 32.0 - 35.7 g/dL [facility] Platelet 209 145 - 357 x10(3)/mc L [facility] RDW Standard Deviation 47.8(H) 36.0 - 45.0 [facility] RDW coefficient of variation 13.9(H) 11.4 - 13.8 % [facility] Mean Platelet Volume 10.0 7.6 - 12.9 [facility]ORY NRBC% auto 0.0 % [facility] NRBC Absolute 0.000 0.000 - 0.000 x10(3)/mc L [facility] Blood 05/25/2023 12:4 7 AM EDT 05/25/2023 12:54 AM EDT Narrative Resulting Agency Comment Spec In Lab Nayana Mcginnis OPERATIONS INTERN HEMATOLOGY ORDERAB LES [facility] [place] [place] [address] * Basic Metabolic Panel (non-fasting) (05/25/2023 12:47 AM EDT) Glucose 113 65 - 199 mg/dL [facility] Comment:Diabetes: >=200 mg/d L plus symptoms Blood Urea Nitrogen 18 10 - 20 mg/dL [facility] Creatinine 1.20 0.80 - 1.50 mg/dL [facility] Sodium 137 135 - 145 mmol/L [facility] Potassium 3.7 3.5 - 5.0 mmol/L [facility] Comment: Please note: ??Patients with WBC >100,000 may have falsely elevated Potassium levels. ??For accurate Potassium quantification in these patients send serum separator tube (gold top) for subsequent determinations. ??Contact the Clinical Chemistry Laboratory if there are any questions. Chloride 102 98 - 107 mmol/L [facility] Carbon Dioxide 25 22 - 31 mmol/L [facility] Anion Gap 10 5 - 15 mmol/L [facility] Calcium 9.9 8.5 - 10.5 mg/dL [facility] Est Glomerular Filtration Rate 67 >=60 mL/min/1. 73 m?? [facility] Comment: This patient's estimated [...] and symptoms in addition to eGFR. Blood 05/25/2023 12:4 7 AM EDT 05/25/2023 12:54 AM EDT Narrative Resulting Agency Comment Spec In Lab Edna Byrd OPERATIONS INTERN CHEMISTRY ORDERABLE S [facility] [place] [place] [address] * Phosphorus (05/25/2023 12:47 AM EDT) Phosphorus 3.6 2.5 - 4.5 mg/dL [facility] Blood 05/25/2023 12:4 7 AM EDT 05/25/2023 12:54 AM EDT Narrative Resulting Agency Comment Spec In Lab Edna Ira Chaucindy NIXN CHEMISTRY ORDERABLE S Performing Organization Address City/[facility]/ZIP Co de Phone Number [facility] [place] [place] [address] * Magnesium (05/25/2023 12:47 AM EDT) Magnesium 0.71 0.69 - 1.07 mmol/L [facility] Blood 05/25/2023 12:4 7 AM EDT 05/25/2023 12:54 AM EDT Narrative Resulting Agency Comment Spec In Lab Edna Byrd APRN CHEMISTRY ORDERABLE S Performing Organization Address [facility]/ZIP Co de Phone Number [facility] [place] [place] [address] * POCT Glucose (05/24/2023 9:55 PM EDT) Glucose, POC 107 65 - 199 mg/dL [facility] Comment: Supplemental ranges: <140 mg/dL before meals <180 mg/dL all other times of the day Blood 05/24/2023 9:55 PM EDT 05/24/2023 9:55 PM EDT Crystal Mckenna MD POINT OF CARE TEST ORDERABLES Performing Organization Address City/[facility]/ZIP Co de Phone Number [facility] [place] [place] [address] * POCT Glucose (05/24/2023 4:09 PM EDT) Glucose, POC 136 65 - 199 mg/dL [facility] Comment: Supplemental ranges: <140 mg/dL before meals <180 mg/dL all other times of the day Blood 05/24/2023 4:09 PM EDT 05/24/2023 4:09 PM EDT Crystal Mckenna MD POINT OF CARE TEST ORDERABLES Performing Organization Address City/[facility] Co de Phone Number [facility] [place] [place] [address] * POCT Glucose (05/24/2023 11:55 AM EDT) Glucose, POC 107 65 - 199 mg/dL [facility] Comment: Supplemental ranges: <140 mg/dL before meals <180 mg/dL all other times of the day Blood 05/24/2023 11:5 5 AM EDT 05/24/2023 11:55 AM EDT Crystal Mckenna MD POINT OF CARE TEST ORDERABLES Performing Organization Address [facility] Co de Phone Number [facility] [place] [address] * (ABNORMAL) Differential, Automated (05/24/2023 5:12 AM EDT) Pathologist [facility] Neutrophil % 67.4 % [facility] Neutrophil Absolute 4.98 1.70 - 6.10 x10(3)/mc L [facility] Lymph % 13.0 % [facility] Lymphocytes Abs 1.0 0.9 - 3.2 x10(3)/mc L [facility] Monocyte % 11.1 % [facility] Monocyte Abs 0.8 0.3 - 0.9 x10(3)/mc L [facility] Eos % 7.3 % [facility] Eosinophils Abs 0.5(H) 0.0 - 0.4 x10(3)/mc L [facility] Basophil % 0.5 % [facility] Baso Absolute 0.0 0.0 - 0.1 x10(3)/[facility] LABORATORY Immature Gran % 0.70 % [facility] Comment: Immature granulocytes(IG's)percentage and absolute count will include metamyelocytes, myelocytes, and promyelocytes. Blood smears from CBCs yielding IG's will be scanned manually for concordance. If this scan disagrees with the automated IG or if promyelocytes are noted, a manual differential will be performed. Immature Gran Absolute 0.05(H) 0.00 - 0.04 x10(3)/[facility] LABORATORY Blood 05/24/2023 5:12 AM EDT 05/24/2023 5:25 AM EDT Narrative Resulting Agency Comment Spec In Lab Nayana Mcginnis APRN HEMATOLOGY ORDERAB LES Performing Organization Address City/State/[facility] Co de Phone Number [facility] [place] [place] [address] * (ABNORMAL) Hemogram (05/24/2023 5:12 AM EDT) White Blood Cell 7.4 4.0 - 9.5 x10(3)/[facility] LABORATORY Red Blood Cell 3.04(L) 4.58 - 5.54 x10(6)/[facility] LABORATORY Hemoglobin 9.7(L) 13.7 - 16.5 g/dL [facility] Hematocrit 29.1(L) 40.5 - 48.5 % [facility] Mean Cell Volume 95.7(H) 82.9 - 93.1 fL [facility] Mean Cell Hemoglobin 31.9 27.5 - 32.1 pg [facility] Mean Cell Hemoglobin Concentration 33.3 32.0 - 35.7 g/dL [facility] Platelet 218 145 - 357 x10(3)/[facility] LABORATORY RDW Standard Deviation 49.9(H) 36.0 - 45.0 fL [facility] RDW coefficient of variation 14.1(H) 11.4 - 13.8 % [facility] Mean Platelet Volume 9.9 7.6 - 12.9 fL [facility] NRBC% auto 0.0 % [facility] NRBC Absolute 0.000 0.000 - 0.000 x10(3)/mc L [facility] Blood 05/24/2023 5:12 AM EDT 05/24/2023 5:25 AM EDT Narrative Resulting Agency Comment Spec In Lab Nayana Mcginnis APRN HEMATOLOGY ORDERAB LES [facility] [place] [address] * Basic Metabolic Panel (non-fasting) (05/24/2023 5:12 AM EDT) Glucose 102 65 - 199 mg/dL [facility] Comment:Diabetes: >=200 mg/d L plus symptoms Blood Urea Nitrogen 18 10 - 20 mg/dL [facility] Creatinine 1.19 0.80 - 1.50 mg/dL [facility] Sodium 138 135 - 145 mmol/L [facility] Potassium 4.0 3.5 - 5.0 mmol/L [facility] Comment: Please note: ??Patients with WBC >100,000 may have falsely elevated Potassium levels. ??For accurate Potassium quantification in these patients send serum separator tube (gold top) for subsequent determinations. ??Contact the Clinical Chemistry Laboratory if there are any questions. Chloride 102 98 - 107 mmol/L [facility] Carbon Dioxide 26 22 - 31 mmol/L [facility] Anion Gap 10 5 - 15 mmol/L [facility] Calcium 9.8 8.5 - 10.5 mg/dL [facility] Est Glomerular Filtration Rate 68 >=60 mL/min/1. 73 m?? [facility] Comment: This patient's estimated [...] and symptoms in addition to eGFR. Blood 05/24/2023 5:12 AM EDT 05/24/2023 5:25 AM EDT Narrative Resulting Agency Comment Spec In Lab Edna Wolfei OPERATIONS INTERN CHEMISTRY ORDERABLE S Performing Organization Address [facility] Co de Phone Number [facility] [place] [place] [address] * Phosphorus (05/24/2023 5:12 AM EDT) Phosphorus 3.9 2.5 - 4.5 mg/dL [facility] Blood 05/24/2023 5:12 AM EDT 05/24/2023 5:25 AM EDT Narrative Resulting Agency Comment Spec In Lab Edna Byrd OPERATIONS INTERN CHEMISTRY ORDERABLE S Performing Organization Address [facility]/ZIP Co de Phone Number [facility] [place] [place] [address] * Magnesium (05/24/2023 5:12 AM EDT) Magnesium 0.73 0.69 - 1.07 mmol/L [facility] Blood 05/24/2023 5:12 AM EDT 05/24/2023 5:25 AM EDT Narrative Resulting Agency Comment Spec In Lab Edna Byrd OPERATIONS INTERN CHEMISTRY ORDERABLE S Performing Organization Address City/[facility]/ZIP Co de Phone Number [facility] [place] [place] [address] * POCT Glucose (05/23/2023 5:13 PM EDT) Glucose, POC 106 65 - 199 mg/dL [facility] Comment: Supplemental ranges: <140 mg/dL before meals <180 mg/dL all other times of the day Blood 05/23/2023 5:13 PM EDT 05/23/2023 5:13 PM EDT Crystal Mckenna MD POINT OF CARE TEST ORDERABLES [facility] [place] [place] [address] * POCT Glucose (05/23/2023 11:13 AM EDT) Glucose, POC 144 65 - 199 mg/dL [facility] Comment: Supplemental ranges: <140 mg/dL before meals <180 mg/dL all other times of the day Blood 05/23/2023 11:1 3 AM EDT 05/23/2023 11:13 AM EDT Crystal Mckenna MD POINT OF CARE TEST ORDERABLES [facility] [place] [place] [address] * POCT Glucose (05/23/2023 8:33 AM EDT) Glucose, POC 106 65 - 199 mg/dL [facility] Comment: Supplemental ranges: <140 mg/dL before meals <180 mg/dL all other times of the day Blood 05/23/2023 8:33 AM EDT 05/23/2023 8:33 AM EDT Crystal Mckenna MD POINT OF CARE TEST ORDERABLES [facility] [place] [place] [address] * POCT Glucose (05/23/2023 6:13 AM EDT) Glucose, POC 109 65 - 199 mg/dL [facility] Comment: Supplemental ranges: <140 mg/dL before meals <180 mg/dL all other times of the day Blood 05/23/2023 6:13 AM EDT 05/23/2023 6:13 AM EDT Crystal Mckenna MD POINT OF CARE TEST ORDERABLES [facility] [place] [place] [address] * POCT Glucose (05/23/2023 4:12 AM EDT) Glucose, POC 116 65 - 199 mg/dL [facility] Comment: Supplemental ranges: <140 mg/dL before meals <180 mg/dL all other times of the day Blood 05/23/2023 4:12 AM EDT 05/23/2023 4:12 AM EDT Crystal Mckenna MD POINT OF CARE TEST ORDERABLES [facility] [place] [place] [address] * POCT Glucose (05/23/2023 12:55 AM EDT) Glucose, POC 107 65 - 199 mg/dL [facility] Comment: Supplemental ranges: <140 mg/dL before meals <180 mg/dL all other times of the day Blood 05/23/2023 12:5 5 AM EDT 05/23/2023 12:55 AM EDT Crystal Mckenna MD POINT OF CARE TEST ORDERABLES [facility] [place] [place] [address] * (ABNORMAL) Differential, Automated (05/23/2023 12:51 AM EDT) Neutrophil % 60.8 % [facility] Neutrophil Absolute 3.70 1.70 - 6.10 x10(3)/[facility] LABORATORY Lymph % 16.3 % [facility] Lymphocytes Abs 1.0 0.9 - 3.2 x10(3)/[facility] LABORATORY Monocyte % 12.5 % [facility] Monocyte Abs 0.8 0.3 - 0.9 x10(3)/[facility] LABORATORY Eos % 8.9 % [facility] Eosinophils Abs 0.5(H) 0.0 - 0.4 x10(3)/[facility] LABORATORY Basophil % 1.0 % [facility] Baso Absolute 0.1 0.0 - 0.1 x10(3)/[facility] LABORATORY Immature Gran % 0.50 % [facility] Comment: Immature granulocytes(IG's)percentage and absolute count will include metamyelocytes, myelocytes, and promyelocytes. Blood smears from CBCs yielding IG's will be scanned manually for concordance. If this scan disagrees with the automated IG or if promyelocytes are noted, a manual differential will be performed. Immature Gran Absolute 0.03 0.00 - 0.04 x10(3)/[facility] LABORATORY Blood 05/23/2023 12:5 1 AM EDT 05/23/2023 1:02 AM EDT Narrative Resulting Agency Comment Spec In Lab Nayana Mcginnis OPERATIONS INTERN HEMATOLOGY ORDERAB LES [facility] [place] [address] * (ABNORMAL) Hemogram (05/23/2023 12:51 AM EDT) White Blood Cell 6.1 4.0 - 9.5 x10(3)/[facility] LABORATORY Red Blood Cell 3.06(L) 4.58 - 5.54 x10(6)/mc L [facility] Hemoglobin 9.6(L) 13.7 - 16.5 g/dL [facility] Hematocrit 29.4(L) 40.5 - 48.5 % [facility] Mean Cell Volume 96.1(H) 82.9 - 93.1 [facility] LABORATORY Mean Cell Hemoglobin 31.4 27.5 - 32.1 pg [facility] Mean Cell Hemoglobin Concentration 32.7 32.0 - 35.7 g/dL [facility] Platelet 204 145 - 357 x10(3)/ L [facility] RDW Standard Deviation 50.9(H) 36.0 - 45.0 [facility] LABORATORY RDW coefficient of variation 14.4(H) 11.4 - 13.8 % [facility] Mean Platelet Volume 10.6 7.6 - 12.9 [facility] LABORATORY NRBC% auto 0.0 % [facility] NRBC Absolute 0.000 0.000 - 0.000 x10(3)/mc [facility] Blood 05/23/2023 12:5 1 AM EDT 05/23/2023 1:02 AM EDT Narrative Resulting Agency Comment Spec In Lab Nayana Mcginnis APRN HEMATOLOGY ORDERAB LES [facility] [place] [address] * (ABNORMAL) Basic Metabolic Panel (non-fasting) (05/23/2023 12:48 AM EDT) Glucose 105 65 - 199 mg/dL [facility] Comment:Diabetes: >=200 mg/d L plus symptoms Blood Urea Nitrogen 22(H) 10 - 20 mg/dL [facility] Creatinine 1.17 0.80 - 1.50 mg/dL [facility] Sodium 142 135 - 145 mmol/L [facility] Potassium 4.2 3.5 - 5.0 mmol/L [facility] Comment: Please note: ??Patients with WBC >100,000 may have falsely elevated Potassium levels. ??For accurate Potassium quantification in these patients send serum separator tube (gold top) for subsequent determinations. ??Contact the Clinical Chemistry Laboratory if there are any questions. Chloride 106 98 - 107 mmol/L [facility] Carbon Dioxide 27 22 - 31 mmol/L [facility] Anion Gap 9 5 - 15 mmol/L [facility] Calcium 9.6 8.5 - 10.5 mg/dL [facility] Est Glomerular Filtration Rate 69 >=60 mL/min/1. 73 m?? [facility] Comment: This patient's estimated [...] and symptoms in addition to eGFR. Blood 05/23/2023 12:4 8 AM EDT 05/23/2023 1:02 AM EDT Narrative Resulting Agency Comment Spec In Lab Edna Byrd OPERATIONS INTERN CHEMISTRY ORDERABLE S [facility] [place] [place] [address] * Phosphorus (05/23/2023 12:48 AM EDT) Phosphorus 3.6 2.5 - 4.5 mg/dL [facility] Blood 05/23/2023 12:4 8 AM EDT 05/23/2023 1:02 AM EDT Narrative Resulting Agency Comment Spec In Lab Edna Byrd OPERATIONS INTERN CHEMISTRY ORDERABLE S Performing Organization Address [facility]/ZIP Co de Phone Number [facility] [place] [place] [address] * Magnesium (05/23/2023 12:48 AM EDT) Magnesium 0.76 0.69 - 1.07 mmol/L [facility] Blood 05/23/2023 12:4 8 AM EDT 05/23/2023 1:02 AM EDT Narrative Resulting Agency Comment Spec In Lab Edna Byrd OPERATIONS INTERN CHEMISTRY ORDERABLE S Performing Organization Address [facility] Co de Phone Number [facility] [place] [address] * POCT Glucose (05/22/2023 7:45 PM EDT) Glucose, POC 112 65 - 199 mg/dL [facility] Comment: Supplemental ranges: <140 mg/dL before meals <180 mg/dL all other times of the day Blood 05/22/2023 7:45 PM EDT 05/22/2023 7:45 PM EDT Crystal Mckenna MD POINT OF CARE TEST ORDERABLES Performing Organization Address [facility] Co de Phone Number [facility] [place] [address] * POCT Glucose (05/22/2023 4:21 PM EDT) Glucose, POC 141 65 - 199 mg/dL [facility] Comment: Supplemental ranges: <140 mg/dL before meals <180 mg/dL all other times of the day Blood 05/22/2023 4:21 PM EDT 05/22/2023 4:21 PM EDT Crystal Mckenna MD POINT OF CARE TEST ORDERABLES [facility] [place] [address] * ECHO LMTD W CONTRAST W LMTD SPEC DOPP COLOR DOPP (05/22/2023 2:21 PM EDT) EF 74 HEART[facility] SYSTEM Anatomical Region Laterality Modality Cardiac Other 05/22/2023 1:34 PM EDT Narrative 05/22/2023 2:53 PM [place]T [address] [place] [address] ? Echocardiogram Report Name: MYLA ACOSTA ? Study Date: 05/22/2023 01:34 PM ? Patient Location: [id number] : 1955 ? Height: 173 cm ? Account: [id number] Age: 67 yrs ? Weight: 114 kg Gender: Male ?BSA: 2.3 m2 Ordering Physician: CRYSTAL MCKENNA Referring Physician: NAYANA BLACKWOOD Performed By: Sintia Velasco RDCS Reason For Study: Cardiorenal syndrome with renal failure Exam Location: [facility]. Interpretation Summary Moderate increased LV wall thickness (1.5 cm, mostly concentric) with hyperdynamic systolic function. The LVEF is estimated at 74% using a Hester's biplane. There are no regional wall motion abnormalities. Normal biatrial size. No significant valvular abnormalities. The aortic root is dilated (4.1 cm). The ascending aorta is dilated (4.8 cm). Other details as below. As compared to the prior echo report from 04/19/2023, there is no significant change (prior report estimated the aortic root at 4.2 cm and ascending aorta at 4.5 cm which likely represents minor differences in measurement methods - consider further evaluation with a CT or MRI if clinically indicated). Procedure Limited - 57152. Color Doppler - 07752. Doppler - 86889. Image enhancement Optison was used for both Doppler and ventricular definition. Suboptimal quality. There is sinus tachycardia. Left Ventricle Left ventricle is of normal size. Wall thickness is moderately increased. Left ventricular systolic function is normal. The left ventricular ejection fraction is 74% by Hester's biplane. There are no segmental wall motion abnormalities. Right Ventricle The right ventricle is not well visualized. The right ventricle is probably normal in size. Right ventricular function is probably normal. Left Atrium The left atrium is normal. The interatrial septum is not well visualized. Right Atrium The right atrium is normal. Aortic Valve The aortic valve is not well visualized. The aortic valve is probably trileaflet. The aortic valve is mildly thickened. There is no aortic stenosis. There is no aortic regurgitation. Mitral Valve The mitral valve leaflets are thickened. There is no mitral stenosis. There is trace mitral regurgitation. Tricuspid Valve The tricuspid valve is not well visualized. There is no tricuspid stenosis. The severity of tricuspid regurgitation cannot be determined from the available data. Pulmonic Valve The pulmonic valve appears to be structurally and functionally normal. There is no pulmonic valve regurgitation. Great Arteries The aortic root is dilated. The diameter at the level of the sinuses of Valsalva is 4.1 cm. The ascending aorta is dilated. The maximum diameter of the proximal ascending aorta is 4.8 cm. The main pulmonary artery is not well visualized. Venous Inferior vena cava is not well visualized. Pericardium/Pleural There is no pericardial effusion. Hemodynamics Pulmonary artery hypertension could not be assessed due to inadequate tricuspid regurgitation jet. Left ventricular diastolic function is normal. Ejection Fraction ?2D Measurements ? Volumes EF(MOD-bp): 74.2 % ?IVSd: 1.7 cm ? LAV(MOD- bp) Indexed: ?LVIDd: 5.4 cm ?LVIDs: 3.4 cm ?32.3 ml/m2 ?LVPWd: 1.9 cm ?EDV(MOD-bp) Indexed: ? 60.0 ml/m2 ?RWT: 0.70 {ratio} ?ESV(MOD-bp) Indexed: ?LV mass(C)d: 467.5 grams ?LV mass(C)dI: 207.7 grams/m2 ?? 15.4 ml/m2 ?Ao root diam: 3.9 cm ? SV(LVOT): 83.1 ml ?Ao root diam index: 1.7 ?SI(LVOT): 36.9 ml/m2 ?asc Aorta Diam: 4.8 cm ?LVOT diam: 2.3 cm ?TAPSE_phl: 3.1 cm Doppler LV V1 VTI: 19.3 cm Ao V2 VTI: 25.2 cm Ao Max: 154.0 cm/sec Ao valve max: 9.5 mmHg Ao valve mean: 4.6 mmHg MV E max chante: 61.8 cm/sec MV A max chante: 72.1 cm/sec MV E/A: 0.86 MV dec time: 0.32 sec Lat Peak E' Chante: 8.6 cm/sec E/ e' (lat): 7.1 Med Peak E' Chante: 5.3 cm/sec E/e' (med): 11.7 E/e' Average: 9.4 TATIANNA(I,D): 3.3 cm2 Dimensionless index Aov: 0.76 I ?WMSI = 1.00 ? % Normal = 100 ?Segments ??Size X - Cannot ?2 - ?4 - ?1-2 ? small Interpret ?1 - Normal ?? Hypokinetic 3 - Akinetic Dyskinetic ?? 3-5 ? moderate 5 - ? 6-14 ?large Aneurysmal ?15-16 ?? diffuse Procedure Note Ambrosio Bland MD - 05/22/2023 [address] [place] [address] Echocardiogram Report Name: MYLA ACOSTA Study Date: 1:34 PM Patient Location: [id number] : 1955 Height: 173 cm Account: [id number] Age: 67 yrs Weight: 114 kg Gender: Male BSA: 2.3 m2 Ordering Physician: CRYSTAL MCKENNA Referring Physician: NAYANA BLACKWOOD Performed By: Sintia Velasco RDCS Reason For Study: Cardiorenal syndrome with renal failure Exam Location: [facility]. Interpretation Summary Moderate increased LV wall thickness (1.5 cm, mostly concentric) withhyperdynamic systolic function. The LVEF is estimated at 74% using a Hester's biplane.There are no regional wall motion abnormalities. Normal biatrial size. No significant valvular abnormalities. The aortic root is dilated (4.1 cm). The ascending aorta is dilated (4.8cm). Other details as below. As compared to the prior echo report from 04/19/2023, there is nosignificant change (prior report estimated the aortic root at 4.2 cm and ascendingaorta at 4.5 cm which likely represents minor differences in measurement methods - consider further evaluation with a CT or MRI if clinically indicated). Procedure Limited - 82653. Color Doppler - 29248. Doppler - 34299. Image enhancementOptison was used for both Doppler and ventricular definition. Suboptimal quality.There is sinus tachycardia. Left Ventricle Left ventricle is of normal size. Wall thickness is moderately increased.Left ventricular systolic function is normal. The left ventricular ejectionfraction is 74% by Hester's biplane. There are no segmental wall motionabnormalities. Right Ventricle The right ventricle is not well visualized. The right ventricle isprobably normal in size. Right ventricular function is probably normal. Left Atrium The left atrium is normal. The interatrial septum is not wellvisualized. Right Atrium The right atrium is normal. Aortic Valve The aortic valve is not well visualized. The aortic valve is probablytrileaflet. The aortic valve is mildly thickened. There is no aortic stenosis. Thereis no aortic regurgitation. Mitral Valve The mitral valve leaflets are thickened. There is no mitral stenosis.There is trace mitral regurgitation. Tricuspid Valve The tricuspid valve is not well visualized. There is no tricuspidstenosis. The severity of tricuspid regurgitation cannot be determined from theavailable data. Pulmonic Valve The pulmonic valve appears to be structurally and functionally normal.There is no pulmonic valve regurgitation. Great Arteries The aortic root is dilated. The diameter at the level of the sinuses ofValsalva is 4.1 cm. The ascending aorta is dilated. The maximum diameter of theproximal ascending aorta is 4.8 cm. The main pulmonary artery is not wellvisualized. Venous Inferior vena cava is not well visualized. Pericardium/Pleural There is no pericardial effusion. Hemodynamics Pulmonary artery hypertension could not be assessed due to inadequatetricuspid regurgitation jet. Left ventricular diastolic function is normal. Ejection Fraction 2D Measurements Volumes EF(MOD-bp): 74.2 % IVSd: 1.7 cm LAV(MOD-bp)Indexed: LVIDd: 5.4 cm LVIDs: 3.4 cm 32.3 ml/m2 LVPWd: 1.9 cm EDV(MOD-bp)Indexed: 60.0 ml/m2 RWT: 0.70 {ratio} ESV(MOD-bp)Indexed: LV mass(C)d: 467.5 grams LV mass(C)dI: 207.7 grams/m2 15.4 ml/m2 Ao root diam: 3.9 cm SV(LVOT): 83.1ml Ao root diam index: 1.7 SI(LVOT): 36.9ml/m2 asc Aorta Diam: 4.8 cm LVOT diam: 2.3 cm TAPSE_phl: 3.1 cm Doppler LV V1 VTI: 19.3 cm Ao V2 VTI: 25.2 cm Ao Max: 154.0 cm/sec Ao valve max: 9.5 mmHg Ao valve mean: 4.6 mmHg MV E max chante: 61.8 cm/sec MV A max chante: 72.1 cm/sec MV E/A: 0.86 MV dec time: 0.32 sec Lat Peak E' Chante: 8.6 cm/sec E/ e' (lat): 7.1 Med Peak E' Chante: 5.3 cm/sec E/e' (med): 11.7 E/e' Average: 9.4 TATIANNA(I,D): 3.3 cm2 Dimensionless index Aov: 0.76 I WMSI = 1.00 % Normal = 100 SegmentsSize X - Cannot 2 - 4 - 1-2small Interpret 1 - Normal Hypokinetic 3 - Akinetic Dyskinetic 3-5moderate 5 - 6-14large Aneurysmal 15-16diffuse Crystal Mckenna MD ECHO ORDERABLES * POCT Glucose (05/22/2023 11:44 AM EDT) Pathologist [facility] Glucose, POC 139 65 - 199 mg/dL [facility] Comment: Supplemental ranges: <140 mg/dL before meals <180 mg/dL all other times of the day Blood 05/22/2023 11:4 4 AM EDT 05/22/2023 11:44 AM EDT Crystal Mckenna MD POINT OF CARE TEST ORDERABLES Performing Organization Address [facility] Co de Phone Number [facility] [place] [address] * POCT Glucose (05/22/2023 7:41 AM EDT) Glucose, POC 152 65 - 199 mg/dL [facility] Comment: Supplemental ranges: <140 mg/dL before meals <180 mg/dL all other times of the day Blood 05/22/2023 7:41 AM EDT 05/22/2023 7:41 AM EDT Crystal Mckenna MD POINT OF CARE TEST ORDERABLES Performing Organization Address [facility] Co de Phone Number [facility] [place] [address] * POCT Glucose (05/22/2023 6:21 AM EDT) Glucose, POC 119 65 - 199 mg/dL [facility] Comment: Supplemental ranges: <140 mg/dL before meals <180 mg/dL all other times of the day Blood 05/22/2023 6:21 AM EDT 05/22/2023 6:21 AM EDT Crystal Mckenna MD POINT OF CARE TEST ORDERABLES Performing Organization Address [facility] Co de Phone Number [facility] [place] [address] * (ABNORMAL) Differential, Automated (05/22/2023 12:35 AM EDT) Neutrophil % 60.7 % [facility] Neutrophil Absolute 4.05 1.70 - 6.10 x10(3)/mc L [facility] Lymph % 16.4 % [facility] Lymphocytes Abs 1.1 0.9 - 3.2 x10(3)/[facility] LAB[facility] Monocyte % 14.0 % [facility] Monocyte Abs 0.9 0.3 - 0.9 x10(3)/[facility] LAB[facility] Eos % 7.4 % [facility] Eosinophils Abs 0.5(H) 0.0 - 0.4 x10(3)/[facility] LAB[facility] Basophil % 0.9 % [facility] Baso Absolute 0.1 0.0 - 0.1 x10(3)/[facility] LABOR[facility]ORY Immature Gran % 0.60 % [facility] Comment: Immature granulocytes(IG's)percentage and absolute count will include metamyelocytes, myelocytes, and promyelocytes. Blood smears from CBCs yielding IG's will be scanned manually for concordance. If this scan disagrees with the automated IG or if promyelocytes are noted, a manual differential will be performed. Immature Gran Absolute 0.04 0.00 - 0.04 x10(3)/[facility] LAB[facility] Blood 05/22/2023 12:3 5 AM EDT 05/22/2023 12:44 AM EDT Narrative Resulting Agency Comment Spec In Lab Nayana Mcginnis APRN HEMATOLOGY ORDERAB LES Performing Organization Address City/State/[facility] Co de Phone Number [facility] [place] [address] * (ABNORMAL) Hemogram (05/22/2023 12:35 AM EDT) White Blood Cell 6.7 4.0 - 9.5 x10(3)/[facility] Red Blood Cell 2.80(L) 4.58 - 5.54 x10(6)/[facility] LAB[facility] Hemoglobin 8.9(L) 13.7 - 16.5 g/dL [facility] Hematocrit 27.2(L) 40.5 - 48.5 % [facility] Mean Cell Volume 97.1(H) 82.9 - 93.1 fL [facility] Mean Cell Hemoglobin 31.8 27.5 - 32.1 pg [facility] Mean Cell Hemoglobin Concentration 32.7 32.0 - 35.7 g/dL [facility] Platelet 190 145 - 357 x10(3)/mc L [facility] RDW Standard Deviation 51.9(H) 36.0 - 45.0 fL [facility] RDW coefficient of variation 14.6(H) 11.4 - 13.8 % [facility] Mean Platelet Volume 10.0 7.6 - 12.9 fL [facility] NRBC% auto 0.0 % [facility] NRBC Absolute 0.000 0.000 - 0.000 x10(3)/mc L [facility] Blood 05/22/2023 12:3 5 AM EDT 05/22/2023 12:44 AM EDT Narrative Resulting Agency Comment Spec In Lab Nayana Mcginnis APRN HEMATOLOGY ORDERAB LES [facility] [place] [place] [address] * POCT Glucose (05/22/2023 12:33 AM EDT) Glucose, POC 108 65 - 199 mg/dL [facility] Comment: Supplemental ranges: <140 mg/dL before meals <180 mg/dL all other times of the day Blood 05/22/2023 12:3 3 AM EDT 05/22/2023 12:33 AM EDT Crystal Mckenna MD POINT OF CARE TEST ORDERABLES [facility] [place] [place] [address] * (ABNORMAL) Basic Metabolic Panel (non-fasting) (05/22/2023 12:31 AM EDT) Glucose 110 65 - 199 mg/dL [facility] Comment:Diabetes: >=200 mg/d L plus symptoms Blood Urea Nitrogen 28(H) 10 - 20 mg/dL [facility] Creatinine 1.20 0.80 - 1.50 mg/dL [facility] Sodium 145 135 - 145 mmol/L [facility] Potassium 4.0 3.5 - 5.0 mmol/L [facility] Comment: Please note: ??Patients with WBC >100,000 may have falsely elevated Potassium levels. ??For accurate Potassium quantification in these patients send serum separator tube (gold top) for subsequent determinations. ??Contact the Clinical Chemistry Laboratory if there are any questions. Chloride 108(H) 98 - 107 mmol/L [facility] Carbon Dioxide 27 22 - 31 mmol/L [facility] Anion Gap 10 5 - 15 mmol/L [facility] Calcium 9.4 8.5 - 10.5 mg/dL [facility] Est Glomerular Filtration Rate 67 >=60 mL/min/1. 73 m?? [facility] Comment: This patient's estimated [...] and symptoms in addition to eGFR. Blood 05/22/2023 12:3 1 AM EDT 05/22/2023 12:44 AM EDT Narrative Resulting Agency Comment Spec In Lab Edna Byrd OPERATIONS INTERN CHEMISTRY ORDERABLE S [facility] [place] [place] [address] * (ABNORMAL) Phosphorus (05/22/2023 12:31 AM EDT) Phosphorus 2.4(L) 2.5 - 4.5 mg/dL [facility] Blood 05/22/2023 12:3 1 AM EDT 05/22/2023 12:44 AM EDT Narrative Resulting Agency Comment Spec In Lab Ednaterra Chaucindy OPERATIONS INTERN CHEMISTRY ORDERABLE S [facility] [place] [place] [address] * Magnesium (05/22/2023 12:31 AM EDT) Magnesium 0.73 0.69 - 1.07 mmol/L [facility] Blood 05/22/2023 12:3 1 AM EDT 05/22/2023 12:44 AM EDT Narrative Resulting Agency Comment Spec In Lab Edna Byrd OPERATIONS INTERN CHEMISTRY ORDERABLE S Performing Organization Address City/[facility]/ZIP Co de Phone Number [facility] [place] [address] * Folate, serum (05/22/2023 12:31 AM EDT) Folate 15.1 4.8 - 24.2 ng/mL [facility] Blood 05/22/2023 12:3 1 AM EDT 05/22/2023 12:44 AM EDT Narrative Resulting Agency Comment Spec In Lab Nayana Mcginnis OPERATIONS INTERN CHEMISTRY ORDERABL ES [facility] [place] [place] [address] * Vitamin B12 (05/22/2023 12:31 AM EDT) Vitamin B12 606 232 - 1,245 pg/mL [facility] Blood 05/22/2023 12:3 1 AM EDT 05/22/2023 12:44 AM EDT Narrative Resulting Agency Comment Spec In Lab Nayana Mcginnis APRN CHEMISTRY ORDERABL ES [facility] [place] [place] [address] * POCT Glucose (05/21/2023 8:22 PM EDT) Glucose, POC 150 65 - 199 mg/dL [facility] Comment: Supplemental ranges: <140 mg/dL before meals <180 mg/dL all other times of the day Blood 05/21/2023 8:22 PM EDT 05/21/2023 8:22 PM EDT Crystal Mckenna MD POINT OF CARE TEST ORDERABLES Performing Organization Address [facility]/ZIP Co de Phone Number [facility] [place] [place] [address] * POCT Glucose (05/21/2023 4:57 PM EDT) Glucose, POC 105 65 - 199 mg/dL [facility] Comment: Supplemental ranges: <140 mg/dL before meals <180 mg/dL all other times of the day Blood 05/21/2023 4:57 PM EDT 05/21/2023 4:57 PM EDT Crystal Mckenna MD POINT OF CARE TEST ORDERABLES Performing Organization Address City/[facility]/ZIP Co de Phone Number [facility] [place] [place] [address] * (ABNORMAL) BLOOD GAS 2 VENOUS (05/21/2023 10:56 AM EDT) pH, Venous 7.38 7.32 - 7.42 [facility] PCO2, Venous 49 41 - 51 mmHg [facility] PO2, Venous 32 25 - 40 mmHg [facility] Bicarbonate, Venous 28.2 mmol/L [facility] Base Excess, Venous 3.1 mmol/L [facility] Hgb Blood Gas 10.6(L) 13.7 - 16.5 g/dL [facility] Oxyhemoglobin, Venous 59.5 % [facility] Carboxyhemoglob in, Venous 0.8 % [facility] Comment: Nonsmokers: 0.5-1.5% COHB Smokers: Variable, but usually less than 10% Toxic: 20-30% COHB Lethal: Greater than 60% COHB Methemoglobin, Venous 0.3 <=1.5 % [facility] Na Whole Blood 145 135 - 145 mmol/L [facility] K Whole Blood 4.0 3.5 - 5.0 mmol/L [facility] Comment: Please note: Patients with WBC >100,000 may have falsely elevated Potassium levels. Contact the Clinical Chemistry Laboratory if there are any questions. ICa Whole Blood 1.26 1.15 - 1.33 mmol/L [facility] Comment: Note: ??Total bilirubin higher than 20 mg/dL may lead to falsely low ionized calcium. CL Whole Blood 106 98 - 107 mmol/L [facility] Gluc Whole Bld 108 65 - 199 mg/dL [facility] Comment:Diabetes: >=200 mg/d L plus symptoms Lactate WB 1.2 0.5 - 2.2 mmol/L [facility] Fraction of Inspired Oxygen, Venous 21 % [facility] Blood Gas Source Venous [facility] Blood 05/21/2023 10:5 6 AM EDT 05/21/2023 10:56 AM EDT Crystal Mckenna MD POINT OF CARE TEST ORDERABLES [facility] [place] [place] [address] * (ABNORMAL) Differential, Automated (05/21/2023 10:27 AM EDT) Neutrophil % 64.2 % [facility] Neutrophil Absolute 4.13 1.70 - 6.10 x10(3)/[facility] LAB[facility] Lymph % 15.0 % [facility] Lymphocytes Abs 1.0 0.9 - 3.2 x10(3)/[facility] Monocyte % 13.3 % [facility] Monocyte Abs 0.9 0.3 - 0.9 x10(3)/[facility] LABOR[facility] Eos % 6.0 % [facility] Eosinophils Abs 0.4 0.0 - 0.4 x10(3)/[facility] LABOR[facility] Basophil % 0.6 % [facility] Baso Absolute 0.0 0.0 - 0.1 x10(3)/[facility] LAB[facility] Immature Gran % 0.90 % [facility] Comment: Immature granulocytes(IG's)percentage and absolute count will include metamyelocytes, myelocytes, and promyelocytes. Blood smears from CBCs yielding IG's will be scanned manually for concordance. If this scan disagrees with the automated IG or if promyelocytes are noted, a manual differential will be performed. Immature Gran Absolute 0.06(H) 0.00 - 0.04 x10(3)/[facility] LAB[facility] Blood 05/21/2023 10:2 7 AM EDT 05/21/2023 10:42 AM EDT Narrative Resulting Agency Comment Spec In Lab Nayana Mcginnis OPERATIONS INTERN HEMATOLOGY ORDERAB LES [facility] [place] [place] [address] * (ABNORMAL) Hemogram (05/21/2023 10:27 AM EDT) [facility] White Blood Cell 6.4 4.0 - 9.5 x10(3)/[facility] LAB[facility] Red Blood Cell 2.81(L) 4.58 - 5.54 x10(6)/mc L [facility] Hemoglobin 8.8(L) 13.7 - 16.5 g/dL [facility] Hematocrit 28.2(L) 40.5 - 48.5 % [facility] Mean Cell Volume 100.4(H) 82.9 - 93.1 fL [facility] Mean Cell Hemoglobin 31.3 27.5 - 32.1 pg [facility] Mean Cell Hemoglobin Concentration 31.2(L) 32.0 - 35.7 g/dL [facility] Platelet 192 145 - 357 x10(3)/mc L [facility] RDW Standard Deviation 55.0(H) 36.0 - 45.0 [facility] LABOR[facility]ORY RDW coefficient of variation 14.9(H) 11.4 - 13.8 % [facility] Mean Platelet Volume 10.5 7.6 - 12.9 [facility] LABORATORY NRBC% auto 0.0 % [facility] NRBC Absolute 0.000 0.000 - 0.000 x10(3)/mc L [facility] Blood 05/21/2023 10:2 7 AM EDT 05/21/2023 10:42 AM EDT Narrative Resulting Agency Comment Spec In Lab Nayana Mcginnis OPERATIONS INTERN HEMATOLOGY ORDERAB LES [facility] [place] [place] [address] * (ABNORMAL) Comprehensive metabolic panel (non-fasting) (05/21/2023 10:27 AM EDT) Glucose 120 65 - 199 mg/dL [facility] Comment:Diabetes: >=200 mg/d L plus symptoms Blood Urea Nitrogen 38(H) 10 - 20 mg/dL [facility] Creatinine 1.81(H) 0.80 - 1.50 mg/dL [facility] Sodium 145 135 - 145 mmol/L [facility] Potassium 4.2 3.5 - 5.0 mmol/L [facility] Comment: result rechecked-DEONNA Please note: ??Patients with WBC >100,000 may have falsely elevated Potassium levels. ??For accurate Potassium quantification in these patients send serum separator tube (gold top) for subsequent determinations. ??Contact the Clinical Chemistry Laboratory if there are any questions. Chloride 107 98 - 107 mmol/L [facility] Carbon Dioxide 29 22 - 31 mmol/L [facility] Anion Gap 9 5 - 15 mmol/L [facility] Calcium 9.9 8.5 - 10.5 mg/dL [facility] Protein, Total 7.6 6.1 - 8.0 g/dL [facility] Albumin 3.9 3.2 - 5.2 g/dL [facility] Aspartate Aminotransferase 17 0 - 39 unit/L [facility] Alanine Aminotransferase 30 0 - 55 unit/L [facility] Alkaline Phosphatase 94 40 - 130 unit/L [facility] Bilirubin, Total 0.4 0.2 - 1.3 mg/dL [facility] Est Glomerular Filtration Rate 41(L) >=60 mL/min/1. 73 m?? [facility] Comment: This patient's estimated [...] and symptoms in addition to eGFR. Blood 05/21/2023 10:2 7 AM EDT 05/21/2023 10:42 AM EDT Narrative Resulting Agency Comment Spec In Lab Nayana Mcginnis APRN CHEMISTRY ORDERABL ES Performing Organization Address City/State/[facility] Co de Phone Number [facility] [place] [place] [address] * Phosphorus (05/21/2023 10:27 AM EDT) Pathologist [facility] Phosphorus 3.1 2.5 - 4.5 mg/dL [facility] Blood 05/21/2023 10:2 7 AM EDT 05/21/2023 10:42 AM EDT Narrative Resulting Agency Comment Spec In Lab Nayana Mcginnis OPERATIONS INTERN CHEMISTRY ORDERABL ES Performing Organization Address [facility] Co de Phone Number [facility] [place] [place] [address] * Magnesium (05/21/2023 10:27 AM EDT) Pathologist [facility] Magnesium 0.87 0.69 - 1.07 mmol/L [facility] Blood 05/21/2023 10:2 7 AM EDT 05/21/2023 10:42 AM EDT Narrative Resulting Agency Comment Spec In Lab Nayana Mcginnis OPERATIONS INTERN CHEMISTRY ORDERABL ES Performing Organization Address [facility] de Phone Number [facility] [place] [place] [address] * (ABNORMAL) BLOOD GAS 2 VENOUS (05/20/2023 6:06 PM EDT) pH, Venous 7.24(Criti connie) 7.32 - 7.42 [facility] Comment:Noted by medical instrument technician. PCO2, Venous 61(Critica l) 41 - 51 mmHg [facility] Comment:Noted by medical instrument technician. PO2, Venous 48(H) 25 - 40 mmHg [facility] Bicarbonate, Venous 25.3 mmol/L [facility] Base Excess, Venous -2.1 mmol/L [facility] Hgb Blood Gas 10.1(L) 13.7 - 16.5 g/dL [facility] Oxyhemoglobin, Venous 81.2 % [facility] Carboxyhemoglob in, Venous 0.9 % [facility] Comment: Nonsmokers: 0.5-1.5% COHB Smokers: Variable, but usually less than 10% Toxic: 20-30% COHB Lethal: Greater than 60% COHB Methemoglobin, Venous 0.3 <=1.5 % [facility] Na Whole Blood 145 135 - 145 mmol/L [facility] K Whole Blood 5.1(H) 3.5 - 5.0 mmol/L [facility] Comment: Please note: Patients with WBC >100,000 may have falsely elevated Potassium levels. Contact the Clinical Chemistry Laboratory if there are any questions. ICa Whole Blood 1.29 1.15 - 1.33 mmol/L [facility] Comment: Note: ??Total bilirubin higher than 20 mg/dL may lead to falsely low ionized calcium. CL Whole Blood 109(H) 98 - 107 mmol/L [facility] Gluc Whole Bld 101 65 - 199 mg/dL [facility] Comment:Diabetes: >=200 mg/d L plus symptoms Lactate WB 1.0 0.5 - 2.2 mmol/L [facility] Fraction of Inspired Oxygen, Venous 21 % [facility] Blood Gas Source Venous [facility] Blood 05/20/2023 6:06 PM EDT 05/20/2023 6:06 PM EDT Crystal Mckenna MD POINT OF CARE TEST ORDERABLES [facility] [place] [place] [address] * (ABNORMAL) Basic Metabolic Panel (non-fasting) (05/20/2023 6:00 PM EDT) Glucose 110 65 - 199 mg/dL [facility] Comment:Diabetes: >=200 mg/d L plus symptoms Blood Urea Nitrogen 39(H) 10 - 20 mg/dL [facility] Creatinine 2.55(H) 0.80 - 1.50 mg/dL [facility] Sodium 149(H) 135 - 145 mmol/L [facility] Potassium 5.4(H) 3.5 - 5.0 mmol/L [facility] Comment: Please note: ??Patients with WBC >100,000 may have falsely elevated Potassium levels. ??For accurate Potassium quantification in these patients send serum separator tube (gold top) for subsequent determinations. ??Contact the Clinical Chemistry Laboratory if there are any questions. Chloride 111(H) 98 - 107 mmol/L [facility] Carbon Dioxide 27 22 - 31 mmol/L [facility] Anion Gap 11 5 - 15 mmol/L [facility] Calcium 9.7 8.5 - 10.5 mg/dL [facility] Comment:result rechecked-im Est Glomerular Filtration Rate 27(L) >=60 mL/min/1. 73 m?? [facility] Comment: This patient's estimated [...] and symptoms in addition to eGFR. Blood 05/20/2023 6:00 PM EDT 05/20/2023 6:36 PM EDT Narrative Resulting Agency Comment Spec In Lab Crystal Mckenna MD CHEMISTRY ORDERABL ES [facility] [place] [place] [address] * POCT Glucose (05/20/2023 4:25 PM EDT) Glucose, POC 107 65 - 199 mg/dL [facility] Comment: Supplemental ranges: <140 mg/dL before meals <180 mg/dL all other times of the day Blood 05/20/2023 4:25 PM EDT 05/20/2023 4:25 PM EDT Crystal Mckenna MD POINT OF CARE TEST ORDERABLES Performing Organization Address City/[facility]/ZIP Co de Phone Number [facility] [place] [place] [address] * Electrolytes, urine, random (05/20/2023 1:37 PM EDT) Sodium, Urine 40 mmol/L [facility] Potassium, Urine 61 mmol/L [facility] Chloride, Urine 20 mmol/L [facility] Urine 05/20/2023 1:37 PM EDT 05/20/2023 1:55 PM EDT Narrative Resulting Agency Comment Spec In Lab Crystal Mckenna MD URINE ORDERABLES Performing Organization Address [facility] Co de Phone Number [facility] [place] [address] * Osmolality, urine, random (05/20/2023 1:37 PM EDT) Osmolality, Urine 351 50 - 1,200 mOsm/kg [facility] Urine 05/20/2023 1:37 PM EDT 05/20/2023 1:55 PM EDT Narrative Resulting Agency Comment Spec In Lab Crystal Mckenna MD URINE ORDERABLES Performing Organization Address [facility] Co de Phone Number [facility] [place] [address] * (ABNORMAL) BLOOD GAS 2 VENOUS (05/20/2023 1:10 PM EDT) pH, Venous 7.23(Criti connie) 7.32 - 7.42 [facility] Comment:Noted by medical instrument technician. PCO2, Venous 55(H) 41 - 51 mmHg [facility] PO2, Venous 38 25 - 40 mmHg [facility] Bicarbonate, Venous 22.5 mmol/L [facility] Base Excess, Venous -5.1 mmol/L [facility] Hgb Blood Gas 9.4(L) 13.7 - 16.5 g/dL [facility] Oxyhemoglobin, Venous 70.6 % [facility] Carboxyhemoglob in, Venous 0.2 % [facility] Comment: Nonsmokers: 0.5-1.5% COHB Smokers: Variable, but usually less than 10% Toxic: 20-30% COHB Lethal: Greater than 60% COHB Methemoglobin, Venous 0.1 <=1.5 % [facility] Na Whole Blood 145 135 - 145 mmol/L [facility] K Whole Blood 4.9 3.5 - 5.0 mmol/L [facility] Comment: Please note: Patients with WBC >100,000 may have falsely elevated Potassium levels. Contact the Clinical Chemistry Laboratory if there are any questions. ICa Whole Blood 1.23 1.15 - 1.33 mmol/L [facility] Comment: Note: ??Total bilirubin higher than 20 mg/dL may lead to falsely low ionized calcium. CL Whole Blood 111(H) 98 - 107 mmol/L [facility] Gluc Whole Bld 117 65 - 199 mg/dL [facility] Comment:Diabetes: >=200 mg/d L plus symptoms Lactate WB 1.0 0.5 - 2.2 mmol/L [facility] Fraction of Inspired Oxygen, Venous 40 % [facility] Blood Gas Source Venous [facility] Blood 05/20/2023 1:10 PM EDT 05/20/2023 1:10 PM EDT Crystal Mckenna MD POINT [place] [address] * XR Chest One View (05/20/2023 12:34 PM EDT) Anatomical Region Laterality Modality Chest N/A Digital Radiogra phy Impressions 05/20/2023 5:43 PM EDT 1. ??Ill-defined left retrocardiac opacity could represent atelectasis, aspiration, or developing infection. 2. ??Pulmonary vascular congestion with an enlarged cardiac silhouette. Thank you for letting us participate in the care of this patient. ??If you are a health care provider and have any questions regarding this report, please contact the number below. ??For patients who have questions please contact the health manager managed care that requested your imaging first. ? Electronically signed by: Aileen Ireland MD, [facility] ([phone]), at 05/20/2023 5:43 PM Narrative 05/20/2023 5:43 PM EDT EXAMINATION: XR CHEST ONE VIEW CLINICAL HISTORY: Desatting, obtunded, concern for developing PNA (as entered by ordering provider in the order requisition) TECHNIQUE: Portable AP view of the chest. COMPARISON: CT of the chest May 16, 2023. ??Chest radiograph 04/26/2023. FINDINGS: There is an enteric tube courses below the inferior margin of the study. There is a right arm PICC line with its tip in a similar position in the region of the superior cavoatrial junction. There are low lung volumes accentuate the enlarged cardiac silhouette. Ill-defined left retrocardiac opacity. ??Indistinctness of the coronary vasculature. ??No pleural effusion. ??No pneumothorax. Procedure Note Aileen Ireland MD - 05/20/2023 EXAMINATION: XR CHEST ONE VIEW CLINICAL HISTORY: Desatting, obtunded, concern for developing PNA (asentered by ordering provider in the order requisition) TECHNIQUE: Portable AP view of the chest. COMPARISON: CT of the chest May 16, 2023. Chest radiograph 04/26/2023. FINDINGS: There is an enteric tube courses below the inferior margin of the study. There is a right arm PICC line with its tip in a similar position in theregion of the superior cavoatrial junction. There are low lung volumes accentuate the enlarged cardiac silhouette. Ill-defined left retrocardiac opacity. Indistinctness of the coronary vasculature. No pleural effusion. No pneumothorax. IMPRESSION 1. Ill-defined left retrocardiac opacity could represent atelectasis, aspiration, or developing infection. 2. Pulmonary vascular congestion with an enlarged cardiac silhouette. Thank you for letting us participate in the care of this patient. If youare a health care provider and have any questions regarding this report,please contact the number below. For patients who have questions please contactthe health manager managed care that requested your imaging first. Electronically signed by: Aileen Ireland MD, [facility]([phone]), at 05/20/2023 5:43 PM Crystal Mckenna MD IMG DX ORDERABLES * (ABNORMAL) BLOOD GAS 2 VENOUS (05/20/2023 11:43 AM EDT) pH, Venous 7.21(Criti connie) 7.32 - 7.42 [facility] Comment:Noted by medical instrument technician. PCO2, Venous 60(H) 41 - 51 mmHg [facility] PO2, Venous 39 25 - 40 mmHg [facility] Bicarbonate, Venous 23.4 mmol/L [facility] Base Excess, Venous -4.5 mmol/L [facility] Hgb Blood Gas 9.9(L) 13.7 - 16.5 g/dL [facility] Oxyhemoglobin, Venous 71.6 % [facility] Carboxyhemoglob in, Venous 0.7 % [facility] Comment: Nonsmokers: 0.5-1.5% COHB Smokers: Variable, but usually less than 10% Toxic: 20-30% COHB Lethal: Greater than 60% COHB Methemoglobin, Venous 0.2 <=1.5 % [facility] Na Whole Blood 144 135 - 145 mmol/L [facility] K Whole Blood 4.9 3.5 - 5.0 mmol/L [facility] Comment: Please note: Patients with WBC >100,000 may have falsely elevated Potassium levels. Contact the Clinical Chemistry Laboratory if there are any questions. ICa Whole Blood 1.26 1.15 - 1.33 mmol/L [facility] Comment: Note: ??Total bilirubin higher than 20 mg/dL may lead to falsely low ionized calcium. CL Whole Blood 109(H) 98 - 107 mmol/L [facility] Gluc Whole Bld 141 65 - 199 mg/dL [facility] Comment:Diabetes: >=200 mg/d L plus symptoms Lactate WB 1.0 0.5 - 2.2 mmol/L [facility] Flow, Jeremiah 4.0 LPM [facility] Blood Gas Source Venous [facility] Blood 05/20/2023 11:4 3 AM EDT 05/20/2023 11:43 AM EDT Crystal Mckenna MD POINT OF CARE TEST ORDERABLES [facility] [place] [address] * (ABNORMAL) Basic Metabolic Panel (non-fasting) (05/20/2023 11:36 AM EDT) Glucose 159 65 - 199 mg/dL [facility] Comment:Diabetes: >=200 mg/d L plus symptoms Blood Urea Nitrogen 36(H) 10 - 20 mg/dL [facility] Creatinine 2.55(H) 0.80 - 1.50 mg/dL [facility] Sodium 145 135 - 145 mmol/L [facility] Potassium 4.9 3.5 - 5.0 mmol/L [facility] Comment: result rechecked-EWR Please note: ??Patients with WBC >100,000 may have falsely elevated Potassium levels. ??For accurate Potassium quantification in these patients send serum separator tube (gold top) for subsequent determinations. ??Contact the Clinical Chemistry Laboratory if there are any questions. Chloride 113(H) 98 - 107 mmol/L [facility] Carbon Dioxide 27 22 - 31 mmol/L [facility] Anion Gap 5 5 - 15 mmol/L [facility] Calcium 8.7 8.5 - 10.5 mg/dL [facility] Comment:result rechecked-EWR Est Glomerular Filtration Rate 27(L) >=60 mL/min/1. 73 m?? [facility] Comment: This patient's estimated [...] and symptoms in addition to eGFR. Blood 05/20/2023 11:3 6 AM EDT 05/20/2023 11:48 AM EDT Narrative Resulting Agency Comment Spec In Lab Crystal Mckenna MD CHEMISTRY ORDERABL ES [facility] [place] [place] [address] * POCT Glucose (05/20/2023 9:12 AM EDT) Glucose, POC 114 65 - 199 mg/dL [facility] Comment: Supplemental ranges: <140 mg/dL before meals <180 mg/dL all other times of the day Blood 05/20/2023 9:12 AM EDT 05/20/2023 9:12 AM EDT Crystal Mckenna MD POINT OF CARE TEST ORDERABLES [facility] [place] [place] [address] * CT Head wo Contrast (Generic) (05/20/2023 8:59 AM EDT) Anatomical Region Laterality Modality Head Computed Tomogra phy Impressions 05/20/2023 10:31 AM EDT 1. ??Interval removal of ventricular catheter. Reduced hyperattenuating blood products layering in the occipital horns No change in ventricular caliber. 2. 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 I have personally reviewed the image(s) and the resident's interpretation and agree with the findings, Michelle Munoz at 05/20/2023 10:31 AM Thank you for letting us participate in the care of this patient. ??If you are a health care provider and have any questions regarding this report, please contact the number below. ??For patients who have questions please contact the health manager managed care that requested your imaging first. ? Narrative 05/20/2023 10:31 AM EDT EXAMINATION: CT HEAD WO CONTRAST (GENERIC) CLINICAL HISTORY: newly obtunded, unresponsive / not following commands TECHNIQUE: CT head performed without intravenous contrast administration. COMPARISON: CT head 05/02/2023. FINDINGS: Interval removal of right frontal approach ventricular catheter. Small volume hyperdense intraventricular hemorrhage layering in the occipital horns bilaterally, reduced compared to the prior exam. Similar caliber of the ventricles. Evolving hypodensity and decreased mass effect of previously noted right anterior cerebellar hemorrhage. No extra-axial collection. Unchanged prominence of the ventricles and sulci in keeping with parenchymal volume loss. The basal cisterns remain patent. The orbits are normal. Partial mastoid effusions in the setting of intubation. Additional fluid within the paranasal sinuses. No acute osseous abnormalities. Procedure Note Michelle Munoz MD - 05/20/2023 EXAMINATION: CT HEAD WO CONTRAST (GENERIC) CLINICAL HISTORY: newly obtunded, unresponsive / not following commands TECHNIQUE: CT head performed without intravenous contrast administration. COMPARISON: CT head 05/02/2023. FINDINGS: Interval removal of right frontal approach ventricular catheter. Small volume hyperdense intraventricular hemorrhage layering in theoccipital horns bilaterally, reduced compared to the prior exam. Similar caliber ofthe ventricles. Evolving hypodensity and decreased mass effect of previously noted right anterior cerebellar hemorrhage. No extra-axial collection. Unchanged prominence of the ventricles and sulci in keeping withparenchymal volume loss. The basal cisterns remain patent. The orbits are normal. Partial mastoid effusions in the setting ofintubation. Additional fluid within the paranasal sinuses. No acute osseous abnormalities. IMPRESSION 1. Interval removal of ventricular catheter. Reduced hyperattenuatingblood products layering in the occipital horns No change in ventricularcaliber. 2. Evolution of recent right anterior cerebellar hemorrhage withoutevidence for new bleeding at this location. I have personally reviewed the image(s) and the resident's interpretationand agree with the findings, Michelle Munoz at 05/20/2023 10:31 AM Thank you for letting us participate in the care of this patient. If youare a health care provider and have any questions regarding this report,please contact the number below. For patients who have questions please contactthe health manager managed care that requested your imaging first. Crystal Mckenna MD IMG CT ORDERABLES * (ABNORMAL) Potassium (05/20/2023 8:40 AM EDT) [facility] Potassium 6.2(Criti connie) 3.5 - 5.0 mmol/L [facility] Comment: Called by: IRINA, Read back by: DEDE PRETTY, Date/Time:05/20/23 09:27. Please note: ??Patients with WBC >100,000 may have falsely elevated Potassium levels. ??For accurate Potassium quantification in these patients send serum separator tube (gold top) for subsequent determinations. ??Contact the Clinical Chemistry Laboratory if there are any questions. Blood 05/20/2023 8:40 AM EDT 05/20/2023 8:48 AM EDT Narrative Resulting Agency Comment Spec In Lab Crystal Mckenna MD CHEMISTRY ORDERABL ES Performing Organization Address [facility] Co de Phone Number [facility] [place] [place] [address] * EKG 12 Lead (05/20/2023 8:27 AM EDT) [facility] Ventricular rate 76 BPM MUSE SYSTEM Atrial Rate 76 BPM MUSE SYSTEM P-R Interval 204 ms MUSE SYSTEM QRS Duration 166 ms MUSE SYSTEM Q-T Interval 422 ms MUSE SYSTEM QTC Calculated (Bezet) 474 ms MUSE SYSTEM Calculated P Phoenix 33 degrees MUSE SYSTEM Calculated R Phoenix -25 degrees MUSE SYSTEM Calculated T Phoenix 19 degrees MUSE SYSTEM INTERPRETATION Normal sinus rhythm Right bundle branch block Abnormal ECG When compared with ECG of 19-MAY-2023 05:28, Normal ECG Confirmed by MD LAN, MARICARMEN ([id number]) on 05/21/2023 12:45:05 PM MUSE SYSTEM 05/20/2023 8:27 AM EDT 05/21/2023 12:45 PM EDT Crystal Mckenna MD ECG ORDERABLES Performing Organization Address [facility]/ZIP Co de Phone Number MUSE SYSTEM * Scan, Peripheral Blood (05/20/2023 3:42 AM EDT) Plat estimate Normal [facility] RBC Morphology Normal [facility] Blood 05/20/2023 3:42 AM EDT 05/20/2023 4:00 AM EDT Narrative Resulting Agency Comment Spec In Lab Bharathi Ashford DO HEMATOLOGY ORDERABLE S [facility] [place] [place] [address] * Differential, Automated (05/20/2023 3:42 AM EDT) Neutrophil % 64.2 % [facility] Neutrophil Absolute 4.29 1.70 - 6.10 x10(3)/[facility] Lymph % 15.4 % [facility] Lymphocytes Abs 1.0 0.9 - 3.2 x10(3)/[facility] Monocyte % 13.6 % [facility] Monocyte Abs 0.9 0.3 - 0.9 x10(3)/[facility] Eos % 6.1 % [facility] Eosinophils Abs 0.4 0.0 - 0.4 x10(3)/[facility] Basophil % 0.3 % [facility] Baso Absolute 0.0 0.0 - 0.1 x10(3)/[facility] Immature Gran % 0.40 % [facility] Comment: Immature granulocytes(IG's)percentage and absolute count will include metamyelocytes, myelocytes, and promyelocytes. Blood smears from CBCs yielding IG's will be scanned manually for concordance. If this scan disagrees with the automated IG or if promyelocytes are noted, a manual differential will be performed. Immature Gran Absolute 0.03 0.00 - 0.04 x10(3)/[facility] Blood 05/20/2023 3:42 AM EDT 05/20/2023 4:00 AM EDT Narrative Resulting Agency Comment Spec In Lab Bharathi Lozano Makeda DO HEMATOLOGY ORDERABLE S [facility] [place] [place] [address] * (ABNORMAL) Hemogram (05/20/2023 3:42 AM EDT) White Blood Cell 6.7 4.0 - 9.5 x10(3)/mc L [facility] Red Blood Cell 2.91(L) 4.58 - 5.54 x10(6)/mc L [facility] Hemoglobin 9.1(L) 13.7 - 16.5 g/dL [facility] Hematocrit 29.8(L) 40.5 - 48.5 % [facility] Mean Cell Volume 102.4(H) 82.9 - 93.1 fL [facility] Mean Cell Hemoglobin 31.3 27.5 - 32.1 pg [facility] Mean Cell Hemoglobin Concentration 30.5(L) 32.0 - 35.7 g/dL [facility] Platelet 209 145 - 357 x10(3)/ L [facility] RDW Standard Deviation 58.2(H) 36.0 - 45.0 [facility] RDW coefficient of variation 15.4(H) 11.4 - 13.8 % [facility] Mean Platelet Volume 11.1 7.6 - 12.9 [facility] NRBC% auto 0.0 % [facility] NRBC Absolute 0.000 0.000 - 0.000 x10(3)/ L [facility] Blood 05/20/2023 3:42 AM EDT 05/20/2023 4:00 AM EDT Narrative Resulting Agency Comment Spec In Lab Bharathi Ashford DO HEMATOLOGY ORDERABLE S [facility] [place] [place] [address] * (ABNORMAL) Basic Metabolic Panel (non-fasting) (05/20/2023 3:42 AM EDT) Glucose 112 65 - 199 mg/dL [facility] Comment:Diabetes: >=200 mg/d L plus symptoms Blood Urea Nitrogen 34(H) 10 - 20 mg/dL [facility] Creatinine 1.99(H) 0.80 - 1.50 mg/dL [facility] Sodium 143 135 - 145 mmol/L [facility] Potassium 5.8(H) 3.5 - 5.0 mmol/L [facility] Comment: result rechecked-bz Please note: ??Patients with WBC >100,000 may have falsely elevated Potassium levels. ??For accurate Potassium quantification in these patients send serum separator tube (gold top) for subsequent determinations. ??Contact the Clinical Chemistry Laboratory if there are any questions. Chloride 107 98 - 107 mmol/L [facility] Carbon Dioxide 29 22 - 31 mmol/L [facility] Anion Gap 7 5 - 15 mmol/L [facility] Calcium 9.8 8.5 - 10.5 mg/dL [facility] Est Glomerular Filtration Rate 37(L) >=60 mL/min/1. 73 m?? [facility] Comment: This patient's estimated [...] and symptoms in addition to eGFR. Blood 05/20/2023 3:42 AM EDT 05/20/2023 4:00 AM EDT Narrative Resulting Agency Comment Spec In Lab Georges Jacob MD CHEMISTRY ORDERABLES [facility] [place] [place] [address] * (ABNORMAL) Phosphorus (05/20/2023 3:42 AM EDT) Phosphorus 5.7(H) 2.5 - 4.5 mg/dL [facility] Blood 05/20/2023 3:42 AM EDT 05/20/2023 4:00 AM EDT Narrative Resulting Agency Comment Spec In Lab Georges Jacob MD CHEMISTRY ORDERABLES Performing Organization Address [facility] Co de Phone Number [facility] [place] [place] [address] * Magnesium (05/20/2023 3:42 AM EDT) Magnesium 1.06 0.69 - 1.07 mmol/L [facility] Blood 05/20/2023 3:42 AM EDT 05/20/2023 4:00 AM EDT Narrative Resulting Agency Comment Spec In Lab Georges Jacob MD CHEMISTRY ORDERABLES Performing Organization Address [facility] Co de Phone Number [facility] [place] [place] [address] * POCT Glucose (05/20/2023 3:41 AM EDT) Glucose, POC 122 65 - 199 mg/dL [facility] Comment: Supplemental ranges: <140 mg/dL before meals <180 mg/dL all other times of the day Blood 05/20/2023 3:41 AM EDT 05/20/2023 3:41 AM EDT Crystal Mckenna MD POINT OF CARE TEST ORDERABLES Performing Organization Address City/[facility]/ZIP Co de Phone Number [facility] [place] [place] [address] * POCT Glucose (05/20/2023 12:05 AM EDT) Glucose, POC 126 65 - 199 mg/dL [facility] Comment: Supplemental ranges: <140 mg/dL before meals <180 mg/dL all other times of the day Blood 05/20/2023 12:0 5 AM EDT 05/20/2023 12:05 AM EDT Crystal Mckenna MD POINT OF CARE TEST ORDERABLES [facility] [place] [place] [address] * POCT Glucose (05/19/2023 8:13 PM EDT) Glucose, POC 124 65 - 199 mg/dL [facility] Comment: Supplemental ranges: <140 mg/dL before meals <180 mg/dL all other times of the day Blood 05/19/2023 8:13 PM EDT 05/19/2023 8:13 PM EDT Crystal Mckenna MD POINT OF CARE TEST ORDERABLES [facility] [place] [place] [address] * POCT Glucose (05/19/2023 4:35 PM EDT) Glucose, POC 122 65 - 199 mg/dL [facility] Comment: Supplemental ranges: <140 mg/dL before meals <180 mg/dL all other times of the day Blood 05/19/2023 4:35 PM EDT 05/19/2023 4:35 PM EDT Crystal Mckenna MD POINT OF CARE TEST ORDERABLES [facility] [place] [place] [address] * POCT Glucose (05/19/2023 11:18 AM EDT) Glucose, POC 112 65 - 199 mg/dL [facility] Comment: Supplemental ranges: <140 mg/dL before meals <180 mg/dL all other times of the day Blood 05/19/2023 11:1 8 AM EDT 05/19/2023 11:18 AM EDT Crystal Mckenna MD POINT OF CARE TEST ORDERABLES Performing Organization Address [facility] Co de Phone Number [facility] [place] [place] [address] * POCT Glucose (05/19/2023 7:41 AM EDT) Glucose, POC 110 65 - 199 mg/dL [facility] Comment: Supplemental ranges: <140 mg/dL before meals <180 mg/dL all other times of the day Blood 05/19/2023 7:41 AM EDT 05/19/2023 7:41 AM EDT Georges Jacob MD POINT OF CARE TEST O RDERABLES Performing Organization Address [facility] Co de Phone Number [facility] [place] [place] [address] * EKG 12 Lead (05/19/2023 5:28 AM EDT) Ventricular rate 72 BPM MUSE SYSTEM Atrial Rate 72 BPM MUSE SYSTEM P-R Interval 214 ms MUSE SYSTEM QRS Duration 166 ms MUSE SYSTEM Q-T Interval 466 ms MUSE SYSTEM QTC Calculated (Bezet) 510 ms MUSE SYSTEM Calculated P Phoenix 39 degrees MUSE SYSTEM Calculated R Phoenix -37 degrees MUSE SYSTEM Calculated T Phoenix 35 degrees MUSE SYSTEM INTERPRETATION Sinus rhythm with 1st degree A-V block Left axis deviation Right bundle branch block Septal infarct , age undetermined Abnormal ECG When compared with ECG of 18-MAY-2023 10:20, (unconfirmed) Septal infarct is now Present Confirmed by MD Boo, [place] ([id number]) on 05/22/2023 1:31:39 PM MUSE SYSTEM 05/19/2023 5:28 AM EDT 05/22/2023 1:31 PM EDT Unknown ECG ORDERABLES MUSE SYSTEM * POCT Glucose (05/19/2023 3:04 AM EDT) Glucose, POC 109 65 - 199 mg/dL [facility] Comment: Supplemental ranges: <140 mg/dL before meals <180 mg/dL all other times of the day Blood 05/19/2023 3:04 AM EDT 05/19/2023 3:04 AM EDT Georges Jacob MD POINT OF CARE TEST O RDERABLES Performing Organization Address [facility] Co de Phone Number [facility] [place] [place] [address] * (ABNORMAL) Phosphorus (05/19/2023 12:33 AM EDT) Phosphorus 4.6(H) 2.5 - 4.5 mg/dL [facility] Blood 05/19/2023 12:3 3 AM EDT 05/19/2023 12:40 AM EDT Narrative Resulting Agency Comment Spec In Lab Georges Jacob MD CHEMISTRY ORDERABLES Performing Organization Address [facility] Co de Phone Number [facility] [place] [place] [address] * Magnesium (05/19/2023 12:33 AM EDT) Magnesium 1.02 0.69 - 1.07 mmol/L [facility] Blood 05/19/2023 12:3 3 AM EDT 05/19/2023 12:40 AM EDT Narrative Resulting Agency Comment Spec In Lab Georges Jacob MD CHEMISTRY ORDERABLES Performing Organization Address City/[facility] Co de Phone Number [facility] [place] [place] [address] * (ABNORMAL) Basic Metabolic Panel (non-fasting) (05/19/2023 12:33 AM EDT) Glucose 105 65 - 199 mg/dL [facility] Comment:Diabetes: >=200 mg/d L plus symptoms Blood Urea Nitrogen 33(H) 10 - 20 mg/dL [facility] Creatinine 1.82(H) 0.80 - 1.50 mg/dL [facility] Sodium 142 135 - 145 mmol/L [facility] Potassium 4.5 3.5 - 5.0 mmol/L [facility] Comment: Please note: ??Patients with WBC >100,000 may have falsely elevated Potassium levels. ??For accurate Potassium quantification in these patients send serum separator tube (gold top) for subsequent determinations. ??Contact the Clinical Chemistry Laboratory if there are any questions. Chloride 103 98 - 107 mmol/L [facility] Carbon Dioxide 28 22 - 31 mmol/L [facility] Anion Gap 11 5 - 15 mmol/L [facility] Calcium 9.4 8.5 - 10.5 mg/dL [facility] Est Glomerular Filtration Rate 41(L) >=60 mL/min/1. 73 m?? [facility] Comment: This patient's estimated [...] and symptoms in addition to eGFR. Blood 05/19/2023 12:3 3 AM EDT 05/19/2023 12:40 AM EDT Narrative Resulting Agency Comment Spec In Lab Georges Jacob MD CHEMISTRY ORDERABLES [facility] [place] [place] [address] * POCT Glucose (05/19/2023 12:23 AM EDT) Glucose, POC 109 65 - 199 mg/dL [facility] Comment: Supplemental ranges: <140 mg/dL before meals <180 mg/dL all other times of the day Blood 05/19/2023 12:2 3 AM EDT 05/19/2023 12:23 AM EDT Georges Jacob MD POINT OF CARE TEST O RDERATAYLOR Performing Organization Address [facility] Co de Phone Number [facility] [place] [place] [address] * POCT Glucose (05/18/2023 7:34 PM EDT) Glucose, POC 116 65 - 199 mg/dL [facility] Comment: Supplemental ranges: <140 mg/dL before meals <180 mg/dL all other times of the day Blood 05/18/2023 7:34 PM EDT 05/18/2023 7:34 PM EDT Georges Jacob MD POINT OF CARE TEST O RDERATAYLOR Performing Organization Address [facility] Co de Phone Number [facility] [place] [address] * POCT Glucose (05/18/2023 4:03 PM EDT) Glucose, POC 161 65 - 199 mg/dL [facility] Comment: Supplemental ranges: <140 mg/dL before meals <180 mg/dL all other times of the day Blood 05/18/2023 4:03 PM EDT 05/18/2023 4:03 PM EDT Georges Jacob MD POINT OF CARE TEST O RDERATAYLOR Performing Organization Address City/[facility]/ZIP Co de Phone Number [facility] [place] [place] [address] * POCT Glucose (05/18/2023 11:49 AM EDT) Glucose, POC 132 65 - 199 mg/dL [facility] Comment: Supplemental ranges: <140 mg/dL before meals <180 mg/dL all other times of the day Blood 05/18/2023 11:4 9 AM EDT 05/18/2023 11:49 AM EDT Georges Jacob MD POINT OF CARE TEST O RDERABLES Performing Organization Address City/[facility]/ZIP Co de Phone Number [facility] [place] [place] [address] * POCT Glucose (05/18/2023 8:03 AM EDT) Glucose, POC 112 65 - 199 mg/dL [facility] Comment: Supplemental ranges: <140 mg/dL before meals <180 mg/dL all other times of the day Blood 05/18/2023 8:03 AM EDT 05/18/2023 8:03 AM EDT Georges Jacob MD POINT OF CARE TEST O RDERABLES Performing Organization Address City/[facility]/ZIP Co de Phone Number [facility] [place] [place] [address] * POCT Glucose (05/18/2023 4:29 AM EDT) Glucose, POC 114 65 - 199 mg/dL [facility] Comment: Supplemental ranges: <140 mg/dL before meals <180 mg/dL all other times of the day Blood 05/18/2023 4:29 AM EDT 05/18/2023 4:29 AM EDT Georges Jacob MD POINT OF CARE TEST [place] [address] * (ABNORMAL) Differential, Automated (05/18/2023 12:37 AM EDT) Pathologist [facility] Neutrophil % 59.5 % [facility] Neutrophil Absolute 4.19 1.70 - 6.10 x10(3)/ L [facility] Lymph % 14.2 % [facility] Lymphocytes Abs 1.0 0.9 - 3.2 x10(3)/ L [facility] Monocyte % 15.6 % [facility] Monocyte Abs 1.1(H) 0.3 - 0.9 x10(3)/ L [facility] Eos % 9.9 % [facility] Eosinophils Abs 0.7(H) 0.0 - 0.4 x10(3)/[facility] Basophil % 0.4 % [facility] Baso Absolute 0.0 0.0 - 0.1 x10(3)/ L [facility] Immature Gran % 0.40 % [facility] Comment: Immature granulocytes(IG's)percentage and absolute count will include metamyelocytes, myelocytes, and promyelocytes. Blood smears from CBCs yielding IG's will be scanned manually for concordance. If this scan disagrees with the automated IG or if promyelocytes are noted, a manual differential will be performed. Immature Gran Absolute 0.03 0.00 - 0.04 x10(3)/ L [facility] Blood 05/18/2023 12:3 7 AM EDT 05/18/2023 12:43 AM EDT Narrative Resulting Agency Comment Spec In Lab Annmarie TAFOYA HEMATOLOGY ORDERABLE S [facility] [place] [place] [address] * (ABNORMAL) Hemogram (05/18/2023 12:37 AM EDT) [facility] White Blood Cell 7.0 4.0 - 9.5 x10(3)/mc L [facility] Red Blood Cell 2.97(L) 4.58 - 5.54 x10(6)/mc L [facility] Hemoglobin 9.3(L) 13.7 - 16.5 g/dL [facility] Hematocrit 28.9(L) 40.5 - 48.5 % [facility] Mean Cell Volume 97.3(H) 82.9 - 93.1 fL [facility] Mean Cell Hemoglobin 31.3 27.5 - 32.1 pg [facility] Mean Cell Hemoglobin Concentration 32.2 32.0 - 35.7 g/dL [facility] Platelet 209 145 - 357 x10(3)/mc L [facility] RDW Standard Deviation 51.4(H) 36.0 - 45.0 [facility] RDW coefficient of variation 14.4(H) 11.4 - 13.8 % [facility] Mean Platelet Volume 10.9 7.6 - 12.9 [facility] NRBC% auto 0.0 % [facility] NRBC Absolute 0.000 0.000 - 0.000 x10(3)/ L [facility] Blood 05/18/2023 12:3 7 AM EDT 05/18/2023 12:43 AM EDT Narrative Resulting Agency Comment Spec In Lab Annmarie TAFOYA HEMATOLOGY ORDERABLE S [facility] [place] [place] [address] * (ABNORMAL) Basic Metabolic Panel (non-fasting) (05/18/2023 12:37 AM EDT) Pathologist [facility] Glucose 108 65 - 199 mg/dL [facility] Comment:Diabetes: >=200 mg/d L plus symptoms Blood Urea Nitrogen 29(H) 10 - 20 mg/dL [facility] Creatinine 1.61(H) 0.80 - 1.50 mg/dL [facility] Sodium 137 135 - 145 mmol/L [facility] Potassium 4.1 3.5 - 5.0 mmol/L [facility] Comment: Please note: ??Patients with WBC >100,000 may have falsely elevated Potassium levels. ??For accurate Potassium quantification in these patients send serum separator tube (gold top) for subsequent determinations. ??Contact the Clinical Chemistry Laboratory if there are any questions. Chloride 98 98 - 107 mmol/L [facility] Carbon Dioxide 30 22 - 31 mmol/L [facility] Anion Gap 9 5 - 15 mmol/L [facility] Calcium 9.6 8.5 - 10.5 mg/dL [facility] Est Glomerular Filtration Rate 47(L) >=60 mL/min/1. 73 m?? [facility] Comment: This patient's estimated [...] and symptoms in addition to eGFR. Blood 05/18/2023 12:3 7 AM EDT 05/18/2023 12:43 AM EDT Narrative Resulting Agency Comment Spec In Lab Georges Jacob MD CHEMISTRY ORDERABLES [facility] [place] [address] * Phosphorus (05/18/2023 12:37 AM EDT) Phosphorus 4.4 2.5 - 4.5 mg/dL [facility] Blood 05/18/2023 12:3 7 AM EDT 05/18/2023 12:43 AM EDT Narrative Resulting Agency Comment Spec In Lab Georges Jacob MD CHEMISTRY ORDERABLES Performing Organization Address [facility] Co de Phone Number [facility] [place] [place] [address] * Magnesium (05/18/2023 12:37 AM EDT) Magnesium 0.73 0.69 - 1.07 mmol/L [facility] Blood 05/18/2023 12:3 7 AM EDT 05/18/2023 12:43 AM EDT Narrative Resulting Agency Comment Spec In Lab Georges Jacob MD CHEMISTRY ORDERABLES Performing Organization Address [facility] de Phone Number [facility] [place] [place] [address] * POCT Glucose (05/18/2023 12:35 AM EDT) Glucose, POC 108 65 - 199 mg/dL [facility] Comment: Supplemental ranges: <140 mg/dL before meals <180 mg/dL all other times of the day Blood 05/18/2023 12:3 5 AM EDT 05/18/2023 12:35 AM EDT Georges Jacob MD POINT OF CARE TEST O RDERABLES Performing Organization Address [facility] Co de Phone Number [facility] [place] [place] [address] * XR Abdomen 1 view (Generic) (05/17/2023 10:43 PM EDT) Anatomical Region Laterality Modality Abdomen N/A Digital Radiogra phy Impressions 05/18/2023 12:52 AM EDT Enteric tube with tip and side-port in the proximal gastric body. Thank you for letting us participate in the care of this patient. ??If you are a health care provider and have any questions regarding this report, please contact the number below. ??For patients who have questions please contact the health manager managed care that requested your imaging first. ? Electronically signed by: Skylar Harrington MD, [facility] ([phone]), at 05/18/2023 12:52 AM Narrative 05/18/2023 12:52 AM EDT EXAMINATION: XR ABDOMEN 1 VIEW (GENERIC) CLINICAL HISTORY: NGT placement TECHNIQUE: Single frontal view of the abdomen. One image. COMPARISON: Abdominal radiograph 05/14/2023. CT chest abdomen 05/16/2023. FINDINGS: Enteric tube with tip and side-port in the proximal gastric body. Partially visualized central venous catheter. Left basilar atelectasis. Nonobstructive bowel gas pattern. Degenerative changes in the spine. Procedure Note Arianna Harrington MD - 05/18/2023 EXAMINATION: XR ABDOMEN 1 VIEW (GENERIC) CLINICAL HISTORY: NGT placement TECHNIQUE: Single frontal view of the abdomen. One image. COMPARISON: Abdominal radiograph 05/14/2023. CT chest abdomen 05/16/2023. FINDINGS: Enteric tube with tip and side-port in the proximal gastric body.Partially visualized central venous catheter. Left basilar atelectasis.Nonobstructive bowel gas pattern. Degenerative changes in the spine. IMPRESSION Enteric tube with tip and side-port in the proximal gastric body. Thank you for letting us participate in the care of this patient. If youare a health care provider and have any questions regarding this report,please contact the number below. For patients who have questions please contactthe health manager managed care that requested your imaging first. Electronically signed by: Skylar Harrington MD, [facility]([phone]), at 05/18/2023 12:52 AM Georges Jacob MD IMG DX ORDERABLES * POCT Glucose (05/17/2023 8:12 PM EDT) Glucose, POC 95 65 - 199 mg/dL [facility] Comment: Supplemental ranges: <140 mg/dL before meals <180 mg/dL all other times of the day Blood 05/17/2023 8:12 PM EDT 05/17/2023 8:12 PM EDT Georges Jacob MD POINT OF CARE TEST O RDERABLES Performing Organization Address City/[facility]/ZIP Co de Phone Number [facility] [place] [place] [address] * POCT Glucose (05/17/2023 4:29 PM EDT) Glucose, POC 107 65 - 199 mg/dL [facility] Comment: Supplemental ranges: <140 mg/dL before meals <180 mg/dL all other times of the day Blood 05/17/2023 4:29 PM EDT 05/17/2023 4:29 PM EDT Georges Jacob MD POINT OF CARE TEST O RDERABLES Performing Organization Address [facility]/ZIP Co de Phone Number [facility] [place] [place] [address] * EKG 12 Lead (05/17/2023 2:33 PM EDT) Ventricular rate 75 BPM MUSE SYSTEM Atrial Rate 75 BPM MUSE SYSTEM P-R Interval 204 ms MUSE SYSTEM QRS Duration 164 ms MUSE SYSTEM Q-T Interval 432 ms MUSE SYSTEM QTC Calculated (Bezet) 482 ms MUSE SYSTEM Calculated P Phoenix 38 degrees MUSE SYSTEM Calculated R Phoenix -33 degrees MUSE SYSTEM Calculated T [place] 49 degrees MUSE SYSTEM INTERPRETATION Sinus rhythm with marked sinus arrhythmia Left axis deviation Right bundle branch block Abnormal ECG When compared with ECG of 16-MAY-2023 16:46, (unconfirmed) No significant change was found Confirmed by Trang Echeverria ([id number]) on 05/17/2023 3:24:46 PM MUSE SYSTEM 05/17/2023 2:33 PM EDT 05/17/2023 3:24 PM EDT Georges Jacob MD ECG ORDERABLES MUSE SYSTEM * POCT Glucose (05/17/2023 12:20 PM EDT) Glucose, POC 142 65 - 199 mg/dL [facility] Comment: Supplemental ranges: <140 mg/dL before meals <180 mg/dL all other times of the day Blood 05/17/2023 12:2 0 PM EDT 05/17/2023 12:20 PM EDT Georges Jacob MD POINT OF CARE TEST O RDERABLES Performing Organization Address [facility] Co de Phone Number [facility] [place] [place] [address] * POCT Glucose (05/17/2023 7:50 AM EDT) Glucose, POC 117 65 - 199 mg/dL [facility] Comment: Supplemental ranges: <140 mg/dL before meals <180 mg/dL all other times of the day Blood 05/17/2023 7:50 AM EDT 05/17/2023 7:50 AM EDT Georges Jacob MD POINT OF CARE TEST O RDERATAYLOR Performing Organization Address City/[facility]/ZIP Co de Phone Number [facility] [place] [address] * POCT Glucose (05/17/2023 4:11 AM EDT) Glucose, POC 124 65 - 199 mg/dL [facility] Comment: Supplemental ranges: <140 mg/dL before meals <180 mg/dL all other times of the day Blood 05/17/2023 4:11 AM EDT 05/17/2023 4:11 AM EDT Georges Jacob MD POINT OF CARE TEST O RDERABLES [facility] [place] [address] * (ABNORMAL) Basic Metabolic Panel (non-fasting) (05/17/2023 12:47 AM EDT) Glucose 152 65 - 199 mg/dL [facility] Comment:Diabetes: >=200 mg/d L plus symptoms Blood Urea Nitrogen 29(H) 10 - 20 mg/dL [facility] Creatinine 1.41 0.80 - 1.50 mg/dL [facility] Sodium 135 135 - 145 mmol/L [facility] Potassium 4.2 3.5 - 5.0 mmol/L [facility] Comment: Please note: ??Patients with WBC >100,000 may have falsely elevated Potassium levels. ??For accurate Potassium quantification in these patients send serum separator tube (gold top) for subsequent determinations. ??Contact the Clinical Chemistry Laboratory if there are any questions. Chloride 99 98 - 107 mmol/L [facility] Carbon Dioxide 29 22 - 31 mmol/L [facility] Anion Gap 7 5 - 15 mmol/L [facility] Calcium 9.5 8.5 - 10.5 mg/dL [facility] Est Glomerular Filtration Rate 55(L) >=60 mL/min/1. 73 m?? [facility] Comment: This patient's estimated [...] and symptoms in addition to eGFR. Blood 05/17/2023 12:4 7 AM EDT 05/17/2023 1:14 AM EDT Narrative Resulting Agency Comment Spec In Lab Georges Jacob MD CHEMISTRY ORDERABLES Performing Organization Address City/[facility]/ZIP Co de Phone Number [facility] [place] [address] * Phosphorus (05/17/2023 12:47 AM EDT) Phosphorus 4.2 2.5 - 4.5 mg/dL [facility] Blood 05/17/2023 12:4 7 AM EDT 05/17/2023 1:14 AM EDT Narrative Resulting Agency Comment Spec In Lab Georges Jacob MD CHEMISTRY ORDERABLES Performing Organization Address [facility] Co de Phone Number [facility] [place] [address] * Magnesium (05/17/2023 12:47 AM EDT) Magnesium 0.82 0.69 - 1.07 mmol/L [facility] Blood 05/17/2023 12:4 7 AM EDT 05/17/2023 1:14 AM EDT Narrative Resulting Agency Comment Spec In Lab Georges Jacob MD CHEMISTRY ORDERABLES Performing Organization Address [facility] Co de Phone Number [facility] [place] [place] [address] * POCT Glucose (05/17/2023 12:41 AM EDT) Glucose, POC 156 65 - 199 mg/dL [facility] Comment: Supplemental ranges: <140 mg/dL before meals <180 mg/dL all other times of the day Blood 05/17/2023 12:4 1 AM EDT 05/17/2023 12:41 AM EDT Georges Jacob MD POINT OF CARE TEST O RDERABLES [facility] [place] [place] [address] * POCT Glucose (05/16/2023 7:41 PM EDT) Glucose, POC 176 65 - 199 mg/dL [facility] Comment: Supplemental ranges: <140 mg/dL before meals <180 mg/dL all other times of the day Blood 05/16/2023 7:41 PM EDT 05/16/2023 7:41 PM EDT Georges Jacob MD POINT OF CARE TEST O RDERABLES Performing Organization Address [facility]/ZIP Co de Phone Number [facility] [place] [place] [address] * EKG 12 Lead (05/16/2023 4:46 PM EDT) Ventricular rate 63 BPM MUSE SYSTEM Atrial Rate 63 BPM MUSE SYSTEM P-R Interval 194 ms MUSE SYSTEM QRS Duration 156 ms MUSE SYSTEM Q-T Interval 442 ms MUSE SYSTEM QTC Calculated (Bezet) 452 ms MUSE SYSTEM Calculated P Phoenix 34 degrees MUSE SYSTEM Calculated R Phoenix -39 degrees MUSE SYSTEM Calculated T Phoenix 46 degrees MUSE SYSTEM INTERPRETATION Normal sinus rhythm with sinus arrhythmia Possible Left atrial enlargement Left axis deviation Right bundle branch block Abnormal ECG When compared with ECG of 16-MAY-2023 05:06, No significant change was found Confirmed by Trang Echeverria ([id number]) on 05/17/2023 2:51:40 PM MUSE SYSTEM 05/16/2023 4:46 PM EDT 05/17/2023 2:51 PM EDT Georges Jacob MD ECG ORDERABLES Performing Organization Address City/[facility]/ZIP Co de Phone Number MUSE SYSTEM * CT Angiogram Chest Abdomen Pelvis wwo Contrast (05/16/2023 4:16 PM EDT) Anatomical Region Laterality Modality Abdomen, Chest Computed Tomogra phy Addenda Addendum by Avi Castillo MD on 05/17/2023 9:21 AM EDT --------ADDENDUM #1-------- Additional IMPRESSION point: 5. Cardiomegaly with biatrial enlargement and myocardial hypertrophy of the left ventricle. Consider cardiology evaluation. Thank you for letting us participate in the care of this patient. ??If you are a health care provider and have any questions regarding this report, please contact the number below. ??For patients who have questions please contact the health manager managed care that requested your imaging first. ? Electronically signed by: AVI CASTILLO MD, [facility] ([phone]), at 05/17/2023 9:16 AM --------ORIGINAL REPORT -------- EXAMINATION: CT ANGIOGRAM CHEST ABDOMEN PELVIS WWO CONTRAST CLINICAL HISTORY: Aortic disection, subclavian to bilateral external iliacs. Reimaging for interval assessment. TECHNIQUE: Helical CT angiogram of the chest, abdomen and pelvis before and after the intravenous administration of contrast. Administered 120.0 ml of OMNIPAQUE 350.00 mg/ml. Maximum intensity projection (MIP) were reformatted. 3-D images were generated on an independent workstation. COMPARISON: CT 04/22/2023 FINDINGS: VASCULAR FINDINGS Heart: The heart is enlarged, probably owing to moderate biatrial enlargement. The left ventricle appears hypertrophic with the intraventricular septum measuring up to 2.6 cm. Question thickening of the left ventricular apex. Moderate coronary artery calcification. No pericardial effusion. Thoracic aorta: Ascending aortic ectasia up to 4.6 cm. Dissection flap begins at the level of the left subclavian artery takeoff, the origin of which is not involved, unchanged from prior. Dissection extends distally into the abdominal aorta. No enlargement of maximal thoracic aortic caliber measuring up to 4.7 cm on the current study. The proximal false lumen is mixed attenuation suggesting thrombosis. Abdominal proximal to the mid thoracic aorta the false lumen becomes opacified. Arch branch vessel origins: No stenosis. No involvement by dissection. Pulmonary arteries: No central filling defects. Abdominal aorta: The dissection involves the inferior abdominal aorta, as before, without increase in aortic caliber. The false lumen remains opacified. Celiac: No stenosis. Arises from the true lumen. SMA: No stenosis. Arises from the true lumen. Right renal artery: Mild proximal narrowing. Arises from the true lumen. Left renal artery: Moderate proximal narrowing. Arises from the false lumen BRIAN: No stenosis. Arises from the true lumen. Right: Common iliac artery: Dissection involves the entire vessel with opacification of both true and false lumens. Internal iliac artery: No stenosis. Arises off the true lumen. External iliac artery: The dissection involves the proximal external iliac artery, unchanged extent from prior. No stenosis. Common femoral artery: No stenosis. Left: Common iliac artery: The dissection involves the entire vessel with opacification of both the true and false lumens. Internal iliac artery: No stenosis. Origin off the true lumen. External iliac artery: Dissection extends through the entire vessel with unchanged extent from prior. Poor opacification of the false lumen and moderate narrowing of the true lumen. Common femoral artery: No stenosis. NON-VASCULAR FINDINGS Lungs and large airways: Areas of bibasilar atelectasis. The central airways are patent. Pleura: The previous trace left pleural fluid is no longer present. Mediastinum and jenise: No lymphadenopathy. Preservation of the mediastinal fat. Liver: Normal size and attenuation without lesions. Bile ducts: Nondilated. Gallbladder: No calcified gallstones. Normal caliber wall. Pancreas: Normal attenuation without ductal dilatation. Spleen: Normal. Adrenals: Normal. Kidneys: Symmetric enhancement. No hydronephrosis. No wedge-shaped hypoattenuation to suggest infarction. Bandlike posterior hypoattenuation is likely related to arms down positioning. Bilateral peripelvic cysts. A low-attenuation lesion along the left interpole is slightly smaller than on the prior study and of increased attenuation with adjacent small fluid collection over the lower pole capsule, suggesting interval partial rupture of a cyst. Urinary Bladder: Decompressed by Rebolledo catheter. Lymph Nodes: No enlarged lymph nodes. Bowel: Nondilated small and large bowel. Enteric tube terminates in the body of the stomach. Peritoneum and retroperitoneum: No hemorrhage. No pneumoperitoneum. No fluid collection or mesenteric inflammation. Abdominal wall: Subcutaneous soft tissue densities in the anterior abdominal wall suggesting medication injection sites. Reproductive organs: Enlarged prostate. Osseous structures: Advanced left hip osteoarthropathy with extensive cystic and sclerotic change. IMPRESSION: 1. ??Unchanged extent of the Ammon B aortic dissection from the left subclavian artery origin through the external iliac arteries. Unchanged 4.7 cm caliber of the proximal descending thoracic aorta. 2. 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 Remaining vessels arise off the true lumen. 3. ??Ascending aortic dilation to 4.6 cm. 4. ??No left renal ischemia, however, a left interpole cyst appears to health partially ruptured in the interim. High density of the lesion can also be seen with solid neoplasm. Nonemergent multiphase CT or MRI is recommended as an outpatient for cyst confirmation. Thank you for letting us participate in the care of this patient. ??If you are a health care provider and have any questions regarding this report, please contact the number below. ??For patients who have questions please contact the health manager managed care that requested your imaging first. ? Electronically signed by: AVI CASTILLO MD, [facility] ([phone]), at 05/17/2023 8:35 AM Impressions 05/17/2023 8:35 AM EDT 1. ??Unchanged extent of the [place] B aortic dissection from the left subclavian artery origin through the external iliac arteries. Unchanged 4.7 cm caliber of the proximal descending thoracic aorta. 2. 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 Remaining vessels arise off the true lumen. 3. ??Ascending aortic dilation to 4.6 cm. 4. ??No left renal ischemia, however, a left interpole cyst appears to health partially ruptured in the interim. High density of the lesion can also be seen with solid neoplasm. Nonemergent multiphase CT or MRI is recommended as an outpatient for cyst confirmation. Thank you for letting us participate in the care of this patient. ??If you are a health care provider and have any questions regarding this report, please contact the number below. ??For patients who have questions please contact the health manager managed care that requested your imaging first. ? Electronically signed by: AVI CASTILLO MD, [facility] ([phone]), at 05/17/2023 8:35 AM Narrative 05/17/2023 8:35 AM EDT EXAMINATION: CT ANGIOGRAM CHEST ABDOMEN PELVIS WWO CONTRAST CLINICAL HISTORY: Aortic disection, subclavian to bilateral external iliacs. Reimaging for interval assessment. TECHNIQUE: Helical CT angiogram of the chest, abdomen and pelvis before and after the intravenous administration of contrast. Administered 120.0 ml of OMNIPAQUE 350.00 mg/ml. Maximum intensity projection (MIP) were reformatted. 3-D images were generated on an independent workstation. COMPARISON: CT 04/22/2023 FINDINGS: VASCULAR FINDINGS Heart: The heart is enlarged, probably owing to moderate biatrial enlargement. The left ventricle appears hypertrophic with the intraventricular septum measuring up to 2.6 cm. Question thickening of the left ventricular apex. Moderate coronary artery calcification. No pericardial effusion. Thoracic aorta: Ascending aortic ectasia up to 4.6 cm. Dissection flap begins at the level of the left subclavian artery takeoff, the origin of which is not involved, unchanged from prior. Dissection extends distally into the abdominal aorta. No enlargement of maximal thoracic aortic caliber measuring up to 4.7 cm on the current study. The proximal false lumen is mixed attenuation suggesting thrombosis. Abdominal proximal to the mid thoracic aorta the false lumen becomes opacified. Arch branch vessel origins: No stenosis. No involvement by dissection. Pulmonary arteries: No central filling defects. Abdominal aorta: The dissection involves the inferior abdominal aorta, as before, without increase in aortic caliber. The false lumen remains opacified. Celiac: No stenosis. Arises from the true lumen. SMA: No stenosis. Arises from the true lumen. Right renal artery: Mild proximal narrowing. Arises from the true lumen. Left renal artery: Moderate proximal narrowing. Arises from the false lumen BRIAN: No stenosis. Arises from the true lumen. Right: Common iliac artery: Dissection involves the entire vessel with opacification of both true and false lumens. Internal iliac artery: No stenosis. Arises off the true lumen. External iliac artery: The dissection involves the proximal external iliac artery, unchanged extent from prior. No stenosis. Common femoral artery: No stenosis. Left: Common iliac artery: The dissection involves the entire vessel with opacification of both the true and false lumens. Internal iliac artery: No stenosis. Origin off the true lumen. External iliac artery: Dissection extends through the entire vessel with unchanged extent from prior. Poor opacification of the false lumen and moderate narrowing of the true lumen. Common femoral artery: No stenosis. NON-VASCULAR FINDINGS Lungs and large airways: Areas of bibasilar atelectasis. The central airways are patent. Pleura: The previous trace left pleural fluid is no longer present. Mediastinum and jenise: No lymphadenopathy. Preservation of the mediastinal fat. Liver: Normal size and attenuation without lesions. Bile ducts: Nondilated. Gallbladder: No calcified gallstones. Normal caliber wall. Pancreas: Normal attenuation without ductal dilatation. Spleen: Normal. Adrenals: Normal. Kidneys: Symmetric enhancement. No hydronephrosis. No wedge-shaped hypoattenuation to suggest infarction. Bandlike posterior hypoattenuation is likely related to arms down positioning. Bilateral peripelvic cysts. A low-attenuation lesion along the left interpole is slightly smaller than on the prior study and of increased attenuation with adjacent small fluid collection over the lower pole capsule, suggesting interval partial rupture of a cyst. Urinary Bladder: Decompressed by Rebolledo catheter. Lymph Nodes: No enlarged lymph nodes. Bowel: Nondilated small and large bowel. Enteric tube terminates in the body of the stomach. Peritoneum and retroperitoneum: No hemorrhage. No pneumoperitoneum. No fluid collection or mesenteric inflammation. Abdominal wall: Subcutaneous soft tissue densities in the anterior abdominal wall suggesting medication injection sites. Reproductive organs: Enlarged prostate. Osseous structures: Advanced left hip osteoarthropathy with extensive cystic and sclerotic change. Procedure Note Avi Castillo MD - 05/17/2023 EXAMINATION: CT ANGIOGRAM CHEST ABDOMEN PELVIS WWO CONTRAST CLINICAL HISTORY: Aortic disection, subclavian to bilateral externaliliacs. Reimaging for interval assessment. TECHNIQUE: Helical CT angiogram of the chest, abdomen and pelvis beforeand after the intravenous administration of contrast. Administered 120.0 mlof OMNIPAQUE 350.00 mg/ml. Maximum intensity projection (MIP) werereformatted. 3-D images were generated on an independent workstation. COMPARISON: CT 04/22/2023 FINDINGS: VASCULAR FINDINGS Heart: The heart is enlarged, probably owing to moderate biatrialenlargement. The left ventricle appears hypertrophic with the intraventricular septum measuring up to 2.6 cm. Question thickening of the left ventricularapex. Moderate coronary artery calcification. No pericardial effusion. Thoracic aorta: Ascending aortic ectasia up to 4.6 cm. Dissection flapbegins at the level of the left subclavian artery takeoff, the origin of which isnot involved, unchanged from prior. Dissection extends distally into theabdominal aorta. No enlargement of maximal thoracic aortic caliber measuring up to4.7 cm on the current study. The proximal false lumen is mixed attenuationsuggesting thrombosis. Abdominal proximal to the mid thoracic aorta the false lumenbecomes opacified. Arch branch vessel origins: No stenosis. No involvement by dissection. Pulmonary arteries: No central filling defects. Abdominal aorta: The dissection involves the inferior abdominal aorta,as before, without increase in aortic caliber. The false lumen remainsopacified. Celiac: No stenosis. Arises from the true lumen. SMA: No stenosis. Arises from the true lumen. Right renal artery: Mild proximal narrowing. Arises from the true lumen. Left renal artery: Moderate proximal narrowing. Arises from the falselumen BRIAN: No stenosis. Arises from the true lumen. Right: Common iliac artery: Dissection involves the entire vessel withopacification of both true and false lumens. Internal iliac artery: No stenosis. Arises off the true lumen. External iliac artery: The dissection involves the proximal externaliliac artery, unchanged extent from prior. No stenosis. Common femoral artery: No stenosis. Left: Common iliac artery: The dissection involves the entire vessel with opacification of both the true and false lumens. Internal iliac artery: No stenosis. Origin off the true lumen. External iliac artery: Dissection extends through the entire vessel with unchanged extent from prior. Poor opacification of the false lumen andmoderate narrowing of the true lumen. Common femoral artery: No stenosis. NON-VASCULAR FINDINGS Lungs and large airways: Areas of bibasilar atelectasis. The centralairways are patent. Pleura: The previous trace left pleural fluid is no longer present. Mediastinum and jenise: No lymphadenopathy. Preservation of the mediastinalfat. Liver: Normal size and attenuation without lesions. Bile ducts: Nondilated. Gallbladder: No calcified gallstones. Normal caliber wall. Pancreas: Normal attenuation without ductal dilatation. Spleen: Normal. Adrenals: Normal. Kidneys: Symmetric enhancement. No hydronephrosis. No wedge-shaped hypoattenuation to suggest infarction. Bandlike posterior hypoattenuationis likely related to arms down positioning. Bilateral peripelvic cysts. A low-attenuation lesion along the left interpole is slightly smaller thanon the prior study and of increased attenuation with adjacent small fluidcollection over the lower pole capsule, suggesting interval partial rupture of acyst. Urinary Bladder: Decompressed by Rebolledo catheter. Lymph Nodes: No enlarged lymph nodes. Bowel: Nondilated small and large bowel. Enteric tube terminates in thebody of the stomach. Peritoneum and retroperitoneum: No hemorrhage. No pneumoperitoneum. Nofluid collection or mesenteric inflammation. Abdominal wall: Subcutaneous soft tissue densities in the anteriorabdominal wall suggesting medication injection sites. Reproductive organs: Enlarged prostate. Osseous structures: Advanced left hip osteoarthropathy with extensivecystic and sclerotic change. IMPRESSION 1. Unchanged extent of the Camanche B aortic dissection from the left subclavian artery origin through the external iliac arteries. Unchanged4.7 cm caliber of the proximal descending thoracic aorta. 2. 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 Remaining vessels arise offthe true lumen. 3. Ascending aortic dilation to 4.6 cm. 4. No left renal ischemia, however, a left interpole cyst appears tohealth partially ruptured in the interim. High density of the lesion can also beseen with solid neoplasm. Nonemergent multiphase CT or MRI is recommended asan outpatient for cyst confirmation. Thank you for letting us participate in the care of this patient. If youare a health care provider and have any questions regarding this report,please contact the number below. For patients who have questions please contactthe health manager managed care that requested your imaging first. Electronically signed by: AVI CASTILLO MD, [facility]([phone]), at 05/17/2023 8:35 AM Georges Jacob MD IMG CT ORDERABLES * POCT Glucose (05/16/2023 3:10 PM EDT) Glucose, POC 153 65 - 199 mg/dL [facility] Comment: Supplemental ranges: <140 mg/dL before meals <180 mg/dL all other times of the day Blood 05/16/2023 3:10 PM EDT 05/16/2023 3:10 PM EDT Georges Jacob MD POINT OF CARE TEST O SARAH Performing Organization Address [facility] Co de Phone Number [facility] [place] [place] [address] * POCT Glucose (05/16/2023 11:06 AM EDT) Glucose, POC 178 65 - 199 mg/dL [facility] Comment: Supplemental ranges: <140 mg/dL before meals <180 mg/dL all other times of the day Blood 05/16/2023 11:0 6 AM EDT 05/16/2023 11:06 AM EDT Georges Jacob MD POINT OF CARE TEST O SARAH [facility] [place] [place] [address] * POCT Glucose (05/16/2023 7:40 AM EDT) Glucose, POC 121 65 - 199 mg/dL [facility] Comment: Supplemental ranges: <140 mg/dL before meals <180 mg/dL all other times of the day Blood 05/16/2023 7:40 AM EDT 05/16/2023 7:40 AM EDT Georges Jacob MD POINT OF CARE TEST O RDERABLES [facility] [place] [place] [address] * POCT Glucose (05/16/2023 4:22 AM EDT) [facility] Glucose, POC 116 65 - 199 mg/dL [facility] Comment: Supplemental ranges: <140 mg/dL before meals <180 mg/dL all other times of the day Blood 05/16/2023 4:22 AM EDT 05/16/2023 4:22 AM EDT Georges Jacob MD POINT OF CARE TEST O RDERABLES [facility] [place] [place] [address] * (ABNORMAL) Differential, Automated (05/16/2023 12:42 AM EDT) [facility] Neutrophil % 63.3 % [facility] Neutrophil Absolute 4.81 1.70 - 6.10 x10(3)/mc L [facility] Lymph % 13.2 % [facility] Lymphocytes Abs 1.0 0.9 - 3.2 x10(3)/mc L [facility] Monocyte % 14.8 % [facility] Monocyte Abs 1.1(H) 0.3 - 0.9 x10(3)/mc L [facility] Eos % 7.9 % [facility] Eosinophils Abs 0.6(H) 0.0 - 0.4 x10(3)/mc L [facility] Basophil % 0.5 % [facility] Baso Absolute 0.0 0.0 - 0.1 x10(3)/mc L [facility] Immature Gran % 0.30 % [facility] Comment: Immature granulocytes(IG's)percentage and absolute count will include metamyelocytes, myelocytes, and promyelocytes. Blood smears from CBCs yielding IG's will be scanned manually for concordance. If this scan disagrees with the automated IG or if promyelocytes are noted, a manual differential will be performed. Immature Gran Absolute 0.02 0.00 - 0.04 x10(3)/ L [facility] Blood 05/16/2023 12:4 2 AM EDT 05/16/2023 1:21 AM EDT Narrative Resulting Agency Comment Spec In Lab Annmarie TAFOYA HEMATOLOGY ORDERABLE S Performing Organization Address City/State/[facility] Co de Phone Number [facility] [place] [place] [address] * (ABNORMAL) Hemogram (05/16/2023 12:42 AM EDT) White Blood Cell 7.6 4.0 - 9.5 x10(3)/ L [facility] Red Blood Cell 3.01(L) 4.58 - 5.54 x10(6)/mc L [facility] Hemoglobin 9.4(L) 13.7 - 16.5 g/dL [facility] Hematocrit 29.7(L) 40.5 - 48.5 % [facility] Mean Cell Volume 98.7(H) 82.9 - 93.1 fL [facility] Mean Cell Hemoglobin 31.2 27.5 - 32.1 pg [facility] Mean Cell Hemoglobin Concentration 31.6(L) 32.0 - 35.7 g/dL [facility] Platelet 223 145 - 357 x10(3)/ L [facility] RDW Standard Deviation 52.6(H) 36.0 - 45.0 fL [facility] RDW coefficient of variation 14.4(H) 11.4 - 13.8 % [facility] Mean Platelet Volume 11.1 7.6 - 12.9 fL [facility] NRBC% auto 0.0 % [facility] NRBC Absolute 0.000 0.000 - 0.000 x10(3)/mc L [facility] Blood 05/16/2023 12:4 2 AM EDT 05/16/2023 1:21 AM EDT Narrative Resulting Agency Comment Spec In Lab Annmarie TAFOYA HEMATOLOGY ORDERABLE S [facility] [place] [address] * (ABNORMAL) Basic Metabolic Panel (non-fasting) (05/16/2023 12:42 AM EDT) Glucose 121 65 - 199 mg/dL [facility] Comment:Diabetes: >=200 mg/d L plus symptoms Blood Urea Nitrogen 26(H) 10 - 20 mg/dL [facility] Creatinine 1.23 0.80 - 1.50 mg/dL [facility] Sodium 139 135 - 145 mmol/L [facility] Potassium 4.4 3.5 - 5.0 mmol/L [facility] Comment: Please note: ??Patients with WBC >100,000 may have falsely elevated Potassium levels. ??For accurate Potassium quantification in these patients send serum separator tube (gold top) for subsequent determinations. ??Contact the Clinical Chemistry Laboratory if there are any questions. Chloride 103 98 - 107 mmol/L [facility] Carbon Dioxide 28 22 - 31 mmol/L [facility] Anion Gap 8 5 - 15 mmol/L [facility] Calcium 9.6 8.5 - 10.5 mg/dL [facility] Est Glomerular Filtration Rate 65 >=60 mL/min/1. 73 m?? [facility] Comment: This patient's estimated [...] and symptoms in addition to eGFR. Blood 05/16/2023 12:4 2 AM EDT 05/16/2023 1:21 AM EDT Narrative Resulting Agency Comment Spec In Lab Georges Jacob MD CHEMISTRY ORDERABLES Performing Organization Address City/[facility]/ZIP Co de Phone Number [facility] [place] [place] [address] * Phosphorus (05/16/2023 12:42 AM EDT) Phosphorus 3.5 2.5 - 4.5 mg/dL [facility] Blood 05/16/2023 12:4 2 AM EDT 05/16/2023 1:21 AM EDT Narrative Resulting Agency Comment Spec In Lab Georges Jacob MD CHEMISTRY ORDERABLES Performing Organization Address [facility] Co de Phone Number [facility] [place] [place] [address] * Magnesium (05/16/2023 12:42 AM EDT) Magnesium 0.87 0.69 - 1.07 mmol/L [facility] Blood 05/16/2023 12:4 2 AM EDT 05/16/2023 1:21 AM EDT Narrative Resulting Agency Comment Spec In Lab Georges Jacob MD CHEMISTRY ORDERABLES Performing Organization Address City/[facility]/ZIP Co de Phone Number [facility] [place] [place] [address] * POCT Glucose (05/16/2023 12:41 AM EDT) Glucose, POC 119 65 - 199 mg/dL [facility] Comment: Supplemental ranges: <140 mg/dL before meals <180 mg/dL all other times of the day Blood 05/16/2023 12:4 1 AM EDT 05/16/2023 12:41 AM EDT Georges Jacob MD POINT OF CARE TEST O DYANAERATAYLOR [facility] [place] [place] [address] * (ABNORMAL) POCT Glucose (05/15/2023 7:26 PM EDT) Glucose, POC 203(H) 65 - 199 mg/dL [facility] Comment: Supplemental ranges: <140 mg/dL before meals <180 mg/dL all other times of the day Blood 05/15/2023 7:26 PM EDT 05/15/2023 7:26 PM EDT Georges Jacob MD POINT OF CARE TEST O SARAH Performing Organization Address [facility]/ZIP Co de Phone Number [facility] [place] [place] [address] * POCT Glucose (05/15/2023 3:51 PM EDT) Glucose, POC 186 65 - 199 mg/dL [facility] Comment: Supplemental ranges: <140 mg/dL before meals <180 mg/dL all other times of the day Blood 05/15/2023 3:51 PM EDT 05/15/2023 3:51 PM EDT Georges Jacob MD POINT OF CARE TEST O DYANAERATAYLOR [facility] [place] [place] [address] * POCT Glucose (05/15/2023 12:05 PM EDT) Glucose, POC 133 65 - 199 mg/dL [facility] Comment: Supplemental ranges: <140 mg/dL before meals <180 mg/dL all other times of the day Blood 05/15/2023 12:0 5 PM EDT 05/15/2023 12:05 PM EDT Georges Jacob MD POINT OF CARE TEST O SARAH [facility] [place] [place] [address] * POCT Glucose (05/15/2023 7:53 AM EDT) Glucose, POC 128 65 - 199 mg/dL [facility] Comment: Supplemental ranges: <140 mg/dL before meals <180 mg/dL all other times of the day Blood 05/15/2023 7:53 AM EDT 05/15/2023 7:53 AM EDT Edis Skaggs MD POINT OF CARE TEST Maday SMITH Performing Organization Address [facility]/ZIP Co de Phone Number [facility] [place] [place] [address] * POCT Glucose (05/15/2023 4:21 AM EDT) Glucose, POC 139 65 - 199 mg/dL [facility] Comment: Supplemental ranges: <140 mg/dL before meals <180 mg/dL all other times of the day Blood 05/15/2023 4:21 AM EDT 05/15/2023 4:21 AM EDT Edis Skaggs MD POINT OF CARE TEST Maday SMITH Performing Organization Address City/[facility]/ZIP Co de Phone Number [facility] [place] [place] [address] * (ABNORMAL) Differential, Automated (05/15/2023 12:35 AM EDT) Neutrophil % 67.4 % [facility] Neutrophil Absolute 5.12 1.70 - 6.10 x10(3)/[facility] Lymph % 13.0 % [facility] Lymphocytes Abs 1.0 0.9 - 3.2 x10(3)/[facility] Monocyte % 13.2 % [facility] Monocyte Abs 1.0(H) 0.3 - 0.9 x10(3)/[facility] Eos % 5.7 % [facility] Eosinophils Abs 0.4 0.0 - 0.4 x10(3)/[facility] Basophil % 0.4 % [facility] Baso Absolute 0.0 0.0 - 0.1 x10(3)/[facility] Immature Gran % 0.30 % [facility] Comment: Immature granulocytes(IG's)percentage and absolute count will include metamyelocytes, myelocytes, and promyelocytes. Blood smears from CBCs yielding IG's will be scanned manually for concordance. If this scan disagrees with the automated IG or if promyelocytes are noted, a manual differential will be performed. Immature Gran Absolute 0.02 0.00 - 0.04 x10(3)/[facility] Blood 05/15/2023 12:3 5 AM EDT 05/15/2023 12:54 AM EDT Narrative Resulting Agency Comment Spec In Lab Annmarie TAFOYA HEMATOLOGY ORDERABLE S [facility] [place] [place] [address] * (ABNORMAL) Hemogram (05/15/2023 12:35 AM EDT) Pathologist [facility] White Blood Cell 7.6 4.0 - 9.5 x10(3)/[facility] Red Blood Cell 3.03(L) 4.58 - 5.54 x10(6)/mc L [facility] Hemoglobin 9.4(L) 13.7 - 16.5 g/dL [facility] Hematocrit 29.2(L) 40.5 - 48.5 % [facility] Mean Cell Volume 96.4(H) 82.9 - 93.1 fL [facility] Mean Cell Hemoglobin 31.0 27.5 - 32.1 pg [facility] Mean Cell Hemoglobin Concentration 32.2 32.0 - 35.7 g/dL [facility] Platelet 206 145 - 357 x10(3)/mc L [facility] RDW Standard Deviation 51.8(H) 36.0 - 45.0 [facility] RDW coefficient of variation 14.6(H) 11.4 - 13.8 % [facility] Mean Platelet Volume 10.7 7.6 - 12.9 [facility] NRBC% auto 0.0 % [facility] NRBC Absolute 0.000 0.000 - 0.000 x10(3)/mc L [facility] Blood 05/15/2023 12:3 5 AM EDT 05/15/2023 12:54 AM EDT Narrative Resulting Agency Comment Spec In Lab Annmarie TAFOYA HEMATOLOGY ORDERABLE S Performing Organization Address City/State/[facility] Co de Phone Number [facility] [place] [place] [address] * (ABNORMAL) Basic Metabolic Panel (non-fasting) (05/15/2023 12:35 AM EDT) Glucose 132 65 - 199 mg/dL [facility] Comment:Diabetes: >=200 mg/d L plus symptoms Blood Urea Nitrogen 25(H) 10 - 20 mg/dL [facility] Creatinine 1.16 0.80 - 1.50 mg/dL [facility] Sodium 141 135 - 145 mmol/L [facility] Potassium 4.3 3.5 - 5.0 mmol/L [facility] Comment: Please note: ??Patients with WBC >100,000 may have falsely elevated Potassium levels. ??For accurate Potassium quantification in these patients send serum separator tube (gold top) for subsequent determinations. ??Contact the Clinical Chemistry Laboratory if there are any questions. Chloride 103 98 - 107 mmol/L [facility] Carbon Dioxide 29 22 - 31 mmol/L [facility] Anion Gap 9 5 - 15 mmol/L [facility] Calcium 9.6 8.5 - 10.5 mg/dL [facility] Est Glomerular Filtration Rate 70 >=60 mL/min/1. 73 m?? [facility] Comment: This patient's estimated [...] and symptoms in addition to eGFR. Blood 05/15/2023 12:3 5 AM EDT 05/15/2023 12:54 AM EDT Narrative Resulting Agency Comment Spec In Lab Georges Jacob MD CHEMISTRY ORDERABLES [facility] [place] [place] [address] * Phosphorus (05/15/2023 12:35 AM EDT) Phosphorus 2.7 2.5 - 4.5 mg/dL [facility] Blood 05/15/2023 12:3 5 AM EDT 05/15/2023 12:54 AM EDT Narrative Resulting Agency Comment Spec In Lab Georges Jacob MD CHEMISTRY ORDERABLES Performing Organization Address [facility] Co de Phone Number [facility] [place] [place] [address] * Magnesium (05/15/2023 12:35 AM EDT) Magnesium 0.96 0.69 - 1.07 mmol/L [facility] Blood 05/15/2023 12:3 5 AM EDT 05/15/2023 12:54 AM EDT Narrative Resulting Agency Comment Spec In Lab Georges Jacob MD CHEMISTRY ORDERABLES Performing Organization Address [facility] de Phone Number [facility] [place] [place] [address] * POCT Glucose (05/15/2023 12:33 AM EDT) Glucose, POC 129 65 - 199 mg/dL [facility] Comment: Supplemental ranges: <140 mg/dL before meals <180 mg/dL all other times of the day Blood 05/15/2023 12:3 3 AM EDT 05/15/2023 12:33 AM EDT Edis Skaggs MD POINT OF CARE TEST O RDERABLES Performing Organization Address [facility] Phone Number [facility] [place] [address] * (ABNORMAL) POCT Glucose (05/14/2023 8:33 PM EDT) Glucose, POC 215(H) 65 - 199 mg/dL [facility] Comment: Supplemental ranges: <140 mg/dL before meals <180 mg/dL all other times of the day Blood 05/14/2023 8:33 PM EDT 05/14/2023 8:33 PM EDT Edis Skaggs MD POINT OF CARE TEST O RDERABLES Performing Organization Address [facility]/[place] [address] * XR Abdomen 1 view (Generic) (05/14/2023 5:49 PM EDT) Anatomical Region Laterality Modality Abdomen N/A Digital Radiogra phy Impressions 05/14/2023 5:51 PM EDT NG tube is present with the distal end in the stomach. Thank you for letting us participate in the care of this patient. ??If you are a health care provider and have any questions regarding this report, please contact the number below. ??For patients who have questions please contact the health manager managed care that requested your imaging first. ? Electronically signed by: Esteban Delarosa MD, [facility] ([phone]), at 05/14/2023 5:51 PM Narrative 05/14/2023 5:51 PM EDT EXAMINATION: XR ABDOMEN 1 VIEW (GENERIC) CLINICAL HISTORY: Verify NG Tube Placement TECHNIQUE: AP portable view of the lower chest and upper abdomen COMPARISON: May 06, 2023 FINDINGS: NG tube is present with the distal end and side port overlying the body of the stomach. Procedure Note Esteban Delarosa MD - 05/14/2023 EXAMINATION: XR ABDOMEN 1 VIEW (GENERIC) CLINICAL HISTORY: Verify NG Tube Placement TECHNIQUE: AP portable view of the lower chest and upper abdomen COMPARISON: May 06, 2023 FINDINGS: NG tube is present with the distal end and side port overlying the body ofthe stomach. IMPRESSION NG tube is present with the distal end in the stomach. Thank you for letting us participate in the care of this patient. If youare a health care provider and have any questions regarding this report,please contact the number below. For patients who have questions please contactthe health manager managed care that requested your imaging first. Electronically signed by: Esteban Delarosa MD, [facility]([phone]), at 05/14/2023 5:51 PM Ludy Gardner ZEESHAN IMG DX ORDERABLES * POCT Glucose (05/14/2023 5:48 PM EDT) Glucose, POC 125 65 - 199 mg/dL [facility] Comment: Supplemental ranges: <140 mg/dL before meals <180 mg/dL all other times of the day Blood 05/14/2023 5:48 PM EDT 05/14/2023 5:48 PM EDT Edis Skaggs MD POINT OF CARE TEST O RDERATAYLOR Performing Organization Address [facility] Co de Phone Number [facility] [place] [place] [address] * POCT Glucose (05/14/2023 12:10 PM EDT) Glucose, POC 143 65 - 199 mg/dL [facility] Comment: Supplemental ranges: <140 mg/dL before meals <180 mg/dL all other times of the day Blood 05/14/2023 12:1 0 PM EDT 05/14/2023 12:10 PM EDT Edis Skaggs MD POINT OF CARE TEST O RDERABLES Performing Organization Address [facility]/ZIP Co de Phone Number [facility] [place] [place] [address] * POCT Glucose (05/14/2023 8:00 AM EDT) Glucose, POC 121 65 - 199 mg/dL [facility] Comment: Supplemental ranges: <140 mg/dL before meals <180 mg/dL all other times of the day Blood 05/14/2023 8:00 AM EDT 05/14/2023 8:00 AM EDT Edis Skaggs MD POINT OF CARE TEST O RDERABLES Performing Organization Address City/[facility]/[place] [address] * (ABNORMAL) Differential, Automated (05/14/2023 1:30 AM EDT) Neutrophil % 71.7 % [facility] Neutrophil Absolute 6.91(H) 1.70 - 6.10 x10(3)/mc L [facility] Lymph % 10.4 % [facility] Lymphocytes Abs 1.0 0.9 - 3.2 x10(3)/[facility] Monocyte % 12.5 % [facility] Monocyte Abs 1.2(H) 0.3 - 0.9 x10(3)/ L [facility] Eos % 4.8 % [facility] Eosinophils Abs 0.5(H) 0.0 - 0.4 x10(3)/[facility] Basophil % 0.4 % [facility] Baso Absolute 0.0 0.0 - 0.1 x10(3)/[facility] Immature Gran % 0.20 % [facility] Comment: Immature granulocytes(IG's)percentage and absolute count will include metamyelocytes, myelocytes, and promyelocytes. Blood smears from CBCs yielding IG's will be scanned manually for concordance. If this scan disagrees with the automated IG or if promyelocytes are noted, a manual differential will be performed. Immature Gran Absolute 0.02 0.00 - 0.04 x10(3)/ L [facility] Blood 05/14/2023 1:30 AM EDT 05/14/2023 1:35 AM EDT Narrative Resulting Agency Comment Spec In Lab Annmarie TAFOYA HEMATOLOGY ORDERABLE S Performing Organization Address City/[facility]/ZIP Co de Phone Number [facility] [place] [place] [address] * (ABNORMAL) Hemogram (05/14/2023 1:30 AM EDT) [facility] White Blood Cell 9.6(H) 4.0 - 9.5 x10(3)/[facility] Red Blood Cell 2.92(L) 4.58 - 5.54 x10(6)/[facility] Hemoglobin 9.2(L) 13.7 - 16.5 g/dL [facility] Hematocrit 28.2(L) 40.5 - 48.5 % [facility] Mean Cell Volume 96.6(H) 82.9 - 93.1 fL [facility] Mean Cell Hemoglobin 31.5 27.5 - 32.1 pg [facility] Mean Cell Hemoglobin Concentration 32.6 32.0 - 35.7 g/dL [facility] Platelet 191 145 - 357 x10(3)/[facility] RDW Standard Deviation 51.6(H) 36.0 - 45.0 [facility] RDW coefficient of variation 14.6(H) 11.4 - 13.8 % [facility] Mean Platelet Volume 10.5 7.6 - 12.9 [facility] NRBC% auto 0.0 % [facility] NRBC Absolute 0.000 0.000 - 0.000 x10(3)/[facility] Blood 05/14/2023 1:30 AM EDT 05/14/2023 1:35 AM EDT Narrative Resulting Agency Comment Spec In Lab Annmarie TAFOYA HEMATOLOGY ORDERABLE S [facility] [place] [place] [address] * (ABNORMAL) Basic Metabolic Panel (non-fasting) (05/14/2023 1:30 AM EDT) [facility] Glucose 142 65 - 199 mg/dL [facility] Comment:Diabetes: >=200 mg/d L plus symptoms Blood Urea Nitrogen 31(H) 10 - 20 mg/dL [facility] Creatinine 1.42 0.80 - 1.50 mg/dL [facility] Sodium 139 135 - 145 mmol/L [facility] Potassium 4.5 3.5 - 5.0 mmol/L [facility] Comment: Please note: ??Patients with WBC >100,000 may have falsely elevated Potassium levels. ??For accurate Potassium quantification in these patients send serum separator tube (gold top) for subsequent determinations. ??Contact the Clinical Chemistry Laboratory if there are any questions. Chloride 102 98 - 107 mmol/L [facility] Carbon Dioxide 29 22 - 31 mmol/L [facility] Anion Gap 8 5 - 15 mmol/L [facility] Calcium 9.4 8.5 - 10.5 mg/dL [facility] Est Glomerular Filtration Rate 55(L) >=60 mL/min/1. 73 m?? [facility] Comment: This patient's estimated [...] and symptoms in addition to eGFR. Blood 05/14/2023 1:30 AM EDT 05/14/2023 1:35 AM EDT Narrative Resulting Agency Comment Spec In Lab Georges Jacob MD CHEMISTRY ORDERABLES [facility] [place] [place] [address] * Phosphorus (05/14/2023 1:30 AM EDT) Phosphorus 3.6 2.5 - 4.5 mg/dL [facility] Blood 05/14/2023 1:30 AM EDT 05/14/2023 1:35 AM EDT Narrative Resulting Agency Comment Spec In Lab Georges Jacob MD CHEMISTRY ORDERABLES Performing Organization Address City/[facility] Co de Phone Number [facility] [place] [place] [address] * Magnesium (05/14/2023 1:30 AM EDT) Magnesium 0.76 0.69 - 1.07 mmol/L [facility] Blood 05/14/2023 1:30 AM EDT 05/14/2023 1:35 AM EDT Narrative Resulting Agency Comment Spec In Lab Georges Jacob MD CHEMISTRY ORDERABLES Performing Organization Address [facility] Co de Phone Number [facility] [place] [place] [address] * POCT Glucose (05/13/2023 11:53 PM EDT) Glucose, POC 109 65 - 199 mg/dL [facility] Comment: Supplemental ranges: <140 mg/dL before meals <180 mg/dL all other times of the day Blood 05/13/2023 11:5 3 PM EDT 05/13/2023 11:53 PM EDT Edis Skaggs MD POINT OF CARE TEST O RDERABLES Performing Organization Address City/[facility] Co de Phone Number [facility] [place] [place] [address] * POCT Glucose (05/13/2023 9:25 PM EDT) Glucose, POC 125 65 - 199 mg/dL [facility] Comment: Supplemental ranges: <140 mg/dL before meals <180 mg/dL all other times of the day Blood 05/13/2023 9:25 PM EDT 05/13/2023 9:25 PM EDT Edis Skaggs MD POINT OF CARE TEST O SARAH [facility] [place] [place] [address] * POCT Glucose (05/13/2023 3:37 PM EDT) Glucose, POC 141 65 - 199 mg/dL [facility] Comment: Supplemental ranges: <140 mg/dL before meals <180 mg/dL all other times of the day Blood 05/13/2023 3:37 PM EDT 05/13/2023 3:37 PM EDT Edis Skaggs MD POINT OF CARE TEST O SARAH Performing Organization Address City/[facility]/ZIP Co de Phone Number [facility] [place] [place] [address] * (ABNORMAL) Basic Metabolic Panel (non-fasting) (05/13/2023 12:52 PM EDT) Glucose 118 65 - 199 mg/dL [facility] Comment:Diabetes: >=200 mg/d L plus symptoms Blood Urea Nitrogen 28(H) 10 - 20 mg/dL [facility] Creatinine 1.43 0.80 - 1.50 mg/dL [facility] Sodium 137 135 - 145 mmol/L [facility] Potassium 3.8 3.5 - 5.0 mmol/L [facility] Comment: Please note: ??Patients with WBC >100,000 may have falsely elevated Potassium levels. ??For accurate Potassium quantification in these patients send serum separator tube (gold top) for subsequent determinations. ??Contact the Clinical Chemistry Laboratory if there are any questions. Chloride 99 98 - 107 mmol/L [facility] Carbon Dioxide 29 22 - 31 mmol/L [facility] Anion Gap 9 5 - 15 mmol/L [facility] Calcium 9.3 8.5 - 10.5 mg/dL [facility] Est Glomerular Filtration Rate 54(L) >=60 mL/min/1. 73 m?? [facility] Comment: This patient's estimated [...] and symptoms in addition to eGFR. Blood 05/13/2023 12:5 2 PM EDT 05/13/2023 12:59 PM EDT Narrative Resulting Agency Comment Spec In Lab Ludy Gardner APRN CHEMISTRY ORDERABLES Performing Organization Address City/[facility]/ZIP Co de Phone Number [facility] [place] [place] [address] * POCT Glucose (05/13/2023 11:19 AM EDT) Glucose, POC 175 65 - 199 mg/dL [facility] Comment: Supplemental ranges: <140 mg/dL before meals <180 mg/dL all other times of the day Blood 05/13/2023 11:1 9 AM EDT 05/13/2023 11:19 AM EDT Edis Skaggs MD POINT OF CARE TEST O RDERABLES Performing Organization Address City/[facility]/ZIP Co de Phone Number [facility] [place] [place] [address] * POCT Glucose (05/13/2023 8:59 AM EDT) Glucose, POC 134 65 - 199 mg/dL [facility] Comment: Supplemental ranges: <140 mg/dL before meals <180 mg/dL all other times of the day Blood 05/13/2023 8:59 AM EDT 05/13/2023 8:59 AM EDT Edis Skaggs MD POINT OF CARE TEST O RDERABLES [facility] [place] [place] [address] * (ABNORMAL) Differential, Automated (05/13/2023 4:57 AM EDT) Neutrophil % 71.3 % [facility] Neutrophil Absolute 7.46(H) 1.70 - 6.10 x10(3)/mc L [facility] Lymph % 10.0 % [facility] Lymphocytes Abs 1.0 0.9 - 3.2 x10(3)/ L [facility] Monocyte % 12.3 % [facility] Monocyte Abs 1.3(H) 0.3 - 0.9 x10(3)/mc L [facility] Eos % 5.7 % [facility] Eosinophils Abs 0.6(H) 0.0 - 0.4 x10(3)/ L [facility] Basophil % 0.4 % [facility] Baso Absolute 0.0 0.0 - 0.1 x10(3)/ L [facility] Immature Gran % 0.30 % [facility] Comment: Immature granulocytes(IG's)percentage and absolute count will include metamyelocytes, myelocytes, and promyelocytes. Blood smears from CBCs yielding IG's will be scanned manually for concordance. If this scan disagrees with the automated IG or if promyelocytes are noted, a manual differential will be performed. Immature Gran Absolute 0.03 0.00 - 0.04 x10(3)/mc L [facility] Blood 05/13/2023 4:57 AM EDT 05/13/2023 5:49 AM EDT Narrative Resulting Agency Comment Spec In Lab Nilda Jeronimo OPERATIONS INTERN HEMATOLOGY ORDERAB LES [facility] [place] [place] [address] * (ABNORMAL) Hemogram (05/13/2023 4:57 AM EDT) White Blood Cell 10.5(H) 4.0 - 9.5 x10(3)/mc L [facility] Red Blood Cell 2.99(L) 4.58 - 5.54 x10(6)/mc L [facility] Hemoglobin 9.6(L) 13.7 - 16.5 g/dL [facility] Hematocrit 28.6(L) 40.5 - 48.5 % [facility] Mean Cell Volume 95.7(H) 82.9 - 93.1 fL [facility] Mean Cell Hemoglobin 32.1 27.5 - 32.1 pg [facility] Mean Cell Hemoglobin Concentration 33.6 32.0 - 35.7 g/dL [facility] Platelet 211 145 - 357 x10(3)/mc L [facility] RDW Standard Deviation 51.0(H) 36.0 - 45.0 [facility] RDW coefficient of variation 14.5(H) 11.4 - 13.8 % [facility] Mean Platelet Volume 10.3 7.6 - 12.9 [facility] NRBC% auto 0.0 % [facility] NRBC Absolute 0.000 0.000 - 0.000 x10(3)/mc L [facility] Blood 05/13/2023 4:57 AM EDT 05/13/2023 5:49 AM EDT Narrative Resulting Agency Comment Spec In Lab Nilda Jeronimo OPERATIONS INTERN HEMATOLOGY ORDERAB LES [facility] [place] [place] [address] * Phosphorus (05/13/2023 4:57 AM EDT) Phosphorus 3.5 2.5 - 4.5 mg/dL [facility] Blood 05/13/2023 4:57 AM EDT 05/13/2023 5:49 AM EDT Narrative Resulting Agency Comment Spec In Lab Nilda Jeronimo OPERATIONS INTERN CHEMISTRY ORDERABL ES Performing Organization Address [facility] Co de Phone Number [facility] [place] [place] [address] * Magnesium (05/13/2023 4:57 AM EDT) Magnesium 0.82 0.69 - 1.07 mmol/L [facility] Blood 05/13/2023 4:57 AM EDT 05/13/2023 5:49 AM EDT Narrative Resulting Agency Comment Spec In Lab Nilda Jeronimo OPERATIONS INTERN CHEMISTRY ORDERABL ES Performing Organization Address City/[facility]/ZIP Co de Phone Number [facility] [place] [place] [address] * (ABNORMAL) Basic Metabolic Panel (non-fasting) (05/13/2023 4:57 AM EDT) Glucose 132 65 - 199 mg/dL [facility] Comment:Diabetes: >=200 mg/d L plus symptoms Blood Urea Nitrogen 28(H) 10 - 20 mg/dL [facility] Creatinine 1.42 0.80 - 1.50 mg/dL [facility] Sodium 137 135 - 145 mmol/L [facility] Potassium 4.0 3.5 - 5.0 mmol/L [facility] Comment: Please note: ??Patients with WBC >100,000 may have falsely elevated Potassium levels. ??For accurate Potassium quantification in these patients send serum separator tube (gold top) for subsequent determinations. ??Contact the Clinical Chemistry Laboratory if there are any questions. Chloride 101 98 - 107 mmol/L [facility] Carbon Dioxide 26 22 - 31 mmol/L [facility] Anion Gap 10 5 - 15 mmol/L [facility] Calcium 9.5 8.5 - 10.5 mg/dL [facility] Est Glomerular Filtration Rate 55(L) >=60 mL/min/1. 73 m?? [facility] Comment: This patient's estimated [...] and symptoms in addition to eGFR. Blood 05/13/2023 4:57 AM EDT 05/13/2023 5:49 AM EDT Narrative Resulting Agency Comment Spec In Lab Nilda Jeronimo APRN CHEMISTRY ORDERABL ES [facility] [place] [place] [address] * POCT Glucose (05/13/2023 3:38 AM EDT) Glucose, POC 121 65 - 199 mg/dL [facility] Comment: Supplemental ranges: <140 mg/dL before meals <180 mg/dL all other times of the day Blood 05/13/2023 3:38 AM EDT 05/13/2023 3:38 AM EDT Edis Skaggs MD POINT OF CARE TEST O RDERABLES [facility] [place] [place] [address] * POCT Glucose (05/12/2023 11:13 PM EDT) Glucose, POC 149 65 - 199 mg/dL [facility] Comment: Supplemental ranges: <140 mg/dL before meals <180 mg/dL all other times of the day Blood 05/12/2023 11:1 3 PM EDT 05/12/2023 11:13 PM EDT Edis Skaggs MD POINT OF CARE TEST O SARAH Performing Organization Address City/[facility]/ZIP Co de Phone Number [facility] [place] [place] [address] * POCT Glucose (05/12/2023 8:45 PM EDT) Glucose, POC 131 65 - 199 mg/dL [facility] Comment: Supplemental ranges: <140 mg/dL before meals <180 mg/dL all other times of the day Blood 05/12/2023 8:45 PM EDT 05/12/2023 8:45 PM EDT Edis Skaggs MD POINT OF CARE TEST O SARAH Performing Organization Address [facility]/ZIP Co de Phone Number [facility] [place] [place] [address] * POCT Glucose (05/12/2023 3:45 PM EDT) Glucose, POC 120 65 - 199 mg/dL [facility] Comment: Supplemental ranges: <140 mg/dL before meals <180 mg/dL all other times of the day Blood 05/12/2023 3:45 PM EDT 05/12/2023 3:45 PM EDT Edis Skaggs MD POINT OF CARE TEST O SARAH Performing Organization Address City/[facility] Co de Phone Number [facility] [place] [place] [address] * POCT Glucose (05/12/2023 11:55 AM EDT) Glucose, POC 114 65 - 199 mg/dL [facility] Comment: Supplemental ranges: <140 mg/dL before meals <180 mg/dL all other times of the day Blood 05/12/2023 11:5 5 AM EDT 05/12/2023 11:55 AM EDT Edis Skaggs MD POINT OF CARE TEST O RDERABLES Performing Organization Address City/[facility]/ZIP Co de Phone Number [facility] [place] [place] [address] * Duplex for DVT, Arm, Unilat (05/12/2023 10:35 AM EDT) VB Text Report Department: Vascular Surgery Lab Patient: [id number] (MYLA ACOSTA) CPT: [id number] Referring Physician: ANGY VELA ?? Phone: Indications: Surveillance of brachial vein DVT ? change Findings: RIGHT: There is non-occlusive thrombus in one of the paired brachial veins surrounding the PICC line. Thrombus also identified in the cephalic vein for a focal segment near mid forearm. The basilic vein was not identified due to presence of PICC line and associated dressing along its course. The axillary vein is patent and appears to be fully compressible with no evidence of thrombus. The internal jugular vein is patent and fully compressible with no evidence of thrombus. While compression maneuvers cannot be performed on the subclavian or innominate veins, there is no pulsed Doppler or color Doppler evidence to suggest thrombus in these veins. Interpretation: RIGHT: Acute non-occlusive upper extremity DVT (brachial vein) and superficial vein thrombus (forearm cephalic vein). No evidence of internal jugular vein thrombus. Comparison: No identifiable change when compared to the previous exam on 05/10/2023 (limited exam) and 05/05/2023 where the exam was not limited. Electronically Signed by: IVETTE LAI on 2023-05-12 11:27:53 AM [facility] VB Text Report End of Report [facility] 05/12/2023 10:3 5 AM EDT Angy Vela OPERATIONS INTERN VASCULAR ORDERABLES Performing Organization Address City/[facility]/ZIP Co de Phone Number [facility] * POCT Glucose (05/12/2023 8:53 AM EDT) Glucose, POC 133 65 - 199 mg/dL [facility] Comment: Supplemental ranges: <140 mg/dL before meals <180 mg/dL all other times of the day Blood 05/12/2023 8:53 AM EDT 05/12/2023 8:53 AM EDT Edis Skaggs MD POINT OF CARE TEST O SARAH Performing Organization Address [facility] Co de Phone Number [facility] [place] [place] [address] * POCT Glucose (05/12/2023 6:03 AM EDT) Glucose, POC 106 65 - 199 mg/dL [facility] Comment: Supplemental ranges: <140 mg/dL before meals <180 mg/dL all other times of the day Blood 05/12/2023 6:03 AM EDT 05/12/2023 6:03 AM EDT Edis Skaggs MD POINT OF CARE TEST O SARAH Performing Organization Address [facility] Co de Phone Number [facility] [place] [place] [address] * POCT Glucose (05/12/2023 12:12 AM EDT) Glucose, POC 121 65 - 199 mg/dL [facility] Comment: Supplemental ranges: <140 mg/dL before meals <180 mg/dL all other times of the day Blood 05/12/2023 12:1 2 AM EDT 05/12/2023 12:12 AM EDT Edis Skaggs MD POINT OF CARE TEST O SARAH Performing Organization Address City/[facility]/ZIP Co de Phone Number [facility] [place] [place] [address] * (ABNORMAL) Differential, Automated (05/12/2023 12:04 AM EDT) Neutrophil % 63.1 % [facility] Neutrophil Absolute 3.90 1.70 - 6.10 x10(3)/[facility] Lymph % 14.7 % [facility] Lymphocytes Abs 0.9 0.9 - 3.2 x10(3)/[facility] Monocyte % 13.2 % [facility] Monocyte Abs 0.8 0.3 - 0.9 x10(3)/[facility] Eos % 7.9 % [facility] Eosinophils Abs 0.5(H) 0.0 - 0.4 x10(3)/[facility] Basophil % 0.6 % [facility] Baso Absolute 0.0 0.0 - 0.1 x10(3)/[facility] Immature Gran % 0.50 % [facility] Comment: Immature granulocytes(IG's)percentage and absolute count will include metamyelocytes, myelocytes, and promyelocytes. Blood smears from CBCs yielding IG's will be scanned manually for concordance. If this scan disagrees with the automated IG or if promyelocytes are noted, a manual differential will be performed. Immature Gran Absolute 0.03 0.00 - 0.04 x10(3)/[facility] Blood 05/12/2023 12:0 4 AM EDT 05/12/2023 12:50 AM EDT Narrative Resulting Agency Comment Spec In Lab Annmarie TAFOYA HEMATOLOGY ORDERABLE S [facility] [place] [place] [address] * (ABNORMAL) Hemogram (05/12/2023 12:04 AM EDT) White Blood Cell 6.2 4.0 - 9.5 x10(3)/mc L [facility] Red Blood Cell 3.09(L) 4.58 - 5.54 x10(6)/mc L [facility] Hemoglobin 9.7(L) 13.7 - 16.5 g/dL [facility] Hematocrit 29.9(L) 40.5 - 48.5 % [facility] Mean Cell Volume 96.8(H) 82.9 - 93.1 fL [facility] Mean Cell Hemoglobin 31.4 27.5 - 32.1 pg [facility] Mean Cell Hemoglobin Concentration 32.4 32.0 - 35.7 g/dL [facility] Platelet 227 145 - 357 x10(3)/[facility] RDW Standard Deviation 52.2(H) 36.0 - 45.0 [facility] RDW coefficient of variation 14.6(H) 11.4 - 13.8 % [facility] Mean Platelet Volume 10.7 7.6 - 12.9 [facility] NRBC% auto 0.0 % [facility] NRBC Absolute 0.000 0.000 - 0.000 x10(3)/[facility] Blood 05/12/2023 12:0 4 AM EDT 05/12/2023 12:50 AM EDT Narrative Resulting Agency Comment Spec In Lab Annmarie TAFOYA HEMATOLOGY ORDERABLE S [facility] [place] [place] [address] * Phosphorus (05/12/2023 12:04 AM EDT) Phosphorus 3.5 2.5 - 4.5 mg/dL [facility] Blood 05/12/2023 12:0 4 AM EDT 05/12/2023 12:50 AM EDT Narrative Resulting Agency Comment Spec In Lab Georges Jacob MD CHEMISTRY ORDERABLES [facility] [place] [place] [address] * Magnesium (05/12/2023 12:04 AM EDT) Magnesium 1.04 0.69 - 1.07 mmol/L [facility] Blood 05/12/2023 12:0 4 AM EDT 05/12/2023 12:50 AM EDT Narrative Resulting Agency Comment Spec In Lab Georges Jacob MD CHEMISTRY ORDERABLES Performing Organization Address [facility] Co de Phone Number [facility] [place] [place] [address] * (ABNORMAL) Basic Metabolic Panel (non-fasting) (05/12/2023 12:04 AM EDT) Pathologist [facility] Glucose 145 65 - 199 mg/dL [facility] Comment:Diabetes: >=200 mg/d L plus symptoms Blood Urea Nitrogen 22(H) 10 - 20 mg/dL [facility] Creatinine 1.48 0.80 - 1.50 mg/dL [facility] Sodium 140 135 - 145 mmol/L [facility] Potassium 4.2 3.5 - 5.0 mmol/L [facility] Comment: Please note: ??Patients with WBC >100,000 may have falsely elevated Potassium levels. ??For accurate Potassium quantification in these patients send serum separator tube (gold top) for subsequent determinations. ??Contact the Clinical Chemistry Laboratory if there are any questions. Chloride 104 98 - 107 mmol/L [facility] Carbon Dioxide 27 22 - 31 mmol/L [facility] Anion Gap 9 5 - 15 mmol/L [facility] Calcium 9.4 8.5 - 10.5 mg/dL [facility] Est Glomerular Filtration Rate 52(L) >=60 mL/min/1. 73 m?? [facility] Comment: This patient's estimated [...] and symptoms in addition to eGFR. Blood 05/12/2023 12:0 4 AM EDT 05/12/2023 12:50 AM EDT Narrative Resulting Agency Comment Spec In Lab Angy Vela OPERATIONS INTERN CHEMISTRY ORDERABLES Performing Organization Address [facility] Co de Phone Number [facility] [place] [address] * POCT Glucose (05/11/2023 7:36 PM EDT) Glucose, POC 122 65 - 199 mg/dL [facility] Comment: Supplemental ranges: <140 mg/dL before meals <180 mg/dL all other times of the day Blood 05/11/2023 7:36 PM EDT 05/11/2023 7:36 PM EDT Edis Skaggs MD POINT OF CARE TEST O RDERABLES Performing Organization Address [facility] Co in Phone Number [facility] [place] [place] [address] * Magnesium (05/11/2023 5:49 PM EDT) Magnesium 0.83 0.69 - 1.07 mmol/L [facility] Blood Venous Draw / Unknown 05/11/2023 5:49 PM EDT 05/11/2023 6:00 PM EDT Narrative Resulting Agency Comment Spec In Lab Vignesh Epstein OPERATIONS INTERN CHEMISTRY ORDERABL ES Performing Organization Address [facility]/ZIP Co de Phone Number [facility] [place] [address] * (ABNORMAL) Basic Metabolic Panel (non-fasting) (05/11/2023 5:49 PM EDT) Glucose 132 65 - 199 mg/dL [facility] Comment:Diabetes: >=200 mg/d L plus symptoms Blood Urea Nitrogen 21(H) 10 - 20 mg/dL [facility] Creatinine 1.46 0.80 - 1.50 mg/dL [facility] Sodium 139 135 - 145 mmol/L [facility] Comment:result rechecked-kd Potassium 4.0 3.5 - 5.0 mmol/L [facility] Comment: Please note: ??Patients with WBC >100,000 may have falsely elevated Potassium levels. ??For accurate Potassium quantification in these patients send serum separator tube (gold top) for subsequent determinations. ??Contact the Clinical Chemistry Laboratory if there are any questions. Chloride 103 98 - 107 mmol/L [facility] Comment:result rechecked-kd Carbon Dioxide 28 22 - 31 mmol/L [facility] Anion Gap 8 5 - 15 mmol/L [facility] Calcium 9.7 8.5 - 10.5 mg/dL [facility] Est Glomerular Filtration Rate 53(L) >=60 mL/min/1. 73 m?? [facility] Comment: This patient's estimated [...] and symptoms in addition to eGFR. Blood 05/11/2023 5:49 PM EDT 05/11/2023 5:59 PM EDT Narrative Resulting Agency Comment Spec In Lab Edis Skaggs MD CHEMISTRY ORDERABLES Performing Organization Address City/[facility]/ZIP Co de Phone Number [facility] [place] [place] [address] * POCT Glucose (05/11/2023 4:57 PM EDT) Pathologist [facility] Glucose, POC 116 65 - 199 mg/dL [facility] Comment: Supplemental ranges: <140 mg/dL before meals <180 mg/dL all other times of the day Blood 05/11/2023 4:57 PM EDT 05/11/2023 4:57 PM EDT Edis Skaggs MD POINT OF CARE TEST O RDERABLES Performing Organization Address [facility] Co de Phone Number [facility] [place] [place] [address] * (ABNORMAL) Troponin (05/11/2023 1:45 PM EDT) [facility] Troponin-T, High Sensitivity 28(H) <=22 ng/L [facility] Comment: This patient's troponin T concentration was determined using the Scott 5th Generation troponin T assay. The 99th percentile for Troponin T for this test is 14 ng/L for females, and 22 ng/L for males. According to the fourth universal definition of myocardial infarction, the term acute myocardial infarction should be used when there is acute myocardial injury with clinical evidence of acute myocardial ischemia and with detection of a rise and/or fall of cardiac troponin values with at least one value above the 99th percentile and at least one of the following: - Symptoms of myocardial ischemia; - New ischemic ECG changes; - Development of pathological Q waves; - Imaging evidence of new loss of viable myocardium or new regional wall motion abnormality in a pattern consistent with an ischemic etiology; - Identification of a coronary thrombus by angiography or autopsy (not for type 2 or 3 MIs) Serial measurement of troponin and the change in troponin concentration over time (delta) is crucial for the diagnosis of acute myocardial infarction. Guidance on the interpretation of the new 5th Generation Troponin T values and the delta troponin value can be found in the [facility] Test Catalog Troponin - [facility] Laboratory Test Catalog Reference: Fourth [place] Definition of Myocardial Infarction. Journal of the [place] [employer] 2018;72:1942-2867 Blood 05/11/2023 1:45 PM EDT 05/11/2023 1:52 PM EDT Narrative Resulting Agency Comment Spec In Lab Angy Vela APRN CHEMISTRY ORDERABLES Performing Organization Address [facility]/ZIP Co de Phone Number [facility] [place] [address] * POCT Glucose (05/11/2023 12:17 PM EDT) Glucose, POC 136 65 - 199 mg/dL [facility] Comment: Supplemental ranges: <140 mg/dL before meals <180 mg/dL all other times of the day Blood 05/11/2023 12:1 7 PM EDT 05/11/2023 12:17 PM EDT Edis Skaggs MD POINT OF CARE TEST O RDERABLES Performing Organization Address [facility]/ZIP Co de Phone Number [facility] [place] [place] [address] * (ABNORMAL) Basic Metabolic Panel (non-fasting) (05/11/2023 10:43 AM EDT) Glucose 276(H) 65 - 199 mg/dL [facility] Comment:Diabetes: >=200 mg/d L plus symptoms Blood Urea Nitrogen 18 10 - 20 mg/dL [facility] Creatinine 1.50 0.80 - 1.50 mg/dL [facility] Sodium 126(L) 135 - 145 mmol/L [facility] Potassium 4.9 3.5 - 5.0 mmol/L [facility] Comment: Please note: ??Patients with WBC >100,000 may have falsely elevated Potassium levels. ??For accurate Potassium quantification in these patients send serum separator tube (gold top) for subsequent determinations. ??Contact the Clinical Chemistry Laboratory if there are any questions. Chloride 94(L) 98 - 107 mmol/L [facility] Carbon Dioxide 24 22 - 31 mmol/L [facility] Anion Gap 8 5 - 15 mmol/L [facility] Calcium 9.0 8.5 - 10.5 mg/dL [facility] Est Glomerular Filtration Rate 51(L) >=60 mL/min/1. 73 m?? [facility] Comment: This patient's estimated [...] and symptoms in addition to eGFR. Blood Venous Draw / Unknown 05/11/2023 10:43 AM EDT 05/11/2023 11:00 AM EDT Narrative Resulting Agency Comment Spec In Lab Angy Vela APRN CHEMISTRY ORDERABLES [facility] [place] [place] [address] * (ABNORMAL) Troponin (05/11/2023 10:43 AM EDT) Troponin-T, High Sensitivity 29(H) <=22 ng/L [facility] Comment: This patient's troponin T concentration was determined using the Scott 5th Generation troponin T assay. The 99th percentile for Troponin T for this test is 14 ng/L for females, and 22 ng/L for males. According to the fourth universal definition of myocardial infarction, the term acute myocardial infarction should be used when there is acute myocardial injury with clinical evidence of acute myocardial ischemia and with detection of a rise and/or fall of cardiac troponin values with at least one value above the 99th percentile and at least one of the following: - Symptoms of myocardial ischemia; - New ischemic ECG changes; - Development of pathological Q waves; - Imaging evidence of new loss of viable myocardium or new regional wall motion abnormality in a pattern consistent with an ischemic etiology; - Identification of a coronary thrombus by angiography or autopsy (not for type 2 or 3 MIs) Serial measurement of troponin and the change in troponin concentration over time (delta) is crucial for the diagnosis of acute myocardial infarction. Guidance on the interpretation of the new 5th Generation Troponin T values and the delta troponin value can be found in the [facility] Test Catalog Troponin - [facility] Test Catalog Reference: Fourth [place] Definition of Myocardial Infarction. Journal of the [place] [employer] 2018;72:1312-3433 Blood 05/11/2023 10:4 3 AM EDT 05/11/2023 10:50 AM EDT Narrative Resulting Agency Comment Spec In Lab Angy Vela APRN CHEMISTRY ORDERABLES [facility] [place] [address] * (ABNORMAL) Troponin (05/11/2023 1:53 AM EDT) Troponin-T, High Sensitivity 26(H) <=22 ng/L [facility] Comment: This patient's troponin T concentration was determined using the Scott 5th Generation troponin T assay. The 99th percentile for Troponin T for this test is 14 ng/L for females, and 22 ng/L for males. According to the fourth universal definition of myocardial infarction, the term acute myocardial infarction should be used when there is acute myocardial injury with clinical evidence of acute myocardial ischemia and with detection of a rise and/or fall of cardiac troponin values with at least one value above the 99th percentile and at least one of the following: - Symptoms of myocardial ischemia; - New ischemic ECG changes; - Development of pathological Q waves; - Imaging evidence of new loss of viable myocardium or new regional wall motion abnormality in a pattern consistent with an ischemic etiology; - Identification of a coronary thrombus by angiography or autopsy (not for type 2 or 3 MIs) Serial measurement of troponin and the change in troponin concentration over time (delta) is crucial for the diagnosis of acute myocardial infarction. Guidance on the interpretation of the new 5th Generation Troponin T values and the delta troponin value can be found in the [facility] Test Catalog Troponin - [facility] Test Catalog Reference: Fourth [place] Definition of Myocardial Infarction. Journal of the [place] [employer] 2018;72:[id number] Blood Venous Draw / Unknown 05/11/2023 1:53 AM EDT 05/11/2023 2:03 AM EDT Narrative Resulting Agency Comment Spec In Lab Angy Vela APRN CHEMISTRY ORDERABLES Performing Organization Address City/[facility]/ZIP Co de Phone Number [facility] [place] [address] * Osmolality (05/11/2023 1:53 AM EDT) Osmolality 294 275 - 295 mOsm/kg [facility] Blood Venous Draw / Unknown 05/11/2023 1:53 AM EDT 05/11/2023 2:03 AM EDT Narrative Resulting Agency Comment Spec In Lab Angy Vela APRN CHEMISTRY ORDERABLES Performing Organization Address City/[facility] Co de Phone Number [facility] [place] [place] [address] * (ABNORMAL) Differential, Automated (05/11/2023 1:53 AM EDT) Neutrophil % 54.1 % [facility] Neutrophil Absolute 3.03 1.70 - 6.10 x10(3)/mc L [facility] Lymph % 19.3 % [facility] Lymphocytes Abs 1.1 0.9 - 3.2 x10(3)/mc L [facility] Monocyte % 15.4 % [facility] Monocyte Abs 0.9 0.3 - 0.9 x10(3)/mc L [facility] Eos % 9.8 % [facility] Eosinophils Abs 0.6(H) 0.0 - 0.4 x10(3)/mc L [facility] Basophil % 0.7 % [facility] Baso Absolute 0.0 0.0 - 0.1 x10(3)/mc L [facility] Immature Gran % 0.70 % [facility] Comment: Immature granulocytes(IG's)percentage and absolute count will include metamyelocytes, myelocytes, and promyelocytes. Blood smears from CBCs yielding IG's will be scanned manually for concordance. If this scan disagrees with the automated IG or if promyelocytes are noted, a manual differential will be performed. Immature Gran Absolute 0.04 0.00 - 0.04 x10(3)/ L [facility] Blood 05/11/2023 1:53 AM EDT 05/11/2023 2:02 AM EDT Narrative Resulting Agency Comment Spec In Lab Annmarie TAFOYA HEMATOLOGY ORDERABLE S Performing Organization Address City/State/[facility] Co de Phone Number [facility] [place] [address] * (ABNORMAL) Hemogram (05/11/2023 1:53 AM EDT) White Blood Cell 5.6 4.0 - 9.5 x10(3)/ L [facility] Red Blood Cell 2.99(L) 4.58 - 5.54 x10(6)/mc L [facility] Hemoglobin 10.1(L) 13.7 - 16.5 g/dL [facility] Hematocrit 28.7(L) 40.5 - 48.5 % [facility] Mean Cell Volume 96.0(H) 82.9 - 93.1 fL [facility] Mean Cell Hemoglobin 33.8(H) 27.5 - 32.1 pg [facility] Mean Cell Hemoglobin Concentration 35.2 32.0 - 35.7 g/dL [facility] Platelet 209 145 - 357 x10(3)/ L [facility] RDW Standard Deviation 50.1(H) 36.0 - 45.0 fL [facility] RDW coefficient of variation 14.3(H) 11.4 - 13.8 % [facility] Mean Platelet Volume 10.2 7.6 - 12.9 fL [facility] NRBC% auto 0.0 % [facility] NRBC Absolute 0.000 0.000 - 0.000 x10(3)/mc L [facility] Blood 05/11/2023 1:53 AM EDT 05/11/2023 2:02 AM EDT Narrative Resulting Agency Comment Spec In Lab Annmarie TAFOYA HEMATOLOGY ORDERABLE S Performing Organization Address [facility]/ZIP Co de Phone Number [facility] [place] [address] * Phosphorus (05/11/2023 1:53 AM EDT) Phosphorus 3.9 2.5 - 4.5 mg/dL [facility] Blood 05/11/2023 1:53 AM EDT 05/11/2023 2:02 AM EDT Narrative Resulting Agency Comment Spec In Lab Georges Jacob MD CHEMISTRY ORDERABLES Performing Organization Address [facility] Co de Phone Number [facility] [place] [address] * (ABNORMAL) Magnesium (05/11/2023 1:53 AM EDT) Magnesium 0.64(L) 0.69 - 1.07 mmol/L [facility] Blood 05/11/2023 1:53 AM EDT 05/11/2023 2:02 AM EDT Narrative Resulting Agency Comment Spec In Lab Georges Jacob MD CHEMISTRY ORDERABLES Performing Organization Address [facility]/ZIP Co de Phone Number [facility] [place] [address] * (ABNORMAL) Basic Metabolic Panel (non-fasting) (05/11/2023 1:53 AM EDT) Glucose 186 65 - 199 mg/dL [facility] Comment:Diabetes: >=200 mg/d L plus symptoms Blood Urea Nitrogen 17 10 - 20 mg/dL [facility] Creatinine 1.47 0.80 - 1.50 mg/dL [facility] Sodium 133(L) 135 - 145 mmol/L [facility] Potassium 3.9 3.5 - 5.0 mmol/L [facility] Comment: Please note: ??Patients with WBC >100,000 may have falsely elevated Potassium levels. ??For accurate Potassium quantification in these patients send serum separator tube (gold top) for subsequent determinations. ??Contact the Clinical Chemistry Laboratory if there are any questions. Chloride 98 98 - 107 mmol/L [facility] Carbon Dioxide 24 22 - 31 mmol/L [facility] Anion Gap 11 5 - 15 mmol/L [facility] Calcium 9.2 8.5 - 10.5 mg/dL [facility] Est Glomerular Filtration Rate 53(L) >=60 mL/min/1. 73 m?? [facility] Comment: This patient's estimated [...] and symptoms in addition to eGFR. Blood 05/11/2023 1:53 AM EDT 05/11/2023 2:02 AM EDT Narrative Resulting Agency Comment Spec In Lab Angy Vela APRN CHEMISTRY ORDERABLES [facility] [place] [address] * Potassium (05/10/2023 7:50 PM EDT) Potassium 4.1 3.5 - 5.0 mmol/L [facility] Comment: Please note: ??Patients with WBC >100,000 may have falsely elevated Potassium levels. ??For accurate Potassium quantification in these patients send serum separator tube (gold top) for subsequent determinations. ??Contact the Clinical Chemistry Laboratory if there are any questions. Blood 05/10/2023 7:50 PM EDT 05/10/2023 8:01 PM EDT Narrative Resulting Agency Comment Spec In Lab Georges Jacob MD CHEMISTRY ORDERABLES Performing Organization Address City/[facility]/ZIP Co de Phone Number [facility] [place] [address] * Sodium, urine, random (05/10/2023 11:34 AM EDT) Sodium, Urine 74 mmol/L [facility] Urine 05/10/2023 11:3 4 AM EDT 05/10/2023 11:47 AM EDT Narrative Resulting Agency Comment Spec In Lab Angy Vela APRN URINE ORDERABLES Performing Organization Address [facility] Co de Phone Number [facility] [place] [address] * Specific [place], Urine (05/10/2023 11:34 AM EDT) Specific [place] Urine Automated 1.009 1.005 - 1.030 [facility] Urine 05/10/2023 11:3 4 AM EDT 05/10/2023 11:47 AM EDT Narrative Resulting Agency Comment Spec In Lab Angy Vela APRN URINE ORDERABLES Performing Organization Address [facility] Co de Phone Number [facility] [place] [address] * Chloride, urine, random (05/10/2023 11:34 AM EDT) Chloride, Urine 75 mmol/L [facility] Urine 05/10/2023 11:3 4 AM EDT 05/10/2023 11:47 AM EDT Narrative Resulting Agency Comment Spec In Lab Angytnaa Vela ZEESHAN URINE ORDERABLES Performing Organization Address [facility]/ZIP Co de Phone Number [facility] [place] [address] * Osmolality, urine, random (05/10/2023 11:34 AM EDT) Osmolality, Urine 293 50 - 1,200 mOsm/kg [facility] Urine 05/10/2023 11:3 4 AM EDT 05/10/2023 11:47 AM EDT Narrative Resulting Agency Comment Spec In Lab Angy Vela APRN URINE ORDERABLES Performing Organization Address [facility] Co de Phone Number [facility] [place] [address] * (ABNORMAL) Basic Metabolic Panel (non-fasting) (05/10/2023 11:20 AM EDT) Glucose 129 65 - 199 mg/dL [facility] Comment:Diabetes: >=200 mg/d L plus symptoms Blood Urea Nitrogen 17 10 - 20 mg/dL [facility] Creatinine 1.88(H) 0.80 - 1.50 mg/dL [facility] Sodium 135 135 - 145 mmol/L [facility] Potassium 4.4 3.5 - 5.0 mmol/L [facility] Comment: Please note: ??Patients with WBC >100,000 may have falsely elevated Potassium levels. ??For accurate Potassium quantification in these patients send serum separator tube (gold top) for subsequent determinations. ??Contact the Clinical Chemistry Laboratory if there are any questions. Chloride 101 98 - 107 mmol/L [facility] Carbon Dioxide 24 22 - 31 mmol/L [facility] Anion Gap 10 5 - 15 mmol/L [facility] Calcium 10.0 8.5 - 10.5 mg/dL [facility] Est Glomerular Filtration Rate 39(L) >=60 mL/min/1. 73 m?? [facility] Comment: This patient's estimated [...] and symptoms in addition to eGFR. Blood 05/10/2023 11:2 0 AM EDT 05/10/2023 11:28 AM EDT Narrative Resulting Agency Comment Spec In Lab Angy Veal OPERATIONS INTERN CHEMISTRY ORDERABLES [facility] [place] [id number] * Duplex for DVT, Arm, Unilat (05/10/2023 10:20 AM EDT) VB Text Report Department: Vascular Surgery Lab [facility]: [id number] [facility] CPT: [id number] Referring Physician: ANGY VELA ?? Phone: Indications: F/U PICC associated RUE brachial vein non-occlusive DVT Findings: RIGHT: Unable to visualize/evaluat e the innominate vein and most central portion of the subclavian vein at/near the confluence with the innominate vein due to patient positioning (patient was combative and uncooperative throughout exam). The internal jugular vein is patent and fully compressible with no evidence of thrombus. While compression maneuvers cannot be performed on the subclavian vein, there is no pulsed Doppler or color Doppler evidence to suggest thrombus in this vein where visualized. Unable to thoroughly evaluate the axillary vein with venous compressions, but vein is widely patent by color flow imaging with a normal Doppler waveform. Unable to evaluate the brachial, cephalic and basilic veins (patient was combative and moving the right upper extremity throughout exam). Interpretation: RIGHT: Limited exam. No evidence of internal jugular or subclavian vein DVT was identified. Limited evaluation of a patent axillary vein and unable to evaluate the innominate, brachial, cephalic and basilic veins. Comparison: No identifiable change from previous exam 05/05/23 in the veins that were visualized/evalua tim on today's exam. Electronically Signed by: MEGHAN BILLY on 2023-05-10 01:08:19 PM [facility] VB Text Report End of Report [facility] 05/10/2023 10:2 0 AM EDT Angy Vela APRN VASCULAR ORDERABLES [employer] * (ABNORMAL) Basic Metabolic Panel (non-fasting) (05/10/2023 8:10 AM EDT) Glucose 152 65 - 199 mg/dL [facility] Comment:Diabetes: >=200 mg/d L plus symptoms Blood Urea Nitrogen 17 10 - 20 mg/dL [facility] Creatinine 1.83(H) 0.80 - 1.50 mg/dL [facility] Sodium 132(L) 135 - 145 mmol/L [facility] Potassium 3.9 3.5 - 5.0 mmol/L [facility] Comment: Please note: ??Patients with WBC >100,000 may have falsely elevated Potassium levels. ??For accurate Potassium quantification in these patients send serum separator tube (gold top) for subsequent determinations. ??Contact the Clinical Chemistry Laboratory if there are any questions. Chloride 100 98 - 107 mmol/L [facility] Carbon Dioxide 23 22 - 31 mmol/L [facility] Anion Gap 9 5 - 15 mmol/L [facility] Calcium 9.6 8.5 - 10.5 mg/dL [facility] Est Glomerular Filtration Rate 40(L) >=60 mL/min/1. 73 m?? [facility] Comment: This patient's estimated [...] and symptoms in addition to eGFR. Blood 05/10/2023 8:10 AM EDT 05/10/2023 8:21 AM EDT Narrative Resulting Agency Comment Spec In Lab Vignesh Epstein APRN CHEMISTRY ORDERABL ES Performing Organization Address [facility] Co de Phone Number [facility] [place] [address] * EKG 12 Lead (05/10/2023 6:07 AM EDT) Ventricular rate 70 BPM MUSE SYSTEM Atrial Rate 70 BPM MUSE SYSTEM P-R Interval 218 ms MUSE SYSTEM QRS Duration 156 ms MUSE SYSTEM Q-T Interval 438 ms MUSE SYSTEM QTC Calculated (Bezet) 473 ms MUSE SYSTEM Calculated P [place] 36 degrees MUSE SYSTEM Calculated R [place] -35 degrees MUSE SYSTEM Calculated T [place] 38 degrees MUSE SYSTEM INTERPRETATION Sinus rhythm with 1st degree A-V block Possible Left atrial enlargement Left axis deviation Right bundle branch block Abnormal ECG When compared with ECG of 09-MAY-2023 10:57, No significant change was found Confirmed by MD ANATOLIY, SONIA ([id number]) on 05/11/2023 1:34:08 PM MUSE SYSTEM 05/10/2023 6:07 AM EDT 05/11/2023 1:34 PM EDT Georges Jacob MD ECG ORDERABLES Performing Organization Address City/[facility]/ZIP Co de Phone Number MUSE SYSTEM * Differential, Automated (05/10/2023 2:50 AM EDT) Pathologist [facility] Neutrophil % 58.8 % [facility] Neutrophil Absolute 3.60 1.70 - 6.10 x10(3)/[facility]AT[facility] Lymph % 18.0 % [facility] Lymphocytes Abs 1.1 0.9 - 3.2 x10(3)/[facility] LABORATORY Monocyte % 15.2 % [facility] Monocyte Abs 0.9 0.3 - 0.9 x10(3)/[facility] LABORATORY Eos % 7.0 % [facility] Eosinophils Abs 0.4 0.0 - 0.4 x10(3)/[facility] LABOR[facility]ORY Basophil % 0.5 % [facility] Baso Absolute 0.0 0.0 - 0.1 x10(3)/[facility] LABORATORY Immature Gran % 0.50 % [facility] Comment: Immature granulocytes(IG's)percentage and absolute count will include metamyelocytes, myelocytes, and promyelocytes. Blood smears from CBCs yielding IG's will be scanned manually for concordance. If this scan disagrees with the automated IG or if promyelocytes are noted, a manual differential will be performed. Immature Gran Absolute 0.03 0.00 - 0.04 x10(3)/[facility] Blood 05/10/2023 2:50 AM EDT 05/10/2023 2:59 AM EDT Narrative Resulting Agency Comment Spec In Lab Annmarie TAFOYA HEMATOLOGY ORDERABLE S [facility] [place] [address] * (ABNORMAL) Hemogram (05/10/2023 2:50 AM EDT) [facility] White Blood Cell 6.1 4.0 - 9.5 x10(3)/mc L [facility] Red Blood Cell 2.92(L) 4.58 - 5.54 x10(6)/mc L [facility] Hemoglobin 10.4(L) 13.7 - 16.5 g/dL [facility] Hematocrit 27.7(L) 40.5 - 48.5 % [facility] Mean Cell Volume 94.9(H) 82.9 - 93.1 fL [facility] Mean Cell Hemoglobin 35.6(H) 27.5 - 32.1 pg [facility] Mean Cell Hemoglobin Concentration 37.5(H) 32.0 - 35.7 g/dL [facility] Platelet 225 145 - 357 x10(3)/mc L [facility] RDW Standard Deviation 52.3(H) 36.0 - 45.0 [facility] LAB[facility]ORY RDW coefficient of variation 14.9(H) 11.4 - 13.8 % [facility] Mean Platelet Volume 10.1 7.6 - 12.9 [facility] LAB[facility]ATORY NRBC% auto 0.0 % [facility] NRBC Absolute 0.000 0.000 - 0.000 x10(3)/ L [facility] Blood 05/10/2023 2:50 AM EDT 05/10/2023 2:59 AM EDT Narrative Resulting Agency Comment Spec In Lab Annmarie TAFOYA HEMATOLOGY ORDERABLE S [facility] [place] [place] [address] * Phosphorus (05/10/2023 2:50 AM EDT) Phosphorus 4.0 2.5 - 4.5 mg/dL [facility] Comment:Specimen ultracentri fuged due to gross lipemia Blood 05/10/2023 2:50 AM EDT 05/10/2023 2:59 AM EDT Narrative Resulting Agency Comment Spec In Lab Georges Jacob MD CHEMISTRY ORDERABLES [facility] [place] [place] [address] * Magnesium (05/10/2023 2:50 AM EDT) Magnesium 0.75 0.69 - 1.07 mmol/L [facility] Blood 05/10/2023 2:50 AM EDT 05/10/2023 2:59 AM EDT Narrative Resulting Agency Comment Spec In Lab Georges Jacob MD CHEMISTRY ORDERABLES Performing Organization Address [facility] Co de Phone Number [facility] [place] [address] * (ABNORMAL) Basic Metabolic Panel (non-fasting) (05/10/2023 2:50 AM EDT) Pathologist [facility] Glucose 151 65 - 199 mg/dL [facility] Comment:Diabetes: >=200 mg/d L plus symptoms Blood Urea Nitrogen 17 10 - 20 mg/dL [facility] Creatinine 1.74(H) 0.80 - 1.50 mg/dL [facility] Sodium 132(L) 135 - 145 mmol/L [facility] Comment:Specimen ultracentri fuged due to gross lipemia Potassium 4.3 3.5 - 5.0 mmol/L [facility] Comment: Specimen ultracentrifuged due to gross lipemia Please note: ??Patients with WBC >100,000 may have falsely elevated Potassium levels. ??For accurate Potassium quantification in these patients send serum separator tube (gold top) for subsequent determinations. ??Contact the Clinical Chemistry Laboratory if there are any questions. Chloride 98 98 - 107 mmol/L [facility] Comment:Specimen ultracentri fuged due to gross lipemia Carbon Dioxide 22 22 - 31 mmol/L [facility] Anion Gap 12 5 - 15 mmol/L [facility] Calcium 9.2 8.5 - 10.5 mg/dL [facility] Est Glomerular Filtration Rate 43(L) >=60 mL/min/1. 73 m?? [facility] Comment: This patient's estimated [...] and symptoms in addition to eGFR. Blood 05/10/2023 2:50 AM EDT 05/10/2023 2:59 AM EDT Narrative Resulting Agency Comment Spec In Lab Edis Skaggs MD CHEMISTRY ORDERABLES Performing Organization Address City/[facility]/ZIP Co de Phone Number [facility] [place] [place] [address] * Potassium (05/09/2023 6:32 PM EDT) Potassium 4.6 3.5 - 5.0 mmol/L [facility] Comment: Please note: ??Patients with WBC >100,000 may have falsely elevated Potassium levels. ??For accurate Potassium quantification in these patients send serum separator tube (gold top) for subsequent determinations. ??Contact the Clinical Chemistry Laboratory if there are any questions. Blood 05/09/2023 6:32 PM EDT 05/09/2023 6:39 PM EDT Narrative Resulting Agency Comment Spec In Lab Georges Jacob MD CHEMISTRY ORDERABLES [facility] [place] [place] [address] * Potassium (05/09/2023 12:54 PM EDT) Potassium 3.9 3.5 - 5.0 mmol/L [facility] Comment: Please note: ??Patients with WBC >100,000 may have falsely elevated Potassium levels. ??For accurate Potassium quantification in these patients send serum separator tube (gold top) for subsequent determinations. ??Contact the Clinical Chemistry Laboratory if there are any questions. Blood 05/09/2023 12:5 4 PM EDT 05/09/2023 1:07 PM EDT Narrative Resulting Agency Comment Spec In Lab Georges Jacob MD CHEMISTRY ORDERABLES Performing Organization Address [facility]/ZIP Co de Phone Number [facility] [place] [place] [address] * EKG 12 Lead (05/09/2023 10:57 AM EDT) Ventricular rate 73 BPM MUSE SYSTEM Atrial Rate 73 BPM MUSE SYSTEM P-R Interval 210 ms MUSE SYSTEM QRS Duration 158 ms MUSE SYSTEM Q-T Interval 428 ms MUSE SYSTEM QTC Calculated (Bezet) 471 ms MUSE SYSTEM Calculated P Phoenix 23 degrees MUSE SYSTEM Calculated R Phoenix -41 degrees MUSE SYSTEM Calculated T Phoenix 18 degrees MUSE SYSTEM INTERPRETATION Sinus rhythm with 1st degree A-V block Left axis deviation Right bundle branch block Abnormal ECG When compared with ECG of 08-MAY-2023 11:03, No significant change was found I personally reviewed the tracing and edited the fellows interpretation Confirmed by fellow MD Justin, Minnie ([id number]) on 05/10/2023 9:12:09 AM Confirmed by MD Boo, Dakota ([id number]) on 05/10/2023 4:16:35 PM MUSE SYSTEM 05/09/2023 10:5 7 AM EDT 05/10/2023 4:16 PM EDT Georges Jacob MD ECG ORDERABLES Performing Organization Address City/[facility]/ZIP Co de Phone Number MUSE SYSTEM * (ABNORMAL) Differential, Automated (05/09/2023 1:02 AM EDT) Neutrophil % 65.7 % [facility] Neutrophil Absolute 3.94 1.70 - 6.10 x10(3)/mc L [facility] Lymph % 11.2 % [facility] Lymphocytes Abs 0.7(L) 0.9 - 3.2 x10(3)/[facility] Monocyte % 14.9 % [facility] Monocyte Abs 0.9 0.3 - 0.9 x10(3)/[facility] Eos % 6.8 % [facility] Eosinophils Abs 0.4 0.0 - 0.4 x10(3)/[facility] Basophil % 0.7 % [facility] Baso Absolute 0.0 0.0 - 0.1 x10(3)/[facility] Immature Gran % 0.70 % [facility] Comment: Immature granulocytes(IG's)percentage and absolute count will include metamyelocytes, myelocytes, and promyelocytes. Blood smears from CBCs yielding IG's will be scanned manually for concordance. If this scan disagrees with the automated IG or if promyelocytes are noted, a manual differential will be performed. Immature Gran Absolute 0.04 0.00 - 0.04 x10(3)/[facility] Blood 05/09/2023 1:02 AM EDT 05/09/2023 1:30 AM EDT Narrative Resulting Agency Comment Spec In Lab Annmarie TAFOYA HEMATOLOGY ORDERABLE S Performing Organization Address City/State/[facility] Co de Phone Number [facility] [place] [address] * (ABNORMAL) Hemogram (05/09/2023 1:02 AM EDT) White Blood Cell 6.0 4.0 - 9.5 x10(3)/[facility] Red Blood Cell 2.92(L) 4.58 - 5.54 x10(6)/[facility] Hemoglobin 10.1(L) 13.7 - 16.5 g/dL [facility] Hematocrit 28.5(L) 40.5 - 48.5 % [facility] Mean Cell Volume 97.6(H) 82.9 - 93.1 fL [facility] Mean Cell Hemoglobin 34.6(H) 27.5 - 32.1 pg [facility] Mean Cell Hemoglobin Concentration 35.4 32.0 - 35.7 g/dL [facility] Platelet 258 145 - 357 x10(3)/mc L [facility] RDW Standard Deviation 53.2(H) 36.0 - 45.0 fL [facility] RDW coefficient of variation 14.8(H) 11.4 - 13.8 % [facility] Mean Platelet Volume 10.1 7.6 - 12.9 fL [facility] NRBC% auto 0.0 % [facility] NRBC Absolute 0.000 0.000 - 0.000 x10(3)/mc L [facility] Blood 05/09/2023 1:02 AM EDT 05/09/2023 1:30 AM EDT Narrative Resulting Agency Comment Spec In Lab Annmarie TAFOYA HEMATOLOGY ORDERABLE S Performing Organization Address City/[facility]/ZIP Co de Phone Number [facility] [place] [place] [address] * Phosphorus (05/09/2023 1:02 AM EDT) Phosphorus 3.2 2.5 - 4.5 mg/dL [facility] Blood 05/09/2023 1:02 AM EDT 05/09/2023 1:30 AM EDT Narrative Resulting Agency Comment Spec In Lab Georges Jacob MD CHEMISTRY ORDERABLES [facility] [place] [place] [address] * Magnesium (05/09/2023 1:02 AM EDT) Magnesium 0.87 0.69 - 1.07 mmol/L [facility] Blood 05/09/2023 1:02 AM EDT 05/09/2023 1:30 AM EDT Narrative Resulting Agency Comment Spec In Lab Georges Jacob MD CHEMISTRY ORDERABLES [facility] [place] [place] [address] * (ABNORMAL) Basic Metabolic Panel (non-fasting) (05/09/2023 1:02 AM EDT) Glucose 164 65 - 199 mg/dL [facility] Comment:Diabetes: >=200 mg/d L plus symptoms Blood Urea Nitrogen 15 10 - 20 mg/dL [facility] Creatinine 1.38 0.80 - 1.50 mg/dL [facility] Sodium 138 135 - 145 mmol/L [facility] Potassium 3.7 3.5 - 5.0 mmol/L [facility] Comment: Please note: ??Patients with WBC >100,000 may have falsely elevated Potassium levels. ??For accurate Potassium quantification in these patients send serum separator tube (gold top) for subsequent determinations. ??Contact the Clinical Chemistry Laboratory if there are any questions. Chloride 104 98 - 107 mmol/L [facility] Carbon Dioxide 23 22 - 31 mmol/L [facility] Anion Gap 11 5 - 15 mmol/L [facility] Calcium 9.2 8.5 - 10.5 mg/dL [facility] Est Glomerular Filtration Rate 57(L) >=60 mL/min/1. 73 m?? [facility] Comment: This patient's estimated [...] and symptoms in addition to eGFR. Blood 05/09/2023 1:02 AM EDT 05/09/2023 1:30 AM EDT Narrative Resulting Agency Comment Spec In Lab Edis Skaggs MD CHEMISTRY ORDERABLES Performing Organization Address City/[facility]/ZIP Co de Phone Number [facility] [place] [place] [address] * Potassium (05/08/2023 8:27 PM EDT) Potassium 4.0 3.5 - 5.0 mmol/L [facility] Comment: Please note: ??Patients with WBC >100,000 may have falsely elevated Potassium levels. ??For accurate Potassium quantification in these patients send serum separator tube (gold top) for subsequent determinations. ??Contact the Clinical Chemistry Laboratory if there are any questions. Blood 05/08/2023 8:27 PM EDT 05/08/2023 8:37 PM EDT Narrative Resulting Agency Comment Spec In Lab Georges Jacob MD CHEMISTRY ORDERABLES Performing Organization Address [facility] Co de Phone Number [facility] [place] [place] [address] * Potassium (05/08/2023 12:30 PM EDT) Potassium 3.8 3.5 - 5.0 mmol/L [facility] Comment: Please note: ??Patients with WBC >100,000 may have falsely elevated Potassium levels. ??For accurate Potassium quantification in these patients send serum separator tube (gold top) for subsequent determinations. ??Contact the Clinical Chemistry Laboratory if there are any questions. Blood 05/08/2023 12:3 0 PM EDT 05/08/2023 12:47 PM EDT Narrative Resulting Agency Comment Spec In Lab Georges Jacbo MD CHEMISTRY ORDERABLES Performing Organization Address City/[facility]/ZIP Co de Phone Number [facility] [place] [place] [address] * EKG 12 Lead (05/08/2023 11:03 AM EDT) Ventricular rate 67 BPM MUSE SYSTEM Atrial Rate 67 BPM MUSE SYSTEM P-R Interval 204 ms MUSE SYSTEM QRS Duration 164 ms MUSE SYSTEM Q-T Interval 474 ms MUSE SYSTEM QTC Calculated (Bezet) 500 ms MUSE SYSTEM Calculated P Phoenix 27 degrees MUSE SYSTEM Calculated R Phoenix -39 degrees MUSE SYSTEM Calculated T Phoenix 9 degrees MUSE SYSTEM INTERPRETATION Normal sinus rhythm Left axis deviation Right bundle branch block Abnormal ECG When compared with ECG of 27-APR-2023 16:00, No significant change was found Confirmed by Kyle Whaley MD ([id number]) on 05/08/2023 8:13:27 PM MUSE SYSTEM 05/08/2023 11:0 3 AM EDT 05/08/2023 8:13 PM EDT Angy Vela APRN ECG ORDERABLES MUSE SYSTEM * (ABNORMAL) Differential, Automated (05/08/2023 1:36 AM EDT) Neutrophil % 66.0 % [facility] Neutrophil Absolute 4.21 1.70 - 6.10 x10(3)/mc L [facility] Lymph % 11.4 % [facility] Lymphocytes Abs 0.7(L) 0.9 - 3.2 x10(3)/mc L [facility] Monocyte % 13.3 % [facility] Monocyte Abs 0.8 0.3 - 0.9 x10(3)/mc L [facility] Eos % 8.1 % [facility] Eosinophils Abs 0.5(H) 0.0 - 0.4 x10(3)/mc L [facility] Basophil % 0.6 % [facility] Baso Absolute 0.0 0.0 - 0.1 x10(3)/mc L [facility] Immature Gran % 0.60 % [facility] Comment: Immature granulocytes(IG's)percentage and absolute count will include metamyelocytes, myelocytes, and promyelocytes. Blood smears from CBCs yielding IG's will be scanned manually for concordance. If this scan disagrees with the automated IG or if promyelocytes are noted, a manual differential will be performed. Immature Gran Absolute 0.04 0.00 - 0.04 x10(3)/mc L [facility] Blood 05/08/2023 1:36 AM EDT 05/08/2023 1:53 AM EDT Narrative Resulting Agency Comment Spec In Lab Annmarie TAFOYA HEMATOLOGY ORDERABLE S Performing Organization Address City/State/[facility] Co de Phone Number [facility] [place] [address] * (ABNORMAL) Hemogram (05/08/2023 1:36 AM EDT) White Blood Cell 6.4 4.0 - 9.5 x10(3)/mc L [facility] Red Blood Cell 3.27(L) 4.58 - 5.54 x10(6)/mc L [facility] Hemoglobin 10.3(L) 13.7 - 16.5 g/dL [facility] Hematocrit 31.3(L) 40.5 - 48.5 % [facility] Mean Cell Volume 95.7(H) 82.9 - 93.1 fL [facility] Mean Cell Hemoglobin 31.5 27.5 - 32.1 pg [facility] Mean Cell Hemoglobin Concentration 32.9 32.0 - 35.7 g/dL [facility] Platelet 258 145 - 357 x10(3)/mc L [facility] RDW Standard Deviation 51.6(H) 36.0 - 45.0 fL [facility] RDW coefficient of variation 14.6(H) 11.4 - 13.8 % [facility] Mean Platelet Volume 10.0 7.6 - 12.9 fL [facility] NRBC% auto 0.0 % [facility] NRBC Absolute 0.000 0.000 - 0.000 x10(3)/mc L [facility] Blood 05/08/2023 1:36 AM EDT 05/08/2023 1:53 AM EDT Narrative Resulting Agency Comment Spec In Lab Annmarie TAFOYA HEMATOLOGY ORDERABLE S [facility] [place] [place] [address] * Phosphorus (05/08/2023 1:36 AM EDT) Phosphorus 3.1 2.5 - 4.5 mg/dL [facility] Blood 05/08/2023 1:36 AM EDT 05/08/2023 1:52 AM EDT Narrative Resulting Agency Comment Spec In Lab Georges Jacob MD CHEMISTRY ORDERABLES Performing Organization Address City/[facility]/ZIP Co de Phone Number [facility] [place] [place] [address] * Magnesium (05/08/2023 1:36 AM EDT) Magnesium 0.72 0.69 - 1.07 mmol/L [facility] Blood 05/08/2023 1:36 AM EDT 05/08/2023 1:52 AM EDT Narrative Resulting Agency Comment Spec In Lab Georges Jacob MD CHEMISTRY ORDERABLES Performing Organization Address City/[facility]/ZIP Co de Phone Number [facility] [place] [place] [address] * (ABNORMAL) Basic Metabolic Panel (non-fasting) (05/08/2023 1:36 AM EDT) Glucose 137 65 - 199 mg/dL [facility] Comment:Diabetes: >=200 mg/d L plus symptoms Blood Urea Nitrogen 21(H) 10 - 20 mg/dL [facility] Creatinine 1.43 0.80 - 1.50 mg/dL [facility] Sodium 141 135 - 145 mmol/L [facility] Potassium 3.8 3.5 - 5.0 mmol/L [facility] Comment: Please note: ??Patients with WBC >100,000 may have falsely elevated Potassium levels. ??For accurate Potassium quantification in these patients send serum separator tube (gold top) for subsequent determinations. ??Contact the Clinical Chemistry Laboratory if there are any questions. Chloride 108(H) 98 - 107 mmol/L [facility] Carbon Dioxide 23 22 - 31 mmol/L [facility] Anion Gap 10 5 - 15 mmol/L [facility] Calcium 10.0 8.5 - 10.5 mg/dL [facility] Est Glomerular Filtration Rate 54(L) >=60 mL/min/1. 73 m?? [facility] Comment: This patient's estimated [...] and symptoms in addition to eGFR. Blood 05/08/2023 1:36 AM EDT 05/08/2023 1:52 AM EDT Narrative Resulting Agency Comment Spec In Lab Edis Skaggs MD CHEMISTRY ORDERABLES [facility] [place] [place] [address] * U24 Hrs and Volume (05/07/2023 12:30 PM EDT) [facility] Hours Collected 24 hour(s) [facility] Total Volume 3,750 mL [facility] Urine 05/07/2023 12:3 0 PM EDT 05/07/2023 12:38 PM EDT Narrative Resulting Agency Comment Spec In Lab Brian TAFOYA CHEMISTRY ORDERABLES Performing Organization Address [facility]/State/ZIP Co de Phone Number [facility] [place] [place] [address] * (ABNORMAL) Metanephrines, Fractionated, urine, 24 hour (05/07/2023 12:30 PM EDT) U24 Metanephrine s,Frac (MAY) Test ? Result ?Flag ??Unit ?RefValue ------- Metanephrines, Fractionated, 24h, U ??Metanephrine, U ?469 ?H ?mcg/24 h ? ---REFERENCE VALUE ?[id number] (Normotensive) ?<400 (Hypertensive) ??Normetanephrine, U ? 848 ? mcg/24 h ? ---REFERENCE VALUE ?[id number] (Normotensive) ?<900 (Hypertensive) ??Total Metanephrines, U ? 1317 ? H ?mcg/24 h ? ---REFERENCE VALUE ?[id number] (Normotensive) ?<1300 (Hypertensive) ??Collection Duration ?24 ?h ??Urine Volume ? 3750 ?mL ? ---ADDITIONAL INFORMATION------- ?This test was developed and its performance characteristics ?determined by [facility] in a manner consistent with CLIA ?requirements. This test has not been cleared or approved by ?the U.[place]. Food and Drug Administration. ?Test Performed by: ?[facility] ?[address] [id number] ?Dynamometer Tester Engine: Ned Mixon M.D. Ph.D.; CLIA# [id number]) [facility] Urine 05/07/2023 12:3 0 PM EDT 05/08/2023 11:43 AM EDT Narrative Resulting Agency Comment Spec In Lab Tana Smith MD LAB SEND OUT ORDERAB LES Performing Organization Address City/[facility]/ZIP Co de Phone Number [facility] [place] [place] [address] * Triglyceride (05/07/2023 1:10 AM EDT) Pathologist [facility] Triglyceride 194 mg/dL [facility] Comment: Normal: ?<150 mg/dL Borderline High: 150-199 mg/dL High: ?200-499 mg/dL Very High: ? >av=543 mg/dL Blood Venous Draw / Unknown 05/07/2023 1:10 AM EDT 05/07/2023 1:46 AM EDT Narrative Resulting Agency Comment Spec In Lab Savana Romero OPERATIONS INTERN CHEMISTRY ORDERAB LES Performing Organization Address [facility] Co de Phone Number [facility] [place] [address] * (ABNORMAL) Differential, Automated (05/07/2023 1:10 AM EDT) [facility] Neutrophil % 63.6 % [facility] Neutrophil Absolute 4.04 1.70 - 6.10 x10(3)/mc L [facility] Lymph % 11.9 % [facility] Lymphocytes Abs 0.8(L) 0.9 - 3.2 x10(3)/mc L [facility] Monocyte % 14.3 % [facility] Monocyte Abs 0.9 0.3 - 0.9 x10(3)/mc L [facility] Eos % 8.0 % [facility] Eosinophils Abs 0.5(H) 0.0 - 0.4 x10(3)/mc L [facility] Basophil % 0.6 % [facility] Baso Absolute 0.0 0.0 - 0.1 x10(3)/mc L [facility] Immature Gran % 1.60 % [facility] Comment: Immature granulocytes(IG's)percentage and absolute count will include metamyelocytes, myelocytes, and promyelocytes. Blood smears from CBCs yielding IG's will be scanned manually for concordance. If this scan disagrees with the automated IG or if promyelocytes are noted, a manual differential will be performed. Immature Gran Absolute 0.10(H) 0.00 - 0.04 x10(3)/ L [facility] Blood 05/07/2023 1:10 AM EDT 05/07/2023 1:40 AM EDT Narrative Resulting Agency Comment Spec In Lab Annmarie TAFOYA HEMATOLOGY ORDERABLE S [facility] [place] [place] [address] * (ABNORMAL) Hemogram (05/07/2023 1:10 AM EDT) White Blood Cell 6.4 4.0 - 9.5 x10(3)/ L [facility] Red Blood Cell 2.97(L) 4.58 - 5.54 x10(6)/[facility] Hemoglobin 9.2(L) 13.7 - 16.5 g/dL [facility] Hematocrit 28.3(L) 40.5 - 48.5 % [facility] Mean Cell Volume 95.3(H) 82.9 - 93.1 fL [facility] Mean Cell Hemoglobin 31.0 27.5 - 32.1 pg [facility] Mean Cell Hemoglobin Concentration 32.5 32.0 - 35.7 g/dL [facility] Platelet 298 145 - 357 x10(3)/ L [facility] RDW Standard Deviation 50.4(H) 36.0 - 45.0 [facility] RDW coefficient of variation 14.5(H) 11.4 - 13.8 % [facility] Mean Platelet Volume 10.4 7.6 - 12.9 [facility] NRBC% auto 0.0 % [facility] NRBC Absolute 0.000 0.000 - 0.000 x10(3)/mc L [facility] Blood 05/07/2023 1:10 AM EDT 05/07/2023 1:40 AM EDT Narrative Resulting Agency Comment Spec In Lab Annmarie TAFOYA HEMATOLOGY ORDERABLE S [facility] [place] [place] [address] * Phosphorus (05/07/2023 1:10 AM EDT) Phosphorus 4.2 2.5 - 4.5 mg/dL [facility] Blood 05/07/2023 1:10 AM EDT 05/07/2023 1:40 AM EDT Narrative Resulting Agency Comment Spec In Lab Georges Jacob MD CHEMISTRY ORDERABLES Performing Organization Address City/[facility]/ZIP Co de Phone Number [facility] [place] [place] [address] * Magnesium (05/07/2023 1:10 AM EDT) Magnesium 0.84 0.69 - 1.07 mmol/L [facility] Blood 05/07/2023 1:10 AM EDT 05/07/2023 1:40 AM EDT Narrative Resulting Agency Comment Spec In Lab Georges Jacob MD CHEMISTRY ORDERABLES Performing Organization Address City/[facility]/ZIP Co de Phone Number [facility] [place] [place] [address] * (ABNORMAL) Basic Metabolic Panel (non-fasting) (05/07/2023 1:10 AM EDT) Glucose 108 65 - 199 mg/dL [facility] Comment:Diabetes: >=200 mg/d L plus symptoms Blood Urea Nitrogen 33(H) 10 - 20 mg/dL [facility] Creatinine 1.85(H) 0.80 - 1.50 mg/dL [facility] Sodium 142 135 - 145 mmol/L [facility] Comment:result rechecked- Potassium 4.0 3.5 - 5.0 mmol/L [facility] Comment: Please note: ??Patients with WBC >100,000 may have falsely elevated Potassium levels. ??For accurate Potassium quantification in these patients send serum separator tube (gold top) for subsequent determinations. ??Contact the Clinical Chemistry Laboratory if there are any questions. Chloride 109(H) 98 - 107 mmol/L [facility] Carbon Dioxide 22 22 - 31 mmol/L [facility] Anion Gap 11 5 - 15 mmol/L [facility] Calcium 9.8 8.5 - 10.5 mg/dL [facility] Comment:result rechecked-GH Est Glomerular Filtration Rate 40(L) >=60 mL/min/1. 73 m?? [facility] Comment: This patient's estimated [...] and symptoms in addition to eGFR. Blood 05/07/2023 1:10 AM EDT 05/07/2023 1:40 AM EDT Narrative Resulting Agency Comment Spec In Lab Edis Skaggs MD CHEMISTRY ORDERABLES [facility] [place] [place] [address] * Potassium (05/06/2023 2:44 PM EDT) Potassium 4.1 3.5 - 5.0 mmol/L [facility] Comment: Please note: ??Patients with WBC >100,000 may have falsely elevated Potassium levels. ??For accurate Potassium quantification in these patients send serum separator tube (gold top) for subsequent determinations. ??Contact the Clinical Chemistry Laboratory if there are any questions. Blood 05/06/2023 2:44 PM EDT 05/06/2023 2:47 PM EDT Narrative Resulting Agency Comment Spec In Lab Georges Jacob MD CHEMISTRY ORDERABLES Performing Organization Address City/[facility]/ZIP Co de Phone Number [facility] [place] [address] * (ABNORMAL) Lipase (05/06/2023 10:50 AM EDT) Lipase 105(H) 0 - 60 unit/L [facility] Blood 05/06/2023 10:5 0 AM EDT 05/06/2023 11:07 AM EDT Narrative Resulting Agency Comment Spec In Lab Tana Smith MD CHEMISTRY ORDERABLES Performing Organization Address [facility] Co de Phone Number [facility] [place] [id number] * Triglyceride (05/06/2023 10:50 AM EDT) Triglyceride 292 mg/dL [facility] Comment: Normal: ?<150 mg/dL Borderline High: 150-199 mg/dL High: ?200-499 mg/dL Very High: ? >eg=494 mg/dL Blood 05/06/2023 10:5 0 AM EDT 05/06/2023 11:07 AM EDT Narrative Resulting Agency Comment Spec In Lab Tana Smith MD CHEMISTRY ORDERABLES Performing Organization Address City/[facility]/ZIP Co de Phone Number [facility] [place] [place] [address] * XR Abdomen 1 view (Generic) (05/06/2023 3:38 AM EDT) Anatomical Region Laterality Modality Abdomen N/A Digital Radiogra phy Impressions 05/06/2023 10:16 AM EDT Strict tube in stomach Thank you for letting us participate in the care of this patient. ??If you are a health care provider and have any questions regarding this report, please contact the number below. ??For patients who have questions please contact the health manager managed care that requested your imaging first. ? Electronically signed by: Lisset Brooks MD, [facility] ([phone]), at 05/06/2023 10:16 AM Narrative 05/06/2023 10:16 AM EDT EXAMINATION: XR ABDOMEN 1 VIEW (GENERIC) CLINICAL HISTORY: Verify NG Tube Placement TECHNIQUE: AP supine COMPARISON: 05/05/2023 FINDINGS: The feeding tube is been removed and replaced by a gastric tube. Both ports within the stomach. The colon remains mildly distended but improved from prior. Procedure Note Lisset Brooks MD - 05/06/2023 EXAMINATION: XR ABDOMEN 1 VIEW (GENERIC) CLINICAL HISTORY: Verify NG Tube Placement TECHNIQUE: AP supine COMPARISON: 05/05/2023 FINDINGS: The feeding tube is been removed and replaced by a gastric tube. Bothports within the stomach. The colon remains mildly distended but improved fromprior. IMPRESSION Strict tube in stomach Thank you for letting us participate in the care of this patient. If youare a health care provider and have any questions regarding this report,please contact the number below. For patients who have questions please contactthe health manager managed care that requested your imaging first. Nilda Jeronimo ZEESHAN IMG DX ORDERABLES * Lactate, whole blood, send to lab ([facility]) (05/06/2023 2:00 AM EDT) Pathologist [facility] Lactate WB 0.6 0.5 - 2.2 mmol/L [facility] Blood 05/06/2023 2:00 AM EDT 05/06/2023 2:17 AM EDT Narrative Resulting Agency Comment Spec In Lab Nilda Jaimearaceli BYERS CHEMISTRY ORDERABL ES Performing Organization Address [facility]/ZIP Co de Phone Number [facility] [place] [place] [address] * (ABNORMAL) Beta Hydroxybutyrate (05/06/2023 12:30 AM EDT) [facility] Beta-hydroxybuturat e 0.34(H) 0.00 - 0.30 mmol/L [facility] Comment: This test has not been cleared by the [place] FDA. Performance characteristics of this test were determined by [facility] in accordance with CLIA requirements. This laboratory is qualified under CLIA to perform high-complexity testing. Blood Venous Draw / Unknown 05/06/2023 12:30 AM EDT 05/06/2023 12:43 AM EDT Narrative Resulting Agency Comment Spec In Lab Nilda Kingsley Phani BYERS CHEMISTRY ORDERABL ES Performing Organization Address City/[facility]/ZIP Co de Phone Number [facility] [place] [place] [address] * (ABNORMAL) Differential, Automated (05/06/2023 12:30 AM EDT) [facility] Neutrophil % 70.7 % [facility] Neutrophil Absolute 4.81 1.70 - 6.10 x10(3)/mc L [facility] Lymph % 9.7 % [facility] Lymphocytes Abs 0.7(L) 0.9 - 3.2 x10(3)/[facility] Monocyte % 11.5 % [facility] Monocyte Abs 0.8 0.3 - 0.9 x10(3)/[facility] Eos % 6.3 % [facility] Eosinophils Abs 0.4 0.0 - 0.4 x10(3)/[facility] Basophil % 0.3 % [facility] Baso Absolute 0.0 0.0 - 0.1 x10(3)/[facility] Immature Gran % 1.50 % [facility] Comment: Immature granulocytes(IG's)percentage and absolute count will include metamyelocytes, myelocytes, and promyelocytes. Blood smears from CBCs yielding IG's will be scanned manually for concordance. If this scan disagrees with the automated IG or if promyelocytes are noted, a manual differential will be performed. Immature Gran Absolute 0.10(H) 0.00 - 0.04 x10(3)/[facility] Blood 05/06/2023 12:3 0 AM EDT 05/06/2023 12:41 AM EDT Narrative Resulting Agency Comment Spec In Lab Annmarie TAFOYA HEMATOLOGY ORDERABLE S Performing Organization Address City/State/[facility] Co de Phone Number [facility] [place] [place] [address] * (ABNORMAL) Hemogram (05/06/2023 12:30 AM EDT) White Blood Cell 6.8 4.0 - 9.5 x10(3)/[facility] Red Blood Cell 2.78(L) 4.58 - 5.54 x10(6)/[facility] Hemoglobin 9.6(L) 13.7 - 16.5 g/dL [facility] Hematocrit 26.3(L) 40.5 - 48.5 % [facility] Mean Cell Volume 94.6(H) 82.9 - 93.1 fL [facility] Mean Cell Hemoglobin 34.5(H) 27.5 - 32.1 pg [facility] Mean Cell Hemoglobin Concentration 36.5(H) 32.0 - 35.7 g/dL [facility] Platelet 263 145 - 357 x10(3)/mc L [facility] RDW Standard Deviation 49.1(H) 36.0 - 45.0 fL [facility] RDW coefficient of variation 14.2(H) 11.4 - 13.8 % [facility] Mean Platelet Volume 10.0 7.6 - 12.9 [facility] NRBC% auto 0.0 % [facility] NRBC Absolute 0.000 0.000 - 0.000 x10(3)/mc L [facility] Blood 05/06/2023 12:3 0 AM EDT 05/06/2023 12:41 AM EDT Narrative Resulting Agency Comment Spec In Lab Annmarie TAFOYA HEMATOLOGY ORDERABLE S Performing Organization Address City/[facility]/ZIP Co de Phone Number [facility] [place] [address] * Phosphorus (05/06/2023 12:30 AM EDT) Phosphorus 4.5 2.5 - 4.5 mg/dL [facility] Blood 05/06/2023 12:3 0 AM EDT 05/06/2023 12:41 AM EDT Narrative Resulting Agency Comment Spec In Lab Georges Jacob MD CHEMISTRY ORDERABLES Performing Organization Address City/[facility]/ZIP Co de Phone Number [facility] [place] [address] * Magnesium (05/06/2023 12:30 AM EDT) Magnesium 0.85 0.69 - 1.07 mmol/L [facility] Blood 05/06/2023 12:3 0 AM EDT 05/06/2023 12:41 AM EDT Narrative Resulting Agency Comment Spec In Lab Georges Jacob MD CHEMISTRY ORDERABLES [facility] [place] [address] * (ABNORMAL) Basic Metabolic Panel (non-fasting) (05/06/2023 12:30 AM EDT) Glucose 279(H) 65 - 199 mg/dL [facility] Comment:Diabetes: >=200 mg/d L plus symptoms Blood Urea Nitrogen 51(H) 10 - 20 mg/dL [facility] Creatinine 2.16(H) 0.80 - 1.50 mg/dL [facility] Sodium 134(L) 135 - 145 mmol/L [facility] Potassium 3.3(L) 3.5 - 5.0 mmol/L [facility] Comment: Please note: ??Patients with WBC >100,000 may have falsely elevated Potassium levels. ??For accurate Potassium quantification in these patients send serum separator tube (gold top) for subsequent determinations. ??Contact the Clinical Chemistry Laboratory if there are any questions. Chloride 100 98 - 107 mmol/L [facility] Carbon Dioxide 18(L) 22 - 31 mmol/L [facility] Anion Gap 16(H) 5 - 15 mmol/L [facility] Calcium 8.6 8.5 - 10.5 mg/dL [facility] Est Glomerular Filtration Rate 33(L) >=60 mL/min/1. 73 m?? [facility] Comment: This patient's estimated [...] and symptoms in addition to eGFR. Blood 05/06/2023 12:3 0 AM EDT 05/06/2023 12:41 AM EDT Narrative Resulting Agency Comment Spec In Lab Edis Skaggs MD CHEMISTRY ORDERABLES Performing Organization Address [facility] Co de Phone Number [facility] [place] [address] * Triglyceride (05/06/2023 12:30 AM EDT) Triglyceride 1,032 mg/dL [facility] Comment: Normal: ?<150 mg/dL Borderline High: 150-199 mg/dL High: ?200-499 mg/dL Very High: ? >oi=108 mg/dL Blood 05/06/2023 12:3 0 AM EDT 05/06/2023 12:41 AM EDT Narrative Resulting Agency Comment Spec In Lab Nilda Jeronimo APRN CHEMISTRY ORDERABL ES Performing Organization Address [facility] de Phone Number [facility] [place] [address] * Potassium (05/05/2023 1:40 PM EDT) Potassium 3.7 3.5 - 5.0 mmol/L [facility] Comment: Please note: ??Patients with WBC >100,000 may have falsely elevated Potassium levels. ??For accurate Potassium quantification in these patients send serum separator tube (gold top) for subsequent determinations. ??Contact the Clinical Chemistry Laboratory if there are any questions. Blood 05/05/2023 1:40 PM EDT 05/05/2023 1:58 PM EDT Narrative Resulting Agency Comment Spec In Lab Georges Jacob MD CHEMISTRY ORDERABLES [facility] [place] [place] [address] * XR Abdomen 1 view (Generic) (05/05/2023 12:20 PM EDT) Anatomical Region Laterality Modality Abdomen N/A Digital Radiogra phy Impressions 05/05/2023 2:19 PM EDT 1. ??Stable position of enteric tube, projecting within the gastric lumen. 2. ??Partially visualized distended, gas-filled colon. Unchanged compared with radiograph 05/02/2023. I have personally reviewed the image(s) and the resident's interpretation and agree with the findings, Radha Smith MD at 05/05/2023 2:19 PM Thank you for letting us participate in the care of this patient. ??If you are a health care provider and have any questions regarding this report, please contact the number below. ??For patients who have questions please contact the health manager managed care that requested your imaging first. ? Narrative 05/05/2023 2:19 PM EDT EXAMINATION: XR ABDOMEN 1 VIEW (GENERIC) CLINICAL HISTORY: f/u NGT may have been dislodged during extubation TECHNIQUE: AP abdominal radiograph, one view. For the purpose of enteric tube evaluation. COMPARISON: Abdominal radiograph 05/02/2023. FINDINGS: Enteric tube courses caudally, terminates within the gastric lumen. The radiopaque tip is within the region of the antrum. Partially visualized distended loops of colon, unchanged compared with prior radiograph. Procedure Note Radha Smith MD - 05/05/2023 EXAMINATION: XR ABDOMEN 1 VIEW (GENERIC) CLINICAL HISTORY: f/u NGT may have been dislodged during extubation TECHNIQUE: AP abdominal radiograph, one view. For the purpose of enteric tube evaluation. COMPARISON: Abdominal radiograph 05/02/2023. FINDINGS: Enteric tube courses caudally, terminates within the gastric lumen. The radiopaque tip is within the region of the antrum. Partially visualized distended loops of colon, unchanged compared withprior radiograph. IMPRESSION 1. Stable position of enteric tube, projecting within the gastriclumen. 2. Partially visualized distended, gas-filled colon. Unchanged comparedwith radiograph 05/02/2023. I have personally reviewed the image(s) and the resident's interpretationand agree with the findings, Radha Smith MD at 05/05/2023 2:19 PM Thank you for letting us participate in the care of this patient. If youare a health care provider and have any questions regarding this report,please contact the number below. For patients who have questions please contactthe health manager managed care that requested your imaging first. Tana Smith MD IMG DX ORDERABLES * Duplex for DVT, Arm, Unilat (05/05/2023 11:24 AM EDT) VB Text Report Department: Vascular Surgery Lab Patient: [id number] ([facility]) CPT: 90447 Referring Physician: TANA SMITH ?? Phone: Indications: ??Right upper extremity swelling, PICC line. ??? RUE DVT Findings: RIGHT: There is non-occlusive thrombus in one of the paired brachial veins surrounding the PICC line. Thrombus also identified in the cephalic vein for a focal segment near mid forearm. The basilic vein was not identified due to presence of PICC line and associated dressing along its course. The axillary vein is patent and appears to be fully compressible with no evidence of thrombus. The internal jugular vein is patent and fully compressible with no evidence of thrombus. While compression maneuvers cannot be performed on the subclavian or innominate veins, there is no pulsed Doppler or color Doppler evidence to suggest thrombus in these veins. Interpretation: RIGHT: Acute non-occlusive upper extremity DVT (brachial vein) and superficial vein thrombus (forearm cephalic vein). No evidence of internal jugular vein thrombus. Comparison: ?? No previous study in our vascular lab database for comparison. Comment: ??Tiffany Romero APRN was notified of the preliminary findings. Electronically Signed by: TIARRA CARRERA on 2023-05-05 02:20:41 PM [facility] VB Text Report End of Report [facility] 05/05/2023 11:2 4 AM EDT Tana Smith MD VASCULAR ORDERABLES [facility] * (ABNORMAL) Sodium (05/05/2023 5:25 AM EDT) Sodium 130(L) 135 - 145 mmol/L [facility] Blood Venous Draw / Unknown 05/05/2023 5:25 AM EDT 05/05/2023 5:34 AM EDT Narrative Resulting Agency Comment Spec In Lab Nilda Jeronimo APRN CHEMISTRY ORDERABL ES [facility] [place] [place] [address] * (ABNORMAL) Potassium (05/05/2023 5:25 AM EDT) Potassium 3.3(L) 3.5 - 5.0 mmol/L [facility] Comment: Please note: ??Patients with WBC >100,000 may have falsely elevated Potassium levels. ??For accurate Potassium quantification in these patients send serum separator tube (gold top) for subsequent determinations. ??Contact the Clinical Chemistry Laboratory if there are any questions. Blood 05/05/2023 5:25 AM EDT 05/05/2023 5:31 AM EDT Narrative Resulting Agency Comment Spec In Lab Georges Jacob MD CHEMISTRY ORDERABLES [facility] [place] [place] [address] * (ABNORMAL) Differential, Automated (05/05/2023 12:35 AM EDT) Neutrophil % 69.7 % [facility] Neutrophil Absolute 5.09 1.70 - 6.10 x10(3)/mc L [facility] Lymph % 9.2 % [facility] Lymphocytes Abs 0.7(L) 0.9 - 3.2 x10(3)/mc L [facility] Monocyte % 14.0 % [facility] Monocyte Abs 1.0(H) 0.3 - 0.9 x10(3)/mc L [facility] Eos % 5.6 % [facility] Eosinophils Abs 0.4 0.0 - 0.4 x10(3)/mc L [facility] Basophil % 0.3 % [facility] Baso Absolute 0.0 0.0 - 0.1 x10(3)/mc L [facility] Immature Gran % 1.20 % [facility] Comment: Immature granulocytes(IG's)percentage and absolute count will include metamyelocytes, myelocytes, and promyelocytes. Blood smears from CBCs yielding IG's will be scanned manually for concordance. If this scan disagrees with the automated IG or if promyelocytes are noted, a manual differential will be performed. Immature Gran Absolute 0.09(H) 0.00 - 0.04 x10(3)/mc L [facility] Blood 05/05/2023 12:3 5 AM EDT 05/05/2023 12:50 AM EDT Narrative Resulting Agency Comment Spec In Lab Annmarie TAFOYA HEMATOLOGY ORDERABLE S [facility] [place] [address] * (ABNORMAL) Hemogram (05/05/2023 12:35 AM EDT) White Blood Cell 7.3 4.0 - 9.5 x10(3)/mc L [facility] Red Blood Cell 2.78(L) 4.58 - 5.54 x10(6)/mc L [facility] Hemoglobin 9.5(L) 13.7 - 16.5 g/dL [facility] Hematocrit 26.1(L) 40.5 - 48.5 % [facility] Mean Cell Volume 93.9(H) 82.9 - 93.1 fL [facility] Mean Cell Hemoglobin 34.2(H) 27.5 - 32.1 pg [facility] Mean Cell Hemoglobin Concentration 36.4(H) 32.0 - 35.7 g/dL [facility] Platelet 255 145 - 357 x10(3)/mc L [facility] RDW Standard Deviation 49.2(H) 36.0 - 45.0 fL [facility] RDW coefficient of variation 14.2(H) 11.4 - 13.8 % [facility] Mean Platelet Volume 10.8 7.6 - 12.9 fL [facility] NRBC% auto 0.0 % [facility] NRBC Absolute 0.000 0.000 - 0.000 x10(3)/mc L [facility] Blood 05/05/2023 12:3 5 AM EDT 05/05/2023 12:50 AM EDT Narrative Resulting Agency Comment Spec In Lab Annmarie TAFOYA HEMATOLOGY ORDERABLE S [facility] [place] [address] * Phosphorus (05/05/2023 12:35 AM EDT) Phosphorus 4.1 2.5 - 4.5 mg/dL [facility] Blood 05/05/2023 12:3 5 AM EDT 05/05/2023 12:50 AM EDT Narrative Resulting Agency Comment Spec In Lab Georges Jacob MD CHEMISTRY ORDERABLES Performing Organization Address [facility]/ZIP Co de Phone Number [facility] [place] [address] * Magnesium (05/05/2023 12:35 AM EDT) Magnesium 0.93 0.69 - 1.07 mmol/L [facility] Blood 05/05/2023 12:3 5 AM EDT 05/05/2023 12:50 AM EDT Narrative Resulting Agency Comment Spec In Lab Georges Jacob MD CHEMISTRY ORDERABLES Performing Organization Address City/[facility]/ZIP Co de Phone Number [facility] [place] [address] * (ABNORMAL) Basic Metabolic Panel (non-fasting) (05/05/2023 12:35 AM EDT) Glucose 253(H) 65 - 199 mg/dL [facility] Comment:Diabetes: >=200 mg/d L plus symptoms Blood Urea Nitrogen 63(H) 10 - 20 mg/dL [facility] Creatinine 2.56(H) 0.80 - 1.50 mg/dL [facility] Sodium 131(L) 135 - 145 mmol/L [facility] Potassium 3.2(L) 3.5 - 5.0 mmol/L [facility] Comment: Please note: ??Patients with WBC >100,000 may have falsely elevated Potassium levels. ??For accurate Potassium quantification in these patients send serum separator tube (gold top) for subsequent determinations. ??Contact the Clinical Chemistry Laboratory if there are any questions. Chloride 100 98 - 107 mmol/L [facility] Carbon Dioxide 17(L) 22 - 31 mmol/L [facility] Anion Gap 14 5 - 15 mmol/L [facility] Calcium 8.2(L) 8.5 - 10.5 mg/dL [facility] Est Glomerular Filtration Rate 27(L) >=60 mL/min/1. 73 m?? [facility] Comment: This patient's estimated [...] and symptoms in addition to eGFR. Blood 05/05/2023 12:3 5 AM EDT 05/05/2023 12:50 AM EDT Narrative Resulting Agency Comment Spec In Lab Edis Skaggs MD CHEMISTRY ORDERABLES Performing Organization Address City/State/[facility] Co de Phone Number [facility] [place] [place] [address] * XR Chest One View (05/04/2023 11:20 AM EDT) Anatomical Region Laterality Modality Chest N/A Digital Radiogra phy Impressions 05/04/2023 1:54 PM EDT Persistently low lung volumes. Continued left lower lobe consolidation consistent with atelectasis. Superimposed infection or inflammation is not excluded. I have personally reviewed the image(s) and the resident's interpretation and agree with the findings, Meet Anton MD at 05/04/2023 1:54 PM Thank you for letting us participate in the care of this patient. ??If you are a health care provider and have any questions regarding this report, please contact the number below. ??For patients who have questions please contact the health manager managed care that requested your imaging first. ? Narrative 05/04/2023 1:54 PM EDT EXAMINATION: XR CHEST ONE VIEW CLINICAL HISTORY: volume assessment, considering extubation TECHNIQUE: 1 view of the chest COMPARISON: Chest radiograph 05/02/2023 FINDINGS: Support devices: * ??Endotracheal tube tip 4 cm from the nichole. * ??Right upper extremity PICC with tip projecting over the mid SVC. * ??Enteric tube tip is partially visualized, projecting over the gastric antrum. Persistently low lung volumes. Persistent left lower lobe consolidation. The lungs are otherwise clear. No pneumothorax. No large pleural effusion. Cardiomediastinal contours are largely obscured though appear stable. No interval osseous change. Procedure Note Meet Anton MD - 05/04/2023 EXAMINATION: XR CHEST ONE VIEW CLINICAL HISTORY: volume assessment, considering extubation TECHNIQUE: 1 view of the chest COMPARISON: Chest radiograph 05/02/2023 FINDINGS: Support devices: * Endotracheal tube tip 4 cm from the nichole. * Right upper extremity PICC with tip projecting over the mid SVC. * Enteric tube tip is partially visualized, projecting over the gastricantrum. Persistently low lung volumes. Persistent left lower lobe consolidation.The lungs are otherwise clear. No pneumothorax. No large pleural effusion. Cardiomediastinal contours are largely obscured though appear stable. No interval osseous change. IMPRESSION Persistently low lung volumes. Continued left lower lobe consolidation consistent with atelectasis. Superimposed infection or inflammation is not excluded. I have personally reviewed the image(s) and the resident's interpretationand agree with the findings, Meet Anton MD at 05/04/2023 1:54 PM Thank you for letting us participate in the care of this patient. If youare a health care provider and have any questions regarding this report,please contact the number below. For patients who have questions please contactthe health manager managed care that requested your imaging first. Tana Smith MD IMG DX ORDERABLES * (ABNORMAL) Differential, Automated (05/04/2023 2:00 AM EDT) Neutrophil % 70.3 % [facility] Neutrophil Absolute 5.78 1.70 - 6.10 x10(3)/ L [facility] Lymph % 9.6 % [facility] Lymphocytes Abs 0.8(L) 0.9 - 3.2 x10(3)/ L [facility] Monocyte % 14.4 % [facility] Monocyte Abs 1.2(H) 0.3 - 0.9 x10(3)/ L [facility] Eos % 4.3 % [facility] Eosinophils Abs 0.4 0.0 - 0.4 x10(3)/[facility] Basophil % 0.4 % [facility] Baso Absolute 0.0 0.0 - 0.1 x10(3)/ L [facility] Immature Gran % 1.00 % [facility] Comment: Immature granulocytes(IG's)percentage and absolute count will include metamyelocytes, myelocytes, and promyelocytes. Blood smears from CBCs yielding IG's will be scanned manually for concordance. If this scan disagrees with the automated IG or if promyelocytes are noted, a manual differential will be performed. Immature Gran Absolute 0.08(H) 0.00 - 0.04 x10(3)/ L [facility] Blood 05/04/2023 2:00 AM EDT 05/04/2023 2:40 AM EDT Narrative Resulting Agency Comment Spec In Lab Annmarie TAFOYA HEMATOLOGY ORDERABLE S [facility] [place] [address] * (ABNORMAL) Hemogram (05/04/2023 2:00 AM EDT) White Blood Cell 8.2 4.0 - 9.5 x10(3)/mc L [facility] Red Blood Cell 2.73(L) 4.58 - 5.54 x10(6)/mc L [facility] Hemoglobin 8.6(L) 13.7 - 16.5 g/dL [facility] Hematocrit 26.3(L) 40.5 - 48.5 % [facility] Mean Cell Volume 96.3(H) 82.9 - 93.1 fL [facility] [facility] Mean Cell Hemoglobin 31.5 27.5 - 32.1 pg [facility] Mean Cell Hemoglobin Concentration 32.7 32.0 - 35.7 g/dL [facility] Platelet 238 145 - 357 x10(3)/mc L [facility] RDW Standard Deviation 51.9(H) 36.0 - 45.0 [facility] LABORATORY RDW coefficient of variation 14.9(H) 11.4 - 13.8 % [facility] Mean Platelet Volume 10.6 7.6 - 12.9 [facility] LABORATORY NRBC% auto 0.0 % [facility] NRBC Absolute 0.000 0.000 - 0.000 x10(3)/mc L [facility] Blood 05/04/2023 2:00 AM EDT 05/04/2023 2:40 AM EDT Narrative Resulting Agency Comment Spec In Lab Annmarie TAFOYA HEMATOLOGY ORDERABLE S [facility] [place] [address] * (ABNORMAL) Phosphorus (05/04/2023 2:00 AM EDT) Phosphorus 4.8(H) 2.5 - 4.5 mg/dL [facility] Blood 05/04/2023 2:00 AM EDT 05/04/2023 2:40 AM EDT Narrative Resulting Agency Comment Spec In Lab Georges Jacob MD CHEMISTRY ORDERABLES Performing Organization Address City/[facility]/ZIP Co de Phone Number [facility] [place] [place] [address] * Magnesium (05/04/2023 2:00 AM EDT) Magnesium 1.01 0.69 - 1.07 mmol/L [facility] Blood 05/04/2023 2:00 AM EDT 05/04/2023 2:40 AM EDT Narrative Resulting Agency Comment Spec In Lab Georges Jacob MD CHEMISTRY ORDERABLES Performing Organization Address City/[facility]/ZIP Co de Phone Number [facility] [place] [place] [address] * (ABNORMAL) Basic Metabolic Panel (non-fasting) (05/04/2023 2:00 AM EDT) Glucose 144 65 - 199 mg/dL [facility] Comment:Diabetes: >=200 mg/d L plus symptoms Blood Urea Nitrogen 71(H) 10 - 20 mg/dL [facility] Creatinine 2.94(H) 0.80 - 1.50 mg/dL [facility] Sodium 135 135 - 145 mmol/L [facility] Potassium 3.6 3.5 - 5.0 mmol/L [facility] Comment: Please note: ??Patients with WBC >100,000 may have falsely elevated Potassium levels. ??For accurate Potassium quantification in these patients send serum separator tube (gold top) for subsequent determinations. ??Contact the Clinical Chemistry Laboratory if there are any questions. Chloride 103 98 - 107 mmol/L [facility] Carbon Dioxide 18(L) 22 - 31 mmol/L [facility] Anion Gap 14 5 - 15 mmol/L [facility] Calcium 8.4(L) 8.5 - 10.5 mg/dL [facility] Est Glomerular Filtration Rate 23(L) >=60 mL/min/1. 73 m?? [facility] Comment: This patient's estimated [...] and symptoms in addition to eGFR. Blood 05/04/2023 2:00 AM EDT 05/04/2023 2:40 AM EDT Narrative Resulting Agency Comment Spec In Lab Edis Skaggs MD CHEMISTRY ORDERABLES Performing Organization Address City/State/[facility] Co de Phone Number [facility] [place] [place] [address] * (ABNORMAL) BLOOD GAS 2 ARTERIAL (05/03/2023 12:28 PM EDT) pH, Arterial 7.36 7.35 - 7.45 [facility] PCO2, Arterial 29(L) 35 - 45 mmHg [facility] PO2, Arterial 62(L) 85 - 104 mmHg [facility] Bicarbonate, Arterial 16.2(L) 20.0 - 26.0 mmol/L [facility] Base Excess, Arterial -9.2(L) -3.0 - 3.0 mmol/L [facility] Hgb Blood Gas 10.5(L) 13.7 - 16.5 g/dL [facility] Oxyhemoglobin, Arterial 90.8(L) 94.0 - 97.0 % [facility] Carboxyhemoglob in, Arterial 0.3 % [facility] Comment: Nonsmokers: 0.5-1.5% COHB Smokers: Variable, but usually less than 10% Toxic: 20-30% COHB Lethal: Greater than 60% COHB Methemoglobin, Arterial 0.1 <=1.5 % [facility] Na Whole Blood 133(L) 135 - 145 mmol/L [facility] K Whole Blood 3.7 3.5 - 5.0 mmol/L [facility] Comment: Please note: Patients with WBC >100,000 may have falsely elevated Potassium levels. Contact the Clinical Chemistry Laboratory if there are any questions. ICa Whole Blood 1.21 1.15 - 1.33 mmol/L [facility] Comment: Note: ??Total bilirubin higher than 20 mg/dL may lead to falsely low ionized calcium. CL Whole Blood 103 98 - 107 mmol/L [facility] Gluc Whole Bld 121 65 - 199 mg/dL [facility] Comment:Diabetes: >=200 mg/d L plus symptoms. Lactate WB 0.6 0.5 - 2.2 mmol/L [facility] FIO2 Art 40 % [facility] PF Ratio Art 155 [facility] Blood 05/03/2023 12:2 8 PM EDT 05/03/2023 12:28 PM EDT Tana Smith MD POINT OF CARE TEST O RDERABLES [facility] [place] [place] [address] * (ABNORMAL) Differential, Automated (05/03/2023 1:06 AM EDT) Neutrophil % 72.3 % [facility] Neutrophil Absolute 7.18(H) 1.70 - 6.10 x10(3)/mc L [facility] Lymph % 9.3 % [facility] Lymphocytes Abs 0.9 0.9 - 3.2 x10(3)/ L [facility] Monocyte % 14.2 % [facility] Monocyte Abs 1.4(H) 0.3 - 0.9 x10(3)/ L [facility] Eos % 3.2 % [facility] Eosinophils Abs 0.3 0.0 - 0.4 x10(3)/[facility] LABORATORY Basophil % 0.4 % [facility] Baso Absolute 0.0 0.0 - 0.1 x10(3)/[facility] LABORATORY Immature Gran % 0.60 % [facility] Comment: Immature granulocytes(IG's)percentage and absolute count will include metamyelocytes, myelocytes, and promyelocytes. Blood smears from CBCs yielding IG's will be scanned manually for concordance. If this scan disagrees with the automated IG or if promyelocytes are noted, a manual differential will be performed. Immature Gran Absolute 0.06(H) 0.00 - 0.04 x10(3)/[facility] LABORATORY Blood 05/03/2023 1:06 AM EDT 05/03/2023 1:17 AM EDT Narrative Resulting Agency Comment Spec In Lab Annmarie TAFOYA HEMATOLOGY ORDERABLE S [facility] [place] [place] [address] * (ABNORMAL) Hemogram (05/03/2023 1:06 AM EDT) White Blood Cell 9.9(H) 4.0 - 9.5 x10(3)/[facility] LABOR[facility] Red Blood Cell 2.91(L) 4.58 - 5.54 x10(6)/ L [facility] Hemoglobin 9.2(L) 13.7 - 16.5 g/dL [facility] Hematocrit 27.4(L) 40.5 - 48.5 % [facility] Mean Cell Volume 94.2(H) 82.9 - 93.1 fL [facility] Mean Cell Hemoglobin 31.6 27.5 - 32.1 pg [facility] Mean Cell Hemoglobin Concentration 33.6 32.0 - 35.7 g/dL [facility] Platelet 277 145 - 357 x10(3)/mc L [facility] RDW Standard Deviation 51.5(H) 36.0 - 45.0 fL [facility] RDW coefficient of variation 14.8(H) 11.4 - 13.8 % [facility] Mean Platelet Volume 10.6 7.6 - 12.9 fL [facility] NRBC% auto 0.0 % [facility] NRBC Absolute 0.000 0.000 - 0.000 x10(3)/mc L [facility] Blood 05/03/2023 1:06 AM EDT 05/03/2023 1:17 AM EDT Narrative Resulting Agency Comment Spec In Lab Annmarie TAFOYA HEMATOLOGY ORDERABLE S [facility] [place] [address] * Phosphorus (05/03/2023 1:06 AM EDT) Phosphorus 4.2 2.5 - 4.5 mg/dL [facility] Blood 05/03/2023 1:06 AM EDT 05/03/2023 1:17 AM EDT Narrative Resulting Agency Comment Spec In Lab Georges Jacob MD CHEMISTRY ORDERABLES Performing Organization Address City/[facility]/ZIP Co de Phone Number [facility] [place] [place] [address] * Magnesium (05/03/2023 1:06 AM EDT) Magnesium 1.06 0.69 - 1.07 mmol/L [facility] Blood 05/03/2023 1:06 AM EDT 05/03/2023 1:17 AM EDT Narrative Resulting Agency Comment Spec In Lab Georges Jacob MD CHEMISTRY ORDERABLES [facility] [place] [place] [address] * (ABNORMAL) Basic Metabolic Panel (non-fasting) (05/03/2023 1:06 AM EDT) Glucose 143 65 - 199 mg/dL [facility] Comment:Diabetes: >=200 mg/d L plus symptoms Blood Urea Nitrogen 67(H) 10 - 20 mg/dL [facility] Creatinine 2.64(H) 0.80 - 1.50 mg/dL [facility] Sodium 135 135 - 145 mmol/L [facility] Potassium 4.4 3.5 - 5.0 mmol/L [facility] Comment: Please note: ??Patients with WBC >100,000 may have falsely elevated Potassium levels. ??For accurate Potassium quantification in these patients send serum separator tube (gold top) for subsequent determinations. ??Contact the Clinical Chemistry Laboratory if there are any questions. Chloride 105 98 - 107 mmol/L [facility] Carbon Dioxide 17(L) 22 - 31 mmol/L [facility] Anion Gap 13 5 - 15 mmol/L [facility] Calcium 8.7 8.5 - 10.5 mg/dL [facility] Est Glomerular Filtration Rate 26(L) >=60 mL/min/1. 73 m?? [facility] Comment: This patient's estimated [...] and symptoms in addition to eGFR. Blood 05/03/2023 1:06 AM EDT 05/03/2023 1:17 AM EDT Narrative Resulting Agency Comment Spec In Lab Edis Skaggs MD CHEMISTRY ORDERABLES Performing Organization Address [facility] de Phone Number [facility] [place] [address] * Triglyceride (05/03/2023 1:06 AM EDT) Triglyceride 184 mg/dL [facility] Comment: Normal: ?<150 mg/dL Borderline High: 150-199 mg/dL High: ?200-499 mg/dL Very High: ? >op=609 mg/dL Blood 05/03/2023 1:06 AM EDT 05/03/2023 1:17 AM EDT Narrative Resulting Agency Comment Spec In Lab Vignesh Epstein APRN CHEMISTRY ORDERABL ES Performing Organization Address [facility] de Phone Number [facility] [place] [place] [address] * XR Chest One View (05/02/2023 8:00 PM EDT) Anatomical Region Laterality Modality Chest N/A Digital Radiogra phy Impressions 05/03/2023 9:12 AM EDT 1. ??Persistent left retrocardiac opacity for which considerations include atelectasis and/or small pleural effusion 2. ??Right upper extremity PICC terminates in the right atrium. Consider repositioning/replacement. I have personally reviewed the image(s) and the resident's interpretation and agree with the findings, Brien Avery MD at 05/03/2023 9:12 AM Thank you for letting us participate in the care of this patient. ??If you are a health care provider and have any questions regarding this report, please contact the number below. ??For patients who have questions please contact the health manager managed care that requested your imaging first. ? Electronically signed by: Brien Avery MD, [facility] ??([phone]), at 05/03/2023 9:12 AM Narrative 05/03/2023 9:12 AM EDT EXAMINATION: XR CHEST ONE VIEW CLINICAL HISTORY: c/f pleural effusions TECHNIQUE: 1 view of the chest COMPARISON: Chest radiograph 04/30/2023 FINDINGS: Support devices: Endotracheal tube tip projects 2.8 cm above the nichole. Right upper extremity PICC with tip terminating in the right atrium. Enteric tube courses below the diaphragm, the tip is not within the [id number]. There persistent elevation/eventration of the right hemidiaphragm. Unchanged enlargement of the descending aorta. Persistent left retrocardiac opacity silhouetting the diaphragm No right pleural effusion. No pneumothorax. Procedure Note Brien Avery MD - 05/03/2023 EXAMINATION: XR CHEST ONE VIEW CLINICAL HISTORY: c/f pleural effusions TECHNIQUE: 1 view of the chest COMPARISON: Chest radiograph 04/30/2023 FINDINGS: Support devices: Endotracheal tube tip projects 2.8 cm above the nichole.Right upper extremity PICC with tip terminating in the right atrium. Enterictube courses below the diaphragm, the tip is not within the [id number]. There persistent elevation/eventration of the right hemidiaphragm. Unchanged enlargement of the descending aorta. Persistent left retrocardiac opacity silhouetting the diaphragm No right pleural effusion. No pneumothorax. IMPRESSION 1. Persistent left retrocardiac opacity for which considerationsinclude atelectasis and/or small pleural effusion 2. Right upper extremity PICC terminates in the right atrium. Consider repositioning/replacement. I have personally reviewed the image(s) and the resident's interpretationand agree with the findings, Brien Avery MD at 05/03/2023 9:12 AM Thank you for letting us participate in the care of this patient. If youare a health care provider and have any questions regarding this report,please contact the number below. For patients who have questions please contactthe health manager managed care that requested your imaging first. Ludy Contreras Jj OPERATIONS INTERN IMG DX ORDERABLES * XR Abdomen 1 view (Generic) (05/02/2023 8:00 PM EDT) Anatomical Region Laterality Modality Abdomen N/A Digital Radiogra phy Impressions 05/03/2023 8:27 AM EDT 1. The colon is distended likely with a combination of solid and liquid stool and air however it does not appear obstructed. 2. Severe degenerative change at the LEFT hip, moderate in the RIGHT. There is degenerative change in the spine. Thank you for letting us participate in the care of this patient. ??If you are a health care provider and have any questions regarding this report, please contact the number below. ??For patients who have questions please contact the health manager managed care that requested your imaging first. ? Electronically signed by: Radha Smith MD, [facility] ([phone]), at 05/03/2023 8:27 AM Narrative 05/03/2023 8:27 AM EDT EXAMINATION: XR ABDOMEN 1 VIEW (GENERIC) CLINICAL HISTORY: distended abd, liquid BM. c/f obstruction TECHNIQUE: AP portable supine abdomen, 2 images COMPARISON: 04/29/2023 FINDINGS: There is a Dobbhoff with tip in the region of antrum. The colon is distended. The appearance suggests air and fluid. There is a small amount of air in the rectum. There is no definite obstruction. There is severe degenerative change of the LEFT hip and moderate degenerative change of the RIGHT. There is degenerative change in the spine. Free air cannot be excluded on a supine film. Vascular clips are seen in the LEFT upper quadrant. Procedure Note Radha Smith MD - 05/03/2023 EXAMINATION: XR ABDOMEN 1 VIEW (GENERIC) CLINICAL HISTORY: distended abd, liquid BM. c/f obstruction TECHNIQUE: AP portable supine abdomen, 2 images COMPARISON: 04/29/2023 FINDINGS: There is a Dobbhoff with tip in the region of antrum. The colon isdistended. The appearance suggests air and fluid. There is a small amount of air inthe rectum. There is no definite obstruction. There is severe degenerativechange of the LEFT hip and moderate degenerative change of the RIGHT. There is degenerative change in the spine. Free air cannot be excluded on a supinefilm. Vascular clips are seen in the LEFT upper quadrant. IMPRESSION 1. The colon is distended likely with a combination of solid and liquidstool and air however it does not appear obstructed. 2. Severe degenerative change at the LEFT hip, moderate in the RIGHT.There is degenerative change in the spine. Thank you for letting us participate in the care of this patient. If youare a health care provider and have any questions regarding this report,please contact the number below. For patients who have questions please contactthe health manager managed care that requested your imaging first. Ludy Gardner APRN IMG DX ORDERABLES * MRSA PCR Screen ([facility]/CGP/APD/NL[facility]) (05/02/2023 12:24 PM EDT) [facility] MRSA PCR Negative Negative [facility] MRSA (Interp) Methicillin-resist ant Staphylococcus aureus (MRSA) is NOT DETECTED The MRSA target DNA sequences (mec and SCC) were not detected within the acceptable ranges using the Xpert MRSA NxG on the GeneXpert Dx System (VGBio). This suggests the absence of MRSA in the patient specimen submitted for testing. This test is cleared by the U.S. Food and Drug Administration for clinical use and its performance characteristics have been verified by the [facility] at [facility]. This result does not rule out the presence of any other organisms. Rare false negative results may occur if MRSA is present at low concentrations with much higher concentrations of other organisms including MRSE or S. aureus with an empty SCC cassette. [facility] Comment: [VERIFIED DATE]05.02.23 Verified By:Liz Pinto (Electronic Signature) Nasopharyngeal Swab 05/02/19 12:24 PM EDT 05/02/2023 2:15 PM EDT Comment:Specimen Type->Nasop haryngeal Swab Narrative Resulting Agency Comment Spec In Lab Ludy Gardner APRN MOLECULAR ORDERABLES [facility] [place] [address] * Vancomycin Level, Random (05/02/2023 7:00 AM EDT) [facility] Vancomycin, Random 24.5 mg/L [facility] Comment: This level is for determination of the patient's vancomycin iphy-fnzfk-cnw-curve (AUC) value. Contact the inpatient pharmacy for interpretation. Blood 05/02/2023 7:00 AM EDT 05/02/2023 7:04 AM EDT Tana Smith MD CHEMISTRY ORDERABLES [facility] [place] [place] [address] * CT Head wo Contrast (Generic) (05/02/2023 4:00 AM EDT) Anatomical Region Laterality Modality Head Computed Tomogra phy Impressions 05/02/2023 10:59 AM EDT No change in ventricular caliber, intraventricular hemorrhage or right cerebellar hemorrhage with moderate surrounding edema. Thank you for letting us participate in the care of this patient. ??If you are a health care provider and have any questions regarding this report, please contact the number below. ??For patients who have questions please contact the health manager managed care that requested your imaging first. ? Electronically signed by: Elissa Thompson MD, [facility] ([phone]), at 05/02/2023 10:59 AM Narrative 05/02/2023 10:59 AM EDT EXAMINATION: CT HEAD WO CONTRAST (GENERIC) CLINICAL HISTORY: IVH/hydrocephalus evaluate for resolution of intraventricular hemorrhage and associated hydrocephalus s/p EVD clamp TECHNIQUE: CT head performed without intravenous contrast administration. COMPARISON: CT head May 01, 2023 FINDINGS: Right frontal ventricular catheter terminates in stable position at the right foramen of Kearns. No change in caliber of the mildly prominent lateral and third ventricles without significant dilation of the temporal horns. No change in hyperattenuating hemorrhage layering in the occipital horns. Unchanged right anterior cerebellar hemorrhage, moderate surrounding vasogenic edema, and extension of hemorrhage into the fourth ventricle. No new intracranial hemorrhage. No midline shift or extra-axial collection. Patchy supratentorial white matter hypoattenuation consistent with moderate chronic microvascular changes, similar to the prior study. No new loss of foster-white differentiation. Foramen magnum and basilar cisterns remain patent. Right frontal ventricular drainage catheter without collection within the scalp soft tissues. Nasogastric tube via the right naris and endotracheal tube are partially visible. No fracture or aggressive osseous lesion. Extensive paranasal sinus mucosal thickening with fluid levels in the left sphenoid and bilateral maxillary sinuses and frontal sinuses. Procedure Note Elissa Thompson MD - 05/02/2023 EXAMINATION: CT HEAD WO CONTRAST (GENERIC) CLINICAL HISTORY: IVH/hydrocephalus evaluate for resolution ofintraventricular hemorrhage and associated hydrocephalus s/p EVD clamp TECHNIQUE: CT head performed without intravenous contrast administration. COMPARISON: CT head May 01, 2023 FINDINGS: Right frontal ventricular catheter terminates in stable position at theright foramen of Kearns. No change in caliber of the mildly prominent [place] third ventricles without significant dilation of the temporal horns. Nochange in hyperattenuating hemorrhage layering in the occipital horns. Unchanged right anterior cerebellar hemorrhage, moderate surroundingvasogenic edema, and extension of hemorrhage into the fourth ventricle. No new intracranial hemorrhage. No midline shift or extra-axialcollection. Patchy supratentorial white matter hypoattenuation consistent withmoderate chronic microvascular changes, similar to the prior study. No new lossof foster-white differentiation. Foramen magnum and basilar cisterns remainpatent. Right frontal ventricular drainage catheter without collection within thescalp soft tissues. Nasogastric tube via the right naris and endotracheal tubeare partially visible. No fracture or aggressive osseous lesion. Extensive paranasal sinusmucosal thickening with fluid levels in the left sphenoid and bilateralmaxillary sinuses and frontal sinuses. IMPRESSION No change in ventricular caliber, intraventricular hemorrhage or right cerebellar hemorrhage with moderate surrounding edema. Thank you for letting us participate in the care of this patient. If youare a health care provider and have any questions regarding this report,please contact the number below. For patients who have questions please contactthe health manager managed care that requested your imaging first. Tana Smith MD IM CT ORDERABLES * (ABNORMAL) Differential, Automated (05/02/2023 1:05 AM EDT) Neutrophil % 71.8 % [facility] Neutrophil Absolute 5.76 1.70 - 6.10 x10(3)/mc L [facility] Lymph % 10.0 % [facility] Lymphocytes Abs 0.8(L) 0.9 - 3.2 x10(3)/[facility] Monocyte % 13.6 % [facility] Monocyte Abs 1.1(H) 0.3 - 0.9 x10(3)/[facility] Eos % 3.7 % [facility] Eosinophils Abs 0.3 0.0 - 0.4 x10(3)/[facility] Basophil % 0.4 % [facility] Baso Absolute 0.0 0.0 - 0.1 x10(3)/[facility] LABOR[facility]ORY Immature Gran % 0.50 % [facility] Comment: Immature granulocytes(IG's)percentage and absolute count will include metamyelocytes, myelocytes, and promyelocytes. Blood smears from CBCs yielding IG's will be scanned manually for concordance. If this scan disagrees with the automated IG or if promyelocytes are noted, a manual differential will be performed. Immature Gran Absolute 0.04 0.00 - 0.04 x10(3)/[facility] Blood 05/02/2023 1:05 AM EDT 05/02/2023 1:25 AM EDT Narrative Resulting Agency Comment Spec In Lab Annmarie TAFOYA HEMATOLOGY ORDERABLE S Performing Organization Address City/State/[facility] Co de Phone Number [facility] [place] [address] * (ABNORMAL) Hemogram (05/02/2023 1:05 AM EDT) White Blood Cell 8.0 4.0 - 9.5 x10(3)/[facility] Red Blood Cell 3.18(L) 4.58 - 5.54 x10(6)/[facility] Hemoglobin 9.9(L) 13.7 - 16.5 g/dL [facility] Hematocrit 30.5(L) 40.5 - 48.5 % [facility] Mean Cell Volume 95.9(H) 82.9 - 93.1 fL [facility] Mean Cell Hemoglobin 31.1 27.5 - 32.1 pg [facility] Mean Cell Hemoglobin Concentration 32.5 32.0 - 35.7 g/dL [facility] Platelet 240 145 - 357 x10(3)/mc L [facility] RDW Standard Deviation 53.4(H) 36.0 - 45.0 fL [facility] RDW coefficient of variation 15.2(H) 11.4 - 13.8 % [facility] [facility] Mean Platelet Volume 10.9 7.6 - 12.9 [facility] LABORATORY NRBC% auto 0.0 % [facility] NRBC Absolute 0.000 0.000 - 0.000 x10(3)/mc L [facility] Blood 05/02/2023 1:05 AM EDT 05/02/2023 1:25 AM EDT Narrative Resulting Agency Comment Spec In Lab Annmarie TAFOYA HEMATOLOGY ORDERABLE S [facility] [place] [place] [address] * Phosphorus (05/02/2023 1:05 AM EDT) Phosphorus 4.3 2.5 - 4.5 mg/dL [facility] Blood 05/02/2023 1:05 AM EDT 05/02/2023 1:25 AM EDT Narrative Resulting Agency Comment Spec In Lab Georges Jacob MD CHEMISTRY ORDERABLES Performing Organization Address City/[facility]/ZIP Co de Phone Number [facility] [place] [place] [address] * Magnesium (05/02/2023 1:05 AM EDT) Magnesium 1.06 0.69 - 1.07 mmol/L [facility] Blood 05/02/2023 1:05 AM EDT 05/02/2023 1:25 AM EDT Narrative Resulting Agency Comment Spec In Lab Georges Jacob MD CHEMISTRY ORDERABLES [facility] [place] [place] [address] * (ABNORMAL) Basic Metabolic Panel (non-fasting) (05/02/2023 1:05 AM EDT) Glucose 123 65 - 199 mg/dL [facility] Comment:Diabetes: >=200 mg/d L plus symptoms Blood Urea Nitrogen 63(H) 10 - 20 mg/dL [facility] Creatinine 2.69(H) 0.80 - 1.50 mg/dL [facility] Sodium 137 135 - 145 mmol/L [facility] Potassium 4.2 3.5 - 5.0 mmol/L [facility] Comment: Please note: ??Patients with WBC >100,000 may have falsely elevated Potassium levels. ??For accurate Potassium quantification in these patients send serum separator tube (gold top) for subsequent determinations. ??Contact the Clinical Chemistry Laboratory if there are any questions. Chloride 107 98 - 107 mmol/L [facility] Carbon Dioxide 20(L) 22 - 31 mmol/L [facility] Anion Gap 10 5 - 15 mmol/L [facility] Calcium 8.9 8.5 - 10.5 mg/dL [facility] Est Glomerular Filtration Rate 25(L) >=60 mL/min/1. 73 m?? [facility] Comment: This patient's estimated [...] and symptoms in addition to eGFR. Blood 05/02/2023 1:05 AM EDT 05/02/2023 1:25 AM EDT Narrative Resulting Agency Comment Spec In Lab Edis Skaggs MD CHEMISTRY ORDERABLES [facility] [place] [place] [address] * Duplex Study Renal Arteries, Bilat (05/01/2023 10:28 AM EDT) VB Text Report Department: Vascular Surgery Lab Patient: [id number] (MYLA ACOSTA) CPT: [id number] Referring Physician: ANGY VELA ?? Phone: Indications: visualize bilateral arteries, hypoperfusion Findings: Renal Artery Distal, Right ? PSV (cm/s): 78 ? EDV (cm/s): 17 ? RI: 0.79 Mid Pole Renal Parenchyma, Right ? PSV (cm/s): 38 ? EDV (cm/s): 11 ? RI: 0.71 Renal Hilum, Right ? AT (ms): 80 Kidney Length, Right ? Length (cm): 12.2 Renal Vein, Right ? Patent: Patent Renal Artery Distal, Left ? PSV (cm/s): 99 ? EDV (cm/s): 17 ? RI: 0.83 Mid Pole Renal Parenchyma, Left ? PSV (cm/s): 39 ? EDV (cm/s): 10 ? RI: 0.74 Renal Hilum, Left ? AT (ms): 50 Kidney Length, Left ? Length (cm): 12.5 Renal Vein, Left ? Patent: Patent Interpretation: Right: Proximal to mid renal artery not visualized due to body habitus. Patent distal main renal artery with no evidence of hemodynamically significant stenosis. Patent main renal vein. Normal flow in the kidneys. No identifiable change when compared to the previous exam. Left: Proximal to mid renal artery not visualized due to body habitus. Patent distal main renal artery with no evidence of hemodynamically significant stenosis. Patent main renal vein. Normal flow in the kidneys. No identifiable change when compared to the previous exam. Previous Renal Studies: Date ? Right PSV - RAR ? Left PSV - RAR ? --- ?---- ? 73 ? ---- Current Exam ?? 78 ? ---- ? 99 ? ---- Electronically Signed by: NAYANA STREETER on 2023-05-01 02:18:31 PM [facility] VB Text Report End of Report [facility] 05/01/2023 10:2 8 AM EDT Angy Vela APRN VASCULAR ORDERABLES [facility] * Vancomycin Level, Random (05/01/2023 7:06 AM EDT) Vancomycin, Random 19.1 mg/L [facility] Comment: This level is for determination of the patient's vancomycin iyoy-waxbc-ohx-curve (AUC) value. Contact the inpatient pharmacy for interpretation. Blood 05/01/2023 7:06 AM EDT 05/01/2023 7:19 AM EDT Edis Skaggs MD CHEMISTRY ORDERABLES [facility] [place] [address] * CT Head wo Contrast (Generic) (05/01/2023 4:04 AM EDT) Anatomical Region Laterality Modality Head Computed Tomogra phy Impressions 05/01/2023 8:16 AM EDT Mild interval increase in size of lateral and third ventricles. Expected evolution of intracerebral and intraventricular hemorrhage. Thank you for letting us participate in the care of this patient. ??If you are a health care provider and have any questions regarding this report, please contact the number below. ??For patients who have questions please contact the health manager managed care that requested your imaging first. ? Electronically signed by: Jadiel Jeff MD, [facility] ([phone]), at 05/01/2023 8:16 AM Narrative 05/01/2023 8:16 AM EDT EXAMINATION: CT HEAD WO CONTRAST (GENERIC) CLINICAL HISTORY: IVH/hydrocephalus evaluate for resolution of intraventricular hemorrhage and associated hydrocephalus for possible EVD clamp TECHNIQUE: CT head performed without intravenous contrast administration. COMPARISON: CT head of 04/27/2023 FINDINGS: The site of intracerebral hemorrhage within the deep right cerebellar hemisphere shows expected evolution and is slightly less conspicuous. There is intraventricular extension. The extent and conspicuity of intraventricular blood are slightly decreased. The caliber of the lateral and third ventricles is slightly increased when compared to the prior study. There is patchy hypoattenuation in the white matter of the bilateral cerebral hemispheres, nonspecific finding most commonly reflecting small vessel ischemia. Foster-white differentiation is preserved. There is no extra-axial collection. There are air-fluid levels within the bilateral maxillary and sphenoid sinuses and extensive opacification of the ethmoid and left frontal sinuses. No orbital hematoma is evident. Procedure Note Jadiel Jeff MD - 05/01/2023 EXAMINATION: CT HEAD WO CONTRAST (GENERIC) CLINICAL HISTORY: IVH/hydrocephalus evaluate for resolution of intraventricular hemorrhage and associated hydrocephalus for possible EVD clamp TECHNIQUE: CT head performed without intravenous contrast administration. COMPARISON: CT head of 04/27/2023 FINDINGS: The site of intracerebral hemorrhage within the deep right cerebellarhemisphere shows expected evolution and is slightly less conspicuous. There is intraventricular extension. The extent and conspicuity of intraventricularblood are slightly decreased. The caliber of the lateral and third ventriclesis slightly increased when compared to the prior study. There is patchy hypoattenuation in the white matter of the bilateralcerebral hemispheres, nonspecific finding most commonly reflecting small vesselischemia. Foster-white differentiation is preserved. There is no extra-axialcollection. There are air-fluid levels within the bilateral maxillary and sphenoidsinuses and extensive opacification of the ethmoid and left frontal sinuses. Noorbital hematoma is evident. IMPRESSION Mild interval increase in size of lateral and third ventricles. Expected evolution of intracerebral and intraventricular hemorrhage. Thank you for letting us participate in the care of this patient. If youare a health care provider and have any questions regarding this report,please contact the number below. For patients who have questions please contactthe health manager managed care that requested your imaging first. Edis Skaggs MD IMG CT ORDERABLES * Triglyceride (05/01/2023 12:40 AM EDT) [facility] Triglyceride 184 mg/dL [facility] Comment: Normal: ?<150 mg/dL Borderline High: 150-199 mg/dL High: ?200-499 mg/dL Very High: ? >kv=122 mg/dL Blood Venous Draw / Unknown 05/01/2023 12:40 AM EDT 05/01/2023 12:51 AM EDT Narrative Resulting Agency Comment Spec In Lab Vignesh Epstein OPERATIONS INTERN CHEMISTRY ORDERABL ES [facility] [place] [place] [address] * (ABNORMAL) Differential, Automated (05/01/2023 12:40 AM EDT) Neutrophil % 78.6 % [facility] Neutrophil Absolute 7.54(H) 1.70 - 6.10 x10(3)/ L [facility] Lymph % 6.8 % [facility] Lymphocytes Abs 0.6(L) 0.9 - 3.2 x10(3)/ L [facility] Monocyte % 11.5 % [facility] Monocyte Abs 1.1(H) 0.3 - 0.9 x10(3)/ L [facility] Eos % 2.6 % [facility] Eosinophils Abs 0.2 0.0 - 0.4 x10(3)/[facility] LABORATORY Basophil % 0.1 % [facility] Baso Absolute 0.0 0.0 - 0.1 x10(3)/[facility] LABORATORY Immature Gran % 0.40 % [facility] Comment: Immature granulocytes(IG's)percentage and absolute count will include metamyelocytes, myelocytes, and promyelocytes. Blood smears from CBCs yielding IG's will be scanned manually for concordance. If this scan disagrees with the automated IG or if promyelocytes are noted, a manual differential will be performed. Immature Gran Absolute 0.04 0.00 - 0.04 x10(3)/ L [facility] Blood 05/01/2023 12:4 0 AM EDT 05/01/2023 12:50 AM EDT Narrative Resulting Agency Comment Spec In Lab Annmarie TAFOYA HEMATOLOGY ORDERABLE S [facility] [place] [place] [address] * (ABNORMAL) Hemogram (05/01/2023 12:40 AM EDT) Pathologist [facility] White Blood Cell 9.6(H) 4.0 - 9.5 x10(3)/ L [facility] Red Blood Cell 3.33(L) 4.58 - 5.54 x10(6)/mc L [facility] Hemoglobin 10.3(L) 13.7 - 16.5 g/dL [facility] Hematocrit 31.7(L) 40.5 - 48.5 % [facility] Mean Cell Volume 95.2(H) 82.9 - 93.1 fL [facility] Mean Cell Hemoglobin 30.9 27.5 - 32.1 pg [facility] Mean Cell Hemoglobin Concentration 32.5 32.0 - 35.7 g/dL [facility] Platelet 269 145 - 357 x10(3)/mc L [facility] RDW Standard Deviation 53.6(H) 36.0 - 45.0 [facility] LABORATORY RDW coefficient of variation 15.1(H) 11.4 - 13.8 % [facility] Mean Platelet Volume 11.0 7.6 - 12.9 [facility] LABORATORY NRBC% auto 0.0 % [facility] NRBC Absolute 0.000 0.000 - 0.000 x10(3)/mc L [facility] Blood 05/01/2023 12:4 0 AM EDT 05/01/2023 12:50 AM EDT Narrative Resulting Agency Comment Spec In Lab Annmarie TAFOYA HEMATOLOGY ORDERABLE S Performing Organization Address City/[facility]/ZIP Co de Phone Number [facility] [place] [place] [address] * Phosphorus (05/01/2023 12:40 AM EDT) Phosphorus 4.0 2.5 - 4.5 mg/dL [facility] Blood 05/01/2023 12:4 0 AM EDT 05/01/2023 12:50 AM EDT Narrative Resulting Agency Comment Spec In Lab Georges Jacob MD CHEMISTRY ORDERABLES [facility] [place] [place] [address] * Magnesium (05/01/2023 12:40 AM EDT) Magnesium 1.07 0.69 - 1.07 mmol/L [facility] Blood 05/01/2023 12:4 0 AM EDT 05/01/2023 12:50 AM EDT Narrative Resulting Agency Comment Spec In Lab Georges Jacob MD CHEMISTRY ORDERABLES [facility] [place] [place] [address] * (ABNORMAL) Basic Metabolic Panel (non-fasting) (05/01/2023 12:40 AM EDT) Glucose 140 65 - 199 mg/dL [facility] Comment:Diabetes: >=200 mg/d L plus symptoms Blood Urea Nitrogen 64(H) 10 - 20 mg/dL [facility] Creatinine 3.33(H) 0.80 - 1.50 mg/dL [facility] Sodium 138 135 - 145 mmol/L [facility] Potassium 4.1 3.5 - 5.0 mmol/L [facility] Comment: Please note: ??Patients with WBC >100,000 may have falsely elevated Potassium levels. ??For accurate Potassium quantification in these patients send serum separator tube (gold top) for subsequent determinations. ??Contact the Clinical Chemistry Laboratory if there are any questions. Chloride 106 98 - 107 mmol/L [facility] Carbon Dioxide 20(L) 22 - 31 mmol/L [facility] Anion Gap 12 5 - 15 mmol/L [facility] Calcium 8.8 8.5 - 10.5 mg/dL [facility] Est Glomerular Filtration Rate 20(L) >=60 mL/min/1. 73 m?? [facility] Comment: This patient's estimated GFR was calculated using the 2021 CKD-EPI equation. The estimated GFR can vary [...] and symptoms in addition to eGFR. Blood 05/01/2023 12:4 0 AM EDT 05/01/2023 12:50 AM EDT Narrative Resulting Agency Comment Spec In Lab Edis Skaggs MD CHEMISTRY ORDERABLES Performing Organization Address [facility]/ZIP Co de Phone Number [facility] [place] [place] [address] * (ABNORMAL) Lower Respiratory Culture Tracheal Aspirate (04/30/2023 12:45 PM EDT) Lower Respiratory Culture Many mixed bacterial morphotypes suggestive of normal upper respiratory pascual including Rare Gram Negative Rods (A) [facility] Gram Stain Many Neutrophils seen No squamous epithelial cells seen Many Gram Positive Cocci seen (A) [facility] Organism Gram Negative Rods(A) [facility] Organism Gram Positive Cocci(A) [facility] Tracheal Aspirate 04/30/2023 12:45 PM EDT 04/30/2023 1:07 PM EDT Narrative Resulting Agency Comment Spec In Lab Edis Skaggs MD MICROBIOLOGY - GENER AL ORDERABLES Performing Organization Address [facility]/ZIP Co de Phone Number [facility] [place] [place] [address] * XR Chest One View (04/30/2023 6:21 AM EDT) Anatomical Region Laterality Modality Chest N/A Digital Radiogra phy Impressions 04/30/2023 6:32 AM EDT * ??Right arm PICC terminates in the right atrium. Consider slight retraction. * ??Apparent widening of the mediastinal silhouette may be artifactual/projectional, however, possibility of a mediastinal hematoma should be considered. Repeat radiograph with better inspiration is recommended. * ??Mild central pulmonary vascular congestion. * ??Hazy retrocardiac opacity: Atelectasis versus infiltrate. * ??Trace left pleural effusion. Thank you for letting us participate in the care of this patient. ??If you are a health care provider and have any questions regarding this report, please contact the number below. ??For patients who have questions please contact the health manager managed care that requested your imaging first. ? Electronically signed by: Skylar Harrington MD, [facility] ([phone]), at 04/30/2023 6:32 AM Narrative 04/30/2023 6:32 AM EDT EXAMINATION: XR CHEST ONE VIEW CLINICAL HISTORY: increasing FiO2 TECHNIQUE: 1 view of the chest COMPARISON: Chest x-ray 04/27/2023. FINDINGS: Endotracheal tube terminates 2.2 cm above the nichole. Enteric tube courses below the diaphragm and beyond the [id number]. Right arm PICC terminates in the right atrium. Low lung volumes with bronchovascular crowding and accentuation of cardiomediastinal silhouette. Apparent widening of the mediastinal silhouette. Interval development of mild central pulmonary vascular congestion. Hazy retrocardiac opacity. Trace left pleural effusion.. No pneumothorax. Unchanged osseous structures. Normal upper abdomen. Procedure Note Arianna Harrington MD - 04/30/2023 EXAMINATION: XR CHEST ONE VIEW CLINICAL HISTORY: increasing FiO2 TECHNIQUE: 1 view of the chest COMPARISON: Chest x-ray 04/27/2023. FINDINGS: Endotracheal tube terminates 2.2 cm above the nichole. Enteric tube coursesbelow the diaphragm and beyond the [id number]. Right arm PICC terminates inthe right atrium. Low lung volumes with bronchovascular crowding andaccentuation of cardiomediastinal silhouette. Apparent widening of the mediastinalsilhouette. Interval development of mild central pulmonary vascular congestion. Hazy retrocardiac opacity. Trace left pleural effusion.. No pneumothorax.Unchanged osseous structures. Normal upper abdomen. IMPRESSION * Right arm PICC terminates in the right atrium. Consider slightretraction. * Apparent widening of the mediastinal silhouette may be artifactual/projectional, however, possibility of a mediastinal hematomashould be considered. Repeat radiograph with better inspiration is recommended. * Mild central pulmonary vascular congestion. * Hazy retrocardiac opacity: Atelectasis versus infiltrate. * Trace left pleural effusion. Thank you for letting us participate in the care of this patient. If youare a health care provider and have any questions regarding this report,please contact the number below. For patients who have questions please contactthe health manager managed care that requested your imaging first. Edis Skaggs MD IMG DX ORDERABLES * (ABNORMAL) Phosphorus (04/30/2023 5:15 AM EDT) Phosphorus 5.4(H) 2.5 - 4.5 mg/dL [facility] Blood 04/30/2023 5:15 AM EDT 04/30/2023 5:23 AM EDT Narrative Resulting Agency Comment Spec In Lab Angy Vela OPERATIONS INTERN CHEMISTRY ORDERABLES [facility] [place] [address] * Magnesium (04/30/2023 5:15 AM EDT) Magnesium 1.04 0.69 - 1.07 mmol/L [facility] Blood 04/30/2023 5:15 AM EDT 04/30/2023 5:23 AM EDT Narrative Resulting Agency Comment Spec In Lab Angy Vela ZEESHAN CHEMISTRY ORDERABLES [facility] [place] [place] [address] * (ABNORMAL) Basic Metabolic Panel (non-fasting) (04/30/2023 5:15 AM EDT) Glucose 136 65 - 199 mg/dL [facility] Comment:Diabetes: >=200 mg/d L plus symptoms Blood Urea Nitrogen 61(H) 10 - 20 mg/dL [facility] Creatinine 3.51(H) 0.80 - 1.50 mg/dL [facility] Sodium 133(L) 135 - 145 mmol/L [facility] Potassium 4.2 3.5 - 5.0 mmol/L [facility] Comment: Please note: ??Patients with WBC >100,000 may have falsely elevated Potassium levels. ??For accurate Potassium quantification in these patients send serum separator tube (gold top) for subsequent determinations. ??Contact the Clinical Chemistry Laboratory if there are any questions. Chloride 101 98 - 107 mmol/L [facility] Carbon Dioxide 19(L) 22 - 31 mmol/L [facility] Anion Gap 13 5 - 15 mmol/L [facility] Calcium 8.8 8.5 - 10.5 mg/dL [facility] Est Glomerular Filtration Rate 19(L) >=60 mL/min/1. 73 m?? [facility] Comment: This patient's estimated [...] and symptoms in addition to eGFR. Blood 04/30/2023 5:15 AM EDT 04/30/2023 5:23 AM EDT Narrative Resulting Agency Comment Spec In Lab Angy M Alistair BYERS CHEMISTRY ORDERABLES [facility] [place] [place] [address] * (ABNORMAL) Differential, Automated (04/29/2023 11:15 PM EDT) Neutrophil % 75.4 % [facility] Neutrophil Absolute 8.19(H) 1.70 - 6.10 x10(3)/mc L [facility] Lymph % 8.6 % [facility] Lymphocytes Abs 0.9 0.9 - 3.2 x10(3)/ L [facility] Monocyte % 13.2 % [facility] Monocyte Abs 1.4(H) 0.3 - 0.9 x10(3)/mc L [facility] Eos % 2.0 % [facility] Eosinophils Abs 0.2 0.0 - 0.4 x10(3)/ L [facility] Basophil % 0.4 % [facility] Baso Absolute 0.0 0.0 - 0.1 x10(3)/ L [facility] Immature Gran % 0.40 % [facility] Comment: Immature granulocytes(IG's)percentage and absolute count will include metamyelocytes, myelocytes, and promyelocytes. Blood smears from CBCs yielding IG's will be scanned manually for concordance. If this scan disagrees with the automated IG or if promyelocytes are noted, a manual differential will be performed. Immature Gran Absolute 0.04 0.00 - 0.04 x10(3)/mc L [facility] Blood 04/29/2023 11:1 5 PM EDT 04/29/2023 11:35 PM EDT Narrative Resulting Agency Comment Spec In Lab Annmarie TAFOYA HEMATOLOGY ORDERABLE S [facility] [place] [address] * (ABNORMAL) Hemogram (04/29/2023 11:15 PM EDT) White Blood Cell 10.8(H) 4.0 - 9.5 x10(3)/mc L [facility] Red Blood Cell 3.51(L) 4.58 - 5.54 x10(6)/mc L [facility] Hemoglobin 11.0(L) 13.7 - 16.5 g/dL [facility] Hematocrit 33.7(L) 40.5 - 48.5 % [facility] Mean Cell Volume 96.0(H) 82.9 - 93.1 fL [facility] Mean Cell Hemoglobin 31.3 27.5 - 32.1 pg [facility] Mean Cell Hemoglobin Concentration 32.6 32.0 - 35.7 g/dL [facility] Platelet 257 145 - 357 x10(3)/mc L [facility] RDW Standard Deviation 52.2(H) 36.0 - 45.0 [facility] LABORATORY RDW coefficient of variation 14.7(H) 11.4 - 13.8 % [facility] Mean Platelet Volume 11.4 7.6 - 12.9 [facility] LABOR[facility]ORY NRBC% auto 0.0 % [facility] NRBC Absolute 0.000 0.000 - 0.000 x10(3)/mc L [facility] Blood 04/29/2023 11:1 5 PM EDT 04/29/2023 11:35 PM EDT Narrative Resulting Agency Comment Spec In Lab Annmarie TAFOYA HEMATOLOGY ORDERABLE S [facility] [place] [address] * (ABNORMAL) Phosphorus (04/29/2023 11:15 PM EDT) Phosphorus 5.0(H) 2.5 - 4.5 mg/dL [facility] Blood 04/29/2023 11:1 5 PM EDT 04/29/2023 11:35 PM EDT Narrative Resulting Agency Comment Spec In Lab Angy Vela APRN CHEMISTRY ORDERABLES Performing Organization Address City/[facility]/ZIP Co de Phone Number [facility] [place] [place] [address] * Magnesium (04/29/2023 11:15 PM EDT) Magnesium 1.03 0.69 - 1.07 mmol/L [facility] Blood 04/29/2023 11:1 5 PM EDT 04/29/2023 11:35 PM EDT Narrative Resulting Agency Comment Spec In Lab Angy Vela APRN CHEMISTRY ORDERABLES [facility] [place] [place] [address] * (ABNORMAL) Basic Metabolic Panel (non-fasting) (04/29/2023 11:15 PM EDT) Glucose 123 65 - 199 mg/dL [facility] Comment:Diabetes: >=200 mg/d L plus symptoms Blood Urea Nitrogen 58(H) 10 - 20 mg/dL [facility] Creatinine 3.36(H) 0.80 - 1.50 mg/dL [facility] Sodium 136 135 - 145 mmol/L [facility] Potassium 4.0 3.5 - 5.0 mmol/L [facility] Comment: Please note: ??Patients with WBC >100,000 may have falsely elevated Potassium levels. ??For accurate Potassium quantification in these patients send serum separator tube (gold top) for subsequent determinations. ??Contact the Clinical Chemistry Laboratory if there are any questions. Chloride 103 98 - 107 mmol/L [facility] Carbon Dioxide 20(L) 22 - 31 mmol/L [facility] Anion Gap 13 5 - 15 mmol/L [facility] Calcium 8.7 8.5 - 10.5 mg/dL [facility] Est Glomerular Filtration Rate 20(L) >=60 mL/min/1. 73 m?? [facility] Comment: This patient's estimated [...] and symptoms in addition to eGFR. Blood 04/29/2023 11:1 5 PM EDT 04/29/2023 11:35 PM EDT Narrative Resulting Agency Comment Spec In Lab Angy Vela APRN CHEMISTRY ORDERABLES Performing Organization Address City/[facility]/ZIP Co de Phone Number [facility] [place] [address] * (ABNORMAL) Phosphorus (04/29/2023 5:50 PM EDT) Phosphorus 4.8(H) 2.5 - 4.5 mg/dL [facility] Blood 04/29/2023 5:50 PM EDT 04/29/2023 5:57 PM EDT Narrative Resulting Agency Comment Spec In Lab Angy Vela APRN CHEMISTRY ORDERABLES [facility] [place] [place] [address] * Magnesium (04/29/2023 5:50 PM EDT) Magnesium 1.03 0.69 - 1.07 mmol/L [facility] Blood 04/29/2023 5:50 PM EDT 04/29/2023 5:57 PM EDT Narrative Resulting Agency Comment Spec In Lab Angy Vela ZEESHAN CHEMISTRY ORDERABLES [facility] [place] [place] [address] * (ABNORMAL) Basic Metabolic Panel (non-fasting) (04/29/2023 5:50 PM EDT) Glucose 126 65 - 199 mg/dL [facility] Comment:Diabetes: >=200 mg/d L plus symptoms Blood Urea Nitrogen 56(H) 10 - 20 mg/dL [facility] Creatinine 3.19(H) 0.80 - 1.50 mg/dL [facility] Sodium 137 135 - 145 mmol/L [facility] Potassium 4.1 3.5 - 5.0 mmol/L [facility] Comment: Please note: ??Patients with WBC >100,000 may have falsely elevated Potassium levels. ??For accurate Potassium quantification in these patients send serum separator tube (gold top) for subsequent determinations. ??Contact the Clinical Chemistry Laboratory if there are any questions. Chloride 104 98 - 107 mmol/L [facility] Carbon Dioxide 20(L) 22 - 31 mmol/L [facility] Anion Gap 13 5 - 15 mmol/L [facility] Calcium 8.7 8.5 - 10.5 mg/dL [facility] Est Glomerular Filtration Rate 21(L) >=60 mL/min/1. 73 m?? [facility] Comment: This patient's estimated [...] and symptoms in addition to eGFR. Blood 04/29/2023 5:50 PM EDT 04/29/2023 5:57 PM EDT Narrative Resulting Agency Comment Spec In Lab Angy Vela APRN CHEMISTRY ORDERABLES [facility] [place] [place] [address] * (ABNORMAL) BLOOD GAS 2 ARTERIAL (04/29/2023 5:05 PM EDT) pH, Arterial 7.32(L) 7.35 - 7.45 [facility] PCO2, Arterial 38 35 - 45 mmHg [facility] PO2, Arterial 69(L) 85 - 104 mmHg [facility] Bicarbonate, Arterial 19.0(L) 20.0 - 26.0 mmol/L [facility] Base Excess, Arterial -7.0(L) -3.0 - 3.0 mmol/L [facility] Hgb Blood Gas 12.1(L) 13.7 - 16.5 g/dL [facility] Oxyhemoglobin, Arterial 91.9(L) 94.0 - 97.0 % [facility] Carboxyhemoglob in, Arterial 0.3 % [facility] Comment: Nonsmokers: 0.5-1.5% COHB Smokers: Variable, but usually less than 10% Toxic: 20-30% COHB Lethal: Greater than 60% COHB Methemoglobin, Arterial 0.2 <=1.5 % [facility] Na Whole Blood 134(L) 135 - 145 mmol/L [facility] K Whole Blood 4.2 3.5 - 5.0 mmol/L [facility] Comment: Please note: Patients with WBC >100,000 may have falsely elevated Potassium levels. Contact the Clinical Chemistry Laboratory if there are any questions. ICa Whole Blood 1.19 1.15 - 1.33 mmol/L [facility] Comment: Note: ??Total bilirubin higher than 20 mg/dL may lead to falsely low ionized calcium. CL Whole Blood 103 98 - 107 mmol/L [facility] Gluc Whole Bld 120 65 - 199 mg/dL [facility] Comment:Diabetes: >=200 mg/d L plus symptoms. Lactate WB 0.7 0.5 - 2.2 mmol/L [facility] FIO2 Art 55 % [facility] PF Ratio Art 125 [facility] Blood 04/29/2023 5:05 PM EDT 04/29/2023 5:05 PM EDT Edis Skaggs MD POINT OF CARE TEST O RDERABLES [facility] [place] [place] [address] * XR Abdomen 1 view (Generic) (04/29/2023 4:50 PM EDT) Anatomical Region Laterality Modality Abdomen N/A Digital Radiogra phy Impressions 04/29/2023 4:55 PM EDT Satisfactorily positioned weighted enteric tube. Air-filled distended upper abdominal large bowel. Thank you for letting us participate in the care of this patient. ??If you are a health care provider and have any questions regarding this report, please contact the number below. ??For patients who have questions please contact the health manager managed care that requested your imaging first. ? Electronically signed by: Amanda Smith MD, [facility] ([phone]), at 04/29/2023 4:55 PM Narrative 04/29/2023 4:55 PM EDT EXAMINATION: XR ABDOMEN 1 VIEW (GENERIC) CLINICAL HISTORY: abdominal distension TECHNIQUE: Limited abdomen COMPARISON: April 23, 2023 FINDINGS: Weighted enteric tube curves on itself in the left medial upper quadrant and descends to the right of the vertebral column, descending distended air-filled loops of large bowel is likely reflects collapsed position of the collapsed displaced stomach. Procedure Note Amanda Smith MD - 04/29/2023 EXAMINATION: XR ABDOMEN 1 VIEW (GENERIC) CLINICAL HISTORY: abdominal distension TECHNIQUE: Limited abdomen COMPARISON: April 23, 2023 FINDINGS: Weighted enteric tube curves on itself in the left medial upper quadrantand descends to the right of the vertebral column, descending distendedair-filled loops of large bowel is likely reflects collapsed position of thecollapsed displaced stomach. IMPRESSION Satisfactorily positioned weighted enteric tube. Air-filled distendedupper abdominal large bowel. Thank you for letting us participate in the care of this patient. If youare a health care provider and have any questions regarding this report,please contact the number below. For patients who have questions please contactthe health manager managed care that requested your imaging first. Edis Skaggs MD IMG DX ORDERABLES * Phosphorus (04/29/2023 11:53 AM EDT) Pathologist [facility] Phosphorus 4.3 2.5 - 4.5 mg/dL [facility] Blood 04/29/2023 11:5 3 AM EDT 04/29/2023 11:58 AM EDT Narrative Resulting Agency Comment Spec In Lab Angy Vela OPERATIONS INTERN CHEMISTRY ORDERABLES [facility] [place] [address] * Magnesium (04/29/2023 11:53 AM EDT) Pathologist [facility] Magnesium 1.03 0.69 - 1.07 mmol/L [facility] Blood 04/29/2023 11:5 3 AM EDT 04/29/2023 11:58 AM EDT Narrative Resulting Agency Comment Spec In Lab Angy Vela ZEESHAN CHEMISTRY ORDERABLES [facility] [place] [place] [address] * (ABNORMAL) Basic Metabolic Panel (non-fasting) (04/29/2023 11:53 AM EDT) Glucose 149 65 - 199 mg/dL [facility] Comment:Diabetes: >=200 mg/d L plus symptoms Blood Urea Nitrogen 52(H) 10 - 20 mg/dL [facility] Creatinine 2.73(H) 0.80 - 1.50 mg/dL [facility] Sodium 135 135 - 145 mmol/L [facility] Potassium 4.2 3.5 - 5.0 mmol/L [facility] Comment: Please note: ??Patients with WBC >100,000 may have falsely elevated Potassium levels. ??For accurate Potassium quantification in these patients send serum separator tube (gold top) for subsequent determinations. ??Contact the Clinical Chemistry Laboratory if there are any questions. Chloride 102 98 - 107 mmol/L [facility] Carbon Dioxide 20(L) 22 - 31 mmol/L [facility] Anion Gap 13 5 - 15 mmol/L [facility] Calcium 8.8 8.5 - 10.5 mg/dL [facility] Est Glomerular Filtration Rate 25(L) >=60 mL/min/1. 73 m?? [facility] Comment: This patient's estimated [...] and symptoms in addition to eGFR. Blood 04/29/2023 11:5 3 AM EDT 04/29/2023 11:58 AM EDT Narrative Resulting Agency Comment Spec In Lab Angy Vela APRN CHEMISTRY ORDERABLES Performing Organization Address City/[facility]/ZIP Co de Phone Number [facility] [place] [address] * Phosphorus (04/29/2023 5:07 AM EDT) Phosphorus 4.0 2.5 - 4.5 mg/dL [facility] Blood 04/29/2023 5:07 AM EDT 04/29/2023 5:38 AM EDT Narrative Resulting Agency Comment Spec In Lab Angy Vela APRN CHEMISTRY ORDERABLES Performing Organization Address [facility]/ZIP Co de Phone Number [facility] [place] [address] * Magnesium (04/29/2023 5:07 AM EDT) Magnesium 0.95 0.69 - 1.07 mmol/L [facility] Blood 04/29/2023 5:07 AM EDT 04/29/2023 5:38 AM EDT Narrative Resulting Agency Comment Spec In Lab Angy Vela APRN CHEMISTRY ORDERABLES Performing Organization Address [facility] Co de Phone Number [facility] [place] [address] * (ABNORMAL) Basic Metabolic Panel (non-fasting) (04/29/2023 5:07 AM EDT) Glucose 132 65 - 199 mg/dL [facility] Comment:Diabetes: >=200 mg/d L plus symptoms Blood Urea Nitrogen 49(H) 10 - 20 mg/dL [facility] Creatinine 2.30(H) 0.80 - 1.50 mg/dL [facility] Sodium 134(L) 135 - 145 mmol/L [facility] Potassium 3.8 3.5 - 5.0 mmol/L [facility] Comment: Please note: ??Patients with WBC >100,000 may have falsely elevated Potassium levels. ??For accurate Potassium quantification in these patients send serum separator tube (gold top) for subsequent determinations. ??Contact the Clinical Chemistry Laboratory if there are any questions. Chloride 101 98 - 107 mmol/L [facility] Carbon Dioxide 20(L) 22 - 31 mmol/L [facility] Anion Gap 13 5 - 15 mmol/L [facility] Calcium 9.1 8.5 - 10.5 mg/dL [facility] Est Glomerular Filtration Rate 31(L) >=60 mL/min/1. 73 m?? [facility] Comment: This patient's estimated [...] and symptoms in addition to eGFR. Blood 04/29/2023 5:07 AM EDT 04/29/2023 5:38 AM EDT Narrative Resulting Agency Comment Spec In Lab Angy Vela APRN CHEMISTRY ORDERABLES [facility] [place] [place] [address] * Protein Electrophoresis, urine, random (04/29/2023 4:00 AM EDT) Protein, Urine 7 0 - 12 mg/dL [facility] U Albumin 41 % total [facility] Globulin, Urine 59 % total [facility] M1 Band, Urine None Detected [facility] UPEP Comments See Note [facility] Comment: There is no evidence of clonal free light chains in this patient's urine sample. Urine 04/29/2023 4:00 AM EDT 04/29/2023 4:16 AM EDT Narrative Resulting Agency Comment Spec In Lab Angy Teetee Vela OPERATIONS INTERN URINE ORDERABLES Performing Organization Address City/[facility]/ZIP Co de Phone Number [facility] [place] [place] [address] * U Albumin/Cre Ratio (04/29/2023 4:00 AM EDT) Albumin / Creatinin Ratio, Urine Not Calculated 0 - 29 mcg/mg Cr [facility] Comment: Reference Ranges: <30 mcg/mg: Normal 30-300 mcg/mg: Moderately increased albuminuria.* >300 mcg/mg: Severely increased albuminuria. * ACEI or ARB recommended if diabetic; suggested if BP>130/80 without diabetes ACEI or ARB strongly recommended if diabetic; recommended if BP>130/80 without diabetes Two of three specimens collected within a 3 to 6 month period should be abnormal before considering a patient to have albuminuria. Transient causes: exercise, fever, infection, CHF, marked hyperglycemia or hypertension. Persistent albuminuria indicates CKD and is an independent risk factor for ASCVD. ADA Standards of Medical Care in Diabetes-2016; KDIGO: Kidney International Supplements (2012) 2, 357? 362 Albumin, Urine <3.0 mg/L [facility] Creatinine, Urine 38 mg/dL [facility] Urine 04/29/2023 4:00 AM EDT 04/29/2023 4:16 AM EDT Narrative Resulting Agency Comment Spec In Lab Angy Vela OPERATIONS INTERN URINE ORDERABLES Performing Organization Address City/[facility]/ZIP Co de Phone Number [facility] [place] [place] [address] * (ABNORMAL) _Urinalysis with microscopic (04/29/2023 4:00 AM EDT) Glucose, Urine Dipstick Negative Negative mg/dL [facility] Protein, Urine Dipstick Negative Negative mg/dL [facility] Bilirubin, Urine Dipstick Negative Negative mg/dL [facility] Comment: Clinical correlation required for positive Urine Bilirubin results as false positive may occur with some drugs and drug related products. If a false positive is suspected a serum total bilirubin should be considered if clinically indicated. Urobilinogen, Urine Dipstick Normal Normal mg/dL [facility] pH, Urn (dipstick) 5.5 5.0 - 8.0 [facility] Blood, Urine Dipstick Trace(A) Negative mg/dL [facility] Ketone, Urine Dipstick Negative Negative mg/dL [facility] Nitrite, Urine Dipstick Negative Negative [facility] Leukocytes, Urine Dipstick Negative Negative [facility] Appearance, Urine Dipstick Clear Clear [facility] Specific [place] Urine Automated 1.010 1.005 - 1.030 [facility] Color, Urine Dipstick Yellow Yellow [facility] RBC, Urine 10(H) 0 - 3 /HPF [facility] WBC, Urine 1 0 - 3 /HPF [facility] Squamous Epithelial Cells Raw Data, Urine 2 <=4 /HPF [facility] Hyaline Casts, Urine 17(H) 0 - 2 /LPF [facility] Granular Casts, Urine 1(H) <=0 /LPF [facility] WBC Cast, Urine <1(H) <=0 /LPF [facility] Urine 04/29/2023 4:00 AM EDT 04/29/2023 4:16 AM EDT Narrative Resulting Agency Comment Spec In Lab Angy Vela APRN URINE ORDERABLES Performing Organization Address City/[facility]/ZIP Co de Phone Number [facility] [place] [place] [address] * Protein/Creatinine Ratio, urine (04/29/2023 4:00 AM EDT) Creatinine, Urine 38 mg/dL [facility] Protein, Urine 7 0 - 12 mg/dL [facility] Protein / Creatinine Ratio, Urine 0.2 ratio [facility] Urine 04/29/2023 4:00 AM EDT 04/29/2023 4:16 AM EDT Narrative Resulting Agency Comment Spec In Lab Angy Vela APRN URINE ORDERABLES Performing Organization Address [facility] Co de Phone Number [facility] [place] [place] [address] * (ABNORMAL) Differential, Automated (04/29/2023 1:05 AM EDT) Pathologist [facility] Neutrophil % 78.9 % [facility] Neutrophil Absolute 8.98(H) 1.70 - 6.10 x10(3)/mc L [facility] Lymph % 6.6 % [facility] Lymphocytes Abs 0.8(L) 0.9 - 3.2 x10(3)/mc L [facility] Monocyte % 11.9 % [facility] Monocyte Abs 1.4(H) 0.3 - 0.9 x10(3)/mc L [facility] Eos % 1.8 % [facility] Eosinophils Abs 0.2 0.0 - 0.4 x10(3)/mc L [facility] Basophil % 0.4 % [facility] Baso Absolute 0.0 0.0 - 0.1 x10(3)/mc L [facility] Immature Gran % 0.40 % [facility] Comment: Immature granulocytes(IG's)percentage and absolute count will include metamyelocytes, myelocytes, and promyelocytes. Blood smears from CBCs yielding IG's will be scanned manually for concordance. If this scan disagrees with the automated IG or if promyelocytes are noted, a manual differential will be performed. Immature Gran Absolute 0.05(H) 0.00 - 0.04 x10(3)/mc L [facility] Blood 04/29/2023 1:05 AM EDT 04/29/2023 1:17 AM EDT Narrative Resulting Agency Comment Spec In Lab Annmarie TAFOYA HEMATOLOGY ORDERABLE S [facility] [place] [address] * (ABNORMAL) Hemogram (04/29/2023 1:05 AM EDT) White Blood Cell 11.4(H) 4.0 - 9.5 x10(3)/mc L [facility] Red Blood Cell 3.65(L) 4.58 - 5.54 x10(6)/mc L [facility] Hemoglobin 11.4(L) 13.7 - 16.5 g/dL [facility] Hematocrit 34.1(L) 40.5 - 48.5 % [facility] Mean Cell Volume 93.4(H) 82.9 - 93.1 fL [facility] Mean Cell Hemoglobin 31.2 27.5 - 32.1 pg [facility] Mean Cell Hemoglobin Concentration 33.4 32.0 - 35.7 g/dL [facility] Platelet 229 145 - 357 x10(3)/mc L [facility] RDW Standard Deviation 49.1(H) 36.0 - 45.0 fL [facility] RDW coefficient of variation 14.2(H) 11.4 - 13.8 % [facility] Mean Platelet Volume 11.1 7.6 - 12.9 fL [facility] NRBC% auto 0.0 % [facility] NRBC Absolute 0.000 0.000 - 0.000 x10(3)/mc L [facility] Blood 04/29/2023 1:05 AM EDT 04/29/2023 1:17 AM EDT Narrative Resulting Agency Comment Spec In Lab Annmarie TAFOYA HEMATOLOGY ORDERABLE S Performing Organization Address [facility]/ZIP Co de Phone Number [facility] [place] [address] * Phosphorus (04/29/2023 1:05 AM EDT) Phosphorus 4.2 2.5 - 4.5 mg/dL [facility] Blood 04/29/2023 1:05 AM EDT 04/29/2023 1:17 AM EDT Narrative Resulting Agency Comment Spec In Lab Angy Vela APRN CHEMISTRY ORDERABLES Performing Organization Address [facility] Co de Phone Number [facility] [place] [place] [address] * Magnesium (04/29/2023 1:05 AM EDT) Magnesium 0.93 0.69 - 1.07 mmol/L [facility] Blood 04/29/2023 1:05 AM EDT 04/29/2023 1:17 AM EDT Narrative Resulting Agency Comment Spec In Lab Angy Vela APRN CHEMISTRY ORDERABLES Performing Organization Address [facility] Co de Phone Number [facility] [place] [address] * (ABNORMAL) Basic Metabolic Panel (non-fasting) (04/29/2023 1:05 AM EDT) Glucose 120 65 - 199 mg/dL [facility] Comment:Diabetes: >=200 mg/d L plus symptoms Blood Urea Nitrogen 45(H) 10 - 20 mg/dL [facility] Creatinine 2.16(H) 0.80 - 1.50 mg/dL [facility] Sodium 136 135 - 145 mmol/L [facility] Potassium 3.7 3.5 - 5.0 mmol/L [facility] Comment: Please note: ??Patients with WBC >100,000 may have falsely elevated Potassium levels. ??For accurate Potassium quantification in these patients send serum separator tube (gold top) for subsequent determinations. ??Contact the Clinical Chemistry Laboratory if there are any questions. Chloride 102 98 - 107 mmol/L [facility] Carbon Dioxide 21(L) 22 - 31 mmol/L [facility] Anion Gap 13 5 - 15 mmol/L [facility] Calcium 8.7 8.5 - 10.5 mg/dL [facility] Est Glomerular Filtration Rate 33(L) >=60 mL/min/1. 73 m?? [facility] Comment: This patient's estimated [...] and symptoms in addition to eGFR. Blood 04/29/2023 1:05 AM EDT 04/29/2023 1:17 AM EDT Narrative Resulting Agency Comment Spec In Lab Angy Vela APRN CHEMISTRY ORDERABLES [facility] [place] [address] * Ferritin (04/29/2023 1:05 AM EDT) Ferritin 355 31 - 409 ng/mL [facility] Comment: Please note that as of 01/11/2023, the reference intervals for Ferritin have been updated. Blood 04/29/2023 1:05 AM EDT 04/29/2023 1:17 AM EDT Narrative Resulting Agency Comment Spec In Lab Ekaterina Snyder MD CHEMISTRY ORDERABLES [facility] [place] [address] * (ABNORMAL) Iron and TIBC (04/29/2023 1:05 AM EDT) Iron 25(L) 45 - 160 mcg/dL [facility] TIBC 199(L) 250 - 450 mcg/dL [facility] Iron Saturation 13(L) 20 - 50 % [facility] Blood 04/29/2023 1:05 AM EDT 04/29/2023 1:17 AM EDT Narrative Resulting Agency Comment Spec In Lab Ekaterina Snyder MD CHEMISTRY ORDERABLES Performing Organization Address City/[facility]/ZIP Co de Phone Number [facility] [place] [address] * PTH (04/29/2023 1:05 AM EDT) Parathyroid Hormone 54 15 - 65 pg/mL [facility] Blood 04/29/2023 1:05 AM EDT 04/29/2023 1:17 AM EDT Narrative Resulting Agency Comment Spec In Lab Ekaterina Snyder MD CHEMISTRY ORDERABLES Performing Organization Address City/[facility]/ZIP Co de Phone Number [facility] [place] [address] * (ABNORMAL) Vitamin D, 25-Hydroxy (04/29/2023 1:05 AM EDT) Vitamin D Total 25 OH 13(L) 21 - 100 ng/mL [facility] Vit D Interp Deficient [facility] Blood 04/29/2023 1:05 AM EDT 04/29/2023 1:17 AM EDT Narrative Resulting Agency Comment Spec In Lab Ekaterina Snyder MD CHEMISTRY ORDERABLES Performing Organization Address City/[facility]/ZIP Co de Phone Number [facility] [place] [address] * Hepatitis B Core Antibody, Total (04/28/2023 6:11 PM EDT) Hepatitis B Core Antibody Negative Negative [facility] Blood 04/28/2023 6:11 PM EDT 04/28/2023 6:20 PM EDT Narrative Resulting Agency Comment Spec In Lab Angy Vela APRN CHEMISTRY ORDERABLES Performing Organization Address City/[facility] Co de Phone Number [facility] [place] [place] [address] * Hepatitis B Surface Antigen (04/28/2023 6:11 PM EDT) Hepatitis B Surface Antigen Negative Negative [facility] Blood 04/28/2023 6:11 PM EDT 04/28/2023 6:20 PM EDT Narrative Resulting Agency Comment Spec In Lab Angy Vela APRN CHEMISTRY ORDERABLES Performing Organization Address [facility] Co de Phone Number [facility] [place] [address] * Hepatitis B Surface Antibody (04/28/2023 6:11 PM EDT) Hepatitis B Surface Antibody, Quantitative <3.5 IU/L [facility] Comment: HepB Surface Ab Quant: Unvaccinated: < 8.5 IU/L Vaccinated: >= 11.5 IU/L Hepatitis B Surface Antibody Negative [facility] Comment: Patient is presumed to be not vaccinated or immune to HBV infection. Expected Results: Vaccinated: Positive Unvaccinated: Negative Blood 04/28/2023 6:11 PM EDT 04/28/2023 6:20 PM EDT Narrative Resulting Agency Comment Spec In Lab Angy Vela APRN CHEMISTRY ORDERABLES [facility] [place] [place] [address] * Hepatitis C Antibody (04/28/2023 6:11 PM EDT) Hepatitis C Antibody Negative Negative [facility] Blood 04/28/2023 6:11 PM EDT 04/28/2023 6:20 PM EDT Narrative Resulting Agency Comment Spec In Lab Angy Vlea APRN CHEMISTRY ORDERABLES Performing Organization Address City/[facility]/ZIP Co de Phone Number [facility] [place] [address] * CK (04/28/2023 6:11 PM EDT) Creatine Kinase 74 0 - 200 unit/L [facility] Blood 04/28/2023 6:11 PM EDT 04/28/2023 6:20 PM EDT Narrative Resulting Agency Comment Spec In Lab Angy Vela APRN CHEMISTRY ORDERABLES Performing Organization Address City/[facility]/ZIP Co de Phone Number [facility] [place] [place] [address] * Lactate Dehydrogenase (04/28/2023 6:11 PM EDT) Lactate Dehydrogenase 199 110 - 220 unit/L [facility] Blood 04/28/2023 6:11 PM EDT 04/28/2023 6:20 PM EDT Narrative Resulting Agency Comment Spec In Lab Angy Vela APRN CHEMISTRY ORDERABLES [facility] [place] [place] [address] * (ABNORMAL) Protein Electrophoresis, serum (04/28/2023 6:11 PM EDT) Total Prot Electrophoresis 6.3 6.1 - 8.0 g/dL [facility] Albumin Electrophoresis 2.82(L) 3.20 - 5.20 g/dL [facility] Alpha 1 Globulin 0.28 0.10 - 0.30 g/dL [facility] Alpha 2 Globulin 0.99(H) 0.40 - 0.90 g/dL [facility] Beta Globulin 0.70 0.50 - 1.00 g/dL [facility] Gamma Globulin 1.51(H) 0.50 - 1.30 g/dL [facility] M1 Band None Detected None Detected [facility] Blood 04/28/2023 6:11 PM EDT 04/28/2023 6:20 PM EDT Narrative Resulting Agency Comment Spec In Lab Angy Vela OPERATIONS INTERN CHEMISTRY ORDERABLES Performing Organization Address City/[facility]/ZIP Co de Phone Number [facility] [place] [place] [address] * (ABNORMAL) Free Light Chains, Serum (04/28/2023 6:11 PM EDT) Pathologist [facility] [place] Free Light Chain 10.76(H) 0.72 - 2.75 mg/dL [facility] Lambda Free Light Chain 5.65(H) 0.57 - 2.15 mg/dL [facility] [place]/Lambda FLC Ratio 1.9044 0.4000 - 2.5800 [facility] Blood 04/28/2023 6:11 PM EDT 04/28/2023 6:20 PM EDT Narrative Resulting Agency Comment Spec In Lab Angy Vela OPERATIONS INTERN CHEMISTRY ORDERABLES [facility] [place] [place] [address] * (ABNORMAL) Phosphorus (04/28/2023 6:11 PM EDT) Phosphorus 5.1(H) 2.5 - 4.5 mg/dL [facility] Blood 04/28/2023 6:11 PM EDT 04/28/2023 6:20 PM EDT Narrative Resulting Agency Comment Spec In Lab Angy Vela APRN CHEMISTRY ORDERABLES Performing Organization Address City/[facility]/ZIP Co de Phone Number [facility] [place] [place] [address] * Magnesium (04/28/2023 6:11 PM EDT) Pathologist [facility] Magnesium 0.93 0.69 - 1.07 mmol/L [facility] Blood 04/28/2023 6:11 PM EDT 04/28/2023 6:20 PM EDT Narrative Resulting Agency Comment Spec In Lab Angy Vela APRN CHEMISTRY ORDERABLES Performing Organization Address City/[facility]/ZIP Co de Phone Number [facility] [place] [place] [address] * (ABNORMAL) Basic Metabolic Panel (non-fasting) (04/28/2023 6:11 PM EDT) Pathologist [facility] Glucose 103 65 - 199 mg/dL [facility] Comment:Diabetes: >=200 mg/d L plus symptoms Blood Urea Nitrogen 41(H) 10 - 20 mg/dL [facility] Creatinine 1.93(H) 0.80 - 1.50 mg/dL [facility] Sodium 134(L) 135 - 145 mmol/L [facility] Potassium 3.7 3.5 - 5.0 mmol/L [facility] Comment: Please note: ??Patients with WBC >100,000 may have falsely elevated Potassium levels. ??For accurate Potassium quantification in these patients send serum separator tube (gold top) for subsequent determinations. ??Contact the Clinical Chemistry Laboratory if there are any questions. Chloride 101 98 - 107 mmol/L [facility] Carbon Dioxide 20(L) 22 - 31 mmol/L [facility] Anion Gap 13 5 - 15 mmol/L [facility] Calcium 8.9 8.5 - 10.5 mg/dL [facility] Est Glomerular Filtration Rate 38(L) >=60 mL/min/1. 73 m?? [facility] Comment: This patient's estimated [...] and symptoms in addition to eGFR. Blood 04/28/2023 6:11 PM EDT 04/28/2023 6:20 PM EDT Narrative Resulting Agency Comment Spec In Lab Angy Vela OPERATIONS INTERN CHEMISTRY ORDERABLES Performing Organization Address City/State/[facility] Co de Phone Number [facility] [place] [place] [address] * Duplex Study Renal Arteries, Bilat (04/28/2023 2:24 PM EDT) VB Text Report Department: Vascular Surgery Lab Patient: [id number] (MYLA ACOSTA) CPT: 93773 Referring Physician: ANGY VELA ?? Phone: Indications: ??type B aortic dissection, worsening OVI, LT renal arises from false lumen and RT arises from true lumen, ? patency/ perfusion Findings: Right ?Patent ?? Renal Artery Ostium ?No Vis ?? Renal Artery Proximal ?No Vis ?? Renal Artery Mid ? No Vis ?? Renal Artery Distal ?No Vis ?? Left ? PSV (cm/s) ??EDV (cm/s) ?RI ??AT (ms) ??Patent ?? Renal Artery Ostium ? No Vis ?? Renal Artery Proximal ? No Vis ?? Renal Artery Mid ?No Vis ?? Renal Artery Distal ?73 ?11 ??0.84 ? Lower Pole Renal Parenchyma ?26 ? 9 ??0.64 ? Renal Hilum ?41 ?11 ? 60 ? Renal Vein ?Patent ?? Interpretation: Comment: Limited exam due to time of day ( study started at 1600), overlying bowel gas, patient positioning and patient body habitus. Right: Unable to study kidney, renal artery, and renal vein due to limitations listed above. Unable to determine patency. Left: Patent distal main renal artery with no evidence of hemodynamically significant stenosis. Patent main renal vein. Due to limitations listed above unable to study origin and proximal to mid renal artery; cannot exclude higher velocities/ stenosis here. Comparison: ??No previous study in our vascular lab database for comparison. Electronically Signed by: BRITTANY KENDALL M.D. on 2023-04-28 05:01:13 PM [facility] VB Text Report End of Report [facility] 04/28/2023 2:24 PM EDT Angy Vela APRN VASCULAR ORDERABLES Performing Organization Address City/[facility]/ZIP Co de Phone Number [facility] * (ABNORMAL) Phosphorus (04/28/2023 11:42 AM EDT) Phosphorus 5.1(H) 2.5 - 4.5 mg/dL [facility] Blood 04/28/2023 11:4 2 AM EDT 04/28/2023 11:52 AM EDT Narrative Resulting Agency Comment Spec In Lab Angy Vela APRN CHEMISTRY ORDERABLES Performing Organization Address [facility] Co de Phone Number [facility] [place] [address] * Magnesium (04/28/2023 11:42 AM EDT) Magnesium 0.93 0.69 - 1.07 mmol/L [facility] Blood 04/28/2023 11:4 2 AM EDT 04/28/2023 11:52 AM EDT Narrative Resulting Agency Comment Spec In Lab Angy Vela APRN CHEMISTRY ORDERABLES Performing Organization Address [facility] Co de Phone Number [facility] [place] [address] * (ABNORMAL) Basic Metabolic Panel (non-fasting) (04/28/2023 11:42 AM EDT) Glucose 112 65 - 199 mg/dL [facility] Comment:Diabetes: >=200 mg/d L plus symptoms Blood Urea Nitrogen 39(H) 10 - 20 mg/dL [facility] Creatinine 1.77(H) 0.80 - 1.50 mg/dL [facility] Sodium 135 135 - 145 mmol/L [facility] Potassium 3.9 3.5 - 5.0 mmol/L [facility] Comment: Please note: ??Patients with WBC >100,000 may have falsely elevated Potassium levels. ??For accurate Potassium quantification in these patients send serum separator tube (gold top) for subsequent determinations. ??Contact the Clinical Chemistry Laboratory if there are any questions. Chloride 103 98 - 107 mmol/L [facility] Carbon Dioxide 20(L) 22 - 31 mmol/L [facility] Anion Gap 12 5 - 15 mmol/L [facility] Calcium 8.7 8.5 - 10.5 mg/dL [facility] Est Glomerular Filtration Rate 42(L) >=60 mL/min/1. 73 m?? [facility] Comment: This patient's estimated GFR [...] and symptoms in addition to eGFR. Blood 04/28/2023 11:4 2 AM EDT 04/28/2023 11:52 AM EDT Narrative Resulting Agency Comment Spec In Lab Angy Vela APRN CHEMISTRY ORDERABLES [facility] [place] [address] * Magnesium (04/28/2023 5:12 AM EDT) Magnesium 0.92 0.69 - 1.07 mmol/L [facility] Blood 04/28/2023 5:12 AM EDT 04/28/2023 5:36 AM EDT Narrative Resulting Agency Comment Spec In Lab Georges Jacob MD CHEMISTRY ORDERABLES [facility] [place] [address] * (ABNORMAL) Basic Metabolic Panel (non-fasting) (04/28/2023 5:12 AM EDT) Glucose 113 65 - 199 mg/dL [facility] Comment:Diabetes: >=200 mg/d L plus symptoms Blood Urea Nitrogen 37(H) 10 - 20 mg/dL [facility] Creatinine 1.74(H) 0.80 - 1.50 mg/dL [facility] Sodium 134(L) 135 - 145 mmol/L [facility] Potassium 3.8 3.5 - 5.0 mmol/L [facility] Comment: Please note: ??Patients with WBC >100,000 may have falsely elevated Potassium levels. ??For accurate Potassium quantification in these patients send serum separator tube (gold top) for subsequent determinations. ??Contact the Clinical Chemistry Laboratory if there are any questions. Chloride 103 98 - 107 mmol/L [facility] Carbon Dioxide 19(L) 22 - 31 mmol/L [facility] Anion Gap 12 5 - 15 mmol/L [facility] Calcium 8.6 8.5 - 10.5 mg/dL [facility] Est Glomerular Filtration Rate 43(L) >=60 mL/min/1. 73 m?? [facility] Comment: This patient's estimated GFR [...] and symptoms in addition to eGFR. Blood 04/28/2023 5:12 AM EDT 04/28/2023 5:36 AM EDT Narrative Resulting Agency Comment Spec In Lab Georges Jacob MD CHEMISTRY ORDERABLES Performing Organization Address City/[facility]/[place] [address] * Scan, Peripheral Blood (04/28/2023 1:20 AM EDT) Pathologist [facility] Plat estimate Normal [facility] RBC Morphology Normal [facility] Blood 04/28/2023 1:20 AM EDT 04/28/2023 1:29 AM EDT Narrative Resulting Agency Comment Spec In Lab Annmarie TAFOYA HEMATOLOGY ORDERABLE S Performing Organization Address [facility] [place] [address] * (ABNORMAL) Differential, Automated (04/28/2023 1:20 AM EDT) [facility] Neutrophil % 76.1 % [facility] Neutrophil Absolute 8.88(H) 1.70 - 6.10 x10(3)/mc L [facility] Lymph % 7.5 % [facility] Lymphocytes Abs 0.9 0.9 - 3.2 x10(3)/mc L [facility] Monocyte % 13.7 % [facility] Monocyte Abs 1.6(H) 0.3 - 0.9 x10(3)/mc L [facility] Eos % 1.8 % [facility] Eosinophils Abs 0.2 0.0 - 0.4 x10(3)/mc L [facility] Basophil % 0.5 % [facility] Baso Absolute 0.1 0.0 - 0.1 x10(3)/mc L [facility] Immature Gran % 0.40 % [facility] Comment: Immature granulocytes(IG's)percentage and absolute count will include metamyelocytes, myelocytes, and promyelocytes. Blood smears from CBCs yielding IG's will be scanned manually for concordance. If this scan disagrees with the automated IG or if promyelocytes are noted, a manual differential will be performed. Immature Gran Absolute 0.05(H) 0.00 - 0.04 x10(3)/mc L [facility] Blood 04/28/2023 1:20 AM EDT 04/28/2023 1:29 AM EDT Narrative Resulting Agency Comment Spec In Lab Annmarie TAFOYA HEMATOLOGY ORDERABLE S Performing Organization Address City/[facility]/ZIP Co de Phone Number [facility] [place] [address] * (ABNORMAL) Hemogram (04/28/2023 1:20 AM EDT) White Blood Cell 11.7(H) 4.0 - 9.5 x10(3)/mc L [facility] Red Blood Cell 3.64(L) 4.58 - 5.54 x10(6)/mc L [facility] Hemoglobin 11.5(L) 13.7 - 16.5 g/dL [facility] Hematocrit 34.9(L) 40.5 - 48.5 % [facility] Mean Cell Volume 95.9(H) 82.9 - 93.1 fL [facility] Mean Cell Hemoglobin 31.6 27.5 - 32.1 pg [facility] Mean Cell Hemoglobin Concentration 33.0 32.0 - 35.7 g/dL [facility] Platelet 244 145 - 357 x10(3)/mc L [facility] RDW Standard Deviation 49.0(H) 36.0 - 45.0 fL [facility] RDW coefficient of variation 13.8 11.4 - 13.8 % [facility] Mean Platelet Volume 11.3 7.6 - 12.9 fL [facility] NRBC% auto 0.0 % [facility] NRBC Absolute 0.000 0.000 - 0.000 x10(3)/mc L [facility] Blood 04/28/2023 1:20 AM EDT 04/28/2023 1:29 AM EDT Narrative Resulting Agency Comment Spec In Lab Annmarie TAFOYA HEMATOLOGY ORDERABLE S Performing Organization Address City/[facility]/ZIP Co de Phone Number [facility] [place] [address] * (ABNORMAL) Hepatic Function Panel (04/28/2023 1:20 AM EDT) Protein, Total 6.7 6.1 - 8.0 g/dL [facility] Albumin 3.1(L) 3.2 - 5.2 g/dL [facility] Aspartate Aminotransferase 26 0 - 39 unit/L [facility] Alanine Aminotransferase 38 0 - 55 unit/L [facility] Alkaline Phosphatase 61 40 - 130 unit/L [facility] Bilirubin, Total 0.5 0.2 - 1.3 mg/dL [facility] Bilirubin, Direct 0.3 0.0 - 0.3 mg/dL [facility] Blood 04/28/2023 1:20 AM EDT 04/28/2023 1:29 AM EDT Narrative Resulting Agency Comment Spec In Lab Georges Jacob MD CHEMISTRY ORDERABLES Performing Organization Address City/[facility]/ZIP Co de Phone Number [facility] [place] [address] * Triglyceride (04/28/2023 1:20 AM EDT) Pathologist [facility] Triglyceride 126 mg/dL [facility] Comment: Normal: ?<150 mg/dL Borderline High: 150-199 mg/dL High: ?200-499 mg/dL Very High: ? >qt=314 mg/dL Blood 04/28/2023 1:20 AM EDT 04/28/2023 1:29 AM EDT Narrative Resulting Agency Comment Spec In Lab Georges Jacob MD CHEMISTRY ORDERABLES [facility] [place] [address] * (ABNORMAL) Phosphorus (04/28/2023 1:20 AM EDT) Pathologist [facility] Phosphorus 5.0(H) 2.5 - 4.5 mg/dL [facility] Comment:result rechecked-KS Blood 04/28/2023 1:20 AM EDT 04/28/2023 1:29 AM EDT Narrative Resulting Agency Comment Spec In Lab Georges Jacob MD CHEMISTRY ORDERABLES [facility] [address] [address] * (ABNORMAL) Blood Gas Arterial ([facility]) (04/27/2023 11:36 PM EDT) pH, Arterial 7.28(Criti connie) 7.35 - 7.45 [facility] Comment:Called by: shreya, Read back by: Eulalia Blakely, Date/Time:04/27/23 23:55. PCO2, Arterial 45 35 - 45 mmHg [facility] PO2, Arterial 68(L) 85 - 104 mmHg [facility] Bicarbonate, Arterial 21.0 20.0 - 26.0 mmol/L [facility] Base Excess, Arterial -5.7(L) -3.0 - 3.0 mmol/L [facility] Hgb Blood Gas 12.5(L) 13.7 - 16.5 g/dL [facility] Oxyhemoglobin, Arterial 91.7(L) 94.0 - 97.0 % [facility] Carboxyhemoglob in, Arterial 0.2 % [facility] Comment: Nonsmokers: ??0.5-1.5% COHB Smokers: ??Variable, but usually less than 10% Toxic: 20 - 30% COHB Lethal: ??Greater than 60% COHB Methemoglobin, Arterial 0.3 <=1.5 % [facility] Na Whole Blood 132(L) 135 - 145 mmol/L [facility] K Whole Blood 3.7 3.5 - 5.0 mmol/L [facility] Comment: Please note: ??Patients with WBC >100,000 may have falsely elevated Potassium levels. ??Contact the Clinical Chemistry Laboratory if there are any questions. ICa Whole Blood 1.19 1.15 - 1.33 mmol/L [facility] Comment: Note: ??Total bilirubin higher than 20 mg/dL may lead to falsely low ionized calcium. CL Whole Blood 103 98 - 107 mmol/L [facility] Gluc Whole Bld 110 65 - 199 mg/dL [facility] Comment:Diabetes: >=200 mg/d L plus symptoms. Lactate WB 0.8 0.5 - 2.2 mmol/L [facility] Blood Arterial Draw / Unknown 04/27/2023 11:36 PM EDT 04/27/2023 11:48 PM EDT Narrative Resulting Agency Comment Spec In Lab Michelle TAFOYA CHEMISTRY ORDERABLE S Performing Organization Address [facility]/ZIP Co de Phone Number [facility] [place] [address] * Magnesium (04/27/2023 11:00 PM EDT) Magnesium 0.90 0.69 - 1.07 mmol/L [facility] Blood 04/27/2023 11:0 0 PM EDT 04/27/2023 11:10 PM EDT Narrative Resulting Agency Comment Spec In Lab Georges Jacob MD CHEMISTRY ORDERABLES Performing Organization Address [facility] Co de Phone Number [facility] [place] [address] * (ABNORMAL) Basic Metabolic Panel (non-fasting) (04/27/2023 11:00 PM EDT) Glucose 114 65 - 199 mg/dL [facility] Comment:Diabetes: >=200 mg/d L plus symptoms Blood Urea Nitrogen 35(H) 10 - 20 mg/dL [facility] Creatinine 1.54(H) 0.80 - 1.50 mg/dL [facility] Sodium 134(L) 135 - 145 mmol/L [facility] Potassium 3.8 3.5 - 5.0 mmol/L [facility] Comment: Please note: ??Patients with WBC >100,000 may have falsely elevated Potassium levels. ??For accurate Potassium quantification in these patients send serum separator tube (gold top) for subsequent determinations. ??Contact the Clinical Chemistry Laboratory if there are any questions. Chloride 103 98 - 107 mmol/L [facility] Carbon Dioxide 21(L) 22 - 31 mmol/L [facility] Anion Gap 10 5 - 15 mmol/L [facility] Calcium 8.4(L) 8.5 - 10.5 mg/dL [facility] Est Glomerular Filtration Rate 50(L) >=60 mL/min/1. 73 m?? [facility] Comment: This patient's estimated GFR [...] and symptoms in addition to eGFR. Blood 04/27/2023 11:0 0 PM EDT 04/27/2023 11:10 PM EDT Narrative Resulting Agency Comment Spec In Lab Georges Jacob MD CHEMISTRY ORDERABLES Performing Organization Address City/[facility]/ZIP Co de Phone Number [facility] [place] [address] * Magnesium (04/27/2023 4:21 PM EDT) Magnesium 0.95 0.69 - 1.07 mmol/L [facility] Blood 04/27/2023 4:21 PM EDT 04/27/2023 4:42 PM EDT Narrative Resulting Agency Comment Spec In Lab Georges Jacob MD CHEMISTRY ORDERABLES [facility] [place] [address] * (ABNORMAL) Basic Metabolic Panel (non-fasting) (04/27/2023 4:21 PM EDT) Glucose 135 65 - 199 mg/dL [facility] Comment:Diabetes: >=200 mg/d L plus symptoms Blood Urea Nitrogen 33(H) 10 - 20 mg/dL [facility] Creatinine 1.33 0.80 - 1.50 mg/dL [facility] Sodium 132(L) 135 - 145 mmol/L [facility] Potassium 4.2 3.5 - 5.0 mmol/L [facility] Comment: Please note: ??Patients with WBC >100,000 may have falsely elevated Potassium levels. ??For accurate Potassium quantification in these patients send serum separator tube (gold top) for subsequent determinations. ??Contact the Clinical Chemistry Laboratory if there are any questions. Chloride 101 98 - 107 mmol/L [facility] Carbon Dioxide 21(L) 22 - 31 mmol/L [facility] Anion Gap 10 5 - 15 mmol/L [facility] Calcium 8.6 8.5 - 10.5 mg/dL [facility] Est Glomerular Filtration Rate 59(L) >=60 mL/min/1. 73 m?? [facility] Comment: This patient's estimated GFR [...] and symptoms in addition to eGFR. Blood 04/27/2023 4:21 PM EDT 04/27/2023 4:42 PM EDT Narrative Resulting Agency Comment Spec In Lab Georges Jacob MD CHEMISTRY ORDERABLES [facility] [place] [address] * EKG 12 Lead (04/27/2023 4:00 PM EDT) Ventricular rate 62 BPM MUSE SYSTEM Atrial Rate 62 BPM MUSE SYSTEM P-R Interval 220 ms MUSE SYSTEM QRS Duration 172 ms MUSE SYSTEM Q-T Interval 464 ms MUSE SYSTEM QTC Calculated (Bezet) 470 ms MUSE SYSTEM Calculated P [place] 19 degrees MUSE SYSTEM Calculated R [place] -11 degrees MUSE SYSTEM Calculated T [place] -12 degrees MUSE SYSTEM INTERPRETATION Sinus rhythm with 1st degree A-V block Possible Left atrial enlargement Right bundle branch block Septal infarct , age undetermined Abnormal ECG When compared with ECG of 22-APR-2023 17:42, HI interval has increased QRS axis Shifted right Criteria for Lateral infarct are no longer Present Confirmed by MD Jesi, David Garcia ([id number]) on 04/28/2023 4:30:08 PM MUSE SYSTEM 04/27/2023 4:00 PM EDT 04/28/2023 4:30 PM EDT Georges Jacob MD ECG ORDERABLES MUSE SYSTEM * CT Head wo Contrast (Generic) (04/27/2023 3:41 PM EDT) Anatomical Region Laterality Modality Head Computed Tomogra phy Impressions 04/27/2023 3:50 PM EDT Slightly increased intraventricular hemorrhage. No additional significant change. Thank you for letting us participate in the care of this patient. ??If you are a health care provider and have any questions regarding this report, please contact the number below. ??For patients who have questions please contact the health manager managed care that requested your imaging first. ? Narrative 04/27/2023 3:50 PM EDT EXAMINATION: CT HEAD WO CONTRAST (GENERIC) CLINICAL HISTORY: Hydrocephalus worsening mental status, hydrochalus TECHNIQUE: CT head performed without intravenous contrast administration. COMPARISON: CT head 04/26/2023 FINDINGS: Stable parenchymal hemorrhage in the medial right cerebellum. Intraventricular extension into the fourth ventricle is similar. Dependent intraventricular blood in the occipital horns is slightly increased. A right frontal extraventricular drain is stable in position with tip near the right foramen of [place], and the ventricular caliber is not significantly changed. The basal cisterns are patent. No evidence of large acute infarction. Stable mild chronic small vessel disease. Osseous structures are unchanged. Procedure Note Troy Mota MD - 04/27/2023 EXAMINATION: CT HEAD WO CONTRAST (GENERIC) CLINICAL HISTORY: Hydrocephalus worsening mental status, hydrochalus TECHNIQUE: CT head performed without intravenous contrast administration. COMPARISON: CT head 04/26/2023 FINDINGS: Stable parenchymal hemorrhage in the medial right cerebellum.Intraventricular extension into the fourth ventricle is similar. Dependent intraventricularblood in the occipital horns is slightly increased. A right frontalextraventricular drain is stable in position with tip near the right foramen of Kearns, andthe ventricular caliber is not significantly changed. The basal cisterns arepatent. No evidence of large acute infarction. Stable mild chronic small vesseldisease. Osseous structures are unchanged. IMPRESSION Slightly increased intraventricular hemorrhage. No additionalsignificant change. Thank you for letting us participate in the care of this patient. If youare a health care provider and have any questions regarding this report,please contact the number below. For patients who have questions please contactthe health manager managed care that requested your imaging first. Georges Jacob MD IMG CT ORDERABLES * XR Chest One View (04/27/2023 1:45 PM EDT) Anatomical Region Laterality Modality Chest N/A Digital Radiogra phy Impressions 04/27/2023 4:40 PM EDT Endotracheal tube tip location difficult to visualize, suspected 1.5 cm proximal to nichole. Left lower lobe atelectasis. Small left pleural effusion. I have personally reviewed the image(s) and the resident's interpretation and agree with the findings, Amanda Smith MD at 04/27/2023 4:40 PM Thank you for letting us participate in the care of this patient. ??If you are a health care provider and have any questions regarding this report, please contact the number below. ??For patients who have questions please contact the health manager managed care that requested your imaging first. ? Electronically signed by: Amanda Smith MD, [facility] ([phone]), at 04/27/2023 4:40 PM Narrative 04/27/2023 4:40 PM EDT EXAMINATION: XR CHEST ONE VIEW CLINICAL HISTORY: ETT placement TECHNIQUE: 1 view of the chest COMPARISON: Chest radiograph 04/21/2023 FINDINGS: Support devices: * ??Endotracheal tube tip is poorly visualized due to exam technique, favored 1.5 cm from the nichole. * ??Enteric tube seen coursing below the diaphragm, tip excluded from the [id number]. * ??Right upper extremity PICC with tip within the proximal SVC. Low lung volumes with bronchovascular crowding. Left lower lobe atelectasis. Small left pleural effusion. No pneumothorax. No large pleural effusion. Cardiomediastinal contours are largely obscured though stable. No interval osseous change. Procedure Note Amanda Smith MD - 04/27/2023 EXAMINATION: XR CHEST ONE VIEW CLINICAL HISTORY: ETT placement TECHNIQUE: 1 view of the chest COMPARISON: Chest radiograph 04/21/2023 FINDINGS: Support devices: * Endotracheal tube tip is poorly visualized due to exam technique,favored 1.5 cm from the nichole. * Enteric tube seen coursing below the diaphragm, tip excluded from the [id number]. * Right upper extremity PICC with tip within the proximal SVC. Low lung volumes with bronchovascular crowding. Left lower lobeatelectasis. Small left pleural effusion. No pneumothorax. No large pleural effusion. Cardiomediastinal contours are largely obscured though stable. Nointerval osseous change. IMPRESSION Endotracheal tube tip location difficult to visualize, suspected 1.5 cmproximal to nichole. Left lower lobe atelectasis. Small left pleural effusion. I have personally reviewed the image(s) and the resident's interpretationand agree with the findings, Amanda Smith MD at 04/27/2023 4:40 PM Thank you for letting us participate in the care of this patient. If youare a health care provider and have any questions regarding this report,please contact the number below. For patients who have questions please contactthe health manager managed care that requested your imaging first. Electronically signed by: Amanda Smith MD, [facility]([phone]), at 04/27/2023 4:40 PM Georges Jacob MD IMG DX ORDERABLES * INTUBATION (04/27/2023 1:42 PM EDT) Narrative Georges Jacob MD - 04/27/2023 1:42 PM EDT Michelle Crawford PA ? 04/27/2023 ??1:54 PM Intubation Procedure Note Reason for Intubation: Airway protection and Hypoxemia. Procedure Diagnosis: acute respiratory failure Location of Procedure: ??NCCU . Risks and Benefits: The risks and benefits of this procedure were reviewed and informed consent was obtained obtained. Time Out: Prior to the start of the procedure, the patient's identity, intended procedure, site/side, correct patient positioning and presence of the site shawn was confirmed as applicable. The medical history and chart were reviewed to rule out potential contraindications to the planned procedure. Intubation Assessment: Additional Intubation Assessment: Preoxygenation was administered. Laryngoscope Blade and Size: ??CMAC D Blade The endotracheal tube size was 8 mm. The tube was cuffed. Common Adjuvant Equipment: A stylet was used. Rigid stylet An oral airway was not used. ?? A nasal airway was not used. ?? Additional Adjuvant Equipment: Type scope: ??Video laryngoscope [place] Intubation Catheter: no Combitube:no Intubating Laryngeal Mask Airway:none Laryngeal Mask Airway: none Other: n/a Intubation Method: other: video laryngoscopy IV Medications: 40 mg Etomidate 100 mg Rocuronium Other Medications: Other: none Insertion Attempts: There was 1 attempt Intubation Procedure Attempt 1: Provider name:Michelle Crawford PA-C A C-Mac Laryngoscopy with direct visualization using a D ??blade size Intubation was performed. A size ??8.0 ??was utilized. The endotracheal tube was cuffed. A Stylet was utilized. Intubation was successful.. Visualization of Vocal Chords: A Grade I view of the vocal cords was observed. Confirmation of Tube Placement: Chest X-ray ordered end tidal CO2 bilateral breath sounds Status Post Intubation: The patient was hemodynamically stable. Tube secured (at lip or nares): 24 cm at teeth Other post intubation status comments: Dr. Mark Jacob was health unit supervisor and present. MICHELET Bergman 04/27/2023 Georges Jacob MD PROCEDURE/MINOR SURG ICAL ORDERABLES * (ABNORMAL) BLOOD GAS 2 ARTERIAL (04/27/2023 12:49 PM EDT) pH, Arterial 7.29(Criti connie) 7.35 - 7.45 [facility] Comment:Noted by medical instrument technician. PCO2, Arterial 42 35 - 45 mmHg [facility] PO2, Arterial 88 85 - 104 mmHg [facility] Bicarbonate, Arterial 19.8(L) 20.0 - 26.0 mmol/L [facility] Base Excess, Arterial -6.8(L) -3.0 - 3.0 mmol/L [facility] Hgb Blood Gas 13.5(L) 13.7 - 16.5 g/dL [facility] Oxyhemoglobin, Arterial 94.8 94.0 - 97.0 % [facility] Carboxyhemoglob in, Arterial 0.8 % [facility] Comment: Nonsmokers: 0.5-1.5% COHB Smokers: Variable, but usually less than 10% Toxic: 20-30% COHB Lethal: Greater than 60% COHB Methemoglobin, Arterial 0.1 <=1.5 % [facility] Na Whole Blood 134(L) 135 - 145 mmol/L [facility] K Whole Blood 4.0 3.5 - 5.0 mmol/L [facility] Comment: Please note: Patients with WBC >100,000 may have falsely elevated Potassium levels. Contact the Clinical Chemistry Laboratory if there are any questions. ICa Whole Blood 1.21 1.15 - 1.33 mmol/L [facility] Comment: Note: ??Total bilirubin higher than 20 mg/dL may lead to falsely low ionized calcium. CL Whole Blood 102 98 - 107 mmol/L [facility] Gluc Whole Bld 138 65 - 199 mg/dL [facility] Comment:Diabetes: >=200 mg/d L plus symptoms. Lactate WB 0.6 0.5 - 2.2 mmol/L [facility] FIO2 Art 40 % [facility] PF Ratio Art 220 [facility] Blood 04/27/2023 12:4 9 PM EDT 04/27/2023 12:49 PM EDT Georges Jacob MD POINT OF CARE TEST O RDERABLES [facility] [place] [address] * (ABNORMAL) BLOOD GAS 2 ARTERIAL (04/27/2023 12:21 PM EDT) pH, Arterial 7.29(Criti connie) 7.35 - 7.45 [facility] Comment:Noted by medical instrument technician. PCO2, Arterial 37 35 - 45 mmHg [facility] PO2, Arterial 72(L) 85 - 104 mmHg [facility] Bicarbonate, Arterial 17.3(L) 20.0 - 26.0 mmol/L [facility] Base Excess, Arterial -9.3(L) -3.0 - 3.0 mmol/L [facility] Hgb Blood Gas 12.6(L) 13.7 - 16.5 g/dL [facility] Oxyhemoglobin, Arterial 92.3(L) 94.0 - 97.0 % [facility] Carboxyhemoglob in, Arterial 0.5 % [facility] Comment: Nonsmokers: 0.5-1.5% COHB Smokers: Variable, but usually less than 10% Toxic: 20-30% COHB Lethal: Greater than 60% COHB Methemoglobin, Arterial 0.1 <=1.5 % [facility] Na Whole Blood 134(L) 135 - 145 mmol/L [facility] K Whole Blood 3.7 3.5 - 5.0 mmol/L [facility] Comment: Please note: Patients with WBC >100,000 may have falsely elevated Potassium levels. Contact the Clinical Chemistry Laboratory if there are any questions. ICa Whole Blood 1.15 1.15 - 1.33 mmol/L [facility] Comment: Note: ??Total bilirubin higher than 20 mg/dL may lead to falsely low ionized calcium. CL Whole Blood 103 98 - 107 mmol/L [facility] Gluc Whole Bld 121 65 - 199 mg/dL [facility] Comment:Diabetes: >=200 mg/d L plus symptoms. Lactate WB 0.5 0.5 - 2.2 mmol/L [facility] FIO2 Art 40 % [facility] PF Ratio Art 180 [facility] Blood 04/27/2023 12:2 1 PM EDT 04/27/2023 12:21 PM EDT Georges Jacob MD POINT OF CARE TEST O RDERABLES Performing Organization Address [facility] Co de Phone Number [facility] [place] [address] * Magnesium (04/27/2023 12:13 PM EDT) Magnesium 0.93 0.69 - 1.07 mmol/L [facility] Blood 04/27/2023 12:1 3 PM EDT 04/27/2023 12:25 PM EDT Narrative Resulting Agency Comment Spec In Lab Georges Jacob MD CHEMISTRY ORDERABLES Performing Organization Address [facility] Co de Phone Number [facility] [place] [address] * (ABNORMAL) Electrolytes panel (04/27/2023 12:13 PM EDT) Sodium 132(L) 135 - 145 mmol/L [facility] Potassium 4.1 3.5 - 5.0 mmol/L [facility] Comment: Please note: ??Patients with WBC >100,000 may have falsely elevated Potassium levels. ??For accurate Potassium quantification in these patients send serum separator tube (gold top) for subsequent determinations. ??Contact the Clinical Chemistry Laboratory if there are any questions. Chloride 101 98 - 107 mmol/L [facility] Carbon Dioxide 22 22 - 31 mmol/L [facility] Anion Gap 9 5 - 15 mmol/L [facility] Blood 04/27/2023 12:1 3 PM EDT 04/27/2023 12:25 PM EDT Narrative Resulting Agency Comment Spec In Lab Savana Romero APRN CHEMISTRY ORDERAB LES Performing Organization Address [facility] de Phone Number [facility] [place] [address] * Magnesium (04/27/2023 5:57 AM EDT) Magnesium 0.92 0.69 - 1.07 mmol/L [facility] Blood 04/27/2023 5:57 AM EDT 04/27/2023 6:17 AM EDT Narrative Resulting Agency Comment Spec In Lab Georges Jacob MD CHEMISTRY ORDERABLES Performing Organization Address [facility] de Phone Number [facility] [place] [address] * (ABNORMAL) Electrolytes panel (04/27/2023 5:57 AM EDT) Sodium 129(L) 135 - 145 mmol/L [facility] Potassium 4.2 3.5 - 5.0 mmol/L [facility] Comment: Please note: ??Patients with WBC >100,000 may have falsely elevated Potassium levels. ??For accurate Potassium quantification in these patients send serum separator tube (gold top) for subsequent determinations. ??Contact the Clinical Chemistry Laboratory if there are any questions. Chloride 100 98 - 107 mmol/L [facility] Carbon Dioxide 20(L) 22 - 31 mmol/L [facility] Anion Gap 9 5 - 15 mmol/L [facility] Blood 04/27/2023 5:57 AM EDT 04/27/2023 6:17 AM EDT Narrative Resulting Agency Comment Spec In Lab Savana Romero APRN CHEMISTRY ORDERAB LES [facility] [place] [address] * Magnesium (04/27/2023 12:45 AM EDT) Magnesium 0.97 0.69 - 1.07 mmol/L [facility] Blood 04/27/2023 12:4 5 AM EDT 04/27/2023 12:51 AM EDT Narrative Resulting Agency Comment Spec In Lab Georges Jacob MD CHEMISTRY ORDERABLES Performing Organization Address [facility] Co de Phone Number [facility] [place] [address] * (ABNORMAL) Electrolytes panel (04/27/2023 12:45 AM EDT) Sodium 133(L) 135 - 145 mmol/L [facility] Potassium 3.8 3.5 - 5.0 mmol/L [facility] Comment: Please note: ??Patients with WBC >100,000 may have falsely elevated Potassium levels. ??For accurate Potassium quantification in these patients send serum separator tube (gold top) for subsequent determinations. ??Contact the Clinical Chemistry Laboratory if there are any questions. Chloride 102 98 - 107 mmol/L [facility] Carbon Dioxide 22 22 - 31 mmol/L [facility] Anion Gap 9 5 - 15 mmol/L [facility] Blood 04/27/2023 12:4 5 AM EDT 04/27/2023 12:51 AM EDT Narrative Resulting Agency Comment Spec In Lab Savana Romero APRN CHEMISTRY ORDERAB LES Performing Organization Address [facility] Co de Phone Number [facility] [place] [address] * (ABNORMAL) Magnesium (04/26/2023 6:30 PM EDT) Magnesium 1.11(H) 0.69 - 1.07 mmol/L [facility] Comment:result rechecked- cp o Blood 04/26/2023 6:30 PM EDT 04/26/2023 6:44 PM EDT Narrative Resulting Agency Comment Spec In Lab Georges Jacob MD CHEMISTRY ORDERABLES Performing Organization Address [facility] Co de Phone Number [facility] [place] [address] * (ABNORMAL) Electrolytes panel (04/26/2023 6:30 PM EDT) Sodium 135 135 - 145 mmol/L [facility] Potassium 4.1 3.5 - 5.0 mmol/L [facility] Comment: Please note: ??Patients with WBC >100,000 may have falsely elevated Potassium levels. ??For accurate Potassium quantification in these patients send serum separator tube (gold top) for subsequent determinations. ??Contact the Clinical Chemistry Laboratory if there are any questions. Chloride 104 98 - 107 mmol/L [facility] Carbon Dioxide 21(L) 22 - 31 mmol/L [facility] Anion Gap 10 5 - 15 mmol/L [facility] Blood 04/26/2023 6:30 PM EDT 04/26/2023 6:44 PM EDT Narrative Resulting Agency Comment Spec In Lab Savana Romero APRN CHEMISTRY ORDERAB LES Performing Organization Address [facility] Co de Phone Number [facility] [place] [address] * (ABNORMAL) Magnesium (04/26/2023 12:50 PM EDT) Magnesium 0.68(L) 0.69 - 1.07 mmol/L [facility] Blood 04/26/2023 12:5 0 PM EDT 04/26/2023 1:15 PM EDT Narrative Resulting Agency Comment Spec In Lab Georges Jacob MD CHEMISTRY ORDERABLES Performing Organization Address [facility] Co de Phone Number [facility] [place] [address] * (ABNORMAL) Electrolytes panel (04/26/2023 12:50 PM EDT) Sodium 134(L) 135 - 145 mmol/L [facility] Potassium 4.1 3.5 - 5.0 mmol/L [facility] Comment: Please note: ??Patients with WBC >100,000 may have falsely elevated Potassium levels. ??For accurate Potassium quantification in these patients send serum separator tube (gold top) for subsequent determinations. ??Contact the Clinical Chemistry Laboratory if there are any questions. Chloride 103 98 - 107 mmol/L [facility] Carbon Dioxide 20(L) 22 - 31 mmol/L [facility] Anion Gap 11 5 - 15 mmol/L [facility] Blood 04/26/2023 12:5 0 PM EDT 04/26/2023 1:15 PM EDT Narrative Resulting Agency Comment Spec In Lab Savana Romero OPERATIONS INTERN CHEMISTRY ORDERAB LES [facility] [place] [address] * CT Head wo Contrast (Generic) (04/26/2023 10:25 AM EDT) Anatomical Region Laterality Modality Head Computed Tomogra phy Impressions 04/26/2023 10:46 AM EDT Decreasing volume and density of intraventricular hemorrhage. Decreasing size of ventricular system. Additional findings noted above without acute interval changes. Thank you for letting us participate in the care of this patient. ??If you are a health care provider and have any questions regarding this report, please contact the number below. ??For patients who have questions please contact the health manager managed care that requested your imaging first. ? Narrative 04/26/2023 10:46 AM EDT EXAMINATION: CT HEAD WO CONTRAST (GENERIC) CLINICAL HISTORY: Stroke, follow up prior to clamping EVD TECHNIQUE: CT head performed without intravenous contrast administration. COMPARISON: 04/20/[address] and brain MRI. FINDINGS: Volume of intraventricular hemorrhage is decreasing, along with the caliber of the ventricular system. Right frontal approach ventricular drain is in stable position. Right cerebellar hematoma is decreasing in size and conspicuity. Foci of cortical ischemia along the medial surface of the left cerebral hemisphere appears nonprogressive. There is no acute confluent ischemic infarct. There is no evidence of significant intracranial mass effect, new hemorrhage or extra-axial collection. Similar paranasal sinus fluid and mucosal thickening compared to MRI. There are no interval osseous findings. Procedure Note Ned Ya DO - 04/26/2023 EXAMINATION: CT HEAD WO CONTRAST (GENERIC) CLINICAL HISTORY: Stroke, follow up prior to clamping EVD TECHNIQUE: CT head performed without intravenous contrast administration. COMPARISON: 04/20/[address] and brain MRI. FINDINGS: Volume of intraventricular hemorrhage is decreasing, along with thecaliber of the ventricular system. Right frontal approach ventricular drain is instable position. Right cerebellar hematoma is decreasing in size and conspicuity. Foci of cortical ischemia along the medial surface of the left cerebral hemisphere appears nonprogressive. There is no acute confluent ischemicinfarct. There is no evidence of significant intracranial mass effect, newhemorrhage or extra-axial collection. Similar paranasal sinus fluid and mucosal thickening compared to MRI. There are no interval osseous findings. IMPRESSION Decreasing volume and density of intraventricular hemorrhage. Decreasingsize of ventricular system. Additional findings noted above without acuteinterval changes. Thank you for letting us participate in the care of this patient. If youare a health care provider and have any questions regarding this report,please contact the number below. For patients who have questions please contactthe health manager managed care that requested your imaging first. Savana Romero OPERATIONS INTERN IMG CT ORDERABLES * POCT Glucose (04/26/2023 7:55 AM EDT) [facility] Signature Glucose, POC 126 65 - 199 mg/dL [facility] Comment: Supplemental ranges: <140 mg/dL before meals <180 mg/dL all other times of the day Blood 04/26/2023 7:55 AM EDT 04/26/2023 7:55 AM EDT Georges Jacob MD POINT OF CARE TEST O RDERABLES Performing Organization Address [facility] Co de Phone Number [facility] [place] [address] * Electrolytes panel (04/26/2023 6:26 AM EDT) Sodium 135 135 - 145 mmol/L [facility] Potassium 3.8 3.5 - 5.0 mmol/L [facility] Comment: Please note: ??Patients with WBC >100,000 may have falsely elevated Potassium levels. ??For accurate Potassium quantification in these patients send serum separator tube (gold top) for subsequent determinations. ??Contact the Clinical Chemistry Laboratory if there are any questions. Chloride 103 98 - 107 mmol/L [facility] Carbon Dioxide 23 22 - 31 mmol/L [facility] Anion Gap 9 5 - 15 mmol/L [facility] Blood 04/26/2023 6:26 AM EDT 04/26/2023 6:35 AM EDT Narrative Resulting Agency Comment Spec In Lab Savana Romero APRN CHEMISTRY ORDERAB LES Performing Organization Address [facility] Co de Phone Number [facility] [address] * POCT Glucose (04/26/2023 4:35 AM EDT) Glucose, POC 124 65 - 199 mg/dL [facility] Comment: Supplemental ranges: <140 mg/dL before meals <180 mg/dL all other times of the day Blood 04/26/2023 4:35 AM EDT 04/26/2023 4:35 AM EDT Georges Jacob MD POINT [place] [address] * (ABNORMAL) Differential, Automated (04/26/2023 12:20 AM EDT) Neutrophil % 68.3 % [facility] Neutrophil Absolute 4.43 1.70 - 6.10 x10(3)/mc L [facility] Lymph % 11.9 % [facility] Lymphocytes Abs 0.8(L) 0.9 - 3.2 x10(3)/mc L [facility] Monocyte % 16.7 % [facility] Monocyte Abs 1.1(H) 0.3 - 0.9 x10(3)/mc L [facility] Eos % 2.5 % [facility] Eosinophils Abs 0.2 0.0 - 0.4 x10(3)/ L [facility] Basophil % 0.3 % [facility] Baso Absolute 0.0 0.0 - 0.1 x10(3)/mc L [facility] Immature Gran % 0.30 % [facility] Comment: Immature granulocytes(IG's)percentage and absolute count will include metamyelocytes, myelocytes, and promyelocytes. Blood smears from CBCs yielding IG's will be scanned manually for concordance. If this scan disagrees with the automated IG or if promyelocytes are noted, a manual differential will be performed. Immature Gran Absolute 0.02 0.00 - 0.04 x10(3)/ L [facility] Blood 04/26/2023 12:2 0 AM EDT 04/26/2023 12:55 AM EDT Narrative Resulting Agency Comment Spec In Lab Nilda Jeronimo OPERATIONS [place] [address] * (ABNORMAL) Hemogram (04/26/2023 12:20 AM EDT) White Blood Cell 6.5 4.0 - 9.5 x10(3)/mc L [facility] Red Blood Cell 3.87(L) 4.58 - 5.54 x10(6)/mc L [facility] Hemoglobin 12.2(L) 13.7 - 16.5 g/dL [facility] Hematocrit 36.3(L) 40.5 - 48.5 % [facility] Mean Cell Volume 93.8(H) 82.9 - 93.1 fL [facility] Mean Cell Hemoglobin 31.5 27.5 - 32.1 pg [facility] Mean Cell Hemoglobin Concentration 33.6 32.0 - 35.7 g/dL [facility] Platelet 186 145 - 357 x10(3)/mc L [facility] RDW Standard Deviation 44.7 36.0 - 45.0 fL [facility] RDW coefficient of variation 13.0 11.4 - 13.8 % [facility] Mean Platelet Volume 11.3 7.6 - 12.9 fL [facility] NRBC% auto 0.0 % [facility] NRBC Absolute 0.000 0.000 - 0.000 x10(3)/mc L [facility] Blood 04/26/2023 12:2 0 AM EDT 04/26/2023 12:55 AM EDT Narrative Resulting Agency Comment Spec In Lab Nilda Jeronimo OPERATIONS INTERN HEMATOLOGY ORDERAB LES Performing Organization Address City/[facility] Co de Phone Number [facility] [place] [address] * (ABNORMAL) Phosphorus (04/26/2023 12:20 AM EDT) Phosphorus 2.4(L) 2.5 - 4.5 mg/dL [facility] Blood 04/26/2023 12:2 0 AM EDT 04/26/2023 12:55 AM EDT Narrative Resulting Agency Comment Spec In Lab Nilda Teetee Phani OPERATIONS INTERN CHEMISTRY ORDERABL ES Performing Organization Address City/[facility] Co de Phone Number [facility] [place] [address] * Magnesium (04/26/2023 12:20 AM EDT) Magnesium 0.71 0.69 - 1.07 mmol/L [facility] Blood 04/26/2023 12:2 0 AM EDT 04/26/2023 12:55 AM EDT Narrative Resulting Agency Comment Spec In Lab Nilda Jeronimo OPERATIONS INTERN CHEMISTRY ORDERABL ES [facility] [place] [address] * (ABNORMAL) Basic Metabolic Panel (non-fasting) (04/26/2023 12:20 AM EDT) Glucose 149 65 - 199 mg/dL [facility] Comment:Diabetes: >=200 mg/d L plus symptoms Blood Urea Nitrogen 24(H) 10 - 20 mg/dL [facility] Creatinine 1.07 0.80 - 1.50 mg/dL [facility] Sodium 134(L) 135 - 145 mmol/L [facility] Potassium 4.2 3.5 - 5.0 mmol/L [facility] Comment: Please note: ??Patients with WBC >100,000 may have falsely elevated Potassium levels. ??For accurate Potassium quantification in these patients send serum separator tube (gold top) for subsequent determinations. ??Contact the Clinical Chemistry Laboratory if there are any questions. Chloride 103 98 - 107 mmol/L [facility] Carbon Dioxide 23 22 - 31 mmol/L [facility] Anion Gap 8 5 - 15 mmol/L [facility] Calcium 8.4(L) 8.5 - 10.5 mg/dL [facility] Est Glomerular Filtration Rate 77 >=60 mL/min/1. 73 m?? [facility] Comment: This patient's estimated GFR [...] and symptoms in addition to eGFR. Blood 04/26/2023 12:2 0 AM EDT 04/26/2023 12:55 AM EDT Narrative Resulting Agency Comment Spec In Lab Nilda Jeronimo APRN CHEMISTRY ORDERABL ES Performing Organization Address City/[facility] Co de Phone Number [facility] [place] [address] * POCT Glucose (04/26/2023 12:16 AM EDT) Glucose, POC 145 65 - 199 mg/dL [facility] Comment: Supplemental ranges: <140 mg/dL before meals <180 mg/dL all other times of the day Blood 04/26/2023 12:1 6 AM EDT 04/26/2023 12:16 AM EDT Georges Jacob MD POINT OF CARE TEST O RDERATAYLOR Performing Organization Address [facility] Co de Phone Number [facility] [place] [address] * POCT Glucose (04/25/2023 7:55 PM EDT) Glucose, POC 126 65 - 199 mg/dL [facility] Comment: Supplemental ranges: <140 mg/dL before meals <180 mg/dL all other times of the day Blood 04/25/2023 7:55 PM EDT 04/25/2023 7:55 PM EDT Georges Jacob MD POINT OF CARE TEST O DYANAERATAYLOR Performing Organization Address [facility] Co de Phone Number [facility] [place] [address] * (ABNORMAL) Electrolytes panel (04/25/2023 6:39 PM EDT) Sodium 131(L) 135 - 145 mmol/L [facility] Potassium 4.0 3.5 - 5.0 mmol/L [facility] Comment: Please note: ??Patients with WBC >100,000 may have falsely elevated Potassium levels. ??For accurate Potassium quantification in these patients send serum separator tube (gold top) for subsequent determinations. ??Contact the Clinical Chemistry Laboratory if there are any questions. Chloride 102 98 - 107 mmol/L [facility] Carbon Dioxide 22 22 - 31 mmol/L [facility] Anion Gap 7 5 - 15 mmol/L [facility] Blood 04/25/2023 6:39 PM EDT 04/25/2023 6:49 PM EDT Narrative Resulting Agency Comment Spec In Lab Savana Romero OPERATIONS INTERN CHEMISTRY ORDERAB LES Performing Organization Address City/[facility] Co de Phone Number [facility] [place] [address] * POCT Glucose (04/25/2023 3:13 PM EDT) Glucose, POC 132 65 - 199 mg/dL [facility] Comment: Supplemental ranges: <140 mg/dL before meals <180 mg/dL all other times of the day Blood 04/25/2023 3:13 PM EDT 04/25/2023 3:13 PM EDT Georges Jacob MD POINT OF CARE TEST O RDERABLES Performing Organization Address [facility] Co de Phone Number [facility] [place] [address] * (ABNORMAL) Electrolytes panel (04/25/2023 12:21 PM EDT) Sodium 133(L) 135 - 145 mmol/L [facility] Potassium 3.9 3.5 - 5.0 mmol/L [facility] Comment: Please note: ??Patients with WBC >100,000 may have falsely elevated Potassium levels. ??For accurate Potassium quantification in these patients send serum separator tube (gold top) for subsequent determinations. ??Contact the Clinical Chemistry Laboratory if there are any questions. Chloride 102 98 - 107 mmol/L [facility] Carbon Dioxide 22 22 - 31 mmol/L [facility] Anion Gap 9 5 - 15 mmol/L [facility] Blood 04/25/2023 12:2 1 PM EDT 04/25/2023 12:36 PM EDT Narrative Resulting Agency Comment Spec In Lab Savana Romero APRN CHEMISTRY ORDERAB LES Performing Organization Address [facility] Co de Phone Number [facility] [place] [address] * POCT Glucose (04/25/2023 11:36 AM EDT) Glucose, POC 131 65 - 199 mg/dL [facility] Comment: Supplemental ranges: <140 mg/dL before meals <180 mg/dL all other times of the day Blood 04/25/2023 11:3 6 AM EDT 04/25/2023 11:36 AM EDT Georges Jacob MD POINT OF CARE TEST O RDERATAYLOR Performing Organization Address [facility] Co de Phone Number [facility] [place] [address] * POCT Glucose (04/25/2023 7:53 AM EDT) Glucose, POC 135 65 - 199 mg/dL [facility] Comment: Supplemental ranges: <140 mg/dL before meals <180 mg/dL all other times of the day Blood 04/25/2023 7:53 AM EDT 04/25/2023 7:53 AM EDT Georges Jacob MD POINT OF CARE TEST O SARAH Performing Organization Address [facility] Co de Phone Number [facility] [place] [address] * POCT Glucose (04/25/2023 4:46 AM EDT) Glucose, POC 137 65 - 199 mg/dL [facility] Comment: Supplemental ranges: <140 mg/dL before meals <180 mg/dL all other times of the day Blood 04/25/2023 4:46 AM EDT 04/25/2023 4:46 AM EDT Georges Jacob MD POINT OF CARE TEST O RDERABLES Performing Organization Address City/[facility]/[place] [address] * (ABNORMAL) Differential, Automated (04/25/2023 1:10 AM EDT) Neutrophil % 70.6 % [facility] Neutrophil Absolute 4.80 1.70 - 6.10 x10(3)/mc L [facility] Lymph % 11.6 % [facility] Lymphocytes Abs 0.8(L) 0.9 - 3.2 x10(3)/mc L [facility] Monocyte % 13.7 % [facility] Monocyte Abs 0.9 0.3 - 0.9 x10(3)/ L [facility] Eos % 3.4 % [facility] Eosinophils Abs 0.2 0.0 - 0.4 x10(3)/[facility] Basophil % 0.3 % [facility] Baso Absolute 0.0 0.0 - 0.1 x10(3)/mc L [facility] Immature Gran % 0.40 % [facility] Comment: Immature granulocytes(IG's)percentage and absolute count will include metamyelocytes, myelocytes, and promyelocytes. Blood smears from CBCs yielding IG's will be scanned manually for concordance. If this scan disagrees with the automated IG or if promyelocytes are noted, a manual differential will be performed. Immature Gran Absolute 0.03 0.00 - 0.04 x10(3)/ L [facility] Blood 04/25/2023 1:10 AM EDT 04/25/2023 1:17 AM EDT Narrative Resulting Agency Comment Spec In Lab Nilda Jeronimo OPERATIONS INTERN HEMATOLOGY ORDERAB LES Performing Organization Address City/[facility]/[place] [address] * (ABNORMAL) Hemogram (04/25/2023 1:10 AM EDT) White Blood Cell 6.8 4.0 - 9.5 x10(3)/mc L [facility] Red Blood Cell 3.95(L) 4.58 - 5.54 x10(6)/mc L [facility] Hemoglobin 12.3(L) 13.7 - 16.5 g/dL [facility] Hematocrit 37.0(L) 40.5 - 48.5 % [facility] Mean Cell Volume 93.7(H) 82.9 - 93.1 fL [facility] Mean Cell Hemoglobin 31.1 27.5 - 32.1 pg [facility] Mean Cell Hemoglobin Concentration 33.2 32.0 - 35.7 g/dL [facility] Platelet 184 145 - 357 x10(3)/mc L [facility] RDW Standard Deviation 44.9 36.0 - 45.0 fL [facility] RDW coefficient of variation 13.0 11.4 - 13.8 % [facility] Mean Platelet Volume 11.3 7.6 - 12.9 fL [facility] NRBC% auto 0.0 % [facility] NRBC Absolute 0.000 0.000 - 0.000 x10(3)/mc L [facility] Blood 04/25/2023 1:10 AM EDT 04/25/2023 1:17 AM EDT Narrative Resulting Agency Comment Spec In Lab Nilda Jeronimo OPERATIONS INTERN HEMATOLOGY ORDERAB LES [facility] [place] [address] * Phosphorus (04/25/2023 1:10 AM EDT) Phosphorus 2.6 2.5 - 4.5 mg/dL [facility] Blood 04/25/2023 1:10 AM EDT 04/25/2023 1:17 AM EDT Narrative Resulting Agency Comment Spec In Lab Nilda Jeronimo OPERATIONS INTERN CHEMISTRY ORDERABL ES [facility] [place] [address] * Magnesium (04/25/2023 1:10 AM EDT) Magnesium 0.75 0.69 - 1.07 mmol/L [facility] Blood 04/25/2023 1:10 AM EDT 04/25/2023 1:17 AM EDT Narrative Resulting Agency Comment Spec In Lab Nilda Jeronimo OPERATIONS INTERN CHEMISTRY ORDERABL ES [facility] [place] [address] * Basic Metabolic Panel (non-fasting) (04/25/2023 1:10 AM EDT) Glucose 142 65 - 199 mg/dL [facility] Comment:Diabetes: >=200 mg/d L plus symptoms Blood Urea Nitrogen 17 10 - 20 mg/dL [facility] Creatinine 0.93 0.80 - 1.50 mg/dL [facility] Sodium 136 135 - 145 mmol/L [facility] Potassium 4.1 3.5 - 5.0 mmol/L [facility] Comment: Please note: ??Patients with WBC >100,000 may have falsely elevated Potassium levels. ??For accurate Potassium quantification in these patients send serum separator tube (gold top) for subsequent determinations. ??Contact the Clinical Chemistry Laboratory if there are any questions. Chloride 105 98 - 107 mmol/L [facility] Carbon Dioxide 23 22 - 31 mmol/L [facility] Anion Gap 8 5 - 15 mmol/L [facility] Calcium 8.6 8.5 - 10.5 mg/dL [facility] Est Glomerular Filtration Rate 91 >=60 mL/min/1. 73 m?? [facility] Comment: This patient's estimated GFR [...] and symptoms in addition to eGFR. Blood 04/25/2023 1:10 AM EDT 04/25/2023 1:17 AM EDT Narrative Resulting Agency Comment Spec In Lab Nilda Jeronimo APRN CHEMISTRY ORDERABL ES Performing Organization Address City/[facility] Co de Phone Number [facility] [place] [address] * POCT Glucose (04/25/2023 12:50 AM EDT) Glucose, POC 129 65 - 199 mg/dL [facility] Comment: Supplemental ranges: <140 mg/dL before meals <180 mg/dL all other times of the day Blood 04/25/2023 12:5 0 AM EDT 04/25/2023 12:50 AM EDT Georges Jacob MD POINT OF CARE TEST O RDERABLES Performing Organization Address [facility] Co de Phone Number [facility] [place] [address] * POCT Glucose (04/24/2023 8:10 PM EDT) Glucose, POC 94 65 - 199 mg/dL [facility] Comment: Supplemental ranges: <140 mg/dL before meals <180 mg/dL all other times of the day Blood 04/24/2023 8:10 PM EDT 04/24/2023 8:10 PM EDT Georges Jacob MD POINT OF CARE TEST O SARAH Performing Organization Address City/[facility] Co de Phone Number [facility] [place] [address] * POCT Glucose (04/24/2023 3:30 PM EDT) Glucose, POC 121 65 - 199 mg/dL [facility] Comment: Supplemental ranges: <140 mg/dL before meals <180 mg/dL all other times of the day Blood 04/24/2023 3:30 PM EDT 04/24/2023 3:30 PM EDT Georges Jacob MD POINT OF CARE TEST O RDERABLES [facility] [place] [address] * POCT Glucose (04/24/2023 11:17 AM EDT) Glucose, POC 129 65 - 199 mg/dL [facility] Comment: Supplemental ranges: <140 mg/dL before meals <180 mg/dL all other times of the day Blood 04/24/2023 11:1 7 AM EDT 04/24/2023 11:17 AM EDT Tana Smith MD POINT OF CARE TEST O RDERABLES Performing Organization Address City/[facility]/ZIP Co de Phone Number [facility] [place] [address] * POCT Glucose (04/24/2023 7:32 AM EDT) Glucose, POC 117 65 - 199 mg/dL [facility] Comment: Supplemental ranges: <140 mg/dL before meals <180 mg/dL all other times of the day Blood 04/24/2023 7:32 AM EDT 04/24/2023 7:32 AM EDT Tana Smith MD POINT OF CARE TEST O RDERABLES Performing Organization Address City/[facility]/ZIP Co de Phone Number [facility] [place] [address] * POCT Glucose (04/24/2023 4:05 AM EDT) Glucose, POC 122 65 - 199 mg/dL [facility] Comment: Supplemental ranges: <140 mg/dL before meals <180 mg/dL all other times of the day Blood 04/24/2023 4:05 AM EDT 04/24/2023 4:05 AM EDT Tana Smith MD POINT OF CARE TEST O RDERABLES [facility] [place] [address] * (ABNORMAL) Differential, Automated (04/24/2023 12:20 AM EDT) Pathologist [facility] Neutrophil % 70.9 % [facility] Neutrophil Absolute 5.46 1.70 - 6.10 x10(3)/[facility] Lymph % 11.7 % [facility] Lymphocytes Abs 0.9 0.9 - 3.2 x10(3)/[facility] Monocyte % 12.4 % [facility] Monocyte Abs 1.0(H) 0.3 - 0.9 x10(3)/[facility] Eos % 4.4 % [facility] Eosinophils Abs 0.3 0.0 - 0.4 x10(3)/[facility] Basophil % 0.3 % [facility] Baso Absolute 0.0 0.0 - 0.1 x10(3)/[facility] Immature Gran % 0.30 % [facility] Comment: Immature granulocytes(IG's)percentage and absolute count will include metamyelocytes, myelocytes, and promyelocytes. Blood smears from CBCs yielding IG's will be scanned manually for concordance. If this scan disagrees with the automated IG or if promyelocytes are noted, a manual differential will be performed. Immature Gran Absolute 0.02 0.00 - 0.04 x10(3)/ L [facility] Blood 04/24/2023 12:2 0 AM EDT 04/24/2023 12:29 AM EDT Narrative Resulting Agency Comment Spec In Lab Nilda Jeronimo OPERATIONS INTERN HEMATOLOGY ORDERAB LES [facility] [place] [address] * (ABNORMAL) Hemogram (04/24/2023 12:20 AM EDT) White Blood Cell 7.7 4.0 - 9.5 x10(3)/ L [facility] Red Blood Cell 3.93(L) 4.58 - 5.54 x10(6)/[facility] Hemoglobin 12.3(L) 13.7 - 16.5 g/dL [facility] Hematocrit 37.0(L) 40.5 - 48.5 % [facility] Mean Cell Volume 94.1(H) 82.9 - 93.1 fL [facility] Mean Cell Hemoglobin 31.3 27.5 - 32.1 pg [facility] Mean Cell Hemoglobin Concentration 33.2 32.0 - 35.7 g/dL [facility] Platelet 181 145 - 357 x10(3)/mc L [facility] RDW Standard Deviation 45.4(H) 36.0 - 45.0 fL [facility] RDW coefficient of variation 13.2 11.4 - 13.8 % [facility] Mean Platelet Volume 11.1 7.6 - 12.9 fL [facility] NRBC% auto 0.0 % [facility] NRBC Absolute 0.000 0.000 - 0.000 x10(3)/mc L [facility] Blood 04/24/2023 12:2 0 AM EDT 04/24/2023 12:29 AM EDT Narrative Resulting Agency Comment Spec In Lab Nilda Kingsley Phani OPERATIONS INTERN HEMATOLOGY ORDERAB LES Performing Organization Address City/[facility]/ZIP Co de Phone Number [facility] [place] [address] * Phosphorus (04/24/2023 12:20 AM EDT) Phosphorus 3.0 2.5 - 4.5 mg/dL [facility] Blood 04/24/2023 12:2 0 AM EDT 04/24/2023 12:29 AM EDT Narrative Resulting Agency Comment Spec In Lab Nilda Kingsley Phani OPERATIONS INTERN CHEMISTRY ORDERABL ES Performing Organization Address City/[facility]/ZIP Co de Phone Number [facility] [place] [address] * Magnesium (04/24/2023 12:20 AM EDT) Magnesium 0.75 0.69 - 1.07 mmol/L [facility] Blood 04/24/2023 12:2 0 AM EDT 04/24/2023 12:29 AM EDT Narrative Resulting Agency Comment Spec In Lab Nilda Jeronimo OPERATIONS INTERN CHEMISTRY ORDERABL ES [facility] [place] [address] * (ABNORMAL) Basic Metabolic Panel (non-fasting) (04/24/2023 12:20 AM EDT) Glucose 124 65 - 199 mg/dL [facility] Comment:Diabetes: >=200 mg/d L plus symptoms Blood Urea Nitrogen 24(H) 10 - 20 mg/dL [facility] Creatinine 0.93 0.80 - 1.50 mg/dL [facility] Sodium 139 135 - 145 mmol/L [facility] Potassium 4.5 3.5 - 5.0 mmol/L [facility] Comment: Please note: ??Patients with WBC >100,000 may have falsely elevated Potassium levels. ??For accurate Potassium quantification in these patients send serum separator tube (gold top) for subsequent determinations. ??Contact the Clinical Chemistry Laboratory if there are any questions. Chloride 107 98 - 107 mmol/L [facility] Carbon Dioxide 21(L) 22 - 31 mmol/L [facility] Anion Gap 11 5 - 15 mmol/L [facility] Calcium 8.4(L) 8.5 - 10.5 mg/dL [facility] Est Glomerular Filtration Rate 91 >=60 mL/min/1. 73 m?? [facility] Comment: This patient's estimated GFR [...] and symptoms in addition to eGFR. Blood 04/24/2023 12:2 0 AM EDT 04/24/2023 12:29 AM EDT Narrative Resulting Agency Comment Spec In Lab Nilda Kingsley Jeronimo OPERATIONS INTERN CHEMISTRY ORDERABL ES Performing Organization Address [facility]/ZIP Co de Phone Number [facility] [place] [address] * POCT Glucose (04/24/2023 12:14 AM EDT) Glucose, POC 126 65 - 199 mg/dL [facility] Comment: Supplemental ranges: <140 mg/dL before meals <180 mg/dL all other times of the day Blood 04/24/2023 12:1 4 AM EDT 04/24/2023 12:14 AM EDT Tana Smith MD POINT OF CARE TEST O RDERABLES Performing Organization Address [facility] Co de Phone Number [facility] [place] [address] * POCT Glucose (04/23/2023 8:03 PM EDT) Glucose, POC 105 65 - 199 mg/dL [facility] Comment: Supplemental ranges: <140 mg/dL before meals <180 mg/dL all other times of the day Blood 04/23/2023 8:03 PM EDT 04/23/2023 8:03 PM EDT Tana Smith MD POINT OF CARE TEST O RDERABLES Performing Organization Address [facility] Co de Phone Number [facility] [place] [place] [address] * XR Abdomen 1 view (Generic) (04/23/2023 5:15 PM EDT) Anatomical Region Laterality Modality Abdomen N/A Digital Radiogra phy Impressions 04/23/2023 5:23 PM EDT 1. Enteric tube tip terminates in the distal stomach. Thank you for letting us participate in the care of this patient. ??If you are a health care provider and have any questions regarding this report, please contact the number below. ??For patients who have questions please contact the health manager managed care that requested your imaging first. ? Electronically signed by: Royal Michael MD, [facility] ??([phone]), at 04/23/2023 5:23 PM Narrative 04/23/2023 5:23 PM EDT EXAMINATION: XR ABDOMEN 1 VIEW (GENERIC) CLINICAL HISTORY: DHT placement TECHNIQUE: Portable AP semiupright view abdomen COMPARISON: Abdominal radiograph 04/18/2023, CTA chest abdomen pelvis 04/22/2023 FINDINGS: The tip of an enteric tube projects over the expected location of the distal stomach. Tip of a central venous catheter is seen in the right atrium. Minimal streaky subsegmental atelectasis at the left lung base. Mild to moderate gaseous distention of the stomach. Some gas and/or stool seen within nondilated loops of small bowel and colon. No acute osseous abnormality. Procedure Note Royal Michael MD - 04/23/2023 EXAMINATION: XR ABDOMEN 1 VIEW (GENERIC) CLINICAL HISTORY: DHT placement TECHNIQUE: Portable AP semiupright view abdomen COMPARISON: Abdominal radiograph 04/18/2023, CTA chest abdomen pelvis 04/22/2023 FINDINGS: The tip of an enteric tube projects over the expected location of thedistal stomach. Tip of a central venous catheter is seen in the right atrium.Minimal streaky subsegmental atelectasis at the left lung base. Mild to moderategaseous distention of the stomach. Some gas and/or stool seen within nondilatedloops of small bowel and colon. No acute osseous abnormality. IMPRESSION 1. Enteric tube tip terminates in the distal stomach. Thank you for letting us participate in the care of this patient. If youare a health care provider and have any questions regarding this report,please contact the number below. For patients who have questions please contactthe health manager managed care that requested your imaging first. Electronically signed by: Royal Michael MD, [facility]([phone]), at 04/23/2023 5:23 PM Vignesh Epstein APRN IMG DX ORDERABLES * POCT Glucose (04/23/2023 3:46 PM EDT) Glucose, POC 112 65 - 199 mg/dL [facility] Comment: Supplemental ranges: <140 mg/dL before meals <180 mg/dL all other times of the day Blood 04/23/2023 3:46 PM EDT 04/23/2023 3:46 PM EDT Tana Smith MD POINT OF CARE TEST O RDERABLES Performing Organization Address [facility] Co de Phone Number [facility] [place] [place] [address] * POCT Glucose (04/23/2023 11:34 AM EDT) Glucose, POC 119 65 - 199 mg/dL [facility] Comment: Supplemental ranges: <140 mg/dL before meals <180 mg/dL all other times of the day Blood 04/23/2023 11:3 4 AM EDT 04/23/2023 11:34 AM EDT Tana Smith MD POINT OF CARE TEST O RDERABLES Performing Organization Address [place]/[facility] Co de Phone Number [facility] [place] [address] * POCT Glucose (04/23/2023 8:00 AM EDT) Glucose, POC 117 65 - 199 mg/dL [facility] Comment: Supplemental ranges: <140 mg/dL before meals <180 mg/dL all other times of the day Blood 04/23/2023 8:00 AM EDT 04/23/2023 8:00 AM EDT Tana Smith MD POINT OF CARE TEST O RDERABLES [facility] [place] [place] [address] * POCT Glucose (04/23/2023 4:00 AM EDT) Glucose, POC 126 65 - 199 mg/dL [facility] Comment: Supplemental ranges: <140 mg/dL before meals <180 mg/dL all other times of the day Blood 04/23/2023 4:00 AM EDT 04/23/2023 4:00 AM EDT Tana Smith MD POINT OF CARE TEST O RDERABLES Performing Organization Address [facility] [place] [address] * ABORh Type Manual (04/23/2023 12:24 AM EDT) ABORH TYPE A POSITIVE [facility] 04/23/2023 12:2 4 AM EDT 04/23/2023 12:24 AM EDT Dorina TAFOYA BLOOD BANK LAB ORDERABLES Performing Organization Address [facility] Co de Phone Number [facility] [place] [address] * ABORH Recheck Status (04/23/2023 12:24 AM EDT) ABORH Type Recheck Completed [facility] Blood 04/23/2023 12:2 4 AM EDT 04/23/2023 12:33 AM EDT Narrative Resulting Agency Comment Spec In Lab Dorina TAFOYA BLOOD BANK LAB ORDERABLES Performing Organization Address [facility] Co de Phone Number [facility] [place] [address] * (ABNORMAL) Differential, Automated (04/23/2023 12:24 AM EDT) Neutrophil % 69.4 % [facility] Neutrophil Absolute 5.86 1.70 - 6.10 x10(3)/mc L [facility] Lymph % 13.8 % [facility] Lymphocytes Abs 1.2 0.9 - 3.2 x10(3)/ L [facility] Monocyte % 13.0 % [facility] Monocyte Abs 1.1(H) 0.3 - 0.9 x10(3)/ L [facility] Eos % 3.1 % [facility] Eosinophils Abs 0.3 0.0 - 0.4 x10(3)/[facility] Basophil % 0.5 % [facility] Baso Absolute 0.0 0.0 - 0.1 x10(3)/ L [facility] Immature Gran % 0.20 % [facility] Comment: Immature granulocytes(IG's)percentage and absolute count will include metamyelocytes, myelocytes, and promyelocytes. Blood smears from CBCs yielding IG's will be scanned manually for concordance. If this scan disagrees with the automated IG or if promyelocytes are noted, a manual differential will be performed. Immature Gran Absolute 0.02 0.00 - 0.04 x10(3)/ L [facility] Blood 04/23/2023 12:2 4 AM EDT 04/23/2023 12:36 AM EDT Narrative Resulting Agency Comment Spec In Lab Nilda Teetee Jeronimo OPERATIONS INTERN HEMATOLOGY ORDERAB LES Performing Organization Address [place]/[facility] Co de Phone Number [facility] [place] [address] * (ABNORMAL) Hemogram (04/23/2023 12:24 AM EDT) White Blood Cell 8.4 4.0 - 9.5 x10(3)/ L [facility] Red Blood Cell 4.18(L) 4.58 - 5.54 x10(6)/[facility] Hemoglobin 13.0(L) 13.7 - 16.5 g/dL [facility] Hematocrit 39.7(L) 40.5 - 48.5 % [facility] Mean Cell Volume 95.0(H) 82.9 - 93.1 fL [facility] Mean Cell Hemoglobin 31.1 27.5 - 32.1 pg [facility] Mean Cell Hemoglobin Concentration 32.7 32.0 - 35.7 g/dL [facility] Platelet 190 145 - 357 x10(3)/mc L [facility] RDW Standard Deviation 48.5(H) 36.0 - 45.0 fL [facility] RDW coefficient of variation 13.8 11.4 - 13.8 % [facility] Mean Platelet Volume 11.1 7.6 - 12.9 fL [facility] NRBC% auto 0.0 % [facility] NRBC Absolute 0.000 0.000 - 0.000 x10(3)/mc L [facility] Blood 04/23/2023 12:2 4 AM EDT 04/23/2023 12:36 AM EDT Narrative Resulting Agency Comment Spec In Lab Nilda Jeronimo APRN HEMATOLOGY ORDERAB LES Performing Organization Address [facility] de Phone Number [facility] [place] [address] * Phosphorus (04/23/2023 12:24 AM EDT) Phosphorus 3.2 2.5 - 4.5 mg/dL [facility] Blood 04/23/2023 12:2 4 AM EDT 04/23/2023 12:36 AM EDT Narrative Resulting Agency Comment Spec In Lab Nilda Jeronimo OPERATIONS INTERN CHEMISTRY ORDERABL ES Performing Organization Address [facility] de Phone Number [facility] [place] [address] * Magnesium (04/23/2023 12:24 AM EDT) Magnesium 0.80 0.69 - 1.07 mmol/L [facility] Blood 04/23/2023 12:2 4 AM EDT 04/23/2023 12:36 AM EDT Narrative Resulting Agency Comment Spec In Lab Nilda Jeronimo OPERATIONS INTERN CHEMISTRY ORDERABL ES Performing Organization Address [facility]/ZIP Co de Phone Number [facility] [place] [address] * (ABNORMAL) Basic Metabolic Panel (non-fasting) (04/23/2023 12:24 AM EDT) Glucose 134 65 - 199 mg/dL [facility] Comment:Diabetes: >=200 mg/d L plus symptoms Blood Urea Nitrogen 29(H) 10 - 20 mg/dL [facility] Creatinine 1.04 0.80 - 1.50 mg/dL [facility] Sodium 142 135 - 145 mmol/L [facility] Potassium 3.8 3.5 - 5.0 mmol/L [facility] Comment: Please note: ??Patients with WBC >100,000 may have falsely elevated Potassium levels. ??For accurate Potassium quantification in these patients send serum separator tube (gold top) for subsequent determinations. ??Contact the Clinical Chemistry Laboratory if there are any questions. Chloride 106 98 - 107 mmol/L [facility] Carbon Dioxide 25 22 - 31 mmol/L [facility] Anion Gap 11 5 - 15 mmol/L [facility] Calcium 8.7 8.5 - 10.5 mg/dL [facility] Est Glomerular Filtration Rate 80 >=60 mL/min/1. 73 m?? [facility] Comment: This patient's estimated GFR [...] and symptoms in addition to eGFR. Blood 04/23/2023 12:2 4 AM EDT 04/23/2023 12:36 AM EDT Narrative Resulting Agency Comment Spec In Lab Nilda Jeronimo OPERATIONS INTERN CHEMISTRY ORDERABL ES [facility] [place] [address] * Triglyceride (04/23/2023 12:24 AM EDT) Triglyceride 144 mg/dL [facility] Comment: result rechecked-HT Normal: ?<150 mg/dL Borderline High: 150-199 mg/dL High: ?200-499 mg/dL Very High: ? >cs=764 mg/dL Blood 04/23/2023 12:2 4 AM EDT 04/23/2023 12:36 AM EDT Narrative Resulting Agency Comment Spec In Lab Tana Smith MD CHEMISTRY ORDERABLES Performing Organization Address [facility] de Phone Number [facility] [place] [address] * Lactate, whole blood, send to lab ([facility]) (04/23/2023 12:24 AM EDT) Lactate WB 1.4 0.5 - 2.2 mmol/L [facility] Blood 04/23/2023 12:2 4 AM EDT 04/23/2023 12:35 AM EDT Narrative Resulting Agency Comment Spec In Lab Tana Smith MD CHEMISTRY ORDERABLES Performing Organization Address [facility] de Phone Number [facility] [place] [address] * APTT (04/23/2023 12:24 AM EDT) Partial Thromboplastin Time 36 25 - 37 sec [facility] Comment: The PTT is NOT appropriate for heparin monitoring. Use the Anti-Xa level for heparin monitoring (HEP UFH) or LMWH monitoring (HEP LMW). A PTT less than 37 seconds generally indicates adequate hemostasis. Blood 04/23/2023 12:2 4 AM EDT 04/23/2023 12:36 AM EDT Narrative Resulting Agency Comment Spec In Lab Tana Smith MD HEMATOLOGY ORDERABLE S Performing Organization Address [facility]/ZIP Co de Phone Number [facility] [place] [address] * (ABNORMAL) Prothrombin Time (04/23/2023 12:24 AM EDT) Prothrombin Time 12.7(H) 9.4 - 12.5 sec [facility] International Normalization Ratio 1.1 [facility] Comment: An INR <2.0 indicates adequate procoagulant activity for hemostasis in most patients without underlying bleeding disorders, though the INR may not adequately reflect hemostatic capacity in patients with liver disease and synthetic impairment. The recommended target INR range for therapeutic anticoagulation is 2.0 ? 3.0 for most applications, though lower and higher ranges may be appropriate depending on clinical circumstances. Blood 04/23/2023 12:2 4 AM EDT 04/23/2023 12:36 AM EDT Narrative Resulting Agency Comment Spec In Lab Tana Smith MD HEMATOLOGY ORDERABLE S Performing Organization Address [facility] Co de Phone Number [facility] [place] [address] * Hepatic Function Panel (04/23/2023 12:24 AM EDT) Protein, Total 7.5 6.1 - 8.0 g/dL [facility] Albumin 3.5 3.2 - 5.2 g/dL [facility] Aspartate Aminotransferase 28 0 - 39 unit/L [facility] Alanine Aminotransferase 26 0 - 55 unit/L [facility] Alkaline Phosphatase 64 40 - 130 unit/L [facility] Bilirubin, Total 0.4 0.2 - 1.3 mg/dL [facility] Bilirubin, Direct 0.2 0.0 - 0.3 mg/dL [facility] Blood 04/23/2023 12:2 4 AM EDT 04/23/2023 12:36 AM EDT Narrative Resulting Agency Comment Spec In Lab Tana Smith MD CHEMISTRY ORDERABLES Performing Organization Address [facility] Co de Phone Number [facility] [place] [address] * Type and screen ([facility]MA[facility]) (04/23/2023 12:24 AM EDT) Patient BB History Found [facility] Expires at [id number] on: 04/26/2023 [facility] Ab Screen Interp Negative [facility] Blood 04/23/2023 12:2 4 AM EDT 04/23/2023 12:24 AM EDT Narrative [facility] - 04/23/2023 12:24 AM EDT This Type and Screen result is only valid at the [facility] Resulting Agency Comment Spec In Lab Tana Smith MD BLOOD BANK LAB ORDER KHANG [facility] [place] [address] * POCT Glucose (04/22/2023 11:42 PM EDT) Glucose, POC 151 65 - 199 mg/dL [facility] Comment: Supplemental ranges: <140 mg/dL before meals <180 mg/dL all other times of the day Blood 04/22/2023 11:4 2 PM EDT 04/22/2023 11:42 PM EDT Tana Smith MD POINT OF CARE TEST O RDERABLES [facility] [place] [address] * POCT Glucose (04/22/2023 9:03 PM EDT) Glucose, POC 128 65 - 199 mg/dL [facility] Comment: Supplemental ranges: <140 mg/dL before meals <180 mg/dL all other times of the day Blood 04/22/2023 9:03 PM EDT 04/22/2023 9:03 PM EDT Tana Smith MD POINT OF CARE TEST O RDERABLES [facility] [place] [place] [address] * CT Angiogram Chest Abdomen w Contrast (04/22/2023 6:40 PM EDT) Anatomical Region Laterality Modality Abdomen, Chest Computed Tomogra phy Impressions 04/22/2023 7:55 PM EDT 1. 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 2. ??No active extravasation, however , there is some apparent high density within a trace left pleural fluid collection possibly hemothorax and raises concern for early aneurysm leak/rupture into the pleural space. 3. ??Fusiform dilatation of the descending thoracic aorta measuring up to 4.7- 4.8 cm. In maximal diameter I Hali Llamas discussed the results (Impression #1) with Vignesh Epstein APRN on 04/22/2023 6:45 PM and verified that the results were understood. I have personally reviewed the image(s) and the resident's interpretation and agree with the findings, Royal Michael MD at 04/22/2023 7:55 PM Thank you for letting us participate in the care of this patient. ??If you are a health care provider and have any questions regarding this report, please contact the number below. ??For patients who have questions please contact the health manager managed care that requested your imaging first. ? Electronically signed by: Royal Michael MD, [facility] ??([phone]), at 04/22/2023 7:55 PM Narrative 04/22/2023 7:55 PM EDT EXAMINATION: CT ANGIOGRAM CHEST ABDOMEN W CONTRAST CLINICAL HISTORY: c/f thoracic aortic dissection TECHNIQUE: Helical CT angiogram of the chest and abdomen following the intravenous administration of contrast. 120 cc of Omnipaque 350. Maximum intensity projection (MIP) were reformatted. 3-D images were generated on an independent workstation. COMPARISON: CTA Head Neck 04/21/2023 FINDINGS: VASCULAR FINDINGS Heart: Mild cardiomegaly. No pericardial effusion. Coronary artery and aortic calcifications are present. Thoracic aorta: Mild dilation of the ascending thoracic aorta measuring approximately 4.3 cm in diameter. 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 Focal contrast opacified outpouching in the proximal descending aorta (series 10 image 28). Filling defect extending from the mid- aortic arch down to the visualized dissection flap in the proximal descending thoracic aorta most consistent with thrombosed false lumen. Fusiform dilatation of the descending thoracic aorta measuring up to 4.7-4.8 cm. No active extravasation visualized, however there is slightly increased attenuation within a trace left pleural fluid collection which raises the concern for blood products/hemothorax. Arch branch vessel origins: No stenosis, aneurysm, or dissection. Pulmonary arteries: No central filling defects. Abdominal aorta: No aneurysmal dilatation of the abdominal aorta. Celiac: Arises from the true lumen. No stenosis. SMA: From the true lumen. No stenosis. Right renal artery: Dual renal arteries both arising from the true lumen. Mild atherosclerotic calcification at the origin of the more anterior artery without flow-limiting stenosis. Left renal artery: Dual left renal arteries which arise from the false lumen. A reinterpretation at the level of the more inferiorly positioned renal artery on coronal image 120. BRIAN: Arises from the false lumen Right: Common iliac artery: Extension of the dissection flap into bilateral common iliac arteries. Dilated up to 1.9 cm in diameter. Internal iliac artery: From the true lumen. No stenosis. External iliac artery: Dissection flap terminates in the proximal segment. Common femoral artery: No stenosis. Left: Common iliac artery: Extension of the dissection flap into bilateral common iliac arteries. Dissection flap terminates at the distal common iliac artery. Dilated up to 1.9 cm in diameter. Internal iliac artery: From the true lumen External iliac artery: Thrombosed dissection flap extends into the distal external iliac. Moderate to moderate narrowing of the contrast opacified lumen. Common femoral artery: No stenosis. NON-VASCULAR FINDINGS Lungs and large airways: Mild bibasilar dependent atelectasis. No airspace consolidation or suspicious pulmonary nodule. Central airways are clear. Pleura: Trace left pleural fluid collection with hyperattenuating material concerning for blood products (series 10 image 79). Mediastinum and jenise: No mediastinal hematoma. No enlarged lymph nodes. Liver: Normal size and attenuation without lesions. Bile ducts: Nondilated. Gallbladder: Decompressed. No calcified gallstones. Normal caliber wall. Pancreas: Normal attenuation without ductal dilatation. Spleen: Normal. Adrenals: Mild thickening of bilateral adrenal glands that may be due to mild hyperplasia. Kidneys: Symmetric enhancement. Bilateral simple renal cysts. No hydronephrosis. Urinary bladder: Decompressed with Rebolledo catheter in place. Lymph Nodes: No enlarged lymph nodes. Scattered periaortic lymph nodes. Bowel: Nondilated, no wall thickening. ?? Peritoneum and retroperitoneum: No hemorrhage. No pneumoperitoneum. No fluid collection or mesenteric inflammation. Abdominal wall: Tiny fat-containing right inguinal hernia. Reproductive organs: Unremarkable. Osseous structures: Severe left hip osteoarthropathy with complete loss of the joint space and large subchondral cystic formation. No suspicious lytic or sclerotic osseous lesions. No acute fracture. Chronic L5 pars defects with grade 1 anterolisthesis at L5-S1. Multilevel spondylosis. Procedure Note Royal Michael MD - 04/22/2023 EXAMINATION: CT ANGIOGRAM CHEST ABDOMEN W CONTRAST CLINICAL HISTORY: c/f thoracic aortic dissection TECHNIQUE: Helical CT angiogram of the chest and abdomen following the intravenous administration of contrast. 120 cc of Omnipaque 350. Maximum intensity projection (MIP) were reformatted. 3-D images were generated ángela independent workstation. COMPARISON: CTA Head Neck 04/21/2023 FINDINGS: VASCULAR FINDINGS Heart: Mild cardiomegaly. No pericardial effusion. Coronary artery andaortic calcifications are present. Thoracic aorta: Mild dilation of the ascending thoracic aorta measuring approximately 4.3 cm in diameter. Hay type B thoracic aorticdissection extending from the left subclavian into the bilateral external iliacarteries. Focal contrast opacified outpouching in the proximal descending aorta(series 10 image 28). Filling defect extending from the mid- aortic arch down tothe visualized dissection flap in the proximal descending thoracic aortamost consistent with thrombosed false lumen. Fusiform dilatation of thedescending thoracic aorta measuring up to 4.7-4.8 cm. No active extravasationvisualized, however there is slightly increased attenuation within a trace leftpleural fluid collection which raises the concern for blood products/hemothorax. Arch branch vessel origins: No stenosis, aneurysm, or dissection. Pulmonary arteries: No central filling defects. Abdominal aorta: No aneurysmal dilatation of the abdominal aorta. Celiac: Arises from the true lumen. No stenosis. SMA: From the true lumen. No stenosis. Right renal artery: Dual renal arteries both arising from the true lumen.Mild atherosclerotic calcification at the origin of the more anterior arterywithout flow-limiting stenosis. Left renal artery: Dual left renal arteries which arise from the falselumen. A reinterpretation at the level of the more inferiorly positioned renalartery on coronal image 120. BRIAN: Arises from the false lumen Right: Common iliac artery: Extension of the dissection flap into bilateralcommon iliac arteries. Dilated up to 1.9 cm in diameter. Internal iliac artery: From the true lumen. No stenosis. External iliac artery: Dissection flap terminates in the proximalsegment. Common femoral artery: No stenosis. Left: Common iliac artery: Extension of the dissection flap into bilateralcommon iliac arteries. Dissection flap terminates at the distal common iliacartery. Dilated up to 1.9 cm in diameter. Internal iliac artery: From the true lumen External iliac artery: Thrombosed dissection flap extends into thedistal external iliac. Moderate to moderate narrowing of the contrast opacifiedlumen. Common femoral artery: No stenosis. NON-VASCULAR FINDINGS Lungs and large airways: Mild bibasilar dependent atelectasis. Noairspace consolidation or suspicious pulmonary nodule. Central airways are clear. Pleura: Trace left pleural fluid collection with hyperattenuatingmaterial concerning for blood products (series 10 image 79). Mediastinum and jenise: No mediastinal hematoma. No enlarged lymph nodes. Liver: Normal size and attenuation without lesions. Bile ducts: Nondilated. Gallbladder: Decompressed. No calcified gallstones. Normal caliber wall. Pancreas: Normal attenuation without ductal dilatation. Spleen: Normal. Adrenals: Mild thickening of bilateral adrenal glands that may be due tomild hyperplasia. Kidneys: Symmetric enhancement. Bilateral simple renal cysts. Nohydronephrosis. Urinary bladder: Decompressed with Rebolledo catheter in place. Lymph Nodes: No enlarged lymph nodes. Scattered periaortic lymph nodes. Bowel: Nondilated, no wall thickening. Peritoneum and retroperitoneum: No hemorrhage. No pneumoperitoneum. Nofluid collection or mesenteric inflammation. Abdominal wall: Tiny fat-containing right inguinal hernia. Reproductive organs: Unremarkable. Osseous structures: Severe left hip osteoarthropathy with complete loss ofthe joint space and large subchondral cystic formation. No suspicious lyticor sclerotic osseous lesions. No acute fracture. Chronic L5 pars defects withgrade 1 anterolisthesis at L5-S1. Multilevel spondylosis. IMPRESSION 1. Hay type B dissection extending from the left subclavian intothe bilateral external iliac arteries. 2. No active extravasation, however , there is some apparent highdensity within a trace left pleural fluid collection possibly hemothorax andraises concern for early aneurysm leak/rupture into the pleural space. 3. Fusiform dilatation of the descending thoracic aorta measuring up to4.7-4.8 cm. In maximal diameter I Hali Llamas discussed the results (Impression #1) with Vignesh Epstein APRN on 04/22/2023 6:45 PM and verified that the results were understood. I have personally reviewed the image(s) and the resident's interpretationand agree with the findings, Royal Michael MD at 04/22/2023 7:55 PM Thank you for letting us participate in the care of this patient. If youare a health care provider and have any questions regarding this report,please contact the number below. For patients who have questions please contactthe health manager managed care that requested your imaging first. Electronically signed by: Royal Michael MD, [facility]([phone]), at 04/22/2023 7:55 PM Vignesh Epstein APRN IMG CT ORDERABLES * EKG 12 Lead (04/22/2023 5:42 PM EDT) Ventricular rate 80 BPM MUSE SYSTEM Atrial Rate 80 BPM MUSE SYSTEM P-R Interval 184 ms MUSE SYSTEM QRS Duration 166 ms MUSE SYSTEM Q-T Interval 430 ms MUSE SYSTEM QTC Calculated (Bezet) 495 ms MUSE SYSTEM Calculated R [place] -137 degrees MUSE SYSTEM Calculated T [place] -172 degrees MUSE SYSTEM INTERPRETATION Suspect arm lead reversal, interpretation assumes no reversal Normal sinus rhythm Right bundle branch block Lateral infarct , age undetermined T wave abnormality, consider inferior ischemia Abnormal ECG No previous ECGs available Confirmed by MD Morgan David ([id number]) on 04/23/2023 11:19:31 AM MUSE SYSTEM 04/22/2023 5:42 PM EDT 04/23/2023 11:19 AM EDT Vignesh Epstein APRN ECG ORDERABLES MUSE SYSTEM * POCT Glucose (04/22/2023 5:06 PM EDT) Glucose, POC 116 65 - 199 mg/dL [facility] Comment: Supplemental ranges: <140 mg/dL before meals <180 mg/dL all other times of the day Blood 04/22/2023 5:06 PM EDT 04/22/2023 5:06 PM EDT Tana Smith MD POINT OF CARE TEST O RDERABLES Performing Organization Address City/[facility] Co de Phone Number [facility] [place] [address] * POCT Glucose (04/22/2023 2:52 PM EDT) Glucose, POC 132 65 - 199 mg/dL [facility] Comment: Supplemental ranges: <140 mg/dL before meals <180 mg/dL all other times of the day Blood 04/22/2023 2:52 PM EDT 04/22/2023 2:52 PM EDT Tana Smith MD POINT OF CARE TEST O RDERATAYLOR Performing Organization Address City/[facility] Co de Phone Number [facility] [place] [address] * POCT Glucose (04/22/2023 8:59 AM EDT) Glucose, POC 161 65 - 199 mg/dL [facility] Comment: Supplemental ranges: <140 mg/dL before meals <180 mg/dL all other times of the day Blood 04/22/2023 8:59 AM EDT 04/22/2023 8:59 AM EDT Tana Smith MD POINT OF CARE TEST O RDERABLES Performing Organization Address [facility] Co de Phone Number [facility] [place] [address] * POCT Glucose (04/22/2023 3:53 AM EDT) [facility] Glucose, POC 148 65 - 199 mg/dL [facility] Comment: Supplemental ranges: <140 mg/dL before meals <180 mg/dL all other times of the day Blood 04/22/2023 3:53 AM EDT 04/22/2023 3:53 AM EDT Tana Smith MD POINT OF CARE TEST O RDERATAYLOR Performing Organization Address [facility] Co de Phone Number [facility] [place] [address] * Potassium (04/22/2023 3:00 AM EDT) [facility] Potassium 4.4 3.5 - 5.0 mmol/L [facility] Comment: Please note: ??Patients with WBC >100,000 may have falsely elevated Potassium levels. ??For accurate Potassium quantification in these patients send serum separator tube (gold top) for subsequent determinations. ??Contact the Clinical Chemistry Laboratory if there are any questions. Blood 04/22/2023 3:00 AM EDT 04/22/2023 3:15 AM EDT Narrative Resulting Agency Comment Spec In Lab Tana Smith MD CHEMISTRY ORDERABLES Performing Organization Address [facility] Co de Phone Number [facility] [place] [address] * (ABNORMAL) Differential, Automated (04/22/2023 1:39 AM EDT) [facility] Neutrophil % 76.4 % [facility] Neutrophil Absolute 6.19(H) 1.70 - 6.10 x10(3)/mc L [facility] Lymph % 9.8 % [facility] Lymphocytes Abs 0.8(L) 0.9 - 3.2 x10(3)/mc L [facility] Monocyte % 11.2 % [facility] Monocyte Abs 0.9 0.3 - 0.9 x10(3)/mc L [facility] Eos % 1.6 % [facility] Eosinophils Abs 0.1 0.0 - 0.4 x10(3)/ L [facility] Basophil % 0.5 % [facility] Baso Absolute 0.0 0.0 - 0.1 x10(3)/ L [facility] Immature Gran % 0.50 % [facility] Comment: Immature granulocytes(IG's)percentage and absolute count will include metamyelocytes, myelocytes, and promyelocytes. Blood smears from CBCs yielding IG's will be scanned manually for concordance. If this scan disagrees with the automated IG or if promyelocytes are noted, a manual differential will be performed. Immature Gran Absolute 0.04 0.00 - 0.04 x10(3)/ L [facility] Blood 04/22/2023 1:39 AM EDT 04/22/2023 1:47 AM EDT Narrative Resulting Agency Comment Spec In Lab Nilda Jeronimo OPERATIONS INTERN HEMATOLOGY ORDERAB LES [facility] [place] [address] * (ABNORMAL) Hemogram (04/22/2023 1:39 AM EDT) White Blood Cell 8.1 4.0 - 9.5 x10(3)/mc L [facility] Red Blood Cell 3.94(L) 4.58 - 5.54 x10(6)/mc L [facility] Hemoglobin 12.5(L) 13.7 - 16.5 g/dL [facility] Hematocrit 37.9(L) 40.5 - 48.5 % [facility] Mean Cell Volume 96.2(H) 82.9 - 93.1 fL [facility] Mean Cell Hemoglobin 31.7 27.5 - 32.1 pg [facility] Mean Cell Hemoglobin Concentration 33.0 32.0 - 35.7 g/dL [facility] Platelet 170 145 - 357 x10(3)/mc L [facility] RDW Standard Deviation 49.8(H) 36.0 - 45.0 fL [facility] RDW coefficient of variation 14.0(H) 11.4 - 13.8 % [facility] Mean Platelet Volume 11.2 7.6 - 12.9 fL [facility] NRBC% auto 0.0 % [facility] NRBC Absolute 0.000 0.000 - 0.000 x10(3)/mc L [facility] Blood 04/22/2023 1:39 AM EDT 04/22/2023 1:47 AM EDT Narrative Resulting Agency Comment Spec In Lab Nilda Kingsley Jeronimo OPERATIONS INTERN HEMATOLOGY ORDERAB LES Performing Organization Address [facility] Co de Phone Number [facility] [place] [address] * (ABNORMAL) Phosphorus (04/22/2023 1:39 AM EDT) Phosphorus 2.0(L) 2.5 - 4.5 mg/dL [facility] Blood 04/22/2023 1:39 AM EDT 04/22/2023 1:47 AM EDT Narrative Resulting Agency Comment Spec In Lab Nilda Kingsley Jeronimo OPERATIONS INTERN CHEMISTRY ORDERABL ES Performing Organization Address [facility] de Phone Number [facility] [place] [address] * Magnesium (04/22/2023 1:39 AM EDT) Magnesium 0.92 0.69 - 1.07 mmol/L [facility] Blood 04/22/2023 1:39 AM EDT 04/22/2023 1:47 AM EDT Narrative Resulting Agency Comment Spec In Lab Nilad Kingsley Phani OPERATIONS INTERN CHEMISTRY ORDERABL ES Performing Organization Address [facility] de Phone Number [facility] [place] [address] * (ABNORMAL) Basic Metabolic Panel (non-fasting) (04/22/2023 1:39 AM EDT) Glucose 142 65 - 199 mg/dL [facility] Comment:Diabetes: >=200 mg/d L plus symptoms Blood Urea Nitrogen 27(H) 10 - 20 mg/dL [facility] Creatinine 1.06 0.80 - 1.50 mg/dL [facility] Sodium 140 135 - 145 mmol/L [facility] Potassium Not Perf 3.5 - 5.0 [facility] Comment: Called by: , Read back by: Yemi Mckenna, Date/Time:04/22/23 02:47. Please note: ??Patients with WBC >100,000 may have falsely elevated Potassium levels. ??For accurate Potassium quantification in these patients send serum separator tube (gold top) for subsequent determinations. ??Contact the Clinical Chemistry Laboratory if there are any questions. Chloride 107 98 - 107 mmol/L [facility] Carbon Dioxide 25 22 - 31 mmol/L [facility] Anion Gap 8 5 - 15 mmol/L [facility] Calcium 8.7 8.5 - 10.5 mg/dL [facility] Est Glomerular Filtration Rate 78 >=60 mL/min/1. 73 m?? [facility] Comment: This patient's estimated GFR [...] and symptoms in addition to eGFR. Blood 04/22/2023 1:39 AM EDT 04/22/2023 1:47 AM EDT Narrative Resulting Agency Comment Spec In Lab Nilda Jeronimo OPERATIONS INTERN CHEMISTRY ORDERABL ES [facility] [place] [address] * POCT Glucose (04/22/2023 12:17 AM EDT) Glucose, POC 134 65 - 199 mg/dL [facility] Comment: Supplemental ranges: <140 mg/dL before meals <180 mg/dL all other times of the day Blood 04/22/2023 12:1 7 AM EDT 04/22/2023 12:17 AM EDT Tana Smith MD POINT OF CARE TEST O SARAH Performing Organization Address [facility] Co de Phone Number [facility] [place] [address] * POCT Glucose (04/21/2023 8:48 PM EDT) Glucose, POC 96 65 - 199 mg/dL [facility] Comment: Supplemental ranges: <140 mg/dL before meals <180 mg/dL all other times of the day Blood 04/21/2023 8:48 PM EDT 04/21/2023 8:48 PM EDT Tana Smith MD POINT OF CARE TEST Maday SMITH Performing Organization Address [facility] Co de Phone Number [facility] [place] [address] * (ABNORMAL) CT Angiogram Carotids & [place] (04/21/2023 5:49 PM EDT) Anatomical Region Laterality Modality Neck, Head Computed Tomogra phy Impressions 04/22/2023 5:17 PM EDT 1. ??Unexpected finding. Partially visualized descending thoracic aorta demonstrates crescentic hypoattenuation with luminal narrowing concerning for dissection versus significant mural thrombus. CTA chest/abdomen recommended for further evaluation. ? Discussed with Filiberto Epstein NP by Dr. Michelle Munoz over the telephone at 04/22/2023 5:12 PM and verified that the results were understood. 2. ??Recommend retracting endotracheal tube by inch of the terminates near the origin of the right mainstem bronchus. 3. ??Possible mild irregularity of the left P2 VALUE STREAM COACH segment. Mild irregularity of the intradural vertebral arteries. No central branch occlusion. 4. ??Similar volume of intracranial hemorrhage. Unchanged caliber of the ventricles. Thank you for letting us participate in the care of this patient. ??If you are a health care provider and have any questions regarding this report, please contact the number below. ??For patients who have questions please contact the health manager managed care that requested your imaging first. ? Narrative 04/22/2023 5:17 PM EDT EXAMINATION: CT ANGIOGRAM CAROTIDS AND [place] CLINICAL HISTORY: VALUE STREAM COACH surveillance TECHNIQUE: CT angiogram of the carotids and [place] of [place] was performed after the intravenous administration of 65 cc Omnipaque 350, MIP and 3D reconstructions were reviewed after being processed on an independent workstation COMPARISON: None FINDINGS: ??Exam is somewhat limited by patient motion. Aorta: Luminal narrowing of the descending thoracic aorta concerning for dissection. There is conventional anatomy of the aortic arch which demonstrates minimal calcified atheromatous disease. No significant stenosis of the origins of the great vessels. Carotid arteries: The bilateral common carotid arteries are normal in course and caliber. Minimal calcified plaque at the right carotid the bifurcation without significant stenosis. No stenosis of the left carotid bifurcation. The cervical internal carotid arteries are normal in course and caliber. Mild calcified plaque of the cavernous ICAs without significant stenosis. Vertebral arteries: Left vertebral artery slightly dominant. Normal in course and caliber within the limits of the exam. Calcified plaque at the C1 arch and intradural segments contributes to mild narrowing. COW: Basilar artery is normal in course and caliber. The superior cerebellar and posterior cerebral arteries and major branches are normal in course and caliber. There may be mild irregularity of the left P2 VALUE STREAM COACH segment. Small right posterior communicating artery is visualized. The middle and anterior cerebral arteries and major branches demonstrate normal caliber. The anterior communicating artery is normal. No evidence for vascular malformation. Other: Similar volume of posterior fossa and fourth ventricular blood products. Intraventricular blood products cast the third ventricle and are present in the lateral ventricles, similar to the prior study. Right frontal approach external ventricular drain is unchanged. Ventricular caliber is similar. Endotracheal tube terminates at the origin of the right mainstem bronchus. Bilateral posterior dependent opacification. Resulting Agency Comment Unexpected Finding Vignesh Epstein OPERATIONS INTERN IMG CT ORDERABLES * Potassium (04/21/2023 4:11 PM EDT) [facility] Potassium 3.8 3.5 - 5.0 mmol/L [facility] Comment: Please note: ??Patients with WBC >100,000 may have falsely elevated Potassium levels. ??For accurate Potassium quantification in these patients send serum separator tube (gold top) for subsequent determinations. ??Contact the Clinical Chemistry Laboratory if there are any questions. Blood 04/21/2023 4:11 PM EDT 04/21/2023 4:11 PM EDT Narrative Resulting Agency Comment Spec In Lab Tana Smith MD CHEMISTRY ORDERABLES [facility] [place] [address] * POCT Glucose (04/21/2023 3:36 PM EDT) Glucose, POC 155 65 - 199 mg/dL [facility] Comment: Supplemental ranges: <140 mg/dL before meals <180 mg/dL all other times of the day Blood 04/21/2023 3:36 PM EDT 04/21/2023 3:36 PM EDT Tana Smith MD POINT OF CARE TEST O RDERABLES [facility] [place] [address] * POCT Glucose (04/21/2023 12:05 PM EDT) Glucose, POC 134 65 - 199 mg/dL [facility] Comment: Supplemental ranges: <140 mg/dL before meals <180 mg/dL all other times of the day Blood 04/21/2023 12:0 5 PM EDT 04/21/2023 12:05 PM EDT Tana Smith MD POINT OF CARE TEST O RDERABLES [facility] [place] [address] * (ABNORMAL) BLOOD GAS 2 VENOUS (04/21/2023 10:42 AM EDT) pH, Venous 7.33 7.32 - 7.42 [facility] PCO2, Venous 53(H) 41 - 51 mmHg [facility] PO2, Venous 36 25 - 40 mmHg [facility] Bicarbonate, Venous 27.4 mmol/L [facility] Base Excess, Venous 1.5 mmol/L [facility] Hgb Blood Gas 14.1 13.7 - 16.5 g/dL [facility] Oxyhemoglobin, Venous 65.0 % [facility] Carboxyhemoglob in, Venous 0.5 % [facility] Comment: Nonsmokers: 0.5-1.5% COHB Smokers: Variable, but usually less than 10% Toxic: 20-30% COHB Lethal: Greater than 60% COHB Methemoglobin, Venous 0.2 <=1.5 % [facility] Na Whole Blood 143 135 - 145 mmol/L [facility] K Whole Blood 3.9 3.5 - 5.0 mmol/L [facility] Comment: Please note: Patients with WBC >100,000 may have falsely elevated Potassium levels. Contact the Clinical Chemistry Laboratory if there are any questions. ICa Whole Blood 1.17 1.15 - 1.33 mmol/L [facility] Comment: Note: ??Total bilirubin higher than 20 mg/dL may lead to falsely low ionized calcium. CL Whole Blood 103 98 - 107 mmol/L [facility] Gluc Whole Bld 120 65 - 199 mg/dL [facility] Comment:Diabetes: >=200 mg/d L plus symptoms Lactate WB 1.2 0.5 - 2.2 mmol/L [facility] Blood Gas Source Venous [facility] Blood 04/21/2023 10:4 2 AM EDT 04/21/2023 10:42 AM EDT Tana Smith MD POINT OF CARE TEST O RDERABLES Performing Organization Address City/[facility]/ZIP Co de Phone Number [facility] [place] [address] * Potassium (04/21/2023 10:41 AM EDT) Potassium 3.7 3.5 - 5.0 mmol/L [facility] Comment: Please note: ??Patients with WBC >100,000 may have falsely elevated Potassium levels. ??For accurate Potassium quantification in these patients send serum separator tube (gold top) for subsequent determinations. ??Contact the Clinical Chemistry Laboratory if there are any questions. Blood 04/21/2023 10:4 1 AM EDT 04/21/2023 10:59 AM EDT Narrative Resulting Agency Comment Spec In Lab Tana Smith MD CHEMISTRY ORDERABLES Performing Organization Address [facility] Co de Phone Number [facility] [place] [address] * POCT Glucose (04/21/2023 7:49 AM EDT) Glucose, POC 112 65 - 199 mg/dL [facility] Comment: Supplemental ranges: <140 mg/dL before meals <180 mg/dL all other times of the day Blood 04/21/2023 7:49 AM EDT 04/21/2023 7:49 AM EDT Tana Smith MD POINT OF CARE TEST O RDERABLES Performing Organization Address [facility] Co de Phone Number [facility] [place] [address] * XR Chest One View (04/21/2023 7:08 AM EDT) Anatomical Region Laterality Modality Chest N/A Digital Radiogra phy Impressions 04/21/2023 8:09 AM EDT Retrocardiac left lower lobe collapse versus consolidation. Right upper extremity PICC line catheter tip positioned at the right atrium. Thank you for letting us participate in the care of this patient. ??If you are a health care provider and have any questions regarding this report, please contact the number below. ??For patients who have questions please contact the health manager managed care that requested your imaging first. ? Electronically signed by: Amanda Smith MD, [facility] ([phone]), at 04/21/2023 8:09 AM Narrative 04/21/2023 8:09 AM EDT EXAMINATION: XR CHEST ONE VIEW CLINICAL HISTORY: post bronch, and to follow up fluid status TECHNIQUE: 1 view of the chest COMPARISON: April 20, 2023 FINDINGS: Right upper extremity PICC line catheter tip positioned at the right atrium. Cardiomegaly. Enteric tube position below the left hemidiaphragm. Tip of the endotracheal tube positioned 3 cm proximal to nichole. Low lung volumes. Cardiomegaly. Left lower lobe collapse versus consolidation. Procedure Note Amanda Smith MD - 04/21/2023 EXAMINATION: XR CHEST ONE VIEW CLINICAL HISTORY: post bronch, and to follow up fluid status TECHNIQUE: 1 view of the chest COMPARISON: April 20, 2023 FINDINGS: Right upper extremity PICC line catheter tip positioned at the rightatrium. Cardiomegaly. Enteric tube position below the left hemidiaphragm. Tip of the endotracheal tube positioned 3 cm proximal to nichole. Low lung volumes. Cardiomegaly. Left lower lobe collapse versusconsolidation. IMPRESSION Retrocardiac left lower lobe collapse versus consolidation. Right upper extremity PICC line catheter tip positioned at the rightatrium. Thank you for letting us participate in the care of this patient. If youare a health care provider and have any questions regarding this report,please contact the number below. For patients who have questions please contactthe health manager managed care that requested your imaging first. Electronically signed by: Amanda Smith MD, [facility]([phone]), at 04/21/2023 8:09 AM Tana Smith MD IMG DX ORDERABLES * Potassium (04/21/2023 5:20 AM EDT) Potassium 3.7 3.5 - 5.0 mmol/L [facility] Comment: Please note: ??Patients with WBC >100,000 may have falsely elevated Potassium levels. ??For accurate Potassium quantification in these patients send serum separator tube (gold top) for subsequent determinations. ??Contact the Clinical Chemistry Laboratory if there are any questions. Blood 04/21/2023 5:20 AM EDT 04/21/2023 5:27 AM EDT Narrative Resulting Agency Comment Spec In Lab Tana Smith MD CHEMISTRY ORDERABLES [facility] [place] [address] * (ABNORMAL) BLOOD GAS 2 VENOUS (04/21/2023 5:15 AM EDT) pH, Venous 7.35 7.32 - 7.42 [facility] PCO2, Venous 50 41 - 51 mmHg [facility] PO2, Venous 41(H) 25 - 40 mmHg [facility] Bicarbonate, Venous 26.8 mmol/L [facility] Base Excess, Venous 1.2 mmol/L [facility] LABORATORY Hgb Blood Gas 14.1 13.7 - 16.5 g/dL [facility] Oxyhemoglobin, Venous 73.2 % [facility] Carboxyhemoglob in, Venous 0.6 % [facility] Comment: Nonsmokers: 0.5-1.5% COHB Smokers: Variable, but usually less than 10% Toxic: 20-30% COHB Lethal: Greater than 60% COHB Methemoglobin, Venous 0.3 <=1.5 % [facility] Na Whole Blood 142 135 - 145 mmol/L [facility] K Whole Blood 3.7 3.5 - 5.0 mmol/L [facility] Comment: Please note: Patients with WBC >100,000 may have falsely elevated Potassium levels. Contact the Clinical Chemistry Laboratory if there are any questions. ICa Whole Blood 1.16 1.15 - 1.33 mmol/L [facility] Comment: Note: ??Total bilirubin higher than 20 mg/dL may lead to falsely low ionized calcium. CL Whole Blood 104 98 - 107 mmol/L [facility] Gluc Whole Bld 100 65 - 199 mg/dL [facility] Comment:Diabetes: >=200 mg/d L plus symptoms Lactate WB 1.5 0.5 - 2.2 mmol/L [facility] Fraction of Inspired Oxygen, Venous 30 % [facility] Blood Gas Source Venous [facility] Temperature, Venous 37.0 Celsius [facility] Blood 04/21/2023 5:15 AM EDT 04/21/2023 5:15 AM EDT Tana Smith MD POINT OF CARE TEST O RDLARY [facility] [place] [address] * POCT Glucose (04/21/2023 4:13 AM EDT) Glucose, POC 87 65 - 199 mg/dL [facility] Comment: Supplemental ranges: <140 mg/dL before meals <180 mg/dL all other times of the day Blood 04/21/2023 4:13 AM EDT 04/21/2023 4:13 AM EDT Tana Smith MD POINT OF CARE TEST O RDERATAYLOR [facility] [place] [address] * (ABNORMAL) Differential, Automated (04/21/2023 12:36 AM EDT) Neutrophil % 76.0 % [facility] Neutrophil Absolute 7.81(H) 1.70 - 6.10 x10(3)/mc L [facility] Lymph % 11.0 % [facility] Lymphocytes Abs 1.1 0.9 - 3.2 x10(3)/mc L [facility] Monocyte % 10.9 % [facility] Monocyte Abs 1.1(H) 0.3 - 0.9 x10(3)/mc L [facility] Eos % 0.6 % [facility] Eosinophils Abs 0.1 0.0 - 0.4 x10(3)/mc L [facility] Basophil % 0.5 % [facility] Baso Absolute 0.0 0.0 - 0.1 x10(3)/ L [facility] Immature Gran % 1.00 % [facility] Comment: Immature granulocytes(IG's)percentage and absolute count will include metamyelocytes, myelocytes, and promyelocytes. Blood smears from CBCs yielding IG's will be scanned manually for concordance. If this scan disagrees with the automated IG or if promyelocytes are noted, a manual differential will be performed. Immature Gran Absolute 0.10(H) 0.00 - 0.04 x10(3)/ L [facility] Blood 04/21/2023 12:3 6 AM EDT 04/21/2023 12:44 AM EDT Narrative Resulting Agency Comment Spec In Lab Nilda Jeronimo OPERATIONS INTERN HEMATOLOGY ORDERAB LES Performing Organization Address City/State/[facility] Co de Phone Number [facility] [place] [address] * (ABNORMAL) Hemogram (04/21/2023 12:36 AM EDT) White Blood Cell 10.3(H) 4.0 - 9.5 x10(3)/mc L [facility] Red Blood Cell 4.29(L) 4.58 - 5.54 x10(6)/mc L [facility] Hemoglobin 13.5(L) 13.7 - 16.5 g/dL [facility] Hematocrit 40.5 40.5 - 48.5 % [facility] Mean Cell Volume 94.4(H) 82.9 - 93.1 fL [facility] Mean Cell Hemoglobin 31.5 27.5 - 32.1 pg [facility] Mean Cell Hemoglobin Concentration 33.3 32.0 - 35.7 g/dL [facility] Platelet 174 145 - 357 x10(3)/mc L [facility] RDW Standard Deviation 50.2(H) 36.0 - 45.0 fL [facility] RDW coefficient of variation 14.3(H) 11.4 - 13.8 % [facility] Mean Platelet Volume 11.0 7.6 - 12.9 fL [facility] NRBC% auto 0.0 % [facility] NRBC Absolute 0.000 0.000 - 0.000 x10(3)/mc L [facility] Blood 04/21/2023 12:3 6 AM EDT 04/21/2023 12:44 AM EDT Narrative Resulting Agency Comment Spec In Lab Nilda Jeronimo OPERATIONS INTERN HEMATOLOGY ORDERAB LES Performing Organization Address City/[facility] Co de Phone Number [facility] [place] [address] * Phosphorus (04/21/2023 12:36 AM EDT) Phosphorus 3.5 2.5 - 4.5 mg/dL [facility] Blood 04/21/2023 12:3 6 AM EDT 04/21/2023 12:44 AM EDT Narrative Resulting Agency Comment Spec In Lab Nilda Jeronimo OPERATIONS INTERN CHEMISTRY ORDERABL ES Performing Organization Address City/[facility]/ZIP Co de Phone Number [facility] [place] [address] * (ABNORMAL) Magnesium (04/21/2023 12:36 AM EDT) Magnesium 1.10(H) 0.69 - 1.07 mmol/L [facility] Blood 04/21/2023 12:3 6 AM EDT 04/21/2023 12:44 AM EDT Narrative Resulting Agency Comment Spec In Lab Nilda Jaimearaceli NIXN CHEMISTRY ORDERABL ES [facility] [place] [address] * (ABNORMAL) Basic Metabolic Panel (non-fasting) (04/21/2023 12:36 AM EDT) Glucose 104 65 - 199 mg/dL [facility] Comment:Diabetes: >=200 mg/d L plus symptoms Blood Urea Nitrogen 26(H) 10 - 20 mg/dL [facility] Creatinine 1.28 0.80 - 1.50 mg/dL [facility] Sodium 141 135 - 145 mmol/L [facility] Potassium 3.6 3.5 - 5.0 mmol/L [facility] Comment: Please note: ??Patients with WBC >100,000 may have falsely elevated Potassium levels. ??For accurate Potassium quantification in these patients send serum separator tube (gold top) for subsequent determinations. ??Contact the Clinical Chemistry Laboratory if there are any questions. Chloride 104 98 - 107 mmol/L [facility] Carbon Dioxide 26 22 - 31 mmol/L [facility] Anion Gap 11 5 - 15 mmol/L [facility] Calcium 8.6 8.5 - 10.5 mg/dL [facility] Est Glomerular Filtration Rate 62 >=60 mL/min/1. 73 m?? [facility] Comment: This patient's estimated GFR [...] and symptoms in addition to eGFR. Blood 04/21/2023 12:3 6 AM EDT 04/21/2023 12:44 AM EDT Narrative Resulting Agency Comment Spec In Lab Nilda Kingsley Jeronimo OPERATIONS INTERN CHEMISTRY ORDERABL ES Performing Organization Address [facility] Co de Phone Number [facility] [place] [address] * POCT Glucose (04/21/2023 12:35 AM EDT) Glucose, POC 92 65 - 199 mg/dL [facility] Comment: Supplemental ranges: <140 mg/dL before meals <180 mg/dL all other times of the day Blood 04/21/2023 12:3 5 AM EDT 04/21/2023 12:35 AM EDT Tana Smith MD POINT OF CARE TEST O RDERABLES Performing Organization Address [facility] Co de Phone Number [facility] [place] [address] * MRI Brain wwo Contrast (Generic) (04/20/2023 9:39 PM EDT) Anatomical Region Laterality Modality Head Magnetic Resonan ce Impressions 04/20/2023 11:08 PM EDT 1. ??Recent infarct involving the posterior medial LEFT parietal lobe. 2. ??Unchanged size of RIGHT cerebellar intraparenchymal hemorrhage with unchanged volume of intraventricular blood products. 3. ??Vasogenic edema tracks along the superior right cerebellar peduncle into the right midbrain. 4. ??Unchanged ventricular caliber with some hyperintense signal along the ventricular surface suggesting some transependymal CSF flow. 5. ??No abnormal brain parenchymal or meningeal enhancement to suggest underlying malignancy. 6. ??Small foci of susceptibility related signal loss separate from the areas of hemorrhage, which could represent sequela of small vessel disease versus cerebral amyloid angiopathy. Thank you for letting us participate in the care of this patient. ??If you are a health care provider and have any questions regarding this report, please contact the number below. ??For patients who have questions please contact the health manager managed care that requested your imaging first. ? Electronically signed by: Brien Durán MD, [facility] ([phone]), at 04/20/2023 11:08 PM Narrative 04/20/2023 11:08 PM EDT EXAMINATION: MRI BRAIN WWO CONTRAST (GENERIC) CLINICAL HISTORY: Stroke, follow up TECHNIQUE: MRI of the brain was performed before and after the intravenous administration of 22cc Dotarem. COMPARISON: Head CT 04/20/2023 FINDINGS: Right anterior approach shunt catheter with tip above the foramen of Augusto. Unchanged ventricular caliber. Similar quantity of heterogeneous signal, mildly T1 hyperintense, blood products within the bilateral lateral ventricles, third ventricle, cerebral aqueduct and fourth ventricle. Unchanged expansion of the fourth ventricle. Unchanged size of the deep right cerebellar intraparenchymal hemorrhage centered within the dentate nucleus measuring approximately 2.2 cm in size. There is T2 hyperintense signal within the surrounding white matter consistent with vasogenic edema. Edema tracks into the posterior right midbrain along the superior cerebellar peduncle (axial series 6 image 20). There is mild effacement of the right lateral margin of the fourth ventricle. Abnormal restricted diffusion within the posterior medial left parietal lobe consistent with cortical infarct, concordant with recent head CT findings. Restricted diffusion within the dependent lateral ventricles consistent with layering blood products. Multiple T2 hyperintense lesions within the subcortical white matter and periventricular white matter, a nonspecific finding most commonly seen in the context of chronic small vessel ischemic disease. Trace subarachnoid blood products along the posterior right sylvian fissure. The orbits are unremarkable. Mild mucosal thickening of the paranasal sinuses. Fluid signal within the inferior mastoid air cells consistent with effusions. Partially visualized endotracheal tube and enteric tube. Normal intracranial intravascular flow voids. There is susceptibility related signal loss within the areas of intraventricular, intraparenchymal and subarachnoid hemorrhage. Additional small foci of susceptibility related signal loss within the left basal ganglia, left temporal lobe, posterior right parietal lobe and within the bilateral cerebellum. No abnormal brain parenchymal or meningeal enhancement. Specifically no enhancing lesion within the right cerebellar image parenchymal hemorrhage. Normal marrow space signal. Procedure Note Brien Durán MD - 04/20/2023 EXAMINATION: MRI BRAIN WWO CONTRAST (GENERIC) CLINICAL HISTORY: Stroke, follow up TECHNIQUE: MRI of the brain was performed before and after the intravenousadministration of 22cc Dotarem. COMPARISON: Head CT 04/20/2023 FINDINGS: Right anterior approach shunt catheter with tip above the foramen ofMunro. Unchanged ventricular caliber. Similar quantity of heterogeneous signal, mildly T1 hyperintense, bloodproducts within the bilateral lateral ventricles, third ventricle, cerebralaqueduct and fourth ventricle. Unchanged expansion of the fourth ventricle. Unchanged size of the deep right cerebellar intraparenchymal hemorrhagecentered within the dentate nucleus measuring approximately 2.2 cm in size. Thereis T2 hyperintense signal within the surrounding white matter consistent with vasogenic edema. Edema tracks into the posterior right midbrain alongthe superior cerebellar peduncle (axial series 6 image 20). There is mildeffacement of the right lateral margin of the fourth ventricle. Abnormal restricted diffusion within the posterior medial left parietallobe consistent with cortical infarct, concordant with recent head CT findings. Restricted diffusion within the dependent lateral ventricles consistentwith layering blood products. Multiple T2 hyperintense lesions within thesubcortical white matter and periventricular white matter, a nonspecific findingmost commonly seen in the context of chronic small vessel ischemic disease.Trace subarachnoid blood products along the posterior right sylvian fissure. The orbits are unremarkable. Mild mucosal thickening of the paranasalsinuses. Fluid signal within the inferior mastoid air cells consistent witheffusions. Partially visualized endotracheal tube and enteric tube. Normalintracranial intravascular flow voids. There is susceptibility related signal loss within the areas of intraventricular, intraparenchymal and subarachnoid hemorrhage. Additional small foci of susceptibility related signal loss within theleft basal ganglia, left temporal lobe, posterior right parietal lobe andwithin the bilateral cerebellum. No abnormal brain parenchymal or meningeal enhancement. Specifically no enhancing lesion within the right cerebellar image parenchymalhemorrhage. Normal marrow space signal. IMPRESSION 1. Recent infarct involving the posterior medial LEFT parietal lobe. 2. Unchanged size of RIGHT cerebellar intraparenchymal hemorrhage with unchanged volume of intraventricular blood products. 3. Vasogenic edema tracks along the superior right cerebellar peduncleinto the right midbrain. 4. Unchanged ventricular caliber with some hyperintense signal alongthe ventricular surface suggesting some transependymal CSF flow. 5. No abnormal brain parenchymal or meningeal enhancement to suggestunderlying malignancy. 6. Small foci of susceptibility related signal loss separate from theareas of hemorrhage, which could represent sequela of small vessel disease versus cerebral amyloid angiopathy. Thank you for letting us participate in the care of this patient. If youare a health care provider and have any questions regarding this report,please contact the number below. For patients who have questions please contactthe health manager managed care that requested your imaging first. Nilda Jeronimo OPERATIONS INTERN IMG MRI ORDERABLES * POCT Glucose (04/20/2023 8:05 PM EDT) Glucose, POC 105 65 - 199 mg/dL [facility] Comment: Supplemental ranges: <140 mg/dL before meals <180 mg/dL all other times of the day Blood 04/20/2023 8:05 PM EDT 04/20/2023 8:05 PM EDT Tana Smith MD POINT OF CARE TEST O RDERATAYLOR Performing Organization Address City/[facility]/ZIP Co de Phone Number [facility] [place] [address] * POCT Glucose (04/20/2023 3:51 PM EDT) Glucose, POC 111 65 - 199 mg/dL [facility] Comment: Supplemental ranges: <140 mg/dL before meals <180 mg/dL all other times of the day Blood 04/20/2023 3:51 PM EDT 04/20/2023 3:51 PM EDT Tana Smith MD POINT OF CARE TEST O RDERABLES [facility] [place] [place] [address] * Lower Respiratory Culture Bronchial Alveolar Lavage (04/20/2023 3:50 PM EDT) Lower Respiratory Culture Rare mixed bacterial morphotypes suggestive of normal upper respiratory pascual [facility] Gram Stain Many Neutrophils seen No squamous epithelial cells seen No microorganisms seen. [facility] Bronchial Alveolar Lavage 04/20/2023 3:50 PM EDT 04/20/2023 4:28 PM EDT Narrative Resulting Agency Comment Spec In Lab Vignesh Epstein APRN MICROBIOLOGY - GEN ERAL ORDERABLES Performing Organization Address City/State/[facility] Co de Phone Number [facility] [place] [address] * XR Chest for Verifying Vascular Access PICC Placement At Bedside (04/20/2023 2:12 PM EDT) Anatomical Region Laterality Modality Digital Radiogra phy Impressions 04/20/2023 2:55 PM EDT 1. ??Right upper extremity PICC in satisfactory position. 2. ??Persistent left lower lobe opacity silhouetting the diaphragm suggestive atelectasis and/or pleural effusion. Left lower lobe pneumonia could also have this appearance I have personally reviewed the image(s) and the resident's interpretation and agree with the findings, Brien Avery MD at 04/20/2023 2:55 PM Thank you for letting us participate in the care of this patient. ??If you are a health care provider and have any questions regarding this report, please contact the number below. ??For patients who have questions please contact the health manager managed care that requested your imaging first. ? Narrative 04/20/2023 2:55 PM EDT EXAMINATION: XR CHEST FOR VERIFYING VASCULAR ACCESS PICC PLACEMENT AT BEDSIDE CLINICAL HISTORY: verify PICC placement TECHNIQUE: Limited AP view of the chest for PICC placement COMPARISON: Chest radiograph 04/20/2023 FINDINGS: Support devices: * ??Interval placement of right upper extremity PICC with tip terminating at the lower SVC. * ??Subdiaphragmatic enteric catheter is partially visualized. * ??Endotracheal tube is 2 cm above the nichole. Persistent left retrocardiac opacity silhouetting the diaphragm. Linear atelectasis the right lung base. The cardiomediastinal silhouette is unchanged. Procedure Note Brien Avery MD - 04/20/2023 EXAMINATION: XR CHEST FOR VERIFYING VASCULAR ACCESS PICC PLACEMENT ATBEDSIDE CLINICAL HISTORY: verify PICC placement TECHNIQUE: Limited AP view of the chest for PICC placement COMPARISON: Chest radiograph 04/20/2023 FINDINGS: Support devices: * Interval placement of right upper extremity PICC with tip terminatingat the lower SVC. * Subdiaphragmatic enteric catheter is partially visualized. * Endotracheal tube is 2 cm above the nichole. Persistent left retrocardiac opacity silhouetting the diaphragm. Linear atelectasis the right lung base. The cardiomediastinal silhouette is unchanged. IMPRESSION 1. Right upper extremity PICC in satisfactory position. 2. Persistent left lower lobe opacity silhouetting the diaphragmsuggestive atelectasis and/or pleural effusion. Left lower lobe pneumonia could alsohave this appearance I have personally reviewed the image(s) and the resident's interpretationand agree with the findings, Brien Avery MD at 04/20/2023 2:55 PM Thank you for letting us participate in the care of this patient. If youare a health care provider and have any questions regarding this report,please contact the number below. For patients who have questions please contactthe health manager managed care that requested your imaging first. Tana Smith MD IMG DX ORDERABLES * Place BEDSIDE PICC Line: Contact Vascular Access Page [phone] Is PICC procedure required PRIOR to patients discharge? Yes (04/20/2023 2:00 PM EDT) Narrative Reyes, Jazmin Gardner RN - 04/20/2023 2:00 PM EDT Reyes, Jazmin Gardner RN ? 04/20/2023 ??2:18 PM PICC/Midline Insertion Procedure Note Indications: Access This insertion was not to replace a malfunctioning catheter. This insertion was not due to a suspected line-associated infection. Location of Procedure: Neuro Critical Care Risks and Benefits: The risks and benefits of this procedure were reviewed and informed consent was obtained obtained. Time Out: Prior to the start of the procedure, the patient's identity, intended procedure, site/side, correct patient positioning and presence of the site shawn was confirmed as applicable. The medical history and chart were reviewed to rule out potential contraindications to the planned procedure. Hand Hygiene: The supervisor travel information center did perform hand hygiene prior to line insertion. Catheter type: PICC Lot number: [id number] Procedure Technique: Skin was prepped with chlorhexidine. Skin preparation agent was completely dry at the time of first skin puncture. The following barrier precaution methods were used:large sterile drape, maske/eye shield, large sterile gown, sterile gloves, and cap. 3 ml of 1% Lidocaine was used for skin wheal. Ultrasound was used for guidance. ??Radiographic contrast agent was not injected for vein identification. Procedure Details: Order received for catheter placement. A 5 Fr. triple lumen Bard Power catheter was placed into the right brachial vein over a 0.018 inch guidewire using modified seldinger technique and fluoroscopy. Arm circumference was 37 cm at 2 cm above the insertion site. Final catheter length (with trimming): 50 cm Internal: 50 cm External: 0 cm Tip in SVC per Killam. The line was not placed over a guidewire. Post Procedure: Diagnosis: ICH Blood return noted on aspiration of line after placement confirmed. 3 mls of normal saline infused free flowing to gravity via PICC after insertion. Sterile dressing applied: CHG Impregnated Tegaderm. Findings: The patient did tolerate the procedure well. No Complications. Procedure Comments: Successful bedside PICC insertion performed by CARSON Rivera RN 04/20/2023 Tana Smith MD PROCEDURE/MINOR SURG ICAL ORDERABLES * POCT Glucose (04/20/2023 12:04 PM EDT) Glucose, POC 123 65 - 199 mg/dL [facility] Comment: Supplemental ranges: <140 mg/dL before meals <180 mg/dL all other times of the day Blood 04/20/2023 12:0 4 PM EDT 04/20/2023 12:04 PM EDT Tana Smith MD POINT OF CARE TEST O RDERATAYLOR Performing Organization Address City/[facility] Co de Phone Number [facility] [place] [address] * POCT Glucose (04/20/2023 7:59 AM EDT) Glucose, POC 137 65 - 199 mg/dL [facility] Comment: Supplemental ranges: <140 mg/dL before meals <180 mg/dL all other times of the day Blood 04/20/2023 7:59 AM EDT 04/20/2023 7:59 AM EDT Tana Smith MD POINT OF CARE TEST O DYANAERATAYLOR Performing Organization Address [facility] Co de Phone Number [facility] [place] [address] * (ABNORMAL) BLOOD GAS 2 ARTERIAL (04/20/2023 5:40 AM EDT) pH, Arterial 7.46(H) 7.35 - 7.45 [facility] PCO2, Arterial 36 35 - 45 mmHg [facility] PO2, Arterial 65(L) 85 - 104 mmHg [facility] Bicarbonate, Arterial 25.2 20.0 - 26.0 mmol/L [facility] Base Excess, Arterial 1.4 -3.0 - 3.0 mmol/L [facility] Hgb Blood Gas 13.9 13.7 - 16.5 g/dL [facility] Oxyhemoglobin, Arterial 92.9(L) 94.0 - 97.0 % [facility] Carboxyhemoglob in, Arterial 0.3 % [facility] Comment: Nonsmokers: 0.5-1.5% COHB Smokers: Variable, but usually less than 10% Toxic: 20-30% COHB Lethal: Greater than 60% COHB Methemoglobin, Arterial 0.1 <=1.5 % [facility] Na Whole Blood 139 135 - 145 mmol/L [facility] K Whole Blood 3.7 3.5 - 5.0 mmol/L [facility] Comment: Please note: Patients with WBC >100,000 may have falsely elevated Potassium levels. Contact the Clinical Chemistry Laboratory if there are any questions. ICa Whole Blood 1.12(L) 1.15 - 1.33 mmol/L [facility] Comment: Note: ??Total bilirubin higher than 20 mg/dL may lead to falsely low ionized calcium. CL Whole Blood 103 98 - 107 mmol/L [facility] Gluc Whole Bld 136 65 - 199 mg/dL [facility] Comment:Diabetes: >=200 mg/d L plus symptoms. Lactate WB 1.2 0.5 - 2.2 mmol/L [facility] FIO2 Art 50 % [facility] PF Ratio Art 130 [facility] Blood 04/20/2023 5:40 AM EDT 04/20/2023 5:40 AM EDT Tana Smith MD POINT OF CARE TEST O SARAH Performing Organization Address [facility] Co de Phone Number [facility] [place] [address] * POCT Glucose (04/20/2023 4:42 AM EDT) Glucose, POC 133 65 - 199 mg/dL [facility] Comment: Supplemental ranges: <140 mg/dL before meals <180 mg/dL all other times of the day Blood 04/20/2023 4:42 AM EDT 04/20/2023 4:42 AM EDT Tana Smith MD POINT OF CARE TEST O SARAH Performing Organization Address [facility] Co de Phone Number [facility] [place] [address] * XR Chest One View (04/20/2023 4:32 AM EDT) Anatomical Region Laterality Modality Chest N/A Digital Radiogra phy Impressions 04/20/2023 5:02 AM EDT 1. ??Endotracheal tube tip projects over the lower trachea 2 cm from the nichole. 2. ??Nonspecific left retrocardiac opacity with truncation of the bronchial air column suspicious for mucous plugging versus aspiration. 3. ??Left lower lobe opacity either lobar atelectasis versus pneumonia. 4. ??Nonspecific peribronchial thickening/cuffing may represent interstitial edema versus infectious/inflammatory bronchiolitis. Preliminary report signed by: Steve Paredes MD at 04/20/2023 4:52 AM I have personally reviewed the image(s) and the resident's interpretation and agree with the findings, Brien Durán MD at 04/20/2023 5:02 AM Thank you for letting us participate in the care of this patient. ??If you are a health care provider and have any questions regarding this report, please contact the number below. ??For patients who have questions please contact the health manager managed care that requested your imaging first. ? Electronically signed by: Brien Durán MD, [facility] ([phone]), at 04/20/2023 5:02 AM Narrative 04/20/2023 5:02 AM EDT EXAMINATION: XR CHEST ONE VIEW CLINICAL HISTORY: ETT placement TECHNIQUE: AP portable semiupright view of the chest , 2 images COMPARISON: Radiograph of the chest 04/18/2023 FINDINGS: An endotracheal tube projects 2 cm above the nichole. An enteric tube courses below diaphragm with tip out of the [id number]. EKG leads are present. Persistent dense left retrocardiac opacity with truncation of the left lower lobe segmental bronchus. Pulmonary vascular markings remain prominent and indistinct. There is perihilar peribronchial thickening/cuffing. No pneumothorax. Right costophrenic angle not fully included in the [id number]. No right-sided effusion. Unchanged blunting of the left costophrenic angle likely small effusion. Limited assessment of osseous structures demonstrates no acute abnormality. Procedure Note Brien Durán MD - 04/20/2023 EXAMINATION: XR CHEST ONE VIEW CLINICAL HISTORY: ETT placement TECHNIQUE: AP portable semiupright view of the chest , 2 images COMPARISON: Radiograph of the chest 04/18/2023 FINDINGS: An endotracheal tube projects 2 cm above the nichole. An enteric tube courses below diaphragm with tip out of [id number]. EKG leads are present. Persistent dense left retrocardiac opacity with truncation of the leftlower lobe segmental bronchus. Pulmonary vascular markings remain prominentand indistinct. There is perihilar peribronchial thickening/cuffing. No pneumothorax. Right costophrenic angle not fully included in [id number]. No right-sided effusion. Unchanged blunting of the left costophrenicangle likely small effusion. Limited assessment of osseous structuresdemonstrates no acute abnormality. IMPRESSION 1. Endotracheal tube tip projects over the lower trachea 2 cm from thecarina. 2. Nonspecific left retrocardiac opacity with truncation of the bronchialair column suspicious for mucous plugging versus aspiration. 3. Left lower lobe opacity either lobar atelectasis versus pneumonia. 4. Nonspecific peribronchial thickening/cuffing may representinterstitial edema versus infectious/inflammatory bronchiolitis. Preliminary report signed by: Steve Paredes MD at 04/20/2023 4:52 AM I have personally reviewed the image(s) and the resident's interpretationand agree with the findings, Brien Durán MD at 04/20/2023 5:02 AM Thank you for letting us participate in the care of this patient. If youare a health care provider and have any questions regarding this report,please contact the number below. For patients who have questions please contactthe health manager managed care that requested your imaging first. Tana Smith MD IMG DX ORDERABLES * CT Head wo Contrast (Generic) (04/20/2023 4:18 AM EDT) Anatomical Region Laterality Modality Head Computed Tomogra phy Impressions 04/20/2023 4:38 AM EDT 1. ??Similar quantity of moderate volume intraventricular blood products allowing for redistribution. 2. ??Unchanged size of right cerebellar intraparenchymal hemorrhage in the region of the dentate nucleus. 3. ??Unchanged caliber of the ventricular system. 4. ??Infarct-related change involving the posterior medial left parietal lobe. Suggest brain MRI for further characterization. Thank you for letting us participate in the care of this patient. ??If you are a health care provider and have any questions regarding this report, please contact the number below. ??For patients who have questions please contact the health manager managed care that requested your imaging first. ? Electronically signed by: Brien Durán MD, [facility] ([phone]), at 04/20/2023 4:38 AM Narrative 04/20/2023 4:38 AM EDT EXAMINATION: CT HEAD WO CONTRAST (GENERIC) CLINICAL HISTORY: Mental status change, persistent or worsening cerebellar hemorrhage s/p EVD placement. decreased mental status requiring intubation TECHNIQUE: CT head performed without intravenous contrast administration. COMPARISON: Head CT 04/19/2023 FINDINGS: Right anterior approach ventricular catheter with tip projecting at the foramen of Augusto. Similar quantity of intraventricular blood products within the anterior lateral ventricles, third ventricle, cerebral aqueduct and fourth ventricle. Unchanged size of right cerebellar intraparenchymal hemorrhage in the region of the dentate nucleus with hemorrhage measuring 2.8 cm in size (axial series 2 image 28). There are some low-attenuation in the right cerebellar deep white matter (coronal series 6 image 51), consistent with vasogenic edema. Unchanged caliber of the ventricular system. No extra-axial collections. There is abnormal loss of foster matter white matter differentiation involving the medial left parietal lobe (axial series 2 image 14, sagittal series 7 image 33). This is similar to the prior exam. The orbits are unremarkable. Partial visualized endotracheal tube and enteric tube. Mild mucosal thickening of the left maxillary sinus with small quantity of layering secretions in the right sphenoid sinus, left maxillary sinus and ethmoid sinuses. Trace opacification of the inferior mastoid air cells bilaterally likely effusions. Superior right frontal darell hole. No acute osseous findings. No suspicious osseous lesions. Procedure Note Brien Durán MD - 04/20/2023 EXAMINATION: CT HEAD WO CONTRAST (GENERIC) CLINICAL HISTORY: Mental status change, persistent or worsening cerebellar hemorrhage s/p EVD placement. decreased mental statusrequiring intubation TECHNIQUE: CT head performed without intravenous contrast administration. COMPARISON: Head CT 04/19/2023 FINDINGS: Right anterior approach ventricular catheter with tip projecting at theforamen of Augusto. Similar quantity of intraventricular blood products within the anteriorlateral ventricles, third ventricle, cerebral aqueduct and fourth ventricle.Unchanged size of right cerebellar intraparenchymal hemorrhage in the region ofthe dentate nucleus with hemorrhage measuring 2.8 cm in size (axial series 2image 28). There are some low-attenuation in the right cerebellar deep whitematter (coronal series 6 image 51), consistent with vasogenic edema. Unchanged caliber of the ventricular system. No extra-axial collections. There is abnormal loss of foster matter white matter differentiationinvolving the medial left parietal lobe (axial series 2 image 14, sagittal series 7image 33). This is similar to the prior exam. The orbits are unremarkable. Partial visualized endotracheal tube andenteric tube. Mild mucosal thickening of the left maxillary sinus with smallquantity of layering secretions in the right sphenoid sinus, left maxillary sinusand ethmoid sinuses. Trace opacification of the inferior mastoid air cells bilaterally likely effusions. Superior right frontal darell hole. No acuteosseous findings. No suspicious osseous lesions. IMPRESSION 1. Similar quantity of moderate volume intraventricular blood productsallowing for redistribution. 2. Unchanged size of right cerebellar intraparenchymal hemorrhage in theregion of the dentate nucleus. 3. Unchanged caliber of the ventricular system. 4. Infarct-related change involving the posterior medial left parietallobe. Suggest brain MRI for further characterization. Thank you for letting us participate in the care of this patient. If youare a health care provider and have any questions regarding this report,please contact the number below. For patients who have questions please contactthe health manager managed care that requested your imaging first. Tana Smith MD IMG CT ORDERABLES * (ABNORMAL) BLOOD GAS 2 VENOUS (04/20/2023 3:20 AM EDT) pH, Venous 7.42 7.32 - 7.42 [facility] PCO2, Venous 40(L) 41 - 51 mmHg [facility] PO2, Venous 39 25 - 40 mmHg [facility] Bicarbonate, Venous 25.9 mmol/L [facility] Base Excess, Venous 1.5 mmol/L [facility] Hgb Blood Gas 14.8 13.7 - 16.5 g/dL [facility] Oxyhemoglobin, Venous 73.1 % [facility] Carboxyhemoglob in, Venous 0.3 % [facility] Comment: Nonsmokers: 0.5-1.5% COHB Smokers: Variable, but usually less than 10% Toxic: 20-30% COHB Lethal: Greater than 60% COHB Methemoglobin, Venous 0.2 <=1.5 % [facility] Na Whole Blood 140 135 - 145 mmol/L [facility] K Whole Blood 3.7 3.5 - 5.0 mmol/L [facility] Comment: Please note: Patients with WBC >100,000 may have falsely elevated Potassium levels. Contact the Clinical Chemistry Laboratory if there are any questions. ICa Whole Blood 1.12(L) 1.15 - 1.33 mmol/L [facility] Comment: Note: ??Total bilirubin higher than 20 mg/dL may lead to falsely low ionized calcium. CL Whole Blood 102 98 - 107 mmol/L [facility] Gluc Whole Bld 136 65 - 199 mg/dL [facility] Comment:Diabetes: >=200 mg/d L plus symptoms Lactate WB 1.5 0.5 - 2.2 mmol/L [facility] Fraction of Inspired Oxygen, Venous 100 % [facility] Blood Gas Source Venous [facility] Blood 04/20/2023 3:20 AM EDT 04/20/2023 3:20 AM EDT Tana Smith MD POINT OF CARE TEST O RDERABLES Performing Organization Address [facility] de Phone Number [facility] [place] [address] * Triglyceride (04/20/2023 1:10 AM EDT) Pathologist [facility] Triglyceride 82 mg/dL [facility] Comment: Normal: ?<150 mg/dL Borderline High: 150-199 mg/dL High: ?200-499 mg/dL Very High: ? >oo=851 mg/dL Blood Venous Draw / Unknown 04/20/2023 1:10 AM EDT 04/20/2023 1:18 AM EDT Narrative Resulting Agency Comment Spec In Lab Coleman TAFOYA CHEMISTRY ORDERABLES Performing Organization Address [facility] de Phone Number [facility] [place] [address] * (ABNORMAL) Differential, Automated (04/20/2023 1:10 AM EDT) Pathologist [facility] Neutrophil % 82.6 % [facility] Neutrophil Absolute 8.75(H) 1.70 - 6.10 x10(3)/mc L [facility] Lymph % 8.8 % [facility] Lymphocytes Abs 0.9 0.9 - 3.2 x10(3)/mc L [facility] Monocyte % 7.7 % [facility] Monocyte Abs 0.8 0.3 - 0.9 x10(3)/mc L [facility] Eos % 0.3 % [facility] Eosinophils Abs 0.0 0.0 - 0.4 x10(3)/mc L [facility] Basophil % 0.3 % [facility] Baso Absolute 0.0 0.0 - 0.1 x10(3)/mc L [facility] Immature Gran % 0.30 % [facility] Comment: Immature granulocytes(IG's)percentage and absolute count will include metamyelocytes, myelocytes, and promyelocytes. Blood smears from CBCs yielding IG's will be scanned manually for concordance. If this scan disagrees with the automated IG or if promyelocytes are noted, a manual differential will be performed. Immature Gran Absolute 0.03 0.00 - 0.04 x10(3)/ L [facility] Blood 04/20/2023 1:10 AM EDT 04/20/2023 1:17 AM EDT Narrative Resulting Agency Comment Spec In Lab Nilda Jeronimo OPERATIONS INTERN HEMATOLOGY ORDERAB LES Performing Organization Address City/State/[facility] Co de Phone Number [facility] [place] [address] * (ABNORMAL) Hemogram (04/20/2023 1:10 AM EDT) White Blood Cell 10.6(H) 4.0 - 9.5 x10(3)/ L [facility] Red Blood Cell 4.28(L) 4.58 - 5.54 x10(6)/[facility] Hemoglobin 13.5(L) 13.7 - 16.5 g/dL [facility] Hematocrit 39.6(L) 40.5 - 48.5 % [facility] Mean Cell Volume 92.5 82.9 - 93.1 fL [facility] Mean Cell Hemoglobin 31.5 27.5 - 32.1 pg [facility] Mean Cell Hemoglobin Concentration 34.1 32.0 - 35.7 g/dL [facility] Platelet 168 145 - 357 x10(3)/ L [facility] RDW Standard Deviation 47.1(H) 36.0 - 45.0 fL [facility] RDW coefficient of variation 13.9(H) 11.4 - 13.8 % [facility] Mean Platelet Volume 10.9 7.6 - 12.9 fL [facility] NRBC% auto 0.0 % [facility] NRBC Absolute 0.000 0.000 - 0.000 x10(3)/mc L [facility] Blood 04/20/2023 1:10 AM EDT 04/20/2023 1:17 AM EDT Narrative Resulting Agency Comment Spec In Lab Nilda Jeronimo OPERATIONS INTERN HEMATOLOGY ORDERAB LES Performing Organization Address City/[facility]/ZIP Co de Phone Number [facility] [place] [address] * (ABNORMAL) Phosphorus (04/20/2023 1:10 AM EDT) Phosphorus 2.4(L) 2.5 - 4.5 mg/dL [facility] Blood 04/20/2023 1:10 AM EDT 04/20/2023 1:17 AM EDT Narrative Resulting Agency Comment Spec In Lab Nilda Jeronimo OPERATIONS INTERN CHEMISTRY ORDERABL ES Performing Organization Address [facility] Co de Phone Number [facility] [place] [address] * Magnesium (04/20/2023 1:10 AM EDT) Magnesium 0.75 0.69 - 1.07 mmol/L [facility] Blood 04/20/2023 1:10 AM EDT 04/20/2023 1:17 AM EDT Narrative Resulting Agency Comment Spec In Lab Nilda Jeronimo OPERATIONS INTERN CHEMISTRY ORDERABL ES Performing Organization Address [facility] Co de Phone Number [facility] [place] [address] * (ABNORMAL) Basic Metabolic Panel (non-fasting) (04/20/2023 1:10 AM EDT) Glucose 168 65 - 199 mg/dL [facility] Comment:Diabetes: >=200 mg/d L plus symptoms Blood Urea Nitrogen 18 10 - 20 mg/dL [facility] Creatinine 1.03 0.80 - 1.50 mg/dL [facility] Sodium 136 135 - 145 mmol/L [facility] Potassium 3.4(L) 3.5 - 5.0 mmol/L [facility] Comment: Please note: ??Patients with WBC >100,000 may have falsely elevated Potassium levels. ??For accurate Potassium quantification in these patients send serum separator tube (gold top) for subsequent determinations. ??Contact the Clinical Chemistry Laboratory if there are any questions. Chloride 101 98 - 107 mmol/L [facility] Carbon Dioxide 27 22 - 31 mmol/L [facility] Anion Gap 8 5 - 15 mmol/L [facility] Calcium 8.5 8.5 - 10.5 mg/dL [facility] Est Glomerular Filtration Rate 81 >=60 mL/min/1. 73 m?? [facility] Comment: This patient's estimated GFR [...] and symptoms in addition to eGFR. Blood 04/20/2023 1:10 AM EDT 04/20/2023 1:17 AM EDT Narrative Resulting Agency Comment Spec In Lab Nilda Jeronimo APRN CHEMISTRY ORDERABL ES [facility] [place] [address] * POCT Glucose (04/20/2023 12:08 AM EDT) Glucose, POC 163 65 - 199 mg/dL [facility] Comment: Supplemental ranges: <140 mg/dL before meals <180 mg/dL all other times of the day Blood 04/20/2023 12:0 8 AM EDT 04/20/2023 12:08 AM EDT Tana Smith MD POINT OF CARE TEST O RDERATAYLOR Performing Organization Address City/[facility]/ZIP Co de Phone Number [facility] [place] [address] * POCT Glucose (04/19/2023 8:44 PM EDT) Glucose, POC 128 65 - 199 mg/dL [facility] Comment: Supplemental ranges: <140 mg/dL before meals <180 mg/dL all other times of the day Blood 04/19/2023 8:44 PM EDT 04/19/2023 8:44 PM EDT Tana Smith MD POINT OF CARE TEST O DYANAERATAYLOR Performing Organization Address [facility] Co de Phone Number [facility] [place] [address] * CT Head wo Contrast (Generic) (04/19/2023 4:26 PM EDT) Anatomical Region Laterality Modality Head Computed Tomogra phy Impressions 04/19/2023 4:40 PM EDT Further decreased caliber of the supratentorial ventricles. Similar volume of right cerebellar and intraventricular hemorrhage. Persistent expansion of the third ventricle, cerebral aqueduct and fourth ventricle. Thank you for letting us participate in the care of this patient. ??If you are a health care provider and have any questions regarding this report, please contact the number below. ??For patients who have questions please contact the health manager managed care that requested your imaging first. ? Narrative 04/19/2023 4:40 PM EDT EXAMINATION: CT HEAD WO CONTRAST (GENERIC) CLINICAL HISTORY: R cerebellar hemorrhage c IVH obstructive hydro, forced downward gaze TECHNIQUE: CT Head was performed without contrast COMPARISON: CT head 04/19/2023 FINDINGS: Similar size of recent hemorrhage within the right cerebellar hemisphere extending into and casting the fourth ventricle and the inferior foramen. No cerebellar tonsillar ectopia. Intraventricular blood products expands the cerebral aqueduct and filled the third ventricle extending into the lateral ventricles , similar to the prior exam. Further interval reduction in ventricular caliber with now slitlike right lateral ventricle. Prepontine and basilar cisterns appear similar. Similar soft tissue changes of right frontal approach external ventricular drain. No new extra-axial collection. No midline shift. Foster-white differentiation otherwise appears maintained. Procedure Note Michelle Munoz MD - 04/19/2023 EXAMINATION: CT HEAD WO CONTRAST (GENERIC) CLINICAL HISTORY: R cerebellar hemorrhage c IVH obstructive hydro,forced downward gaze TECHNIQUE: CT Head was performed without contrast COMPARISON: CT head 04/19/2023 FINDINGS: Similar size of recent hemorrhage within the right cerebellar hemisphere extending into and casting the fourth ventricle and theinferior foramen. No cerebellar tonsillar ectopia. Intraventricular bloodproducts expands the cerebral aqueduct and filled the third ventricle extendinginto the lateral ventricles , similar to the prior exam. Further interval reductionin ventricular caliber with now slitlike right lateral ventricle. Prepontineand basilar cisterns appear similar. Similar soft tissue changes of rightfrontal approach external ventricular drain. No new extra-axial collection. Nomidline shift. Foster-white differentiation otherwise appears maintained. IMPRESSION Further decreased caliber of the supratentorial ventricles. Similar volumeof right cerebellar and intraventricular hemorrhage. Persistent expansion ofthe third ventricle, cerebral aqueduct and fourth ventricle. Thank you for letting us participate in the care of this patient. If youare a health care provider and have any questions regarding this report,please contact the number below. For patients who have questions please contactthe health manager managed care that requested your imaging first. Tana Smith MD IMG CT ORDERABLES * POCT Glucose (04/19/2023 3:15 PM EDT) Glucose, POC 147 65 - 199 mg/dL [facility] Comment: Supplemental ranges: <140 mg/dL before meals <180 mg/dL all other times of the day Blood 04/19/2023 3:15 PM EDT 04/19/2023 3:15 PM EDT Tana Smith MD POINT OF CARE TEST O RDERABLES [facility] [place] [address] * ECHO COMPLETE W CONTRAST (04/19/2023 12:38 PM EDT) Anatomical Region Laterality Modality Cardiac Other 04/19/2023 11:2 8 AM EDT Narrative 04/19/2023 12:53 PM EDT [address] [place] [address] ? Echocardiogram Report Name: MYLA ACOSTA ? Study Date: 04/19/2023 11:28 AMBP: 163/81 mmHg ? Patient Location: [id number] : 1955 ? Height: 174 cm ? Account: [id number] Age: 67 yrs ? Weight: 112 kg Gender: Male ?BSA: 2.2 m2 Ordering Physician: TANA SMITH Referring Physician: NAYANA BLACKWOOD Performed By: Wilmer Padilla RDCS Reason For Study: Nontraumatic intracerebral hemorrhage of cerebellum, unspecified laterality Exam Location: [facility]. Interpretation Summary -There is severe concentric left ventricular hypertrophy. Left ventricular systolic function is normal. The left ventricular ejection fraction is 70% by Hester's biplane. There are no segmental wall motion abnormalities. -The right ventricle is probably normal in size. Right ventricular function is probably normal. -No significant valve disease. -The aortic root is dilated. The diameter at the level of the sinuses of Valsalva is 4.2 cm. The ascending aorta is dilated. The maximum diameter of the proximal ascending aorta is 4.5 cm. -No comparison study is available. Procedure Complete-14554. Image enhancement Optison was used for left ventricular opacification. Suboptimal quality. There is sinus tachycardia. Left Ventricle Left ventricle is mildly dilated. (77.4ml/m2). Wall thickness is severely increased. There is no left ventricular outflow tract obstruction. There is no ventricular septal defect. Left ventricular systolic function is normal. The left ventricular ejection fraction is 70% by Hester's biplane. There are no segmental wall motion abnormalities. Right Ventricle The right ventricle is not well visualized. The right ventricle is probably normal in size. Right ventricular function is probably normal. Left Atrium The left atrium is normal. The interatrial septum is not well visualized. Right Atrium The right atrium is normal. Aortic Valve The aortic valve is not well visualized. The aortic valve is probably trileaflet. The aortic valve is mildly thickened. There is no aortic stenosis. There is no aortic regurgitation. Mitral Valve The mitral valve leaflets are thickened. There is no mitral stenosis. There is trace mitral regurgitation. Tricuspid Valve The tricuspid valve is not well visualized. There is no tricuspid stenosis. The severity of tricuspid regurgitation cannot be determined from the available data. Pulmonic Valve The pulmonic valve appears to be structurally and functionally normal. There is no pulmonic valve regurgitation. Great Arteries The aortic root is dilated. The diameter at the level of the sinuses of Valsalva is 4.2 cm. The ascending aorta is dilated. The maximum diameter of the proximal ascending aorta is 4.5 cm. The main pulmonary artery is not well visualized. Venous Inferior vena cava is not well visualized. Pericardium/Pleural There is no pericardial effusion. Hemodynamics Pulmonary artery hypertension could not be assessed due to inadequate tricuspid regurgitation jet. There is fusion of the E and A waves therefore unable to assess diastolic function. Left ventricular diastolic function is indeterminate. Left ventricular filling pressure is indeterminate. Ejection Fraction ?2D Measurements ? Volumes LV Biplane EF: 70.0 % ? IVSd: 2.2 cm ? LA Volume Index: ?LVIDd: 5.2 cm ?LVPWd: 2.1 cm ?27.2 ml/m2 ?RWT: 0.80 {ratio} ?RA A4Cs_phl: 13.9 cm2 ? RA ESV Indexed: ?LV mass(C)d: 579.7 grams ?LV mass(C)dI: 257.9 grams/m2 ?? 12.9 ml/m2 ?Ao root diam: 4.2 cm ? EDV Biplane: 174.0 ml ?Ao root diam index: 1.9 ?EDV BP Indexed: ?asc Aorta Diam: 4.5 cm ? 77.4 ml/m2 ?LVOT diam: 2.2 cm ?ESV Biplane: 52.2 ml ?TAPSE_phl: 2.5 cm ?ESV BP Indexed: ? 23.2 ml/m2 I ?WMSI = 1.00 ? % Normal = 100 ?Segments ??Size X - Cannot ?2 - ?4 - ?1-2 ? small Interpret ?1 - Normal ?? Hypokinetic 3 - Akinetic Dyskinetic ?? 3-5 ? moderate 5 - ? 6-14 ?large Aneurysmal ?15-16 ?? diffuse Procedure Note David Rosa MD - 04/19/[address] [place] [address] Echocardiogram Report Name: MYLA ACOSTA Study Date: 1:28 AMBP: 163/81 mmHg Patient Location:[facility]^336^A : 1955 Height: 174 cm Account: [id number] Age: 67 yrs Weight: 112 kg Gender: Male BSA: 2.2 m2 Ordering Physician: TANA SMITH Referring Physician: NAYANA BLACKWOOD Performed By: Wilmer Padilla RDCS Reason For Study: Nontraumatic intracerebral hemorrhage of cerebellum, unspecified laterality Exam Location: [facility]. Interpretation Summary -There is severe concentric left ventricular hypertrophy. Leftventricular systolic function is normal. The left ventricular ejection fraction is 70%by Hester's biplane. There are no segmental wall motion abnormalities. -The right ventricle is probably normal in size. Right ventricularfunction is probably normal. -No significant valve disease. -The aortic root is dilated. The diameter at the level of the sinuses ofValsalva is 4.2 cm. The ascending aorta is dilated. The maximum diameter of theproximal ascending aorta is 4.5 cm. -No comparison study is available. Procedure Complete-[id number]. Image enhancement Optison was used for left ventricular opacification. Suboptimal quality. There is sinus tachycardia. Left Ventricle Left ventricle is mildly dilated. (77.4ml/m2). Wall thickness isseverely increased. There is no left ventricular outflow tract obstruction. Thereis no ventricular septal defect. Left ventricular systolic function is normal.The left ventricular ejection fraction is 70% by Hester's biplane. There are nosegmental wall motion abnormalities. Right Ventricle The right ventricle is not well visualized. The right ventricle isprobably normal in size. Right ventricular function is probably normal. Left Atrium The left atrium is normal. The interatrial septum is not wellvisualized. Right Atrium The right atrium is normal. Aortic Valve The aortic valve is not well visualized. The aortic valve is probablytrileaflet. The aortic valve is mildly thickened. There is no aortic stenosis. Thereis no aortic regurgitation. Mitral Valve The mitral valve leaflets are thickened. There is no mitral stenosis.There is trace mitral regurgitation. Tricuspid Valve The tricuspid valve is not well visualized. There is no tricuspidstenosis. The severity of tricuspid regurgitation cannot be determined from theavailable data. Pulmonic Valve The pulmonic valve appears to be structurally and functionally normal.There is no pulmonic valve regurgitation. Great Arteries The aortic root is dilated. The diameter at the level of the sinuses ofValsalva is 4.2 cm. The ascending aorta is dilated. The maximum diameter of theproximal ascending aorta is 4.5 cm. The main pulmonary artery is not wellvisualized. Venous Inferior vena cava is not well visualized. Pericardium/Pleural There is no pericardial effusion. Hemodynamics Pulmonary artery hypertension could not be assessed due to inadequatetricuspid regurgitation jet. There is fusion of the E and A waves therefore unableto assess diastolic function. Left ventricular diastolic function is indeterminate.Left ventricular filling pressure is indeterminate. Ejection Fraction 2D Measurements Volumes LV Biplane EF: 70.0 % IVSd: 2.2 cm LA VolumeIndex: LVIDd: 5.2 cm LVPWd: 2.1 cm 27.2 ml/m2 RWT: 0.80 {ratio} RA A4Cs_phl: 13.9cm2 RA ESV Indexed: LV mass(C)d: 579.7 grams LV mass(C)dI: 257.9 grams/m2 12.9 ml/m2 Ao root diam: 4.2 cm EDV Biplane:174.0 ml Ao root diam index: 1.9 EDV BP Indexed: asc Aorta Diam: 4.5 cm 77.4 ml/m2 LVOT diam: 2.2 cm ESV Biplane: 52.2ml TAPSE_phl: 2.5 cm ESV BP Indexed: 23.2 ml/m2 I WMSI = 1.00 % Normal = 100 SegmentsSize X - Cannot 2 - 4 - 1-2small Interpret 1 - Normal Hypokinetic 3 - Akinetic Dyskinetic 3-5moderate 5 - 6-14large Aneurysmal 15-16diffuse Tana Smith MD ECHO ORDERABLES * (ABNORMAL) Potassium (04/19/2023 12:00 PM EDT) Pathologist [facility] Potassium 3.3(L) 3.5 - 5.0 mmol/L [facility] Comment: Please note: ??Patients with WBC >100,000 may have falsely elevated Potassium levels. ??For accurate Potassium quantification in these patients send serum separator tube (gold top) for subsequent determinations. ??Contact the Clinical Chemistry Laboratory if there are any questions. Blood 04/19/2023 12:0 0 PM EDT 04/19/2023 12:25 PM EDT Narrative Resulting Agency Comment Spec In Lab Tana Smith MD CHEMISTRY ORDERABLES [facility] [place] [address] * POCT Glucose (04/19/2023 11:07 AM EDT) Glucose, POC 134 65 - 199 mg/dL [facility] Comment: Supplemental ranges: <140 mg/dL before meals <180 mg/dL all other times of the day Blood 04/19/2023 11:0 7 AM EDT 04/19/2023 11:07 AM EDT Tana Smith MD POINT OF CARE TEST O RDERATAYLOR [facility] [place] [address] * POCT Glucose (04/19/2023 7:45 AM EDT) Glucose, POC 124 65 - 199 mg/dL [facility] Comment: Supplemental ranges: <140 mg/dL before meals <180 mg/dL all other times of the day Blood 04/19/2023 7:45 AM EDT 04/19/2023 7:45 AM EDT Tana Smith MD POINT OF CARE TEST O SARAH Performing Organization Address [facility] Co de Phone Number [facility] [place] [address] * POCT Glucose (04/19/2023 4:13 AM EDT) Glucose, POC 148 65 - 199 mg/dL [facility] Comment: Supplemental ranges: <140 mg/dL before meals <180 mg/dL all other times of the day Blood 04/19/2023 4:13 AM EDT 04/19/2023 4:13 AM EDT Tana Smith MD POINT OF CARE TEST O SARAH Performing Organization Address City/[facility]/ZIP Co de Phone Number [facility] [place] [address] * Lactate, whole blood, send to lab ([facility]) (04/19/2023 2:58 AM EDT) Lactate WB 1.5 0.5 - 2.2 mmol/L [facility] Blood 04/19/2023 2:58 AM EDT 04/19/2023 3:02 AM EDT Narrative Resulting Agency Comment Spec In Lab Nilda Jeronimo OPERATIONS INTERN CHEMISTRY ORDERABL ES [facility] [place] [address] * CT Head wo Contrast (Generic) (04/19/2023 1:05 AM EDT) Anatomical Region Laterality Modality Head Computed Tomogra phy Impressions 04/19/2023 1:45 AM EDT 1. ??Interval decompression of the right lateral ventricle with persistent enlargement of the left lateral ventricle and resulting left to right subfalcine shift. 2. ??Stable size of the right cerebellar hemisphere parenchymal hemorrhage in the region of the dentate nucleus. I Narciso Gonzales MD discussed the results with neuro critical care, pager [phone] NILDA JERONIMO on 04/19/2023 1:42 AM and verified that the results were understood. Thank you for letting us participate in the care of this patient. ??If you are a health care provider and have any questions regarding this report, please contact the number below. ??For patients who have questions please contact the health manager managed care that requested your imaging first. ? Electronically signed by: Narciso Gonzales MD, [facility] ([phone]), at 04/19/2023 1:45 AM Narrative 04/19/2023 1:45 AM EDT EXAMINATION: CT HEAD WO CONTRAST (GENERIC) CLINICAL HISTORY: Mental status change, unknown cause; Stroke, follow up TECHNIQUE: CT head performed without intravenous contrast administration. COMPARISON: 04/18/2023 0927 hours FINDINGS: There is a ventricular drain arriving from right frontal, traversing the frontal horn right lateral ventricle and terminating in the region of foramen of Kearns just short of the midline. There is hemorrhage casting the third ventricle and the lateral ventricles as well as the aqueduct of Sylvius and the fourth ventricle. There is hemorrhage casting foramen of Luschka and Magendie. There is a parenchymal hemorrhage projecting in the right cerebellar hemisphere in the region of the dentate nucleus, unchanged in size and morphology compared to prior examination of 0927 hours. The basal cisterns remain patent. No evidence of transforaminal herniation through the foramen magnum. The supratentorial basal cisterns are patent. There is interval decompression of the right lateral ventricle with interval decrease in size. The entirety of the left lateral ventricle remains enlarged with new left to right subfalcine shift best appreciated on image 17 through 20 of series 2. The left cingulate gyrus has crossed the midline and there is asymmetry in the parafalcine subarachnoid space on image 19 series 2. The septum pellucidum now projects approximately 8 mm from the midline on the right on image 19 of series 2. Procedure Note Narciso Gonzales MD - 04/19/2023 EXAMINATION: CT HEAD WO CONTRAST (GENERIC) CLINICAL HISTORY: Mental status change, unknown cause; Stroke, follow up TECHNIQUE: CT head performed without intravenous contrast administration. COMPARISON: 04/18/2023 0927 hours FINDINGS: There is a ventricular drain arriving from right frontal, traversing thefrontal horn right lateral ventricle and terminating in the region of foramen ofMonroe just short of the midline. There is hemorrhage casting the third ventricle and the lateral ventriclesas well as the aqueduct of Sylvius and the fourth ventricle. There ishemorrhage casting foramen of Luschka and Magendie. There is a parenchymal hemorrhage projecting in the right cerebellarhemisphere in the region of the dentate nucleus, unchanged in size and morphologycompared to prior examination of 0927 hours. The basal cisterns remain patent. No evidence of transforaminalherniation through the foramen magnum. The supratentorial basal cisterns are patent. There is interval decompression of the right lateral ventricle withinterval decrease in size. The entirety of the left lateral ventricle remainsenlarged with new left to right subfalcine shift best appreciated on image 17through 20 of series 2. The left cingulate gyrus has crossed the midline and thereis asymmetry in the parafalcine subarachnoid space on image 19 series 2. The septum pellucidum now projects approximately 8 mm from the midline onthe right on image 19 of series 2. IMPRESSION 1. Interval decompression of the right lateral ventricle withpersistent enlargement of the left lateral ventricle and resulting left to rightsubfalcine shift. 2. Stable size of the right cerebellar hemisphere parenchymal hemorrhagein the region of the dentate nucleus. I Narciso Gonzales MD discussed the results with neuro critical care, [phone] NILDA JERONIMO on 04/19/2023 1:42 AM and verified that the results were understood. Thank you for letting us participate in the care of this patient. If youare a health care provider and have any questions regarding this report,please contact the number below. For patients who have questions please contactthe health manager managed care that requested your imaging first. Nilda Jeronimo OPERATIONS INTERN IMG CT ORDERABLES * Scan, Peripheral Blood (04/19/2023 12:35 AM EDT) Pathologist [facility] Plat estimate Normal [facility] RBC Morphology Abnormal [facility] Darell Cells 1-5 /HPF [facility] Blood 04/19/2023 12:3 5 AM EDT 04/19/2023 12:45 AM EDT Narrative Resulting Agency Comment Spec In Lab Nilda Jeronimo OPERATIONS INTERN HEMATOLOGY ORDERAB LES [facility] [place] [address] * (ABNORMAL) Beta Hydroxybutyrate (04/19/2023 12:35 AM EDT) Pathologist [facility] Beta-hydroxybuturat e 0.37(H) 0.00 - 0.30 mmol/L [facility] Comment: This test has not been cleared by the [place] FDA. Performance characteristics of this test were determined by [facility] in accordance with CLIA requirements. This laboratory is qualified under CLIA to perform high-complexity testing. Blood Venous Draw / Unknown 04/19/2023 12:35 AM EDT 04/19/2023 12:45 AM EDT Narrative Resulting Agency Comment Spec In Lab Nilda Jeronimo OPERATIONS INTERN CHEMISTRY ORDERABL ES [facility] [place] [address] * (ABNORMAL) BMP w/fasting Glucose (04/19/2023 12:35 AM EDT) Glucose Fasting 125(H) 65 - 99 mg/dL [facility] Comment: ?Fasting* Glucose Interpretive Criteria Normal ?65-99 mg/dL Impaired Fasting glucose ?100-125 mg/dL Consistent with Diabetes Mellitus ? >or= 126 mg/dL *Fasting is defined as no caloric intake for at least 8 hours In the absence of unequivocal hyperglycemia a plasma glucose value of >or= 126 mg/dL should be repeated on a subsequent day. Diagnosis and Classification of Diabetes Mellitus, Position Statement from the [place] [employer]. ??Diabetes Care, Volume 33, Supplement 1, Feb 2009 Blood Urea Nitrogen 17 10 - 20 mg/dL [facility] Creatinine 1.09 0.80 - 1.50 mg/dL [facility] Sodium 142 135 - 145 mmol/L [facility] Potassium 3.8 3.5 - 5.0 mmol/L [facility] Comment: Please note: ??Patients with WBC >100,000 may have falsely elevated Potassium levels. ??For accurate Potassium quantification in these patients send serum separator tube (gold top) for subsequent determinations. ??Contact the Clinical Chemistry Laboratory if there are any questions. Chloride 103 98 - 107 mmol/L [facility] Carbon Dioxide 20(L) 22 - 31 mmol/L [facility] Anion Gap 19(H) 5 - 15 mmol/L [facility] Calcium 8.8 8.5 - 10.5 mg/dL [facility] Est Glomerular Filtration Rate 75 >=60 mL/min/1. 73 m?? [facility] Comment: This patient's estimated GFR [...] and symptoms in addition to eGFR. Blood 04/19/2023 12:3 5 AM EDT 04/19/2023 12:45 AM EDT Narrative Resulting Agency Comment Spec In Lab Nilda Kingsley Jeronimo OPERATIONS INTERN CHEMISTRY ORDERABL ES [facility] [place] [address] * (ABNORMAL) Differential, Automated (04/19/2023 12:35 AM EDT) Neutrophil % 56.5 % [facility] Neutrophil Absolute 6.77(H) 1.70 - 6.10 x10(3)/mc L [facility] Lymph % 8.8 % [facility] Lymphocytes Abs 1.0 0.9 - 3.2 x10(3)/mc L [facility] Monocyte % 9.5 % [facility] Monocyte Abs 1.1(H) 0.3 - 0.9 x10(3)/mc L [facility] Eos % 24.5 % [facility] Eosinophils Abs 2.9(H) 0.0 - 0.4 x10(3)/mc L [facility] Basophil % 0.3 % [facility] Baso Absolute 0.0 0.0 - 0.1 x10(3)/mc L [facility] Immature Gran % 0.40 % [facility] Comment: Immature granulocytes(IG's)percentage and absolute count will include metamyelocytes, myelocytes, and promyelocytes. Blood smears from CBCs yielding IG's will be scanned manually for concordance. If this scan disagrees with the automated IG or if promyelocytes are noted, a manual differential will be performed. Immature Gran Absolute 0.05(H) 0.00 - 0.04 x10(3)/mc L [facility] Blood 04/19/2023 12:3 5 AM EDT 04/19/2023 12:45 AM EDT Narrative Resulting Agency Comment Spec In Lab Nilda Jeronimo OPERATIONS INTERN HEMATOLOGY ORDERAB LES [facility] [place] [address] * (ABNORMAL) Hemogram (04/19/2023 12:35 AM EDT) White Blood Cell 12.0(H) 4.0 - 9.5 x10(3)/mc L [facility] Red Blood Cell 4.49(L) 4.58 - 5.54 x10(6)/mc L [facility] Hemoglobin 14.3 13.7 - 16.5 g/dL [facility] Hematocrit 41.7 40.5 - 48.5 % [facility] Mean Cell Volume 92.9 82.9 - 93.1 fL [facility] Mean Cell Hemoglobin 31.8 27.5 - 32.1 pg [facility] Mean Cell Hemoglobin Concentration 34.3 32.0 - 35.7 g/dL [facility] Platelet 184 145 - 357 x10(3)/mc L [facility] RDW Standard Deviation 47.1(H) 36.0 - 45.0 fL [facility] RDW coefficient of variation 13.8 11.4 - 13.8 % [facility] Mean Platelet Volume 10.5 7.6 - 12.9 fL [facility] NRBC% auto 0.0 % [facility] NRBC Absolute 0.000 0.000 - 0.000 x10(3)/mc L [facility] Blood 04/19/2023 12:3 5 AM EDT 04/19/2023 12:45 AM EDT Narrative Resulting Agency Comment Spec In Lab Nilda Jeronimo OPERATIONS INTERN HEMATOLOGY ORDERAB LES Performing Organization Address [facility] Co de Phone Number [facility] [place] [address] * Prothrombin Time (04/19/2023 12:35 AM EDT) Prothrombin Time 12.2 9.4 - 12.5 sec [facility] International Normalization Ratio 1.1 [facility] Comment: An INR <2.0 indicates adequate procoagulant activity for hemostasis in most patients without underlying bleeding disorders, though the INR may not adequately reflect hemostatic capacity in patients with liver disease and synthetic impairment. The recommended target INR range for therapeutic anticoagulation is 2.0 ? 3.0 for most applications, though lower and higher ranges may be appropriate depending on clinical circumstances. Blood 04/19/2023 12:3 5 AM EDT 04/19/2023 12:45 AM EDT Narrative Resulting Agency Comment Spec In Lab Nilda Jeronimo APRN HEMATOLOGY ORDERAB LES Performing Organization Address [facility] Co de Phone Number [facility] [place] [address] * Hepatic Function Panel (04/19/2023 12:35 AM EDT) Protein, Total 7.7 6.1 - 8.0 g/dL [facility] Albumin 3.9 3.2 - 5.2 g/dL [facility] Aspartate Aminotransferase 22 0 - 39 unit/L [facility] Alanine Aminotransferase 19 0 - 55 unit/L [facility] Alkaline Phosphatase 66 40 - 130 unit/L [facility] Bilirubin, Total 0.3 0.2 - 1.3 mg/dL [facility] Bilirubin, Direct 0.1 0.0 - 0.3 mg/dL [facility] Blood 04/19/2023 12:3 5 AM EDT 04/19/2023 12:45 AM EDT Narrative Resulting Agency Comment Spec In Lab Nilda Jeronimo OPERATIONS INTERN CHEMISTRY ORDERABL ES Performing Organization Address [facility] Co de Phone Number [facility] [place] [address] * Phosphorus (04/19/2023 12:35 AM EDT) Phosphorus 3.5 2.5 - 4.5 mg/dL [facility] Blood 04/19/2023 12:3 5 AM EDT 04/19/2023 12:45 AM EDT Narrative Resulting Agency Comment Spec In Lab Nilda Jeronimo OPERATIONS INTERN CHEMISTRY ORDERABL ES Performing Organization Address City/[facility]/ZIP Co de Phone Number [facility] [place] [address] * (ABNORMAL) Magnesium (04/19/2023 12:35 AM EDT) Pathologist [facility] Magnesium 0.66(L) 0.69 - 1.07 mmol/L [facility] Blood 04/19/2023 12:3 5 AM EDT 04/19/2023 12:45 AM EDT Narrative Resulting Agency Comment Spec In Lab Nilda Jeronimo OPERATIONS INTERN CHEMISTRY ORDERABL ES Performing Organization Address City/[facility] Co de Phone Number [facility] [place] [address] * TSH (04/19/2023 12:35 AM EDT) Pathologist [facility] Thyroid Stimulating Hormone 0.74 0.27 - 4.20 mcIU/mL [facility] Comment: result rechecked-KS Reference Interval (mcIU/mL): Females: ??First Trimester: 0.23-3.88 ??Second Trimester: 0.22-3.90 ??Third Trimester: 0.44-4.66 Blood 04/19/2023 12:3 5 AM EDT 04/19/2023 12:45 AM EDT Narrative Resulting Agency Comment Spec In Lab Tana Smith MD CHEMISTRY ORDERABLES Performing Organization Address City/[facility]/ZIP Co de Phone Number [facility] [place] [address] * Triglyceride (04/19/2023 12:35 AM EDT) Triglyceride 78 mg/dL [facility] Comment: Normal: ?<150 mg/dL Borderline High: 150-199 mg/dL High: ?200-499 mg/dL Very High: ? >jd=993 mg/dL Blood 04/19/2023 12:3 5 AM EDT 04/19/2023 12:45 AM EDT Narrative Resulting Agency Comment Spec In Lab Nidla Kingsley Phani OPERATIONS INTERN CHEMISTRY ORDERABL ES [facility] [place] [address] * HDL/Cholesterol Profile (04/19/2023 12:35 AM EDT) Cholesterol, Total 220 mg/dL [facility] Comment: Desirable: ? <200 mg/dL Borderline High: 200-239 mg/dL Higher: ?>uq=208 mg/dL HDL Cholesterol 86 mg/dL [facility] Comment: Females: High Risk: <50 mg/dL Males: High Risk: <40 mg/dL Cholesterol/HDL Ratio 2.6 ratio [facility] Lipid Interpretation See Note [facility] Comment: It is important to [...] ACC/AHA Guidelines (most recently Toni et al. [facility] 11/09/21): ?? For individuals with atherosclerotic cardiovascular disease (ASCVD)or LDL >zp=989 mg/dL, use a high-intensity statin (40-80 mg [...] Agency Comment Spec In Lab Nilda Jeronimo OPERATIONS INTERN CHEMISTRY ORDERABL ES [facility] [place] [address] * LDL Cholesterol, Direct (04/19/2023 12:35 AM EDT) LDL Cholesterol, Direct 129 mg/dL [facility] Comment: Desirable: ? <100 mg/dL Above Desirable: 100-129 mg/dL Borderline High: 130-159 mg/dL High: ?160-189 mg/dL Very High: ? >aw=531 mg/dL If not reaching LDL goals on maximally tolerated statin, consider exetimibe and/or a PCSK9 inhibitor: ?? Target for primary prevention: LDL<100 ?? Target for those with ASCVD or diabetes and 19-year risk >or=20%: LDL<70 ?? Target for those with very high risk ASCVD: LDL<55 (Very high risk being the presence of 2 or more of: recent acute coronary syndrome, past myocardial infarction, ischemic stroke, symptomatic perpheral artery disease). Lipid Interpretation See Note [facility] Comment: It is important to [...] ACC/AHA Guidelines (most recently Toni et al. [facility] 11/09/21): ?? For individuals with atherosclerotic cardiovascular disease (ASCVD)or LDL >ql=904 mg/dL, use a high-intensity statin (40-80 mg [...] Lab Nilda Jeronimo APRN CHEMISTRY ORDERABL ES Performing Organization Address [facility] de Phone Number [facility] [place] [address] * (ABNORMAL) Hemoglobin A1c (04/19/2023 12:35 AM EDT) Hemoglobin A1c 6.0(H) 4.3 - 5.6 % [facility] Comment: Reference Range: 4.3 - 5.6% 5.7 - 6.4% - Increased Risk of Developing Diabetes Mellitus >= 6.5% - Consistent with diagnosis of Diabetes Mellitus In the absence of hyperglycemia (i.e. plasma glucose > 200 mg/dL) or classic symptoms of hyperglycemia a repeat measurement of HbA1c should be performed on a separate sample to confirm the diagnosis. Diagnosis and Classification of Diabetes Mellitus, Diabetes Care 2013; 36: Suppl. 1, S67-65 Estimated Average Glucose 126 mg/dL [facility] Blood 04/19/2023 12:3 5 AM EDT 04/19/2023 12:45 AM EDT Narrative Resulting Agency Comment Spec In Lab Nilda Jeronimo APRN CHEMISTRY ORDERABL ES Performing Organization Address [facility] Co de Phone Number [facility] [place] [address] * POCT Glucose (04/19/2023 12:21 AM EDT) Glucose, POC 117 65 - 199 mg/dL [facility] Comment: Supplemental ranges: <140 mg/dL before meals <180 mg/dL all other times of the day Blood 04/19/2023 12:2 1 AM EDT 04/19/2023 12:21 AM EDT Tana Smith MD POINT OF CARE TEST O RDERABLES Performing Organization Address City/[facility] Co de Phone Number [facility] [place] [address] * POCT Glucose (04/18/2023 7:54 PM EDT) Glucose, POC 113 65 - 199 mg/dL [facility] Comment: Supplemental ranges: <140 mg/dL before meals <180 mg/dL all other times of the day Blood 04/18/2023 7:54 PM EDT 04/18/2023 7:54 PM EDT Tana Smith MD POINT OF CARE TEST O RDERABLES Performing Organization Address [facility] Co de Phone Number [facility] [place] [address] * POCT Glucose (04/18/2023 3:46 PM EDT) Glucose, POC 152 65 - 199 mg/dL [facility] Comment: Supplemental ranges: <140 mg/dL before meals <180 mg/dL all other times of the day Blood 04/18/2023 3:46 PM EDT 04/18/2023 3:46 PM EDT Tana Smith MD POINT OF CARE TEST O RDERABLES Performing Organization Address [facility] Co de Phone Number [facility] [place] [address] * XR Chest One View (04/18/2023 12:17 PM EDT) Anatomical Region Laterality Modality Chest N/A Digital Radiogra phy Impressions 04/18/2023 3:06 PM EDT Endotracheal tube is 1.1 cm above the nichole. Recommend retraction 2-3 cm for optimal positioning. Thank you for letting us participate in the care of this patient. ??If you are a health care provider and have any questions regarding this report, please contact the number below. ??For patients who have questions please contact the health manager managed care that requested your imaging first. ? Electronically signed by: Brien Avery MD, [facility] ??([phone]), at 04/18/2023 3:06 PM Narrative 04/18/2023 3:06 PM EDT EXAMINATION: XR CHEST ONE VIEW CLINICAL HISTORY: confirm ETT TECHNIQUE: 1 view of the chest COMPARISON: 04/18/2023 FINDINGS: Support devices: Endotracheal tube is 1.1 cm above the nichole. New enteric tube courses into the stomach although distally is excluded. The cardiac silhouette is stable. Low lung volumes and bibasilar atelectasis. No pneumothorax. Procedure Note Brien Avery MD - 04/18/2023 EXAMINATION: XR CHEST ONE VIEW CLINICAL HISTORY: confirm ETT TECHNIQUE: 1 view of the chest COMPARISON: 04/18/2023 FINDINGS: Support devices: Endotracheal tube is 1.1 cm above the nichole. New enterictube courses into the stomach although distally is excluded. The cardiac silhouette is stable. Low lung volumes and bibasilaratelectasis. No pneumothorax. IMPRESSION Endotracheal tube is 1.1 cm above the nichole. Recommend retraction 2-3 cmfor optimal positioning. Thank you for letting us participate in the care of this patient. If youare a health care provider and have any questions regarding this report,please contact the number below. For patients who have questions please contactthe health manager managed care that requested your imaging first. Tana Smith MD IMG DX ORDERABLES * XR Abdomen 1 view (Generic) (04/18/2023 12:17 PM EDT) Anatomical Region Laterality Modality Abdomen N/A Digital Radiogra phy Impressions 04/18/2023 2:03 PM EDT 1. ??Weighted enteric catheter projects over the expected position of the stomach. 2. ??Left basilar nonspecific opacity may represent atelectasis, infectious or inflammatory etiology in the correct clinical context. I have personally reviewed the image(s) and the resident's interpretation and agree with the findings, Cooper Jones MD at 04/18/2023 2:03 PM Thank you for letting us participate in the care of this patient. ??If you are a health care provider and have any questions regarding this report, please contact the number below. ??For patients who have questions please contact the health manager managed care that requested your imaging first. ? Electronically signed by: Cooper Jones MD, [facility] ([phone]), at 04/18/2023 2:03 PM Narrative 04/18/2023 2:03 PM EDT EXAMINATION: XR ABDOMEN 1 VIEW (GENERIC) CLINICAL HISTORY: NG placement; nursing will page TECHNIQUE: AP portable upright view of the abdomen. Limited view of the abdomen for assessment of enteric catheter position. COMPARISON: Chest radiograph 04/18/2023 FINDINGS: Weighted enteric catheter with the distal tip projecting over the left upper quadrant in the stomach. Left basilar opacity better evaluated on chest radiograph 04/18/2023. Paucity of bowel gas and visualized portion of the abdomen. No gas-filled dilated loops of bowel. Contrast is seen within the bilateral renal collecting systems. Procedure Note Cooper Jones MD - 04/18/2023 EXAMINATION: XR ABDOMEN 1 VIEW (GENERIC) CLINICAL HISTORY: NG placement; nursing will page TECHNIQUE: AP portable upright view of the abdomen. Limited view of the abdomen for assessment of enteric catheter position. COMPARISON: Chest radiograph 04/18/2023 FINDINGS: Weighted enteric catheter with the distal tip projecting over the leftupper quadrant in the stomach. Left basilar opacity better evaluated on chest radiograph 04/18/2023. Paucity of bowel gas and visualized portion of the abdomen. No gas-filled dilated loops of bowel. Contrast is seen withinthe bilateral renal collecting systems. IMPRESSION 1. Weighted enteric catheter projects over the expected position of the stomach. 2. Left basilar nonspecific opacity may represent atelectasis, infectiousor inflammatory etiology in the correct clinical context. I have personally reviewed the image(s) and the resident's interpretationand agree with the findings, Cooper Jones MD at 04/18/2023 2:03 PM Thank you for letting us participate in the care of this patient. If youare a health care provider and have any questions regarding this report,please contact the number below. For patients who have questions please contactthe health manager managed care that requested your imaging first. Electronically signed by: Cooper Jones MD, [facility]([phone]), at 04/18/2023 2:03 PM Tana Smith MD IMG DX ORDERABLES * POCT Glucose (04/18/2023 11:56 AM EDT) Glucose, POC 172 65 - 199 mg/dL [facility] Comment: Supplemental ranges: <140 mg/dL before meals <180 mg/dL all other times of the day Blood 04/18/2023 11:5 6 AM EDT 04/18/2023 11:56 AM EDT Tana Smith MD POINT OF CARE TEST O RDERABLES [facility] [place] [address] * (ABNORMAL) POCT Glucose (04/18/2023 11:04 AM EDT) Glucose, POC 215(H) 65 - 199 mg/dL [facility] Comment: Supplemental ranges: <140 mg/dL before meals <180 mg/dL all other times of the day Blood 04/18/2023 11:0 4 AM EDT 04/18/2023 11:04 AM EDT Tana Smith MD POINT OF CARE TEST O RDERABLES Performing Organization Address City/[facility]/ZIP Co de Phone Number [facility] [place] [address] * Troponin (04/18/2023 10:15 AM EDT) Troponin-T, High Sensitivity 17 <=22 ng/L [facility] Comment: This patient's troponin T concentration was determined using the Scott 5th Generation troponin T assay. The 99th percentile for Troponin T for this test is 14 ng/L for females, and 22 ng/L for males. According to the fourth universal definition of myocardial infarction, the term acute myocardial infarction should be used when there is acute myocardial injury with clinical evidence of acute myocardial ischemia and with detection of a rise and/or fall of cardiac troponin values with at least one value above the 99th percentile and at least one of the following: - Symptoms of myocardial ischemia; - New ischemic ECG changes; - Development of pathological Q waves; - Imaging evidence of new loss of viable myocardium or new regional wall motion abnormality in a pattern consistent with an ischemic etiology; - Identification of a coronary thrombus by angiography or autopsy (not for type 2 or 3 MIs) Serial measurement of troponin and the change in troponin concentration over time (delta) is crucial for the diagnosis of acute myocardial infarction. Guidance on the interpretation of the new 5th Generation Troponin T values and the delta troponin value can be found in the [facility] Laboratory Test Catalog Troponin - [facility] Laboratory Test Catalog Reference: Fourth [place] Definition of Myocardial Infarction. Journal of the [place] [employer] 2018;72:3765-8067 Blood 04/18/2023 10:1 5 AM EDT 04/18/2023 10:33 AM EDT Narrative Resulting Agency Comment Spec In Lab Nilda Jeronimo APRN CHEMISTRY ORDERABL ES Performing Organization Address City/[facility]/ZIP Co de Phone Number [facility] [place] [address] * CT Head wo Contrast (Generic) (04/18/2023 9:45 AM EDT) Anatomical Region Laterality Modality Head Computed Tomogra phy Impressions 04/18/2023 10:46 AM EDT 1. ??Expected postoperative changes following placement of a right frontal extraventricular drain with stable hydrocephalus. 2. ??No additional significant change. Thank you for letting us participate in the care of this patient. ??If you are a health care provider and have any questions regarding this report, please contact the number below. ??For patients who have questions please contact the health manager managed care that requested your imaging first. ? Narrative 04/18/2023 10:46 AM EDT EXAMINATION: CT HEAD WO CONTRAST (GENERIC) CLINICAL HISTORY: Stroke, follow up TECHNIQUE: CT head performed without intravenous contrast administration. COMPARISON: CT head 04/18/2023 FINDINGS: Similar 3.0 cm parenchymal hemorrhage in the anteromedial aspect of the right cerebral hemisphere. Direct intraventricular extension into the fourth ventricle including into both foramina of Luschka and the foramen of Magendie is similar as is intraventricular hemorrhage extending through the cerebral aqueduct and to the third ventricle and both lateral ventricles. Tiny amount of subarachnoid hemorrhage noted in the interpeduncular cistern, likely from redistribution of intraventricular blood. Interval placement of a right frontal extraventricular drain with tip along the floor of the right lateral ventricle close to the foramen of [place]ear[place]. Mild hydrocephalus is unchanged. No new hemorrhage and no evidence of large acute infarction. The basal cisterns remain patent as is the foramen magnum. Aside from the right frontal darell hole craniotomy, the osseous structures are unchanged. Procedure Note Troy Mota MD - 04/18/2023 EXAMINATION: CT HEAD WO CONTRAST (GENERIC) CLINICAL HISTORY: Stroke, follow up TECHNIQUE: CT head performed without intravenous contrast administration. COMPARISON: CT head 04/18/2023 FINDINGS: Similar 3.0 cm parenchymal hemorrhage in the anteromedial aspect of theright cerebral hemisphere. Direct intraventricular extension into the fourthventricle including into both foramina of Luschka and the foramen of Magendie issimilar as is intraventricular hemorrhage extending through the cerebral aqueductand to the third ventricle and both lateral ventricles. Tiny amount ofsubarachnoid hemorrhage noted in the interpeduncular cistern, likely fromredistribution of intraventricular blood. Interval placement of a right frontal extraventricular drain with tipalong the floor of the right lateral ventricle close to the foramen of Kearns.Mild hydrocephalus is unchanged. No new hemorrhage and no evidence of largeacute infarction. The basal cisterns remain patent as is the foramen magnum. Aside from the right frontal darell hole craniotomy, the osseous structuresare unchanged. IMPRESSION 1. Expected postoperative changes following placement of a rightfrontal extraventricular drain with stable hydrocephalus. 2. No additional significant change. Thank you for letting us participate in the care of this patient. If youare a health care provider and have any questions regarding this report,please contact the number below. For patients who have questions please contactthe health manager managed care that requested your imaging first. Tana Smith MD IMG CT ORDERABLES * CT Angiogram [place] (04/18/2023 9:45 AM EDT) Anatomical Region Laterality Modality Neck, Head Computed Tomogra phy Impressions 04/18/2023 10:55 AM EDT No evidence of aneurysm or vascular malformation. Thank you for letting us participate in the care of this patient. ??If you are a health care provider and have any questions regarding this report, please contact the number below. ??For patients who have questions please contact the health manager managed care that requested your imaging first. ? Narrative 04/18/2023 10:55 AM EDT EXAMINATION: CT ANGIOGRAM [place] CLINICAL HISTORY: Stroke, follow up TECHNIQUE: CTA of the head performed after the intravenous administration of 65 mL of Omnipaque 350 contrast. MIP and 3-D volumetric reconstructions were created. COMPARISON: None FINDINGS: No abnormal enhancement within the right cerebellar parenchymal hemorrhage. Punctate enhancement in the distal aspect of each foramen of Luschka in a somewhat symmetrical fashion is presumably related to choroid plexus enhancement. No aneurysm, vascular malformation, significant arterial stenosis, or arterial occlusion. Procedure Note Troy Mota MD - 04/18/2023 EXAMINATION: CT ANGIOGRAM [place] CLINICAL HISTORY: Stroke, follow up TECHNIQUE: CTA of the head performed after the intravenous administration of 65 mLof Omnipaque 350 contrast. MIP and 3-D volumetric reconstructions werecreated. COMPARISON: None FINDINGS: No abnormal enhancement within the right cerebellar parenchymalhemorrhage. Punctate enhancement in the distal aspect of each foramen of Luschka makenna somewhat symmetrical fashion is presumably related to choroid plexus enhancement. No aneurysm, vascular malformation, significant arterial stenosis, orarterial occlusion. IMPRESSION No evidence of aneurysm or vascular malformation. Thank you for letting us participate in the care of this patient. If youare a health care provider and have any questions regarding this report,please contact the number below. For patients who have questions please contactthe health manager managed care that requested your imaging first. Nilda Jeronimo APRN [facility] ORDERABLES * POCT Glucose (04/18/2023 8:05 AM EDT) Glucose, POC 179 65 - 199 mg/dL [facility] Comment: Supplemental ranges: <140 mg/dL before meals <180 mg/dL all other times of the day Blood 04/18/2023 8:05 AM EDT 04/18/2023 8:05 AM EDT Tana Smith MD POINT OF CARE TEST O RDERABLES [facility] [place] [address] * ABORH Recheck Status (04/18/2023 6:55 AM EDT) AB[facility] Recheck Order Order Placed [facility] ABORH Type Recheck Completed [facility] Blood 04/18/2023 6:55 AM EDT 04/18/2023 7:43 AM EDT Narrative Resulting Agency Comment Spec In Lab Nilda Jeronimo APRN BLOOD BANK LAB ORD ERABLES Performing Organization Address City/[facility]/ZIP Co de Phone Number [facility] [place] [address] * Troponin (04/18/2023 6:55 AM EDT) Pathologist [facility] Troponin-T, High Sensitivity 22 <=22 ng/L [facility] Comment: This patient's troponin T concentration was determined using the Scott 5th Generation troponin T assay. The 99th percentile for Troponin T for this test is 14 ng/L for females, and 22 ng/L for males. According to the fourth universal definition of myocardial infarction, the term acute myocardial infarction should be used when there is acute myocardial injury with clinical evidence of acute myocardial ischemia and with detection of a rise and/or fall of cardiac troponin values with at least one value above the 99th percentile and at least one of the following: - Symptoms of myocardial ischemia; - New ischemic ECG changes; - Development of pathological Q waves; - Imaging evidence of new loss of viable myocardium or new regional wall motion abnormality in a pattern consistent with an ischemic etiology; - Identification of a coronary thrombus by angiography or autopsy (not for type 2 or 3 MIs) Serial measurement of troponin and the change in troponin concentration over time (delta) is crucial for the diagnosis of acute myocardial infarction. Guidance on the interpretation of the new 5th Generation Troponin T values and the delta troponin value can be found in the [facility] Test Catalog Troponin - [facility] Test Catalog Reference: Fourth [place] Definition of Myocardial Infarction. Journal of the [place] [employer] 2018;72:7326-8950 Blood 04/18/2023 6:55 AM EDT 04/18/2023 7:22 AM EDT Narrative Resulting Agency Comment Spec In Lab Nilda Jeronimo APRN CHEMISTRY ORDERABL ES Performing Organization Address City/[facility]/[place] [address] * Type and screen ([facility]) (04/18/2023 6:55 AM EDT) [facility] ABORH Type A POSITIVE [facility] Patient BB History Not Found [facility] Expires at [id number] on: 04-21-2023 [facility] Ab Screen Interp Negative [facility] Blood 04/18/2023 6:55 AM EDT 04/18/2023 6:55 AM EDT Narrative [facility] - 04/18/2023 6:55 AM EDT This Type and Screen result is only valid at the [facility] Resulting Agency Comment Spec In Lab Nilda Jeronimo APRN BLOOD BANK LAB ORD ERABLES Performing Organization Address City/[facility]/ZIP Co de Phone Number [facility] [place] [address] * (ABNORMAL) Differential, Automated (04/18/2023 6:50 AM EDT) Pathologist [facility] Neutrophil % 87.6 % [facility] Neutrophil Absolute 9.33(H) 1.70 - 6.10 x10(3)/mc L [facility] Lymph % 6.4 % [facility] Lymphocytes Abs 0.7(L) 0.9 - 3.2 x10(3)/mc L [facility] Monocyte % 5.4 % [facility] Monocyte Abs 0.6 0.3 - 0.9 x10(3)/mc L [facility] Eos % 0.1 % [facility] Eosinophils Abs 0.0 0.0 - 0.4 x10(3)/mc L [facility] Basophil % 0.2 % [facility] Baso Absolute 0.0 0.0 - 0.1 x10(3)/mc L [facility] Immature Gran % 0.30 % [facility] Comment: Immature granulocytes(IG's)percentage and absolute count will include metamyelocytes, myelocytes, and promyelocytes. Blood smears from CBCs yielding IG's will be scanned manually for concordance. If this scan disagrees with the automated IG or if promyelocytes are noted, a manual differential will be performed. Immature Gran Absolute 0.03 0.00 - 0.04 x10(3)/ L [facility] Blood 04/18/2023 6:50 AM EDT 04/18/2023 7:11 AM EDT Narrative Resulting Agency Comment Spec In Lab Brian TAFOYA HEMATOLOGY ORDERABLE S Performing Organization Address City/State/[facility] Co de Phone Number [facility] [place] [address] * (ABNORMAL) Hemogram (04/18/2023 6:50 AM EDT) White Blood Cell 10.6(H) 4.0 - 9.5 x10(3)/mc L [facility] Red Blood Cell 4.78 4.58 - 5.54 x10(6)/mc L [facility] Hemoglobin 14.7 13.7 - 16.5 g/dL [facility] Hematocrit 42.9 40.5 - 48.5 % [facility] Mean Cell Volume 89.7 82.9 - 93.1 fL [facility] Mean Cell Hemoglobin 30.8 27.5 - 32.1 pg [facility] Mean Cell Hemoglobin Concentration 34.3 32.0 - 35.7 g/dL [facility] Platelet 214 145 - 357 x10(3)/mc L [facility] RDW Standard Deviation 44.2 36.0 - 45.0 fL [facility] RDW coefficient of variation 13.4 11.4 - 13.8 % [facility] Mean Platelet Volume 10.8 7.6 - 12.9 fL [facility] NRBC% auto 0.0 % [facility] NRBC Absolute 0.000 0.000 - 0.000 x10(3)/mc L [facility] Blood 04/18/2023 6:50 AM EDT 04/18/2023 7:11 AM EDT Narrative Resulting Agency Comment Spec In Lab Brian TAFOYA HEMATOLOGY ORDERABLE S [facility] [place] [place] [address] * (ABNORMAL) Comprehensive metabolic panel (non-fasting) (04/18/2023 6:50 AM EDT) Glucose 218(H) 65 - 199 mg/dL [facility] Comment:Diabetes: >=200 mg/d L plus symptoms Blood Urea Nitrogen 16 10 - 20 mg/dL [facility] Creatinine 1.29 0.80 - 1.50 mg/dL [facility] Sodium 136 135 - 145 mmol/L [facility] Potassium 3.2(L) 3.5 - 5.0 mmol/L [facility] Comment: Please note: ??Patients with WBC >100,000 may have falsely elevated Potassium levels. ??For accurate Potassium quantification in these patients send serum separator tube (gold top) for subsequent determinations. ??Contact the Clinical Chemistry Laboratory if there are any questions. Chloride 96(L) 98 - 107 mmol/L [facility] Carbon Dioxide 28 22 - 31 mmol/L [facility] Anion Gap 12 5 - 15 mmol/L [facility] Calcium 9.4 8.5 - 10.5 mg/dL [facility] Protein, Total 8.7(H) 6.1 - 8.0 g/dL [facility] Albumin 4.3 3.2 - 5.2 g/dL [facility] Aspartate Aminotransferase 32 0 - 39 unit/L [facility] Alanine Aminotransferase 26 0 - 55 unit/L [facility] Alkaline Phosphatase 74 40 - 130 unit/L [facility] Bilirubin, Total 0.5 0.2 - 1.3 mg/dL [facility] Est Glomerular Filtration Rate 62 >=60 mL/min/1. 73 m?? [facility] Comment: This patient's estimated GFR [...] and symptoms in addition to eGFR. Blood 04/18/2023 6:50 AM EDT 04/18/2023 7:11 AM EDT Narrative Resulting Agency Comment Spec In Lab Tana Smith MD CHEMISTRY ORDERABLES Performing Organization Address City/[facility] Co de Phone Number [facility] [place] [place] [address] * (ABNORMAL) APTT (04/18/2023 6:50 AM EDT) Partial Thromboplastin Time 38(H) 25 - 37 sec [facility] Comment: The PTT is NOT appropriate for heparin monitoring. Use the Anti-Xa level for heparin monitoring (HEP UFH) or LMWH monitoring (HEP LMW). A PTT less than 37 seconds generally indicates adequate hemostasis. Blood 04/18/2023 6:50 AM EDT 04/18/2023 7:11 AM EDT Narrative Resulting Agency Comment Spec In Lab Tana Smith MD HEMATOLOGY ORDERABLE S Performing Organization Address City/[facility]/ZIP Co de Phone Number [facility] [place] [address] * Prothrombin Time (04/18/2023 6:50 AM EDT) Prothrombin Time 12.4 9.4 - 12.5 sec [facility] International Normalization Ratio 1.1 [facility] Comment: An INR <2.0 indicates adequate procoagulant activity for hemostasis in most patients without underlying bleeding disorders, though the INR may not adequately reflect hemostatic capacity in patients with liver disease and synthetic impairment. The recommended target INR range for therapeutic anticoagulation is 2.0 ? 3.0 for most applications, though lower and higher ranges may be appropriate depending on clinical circumstances. 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, unspecified portion of aorta Deep vein thrombosis (DVT) of brachial vein of right upper extremity, unspecified chronicity Agitation Other and unspecified special symptom or syndrome, not elsewhere classified Hyperkalemia Hyperpotassemia Cardiorenal syndrome with renal failure 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 and with chronic kidney disease stage I through stage IV, or unspecified SVT (supraventricular tachycardia) Other specified cardiac dysrhythmias Dissection of aorta, unspecified portion of aorta documented in this encounter Admitting Diagnoses Diagnosis ICH (intracerebral hemorrhage) Intracerebral hemorrhage documented in this encounter Administered Medications Inactive Administered Medications - up to 3 most recent administrations Medication Order MAR Action Action Date Dose Rate Site acetaminophen (Tylenol) (32.02 mg/mL) oral liquid 975 mg 975 mg, Per NG tube, EVERY 6 HOURS PRN, Starting on Mon04/19/23 at 2312, Until Mon05/02/23 at 1107, Fever, Pain, Maximum dose of acetaminophen is 4,000 mg from all sources in 24 hours. When ordered for pain, acetaminophen should be given even when other ordered pain medications are indicated., Routine Given 04/26/2023 12:32 AM EDT 975 mg Given 04/19/2023 11:16 PM EDT 975 mg acetaminophen (Tylenol) tablet 975 mg 975 mg, Per NG tube, EVERY 6 HOURS PRN, Starting on Tu05/02/23 at 1107, Until 05/20/23 at 1924, Pain, Fever, Maximum dose of acetaminophen is 4,000 mg from all sources in 24 hours. When ordered for pain, acetaminophen should be given even when other ordered pain medications are indicated., Routine Given 05/20/2023 5:49 AM EDT 975 mg Given 05/19/2023 11:53 PM EDT 975 mg Given 05/19/2023 9:59 AM EDT 975 mg acetaminophen (Tylenol) tablet 975 mg 975 mg, Oral, EVERY 6 HOURS PRN, Starting on Mon05/21/23 at 1037, Until Mon06/02/23 at 1453, Pain, Fever, Maximum dose of acetaminophen is 4,000 mg from all sources in 24 hours. When ordered for pain, acetaminophen should be given even when other ordered pain medications are indicated., Routine Given 05/29/2023 5:38 PM EDT 975 mg Given 05/21/2023 12:02 PM EDT 975 mg alteplase (Cathflo) injection 2 mg 2 mg, INTRA-CATHETER, ONCE, 1 dose, On Mon05/01/23 at 1015, Instill into occluded lumen as directed., Routine Given 05/01/2023 9:24 AM EDT 2 mg amLODIPine (Norvasc) tablet 10 mg 10 mg, Per NG tube, DAILY, First dose (after last modification) on Mon04/19/23 at 1115, Until Discontinued, Routine Given 04/24/2023 8:12 AM EDT 10 mg Given 04/22/2023 8:32 AM EDT 10 mg Given 04/21/2023 9:31 AM EDT 10 mg amLODIPine (Norvasc) tablet 10 mg 10 mg, Per NG tube, DAILY, First dose on Mon05/03/23 at 0900, Until Discontinued, Routine Given 05/03/2023 8:40 AM EDT 10 mg amLODIPine (Norvasc) tablet 10 mg 10 mg, Per NG tube, DAILY, First dose on Mon05/11/23 at 1700, Until Discontinued, Routine Given 05/11/2023 4:09 PM EDT 10 mg amLODIPine (Norvasc) tablet 10 mg 10 mg, Oral, DAILY, First dose on Mon05/26/23 at 1800, Until Discontinued, Routine Given 06/02/2023 9:18 AM EDT 10 mg Given 06/01/2023 9:19 AM EDT 10 mg Given 05/31/2023 9:12 AM EDT 10 mg aspirin chewable tablet 81 mg 81 mg, Oral, DAILY, First dose on Mon05/03/23 at 0900, Until Discontinued, Routine Given 05/04/2023 8:13 AM EDT 81 mg Given 05/03/2023 8:40 AM EDT 81 mg aspirin chewable tablet 81 mg 81 mg, Per NG tube, DAILY, First dose (after last modification) on Mon05/05/23 at 0900, Until Discontinued, Routine Given 05/20/2023 9:15 AM EDT 81 mg Given 05/19/2023 8:08 AM EDT 81 mg Given 05/18/2023 8:41 AM EDT 81 mg aspirin chewable tablet 81 mg 81 mg, Oral, DAILY, First dose on Mon05/21/23 at 1130, Until Discontinued, Routine Given 06/02/2023 9:18 AM EDT 81 mg Given 06/01/2023 9:18 AM EDT 81 mg Given 05/31/2023 9:12 AM EDT 81 mg aspirin suppository 300 mg 300 mg, Rectal, DAILY, First dose on Mon05/21/23 at 1130, Until Discontinued, Routine bisacodyL (Dulcolax) suppository 10 mg 10 mg, Rectal, DAILY PRN, Starting on Mon04/18/23 at 0645, Until Mon05/02/23 at 1106, Constipation, Administer if needed per patient's routine or if no bowel movement within 48 hours to achieve: (1) One bowel movement at least every 48 hours, AND (2) Without straining. If multiple PRN bowel medications ordered, start with magnesium hydroxide, then bisacodyL. Multiple medications may be given concomitantly for constipation. , Routine Given 04/27/2023 6:39 AM EDT 10 mg bisacodyL (Dulcolax) suppository 10 mg 10 mg, Rectal, DAILY PRN, Starting on Mon05/21/23 at 1024, Until Mon06/02/23 at 1453, Constipation, Give if no BM within last 24 hr and rectal fullness is reported or assessed. Give concomitantly with any scheduled bowel medications ordered. , Routine bisacodyL (Dulcolax) suppository 10 mg 10 mg, Rectal, DAILY, First dose on Mon05/29/23 at 1045, Until Discontinued, Routine bisacodyl EC (Dulcolax) tablet 10 mg 10 mg, Oral, 2 TIMES DAILY PRN, Starting on [place] 04/27/23 at 1030, Until Mon04/28/23 at 0738, Constipation, Give if no BM after 24 hr after prior interventions. BM expected in 6-8 hours. If BM desired sooner, use next ordered agent. Give concomitantly with any scheduled bowel medications ordered., Routine Given 04/27/2023 11:06 AM EDT 10 mg bisacodyl EC (Dulcolax) tablet 10 mg 10 mg, Oral, 2 TIMES DAILY PRN, Starting on Mon05/21/23 at 1024, Until Mon06/02/23 at 1453, Constipation, Give if no BM after 24 hr after prior interventions. BM expected in 6-8 hours. If BM desired sooner, use next ordered agent. Give concomitantly with any scheduled bowel medications ordered., Routine Given 05/28/2023 8:55 AM EDT 10 mg Given 05/26/2023 6:48 AM EDT 10 mg bisacodyl EC (Dulcolax) tablet 10 mg 10 mg, Oral, 2 TIMES DAILY, First dose on Mon05/29/23 at 1045, Until Discontinued, DO NOT CRUSH OR OPEN, Routine Given 05/29/2023 10:53 AM EDT 10 mg bumetanide (Bumex) (0.25 mg/mL) injection 1 mg 1 mg, Intravenous, 2 TIMES DAILY, First dose on Mon04/27/23 at 1915, Until Discontinued Given 04/27/2023 6:54 PM EDT 1 mg camphor-methyl salicyl-menthoL (Bengay Ultra Strength) 4-30-10 % cream Topical (Top), 2 TIMES DAILY, First dose on Mon04/19/23 at 2000, Until Discontinued, Application Site: hips Given 05/24/2023 9:14 PM EDT Given 05/23/2023 8:13 PM EDT Given 05/23/2023 8:49 AM EDT camphor-methyl salicyl-menthoL (Bengay Ultra Strength) 4-30-10 % cream Topical (Top), 2 TIMES DAILY PRN, hip pain, Starting on Mon05/25/23 at 1430, Until Mon06/02/23 at 1453, Application Site: hips carboxymethylcellulose (Refresh Plus) 0.5 % ophthalmic drops 1 drop 1 drop, Both Eyes, 3 TIMES DAILY PRN, Starting on Mon05/14/23 at 0930, Until Mon06/02/23 at 1453, Dry Eyes, Routine Given 05/14/2023 12:03 PM EDT 1 drop carvediloL (Coreg) tablet 12.5 mg 12.5 mg, Per NG tube, 2 TIMES DAILY, First dose (after last modification) on Mon04/25/23 at 2100, Until Discontinued, Routine Given 04/26/2023 8:30 AM EDT 12.5 mg Given 04/25/2023 9:41 PM EDT 12.5 mg carvediloL (Coreg) tablet 12.5 mg 12.5 mg, Per NG tube, EVERY 12 HOURS, First dose on Mon05/02/23 at 1230, Until Discontinued, Routine Given 05/02/2023 11:42 PM EDT 12.5 mg Given 05/02/2023 12:05 PM EDT 12.5 mg carvediloL (Coreg) tablet 18.75 mg 18.75 mg, Per NG tube, 2 TIMES DAILY, First dose (after last modification) on Mon04/26/23 at 2100, Until Discontinued, Routine Given 04/26/2023 8:40 PM EDT 18.75 mg carvediloL (Coreg) tablet 25 mg 25 mg, Per NG tube, EVERY 12 HOURS, First dose (after last modification) on Mon04/27/23 at 0700, Until Discontinued, Hold and notify team if SBP < 90mmHg , Routine Given 04/28/2023 8:33 AM EDT 25 mg Given 04/27/2023 9:55 PM EDT 25 mg Given 04/27/2023 8:05 AM EDT 25 mg carvediloL (Coreg) tablet 25 mg 25 mg, Per NG tube, EVERY 12 HOURS, First dose (after last modification) on Mon05/03/23 at 1230, Until Discontinued, Routine Given 05/03/2023 12:08 PM EDT 25 mg carvediloL (Coreg) tablet 25 mg 25 mg, Per NG tube, 2 TIMES DAILY, First dose on Mon05/08/23 at 1015, Until Discontinued, Hold for HR less than or equal to 60bpm and/or SBP less than or equal to 100mmHg., Routine Given 05/08/2023 9:51 AM EDT 25 mg carvediloL (Coreg) tablet 25 mg 25 mg, Per NG tube, ONCE, 1 dose, On Mon05/08/23 at 1815, Routine Given 05/08/2023 5:48 PM EDT 25 mg carvediloL (Coreg) tablet 50 mg 50 mg, Per NG tube, 2 TIMES DAILY, First dose (after last modification) on Mon05/09/23 at 0300, Until Discontinued, Hold for HR less than or equal to 60bpm and/or SBP less than or equal to 100mmHg. Please inform [facility] provider if holding meds, Routine Given 05/15/2023 2:04 AM EDT 50 mg Given 05/14/2023 3:37 AM EDT 50 mg Given 05/13/2023 2:23 PM EDT 50 mg carvediloL (Coreg) tablet 6.25 mg 6.25 mg, Per NG tube, 2 TIMES DAILY, First dose on Mon04/23/23 at 1500, Until Discontinued, Routine Given 04/25/2023 8:01 AM EDT 6.25 mg Given 04/24/2023 8:12 PM EDT 6.25 mg Given 04/24/2023 8:14 AM EDT 6.25 mg carvediloL (Coreg) tablet 6.25 mg 6.25 mg, Per NG tube, ONCE, 1 dose, On Mon04/25/23 at 1200, Routine Given 04/25/2023 11:31 AM EDT 6.25 mg carvediloL (Coreg) tablet 6.25 mg 6.25 mg, Per NG tube, ONCE, 1 dose, On Mon04/26/23 at 2315, Routine Given 04/26/2023 10:30 PM EDT 6.25 mg carvediloL (Coreg) tablet 6.25 mg 6.25 mg, Per NG tube, EVERY 12 HOURS, First dose (after last modification) on Mon04/28/23 at 2130, Until Discontinued, Hold and notify team if SBP < 90mmHg , Routine Given 04/29/2023 8:51 AM EDT 6. 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[place], Indication for (Active or Suspected): Prophylaxis New Bag 04/18/2023 7:07 AM EDT 2 g 200 mL/hr cefTRIAXone (Rocephin) 1 g vial attach to sodium chloride 0.9% 50 mL Mini-Bag Plus 1 g, Intravenous, EVERY 24 HOURS, First dose on Mon05/26/23 at 0900, Until Discontinued, Administer over 30 Minutes, Indication for (Active or Suspected): Urinary Tract/Pyelonephritis New Bag 06/02/2023 9:19 AM EDT 1 g 100 mL/hr New Bag 06/01/2023 9:17 AM EDT 1 g 100 mL/hr New Bag 05/31/2023 9:09 AM EDT 1 g 100 mL/hr chlorhexidine (Peridex) 0.12 % solution Q-Care Kit 15 mL, Oral, 2 TIMES DAILY, First dose on Mon04/18/23 at 0900, Until Discontinued, [place] teeth and / or gums. Scan the CHG vial in the [employer] Q-Care Oral Care Kit from floor stock. Ventilator-associated pneumonia prophylaxis For use in ICU/Critical care locations ONLY. Obtain kit from Floor Stock location. Scan CHG vial in the [employer] Q-Care Oral Care Kit, Routine Given 04/19/2023 8:33 AM EDT 15 mLs Given 04/18/2023 8:06 PM EDT 15 mLs Given 04/18/2023 8:38 AM EDT 15 mLs chlorhexidine (Peridex) 0.12 % solution Q-Care Kit 15 mL, Oral, 2 TIMES DAILY, First dose on Mon04/20/23 at 0900, Until Discontinued, [place] teeth and / or gums. Scan the CHG vial in the [employer] Q-Care Oral Care Kit from floor stock. Ventilator-associated pneumonia prophylaxis For use in ICU/Critical care locations ONLY. Obtain kit from Floor Stock location. Scan CHG vial in the [employer] Q-Care Oral Care Kit, Routine Given 04/22/2023 9:23 AM EDT 15 mLs Given 04/21/2023 8:39 PM EDT 15 mLs Given 04/21/2023 9:52 AM EDT 15 mLs chlorhexidine (Peridex) 0.12 % solution Q-Care Kit 15 mL, Oral, 2 TIMES DAILY, First dose on [place] 04/27/23 at 1445, Until Discontinued, [place] teeth and / or gums. Scan the CHG vial in the [employer] Q-Care Oral Care Kit from floor stock. Ventilator-associated pneumonia prophylaxis For use in ICU/Critical care locations ONLY. Obtain kit from Floor Stock location. Scan CHG vial in the [employer] Q-Care Oral Care Kit, Routine Given 05/05/2023 8:32 AM EDT 15 mLs Given 05/04/2023 8:22 PM EDT 15 mLs Given 05/04/2023 8:14 AM EDT 15 mLs chlorthalidone (Hygroton) tablet 25 mg 25 mg, Oral, NIGHTLY, First dose on 05/28/23 at 2100, Until Discontinued, Routine Given 06/01/2023 8:35 PM EDT 25 mg Given 05/31/2023 8:36 PM EDT 25 mg Given 05/30/2023 8:33 PM EDT 25 mg clevidipine (Cleviprex) (0.5 mg/mL) infusion 0-16 mg/hr (0-32 mL/hr), Intravenous, CONTINUOUS, Starting on 04/19/23 at 1115, Until 04/22/23 at 1203, Initiate at 1 mg/hour. Titration instructions: Double infusion rate every 90 seconds until you reach goal SBP of 160 mmHg. Max infusion rate 16 mg/hour, Routine, Clevidipine is restricted to neurology patients refractory to nicardipine or if there are concerns with volume overload secondary to nicardipine. Please indicate if this order meets these criteria: Yes Rate/Dose Change 04/20/2023 2:26 AM EDT 4 mg/hr 8 mL/hr Rate/Dose Change 04/20/2023 2:16 AM EDT 2 mg/hr 4 mL/hr New Bag 04/20/2023 2:03 AM EDT 1 mg/hr 2 mL/hr clevidipine (Cleviprex) (0.5 mg/mL) infusion 1-16 mg/hr (2-32 mL/hr), Intravenous, CONTINUOUS, Starting on 04/22/23 at 2030, Until [place]acie 04/27/23 at 1105, Initiate at 1 mg/hour. Titration instructions: Double infusion rate every 90 seconds until you reach goal SBP of less than 120 mmHg. Max infusion rate 16 mg/hour, Routine, Clevidipine is restricted to neurology patients refractory to nicardipine or if there are concerns with volume overload secondary to nicardipine. Please indicate if this order meets these criteria: Yes New Bag 04/26/2023 8:58 PM EDT 2 mg/hr 4 mL/hr New Bag 04/26/2023 8:57 PM EDT 1 mg/hr 2 mL/hr Restarted 04/26/2023 8:48 PM EDT 1 mg/hr 2 mL/hr clevidipine (Cleviprex) (0.5 mg/mL) infusion 0-16 mg/hr (0-32 mL/hr), Intravenous, CONTINUOUS, Starting on [place]ac[place] 04/27/23 at 1145, Until 04/29/23 at 0322, Initiate at 1 mg/hour. Titration instructions: Double infusion rate every 90 seconds until you reach goal SBP of < 120 mmHg. Max infusion rate 16 mg/hour, Routine, Clevidipine is restricted to neurology patients refractory to nicardipine or if there are concerns with volume overload secondary to nicardipine. Please indicate if this order meets these criteria: Yes Rate/Dose Change 04/27/2023 11:24 AM EDT 6 mg/hr 12 mL/hr Rate/Dose Change 04/27/2023 11:20 AM EDT 4 mg/hr 8 mL/h r New Bag 04/27/2023 11:05 AM EDT 2 mg/hr 4 mL/hr clevidipine (Cleviprex) (0.5 mg/mL) infusion 0-16 mg/hr (0-32 mL/hr), Intravenous, CONTINUOUS, Starting on Tu05/02/23 at 1600, Until Mon05/05/23 at 1022, Initiate at 1 mg/hour. Titration instructions: Double infusion rate every 90 seconds until you reach goal SBP of <120 mmHg. Max infusion rate 16 mg/hour, Routine, Clevidipine is restricted to neurology patients refractory to nicardipine or if there are concerns with volume overload secondary to nicardipine. Please indicate if this order meets these criteria: Yes Rate/Dose Verify 05/05/2023 8:00 AM EDT 16 mg/hr 32 mL/hr New Bag 05/05/2023 6:11 AM EDT 16 mg/hr 32 mL/hr Rate/Dose Verify 05/05/2023 6:00 AM EDT 16 mg/hr 32 mL/h r clevidipine (Cleviprex) (0.5 mg/mL) infusion 0-21 mg/hr (0-42 mL/hr), Intravenous, CONTINUOUS, Starting on Mon05/05/23 at 1745, Until [place]ac[place] 05/11/23 at 1214, Initiate at 1 mg/hour. Titration instructions: Double infusion rate every 90 seconds until you reach goal SBP < 140 mmHg. Max infusion rate 21 mg/hour, Routine, Clevidipine is restricted to neurology patients refractory to nicardipine or if there are concerns with volume overload secondary to nicardipine. Please indicate if this order meets these criteria: Yes Rate/Dose Change 05/11/2023 3:02 AM EDT 2 mg/hr 4 mL/hr Rate/Dose Change 05/11/2023 2:00 AM EDT 4 mg/hr 8 mL/hr Rate/Dose Change 05/11/2023 1:09 AM EDT 10.5 mg/hr 21 mL/h r clevidipine (Cleviprex) (0.5 mg/mL) infusion 0-16 mg/hr (0-32 mL/hr), Intravenous, CONTINUOUS, Starting on Mon05/12/23 at 1215, Until 05/13/23 at 1701, Initiate at 1 mg/hour. Titration instructions: Double infusion rate every 90 seconds until you reach goal SBP of <140 mmHg. Max infusion rate 16 mg/hour, Routine, Clevidipine is restricted to neurology patients refractory to nicardipine or if there are concerns with volume overload secondary to nicardipine. Please indicate if this order meets these criteria: Yes Rate/Dose Change 05/13/2023 10:46 AM EDT 0 mg/hr 0 mL/hr Rate/Dose Change 05/13/2023 10:42 AM EDT 2 mg/hr 4 mL/h r Rate/Dose Change 05/13/2023 10:18 AM EDT 4 mg/hr 8 mL/h r clevidipine (Cleviprex) (0.5 mg/mL) infusion 0-16 mg/hr (0-32 mL/hr), Intravenous, CONTINUOUS, Starting on Mon05/15/23 at 1045, Until Mon05/18/23 at 1540, Initiate at 1 mg/hour. Titration instructions: Double infusion rate every 90 seconds until you reach goal SBP of <160 mmHg. Max infusion rate 16 mg/hour, Routine, Clevidipine is restricted to neurology patients refractory to nicardipine or if there are concerns with volume overload secondary to nicardipine. Please indicate if this order meets these criteria: Yes Rate/Dose Verify 05/18/2023 10:00 AM EDT 2 mg/hr 4 mL/hr Rate/Dose Change 05/18/2023 9:30 AM EDT 2 mg/hr 4 mL/hr Rate/Dose Verify 05/18/2023 8:00 AM EDT 6 mg/hr 12 mL/h r cloNIDine (Catapres) tablet 0.2 mg 0.2 mg, Per G Tube, EVERY 8 HOURS SCHEDULED, First dose on Mon04/26/23 at 1200, Until Discontinued, Routine Given 04/27/2023 5:38 AM EDT 0.2 mg Given 04/26/2023 9:04 PM EDT 0.2 mg Given 04/26/2023 11:08 AM EDT 0.2 mg cloNIDine (Catapres) tablet 0.2 mg 0.2 mg, Per NG tube, EVERY 8 HOURS, First dose on Mon05/06/23 at 1300, Until Discontinued, Routine Given 05/07/2023 5:43 AM EDT 0.2 mg Given 05/06/2023 9:36 PM EDT 0.2 mg Given 05/06/2023 1:07 PM EDT 0.2 mg cloNIDine (Catapres) tablet 0.2 mg 0.2 mg, Per NG tube, EVERY 8 HOURS, First dose (after last modification) on Mon05/15/23 at 1300, Until Discontinued, Routine Given 05/20/2023 5:39 AM EDT 0.2 mg Given 05/19/2023 9:06 PM EDT 0.2 mg Given 05/19/2023 1:04 PM EDT 0.2 mg cloNIDine (Catapres) tablet 0.2 mg 0.2 mg, Oral, EVERY 8 HOURS, First dose (after last modification) on [place] 05/21/23 at 1130, Until Discontinued, Routine Given 05/24/2023 7:54 PM EDT 0.2 mg Given 05/24/2023 11:30 AM EDT 0.2 mg Given 05/24/2023 3:30 AM EDT 0.2 mg cloNIDine (Catapres) tablet 0.2 mg 0.2 mg, Oral, 3 TIMES DAILY, First dose (after last modification) on [facility] 05/25/23 at 1500, Until Discontinued, Routine Given 06/02/2023 9:18 AM EDT 0.2 mg Given 06/01/2023 8:35 PM EDT 0.2 mg Given 06/01/2023 3:18 PM EDT 0.2 mg cloNIDine (Catapres) tablet 0.3 mg 0.3 mg, Per G Tube, EVERY 8 HOURS SCHEDULED, First dose (after last modification) on [facility] 04/27/23 at 1400, Until Discontinued, Routine Given 04/28/2023 5:26 AM EDT 0.3 mg Given 04/27/2023 11:27 PM EDT 0.3 mg Given 04/27/2023 2:33 PM EDT 0.3 mg cloNIDine (Catapres) tablet 0.3 mg 0.3 mg, Per NG tube, EVERY 8 HOURS, First dose (after last modification) on [place] 05/07/23 at 1300, Until Discontinued, Routine Given 05/15/2023 4:03 AM EDT 0.3 mg Given 05/14/2023 8:11 PM EDT 0.3 mg Given 05/14/2023 1:08 PM EDT 0.3 mg dexmedeTOMIDine (Precedex) (4 mcg/mL) in sodium chloride 0.9% 100 mL infusion 0-1.7 mcg/kg/hr ? 88.4 kg Adjusted weight (0-37.57 mL/hr, rounded to 0-37.6 mL/hr), Intravenous, CONTINUOUS, Starting on Mon04/19/23 at 1315, Until [facility] 04/27/23 at 1920, Titrate to sedation level of RASS Goal (-)1 to 0. Start at 0.4 mcg/kg/hr. Increase/decrease by 0.4 mcg/kg/hr every 15 minutes until goal reached. Once stable, reassess patient every 30 minutes. Do not exceed 1.7 mcg/kg/hr. Change rate only after assessing and documenting RASS. Reassess sedation scores within 30 minutes after every rate change. If under sedated, increase rate by 0.4 mcg/kg/hr. If over sedated, hold sedative until target RASS (-)1 to 0 achieved and then restart at 50% of previous rate. Call pump house engineer if goal not achieved at maximum rate. If SAT is ordered, and if patient meets criteria for Spontaneous Awakening Trial, titrate per protocol., Routine, Please indicate the name & specialty of the Attending Provider who authorized the use of this medication: [email or web address] Rate/Dose Verify 04/27/2023 8:00 AM EDT 0.4 mcg/kg/hr 8.8 mL/hr Rate/Dose Change 04/27/2023 6:09 AM EDT 0.4 mcg/kg/hr 8.8 mL/hr New Bag 04/27/2023 4:34 AM EDT 0.8 mcg/kg/hr 17.7 mL/hr dexmedeTOMIDine (Precedex) (4 mcg/mL) in sodium chloride 0.9% 100 mL infusion 0-1.7 mcg/kg/hr ? 90.8 kg Adjusted weight (0-38.59 mL/hr, rounded to 0-38.6 mL/hr), Intravenous, CONTINUOUS, Starting on Mon05/01/23 at 1245, Until Mon05/08/23 at 0926, Titrate to sedation level of RASS Goal (-)1 to 0. Start at 0.4 mcg/kg/hr. Increase/decrease by 0.4 mcg/kg/hr every 15 minutes until goal reached. Once stable, reassess patient every 30 minutes. Do not exceed 1.7 mcg/kg/hr. Change rate only after assessing and documenting RASS. Reassess sedation scores within 30 minutes after every rate change. If under sedated, increase rate by 0.4 mcg/kg/hr. If over sedated, hold sedative until target RASS (-)1 to 0 achieved and then restart at 50% of previous rate. Call pump house engineer if goal not achieved at maximum rate. If SAT is ordered, and if patient meets criteria for Spontaneous Awakening Trial, titrate per protocol., Routine, Please indicate the name & specialty of the Attending Provider who authorized the use of this medication: Dr. Smith, neurology Rate/Dose Verify 05/08/2023 7:00 AM EDT 1.7 mcg/kg/hr 38.6 mL/hr New Bag 05/08/2023 6:06 AM EDT 1.7 mcg/kg/hr 38.6 mL/hr Rate/Dose Verify 05/08/2023 6:00 AM EDT 1.7 mcg/kg/hr 38.6 mL/hr dilTIAZem (Cardizem) tablet 120 mg 120 mg, Per NG tube, EVERY 6 HOURS SCHEDULED, First dose (after last modification) on [facility] 04/25/23 at 1200, Until Discontinued, Hold for HR < 50, Routine Given 04/28/2023 5:26 AM EDT 120 mg Given 04/27/2023 11:10 PM EDT 120 mg Given 04/27/2023 6:42 PM EDT 120 mg dilTIAZem (Cardizem) tablet 120 mg 120 mg, Per NG tube, EVERY 6 HOURS SCHEDULED, First dose (after last modification) on [facility] 05/04/23 at 1800, Until Discontinued, Hold for HR < 50 bpm and/or SBP < 90mmHg and notify [facility] provider/team, Routine Given 05/14/2023 6:17 AM EDT 120 mg Given 05/13/2023 11:56 PM EDT 120 mg Given 05/13/2023 5:53 PM EDT 120 mg dilTIAZem (Cardizem) tablet 30 mg 30 mg, Per NG tube, EVERY 6 HOURS SCHEDULED, First dose (after last modification) on [facility] 04/29/23 at 1800, Until Discontinued, Hold for HR < 50, Routine Given 05/02/2023 12:05 PM EDT 30 mg Given 05/02/2023 5:17 AM EDT 30 mg Given 05/02/2023 12:45 AM EDT 30 mg dilTIAZem (Cardizem) tablet 60 mg 60 mg, Per NG tube, EVERY 6 HOURS SCHEDULED, First dose (after last modification) on [facility] 04/29/23 at 1200, Until Discontinued, Hold for HR < 50, Routine Given 04/29/2023 12:07 PM EDT 60 mg dilTIAZem (Cardizem) tablet 60 mg 60 mg, Per NG tube, EVERY 6 HOURS SCHEDULED, First dose (after last modification) on Mon05/02/23 at 1800, Until Discontinued, Hold for HR < 50, Routine Given 05/03/2023 5:18 PM EDT 60 mg Given 05/03/2023 12:08 PM EDT 60 mg Given 05/03/2023 6:24 AM EDT 60 mg dilTIAZem (Cardizem) tablet 90 mg 90 mg, Per NG tube, EVERY 6 HOURS SCHEDULED, First dose on Mon04/24/23 at 1200, Until Discontinued, Routine Given 04/25/2023 6:26 AM EDT 90 mg Given 04/25/2023 12:51 AM EDT 90 mg Given 04/24/2023 5:17 PM EDT 90 mg dilTIAZem (Cardizem) tablet 90 mg 90 mg, Per NG tube, EVERY 6 HOURS SCHEDULED, First dose (after last modification) on Mon04/28/23 at 1200, Until Discontinued, Hold for HR < 50, Routine Given 04/29/2023 5:51 AM EDT 90 mg Given 04/28/2023 11:21 PM EDT 90 mg Given 04/28/2023 6:17 PM EDT 90 mg dilTIAZem (Cardizem) tablet 90 mg 90 mg, Per NG tube, EVERY 6 HOURS SCHEDULED, First dose (after last modification) on [facility] 05/04/23 at 0000, Until Discontinued, Hold for HR < 50 bpm and/or SBP < 90mmHg and notify team, Routine Given 05/04/2023 12:14 PM EDT 90 mg Given 05/04/2023 5:41 AM EDT 90 mg Given 05/03/2023 11:10 PM EDT 90 mg enalaprilat (Vasotec) (1.25 mg/mL) injection 1.25 mg 1.25 mg, Intravenous, Administer over 5 Minutes, EVERY 6 HOURS PRN, Starting on Mon04/18/23 at 0645, Until 05/20/23 at 1924, Hypertension, - Give when SBP is greater than 160 mmHg. - Use labetalol first, then enalapril, then hydralazine., Routine Given 05/17/2023 2:17 AM EDT 1.25 m g Given 05/16/2023 4:16 AM EDT 1.25 mg Given 05/15/2023 7:21 PM EDT 1.25 mg enalaprilat (Vasotec) (1.25 mg/mL) injection 1.25 mg 1.25 mg, Intravenous, Administer over 5 Minutes, EVERY 6 HOURS PRN, Starting on Mon05/21/23 at 1024, Until Mon06/02/23 at 1453, Hypertension, - Give when SBP is greater than 160 mmHg. - Use labetalol first, then enalaprilat., Routine Given 05/25/2023 6:11 AM EDT 1.25 mg Given 05/24/2023 10:06 PM EDT 1.25 mg Given 05/24/2023 3:03 AM EDT 1.25 mg enoxaparin (Lovenox) (40 mg/0.4 mL) subcutaneous injection 40 mg 40 mg, Subcutaneous, NIGHTLY, First dose on Mon05/25/23 at 2100, Until Discontinued, Routine Given 06/01/2023 8:34 PM EDT 40 mg Given 05/31/2023 8:36 PM EDT 40 mg Given 05/30/2023 8:32 PM EDT 40 mg ergocalciferoL (vitamin D2) (8,000 units/mL) oral liquid 50,000 Units 50,000 Units, Per NG tube, WEEKLY, First dose on Mon04/30/23 at 0900, Until Discontinued, Routine Given 05/14/2023 9:06 AM EDT 50,000 Units Given 05/07/2023 8:48 AM EDT 50,000 Units Given 04/30/2023 10:51 AM EDT 50,000 Units ergocalciferoL (vitamin D2) (8,000 units/mL) oral liquid 50,000 Units 50,000 Units, Oral, WEEKLY, First dose (after last modification) on Mon05/22/23 at 0030, Until Discontinued, Routine Given 05/29/2023 10:53 AM EDT 50,000 Units Given 05/22/2023 1:50 AM EDT 50,000 Units ergocalciferoL (vitamin D2) (8,000 units/mL) oral liquid 800 Units 800 Units, Oral, DAILY, First dose on Mon04/29/23 at 0900, Until Discontinued, Routine Given 04/29/2023 8:51 AM EDT 800 Units esmoloL (Brevibloc) (10 mg/mL) bolus from bag 57,700 mcg 57,700 mcg (rounded from 57,650 mcg = 500 mcg/kg/dose ? 115.3 kg), Intravenous, ONCE, 1 dose, On Mon04/22/23 at 1930, Routine Bolus from Infusion 04/22/2023 7:32 PM EDT 57,700 mcg esmoloL (Brevibloc) (10 mg/mL) bolus from bag 60,900 mcg 60,900 mcg (500 mcg/kg/dose ? 121.8 kg), Intravenous, ONCE, 1 dose, On Mon04/26/23 at 0945, Routine Bolus from Infusion 04/26/2023 9:05 AM EDT 60,900 mcg esmoloL (Brevibloc) (10 mg/mL) in sterile water 250 mL infusion 0-200 mcg/kg/min ? 115.3 kg (0-138.36 mL/hr, rounded to 0-138.4 mL/hr), Intravenous, CONTINUOUS, Starting on Mon04/22/23 at 2000, Until Mon04/26/23 at 0728, Titrate to keep heart rate (HR) less than 60 bmp maintaining MAP greater than 65 mmHg. Start at 50 mcg/kg/min. Increase/decrease by 50 mcg/kg/min every 5 minutes until goal reached. Do not exceed 200 mcg/kg/min. Rate/Dose Change 04/26/2023 1:25 AM EDT 50 mcg/kg/min 34.6 mL/hr New Bag 04/26/2023 1:00 AM EDT 100 mcg/kg/min 69.2 mL/h r Rate/Dose Verify 04/26/2023 12:00 AM EDT 100 mcg/kg/min 69 .2 mL/hr esmoloL (Brevibloc) (10 mg/mL) in sterile water 250 mL infusion 0-200 mcg/kg/min ? 121.8 kg (0-146.16 mL/hr, rounded to 0-146.2 mL/hr), Intravenous, CONTINUOUS, Starting on Mon04/26/23 at 0945, Until Mon04/27/23 at 1102, Titrate to keep heart rate (HR) between 50 and 60 bpm maintaining MAP greater than 60 mmHg. Start at 50 mcg/kg/min. Increase/decrease by 50 mcg/kg/min every 5 minutes until goal reached. Do not exceed 200 mcg/kg/min. Rate/Dose Change 04/27/2023 11:02 AM EDT 200 mcg/kg/min 146.2 mL/hr Rate/Dose Change 04/27/2023 10:29 AM EDT 200 mcg/kg/min 14 6.2 mL/hr Rate/Dose Change 04/27/2023 10:24 AM EDT 150 mcg/kg/min 10 9.6 mL/hr esmoloL 10 mg/mL (Brevibloc) in sodium chloride 0.9% 250 mL infusion 0-200 mcg/kg/min ? 122.7 kg (0-147.24 mL/hr, rounded to 0-147.2 mL/hr), Intravenous, CONTINUOUS, Starting on Mon04/27/23 at 1200, Until Mon04/27/23 at 1501, Titrate to keep heart rate (HR) between 50 and 60 bpm maintaining MAP greater than 60 mmHg. Start at 50 mcg/kg/min. Increase/decrease by 50 mcg/kg/min every 5 minutes until goal reached. Do not exceed 200 mcg/kg/min. Rate/Dose Change 04/27/2023 2:50 PM EDT 200 mcg/kg/min 147.2 mL/hr Rate/Dose Change 04/27/2023 2:20 PM EDT 150 mcg/kg/min 110 .4 mL/hr Rate/Dose Change 04/27/2023 2:10 PM EDT 100 mcg/kg/min 73. 6 mL/hr esmoloL 10 mg/mL (Brevibloc) in sodium chloride 0.9% 250 mL infusion 0-200 mcg/kg/min ? 122.7 kg (0-147.24 mL/hr, rounded to 0-147.2 mL/hr), Intravenous, CONTINUOUS, Starting on [facility] 04/27/23 at 1600, Until [facility] 04/29/23 at 0322, Titrate to keep heart rate (HR) less than 70bpm maintaining MAP greater than 60 mmHg. Start at 50 mcg/kg/min. Increase/decrease by 50 mcg/kg/min every 5 minutes until goal reached. Do not exceed 200 mcg/kg/min. Rate/Dose Verify 04/27/2023 10:00 PM EDT 50 mcg/kg/min 36.8 mL/hr Rate/Dose Verify 04/27/2023 8:00 PM EDT 50 mcg/kg/min 36.8 mL/hr Rate/Dose Verify 04/27/2023 6:00 PM EDT 50 mcg/kg/min 36.8 mL/hr famotidine (Pepcid) (10 mg/mL) injection 20 mg 20 mg, Intravenous, EVERY 12 HOURS SCHEDULED (2 times per day), First dose on Mon04/18/23 at 0945, Until Discontinued Given 04/18/2023 11:00 AM EDT 20 mg famotidine (Pepcid) tablet 20 mg 20 mg, Per NG tube, 2 TIMES DAILY, First dose on 04/18/23 at 2100, Until Discontinued, Routine Given 04/19/2023 8:32 AM EDT 20 mg Given 04/18/2023 8:07 PM EDT 20 mg famotidine (Pepcid) tablet 20 mg 20 mg, Per OG Tube, 2 TIMES DAILY, First dose on Mon04/20/23 at 0900, Until Discontinued, Routine Given 04/22/2023 8:32 AM EDT 20 mg Given 04/21/2023 8:37 PM EDT 20 mg Given 04/21/2023 9:31 AM EDT 20 mg famotidine (Pepcid) tablet 20 mg 20 mg, Per NG tube, 2 TIMES DAILY, First dose on Mon04/27/23 at 2100, Until Discontinued, Routine Given 05/05/2023 8:31 AM EDT 20 mg Given 05/04/2023 8:22 PM EDT 20 mg Given 05/04/2023 8:14 AM EDT 20 mg fentaNYL (50 mcg/mL) bolus from infusion 25 mcg 25 mcg, Intravenous, ONCE, 1 dose, On [facility] 04/27/23 at 1730, Initial bolus dose: IV once now followed by continuous infusion, Routine Bolus from Infusion 04/27/2023 5:00 PM EDT 25 mcg fentaNYL (50 mcg/mL) bolus from infusion 25 mcg 25 mcg, Intravenous, EVERY 30 MIN PRN, Starting on [facility] 04/27/23 at 1636, Until 05/01/23 at 1158, Pain, Refer to infusion order for Bolus instructions. Reassess pain 15 minutes after bolus given., Routine Bolus from Infusion 04/30/2023 4:42 PM EDT 25 mcg Bolus from Infusion 04/30/2023 10:40 AM EDT 25 mcg Bolus from Infusion 04/28/2023 2:34 AM EDT 25 mcg fentaNYL (PF) (50 mcg/mL) infusion syringe 50 mL 0-100 mcg/hr (0-2 mL/hr), Intravenous, CONTINUOUS, Starting on [facility] 04/27/23 at 1730, Until 05/01/23 at 1158, Titrate to pain scale goal less than or equal to 3, or to patient verbalized goal. Initial infusion rate: 50 mcg/hr. Rate not to exceed 200 mcg/hr. If current range rate is 25-100 mcg/hr: Bolus with 50 mcg for each infusion increase. Titrate infusion by 25 mcg/hr to reach goal. If current range rate is 101-200 mcg/hr: Bolus with 100 mcg for each infusion increase. Titrate infusion by 50 mcg/hr to reach goal. If pain still not controlled at 200 mcg/hr, or increase exceeds the maximum range in the order, contact provider for a new order. Assess pain once, 15-30 minutes after infusion initiation, bolus administrations, or infusion titration. Once stable, assess pain every 1-2 hours. Pain assessment MUST be documented prior to rate change., Routine Rate/Dose Verify 05/01/2023 10:00 AM EDT 25 mcg/hr 0.5 mL/hr Rate/Dose Verify 05/01/2023 8:00 AM EDT 25 mcg/hr 0.5 mL/ hr Rate/Dose Verify 05/01/2023 6:00 AM EDT 25 mcg/hr 0.5 mL/ hr fentaNYL (PF) (50 mcg/mL) injection 200 mcg 200 mcg, Intravenous, ONCE, 1 dose, On [facility] 04/20/23 at 1600, During bronchoscopy, Routine Given 04/20/2023 3:10 PM EDT 100 mcg fentaNYL (PF) (50 mcg/mL) injection 25 mcg 25 mcg, Intravenous, EVERY 1 HOUR PRN, Starting on Mon04/21/23 at 0615, Until 04/22/23 at 1203, Pain, for pain 1-5, Routine Given 04/22/2023 8:00 PM EDT 25 mcg Given 04/21/2023 6:28 AM EDT 25 mcg fentaNYL (PF) (50 mcg/mL) injection 25 mcg 25 mcg, Intravenous, EVERY 1 HOUR PRN, Starting on 05/01/23 at 1157, Until Tu05/02/23 at 1027, Pain, Routine Given 05/02/2023 9:54 AM EDT 25 mcg Given 05/01/2023 7:34 PM EDT 25 mcg Given 05/01/2023 3:52 PM EDT 25 mcg fentaNYL (PF) (50 mcg/mL) injection 25 mcg 25 mcg, Intravenous, EVERY 30 MIN PRN, Starting on Mon05/02/23 at 1030, Until 05/07/23 at 0945, Pain, Routine Given 05/06/2023 5:16 PM EDT 25 mcg Given 05/06/2023 6:00 AM EDT 25 mcg Given 05/06/2023 2:16 AM EDT 25 mcg fentaNYL (PF) (50 mcg/mL) injection 25 mcg 25 mcg, Intravenous, EVERY 15 MIN PRN, 2 doses, Starting on 05/06/23 at 0252, Until 05/06/23 at 1044, Pain, agitation, Routine Given 05/06/2023 2:59 AM EDT 25 mcg fentaNYL (PF) (50 mcg/mL) injection 50 mcg 50 mcg, Intravenous, EVERY 30 MIN PRN, Starting on Mon04/19/23 at 0853, Until Mon04/19/23 at 0911, Pain, Routine Given 04/19/2023 9:01 AM EDT 50 mcg fentaNYL (PF) (50 mcg/mL) injection 50 mcg 50 mcg, Intravenous, EVERY 2 HOURS PRN, Starting on 04/22/23 at 2051, Until 04/22/23 at 2154, Pain, Routine Given 04/22/2023 8:55 PM EDT 50 mcg fentaNYL (PF) (50 mcg/mL) injection 50 mcg 50 mcg, Intravenous, ONCE, 1 dose, On Mon05/02/23 at 1115, Routine Given 05/02/2023 11:36 AM EDT 50 mcg fentaNYL (PF) (50 mcg/mL) injection 75 mcg 75 mcg, Intravenous, EVERY 2 HOURS PRN, Starting on 04/22/23 at 2154, Until [facility]ac[facility] 04/27/23 at 1636, Pain, Routine Given 04/25/2023 4:42 PM EDT 75 mcg Given 04/24/2023 8:20 AM EDT 75 mcg Given 04/23/2023 2:26 PM EDT 75 mcg fentaNYL (PF) (Sublimaze) 50 mcg/mL injection 1 dose, Starting on Mon04/20/23 at 1506, Until Mon04/20/23 at 1510, Kristin Vela: panda override FLUoxetine (PROzac) capsule 20 mg 20 mg, Per NG tube, DAILY, First dose on [place] 05/07/23 at 1045, Until Discontinued, Routine Given 05/20/2023 9:14 AM EDT 20 mg Given 05/19/2023 8:08 AM EDT 20 mg Given 05/18/2023 8:41 AM EDT 20 mg FLUoxetine (PROzac) capsule 20 mg 20 mg, Oral, DAILY, First dose (after last modification) on [place] 05/21/23 at 1115, Until Discontinued, Routine Given 06/02/2023 9:18 AM EDT 20 mg Given 06/01/2023 9:19 AM EDT 20 mg Given 05/31/2023 9:12 AM EDT 20 mg folic acid (Vitamin B9) tablet 1,000 mcg 1,000 mcg, Per NG tube, DAILY, First dose on Mon04/18/23 at 1330, Until Discontinued, Routine Given 05/01/2023 9:21 AM EDT 1,000 mcg Given 04/30/2023 9:16 AM EDT 1,000 mcg Given 04/29/2023 8:52 AM EDT 1,000 mcg free water bolus 200 mL 200 mL, Per NG tube, 3 TIMES DAILY, First dose on [facility] 05/20/23 at 1000, Until Discontinued, Routine Given 05/20/2023 10:00 AM EDT 200 mLs furosemide (Lasix) (1 mg/mL) infusion 100 mg vial attached to sodium chloride 0.9% 100 mL Mini-Bag Plus 20 mg/hr (20 mL/hr), Intravenous, CONTINUOUS, Starting on [facility] 04/27/23 at 0400, Until 04/29/23 at 1311, Routine Rate/Dose Verify 04/29/2023 12:00 PM EDT 20 mg/hr 20 mL/hr Rate/Dose Verify 04/29/2023 10:00 AM EDT 20 mg/hr 20 mL/ hr Rate/Dose Verify 04/29/2023 8:00 AM EDT 20 mg/hr 20 mL/h r furosemide (Lasix) (10 mg/mL) injection 120 mg 120 mg, Intravenous, ONCE, 1 dose, On [facility] 04/27/23 at 1300 Given 04/27/2023 12:27 PM EDT 100 mg furosemide (Lasix) (10 mg/mL) injection 120 mg 120 mg, Intravenous, ONCE, 1 dose, On Mon05/03/23 at 0245 Given 05/03/2023 1:57 AM EDT 120 mg furosemide (Lasix) (10 mg/mL) injection 120 mg 120 mg, Intravenous, ONCE, 1 dose, On Mon05/03/23 at 0700 Given 05/03/2023 6:40 AM EDT 120 mg furosemide (Lasix) (10 mg/mL) injection 120 mg 120 mg, Intravenous, ONCE, 1 dose, On Mon05/03/23 at 1230 Given 05/03/2023 12:08 PM EDT 120 mg furosemide (Lasix) (10 mg/mL) injection 120 mg 120 mg, Intravenous, ONCE, 1 dose, On Mon05/05/23 at 1215 Given 05/05/2023 12:26 PM EDT 120 mg furosemide (Lasix) (10 mg/mL) injection 120 mg 120 mg, Intravenous, ONCE, 1 dose, On 05/20/23 at 1600 Given 05/20/2023 4:33 PM EDT 120 mg furosemide (Lasix) (10 mg/mL) injection 20 mg 20 mg, Intravenous, ONCE, 1 dose, On Mon04/19/23 at 1145 Given 04/19/2023 11:09 AM EDT 20 mg furosemide (Lasix) (10 mg/mL) injection 20 mg 20 mg, Intravenous, ONCE, 1 dose, On Mon04/19/23 at 1400 Given 04/19/2023 1:39 PM EDT 20 mg furosemide (Lasix) (10 mg/mL) injection 20 mg 20 mg, Intravenous, ONCE, 1 dose, On Mon04/24/23 at 1430 Given 04/24/2023 2:23 PM EDT 20 mg furosemide (Lasix) (10 mg/mL) injection 20 mg 20 mg, Intravenous, ONCE, 1 dose, On Mon04/25/23 at 0445 Given 04/25/2023 4:40 AM EDT 20 mg furosemide (Lasix) (10 mg/mL) injection 40 mg 40 mg, Intravenous, ONCE, 1 dose, On [place] 04/20/23 at 0030 Given 04/20/2023 12:08 AM EDT 40 mg furosemide (Lasix) (10 mg/mL) injection 40 mg 40 mg, Intravenous, ONCE, 1 dose, On Mon04/21/23 at 1000 Given 04/21/2023 9:55 AM EDT 40 mg furosemide (Lasix) (10 mg/mL) injection 40 mg 40 mg, Intravenous, ONCE, 1 dose, On 04/22/23 at 1445 Given 04/22/2023 2:45 PM EDT 40 mg furosemide (Lasix) (10 mg/mL) injection 40 mg 40 mg, Intravenous, ONCE, 1 dose, On Mon04/25/23 at 1200 Given 04/25/2023 11:31 AM EDT 40 mg furosemide (Lasix) (10 mg/mL) injection 40 mg 40 mg, Intravenous, EVERY 6 HOURS, First dose on Mon04/25/23 at 1800, Until Discontinued Given 04/26/2023 6:15 AM EDT 40 mg Given 04/26/2023 12:32 AM EDT 40 mg C entral Line Given 04/25/2023 5:53 PM EDT 40 mg furosemide (Lasix) (10 mg/mL) injection 40 mg 40 mg, Intravenous, ONCE, 1 dose, On Mon05/01/23 at 1300 Given 05/01/2023 12:28 PM EDT 40 mg furosemide (Lasix) (10 mg/mL) injection 40 mg 40 mg, Intravenous, ONCE, 1 dose, On Mon05/02/23 at 1530 Given 05/02/2023 2:53 PM EDT 40 mg furosemide (Lasix) (10 mg/mL) injection 40 mg 40 mg, Intravenous, ONCE, 1 dose, On Mon05/17/23 at 1045 Given 05/17/2023 11:04 AM EDT 40 mg furosemide (Lasix) (10 mg/mL) injection 60 mg 60 mg, Intravenous, ONCE, 1 dose, On Mon04/26/23 at 1615 Given 04/26/2023 3:52 PM EDT 60 mg furosemide (Lasix) (10 mg/mL) injection 60 mg 60 mg, Intravenous, ONCE, 1 dose, On Mon04/26/23 at 2300 Given 04/26/2023 10:32 PM EDT 60 mg furosemide (Lasix) (10 mg/mL) injection 60 mg 60 mg, Intravenous, ONCE, 1 dose, On Mon05/09/23 at 1115 Given 05/09/2023 10:44 AM EDT 60 mg furosemide (Lasix) (10 mg/mL) injection 80 mg 80 mg, Intravenous, ONCE, 1 dose, On Mon04/27/23 at 1245 Given 04/27/2023 12:06 PM EDT 80 mg furosemide (Lasix) (10 mg/mL) injection 80 mg 80 mg, Intravenous, ONCE, 1 dose, On Mon05/02/23 at 2130 Given 05/02/2023 8:41 PM EDT 80 mg furosemide (Lasix) (10 mg/mL) injection 80 mg 80 mg, Intravenous, ONCE, 1 dose, On Mon05/17/23 at 1500 Given 05/17/2023 2:38 PM EDT 80 mg furosemide (Lasix) 10 mg/mL injection 1 dose, Starting on [facility] 04/27/23 at 1211, Until [facility] 04/27/23 at 1227, Luca Lee: cabinet override furosemide (Lasix) 120 mg in sodium chloride 0.9% 50 mL infusion 120 mg, Intravenous, ONCE, 1 dose, On Mon05/09/23 at 1600, Administer over 30 Minutes, Give 30 minutes after metolazone Start rate at 100 mL/hr until completion. (4 mg/min) Maximum rate of 4 mg/min. New Bag 05/09/2023 8:44 PM EDT 120 mg furosemide (Lasix) 120 mg in sodium chloride 0.9% 50 mL infusion 120 mg, Intravenous, ONCE, 1 dose, On Mon05/10/23 at 1130, Administer over 30 Minutes, Start rate at 100 mL/hr until completion. (4 mg/min) Maximum rate of 4 mg/min. Start rate at 100 mL/hr until completion. (4 mg/min) Maximum rate of 4 mg/min. New Bag 05/10/2023 11:09 AM EDT 120 mg furosemide (Lasix) 120 mg in sodium chloride 0.9% 50 mL infusion 120 mg, Intravenous, ONCE, 1 dose, On [place]ac[place] 05/11/23 at 1115, Administer over 30 Minutes, Start rate at 100 mL/hr until completion. (4 mg/min) Maximum rate of 4 mg/min. Start rate at 100 mL/hr until completion. (4 mg/min) Maximum rate of 4 mg/min. New Bag 05/11/2023 10:56 AM EDT 120 mg furosemide (Lasix) 120 mg in sodium chloride 0.9% 50 mL infusion 120 mg, Intravenous, ONCE, 1 dose, On Mon05/12/23 at 1215, Start rate at 100 mL/hr until completion. (4 mg/min) Maximum rate of 4 mg/min. Start rate at 100 mL/hr until completion. (4 mg/min) Maximum rate of 4 mg/min. New Bag 05/12/2023 12:37 PM EDT 120 mg furosemide (Lasix) 120 mg in sodium chloride 0.9% 50 mL infusion 120 mg, Intravenous, ONCE, 1 dose, On 05/13/23 at 0745, Start rate at 100 mL/hr until completion. (4 mg/min) Maximum rate of 4 mg/min. Start rate at 100 mL/hr until completion. (4 mg/min) Maximum rate of 4 mg/min. New Bag 05/13/2023 8:24 AM EDT 120 mg gadoterate meglumine (Dotarem) (0.5 mMol/mL) injection solution 0-100 mL 0-100 mL, Intravenous, ONCE PRN, 1 dose, Starting on [place]acie 04/20/23 at 2139, Until [facility]acie 04/20/23 at 2139, Per Protocol, Radiology Contrast, Routine Given 04/20/2023 9:39 PM EDT 22 mLs haloperidoL lactate (Haldol) (5 mg/mL) injection 2 mg 2 mg, Intravenous, EVERY 6 HOURS PRN, Starting on Mon05/21/23 at 1239, Until Mon06/02/23 at 1453, Agitation, If medication ordered subcutaneously, do not administer more than 3 mL as a single injection., Routine Given 05/21/2023 1:02 PM EDT 2 mg haloperidoL lactate (Haldol) (5 mg/mL) injection 5 mg 5 mg, Intravenous, ONCE PRN, 1 dose, Starting on Mon04/19/23 at 1525, Until Mon04/19/23 at 1604, Agitation, If medication ordered subcutaneously, do not administer more than 3 mL as a single injection., Routine Given 04/19/2023 4:04 PM EDT 5 mg haloperidoL lactate (Haldol) (5 mg/mL) injection 5 mg 5 mg, Intravenous, EVERY 6 HOURS PRN, Starting on Mon05/05/23 at 1713, Until 05/13/23 at 0958, Agitation, If medication ordered subcutaneously, do not administer more than 3 mL as a single injection., Routine Given 05/12/2023 9:41 PM EDT 5 mg Given 05/10/2023 9:52 PM EDT 5 mg Given 05/10/2023 12:10 AM EDT 5 mg haloperidoL lactate (Haldol) (5 mg/mL) injection 5 mg 5 mg, Intravenous, EVERY 6 HOURS PRN, Starting on 05/14/23 at 1542, Until Mon05/15/23 at 0700, Agitation, If medication ordered subcutaneously, do not administer more than 3 mL as a single injection., Routine Given 05/14/2023 3:59 PM EDT 5 mg heparin (porcine) (5,000 units/1 mL) subcutaneous injection 5,000 Units 5,000 Units, Subcutaneous, EVERY 8 HOURS SCHEDULED, First dose on [place] 04/20/23 at 0830, Until Discontinued, Routine Given 05/20/2023 2:38 PM EDT 5,000 Unit s Given 05/20/2023 5:39 AM EDT 5,000 Units Given 05/19/2023 9:06 PM EDT 5,000 Units heparin (porcine) (5,000 units/1 mL) subcutaneous injection 5,000 Units 5,000 Units, Subcutaneous, EVERY 8 HOURS SCHEDULED, First dose (after last reorder) on Mon05/21/23 at 1400, Until Discontinued, Routine Given 05/25/2023 6:04 AM EDT 5,000 Units Given 05/24/2023 9:14 PM EDT 5,000 Units Given 05/24/2023 7:06 AM EDT 5,000 Units A bdominal Tissue hydrALAZINE (Apresoline) (20 mg/mL) injection 10 mg 10 mg, Intravenous, EVERY 4 HOURS, First dose (after last modification) on 05/21/23 at 1615, Until Discontinued Given 05/22/2023 8:24 AM EDT 10 mg Given 05/22/2023 3:39 AM EDT 10 mg Given 05/22/2023 12:22 AM EDT 10 mg hydrALAZINE (Apresoline) (20 mg/mL) injection 5-20 mg 5-20 mg, Intravenous, EVERY 6 HOURS PRN, Starting on Stacie 05/11/23 at 1031, Until 05/20/23 at 1924, High Blood Pressure, For SBP greater than 160 mmHg. Initial dose: 5mg, may give an additional 5mg every 15 minutes x3 if blood pressure remains greater than 160 mmHg. Use labetalol first, then enalapril, then hydralazine. Given 05/16/2023 8:55 AM EDT 20 mg Given 05/16/2023 12:43 AM EDT 5 mg Given 05/16/2023 12:34 AM EDT 5 mg hydrALAZINE (Apresoline) (20 mg/mL) injection 5-20 mg 5-20 mg, Intravenous, EVERY 6 HOURS PRN, Starting on 05/21/23 at 1024, Until 05/21/23 at 1512, High Blood Pressure, For SBP greater than 160 mmHg. Initial dose: 5mg, may give an additional 5mg every 15 minutes x3 if blood pressure remains greater than 160 mmHg. Use labetalol first, then enalapril, then hydralazine. Given 05/21/2023 12:55 PM EDT 5 mg Given 05/21/2023 12:39 PM EDT 5 mg Given 05/21/2023 12:21 PM EDT 20 mg hydrALAZINE (Apresoline) tablet 100 mg 100 mg, Oral, EVERY 8 HOURS, First dose on 05/06/23 at 1130, Until Discontinued, Take with Food, Routine Given 05/06/2023 11:33 AM EDT 100 mg hydrALAZINE (Apresoline) tablet 100 mg 100 mg, Oral, EVERY 6 HOURS, First dose (after last modification) on 05/06/23 at 1745, Until Discontinued, Take with Food, Routine Given 05/07/2023 6:03 AM EDT 100 mg Given 05/07/2023 12:45 AM EDT 100 mg Given 05/06/2023 5:16 PM EDT 100 mg hydrALAZINE (Apresoline) tablet 100 mg 100 mg, Per NG tube, EVERY 6 HOURS, First dose (after last modification) on 05/20/23 at 1500, Until Discontinued, Take with Food, notify [facility] staff/provider if med held, Routine Given 05/20/2023 4:33 PM EDT 100 mg hydrALAZINE (Apresoline) tablet 100 mg 100 mg, Oral, EVERY 6 HOURS, First dose (after last modification) on 05/21/23 at 1130, Until Discontinued, Take with Food, notify [facility] staff/provider if med held, Routine Given 05/21/2023 11:22 AM EDT 100 mg hydrALAZINE (Apresoline) tablet 100 mg 100 mg, Oral, 3 TIMES DAILY, First dose on 05/22/23 at 1100, Until Discontinued, Take with Food, Routine Given 05/23/2023 8:48 AM EDT 100 mg Given 05/22/2023 9:34 PM EDT 100 mg Given 05/22/2023 3:19 PM EDT 100 mg hydrALAZINE (Apresoline) tablet 100 mg 100 mg, Oral, 3 TIMES DAILY, First dose on 05/28/23 at 2100, Until Discontinued, Take with Food, Routine Given 06/01/2023 9:17 AM EDT 100 mg Given 05/31/2023 8:37 PM EDT 100 mg Given 05/31/2023 3:24 PM EDT 100 mg hydrALAZINE (Apresoline) tablet 150 mg 150 mg, Oral, ONCE, 1 dose, On 05/28/23 at 1500, Take with Food, Routine Given 05/28/2023 3:20 PM EDT 150 mg hydrALAZINE (Apresoline) tablet 200 mg 200 mg, Oral, EVERY 6 HOURS, First dose (after last modification) on 05/07/23 at 1145, Until Discontinued, Take with Food, Routine Given 05/08/2023 5:34 AM EDT 200 mg Given 05/07/2023 10:47 PM EDT 200 mg Given 05/07/2023 5:10 PM EDT 200 mg hydrALAZINE (Apresoline) tablet 200 mg 200 mg, Per NG tube, EVERY 6 HOURS, First dose (after last modification) on Mon05/08/23 at 1145, Until Discontinued, Take with Food, [facility] if med held, Routine Given 05/20/2023 9:15 AM EDT 200 mg Given 05/20/2023 3:25 AM EDT 200 mg Given 05/19/2023 9:06 PM EDT 200 mg hydrALAZINE (Apresoline) tablet 200 mg 200 mg, Oral, 3 TIMES DAILY, First dose (after last modification) on Mon05/23/23 at 1500, Until Discontinued, Take with Food, Routine Given 05/28/2023 8:56 AM EDT 200 mg Given 05/27/2023 8:50 PM EDT 200 mg Given 05/27/2023 3:32 PM EDT 200 mg hydrALAZINE (Apresoline) tablet 25 mg 25 mg, Per NG tube, 3 TIMES DAILY, First dose on Mon05/06/23 at 0900, Until Discontinued, Take with Food, Routine Given 05/06/2023 8:50 AM EDT 25 mg hydrALAZINE (Apresoline) tablet 50 mg 50 mg, Oral, 3 TIMES DAILY, First dose (after last modification) on Mon06/01/23 at 1500, Until Discontinued, Take with Food, Routine Given 06/01/2023 8:34 PM EDT 50 mg Given 06/01/2023 3:18 PM EDT 50 mg insulin lispro (HumaLOG;Admelog) (100 unit/mL) subcutaneous injection vial 1-4 Units 1-4 Units, Subcutaneous, EVERY 4 HOURS SCHEDULED, First dose on Mon04/18/23 at 0800, Until Discontinued, CORRECTION BOLUS [1-4 Units] Sensitive Sliding Scale (BG in mg/dL): Correction factor 40 (1 unit of insulin is expected to drop the glucose 40 mg/dL) ?? BG 160 - 200 Give 1 unit BG 201 - 240 Give 2 units BG 241 - 280 Give 3 units and recheck BG in 2 hours. BG greater than 280, give 4 units and recheck BG in 2 hours. - If recheck BG is LESS than 280, give no insulin and resume schedule - If recheck BG is GREATER than or EQUAL to 280, give 4 units and repeat BG in 2 hours (no more than 3 times)??& call for new insulin orders. DO NOT hold if NPO, unless specifically directed to do so by written order. ?? Per Inpatient Subcutaneous Insulin Policy, recheck a BG of greater than 240 mg/dL in 2 hours., Routine Given 04/18/2023 11:04 AM EDT 2 Units Given 04/18/2023 8:37 AM EDT 1 Units insulin lispro (HumaLOG;Admelog) (100 unit/mL) subcutaneous injection vial 1-4 Units 1-4 Units, Subcutaneous, EVERY 4 HOURS SCHEDULED, First dose on Mon05/11/23 at 1300, Until Discontinued, CORRECTION BOLUS [1-4 Units] Sensitive Sliding Scale (BG in mg/dL): Correction factor 40 (1 unit of insulin is expected to drop the glucose 40 mg/dL) ?? BG 160 - 200 Give 1 unit BG 201 - 240 Give 2 units BG 241 - 280 Give 3 units and recheck BG in 2 hours. BG greater than 280, give 4 units and recheck BG in 2 hours. - If recheck BG is LESS than 280, give no insulin and resume schedule - If recheck BG is GREATER than or EQUAL to 280, give 4 units and repeat BG in 2 hours (no more than 3 times)??& call for new insulin orders. DO NOT hold if NPO, unless specifically directed to do so by written order. ?? Per Inpatient Subcutaneous Insulin Policy, recheck a BG of greater than 240 mg/dL in 2 hours., Routine Given 05/18/2023 4:05 PM EDT 1 Units Given 05/16/2023 7:43 PM EDT 1 Units Given 05/16/2023 11:08 AM EDT 1 Units insulin lispro (HumaLOG;Admelog) (100 unit/mL) subcutaneous injection vial 1-6 Units 1-6 Units, Subcutaneous, EVERY 4 HOURS SCHEDULED, First dose on Mon04/18/23 at 1200, Until Discontinued, CORRECTION BOLUS [1-6 Units] Moderate Sliding Scale (BG in mg/dL): Correction factor 20 (1 unit of insulin is expected to drop the glucose 20 mg/dL) BG 140 - 160 Give 1 unit BG 161 - 180 Give 2 units BG 181 - 200 Give 3 units BG 201 - 220 Give 4 units BG 221 - 240 Give 5 units BG greater than 240, give 6 units and recheck BG in 2 hours. - If recheck BG is LESS than 240, give no insulin and resume schedule. - If recheck BG is GREATER than or EQUAL to 240, give 6 units and repeat BG in 2 hours (no more than 3 times) & call for new insulin orders. DO NOT hold if NPO, unless specifically directed to do so by written order. ?? Per Inpatient Subcutaneous Insulin Policy, recheck a BG of greater than 240 mg/dL in 2 hours., Routine Given 04/26/2023 12:27 AM EDT 1 Units Given 04/22/2023 11:59 PM EDT 1 Units Given 04/22/2023 9:03 AM EDT 2 Units iohexoL (Omnipaque) (350 mg/mL) solution 0-200 mL 0-200 mL, Intravenous, ONCE PRN, 1 dose, Starting on Tu04/18/23 at 0942, Until Tu04/18/23 at 0942, Per Protocol, Warning Vesicant/Irritant Medication , Radiology Contrast, Routine Given 04/18/2023 9:42 AM EDT 65 mLs iohexoL (Omnipaque) (350 mg/mL) solution 0-200 mL 0-200 mL, Intravenous, ONCE PRN, 1 dose, Starting on Mon04/21/23 at 1738, Until Mon04/21/23 at 1738, Per Protocol, Warning Vesicant/Irritant Medication , Radiology Contrast, Routine Given 04/21/2023 5:38 PM EDT 65 mLs iohexoL (Omnipaque) (350 mg/mL) solution 0-200 mL 0-200 mL, Intravenous, ONCE PRN, 1 dose, Starting on 04/22/23 at 1835, Until 04/22/23 at 1835, Per Protocol, Warning Vesicant/Irritant Medication , Radiology Contrast, Routine Given 04/22/2023 6:35 PM EDT 120 mLs iohexoL (Omnipaque) (350 mg/mL) solution 0-200 mL 0-200 mL, Intravenous, ONCE PRN, 1 dose, Starting on Mon05/16/23 at 1616, Until Mon05/16/23 at 1616, Per Protocol, Warning Vesicant/Irritant Medication , Radiology Contrast, Routine Given 05/16/2023 4:16 PM EDT 120 mLs ipratropium-albuteroL (Duoneb) 0.5 mg-3 mg(2.5 mg base)/3 mL nebulizer solution 3 mL 3 mL, Nebulization, EVERY 4 HOURS, First dose on Stacie 04/27/23 at 1300, Until Discontinued, Routine Given 05/08/2023 11:23 AM EDT 3 mLs Given 05/08/2023 8:37 AM EDT 3 mLs Given 05/08/2023 5:27 AM EDT 3 mLs ipratropium-albuteroL (Duoneb) 0.5 mg-3 mg(2.5 mg base)/3 mL nebulizer solution 3 mL 3 mL, Nebulization, EVERY 4 HOURS PRN, Starting on Mon05/08/23 at 1630, Until Mon06/02/23 at 1453, Wheezing, Routine iron sucrose (Venofer) 300 mg in sodium chloride 0.9% 115 mL infusion 300 mg, Intravenous, EVERY OTHER DAY, 3 doses, First dose on Mon04/29/23 at 1845, Last dose on Mon05/03/23 at 0900, Administer over 90 Minutes, Patients should be closely monitored for signs of hypersensitivity during and for at least 30 min after each administration. The observation period is not needed for patients who have demonstrated tolerability. New Bag 05/03/2023 9:11 AM EDT 300 m g 76.7 mL/hr New Bag 05/01/2023 9:47 AM EDT 300 mg 76.7 mL/hr New Bag 04/29/2023 6:45 PM EDT 300 mg 76.7 mL/hr ivabradine (Corlanor) tablet 2.5 mg 2.5 mg, Oral, ONCE, 1 dose, On 04/29/23 at 1030, Routine Given 04/29/2023 10:10 AM EDT 2.5 mg ivabradine (Corlanor) tablet 5 mg 5 mg, Oral, 2 TIMES DAILY, First dose (after last modification) on Stacie 04/27/23 at 1915, Until Discontinued, Routine Given 04/29/2023 8:50 AM EDT 5 mg Given 04/28/2023 8:46 PM EDT 5 mg Given 04/28/2023 8:35 AM EDT 5 mg ivabradine (Corlanor) tablet 7.5 mg 7.5 mg, Oral, 2 TIMES DAILY, First dose (after last modification) on 04/29/23 at 2100, Until Discontinued, Per NGT, Routine Given 05/03/2023 8:42 AM EDT 7 .5 mg Given 05/02/2023 8:07 PM EDT 7.5 mg Given 05/02/2023 8:18 AM EDT 7.5 mg labetaloL (Normodyne) (5 mg/mL) injection solution 10-20 mg 10-20 mg, Intravenous, Administer over 2 Minutes, EVERY 15 MIN PRN, Starting on Mon04/18/23 at 0645, Until Mon05/14/23 at 1113, High Blood Pressure, Use first, then enalapril, then hydralazine. - Administer for systolic blood pressure (SBP) greater than 140 mmHg. - Administer 10 mg over 2 minutes. May repeat every 15 minutes if SBP remains above goal. - If inadequate effect with 10 mg dose then increase dose to 20 mg for subsequent dosing every 15 minutes. - Dose not to exceed 300 mg per day. Hold if pulse is less than 50 beats per minute., Routine Given 05/13/2023 10:06 PM EDT 10 mg Given 05/13/2023 6:02 PM EDT 20 mg Given 05/13/2023 3:14 PM EDT 10 mg labetaloL (Normodyne) (5 mg/mL) injection solution 10-20 mg 10-20 mg, Intravenous, ONCE PRN, 1 dose, Starting on Mon05/24/23 at 2246, Until Mon05/24/23 at 2302, High Blood Pressure, SBP greater than 160 mmHg, If systolic blood pressure (SBP) greater than or equal to 160 mmHg on two readings 5-10 minutes apart: Administer 20 mg of labetaloL over 2 minutes. Recheck BP in 15 minutes.??If labetaloL does not satisfactorily control BP within 30 minutes of first dose, notify physician. HOLD if heart rate is less??than 50 beats per minute. Notify physician and start niCARdipine. Do not exceed 300 mg total dose of labetaloL., Routine Given 05/24/2023 11:02 PM EDT 20 mg labetaloL (Normodyne) (5 mg/mL) injection solution 20 mg 20 mg, Intravenous, ONCE, 1 dose, On Mon05/21/23 at 1515, Routine Given 05/21/2023 2:31 PM EDT 20 mg labetaloL (Normodyne) (5 mg/mL) injection solution 20 mg 20 mg, Intravenous, ONCE PRN, 1 dose, Starting on Mon05/21/23 at 1624, Until Mon05/21/23 at 1545, High Blood Pressure, SBP greater than 160 mmHg, If systolic blood pressure (SBP) greater than or equal to 160 mmHg on two readings 5-10 minutes apart: Administer 20 mg of labetaloL over 2 minutes. Recheck BP in 15 minutes.??If labetaloL does not satisfactorily control BP within 30 minutes of first dose, notify physician. HOLD if heart rate is less??than 50 beats per minute. Notify physician and start niCARdipine. Do not exceed 300 mg total dose of labetaloL., Routine Given 05/21/2023 3:45 PM EDT 20 mg labetaloL (Normodyne) (5 mg/mL) injection solution 20 mg 20 mg, Intravenous, ONCE PRN, 1 dose, Starting on Mon05/22/23 at 0036, Until Mon05/23/23 at 0406, High Blood Pressure, SBP greater than 160 mmHg, If systolic blood pressure (SBP) greater than or equal to 160 mmHg on two readings 5-10 minutes apart: Administer 20 mg of labetaloL over 2 minutes. Recheck BP in 15 minutes.??If labetaloL does not satisfactorily control BP within 30 minutes of first dose, notify physician. HOLD if heart rate is less??than 50 beats per minute. Notify physician and start niCARdipine. Do not exceed 300 mg total dose of labetaloL., Routine Given 05/23/2023 4:06 AM EDT 20 mg labetaloL (Normodyne) tablet 300 mg 300 mg, Per NG tube, EVERY 8 HOURS, First dose on Mon05/05/23 at 1730, Until Discontinued, Routine Given 05/05/2023 5:30 PM EDT 300 mg labetaloL (Normodyne) tablet 300 mg 300 mg, Per NG tube, EVERY 8 HOURS, First dose on Mon05/16/23 at 1130, Until Discontinued, Routine Given 05/17/2023 2:30 AM EDT 300 mg Given 05/16/2023 6:30 PM EDT 300 mg Given 05/16/2023 11:05 AM EDT 300 mg labetaloL (Normodyne) tablet 600 mg 600 mg, Oral, EVERY 8 HOURS, First dose (after last modification) on Mon05/06/23 at 0130, Until Discontinued, Routine Given 05/06/2023 8:50 AM EDT 600 mg Given 05/06/2023 12:41 AM EDT 600 mg labetaloL (Normodyne) tablet 600 mg 600 mg, Per NG tube, EVERY 6 HOURS, First dose (after last modification) on Mon05/17/23 at 1000, Until Discontinued, Routine Given 05/18/2023 4:23 AM EDT 600 mg Given 05/17/2023 9:02 PM EDT 600 mg Given 05/17/2023 4:23 PM EDT 600 mg labetaloL (Normodyne) tablet 800 mg 800 mg, Per NG tube, EVERY 8 HOURS, First dose (after last modification) on Mon05/06/23 at 1730, Until Discontinued, Routine Given 05/08/2023 1:19 AM EDT 800 mg Given 05/07/2023 5:09 PM EDT 800 mg Given 05/07/2023 8:48 AM EDT 800 mg labetaloL (Normodyne) tablet 800 mg 800 mg, Per NG tube, EVERY 6 HOURS, First dose (after last modification) on Mon05/18/23 at 1000, Until Discontinued, Routine Given 05/20/2023 9:15 AM EDT 800 mg Given 05/20/2023 3:26 AM EDT 800 mg Given 05/19/2023 9:10 PM EDT 800 mg lactulose (Chronulac) (0.67 gram/mL) oral liquid 20 g 20 g, Oral, DAILY PRN, Starting on Mon04/27/23 at 1030, Until Mon04/28/23 at 0738, Constipation, Give an additional (2nd) dose of lactulose 2 hr after 1st dose if still no BM. Disregard if 1st dose of lactulose not ordered. Give concomitantly with any scheduled bowel medications ordered. , Routine Given 04/27/2023 11:06 AM EDT 20 g lactulose (Chronulac) (0.67 gram/mL) oral liquid 20 g 20 g, Per NG tube, DAILY PRN, Starting on Mon04/28/23 at 0732, Until Mon04/30/23 at 1007, Constipation, Give if no BM 24 hr after prior interventions or if BM is desired within 2 hr. Give concomitantly with any scheduled bowel medications ordered, Routine Given 04/28/2023 8:46 PM EDT 20 g lactulose (Chronulac) (0.67 gram/mL) oral liquid 20 g 20 g, Oral, DAILY PRN, Starting on 05/21/23 at 1024, Until Mon06/02/23 at 1453, Constipation, Give if no BM 24 hr after prior interventions or if BM is desired within 2 hr. Give concomitantly with any scheduled bowel medications ordered, Routine lactulose (Chronulac) (0.67 gram/mL) oral liquid 20 g 20 g, Oral, DAILY PRN, Starting on 05/21/23 at 1024, Until Mon06/02/23 at 1453, Constipation, Give an additional (2nd) dose of lactulose 2 hr after 1st dose if still no BM. Disregard if 1st dose of lactulose not ordered. Give concomitantly with any scheduled bowel medications ordered. , Routine Given 05/27/2023 8:51 PM EDT 20 g Given 05/25/2023 2:59 PM EDT 20 g lidocaine (Lidoderm) 5% patch 1 patch 1 patch, Transdermal, Administer over 12 Hours, EVERY 24 HOURS, First dose on Mon04/19/23 at 2000, Until Discontinued, Apply patch(es) for 12 hours, and then remove for 12 hours., Routine Patch Applied 05/06/2023 7:32 PM EDT 1 patch 04- Shoulder (Right) Patch Applied 05/05/2023 8:09 PM EDT 1 patch 03- Shoulder (Left) Patch Applied 05/04/2023 8:23 PM EDT 1 patch 03- Shoulder (Left) lidocaine (Lidoderm) 5% patch 2 patch 2 patch, Transdermal, Administer over 12 Hours, EVERY 24 HOURS, First dose (after last modification) on 05/07/23 at 2000, Until Discontinued, Apply patch(es) for 12 hours, and then remove for 12 hours. Apply to bilateral hips, Routine Patch Applied 05/14/2023 8:10 PM EDT 2 patches 20-Other (document in comment section) Patch Applied 05/13/2023 9:12 PM EDT 2 patches 20-Other (document in comment section) Patch Applied 05/12/2023 8:29 PM EDT 2 patches 20-Other (document in comment section) lidocaine (Xylocaine) 1% (10 mg/mL) injection 100 mg 100 mg (10 mL), Subcutaneous, ONCE, 1 dose, On Mon05/02/23 at 0830, Please bring to bedside for Drain removal. Thank you, Routine Given 05/02/2023 10:14 AM EDT 100 mg lidocaine (XYLOCAINE) 4 % external solution Topical (Top), ONCE, On Mon04/23/23 at 1230, 1 dose Given 04/23/2023 2:30 PM EDT 4 mLs qmyhid-apiiqbit-qiefshl DR (Creon 24) 24,000-76,000 -120,000 unit per capsule 1 capsule 1 capsule, Per G Tube, DAILY PRN, Starting on 05/06/23 at 0052, Until 05/20/23 at 1924, feeding tube occlusion, Mix Creon 24 capsule with sodium bicarbonate 650 mg (7.7 mEq) tablet dissolved in 10 mL of sterile water; let sit for 15-20 minutes. Mixture will turn brown in color. Administer through clogged feeding tube., Routine Given 05/06/2023 1:58 AM EDT 1 cap delfino lisinopriL (Zestril) tablet 20 mg 20 mg, Per NG tube, DAILY, First dose on Mon04/18/23 at 1315, Until Discontinued, Routine Given 04/19/2023 8:32 AM EDT 20 mg Given 04/18/2023 1:07 PM EDT 20 mg lisinopriL (Zestril) tablet 20 mg 20 mg, Per NG tube, ONCE, 1 dose, On Mon04/19/23 at 1115, Routine Given 04/19/2023 10:46 AM EDT 20 mg lisinopriL (Zestril) tablet 20 mg 20 mg, Oral, DAILY, First dose on Mon05/24/23 at 0930, Until Discontinued, Routine Given 05/25/2023 10:01 AM EDT 20 mg Given 05/24/2023 10:30 AM EDT 20 mg lisinopriL (Zestril) tablet 40 mg 40 mg, Per NG tube, DAILY, First dose (after last modification) on Mon04/20/23 at 0900, Until Discontinued, Routine Given 04/26/2023 8:30 AM EDT 40 mg Given 04/25/2023 8:01 AM EDT 40 mg Given 04/24/2023 8:13 AM EDT 40 mg lisinopriL (Zestril) tablet 40 mg 40 mg, Per NG tube, DAILY, First dose on Mon05/02/23 at 1230, Until Discontinued, Please notify [facility] provider/team if held, Routine Given 05/20/2023 9:14 AM EDT 4 0 mg Given 05/19/2023 8:08 AM EDT 40 mg Given 05/18/2023 8:41 AM EDT 40 mg lisinopriL (Zestril) tablet 40 mg 40 mg, Oral, DAILY, First dose (after last modification) on Mon05/21/23 at 1115, Until Discontinued, Please notify [facility] provider/team if held, Routine Given 05/21/2023 11:21 AM EDT 40 mg lisinopriL (Zestril) tablet 40 mg 40 mg, Oral, DAILY, First dose (after last modification) on Mon05/26/23 at 0900, Until Discontinued, Routine Given 06/02/2023 9:18 AM EDT 40 mg Given 06/01/2023 9:19 AM EDT 40 mg Given 05/31/2023 9:12 AM EDT 40 mg LORazepam (Ativan) (2 mg/mL) injection 2 mg 2 mg, Intravenous, ONCE, 1 dose, On Mon05/17/23 at 2315, Routine Given 05/17/2023 10:24 PM EDT 2 mg LORazepam (Ativan) (2 mg/mL) injection syringe 2 mg 2 mg, Intravenous, EVERY 4 HOURS PRN, Starting on 04/22/23 at 0957, Until Stacie 04/27/23 at 1924, Withdrawal, CIWA-Ar score 11-14, Continue assessing CIWA-Ar every 4 hours. If no improvement in CIWA-Ar after 2 consecutive doses or if patient develops worsening of symptoms, contact responsible provider to change regimen. May give IV if unable to take by mouth., Routine, LORazepam PRN CIWA-Ar Score: Regular Dose Scale Given 04/22/2023 9:45 PM EDT 2 mg Given 04/22/2023 3:27 PM EDT 2 mg LORazepam (Ativan) (2 mg/mL) injection syringe 3 mg 3 mg, Intravenous, EVERY 4 HOURS PRN, Starting on 04/22/23 at 0957, Until Stacie 04/27/23 at 1924, Withdrawal, CIWA-Ar score 15 or GREATER, May give IV if unable to take by mouth. Call responsible provider to reassess if CIWA-Ar score is greater than 15., Routine, LORazepam PRN CIWA-Ar Score: Regular Dose Scale Given 04/23/2023 5:29 AM EDT 2 mg LORazepam (Ativan) 2 mg/mL injection 1 dose, Starting on Mon05/17/23 at 2222, Until Mon05/17/23 at 2224, Yuli Boyer: cabinet override LORazepam (Ativan) tablet 3 mg 3 mg, Oral, EVERY 4 HOURS PRN, Starting on 04/22/23 at 0957, Until Stacie 04/27/23 at 1924, Withdrawal, CIWA-Ar score 15 or GREATER, May give IV LORazepam if unable to take by mouth. Call responsible provider to reassess if CIWA-Ar score is greater than 15., Routine, LORazepam PRN CIWA-Ar Score: Regular Dose Scale Given 04/25/2023 12:57 AM EDT 3 mg Given 04/23/2023 8:09 PM EDT 3 mg magnesium citrate oral liquid 296 mL 296 mL, Oral, ONCE PRN, 1 dose, Starting on Mon05/21/23 at 1024, Until Mon06/02/23 at 1453, Constipation, Give if no BM 2 hr after previous interventions. If 2 hr after mag citrate there is still no BM, see order for tap water enema, if placed. Give concomitantly with any scheduled bowel medications ordered., Routine magnesium hydroxide (Milk of Magnesia) (80mg/mL) oral liquid 30 mL 30 mL, Oral, DAILY, First dose (after last modification) on Mon04/26/23 at 0900, Until Discontinued, 30 mL regular (400 mg/5 mL) = 10 mL concentrate (2400 mg/10 mL), Routine Given 04/29/2023 8:50 AM EDT 3 0 mLs Given 04/28/2023 8:32 AM EDT 30 mLs Given 04/27/2023 8:05 AM EDT 30 mLs magnesium hydroxide (Milk of Magnesia) (80mg/mL) oral liquid 30 mL 30 mL, Per NG tube, DAILY, First dose (after last modification) on Mon04/30/23 at 0900, Until Discontinued, 30 mL regular (400 mg/5 mL) = 10 mL concentrate (2400 mg/10 mL), Routine Given 05/02/2023 8:13 AM EDT 30 mLs Given 05/01/2023 9:21 AM EDT 30 mLs Given 04/30/2023 9:20 AM EDT 30 mLs magnesium sulfate 1 g in dextrose 5% 100 mL infusion 1 g, Intravenous, ONCE, 1 dose, On Stacie 05/25/23 at 1730, Administer over 60 Minutes New Bag 05/25/2023 5:20 PM EDT 1 g 100 mL/hr magnesium sulfate 2 g in sterile water 50 mL infusion 2 g, Intravenous, ONCE, 1 dose, On Mon04/19/23 at 0300, Administer over 120 Minutes New Bag 04/19/2023 3:21 AM EDT 2 g 25 mL/hr magnesium sulfate 2 g in sterile water 50 mL infusion 2 g, Intravenous, EVERY 2 HOURS, 2 doses, First dose on Stacie 04/20/23 at 0245, Last dose on Mon04/20/23 at 0445, Administer over 120 Minutes New Bag 04/20/2023 4:47 AM EDT 2 g 25 mL/hr New Bag 04/20/2023 1:56 AM EDT 2 g 25 mL/hr magnesium sulfate 2 g in sterile water 50 mL infusion 2 g, Intravenous, EVERY 2 HOURS, 2 doses, First dose on Mon04/26/23 at 1445, Last dose on Mon04/26/23 at 1645, Administer over 120 Minutes Rate/Dose Verify 04/26/2023 6:00 PM EDT 25 mL/hr New Bag 04/26/2023 4:54 PM EDT 2 g 25 mL/hr Rate/Dose Verify 04/26/2023 4:00 PM EDT 25 mL/h r magnesium sulfate 2 g in sterile water 50 mL infusion 2 g, Intravenous, EVERY 2 HOURS, 2 doses, First dose on Mon05/08/23 at 0330, Last dose on Mon05/08/23 at 0530, Administer over 120 Minutes Rate/Dose Verify 05/08/2023 7:00 AM EDT 25 mL/hr Rate/Dose Verify 05/08/2023 6:00 AM EDT 25 mL/h r New Bag 05/08/2023 5:30 AM EDT 2 g 25 mL/hr magnesium sulfate 2 g in sterile water 50 mL infusion 2 g, Intravenous, EVERY HOUR, 2 doses, First dose on Mon05/11/23 at 0500, Last dose on Mon05/11/23 at 0600, Administer over 120 Minutes New Bag 05/11/2023 6:00 AM EDT 2 g 25 mL/hr New Bag 05/11/2023 5:23 AM EDT 2 g 25 mL/hr magnesium sulfate 2 g in sterile water 50 mL infusion 2 g, Intravenous, ONCE, 1 dose, On Mon05/11/23 at 2100, Administer over 120 Minutes New Bag 05/11/2023 8:24 PM EDT 2 g 25 mL/hr magnesium sulfate 2 g in sterile water 50 mL infusion 2 g, Intravenous, EVERY 2 HOURS, 2 doses, First dose on Mon05/14/23 at 1200, Last dose on Mon05/14/23 at 1400, Administer over 120 Minutes, Minimum infusion duration is 2 hours. New Bag 05/14/2023 2:28 PM EDT 2 g 2 5 mL/hr New Bag 05/14/2023 12:02 PM EDT 2 g 25 mL/hr magnesium sulfate 2 g in sterile water 50 mL infusion 2 g, Intravenous, EVERY 2 HOURS, 2 doses, First dose on Mon05/18/23 at 0215, Last dose on Mon05/18/23 at 0415, Administer over 120 Minutes New Bag 05/18/2023 4:20 AM EDT 2 g 25 mL/hr New Bag 05/18/2023 1:39 AM EDT 2 g 25 mL/hr metOLazone (Zaroxolyn) tablet 10 mg 10 mg, Per NG tube, DAILY, First dose (after last modification) on Mon04/29/23 at 0945, Until Discontinued, Routine Given 05/02/2023 8:17 AM EDT 10 mg Given 05/01/2023 9:25 AM EDT 10 mg Given 04/30/2023 10:57 AM EDT 10 mg metOLazone (Zaroxolyn) tablet 10 mg 10 mg, Per NG tube, ONCE, 1 dose, On Mon05/02/23 at 2245, Routine Given 05/02/2023 10:38 PM EDT 10 mg metOLazone (Zaroxolyn) tablet 10 mg 10 mg, Oral, EVERY 12 HOURS, First dose on Mon05/03/23 at 1045, Until Discontinued, Routine Given 05/04/2023 10:08 AM EDT 10 mg Given 05/03/2023 11:06 PM EDT 10 mg Given 05/03/2023 11:04 AM EDT 10 mg metOLazone (Zaroxolyn) tablet 10 mg 10 mg, Oral, ONCE, 1 dose, On Mon05/05/23 at 1215, Give 30 minutes prior to furosemide, Routine Given 05/05/2023 12:25 PM EDT 10 mg metOLazone (Zaroxolyn) tablet 10 mg 10 mg, Per NG tube, ONCE, 1 dose, On Mon05/09/23 at 1530, Routine Given 05/09/2023 2:47 PM EDT 10 mg metOLazone (Zaroxolyn) tablet 5 mg 5 mg, Oral, ONCE, 1 dose, On Mon04/28/23 at 1115, STAT Given 04/28/2023 11:35 AM EDT 5 mg metOLazone (Zaroxolyn) tablet 5 mg 5 mg, Oral, ONCE, 1 dose, On Mon04/28/23 at 1600, Routine Given 04/28/2023 4:06 PM EDT 5 mg metoprolol (LOPRESSOR) injection 10 mg 10 mg, Intravenous, EVERY 6 HOURS, First dose on Mon04/23/23 at 0600, Until Discontinued Given 04/23/2023 6:13 AM EDT 1 0 mg metoprolol (LOPRESSOR) injection 10 mg 10 mg, Intravenous, EVERY 6 HOURS, First dose on Mon04/23/23 at 1230, Until Discontinued Given 04/23/2023 11:45 AM EDT 10 mg metoprolol (LOPRESSOR) injection 5 mg 5 mg, Intravenous, ONCE, 1 dose, On Mon04/23/23 at 0045, For HR > 60 Given 04/23/2023 12:00 AM EDT 5 mg metoprolol (LOPRESSOR) injection 5 mg 5 mg, Intravenous, ONCE, 1 dose, On Mon04/23/23 at 0115, For persistent HR > 60 Given 04/23/2023 12:54 AM EDT 5 m g metoprolol (LOPRESSOR) injection 5 mg 5 mg, Intravenous, ONCE, 1 dose, On Mon04/26/23 at 1900 Given 04/26/2023 6:17 PM EDT 5 mg metoprolol (LOPRESSOR) injection 5 mg 5 mg, Intravenous, ONCE, 1 dose, On Mon04/27/23 at 1215 Given 04/27/2023 11:29 AM EDT 5 mg metoprolol tartrate (Lopressor) tablet 50 mg 50 mg, Oral, EVERY 6 HOURS SCHEDULED, First dose on Stacie 05/04/23 at 0000, Until Discontinued, Hold for HR < 50bpm and/or SBP < 90mmHg notify team, Routine Given 05/05/2023 12:26 PM EDT 50 mg Given 05/05/2023 5:05 AM EDT 50 mg Given 05/04/2023 11:46 PM EDT 50 mg midazolam (pf) (Versed) (1 mg/mL) injection 2 mg 2 mg, Intravenous, ONCE, 1 dose, On Mon04/23/23 at 1530, As needed for DHT placement, Routine Given 04/23/2023 3:47 PM EDT 2 mg midazolam (pf) (Versed) (1 mg/mL) injection 4 mg 4 mg, Intravenous, ONCE, 1 dose, On Mon05/14/23 at 1745, Routine Given 05/14/2023 5:03 PM EDT 4 mg multivitamin with minerals (Thera M) tablet 1 tablet 1 tablet, Per NG tube, DAILY, First dose on Mon04/18/23 at 1330, Until Discontinued, Routine Given 05/01/2023 9:21 AM EDT 1 tablet Given 04/30/2023 9:17 AM EDT 1 tablet Given 04/29/2023 8:51 AM EDT 1 tablet niCARdipine (Cardene) (0.2 mg/mL) in sodium chloride 200 mL infusion 0-15 mg/hr (0-75 mL/hr), Intravenous, CONTINUOUS, Starting on Mon04/18/23 at 0745, Until Mon04/19/23 at 1026, Call Maintenance Mechanic to discontinue labetaloL if blood pressure is not controlled. Call Maintenance Mechanic if SBP is less than 110 mmHg. Administer if inadequate blood pressure control in 30 minutes despite labetaloL or if labetaloL not ordered. Titrate to a systolic blood pressure (SBP) greater than 130 mmHg and less than 140 mmHg. Start at 5 mg/hr. Increase/decrease by 2.5 mg/hr every 5 minutes until goal reached. Do not exceed 15 mg/hr. Rotate IV site every 12 hours., Routine Rate/Dose Change 04/19/2023 10:26 AM EDT 10 mg/hr 50 mL/hr New Bag 04/19/2023 10:23 AM EDT 15 mg/hr 75 mL/hr Rate/Dose Change 04/19/2023 10:03 AM EDT 15 mg/hr 75 mL/ hr niCARdipine (Cardene) (0.2 mg/mL) in sodium chloride 200 mL infusion 0-15 mg/hr (0-75 mL/hr), Intravenous, CONTINUOUS, Starting on Mon05/02/23 at 1115, Until Mon05/02/23 at 1513, Titrate to SBP greater than 90 and less than 120 mmHg. Start at 5 mg/hour, adjust infusion rate by 2.5 mg/hour every 5 minutes. Dose not to exceed 15 mg/hour. Use if labetalol and/or hydralazine ineffective after 2 hours., Routine Rate/Dose Change 05/02/2023 2:07 PM EDT 7.5 mg/hr 37.5 mL/hr New Bag 05/02/2023 10:38 AM EDT 5 mg/hr 25 mL/hr niCARdipine (Cardene) (0.2 mg/mL) in sodium chloride 200 mL infusion 0-15 mg/hr (0-75 mL/hr), Intravenous, CONTINUOUS PRN, Starting on Mon05/21/23 at 1523, Until Mon06/02/23 at 1453, control blood pressure, Administer if inadequate blood pressure control in 30 minutes despite labetalol and enalaprilat Titrate to systolic blood pressure (SBP) less than 160 mmHg. Start at 5 mg/hr. Increase/decrease by 2.5 mg/hr every 5 minutes until goal reached. Do not exceed 15 mg/hr. Monitor vital signs every 15 minutes for 1 hour after initiation of the niCARdipine infusion and after a dose changes, then every 30 minutes. Rotate IV site every 12 hours., STAT Rate/Dose Change 05/22/2023 2:41 PM EDT 0 mg/hr 0 mL/hr Rate/Dose Change 05/22/2023 11:49 AM EDT 5 mg/hr 25 mL/ hr New Bag 05/22/2023 10:20 AM EDT 7.5 mg/hr 37.5 mL/hr nitroGLYcerin (200 mcg/mL) in dextrose 5% 250 mL infusion 0-200 mcg/min (0-60 mL/hr), Intravenous, CONTINUOUS, Starting on 05/01/23 at 1745, Until Stacie 05/11/23 at 1323, For hypertension. Titrate to keep systolic blood pressure (SBP) less than 140 mmHg. Start at 25 mcg/min. Increase/decrease by 25 mcg/min every 5 minutes until goal reached. Do not exceed 200 mcg/min., Routine Rate/Dose Change 05/11/2023 12:00 PM EDT 25 mcg/min 7.5 mL/hr Rate/Dose Change 05/11/2023 11:30 AM EDT 50 mcg/min 15 mL/ hr Rate/Dose Change 05/11/2023 10:17 AM EDT 75 mcg/min 22.5 m L/hr nitroGLYcerin (200 mcg/mL) in dextrose 5% 250 mL infusion 0-200 mcg/min (0-60 mL/hr), Intravenous, CONTINUOUS, Starting on Stacie 05/11/23 at 1730, Until Mon05/12/23 at 0646, For hypertension. Titrate to keep systolic blood pressure (SBP) less than 140 mmHg. Start at 25 mcg/min. Increase/decrease by 25 mcg/min every 5 minutes until goal reached. Do not exceed 200 mcg/min., Routine Rate/Dose Change 05/12/2023 1:20 AM EDT 25 mcg/min 7.5 mL/hr Rate/Dose Change 05/12/2023 12:17 AM EDT 50 mcg/min 15 mL/ hr Rate/Dose Change 05/11/2023 11:29 PM EDT 75 mcg/min 22.5 m L/hr nitroGLYcerin (200 mcg/mL) in dextrose 5% 250 mL infusion 0-200 mcg/min (0-60 mL/hr), Intravenous, CONTINUOUS, Starting on Mon05/12/23 at 1000, Until Mon05/17/23 at 1324, For hypertension. Titrate to keep systolic blood pressure (SBP) less than 160 mmHg. Start at 25 mcg/min. Increase/decrease by 25 mcg/min every 5 minutes until goal reached. Do not exceed 200 mcg/min. Please notify [facility] staff/provider if holding, Routine Rate/Dose Change 05/17/2023 12:27 PM EDT 50 mcg/min 15 mL/hr Rate/Dose Verify 05/17/2023 12:00 PM EDT 100 mcg/min 30 mL /hr New Bag 05/17/2023 11:03 AM EDT 100 mcg/min 30 mL/hr nitroGLYcerin 50 mg/250 mL (200 mcg/mL) infusion 1 dose, Starting on Stacie 05/11/23 at 1634, Until Stacie 05/11/23 at 1637, Steve Gurrola: cabinet override OLANZapine (ZyPREXA) (5 mg/mL) injection 10 mg 10 mg, Alternative Route- Specify in Admin Instructions, ONCE PRN, 1 dose, Starting on 05/14/23 at 1408, Until Mon05/14/23 at 1504, Agitation, Alternative Route- Intravenous (administer by rapid IV push) Please monitor for cardiac adverse reaction such as QT Prolongation & hypotension. Instructions: add 2.1 ml sterile water to make a 5 mg/ml solution., Routine Given 05/14/2023 3:04 PM EDT 10 mg OLANZapine (ZyPREXA) (5 mg/mL) injection 5 mg 5 mg, Intramuscular, ONCE PRN, 1 dose, Starting on 05/21/23 at 1240, Until 05/21/23 at 1406, Agitation, Please try Haldol first, Please try Haldol first. Alternative Route- Intravenous (administer by rapid IV push). Please monitor for cardiac adverse reaction such as QT Prolongation & hypotension. Instructions: add 2.1 ml sterile water to make a 5 mg/ml solution., Routine Given 05/21/2023 2:06 PM EDT 5 mg ondansetron (pf) (Zofran) (2 mg/mL) injection 4 mg 4 mg, Intravenous, EVERY 8 HOURS PRN, Starting on Mon05/19/23 at 1141, Until 05/21/23 at 1239, Nausea Given 05/19/2023 11:51 AM EDT 4 mg ondansetron (pf) (Zofran) (2 mg/mL) injection 4 mg 4 mg, Intravenous, ONCE, 1 dose, On Stacie 05/25/23 at 1730 Given 05/25/2023 5:19 PM EDT 4 mg ondansetron (pf) (Zofran) (2 mg/mL) injection 4 mg 4 mg, Intravenous, EVERY 8 HOURS PRN, Starting on 05/28/23 at 1123, Until Mon06/02/23 at 1453, Nausea, Vomiting Given 06/02/2023 7:53 AM EDT 4 mg Given 05/31/2023 2:28 PM EDT 4 mg Given 05/30/2023 10:05 AM EDT 4 mg oxyCODONE (Roxicodone) tablet 5 mg 5 mg, Per NG tube, EVERY 6 HOURS SCHEDULED, First dose on 05/06/23 at 1200, Until Discontinued, Routine Given 05/07/2023 5:43 AM EDT 5 mg Given 05/07/2023 12:59 AM EDT 5 mg Given 05/06/2023 5:17 PM EDT 5 mg oxyCODONE (Roxicodone) tablet 5 mg 5 mg, Per NG tube, ONCE, 1 dose, On 05/06/23 at 0915, Routine Given 05/06/2023 8:50 AM EDT 5 mg oxyCODONE (Roxicodone) tablet 5 mg 5 mg, Per NG tube, EVERY 6 HOURS PRN, Starting on 05/07/23 at 1000, Until 05/20/23 at 1924, Pain, Routine Given 05/19/2023 11:53 PM EDT 5 mg Given 05/15/2023 8:10 AM EDT 5 mg Given 05/14/2023 1:35 AM EDT 5 mg perflutren protein-A microsphers (Optison) (0.22 mg/mL) injection 0.5 mL 0.5 mL, Intravenous, ONCE PRN, 1 dose, Starting on Mon05/22/23 at 1421, Until Mon05/22/23 at 1421, for enhancement of sub-optimal echo images, Echo Lab (Intra-Procedure), Routine Given 05/22/2023 2:21 PM EDT 0.5 mLs perflutren protein-A microsphers (Optison) (0.22 mg/mL) injection 3 mL 3 mL, Intravenous, ONCE PRN, 1 dose, Starting on Mon04/19/23 at 1238, Until Mon04/19/23 at 1238, prn, Routine Given 04/19/2023 12:38 PM EDT 3 mLs PHENobarbitaL (Luminal) (130 mg/mL) injection 124.8 mg 124.8 mg (rounded from 125.28 mg = 1.8 mg/kg/dose ? 69.6 kg [place] weight), Intravenous, EVERY 3 HOURS, 2 doses, First dose on Mon04/18/23 at 1645, Last dose on Mon04/18/23 at 1945, Administer as slow IV Push at a rate no more than 50 mg/minute. Hold for RASS Less than -1: Not fully alert, but has sustained (more than 10 seconds) awakening, with eye contact, to voice. Hold for HR Less than 60 bpm. Hold for SBP Less than 90 mmHg. Administer as a slow IV push at a rate not to exceed 50 mg/min., Routine Given 04/18/2023 7:48 PM EDT 124.8 mg Given 04/18/2023 3:47 PM EDT 124.8 mg PHENobarbitaL (Luminal) (130 mg/mL) injection 124.8 mg 124.8 mg (rounded from 125.28 mg = 1.8 mg/kg/dose ? 69.6 kg [place] weight), Intravenous, EVERY 30 MIN PRN, 2 doses, Starting on Mon04/18/23 at 1257, Until Mon04/19/23 at 2108, Agitation, Administer as slow IV Push at a rate no more than 50 mg/minute. Hold for RASS Less than -1: Not fully alert, but has sustained (more than 10 seconds) awakening, with eye contact, to voice. Hold for HR Less than 60 bpm. Hold for SBP Less than 90 mmHg. Administer as a slow IV push at a rate not to exceed 50 mg/min., Routine Given 04/19/2023 9:08 PM EDT 124.8 mg Given 04/19/2023 11:44 AM EDT 124.8 mg PHENobarbitaL (Luminal) (130 mg/mL) injection 124.8 mg 124.8 mg (rounded from 125.28 mg = 1.8 mg/kg/dose ? 69.6 kg [place] weight), Intravenous, EVERY 30 MIN PRN, 2 doses, Starting on Stacie 04/20/23 at 0118, Until 04/22/23 at 1002, Agitation, Administer as slow IV Push at a rate no more than 50 mg/minute. Hold for RASS Less than -1: Not fully alert, but has sustained (more than 10 seconds) awakening, with eye contact, to voice. Hold for HR Less than 60 bpm. Hold for SBP Less than 90 mmHg. Administer as a slow IV push at a rate not to exceed 50 mg/min., Routine Given 04/20/2023 1:25 AM EDT 124.8 mg PHENobarbitaL (Luminal) (130 mg/mL) injection 166.4 mg 166.4 mg (rounded from 167.04 mg = 2.4 mg/kg/dose ? 69.6 kg [place] weight), Intravenous, ONCE, 1 dose, On 04/18/23 at 1345, Administer as slow IV Push at a rate no more than 50 mg/minute. Hold for RASS Less than -1: Not fully alert, but has sustained (more than 10 seconds) awakening, with eye contact, to voice. Hold for HR Less than 60 bpm. Hold for SBP Less than 90 mmHg. Administer as a slow IV push at a rate not to exceed 50 mg/min., Routine Given 04/18/2023 1:14 PM EDT 166.4 mg PHENobarbitaL (Luminal) (130 mg/mL) injection 32.5 mg 32.5 mg, Intravenous, ONCE, 1 dose, On Mon05/08/23 at 1830, Administer as a slow IV push at a rate not to exceed 50 mg/min., Routine Given 05/08/2023 5:41 PM EDT 32.5 mg PHENobarbitaL (Luminal) tablet 16.2 mg 16.2 mg (rounded from 16.704 mg = 0.24 mg/kg/dose ? 69.6 kg [place] weight), Oral, 2 TIMES DAILY, 2 doses, First dose on Mon04/20/23 at 0900, Last dose on Mon04/20/23 at 2100, Hold for RASS Less than -1: Not fully alert, but has sustained (more than 10 seconds) awakening, with eye contact, to voice. Hold for HR Less than 60 bpm. Hold for SBP Less than 90 mmHg., Routine Given 04/20/2023 8:17 PM EDT 16.2 mg Given 04/20/2023 8:26 AM EDT 16.2 mg PHENobarbitaL (Luminal) tablet 32.4 mg 32.4 mg (rounded from 33.408 mg = 0.48 mg/kg/dose ? 69.6 kg [place] weight), Oral, 2 TIMES DAILY, 2 doses, First dose on Mon04/19/23 at 0900, Last dose on Mon04/19/23 at 2100, Hold for RASS Less than -1: Not fully alert, but has sustained (more than 10 seconds) awakening, with eye contact, to voice. Hold for HR Less than 60 bpm. Hold for SBP Less than 90 mmHg., Routine Given 04/19/2023 8:43 PM EDT 32.4 mg Given 04/19/2023 8:28 AM EDT 32.4 mg PHENobarbitaL (Luminal) tablet 8.1 mg 8.1 mg (rounded from 8.352 mg = 0.12 mg/kg/dose ? 69.6 kg [place] weight), Oral, 2 TIMES DAILY, 2 doses, First dose on Mon04/21/23 at 0900, Last dose on Mon04/21/23 at 2100, Hold for RASS Less than -1: Not fully alert, but has sustained (more than 10 seconds) awakening, with eye contact, to voice. Hold for HR Less than 60 bpm. Hold for SBP Less than 90 mmHg., Routine Given 04/21/2023 8:37 PM EDT 8.1 mg Given 04/21/2023 8:56 AM EDT 8.1 mg PHENYLephrine (Javon-Synephrine) (80 mcg/mL) in sodium chloride 0.9% 250 mL infusion 0-180 mcg/min (0-135 mL/hr), Intravenous, CONTINUOUS, Starting on Stacie 04/27/23 at 1430, Until 05/01/23 at 1955, Titrate to keep MAP greater than 60 mmHg. Start at 50 mcg/min. Increase/decrease by 25 mcg/min every 10 minutes until goal reached. Do not exceed 180 mcg/min. Warning Vesicant/Irritant Medication Per the Vasopressor Administration Policy, [place] 2657: A central line must be placed for the administration of vasopressor infusions lasting longer than 8 hours. Warning Vesicant/Irritant Medication Rate/Dose Verify 04/30/2023 9:00 PM EDT 25 mcg/min 18.8 mL/hr Rate/Dose Verify 04/30/2023 8:00 PM EDT 25 mcg/min 18.8 mL /hr Rate/Dose Verify 04/30/2023 6:44 PM EDT 25 mcg/min 18.8 mL /hr PHENYLephrine (Javon-Synephrine) 20 mg/250 mL (80 mcg/mL) infusion 1 dose, Starting on Stacie 04/27/23 at 1214, Until Stacie 04/27/23 at 1357, JAZMIN CRISOSTOMO: cabinet override Per the Vasopressor Administration Policy, [place] 265[address]: A central line must be placed for the administration of vasopressor infusions lasting longer than 8 hours. Warning Vesicant/Irritant Medication piperacillin-tazobactam (Zosyn) 3.375 g vial attach to sodium chloride 0.9% 50 mL Mini-Bag Plus 3.375 g, Intravenous, EVERY 8 HOURS, 21 doses, First dose on 04/30/23 at 1600, Last dose on Mon05/07/23 at 0800, Administer over 4 Hours, Warning Vesicant/Irritant Medication Do not administer or Y-site with lactated ringers., Indication for (Active or Suspected): Pneumonia ([facility]) New Bag 05/07/2023 8:17 AM EDT 3.375 g 12.5 mL/hr New Bag 05/07/2023 12:59 AM EDT 3.375 g 12.5 mL/hr New Bag 05/06/2023 3:41 PM EDT 3.375 g 12.5 mL/hr polyethylene glycoL (Miralax) packet 17 g 17 g, Oral, DAILY, First dose (after last modification) on Mon04/24/23 at 1515, Until Discontinued, Routine Given 04/29/2023 8:51 AM EDT 17 g Given 04/28/2023 8:33 AM EDT 17 g Given 04/27/2023 8:08 AM EDT 17 g polyethylene glycoL (Miralax) packet 17 g 17 g, Per NG tube, DAILY, First dose (after last modification) on Mon04/30/23 at 0900, Until Discontinued, Routine Given 04/30/2023 9:15 AM EDT 17 g polyethylene glycoL (Miralax) packet 17 g 17 g, Per NG tube, 2 TIMES DAILY, First dose (after last modification) on Mon04/30/23 at 2100, Until Discontinued, Routine Given 05/02/2023 8:13 AM EDT 17 g Given 05/01/2023 9:40 PM EDT 17 g Given 05/01/2023 9:15 AM EDT 17 g polyethylene glycoL (Miralax) packet 17 g 17 g, Oral, DAILY PRN, Starting on Mon05/03/23 at 0947, Until 05/20/23 at 1924, Constipation, Give if no BM within last 24 hr. Give concomitantly with any scheduled bowel medications ordered. , Routine Given 05/03/2023 5:18 PM EDT 17 g polyethylene glycoL (Miralax) packet 17 g 17 g, Oral, DAILY PRN, Starting on Mon05/21/23 at 1024, Until Mon06/02/23 at 1453, Constipation, Give if no BM within last 24 hr. Give concomitantly with any scheduled bowel medications ordered. , Routine polyethylene glycoL (Miralax) packet 17 g 17 g, Oral, DAILY, First dose on Mon05/23/23 at 0900, Until Discontinued, Routine Given 06/02/2023 9:19 AM EDT 17 g Given 05/31/2023 9:00 AM EDT 17 g Given 05/29/2023 8:57 AM EDT 17 g potassium chloride 10 mEq in sterile water 100 mL infusion 10 mEq, Intravenous, EVERY 1 HOUR PRN, Starting on Mon04/18/23 at 0954, Until Mon04/21/23 at 0119, Administer over 60 Minutes, hypokalemia, Administer Administer 6 times 10 meq/100 mL bags, each over 30-60 minutes for serum potassium (mMol/L) of 2.8 - 3.2 See instructions for Potassium Protocol in online policies. New Bag 04/18/2023 6:23 PM EDT 10 mEq 100 mL/h r New Bag 04/18/2023 5:22 PM EDT 10 mEq 100 mL/hr New Bag 04/18/2023 4:16 PM EDT 10 mEq 100 mL/hr potassium chloride 10 mEq in sterile water 100 mL infusion 10 mEq, Intravenous, EVERY 1 HOUR PRN, Starting on Mon04/18/23 at 0954, Until Mon04/21/23 at 0119, Administer over 60 Minutes, hypokalemia, Administer 4 times 10 meq/100 mL bags, each over 30-60 minutes for serum potassium (mMol/L) of 3.3 - 3.8 See instructions for Potassium Protocol in online policies. New Bag 04/20/2023 5:42 AM EDT 10 mEq 100 mL/h r New Bag 04/20/2023 3:01 AM EDT 10 mEq 100 mL/hr New Bag 04/20/2023 1:56 AM EDT 10 mEq 100 mL/hr potassium chloride 10 mEq in sterile water 100 mL infusion 10 mEq, Intravenous, EVERY 1 HOUR PRN, Starting on Mon04/18/23 at 0954, Until Mon04/21/23 at 0119, Administer over 60 Minutes, hypokalemia, Administer 2 times 10 meq/100 mL bags, each over 30-60 minutes for serum potassium (mMol/L) of 3.9 - 4 See instructions for Potassium Protocol in online policies. New Bag 04/20/2023 4:32 AM EDT 10 mEq 100 mL/h r New Bag 04/19/2023 6:41 PM EDT 10 mEq 100 mL/hr Restarted 04/19/2023 4:51 PM EDT 100 mL/hr potassium chloride 10 mEq in sterile water 100 mL infusion 10 mEq, Intravenous, EVERY 1 HOUR PRN, Starting on 05/06/23 at 0405, Until 05/06/23 at 1016, Administer over 60 Minutes, hypokalemia, Administer 4 times 10 meq/100 mL bags, each over 30-60 minutes for serum potassium (mMol/L) of 3.3 - 3.8 See instructions for Potassium Protocol in online policies. New Bag 05/06/2023 9:14 AM EDT 10 mEq 100 mL/hr potassium chloride 20 mEq in sterile water 100 mL infusion 20 mEq, Intravenous, EVERY 1 HOUR PRN, Starting on Mon04/21/23 at 2145, Until 04/22/23 at 1002, Administer over 60 Minutes, hypokalemia, Administer 2 doses for a serum potassium (mMol/L) of 3.3 - 3.8 potassium chloride 20 meq/100 mL bags must be infused through a CENTRAL LINE New Bag 04/21/2023 11:56 PM EDT 20 mEq 100 mL/ hr New Bag 04/21/2023 10:38 PM EDT 20 mEq 100 mL/hr potassium chloride 20 mEq in sterile water 100 mL infusion 20 mEq, Intravenous, EVERY 1 HOUR PRN, Starting on Mon04/23/23 at 1714, Until Mon04/26/23 at 2216, Administer over 60 Minutes, hypokalemia, Administer 2 doses for a serum potassium (mMol/L) of 3.3 - 3.8 potassium chloride 20 meq/100 mL bags must be infused through a CENTRAL LINE New Bag 04/26/2023 9:00 AM EDT 20 mEq 100 mL/hr New Bag 04/23/2023 6:29 PM EDT 20 mEq 100 mL/hr New Bag 04/23/2023 5:22 PM EDT 20 mEq 100 mL/hr potassium chloride 20 mEq in sterile water 100 mL infusion 20 mEq, Intravenous, EVERY 1 HOUR PRN, Starting on 04/23/23 at 1714, Until Mon04/26/23 at 2216, Administer over 60 Minutes, hypokalemia, Administer 1 dose for a serum potassium (mMol/L) of 3.9 - 4 potassium chloride 20 meq/100 mL bags must be infused through a CENTRAL LINE New Bag 04/26/2023 10:08 AM EDT 20 mEq 100 mL/hr New Bag 04/25/2023 3:07 PM EDT 20 mEq 100 mL/hr potassium chloride 20 mEq in sterile water 100 mL infusion 20 mEq, Intravenous, EVERY 1 HOUR PRN, Starting on 05/06/23 at 1014, Until Mon05/12/23 at 0659, Administer over 60 Minutes, hypokalemia, Administer 2 doses for a serum potassium (mMol/L) of 3.3 - 3.8 potassium chloride 20 meq/100 mL bags must be infused through a CENTRAL LINE New Bag 05/09/2023 9:56 AM EDT 20 mEq 100 mL/hr New Bag 05/09/2023 8:41 AM EDT 20 mEq 100 mL/hr New Bag 05/06/2023 10:22 AM EDT 20 mEq 100 mL/hr potassium chloride 20 mEq in sterile water 100 mL infusion 20 mEq, Intravenous, EVERY 1 HOUR PRN, Starting on 05/06/23 at 1014, Until Mon05/12/23 at 0659, Administer over 60 Minutes, hypokalemia, Administer 1 dose for a serum potassium (mMol/L) of 3.9 - 4 potassium chloride 20 meq/100 mL bags must be infused through a CENTRAL LINE New Bag 05/11/2023 8:44 AM EDT 20 mEq 100 mL/hr New Bag 05/09/2023 2:53 PM EDT 20 mEq 100 mL/hr potassium chloride ER (Klor-Con M) crystal tablet 20 mEq 20 mEq, Per NG tube, EVERY 4 HOURS PRN, Starting on Mon04/26/23 at 2215, Until 05/20/23 at 1924, hypokalemia, Administer for serum potassium (mMol/L) of 3.9 - 4 potassium chloride ER particle/crystal tablets (Klor-Con M) may be broken in half and each half swallowed separately. Tablets can be dissolved in ~4 ounces of water; allow ~2 minutes to dissolve, stir well and drink immediately. Do not crush, chew, or suck on tablet., Routine Given 05/07/2023 2:49 AM EDT 20 mEq potassium chloride ER (Klor-Con M) crystal tablet 20 mEq 20 mEq, Per NG tube, EVERY 4 HOURS PRN, Starting on Mon05/21/23 at 1038, Until Mon06/02/23 at 1453, hypokalemia, Administer for serum potassium (mMol/L) of 3.9 - 4 potassium chloride ER particle/crystal tablets (Klor-Con M) may be broken in half and each half swallowed separately. Tablets can be dissolved in ~4 ounces of water; allow ~2 minutes to dissolve, stir well and drink immediately. Do not crush, chew, or suck on tablet., Routine potassium chloride ER (Klor-Con M) crystal tablet 40 mEq 40 mEq, Oral, EVERY 4 HOURS PRN, Starting on Mon04/21/23 at 0118, Until Mon04/21/23 at 2145, hypokalemia, Administer for serum potassium (mMol/L) of 3.6 - 3.8 potassium chloride ER particle/crystal tablets (Klor-Con M) may be broken in half and each half swallowed separately. Tablets can be dissolved in ~4 ounces of water; allow ~2 minutes to dissolve, stir well and drink immediately. Do not crush, chew, or suck on tablet., Routine Given 04/21/2023 12:02 PM EDT 40 mEq Given 04/21/2023 6:27 AM EDT 40 mEq Given 04/21/2023 1:56 AM EDT 40 mEq potassium chloride ER (Klor-Con M) crystal tablet 40 mEq 40 mEq, Per NG tube, EVERY 4 HOURS PRN, Starting on Mon04/26/23 at 2215, Until 05/20/23 at 1924, hypokalemia, Administer for serum potassium (mMol/L) of 3.3 - 3.8 potassium chloride ER particle/crystal tablets (Klor-Con M) may be broken in half and each half swallowed separately. Tablets can be dissolved in ~4 ounces of water; allow ~2 minutes to dissolve, stir well and drink immediately. Do not crush, chew, or suck on tablet., Routine Given 05/13/2023 4:08 PM EDT 40 mEq Given 05/08/2023 2:54 PM EDT 40 mEq Given 05/08/2023 2:59 AM EDT 40 mEq potassium chloride ER (Klor-Con M) crystal tablet 40 mEq 40 mEq, Oral, EVERY 4 HOURS PRN, Starting on Mon05/21/23 at 1038, Until Mon06/02/23 at 1453, hypokalemia, Administer for serum potassium (mMol/L) of 3.3 - 3.8 potassium chloride ER particle/crystal tablets (Klor-Con M) may be broken in half and each half swallowed separately. Tablets can be dissolved in ~4 ounces of water; allow ~2 minutes to dissolve, stir well and drink immediately. Do not crush, chew, or suck on tablet., Routine potassium phosphate 15 mMol in sodium chloride 0.9% 250 mL infusion 15 mmol, Intravenous, ONCE, 1 dose, On Stacie 04/20/23 at 0245, Administer over 4 Hours, Administer over 4-6 hours New Bag 04/20/2023 6:47 AM EDT 15 mmol 62.5 mL/hr potassium, sodium phosphates (Neutra-Phos) 280-160-250 mg oral packet 3 g 3 g, Per NG tube, 4 TIMES DAILY, 8 doses, First dose on 04/22/23 at 0415, Last dose on 04/23/23 at 1700, Take with full glass of water, Routine Given 04/23/2023 5:30 PM EDT 3 g Given 04/22/2023 8:32 AM EDT 3 g Given 04/22/2023 3:54 AM EDT 3 g propofoL (Diprivan) (10 mg/mL) bolus from infusion 10 mg 10 mg, Intravenous, EVERY 10 MIN PRN, Starting on Tu04/18/23 at 0725, Until 04/19/23 at 0911, SAT resedation, Administer bolus dose of propofoL of 10 mg. PropofoL bolus may be repeated for an additional 10 mg. Wait 5 to 10 minutes to see onset effect from 1st bolus. Do not administer more than 20 mg in a 4 hour period., Routine Bolus from Infusion 04/19/2023 8:39 AM EDT 10 mg Bolus from Infusion 04/19/2023 8:17 AM EDT 10 mg Bolus from Infusion 04/19/2023 7:50 AM EDT 10 mg propofoL (Diprivan) (10 mg/mL) bolus from infusion 10 mg 10 mg, Intravenous, EVERY 10 MIN PRN, Starting on Mon04/21/23 at 1541, Until 04/22/23 at 1203, SAT resedation, Administer bolus dose of propofoL of 10 mg. PropofoL bolus may be repeated for an additional 10 mg. Wait 5 to 10 minutes to see onset effect from 1st bolus. Do not administer more than 20 mg in a 4 hour period., Routine Bolus from Infusion 04/21/2023 6:56 PM EDT 10 mg Bolus from Infusion 04/21/2023 6:27 PM EDT 10 mg Bolus from Infusion 04/21/2023 3:46 PM EDT 10 mg propofoL (Diprivan) (10 mg/mL) bolus from infusion 10 mg 10 mg, Intravenous, EVERY 10 MIN PRN, Starting on Stacie 04/27/23 at 1341, Until Mon05/05/23 at 1429, SAT resedation, Administer bolus dose of propofoL of 10 mg. PropofoL bolus may be repeated for an additional 10 mg. Wait 5 to 10 minutes to see onset effect from 1st bolus. Do not administer more than 20 mg in a 4 hour period., Routine Bolus from Infusion 05/02/2023 10:26 AM EDT 10 mg Bolus from Infusion 05/02/2023 10:05 AM EDT 10 mg Bolus from Infusion 05/01/2023 10:33 PM EDT 10 mg propofoL (Diprivan) (10 mg/mL) infusion 0-50 mcg/kg/min ? 111.8 kg (0-33.54 mL/hr, rounded to 0-33.5 mL/hr), Intravenous, CONTINUOUS, Starting on Tu04/18/23 at 0815, Until Mon04/19/23 at 0911, Titrate to sedation level of RASS Goal (-)1 to 0 . Start at 20 mcg/kg/min. Increase/decrease 10 mcg/kg/min every 3 minutes until goal reached. Once stable, reassess patient every 30 minutes. Do not exceed 50 mcg/kg/minute. Change rate only after assessing and documenting RASS. Reassess sedation scores within 30 minutes after every rate change. If under sedated, increase rate by 10 mcg/kg/min. If over sedated, hold sedative until target RASS (-)1 to 0 achieved and then restart at 50% of previous rate. Call pump house engineer if goal not achieved at maximum rate. If SAT is ordered and if patient meets criteria for Spontaneous Awakening Trial, titrate per protocol., Routine New Bag 04/19/2023 8:59 AM EDT 40 mcg/kg/min 26.8 mL/hr Rate/Dose Change 04/19/2023 8:55 AM EDT 40 mcg/kg/min 26.8 mL/hr Rate/Dose Verify 04/19/2023 8:00 AM EDT 30 mcg/kg/min 20.1 mL/hr propofoL (Diprivan) (10 mg/mL) infusion 0-50 mcg/kg/min ? 88.4 kg Adjusted weight (0-26.52 mL/hr, rounded to 0-26.5 mL/hr), Intravenous, CONTINUOUS, Starting on Stacie 04/20/23 at 0430, Until Mon04/21/23 at 0921, Titrate to sedation level of RASS Goal (-)1 to 0 . Start at 20 mcg/kg/min. Increase/decrease 10 mcg/kg/min every 3 minutes until goal reached. Once stable, reassess patient every 30 minutes. Do not exceed 50 mcg/kg/minute. Change rate only after assessing and documenting RASS. Reassess sedation scores within 30 minutes after every rate change. If under sedated, increase rate by 10 mcg/kg/min. If over sedated, hold sedative until target RASS (-)1 to 0 achieved and then restart at 50% of previous rate. Call pump house engineer if goal not achieved at maximum rate. If SAT is ordered and if patient meets criteria for Spontaneous Awakening Trial, titrate per protocol., Routine Rate/Dose Change 04/21/2023 9:18 AM EDT 10 mcg/kg/min 5.3 mL/hr Rate/Dose Verify 04/21/2023 7:49 AM EDT 20 mcg/kg/min 10.6 mL/hr Rate/Dose Change 04/21/2023 5:35 AM EDT 20 mcg/kg/min 10.6 mL/hr propofoL (Diprivan) (10 mg/mL) infusion 0-50 mcg/kg/min ? 88.4 kg Adjusted weight (0-26.52 mL/hr, rounded to 0-26.5 mL/hr), Intravenous, CONTINUOUS, Starting on Mon04/21/23 at 1630, Until 04/22/23 at 1203, Titrate to sedation level of RASS Goal (-)1 to 0 . Start at 20 mcg/kg/min. Increase/decrease 10 mcg/kg/min every 3 minutes until goal reached. Once stable, reassess patient every 30 minutes. Do not exceed 50 mcg/kg/minute. Change rate only after assessing and documenting RASS. Reassess sedation scores within 30 minutes after every rate change. If under sedated, increase rate by 10 mcg/kg/min. If over sedated, hold sedative until target RASS (-)1 to 0 achieved and then restart at 50% of previous rate. Call pump house engineer if goal not achieved at maximum rate. If SAT is ordered and if patient meets criteria for Spontaneous Awakening Trial, titrate per protocol., Routine Rate/Dose Verify 04/22/2023 12:00 PM EDT 20 mcg/kg/min 10.6 mL/hr Rate/Dose Verify 04/22/2023 10:00 AM EDT 20 mcg/kg/min 10. 6 mL/hr Rate/Dose Change 04/22/2023 8:09 AM EDT 20 mcg/kg/min 10.6 mL/hr propofoL (Diprivan) (10 mg/mL) infusion 0-50 mcg/kg/min ? 90.8 kg Adjusted weight (0-27.24 mL/hr, rounded to 0-27.2 mL/hr), Intravenous, CONTINUOUS, Starting on Stacie 04/27/23 at 1430, Until Mon05/05/23 at 1429, Titrate to sedation level of RASS Goal (-)1 to 0 . Start at 20 mcg/kg/min. Increase/decrease 10 mcg/kg/min every 3 minutes until goal reached. Once stable, reassess patient every 30 minutes. Do not exceed 50 mcg/kg/minute. Change rate only after assessing and documenting RASS. Reassess sedation scores within 30 minutes after every rate change. If under sedated, increase rate by 10 mcg/kg/min. If over sedated, hold sedative until target RASS (-)1 to 0 achieved and then restart at 50% of previous rate. Call pump house engineer if goal not achieved at maximum rate. If SAT is ordered and if patient meets criteria for Spontaneous Awakening Trial, titrate per protocol., Routine Rate/Dose Verify 05/04/2023 4:00 AM EDT 10 mcg/kg/min 5.4 mL/hr Rate/Dose Verify 05/04/2023 2:00 AM EDT 10 mcg/kg/min 5.4 mL/hr Rate/Dose Verify 05/04/2023 12:00 AM EDT 10 mcg/kg/min 5.4 mL/hr propofoL (Diprivan) 10 mg/mL infusion 1 dose, Starting on Mon04/18/23 at 0641, Until Mon04/18/23 at 0710, Melissa Blakely: cabinet override protein powder 1 Scoop, Per NG tube, 3 TIMES DAILY, First dose on Mon05/01/23 at 1500, Until Discontinued, Routine Given 05/07/2023 9:00 PM EDT 1 Scoop Given 05/07/2023 2:53 PM EDT 1 Scoop Given 05/07/2023 8:17 AM EDT 1 Scoop QUEtiapine (SEROquel) tablet 100 mg 100 mg, Per NG tube, NIGHTLY, First dose (after last modification) on Mon05/08/23 at 2100, Until Discontinued, Routine Given 05/08/2023 9:27 PM EDT 100 mg QUEtiapine (SEROquel) tablet 100 mg 100 mg, Per NG tube, NIGHTLY, First dose (after last modification) on Mon05/12/23 at 2100, Until Discontinued, Hold for RASS (-)2 to (-)5., Routine Given 05/12/2023 8:29 PM EDT 100 mg QUEtiapine (SEROquel) tablet 100 mg 100 mg, Per NG tube, NIGHTLY, First dose (after last modification) on Mon05/13/23 at 1900, Until Discontinued, Hold for RASS (-)2 to (-)5., Routine Given 05/19/2023 6:48 PM EDT 100 mg Given 05/18/2023 6:11 PM EDT 100 mg Given 05/17/2023 5:45 PM EDT 100 mg QUEtiapine (SEROquel) tablet 100 mg 100 mg, Oral, NIGHTLY, First dose (after last modification) on Mon05/21/23 at 1900, Until Discontinued, Hold for RASS (-)2 to (-)5., Routine Given 05/29/2023 8:33 PM EDT 100 mg Given 05/28/2023 6:17 PM EDT 100 mg Given 05/27/2023 6:08 PM EDT 100 mg QUEtiapine (SEROquel) tablet 12.5 mg 12.5 mg, Per NG tube, 2 TIMES DAILY PRN, Starting on Mon04/24/23 at 1655, Until Mon04/25/23 at 0741, Agitation, Routine Given 04/24/2023 8:11 PM EDT 12.5 mg QUEtiapine (SEROquel) tablet 12.5 mg 12.5 mg, Per NG tube, 2 TIMES DAILY, First dose (after last modification) on Mon04/25/23 at 0900, Until Discontinued, Routine Given 04/27/2023 8:07 AM EDT 12.5 mg Given 04/26/2023 8:41 PM EDT 12.5 mg Given 04/26/2023 8:30 AM EDT 12.5 mg QUEtiapine (SEROquel) tablet 12.5 mg 12.5 mg, Oral, DAILY PRN, Starting on Mon04/25/23 at 0735, Until 04/29/23 at 1254, Agitation, Routine Given 04/26/2023 9:56 PM EDT 12.5 mg Given 04/25/2023 12:58 PM EDT 12.5 mg QUEtiapine (SEROquel) tablet 12.5 mg 12.5 mg, Per NG tube, DAILY PRN, Starting on Mon04/29/23 at 1253, Until Mon05/04/23 at 1050, Agitation, Routine Given 05/03/2023 9:15 PM EDT 12.5 mg Given 05/02/2023 5:17 AM EDT 12.5 mg QUEtiapine (SEROquel) tablet 12.5 mg 12.5 mg, Per NG tube, NIGHTLY, First dose (after last modification) on Mon05/04/23 at 2100, Until Discontinued, Routine Given 05/05/2023 8:09 PM EDT 12.5 mg Given 05/04/2023 8:22 PM EDT 12.5 mg QUEtiapine (SEROquel) tablet 12.5 mg 12.5 mg, Oral, ONCE, 1 dose, On Mon05/04/23 at 1800, Routine Given 05/04/2023 5:18 PM EDT 12.5 mg QUEtiapine (SEROquel) tablet 12.5 mg 12.5 mg, Oral, 3 TIMES DAILY PRN, Starting on Mon05/17/23 at 0946, Until 05/20/23 at 1924, Agitation, Routine Given 05/18/2023 8:50 PM EDT 12.5 mg Given 05/17/2023 2:41 PM EDT 12.5 mg QUEtiapine (SEROquel) tablet 12.5 mg 12.5 mg, Oral, 3 TIMES DAILY PRN, Starting on Mon05/21/23 at 1024, Until Mon06/02/23 at 1453, Agitation, Routine Given 05/27/2023 3:30 PM EDT 12.5 mg Given 05/24/2023 10:19 AM EDT 12.5 mg Given 05/23/2023 11:43 PM EDT 12.5 mg QUEtiapine (SEROquel) tablet 25 mg 25 mg, Per NG tube, ONCE, 1 dose, On Mon04/24/23 at 1200, Routine Given 04/24/2023 11:21 AM EDT 25 mg QUEtiapine (SEROquel) tablet 25 mg 25 mg, Per NG tube, NIGHTLY PRN, Starting on Mon05/04/23 at 1051, Until Mon05/08/23 at 0701, Agitation, Routine Given 05/07/2023 10:46 PM EDT 25 mg Given 05/06/2023 3:44 AM EDT 25 mg Given 05/04/2023 11:46 PM EDT 25 mg QUEtiapine (SEROquel) tablet 25 mg 25 mg, Oral, ONCE, 1 dose, On Mon05/05/23 at 0200, STAT Given 05/05/2023 1:26 AM EDT 25 mg QUEtiapine (SEROquel) tablet 25 mg 25 mg, Oral, ONCE, 1 dose, On Mon05/05/23 at 1515, Routine Given 05/05/2023 2:37 PM EDT 25 mg QUEtiapine (SEROquel) tablet 25 mg 25 mg, Oral, DAILY, First dose on Mon05/06/23 at 1130, Until Discontinued, Routine Given 05/07/2023 8:15 AM EDT 25 mg Given 05/06/2023 11:33 AM EDT 25 mg QUEtiapine (SEROquel) tablet 25 mg 25 mg, Per NG tube, 3 TIMES DAILY PRN, Starting on Mon05/08/23 at 0706, Until Mon05/11/23 at 1255, Agitation, Routine Given 05/11/2023 1:41 AM EDT 25 mg Given 05/10/2023 5:00 PM EDT 25 mg Given 05/09/2023 11:18 PM EDT 25 mg QUEtiapine (SEROquel) tablet 25 mg 25 mg, Per NG tube, ONCE, 1 dose, On Mon05/17/23 at 2315, Routine Given 05/17/2023 10:44 PM EDT 25 mg QUEtiapine (SEROquel) tablet 25-50 mg 25-50 mg, Per NG tube, 3 TIMES DAILY PRN, Starting on Mon05/11/23 at 1300, Until Mon05/15/23 at 1741, Agitation, Give 25mg for RASS +1 to +2. Give 50mg for RASS +3 to +4. May give in addition to scheduled Seroquel dose., Routine Given 05/15/2023 8:10 AM EDT 50 mg Given 05/15/2023 3:59 AM EDT 25 mg Given 05/13/2023 11:56 PM EDT 50 mg QUEtiapine (SEROquel) tablet 50 mg 50 mg, Per NG tube, 2 TIMES DAILY, First dose on Mon04/19/23 at 1545, Until Discontinued, Routine Given 04/19/2023 3:03 PM EDT 50 mg QUEtiapine (SEROquel) tablet 50 mg 50 mg, Per NG tube, DAILY, First dose (after last modification) on Mon05/08/23 at 1030, Until Discontinued, Routine Given 05/09/2023 8:30 AM EDT 50 mg Given 05/08/2023 9:51 AM EDT 50 mg QUEtiapine (SEROquel) tablet 50 mg 50 mg, Per NG tube, EVERY 8 HOURS, First dose (after last modification) on Mon05/09/23 at 2200, Until Discontinued, Hold for RASS (-)2 to (-)5, Routine Given 05/11/2023 6:23 AM EDT 50 mg Given 05/10/2023 9:52 PM EDT 50 mg Given 05/10/2023 1:03 PM EDT 50 mg QUEtiapine (SEROquel) tablet 50 mg 50 mg, Oral, ONCE, 1 dose, On Mon05/10/23 at 0115, Routine Given 05/10/2023 12:26 AM EDT 50 mg QUEtiapine (SEROquel) tablet 50 mg 50 mg, Per NG tube, NIGHTLY, First dose (after last modification) on Mon05/11/23 at 2100, Until Discontinued, Hold for RASS (-)2 to (-)5., Routine Given 05/11/2023 8:24 PM EDT 50 mg QUEtiapine (SEROquel) tablet 75 mg 75 mg, Per NG tube, NIGHTLY, First dose (after last modification) on Mon05/06/23 at 2100, Until Discontinued, Routine Given 05/07/2023 8:32 PM EDT 75 mg Given 05/06/2023 9:36 PM EDT 75 mg QUEtiapine (SEROquel) tablet 75 mg 75 mg, Oral, NIGHTLY, First dose (after last modification) on Mon05/30/23 at 1900, Until Discontinued, Hold for RASS (-)2 to (-)5., Routine Given 06/01/2023 8:35 PM EDT 75 mg Given 05/31/2023 6:42 PM EDT 75 mg Given 05/30/2023 8:33 PM EDT 75 mg senna-docusate (Pericolace) 8.6-50 mg per tablet 1 tablet 1 tablet, Oral, 2 TIMES DAILY, First dose on Mon05/23/23 at 0900, Until Discontinued, Routine Given 06/02/2023 9:18 AM EDT 1 tablet Given 06/01/2023 8:35 PM EDT 1 tablet Given 06/01/2023 9:19 AM EDT 1 tablet senna-docusate (Pericolace) 8.6-50 mg per tablet 2 tablet 2 tablet, Per NG tube, 2 TIMES DAILY, First dose (after last modification) on Mon04/19/23 at 0900, Until Discontinued, Administer to achieve 1 soft bowel movement daily without straining , Routine Given 04/27/2023 8:05 A M EDT 2 tablets Given 04/26/2023 8:40 PM EDT 2 tablets Given 04/26/2023 8:32 AM EDT 2 tablets senna-docusate (Pericolace) 8.6-50 mg per tablet 2 tablet 2 tablet, Per NG tube, 2 TIMES DAILY, First dose on Mon04/27/23 at 2100, Until Discontinued, Hold for loose stool. , Routine Given 05/02/2023 8:13 AM EDT 2 tablets Given 05/01/2023 9:39 PM EDT 2 tablets Given 05/01/2023 9:15 AM EDT 2 tablets senna-docusate (Pericolace) 8.6-50 mg per tablet 2 tablet 2 tablet, Per NG tube, 2 TIMES DAILY, First dose (after last modification) on Stacie 05/04/23 at 1145, Until Discontinued, Hold for loose stool. , Routine Given 05/10/2023 8:38 AM EDT 2 tablets Given 05/09/2023 8:30 AM EDT 2 tablets Given 05/08/2023 9:50 AM EDT 2 tablets senna-docusate (Pericolace) 8.6-50 mg per tablet 2 tablet 2 tablet, Oral, 2 TIMES DAILY PRN, Starting on Mon05/21/23 at 1039, Until Mon06/02/23 at 1453, Constipation, Hold for loose stool. , Routine simethicone (Mylicon) (40 mg/0.6mL) oral liquid 40 mg 40 mg, Per NG tube, EVERY 6 HOURS, 8 doses, First dose on Mon04/29/23 at 1830, Last dose on Mon05/01/23 at 1230, Routine Given 05/01/2023 12:30 PM EDT 40 mg Given 05/01/2023 5:55 AM EDT 40 mg Given 04/30/2023 11:59 PM EDT 40 mg simethicone (Mylicon) (40 mg/0.6mL) oral liquid 40 mg 40 mg, Oral, 4 TIMES DAILY, First dose on Mon05/03/23 at 1045, Until Discontinued, Routine Given 05/07/2023 8:33 PM EDT 40 mg Given 05/07/2023 5:09 PM EDT 40 mg Given 05/07/2023 12:19 PM EDT 40 mg simethicone (Mylicon) (40 mg/0.6mL) oral liquid 40 mg 40 mg, Per NG tube, 4 TIMES DAILY, First dose (after last modification) on Mon05/08/23 at 0900, Until Discontinued, Routine Given 05/20/2023 2:39 PM EDT 40 mg Given 05/19/2023 9:11 PM EDT 40 mg Given 05/19/2023 4:28 PM EDT 40 mg simethicone (Mylicon) (40 mg/0.6mL) oral liquid 40 mg 40 mg, Oral, 4 TIMES DAILY, First dose (after last modification) on Mon05/21/23 at 1300, Until Discontinued, Routine Given 05/24/2023 9:15 PM EDT 40 mg Given 05/23/2023 8:14 PM EDT 40 mg Given 05/23/2023 5:14 PM EDT 40 mg simethicone (Mylicon) (40 mg/0.6mL) oral liquid 40 mg 40 mg, Oral, EVERY 6 HOURS PRN, Starting on Stacie 05/25/23 at 1430, Until Mon06/02/23 at 1453, Cramping, Routine sodium bicarbonate tablet 650 mg 650 mg, Per NG tube, DAILY PRN, Starting on 05/06/23 at 0052, Until 05/20/23 at 1924, Heartburn, feeding tube clearance, Take one 650 mg tablet (7.7 meq of sodium bicarbonate), crush tablet, and mix with 10 mL of sterile water. This will take approximately 3 to 5 minutes. There will be some precipitate in the water, likely from the tablet excipients., Routine Given 05/20/2023 9:18 AM EDT 650 mg Given 05/06/2023 1:58 AM EDT 650 mg sodium chloride (NebuSal) 3 % nebulizer solution 4 mL 4 mL, Nebulization, EVERY 4 HOURS, First dose on Mon04/21/23 at 0600, Until Discontinued, Routine Given 05/08/2023 11:23 AM EDT 4 mLs Given 05/08/2023 8:37 AM EDT 4 mLs Given 05/08/2023 5:27 AM EDT 4 mLs sodium chloride (NebuSal) 3 % nebulizer solution 4 mL 4 mL, Nebulization, EVERY 4 HOURS PRN, Starting on 05/08/23 at 1630, Until Mon06/02/23 at 1453, Cough, Routine sodium chloride 0.9 % (flush) (BD PosiFlush Normal Saline 0.9) flush 5 mL 5 mL, Intravenous, 2 TIMES DAILY, First dose on Mon04/18/23 at 0900, Until Discontinued, Routine Given 04/19/2023 8:34 AM EDT 5 mLs Given 04/18/2023 8:05 PM EDT 5 mLs Given 04/18/2023 8:38 AM EDT 5 mLs sodium chloride 0.9% 500 mL IV bolus Intravenous, ONCE, 1 dose, On 04/18/23 at 2300 New Bag 04/18/2023 10:13 PM EDT sodium chloride 0.9% 500 mL IV bolus at 500 mL/hr, Intravenous, ONCE, 1 dose, On 05/20/23 at 1045 New Bag 05/20/2023 10:05 AM EDT 500 mL/hr sodium chloride 0.9% 500 mL IV bolus Intravenous, ONCE, 1 dose, On 05/23/23 at 1100 New Bag 05/23/2023 11:05 AM EDT sodium chloride 0.9% infusion 1,000 mL, at 100 mL/hr, Intravenous, CONTINUOUS, Starting on 04/18/23 at 0745, Until Mon04/19/23 at 2350 Rate/Dose Verify 04/19/2023 6:00 PM EDT 100 mL/hr New Bag 04/19/2023 5:55 PM EDT 1,000 mLs 100 mL/hr Rate/Dose Verify 04/19/2023 4:00 PM EDT 100 mL/ hr sodium chloride 0.9% infusion 100 mL/hr, Intravenous, CONTINUOUS, Starting on 04/23/23 at 1215, Until 04/23/23 at 1948 Rate/Dose Verify 04/23/2023 5:44 PM EDT 100 mL/hr 100 mL/hr Rate/Dose Verify 04/23/2023 3:56 PM EDT 100 mL/hr 100 mL/ hr New Bag 04/23/2023 2:58 PM EDT 100 mL/hr 100 mL/hr sodium chloride 0.9% infusion 75 mL/hr, Intravenous, CONTINUOUS, Starting on 05/20/23 at 1045, Until 05/20/23 at 1459 New Bag 05/20/2023 10:06 AM EDT 75 mL/hr 75 mL/hr sodium chloride 3% bolus from bag 250 mL 250 mL, Intravenous, at 250 mL/hr, Administer over 1 Hours, ONCE, 1 dose, On [place]ac[place] 04/27/23 at 1145, Routine Bolus from Bag 04/27/2023 11:26 AM EDT 250 mLs 250 mL/hr sodium chloride 3% bolus from bag 250 mL 250 mL, Intravenous, at 250 mL/hr, Administer over 1 Hours, ONCE, 1 dose, On [place]acie 05/11/23 at 1315, Routine Bolus from Bag 05/11/2023 12:36 PM EDT 250 mLs 250 mL/hr sodium chloride tablet 1 g 1 g, Per NG tube, 3 TIMES DAILY, First dose on Mon04/28/23 at 1115, Until Discontinued, Routine Given 04/28/2023 8:43 PM EDT 1 g Given 04/28/2023 2:09 PM EDT 1 g Given 04/28/2023 11:35 AM EDT 1 g sodium chloride tablet 1 g 1 g, Per NG tube, 3 TIMES DAILY, First dose on Mon05/10/23 at 1115, Until Discontinued, Routine Given 05/10/2023 8 :43 PM EDT 1 g Given 05/10/2023 2:51 PM EDT 1 g Given 05/10/2023 10:57 AM EDT 1 g sodium chloride tablet 1 g 1 g, Oral, 3 TIMES DAILY, First dose (after last modification) on Mon05/22/23 at 1500, Until Discontinued, Routine Given 05/23/2023 8:47 AM EDT 1 g Given 05/22/2023 9:32 PM EDT 1 g Given 05/22/2023 3:18 PM EDT 1 g sodium chloride tablet 2 g 2 g, Per NG tube, 3 TIMES DAILY, First dose (after last modification) on [facility] 04/29/23 at 0900, Until Discontinued, Routine Given 05/01/2023 9:15 AM EDT 2 g Given 04/30/2023 9:54 PM EDT 2 g Given 04/30/2023 2:06 PM EDT 2 g sodium chloride tablet 2 g 2 g, Per NG tube, 3 TIMES DAILY, First dose (after last modification) on [place]ac[place] 05/11/23 at 0900, Until Discontinued, Routine Given 05/12/2023 8:28 PM EDT 2 g Given 05/12/2023 2:09 PM EDT 2 g Given 05/12/2023 8:25 AM EDT 2 g sodium chloride tablet 2 g 2 g, Per NG tube, 3 TIMES DAILY, First dose (after last modification) on Mon05/15/23 at 1500, Until Discontinued, Routine Given 05/20/2023 4:33 PM EDT 2 g Given 05/20/2023 9:15 AM EDT 2 g Given 05/19/2023 9:06 PM EDT 2 g sodium chloride tablet 2 g 2 g, Oral, 3 TIMES DAILY, First dose (after last modification) on Mon05/21/23 at 1115, Until Discontinued, Routine Given 05/22/2023 8:24 AM EDT 2 g Given 05/21/2023 8:10 PM EDT 2 g Given 05/21/2023 11:21 AM EDT 2 g sodium chloride tablet 3 g 3 g, Per NG tube, 3 TIMES DAILY, First dose (after last modification) on Mon05/13/23 at 0900, Until Discontinued, Routine Given 05/15/2023 8:10 AM EDT 3 g Given 05/14/2023 8:17 PM EDT 3 g Given 05/14/2023 9:04 AM EDT 3 g spironolactone (Aldactone) (2 mg/mL) oral liquid 25 mg 25 mg, Per NG tube, DAILY, First dose on Mon05/09/23 at 1900, Until Discontinued, Routine Given 05/10/2023 6:30 PM EDT 25 mg Given 05/09/2023 6:48 PM EDT 25 mg spironolactone (Aldactone) 100 mg in sterile water 10 mL custom oral liquid 100 mg, Per NG tube, DAILY, First dose (after last modification) on Mon05/16/23 at 1045, Until Discontinued Given 05/19/2023 10:00 AM EDT 100 mg Given 05/18/2023 10:32 AM EDT 100 mg Given 05/17/2023 9:02 AM EDT 100 mg spironolactone (Aldactone) 50 mg in sterile water 10 mL custom oral liquid 50 mg, Per NG tube, DAILY, First dose on Mon05/12/23 at 1700, Until Discontinued Given 05/15/2023 10:04 AM EDT 50 mg Given 05/14/2023 10:40 AM EDT 50 mg Given 05/13/2023 10:15 AM EDT 50 mg tamsulosin (Flomax) capsule 0.4 mg 0.4 mg, Oral, DAILY, First dose on Mon04/25/23 at 1200, Until Discontinued, DO NOT CRUSH GRANULES, ok to open up the capsule and administer granules with water per NGT , Routine Given 05/04/2023 8:22 AM EDT 0.4 mg Given 05/03/2023 8:40 AM EDT 0.4 mg Given 05/02/2023 8:13 AM EDT 0.4 mg tamsulosin (Flomax) capsule 0.4 mg 0.4 mg, Oral, DAILY, First dose on Mon05/25/23 at 1145, Until Discontinued, DO NOT CRUSH OR CHEW, Routine Given 06/02/2023 9:18 AM EDT 0.4 mg Given 06/01/2023 9:19 AM EDT 0.4 mg Given 05/31/2023 9:12 AM EDT 0.4 mg terazosin (Hytrin) capsule 1 mg 1 mg, Per NG tube, NIGHTLY, First dose on Mon05/03/23 at 2100, Until Discontinued, Routine Given 05/07/2023 8:33 PM EDT 1 mg Given 05/06/2023 9:35 PM EDT 1 mg Given 05/05/2023 8:09 PM EDT 1 mg terazosin (Hytrin) capsule 1 mg 1 mg, Per NG tube, 2 TIMES DAILY, First dose (after last modification) on Mon05/08/23 at 0945, Until Discontinued, Routine Given 05/20/2023 9:17 AM EDT 1 mg Given 05/19/2023 9:06 PM EDT 1 mg Given 05/19/2023 8:08 AM EDT 1 mg terazosin (Hytrin) capsule 1 mg 1 mg, Oral, 2 TIMES DAILY, First dose (after last modification) on Mon05/21/23 at 1115, Until Discontinued, Routine Given 06/02/2023 9:34 AM EDT 1 mg Given 06/01/2023 8:36 PM EDT 1 mg Given 06/01/2023 9:17 AM EDT 1 mg thiamine (Vitamin B-1) (100 mg/mL) injection 100 mg 100 mg, Intravenous, DAILY, First dose on Mon04/18/23 at 1330, Until Discontinued, Doses of 100 mg are to be administered as IV push over 5 minutes. Doses of 200 mg or more should be mixed in 50 mL 0.9% Sodium Chloride and infused over 30 minutes. Given 05/01/2023 9:16 AM EDT 100 mg Given 04/30/2023 9:16 AM EDT 100 mg Given 04/29/2023 8:52 AM EDT 100 mg thiamine (Vitamin B-1) (100 mg/mL) injection 100 mg 100 mg, Intravenous, DAILY, First dose on Stacie 05/25/23 at 1145, Until Discontinued, Doses of 100 mg are to be administered as IV push over 5 minutes. Doses of 200 mg or more should be mixed in 50 mL 0.9% Sodium Chloride and infused over 30 minutes. Given 06/02/2023 10:42 AM EDT 100 m g Given 06/01/2023 9:15 AM EDT 100 mg Given 05/31/2023 9:16 AM EDT 100 mg traMADoL (Ultram) tablet 50 mg 50 mg, Per NG tube, EVERY 8 HOURS, First dose on [place] 05/07/23 at 1045, Until Discontinued, Routine Given 05/20/2023 10:19 AM EDT 50 mg Given 05/20/2023 3:24 AM EDT 50 mg Given 05/19/2023 6:48 PM EDT 50 mg traMADoL (Ultram) tablet 50 mg 50 mg, Oral, EVERY 8 HOURS, First dose (after last modification) on 05/21/23 at 1130, Until Discontinued, Routine Given 05/24/2023 7:53 PM EDT 50 mg Given 05/24/2023 3:30 AM EDT 50 mg Given 05/23/2023 6:44 PM EDT 50 mg tube feeding diet 1,300 mL, Per NG tube, CONTINUOUS, Starting on Mon04/19/23 at 1400, Until Mon04/21/23 at 0911, Administer flushes and check residuals per policy, Which tube feed product? Peptamen AF, Strength: FULL Strength, Initial Rate: (mL/hr): 15, Advance by: (mL): 10, Advance every: Q6H, Goal final rate: (mL/hr): 65 Rate/Dose Verify 04/21/2023 7:49 AM EDT 25 mL/hr New Bag 04/21/2023 6:00 AM EDT 1,300 mLs 25 mL/hr New Bag 04/21/2023 12:42 AM EDT 1,300 mLs 15 mL/hr tube feeding diet 1,300 mL, Per NG tube, CONTINUOUS, Starting on 04/21/23 at 1000, Until 04/22/23 at 1002, Administer flushes and check residuals per policy, Which tube feed product? Peptamen AF, Strength: FULL Strength, Initial Rate: (mL/hr): 15, Advance by: (mL): 10, Advance every: Q2H, Goal final rate: (mL/hr): 65 Rate/Dose Verify 04/22/2023 10:00 AM EDT 65 mL/hr Rate/Dose Verify 04/22/2023 8:00 AM EDT 65 mL/h r Rate/Dose Verify 04/22/2023 6:00 AM EDT 65 mL/h r tube feeding diet 1,000 mL, Per NG tube, CONTINUOUS, Starting on Mon04/23/23 at 2030, Until 04/24/23 at 0941, Administer flushes and check residuals per policy, Which tube feed product? Peptamen AF, Initial Rate: (mL/hr): 20, Advance by: (mL): 0, Goal final rate: (mL/hr): 20, Do you want to Hold Tube Feed? No Rate/Dose Verify 04/24/2023 8:00 AM EDT 20 mL/hr Rate/Dose Change 04/23/2023 8:30 PM EDT 20 mL/h r tube feeding diet 1,300 mL, Per NG tube, CONTINUOUS, Starting on Mon04/24/23 at 1030, Until 04/29/23 at 0708, Administer flushes and check residuals per policy, Which tube feed product? Peptamen AF, Strength: FULL Strength, Initial Rate: (mL/hr): 30, Advance by: (mL): 10, Advance every: Q4H, Goal final rate: (mL/hr): 65, Do you want to Hold Tube Feed? No Rate/Dose Verify 04/27/2023 8:00 AM EDT 65 mL /hr Rate/Dose Verify 04/26/2023 6:00 PM EDT 65 mL/h r Rate/Dose Verify 04/26/2023 4:00 PM EDT 65 mL/h r tube feeding diet 1,400 mL, Per NG tube, CONTINUOUS, Starting on 04/29/23 at 0800, Until 04/29/23 at 1028, Administer flushes and check residuals per policy, Which tube feed product? Peptamen AF, Strength: FULL Strength, Initial Rate: (mL/hr): 30, Advance by: (mL): 10, Advance every: Q4H, Goal final rate: (mL/hr): 70, Do you want to Hold Tube Feed? No Rate/Dose Verify 04/29/2023 10:00 AM EDT 70 mL/hr New Bag 04/29/2023 8:00 AM EDT 1,400 mLs 70 mL/hr tube feeding diet 1,400 mL, Per NG tube, CONTINUOUS, Starting on 04/29/23 at 1115, Until 05/01/23 at 1205, Administer flushes and check residuals per policy, Which tube feed product? Peptamen AF, Strength: FULL Strength, Initial Rate: (mL/hr): 30, Advance by: (mL): 10, Advance every: Q4H, Goal final rate: (mL/hr): 70, Do you want to Hold Tube Feed? Yes, What Start date should the Tube Feed be held? 05/01/2023, What time should the Tube Feed be held? 12:00 AM Rate/Dose Verify 05/01/2023 12:00 AM EDT 70 mL/hr Rate/Dose Verify 04/30/2023 11:00 PM EDT 70 mL/ hr Rate/Dose Verify 04/30/2023 10:00 PM EDT 70 mL/ hr tube feeding diet 920 mL, Per NG tube, at 46 mL/hr, CONTINUOUS, Starting on 05/01/23 at 1300, Until 05/01/23 at 2334, Administer flushes and check residuals per policy, Which tube feed product? Peptamen AF, Strength: FULL Strength, Do you want to Hold Tube Feed? Yes, What Start date should the Tube Feed be held? 05/01/2023, What time should the Tube Feed be held? 12:00 AM Rate/Dose Verify 05/01/2023 11:00 PM EDT 46 mL/hr Rate/Dose Verify 05/01/2023 9:00 PM EDT 46 mL/h r Rate/Dose Verify 05/01/2023 8:00 PM EDT 46 mL/h r tube feeding diet 920 mL, Per NG tube, at 46 mL/hr, CONTINUOUS, Starting on Mon05/02/23 at 0030, Until Mon05/03/23 at 1452, Administer flushes and check residuals per policy, Which tube feed product? Peptamen AF, Strength: FULL Strength, Do you want to Hold Tube Feed? No Rate/Dose Verify 05/03/2023 6:00 AM EDT 46 mL/hr Rate/Dose Verify 05/03/2023 4:00 AM EDT 46 mL/h r Rate/Dose Verify 05/03/2023 2:00 AM EDT 46 mL/h r tube feeding diet 1,000 mL, Small Bore, Weighted Tube, CONTINUOUS, Starting on Mon05/03/23 at 1545, Until Mon05/04/23 at 1127, Administer flushes and check residuals per policy, Which tube feed product? Peptamen 1.5, Strength: FULL Strength, Initial Rate: (mL/hr): 20, Advance by: (mL): 10, Advance every: Q6H, Goal final rate: (mL/hr): 50 Rate/Dose Verify 05/04/2023 6:00 AM EDT 50 mL/hr Rate/Dose Verify 05/04/2023 4:00 AM EDT 50 mL/h r Rate/Dose Verify 05/04/2023 2:00 AM EDT 50 mL/h r tube feeding diet 1,000 mL, Small Bore, Weighted Tube, CONTINUOUS, Starting on Stacie 05/04/23 at 1215, Until 05/06/23 at 1211, Administer flushes and check residuals per policy, Which tube feed product? Peptamen 1.5, Strength: FULL Strength, Initial Rate: (mL/hr): 20, Advance by: (mL): 10, Advance every: Q6H, Goal final rate: (mL/hr): 50, Do you want to Hold Tube Feed? Yes, What Start date should the Tube Feed be held? 05/05/2023, What time should the Tube Feed be held? 4:00 AM Rate/Dose Verify 05/05/2023 2:00 AM EDT 50 mL/hr Rate/Dose Verify 05/05/2023 12:00 AM EDT 50 mL/ hr Rate/Dose Verify 05/04/2023 10:00 PM EDT 50 mL/ hr tube feeding diet 1,000 mL, Small Bore, Weighted Tube, CONTINUOUS, Starting on 05/06/23 at 1315, Until 05/07/23 at 0953, Administer flushes and check residuals per policy, Which tube feed product? Peptamen 1.5, Strength: FULL Strength, Initial Rate: (mL/hr): 10, Advance by: (mL): 10, Advance every: Q6H, Goal final rate: (mL/hr): 10, Do you want to Hold Tube Feed? No Rate/Dose Verify 05/07/2023 8:00 AM EDT 10 mL /hr Rate/Dose Verify 05/07/2023 7:00 AM EDT 10 mL/h r Rate/Dose Verify 05/07/2023 6:00 AM EDT 10 mL/h r tube feeding diet 1,000 mL, Small Bore, Weighted Tube, CONTINUOUS, Starting on 05/07/23 at 1045, Until 05/08/23 at 1138, Administer flushes and check residuals per policy, Which tube feed product? Peptamen 1.5, Strength: FULL Strength, Initial Rate: (mL/hr): 10, Advance by: (mL): 10, Advance every: Q4H, Goal final rate: (mL/hr): 50, Do you want to Hold Tube Feed? No Rate/Dose Verify 05/08/2023 10:40 AM EDT 10 mL/h r Rate/Dose Verify 05/08/2023 7:00 AM EDT 10 mL/h r Continued Bag 05/08/2023 6:00 AM EDT 1,000 mLs 10 mL/hr tube feeding diet 250 mL, Per NG tube, 5 TIMES DAILY, First dose on 05/08/23 at 1400, Until Discontinued, For intermittent feeds, initiate slowly giving 150 mL over 45-60 minutes and increasing by 50 ml per feed as tolerated until able to reach goal of 250 ml Administer flushes and check residuals per policy, Which tube feed product? Peptamen 1.5, Strength: FULL Strength, Initial Rate: (mL/hr): 150, Advance by: (mL): 50, Advance every: Other, advance: Advance each feed., Goal final rate: (mL/hr): 250, Additional Information (if any): For intermittent feeds, initiate slowly giving 150 mL over 45-60 minutes and increasing by 50 ml per feed as tolerated until able to reach goal of 250 ml, Flush with 60 ml water before and after each feed to maintain patency and for hydration New Bag 05/10/2023 11:00 AM EDT 250 mLs New Bag 05/10/2023 6:22 AM EDT 250 mLs New Bag 05/09/2023 10:00 PM EDT 250 mLs tube feeding diet 230 mL, Per NG tube, 4 TIMES DAILY, First dose on Mon05/10/23 at 1400, Until Discontinued, Administer flushes and check residuals per policy, Which tube feed product? Nutren 2.0, Strength: FULL Strength, Additional Information (if any): Flush with 60 ml water before and after each feed to maintain patency and for hydration New Bag 05/20/2023 9:00 AM EDT 230 mLs New Bag 05/19/2023 9:00 PM EDT 230 mLs New 05/19/2023 5:00 PM EDT 230 mLs vancomycin (Vancocin) 1.5 gram in sodium chloride 0.9% 500 mL infusion 1.5 g, Intravenous, at 333.3 mL/hr, EVERY 2 HOURS, 2 doses, First dose on Mon04/30/23 at 1600, Last dose on Mon04/30/23 at 1800, Maximum infusion rate is 1 gram/hour. If flushing of the face, neck, upper body, arms, and/or back occurs decrease infusion rate by 50% to reduce the severity of symptoms. This medication may have an associated drug lab level. Please see MAR for scheduled level. Warning Vesicant/Irritant Medication Loading dose of 3 gram (1.5 gram x 2 bags) , Routine, Indication for (Active or Suspected): Pneumonia ([facility]) New Bag 04/30/2023 6:02 PM EDT 1.5 g 333.3 mL/hr Bag 04/30/2023 3:29 PM EDT 1.5 g 333.3 mL/hr vancomycin (Vancocin) 1.5 gram in sodium chloride 0.9% 500 mL infusion 1.5 g, Intravenous, at 333.3 mL/hr, ONCE, 1 dose, On Mon05/01/23 at 1200, Maximum infusion rate is 1 gram/hour. If flushing of the face, neck, upper body, arms, and/or back occurs decrease infusion rate by 50% to reduce the severity of symptoms. This medication may have an associated drug lab level. Please see MAR for scheduled level. Warning Vesicant/Irritant Medication , Routine, Indication for (Active or Suspected): Other (See comment) New Bag 05/01/2023 12:55 PM EDT 1.5 g 333.3 mL/hr vancomycin (Vancocin) 1.5 gram in sodium chloride 0.9% 500 mL infusion 1.5 g, Intravenous, at 333.3 mL/hr, ONCE, 1 dose, On Mon05/02/23 at 1900, Maximum infusion rate is 1 gram/hour. If flushing of the face, neck, upper body, arms, and/or back occurs decrease infusion rate by 50% to reduce the severity of symptoms. This medication may have an associated drug lab level. Please see MAR for scheduled level. Warning Vesicant/Irritant Medication , Routine, Indication for (Active or Suspected): Bacteremia/Sepsis New Bag 05/02/2023 8:37 PM EDT 1.5 g 333.3 mL/hr documented in this encounter Active and Recently Administered Medications Times are shown in EDT. Scheduled Medication Order 05/31/2023 06/01/2023 06/02/2023 amLODIPine (Norvasc) tablet 10 mg 10 mg, Oral, DAILY, First dose on Mon05/26/23 at 1800, Until Discontinued, Routine 911 (Given - Provider: Ceci Taylor RN) 918 (Given - Provider: Fransico Marie RN) 917 (Given - Provider: Fransico Marie, CARSON) aspirin chewable tablet 81 mg(Linked Group 1) 81 mg, Oral, DAILY, First dose on 05/21/23 at 1130, Until Discontinued, Routine 911 (Given - Provider: Ceci Taylor RN) 917 (Given - Provider: Fransico Marie, CARSON) 09 (Given - Provider: Fransico Marie, CARSON) aspirin suppository 300 mg(Linked Group 1) 300 mg, Rectal, DAILY, First dose on 05/21/23 at 1130, Until Discontinued, Routine 0912 (See Alternative - Provider: Ceci Taylor RN) 0918 (See Alternative - Provider: Fransico Marie RN) 0918 (See Alternative - Provider: Fransico Marie RN) bisacodyL (Dulcolax) suppository 10 mg 10 mg, Rectal, DAILY, First dose on Mon05/29/23 at 1045, Until Discontinued, Routine 0900 (Not Given - Provider: Ceci Taylor RN - Reason: See comment - Comment: reported frequent loose stools yesterday) 0900 (Not Given - Provider: Fransico Marie RN - Reason: Patient/family refused) 0900 (Not Given - Provider: Fransico Marie RN - Reason: Patient/family refused) cefTRIAXone (Rocephin) 1 g vial attach to sodium chloride 0.9% 50 mL Mini-Bag Plus (CANCELED) 1 g, Intravenous, EVERY 24 HOURS, First dose on Mon05/26/23 at 0900, Until Discontinued, Administer over 30 Minutes, Indication for (Active or Suspected): Urinary Tract/Pyelonephritis 0909 (New Bag - Provider: Ceci Taylor RN)0939 (Stopped - Provider: Ceci Taylor RN) 0917 (New Bag - Provider: Fransico Marie RN)0947 (Stopped - Provider: Fransico Marie RN) 0919 (New Bag - Provider: Fransico Marie RN)0949 (Stopped - Provider: Fransico Marie RN) chlorthalidone (Hygroton) tablet 25 mg 25 mg, Oral, NIGHTLY, First dose on Mon05/28/23 at 2100, Until Discontinued, Routine 2035 (Given - Provider: Wilmer Sung RN) 2034 (Given - Provider: Wilmer Sung RN) cloNIDine (Catapres) tablet 0.2 mg 0.2 mg, Oral, 3 TIMES DAILY, First dose (after last modification) on Mon05/25/23 at 1500, Until Discontinued, Routine 0912 (Given - Provider: Ceci Taylor RN)1523 (Given - Provider: Lj Fraga RN)2035 (Given - Provider: Wilmer Sung RN) 09 (Given - Provider: Fransico Marie RN)1518 (Given - Provider: Lilibeht Collazo RN)2034 (Given - Provider: Wilmer Sung RN) 0918 (Given - Provider: Fransico Marie RN) enoxaparin (Lovenox) (40 mg/0.4 mL) subcutaneous injection 40 mg 40 mg, Subcutaneous, NIGHTLY, First dose on Stacie 05/25/23 at 2100, Until Discontinued, Routine 2035 (Given - Provider: Wilmer Sung RN) 2033 (Given - Provider: Wilmer Sung RN) ergocalciferoL (vitamin D2) (8,000 units/mL) oral liquid 50,000 Units 50,000 Units, Oral, WEEKLY, First dose (after last modification) on Mon05/22/23 at 0030, Until Discontinued, Routine FLUoxetine (PROzac) capsule 20 mg 20 mg, Oral, DAILY, First dose (after last modification) on 05/21/23 at 1115, Until Discontinued, Routine 0912 (Given - Provider: Ceci Taylor RN) 09 (Given - Provider: Farnsico Marie RN) 0918 (Given - Provider: Fransico Marie RN) hydrALAZINE (Apresoline) tablet 100 mg (CANCELED) 100 mg, Oral, 3 TIMES DAILY, First dose on 05/28/23 at 2100, Until Discontinued, Take with Food, Routine 0915 (Given - Provider: Ceci Taylor RN)1524 (Given - Provider: Lj Fraga RN)2036 (Given - Provider: Wilmer Sung RN) 0917 (Given - Provider: Fransico Marie RN) hydrALAZINE (Apresoline) tablet 50 mg (CANCELED) 50 mg, Oral, 3 TIMES DAILY, First dose (after last modification) on Stacie 06/01/23 at 1500, Until Discontinued, Take with Food, Routine 1518 (Given - Provider: Lilibeth Collazo RN)2033 (Given - Provider: Wilmer Sung RN) 0900 (Not Given - Provider: rFansico Marie RN - Reason: Medication Discontinued) lisinopriL (Zestril) tablet 40 mg 40 mg, Oral, DAILY, First dose (after last modification) on Mon05/26/23 at 0900, Until Discontinued, Routine 911 (Given - Provider: Ceci Taylor RN) 918 (Given - Provider: Fransico Marie, CARSON) 917 (Given - Provider: Fransico Marie, CARSON) polyethylene glycoL (Miralax) packet 17 g 17 g, Oral, DAILY, First dose on Mon05/23/23 at 0900, Until Discontinued, Routine 899 (Given - Provider: Ceci Taylor RN) 917 (Not Given - Provider: Fransico Marie RN - Reason: Patient/family refused) 918 (Given - Provider: Fransico Marie, CARSON) QUEtiapine (SEROquel) tablet 75 mg 75 mg, Oral, NIGHTLY, First dose (after last modification) on Mon05/30/23 at 1900, Until Discontinued, Hold for RASS (-)2 to (-)5., Routine 1841 (Given - Provider: Lj Fraga RN) 2034 (Given - Provider: Wilmer Sung RN) senna-docusate (Pericolace) 8.6-50 mg per tablet 1 tablet 1 tablet, Oral, 2 TIMES DAILY, First dose on Mon05/23/23 at 0900, Until Discontinued, Routine 911 (Given - Provider: Ceci Taylor RN)2035 (Given - Provider: Wilmer Sung, CARSON) 918 (Given - Provider: Fransico Marie, CARSON)2034 (Given - Provider: Wilmer Sung RN) 917 (Given - Provider: Fransico Marie, CARSON) tamsulosin (Flomax) capsule 0.4 mg 0.4 mg, Oral, DAILY, First dose on Mon05/25/23 at 1145, Until Discontinued, DO NOT CRUSH OR CHEW, Routine 911 (Given - Provider: Ceci Taylor RN) 918 (Given - Provider: Fransico Marie, CARSON) 917 (Given - Provider: Fransico Marie, CARSON) terazosin (Hytrin) capsule 1 mg 1 mg, Oral, 2 TIMES DAILY, First dose (after last modification) on Mon05/21/23 at 1115, Until Discontinued, Routine 0915 (Given - Provider: Ceci Taylor RN)2037 (Given - Provider: Wilmer Sung, RN) 0917 (Given - Provider: Fransico Marie, RN)2035 (Given - Provider: Wilmer Sung, RN) 0934 (Given - Provider: Fransico Marie, RN) thiamine (Vitamin B-1) (100 mg/mL) injection 100 mg 100 mg, Intravenous, DAILY, First dose on Stacie 05/25/23 at 1145, Until Discontinued, Doses of 100 mg are to be administered as IV push over 5 minutes. Doses of 200 mg or more should be mixed in 50 mL 0.9% Sodium Chloride and infused over 30 minutes. 0916 (Given - Provider: Ceci Taylor RN) 0915 (Given - Provider: Fransico Marie, CARSON) 1042 (Given - Provider: Fransico Marie, CARSON) PRN Medication Order 05/31/2023 06/01/2023 06/02/2023 acetaminophen (Tylenol) tablet 975 mg 975 mg, Oral, EVERY 6 HOURS PRN, Starting on 05/21/23 at 1037, Until Mon06/02/23 at 1453, Pain, Fever, Maximum dose of acetaminophen is 4,000 mg from all sources in 24 hours. When ordered for pain, acetaminophen should be given even when other ordered pain medications are indicated., Routine bisacodyL (Dulcolax) suppository 10 mg(Linked Group 2) 10 mg, Rectal, DAILY PRN, Starting on 05/21/23 at 1024, Until Mon06/02/23 at 1453, Constipation, Give if no BM within last 24 hr and rectal fullness is reported or assessed. Give concomitantly with any scheduled bowel medications ordered. , Routine bisacodyl EC (Dulcolax) tablet 10 mg(Linked Group 2) 10 mg, Oral, 2 TIMES DAILY PRN, Starting on 05/21/23 at 1024, Until Mon06/02/23 at 1453, Constipation, Give if no BM after 24 hr after prior interventions. BM expected in 6-8 hours. If BM desired sooner, use next ordered agent. Give concomitantly with any scheduled bowel medications ordered., Routine camphor-methyl salicyl-menthoL (Bengay Ultra Strength) 4-30-10 % cream Topical (Top), 2 TIMES DAILY PRN, hip pain, Starting on Stacie 05/25/23 at 1430, Until Mon06/02/23 at 1453, Application Site: hips carboxymethylcellulose (Refresh Plus) 0.5 % ophthalmic drops 1 drop 1 drop, Both Eyes, 3 TIMES DAILY PRN, Starting on 05/14/23 at 0930, Until Mon06/02/23 at 1453, Dry Eyes, Routine enalaprilat (Vasotec) (1.25 mg/mL) injection 1.25 mg 1.25 mg, Intravenous, Administer over 5 Minutes, EVERY 6 HOURS PRN, Starting on 05/21/23 at 1024, Until Mon06/02/23 at 1453, Hypertension, - Give when SBP is greater than 160 mmHg. - Use labetalol first, then enalaprilat., Routine haloperidoL lactate (Haldol) (5 mg/mL) injection 2 mg 2 mg, Intravenous, EVERY 6 HOURS PRN, Starting on 05/21/23 at 1239, Until Mon06/02/23 at 1453, Agitation, If medication ordered subcutaneously, do not administer more than 3 mL as a single injection., Routine ipratropium-albuteroL (Duoneb) 0.5 mg-3 mg(2.5 mg base)/3 mL nebulizer solution 3 mL 3 mL, Nebulization, EVERY 4 HOURS PRN, Starting on 05/08/23 at 1630, Until Mon06/02/23 at 1453, Wheezing, Routine lactulose (Chronulac) (0.67 gram/mL) oral liquid 20 g(Linked Group 2) 20 g, Oral, DAILY PRN, Starting on 05/21/23 at 1024, Until Mon06/02/23 at 1453, Constipation, Give if no BM 24 hr after prior interventions or if BM is desired within 2 hr. Give concomitantly with any scheduled bowel medications ordered, Routine lactulose (Chronulac) (0.67 gram/mL) oral liquid 20 g(Linked Group 2) 20 g, Oral, DAILY PRN, Starting on 05/21/23 at 1024, Until Mon06/02/23 at 1453, Constipation, Give an additional (2nd) dose of lactulose 2 hr after 1st dose if still no BM. Disregard if 1st dose of lactulose not ordered. Give concomitantly with any scheduled bowel medications ordered. , Routine magnesium citrate oral liquid 296 mL(Linked Group 2) 296 mL, Oral, ONCE PRN, 1 dose, Starting on Mon05/21/23 at 1024, Until Mon06/02/23 at 1453, Constipation, Give if no BM 2 hr after previous interventions. If 2 hr after mag citrate there is still no BM, see order for tap water enema, if placed. Give concomitantly with any scheduled bowel medications ordered., Routine niCARdipine (Cardene) (0.2 mg/mL) in sodium chloride 200 mL infusion 0-15 mg/hr (0-75 mL/hr), Intravenous, CONTINUOUS PRN, Starting on Mon05/21/23 at 1523, Until Mon06/02/23 at 1453, control blood pressure, Administer if inadequate blood pressure control in 30 minutes despite labetalol and enalaprilat Titrate to systolic blood pressure (SBP) less than 160 mmHg. Start at 5 mg/hr. Increase/decrease by 2.5 mg/hr every 5 minutes until goal reached. Do not exceed 15 mg/hr. Monitor vital signs every 15 minutes for 1 hour after initiation of the niCARdipine infusion and after a dose changes, then every 30 minutes. Rotate IV site every 12 hours., STAT 1453 (Due: Stopped) ondansetron (pf) (Zofran) (2 mg/mL) injection 4 mg 4 mg, Intravenous, EVERY 8 HOURS PRN, Starting on Mon05/28/23 at 1123, Until Mon06/02/23 at 1453, Nausea, Vomiting 1428 (Given - Provider: Lj Fraga, CARSON) 0753 (Given - Provider: Fransico Marie RN) polyethylene glycoL (Miralax) packet 17 g(Linked Group 2) 17 g, Oral, DAILY PRN, Starting on Mon05/21/23 at 1024, Until Mon06/02/23 at 1453, Constipation, Give if no BM within last 24 hr. Give concomitantly with any scheduled bowel medications ordered. , Routine potassium chloride ER (Klor-Con M) crystal tablet 20 mEq(Linked Group 3) 20 mEq, Per NG tube, EVERY 4 HOURS PRN, Starting on Mon05/21/23 at 1038, Until Mon06/02/23 at 1453, hypokalemia, Administer for serum potassium (mMol/L) of 3.9 - 4 potassium chloride ER particle/crystal tablets (Klor-Con M) may be broken in half and each half swallowed separately. Tablets can be dissolved in ~4 ounces of water; allow ~2 minutes to dissolve, stir well and drink immediately. Do not crush, chew, or suck on tablet., Routine potassium chloride ER (Klor-Con M) crystal tablet 40 mEq(Linked Group 3) 40 mEq, Oral, EVERY 4 HOURS PRN, Starting on 05/21/23 at 1038, Until Mon06/02/23 at 1453, hypokalemia, Administer for serum potassium (mMol/L) of 3.3 - 3.8 potassium chloride ER particle/crystal tablets (Klor-Con M) may be broken in half and each half swallowed separately. Tablets can be dissolved in ~4 ounces of water; allow ~2 minutes to dissolve, stir well and drink immediately. Do not crush, chew, or suck on tablet., Routine QUEtiapine (SEROquel) tablet 12.5 mg 12.5 mg, Oral, 3 TIMES DAILY PRN, Starting on 05/21/23 at 1024, Until Mon06/02/23 at 1453, Agitation, Routine senna-docusate (Pericolace) 8.6-50 mg per tablet 2 tablet 2 tablet, Oral, 2 TIMES DAILY PRN, Starting on 05/21/23 at 1039, Until Mon06/02/23 at 1453, Constipation, Hold for loose stool. , Routine simethicone (Mylicon) (40 mg/0.6mL) oral liquid 40 mg 40 mg, Oral, EVERY 6 HOURS PRN, Starting on Stacie 05/25/23 at 1430, Until Mon06/02/23 at 1453, Cramping, Routine sodium chloride (NebuSal) 3 % nebulizer solution 4 mL 4 mL, Nebulization, EVERY 4 HOURS PRN, Starting on 05/08/23 at 1630, Until Mon06/02/23 at 1453, Cough, Routine Linked Groups Order Group 1: aspirin suppository 300 mgJump to med 300 mg, Rectal, DAILY, First dose on Mon05/21/23 at 1130, Until Discontinued, Routine Or aspirin chewable tablet 81 mgJump to med 81 mg, Oral, DAILY, First dose on 05/21/23 at 1130, Until Discontinued, Routine Group 2: polyethylene glycoL (Miralax) packet 17 gJump to med 17 g, Oral, DAILY PRN, Starting on 05/21/23 at 1024, Until Mon06/02/23 at 1453, Constipation, Give if no BM within last 24 hr. Give concomitantly with any scheduled bowel medications ordered. , Routine And bisacodyL (Dulcolax) suppository 10 mgJump to med 10 mg, Rectal, DAILY PRN, Starting on 05/21/23 at 1024, Until Mon06/02/23 at 1453, Constipation, Give if no BM within last 24 hr and rectal fullness is reported or assessed. Give concomitantly with any scheduled bowel medications ordered. , Routine And bisacodyl EC (Dulcolax) tablet 10 mgJump to med 10 mg, Oral, 2 TIMES DAILY PRN, Starting on 05/21/23 at 1024, Until Mon06/02/23 at 1453, Constipation, Give if no BM after 24 hr after prior interventions. BM expected in 6-8 hours. If BM desired sooner, use next ordered agent. Give concomitantly with any scheduled bowel medications ordered., Routine And lactulose (Chronulac) (0.67 gram/mL) oral liquid 20 gJump to med 20 g, Oral, DAILY PRN, Starting on 05/21/23 at 1024, Until Mon06/02/23 at 1453, Constipation, Give if no BM 24 hr after prior interventions or if BM is desired within 2 hr. Give concomitantly with any scheduled bowel medications ordered, Routine And lactulose (Chronulac) (0.67 gram/mL) oral liquid 20 gJump to med 20 g, Oral, DAILY PRN, Starting on 05/21/23 at 1024, Until Mon06/02/23 at 1453, Constipation, Give an additional (2nd) dose of lactulose 2 hr after 1st dose if still no BM. Disregard if 1st dose of lactulose not ordered. Give concomitantly with any scheduled bowel medications ordered. , Routine And magnesium citrate oral liquid 296 mLJump to med 296 mL, Oral, ONCE PRN, 1 dose, Starting on 05/21/23 at 1024, Until Mon06/02/23 at 1453, Constipation, Give if no BM 2 hr after previous interventions. If 2 hr after mag citrate there is still no BM, see order for tap water enema, if placed. Give concomitantly with any scheduled bowel medications ordered., Routine And Tap water enema (CANCELED) Routine, DAILY PRN, Starting on 05/21/23 at 1024, Until Specified, Give if no BM in at least 24 hr and all other ordered bowel regimen medications have been unsuccessful. Give concomitantly with any scheduled bowel medications ordered. Group 3: potassium chloride ER (Klor-Con M) crystal tablet 40 mEqJump to med 40 mEq, Oral, EVERY 4 HOURS PRN, Starting on 05/21/23 at 1038, Until Mon06/02/23 at 1453, hypokalemia, Administer for serum potassium (mMol/L) of 3.3 - 3.8 potassium chloride ER particle/crystal tablets (Klor-Con M) may be broken in half and each half swallowed separately. Tablets can be dissolved in ~4 ounces of water; allow ~2 minutes to dissolve, stir well and drink immediately. Do not crush, chew, or suck on tablet., Routine Or potassium chloride ER (Klor-Con M) crystal tablet 20 mEqJump to med 20 mEq, Per NG tube, EVERY 4 HOURS PRN, Starting on 05/21/23 at 1038, Until Mon06/02/23 at 1453, hypokalemia, Administer for serum potassium (mMol/L) of 3.9 - 4 potassium chloride ER particle/crystal tablets (Klor-Con M) may be broken in half and each half swallowed separately. Tablets can be dissolved in ~4 ounces of water; allow ~2 minutes to dissolve, stir well and drink immediately. Do not crush, chew, or suck on tablet., Routine documented in this encounter Care Teams [employer] Relationship Specialty Start Date End Date Fransico Remy MD [address] [place] [id number] PCP - General Emergency Medicine 04/18/23 08/30/23 documented as of this encounter
--- OUTSIDE RECORDS SUMMARY | 2024-02-28 13:46 | XMS_ITS | Encounter Summary ---
Author Organization Formerly [facility] [place] [address] Care Team Providers Care Outdoor Studies Director Name Role Phone Fransico Remy MD Primary Care Provider [phone] Encounter Details Date Type Department Care Team (Late st Contact Info) Description 05/29/2023 Ophth [place] [address] Nahum Sepulveda [facility] [place] [address] Social History Tobacco Use Types Packs/Day Years Used Date Smoking Tobacco: Unknown Alcohol Use Standard Drinks/Week Comments Defer 0 (1 standard drink = 0.6 oz pur e alcohol) [facility] Utilities Answer Date Recorded In the past 12 months has e [employer] - On[employer], gas, oil, or water mParticle threatened to shut off services in your [...] 11:00 AM EDT [place] [address] Joie Motley PA [facility] [place] [address] documented as of this encounter Visit Diagnoses Not on filedocumented in this encounter Care Teams Outdoor Studies Director Relationship Specialty Start Date End Date Fransico Remy MD [address] [place] [id number] PCP - General Emergency Medicine 04/18/23 08/30/23 documented as of this encounter
--- OUTSIDE RECORDS SUMMARY | 2024-02-28 13:46 | XMS_ITS | Encounter Summary ---
Author Organization [facility] Address [facility] [place] [address] Care Team Providers Care Client Service Manager Name Role Phone Fransico Remy MD Primary Care Provider [phone] Reason for Visit * Auth/Cert (Routine) Specialty Diagnoses / Procedures Referred By Dannie lozano Referred To Contact Diagnoses ICH (intracerebral hemorrhage) ICH Hellen Smith MD [facility] [place] [address] [facility] Referral ID Status Reason Start Date Expiration Date Visits Re quested Visits Authorized [id number] 1 1 Encounter Details Date Type Department Care Team (Late st Contact Info) Description 04/20/2023 3:37 AM EDT Anesthesia Event XRay at [address] [place] [address] Dorina Card MD Anesthesia Record Procedure Summary Procedure Name Responsible [...] exte rnal catheter applied 05/31/23 1400 by Lj Fraga RN documented in this encounter Social History [...] Patient location during procedure: NSCU Performed by: Resident/STOPE MINER: Dorina Card MD Other anesthesia staff: Satish [...] 11:00 AM EDT Office [place] [address] Joie Motley PA [facility] [place] [address] documented as of this encounter Procedures Procedure [...] location during procedure: ?? NSCU Performed by: Resident/STOPE MINER: Dorina Card MD Other anesthesia staff: Satish [...] mg documented in this encounter Care Teams Client Service Manager Relationship Specialty Start Date End Date Fransico Remy MD [address] [place] [id number] PCP - General Emergency Medicine 04/18/23 08/30/23 documented as of this encounter
--- OUTSIDE RECORDS SUMMARY | 2024-02-28 13:46 | XMS_ITS | Encounter Summary ---
Author Organization [facility] Address [facility] [place] [address] Care Team Providers Care Furnace Loader Name Role Phone Fransico Remy MD Primary Care Provider [phone] Encounter Details Date Type Department Care Team (Late st Contact Info) Description 04/18/2023 Telephone [place] [address] Chinyere Cruz MD [facility] [place] [address] Social History Tobacco Use Types Packs/Day Years [...] 11:00 AM EDT Office [place] [address] Joie Motley PA [facility] [address] [place] [address] documented as of this encounter Visit Diagnoses Not on filedocumented in this encounter Care Teams Furnace Loader Relationship Specialty Start Date End Date Fransico Remy MD [address] [place] [id number] PCP - General Emergency Medicine 04/18/23 08/30/23 documented as of this encounter
--- OUTSIDE RECORDS SUMMARY | 2024-02-28 13:46 | XMS_ITS | Encounter Summary ---
Author Organization Formerly [facility] Address [facility] [place] [address] Care Team Providers Care Screen Tender Name Role Phone Fransico Remy MD Primary Care Provider [phone] Encounter Details Date Type Department Care Team (Late st Contact Info) Description 04/18/2023 3:10 AM EDT Ancillary Procedure Radiology Library [place] [facility] [place] [address] Nayana Barker MD [facility] [place] [address] Social History Tobacco Use Types Packs/Day Years [...] 11:00 AM EDT Office Visit Neurology at [facility] [place] [address] Joie Motley PA [facility] [place] [address] documented as of this encounter Procedures Procedure Name Priority Date/Time Associated Diagnosis Comments FILM LIBRARY STORAGE ONLY CT HEAD AND SPINE Routine 04/18/2023 3:06 AM EDT documented in this encounter Results * Film Library- Storage Only CT Head And Spine (04/18/2023 3:06 AM EDT) Narrative [facility] - 04/18/2023 3:06 AM EDT This exam is auto-finalizing. It's purpose is for storage only. Nayana Barker MD IMG FILM LIBRARY ORD ERABLES Performing Organization Address City/State/[facility] Co de Phone Number [place], [place] documented in this encounter Visit Diagnoses Not on filedocumented in this encounter Care Teams Screen Tender Relationship Specialty Start Date End Date Fransico Remy MD [address] [place] [id number] PCP - General Emergency Medicine 04/18/23 08/30/23 documented as of this encounter
--- OUTSIDE RECORDS SUMMARY | 2024-02-28 13:46 | XMS_ITS | Encounter Summary ---
Author Organization [facility] Address [facility] [place] [address] Care Team Providers Care Applications Chemist Name Role Phone Fransico Remy MD Primary Care Provider [phone] Encounter Details Date Type Department Care Team (Late Contact Info) Description 04/18/2023 3:05 AM EDT Ancillary Procedure Radiology Library at [facility] [place] [address] Nayana Barker MD [facility] [place] [address] Social History Tobacco Use Types Packs/Day Years [...] 11:00 AM EDT Office Visit Neurology at [facility] [place] [address] Joie Motley PA [facility] [place] [address] documented as of this encounter Procedures Procedure Name Priority Date/Time Associated Diagnosis Comments FILM LIBRARY STORAGE ONLY CT HEAD Routine 04/18/2023 3:03 AM EDT documented in this encounter Results * Film Library- Storage Only CT Head (04/18/2023 3:03 AM EDT) Narrative [facility] - 04/18/2023 3:03 AM EDT This exam is auto-finalizing. It's purpose is for storage only. Nayana Barker MD IMG FILM LIBRARY ORD ERABLES Performing Organization Address City/State/[facility] Co de Phone Number [place], [place] documented in this encounter Visit Diagnoses Not on filedocumented in this encounter Care Teams Applications Chemist Relationship Specialty Start Date End Date Fransico Remy MD [address] [place] [address] PCP - General Emergency Medicine 04/18/23 08/30/23 documented as of this encounter
--- OUTSIDE RECORDS SUMMARY | 2024-02-28 13:46 | XMS_ITS | Encounter Summary ---
Author Organization [facility] Address [facility] [place] [address] Care Team Providers Care Deputy Juvenile Officer Name Role Phone Fransico Remy MD Primary Care Provider [phone] Encounter Details Date Type Department Care Team (Late st Contact Info) Description 04/18/2023 External [place] [phone] Social History Tobacco Use Types Packs/Day Years Used Date Smoking Tobacco: Unknown Alcohol Use Standard Drinks/Week Comments Defer 0 (1 standard drink = 0.6 oz pur e alcohol) [facility] Utilities Answer Date Recorded In the past [...] 11:00 AM EDT Office [place] [address] Joie Motley PA [facility] [place] [address] documented as of this encounter Procedures Procedure Name Priority Date/Time Associated Diagnosis Comments ECG SCAN Routine 04/18/2023 3:30 AM EDT documented in this encounter Results * Scan Doc: ECG (04/18/2023 3:30 AM EDT) Historical Provider MEDIA MGR SCAN EX T ORDR/RSLT documented in this encounter Visit Diagnoses Not on filedocumented in this encounter Care Teams Deputy Juvenile Officer Relationship Specialty Start Date End Date Fransico Remy MD [address] [place] [address] PCP - General Emergency Medicine 04/18/23 08/30/23 documented as of this encounter
--- OUTSIDE RECORDS SUMMARY | 2024-02-28 13:46 | XMS_ITS | Encounter Summary ---
Author Organization [facility] Address [facility] [place] [address] Care Team Providers Care Bulk Folder Name Role Phone Fransico Remy MD Primary Care Provider [phone] Encounter Details Date Type Department Care Team (Late Contact Info) Description 04/18/2023 5:45 AM EDT Ancillary Procedure Radiology Library at [facility] [place] [address] Naynaa Barker MD [facility] [place] [address] Social History Tobacco Use Types Packs/Day Years [...] 11:00 AM EDT Office Visit Neurology at [facility] [place] [address] Joie Motley PA [facility] [place] [address] documented as of this encounter Procedures Procedure Name Priority Date/Time Associated Diagnosis Comments FILM LIBRARY STORAGE ONLY DX CHEST Routine 04/18/2023 5:42 AM EDT documented in this encounter Results * Film Library- Storage Only DX Chest (04/18/2023 5:42 AM EDT) Narrative [facility] - 04/18/2023 5:42 AM EDT This exam is auto-finalizing. It's purpose is for storage only. Nayana Barker MD IMG FILM LIBRARY ORD ERABLES Performing Organization Address City/State/[facility] Co de Phone Number [place], [place] documented in this encounter Visit Diagnoses Not on filedocumented in this encounter Care Teams Bulk Folder Relationship Specialty Start Date End Date Fransico Remy MD [address] [place] [id number] PCP - General Emergency Medicine 04/18/23 08/30/23 documented as of this encounter
[2024-02-28 16:00] LABS: Anion Gap 5.9 mmol/L (3-11); BUN 28 mg/dL (7-18); CO2 30.1 mmol/L (21.0-32.0); CREATININE 1.5 mg/dL (0.70-1.30); Calcium 9.3 mg/dL (8.5-10.1); Chloride 106 mmol/L (98-107); Estimated GFR 51.03 (mL/min/1.73m2); Glucose 112 mg/dL (74-106); Potassium 3.9 mmol/L (3.5-5.1); Sodium 142 mmol/L (136-145)
[2024-02-28 16:43] LABS: Hemoglobin A1C 5.6 % (<5.7)
== END 2024-02-28 13:27 | disposition home or self-care (01) ==
LOC: NCHCN 13:26
PROVIDERS: PCP Student in an Organized Health Care Education/Training Program; Visit Provider Student in an Organized Health Care Education/Training Program
DX: R73.03 Prediabetes (principal); I10 Essential (primary) hypertension
CPT/HCPCS: 80048; 83036

== ENCOUNTER → 2024-03-13 08:58 | Outpatient (BNVA) | payer MEDICARE, MEDICAID, SELFPAY | PROVIDERS: PCP Student in an Organized Health Care Education/Training Program; Visit Provider Nurse Practitioner Gerontology | DX: R33.8 Other retention of urine (principal) | CPT/HCPCS: 51702 ==

== ENCOUNTER → 2024-04-10 07:58 | Outpatient (BNVA) | payer MEDICARE, MEDICAID, SELFPAY | PROVIDERS: PCP Student in an Organized Health Care Education/Training Program; Visit Provider Nurse Practitioner Gerontology | DX: Z46.6 Encounter for fitting and adjustment of urinary device (principal); R33.8 Other retention of urine | CPT/HCPCS: 51702 ==

== ENCOUNTER → 2024-05-08 09:03 | Outpatient (BNVA) | payer MEDICARE, MEDICAID, SELFPAY | PROVIDERS: PCP Student in an Organized Health Care Education/Training Program; Visit Provider Nurse Practitioner Gerontology | DX: R33.9 Retention of urine, unspecified (principal) | CPT/HCPCS: 99213 ==

== ENCOUNTER → 2024-05-15 11:02 | Outpatient (BNVA) | payer MEDICARE, MEDICAID, SELFPAY | PROVIDERS: PCP Student in an Organized Health Care Education/Training Program; Referring Provider Student in an Organized Health Care Education/Training Program; Visit Provider Nurse Practitioner Gerontology | DX: R33.9 Retention of urine, unspecified (principal); R39.9 Unspecified symptoms and signs involving the genitourinary system; R60.0 Localized edema; R35.1 Nocturia | CPT/HCPCS: 51798; 99213; 99214 ==

== ENCOUNTER 2024-09-27 15:12 | Outpatient (REF) | payer MEDICARE, MEDICAID, SELFPAY ==
[2024-09-27 15:50] LABS: Abs Immature Grans 0.02 10^3/uL (0.0-0.06); HCT 37.7 % (40.0-50.0); HGB 12.2 g/dL (13.5-17.5); Immature Grans % 0.4 %; MCH 30.4 pg (27.0-33.0); MCHC 32.4 % (32.0-36.0); MCV 94 fL (80-95); MPV 11.5 fL (8.0-11.0); Platelet Count 164 10^3/uL (130-400); RBC 4.01 10^6/uL (4.36-5.78); RDW 13.2 % (11.8-14.1); RDW-SD 46.0 fL; WBC 5.52 10^3/uL (4.4-10.8)
[2024-09-27 16:21] LABS: Hemoglobin A1C 5.9 % (<5.7)
[2024-09-27 16:40] LABS: Anion Gap 10.7 mmol/L (3-11); BUN 29 mg/dL (7-18); CO2 26.3 mmol/L (21.0-32.0); Calcium 9.0 mg/dL (8.5-10.1); Calculated LDL 61 mg/dL (<100); Chloride 102 mmol/L (98-107); Cholesterol 120 mg/dL (<200); Estimated GFR 51.03 (mL/min/1.73m2); Glucose 115 mg/dL (74-106); HDL Cholesterol 44 mg/dL (>or=40); Magnesium 2.1 mg/dL (1.8-2.4); Potassium 4.2 mmol/L (3.5-5.1); Sodium 139 mmol/L (136-145); Triglyceride 79 mg/dL (<150)
== END 2024-09-27 15:13 | disposition home or self-care (01) ==
LOC: NCHCN 15:12
PROVIDERS: PCP Student in an Organized Health Care Education/Training Program; Visit Provider Student in an Organized Health Care Education/Training Program
DX: R73.03 Prediabetes (principal); I10 Essential (primary) hypertension; E78.5 Hyperlipidemia, unspecified
CPT/HCPCS: 80048; 80061; 83036; 83735; 85025